=== PATIENT | female | born 1955 | race Caucasian/White ===

== ENCOUNTER 2022-11-25 08:56 | Outpatient (OUT) | payer MEDICARE, OTHER, SELFPAY ==
--- NOTE | 2022-11-25 09:30 | VEIN_ITS ---
Patient: ALBANIA CESAR Exam Date: 11/25/2022 : 1955 Gender:F Ordering : Non-Staff Physician Admission #: [id number] Family : Order #: [id number] CLICK HERE TO VIEW EXAM RADIOLOGY REPORT PROCEDURE: FACILITY EST COMPREHENSIVE VEIN CENTER - OFFICE VISIT INITIAL COMPARISON: None. PROGRESS NOTES: [age] year old female who presents with a 40 year history of leg pain, swelling, muscle cramping, edema, dilated veins. The patient's left leg symptoms are worse than the right. There has been a progression of symptoms over time. This increases with prolonged leg dependency. The patient describes an improvement with rest and elevation. The patient denies any signs and symptoms to suggest arterial ischemia. The patient describes a family history of varicose veins on maternal side. The patient has drinking and smoking history of occasional alcohol consumption and remote history of smoking. Patient has a past medical history significant for obesity, cellulitis and abscess, lymphedema bilateral legs. The patient denies a history of deep venous thrombus or pulmonary embolus. See separate history and physical for medication list. No prior treatment for varicose or spider veins. Prior treatment included use of compression stockings. After review of nurse notes, history and physical exam I discussed at length the pathophysiology of venous hypertension and possible treatments, therapies and strategies available. We discussed at length the importance of elevating the lower extremities above the level of the heart, increased physical activity and compression stocking use. Ultrasound venous reflux study performed today was discussed at length with the patient. The report demonstrates abnormally dilated and incompetent great saphenous and anterior accessory saphenous veins bilaterally. Dilated incompetent nailing machine feeder veins and numerous incompetent branch saphenous varicosities bilaterally. PHYSICAL EXAM: The right leg demonstrates multiple varicosities, a few spider veins, no ulceration, extreme edema, no skin discoloration. The left leg demonstrates multiple varicosities, a few spider veins, distal lower extremity ulceration, extreme edema, significant distal lower extremity skin discoloration. Both thighs, legs and feet were symmetrically warm to the touch. Good posterior tibial and dorsalis pedis pulses were present bilaterally. IMPRESSION: 1. Bilateral lower extremity venous insufficiency 2. Bilateral lower extremity varicose veins 3. Marked bilateral lower extremity subcutaneous edema 4. No flow significant arterial disease 5. CEAP: C5, EC, AP, DC PLAN: 1. Continued use of compression stockings 2. Elevated legs and increased physical activity symptomatic relief 3. Patient recently began working with lymphedema clinic. We will out time for some success with the lymphedema clinic to decreased size of legs and patient's extreme edema prior to attempting any vein procedures due to current limited visibility of the veins. 4. Endovenous laser ablation of bilateral great saphenous and anterior accessory saphenous veins. Endovenous laser ablation of distal left lower extremity nailing machine feeder vein(s). Microfoam chemical ablation of incompetent branch saphenous varicosities. Sclerotherapy. Nurse notes, history and physical were reviewed and confirmed, see attached forms. The nurse was present throughout the physical exam and consultation Dictated by: Ronald Millard M.D. on 11/25/2022 at 12:27 Approved by: Ronald Millard M.D. on 11/25/2022 at 12:39
--- NOTE | 2022-11-25 09:30 | VEIN_ITS ---
Patient: ALBANIA CESAR Exam Date: 11/25/2022 : 1955 Gender:F Ordering : Non-Staff Physician Admission #: [id number] Family : Order #: [id number] CLICK HERE TO VIEW EXAM RADIOLOGY REPORT PROCEDURE: VC EXT VENOUS REFLUX LINA LMTD COMPARISON: None. INDICATIONS: Pain due to varicose veins of bilateral legs I83.813 TECHNIQUE: Duplex imaging of the lower extremity to assess the deep and superficial venous system for the presence of deep or superficial venous incompetence and to document the location and severity of disease. The study includes evaluation of the great saphenous vein (GSV), anterior accessory saphenous vein (AASV) and small saphenous vein (SSV). Patient scanned in reverse Trendelenburg and standing. FINDINGS: RIGHT LOWER EXTREMITY: Saphenofemoral Junction Reflux: Yes 11.0mm 4.0 sec GSV: Diam (mm) Reflux/ Time (sec) Proximal Thigh 9.0 Yes 4.2 Mid Thigh 7.2 Yes 3.0 Distal Thigh 6.8 Yes 2.0 Prox Calf 3.2 Yes 1.2 Mid Calf 3.5 No Saphenopopliteal Junction Reflux: 2.7mm No SSV: Proximal Calf 1.8 Yes 1.1 Mid Calf N/A AASV: Proximal Thigh 6.2 Yes 4.2 Mid Thigh 8.3 Yes 2.9 Distal Thigh Thrombi: No acute or chronic thrombus visualized Compressibility: Normal Flow: Normal Preforator: Dist/med calf 3.4mm with 0s reflux. Difficult to visualize due to marked edema Tech Note: Incompetent SFJ, GSV, and AASV. Unable to follow SSV due to size and edema. Patent varicose vein prox/med calf 12.7mm with 2.0s reflux. Patent varicose vein prox/post calf 4.2mm with 0.9s reflux. Patent varicose vein dist/med thigh 10.2mm with 2.7s reflux. LEFT LOWER EXTREMITY: Saphenofemoral Junction Reflux: Yes 12.8 mm 3.8 sec GSV: Diam (mm) Reflux/Time (sec) Proximal Thigh 9.7 Yes 3.0 Mid Thigh 10.7 Yes 2.4 Distal Thigh 8.8 No Prox Calf 8.3 No Mid Calf 6.4 Yes 2.7 Saphenopopliteal Junction Relux: 4.4 mm No SSV: Proximal Calf N/A Mid Calf N/A AASV: Proximal Thigh 11.3 Yes 1.5 Mid Thigh 8.6 Yes 2.3 Distal Thigh Thrombi: No acute or chronic thrombus visualized Compressibility: Normal Flow: 1.8s reflux visualized at CFV Senior Finance Manager:Dist/med calf 6.2mm with 0.8s reflux. Dist/med calf 5.7mm with 1.4s reflux. Mid/med calf 6.7mm with 2.0s reflux. Tech Note: Incompetent SFJ, GSV, and AASV. Unable to follow SSV due to size and edema. Patent varicose vein prox/med calf 4.7mm with 2.4s reflux. Patent varicose vein medial knee 9.3mm with 1.9s reflux. Patent varicose vein mid/ant thigh 7.8mm with 1.6s reflux. CONCLUSION: 1. Limited examination due to patient body habitus and marked subcutaneous edema. 2. Abnormally dilated and incompetent great saphenous and anterior accessory saphenous veins bilaterally. 3. 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 Dictated by: Ronald Millard M.D. on 11/25/2022 at 10:29 Approved by: Ronald Millard M.D. on 11/25/2022 at 12:26
== END 2022-11-25 08:57 ==
DX: I89.0 Lymphedema, not elsewhere classified (principal); I83.893 Varicose veins of bilateral lower extremities with other complications; I83.813 Varicose veins of bilateral lower extremities with pain
CPT/HCPCS: 93970; G0463

== ENCOUNTER 2023-01-27 07:35 | Outpatient (OUT) | payer MEDICARE, OTHER, SELFPAY ==
--- NOTE | 2023-01-27 07:37 | VEIN_ITS ---
The [address] [address] Patient Name: ALBANIA CESAR MRN: [id number] date: 1955 Sex: F Assigned Patient Location: Current Patient Location: Accession/Order Number: [id number] Exam Date: 01/27/2023 07:37 Report Date: 01/27/2023 09:50 At the request of: JOYA CSHRADER Procedure: VC Endovenous Ablation 1VeinLT EXAMINATION: VC Endovenous Ablation 1VeinLT HISTORY: I83.813 Pain due to varicose veins of bilateral leg veins The risks and benefits of the procedure had been previously discussed, and were rediscussed at length. Informed written consent was obtained. Edison Martin RN, Aissatou Dawson RN, and Asha Carr RDMS, RVT assisted. Time out procedure was performed. The left lower extremity was prepared and draped in the usual sterile fashion to allow knee flexion in the sterile field. Duplex ultrasound probe was draped in a sterile cover, sterile transmission gel was used. Venous mapping was performed with the areas of dilation and large tributaries marked. The total length was 25 cm from the entry distal thigh to 3 cm below the Saphenofemoral junction. The diameter of the great saphenous vein ranged from 10.7 mm. A 30 gauge needle and 1% buffered lidocaine was used to anesthetize the entry site. A 4 mm incision was made with a scalpel and the saphenous vein was entered percutaneously under direct ultrasound guidance with a micropuncture set, a single stick was successful in gaining access. A micro-guide wire was inserted and the needle removed. A micro-set including a dilator was inserted over the microwire and the needle and dilator were removed. A guide wire was inserted through the micro-set and guided through the saphenous vein to the saphenofemoral junction. The dilator was removed and an introducer sheath was inserted over the wire until the end of the sheath entered the saphenofemoral junction. The dilator and wire were removed and the 600 micron fiber was introduced and placed and positioned so that it extended beyond the sheath and was 3 cm distal to the saphenofemoral or saphenopopliteal junction. Final position of the fiber was determined by ultrasound guidance and duplex imaging. Karinacent anesthetic was delivered by ultrasound guidance. 300 cc of fluid was delivered along the entire course of the saphenous vein. The solution consisted of 1000 cc of normal saline with 40 mL of 1% lidocaine and 20 mL of sodium bicarbonate. A final positioning check was made. The energy source was turned on by means of the foot pedal and the fiber and sheath were withdrawn. The total number of Joules delivered was 1089. The laser was active for 136 seconds under continuous pulse, average laser use of 8 J. Laser start time 8:46 AM, 01/27/2023. Laser stop time 8:49 AM, 01/27/2023. A duplex ultrasound revealed compressibility and flow at the saphenofemoral junction immediately after the procedure. Hemostasis at the access site was achieved. The skin incision of the saphenous vein was closed with a 4 x 4. A compression stocking was applied. Postop instructions were given. A follow up appointment was recommended and scheduled. The patient tolerated the procedure well. Electronically authenticated by: FAIZA DUNLAP Date: 01/27/2023 09:50
[2023-01-27] MEDS: 0.9 % SODIUM CHLORIDE 500 ML, LIDOCAINE HCL 20 ML, SODIUM BICARBONATE 10 MEQ INJ (08:29)
[2023-01-27] MEDS: LIDOCAINE HCL 10 ML, SODIUM BICARBONATE 1 MEQ INJ (08:30)
== END 2023-01-27 07:36 | disposition home or self-care (01) ==
LOC: VC 07:36
PROVIDERS: Visit Provider Radiology Diagnostic Radiology
DX: I83.813 Varicose veins of bilateral lower extremities with pain (principal)
CPT/HCPCS: 36478

== ENCOUNTER 2023-02-03 14:25 | Outpatient (OUT) | payer MEDICARE, OTHER, SELFPAY ==
--- NOTE | 2023-02-03 14:30 | VEIN_ITS ---
Patient: ALBANIA CESAR Exam Date: 02/03/2023 : 1955 Gender:F Ordering : DR JOYA SCHRADER M.D. Admission #: [id number] Family : Order #: [id number] CLICK HERE TO VIEW EXAM RADIOLOGY REPORT PROCEDURE: VC EXT VENOUS LT LIMITED COMPARISON: None. INDICATIONS: I80.02 Phlebitis of superficial veins of lt lower extremity TECHNIQUE: Lower extremity pierre scale and Duplex Doppler evaluation of the deep venous system from the inguinal ligament through the calf veins. FINDINGS: REGION: Left lower extremity. THROMBI: Negative for DVT. Heat induced thrombus visualized 4.3cm from the SFJ. The heat induced thrombus extends from groin to mid thigh. COMPRESSIBILITY: Non-compressible segments. FLOW: Areas of no flow. OTHER: CONCLUSION: 1. Successful post ablation occlusion of left great saphenous vein. Dictated by: Ronald Millard M.D. on 02/03/2023 at 15:07 Approved by: Ronald Millard M.D. on 02/03/2023 at 15:08
--- NOTE | 2023-02-03 14:30 | VEIN_ITS ---
Patient: ALBANIA CESAR Exam Date: 02/03/2023 : 1955 Gender:F Ordering : DR JOYA SCHRADER M.D. Admission #: [id number] Family : Order #: [id number] CLICK HERE TO VIEW EXAM RADIOLOGY REPORT PROCEDURE: FACILITY EST LMTD VEIN CENTER - OFFICE VISIT FOLLOW UP COMPARISON: None. PROGRESS NOTES: The patient reports improvement in leg symptoms. There has been interval reduction in varicosities. The patient has followed our recommendations to walk 20-30 minutes once or twice per day since the procedure. Physical exam demonstrates decrease in varicosities of the leg. Persistent superficial varicosities and leg wounds are identified along the lower legs bilaterally. Review of the ultrasound performed the same day demonstrates occlusive thrombus extending throughout the treated vein(s), see separate report, consistent with a successful ablation. No thrombus extending into or beyond the saphenofemoral junction. The patient expressed a desire to proceed with treatment of remaining dilated incompetent superficial veins. The patient was informed that treatment was a process and would require several procedures/sessions. VEIN/ Facility EST LMTD IMPRESSION: 1. Successful ablation of the left great saphenous vein(s). 2. Persistent incompetent superficial veins and large left lower extremity open wounds and bilateral leg symptoms. PLAN: Endovenous laser ablation of left anterior accessory saphenous vein. Nurse notes, history and physical were reviewed and confirmed, see attached forms. The nurse was present throughout the physical exam and consultation Dictated by: Ronald Millard M.D. on 02/03/2023 at 15:08 Approved by: Ronald Millard M.D. on 02/03/2023 at 15:09
== END 2023-02-03 14:26 | disposition home or self-care (01) ==
LOC: VC 14:25
PROVIDERS: PCP Radiology Diagnostic Radiology; Visit Provider Radiology Diagnostic Radiology
DX: I80.02 Phlebitis and thrombophlebitis of superficial vessels of left lower extremity (principal)
CPT/HCPCS: 93971; G0463

== ENCOUNTER 2023-02-24 09:49 | Outpatient (OUT) | payer MEDICARE, OTHER, SELFPAY ==
--- NOTE | 2023-02-24 09:50 | VEIN_ITS ---
The [address] [address] Patient Name: ALBANIA CESAR MRN: [id number] date: 1955 Sex: F Assigned Patient Location: Current Patient Location: Accession/Order Number: [id number] Exam Date: 02/24/2023 10:22 Report Date: 02/24/2023 11:45 At the request of: JOYA SCHRADER Procedure: VC Endovenous Ablation 1VeinLT EXAMINATION: VC Endovenous Ablation 1VeinLT HISTORY: I83.813 Painful varicose veins of bilat lower extremities The risks and benefits of the procedure had been previously discussed, and were rediscussed at length. Informed written consent was obtained. Aissatou Dawson RN and Asha Carr RDMS, RVT assisted. Time out procedure was performed. The left lower extremity was prepared and draped in the usual sterile fashion to allow knee flexion in the sterile field. Duplex ultrasound probe was draped in a sterile cover, sterile transmission gel was used. Venous mapping was performed with the areas of dilation and large tributaries marked. The total length was 10 cm from the entry upper thigh to 3 cm below the Saphenofemoral junction. The diameter of the left anterior accessory saphenous saphenous vein ranged from 9 mm. A 30 gauge needle and 1% buffered lidocaine was used to anesthetize the entry site. A 4 mm incision was made with a scalpel and the saphenous vein was entered percutaneously under direct ultrasound guidance with a micropuncture set, a single stick was successful in gaining access. A micro-guide wire was inserted and the needle removed. A micro-set including a dilator was inserted over the microwire and the needle and dilator were removed. A guide wire was inserted through the micro-set and guided through the saphenous vein to the saphenofemoral junction. The dilator was removed and an introducer sheath was inserted over the wire until the end of the sheath entered the saphenofemoral junction. The dilator and wire were removed and the 600 micron fiber was introduced and placed and positioned so that it extended beyond the sheath and was 3 cm distal to the saphenofemoral or saphenopopliteal junction. Final position of the fiber was determined by ultrasound guidance and duplex imaging. Tumescent anesthetic was delivered by ultrasound guidance. 75 cc of fluid was delivered along the entire course of the saphenous vein. The solution consisted of 1000 cc of normal saline with 40 mL of 1% lidocaine and 20 mL of sodium bicarbonate. A final positioning check was made. The energy source was turned on by means of the foot pedal and the fiber and sheath were withdrawn. The total number of Joules delivered was 499. The laser was active for 62 seconds under continuous pulse, average laser use of 8 J. Laser start time 10:47 AM, 02/24/2023. Laser stop time 10:48 AM, 02/24/2023. A duplex ultrasound revealed compressibility and flow at the saphenofemoral junction immediately after the procedure. Hemostasis at the access site was achieved. The skin incision of the saphenous vein was closed with a 4 x 4. A compression stocking was applied. Postop instructions were given. A follow up appointment was recommended and scheduled. The patient tolerated the procedure well. Electronically authenticated by: FAIZA DUNLAP Date: 02/24/2023 11:45
[2023-02-24] MEDS: 0.9 % SODIUM CHLORIDE 500 ML, LIDOCAINE HCL 20 ML, SODIUM BICARBONATE 10 MEQ INJ (10:36)
[2023-02-24] MEDS: LIDOCAINE HCL 10 ML, SODIUM BICARBONATE 1 MEQ INJ (10:36)
== END 2023-02-24 09:50 | disposition home or self-care (01) ==
LOC: VC 09:49
PROVIDERS: PCP Radiology Diagnostic Radiology; Visit Provider Radiology Diagnostic Radiology
DX: I83.813 Varicose veins of bilateral lower extremities with pain (principal)
CPT/HCPCS: 36478

== ENCOUNTER 2023-03-03 11:07 | Outpatient (OUT) | payer MEDICARE, OTHER, SELFPAY ==
--- NOTE | 2023-03-03 | VEIN_ITS ---
Patient: ALBANIA CESAR Exam Date: 03/03/2023 : 1955 Gender:F Ordering : DR MARINO SCHRADER M.D. Admission #: [id number] Family : Order #: [id number] CLICK HERE TO VIEW EXAM RADIOLOGY REPORT PROCEDURE: VC EXT VENOUS LT LIMITED COMPARISON: VC EXT VENOUS LT LIMITED, 02/03/2023. INDICATIONS: I80.02 Phlebitis of superficial veins of lt lower extremity TECHNIQUE: Lower extremity pierre scale and Duplex Doppler evaluation of the deep venous system from the inguinal ligament through the calf veins. FINDINGS: REGION: Left lower extremity. THROMBI: Negative for DVT. Heat induced thrombus visualized 2.5cm from the SFJ. The heat induced thrombus extends from groin to mid thigh. COMPRESSIBILITY: Non-compressible segments corresponding to thrombus. FLOW: Absent flow corresponding to thrombus CONCLUSION: Post ablation occlusion the left anterior accessory saphenous vein with heat induced thrombus 2.5 cm. from the saphenofemoral junction Dictated by: Marino Schrader MD on 03/03/2023 at 11:34 Approved by: Marino Schrader MD on 03/03/2023 at 11:38
--- NOTE | 2023-03-03 | VEIN_ITS ---
Patient: ALBANIA CESAR Exam Date: 03/03/2023 : 1955 Gender:F Ordering : DR MARINO SCHRADER M.D. Admission #: [id number] Family : Order #: [id number] CLICK HERE TO VIEW EXAM RADIOLOGY REPORT PROCEDURE: [facility] EST LMTD VEIN CENTER - OFFICE VISIT FOLLOW UP COMPARISON: [facility] EST TD, 02/03/2023. PROGRESS NOTES: The patient reports no significant pain following intravenous laser ablation of the left anterior accessory saphenous vein. The patient did wear her compression stockings. The patient has tried to walk , she has limited mobility due to obesity. Physical exam demonstrates extensive erythema warmth skin thickening and skin flaking below the knee on both legs. Extensive subcutaneous edema. Treated left great and anterior accessory saphenous veins cannot be palpated, likely related to the patient's obesity. No new active ulceration is in the region of treatment. Review of the ultrasound performed the same day demonstrates occlusive thrombus extending throughout the treated left anterior accessory saphenous vein with heat induced thrombus 2 mm from the saphenofemoral junction.. The patient expressed a desire to proceed with treatment of incompetent right great saphenous and anterior accessory saphenous veins with intravenous laser ablation. VEIN/[facility] EST LMTD IMPRESSION: 1. Successful ablation of the left anterior accessory saphenous vein 2. Persistent incompetent right great and anterior accessory saphenous veins. PLAN: Endovenous laser ablation right great saphenous vein Nurse notes, history and physical were reviewed and confirmed, see attached forms. The nurse was present throughout the physical exam and consultation Dictated by: Marino Schrader MD on 03/03/2023 at 11:43 Approved by: Marino Schrader MD on 03/03/2023 at 11:48
== END 2023-03-03 11:08 | disposition home or self-care (01) ==
LOC: VC 11:07
PROVIDERS: PCP Radiology Diagnostic Radiology; Visit Provider Radiology Diagnostic Radiology
DX: I80.02 Phlebitis and thrombophlebitis of superficial vessels of left lower extremity (principal)
CPT/HCPCS: 93971; G0463

== ENCOUNTER 2023-03-09 18:46 | Emergency (ER) | payer MEDICARE, OTHER, SELFPAY ==
[2023-03-09 18:54] VITALS: BP 149/91; PULSE 87; RESP 18; TEMP 36.8; O2SAT 98; BMI 53.9
--- NOTE | 2023-03-09 19:36 | XR_ITS ---
The [address] [address] Patient Name: ALBANIA CESAR MRN: [id number] date: 1955 Sex: F Assigned Patient Location: ER Current Patient Location: ER Accession/Order Number: [id number] Exam Date: 03/09/2023 20:30 Report Date: 03/09/2023 20:52 At the request of: AURELIO GARZA Procedure: XR foot RT min 3V EXAM: XR foot RT min 3V HISTORY: heel wound COMPARISON: None. TECHNIQUE: Review FINDINGS: IMPRESSION: Severe subcutaneous soft tissue edema of the dorsal aspect of the foot. This is superimposed on morbid obesity. No visualized fracture, dislocation, subluxation or osseous lesion. Joint spaces are unremarkable. Electronically authenticated by: JOYA KABA Date: 03/09/2023 20:52
--- NOTE | 2023-03-09 19:40 | ED_ITS ---
HPI - General Adult General Chief complaint: Skin/Abscess/Foreign Body Stated complaint: open wound on foot Time Seen by Provider: 03/09/23 19:29 Source: patient Mode of arrival: Wheelchair History of Present Illness HPI narrative: patient is a 67-year-old female who presents to the emergency department with family member for the evaluation of an open wound to the heel of the right foot which has been present since last week. Patient has a long-standing history of chronic cellulitis to her lower extremities as well as lymphedema. She was being seen by the currency exchange specialist at [facility]. She states that she will no longer go to this currency exchange specialist because she is not happy with her care. she states she has been taking care of her own wounds to the bilateral calves and lower legs. She is concerned only for the ulcerated area to the heel of the right foot as it is very painful to walk on. She has had no fevers or vomiting. She states that specialist have told her in the past that she should have her legs debris did, she is not willing to miss work to have this procedure done. Related Data Previous Rx's Medication Instructions Recorded cephalexin 500 mg capsule 500 mg PO Q8H 10 days #30 caps 03/09/23 ondansetron 4 mg disintegrating 4 mg PO Q6H PRN nausea and 03/09/23 tablet vomiting #12 tabs oxycodone-acetaminophen 5 mg-325 1 tab PO Q6H PRN pain #15 tabs 03/09/23 mg tablet (Percocet) sulfamethoxazole 800 1 tab PO BID 10 days #20 tabs 03/09/23 mg-trimethoprim 160 mg tablet (Bactrim DS) Allergies Allergy/AdvReac Type Severity Reaction Status Date / Time No Known Drug Allergies Allergy Verified 03/09/23 19:00 Review of Systems ROS Constitutional Denies: fever or chills Cardiovascular Denies: chest pain Respiratory Denies: shortness of breath or cough Gastrointestinal Denies: nausea or vomiting Musculoskeletal Denies: back pain or neck pain Integumentary/Breast Reports: skin pain, skin tenderness and skin swelling; Denies: rash Neurological Denies: headache Hematologic/Lymphatic Denies: easy bruising Allergic/Immunologic Denies: hives Exam Narrative Exam Narrative: Gen.: Awake, alert, in no distress Head: Normocephalic, atraumatic ENT: Moist mucous membranes Respiratory: No respiratory distress Extremities: Moves extremities equally, significant lymphedema noted to the bilateral lower extremities with erythematous seeping cellulitis of the legs and thickened skin. 1 cm open ulcerated area to the heel with no active drainage. Early ulcer/skin breakdown of the right 4th toe, plantar aspect. There is no deep ulcer or subcutaneous tissue exposure to this toe. Psych: Normal mood and affect Neuro: No focal neuro deficit Constitutional Vital Signs, click to edit/add: Last Vital Signs Temp 98.2 F 03/09/23 18:54 Pulse 87 03/09/23 18:54 Resp 18 03/09/23 18:54 BP 149/91 H 03/09/23 18:54 Pulse Ox 98 03/09/23 18:54 O2 Del Method Room Air 03/09/23 20:40 Course Vital Signs Vital signs: Vital Signs Temperature 98.2 F 03/09/23 18:54 Pulse Rate 87 03/09/23 18:54 Respiratory Rate 18 03/09/23 18:54 Blood Pressure 149/91 H 03/09/23 18:54 Pulse Oximetry 98 03/09/23 18:54 Oxygen Delivery Method Room Air 03/09/23 18:54 Temperature 98.2 F 03/09/23 18:54 Pulse Rate 87 03/09/23 18:54 Respiratory Rate 18 03/09/23 18:54 Blood Pressure 149/91 H 03/09/23 18:54 Pulse Oximetry 98 03/09/23 18:54 Oxygen Delivery Method Room Air 03/09/23 20:40 Medical Decision Making MDM Narrative Medical decision making narrative: x-rays of the right foot with no evidence of osteomyelitis or abscess. Lab studies with no evidence of sepsis. Patient was treated with IV Zosyn in the Emergency Room for antibiotic coverage. She had significant improvement with Dilaudid and Zofran. I discussed with the patient the likelihood of failure of outpatient therapy and suggested strongly that she be admitted to the hospital for IV antibiotics and wound care evaluation. She stated that she will not be admitted but is agreeable to outpatient follow-up with the wound care clinic and will take antibiotics. She was encouraged to elevate her legs, return to the Emergency Room if symptoms change or worsen. She is started on Bactrim, Keflex as well as pain medication and Zofran. Medical Records Medical records reviewed: Yes I reviewed the patient's medical records Lab Data Lab results reviewed: Yes I reviewed the patient's lab results Labs: Lab Results 03/09/23 Range/Units 20:05 WBC 10.2 (4.0-11.0) 10^3/uL RBC 4.87 (4.20-5.40) 10^6/uL Hgb 12.8 (12.0-16.0) g/dL Hct 41.9 (36.0-48.0) % MCV 86.0 (81.0-99.0) fL MCH 26.3 L (26.7-34.0) pg MCHC 30.5 (29.9-35.2) g/dL RDW 16.0 H (11.0-15.0) % Plt Count 357 (150-450) 10^3/uL MPV 9.6 (9.5-13.5) fL Neut % (Auto) 78.6 H (43.0-75.0) % Lymph % (Auto) 8.4 L (20.5-60.0) % [place] % (Auto) 8.4 (1.7-12.0) % Eos % (Auto) 3.5 (0.9-7.0) % Baso % (Auto) 0.6 (0.2-2.0) % Neut # (Auto) 8.0 H (1.4-6.5) 10^3/uL Lymph # (Auto) 0.9 L (1.2-3.8) 10^3/uL [place] # (Auto) 0.9 H (0.3-0.8) 10^3/uL Eos # (Auto) 0.4 (0.0-0.7) 10^3/uL Baso # (Auto) 0.1 (0.0-0.1) 10^3/uL Abs Immat Gran (auto) 0.05 H (0.00-0.03) 10^3/uL Imm/Tot Granulo (auto) 0.5 (0.0-0.5) % ESR 109 H (<=30) mm/hr Sodium 136 (136-145) mmol/L Potassium 4.5 (3.5-5.1) mmol/L Chloride 105 (98-107) mmol/L Carbon Dioxide 23.1 (21.0-32.0) mmol/L Anion Gap 12.4 BUN 38.0 H (7.0-18.0) mg/dL Creatinine 1.05 H (0.55-1.02) mg/dL Est GFR ( Amer) >60 (>=60) Est GFR (Non-Af Amer) 52 L (>=60) BUN/Creatinine Ratio 36.2 Glucose 100 (74-106) mg/dL Lactate 0.8 (0.4-2.0) mmol/L Calcium 9.6 (8.5-10.1) mg/dL Total Bilirubin 0.2 (0.2-1.0) mg/dL AST 48 H (15-37) U/L ALT 49 (14-59) U/L Alkaline Phosphatase 125 H (46-116) U/L C-Reactive Protein 5.4 H (<=1.0) mg/dL Total Protein 8.4 H (6.4-8.2) g/dL Albumin 3.3 L (3.4-5.0) g/dL Globulin 5.1 g/dL Albumin/Globulin Ratio 0.6 Discharge Plan Discharge Chief Complaint: Skin/Abscess/Foreign Body Clinical Impression: Open wound of right foot, Bilateral lower leg cellulitis Patient Disposition: Home, Self-Care Time of Disposition Decision: 21:14 Condition: Good Prescriptions / Home Meds: New sulfamethoxazole-trimethoprim [Bactrim DS] 800-160 mg tablet 1 tab PO BID 10 Days Qty: 20 0RF oxycodone-acetaminophen [Percocet] 5-325 mg tablet 1 tab PO Q6H PRN (Reason: pain) Qty: 15 0RF Rx Instructions: DX: L03.90 cephalexin 500 mg capsule 500 mg PO Q8H 10 Days Qty: 30 0RF ondansetron 4 mg tablet,disintegrating 4 mg PO Q6H PRN (Reason: nausea and vomiting) Qty: 12 0RF Instructions: Wound Infection (ED), Cellulitis (ED), Acute Wounds (ED) Additional Instructions: [facility] wound care: [phone] Stand Alone Forms: Portal Instructions Referrals: Marnio Aviles MD [Primary Care Provider] - 1 week Evaristo Izquierdo DPM [Physician] - 1 week Discharge Date/Time: 03/09/23 21:49
[2023-03-09] MEDS: ONDANSETRON PF 4 MG/2 ML VIAL IV (20:19)
[2023-03-09] MEDS: PIPERACILLIN SODIUM/TAZOBACTAM 4.5 GM in 0.9 % SODIUM CHLORIDE 50 ML IV (20:19)
[2023-03-09] MEDS: HYDROMORPHONE HCL 0.5 MG/0.5 ML SYRINGE 1 MG IV (20:19)
[2023-03-09 20:30] LABS: Basophils Absolute Auto 0.1 10^3/uL (0.0-0.1); Basophils Percent Auto 0.6 % (0.2-2.0); Eosinophils Absolute Auto 0.4 10^3/uL (0.0-0.7); Eosinophils Percent Auto 3.5 % (0.9-7.0); Hematocrit 41.9 % (36.0-48.0); Hemoglobin 12.8 g/dL (12.0-16.0); Immature Granulocytes Abs Auto 0.05 10^3/uL (0.00-0.03); Immature Granulocytes Pct Auto 0.5 % (0.0-0.5); Lymphocytes Absolute Auto 0.9 10^3/uL (1.2-3.8); Lymphocytes Percent Auto 8.4 % (20.5-60.0); Mean Corpuscular HGB Conc 30.5 g/dL (29.9-35.2); Mean Corpuscular Hemoglobin 26.3 pg (26.7-34.0); Mean Platelet Volume 9.6 fL (9.5-13.5); Monocytes Absolute Auto 0.9 10^3/uL (0.3-0.8); Monocytes Percent Auto 8.4 % (1.7-12.0); Neutrophils Percent Auto 78.6 % (43.0-75.0); Platelet Count 357 10^3/uL (150-450); Red Blood Count 4.87 10^6/uL (4.20-5.40); White Blood Count 10.2 10^3/uL (4.0-11.0)
[2023-03-09 20:42] LABS: Lactate/Lactic Acid 0.8 mmol/L (0.4-2.0)
[2023-03-09 20:44] LABS: Erythrocyte Sedimentation Rate 109 mm/hr (<=30)
[2023-03-09 20:51] LABS: Albumin Globulin Ratio 0.6; Albumin Level 3.3 g/dL (3.4-5.0); Alkaline Phosphatase 125 U/L (46-116); Anion Gap 12.4; Aspartate Amino Transferase 48 U/L (15-37); Bilirubin Total 0.2 mg/dL (0.2-1.0); C Reactive Protein 5.4 mg/dL (<=1.0); Calcium 9.6 mg/dL (8.5-10.1); Carbon Dioxide 23.1 mmol/L (21.0-32.0); Chloride 105 mmol/L (98-107); Estimated GFR (African America >60 (>=60); Estimated GFR (Non-African Ame 52 (>=60); Globulin 5.1 g/dL; Glucose 100 mg/dL (74-106); Potassium 4.5 mmol/L (3.5-5.1); Sodium 136 mmol/L (136-145); Total Protein 8.4 g/dL (6.4-8.2)
[2023-03-09 21:19] LABS: BUN Creatinine Ratio 36.2
[2023-03-09 21:20] LABS: Alanine Aminotransferase 49 U/L (14-59)
[2023-03-09] MEDS: OXYCODONE HCL/ACETAMINOPHEN 5MG/325MG 2 TAB PO (21:38)
--- NOTE | 2023-03-09 21:40 | PC.NURSE ---
patient came in for ulcer on right heel and discoloration to great, 2nd, 3rd toe on right foot bluish purple, cool to touch, cap refill <3, pulses present. patient was seeing wound care at [facility] but now refuses to go back because she states staff was rude and torturing her. does not want other wounds addressed, states she is switching wound care ffacilities and will discuss them with them. extreme swellling to bilateral calfs and feet. has known bilateral cellulitis to calfs. weeping.. does not want dressings taken off.
== END 2023-03-09 21:49 | disposition home or self-care (01) ==
PROVIDERS: Physician Assistant; Emergency Provider Internal Medicine; PCP Radiology Diagnostic Radiology
DX: L03.116 Cellulitis of left lower limb (principal); L03.115 Cellulitis of right lower limb; S91.301A Unspecified open wound, right foot, initial encounter
CPT/HCPCS: 36415; 73630; 80053; 83605; 85025; 85652; 86140; 87040; 96374; 96375; 99285; J1170

== ENCOUNTER 2023-03-17 13:32 | Outpatient (OUT) | payer MEDICARE, OTHER, SELFPAY ==
--- NOTE | 2023-03-17 13:33 | VEIN_ITS ---
[address] [address] Patient Name: ALBANIA CESAR MRN: [id number] date: 1955 Sex: F Assigned Patient Location: Current Patient Location: Accession/Order Number: [id number] Exam Date: 03/17/2023 13:35 Report Date: 03/17/2023 15:14 At the request of: JOYA SCHRADER Procedure: VC Endovenous Ablation 1VeinRT EXAMINATION: VC Endovenous Ablation 1VeinRT HISTORY: Pain due to varicose veins of bilateral legs I83.813 COMPARISON: No relevant comparison available. TECHNIQUE: The risks and benefits of the procedure had been previously discussed, and were rediscussed at length. Informed written consent was obtained. Aliza Carr and Edison Martin assisted. Time out procedure was performed. The right lower extremity was prepared and draped in the usual sterile fashion to allow knee flexion in the sterile field. Duplex ultrasound probe was draped in a sterile cover, sterile transmission gel was used. Venous mapping was performed with the areas of dilation and large tributaries marked. The total length was 30 cm from the entry mid to distal thigh to 3 cm below the saphenofemoral junction. The diameter of the greater saphenous vein ranged from 7-9 mm. A 30 gauge needle and 1% buffered lidocaine was used to anesthetize the entry site. A 4 mm incision was made with a scalpel and the saphenous vein was entered percutaneously under direct ultrasound guidance with a micropuncture set, a single stick was successful in gaining access. A micro-guide wire was inserted and the needle removed. A micro-set including a dilator was inserted over the microwire and the needle and dilator were removed. A 0.018 guide wire was inserted through the micro-set and threaded through the saphenous vein to the saphenofemoral junction. The dilator was removed and an introducer sheath was inserted over the wire until the end of the sheath entered the saphenofemoral junction. The dilator and wire were removed and the 600 micron fiber was introduced and placed and positioned so that it extended beyond the sheath and was 3 cm peripheral to the saphenofemoral femoral junction. Final position of the fiber was determined by ultrasound guidance and duplex imaging. Tumescent anesthetic was delivered by ultrasound guidance. 300 cc of fluid was delivered along the entire course of the saphenous vein. The solution consisted of 1000 cc of normal saline with 40 mL of 1% lidocaine and 20 mL of sodium bicarbonate. A final positioning check was made. The energy source was turned on by means of the foot pedal and the fiber and sheath were withdrawn. The total number of Joules delivered was 1555. The laser was active for 194 seconds under continuous pulse, average laser use of 8 J. Laser start time 14:24 03/17/2023 . Laser stop time 1426 03/17/2023 . A duplex ultrasound revealed compressibility and flow at the saphenofemoral junction immediately after the procedure. Hemostasis at the access site was achieved. The skin incision of the saphenous vein was closed with a 4 x 4. A compression stocking was applied. Postop instructions were given. A follow up appointment was recommended and scheduled. The patient tolerated the procedure well and was discharged in good condition . VEIN/VC Endovenous Ablation 1VeinRT IMPRESSION: Technically successful endovenous laser ablation right great saphenous vein Electronically authenticated by: JOYA SCHRADER Date: 03/17/2023 15:14
[2023-03-17] MEDS: LIDOCAINE HCL 1% 100 MG/10 ML MDV INJ (14:20)
[2023-03-17] MEDS: 0.9 % SODIUM CHLORIDE 500 ML, LIDOCAINE HCL 20 ML, SODIUM BICARBONATE 10 MEQ INJ (14:21)
== END 2023-03-17 13:33 | disposition home or self-care (01) ==
LOC: VC 13:32
PROVIDERS: PCP Radiology Diagnostic Radiology; Visit Provider Radiology Diagnostic Radiology
DX: I83.813 Varicose veins of bilateral lower extremities with pain (principal)
CPT/HCPCS: 36478

== ENCOUNTER 2023-03-24 11:22 | Outpatient (OUT) | payer MEDICARE, OTHER, SELFPAY ==
--- NOTE | 2023-03-24 11:24 | VEIN_ITS ---
Patient: ALBANIA CESAR Exam Date: 03/24/2023 : 1955 Gender:F Ordering : DR MARINO SCHRADER M.D. Admission #: [id number] Family : Order #: [id number] CLICK HERE TO VIEW EXAM RADIOLOGY REPORT PROCEDURE: FACILITY EST LMTD [facility]IN [facility] - OFFICE VISIT FOLLOW UP COMPARISON: FACILITY EST LMTD, 03/03/2023. FACILITY EST LMTD, 02/03/2023. PROGRESS NOTES: The patient reports no significant problems following intravenous laser ablation of the right great saphenous vein. The patient did not require oral analgesics. The patient is partially compliant with compression wraps. The patient is unable to walk due to her physical condition. Physical exam demonstrates no areas of erythema warmth or bruising. The right great saphenous vein cannot be palpated , possibly related to patient obesity. Extensive ulcers on both legs extending from the lower leg to the ankle, left greater than right remain unchanged from the prior exam Review of the ultrasound performed the same day demonstrates occlusive thrombus extending throughout the treated right great saphenous vein with heat induced thrombus 3.3 cm from the saphenofemoral junction. The patient expressed a desire to proceed with treatment of right anterior accessory saphenous vein and bilateral incompetent varicose veins. We will begin the treatment of her varicose veins before the anterior accessory saphenous vein secondary to her extensive wounds and associated pain. VEIN/ Facility EST LMTD IMPRESSION: 1. Successful ablation of the right great saphenous vein 2. Persistent bilateral incompetent varicose veins. PLAN: Micro foam chemical ablation left leg incompetent varicose veins Nurse notes, history and physical were reviewed and confirmed, see attached forms. The nurse was present throughout the physical exam and consultation Dictated by: Marino Schrader MD on 03/24/2023 at 12:03 Approved by: Marino Schrader MD on 03/24/2023 at 12:06
--- NOTE | 2023-03-24 11:25 | VEIN_ITS ---
Patient: ALBANIA CESAR Exam Date: 03/24/2023 : 1955 Gender:F Ordering : DR MARINO SCHRADER M.D. Admission #: [id number] Family : Order #: [id number] CLICK HERE TO VIEW EXAM RADIOLOGY REPORT PROCEDURE: VC EXT VENOUS RT LMTD COMPARISON: None. INDICATIONS: I80.01 Phlebitis of superficial veins of rt lower extremity TECHNIQUE: Lower extremity pierre scale and Duplex Doppler evaluation of the deep venous system from the inguinal ligament through the calf veins. FINDINGS: REGION: Right lower extremity. THROMBI: Negative for DVT. Heat induced thrombus visualized 3.3 cm from the SFJ. The heat induced thrombus extends from groin to distal thigh. COMPRESSIBILITY: Non-compressible segments corresponding to thrombus. FLOW: Absent flow corresponding to thrombus CONCLUSION: Post ablation occlusion of the right great saphenous vein with heat induced thrombus 3.3 cm from the saphenofemoral junction Dictated by: Marino Schrader MD on 03/24/2023 at 11:54 Approved by: Marino Schrader MD on 03/24/2023 at 11:55
== END 2023-03-24 11:23 | disposition home or self-care (01) ==
LOC: VC 11:22
PROVIDERS: PCP Radiology Diagnostic Radiology; Visit Provider Radiology Diagnostic Radiology
DX: I80.01 Phlebitis and thrombophlebitis of superficial vessels of right lower extremity (principal)
CPT/HCPCS: 93971; G0463

== ENCOUNTER 2023-03-31 10:27 | Outpatient (OUT) | payer MEDICARE, OTHER, SELFPAY ==
--- NOTE | 2023-03-31 10:29 | VEIN_ITS ---
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 Ultrasound-guided microfoam chemical ablation with Varithenaregistered 2. Intraoperative ultrasound guidance Physician: Ronald Millard M.D. Anesthesia: None Indications for Procedure: 67 year old female. Symptoms including extensive skin wounds, lower extremity edema, pain, dilated veins for many years despite conservative medical therapy including medical compression stockings, exercise and analgesics. Prior procedures include endovenous laser ablation. Multiple incompetent varicosities of the left leg. Duplex scan showed reflux and enlarged diameters up to 6 mm. The patient underwent informed consent including management options where the complications of infection, bleeding, pain, and skin injury were discussed. Particular attention was spent discussing thrombus extension and deep vein thrombosis as well as the possibility of pulmonary embolus and treatment with oral or injectable blood thinners. Procedure: The patient walked to the procedure room. All applicable staff donned appropriate apparel. A procedure timeout was performed to confirm correct patient, correct extremity, correct procedure, and correct room set-up including presence of all applicable supplies, devices, and drugs. A duplex ultrasound, performed by myself confirmed the location and incompetence of branch saphenous varicosities and their course was marked on the skin together with the dilated tributaries. The extent of treatment of the vein and the associated varicosities was determined through ultrasound mapping. The skin was prepped and then punctured with a butterfly needle and advanced under ultrasound guidance. The Varithenaregistered canister was activated and the canister was primed and purged as required in the instructions for use. Varithenaregistered was drawn into a sterile syringe. Varithenaregistered was slowly administered at 0.5-1.0 cc/second with close observation by ultrasound of its course in the vessels. Total volume utilized was: 15 mL (7 mL into a 4 mm varicosity of the distal medial lower leg; 8 mL into a 6 mm varicosity of the distal lateral lower leg). Following administration of Varithenaregistered the leg was elevated and the patient was asked to repeatedly dorsiflex the ankle to limit flow of Varithenaregistered into perforating veins. Once appropriate spasm had been confirmed in the treated veins, the vascular catheter was removed from the leg and light pressure was applied over the puncture site for hemostasis. The common femoral and deep superficial veins were then evaluated for flow and compressibility prior to dressing placement. The lower extremity was kept elevated at 45 degrees above the horizontal and cording material was applied over the saphenous segments and tributaries to allow for eccentric compression over the target vessels including the targeted saphenous vein(s). A multilayer dressing was applied consisting of foam pads, coban and thigh-high 20-30 mm Hg compression elastic support hose were placed on the patient. The leg was lowered only after compression had been applied and the patient was immediately ambulatory. The patient ambulated 10 minutes under supervision and was without apparent concerns at time of release. Post-care instructions include advising patient to keep post-treatment bandages in place and dry for 48 hours, avoid extended periods of inactivity, avoid heavy exercise for one week, wear compression stockings on the treated leg continuously for two weeks, to walk daily for 10 minutes over the next month. The patient was instructed to take an anti-inflammatory medicine as needed and to follow up for color duplex scan of the Saphenous veins, the treated branch saphenous varicosities, the adjacent deep veins, and additional treatment within 7 days. PERSONNEL: Edison Martin RN and Aissatou Dawson RN Electronically authenticated by: RONALD MILLARD Date: 03/31/2023 12:24
== END 2023-03-31 10:28 | disposition home or self-care (01) ==
LOC: VC 10:28
PROVIDERS: PCP Radiology Diagnostic Radiology; Visit Provider Radiology Diagnostic Radiology
DX: I83.813 Varicose veins of bilateral lower extremities with pain (principal)
CPT/HCPCS: 36466

== ENCOUNTER 2023-06-18 09:11 | Outpatient (OUT) | payer MEDICARE, OTHER, SELFPAY ==
--- NOTE | 2023-06-18 | XR_ITS ---
[address] [address] Patient Name: ALBANIA CESAR MRN: [id number] date: 1955 Sex: F Assigned Patient Location: Current Patient Location: Accession/Order Number: [id number] Exam Date: 06/18/2023 09:30 Report Date: 06/18/2023 10:00 At the request of: CHAGO GALVAN Procedure: XR tibia fibula LINA 2V EXAMINATION: XR foot LINA min 3V, XR tibia fibula LINA 2V HISTORY: BILAT FOOT WOUNDS COMPARISON: No relevant comparison available. FINDINGS: RIGHT FINDINGS: BONES: No acute fracture or dislocation of the lower leg or foot. Moderate degenerative enthesopathic spurring of the calcaneus. No focal lytic or sclerotic changes. SOFT TISSUES: Moderate diffuse soft tissue swelling OTHER: Negative. LEFT FINDINGS: BONES: No acute fracture or dislocation of the lower leg or foot. Moderate degenerative enthesopathic spurring of the calcaneus. No focal lytic or sclerotic changes. SOFT TISSUES: Moderate diffuse soft tissue swelling OTHER: Negative. XR/XR tibia fibula LINA 2V IMPRESSION: RIGHT CONCLUSION: No evidence of osteomyelitis LEFT CONCLUSION: No evidence of osteomyelitis Electronically authenticated by: JOYA SCHRADER Date: 06/18/2023 10:00
--- NOTE | 2023-06-18 | XR_ITS ---
[address] [address] Patient Name: ALBANIA CESAR MRN: [id number] date: 1955 Sex: F Assigned Patient Location: Current Patient Location: Accession/Order Number: [id number] Exam Date: 06/18/2023 09:30 Report Date: 06/18/2023 10:00 At the request of: CHAGO GALVAN Procedure: XR foot LINA min 3V EXAMINATION: XR foot LINA min 3V, XR tibia fibula LINA 2V HISTORY: BILAT FOOT WOUNDS COMPARISON: No relevant comparison available. FINDINGS: RIGHT FINDINGS: BONES: No acute fracture or dislocation of the lower leg or foot. Moderate degenerative enthesopathic spurring of the calcaneus. No focal lytic or sclerotic changes. SOFT TISSUES: Moderate diffuse soft tissue swelling OTHER: Negative. LEFT FINDINGS: BONES: No acute fracture or dislocation of the lower leg or foot. Moderate degenerative enthesopathic spurring of the calcaneus. No focal lytic or sclerotic changes. SOFT TISSUES: Moderate diffuse soft tissue swelling OTHER: Negative. XR/XR foot LINA min 3V IMPRESSION: RIGHT CONCLUSION: No evidence of osteomyelitis LEFT CONCLUSION: No evidence of osteomyelitis Electronically authenticated by: JOYA SCHRADER Date: 06/18/2023 10:00
--- OUTSIDE RECORDS SUMMARY | 2023-06-18 09:16 | XMS_ITS | CCD ---
Author Name Unknown Address [address] [place] [address] Organization [facility] Care Team Providers Care Vice Investigator Name Role Phone CARL TY Unavailable Unavailable PEPE FERMIN Unavailable Unavailab Shayla Bolanos Unavailable NO FAMILY, PHYSICIAN Primary Care Provider Unava ilable ANTHONY Theodore Emergency Provider ANTHONY Theodore Attending Provider BRITNEY Jimenez Attending Provider DO Reji Rangel Attending Provider [phone] DO Jhonatan Crowell Emergency Provider [phone] DO Jhonatan Crowell Attending Provider DO Jhonatan Crowell Attending Provider BRITNEY Leon Attending Provider DO Reji Rangel Attending Provider [phone] MD Laith Warner Emergency Provider DO Reji Rangel Attending Provider MD Laith Warner Attending Provider [phone] DO Chon Valdez Emergency Provider DO Abimbola Bran Primary Care Provider Abimbola Bran Unavailable Laith Carlson Unavailable NO FAMILY, PHYSICIAN Primary Care Provider Unava ilable DO Reji Rangel Attending Provider MD Laith Carlson Attending Provider [phone] MD Albino Saxena Attending Provider NO FAMILY, PHYSICIAN Primary Care Provider Unava ilable Bran, DO Abimbola A Primary Care Provider [phone] DO Jhonatan Crowell [facility] Emergency Provider MD Neeraj Farrell Admit Provider MD Neeraj Farrell Attending Provider Yina DO Abimbola A Primary Care Provider [phone] MD Laith Carlson Attending Provider MD Albino Saxena Attending Provider DO Jhonatan Crowell Emergency Provider [phone] [facility] Sarah E Emergency Provider MD Neeraj Farrell Admit Provider MD Selvin Bey Attending Provider [phone] MD Laith Carlson Other Provider Bran, Abimbola A Primary Care Unavailable Albino Saxena Attending Unavailable Albino Saxena Admitting Unavailable Bran, Abimbola A Primary Care Unavailable Laith Carlson Attending Unavailable Laith Carlson Admitting Unavailable NO FAMILY, PHYSICIAN Primary Care Unavailable Laith Warner Attending Unavailable Laith Warner Admitting Unavailable NO FAMILY, PHYSICIAN Primary Care Unavailable Jhonatan Crowell Attending Unavailable Riley Crowelled M Admitting Unavailable NO FAMILY, PHYSICIAN Primary Care Unavailable Reji Rangel Attending Unavailable Reji Rangel Admitting Unavailable Obermeyer Evelyn L Attending Unavailable KalebermeyEvelyn sommer L Admitting Unavailable NO FAMILY, PHYSICIAN Primary Care Unavailable Bran, Abimbola A Primary Care Unavailable Jhonatan Crowell M Attending Unavailable Riley Crowelled M Admitting Unavailable Bran, Abimbola A Primary Care Unavailable Chon Valdez Attending Unavailable Chon Valdez Admitting Unavailable NO FAMILY, PHYSICIAN Primary Care Unavailable Laith Warner Admitting Unavailable Laith Warner Attending Unavailable NO FAMILY, PHYSICIAN Primary Care Unavailable Jhonatan Crowell Admitting Unavailable Jhonatan Crowell M Attending Unavailable NO FAMILY, PHYSICIAN Primary Care Unavailable Gerald Theodore Attending Unavailable Gerald Theodore Admitting Unavailable Laith Carlson Unavailable Selvin Bey Attending Unavailable Neeraj Farrell Admitting Unavailable Abimbola Bran Primary Care Unavailable Abimbola Bran Primary Care Unavailable Chon Valdez Attending Unavailable Chon Valdez Admitting Unavailable NO FAMILY, PHYSICIAN Primary Care Unavailable Gerald Theodore Attending Unavailable Gerald Theodore Admitting Unavailable Medications Current Medications Medication Drug Class(es) Dates Sig (Normalized) Sig (Original) acetaminophen 325 mg oral tablet (3 sources) Start: 04-16-2023 take 2 tablets by mouth every eight hours Acetaminophen 325 MG 2 tablet as needed Orally every 8 hrs for 30 days [facility] [place], Active acetaminophen 325 mg / oxyCODONE hydrochloride 5 mg oral tablet (17 sources) Opioid Agonist Start: 03-24-2023 take 1 tablet by mouth every six hours Start: 01-21-2023 take 2 tablets by mo ut once daily Percocet 5-325 MG 2 tablets 1/2 hour before dressing changes to her legs Orally daily for 21 days Jan, Active Start: 01-07-2023 take 2 tablets by mo uth once daily Percocet 5-325 MG 2 tablets 1/2 hour before dressing changes to her legs Orally daily for 7 days Jan, Active Start: 10-12-2022 End: 12-14-2022 take 1 tablet by mouth every six hours Oxycodone-Acetaminophen (Percocet) 5-325 mg tablet Discontinued 1 TAB PO Q6H 10 October 12, 2022 December 14, 2022 12:18am bisacodyl 10 mg rectal suppository (1 source) Stimulant Laxative Start: 04-17-2023 Bisacodyl Active 10 MG VT Daily 0 April 17, 2023 12:00am brompheniramine maleate 0.4 mg/ml / dextromethorphan hydrobromide 2 mg/ml / pseudoephedrine hydrochloride 6 mg/ml oral solution (2 sources) alpha-Adrenergic Agonist, Uncompetitive S-ambxfj-H-aspartat e Receptor Antagonist, Sigma-1 Agonist Start: 06-06-2021 take 10 mL by mouth every six hours carvedilol 3.125 mg oral tablet (1 source) alpha-Adrenergic Alec, beta-Adrenergic Alec take 1 tablet by mouth every twelve hours Carvedilol 3.125 MG 1 tablet with food Orally Twice a day for 90 days Active celecoxib 100 mg oral capsule (2 sources) Nonsteroidal Anti-inflammatory Drug Start: 04-16-2023 take 1 capsule by mouth every twenty-four hours Celecoxib 100 MG 1 capsule with food Orally Once a day [facility] [place], Active Start: 04-16-2023 take 100 mg by mouth twice ebenezer ly Celecoxib Active 100 MG PO Twice daily 03 12April 16, 2023 12:00am cephalexin 500 mg oral capsule (1 source) Cephalosporin Antibacterial take 1 capsule by mouth every eight hours 0.4 ml enoxaparin sodium 100 mg/ml prefilled syringe (2 sources) Low Molecular Weight Heparin Start: 04-16-20 Enoxaparin Sodium 40 MG/0.4ML 0.3 mL Injection Once a day [facility] [place], Active ertapenem 1000 mg injection (2 sources) Penem Antibacterial Start: 04-16-20 take 1 g intravenously every twenty-four hours Ertapenem Active 1 GM IV Q24H April 16, 2023 12:00am Ertapenem Sodium 1 GM as directed Injection Active furosemide 40 mg oral tablet (1 source) Loop Diuretic take 1 tablet by mouth every twenty-four hours Furosemide 40 MG 1 tablet Orally Once a day for 90 days Active meloxicam 7.5 mg oral tablet (1 source) Nonsteroidal Anti-inflammatory Drug take 1 tablet by mouth every twelve hours Meloxicam 7.5 MG 1 tablet Orally twice a day for 90 days Active oxyCODONE hydrochloride 5 mg oral tablet (3 sources) Opioid Agonist Start: 06-09-19 take 1 tablet by mouth every four hours oxyCODONE HCl 5 MG 1 tablet as needed Orally every 4 hrs for 14 days [facility] [place], Active Start: 04-16-2023 take 1 tablet by estuardo th every four hours oxyCODONE HCl 5 MG 1 tablet as needed Orally every 4 hrs [facility] [place], Active Start: 04-16-2023 take 2.5 mg by mouth every four hours Oxycodone Active 2.5 MG PO Every 4 hours 03 12April 16, 2023 polyethylene glycol 3350 48456 mg powder for oral solution (1 source) Osmotic Laxative Start: 04-17-2023 Polyethylene Glycol 3350 (Healthylax) 17 gram Powder In Packet Active 17 GM PO Daily April 17, 2023 9:43am pregabalin 75 mg oral capsule (3 sources) Start: 06-09-2023 take 1 capsule by mouth every eight hours Pregabalin 75 MG 1 capsule Orally three times a day for 90 days [facility] [place] Jun, Active Start: 04-16-2023 take 1 capsule by mo ut every twelve hours Pregabalin 50 MG 1 capsule Orally Twice a day [facility] [place], Active Sennosides (Senokot) 8.6 mg tablet (1 source) Start: 04-17-2023 take 1 tablet by mouth twice daily Sennosides (Senokot) 8.6 mg tablet Active 8.6 MG PO Twice daily April 17, 2023 12:00am SMZ-TMP DS 800-160 MG (1 source) take 1 tablet by mouth twice daily Completed/Discontinued Medications Medication Drug Class(es) Dates Sig (Normalized) Sig (Original) acetaminophen 325 mg / HYDROcodone bitartrate 5 mg oral tablet (10 sources) Opioid Agonist Start: 12-13-2022 End: 04-07-2023 take 1 tablet by mouth every six hours Hydrocodone-Acetam inophen Discontinued 1 TAB PO Q6H 10 December 14, 2022 April 07, 2023 7:11am ciprofloxacin 500 mg oral tablet (18 sources) Quinolone Antimicrobial Start: 11-06-2022 End: 11-13-2022 take 1 tablet by mouth twice daily Ciprofloxacin Hcl (Cipro) 500 mg tablet Discontinued 500 MG PO Twice daily November 05, 2022 11:00pm November 13, 2022 1:26pm Start: 04-27-2018 End: 10-12-2022 Ciprofloxacin Hcl (Ciloxan) 0.3 % drops Discontinued 2 DROPS OPHTHALMIC Q2H 24 April 27, 2018 12:00am October 12, 2022 5:21pm 2 drops while awake every 2 hours days 1-2, then 2 drops while awake every 4 hours days 3-7 doxycycline hyclate 100 mg oral tablet (16 sources) Tetracycline-class Drug Start: 12-01-2022 End: 02-03-2023 take 100 mg by mouth twice daily Doxycycline Hyclate Discontinued 100 MG PO Twice daily November 30, 2022 11:00pm February 03, 2023 8:37am Start: 11-06-2022 End: 11-13-2022 take 100 mg by mouth twice daily Doxycycline Hyclate Discontinued 100 MG PO Twice daily 14 November 05, 2022 11:00pm November 13, 2022 1:26pm gabapentin 600 mg oral tablet (4 sources) Anti-epileptic Agent Start: 04-07-2023 End: 04-17-2023 take 600 mg by mouth three times daily Gabapentin Discontinued 600 MG PO Three times daily April 06, 2023 11:00pm April 17, 2023 11:29am Start: 02-24-2023 take 1 capsule by mo [facility] every eight hours Gabapentin 300 MG 1 capsule Orally TID for 30 days Feb, Active ibuprofen 800 mg oral tablet (9 sources) Nonsteroidal Anti-inflammatory Drug Start: 10-21-2022 End: 04-17-2023 take 800 mg by mouth three times daily Ibuprofen Discontinued 800 MG PO Three times daily October 20, 2022 11:00pm April 17, 2023 11:29am Start: 10-21-2022 Ibuprofen Acti ve 800 MG PO Daily at 0730, 1530, 2330 October 21, 2022 12:00am levoFLOXacin 750 mg oral tablet (11 sources) Quinolone Antimicrobial Start: 12-31-2022 End: 02-03-2023 Levofloxacin Discontinued MG TABLET December 30, 2022 11:00pm February 03, 2023 8:37am Start: 12-29-2022 take 1 tablet by estuardo every twenty-four hours levoFLOXacin 750 MG 1 tablet Orally Once a day for 21 days Dec, Active linezolid 600 mg oral tablet (11 sources) Oxazolidinone Antibacterial Start: 12-31-2022 End: 02-03-2023 Linezolid Discontinued MG TABLET December 30, 2022 11:00pm February 03, 2023 8:38am Start: 12-29-2022 take 1 tablet by estuardo th every twelve hours Linezolid 600 MG 1 tablet Orally every 12 hrs for 14 days Dec, Active Problems Active Problems Problem Classification Problem Date Documented Da te Episodic/Chronic Acute and unspecified renal failure (5 sources) Acute renal failure syndrome; Translations: [Acute kidney failure, unspecified] Onset: 03-2023 Episodic Chronic ulcer of skin (20 sources) Ulcer of lower extremity; Translations: [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] Onset: 3 10-21-2022 Chronic Congestive heart failure; nonhypertensive (5 sources) Congestive heart failure; Translations: [Heart failure, unspecified] Onset: 3 04-11-2023 Chronic Fluid and electrolyte disorders (12 sources) Hyponatremia; Translations: [Hypo-osmolality and hyponatremia] Onset: 3 04-10-2023 Episodic Immunizations and screening for infectious disease (2 sources) Contact with and (suspected) exposure to other viral communicable diseases; Translations: [Encounter for immunization] Onset: 1 Resolved: 1 Episodic Open wounds of head; neck; and trunk (14 sources) Wound pain ; Translations: [Wound pain] 10-21-2022 Episodic Other circulatory disease (9 sources) Elevated blood pressure; Translations: [Elevated blood-pressure reading, without diagnosis of hypertension] 10-21-2022 Episodic Other circulatory disease (5 sources) Elevated blood-pressure reading, without diagnosis of hypertension; Translations: [Elevated blood pressure reading without diagnosis of hypertension] 10-30-2022 Episodic Other connective tissue disease (3 sources) Pain in lower limb; Translations: [Pain in right leg] 04-07-2023 Episodic Other connective tissue disease (2 sources) Pain in right leg; Translations: [Pain in limb] Onset: 3 04-10-2023 Episodic Other connective tissue disease (1 source) Pain in left leg; Translations: [Pain in left leg] Onset: 3 Episodic Other diseases of veins and lymphatics (9 sources) Lymphedema; Translations: [Lymphedema, not elsewhere classified] 10-21-2022 Chronic Other diseases of veins and lymphatics (15 sources) Lymphedema, not elsewhere classified; Translations: [Other lymphedema] Onset: 3 10-30-2022 Chronic Other diseases of veins and lymphatics (1 source) Lymphedema of lower extremity; Translations: [Lymphedema, not elsewhere classified] Chronic Other diseases of veins and lymphatics (14 sources) Venous insufficiency (chronic) (peripheral); Translations: [Venous insufficiency (chronic) (peripheral)] Episodic Other injuries and conditions due to external causes (1 source) Local infection of wound; Translations: [Other injury of unspecified body region, initial encounter] 04-10-2023 Episodic Other injuries and conditions due to external causes (2 sources) Other injury of unspecified body region, initial encounter; Translations: [Posttraumatic wound infection not elsewhere classified] Onset: 3 04-17-2023 Episodic Other liver diseases (1 source) Elevated liver enzymes level; Translations: [Abnormal levels of other serum enzymes] 04-10-2023 Episodic Other liver diseases (2 sources) Abnormal levels of other serum enzymes; Translations: [Other nonspecific abnormal serum enzyme levels] Onset: 3 04-17-2023 Episodic Other lower respiratory disease (1 source) Hypoxia; Translations: [Hypoxemia] 04-11-2023 Episodic Other lower respiratory disease (2 sources) Hypoxemia; Translations: [Hypoxemia] Onset: 3 04-17-2023 Episodic Other nutritional; endocrine; and metabolic disorders (9 sources) Obesity; Translations: [Obesity, unspecified] 10-21-2022 Chronic Other nutritional; endocrine; and metabolic disorders (7 sources) Obesity, unspecified; Translations: [Obesity, unspecified] Onset: 3 10-30-2022 Chronic Other nutritional; endocrine; and metabolic disorders (1 source) Hypophosphatemia; Translations: [Other disorders of phosphorus metabolism] 04-15-2023 Chronic Other nutritional; endocrine; and metabolic disorders (2 sources) Other disorders of phosphorus metabolism; 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] Onset: 3 04-17-2023 Chronic Other screening for suspected conditions (not mental disorders or infectious disease) (2 sources) Encounter for other screening for malignant neoplasm of breast; Translations: [Liver function tests abnormal] Episodic Other skin disorders (8 sources) Hyperpigmentation of skin; Translations: [Disorder of pigmentation, unspecified] 11-06-2022 Episodic Other skin disorders (8 sources) Keratosis; Translations: [Epidermal thickening, unspecified] 11-06-2022 Episodic Other skin disorders (4 sources) Epidermal thickening, unspecified; Translations: [Keratoderma, acquired] 11-24-2022 Episodic Other skin disorders (4 sources) Disorder of pigmentation, unspecified; Translations: [Dyschromia, unspecified] 11-24-2022 Episodic Phlebitis; thrombophlebitis and thromboembolism (3 sources) Superficial vein thrombosis; Translations: [Acute embolism and thrombosis of other specified veins] Onset: 3 04-14-2023 Episodic Residual codes; unclassified (12 sources) Obstructive sleep apnea syndrome; Translations: [Obstructive sleep apnea (adult) (pediatric)] Chronic Residual codes; unclassified (2 sources) Obstructive sleep apnea (adult) (pediatric); Translations: [Obstructive sleep apnea (adult) (pediatric)] Onset: 3 Chronic Residual codes; unclassified (12 sources) Noncompliance with medication regimen; Translations: [Nonadherence to medical treatment] 11-24-2022 Episodic Respiratory failure; insufficiency; arrest (adult) (3 sources) Acute respiratory acidosis; Translations: [Acute respiratory failure with hypercapnia] Onset: 3 04-12-2023 Episodic Skin and subcutaneous tissue infections (20 sources) Cellulitis of lower limb; Translations: [Cellulitis of left lower limb] Onset: 3 10-12-2022 Episodic Unclassified (16 sources) Inflammatory disorder; Translations: [Inflammation] 10-21-2022 Unclassified (1 source) Acidosis, unspecified; Translations: [Acidosis, unspecified] Onset: 3 Unclassified (1 source) Pain in right lower leg; Translations: [Pain in right lower leg] Onset: 3 Unclassified (1 source) Non-pressure chronic ulcer of unspecified part of left lower leg with fat layer exposed; Translations: [Non-pressure chronic ulcer of unspecified part of left lower leg with fat layer exposed] Onset: 3 Unclassified (1 source) Non-pressure chronic ulcer of unspecified part of left lower leg limited to breakdown of skin; Translations: [Non-pressure chronic ulcer of unspecified part of left lower leg limited to breakdown of skin] Onset: 3 Unclassified (1 source) Non-pressure chronic ulcer of unspecified part of unspecified lower leg with other specified severity; Translations: [Non-pressure chronic ulcer of unspecified part of unspecified lower leg with other specified severity] Onset: 3 Unclassified (1 source) Cellulitis of left lower limb; Translations: [Cellulitis of left lower limb] Onset: 3 Unclassified (1 source) Local infection of the skin and subcutaneous tissue, unspecified; Translations: [Local infection of the skin and subcutaneous tissue, unspecified] Onset: 3 Urinary tract infections (3 sources) Urinary tract infectious disease; Translations: [Urinary tract infection, site not specified] 04-10-2023 Episodic Past or Other Problems Problem Classification Problem Date Documented Da te Episodic/Chronic Other connective tissue disease (1 source) Pain in right lower limb; Translations: [Pain in right leg] Onset: 12-31-2022 Episodic Other connective tissue disease (1 source) Pain in left lower limb; Translations: [Pain in left leg] Onset: 12-01-2022 Episodic Viral infection (1 source) COVID-19 Onset: 06-06-2021 Resolved: 06-06-2021 Results Test Name Value Interpretation Reference Range Facility Activated partial thrombopla stin time (aPTT) in platelet poor plasma by coagulation aOrdered By: Laith Carlson on 04-15-2023 aPTT Coag (PPP) [Time] 32.5 s 25.1-36.5 [facility] Comment on above: A hematocrit value g reater than 55% may lead to inaccurate results in coagulation testing. Patients having hematocrit values >55% require a special collection tube for coagulation studies. Please contact the laboratory at [phone] for redraw instructions. Alanine aminotransferase [En zymatic activity/volume] in Serum or PlasmaOrdered By: Selvin Bey on 04-15-2023 ALT [Catalytic activity/Vol] 118 U/L 7-52 [facility] Albumin [Mass/volume] in Ser um or Plasma by Bromocresol green (BCG) dye binding methoOrdered By: Selvin Bey on 04-15-2023 Albumin BCG dye [Mass/Vol] 3.3 g/dL 3.5-5.7 [facility] Alkaline phosphatase [Enzyma tic activity/volume] in Serum or PlasmaOrdered By: Selvin Bey on 04-15-2023 ALP [Catalytic activity/Vol] 77 U/L 34-104 [facility] Aspartate aminotransferase [ Enzymatic activity/volume] in Serum or PlasmaOrdered By: Selvin Bey on 04-15-2023 AST [Catalytic activity/Vol] 48 U/L 13-39 [facility] Bilirubin.direct [Mass/volum e] in Serum or PlasmaOrdered By: Selvin Bey on 04-15-2023 Bilirubin.direct [Mass/Vol] 0.10 mg/dL 0.03-0.18 [facility] Bilirubin.total [Mass/volume ] in Serum or PlasmaOrdered By: Selvin Bey on 04-15-2023 Bilirubin [Mass/Vol] 0.5 mg/dL 0.3-1.[address] [facility] C reactive protein [Mass/vol ume] in Serum or PlasmaOrdered By: Laith Carlson on 04-15-2023 CRP [Mass/Vol] 3.1 mg/dL 0.0-0.5 [facility] C-Reactive Proteinon 023 C-Reactive Protein 3.1 mg/dL High 0.0-0.5 [facility] Comment on above: Result Comment: PERF ORMED BY: [facility] [address] [place] [address] PATHOLOGIST MICROBIOLOGY QUALITY CONTROL TECHNICIAN IAN ACE M.D. Performed By: #### C UBLD, CMP, CBC #### [facility] [address] Globulin Calc (S) [Mass/Vol] Ordered By: Selvin Bey on 04-15-2023 Globulin (S) [Mass/Vol] 4.3 g/dL [facility] Hepatic Panelon 04-15-2023 Albumin [Mass/Vol] 3.3 g/dL Low 3.5-5.7 [facility] Comment on above: Performed By: #### C UBLD, CMP, CBC #### [facility] [address] Albumin/Globulin [Mass ratio] 0.8 {ratio} Normal [facility] Comment on above: Performed By: #### C UBLD, CMP, CBC #### [facility] [address] ALP [Catalytic activity/Vol] 77 U/L Normal 34-104 [facility] Comment on above: Performed By: #### C UBLD, CMP, CBC #### [facility] [address] ALT [Catalytic activity/Vol] 118 U/L High 7-52 [facility] Comment on above: Performed By: #### C UBLD, CMP, CBC #### [facility] [address] Aspartate Amino Transferase Normal 13-39 [facility] Comment on above: Result Comment: Spec imen hemolyzed, redraw requested Performed By: #### C UBLD, CMP, CBC #### [address] Bilirubin [Mass/Vol] 0.5 mg/dL Normal 0.3-1.[address] [facility] Comment on above: Performed By: #### C UBLD, CMP, CBC #### [address] Bilirubin,Direct Normal 0.03-0.18 [facility] Comment on above: Result Comment: Spec imen hemolyzed, redraw requested Performed By: #### C UBLD, CMP, CBC #### [address] Bilirubin,Indirect Not performed Normal [facility] Comment on above: Performed By: #### C UBLD, CMP, CBC #### [facility] [address] [place] [address] [place] Globulin (S) [Mass/Vol] 4.3 g/dL Normal [facility] Comment on above: Performed By: #### C UBLD, CMP, CBC #### [facility] [address] Protein [Mass/Vol] 7.6 g/dL Normal 6.4-8.9 [facility] Comment on above: Performed By: #### C UBLD, CMP, CBC #### [facility] [address] [place], [place] [id number] [place] INR in Platelet poor plasma by Coagulation assayOrdered By: Laith Carlson on 04-15-2023 INR Coag (PPP) [Relative time] 1.0 {INR} [facility] Comment on above: INR Therapeutic Rang e A) Pre- and Peroperative OAT started two weeks before surgery. NOT HIP SURGERY: 1.5 - 2.5 HIP SURGERY: 2 - 3B) Primary and secondary prevention of venous THROMBOSIS: 2 - 3C) Active venous thrombosis, pulmonary embolismand prevention of recurrent venous thrombosis: 2 - 3D) Prevention of arterial thromboembolismincluding patients with mechanical heart valves: 3 - 4.5 Partial Thromboplastin Timeo n 04-15-2023 aPTT Coag (Bld) [Time] 32.5 s Normal 25.1-36.5 [facility] Comment on above: Result Comment: A he matocrit value greater than 55% may lead to inaccurate results in coagulation testing. Patients having hematocrit values >55% require a special collection tube for coagulation studies. Please contact the laboratory at [phone] for redraw instructions. PERFORMED BY: [place] [address] PATHOLOGIST MICROBIOLOGY QUALITY CONTROL TECHNICIAN IAN ACE M.D. Performed By: #### C UBLD, CMP, CBC #### [facility] [address] [place] [id number] [place] Phosphate [Mass/volume] in S marivel or PlasmaOrdered By: Selvin Bey on 04-15-2023 Phosphate [Mass/Vol] 3.2 mg/dL 2.5-4.[address] [facility] Phosphoruson 04-15-2023 Phosphate [Mass/Vol] 3.2 mg/dL Normal 2.5-4.[address] [facility] Comment on above: Result Comment: PERF ORMED BY: [place] [address] PATHOLOGIST MICROBIOLOGY QUALITY CONTROL TECHNICIAN IAN ACE M.D. Performed By: #### C UBLD, CMP, CBC #### [facility] [address] [place] [id number] [place] Protein [Mass/volume] in Ser um or PlasmaOrdered By: Selvin Bey on 04-15-2023 Protein [Mass/Vol] 7.6 g/dL 6.4-8.9 [facility] Prothrombin Time INRon 04-15 INR Coag (PPP) [Relative time] 1.0 {INR} Normal [facility] Comment on above: Result Comment: INR Therapeutic Range A) Pre- and Peroperative OAT started two weeks before surgery. NOT HIP SURGERY: 1.5 - 2.5 HIP SURGERY: 2 - 3 B) Primary and secondary prevention of venous THROMBOSIS: 2 - 3 C) Active venous thrombosis, pulmonary embolism and prevention of recurrent venous thrombosis: 2 - 3 D) Prevention of arterial thromboembolism including patients with mechanical heart valves: 3 - 4.5 Performed By: #### C ALEXX RAND, CBC #### [place] [id number] [facility] PT Coag (PPP) [Time] 11.9 s Normal 9.0-12.[address] [facility] Comment on above: Result Comment: A he matocrit value greater than 55% may lead to inaccurate results in coagulation testing. Patients having hematocrit values >55% require a special collection tube for coagulation studies. Please contact the laboratory at [phone] for redraw instructions. Performed By: #### C ALEXX RAND, CBC #### [facility] [address] [place], [place] [id number] [facility] Prothrombin time (PT)Ordered By: Laith Carlson on 04-15-2023 PT Coag (PPP) [Time] 11.9 s 9.0-12.[address] [facility] Comment on above: A hematocrit value g reater than 55% may lead to inaccurate results in coagulation testing. Patients having hematocrit values >55% require a special collection tube for coagulation studies. Please contact the laboratory at [phone] for redraw instructions. Redraw Renaldo 04-15-2023 AST [Catalytic activity/Vol] 48 U/L High 13-39 [facility] Comment on above: Result Comment: PERF ORMED BY: [facility] [address] [place] [address] PATHOLOGIST MICROBIOLOGY QUALITY CONTROL TECHNICIAN IAN ACE M.D. Performed By: #### C UBLD, CMP, CBC #### [facility] [address] Redraw Bilirubin,Directon Redraw Bilirubin,Direct 0.10 mg/dL Normal 0.03-0.18 [facility] Comment on above: Performed By: #### R EDRAW AST, REDRAW DBIL #### [facility] [address] Serum or plasma albumin/glob ulin mass ratioOrdered By: Selvin Bey on 04-15-2023 Albumin/Globulin [Mass ratio] 0.8 {ratio} [facility] Serum or plasma non-glucuron idated bilirubin measurement (mass/volume)Ordered By: Selvin Bey on 04-15-2023 Bilirubin.indirect [Mass/Vol] TNP [facility] Comment on above: Test not performed US abdomen limitedon 023 US abdomen limited [facility] [place] [address] [place] [address] Ultrasound Report Signed Patient: [place] Cesar MR#: [id number] : 1955 Acct:[id number] Age/Sex: 67 / F ADM Date: 04/10/23 Loc: Room: [address] [place] [address] Type: ADM IN Attending Dr: Selvin Bey MD Ordering Provider: Selvin Bey MD Date of Service: 04/15/23 US/US abdomen limited: Elevated LFT Copies to: Selvin Bey MD LIMITED ABDOMINAL ULTRASOUND: CLINICAL HISTORY: Elevated liver functions and nausea COMPARISON: None The gallbladder is physiologically distended without shadowing calculi, wall thickening or pericholecystic fluid. No intra- or extrahepatic biliary dilatation is evident. The common duct measures 3 mm. The liver shows normal echotexture. There are left hepatic cysts measuring 18 x 17 x 12 mm and 14 x 11 x 12 mm. The pancreas shows no significant sonographic abnormality. There is appropriate hepatopetal flow within the main portal vein. Limited imaging of the right kidney shows no hydronephrosis or fluid within Byrnes's pouch. US/US abdomen limited IMPRESSION: NO GALLBLADDER PATHOLOGY. HEPATIC CYSTS. Impression dictated by: Padmini Bethea M.D.04/15/2023 10:01 AM Dictation Location: [place] [address] Tech: Elyse Hart Transcribed By: MARIA VICTORIA 04/15/23 1001 Dictated By: Padmini Bethea MD 04/15/23 0959 Signed By: 04/15/23 1001 Normal [facility] Anisocytosis LM Ql (Bld)Orde red By: Selvin Bey on 04-14-2023 Anisocytosis Ql (Bld) Slight [facility] Band form neutrophils/100 WB C Manual cnt (Bld)Ordered By: Selvin Bey on 04-14-2023 Band form neutrophils/100 WBC (Bld) 2 % 0-5 [facility] Basophils Auto (Bld) [#/Vol] Ordered By: Selvin Bey on 04-14-2023 Basophils (Bld) [#/Vol] N/A [facility] Basophils/100 WBC Auto (Bld) Ordered By: Selvin Bey on 04-14-2023 Basophils/100 WBC (Bld) N/A [facility] Basophils/100 WBC Manual cnt (Bld)Ordered By: Selvin Bey on 04-14-2023 Basophils/100 WBC (Bld) 1 % 0-2 [facility] Calcium [Mass/volume] in Ser um or PlasmaOrdered By: Selvin Bey on 04-14-2023 Calcium [Mass/Vol] 9.4 mg/dL 8.6-10.3 [facility] Carbon dioxide, total [Moles /volume] in Serum or PlasmaOrdered By: Selvin Bey on 04-14-2023 CO2 [Moles/Vol] 20.5 mmol/L 21.0-31.0 [facility] Chloride [Moles/volume] in S marivel or PlasmaOrdered By: Selvin Bey on 04-14-2023 Chloride [Moles/Vol] 102 mmol/L 98-[address] [facility] Comprehensive Metabolic Pane jeremy 04-14-2023 Albumin [Mass/Vol] 3.3 g/dL Low 3.5-5.7 [facility] Comment on above: Performed By: #### C UBLD, CMP, CBC #### [facility] [address] [place] [address] [place] Albumin/Globulin [Mass ratio] 0.8 {ratio} Normal [facility] Comment on above: Performed By: #### C UBLD, CMP, CBC #### [facility] [address] [place] [id number] [facility] ALP [Catalytic activity/Vol] 82 U/L Normal 34-104 [facility] Comment on above: Performed By: #### C UBLD, CMP, CBC #### [facility] [address] ALT [Catalytic activity/Vol] 150 U/L High 7-52 [facility] Comment on above: Performed By: #### C UBLD, CMP, CBC #### [facility] [address] Anion gap [Moles/Vol] 11.3 mmol/L Normal 6.0-15.0 [facility] Comment on above: Performed By: #### C UBLD, CMP, CBC #### [facility] [address] [place] [address] [place] AST [Catalytic activity/Vol] 79 U/L High 13-39 [facility] Comment on above: Performed By: #### C UBLD, CMP, CBC #### [facility] [address] [place] [id number] [place] Bilirubin [Mass/Vol] 0.4 mg/dL Normal 0.3-1.[address] [facility] Comment on above: Performed By: #### C UBLD, CMP, CBC #### [facility] [address] [place] [id number] [place] Calcium [Mass/Vol] 9.4 mg/dL Normal 8.6-10.3 [facility] Comment on above: Performed By: #### C UBLD, CMP, CBC #### [facility] [address] [place] [id number] [place] Chloride [Moles/Vol] 102 mmol/L Normal 98-[address] [facility] Comment on above: Performed By: #### C UBLD, CMP, CBC #### [facility] [address] CO2 [Moles/Vol] 20.5 mmol/L Low 21.0-31.0 [facility] Comment on above: Performed By: #### C UBLD, CMP, CBC #### [facility] [address] Creatinine [Mass/Vol] 0.86 mg/dL Normal 0.60-1.20 [facility] Comment on above: Performed By: #### C UBLD, CMP, CBC #### [facility] [address] [place] [address] [place] Creatinine Clr Calc Pharmacy 87.48 [facility] Comment on above: Performed By: #### C UBLD, CMP, CBC #### [address] GFR/1.73 sq M.predicted MDRD (S/P/Bld) [Vol rate/Area] mL/min/{1.73_m2} [facility] Comment on above: Performed By: #### C UBPREMA, CMP, CBC #### [address] Globulin (S) [Mass/Vol] 4.0 g/dL [facility] Comment on above: Performed By: #### C UBLD, CMP, CBC #### [address] Glucose [Mass/Vol] 108 mg/dL High 70-100 [facility] Comment on above: Result Comment: [facility] Glucose Reference Range is dependent on time and content of last meal. Glucose of more than 200 mg/dL in a nonstressed, ambulatory subject supports the diagnosis of Diabetes Mellitus. ADA recommended reference range Performed By: #### C UBLD, CMP, CBC #### [facility] [address] Potassium [Moles/Vol] 3.8 mmol/L Normal 3.5-5.1 [facility] Comment on above: Performed By: #### C UBLD, CMP, CBC #### [facility] [address] Protein [Mass/Vol] 7.3 g/dL Normal 6.4-8.9 [facility] Comment on above: Performed By: #### C UBLD, CMP, CBC #### [facility] [address] [place] [address] Sodium [Moles/Vol] 130 mmol/L Low 136-145 [facility] Comment on above: Performed By: #### C UBLD, CMP, CBC #### [facility] [address] [place] [address] Urea nitrogen [Mass/Vol] 37 mg/dL High 7-25 [facility] Comment on above: Performed By: #### C UBLD, CMP, CBC #### [address] Creatinine [Mass/volume] in Serum or PlasmaOrdered By: Selvin Bey on 04-14-2023 Creatinine [Mass/Vol] 0.86 mg/dL 0.60-1.20 [facility] Diff and CBCon 04-14-2023 Anisocytosis Ql (Bld) Slight Normal [facility] Comment on above: Performed By: #### C UBLD, CMP, CBC #### [facility] [address] [place] [address] [place] Band form neutrophils/100 WBC (Bld) 2 % Normal 0-5 [facility] Comment on above: Performed By: #### C UBLD, CMP, CBC #### [facility] [address] [place] [address] [place] Basophils/100 WBC (Bld) 1 % Normal 0-2 [facility] Comment on above: Performed By: #### C UBLD, CMP, CBC #### [facility] [address] [place] [address] [place] Eosinophils/100 WBC (Bld) 3 % Normal 1-3 [facility] Comment on above: Performed By: #### C UBLD, CMP, CBC #### [facility] [address] [place] [address] [place] Erythrocyte distribution width (RBC) [Ratio] 16.9 % High 11.9-15.3 [facility] Comment on above: Performed By: #### C UBLD, CMP, CBC #### [address] Giant Platelet Tally 2 /100{WBC} Normal [facility] Comment on above: Performed By: #### C UBLD, CMP, CBC #### [address] Hematocrit (Bld) [Volume fraction] 36.0 % Normal 34.0-46.4 [facility] Comment on above: Performed By: #### C UBLD, CMP, CBC #### [address] Hemoglobin (Bld) [Mass/Vol] 11.5 g/dL Low 11.8-15.4 [facility] Comment on above: Performed By: #### C UBLD, CMP, CBC #### [address] Lymphocytes/100 WBC (Bld) 13 % Low 18-42 [facility] Comment on above: Performed By: #### C UBLD, CMP, CBC #### [address] MCH (RBC) [Entitic mass] 26.0 pg Normal 24.7-34.3 [facility] Comment on above: Performed By: #### C UBLD, CMP, CBC #### [address] MCV (RBC) [Entitic vol] 81.0 fL Normal 80-100 [facility] Comment on above: Performed By: #### C UBLD, CMP, CBC #### [address] Mean Corpuscular HGB Conc 32.1 g/dL Normal 32.0-35.0 [facility] Comment on above: Performed By: #### C UBLD, CMP, CBC #### [place] [id number] [place] Metamyelocytes 3 % High 0-0 [facility] Comment on above: Performed By: #### C UBLD, CMP, CBC #### [place] [address] [place] Microcytosis Slight Normal [facility] Comment on above: Performed By: #### C UBLD, CMP, CBC #### [place] [address] [place] Monocytes/100 WBC (Bld) 8 % Normal 2-11 [facility] Comment on above: Performed By: #### C UBLD, CMP, CBC #### [address] Nucleated Red Blood Cell 2 /100{WBC} High 0-0 [facility] Comment on above: Performed By: #### C UBLD, CMP, CBC #### [address] Platelet Estimate Increased Normal Normal [facility] Comment on above: Performed By: #### C UBLD, CMP, CBC #### [address] Platelet mean volume (Bld) [Entitic vol] 7.0 fL Normal 6.3-10.7 [facility] Comment on above: Result Comment: PERF ORMED BY: [place] [address] PATHOLOGIST MICROBIOLOGY QUALITY CONTROL TECHNICIAN IAN ACE M.D. Performed By: #### C UBLD, CMP, CBC #### [place] [address] [place] Platelet Morphology Normal Normal Normal [facility] Comment on above: Result Comment: PERF ORMED BY: [place] [address] PATHOLOGIST MICROBIOLOGY QUALITY CONTROL TECHNICIAN IAN ACE M.D. Performed By: #### C UBLD, CMP, CBC #### [place] [address] [place] Platelets (Bld) [#/Vol] 457 10*3/uL High 150-450 [facility] Comment on above: Performed By: #### C UBLD, CMP, CBC #### [facility] [address] [place] [address] [place] Polychromasia Slight Normal [facility] Comment on above: Performed By: #### C UBLD, CMP, CBC #### [facility] [address] RBC (Bld) [#/Vol] 4.44 10*6/uL Normal 3.60-5.00 [facility] Comment on above: Performed By: #### C UBLD, CMP, CBC #### [facility] [address] Segmented neutrophils/100 WBC (Bld) 71 % High 50-70 [facility] Comment on above: Performed By: #### C UBLD, CMP, CBC #### [facility] [address] [place] [address] [place] WBC (Bld) [#/Vol] 6.5 10*3/uL Normal 3.8-11.6 [facility] Comment on above: Performed By: #### C UBLD, CMP, CBC #### [facility] [address] Eosinophils Auto (Bld) [#/Vo l]Ordered By: Selvin Bey on 04-14-2023 Eosinophils (Bld) [#/Vol] N/A [facility] Eosinophils/100 WBC Auto (Bl d)Ordered By: Selvin Bey on 04-14-2023 Eosinophils/100 WBC (Bld) N/A [facility] Eosinophils/100 WBC Manual c nt (Bld)Ordered By: Selvin Bey on 04-14-2023 Eosinophils/100 WBC (Bld) 3 % 1-3 [facility] Erythrocyte distribution wid th Auto (RBC) [Ratio]Ordered By: Selvin Bey on 04-14-2023 Erythrocyte distribution width (RBC) [Ratio] 16.9 % 11.9-15.3 [facility] Giant platelets/100 leukocyt es [Ratio] in Blood by Manual countOrdered By: Selvin Bey on 04-14-2023 Giant platelets/100 WBC Manual cnt (Bld) [Ratio] 2 /100{WBC} [facility] Glucose [Mass/volume] in Ser um or PlasmaOrdered By: Selvin Bey on 04-14-2023 Glucose [Mass/Vol] 108 mg/dL 70-100 [facility] Comment on above: ADA recommended refe rence rangeRandom Glucose Reference Range is dependent on time and content of last meal. Glucose of more than 200 mg/dL in a nonstressed, ambulatory subject supports the diagnosis of Diabetes Mellitus. Hematocrit Auto (Bld) [Volum e fraction]Ordered By: Selvin Bey on 04-14-2023 Hematocrit (Bld) [Volume fraction] 36.0 % 34.0-46.4 [facility] Hemoglobin [Mass/volume] in BloodOrdered By: Selvin Bey on 04-14-2023 Hemoglobin (Bld) [Mass/Vol] 11.5 g/dL 11.8-15.4 [facility] Hepatitis Acute Panelon 11-0 HBsAg Screen Negative Normal Negative [facility] Comment on above: Performed By: #### L ACTIC, CMP, CBC #### [facility] [address] [place] [address] Hepatitis A Antibody IgM Negative Normal Negative [facility] Comment on above: Performed By: #### L ACTIC, CMP, CBC #### [facility] [address] Hepatitis B Core Antibody IgM Negative Normal Negative [facility] Comment on above: Performed By: #### L ACTIC, CMP, CBC #### [facility] [address] Hepatitis C Virus Antibody Non-Reactive Normal Non Reactive [facility] Comment on above: Performed By: #### L ACTIC, CMP, CBC #### [facility] [address] [place] [address] Interpretation Hepatitis C Normal . [facility] Comment on above: Result Comment: Not infected with HCV unless early or acute infection is suspected (which may be delayed in an immunocompromised individual), or other evidence exists to indicate HCV infection. Performed at: CB - [facility] [address] [id number] Pizza Baker: Mohsen Mccarthy PhD, Phone: [phone] PERFORMED BY: [place] [address] PATHOLOGIST MICROBIOLOGY QUALITY CONTROL TECHNICIAN IAN ACE M.D. Performed By: #### L ACTIC, CMP, CBC #### [address] Hepatitis B virus surface Ag [Presence] in Serum or Plasma by ImmunoassayOrdered By: Selvin Bey on 04-14-2023 HBV surface Ag IA Ql Negative Negative [facility] Hepatitis C virus IgG Ab [Pr esence] in Serum or Plasma by ImmunoassayOrdered By: Selvin Bey on 04-14-2023 HCV IgG IA Ql Non-Reactive Non Reactive [facility] Hepatitis C virus RNA [Units /volume] (viral load) in Serum or Plasma by JUJU with probOrdered By: Selvin Bey on 04-14-2023 HCV RNA JUJU+probe Qn N/A [facility] Hepatitis C virus RNA [log u nits/volume] (viral load) in Serum or Plasma by JUJU withOrdered By: Selvin Bey on 04-14-2023 HCV RNA JUJU+probe [Log units/Vol] N/A [facility] Leukocytes [#/volume] correc julia for nucleated erythrocytes in Blood by Automated counOrdered By: Selvin Bey on 04-14-2023 WBC corrected for nucl RBC Auto (Bld) [#/Vol] 6.5 10*3/uL 3.8-11.6 [facility] Lymphocytes Auto (Bld) [#/Vo l]Ordered By: Selvin Bey on 04-14-2023 Lymphocytes (Bld) [#/Vol] N/A [facility] Lymphocytes/100 WBC Auto (Bl d)Ordered By: Selvin Bey on 04-14-2023 Lymphocytes/100 WBC (Bld) N/A [facility] Lymphocytes/100 WBC Manual c nt (Bld)Ordered By: Selvin Bey on 04-14-2023 Lymphocytes/100 WBC (Bld) 13 % 18-42 [facility] MCH Auto (RBC) [Entitic mass ]Ordered By: Selvin Bey on 04-14-2023 MCH (RBC) [Entitic mass] 26.0 pg 24.7-34.3 [facility] MCHC Auto (RBC) [Mass/Vol]Or dered By: Selvin Bey on 04-14-2023 MCHC (RBC) [Mass/Vol] 32.1 g/dL 32.0-35.0 [facility] MCV Auto (RBC) [Entitic vol] Ordered By: Selvin Bey on 04-14-2023 MCV (RBC) [Entitic vol] 81.0 fL 80-100 [facility] Magnesiumon 04-14-2023 Magnesium [Mass/Vol] 2.3 mg/dL Normal 1.9-2.[address] [facility] Comment on above: Result Comment: PERF ORMED BY: [place] [address] PATHOLOGIST MICROBIOLOGY QUALITY CONTROL TECHNICIAN IAN ACE M.D. Performed By: #### C UBLD, CMP, CBC #### [address] Magnesium [Mass/volume] in S marivel or PlasmaOrdered By: Selvin Bey on 04-14-2023 Magnesium [Mass/Vol] 2.3 mg/dL 1.9-2.[address] [facility] Metamyelocytes/100 WBC Manua l cnt (Bld)Ordered By: Selvin Bey on 04-14-2023 Metamyelocytes/100 WBC (Bld) 3 % 0-0 [facility] Microcytes LM Ql (Bld)Ordere d By: Selvin Bey on 04-14-2023 Microcytes Ql (Bld) Slight [facility] Monocytes Auto (Bld) [#/Vol] Ordered By: Selvin Bey on 04-14-2023 Monocytes (Bld) [#/Vol] N/A [facility] Monocytes/100 WBC Auto (Bld) Ordered By: Selvin Bey on 04-14-2023 Monocytes/100 WBC (Bld) N/A [facility] Monocytes/100 WBC Manual cnt (Bld)Ordered By: Selvin Bey on 04-14-2023 Monocytes/100 WBC (Bld) 8 % 2-11 [facility] Neutrophils Auto (Bld) [#/Vo l]Ordered By: Selvin Bey on 04-14-2023 Neutrophils (Bld) [#/Vol] N/A [facility] Neutrophils/100 WBC Auto (Bl d)Ordered By: Selvin Bey on 04-14-2023 Neutrophils/100 WBC (Bld) N/A [facility] No Panel InformationOrdered By: Selvin Lyels on 04-14-2023 Hepatitis A IgM Antibody Negative Negative [facility] Hepatitis B Core IgM Antibody Negative Negative [facility] Hepatitis C Interpretation See comment . [facility] Comment on above: Not infected with HC V unless early or acute infection issuspected (which may be delayed in an immunocompromisedindividual), or other evidence exists to indicate HCVinfection.Performed at: [email or web address] [address] Director: Mohsen Mccarthy PhD, Phone: [phone] Estimated GFR (CKD-EPI) > 60.0 mL/Min [facility] Creatinine Clearance (Chem 87.48 [facility] Nucleated RBC/100 WBC Manual cnt (Bld) [Ratio]Ordered By: Selvin Bey on 04-14-2023 Nucleated RBC/100 WBC (Bld) [Ratio] 2 /100{WBC} 0-0 [facility] Nucleated erythrocytes [Pres ence] in Blood by Automated countOrdered By: Selvin Bey on 04-14-2023 Nucleated RBC Auto Ql (Bld) N/A [facility] Phosphoruson 04-14-2023 Phosphate [Mass/Vol] 2.6 mg/dL Low 3.7-7.[address] [facility] Comment on above: Performed By: #### C UBLD, CMP, CBC #### [facility] [address] [place] [address] Platelet adequacy [Presence] in Blood by Light microscopyOrdered By: Selvin Bey on 04-14-2023 Platelets LM Ql (Bld) Increased Normal [facility] Platelet mean volume Auto (B ld) [Entitic vol]Ordered By: Selvin Bey on 04-14-2023 Platelet mean volume (Bld) [Entitic vol] 7.0 fL 6.3-10.7 [facility] Platelet morphology finding [Identifier] in BloodOrdered By: Selvin Bey on 04-14-2023 Platelet morphology finding Nom (Bld) Normal Normal [facility] Platelets Auto (Bld) [#/Vol] Ordered By: Selvin Bey on 04-14-2023 Platelets (Bld) [#/Vol] 457 10*3/uL 150-450 [facility] Polychromasia [Presence] in Blood by Light microscopyOrdered By: Selvin Bey on 04-14-2023 Polychromasia LM Ql (Bld) Slight [facility] Potassium [Moles/volume] in Serum or PlasmaOrdered By: Selvin Bey on 04-14-2023 Potassium [Moles/Vol] 3.8 mmol/L 3.5-5.1 [facility] RBC Auto (Bld) [#/Vol]Ordere d By: Selvin Bey on 04-14-2023 RBC (Bld) [#/Vol] 4.44 10*6/uL 3.60-5.00 [facility] RBC morphologyOrdered By: Ra taco Bey on 04-14-2023 RBC morphology finding Nom (Bld) N/A [facility] Segmented neutrophils/100 WB C Manual cnt (Bld)Ordered By: Selvin Bey on 04-14-2023 Segmented neutrophils/100 WBC (Bld) 71 % 50-70 [facility] Serum or plasma anion gap de terminationOrdered By: Selvin Bey on 04-14-2023 Anion gap [Moles/Vol] 11.3 mmol/L 6.0-15.0 [facility] Sodium [Moles/volume] in Ser um or PlasmaOrdered By: Selvin Bey on 04-14-2023 Sodium [Moles/Vol] 130 mmol/L 136-145 [facility] US venous duplex LE BIon US venous duplex LE BI [place] [address] Ultrasound Report Signed Patient: [place] Cesar MR#: [id number] : 1955 Acct:[id number] Age/Sex: 67 / F ADM Date: 04/10/23 Loc: Room: [address] [place] [address] Type: ADM IN Attending Dr: Selvin Bey MD Ordering Provider: Selvin Bey MD Date of Service: 04/13/23 US/US venous duplex LE BI: Edema. r/o dvt Copies to: Selvin Bey MD BILATERAL LOWER EXTREMITY VENOUS DUPLEX INDICATION: Painful swollen legs PROCEDURE: Color-flow duplex scanning is used to interrogate the deep venous system of the right and left lower extremities. The common femoral vein, femoral vein and popliteal vein show good compressibility with normal proximal and distal augmentation. The posterior tibial and peroneal veins are not well visualized. The right greater saphenous vein is incompressible and the technologist reports that there is been previous laser vein closure. The left greater saphenous vein is compressible. US/US venous duplex LE BI IMPRESSION: No evidence for deep vein thrombosis is seen in either lower extremity. The examination is incomplete at the calf vein level. The right greater saphenous vein is incompressible. The left greater saphenous vein is patent and does compress. Impression dictated by: Du Zaragoza M.D.04/14/2023 11:07 AM Dictation Location: [place] [address] Tech: Hermelinda Knox Transcribed By: MARIA VICTORIA 04/14/231106 Dictated By: Du Zaragoza MD 04/14/23 110 Signed By: 04/14/23 110 Normal [facility] Urea nitrogen [Mass/volume] in Serum or PlasmaOrdered By: Selvin Bey on 04-14-2023 Urea nitrogen [Mass/Vol] 37 mg/dL 7-25 [facility] Vancomycin,Troughon 04-14-20 Vancomycin,Trough 16.7 ug/mL Normal 10.0-20.0 [facility] Comment on above: Result Comment: Last dose: - PERFORMED BY: [facility] [address] [place] [address] PATHOLOGIST MICROBIOLOGY QUALITY CONTROL TECHNICIAN IAN ACE M.D. Performed By: #### C UBLD, CMP, CBC #### [facility] [address] [place] [address] [place] WBC Auto (Bld) [#/Vol]Ordere d By: Selvin Bey on 04-14-2023 WBC (Bld) [#/Vol] 6.5 10*3/uL 3.8-11.6 [facility] Basic Metabolic Panelon Anion gap [Moles/Vol] 11.7 mmol/L Normal 6.0-15.0 [facility] Comment on above: Performed By: #### L ACTIC, CMP, CBC #### [facility] [address] [place] [address] [place] Calcium [Mass/Vol] 8.9 mg/dL Normal 8.6-10.3 [facility] Comment on above: Performed By: #### L ACTIC, CMP, CBC #### [facility] [address] [place] [address] [place] Chloride [Moles/Vol] 100 mmol/L Normal 98-[address] [facility] Comment on above: Performed By: #### L ACTIC, CMP, CBC #### [facility] [address] [place] [address] [place] CO2 [Moles/Vol] 20.7 mmol/L Low 21.0-31.0 [facility] Comment on above: Performed By: #### L ACTIC, CMP, CBC #### [facility] [address] [place] [address] [place] Creatinine [Mass/Vol] 1.10 mg/dL Normal 0.60-1.20 [facility] Comment on above: Performed By: #### L ACTIC, CMP, CBC #### [facility] [address] [place] [address] [place] Creatinine Clr Calc Pharmacy 68.40 Normal [facility] Comment on above: Result Comment: PERF ORMED BY: [place] [address] PATHOLOGIST MICROBIOLOGY QUALITY CONTROL TECHNICIAN IAN ACE M.D. Performed By: #### L ALEXX ADLER, CBC #### [address] GFR/1.73 sq M.predicted MDRD (S/P/Bld) [Vol rate/Area] 55.418 mL/min/{1.73_m2} Normal [facility] Comment on above: Performed By: #### L ALEXX ADLER, CBC #### [address] Glucose [Mass/Vol] 132 mg/dL High 70-100 [facility] Comment on above: Result Comment: [facility] Glucose Reference Range is dependent on time and content of last meal. Glucose of more than 200 mg/dL in a nonstressed, ambulatory subject supports the diagnosis of Diabetes Mellitus. ADA recommended reference range Performed By: #### L ALEXX ADLER, CBC #### [address] Potassium [Moles/Vol] 3.4 mmol/L Low 3.5-5.1 [facility] Comment on above: Performed By: #### L ALEXX ADLER, CBC #### [address] Sodium [Moles/Vol] 129 mmol/L Low 136-145 [facility] Comment on above: Performed By: #### L ALEXX ADLER, CBC #### [address] Urea nitrogen [Mass/Vol] 42 mg/dL High 7-25 [facility] Comment on above: Performed By: #### L ALEXX ADLER, CBC #### [address] Ovalocyte detectionOrdered B y: Malorie Nathan on 04-13-2023 Ovalocytes LM Ql (Bld) Slight Fi [facility] Platelets Large [Presence] i n Blood by Light microscopyOrdered By: Malorie Nathan on 04-13-2023 Platelets Large LM Ql (Bld) Slight [facility] Poikilocytosis [Presence] in Blood by Light microscopyOrdered By: Malorie Nathan on 04-13-2023 Poikilocytosis LM Ql (Bld) Slight [facility] Scan and CBCon 04-13-2023 Anisocytosis Ql (Bld) Slight Normal [facility] Comment on above: Performed By: #### L ACTIC, CMP, CBC #### [facility] [address] [place] [address] [place] Basophils (Bld) [#/Vol] 0.1 10*3/uL Normal 0.0-0.2 [facility] Comment on above: Performed By: #### L ACTIC, CMP, CBC #### [facility] [address] [place] [address] [place] Basophils/100 WBC (Bld) 1.3 % Normal . [facility] Comment on above: Performed By: #### L ACTIC, CMP, CBC #### [facility] [address] [place] [address] [place] Eosinophils (Bld) [#/Vol] 0.2 10*3/uL Normal 0.0-0.45 [facility] Comment on above: Performed By: #### L ACTIC, CMP, CBC #### [facility] [address] [place] [id number] [place] Eosinophils/100 WBC (Bld) 3.0 % Normal . [facility] Comment on above: Performed By: #### L ACTIC, CMP, CBC #### [facility] [address] [place] [address] [place] Erythrocyte distribution width (RBC) [Ratio] 16.7 % High 11.9-15.3 [facility] Comment on above: Performed By: #### L ACTIC, CMP, CBC #### [facility] [address] Hematocrit (Bld) [Volume fraction] 33.0 % Low 34.0-46.4 [facility] Comment on above: Performed By: #### L ACTIC, CMP, CBC #### [address] Hemoglobin (Bld) [Mass/Vol] 10.7 g/dL Low 11.8-15.4 [facility] Comment on above: Performed By: #### L ACTIC, CMP, CBC #### [address] Large Platelets Slight Normal [facility] Comment on above: Result Comment: PERF ORMED BY: [place] [address] PATHOLOGIST MICROBIOLOGY QUALITY CONTROL TECHNICIAN IAN ACE M.D. Performed By: #### L ACTIC, CMP, CBC #### [address] Lymphocytes (Bld) [#/Vol] 0.8 10*3/uL Low 1.00-4.8 [facility] Comment on above: Performed By: #### L ACTIC, CMP, CBC #### [address] Lymphocytes/100 WBC (Bld) 10.6 % Normal . [facility] Comment on above: Performed By: #### L ACTIC, CMP, CBC #### [address] MCH (RBC) [Entitic mass] 26.0 pg Normal 24.7-34.3 [facility] Comment on above: Performed By: #### L ACTIC, CMP, CBC #### [address] MCV (RBC) [Entitic vol] 80.2 fL Normal 80-100 [facility] Comment on above: Performed By: #### L ACTIC, CMP, CBC #### [address] Mean Corpuscular HGB Conc 32.4 g/dL Normal 32.0-35.0 [facility] Comment on above: Performed By: #### L ACTIC, CMP, CBC #### [address] Microcytosis Slight Normal [facility] Comment on above: Performed By: #### L ACTIC, CMP, CBC #### [address] Monocytes (Bld) [#/Vol] 0.8 10*3/uL Normal 0.0-0.8 [facility] Comment on above: Performed By: #### L ACTIC, CMP, CBC #### [address] Monocytes/100 WBC (Bld) 11.9 % Normal . [facility] Comment on above: Performed By: #### L ACTIC, CMP, CBC #### [address] Neutrophils (Bld) [#/Vol] 5.2 10*3/uL Normal 1.8-7.7 [facility] Comment on above: Performed By: #### L ACTIC, CMP, CBC #### [address] Neutrophils/100 WBC (Bld) 73.2 % Normal . [facility] Comment on above: Performed By: #### L ACTIC, CMP, CBC #### [address] NRBC% 0.2 /100{WBC} Normal 0-0.5 [facility] Comment on above: Performed By: #### L ACTIC, CMP, CBC #### [address] Ovalocytes Slight Normal [facility] Comment on above: Performed By: #### L ACTIC, CMP, CBC #### [address] Platelet Estimate Normal Normal Normal [facility] Comment on above: Performed By: #### L ACTIC, CMP, CBC #### [address] Platelet mean volume (Bld) [Entitic vol] 6.9 fL Normal 6.3-10.7 [facility] Comment on above: Performed By: #### L ACTIC, CMP, CBC #### [facility] [address] [place] [address] [place] Platelets (Bld) [#/Vol] 390 10*3/uL Normal 150-450 [facility] Comment on above: Performed By: #### L ACTIC, CMP, CBC #### [facility] [address] Poikilocytosis Slight Normal [facility] Comment on above: Performed By: #### L ACTIC, CMP, CBC #### [facility] [address] Polychromasia Slight Normal [facility] Comment on above: Performed By: #### L ACTIC, CMP, CBC #### [address] RBC (Bld) [#/Vol] 4.11 10*6/uL Normal 3.60-5.00 [facility] Comment on above: Performed By: #### L ACTIC, CMP, CBC #### [address] WBC (Bld) [#/Vol] 7.1 10*3/uL Normal 3.8-11.6 [facility] Comment on above: Performed By: #### L ACTIC, CMP, CBC #### [address] Serum or plasma trough vanco mycin levelOrdered By: Neeraj Farrell on 04-13-2023 Vancomycin trough [Mass/Vol] 16.7 ug/mL 10.0-20.0 [facility] Comment on above: Last dose: - Vancomycin [Mass/volume] in Serum or Plasma --peakOrdered By: Neeraj Farrell on 04-13-2023 Vancomycin peak [Mass/Vol] 32.0 ug/mL 20.0-40.0 [facility] Comment on above: Last dose: - Vancomycin,Peakon 04-13-2023 Vancomycin,Peak 32.0 ug/mL Normal 20.0-40.0 [facility] Comment on above: Order Comment: Comme nt ?DRAW 1 HOUR AFTER INFUSION COMPLETES Date of last dose?: 20230412 Time of last dose?: 2329 Result Comment: Last dose: - PERFORMED BY: [place] [address] PATHOLOGIST MICROBIOLOGY QUALITY CONTROL TECHNICIAN IAN ACE M.D. Performed By: #### C UBLD, CMP, CBC #### [address] Basic Metabolic Panelon 11-0 -2022 Anion gap [Moles/Vol] 12.9 mmol/L Normal 6.0-15.0 [facility] Comment on above: Performed By: #### C UBLD, CMP, CBC #### [address] Calcium [Mass/Vol] 8.9 mg/dL Normal 8.6-10.3 [facility] Comment on above: Performed By: #### C UBLD, CMP, CBC #### [address] Chloride [Moles/Vol] 100 mmol/L Normal 98-[address] [facility] Comment on above: Performed By: #### C UBLD, CMP, CBC #### [address] CO2 [Moles/Vol] 19.0 mmol/L Low 21.0-31.0 [facility] Comment on above: Performed By: #### C UBLD, CMP, CBC #### [address] Creatinine [Mass/Vol] 1.13 mg/dL Normal 0.60-1.20 [facility] Comment on above: Performed By: #### C UBLD, CMP, CBC #### [address] Creatinine Clr Calc Pharmacy 65.44 Normal [facility] Comment on above: Result Comment: PERF ORMED BY: [place] [address] PATHOLOGIST MICROBIOLOGY QUALITY CONTROL TECHNICIAN IAN ACE M.D. Performed By: #### C UBLD, CMP, CBC #### [facility] [address] [place] [address] [place] GFR/1.73 sq M.predicted MDRD (S/P/Bld) [Vol rate/Area] 53.657 mL/min/{1.73_m2} Normal [facility] Comment on above: Performed By: #### C UBLD, CMP, CBC #### [facility] [address] Glucose [Mass/Vol] 119 mg/dL High 70-100 [facility] Comment on above: Result Comment: [facility] Glucose Reference Range is dependent on time and content of last meal. Glucose of more than 200 mg/dL in a nonstressed, ambulatory subject supports the diagnosis of Diabetes Mellitus. ADA recommended reference range Performed By: #### C UBLD, CMP, CBC #### [address] Potassium [Moles/Vol] 3.9 mmol/L Normal 3.5-5.1 [facility] Comment on above: Performed By: #### C UBLD, CMP, CBC #### [address] Sodium [Moles/Vol] 128 mmol/L Low 136-145 [facility] Comment on above: Performed By: #### C UBLD, CMP, CBC #### [place] [address] [place] Urea nitrogen [Mass/Vol] 43 mg/dL High 7-25 [facility] Comment on above: Performed By: #### C UBLD, CMP, CBC #### [address] Complete Blood Count Auto Di ffon 04-12-2023 Basophils (Bld) [#/Vol] 0.0 10*3/uL Normal 0.0-0.2 [facility] Comment on above: Result Comment: PERF ORMED BY: [place] [address] PATHOLOGIST MICROBIOLOGY QUALITY CONTROL TECHNICIAN IAN ACE M.D. Performed By: #### C UBLD, CMP, CBC #### [place] [address] [place] Basophils/100 WBC (Bld) 0.5 % Normal . [facility] Comment on above: Performed By: #### C UBLD, CMP, CBC #### [address] Eosinophils (Bld) [#/Vol] 0.1 10*3/uL Normal 0.0-0.45 [facility] Comment on above: Performed By: #### C UBLD, CMP, CBC #### [address] Eosinophils/100 WBC (Bld) 1.6 % Normal . [facility] Comment on above: Performed By: #### C UBLD, CMP, CBC #### [address] Erythrocyte distribution width (RBC) [Ratio] 16.9 % High 11.9-15.3 [facility] Comment on above: Performed By: #### C UBLD, CMP, CBC #### [address] Hematocrit (Bld) [Volume fraction] 31.7 % Low 34.0-46.4 [facility] Comment on above: Performed By: #### C UBLD, CMP, CBC #### [place] [address] [place] Hemoglobin (Bld) [Mass/Vol] 10.3 g/dL Low 11.8-15.4 [facility] Comment on above: Performed By: #### C UBLD, CMP, CBC #### [place] [address] [place] Lymphocytes (Bld) [#/Vol] 0.6 10*3/uL Low 1.00-4.8 [facility] Comment on above: Performed By: #### C UBLD, CMP, CBC #### [place] [address] [place] Lymphocytes/100 WBC (Bld) 8.2 % Normal . [facility] Comment on above: Performed By: #### C UBLD, CMP, CBC #### [address] MCH (RBC) [Entitic mass] 26.2 pg Normal 24.7-34.3 [facility] Comment on above: Performed By: #### C UBLD, CMP, CBC #### [address] MCV (RBC) [Entitic vol] 80.7 fL Normal 80-100 [facility] Comment on above: Performed By: #### C UBLD, CMP, CBC #### [address] Mean Corpuscular HGB Conc 32.5 g/dL Normal 32.0-35.0 [facility] Comment on above: Performed By: #### C UBLD, CMP, CBC #### [address] Monocytes (Bld) [#/Vol] 1.0 10*3/uL High 0.0-0.8 [facility] Comment on above: Performed By: #### C UBLD, CMP, CBC #### [address] Monocytes/100 WBC (Bld) 13.4 % Normal . [facility] Comment on above: Performed By: #### C UBLD, CMP, CBC #### [address] Neutrophils (Bld) [#/Vol] 5.6 10*3/uL Normal 1.8-7.7 [facility] Comment on above: Performed By: #### C UBLD, CMP, CBC #### [address] Neutrophils/100 WBC (Bld) 76.3 % Normal . [facility] Comment on above: Performed By: #### C UBLD, CMP, CBC #### [place] [id number] [place] NRBC% 0.3 /100{WBC} Normal 0-0.5 [facility] Comment on above: Performed By: #### C UBLD, CMP, CBC #### [address] Platelet mean volume (Bld) [Entitic vol] 7.2 fL Normal 6.3-10.7 [facility] Comment on above: Performed By: #### C UBLD, CMP, CBC #### [address] Platelets (Bld) [#/Vol] 363 10*3/uL Normal 150-450 [facility] Comment on above: Performed By: #### C UBLD, CMP, CBC #### [address] RBC (Bld) [#/Vol] 3.93 10*6/uL Normal 3.60-5.00 [facility] Comment on above: Performed By: #### C UBLD, CMP, CBC #### [address] WBC (Bld) [#/Vol] 7.3 10*3/uL Normal 3.8-11.6 [facility] Comment on above: Performed By: #### C UBLD, CMP, CBC #### [address] Arterial Blood Gason 023 ABG Base Excess -15.4 mmol/L Low -3.0-3.0 [facility] Comment on above: Performed By: #### C UBLD, CMP, CBC #### [address] ABG Frac Inspired O2 44 % Normal [facility] Comment on above: Performed By: #### C UBLD, CMP, CBC #### [address] ABG Liter Flow 6 Normal [facility] Comment on above: Performed By: #### C UBLD, CMP, CBC #### [facility] [address] ABG Oxygen Content 7.8 mmol/L Normal 6.6-9.7 [facility] Comment on above: Performed By: #### C UBLD, CMP, CBC #### [facility] [address] ABG Oxygen Saturation 97.6 % Normal 95.0-100.0 [facility] Comment on above: Performed By: #### C UBLD, CMP, CBC #### [facility] [address] ABG PCO2 52.5 mm[Hg] Off scale high 35.0-45.0 [facility] Comment on above: Performed By: #### C UBLD, CMP, CBC #### [facility] [address] ABG PH 7.07 Off scale low 7.35-7.45 [facility] Comment on above: Performed By: #### C UBLD, CMP, CBC #### [facility] [address] ABG PO2 105.6 mm[Hg] High 80.0-100.0 [facility] Comment on above: Performed By: #### C UBLD, CMP, CBC #### [facility] [address] [place] [address] [place] CO2 [Moles/Vol] 16.3 mmol/L Low 23.0-27.0 [facility] Comment on above: Performed By: #### C UBLD, CMP, CBC #### [facility] [address] [place] [address] [place] HCO3 (Bld) [Moles/Vol] 14.7 mmol/L Low 23.0-29.0 [facility] Comment on above: Performed By: #### C UBLD, CMP, CBC #### [facility] [address] [place] [address] [place] Respiratory Critical Normal [facility] Comment on above: Result Comment: Crit ical Value called on: 04/11/2023 at 08:56 PERFORMED BY: [place] [address] PATHOLOGIST MICROBIOLOGY QUALITY CONTROL TECHNICIAN IAN ACE M.D. Performed By: #### C UBLD, CMP, CBC #### [address] VBG Draw Site Right Radial Normal [facility] Comment on above: Performed By: #### C UBLD, CMP, CBC #### [address] B-Type Natriuretic Peptideon 04-11-2023 Natriuretic peptide B (Bld) [Mass/Vol] 181.0 pg/mL High 5-100 [facility] Comment on above: Result Comment: PERF ORMED BY: [place] [address] PATHOLOGIST MICROBIOLOGY QUALITY CONTROL TECHNICIAN IAN ACE M.D. Performed By: #### C UBLD, CMP, CBC #### [address] Bacterial blood cultureOrder ed By: Laith Monte on 04-11-2023 Bacteria identified Cx Nom (Bld) NO GROWTH 5 DAYS [facility] Blood Cultureon 04-11-2023 Bacteria identified Cx Nom (Bld) NO GROWTH 5 DAYS PERFORMED BY: [place] [address] PATHOLOGIST MICROBIOLOGY QUALITY CONTROL TECHNICIAN IAN ACE M.D. [facility] Comment on above: Performed By: #### C UBLD, CMP, CBC #### [address] Bacteria identified Cx Nom (Bld) NO GROWTH 5 DAYS PERFORMED BY: [place] [address] PATHOLOGIST MICROBIOLOGY QUALITY CONTROL TECHNICIAN IAN ACE M.D. [facility] Comment on above: Performed By: #### C UBLD, CMP, CBC #### [address] Complete Blood Count Auto Di ffon 04-11-2023 Basophils (Bld) [#/Vol] 0.1 10*3/uL Normal 0.0-0.2 [facility] Comment on above: Result Comment: PERF ORMED BY: [place] [address] PATHOLOGIST MICROBIOLOGY QUALITY CONTROL TECHNICIAN IAN ACE M.D. Performed By: #### C UBLD, CMP, CBC #### [address] Basophils/100 WBC (Bld) 0.6 % Normal . [facility] Comment on above: Performed By: #### C UBLD, CMP, CBC #### [address] Eosinophils (Bld) [#/Vol] 0.0 10*3/uL Normal 0.0-0.45 [facility] Comment on above: Performed By: #### C UBLD, CMP, CBC #### [address] Eosinophils/100 WBC (Bld) 0.1 % Normal . [facility] Comment on above: Performed By: #### C UBLD, CMP, CBC #### [address] Erythrocyte distribution width (RBC) [Ratio] 17.2 % High 11.9-15.3 [facility] Comment on above: Performed By: #### C UBLD, CMP, CBC #### [address] Hematocrit (Bld) [Volume fraction] 37.9 % Normal 34.0-46.4 [facility] Comment on above: Performed By: #### C UBLD, CMP, CBC #### [place] [address] [place] Hemoglobin (Bld) [Mass/Vol] 11.8 g/dL Normal 11.8-15.4 [facility] Comment on above: Performed By: #### C UBLD, CMP, CBC #### [place] [address] [place] Lymphocytes (Bld) [#/Vol] 0.3 10*3/uL Low 1.00-4.8 [facility] Comment on above: Performed By: #### C UBLD, CMP, CBC #### [address] Lymphocytes/100 WBC (Bld) 1.8 % Normal . [facility] Comment on above: Performed By: #### C UBLD, CMP, CBC #### [address] MCH (RBC) [Entitic mass] 25.9 pg Normal 24.7-34.3 [facility] Comment on above: Performed By: #### C UBLD, CMP, CBC #### [address] MCV (RBC) [Entitic vol] 82.9 fL Normal 80-100 [facility] Comment on above: Performed By: #### C UBLD, CMP, CBC #### [address] Mean Corpuscular HGB Conc 31.2 g/dL Low 32.0-35.0 [facility] Comment on above: Performed By: #### C UBLD, CMP, CBC #### [address] Monocytes (Bld) [#/Vol] 1.0 10*3/uL High 0.0-0.8 [facility] Comment on above: Performed By: #### C UBLD, CMP, CBC #### [place] [address] [place] Monocytes/100 WBC (Bld) 6.9 % Normal . [facility] Comment on above: Performed By: #### C UBLD, CMP, CBC #### [address] Neutrophils (Bld) [#/Vol] 13.7 10*3/uL High 1.8-7.7 [facility] Comment on above: Performed By: #### C UBLD, CMP, CBC #### [address] [place] [address] [place] Neutrophils/100 WBC (Bld) 90.6 % Normal . [facility] Comment on above: Performed By: #### C UBLD, CMP, CBC #### [facility] [address] NRBC% 0.2 /100{WBC} Normal 0-0.5 [facility] Comment on above: Performed By: #### C UBLD, CMP, CBC #### [facility] [address] Platelet mean volume (Bld) [Entitic vol] 6.9 fL Normal 6.3-10.7 [facility] Comment on above: Performed By: #### C UBLD, CMP, CBC #### [facility] [address] Platelets (Bld) [#/Vol] 443 10*3/uL Normal 150-450 [facility] Comment on above: Performed By: #### C UBLD, CMP, CBC #### [address] RBC (Bld) [#/Vol] 4.56 10*6/uL Normal 3.60-5.00 [facility] Comment on above: Performed By: #### C UBLD, CMP, CBC #### [address] WBC (Bld) [#/Vol] 15.1 10*3/uL High 3.8-11.6 [facility] Comment on above: Performed By: #### C UBLD, CMP, CBC #### [place] [address] [place] Basophils (Bld) [#/Vol] 0.0 10*3/uL Normal 0.0-0.2 [facility] Comment on above: Result Comment: PERF ORMED BY: [place] [address] PATHOLOGIST MICROBIOLOGY QUALITY CONTROL TECHNICIAN IAN ACE M.D. Performed By: #### C UBLD, CMP, CBC #### [place] [address] [place] Basophils/100 WBC (Bld) 0.2 % Normal . [facility] Comment on above: Performed By: #### C UBLD, CMP, CBC #### [address] Eosinophils (Bld) [#/Vol] 0.1 10*3/uL Normal 0.0-0.45 [facility] Comment on above: Performed By: #### C UBLD, CMP, CBC #### [address] Eosinophils/100 WBC (Bld) 0.7 % Normal . [facility] Comment on above: Performed By: #### C UBLD, CMP, CBC #### [address] Erythrocyte distribution width (RBC) [Ratio] 17.0 % High 11.9-15.3 [facility] Comment on above: Performed By: #### C UBLD, CMP, CBC #### [address] Hematocrit (Bld) [Volume fraction] 39.3 % Normal 34.0-46.4 [facility] Comment on above: Performed By: #### C UBLD, CMP, CBC #### [address] Hemoglobin (Bld) [Mass/Vol] 12.2 g/dL Normal 11.8-15.4 [facility] Comment on above: Performed By: #### C UBLD, CMP, CBC #### [place] [address] [place] Lymphocytes (Bld) [#/Vol] 1.0 10*3/uL Normal 1.00-4.8 [facility] Comment on above: Performed By: #### C UBLD, CMP, CBC #### [place] [address] [place] Lymphocytes/100 WBC (Bld) 6.0 % Normal . [facility] Comment on above: Performed By: #### C UBLD, CMP, CBC #### [facility] [address] MCH (RBC) [Entitic mass] 25.7 pg Normal 24.7-34.3 [facility] Comment on above: Performed By: #### C UBLD, CMP, CBC #### [facility] [address] MCV (RBC) [Entitic vol] 83.1 fL Normal 80-100 [facility] Comment on above: Performed By: #### C UBLD, CMP, CBC #### [address] Mean Corpuscular HGB Conc 30.9 g/dL Low 32.0-35.0 [facility] Comment on above: Performed By: #### C UBLD, CMP, CBC #### [address] Monocytes (Bld) [#/Vol] 1.4 10*3/uL High 0.0-0.8 [facility] Comment on above: Performed By: #### C UBLD, CMP, CBC #### [address] Monocytes/100 WBC (Bld) 7.8 % Normal . [facility] Comment on above: Performed By: #### C UBLD, CMP, CBC #### [address] Neutrophils (Bld) [#/Vol] 14.8 10*3/uL High 1.8-7.7 [facility] Comment on above: Performed By: #### C UBLD, CMP, CBC #### [address] Neutrophils/100 WBC (Bld) 85.3 % Normal . [facility] Comment on above: Performed By: #### C UBLD, CMP, CBC #### [address] NRBC% 0.1 /100{WBC} Normal 0-0.5 [facility] Comment on above: Performed By: #### C UBLD, CMP, CBC #### [facility] [address] Platelet mean volume (Bld) [Entitic vol] 7.2 fL Normal 6.3-10.7 [facility] Comment on above: Performed By: #### C UBLD, CMP, CBC #### [facility] [address] Platelets (Bld) [#/Vol] 488 10*3/uL High 150-450 [facility] Comment on above: Performed By: #### C UBLD, CMP, CBC #### [address] RBC (Bld) [#/Vol] 4.73 10*6/uL Normal 3.60-5.00 [facility] Comment on above: Performed By: #### C UBLD, CMP, CBC #### [address] WBC (Bld) [#/Vol] 17.4 10*3/uL High 3.8-11.6 [facility] Comment on above: Performed By: #### C UBLD, CMP, CBC #### [address] Comprehensive Metabolic Pane jeremy 04-11-2023 Albumin [Mass/Vol] 3.5 g/dL Normal 3.5-5.7 [facility] Comment on above: Performed By: #### C UBLD, CMP, CBC #### [address] Albumin/Globulin [Mass ratio] 0.9 {ratio} Normal [facility] Comment on above: Performed By: #### C UBLD, CMP, CBC #### [address] ALP [Catalytic activity/Vol] 96 U/L Normal 34-104 [facility] Comment on above: Performed By: #### C UBLD, CMP, CBC #### [address] [place] [address] [place] ALT [Catalytic activity/Vol] 117 U/L High 7-52 [facility] Comment on above: Performed By: #### C UBLD, CMP, CBC #### [facility] [address] Anion gap [Moles/Vol] 12.4 mmol/L Normal 6.0-15.0 [facility] Comment on above: Performed By: #### C UBLD, CMP, CBC #### [facility] [address] AST [Catalytic activity/Vol] 96 U/L High 13-39 [facility] Comment on above: Performed By: #### C UBLD, CMP, CBC #### [facility] [address] Bilirubin [Mass/Vol] 0.3 mg/dL Normal 0.3-1.[address] [facility] Comment on above: Performed By: #### C UBLD, CMP, CBC #### [facility] [address] Calcium [Mass/Vol] 9.6 mg/dL Normal 8.6-10.3 [facility] Comment on above: Performed By: #### C UBLD, CMP, CBC #### [facility] [address] Chloride [Moles/Vol] 102 mmol/L Normal 98-[address] [facility] Comment on above: Performed By: #### C UBLD, CMP, CBC #### [facility] [address] [place] [address] [place] CO2 [Moles/Vol] 16.8 mmol/L Low 21.0-31.0 [facility] Comment on above: Performed By: #### C UBLD, CMP, CBC #### [facility] [address] [place] [address] [place] Creatinine [Mass/Vol] 1.43 mg/dL High 0.60-1.20 [facility] Comment on above: Performed By: #### C UBLD, CMP, CBC #### [facility] [address] Creatinine Clr Calc Pharmacy 51.71 [facility] Comment on above: Result Comment: PERF ORMED BY: [place] [address] PATHOLOGIST MICROBIOLOGY QUALITY CONTROL TECHNICIAN IAN ACE M.D. Performed By: #### C UBLD, CMP, CBC #### [address] GFR/1.73 sq M.predicted MDRD (S/P/Bld) [Vol rate/Area] 40.450 mL/min/{1.73_m2} [facility] Comment on above: Performed By: #### C UBPREMA CMP, CBC #### [address] Globulin (S) [Mass/Vol] 3.8 g/dL [facility] Comment on above: Performed By: #### C UBLD, CMP, CBC #### [address] Glucose [Mass/Vol] 143 mg/dL High 70-100 [facility] Comment on above: Result Comment: [place] Glucose Reference Range is dependent on time and content of last meal. Glucose of more than 200 mg/dL in a nonstressed, ambulatory subject supports the diagnosis of Diabetes Mellitus. ADA recommended reference range Performed By: #### C UBLD, CMP, CBC #### [address] Potassium [Moles/Vol] 4.2 mmol/L Normal 3.5-5.1 [facility] Comment on above: Performed By: #### C UBLD, CMP, CBC #### [address] Protein [Mass/Vol] 7.3 g/dL Normal 6.4-8.9 [facility] Comment on above: Performed By: #### C UBLD, CMP, CBC #### [place] [address] [place] Sodium [Moles/Vol] 127 mmol/L Low 136-145 [facility] Comment on above: Performed By: #### C UBLD, CMP, CBC #### [facility] [address] Urea nitrogen [Mass/Vol] 47 mg/dL High 7-25 [facility] Comment on above: Performed By: #### C UBLD, CMP, CBC #### [facility] [address] Albumin [Mass/Vol] 3.6 g/dL Normal 3.5-5.7 [facility] Comment on above: Performed By: #### C UBLD, CMP, CBC #### [facility] [address] Albumin/Globulin [Mass ratio] 0.9 {ratio} Normal [facility] Comment on above: Performed By: #### C UBLD, CMP, CBC #### [facility] [address] ALP [Catalytic activity/Vol] 95 U/L Normal 34-104 [facility] Comment on above: Performed By: #### C UBLD, CMP, CBC #### [facility] [address] ALT [Catalytic activity/Vol] 108 U/L High 7-52 [facility] Comment on above: Performed By: #### C UBLD, CMP, CBC #### [facility] [address] Anion gap [Moles/Vol] 13.8 mmol/L Normal 6.0-15.0 [facility] Comment on above: Performed By: #### C UBLD, CMP, CBC #### [facility] [address] AST [Catalytic activity/Vol] 87 U/L High 13-39 [facility] Comment on above: Performed By: #### C UBLD, CMP, CBC #### [facility] [address] Bilirubin [Mass/Vol] 0.3 mg/dL Normal 0.3-1.[address] [facility] Comment on above: Performed By: #### C UBLD, CMP, CBC #### [address] Calcium [Mass/Vol] 9.5 mg/dL Normal 8.6-10.3 [facility] Comment on above: Performed By: #### C UBLD, CMP, CBC #### [facility] [address] Chloride [Moles/Vol] 102 mmol/L Normal 98-[address] [facility] Comment on above: Performed By: #### C UBLD, CMP, CBC #### [address] CO2 [Moles/Vol] 15.4 mmol/L Low 21.0-31.0 [facility] Comment on above: Performed By: #### C UBLD, CMP, CBC #### [address] Creatinine [Mass/Vol] 1.23 mg/dL High 0.60-1.20 [facility] Comment on above: Performed By: #### C UBLD, CMP, CBC #### [address] Creatinine Clr Calc Pharmacy 60.12 [facility] Comment on above: Result Comment: PERF ORMED BY: [place] [address] PATHOLOGIST MICROBIOLOGY QUALITY CONTROL TECHNICIAN IAN ACE M.D. Performed By: #### C UBLD, CMP, CBC #### [address] GFR/1.73 sq M.predicted MDRD (S/P/Bld) [Vol rate/Area] 48.466 mL/min/{1.73_m2} [facility] Comment on above: Performed By: #### C UBLD, CMP, CBC #### [address] Globulin (S) [Mass/Vol] 3.8 g/dL Normal [facility] Comment on above: Performed By: #### C UBLD, CMP, CBC #### [facility] [address] [place] [address] [place] Glucose [Mass/Vol] 143 mg/dL High 70-100 [facility] Comment on above: Result Comment: [place] Glucose Reference Range is dependent on time and content of last meal. Glucose of more than 200 mg/dL in a nonstressed, ambulatory subject supports the diagnosis of Diabetes Mellitus. ADA recommended reference range Performed By: #### C UBLD, CMP, CBC #### [facility] [address] Potassium [Moles/Vol] 4.2 mmol/L Normal 3.5-5.1 [facility] Comment on above: Performed By: #### C UBLD, CMP, CBC #### [facility] [address] [place] [address] [place] Protein [Mass/Vol] 7.4 g/dL Normal 6.4-8.9 [facility] Comment on above: Performed By: #### C UBLD, CMP, CBC #### [facility] [address] [place] [address] [place] Sodium [Moles/Vol] 127 mmol/L Low 136-145 [facility] Comment on above: Performed By: #### C UBLD, CMP, CBC #### [facility] [address] [place] [id number] [place] Urea nitrogen [Mass/Vol] 46 mg/dL High 7-25 [facility] Comment on above: Performed By: #### C UBLD, CMP, CBC #### [facility] [address] [place] [id number] [place] Creatine Kinaseon 04-11-2023 CK [Catalytic activity/Vol] 122 U/L Normal 30-223 [facility] Comment on above: Performed By: #### L ACTIC, CMP, CBC #### [facility] [address] [place] [id number] [place] Creatine kinase [Enzymatic a ctivity/volume] in Serum or PlasmaOrdered By: Laith Monte on 04-11-2023 CK [Catalytic activity/Vol] 122 U/L 30-223 [facility] ECG 12 lead ECGon 04-11-2023 ECG 12 lead ECG [facility] Main [address] [address] Electrocardiograph Report Signed Patient: [place] Cesar MR#: [id number] : 1955 Acct:[id number] Age/Sex: 67 / F ADM Date: 04/10/23 Loc: Room: [address] [place] [address] Type: ADM IN Attending Dr: Malorie Nathan MD Ordering Provider: Laith Monte DO Date of Service: 04/11/2309/28/848 ECG/ECG 12 lead ECG: met Copies to: Test Reason : Blood Pressure : / mmHG Vent. Rate : 089 BPM Atrial Rate : 089 BPM P-R Int : 144 ms QRS Dur : 086 ms QT Int : 370 ms P-R-T Axes : 071 061 076 degrees QTc Int : 450 ms Normal sinus rhythm Normal ECG No previous ECGs available Confirmed by LONNIE MORENO [facility], LUISA ([id number]) on 04/12/2023 9:24:12 AM Referred By: Electronically Signed By:LUISA HANKINS MD [facility] Transcribed By: MUS Signed By Luisa Hankins MD, [facility] 04/12/23 0924 [facility] Glucose Glucometer (BldC) [M ass/Vol]Ordered By: Malorie Nathan on 04-11-2023 Glucose [Mass/Vol] 149 mg/dL [facility] Comment on above: Random Glucose Refer ence Range is dependent on time and content of last meal. Glucose of more than 200 mg/dL in a nonstressed, ambulatory subject supports the diagnosis of Diabetes Mellitus. Glucose Poct Glucometerson 1 06-11-2022 Glucose [Mass/Vol] 149 mg/dL Normal [facility] Comment on above: Result Comment: [place] om Glucose Reference Range is dependent on time and content of last meal. Glucose of more than 200 mg/dL in a nonstressed, ambulatory subject supports the diagnosis of Diabetes Mellitus. PERFORMED BY: [place] [address] PATHOLOGIST MICROBIOLOGY QUALITY CONTROL TECHNICIAN IAN ACE M.D. Performed By: #### G LULS #### Point of Care testing , Laboratory - Chemistry and C hemistry - challengeOrdered By: Malorie Nathan on 04-11-2023 CO2 [Moles/Vol] 16.3 mmol/L 23.0-27.0 [facility] HCO3 (Bld) [Moles/Vol] 14.7 mmol/L 23.0-29.0 [facility] Lactate [Moles/volume] in Se rum or PlasmaOrdered By: Laith Monte on 04-11-2023 Lactate [Moles/Vol] 1.3 mmol/L 0.5-2.2 [facility] Lactic Acidon 04-11-2023 Lactate [Moles/Vol] 1.3 mmol/L Normal 0.5-2.2 [facility] Comment on above: Result Comment: PERF ORMED BY: [place] [address] PATHOLOGIST MICROBIOLOGY QUALITY CONTROL TECHNICIAN IAN ACE M.D. Performed By: #### C UBLD, CMP, CBC #### [address] Natriuretic peptide B [Mass/ Vol]Ordered By: Laith Monte on 04-11-2023 Natriuretic peptide B (Bld) [Mass/Vol] 181.0 pg/mL 5-100 [facility] No Panel InformationOrdered By: Malorie Nathan on 04-11-2023 Arterial Blood Base Excess -15.4 mmol/L -3.0-3.0 [facility] Arterial Blood Oxygen Content 7.8 mmol/L 6.6-9.7 [facility] Arterial Blood Oxygen Saturation 97.6 % 95.0-100.0 [facility] Arterial Blood Partial Pressure CO2 52.5 mm[Hg] 35.0-45.0 [facility] Arterial Blood Partial Pressure O2 105.6 mm[Hg] 80.0-100.0 [facility] Arterial Blood pH 7.07 7.35-7.45 [facility] Blood Gas Critical Value See comment [facility] Comment on above: Critical Value julio haynes on: 04/11/2023 at 08:56 Blood Gas Liter Flow 6 L/min [facility] Blood Gas Sample Site Right radial F [facility] FiO2 44 % [facility] Troponin I High Sensitivityo n 04-11-2023 Troponin I High Sensitivity 33.9 pg/mL High 0.0-15.0 [facility] Comment on above: Result Comment: PERF ORMED BY: [place] [address] PATHOLOGIST MICROBIOLOGY QUALITY CONTROL TECHNICIAN IAN ACE M.D. Performed By: #### L ACTIC, CMP, CBC #### [address] Troponin I.cardiac [Mass/vol ume] in Serum or Plasma by Detection limit <= 0.01 ng/Ordered By: Laith Monte on 04-11-2023 Troponin I.cardiac DL <= 0.01 ng/mL [Mass/Vol] 33.9 pg/mL 0.0-15.0 [facility] XR chest 1V portableon 04-11 XR chest 1V portable [facility] Main [place] [address] [place] [address] XRay Report Signed Patient: [place] Cesar MR#: [id number] : 1955 Acct:[id number] Age/Sex: 67 / F ADM Date: 04/10/23 Loc: Room: [address] [place] [address] Type: ADM IN Attending Dr: Malroie Nathan MD Copies to: DO Malorie Camacho MD Ordering Provider: Laith Monte DO Date of Service: 04/11/23 XR/XR chest 1V portable: lethargic XR chest 1V portable 04/11/2023 8:49 AM SIGNS AND SYMPTOMS: lethargic PROTOCOL: Frontal radiograph of the chest COMPARISON: 12/01/2016 FINDINGS: The trachea is midline. There is prominence of the douglas bilaterally which may be vascular in nature. There is cardiomegaly. Interstitial prominence is noted bilaterally. The bony thorax is intact. There is a dextro convex curvature of the thoracic spine. XR/XR chest 1V portable IMPRESSION: There is prominence of the douglas bilaterally which may be vascular in nature. Additional findings suggest congestive heart failure. Impression dictated by: Crispin Sullivan M.D.04/11/2023 9:10 AM Dictation Location: [place] [address] Transcribed By: MARIA VICTORIA 04/11/23909 Dictated By: Crispin Sullivan II, MD 04/11/23907 Signed By: 04/11/23909 Normal [facility] Alanine aminotransferase [En zymatic activity/volume] in Serum or PlasmaOrdered By: Sarah Davey on 04-10-2023 ALT [Catalytic activity/Vol] 91 U/L 7-52 [facility] Albumin [Mass/volume] in Ser um or Plasma by Bromocresol green (BCG) dye binding methoOrdered By: Sarah Davey on 04-10-2023 Albumin BCG dye [Mass/Vol] 3.7 g/dL 3.5-5.7 [facility] Alkaline phosphatase [Enzyma tic activity/volume] in Serum or PlasmaOrdered By: Sarah Davey on 04-10-2023 ALP [Catalytic activity/Vol] 92 U/L 34-104 [facility] Aspartate aminotransferase [ Enzymatic activity/volume] in Serum or PlasmaOrdered By: Sarah Davey on 04-10-2023 AST [Catalytic activity/Vol] 74 U/L 13-39 [facility] Automated erythrocytes count in urine sediment (number/area)Ordered By: Sarah Davey on 04-10-2023 RBC Auto (Urine sed) [#/Area] 1-2 [HPF] 0-4 [facility] Automated leukocytes count i n urine sediment (number/area)Ordered By: Sarah Davey on 04-10-2023 WBC Auto (Urine sed) [#/Area] 10-19 [HPF] 0-4 [facility] Basic Metabolic Panelon 11- Anion gap [Moles/Vol] 14.6 mmol/L Normal 6.0-15.0 [facility] Comment on above: Performed By: #### C UBLD, CMP, CBC #### [facility] [address] [place] [address] [place] Calcium [Mass/Vol] 9.5 mg/dL Normal 8.6-10.3 [facility] Comment on above: Performed By: #### C UBLD, CMP, CBC #### [facility] [address] [place] [address] [place] Chloride [Moles/Vol] 102 mmol/L Normal 98-[address] [facility] Comment on above: Performed By: #### C UBLD, CMP, CBC #### [facility] [address] CO2 [Moles/Vol] 14.3 mmol/L Low 21.0-31.0 [facility] Comment on above: Performed By: #### C UBLD, CMP, CBC #### [facility] [address] [place] [address] [place] Creatinine [Mass/Vol] 1.16 mg/dL Normal 0.60-1.20 [facility] Comment on above: Performed By: #### C UBLD, CMP, CBC #### [facility] [address] [place] [address] [place] Creatinine Clr Calc Pharmacy 63.71 [facility] Comment on above: Result Comment: PERF ORMED BY: [place] [address] PATHOLOGIST MICROBIOLOGY QUALITY CONTROL TECHNICIAN IAN ACE M.D. Performed By: #### C UBLD, CMP, CBC #### [facility] [address] [place] [address] [place] GFR/1.73 sq M.predicted MDRD (S/P/Bld) [Vol rate/Area] 51.997 mL/min/{1.73_m2} [facility] Comment on above: Performed By: #### C UBLD, CMP, CBC #### [facility] [address] [place] [address] [place] Glucose [Mass/Vol] 142 mg/dL High 70-100 [facility] Comment on above: Result Comment: [place] Glucose Reference Range is dependent on time and content of last meal. Glucose of more than 200 mg/dL in a nonstressed, ambulatory subject supports the diagnosis of Diabetes Mellitus. ADA recommended reference range Performed By: #### C UBLD, CMP, CBC #### [facility] [address] Potassium [Moles/Vol] 3.9 mmol/L Normal 3.5-5.1 [facility] Comment on above: Performed By: #### C UBLD, CMP, CBC #### [facility] [address] Sodium [Moles/Vol] 127 mmol/L Low 136-145 [facility] Comment on above: Performed By: #### C UBLD, CMP, CBC #### [facility] [address] [place] [address] [place] Urea nitrogen [Mass/Vol] 45 mg/dL High 7-25 [facility] Comment on above: Performed By: #### C UBLD, CMP, CBC #### [facility] [address] [place] [address] [place] Basophils Auto (Bld) [#/Vol] Ordered By: Sarah Davey on 04-10-2023 Basophils (Bld) [#/Vol] 0.1 10*3/uL 0.0-0.2 [facility] Basophils/100 WBC Auto (Bld) Ordered By: Sarah Schwarzimore on 04-10-2023 Basophils/100 WBC (Bld) 0.5 % . [facility] Bilirubin Test strip Ql (U)O rdered By: Sarah Davey on 04-10-2023 Bilirubin Ql (U) Negative Negative [facility] Bilirubin.total [Mass/volume ] in Serum or PlasmaOrdered By: Sarah Schwarzimmundo on 04-10-2023 Bilirubin [Mass/Vol] 0.4 mg/dL 0.3-1.[address] [facility] Blood Cultureon 04-10-2023 Bacteria identified Cx Nom (Bld) NO GROWTH 5 DAYS PERFORMED BY: [facility] [address] [place] [phone] PATHOLOGIST MICROBIOLOGY QUALITY CONTROL TECHNICIAN IAN ACE M.D. Normal [facility] Comment on above: Performed By: #### G LULS #### Point of Care testing , C reactive protein [Mass/vol ume] in Serum or PlasmaOrdered By: Sarah Davey on 04-10-2023 CRP [Mass/Vol] 16.1 mg/dL 0.0-0.5 [facility] C-Reactive Proteinon 023 C-Reactive Protein 16.1 mg/dL High 0.0-0.5 [facility] Comment on above: Result Comment: PERF ORMED BY: [facility] [address] [place] [address] PATHOLOGIST MICROBIOLOGY QUALITY CONTROL TECHNICIAN IAN ACE M.D. Performed By: #### G LULS #### Point of Care testing , Calcium [Mass/volume] in Ser um or PlasmaOrdered By: Sarah Bullimore on 04-10-2023 Calcium [Mass/Vol] 10.0 mg/dL 8.6-10.3 [facility] Carbon dioxide, total [Moles /volume] in Serum or PlasmaOrdered By: Sarah Schwarzimore on 04-10-2023 CO2 [Moles/Vol] 15.4 mmol/L 21.0-31.0 [facility] Chloride [Moles/volume] in S marivel or PlasmaOrdered By: Sarah Bullimore on 04-10-2023 Chloride [Moles/Vol] 102 mmol/L 98-[address] [facility] Color Auto (U)Ordered By: Tiffany Davey on 04-10-2023 Color (U) Yellow Yellow [facility] Complete Blood Count Auto Di ffon 04-10-2023 Basophils (Bld) [#/Vol] 0.1 10*3/uL Normal 0.0-0.2 [facility] Comment on above: Performed By: #### G LULS #### Point of Care testing , Basophils/100 WBC (Bld) 0.5 % Normal . [facility] Comment on above: Performed By: #### G LULS #### Point of Care testing , Eosinophils (Bld) [#/Vol] 0.1 10*3/uL Normal 0.0-0.45 [facility] Comment on above: Performed By: #### Jodi AHMADI #### Point of Care testing , Eosinophils/100 WBC (Bld) 1.0 % Normal . [facility] Comment on above: Performed By: #### Jodi AHMADI #### Point of Care testing , Erythrocyte distribution width (RBC) [Ratio] 16.8 % High 11.9-15.3 [facility] Comment on above: Performed By: #### Jodi AHMADI #### Point of Care testing , Hematocrit (Bld) [Volume fraction] 39.4 % Normal 34.0-46.4 [facility] Comment on above: Performed By: #### Jodi AHMADI #### Point of Care testing , Hemoglobin (Bld) [Mass/Vol] 12.7 g/dL Normal 11.8-15.4 [facility] Comment on above: Performed By: #### Jodi AHMADI #### Point of Care testing , Lymphocytes (Bld) [#/Vol] 0.4 10*3/uL Low 1.00-4.8 [facility] Comment on above: Performed By: #### Jodi AHMADI #### Point of Care testing , Lymphocytes/100 WBC (Bld) 3.2 % Normal . [facility] Comment on above: Performed By: #### Jodi AHMADI #### Point of Care testing , MCH (RBC) [Entitic mass] 26.3 pg Normal 24.7-34.3 [facility] Comment on above: Performed By: #### Jodi AHMADI #### Point of Care testing , MCV (RBC) [Entitic vol] 81.8 fL Normal 80-100 [facility] Comment on above: Performed By: #### Jodi AHMADI #### Point of Care testing , Mean Corpuscular HGB Conc 32.1 g/dL Normal 32.0-35.0 [facility] Comment on above: Performed By: #### Jodi AHMADI #### Point of Care testing , Monocytes (Bld) [#/Vol] 0.6 10*3/uL Normal 0.0-0.8 [facility] Comment on above: Performed By: #### Jodi AHMADI #### Point of Care testing , Monocytes/100 WBC (Bld) 17.56 % Normal 0.00-20.00 [facility] Comment on above: Performed By: #### Jodi CARDLS #### Point of Care testing , Monocytes/100 WBC (Bld) 5.0 % Normal . [facility] Comment on above: Performed By: #### Jodi CARDLS #### Point of Care testing , Neutrophils (Bld) [#/Vol] 11.7 10*3/uL High 1.8-7.7 [facility] Comment on above: Performed By: #### Jodi AHMADI #### Point of Care testing , Neutrophils/100 WBC (Bld) 90.3 % Normal . [facility] Comment on above: Performed By: #### Jodi AHMADI #### Point of Care testing , NRBC% 0.1 /100{WBC} Normal 0-0.5 [facility] Comment on above: Performed By: #### Jodi AHMADI #### Point of Care testing , Platelet mean volume (Bld) [Entitic vol] 7.5 fL Normal 6.3-10.7 [facility] Comment on above: Performed By: #### Jodi AHMADI #### Point of Care testing , Platelets (Bld) [#/Vol] 474 10*3/uL High 150-450 [facility] Comment on above: Performed By: #### Jodi AHMADI #### Point of Care testing , RBC (Bld) [#/Vol] 4.82 10*6/uL Normal 3.60-5.00 [facility] Comment on above: Performed By: #### Jodi CARDLS #### Point of Care testing , WBC (Bld) [#/Vol] 13.0 10*3/uL High 3.8-11.6 [facility] Comment on above: Performed By: #### Jodi AHMADI #### Point of Care testing , Comprehensive Metabolic Pane jeremy 04-10-2023 Albumin [Mass/Vol] 3.7 g/dL Normal 3.5-5.7 [facility] Comment on above: Performed By: #### Jodi AHMADI #### Point of Care testing , Albumin/Globulin [Mass ratio] 0.8 {ratio} Normal [facility] Comment on above: Performed By: #### G KYAWLS #### Point of Care testing , ALP [Catalytic activity/Vol] 92 U/L Normal 34-104 [facility] Comment on above: Performed By: #### G KYAWLS #### Point of Care testing , ALT [Catalytic activity/Vol] 91 U/L High 7-52 [facility] Comment on above: Performed By: #### Jodi AHMADI #### Point of Care testing , Anion gap [Moles/Vol] 15.3 mmol/L High 6.0-15.0 [facility] Comment on above: Performed By: #### Jodi AHMADI #### Point of Care testing , AST [Catalytic activity/Vol] 74 U/L High 13-39 [facility] Comment on above: Performed By: #### Jodi AHMADI #### Point of Care testing , Bilirubin [Mass/Vol] 0.4 mg/dL Normal 0.3-1.[address] [facility] Comment on above: Performed By: #### Jodi AHMADI #### Point of Care testing , Calcium [Mass/Vol] 10.0 mg/dL Normal 8.6-10.3 [facility] Comment on above: Performed By: #### Jodi AHMADI #### Point of Care testing , Chloride [Moles/Vol] 102 mmol/L Normal 98-[address] [facility] Comment on above: Performed By: #### Jodi AHMADI #### Point of Care testing , CO2 [Moles/Vol] 15.4 mmol/L Low 21.0-31.0 [facility] Comment on above: Performed By: #### Jodi AHMADI #### Point of Care testing , Creatinine [Mass/Vol] 1.21 mg/dL High 0.60-1.20 [facility] Comment on above: Performed By: #### G LULS #### Point of Care testing , Creatinine Clr Calc Pharmacy 60.88 [facility] Comment on above: Performed By: #### G LULS #### Point of Care testing , GFR/1.73 sq M.predicted MDRD (S/P/Bld) [Vol rate/Area] 49.429 mL/min/{1.73_m2} [facility] Comment on above: Performed By: #### G KYAWLS #### Point of Care testing , Globulin (S) [Mass/Vol] 4.5 g/dL [facility] Comment on above: Performed By: #### G KYAWLS #### Point of Care testing , Glucose [Mass/Vol] 109 mg/dL High 70-100 [facility] Comment on above: Result Comment: [facility] Glucose Reference Range is dependent on time and content of last meal. Glucose of more than 200 mg/dL in a nonstressed, ambulatory subject supports the diagnosis of Diabetes Mellitus. ADA recommended reference range Performed By: #### G LULS #### Point of Care testing , Potassium [Moles/Vol] 3.7 mmol/L Normal 3.5-5.1 [facility] Comment on above: Performed By: #### G KYAWLS #### Point of Care testing , Protein [Mass/Vol] 8.2 g/dL Normal 6.4-8.9 [facility] Comment on above: Performed By: #### G KYAWLS #### Point of Care testing , Sodium [Moles/Vol] 129 mmol/L Low 136-145 [facility] Comment on above: Performed By: #### G KYAWLS #### Point of Care testing , Urea nitrogen [Mass/Vol] 43 mg/dL High 7-25 [facility] Comment on above: Performed By: #### G LULS #### Point of Care testing , Creatinine [Mass/volume] in Serum or PlasmaOrdered By: Sarah Davey on 04-10-2023 Creatinine [Mass/Vol] 1.21 mg/dL 0.60-1.20 [facility] Creatinine [Mass/volume] in UrineOrdered By: Neeraj Farrell on 04-10-2023 Creatinine (U) [Mass/Vol] 131.0 mg/dL 11.0-20.0 [facility] Creatinine, Urine (Random)on 04-10-2023 Creatinine, Urine (Random) 131.0 mg/dL High 11.0-20.0 [facility] Comment on above: Result Comment: PERF ORMED BY: [place] [address] PATHOLOGIST MICROBIOLOGY QUALITY CONTROL TECHNICIAN IAN ACE M.D. Performed By: #### C UBLD, CMP, CBC #### [facility] [address] [place] [address] [place] Dipstick and Microscopicon 1 06-10-2022 Appearance (U) Clear Normal Clear [facility] Comment on above: Order Comment: Name Collection Type:: Clean-Voided Midstream Performed By: #### C UBLD, CMP, CBC #### [place] [address] [place] Bacteria,Urine None Seen Normal None Seen [facility] Comment on above: Order Comment: Name Collection Type:: Clean-Voided Midstream Performed By: #### C UBLD, CMP, CBC #### [place] [address] [place] Bilirubin,Urine Negative Normal Negative [facility] Comment on above: Order Comment: Name Collection Type:: Clean-Voided Midstream Performed By: #### C UBLD, CMP, CBC #### [facility] [address] [place] [address] [place] Color (U) Yellow Normal Yellow [facility] Comment on above: Order Comment: Name Collection Type:: Clean-Voided Midstream Performed By: #### C UBLD, CMP, CBC #### [facility] [address] [place] [address] [place] Glucose Ql (U) Normal Normal Normal [facility] Comment on above: Order Comment: Name Collection Type:: Clean-Voided Midstream Performed By: #### C UBLD, CMP, CBC #### [facility] [address] [place] [address] [place] Hyaline Casts,Urine 0-8 Normal 0-8 [facility] Comment on above: Order Comment: Name Collection Type:: Clean-Voided Midstream Performed By: #### C UBLD, CMP, CBC #### [facility] [address] [place] [address] Ketones Ql (U) Trace High Negative [facility] Comment on above: Order Comment: Name Collection Type:: Clean-Voided Midstream Performed By: #### C UBLD, CMP, CBC #### [address] Leukocyte esterase Test strip Ql (U) 1+ High Negative [facility] Comment on above: Order Comment: Name Collection Type:: Clean-Voided Midstream Performed By: #### C UBLD, CMP, CBC #### [address] Nitrite,Urine Negative Normal Negative [facility] Comment on above: Order Comment: Name Collection Type:: Clean-Voided Midstream Performed By: #### C UBLD, CMP, CBC #### [place] [address] [place] Occult Blood,Urine Negative Normal Negative [facility] Comment on above: Order Comment: Name Collection Type:: Clean-Voided Midstream Result Comment: PERF ORMED BY: [place] [address] PATHOLOGIST MICROBIOLOGY QUALITY CONTROL TECHNICIAN IAN ACE M.D. Performed By: #### C UBLD, CMP, CBC #### [place] [address] [place] pH (U) 6.0 [pH] Normal 5.0-9.0 [facility] Comment on above: Order Comment: Name Collection Type:: Clean-Voided Midstream Performed By: #### C UBLD, CMP, CBC #### [place] [address] [place] Protein (U) [Mass/Vol] 100 mg/dL High Negative [facility] Comment on above: Order Comment: Name Collection Type:: Clean-Voided Midstream Performed By: #### C UBLD, CMP, CBC #### [address] RBC,Urine 1-2 Normal 0-4 [facility] Comment on above: Order Comment: Name Collection Type:: Clean-Voided Midstream Performed By: #### C UBLD, CMP, CBC #### [address] Specificy [place],Urine 1.034 High 1.001-1.03 0 [facility] Comment on above: Order Comment: Name Collection Type:: Clean-Voided Midstream Performed By: #### C UBLD, CMP, CBC #### [address] Squamous Epithelial Cell,Urine 3-4 High 0-2 [facility] Comment on above: Order Comment: Name Collection Type:: Clean-Voided Midstream Performed By: #### C UBLD, CMP, CBC #### [address] Urobilinogen,Urine Normal Normal Normal [facility] Comment on above: Order Comment: Name Collection Type:: Clean-Voided Midstream Performed By: #### C UBLD, CMP, CBC #### [address] WBC,Urine 10-19 High 0-4 [facility] Comment on above: Order Comment: Name Collection Type:: Clean-Voided Midstream Performed By: #### C UBLD, CMP, CBC #### [address] Yeast,Urine None Seen Normal None Seen [facility] Comment on above: Order Comment: Name Collection Type:: Clean-Voided Midstream Result Comment: PERF ORMED BY: [place] [address] PATHOLOGIST MICROBIOLOGY QUALITY CONTROL TECHNICIAN IAN ACE M.D. Performed By: #### C UBLD, CMP, CBC #### [address] Eosinophils Auto (Bld) [#/Vo l]Ordered By: Sarah Hammerore on 04-10-2023 Eosinophils (Bld) [#/Vol] 0.1 10*3/uL 0.0-0.45 [facility] Eosinophils/100 WBC Auto (Bl d)Ordered By: Sarah Hammerore on 04-10-2023 Eosinophils/100 WBC (Bld) 1.0 % . [facility] Erythrocyte Sedimentation Ra emery 04-10-2023 ESR (Bld) [Velocity] mm/h High 0-[address] [facility] Comment on above: Result Comment: PERF ORMED BY: [facility] [address] [place] [address] PATHOLOGIST MICROBIOLOGY QUALITY CONTROL TECHNICIAN IAN ACE M.D. Performed By: #### G LULS #### Point of Care testing , Erythrocyte distribution wid th Auto (RBC) [Ratio]Ordered By: Sarah Davey on 04-10-2023 Erythrocyte distribution width (RBC) [Ratio] 16.8 % 11.9-15.3 [facility] Erythrocyte sedimentation ra te by Photometric methodOrdered By: Sarahros Davey on 04-10-2023 ESR Photometric method (Bld) [Velocity] > 130 mm/hr 0- [facility] Globulin Calc (S) [Mass/Vol] Ordered By: Sarah Davey on 04-10-2023 Globulin (S) [Mass/Vol] 4.5 g/dL [facility] Glucose [Mass/volume] in Ser um or PlasmaOrdered By: Sarah Davey on 04-10-2023 Glucose [Mass/Vol] 109 mg/dL 70-100 [facility] Comment on above: ADA recommended refe rence rangeRandom Glucose Reference Range is dependent on time and content of last meal. Glucose of more than 200 mg/dL in a nonstressed, ambulatory subject supports the diagnosis of Diabetes Mellitus. Hematocrit Auto (Bld) [Volum e fraction]Ordered By: Sarah Davey on 04-10-2023 Hematocrit (Bld) [Volume fraction] 39.4 % 34.0-46.4 [facility] Hemoglobin [Mass/volume] in BloodOrdered By: Sarah Davey on 04-10-2023 Hemoglobin (Bld) [Mass/Vol] 12.7 g/dL 11.8-15.4 [facility] Ketones Auto test strip (U) [Mass/Vol]Ordered By: Sarah Davey on 04-10-2023 Ketones (U) [Mass/Vol] Trace Negative [facility] - UrinalysisOrder ed By: Sarah Davey on 04-10-2023 Hyaline casts LM Ql (Urine sed) 0-8 [LPF] 0-8 [facility] Lactate [Moles/volume] in Se rum or PlasmaOrdered By: Sarah Davey on 04-10-2023 Lactate [Moles/Vol] 1.3 mmol/L Normal 0.5-2.2 [facility] Comment on above: Result Comment: PERF ORMED BY: [place] [address] PATHOLOGIST MICROBIOLOGY QUALITY CONTROL TECHNICIAN IAN ACE M.D. Performed By: #### C UBLD, CMP, CBC #### [address] Leukocytes [#/volume] correc julia for nucleated erythrocytes in Blood by Automated counOrdered By: Sarah Davey on 04-10-2023 WBC corrected for nucl RBC Auto (Bld) [#/Vol] 13.0 10*3/uL 3.8-11.6 [facility] Lymphocytes Auto (Bld) [#/Vo l]Ordered By: Sarah Davey on 04-10-2023 Lymphocytes (Bld) [#/Vol] 0.4 10*3/uL 1.00-4.8 [facility] Lymphocytes/100 WBC Auto (Bl d)Ordered By: Sarahros Davey on 04-10-2023 Lymphocytes/100 WBC (Bld) 3.2 % . [facility] MCH Auto (RBC) [Entitic mass ]Ordered By: Sarah Davey on 04-10-2023 MCH (RBC) [Entitic mass] 26.3 pg 24.7-34.3 [facility] MCHC Auto (RBC) [Mass/Vol]Or dered By: Sarah Schwarzimore on 04-10-2023 MCHC (RBC) [Mass/Vol] 32.1 g/dL 32.0-35.0 [facility] MCV Auto (RBC) [Entitic vol] Ordered By: Sarah Schwarzimore on 04-10-2023 MCV (RBC) [Entitic vol] 81.8 fL 80-100 [facility] Monocyte distribution width [Entitic volume] in Blood by AutomatedOrdered By: Sarah Schwarzimore on 04-10-2023 Monocyte distribution width Auto (Bld) [Entitic vol] 17.56 % 0.00-20.00 [facility] Monocytes Auto (Bld) [#/Vol] Ordered By: Sarah Schwarzimore on 04-10-2023 Monocytes (Bld) [#/Vol] 0.6 10*3/uL 0.0-0.8 [facility] Monocytes/100 WBC Auto (Bld) Ordered By: Sarah Davey on 04-10-2023 Monocytes/100 WBC (Bld) 5.0 % . [facility] Neutrophils Auto (Bld) [#/Vo l]Ordered By: Sarah Schwarzimore on 04-10-2023 Neutrophils (Bld) [#/Vol] 11.7 10*3/uL 1.8-7.7 [facility] Neutrophils/100 WBC Auto (Bl d)Ordered By: Sarah Davey on 04-10-2023 Neutrophils/100 WBC (Bld) 90.3 % . [facility] Nitrite Test strip Ql (U)Ord ered By: Sarah Davey on 04-10-2023 Nitrite Ql (U) Negative Negative [facility] No Panel InformationOrdered By: Sarah Davey on 04-10-2023 Estimated GFR (CKD-EPI) 49.429 mL/Min [facility] Creatinine Clearance (Chem 60.88 [facility] Nucleated erythrocytes [Pres ence] in Blood by Automated countOrdered By: Sarah Davey on 04-10-2023 Nucleated RBC Auto Ql (Bld) 0.1 /100{WBC} 0-0.5 [facility] Platelet mean volume Auto (B ld) [Entitic vol]Ordered By: Sarah Schwarzimore on 04-10-2023 Platelet mean volume (Bld) [Entitic vol] 7.5 fL 6.3-10.7 [facility] Platelets Auto (Bld) [#/Vol] Ordered By: Sarah Bullimore on 04-10-2023 Platelets (Bld) [#/Vol] 474 10*3/uL 150-450 [facility] Potassium [Moles/volume] in Serum or PlasmaOrdered By: Sarah Bullimore on 04-10-2023 Potassium [Moles/Vol] 3.7 mmol/L 3.5-5.1 [facility] Protein Auto test strip (U) [Mass/Vol]Ordered By: Sarah Bullimore on 04-10-2023 Protein (U) [Mass/Vol] 100 mg/dL Negative [facility] Protein [Mass/volume] in Ser um or PlasmaOrdered By: Sarah Bullimore on 04-10-2023 Protein [Mass/Vol] 8.2 g/dL 6.4-8.9 [facility] RBC Auto (Bld) [#/Vol]Ordere d By: Sarah Bullimore on 04-10-2023 RBC (Bld) [#/Vol] 4.82 10*6/uL 3.60-5.00 [facility] Serum or plasma albumin/glob ulin mass ratioOrdered By: Sarah Bullimore on 04-10-2023 Albumin/Globulin [Mass ratio] 0.8 {ratio} [facility] Serum or plasma anion gap de terminationOrdered By: Sarah Bullimore on 04-10-2023 Anion gap [Moles/Vol] 15.3 mmol/L 6.0-15.0 [facility] Sodium [Moles/volume] in Ser um or PlasmaOrdered By: Sarah Bullimore on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 ratio] 1.4 {ratio} Normal [facility] Comment on above: Performed By: #### L ACTIC, CMP, CBC #### [facility] [address] ALP [Catalytic activity/Vol] 81 U/L Normal 34-104 [facility] Comment on above: Performed By: #### L ACTIC, CMP, CBC #### [facility] [address] ALT [Catalytic activity/Vol] 21 U/L Normal 7-52 [facility] Comment on above: Performed By: #### L ACTIC, CMP, CBC #### [address] Anion gap [Moles/Vol] 12.1 mmol/L Normal 6.0-15.0 [facility] Comment on above: Performed By: #### L ACTIC, CMP, CBC #### [address] AST [Catalytic activity/Vol] 22 U/L Normal 13-39 [facility] Comment on above: Performed By: #### L ACTIC, CMP, CBC #### [facility] [address] [place] [address] [place] Bilirubin [Mass/Vol] 0.3 mg/dL Normal 0.3-1.[address] [facility] Comment on above: Performed By: #### L ACTIC, CMP, CBC #### [facility] [address] Calcium [Mass/Vol] 8.9 mg/dL Normal 8.6-10.3 [facility] Comment on above: Performed By: #### L ACTIC, CMP, CBC #### [facility] [address] [place] [address] [place] Chloride [Moles/Vol] 106 mmol/L Normal 98-[address] [facility] Comment on above: Performed By: #### L ACTIC, CMP, CBC #### [facility] [address] CO2 [Moles/Vol] 27.1 mmol/L Normal 21.0-31.0 [facility] Comment on above: Performed By: #### L ACTIC, CMP, CBC #### [facility] [address] Creatinine [Mass/Vol] 0.94 mg/dL Normal 0.60-1.20 [facility] Comment on above: Performed By: #### L ACTIC, CMP, CBC #### [address] Creatinine Clr Calc Pharmacy 86.28 [facility] Comment on above: Result Comment: PERF ORMED BY: [place] [address] PATHOLOGIST MICROBIOLOGY QUALITY CONTROL TECHNICIAN IAN ACE M.D. Performed By: #### L ACTIC, CMP, CBC #### [address] GFR/1.73 sq M.predicted MDRD (S/P/Bld) [Vol rate/Area] mL/min/{1.73_m2} [facility] Comment on above: Performed By: #### L ACTIC, CMP, CBC #### [facility] [address] [place] [address] Globulin (S) [Mass/Vol] 2.9 g/dL [facility] Comment on above: Performed By: #### L ACTIC, CMP, CBC #### [facility] [address] [place] [address] Glucose [Mass/Vol] 98 mg/dL Normal 70-100 [facility] Comment on above: Result Comment: [place] Glucose Reference Range is dependent on time and content of last meal. Glucose of more than 200 mg/dL in a nonstressed, ambulatory subject supports the diagnosis of Diabetes Mellitus. ADA recommended reference range Performed By: #### L ACTIC, CMP, CBC #### [facility] [address] Potassium [Moles/Vol] 4.2 mmol/L Normal 3.5-5.1 [facility] Comment on above: Performed By: #### L ACTIC, CMP, CBC #### [facility] [address] Protein [Mass/Vol] 6.9 g/dL Normal 6.4-8.9 [facility] Comment on above: Performed By: #### L ACTIC, CMP, CBC #### [address] Sodium [Moles/Vol] 141 mmol/L Normal 136-145 [facility] Comment on above: Performed By: #### L ACTIC, CMP, CBC #### [address] Urea nitrogen [Mass/Vol] 24 mg/dL Normal 7-25 [facility] Comment on above: Performed By: #### L ACTIC, CMP, CBC #### [address] Lactic Acidon 12-14-2022 Lactate [Moles/Vol] 0.9 mmol/L Normal 0.5-2.2 [facility] Comment on above: Result Comment: PERF ORMED BY: [place] [address] PATHOLOGIST MICROBIOLOGY QUALITY CONTROL TECHNICIAN IAN ACE M.D. Performed By: #### L ACTIC, CMP, CBC #### [address] Superficial Wound Cultureon 12-14-2022 Superficial Wound Culture Claudia haemulonii results called at 1420 on 12/18/22. ORGANISM: Pseudomonas aeruginosa (O:PSEAER) Carbapenemase [Type] in Isolate by Carba BUFFING WHEEL OPERATOR Organism negative for carbapenemase (CRE) Quantity of Growth Heavy Growth ORGANISM: Enterococcus faecalis (O:ENTFAC) Quantity of Growth Moderate Growth ORGANISM: Pseudomonas aeruginosa (O:PSEAER) Quantity of Growth Heavy Growth ORGANISM: Methicillin Resis Staph Aureus (O:MRSA) Quantity of Growth Light Growth ORGANISM: Claudia haemulonii (O:CANHAE) Quantity of Growth Moderate Growth Aerobic PASTORA Charge (NMIC56) SUSCEPTIBILITY ORGANISM: O:PSEAER ANTIBIOTIC INTERPRETATION PASTORA Amikacin S <16 Aztreonam IB <4 Cefepime S <2 Ceftazidime IB <1 Ceftazidime/Avibactam S <4 Ceftolozane/Tazobactam S <2 Ciprofloxacin S <0.25 Gentamicin S <2 Levofloxacin S <0.5 Meropenem I 4 Piperacillin/Tazobactam IB <8 Tobramycin S <2 Aerobic PASTORA Charge (PCMIC38) SUSCEPTIBILITY ORGANISM: O:ENTFAC ANTIBIOTIC INTERPRETATION PASTORA Ampicillin S <2 Daptomycin S <0.5 Linezolid S 2 Penicillin S 2 Vancomycin S 1 Aerobic PASTORA Charge (NMIC56) SUSCEPTIBILITY ORGANISM: O:PSEAER ANTIBIOTIC INTERPRETATION PASTORA Amikacin S <16 Aztreonam IB <4 Cefepime S <2 Ceftazidime IB <1 Ceftazidime/Avibactam S <4 Ceftolozane/Tazobactam S <2 Ciprofloxacin S <0.25 Gentamicin S <2 Levofloxacin S <0.5 Meropenem S <1 Piperacillin/Tazobactam IB <8 Tobramycin S <2 Aerobic PASTORA Charge (PCMIC38) SUSCEPTIBILITY ORGANISM: O:MRSA ANTIBIOTIC INTERPRETATION PASTORA Azithromycin I 4 Ceftaroline S <0.5 Ciprofloxacin R >2 Clindamycin S <0.25 Daptomycin S <0.5 Linezolid S 2 Oxacillin R >2 Penicillin R >2 Tetracycline S <4 Trimethoprim/Sulfamethoxa zole S <0.5 Vancomycin S 0.5 S = SUSCEPTIBLE I = INTERMEDIATE R = RESISTANT BLANK = DATA NOT AVAILABLE, OR DRUG NOT ADVISABLE OR TESTED R* = RESISTANCE DUE TO EXTENDED SPECTRUM BETA-LACTAMASES ESBL = EXTENDED SPECTRUM BETA-LACTAMASE TFG = THYMIDINE-DEPENDENT STRAIN RACHNA = BETA-LACTAMASE POSITIVE IB = INDUCIBLE BETA-LACTAMASE. APPEARS IN PLACE OF 'S' WITH SPECIES KNOWN TO POSSESS INDUCIBLE BETA-LACTAMASES. POTENTIALLY THEY MAY BECOME RESISTANT TO ALL B-LACTAM DRUGS. PERFORMED BY: [place] [address] PATHOLOGIST MICROBIOLOGY QUALITY CONTROL TECHNICIAN IAN ACE M.D. Normal [facility] Comment on above: Performed By: #### C UBLD, CMP, CBC #### [address] Alanine aminotransferase [En zymatic activity/volume] in Serum or PlasmaOrdered By: Chon Valdez on 12-13-2022 ALT [Catalytic activity/Vol] 21 U/L 7-52 [facility] Albumin [Mass/volume] in Ser um or Plasma by Bromocresol green (BCG) dye binding methoOrdered By: Chon Valdez on 12-13-2022 Albumin BCG dye [Mass/Vol] 4.0 g/dL 3.5-5.7 [facility] Alkaline phosphatase [Enzyma tic activity/volume] in Serum or PlasmaOrdered By: Chon Valdez on 12-13-2022 ALP [Catalytic activity/Vol] 81 U/L 34-104 [facility] Aspartate aminotransferase [ Enzymatic activity/volume] in Serum or PlasmaOrdered By: Chon Valdez on 12-13-2022 AST [Catalytic activity/Vol] 22 U/L 13-39 [facility] Bacteria identified Aer cx N om (Unsp spec)Ordered By: Chon Valdez on 12-13-2022 Superficial Wound Culture Pseudomonas aeruginosa [facility] Superficial Wound Culture Enterococcus faecalis [facility] Superficial Wound Culture Pseudomonas aeruginosa#2 [facility] Superficial Wound Culture Methicillin Resis Staph Aureus [facility] Superficial Wound Culture Claudia haemulonii [facility] Basophils Auto (Bld) [#/Vol] Ordered By: Chon Valdez on 12-13-2022 Basophils (Bld) [#/Vol] 0.1 10*3/uL 0.0-0.2 [facility] Basophils/100 WBC Auto (Bld) Ordered By: Chon Valdez on 12-13-2022 Basophils/100 WBC (Bld) 1.0 % . [facility] Bilirubin.total [Mass/volume ] in Serum or PlasmaOrdered By: Chon Valdez on 12-13-2022 Bilirubin [Mass/Vol] 0.3 mg/dL 0.3-1.[address] [facility] Calcium [Mass/volume] in Ser um or PlasmaOrdered By: Chon Valdez on 12-13-2022 Calcium [Mass/Vol] 8.9 mg/dL 8.6-10.3 [facility] Carbon dioxide, total [Moles /volume] in Serum or PlasmaOrdered By: Chon Valdez on 12-13-2022 CO2 [Moles/Vol] 27.1 mmol/L 21.0-31.0 [facility] Chloride [Moles/volume] in S marivel or PlasmaOrdered By: Chon Valdez on 12-13-2022 Chloride [Moles/Vol] 106 mmol/L 98-[address] [facility] Creatinine [Mass/volume] in Serum or PlasmaOrdered By: Chon Valdez on 12-13-2022 Creatinine [Mass/Vol] 0.94 mg/dL 0.60-1.20 [facility] Eosinophils Auto (Bld) [#/Vo l]Ordered By: Chon Valdez on 12-13-2022 Eosinophils (Bld) [#/Vol] 0.4 10*3/uL 0.0-0.45 [facility] Eosinophils/100 WBC Auto (Bl d)Ordered By: Chon Valdez on 12-13-2022 Eosinophils/100 WBC (Bld) 4.9 % . [facility] Erythrocyte distribution wid th Auto (RBC) [Ratio]Ordered By: Chon Valdez on 12-13-2022 Erythrocyte distribution width (RBC) [Ratio] 17.6 % 11.9-15.3 [facility] Globulin Calc (S) [Mass/Vol] Ordered By: Chon Valdez on 12-13-2022 Globulin (S) [Mass/Vol] 2.9 g/dL [facility] Glucose [Mass/volume] in Ser um or PlasmaOrdered By: Chon Valdez on 12-13-2022 Glucose [Mass/Vol] 98 mg/dL 70-100 [facility] Comment on above: ADA recommended refe rence rangeRandom Glucose Reference Range is dependent on time and content of last meal. Glucose of more than 200 mg/dL in a nonstressed, ambulatory subject supports the diagnosis of Diabetes Mellitus. Hematocrit Auto (Bld) [Volum e fraction]Ordered By: Chon Valdez on 12-13-2022 Hematocrit (Bld) [Volume fraction] 36.1 % 34.0-46.4 [facility] Hemoglobin [Mass/volume] in BloodOrdered By: Chon Valdez on 12-13-2022 Hemoglobin (Bld) [Mass/Vol] 11.6 g/dL 11.8-15.4 [facility] Lactate [Moles/volume] in Se rum or PlasmaOrdered By: Chon Valdez on 12-13-2022 Lactate [Moles/Vol] 0.9 mmol/L 0.5-2.2 [facility] Leukocytes [#/volume] correc julia for nucleated erythrocytes in Blood by Automated counOrdered By: Chon Valdez on 12-13-2022 WBC corrected for nucl RBC Auto (Bld) [#/Vol] 7.4 10*3/uL 3.8-11.6 [facility] Lymphocytes Auto (Bld) [#/Vo l]Ordered By: Chon Valdez on 12-13-2022 Lymphocytes (Bld) [#/Vol] 1.3 10*3/uL 1.00-4.8 [facility] Lymphocytes/100 WBC Auto (Bl d)Ordered By: Chon Valdez on 12-13-2022 Lymphocytes/100 WBC (Bld) 17.2 % . [facility] MCH Auto (RBC) [Entitic mass ]Ordered By: Chon Valdez on 12-13-2022 MCH (RBC) [Entitic mass] 25.9 pg 24.7-34.3 [facility] MCHC Auto (RBC) [Mass/Vol]Or dered By: Chon Valdez on 12-13-2022 MCHC (RBC) [Mass/Vol] 32.2 g/dL 32.0-35.0 [facility] MCV Auto (RBC) [Entitic vol] Ordered By: Chon Vadlez on 12-13-2022 MCV (RBC) [Entitic vol] 80.4 fL 80-100 [facility] Monocyte distribution width [Entitic volume] in Blood by AutomatedOrdered By: Chon Valdez on 12-13-2022 Monocyte distribution width Auto (Bld) [Entitic vol] 19.39 % 0.00-20.00 [facility] Monocytes Auto (Bld) [#/Vol] Ordered By: Chon Valdez on 12-13-2022 Monocytes (Bld) [#/Vol] 0.7 10*3/uL 0.0-0.8 [facility] Monocytes/100 WBC Auto (Bld) Ordered By: Chon Valdez on 12-13-2022 Monocytes/100 WBC (Bld) 9.1 % . [facility] Neutrophils Auto (Bld) [#/Vo l]Ordered By: Chon Valdez on 12-13-2022 Neutrophils (Bld) [#/Vol] 5.0 10*3/uL 1.8-7.7 [facility] Neutrophils/100 WBC Auto (Bl d)Ordered By: Chon Valdez on 12-13-2022 Neutrophils/100 WBC (Bld) 67.8 % . [facility] No Panel InformationOrdered By: Chon Valdez on 12-13-2022 Estimated GFR (CKD-EPI) > 60.0 mL/Min [facility] Creatinine Clearance (Chem 86.28 [facility] Nucleated erythrocytes [Pres ence] in Blood by Automated countOrdered By: Chon Valdez on 12-13-2022 Nucleated RBC Auto Ql (Bld) 0.1 /100{WBC} 0-0.5 [facility] Platelet mean volume Auto (B ld) [Entitic vol]Ordered By: Chon Valdez on 12-13-2022 Platelet mean volume (Bld) [Entitic vol] 8.0 fL 6.3-10.7 [facility] Platelets Auto (Bld) [#/Vol] Ordered By: Chon Valdez on 12-13-2022 Platelets (Bld) [#/Vol] 204 10*3/uL 150-450 [facility] Potassium [Moles/volume] in Serum or PlasmaOrdered By: Chon Valdez on 12-13-2022 Potassium [Moles/Vol] 4.2 mmol/L 3.5-5.1 [facility] Protein [Mass/volume] in Ser um or PlasmaOrdered By: Chon Valdez on 12-13-2022 Protein [Mass/Vol] 6.9 g/dL 6.4-8.9 [facility] RBC Auto (Bld) [#/Vol]Ordere d By: Chon Valdez on 12-13-2022 RBC (Bld) [#/Vol] 4.49 10*6/uL 3.60-5.00 [facility] Serum or plasma albumin/glob ulin mass ratioOrdered By: Chon Valdez on 12-13-2022 Albumin/Globulin [Mass ratio] 1.4 {ratio} [facility] Serum or plasma anion gap de terminationOrdered By: Chon Valdez on 12-13-2022 Anion gap [Moles/Vol] 12.1 mmol/L 6.0-15.0 [facility] Sodium [Moles/volume] in Ser um or PlasmaOrdered By: Chon Valdez on 12-13-2022 Sodium [Moles/Vol] 141 mmol/L 136-145 [facility] Urea nitrogen [Mass/volume] in Serum or PlasmaOrdered By: Chon Valdez on 12-13-2022 Urea nitrogen [Mass/Vol] 24 mg/dL 7-25 [facility] WBC Auto (Bld) [#/Vol]Ordere d By: Chon Valdez on 12-13-2022 WBC (Bld) [#/Vol] 7.4 10*3/uL 3.8-11.6 [facility] Alanine aminotransferase [En zymatic activity/volume] in Serum or PlasmaOrdered By: Laith Warner on 12-01-2022 ALT [Catalytic activity/Vol] 21 U/L 7-52 [facility] Albumin [Mass/volume] in Ser um or Plasma by Bromocresol green (BCG) dye binding methoOrdered By: Laith Warner on 12-01-2022 Albumin BCG dye [Mass/Vol] 4.2 g/dL 3.5-5.7 [facility] Alkaline phosphatase [Enzyma tic activity/volume] in Serum or PlasmaOrdered By: Laith Warner on 12-01-2022 ALP [Catalytic activity/Vol] 71 U/L 34-104 [facility] Aspartate aminotransferase [ Enzymatic activity/volume] in Serum or PlasmaOrdered By: Laith Warner on 12-01-2022 AST [Catalytic activity/Vol] 26 U/L 13-39 [facility] Bacterial blood cultureOrder ed By: Laith Warner on 12-01-2022 Bacteria identified Cx Nom (Bld) NO GROWTH 5 DAYS [facility] Basophils Auto (Bld) [#/Vol] Ordered By: Laith Warner on 12-01-2022 Basophils (Bld) [#/Vol] 0.0 10*3/uL 0.0-0.2 [facility] Basophils/100 WBC Auto (Bld) Ordered By: Laith Warner on 12-01-2022 Basophils/100 WBC (Bld) 0.6 % . [facility] Bilirubin.total [Mass/volume ] in Serum or PlasmaOrdered By: Laith Warner on 12-01-2022 Bilirubin [Mass/Vol] 0.3 mg/dL 0.3-1.[address] [facility] Blood Cultureon 12-01-2022 Bacteria identified Cx Nom (Bld) NO GROWTH 5 DAYS PERFORMED BY: [place] [address] PATHOLOGIST MICROBIOLOGY QUALITY CONTROL TECHNICIAN IAN ACE M.D. [facility] Comment on above: Performed By: #### L ACTIC, CMP, CBC #### [address] Bacteria identified Cx Nom (Bld) NO GROWTH 5 DAYS PERFORMED BY: [place] [address] PATHOLOGIST MICROBIOLOGY QUALITY CONTROL TECHNICIAN IAN ACE M.D. [facility] Comment on above: Performed By: #### L ACTIC, CMP, CBC #### [facility] [address] Calcium [Mass/volume] in Ser um or PlasmaOrdered By: Laith Warner on 12-01-2022 Calcium [Mass/Vol] 8.9 mg/dL 8.6-10.3 [facility] Carbon dioxide, total [Moles /volume] in Serum or PlasmaOrdered By: Laith Warner on 12-01-2022 CO2 [Moles/Vol] 24.3 mmol/L 21.0-31.0 [facility] Chloride [Moles/volume] in S marivel or PlasmaOrdered By: Laith Warner on 12-01-2022 Chloride [Moles/Vol] 109 mmol/L 98-[address] [facility] Complete Blood Count Auto Di ffon 12-01-2022 Basophils (Bld) [#/Vol] 0.0 10*3/uL Normal 0.0-0.2 [facility] Comment on above: Result Comment: PERF ORMED BY: [facility] [address] [place] [address] PATHOLOGIST MICROBIOLOGY QUALITY CONTROL TECHNICIAN IAN ACE M.D. Performed By: #### G LULS #### Point of Care testing , Basophils/100 WBC (Bld) 0.6 % Normal . [facility] Comment on above: Performed By: #### G LULS #### Point of Care testing , Eosinophils (Bld) [#/Vol] 0.4 10*3/uL Normal 0.0-0.45 [facility] Comment on above: Performed By: #### G LULS #### Point of Care testing , Eosinophils/100 WBC (Bld) 5.7 % Normal . [facility] Comment on above: Performed By: #### G LULS #### Point of Care testing , Erythrocyte distribution width (RBC) [Ratio] 17.4 % High 11.9-15.3 [facility] Comment on above: Performed By: #### G LULS #### Point of Care testing , Hematocrit (Bld) [Volume fraction] 35.5 % Normal 34.0-46.4 [facility] Comment on above: Performed By: #### G KYAWLS #### Point of Care testing , Hemoglobin (Bld) [Mass/Vol] 11.5 g/dL Low 11.8-15.4 [facility] Comment on above: Performed By: #### G KYAWLS #### Point of Care testing , Lymphocytes (Bld) [#/Vol] 0.8 10*3/uL Low 1.00-4.8 [facility] Comment on above: Performed By: #### G KYAWLS #### Point of Care testing , Lymphocytes/100 WBC (Bld) 11.6 % Normal . [facility] Comment on above: Performed By: #### Jodi CARDLS #### Point of Care testing , MCH (RBC) [Entitic mass] 26.0 pg Normal 24.7-34.3 [facility] Comment on above: Performed By: #### Jodi AHMADI #### Point of Care testing , MCV (RBC) [Entitic vol] 80.2 fL Normal 80-100 [facility] Comment on above: Performed By: #### Jodi CARDLS #### Point of Care testing , Mean Corpuscular HGB Conc 32.5 g/dL Normal 32.0-35.0 [facility] Comment on above: Performed By: #### G KYAWLS #### Point of Care testing , Monocytes (Bld) [#/Vol] 0.6 10*3/uL Normal 0.0-0.8 [facility] Comment on above: Performed By: #### Jodi AHMADI #### Point of Care testing , Monocytes/100 WBC (Bld) 17.78 % Normal 0.00-20.00 [facility] Comment on above: Performed By: #### Jodi AHMADI #### Point of Care testing , Monocytes/100 WBC (Bld) 8.3 % Normal . [facility] Comment on above: Performed By: #### G KYAWLS #### Point of Care testing , Neutrophils (Bld) [#/Vol] 5.1 10*3/uL Normal 1.8-7.7 [facility] Comment on above: Performed By: #### G DAIANA #### Point of Care testing , Neutrophils/100 WBC (Bld) 73.8 % Normal . [facility] Comment on above: Performed By: #### G KYAWLS #### Point of Care testing , NRBC% 0.1 /100{WBC} Normal 0-0.5 [facility] Comment on above: Performed By: #### G DAIANA #### Point of Care testing , Platelet mean volume (Bld) [Entitic vol] 7.8 fL Normal 6.3-10.7 [facility] Comment on above: Performed By: #### G DAIANA #### Point of Care testing , Platelets (Bld) [#/Vol] 228 10*3/uL Normal 150-450 [facility] Comment on above: Performed By: #### G DAIANA #### Point of Care testing , RBC (Bld) [#/Vol] 4.43 10*6/uL Normal 3.60-5.00 [facility] Comment on above: Performed By: #### G DAIANA #### Point of Care testing , WBC (Bld) [#/Vol] 7.0 10*3/uL Normal 3.8-11.6 [facility] Comment on above: Performed By: #### G DAIANA #### Point of Care testing , Comprehensive Metabolic Pane jeremy 12-01-2022 Albumin [Mass/Vol] 4.2 g/dL Normal 3.5-5.7 [facility] Comment on above: Performed By: #### L ACTIC, CMP, CBC #### [facility] [address] [place] [address] [place] Albumin/Globulin [Mass ratio] 1.6 {ratio} Normal [facility] Comment on above: Performed By: #### L ACTIC, CMP, CBC #### [facility] [address] [place] [id number] [place] ALP [Catalytic activity/Vol] 71 U/L Normal 34-104 [facility] Comment on above: Performed By: #### L ACTIC, CMP, CBC #### [facility] [address] [place] [id number] [place] ALT [Catalytic activity/Vol] 21 U/L Normal 7-52 [facility] Comment on above: Performed By: #### L ACTIC, CMP, CBC #### [facility] [address] [place] [id number] [facility] Anion gap [Moles/Vol] 11.3 mmol/L Normal 6.0-15.0 [facility] Comment on above: Performed By: #### L ACTIC, CMP, CBC #### [facility] [address] AST [Catalytic activity/Vol] 26 U/L Normal 13-39 [facility] Comment on above: Performed By: #### L ACTPERCY, CMP, CBC #### [facility] [address] Bilirubin [Mass/Vol] 0.3 mg/dL Normal 0.3-1.[address] [facility] Comment on above: Performed By: #### L ACTIC, CMP, CBC #### [facility] [address] Calcium [Mass/Vol] 8.9 mg/dL Normal 8.6-10.3 [facility] Comment on above: Performed By: #### L ACTPERCY, CMP, CBC #### [facility] [address] [place] [address] [place] Chloride [Moles/Vol] 109 mmol/L High 98-[address] [facility] Comment on above: Performed By: #### L ACTIC, CMP, CBC #### [facility] [address] [place] [id number] [place] CO2 [Moles/Vol] 24.3 mmol/L Normal 21.0-31.0 [facility] Comment on above: Performed By: #### L ACTIC, CMP, CBC #### [facility] [address] [place] [id number] [place] Creatinine [Mass/Vol] 0.84 mg/dL Normal 0.60-1.20 [facility] Comment on above: Performed By: #### L ACTIC, CMP, CBC #### [facility] [address] [place] [address] [place] Creatinine Clr Calc Pharmacy 95.60 [facility] Comment on above: Result Comment: PERF ORMED BY: [place] [address] PATHOLOGIST MICROBIOLOGY QUALITY CONTROL TECHNICIAN IAN ACE M.D. Performed By: #### L ACTIC CMP, CBC #### [place] [address] [place] GFR/1.73 sq M.predicted MDRD (S/P/Bld) [Vol rate/Area] mL/min/{1.73_m2} [facility] Comment on above: Performed By: #### L ACTPERCY CMP, CBC #### [address] Globulin (S) [Mass/Vol] 2.6 g/dL [facility] Comment on above: Performed By: #### L ACTPERCY CMP, CBC #### [address] Glucose [Mass/Vol] 89 mg/dL Normal 70-100 [facility] Comment on above: Result Comment: [facility] Glucose Reference Range is dependent on time and content of last meal. Glucose of more than 200 mg/dL in a nonstressed, ambulatory subject supports the diagnosis of Diabetes Mellitus. ADA recommended reference range Performed By: #### L ACTPERCY CMP, CBC #### [place] [address] [place] Potassium [Moles/Vol] 3.6 mmol/L Normal 3.5-5.1 [facility] Comment on above: Performed By: #### L ACTIC CMP, CBC #### [place] [address] [place] Protein [Mass/Vol] 6.8 g/dL Normal 6.4-8.9 [facility] Comment on above: Performed By: #### L ACTIC, CMP, CBC #### [place] [address] [place] Sodium [Moles/Vol] 141 mmol/L Normal 136-145 [facility] Comment on above: Performed By: #### L ACTIC, CMP, CBC #### [facility] [address] [place] [address] [place] Urea nitrogen [Mass/Vol] 24 mg/dL Normal 7-25 [facility] Comment on above: Performed By: #### L ACTIC, CMP, CBC #### [facility] [address] [place] [address] [place] Creatinine [Mass/volume] in Serum or PlasmaOrdered By: Laith Warner on 12-01-2022 Creatinine [Mass/Vol] 0.84 mg/dL 0.60-1.20 [facility] Eosinophils Auto (Bld) [#/Vo l]Ordered By: Laith Warner on 12-01-2022 Eosinophils (Bld) [#/Vol] 0.4 10*3/uL 0.0-0.45 [facility] Eosinophils/100 WBC Auto (Bl d)Ordered By: Laith Warner on 12-01-2022 Eosinophils/100 WBC (Bld) 5.7 % . [facility] Erythrocyte distribution wid th Auto (RBC) [Ratio]Ordered By: Laith Warner on 12-01-2022 Erythrocyte distribution width (RBC) [Ratio] 17.4 % 11.9-15.3 [facility] Globulin Calc (S) [Mass/Vol] Ordered By: Laith Warner on 12-01-2022 Globulin (S) [Mass/Vol] 2.6 g/dL [facility] Glucose [Mass/volume] in Ser um or PlasmaOrdered By: Laith Warner on 12-01-2022 Glucose [Mass/Vol] 89 mg/dL 70-100 [facility] Comment on above: ADA recommended refe rence rangeRandom Glucose Reference Range is dependent on time and content of last meal. Glucose of more than 200 mg/dL in a nonstressed, ambulatory subject supports the diagnosis of Diabetes Mellitus. Hematocrit Auto (Bld) [Volum e fraction]Ordered By: Laith Warner on 12-01-2022 Hematocrit (Bld) [Volume fraction] 35.5 % 34.0-46.4 [facility] Hemoglobin [Mass/volume] in BloodOrdered By: Laith Warner on 12-01-2022 Hemoglobin (Bld) [Mass/Vol] 11.5 g/dL 11.8-15.4 [facility] Lactate [Moles/volume] in Se rum or PlasmaOrdered By: Laith Warner on 12-01-2022 Lactate [Moles/Vol] 0.5 mmol/L 0.5-2.2 [facility] Lactic Acidon 12-01-2022 Lactate [Moles/Vol] 0.5 mmol/L Normal 0.5-2.2 [facility] Comment on above: Result Comment: PERF ORMED BY: [facility] [address] [place] [address] PATHOLOGIST MICROBIOLOGY QUALITY CONTROL TECHNICIAN IAN ACE M.D. Performed By: #### G LULS #### Point of Care testing , Leukocytes [#/volume] correc julia for nucleated erythrocytes in Blood by Automated counOrdered By: Laith Warner on 12-01-2022 WBC corrected for nucl RBC Auto (Bld) [#/Vol] 7.0 10*3/uL 3.8-11.6 [facility] Lymphocytes Auto (Bld) [#/Vo l]Ordered By: Laith Warner on 12-01-2022 Lymphocytes (Bld) [#/Vol] 0.8 10*3/uL 1.00-4.8 [facility] Lymphocytes/100 WBC Auto (Bl d)Ordered By: Laith Warner on 12-01-2022 Lymphocytes/100 WBC (Bld) 11.6 % . [facility] MCH Auto (RBC) [Entitic mass ]Ordered By: Laith Warner on 12-01-2022 MCH (RBC) [Entitic mass] 26.0 pg 24.7-34.3 [facility] MCHC Auto (RBC) [Mass/Vol]Or dered By: Liath Warner on 12-01-2022 MCHC (RBC) [Mass/Vol] 32.5 g/dL 32.0-35.0 [facility] MCV Auto (RBC) [Entitic vol] Ordered By: Laith Warner on 12-01-2022 MCV (RBC) [Entitic vol] 80.2 fL 80-100 [facility] Monocyte distribution width [Entitic volume] in Blood by AutomatedOrdered By: Laith Warner on 12-01-2022 Monocyte distribution width Auto (Bld) [Entitic vol] 17.78 % 0.00-20.00 [facility] Monocytes Auto (Bld) [#/Vol] Ordered By: Laith Warner on 12-01-2022 Monocytes (Bld) [#/Vol] 0.6 10*3/uL 0.0-0.8 [facility] Monocytes/100 WBC Auto (Bld) Ordered By: Laith Warner on 12-01-2022 Monocytes/100 WBC (Bld) 8.3 % . [facility] Neutrophils Auto (Bld) [#/Vo l]Ordered By: Laith Warner on 12-01-2022 Neutrophils (Bld) [#/Vol] 5.1 10*3/uL 1.8-7.7 [facility] Neutrophils/100 WBC Auto (Bl d)Ordered By: Laith Warner on 12-01-2022 Neutrophils/100 WBC (Bld) 73.8 % . [facility] No Panel InformationOrdered By: Laith Warner on 12-01-2022 Estimated GFR (CKD-EPI) > 60.0 mL/Min [facility] Creatinine Clearance (Chem 95.60 [facility] Nucleated erythrocytes [Pres ence] in Blood by Automated countOrdered By: Laith Warner on 12-01-2022 Nucleated RBC Auto Ql (Bld) 0.1 /100{WBC} 0-0.5 [facility] Platelet mean volume Auto (B ld) [Entitic vol]Ordered By: Laith Warner on 12-01-2022 Platelet mean volume (Bld) [Entitic vol] 7.8 fL 6.3-10.7 [facility] Platelets Auto (Bld) [#/Vol] Ordered By: Laith Warner on 12-01-2022 Platelets (Bld) [#/Vol] 228 10*3/uL 150-450 [facility] Potassium [Moles/volume] in Serum or PlasmaOrdered By: Laith Warner on 12-01-2022 Potassium [Moles/Vol] 3.6 mmol/L 3.5-5.1 [facility] Protein [Mass/volume] in Ser um or PlasmaOrdered By: Laith Warner on 12-01-2022 Protein [Mass/Vol] 6.8 g/dL 6.4-8.9 [facility] RBC Auto (Bld) [#/Vol]Ordere d By: Laith Warner on 12-01-2022 RBC (Bld) [#/Vol] 4.43 10*6/uL 3.60-5.00 [facility] Serum or plasma albumin/glob ulin mass ratioOrdered By: Laith Warner on 12-01-2022 Albumin/Globulin [Mass ratio] 1.6 {ratio} [facility] Serum or plasma anion gap de terminationOrdered By: Laith Warner on 12-01-2022 Anion gap [Moles/Vol] 11.3 mmol/L 6.0-15.0 [facility] Sodium [Moles/volume] in Ser um or PlasmaOrdered By: Laith Warner on 12-01-2022 Sodium [Moles/Vol] 141 mmol/L 136-145 [facility] Urea nitrogen [Mass/volume] in Serum or PlasmaOrdered By: Laith Warner on 12-01-2022 Urea nitrogen [Mass/Vol] 24 mg/dL 7-25 [facility] WBC Auto (Bld) [#/Vol]Ordere d By: Laith Warner on 12-01-2022 WBC (Bld) [#/Vol] 7.0 10*3/uL 3.8-11.6 [facility] Alanine aminotransferase [En zymatic activity/volume] in Serum or PlasmaOrdered By: Jhonatan Crowell on 11-05-2022 ALT [Catalytic activity/Vol] 20 U/L 7-52 [facility] Albumin [Mass/volume] in Ser um or Plasma by Bromocresol green (BCG) dye binding methoOrdered By: Jhonatan Crowell on 11-05-2022 Albumin BCG dye [Mass/Vol] 3.9 g/dL 3.5-5.7 [facility] Alkaline phosphatase [Enzyma tic activity/volume] in Serum or PlasmaOrdered By: Jhonatan Crowell on 11-05-2022 ALP [Catalytic activity/Vol] 77 U/L 34-104 [facility] Aspartate aminotransferase [ Enzymatic activity/volume] in Serum or PlasmaOrdered By: Jhonatan Crowell on 11-05-2022 AST [Catalytic activity/Vol] 22 U/L 13-39 [facility] Bacterial blood cultureOrder ed By: Jhonatan Crowell on 11-05-2022 Bacteria identified Cx Nom (Bld) NO GROWTH 5 DAYS [facility] Basophils Auto (Bld) [#/Vol] Ordered By: Jhonatan Crowell on 11-05-2022 Basophils (Bld) [#/Vol] 0.0 10*3/uL 0.0-0.2 [facility] Basophils/100 WBC Auto (Bld) Ordered By: Jhonatan Crowell on 11-05-2022 Basophils/100 WBC (Bld) 0.6 % . [facility] Bilirubin.total [Mass/volume ] in Serum or PlasmaOrdered By: Jhonatan Crowell on 11-05-2022 Bilirubin [Mass/Vol] 0.5 mg/dL 0.3-1.[address] [facility] Blood Cultureon 11-05-2022 Bacteria identified Cx Nom (Bld) NO GROWTH 5 DAYS PERFORMED BY: [place] [address] PATHOLOGIST MICROBIOLOGY QUALITY CONTROL TECHNICIAN IAN ACE M.D. [facility] Comment on above: Performed By: #### L ACTIC, CMP, CBC #### [facility] [address] [place] [address] Bacteria identified Cx Nom (Bld) NO GROWTH 5 DAYS PERFORMED BY: [place] [address] PATHOLOGIST MICROBIOLOGY QUALITY CONTROL TECHNICIAN IAN ACE M.D. [facility] Comment on above: Performed By: #### L ACTIC, CMP, CBC #### [facility] [address] [place] [address] [place] Calcium [Mass/volume] in Ser um or PlasmaOrdered By: Jhonatan Crowell on 11-05-2022 Calcium [Mass/Vol] 8.9 mg/dL 8.6-10.3 [facility] Carbon dioxide, total [Moles /volume] in Serum or PlasmaOrdered By: Jhonatan Crowell on 11-05-2022 CO2 [Moles/Vol] 28.5 mmol/L 21.0-31.0 [facility] Chloride [Moles/volume] in S marivel or PlasmaOrdered By: Jhonatan Crowell on 11-05-2022 Chloride [Moles/Vol] 106 mmol/L 98-[address] [facility] Complete Blood Count Auto Di ffon 11-05-2022 Basophils (Bld) [#/Vol] 0.0 10*3/uL Normal 0.0-0.2 [facility] Comment on above: Result Comment: PERF ORMED BY: [place] [address] PATHOLOGIST MICROBIOLOGY QUALITY CONTROL TECHNICIAN IAN ACE M.D. Performed By: #### L ACTIC, CMP, CBC #### [address] Basophils/100 WBC (Bld) 0.6 % Normal . [facility] Comment on above: Performed By: #### L ACTIC, CMP, CBC #### [facility] [address] [place] [address] Eosinophils (Bld) [#/Vol] 0.2 10*3/uL Normal 0.0-0.45 [facility] Comment on above: Performed By: #### L ACTIC, CMP, CBC #### [address] Eosinophils/100 WBC (Bld) 2.9 % Normal . [facility] Comment on above: Performed By: #### L ACTIC, CMP, CBC #### [address] Erythrocyte distribution width (RBC) [Ratio] 16.7 % High 11.9-15.3 [facility] Comment on above: Performed By: #### L ACTIC, CMP, CBC #### [facility] [address] [place] [address] Hematocrit (Bld) [Volume fraction] 37.5 % Normal 34.0-46.4 [facility] Comment on above: Performed By: #### L ACTIC, CMP, CBC #### [address] Hemoglobin (Bld) [Mass/Vol] 12.2 g/dL Normal 11.8-15.4 [facility] Comment on above: Performed By: #### L ACTIC, CMP, CBC #### [facility] [address] Lymphocytes (Bld) [#/Vol] 0.8 10*3/uL Low 1.00-4.8 [facility] Comment on above: Performed By: #### L ACTIC, CMP, CBC #### [address] Lymphocytes/100 WBC (Bld) 11.3 % Normal . [facility] Comment on above: Performed By: #### L ACTIC, CMP, CBC #### [address] MCH (RBC) [Entitic mass] 25.8 pg Normal 24.7-34.3 [facility] Comment on above: Performed By: #### L ACTIC, CMP, CBC #### [address] MCV (RBC) [Entitic vol] 79.3 fL Low 80-100 [facility] Comment on above: Performed By: #### L ACTIC, CMP, CBC #### [address] Mean Corpuscular HGB Conc 32.5 g/dL Normal 32.0-35.0 [facility] Comment on above: Performed By: #### L ACTIC, CMP, CBC #### [place] [address] [place] Monocytes (Bld) [#/Vol] 0.5 10*3/uL Normal 0.0-0.8 [facility] Comment on above: Performed By: #### L ACTIC, CMP, CBC #### [place] [address] [place] Monocytes/100 WBC (Bld) 16.42 % Normal 0.00-20.00 [facility] Comment on above: Performed By: #### L ACTIC, CMP, CBC #### [facility] [address] [place] [address] [place] Monocytes/100 WBC (Bld) 7.1 % Normal . [facility] Comment on above: Performed By: #### L ACTIC, CMP, CBC #### [facility] [address] [place] [address] [place] Neutrophils (Bld) [#/Vol] 5.4 10*3/uL Normal 1.8-7.7 [facility] Comment on above: Performed By: #### L ACTIC, CMP, CBC #### [facility] [address] [place] [address] [place] Neutrophils/100 WBC (Bld) 78.1 % Normal . [facility] Comment on above: Performed By: #### L ACTIC, CMP, CBC #### [facility] [address] [place] [address] [place] NRBC% 0.1 /100{WBC} Normal 0-0.5 [facility] Comment on above: Performed By: #### L ACTIC, CMP, CBC #### [facility] [address] [place] [address] [place] Platelet mean volume (Bld) [Entitic vol] 8.1 fL Normal 6.3-10.7 [facility] Comment on above: Performed By: #### L ACTIC, CMP, CBC #### [facility] [address] [place] [id number] [place] Platelets (Bld) [#/Vol] 233 10*3/uL Normal 150-450 [facility] Comment on above: Performed By: #### L ACTIC, CMP, CBC #### [facility] [address] [place] [address] [place] RBC (Bld) [#/Vol] 4.73 10*6/uL Normal 3.60-5.00 [facility] Comment on above: Performed By: #### L ACTIC, CMP, CBC #### [facility] [address] [place] [address] [place] WBC (Bld) [#/Vol] 6.9 10*3/uL Normal 3.8-11.6 [facility] Comment on above: Performed By: #### L ACTPERCY CMP, CBC #### [facility] [address] [place] [address] Comprehensive Metabolic Pane jeremy 11-05-2022 Albumin [Mass/Vol] 3.9 g/dL Normal 3.5-5.7 [facility] Comment on above: Performed By: #### L ACTIC CMP, CBC #### [address] Albumin/Globulin [Mass ratio] 1.3 {ratio} Normal [facility] Comment on above: Performed By: #### L ACTPERCY CMP, CBC #### [address] ALP [Catalytic activity/Vol] 77 U/L Normal 34-104 [facility] Comment on above: Performed By: #### L ACTPERCY CMP, CBC #### [address] ALT [Catalytic activity/Vol] 20 U/L Normal 7-52 [facility] Comment on above: Performed By: #### L ACTPERCY CMP, CBC #### [address] Anion gap [Moles/Vol] 10.6 mmol/L Normal 6.0-15.0 [facility] Comment on above: Performed By: #### L ACTPERCY, CMP, CBC #### [address] AST [Catalytic activity/Vol] 22 U/L Normal 13-39 [facility] Comment on above: Performed By: #### L ACTPERCY CMP, CBC #### [address] Bilirubin [Mass/Vol] 0.5 mg/dL Normal 0.3-1.[address] [facility] Comment on above: Performed By: #### L ACTIC, CMP, CBC #### [place] [address] [place] Calcium [Mass/Vol] 8.9 mg/dL Normal 8.6-10.3 [facility] Comment on above: Performed By: #### L ACTIC CMP, CBC #### [address] Chloride [Moles/Vol] 106 mmol/L Normal 98-[address] [facility] Comment on above: Performed By: #### L ACTIC, CMP, CBC #### [address] CO2 [Moles/Vol] 28.5 mmol/L Normal 21.0-31.0 [facility] Comment on above: Performed By: #### L ACTPERCY CMP, CBC #### [address] Creatinine [Mass/Vol] 0.71 mg/dL Normal 0.60-1.20 [facility] Comment on above: Performed By: #### L ACTPERCY CMP, CBC #### [address] Creatinine Clr Calc Pharmacy 100.16 [facility] Comment on above: Result Comment: PERF ORMED BY: [place] [address] PATHOLOGIST MICROBIOLOGY QUALITY CONTROL TECHNICIAN IAN ACE M.D. Performed By: #### L ACTPERCY CMP, CBC #### [address] GFR/1.73 sq M.predicted MDRD (S/P/Bld) [Vol rate/Area] mL/min/{1.73_m2} [facility] Comment on above: Performed By: #### L ACTIC, CMP, CBC #### [address] Globulin (S) [Mass/Vol] 3.0 g/dL [facility] Comment on above: Performed By: #### L ACTIC, CMP, CBC #### [address] Glucose [Mass/Vol] 92 mg/dL Normal 70-100 [facility] Comment on above: Result Comment: [place] Glucose Reference Range is dependent on time and content of last meal. Glucose of more than 200 mg/dL in a nonstressed, ambulatory subject supports the diagnosis of Diabetes Mellitus. ADA recommended reference range Performed By: #### L ACTIC, CMP, CBC #### [facility] [address] Potassium [Moles/Vol] 4.1 mmol/L Normal 3.5-5.1 [facility] Comment on above: Performed By: #### L ACTIC, CMP, CBC #### [facility] [address] Protein [Mass/Vol] 6.9 g/dL Normal 6.4-8.9 [facility] Comment on above: Performed By: #### L ACTIC, CMP, CBC #### [facility] [address] [place] [address] [place] Sodium [Moles/Vol] 141 mmol/L Normal 136-145 [facility] Comment on above: Performed By: #### L ACTIC, CMP, CBC #### [facility] [address] [place] [address] [place] Urea nitrogen [Mass/Vol] 18 mg/dL Normal 7-25 [facility] Comment on above: Performed By: #### L ACTIC, CMP, CBC #### [facility] [address] [place] [address] [place] Creatinine [Mass/volume] in Serum or PlasmaOrdered By: Jhonatan Crowell on 11-05-2022 Creatinine [Mass/Vol] 0.71 mg/dL 0.60-1.20 [facility] Eosinophils Auto (Bld) [#/Vo l]Ordered By: Jhonatan Crowell on 11-05-2022 Eosinophils (Bld) [#/Vol] 0.2 10*3/uL 0.0-0.45 [facility] Eosinophils/100 WBC Auto (Bl d)Ordered By: Jhonatan Crowell on 11-05-2022 Eosinophils/100 WBC (Bld) 2.9 % . [facility] Erythrocyte distribution wid th Auto (RBC) [Ratio]Ordered By: Jhonatan Crowell on 11-05-2022 Erythrocyte distribution width (RBC) [Ratio] 16.7 % 11.9-15.3 [facility] Globulin Calc (S) [Mass/Vol] Ordered By: Jhonatan Crowell on 11-05-2022 Globulin (S) [Mass/Vol] 3.0 g/dL [facility] Glucose [Mass/volume] in Ser um or PlasmaOrdered By: Jhonatan Crowell on 11-05-2022 Glucose [Mass/Vol] 92 mg/dL 70-100 [facility] Comment on above: ADA recommended refe rence rangeRandom Glucose Reference Range is dependent on time and content of last meal. Glucose of more than 200 mg/dL in a nonstressed, ambulatory subject supports the diagnosis of Diabetes Mellitus. Hematocrit Auto (Bld) [Volum e fraction]Ordered By: Jhonatan Crowell on 11-05-2022 Hematocrit (Bld) [Volume fraction] 37.5 % 34.0-46.4 [facility] Hemoglobin [Mass/volume] in BloodOrdered By: Jhonatan Crowell on 11-05-2022 Hemoglobin (Bld) [Mass/Vol] 12.2 g/dL 11.8-15.4 [facility] Leukocytes [#/volume] correc julia for nucleated erythrocytes in Blood by Automated counOrdered By: Jhonatan Crowell on 11-05-2022 WBC corrected for nucl RBC Auto (Bld) [#/Vol] 6.9 10*3/uL 3.8-11.6 [facility] Lymphocytes Auto (Bld) [#/Vo l]Ordered By: Jhonatan Crowell on 11-05-2022 Lymphocytes (Bld) [#/Vol] 0.8 10*3/uL 1.00-4.8 [facility] Lymphocytes/100 WBC Auto (Bl d)Ordered By: Jhonatan Crowell on 11-05-2022 Lymphocytes/100 WBC (Bld) 11.3 % . [facility] MCH Auto (RBC) [Entitic mass ]Ordered By: Jhonatan Crowell on 11-05-2022 MCH (RBC) [Entitic mass] 25.8 pg 24.7-34.3 [facility] MCHC Auto (RBC) [Mass/Vol]Or dered By: Jhonatan Crowell on 11-05-2022 MCHC (RBC) [Mass/Vol] 32.5 g/dL 32.0-35.0 [facility] MCV Auto (RBC) [Entitic vol] Ordered By: Jhonatan rCowell on 11-05-2022 MCV (RBC) [Entitic vol] 79.3 fL 80-100 [facility] Monocyte distribution width [Entitic volume] in Blood by AutomatedOrdered By: Jhonatan Crowell on 11-05-2022 Monocyte distribution width Auto (Bld) [Entitic vol] 16.42 % 0.00-20.00 [facility] Monocytes Auto (Bld) [#/Vol] Ordered By: Jhonatan Crowell on 11-05-2022 Monocytes (Bld) [#/Vol] 0.5 10*3/uL 0.0-0.8 [facility] Monocytes/100 WBC Auto (Bld) Ordered By: Jhonatan Crowell on 11-05-2022 Monocytes/100 WBC (Bld) 7.1 % . [facility] Neutrophils Auto (Bld) [#/Vo l]Ordered By: Jhonatan Crowell on 11-05-2022 Neutrophils (Bld) [#/Vol] 5.4 10*3/uL 1.8-7.7 [facility] Neutrophils/100 WBC Auto (Bl d)Ordered By: Jhonatan Crowell on 11-05-2022 Neutrophils/100 WBC (Bld) 78.1 % . [facility] No Panel InformationOrdered By: Jhonatan Crowell on 11-05-2022 Estimated GFR (CKD-EPI) > 60.0 mL/Min [facility] Creatinine Clearance (Chem 100.16 [facility] Nucleated erythrocytes [Pres ence] in Blood by Automated countOrdered By: Jhonatan Crowell on 11-05-2022 Nucleated RBC Auto Ql (Bld) 0.1 /100{WBC} 0-0.5 [facility] Platelet mean volume Auto (B ld) [Entitic vol]Ordered By: Jhonatan Crowell on 11-05-2022 Platelet mean volume (Bld) [Entitic vol] 8.1 fL 6.3-10.7 [facility] Platelets Auto (Bld) [#/Vol] Ordered By: Jhonatan Crowell on 11-05-2022 Platelets (Bld) [#/Vol] 233 10*3/uL 150-450 [facility] Potassium [Moles/volume] in Serum or PlasmaOrdered By: Jhonatan Crowell on 11-05-2022 Potassium [Moles/Vol] 4.1 mmol/L 3.5-5.1 [facility] Protein [Mass/volume] in Ser um or PlasmaOrdered By: Jhonatan Crowell on 11-05-2022 Protein [Mass/Vol] 6.9 g/dL 6.4-8.9 [facility] RBC Auto (Bld) [#/Vol]Ordere d By: Jhonatan Crowell on 11-05-2022 RBC (Bld) [#/Vol] 4.73 10*6/uL 3.60-5.00 [facility] Serum or plasma albumin/glob ulin mass ratioOrdered By: Jhonatan Crowell on 11-05-2022 Albumin/Globulin [Mass ratio] 1.3 {ratio} [facility] Serum or plasma anion gap de terminationOrdered By: Jhonatan Crowell on 11-05-2022 Anion gap [Moles/Vol] 10.6 mmol/L 6.0-15.0 [facility] Sodium [Moles/volume] in Ser um or PlasmaOrdered By: Jhonatan Crowell on 11-05-2022 Sodium [Moles/Vol] 141 mmol/L 136-145 [facility] Urea nitrogen [Mass/volume] in Serum or PlasmaOrdered By: Jhonatan Crowell on 11-05-2022 Urea nitrogen [Mass/Vol] 18 mg/dL 7-25 [facility] WBC Auto (Bld) [#/Vol]Ordere d By: Jhonatan Crowell on 11-05-2022 WBC (Bld) [#/Vol] 6.9 10*3/uL 3.8-11.6 [facility] XR tibia fibula LT 2V*on XR tibia fibula LT 2V* [place] [address] XRay Report Signed Patient: [place]ia Cesar MR#: [id number] : 1955 Acct:[id number] Age/Sex: 66 / F ADM Date: 11/05/22 Loc: ER Room: Type: PRE ER Attending Dr: Copies to: Jhonatan Crowell DO Ordering Provider: Jhonatan Crowell DO Date of Service: 11/05/22 XR/XR tibia fibula LT 2V*: Skin/Abscess/Foreign Body LEFT TIBIA AND FIBULA - 2 views CLINICAL HISTORY: Right lower extremity cellulitis with erythema and swelling. COMPARISON: None AP and lateral views of the left tibia and fibula were obtained. There is no evidence of fracture, dislocation or bony destruction. There is generalized prominence of the soft tissues, in part related to large body habitus. There is also diffuse subcutaneous edema. XR/XR tibia fibula LT 2V* IMPRESSION: NO ACUTE BONY FINDINGS. Impression dictated by: Padmini Bethea M.D.11/05/2022 12:27 PM Dictation Location: [place] [address] Transcribed By: [facility] 11/05/22 1227 Dictated By: Padmini Bethea MD 11/05/22 1225 Signed By: 11/05/22 1227 Normal [facility] Alanine aminotransferase [En zymatic activity/volume] in Serum or PlasmaOrdered By: Gerald Theodore on 10-12-2022 ALT [Catalytic activity/Vol] 20 U/L 7-52 [facility] Albumin [Mass/volume] in Ser um or Plasma by Bromocresol green (BCG) dye binding methoOrdered By: Gerald Theodore on 10-12-2022 Albumin BCG dye [Mass/Vol] 3.5 g/dL 3.5-5.7 [facility] Alkaline phosphatase [Enzyma tic activity/volume] in Serum or PlasmaOrdered By: Gerald Theodore on 10-12-2022 ALP [Catalytic activity/Vol] 67 U/L 34-104 [facility] Aspartate aminotransferase [ Enzymatic activity/volume] in Serum or PlasmaOrdered By: Gerald Theodore on 05-07-2023 AST [Catalytic activity/Vol] 23 U/L 13-39 [facility] Bacterial blood cultureOrder ed By: Gerald Theodore on 10-12-2022 Bacteria identified Cx Nom (Bld) NO GROWTH 5 DAYS [facility] Basophils Auto (Bld) [#/Vol] Ordered By: Gerald Theodore on 10-12-2022 Basophils (Bld) [#/Vol] 0.0 10*3/uL 0.0-0.2 [facility] Basophils/100 WBC Auto (Bld) Ordered By: Gerald Theodore on 10-12-2022 Basophils/100 WBC (Bld) 0.5 % . [facility] Bilirubin.total [Mass/volume ] in Serum or PlasmaOrdered By: Gerald Theodore on 10-12-2022 Bilirubin [Mass/Vol] 0.4 mg/dL 0.3-1.[address] [facility] Blood Cultureon 10-12-2022 Bacteria identified Cx Nom (Bld) NO GROWTH 5 DAYS PERFORMED BY: [address] [place] [address] PATHOLOGIST MICROBIOLOGY QUALITY CONTROL TECHNICIAN IAN ACE M.D. [facility] Comment on above: Performed By: #### C UBLD, CMP, CBC #### [facility] [address] [place] [address] [place] C reactive protein [Mass/vol ume] in Serum or PlasmaOrdered By: Gerald Theodore on 10-12-2022 CRP [Mass/Vol] 1.7 mg/dL 0.0-0.5 [facility] C-Reactive Proteinon 023 C-Reactive Protein 1.7 mg/dL High 0.0-0.5 [facility] Comment on above: Result Comment: PERF ORMED BY: [facility] [address] [facility] [place] [address] PATHOLOGIST MICROBIOLOGY QUALITY CONTROL TECHNICIAN IAN ACE M.D. Performed By: #### C UBLD, CMP, CBC #### [facility] [address] [place] [address] [place] Calcium [Mass/volume] in Ser um or PlasmaOrdered By: Gerald Theodore on 10-12-2022 Calcium [Mass/Vol] 8.4 mg/dL 8.6-10.3 [facility] Carbon dioxide, total [Moles /volume] in Serum or PlasmaOrdered By: Gerald Theodore on 10-12-2022 CO2 [Moles/Vol] 28.5 mmol/L 21.0-31.0 [facility] Chloride [Moles/volume] in S marivel or PlasmaOrdered By: Gerald Theodore on 10-12-2022 Chloride [Moles/Vol] 105 mmol/L 98-[address] [facility] Complete Blood Count Auto Di ffon 10-12-2022 Basophils (Bld) [#/Vol] 0.0 10*3/uL Normal 0.0-0.2 [facility] Comment on above: Performed By: #### C UBLD, CMP, CBC #### [facility] [address] Basophils/100 WBC (Bld) 0.5 % Normal . [facility] Comment on above: Performed By: #### C UBLD, CMP, CBC #### [facility] [address] Eosinophils (Bld) [#/Vol] 0.2 10*3/uL Normal 0.0-0.45 [facility] Comment on above: Performed By: #### C UBLD, CMP, CBC #### [facility] [address] Eosinophils/100 WBC (Bld) 1.8 % Normal . [facility] Comment on above: Performed By: #### C UBLD, CMP, CBC #### [facility] [address] Erythrocyte distribution width (RBC) [Ratio] 16.3 % High 11.9-15.3 [facility] Comment on above: Performed By: #### C UBLD, CMP, CBC #### [facility] [address] Hematocrit (Bld) [Volume fraction] 35.2 % Normal 34.0-46.4 [facility] Comment on above: Performed By: #### C UBLD, CMP, CBC #### [facility] [address] Hemoglobin (Bld) [Mass/Vol] 11.2 g/dL Low 11.8-15.4 [facility] Comment on above: Performed By: #### C UBLD, CMP, CBC #### [address] Lymphocytes (Bld) [#/Vol] 0.8 10*3/uL Low 1.00-4.8 [facility] Comment on above: Performed By: #### C UBLD, CMP, CBC #### [address] Lymphocytes/100 WBC (Bld) 9.6 % Normal . [facility] Comment on above: Performed By: #### C UBLD, CMP, CBC #### [address] MCH (RBC) [Entitic mass] 25.5 pg Normal 24.7-34.3 [facility] Comment on above: Performed By: #### C UBLD, CMP, CBC #### [address] MCV (RBC) [Entitic vol] 80.1 fL Normal 80-100 [facility] Comment on above: Performed By: #### C UBLD, CMP, CBC #### [address] Mean Corpuscular HGB Conc 31.8 g/dL Low 32.0-35.0 [facility] Comment on above: Performed By: #### C UBLD, CMP, CBC #### [place] [address] [place] Monocytes (Bld) [#/Vol] 0.7 10*3/uL Normal 0.0-0.8 [facility] Comment on above: Performed By: #### C UBLD, CMP, CBC #### [place] [address] [place] Monocytes/100 WBC (Bld) 14.89 % Normal 0.00-20.00 [facility] Comment on above: Performed By: #### C UBLD, CMP, CBC #### [facility] [address] [place] [address] [place] Monocytes/100 WBC (Bld) 7.9 % Normal . [facility] Comment on above: Performed By: #### C UBLD, CMP, CBC #### [facility] [address] Neutrophils (Bld) [#/Vol] 6.9 10*3/uL Normal 1.8-7.7 [facility] Comment on above: Performed By: #### C UBLD, CMP, CBC #### [facility] [address] Neutrophils/100 WBC (Bld) 80.2 % Normal . [facility] Comment on above: Performed By: #### C UBLD, CMP, CBC #### [facility] [address] NRBC% 0.1 /100{WBC} Normal 0-0.5 [facility] Comment on above: Performed By: #### C UBLD, CMP, CBC #### [facility] [address] [place] [address] [place] Platelet mean volume (Bld) [Entitic vol] 7.6 fL Normal 6.3-10.7 [facility] Comment on above: Performed By: #### C UBLD, CMP, CBC #### [facility] [address] [place] [address] [place] Platelets (Bld) [#/Vol] 215 10*3/uL Normal 150-450 [facility] Comment on above: Performed By: #### C UBLD, CMP, CBC #### [facility] [address] [place] [address] [place] RBC (Bld) [#/Vol] 4.39 10*6/uL Normal 3.60-5.00 [facility] Comment on above: Performed By: #### C UBLD, CMP, CBC #### [facility] [address] [place] [address] [place] WBC (Bld) [#/Vol] 8.6 10*3/uL Normal 3.8-11.6 [facility] Comment on above: Performed By: #### C UBLD, CMP, CBC #### [facility] [address] Comprehensive Metabolic Pane jeremy 10-12-2022 Albumin [Mass/Vol] 3.5 g/dL Normal 3.5-5.7 [facility] Comment on above: Performed By: #### C UBLD, CMP, CBC #### [address] Albumin/Globulin [Mass ratio] 1.4 {ratio} Normal [facility] Comment on above: Performed By: #### C UBLD, CMP, CBC #### [address] ALP [Catalytic activity/Vol] 67 U/L Normal 34-104 [facility] Comment on above: Performed By: #### C UBLD, CMP, CBC #### [address] ALT [Catalytic activity/Vol] 20 U/L Normal 7-52 [facility] Comment on above: Performed By: #### C UBLD, CMP, CBC #### [address] Anion gap [Moles/Vol] 11.1 mmol/L Normal 6.0-15.0 [facility] Comment on above: Performed By: #### C UBLD, CMP, CBC #### [address] AST [Catalytic activity/Vol] 23 U/L Normal 13-39 [facility] Comment on above: Performed By: #### C UBLD, CMP, CBC #### [address] Bilirubin [Mass/Vol] 0.4 mg/dL Normal 0.3-1.[address] [facility] Comment on above: Performed By: #### C UBLD, CMP, CBC #### [address] [address] [place] Calcium [Mass/Vol] 8.4 mg/dL Low 8.6-10.3 [facility] Comment on above: Performed By: #### C ALEXX RAND, CBC #### [facility] [address] Chloride [Moles/Vol] 105 mmol/L Normal 98-[address] [facility] Comment on above: Performed By: #### C ALEXX RAND, CBC #### [facility] [address] CO2 [Moles/Vol] 28.5 mmol/L Normal 21.0-31.0 [facility] Comment on above: Performed By: #### C ALEXX RAND, CBC #### [facility] [address] Creatinine [Mass/Vol] 0.69 mg/dL Normal 0.60-1.20 [facility] Comment on above: Performed By: #### C ALEXX RAND, CBC #### [facility] [address] [place] [address] [place] Creatinine Clr Calc Pharmacy 101.06 [facility] Comment on above: Performed By: #### C ALEXX RAND, CBC #### [facility] [address] [place] [address] [place] GFR/1.73 sq M.predicted MDRD (S/P/Bld) [Vol rate/Area] mL/min/{1.73_m2} [facility] Comment on above: Performed By: #### C UBPREMA CMP, CBC #### [facility] [address] [place] [address] [place] Globulin (S) [Mass/Vol] 2.5 g/dL [facility] Comment on above: Performed By: #### C ALEXX RAND, CBC #### [facility] [address] [place] [address] [place] Glucose [Mass/Vol] 92 mg/dL Normal 70-100 [facility] Comment on above: Result Comment: [facility] Glucose Reference Range is dependent on time and content of last meal. Glucose of more than 200 mg/dL in a nonstressed, ambulatory subject supports the diagnosis of Diabetes Mellitus. ADA recommended reference range Performed By: #### C UBLD, CMP, CBC #### [facility] [address] Potassium [Moles/Vol] 3.6 mmol/L Normal 3.5-5.1 [facility] Comment on above: Performed By: #### C UBLD, CMP, CBC #### [facility] [address] Protein [Mass/Vol] 6.0 g/dL Low 6.4-8.9 [facility] Comment on above: Performed By: #### C UBLD, CMP, CBC #### [facility] [address] Sodium [Moles/Vol] 141 mmol/L Normal 136-145 [facility] Comment on above: Performed By: #### C UBLD, CMP, CBC #### [facility] [address] Urea nitrogen [Mass/Vol] 20 mg/dL Normal 7-25 [facility] Comment on above: Performed By: #### C UBLD, CMP, CBC #### [facility] [address] Creatinine [Mass/volume] in Serum or PlasmaOrdered By: Gerald Theodore on 10-12-2022 Creatinine [Mass/Vol] 0.69 mg/dL 0.60-1.20 [facility] Eosinophils Auto (Bld) [#/Vo l]Ordered By: Gerald Theodore on 10-12-2022 Eosinophils (Bld) [#/Vol] 0.2 10*3/uL 0.0-0.45 [facility] Eosinophils/100 WBC Auto (Bl d)Ordered By: Gerald Theodore on 10-12-2022 Eosinophils/100 WBC (Bld) 1.8 % . [facility] Erythrocyte Sedimentation Ra emery 10-12-2022 ESR (Bld) [Velocity] 25 mm/h Normal 0-[address] [facility] Comment on above: Result Comment: PERF ORMED BY: [facility] [address] [place] [address] PATHOLOGIST MICROBIOLOGY QUALITY CONTROL TECHNICIAN IAN ACE M.D. Performed By: #### C UBLD, CMP, CBC #### [address] Erythrocyte distribution wid th Auto (RBC) [Ratio]Ordered By: Gerald Theodore on 10-12-2022 Erythrocyte distribution width (RBC) [Ratio] 16.3 % 11.9-15.3 [facility] Erythrocyte sedimentation ra te by Photometric methodOrdered By: Gerald Theodore on 10-12-2022 ESR Photometric method (Bld) [Velocity] 25 mm/hr 0-29 [facility] Globulin Calc (S) [Mass/Vol] Ordered By: Gerald Theodore on 10-12-2022 Globulin (S) [Mass/Vol] 2.5 g/dL [facility] Glucose [Mass/volume] in Ser um or PlasmaOrdered By: Gerald Theodore on 10-12-2022 Glucose [Mass/Vol] 92 mg/dL 70-100 [facility] Comment on above: ADA recommended refe rence rangeRandom Glucose Reference Range is dependent on time and content of last meal. Glucose of more than 200 mg/dL in a nonstressed, ambulatory subject supports the diagnosis of Diabetes Mellitus. Hematocrit Auto (Bld) [Volum e fraction]Ordered By: Gerald Theodore on 10-12-2022 Hematocrit (Bld) [Volume fraction] 35.2 % 34.0-46.4 [facility] Hemoglobin [Mass/volume] in BloodOrdered By: Gerald Theodore on 10-12-2022 Hemoglobin (Bld) [Mass/Vol] 11.2 g/dL 11.8-15.4 [facility] Lactate [Moles/volume] in Se rum or PlasmaOrdered By: Gerald Theodore on 10-12-2022 Lactate [Moles/Vol] 0.6 mmol/L 0.5-2.2 [facility] Lactic Acidon 10-12-2022 Lactate [Moles/Vol] 0.6 mmol/L Normal 0.5-2.2 [facility] Comment on above: Result Comment: PERF ORMED BY: [facility] [address] [place] [address] PATHOLOGIST MICROBIOLOGY QUALITY CONTROL TECHNICIAN IAN ACE M.D. Performed By: #### C UBLD, CMP, CBC #### [facility] [address] Leukocytes [#/volume] correc julia for nucleated erythrocytes in Blood by Automated counOrdered By: Gerald Theodore on 10-12-2022 WBC corrected for nucl RBC Auto (Bld) [#/Vol] 8.6 10*3/uL 3.8-11.6 [facility] Lymphocytes Auto (Bld) [#/Vo l]Ordered By: Gerald Theodore on 10-12-2022 Lymphocytes (Bld) [#/Vol] 0.8 10*3/uL 1.00-4.8 [facility] Lymphocytes/100 WBC Auto (Bl d)Ordered By: Gerald Theodore on 10-12-2022 Lymphocytes/100 WBC (Bld) 9.6 % . [facility] MCH Auto (RBC) [Entitic mass ]Ordered By: Gerald Theodore on 10-12-2022 MCH (RBC) [Entitic mass] 25.5 pg 24.7-34.3 [facility] MCHC Auto (RBC) [Mass/Vol]Or dered By: Gerald Theodore on 10-12-2022 MCHC (RBC) [Mass/Vol] 31.8 g/dL 32.0-35.0 [facility] MCV Auto (RBC) [Entitic vol] Ordered By: Gerald Theodore on 10-12-2022 MCV (RBC) [Entitic vol] 80.1 fL 80-100 [facility] Monocyte distribution width [Entitic volume] in Blood by AutomatedOrdered By: Gerald Theodore on 10-12-2022 Monocyte distribution width Auto (Bld) [Entitic vol] 14.89 % 0.00-20.00 [facility] Monocytes Auto (Bld) [#/Vol] Ordered By: Gerald Theodore on 10-12-2022 Monocytes (Bld) [#/Vol] 0.7 10*3/uL 0.0-0.8 [facility] Monocytes/100 WBC Auto (Bld) Ordered By: Gerald Theodore on 10-12-2022 Monocytes/100 WBC (Bld) 7.9 % . [facility] Neutrophils Auto (Bld) [#/Vo l]Ordered By: Gerald Theodore on 10-12-2022 Neutrophils (Bld) [#/Vol] 6.9 10*3/uL 1.8-7.7 [facility] Neutrophils/100 WBC Auto (Bl d)Ordered By: Gerald Theodore on 10-12-2022 Neutrophils/100 WBC (Bld) 80.2 % . [facility] No Panel InformationOrdered By: Gerald Theodore on 10-12-2022 Estimated GFR (CKD-EPI) > 60.0 mL/Min [facility] Creatinine Clearance (Chem 101.06 [facility] Nucleated erythrocytes [Pres ence] in Blood by Automated countOrdered By: Gerald Theodore on 10-12-2022 Nucleated RBC Auto Ql (Bld) 0.1 /100{WBC} 0-0.5 [facility] Platelet mean volume Auto (B ld) [Entitic vol]Ordered By: Gerald Theodore on 10-12-2022 Platelet mean volume (Bld) [Entitic vol] 7.6 fL 6.3-10.7 [facility] Platelets Auto (Bld) [#/Vol] Ordered By: Gerald Theodore on 10-12-2022 Platelets (Bld) [#/Vol] 215 10*3/uL 150-450 [facility] Potassium [Moles/volume] in Serum or PlasmaOrdered By: Gerald Theodore on 10-12-2022 Potassium [Moles/Vol] 3.6 mmol/L 3.5-5.1 [facility] Protein [Mass/volume] in Ser um or PlasmaOrdered By: Gerald Theodore on 10-12-2022 Protein [Mass/Vol] 6.0 g/dL 6.4-8.9 [facility] RBC Auto (Bld) [#/Vol]Ordere d By: Gerald Theodore on 10-12-2022 RBC (Bld) [#/Vol] 4.39 10*6/uL 3.60-5.00 [facility] Serum or plasma albumin/glob ulin mass ratioOrdered By: Gerald Theodore on 10-12-2022 Albumin/Globulin [Mass ratio] 1.4 {ratio} [facility] Serum or plasma anion gap de terminationOrdered By: Gerald Theodore on 10-12-2022 Anion gap [Moles/Vol] 11.1 mmol/L 6.0-15.0 [facility] Sodium [Moles/volume] in Ser um or PlasmaOrdered By: Gerald Theodore on 10-12-2022 Sodium [Moles/Vol] 141 mmol/L 136-145 [facility] Urea nitrogen [Mass/volume] in Serum or PlasmaOrdered By: Gerald Theodore on 10-12-2022 Urea nitrogen [Mass/Vol] 20 mg/dL 7-25 [facility] WBC Auto (Bld) [#/Vol]Ordere d By: Gerald Theodore on 10-12-2022 WBC (Bld) [#/Vol] 8.6 10*3/uL 3.8-11.6 [facility] COVID Quick Testingon 2020 Result Positive [employer] Other Quick Fluon 06-06-2021 FLUAV Ab CF (S) [Titer] Negative [employer] Other FLUBV Ab CF (S) [Titer] Negative [employer] Other CNOVon 01-26-2017 CNOV Office Visit (CARDFT) ELIZABETH CESAR ([id number]) 1955 [facility] Time Provider Department01/26/17 10:30 AM CARL TY During your visit today, we recorded the following information about you: Pulse Respiration Blood pressure Weight 71/minute 18/minute 162/82 145.2 kg Height 1.613 Rajesh Ty MD 01/26/2017 10:54 AM [facility]Rob[facility] and [facility] Department of Cardiovascular MedicineOUTPATIENT VISIT DATEAugust 2016OUTPATIENT VISIT TYPENEW CONSULTATIONPRIMARY CARE PHYSICIAN:Pepe Fermin, [address] [address]X[place]ok: [phone]: [phone] COMPLAINT:Palpitations and shortness of breathHISTORY OF PRESENT ILLNESS:[place] Cesar is a 61 year old female who presents today to [facility] care.History includes morbid obesity, lymphedema, remote tobacco, obstructive sleepapnea on CPAP. For the past approximately 2 years, the patient palpitationsassociated with shortness of breath. She does not believe she hasn't increasein frequency of symptoms. She does note that symptoms occur randomly, both atrest and with exertion but mostly with exertion. There is no irregularity toher heart beat, but the heartbeats do feel more intense to her during theseepisodes. 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 She drinks up to 7 cupsof large coffees per day but has reduced that to 3 cups daily over the past 2weeks. She denies other stimulant sources including energy drinks, herbalsupplements, and weight loss drugs. She does not drink soda on a regularbasis. 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 She recently had anunremarkable Holter and stress test.Denies chest pain, orthopnea, cough, edema , PND, lightheadedness or syncope.No past medical history on file.No past surgical history on file.Social HistorySubstance Use Topics- Smoking status: Former Smoker Packs/day: 2.00 Years: 30.00 Types: Cigarettes Quit date: 01/26/2006- Smokeless tobacco: Not on file- Alcohol use Yes Comment: OccasionalFAMILY HISTORY Aneurysm Mother Comment: Thracic Hypertension Mother Thyroid Mother Kidney Disease Father Diabetes Father Stroke Father Heart Brother Comment: Heart Disease Stroke Brother Hypertension BrotherALLERGIES:ALLERGIE SNo Known AllergiesMEDICATIONS:No prescriptions on file.REVIEW OF SYSTEMS:GENERAL: Negative for: Fever. + Fatigue.CARDIAC: See HPI above.HEENT: Negative for: Ringing in Ears, nosebleeds, bleeding gums. AdequatedentitionNECK: Negative for: Pain, stiffnessRESPIRATORY: Negative for: Blood in sputum, wheezing.GASTROINTESTINAL : Negative for: Trouble swallowing, blood in stoolMUSCULOSKELETAL: Negative for: Joint stiffness and painNEUROLOGIC: Negative for: Numbness, tremorsPSYCHIATRIC: Negative for: Anxiety, depressionSKIN: Negative for: Rashes, itchingHEMATOLOGICAL/LYMP HATIC: Negative for: Easy bruising, easy bleeding, painfullymph nodesI personally interviewed, confirmed and edited the above information ifobtained by others.PHYSICAL EXAMINATION:BP 162/82 Pulse 71 Resp 18 Ht 161.3 cm (5' 3.5ANDquot;) Wt (!) 145.2 kg(320 lb) SpO2 100% BMI 55.8 kg/j7Qtfygzv: Well appearing, in no acute distress. Morbid obesityNeuro: Oriented to person, place and time, alert, cooperative.Eyes: Extra ocular movements intact, pupils react to lightNeck: No jugular venous distention, no palpable thyromegaly.Heart: Regular rhythm, S1, S2 normal, no S3, no S4. No murmur.Lungs: Clear to auscultation bilaterally. Good respiratory effort.Abdomen: Soft, nontender, bowel sounds normal, no palpable hepatosplenomegalySkin: No clubbing, no cyanosis.Extremities: Normal pulses in distal lower extremities. Bilateral lowerextremity lymphedemaCARDIOVASCULAR MEDICINE TESTING:Echocardiogram: NoneHolter 12/29/16 unremarkableLexi scan 12/15/16 normalI have personally reviewed the above Cardiovascular Medicine Testing.IMPRESSION/PLAN:Rose Mary Cesar is a 61 year old female with history of morbid obesity,lymphedema, remote tobacco, obstructive sleep apnea on CPAP here to establishcardiovascular carePalpitations: She has significant caffeine intake which she only has recentlyreduced. I have asked her to further reduce her coffee intake to no more thanone 8 ounce cup of regular coffee per day with no other sources of caffeine. Ihave reinforced the low-sodium and low-fat diet. Her palpitations areassociated with shortness of breath and I would not be surprised if she hadsome degree of pulmonary hypertension given her obesity and obstructive sleepapnea. I will have her complete an echocardiogram. I requested that she makea concerted effort to lose significant weight.Obesity: Body mass index is 55.8 kg/(m2). Morbid. I have extensivelycounseled regarding weight loss including low fat, low sodium diet, increasingomega 3 rich fish intake with reduction in red meat intake with portion controlincluding multiple small meals over the course of the day instead of a fewheavy meals, less post dinner snacking, reduction in fried and fast food, andincrease in high fiber foods including fruit and vegetables.Disposition: Follow up in clinic in 2 months. Pending studies: Echocardiogram,weight loss, caffeine reductionA copy of this note will be provided to the requesting physician by way ofshared medical record and/or fax to requesting physicianCONTACT INFORMATION:Thank you for allowing us to assist in the care your patient. As always pleasedo not hesitate to contact us with further questions or concerns.Carl Ty M.D.Marcus DickinsonDepartment of Cardiovascular MedicineCincinnati Children'S Hospital [facility] Centerrt and [facility] Institute[address], [place] [address]Fxmxzl: [phone] Referring Provider: PEPE FERMIN [[id number]]Allergies As of Date: 01/26/2017(No Known Allergies)Date Reviewed: 01/26/2017Reviewed by: Mario Rodriguez (Rn) JOSH Awad - Fully AssessedReason for Visit: Shortness of Breath [227]Primary Visit Diagnosis:Essential hypertension [I10] Other Visit Diagnoses:Obesity, Class III, BMI 40-49.9 (morbid obesity) (HCC) [E66.01] Tobacco abuse [Z72.0] CHUCKIE (obstructive sleep apnea) [G47.33]Order(s):ECHO [604086] Order #: [id number]: 1 FUTUREProblem List As Of Date 01/26/2017 Noted Resolved Obesity, Class III, BMI >= 40 (morbid obesity) *INVALID FOR*Disposition: Return in about 2 months (around 03/28/2017).Follow-up and Disposition History RecordedEncounter Number: [id number] Status:Closed by CARL TY MD on 01/26/17 Normal [facility] PROGRESSon 01-23-2017 PROGRESS HNO ID: [id number] thor: Carl TySer: (none)Author Type: PhysicianType: Progress NotesFiled: 01/26/2017 10:54 AMNote Text:[facility] Department of Cardiovascular MedicineOUTPATIENT VISIT DATEAugust 2016OUTPATIENT VISIT TYPENEW CONSULTATIONPRNOVANT HEALTH FORSYTH MEDICAL CENTERRY CARE PHYSICIAN:Pepe Fermin, [id number] [facility] [address]SAFIRSTHE[facility] [address]Ibhtb: [phone]: [phone] COMPLAINT:Palpitations and shortness of breathHISTORY OF PRESENT ILLNESS:[place]bania Cesar is a 61 year old female who presents today to [facility]. History includes morbid obesity, lymphedema, remote tobacco,obstructive sleep apnea on CPAP. For the past approximately 2 years, thepatient palpitations associated with shortness of breath. She does notbelieve she hasn't increase in frequency of symptoms. She does note thatsymptoms occur randomly, both at rest and with exertion but mostly withexertion. There is no irregularity to her heart beat, but the heartbeatsdo feel more intense to her during these episodes. They're associatedwith shortness of breath she notes yesterday that her restaurant cookbroke his pelvis and she tried to lift and carry him and becamesignificantly short of breath during that time. She drinks up to 7 cupsof large coffees per day but has reduced that to 3 cups daily over thepast 2 weeks. She denies other stimulant sources including energy drinks,herbal supplements, and weight loss drugs. She does not drink soda on aregular basis. 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.She recently had an unremarkable Holter and stress test.Denies chest pain, orthopnea, cough, edema , PND, lightheadedness orsyncope.No past medical history on file.No past surgical history on file.Social HistorySubstance Use Topics- Smoking status: Former Smoker Packs/day: 2.00 Years: 30.00 Types: Cigarettes Quit date: 01/26/2006- Smokeless tobacco: Not on file- Alcohol use Yes Comment: OccasionalFAMILY HISTORY Aneurysm Mother Comment: Thracic Hypertension Mother Thyroid Mother Kidney Disease Father Diabetes Father Stroke Father Heart Brother Comment: Heart Disease Stroke Brother Hypertension BrotherALLERGIES:ALLERGIE SNo Known AllergiesMEDICATIONS:No prescriptions on file.REVIEW OF SYSTEMS:GENERAL: Negative for: Fever. + Fatigue.CARDIAC: See HPI above.HEENT: Negative for: Ringing in Ears, nosebleeds, bleeding gums. AdequatedentitionNECK: Negative for: Pain, stiffnessRESPIRATORY: Negative for: Blood in sputum, wheezing.GASTROINTESTINAL : Negative for: Trouble swallowing, blood in stoolMUSCULOSKELETAL: Negative for: Joint stiffness and painNEUROLOGIC: Negative for: Numbness, tremorsPSYCHIATRIC: Negative for: Anxiety, depressionSKIN: Negative for: Rashes, itchingHEMATOLOGICAL/LYMP HATIC: Negative for: Easy bruising, easy bleeding,painful lymph nodesI personally interviewed, confirmed and edited the above information ifobtained by others.PHYSICAL EXAMINATION:BP 162/82 Pulse 71 Resp 18 Ht 161.3 cm (5' 3.5 ) Wt (!) 145.2 kg(320 lb) SpO2 100% BMI 55.8 kg/n8Dbbrvlj: Well appearing, in no acute distress. Morbid obesityNeuro: Oriented to person, place and time, alert, cooperative.Eyes: Extra ocular movements intact, pupils react to lightNeck: No jugular venous distention, no palpable thyromegaly.Heart: Regular rhythm, S1, S2 normal, no S3, no S4. No murmur.Lungs: Clear to auscultation bilaterally. Good respiratory effort.Abdomen: Soft, nontender, bowel sounds normal, no palpablehepatosplenomegal ySkin: No clubbing, no cyanosis.Extremities: Normal pulses in distal lower extremities. Bilateral lowerextremity lymphedemaCARDIOVASCULAR MEDICINE TESTING:Echocardiogram: NoneHolter 12/29/16 unremarkableLexi scan 12/15/16 normalI have personally reviewed the above Cardiovascular Medicine Testing.IMPRESSION/PLAN:Rose Mary Cesar is a 61 year old female with history of morbid obesity,lymphedema, remote tobacco, obstructive sleep apnea on CPAP here toestablish cardiovascular carePalpitations: She has significant caffeine intake which she only hasrecently reduced. I have asked her to further reduce her coffee intake meño more than one 8 ounce cup of regular coffee per day with no othersources of caffeine. I have reinforced the low-sodium and low-fat diet.Her palpitations are associated with shortness of breath and I would notbe surprised if she had some degree of pulmonary hypertension given herobesity and obstructive sleep apnea. I will have her complete anechocardiogram. I requested that she make a concerted effort to losesignificant weight.Obesity: Body mass index is 55.8 kg/(m2). Morbid. I have extensivelycounseled regarding weight loss including low fat, low sodium diet,increasing omega 3 rich fish intake with reduction in red meat intake withportion control including multiple small meals over the course of the dayinstead of a few heavy meals, less post dinner snacking, reduction infried and fast food, and increase in high fiber foods including fruit andvegetables.Disposition : Follow up in clinic in 2 months. Pending studies:Echocardiogram, weight loss, caffeine reductionA copy of this note will be provided to the requesting physician by way ofshared medical record and/or fax to requesting physicianCONTACT INFORMATION:Thank you for allowing us to assist in the care your patient. As alwaysplease do not hesitate to contact us with further questions or concerns.Carl Ty M.D.[facility] MedicineC[facility] Centerrt and Vascular InstituteApril Ville [id number] Brent Servin.[place], [place] [address]Zbtddd: [phone] Normal [facility] Vital Signs Date Time Vital Sign Value Performing Clinician Facility 06-09-2023 14:00-0500 Body height 160.02 cm Abimbola Bran Other [facility] Other 06-09-2023 14:00-0500 Body mass index (BMI) [Ratio] 56.27 kg/m2 Abimbola Bran Other [facility] Other 06-09-2023 14:00-0500 Body temperature 98.6 [degF] Abimbola Bran Other [facility] Other 06-09-2023 14:00-0500 Body weight 144.11 kg Abimbola Bran Other [facility] Other 06-09-2023 14:00-0500 Diastolic blood pressure 72 mm[Hg] Abimbola Bran Other [facility] Other 06-09-2023 14:00-0500 SaO2% (BldA) [Mass fraction] 98 % Abimbola Bran Other [facility] Other 06-09-2023 14:00-0500 Systolic blood pressure 112 mm[Hg] Abimbola Bran Other [facility] Other 04-17-2023 12:27-0500 Body temperature 97.4 [degF] DO Abimbola Bran Work Phone: [facility] 04-17-2023 12:27-0500 Diastolic blood pressure 85 mm[Hg] DO Abimbola Bran Work Phone: [facility] 04-17-2023 12:27-0500 Heart rate 77 /min DO Abimbola Bran Work Phone: [facility] 04-17-2023 12:27-0500 Respiratory rate 18 /min DO Abimbola Bran Work Phone: [facility] 04-17-2023 12:27-0500 SaO2% (BldA) [Mass fraction] 98 % DO Abimbola Bran Work Phone: [facility] 04-17-2023 12:27-0500 Systolic blood pressure 131 mm[Hg] DO Abimbola Yina Work Phone: [facility] 04-17-2023 06:00-0500 Body weight 134 kg DO Abimbola Yina Work Phone: [facility] 04-16-2023 23:45-0500 Inhaled oxygen concentration 30 % DO Abimbola Yina Work Phone: [facility] 04-13-2023 15:46-0500 Body height 161.29 cm DO Abimbola Yina Work Phone: [facility] 04-10-2023 14:48-0400 Body temperature 97.5 [degF] DO Abimbola Yina Work Phone: [facility] 04-10-2023 14:48-0400 Diastolic blood pressure 85 mm[Hg] DO Abimbola Yina Work Phone: [facility] 04-10-2023 14:48-0400 Heart rate 86 /min DO Abimbola Yina Work Phone: [facility] 04-10-2023 14:48-0400 Respiratory rate 18 /min DO Abimbola Yina Work Phone: [facility] 04-10-2023 14:48-0400 SaO2% (BldA) [Mass fraction] 98 % DO Abimbola Yina Work Phone: [facility] 04-10-2023 14:48-0400 Systolic blood pressure 136 mm[Hg] DO Abimbola Yina Work Phone: [facility] 04-10-2023 10:11-0400 Body height 161.29 cm DO Abimbola Yina Work Phone: [facility] 04-10-2023 10:11-0400 Body weight 132.2 kg DO Abimbola Yina Work Phone: [facility] 04-07-2023 08:11-0400 Body temperature 97.1 [degF] DO Abimbola Yina Work Phone: [facility] 04-07-2023 08:11-0400 Diastolic blood pressure 95 mm[Hg] DO Abimbola Yina Work Phone: [facility] 04-07-2023 08:11-0400 Heart rate 86 /min DO Abimbola Yina Work Phone: [facility] 04-07-2023 08:11-0400 Respiratory rate 18 /min DO Abimbola Yina Work Phone: [facility] 04-07-2023 08:11-0400 SaO2% (BldA) [Mass fraction] 99 % DO Abimbola Yina Work Phone: [facility] 04-07-2023 08:11-0400 Systolic blood pressure 183 mm[Hg] DO Abimbola Yina Work Phone: [facility] 04-07-2023 08:08-0400 Body height 160.02 cm DO Abimbola Yina Work Phone: [facility] 04-07-2023 08:08-0400 Body weight 135.62 kg DO Abimbola Yina Work Phone: [facility] 02-24-2023 08:00-0400 Body height 160.02 cm Abimbola Bran Other [facility] Other 02-24-2023 08:00-0400 Body mass index (BMI) [Ratio] 54.02 kg/m2 Abimbolamirta Bran Other [employer] Other 02-24-2023 08:00-0400 Body weight 138.35 kg Abimbola Bran Other [facility] Other 02-24-2023 08:00-0400 Diastolic blood pressure 82 mm[Hg] Abimbola Bran Other [facility] Other 02-24-2023 08:00-0400 Respiratory rate 18 /min Abimbola Bran Other [facility] Other 02-24-2023 08:00-0400 SaO2% (BldA) [Mass fraction] 97 % Abimbolaconnor Bran Other [employer] Other 02-24-2023 08:00-0400 Systolic blood pressure 122 mm[Hg] Abimbola Bran Other [employer] Other 02-03-2023 10:36-0400 Body height 160.02 cm PHYSICIAN NO [facility] 02-03-2023 10:36-0400 Body mass index (BMI) [Ratio] 59.3 kg/m2 PHYSICIAN NO [facility] 02-03-2023 10:36-0400 Body weight 151.95 kg PHYSICIAN NO [facility] 02-03-2023 09:30-0400 Body temperature 97.3 [degF] PHYSICIAN NO [facility] 02-03-2023 09:30-0400 Diastolic blood pressure 79 mm[Hg] PHYSICIAN NO [facility] 02-03-2023 09:30-0400 Heart rate 76 /min PHYSICIAN NO [facility] 02-03-2023 09:30-0400 Respiratory rate 20 /min PHYSICIAN NO [facility] 02-03-2023 09:30-0400 Systolic blood pressure 175 mm[Hg] PHYSICIAN NO [facility] 01-19-2023 08:30-0400 Body height 160.02 cm Abimbola Bran Other [facility] Other 01-19-2023 08:30-0400 Body mass index (BMI) [Ratio] 59.42 kg/m2 Abimbola Bran Other [facility] Other 01-19-2023 08:30-0400 Body temperature 98.3 [degF] Abimbola Bran Other [facility] Other 01-19-2023 08:30-0400 Body weight 152.18 kg Abimbolaconnor Bran Other [facility] Other 01-19-2023 08:30-0400 Diastolic blood pressure 76 mm[Hg] Abimbolaconnor Bran Other [facility] Other 01-19-2023 08:30-0400 Respiratory rate 18 /min Abimbolaconnor Bran Other [facility] Other 01-19-2023 08:30-0400 SaO2% (BldA) [Mass fraction] 97 % Abimbolaconnor Bran Other [facility] Other 01-19-2023 08:30-0400 Systolic blood pressure 120 mm[Hg] Abimbola Bran Other [facility] Other 12-31-2022 15:03-0400 Diastolic blood pressure 76 mm[Hg] PHYSICIAN NO [facility] 12-31-2022 15:03-0400 Heart rate 86 /min PHYSICIAN NO [facility] 12-31-2022 15:03-0400 Respiratory rate 20 /min PHYSICIAN NO [facility] 12-31-2022 15:03-0400 SaO2% (BldA) [Mass fraction] 96 % PHYSICIAN NO [facility] 12-31-2022 15:03-0400 Systolic blood pressure 166 mm[Hg] PHYSICIAN NO [facility] 12-31-2022 11:29-0400 Body height 160.02 cm PHYSICIAN NO [facility] 12-31-2022 11:29-0400 Body temperature 97.4 [degF] PHYSICIAN NO [facility] 12-31-2022 11:29-0400 Body weight 145.14 kg PHYSICIAN NO [facility] 12-29-2022 13:45-0400 Body height 160.02 cm Laith Carlson Other [facility] Other 12-29-2022 13:45-0400 Body mass index (BMI) [Ratio] 56.68 kg/m2 Laith Carlson Other [facility] Other 12-29-2022 13:45-0400 Body temperature 98.4 [degF] Laith Carlson Other [facility] Other 12-29-2022 13:45-0400 Body weight 145.15 kg Laith Carlson Other [facility] Other 12-29-2022 13:45-0400 Diastolic blood pressure 78 mm[Hg] Laith Carlson Other [facility] Other 12-29-2022 13:45-0400 Systolic blood pressure 153 mm[Hg] Laith Carlson Other [employer] Other 12-14-2022 01:34-0400 Diastolic blood pressure 80 mm[Hg] PHYSICIAN NO [facility] 12-14-2022 01:34-0400 Heart rate 75 /min PHYSICIAN NO [facility] 12-14-2022 01:34-0400 Respiratory rate 18 /min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 antipyretic. Advised patient that health dept. will be in contact as results are reported to them. Advised patient that treatment of COVID is with viral supportive care. Bromfed as directed. Avoid additional OTC cough/cold medications while using Bromfedas it contains decongestant, antitussive, and antihistamine. Tylenol/Motrin as needed for body aches/fever. Increase fluids and rest. Encouraged use of cool mist humidifier. Follow-up with PCP to advise of positive result and further management. Immediate eval for SOB, difficulty, chest pain, fevers that do not break with antipyretic or any other concerning symptoms as reviewed on patient education handout. Patient verbalizes understanding and is agreeable to treatment plan. Patient left in stable condition May, Other Additional time spent conducting pre-visit phone call, screening for symptoms, instructions on social distancing, application and removal of PPE, and cleaning of examination room, equipment and supplies was preformed. Patient education given for testing methodology and results. Patient care instructions given in writting by [facility] Care At Home document [facility] [employer] Other evalupxast noteNo assessment information available [facility] Work Phone: evaluoiaev note* Diagnosis Onset Date Resolution Status Elevated blood pressure reading acute Inflammation chronic Leg ulcer, left chronic Lymphedema chronic Obese chronic Wound pain chronic [facility] Work Phone: evaluation note* Diagnosis Onset Date Resolution Status Elevated blood pressure reading acute Hyperkeratosis chronic Hyperpigmentation chronic Inflammation chronic Leg ulcer, left chronic Lymphedema chronic Nonadherence to medical treatment chronic Obese chronic Wound pain chronic [facility] Work Phone: evaluation noteNo InformationNortLehigh [facility] [address] [employer] Other [employer] note* Diagnosis Onset Date Resolution Status Elevated blood pressure reading acute Hyperkeratosis chronic Hyperpigmentation chronic Inflammation chronic Leg ulcer, left chronic Lymphedema chronic Nonadherence to medical treatment chronic Obese chronic Wound pain chronic Cellulitis of left leg acute Ulcer of right leg acute Leg ulcer, left chronic Lymphedema chronic [facility] Work Phone: evaluation note* Diagnosis Onset Date Resolution Status Cellulitis of left leg acute Ulcer of right leg acute Leg ulcer, left chronic Lymphedema chronic [facility] Work Phone: evaluqezgv note* Diagnosis Onset Date Resolution Status Cellulitis of left leg acute Ulcer of right leg acute Leg ulcer, left chronic Lymphedema chronic ALFREDO (acute kidney injury) ac nisqually Bilateral leg pain acute Bilateral lower leg cellulitis acute Cellulitis acute Hyponatremia acute Metabolic acidosis acute Ulcer of left lower leg acut e Ulcer of right leg acute UTI (urinary tract infection) acute Inflammation chronic Lymphedema chronic [facility] Work Phone: Evaluation note* Diagnosis Onset Date Resolution Status Cellulitis of left leg acute Ulcer of right leg acute Leg ulcer, left chronic Lymphedema chronic Acute respiratory acidosis a cute ALFREDO (acute kidney injury) ac nisqually Bilateral lower leg cellulitis acute Cellulitis acute CHF (congestive heart failure) acute Elevated liver enzymes acute Hypokalemia acute Hyponatremia acute Hypophosphatemia acute Hypoxia acute Infected wound acute Metabolic acidosis acute Superficial vein thrombosis acute Ulcer of left lower leg acut e Ulcer of right leg acute Inflammation chronic Lymphedema chronic Obese chronic [facility] [email or web address] Work Phone: History general Narrative - Reported* Type Description Date Medical History CHUCKIE Medical History varicose veins Surgical History No know Surgical history Hospitalization History elevated BS, cellulitis [employer] Other Hisdvtc general Narrative - Reported* Type Description Date Medical History CHUCKIE Medical History varicose veins Medical History cellulitis Medical History lymphedema Surgical History No know Surgical history Hospitalization History elevated BS, cellulitis [employer] Other Hiscqrr general Narrative - Reported* Type Description Date Medical History CHUCKIE Medical History varicose veins Medical History cellulitis Medical History lymphedema Surgical History No Surgical history information Hospitalization History see above Hospitalization History BLE--cellulitis, lymphed ace [facility] Other Hospital Discharge instructions Additional Instructions Have IV antibiotics twice daily at an infusion center for 1 week.[facility] [email or web address] Work Phone: Hospital Discharge instructions Additional Instructions If your symptoms return/worsen or you develop any further concerns or symptoms please see your doctor or return to the emergency department immediately. It is imperative that you follow-up with wound care for continued care of your lower extremity chronic wound. He was follow-up with your primary care provider as well for further care. Continue the antibiotics you are currently on as directed.[facility] [email or web address] Work Phone: Hospital Discharge instructions Additional Instructions Follow-up with your primary care doctor Return to ED if develop worsening symptoms or concernsH[facility]ing [facility] [email or web address] Work Phone: Summary Purpose Family History Relationship Condition Age at Onset Recorded Date/T shira father Heart disease Unknown Hypertension Unknown Diabetes mellitus Unknown Not Specified Hypertension Unknown Advance Directives Advance Directive Response Recorded Date/ Time Advance Directives No May 6:34pm Advance Directive Response Recorded Date/ Time Advance Directives No May 5:34pm Chief Complaint and Reason for Visit Chief Complaint left leg pain Chief Complaint left leg pain Left Leg Cellulitis Open Wound bilateral lymphedema lt leg redness Cellulitis Reason for Visit Elevated blood press ure reading Inflammation Leg ulcer, left Lymphedema Obese Wound pain Chief Complaint left leg pain Left Leg Cellulitis lt leg redness Cellulitis Open Wound bilateral lymphedema L leg swelling, redness, hx cellulitis Reason for Visit Elevated blood press ure reading Hyperkeratosis Hyperpigmentation Inflammation Leg ulcer, left Lymphedema Nonadherence to medical treatment Obese Wound pain Chief Complaint left leg pain Left Leg Cellulitis lt leg redness Cellulitis Open Wound L leg swelling, redness, hx cellulitis bilateral lymphedema cellulitis left lower extremity L Leg Swelling/Redness Dx Cellulitis Reason for Visit Elevated blood press ure reading Hyperkeratosis Hyperpigmentation Inflammation Leg ulcer, left Lymphedema Nonadherence to medical treatment Obese Wound pain Chief Complaint Open Wound L leg swelling, redness, hx cellulitis cellulitis left lower extremity L Leg Swelling/Redness Dx Cellulitis bilateral lymphedema leg wounds BLE WOUNDS Infusion/Dr Blank/ sugical consult Reason for Visit Elevated blood press ure reading Hyperkeratosis Hyperpigmentation Inflammation Leg ulcer, left Lymphedema Nonadherence to medical treatment Obese Wound pain Cellulitis of left leg Ulcer of right leg Leg ulcer, left Lymphedema Chief Complaint cellulitis left lowe r extremity L Leg Swelling/Redness Dx Cellulitis bilateral lymphedema leg wounds BLE WOUNDS Open Wound Reason for Visit Cellulitis of left l eg Ulcer of right leg Leg ulcer, left Lymphedema Chief Complaint BLE WOUNDS Open Wound bi leg pain Reason for Visit Cellulitis of left l eg Ulcer of right leg Leg ulcer, left Lymphedema Chief Complaint BLE WOUNDS Open Wound bi leg pain bilateral leg pain Reason for Visit Cellulitis of left l eg Ulcer of right leg Leg ulcer, left Lymphedema ALFREDO (acute kidney injury) Bilateral leg pain Bilateral lower leg cellulitis Cellulitis Hyponatremia Metabolic acidosis Ulcer of left lower leg Ulcer of right leg UTI (urinary tract infection) Inflammation Lymphedema Chief Complaint BLE WOUNDS Open Wound bi leg pain bilateral leg pain Reason for Visit Cellulitis of left l eg Ulcer of right leg Leg ulcer, left Lymphedema Acute respiratory acidosis ALFREDO (acute kidney injury) Bilateral lower leg cellulitis Cellulitis CHF (congestive heart failure) Elevated liver enzymes Hypokalemia Hyponatremia Hypophosphatemia Hypoxia Infected wound Metabolic acidosis Superficial vein thrombosis Ulcer of left lower leg Ulcer of right leg Inflammation Lymphedema Obese Additional Source Comments INFORMATION SOURCE (unrecogn ized section and content) DATE CREATED AUTHOR 12/02/2017 [facility] DATE CREATED AUTHOR AUTHOR'S APURVA ATION 04/18/2023 [facility] REASON FOR VISIT (unrecogniz ed section and content) #12 JACKSON MALIBU, LOSS OF TAS TE, CONGESTION, FEVER, COUGHFR-ERNo InformationREFILLNo InformationEST PCPNo Informationchancre sore apptDISCUSS [id number] up from rehab needs to go over meds Care Teams (unrecognized sec tion and content) Team Status: Active Member Role Status Dianna Bran , DO Primary Care Provider Active Team Status: Inactive Member Role Status Dates Reji Rangel , Attending Provider Active PHYSICIAN NO FAMILY Primary Care Provider Active Team Status: Inactive Member Role Status Dates PHYSICIAN NO FAMILY Primary Care Provider Active Beth Jimenez APRN Active Evelyn Leon APRN Attending Provider Active Team Status: Inactive Member Role Status Dates PHYSICIAN NO FAMILY Primary Care Provider Active Laith Warner MD Emergency Provider Active Team Status: Inactive Member Role Status Dianna Bran DO Primary Care Provider Active Laith Carlson MD Attending Provider Active Team Status: Inactive Member Role Status Dianna Bran DO Primary Care Provider Active Chon Valdez , DO Emergency Provider Active Team Status: Inactive Member Role Status Dates PHYSICIAN NO FAMILY Primary Care Provider Active Laith Warner MD Attending Provider Active Team Status: Inactive Member Role Status Dianna Valdez , DO Emergency Provider Active Abimbola Bran , DO Primary Care Provider Active Team Status: Active Member Role Status Dianna Bran , DO Primary Care Provider Active Albino Saxena MD Attending Provider Active Team Status: Active Member Role Status Dianna Rangel , Attending Provider Active PHYSICIAN NO FAMILY Primary Care Provider Active Team Status: Inactive Member Role Status Dates PHYSICIAN NO FAMILY Primary Care Provider Active Gerald Theodore PA-C Emergency Provider Active Team Status: Active Member Role Status Dates PHYSICIAN NO FAMILY Primary Care Provider Active Beth Jimenez APRN Active Evelyn Leon APRN Attending Provider Active Team Status: Inactive Member Role Status Dates PHYSICIAN NO FAMILY Primary Care Provider Active Jhonatan Crowell , DO Emergency Provider Active Team Status: Inactive Member Role Status Dates PHYSICIAN NO FAMILY Primary Care Provider Active Jhonatan Crowell , DO Attending Provider Active Team Status: Inactive Member Role Status Dates PHYSICIAN NO FAMILY Primary Care Provider Active Gerald Theodore PA-C Attending Provider Active Team Status: Active Member Role Status Dates PHYSICIAN NO FAMILY Primary Care Provider Active Team Status: Active Member Role Status Dates PHYSICIAN NO FAMILY Primary Care Provider Active Beth Jimenez APRN Attending Provider Active Team Status: Active Member Role Status Dates PHYSICIAN NO FAMILY Primary Care Provider Active Jhonatan Crowell , DO Attending Provider Active Team Status: Active Member Role Status Dates PHYSICIAN NO FAMILY Primary Care Provider Active Gerald Theodore PA-C Attending Provider Active Team Status: Inactive Member Role Status Dates Abimbola Bran , DO Primary Care Provider Active Albino Saxena MD Attending Provider Active Team Status: Inactive Member Role Status Dates Jhonatan Crowell , DO Emergency Provider Active Abimbola Bran , DO Primary Care Provider Active Team Status: Active Member Role Status Dates Abimbola Bran , DO Primary Care Provider Active Sarah Davey [facility] Emergency Provider Active Neeraj Farrell MD Admit Provider, Attending Provider Active Team Status: Inactive Member Role Status Dates Abimbola Bran , DO Primary Care Provider Active Sarah Davey [facility]- Emergency Provider Active Neeraj Farrell MD Admit Provider Active Selvin Bey MD Attending Provider Active Laith Carlson MD Other Provider Active Goals (unrecognized section and content) Goals may be documented in a n alternate section FOR RECORDS PERTAINING TO PATIENTS WHO ARE OR HAVE BEEN ENROLLED IN A CHEMICAL DEPENDENCY/SUBSTANCEABUSE PROGRAM, SOME INFORMATION MAY BE OMITTED. This clinical summary was aggregated from multiple sources. Caution should be exercised in using it in the provision of clinical care. This summary normalizes information from multiple sources, and as a consequence, information in this document may materially change the coding, format and clinical context of patient data. In addition, data may be omitted in some cases. CLINICAL DECISIONS SHOULD BE BASED ON THE PRIMARY CLINICAL RECORDS. [employer] [facility]. provides no warranty or guarantee of the accuracy or completeness of information in this document.
== END 2023-06-18 09:12 | disposition home or self-care (01) ==
LOC: WC 09:11
PROVIDERS: PCP Radiology Diagnostic Radiology; Visit Provider Physician Assistant
DX: R60.9 Edema, unspecified (principal); L97.418 Non-pressure chronic ulcer of right heel and midfoot with other specified severity; L99 Other disorders of skin and subcutaneous tissue in diseases classified elsewhere
CPT/HCPCS: 73590; 73630; G0463

== ENCOUNTER 2023-06-24 09:20 | Outpatient (RCR) | payer MEDICARE, OTHER, SELFPAY | END 2023-08-01 15:20 | disposition home or self-care (01) | LOC: OT 09:20 | PROVIDERS: PCP Radiology Diagnostic Radiology; Visit Provider Physician Assistant | DX: I89.0 Lymphedema, not elsewhere classified (principal); L97.929 Non-pressure chronic ulcer of unspecified part of left lower leg with unspecified severity; L97.919 Non-pressure chronic ulcer of unspecified part of right lower leg with unspecified severity | CPT/HCPCS: 97140; 97167; 97535 ==

== ENCOUNTER 2023-07-14 14:02 | Outpatient (OUT) | payer MEDICARE, OTHER, SELFPAY | END 2023-07-14 14:03 | disposition home or self-care (01) | LOC: WC 14:03 | PROVIDERS: PCP Radiology Diagnostic Radiology; Visit Provider Podiatrist Foot & Ankle Surgery | DX: L97.418 Non-pressure chronic ulcer of right heel and midfoot with other specified severity (principal); L99 Other disorders of skin and subcutaneous tissue in diseases classified elsewhere | CPT/HCPCS: G0463 ==

== ENCOUNTER 2023-08-03 23:50 | Inpatient (IN) | payer MEDICARE, OTHER, SELFPAY ==
[2023-08-03 23:52] VITALS: BP 123/77; PULSE 114; RESP 22; TEMP 37.2; O2SAT 97; BMI 49.9
[2023-08-03 23:57] VITALS: BP 123/70
[2023-08-04] VITALS (43 sets, daily range): BP systolic 102–137; BP diastolic 65–84; PULSE 79–117; RESP 12–35; TEMP 36.9–38.5; O2SAT 85–97; BMI 51.7
--- NOTE | 2023-08-04 | ECG_ITS ---
[facility] Test Date: 2023-08-04 Pat Name: ALBANIA CESAR Department: Room: - Gender: Female [employer]: : [id number] Requested By: Order Number: [id number] Reading MD: TREVIN ADAMSON Measurements Intervals [place] Rate: 109 P: 52 RI: 162 QRS: 71 QRSD: 86 T: 51 QT: 328 QTc: 392 Interpretive Statements 1120 Sinus tachycardia 6220 Possible left atrial enlargement 9140 abnormal rhythm ECG No previous ECG available for comparison Electronically Signed On 08-04-2023 6:46:59 EST by TREVIN ADAMSON
--- OUTSIDE RECORDS SUMMARY | 2023-08-04 00:07 | XMS_ITS | CCD ---
Author Name Unknown Address [address] [place] [address] Organization [facility] Care Team Providers Care Adjuster Arbitrator Name Role Phone CARL TY Unavailable Unavailable PEPE FERMIN Unavailable Unavailab Shayla Bolanos Unavailable NO FAMILY, PHYSICIAN Primary Care Provider Unava ilable ANTHONY Theodore Emergency Provider [phone] ANTHONY Theodore Attending Provider [phone] BRITNEY Jimenez Attending Provider [phone] DO Reji Rangel Attending Provider DO Jhonatan Crowell Emergency Provider DO Jhonatan Crowell Attending Provider DO Jhonatan Crowell Attending Provider BRITNEY Leon Attending Provider DO Reji Rangel Attending Provider MD Laith Warner Emergency Provider DO Reji Rangel Attending Provider MD Laith Warner Attending Provider DO Chon Valdez Emergency Provider DO Abimbola Bran Primary Care Provider Abimbola Bran Unavailable Laith Carlson Unavailable NO FAMILY, PHYSICIAN Primary Care Provider Unava ilable DO Reji Rangel Attending Provider [phone] MD Laith Carlson Attending Provider MD Albino Saxena Attending Provider [phone] NO FAMILY, PHYSICIAN Primary Care Provider Unava ilable Bran, DO Abimbola A Primary Care Provider DO Jhonatan Crowell [facility] Emergency Provider MD Neeraj Farrell Admit Provider MD Neeraj Farrell Attending Provider Yina DO Abimbola A Primary Care Provider MD Laith Carlson Attending Provider [phone] MD Albino Saxena Attending Provider DO Jhonatan Crowell [facility] Emergency Provider [phone] MD Neeraj Farrell Admit Provider MD Selvin Bey Attending Provider MD Laith Carlson Other Provider Bran, Abimbola A Primary Care Unavailable Albino Saxena Attending Unavailable Albino Saxena Admitting Unavailable Laith Carlson Admitting Unavailable Bran, Abimbola A Primary Care Unavailable Laith Cralson Attending Unavailable Laith Warner Attending Unavailable Laith Warner Admitting Unavailable NO FAMILY, PHYSICIAN Primary Care Unavailable NO FAMILY, PHYSICIAN Primary Care Unavailable Jhonatan Crowell Attending Unavailable Jhonatan Crowell M Admitting Unavailable NO FAMILY, PHYSICIAN Primary Care Unavailable Reji Rangel Attending Unavailable Reji Rangel Admitting Unavailable ObarieleyEvelyn sommer Attending Unavailable Evelyn Leon L Admitting Unavailable NO FAMILY, PHYSICIAN Primary Care Unavailable Jhonatan Crowell Attending Unavailable Jhonatan Crowell M Admitting Unavailable Bran, Abimbola A Primary Care Unavailable Bran, Abimbola A Primary Care Unavailable Chon Valdez Attending Unavailable Chon Valdez Admitting Unavailable Laith Warner Attending Unavailable Laith Warner Admitting Unavailable NO FAMILY, PHYSICIAN Primary Care Unavailable NO FAMILY, PHYSICIAN Primary Care Unavailable Jhonatan Crowell Attending Unavailable Jhonatan Crowell Admitting Unavailable Gerald Theodore Attending Unavailable Gerald Theodore Admitting Unavailable NO FAMILY, PHYSICIAN Primary Care Unavailable Laith Carlson Unavailable Selvin Bey Attending Unavailable Neeraj Farrell Admitting Unavailable Abimbola Bran Primary Care Unavailable Abimbola Bran Primary Care Unavailable Chon Valdez Attending Unavailable Chon Valdez Admitting Unavailable Gerald Theodore Attending Unavailable Gerald Theodore Admitting Unavailable NO FAMILY, PHYSICIAN Primary Care Unavailable Medications Current Medications Medication Drug Class(es) Dates Sig (Normalized) Sig (Original) acetaminophen 325 mg oral tablet (6 sources) Start: 04-16-2023 take 2 tablets by mouth every eight hours Acetaminophen 325 MG 2 tablet as needed Orally every 8 hrs for 30 days [facility] Apr, Active acetaminophen 325 mg / oxyCODONE [...] Laxative Start: 04-17-2023 Bisacodyl Active 10 MG ME Daily 0 April 17, 2023 12:00am brompheniramine maleate 0.4 mg/ml / dextromethorphan hydrobromide 2 mg/ml / pseudoephedrine hydrochloride 6 mg/ml oral solution (2 sources) alpha-Adrenergic Agonist, Uncompetitive M-[id number] e Receptor Antagonist, Sigma-1 Agonist Start: 06-06-2021 take 10 mL by mouth every six hours carvedilol 3.125 mg oral tablet (4 sources) alpha-Adrenergic Alec, beta-Adrenergic Alec take 1 tablet by mouth every twelve hours Carvedilol 3.125 MG 1 tablet with food Orally Twice a day for 90 days Active celecoxib 100 mg oral capsule (2 sources) Nonsteroidal Anti-inflammatory Drug Start: 04-16-2023 take 1 capsule by mouth every twenty-four hours Celecoxib 100 MG 1 capsule with food Orally Once a day [facility] Apr, Active Start: 04-16-2023 take 100 mg by mouth twice ebenezer ly Celecoxib Active 100 MG PO Twice daily 10 April 16, 2023 12:00am cephalexin 500 mg oral capsule (1 source) Cephalosporin Antibacterial take 1 capsule by mouth every eight hours 0.4 ml enoxaparin sodium 100 mg/ml prefilled syringe (2 sources) Low Molecular Weight Heparin Start: 04-16-20 Enoxaparin Sodium 40 MG/0.4ML 0.3 mL Injection Once a day [facility] Apr, Active ertapenem 1000 mg injection (2 sources) Penem Antibacterial Start: 04-16-20 take 1 g intravenously every twenty-four hours Ertapenem Active 1 GM IV Q24H April 16, 2023 12:00am Ertapenem Sodium 1 GM as directed Injection Active furosemide 40 mg oral tablet (4 sources) Loop Diuretic take 1 tablet by mouth every twenty-four hours Furosemide 40 MG 1 tablet Orally Once a day for 90 days Active meloxicam 7.5 mg oral tablet (4 sources) Nonsteroidal Anti-inflammatory Drug take 1 tablet by mouth every twelve hours Meloxicam 7.5 MG 1 tablet Orally twice a day for 90 days Active oxyCODONE hydrochloride 5 mg oral tablet (6 sources) Opioid Agonist Start: 07-07-19 take 1 tablet by mouth every eight hours oxyCODONE HCl 5 MG 1 tablet as needed Orally every 8 hours for 14 days Jun, Active Start: 06-09-2023 take 1 tablet by estuardo th every four hours oxyCODONE HCl 5 MG 1 tablet as needed Orally every 4 hrs for 14 days [facility] Jun, Active Start: 04-16-2023 take 1 tablet by estuardo th every four hours oxyCODONE HCl 5 MG 1 tablet as needed Orally every 4 hrs [facility] Apr, Active Start: 04-16-2023 take 2.5 mg by mouth every four hours Oxycodone Active 2.5 MG PO Every 4 hours 10 5 April 16, 2023 polyethylene glycol 3350 89159 mg powder for oral solution (1 source) Osmotic Laxative Start: 04-17-2023 Polyethylene Glycol 3350 (Healthylax) 17 gram Powder In Packet Active 17 GM PO Daily April 17, 2023 9:43am pregabalin 75 mg oral capsule (6 sources) Start: 06-09-2023 take 1 capsule by mouth every eight hours Pregabalin 75 MG 1 capsule Orally three times a day for 90 days [facility] Jun, Active Start: 04-16-2023 take 1 capsule by mo ut every twelve hours Pregabalin 50 MG 1 capsule Orally Twice a day [facility] Apr, Active Sennosides (Senokot) 8.6 mg tablet [...] inophen Discontinued 1 TAB PO Q6H 10 3 December 14, 2022 April 07, 2023 7:11am [...] Hyclate Discontinued 100 MG PO Twice daily 28 14 November 30, 2022 11:00pm February 03, 2023 8:37am Start: 11-06-2022 End: 11-13-2022 take 100 mg by mouth twice daily Doxycycline Hyclate Discontinued 100 MG PO Twice daily 14 7 November 05, 2022 11:00pm November 13, 2022 1:26pm gabapentin 600 mg oral tablet (4 sources) Anti-epileptic Agent Start: 04-07-2023 End: 04-17-2023 take 600 mg by mouth three times daily Gabapentin Discontinued 600 MG PO Three times daily April 06, 2023 11:00pm April 17, 2023 11:29am Start: 02-24-2023 take 1 capsule by mo [facility] every eight hours Gabapentin 300 MG 1 [...] Active Problems Problem Classification Problem Date Documented Date Episodic/Chronic Chronic ulcer of skin (20 sources) Ulcer of lower extremity; Translations: [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] Onset: 3 10-21-2022 Chronic Congestive heart failure; nonhypertensive (8 sources) Congestive heart failure; Translations: [Heart failure, unspecified] Onset: 3 04-11-2023 Chronic Immunizations and screening for infectious disease (2 [...] [Pain in right leg] 04-07-2023 Episodic Other diseases of veins and lymphatics (9 sources) Lymphedema; Translations: [Lymphedema, not elsewhere classified] 10-21-2022 Chronic Other diseases of veins and lymphatics (15 sources) Lymphedema, not elsewhere classified; Translations: [Other lymphedema] Onset: 3 10-30-2022 Chronic Other diseases of veins and lymphatics (4 sources) Lymphedema of lower extremity; Translations: [Lymphedema, not elsewhere classified] Chronic Other diseases of veins and lymphatics (17 sources) Venous insufficiency (chronic) (peripheral); Translations: [Venous insufficiency (chronic) (peripheral)] Episodic Other injuries and conditions due to external causes (1 source) Local infection of wound; Translations: [Other injury of unspecified body region, initial encounter] 04-10-2023 Episodic Other liver diseases (1 source) Elevated liver enzymes level; Translations: [Abnormal levels of other serum enzymes] 04-10-2023 Episodic Other lower respiratory disease (1 source) Hypoxia; Translations: [Hypoxemia] 04-11-2023 Episodic Other nutritional; endocrine; and metabolic disorders [...] pigmentation, unspecified; Translations: [Dyschromia, unspecified] 11-24-2022 Episodic Residual codes; unclassified (18 sources) Obstructive sleep apnea syndrome; Translations: [Obstructive sleep apnea (adult) (pediatric)] Chronic Residual codes; unclassified (2 sources) Obstructive sleep apnea (adult) (pediatric); Translations: [Obstructive sleep apnea (adult) (pediatric)] Onset: 3 Chronic Residual codes; unclassified (12 sources) Noncompliance with medication regimen; Translations: [Nonadherence to medical treatment] 11-24-2022 Episodic Unclassified (16 sources) Inflammatory disorder; Translations: [...] syndrome; Translations: [Acute kidney failure, unspecified] Onset: 04-10-2023 04-10-2023 Episodic Fluid and electrolyte disorders (12 sources) Hyponatremia; Translations: [Hypo-osmolality and hyponatremia] Onset: 04-10-2023 04-10-2023 Episodic Other connective tissue disease (2 sources) Pain in right leg; Translations: [Pain in limb] Onset: 04-10-2023 04-10-2023 Episodic Other connective tissue disease (1 source) Pain in left leg; Translations: [Pain in left leg] Onset: 04-10-2023 Episodic Other connective tissue disease (1 source) Pain in right lower limb; Translations: [Pain in right leg] Onset: 12-31-2022 Episodic Other connective tissue disease (1 source) Pain in left lower limb; Translations: [Pain in left leg] Onset: 12-01-2022 Episodic Other injuries and conditions due to external causes (2 sources) Other injury of unspecified body region, initial encounter; Translations: [Posttraumatic wound infection not elsewhere classified] Onset: 04-10-2023 04-17-2023 Episodic Other liver diseases (2 sources) Abnormal levels of other serum enzymes; Translations: [Other nonspecific abnormal serum enzyme levels] Onset: 04-10-2023 04-17-2023 Episodic Other lower respiratory disease (2 sources) Hypoxemia; Translations: [Hypoxemia] Onset: 04-10-2023 04-17-2023 Episodic Phlebitis; thrombophlebitis and thromboembolism (3 sources) Superficial vein thrombosis; Translations: [Acute embolism and thrombosis of other specified veins] Onset: 04-10-2023 04-14-2023 Episodic Respiratory failure; insufficiency; arrest (adult) (3 sources) Acute respiratory acidosis; Translations: [Acute respiratory failure with hypercapnia] Onset: 04-10-2023 04-12-2023 Episodic Skin and subcutaneous tissue infections (20 sources) Cellulitis of lower limb; Translations: [Cellulitis of left lower limb] Onset: 04-10-2023 10-12-2022 Episodic Viral infection (1 source) COVID-19 Onset: 06-06-2021 Resolved: 06-06-2021 Results Test Name Value Interpretation Reference Range Facility Activated partial thrombopla stin time (aPTT) in platelet poor plasma by coagulation aOrdered By: Laith Carlson on 04-15-2023 aPTT Coag (PPP) [Time] 32.5 s 25.1-36.5 [facility] Comment on above: A hematocrit value g reater than 55% may lead to inaccurate results in coagulation testing. Patients having hematocrit values >55% require a special collection tube for coagulation studies. Please contact the laboratory at [phone] for redraw instructions. Alanine aminotransferase [En zymatic activity/volume] in Serum or PlasmaOrdered By: Selvin Bey on 04-15-2023 ALT [Catalytic activity/Vol] 118 U/L 7-52 [facility] Albumin [Mass/volume] in Ser um or Plasma by Bromocresol green (BCG) dye binding methoOrdered By: Selvin Bey on 04-15-2023 Albumin BCG dye [Mass/Vol] 3.3 g/dL 3.5-5.7 [facility] Alkaline phosphatase [Enzyma tic activity/volume] in Serum or PlasmaOrdered By: Selvin Bey on 04-15-2023 ALP [Catalytic activity/Vol] 77 U/L 34-104 [facility] Aspartate aminotransferase [ Enzymatic activity/volume] in Serum or PlasmaOrdered By: Selvin Bey on 04-15-2023 AST [Catalytic activity/Vol] 48 U/L 13-39 [facility] Bilirubin.direct [Mass/volum e] in Serum or PlasmaOrdered By: Selvin Bey on 04-15-2023 Bilirubin.direct [Mass/Vol] 0.10 mg/dL 0.03-0.18 [facility] Bilirubin.total [Mass/volume ] in Serum or PlasmaOrdered By: Selvin Bey on 04-15-2023 Bilirubin [Mass/Vol] 0.5 mg/dL 0.3-1.0 [facility] C reactive protein [Mass/vol ume] in Serum or PlasmaOrdered By: Laith Carlson on 04-15-2023 CRP [Mass/Vol] 3.1 mg/dL 0.0-0.5 [facility] C-Reactive Proteinon 023 C-Reactive Protein 3.1 mg/dL High 0.0-0.5 [facility] Comment on above: Result Comment: PERF ORMED BY: [place] [address] PATHOLOGIST ARRESTING GEAR OPERATOR IAN ACE M.D. Performed By: #### C UBLD, CMP, CBC #### [facility] [address] [place] [address] Globulin Calc (S) [Mass/Vol] Ordered By: Selvin Bey on 04-15-2023 Globulin (S) [Mass/Vol] 4.3 g/dL [facility] Hepatic Panelon 04-15-2023 Albumin [Mass/Vol] 3.3 g/dL Low 3.5-5.7 [facility] Comment on above: Performed By: #### C UBLD, CMP, CBC #### [facility] [address] Albumin/Globulin [Mass ratio] 0.8 {ratio} Normal [facility] Comment on above: Performed By: #### C UBLD, CMP, CBC #### [address] ALP [Catalytic activity/Vol] 77 U/L Normal 34-104 [facility] Comment on above: Performed By: #### C UBLD, CMP, CBC #### [address] ALT [Catalytic activity/Vol] 118 U/L High 7-52 [facility] Comment on above: Performed By: #### C UBLD, CMP, CBC #### [address] Aspartate Amino Transferase Normal 13-39 [facility] Comment on above: Result Comment: Spec imen hemolyzed, redraw requested Performed By: #### C UBLD, CMP, CBC #### [address] Bilirubin [Mass/Vol] 0.5 mg/dL Normal 0.3-1.0 [facility] Comment on above: Performed By: #### C UBLD, CMP, CBC #### [address] Bilirubin,Direct Normal 0.03-0.18 [facility] Comment on above: Result Comment: Spec imen hemolyzed, redraw requested Performed By: #### C UBLD, CMP, CBC #### [address] Bilirubin,Indirect Not performed Normal [facility] Comment on above: Performed By: #### C UBLD, CMP, CBC #### [address] Globulin (S) [Mass/Vol] 4.3 g/dL Normal [facility] Comment on above: Performed By: #### C UBLD, CMP, CBC #### [address] Protein [Mass/Vol] 7.6 g/dL Normal 6.4-8.9 [facility] Comment on above: Performed By: #### C UBPREMA, CMP, CBC #### [facility] [address] [place] [id number] [facility] INR in Platelet poor plasma by Coagulation assayOrdered By: Laith Carlson on 04-15-2023 INR Coag (PPP) [Relative time] 1.0 {INR} [facility] Comment on above: INR Therapeutic Rang [...] Coag (Bld) [Time] 32.5 s Normal 25.1-36.5 [facility] Comment on above: Result Comment: A he matocrit value greater than 55% may lead to inaccurate results in coagulation testing. Patients having hematocrit values >55% require a special collection tube for coagulation studies. Please contact the laboratory at [phone] for redraw instructions. PERFORMED BY: [place] [address] PATHOLOGIST ARRESTING GEAR OPERATOR IAN ACE M.D. Performed By: #### C GIORGI, ALEXX, CBC #### [facility] [address] [place] [address] [facility] Phosphate [Mass/volume] in S marivel or PlasmaOrdered By: Selvin Bey on 04-15-2023 Phosphate [Mass/Vol] 3.2 mg/dL 2.5-4.5 [facility] Phosphoruson 04-15-2023 Phosphate [Mass/Vol] 3.2 mg/dL Normal 2.5-4.5 [facility] Comment on above: Result Comment: PERF ORMED BY: [place] [address] PATHOLOGIST ARRESTING GEAR OPERATOR IAN ACE M.D. Performed By: #### C UBLD, CMP, CBC #### [facility] [address] [place] [address] [facility] Protein [Mass/volume] in Ser um or PlasmaOrdered By: Selvin Bey on 04-15-2023 Protein [Mass/Vol] 7.6 g/dL 6.4-8.9 [facility] Prothrombin Time INRon 04-15 INR Coag (PPP) [Relative time] 1.0 {INR} Normal [facility] Comment on above: Result Comment: INR [...] 3 - 4.5 Performed By: #### C UBLD, CMP, CBC #### [facility] [address] [place] [id number] [facility] PT Coag (PPP) [Time] 11.9 s Normal 9.0-12.9 [facility] Comment on above: Result Comment: A he matocrit value greater than 55% may lead to inaccurate results in coagulation testing. Patients having hematocrit values >55% require a special collection tube for coagulation studies. Please contact the laboratory at [phone] for redraw instructions. Performed By: #### C UBLD, CMP, CBC #### [facility] [address] [place] [address] [facility] Prothrombin time (PT)Ordered By: Laith Carlson on 04-15-2023 PT Coag (PPP) [Time] 11.9 s 9.0-12.9 [facility] Comment on above: A hematocrit value g reater than 55% may lead to inaccurate results in coagulation testing. Patients having hematocrit values >55% require a special collection tube for coagulation studies. Please contact the laboratory at [phone] for redraw instructions. Redraw Renaldo 04-15-2023 AST [Catalytic activity/Vol] 48 U/L High 13-39 [facility] Comment on above: Result Comment: PERF ORMED BY: [place] [address] PATHOLOGIST ARRESTING GEAR OPERATOR IAN ACE M.D. Performed By: #### C UBLD, CMP, CBC #### [facility] [address] [place] [address] Redraw Bilirubin,Directon Redraw Bilirubin,Direct 0.10 mg/dL Normal 0.03-0.18 [facility] Comment on above: Performed By: #### R EDRAW AST, REDRAW DBIL #### [facility] [address] [place] [address] Serum or plasma albumin/glob ulin mass ratioOrdered By: Selvin Bey on 04-15-2023 Albumin/Globulin [Mass ratio] 0.8 {ratio} [facility] Serum or plasma non-glucuron idated bilirubin measurement (mass/volume)Ordered By: Selvin Bey on 04-15-2023 Bilirubin.indirect [Mass/Vol] TNP [facility] Comment on above: Test not performed US abdomen limitedon 023 US abdomen limited [facility] Main [place] [address] [place] [address] Ultrasound Report Signed Patient: [place]ia Cesar MR#: [id number] : 1955 Acct:[id number] Age/Sex: 67 / F ADM Date: 04/10/23 Loc: Room: [address] [place] [address] Type: ADM IN Attending Dr: Selvin Bey [...] Padmini Bethea M.D.04/15/2023 10:01 AM Dictation Location: [place] [address] Tech: Elyse Hart Transcribed By: MARIA VICTORIA 04/15/23 1001 Dictated By: Padmini Bethea MD 04/15/23 0959 Signed By: 04/15/23 1001 Normal [facility] Anisocytosis LM Ql (Bld)Orde red By: Selvin Bey on 04-14-2023 Anisocytosis Ql (Bld) Slight [facility] Band form neutrophils/100 WB C Manual cnt (Bld)Ordered By: Selvin Bey on 04-14-2023 Band form neutrophils/100 WBC (Bld) 2 % 0-5 [facility] Basophils Auto (Bld) [#/Vol] Ordered By: Selvin Bey on 04-14-2023 Basophils (Bld) [#/Vol] N/A [facility] Basophils/100 WBC Auto (Bld) Ordered By: Selvin Bey on 04-14-2023 Basophils/100 WBC (Bld) N/A [facility] Basophils/100 WBC Manual cnt (Bld)Ordered By: Selvin Bey on 04-14-2023 Basophils/100 WBC (Bld) 1 % 0-2 [facility] Calcium [Mass/volume] in Ser um or PlasmaOrdered By: Selvin Bey on 04-14-2023 Calcium [Mass/Vol] 9.4 mg/dL 8.6-10.3 [facility] Carbon dioxide, total [Moles /volume] in Serum or PlasmaOrdered By: Selvin Bey on 04-14-2023 CO2 [Moles/Vol] 20.5 mmol/L 21.0-31.0 [facility] Chloride [Moles/volume] in S marivel or PlasmaOrdered By: Selvin Bey on 04-14-2023 Chloride [Moles/Vol] 102 mmol/L 98-107 [facility] Comprehensive Metabolic Pane jeremy 04-14-2023 Albumin [Mass/Vol] 3.3 g/dL Low 3.5-5.7 [facility] Comment on above: Performed By: #### C UBLD, CMP, CBC #### [facility] [address] Albumin/Globulin [Mass ratio] 0.8 {ratio} Normal [facility] Comment on above: Performed By: #### C UBLD, CMP, CBC #### [facility] [address] ALP [Catalytic activity/Vol] 82 U/L Normal 34-104 [facility] Comment on above: Performed By: #### C UBLD, CMP, CBC #### [facility] [address] ALT [Catalytic activity/Vol] 150 U/L High 7-52 [facility] Comment on above: Performed By: #### C UBLD, CMP, CBC #### [facility] [address] [place] [address] [place] Anion gap [Moles/Vol] 11.3 mmol/L Normal 6.0-15.0 [facility] Comment on above: Performed By: #### C UBLD, CMP, CBC #### [facility] [address] [place] [address] [place] AST [Catalytic activity/Vol] 79 U/L High 13-39 [facility] Comment on above: Performed By: #### C UBLD, CMP, CBC #### [facility] [address] [place] [address] [place] Bilirubin [Mass/Vol] 0.4 mg/dL Normal 0.3-1.0 [facility] Comment on above: Performed By: #### C UBLD, CMP, CBC #### [facility] [address] [place] [address] [place] Calcium [Mass/Vol] 9.4 mg/dL Normal 8.6-10.3 [facility] Comment on above: Performed By: #### C UBLD, CMP, CBC #### [facility] [address] Chloride [Moles/Vol] 102 mmol/L Normal 98-107 [facility] Comment on above: Performed By: #### C ALEXX RAND, CBC #### [facility] [address] CO2 [Moles/Vol] 20.5 mmol/L Low 21.0-31.0 [facility] Comment on above: Performed By: #### C UBPREMA CMP, CBC #### [facility] [address] Creatinine [Mass/Vol] 0.86 mg/dL Normal 0.60-1.20 [facility] Comment on above: Performed By: #### C ALEXX RAND, CBC #### [facility] [address] [place] [address] [place] Creatinine Clr Calc Pharmacy 87.48 [facility] Comment on above: Performed By: #### C ALEXX RAND, CBC #### [place] [address] [place] GFR/1.73 sq M.predicted MDRD (S/P/Bld) [Vol rate/Area] mL/min/{1.73_m2} [facility] Comment on above: Performed By: #### C ALEXX RAND, CBC #### [address] Globulin (S) [Mass/Vol] 4.0 g/dL [facility] Comment on above: Performed By: #### C UBPREMA CMP, CBC #### [address] Glucose [Mass/Vol] 108 mg/dL High 70-100 [facility] Comment on above: Result Comment: [place] Glucose Reference Range is dependent on time and content of last meal. Glucose of more than 200 mg/dL in a nonstressed, ambulatory subject supports the diagnosis of Diabetes Mellitus. ADA recommended reference range Performed By: #### C UBLD, CMP, CBC #### [place] [address] [place] Potassium [Moles/Vol] 3.8 mmol/L Normal 3.5-5.1 [facility] Comment on above: Performed By: #### C UBLD, CMP, CBC #### [facility] [address] Protein [Mass/Vol] 7.3 g/dL Normal 6.4-8.9 [facility] Comment on above: Performed By: #### C UBLD, CMP, CBC #### [address] Sodium [Moles/Vol] 130 mmol/L Low 136-145 [facility] Comment on above: Performed By: #### C UBLD, CMP, CBC #### [address] Urea nitrogen [Mass/Vol] 37 mg/dL High 7-25 [facility] Comment on above: Performed By: #### C UBLD, CMP, CBC #### [address] Creatinine [Mass/volume] in Serum or PlasmaOrdered By: Selvin Bey on 04-14-2023 Creatinine [Mass/Vol] 0.86 mg/dL 0.60-1.20 [facility] Diff and CBCon 04-14-2023 Anisocytosis Ql (Bld) Slight Normal [facility] Comment on above: Performed By: #### C UBLD, CMP, CBC #### [facility] [address] [place] [address] [place] Band form neutrophils/100 WBC (Bld) 2 % Normal 0-5 [facility] Comment on above: Performed By: #### C UBLD, CMP, CBC #### [facility] [address] [place] [address] [place] Basophils/100 WBC (Bld) 1 % Normal 0-2 [facility] Comment on above: Performed By: #### C UBLD, CMP, CBC #### [place] [address] [place] Eosinophils/100 WBC (Bld) 3 % Normal 1-3 [facility] Comment on above: Performed By: #### C UBLD, CMP, CBC #### [facility] [address] Erythrocyte distribution width (RBC) [Ratio] 16.9 % High 11.9-15.3 [facility] Comment on above: Performed By: #### C UBLD, CMP, CBC #### [address] Giant Platelet Tally 2 /100{WBC} Normal [facility] Comment on above: Performed By: #### C UBLD, CMP, CBC #### [address] Hematocrit (Bld) [Volume fraction] 36.0 % Normal 34.0-46.4 [facility] Comment on above: Performed By: #### C UBLD, CMP, CBC #### [address] Hemoglobin (Bld) [Mass/Vol] 11.5 g/dL Low 11.8-15.4 [facility] Comment on above: Performed By: #### C UBLD, CMP, CBC #### [address] Lymphocytes/100 WBC (Bld) 13 % Low 18-42 [facility] Comment on above: Performed By: #### C UBLD, CMP, CBC #### [address] MCH (RBC) [Entitic mass] 26.0 pg Normal 24.7-34.3 [facility] Comment on above: Performed By: #### C UBLD, CMP, CBC #### [address] MCV (RBC) [Entitic vol] 81.0 fL Normal 80-100 [facility] Comment on above: Performed By: #### C UBLD, CMP, CBC #### [address] Mean Corpuscular HGB Conc 32.1 g/dL Normal 32.0-35.0 [facility] Comment on above: Performed By: #### C UBLD, CMP, CBC #### [facility] [address] [place] [address] [place] Metamyelocytes 3 % High 0-0 [facility] Comment on above: Performed By: #### C UBLD, CMP, CBC #### [facility] [address] [place] [address] [place] Microcytosis Slight Normal [facility] Comment on above: Performed By: #### C UBLD, CMP, CBC #### [place] [address] [place] Monocytes/100 WBC (Bld) 8 % Normal 2-11 [facility] Comment on above: Performed By: #### C UBLD, CMP, CBC #### [address] Nucleated Red Blood Cell 2 /100{WBC} High 0-0 [facility] Comment on above: Performed By: #### C UBLD, CMP, CBC #### [place] [address] [place] Platelet Estimate Increased Normal Normal [facility] Comment on above: Performed By: #### C UBLD, CMP, CBC #### [place] [address] [place] Platelet mean volume (Bld) [Entitic vol] 7.0 fL Normal 6.3-10.7 [facility] Comment on above: Result Comment: PERF ORMED BY: [place] [address] PATHOLOGIST ARRESTING GEAR OPERATOR IAN ACE M.D. Performed By: #### C UBLD, CMP, CBC #### [facility] [address] [place] [address] [place] Platelet Morphology Normal Normal Normal [facility] Comment on above: Result Comment: PERF ORMED BY: [place] [address] PATHOLOGIST ARRESTING GEAR OPERATOR IAN ACE M.D. Performed By: #### C UBLD, CMP, CBC #### [facility] [address] [place] [address] [place] Platelets (Bld) [#/Vol] 457 10*3/uL High 150-450 [facility] Comment on above: Performed By: #### C UBLD, CMP, CBC #### [facility] [address] Polychromasia Slight Normal [facility] Comment on above: Performed By: #### C UBLD, CMP, CBC #### [facility] [address] RBC (Bld) [#/Vol] 4.44 10*6/uL Normal 3.60-5.00 [facility] Comment on above: Performed By: #### C UBLD, CMP, CBC #### [facility] [address] Segmented neutrophils/100 WBC (Bld) 71 % High 50-70 [facility] Comment on above: Performed By: #### C UBLD, CMP, CBC #### [facility] [address] [place] [address] [place] WBC (Bld) [#/Vol] 6.5 10*3/uL Normal 3.8-11.6 [facility] Comment on above: Performed By: #### C UBLD, CMP, CBC #### [address] Eosinophils Auto (Bld) [#/Vo l]Ordered By: Selvin Bey on 04-14-2023 Eosinophils (Bld) [#/Vol] N/A [facility] Eosinophils/100 WBC Auto (Bl d)Ordered By: Selvin Bey on 04-14-2023 Eosinophils/100 WBC (Bld) N/A [facility] Eosinophils/100 WBC Manual c nt (Bld)Ordered By: Selvin Bey on 04-14-2023 Eosinophils/100 WBC (Bld) 3 % 1-3 [facility] Erythrocyte distribution wid th Auto (RBC) [Ratio]Ordered By: Selvin Bey on 04-14-2023 Erythrocyte distribution width (RBC) [Ratio] 16.9 % 11.9-15.3 [facility] Giant platelets/100 leukocyt es [Ratio] in Blood by Manual countOrdered By: Selvin Bey on 04-14-2023 Giant platelets/100 WBC Manual cnt (Bld) [Ratio] 2 /100{WBC} [facility] Glucose [Mass/volume] in Ser um or PlasmaOrdered By: Selvin Bey on 04-14-2023 Glucose [Mass/Vol] 108 mg/dL 70-100 [facility] Comment on above: ADA recommended refe rence rangeRandom Glucose Reference Range is dependent on time and content of last meal. Glucose of more than 200 mg/dL in a nonstressed, ambulatory subject supports the diagnosis of Diabetes Mellitus. Hematocrit Auto (Bld) [Volum e fraction]Ordered By: Selvin Bey on 04-14-2023 Hematocrit (Bld) [Volume fraction] 36.0 % 34.0-46.4 [facility] Hemoglobin [Mass/volume] in BloodOrdered By: Selvin Bey on 04-14-2023 Hemoglobin (Bld) [Mass/Vol] 11.5 g/dL 11.8-15.4 [facility] Hepatitis Acute Panelon 110 HBsAg Screen Negative Normal Negative [facility] Comment on above: Performed By: #### L ACTIC, CMP, CBC #### [facility] [address] [place] [address] Hepatitis A Antibody IgM Negative Normal Negative [facility] Comment on above: Performed By: #### L ACTIC, CMP, CBC #### [facility] [address] [place] [address] Hepatitis B Core Antibody IgM Negative Normal Negative [facility] Comment on above: Performed By: #### L ACTIC, CMP, CBC #### [facility] [address] [place] [address] Hepatitis C Virus Antibody Non-Reactive Normal Non Reactive [facility] Comment on above: Performed By: #### L ACTIC, CMP, CBC #### [facility] [address] [place] [address] Interpretation Hepatitis C Normal . [facility] Comment on above: Result Comment: Not infected with HCV unless early or acute infection is suspected (which may be delayed in an immunocompromised individual), or other evidence exists to indicate HCV infection. Performed at: - [facility] [id number] Head Cook: Mohsen Mccarthy PhD, Phone: [phone] PERFORMED BY: [place] [address] PATHOLOGIST ARRESTING GEAR OPERATOR IAN ACE M.D. Performed By: #### L ACTIC, CMP, CBC #### [address] Hepatitis B virus surface Ag [Presence] in Serum or Plasma by ImmunoassayOrdered By: Selvin Bey on 04-14-2023 HBV surface Ag IA Ql Negative Negative [facility] Hepatitis C virus IgG Ab [Pr esence] in Serum or Plasma by ImmunoassayOrdered By: Selvin Bey on 04-14-2023 HCV IgG IA Ql Non-Reactive Non Reactive [facility] Hepatitis C virus RNA [Units /volume] (viral load) in Serum or Plasma by JUJU with probOrdered By: Selvin Bey on 04-14-2023 HCV RNA JUJU+probe Qn N/A [facility] Hepatitis C virus RNA [log u nits/volume] (viral load) in Serum or Plasma by JUJU withOrdered By: Selvin Bey on 04-14-2023 HCV RNA JUJU+probe [Log units/Vol] N/A [facility] Leukocytes [#/volume] correc julia for nucleated erythrocytes in Blood by Automated counOrdered By: Selvin Bey on 04-14-2023 WBC corrected for nucl RBC Auto (Bld) [#/Vol] 6.5 10*3/uL 3.8-11.6 [facility] Lymphocytes Auto (Bld) [#/Vo l]Ordered By: Selvin Bey on 04-14-2023 Lymphocytes (Bld) [#/Vol] N/A [facility] Lymphocytes/100 WBC Auto (Bl d)Ordered By: Selvin Bey on 04-14-2023 Lymphocytes/100 WBC (Bld) N/A [facility] Lymphocytes/100 WBC Manual c nt (Bld)Ordered By: Selvin Bey on 04-14-2023 Lymphocytes/100 WBC (Bld) 13 % 18-42 [facility] MCH Auto (RBC) [Entitic mass ]Ordered By: Selvin Bey on 04-14-2023 MCH (RBC) [Entitic mass] 26.0 pg 24.7-34.3 [facility] MCHC Auto (RBC) [Mass/Vol]Or dered By: Selvin Bey on 04-14-2023 MCHC (RBC) [Mass/Vol] 32.1 g/dL 32.0-35.0 [facility] MCV Auto (RBC) [Entitic vol] Ordered By: Selvin Bey on 04-14-2023 MCV (RBC) [Entitic vol] 81.0 fL 80-100 [facility] Magnesiumon 04-14-2023 Magnesium [Mass/Vol] 2.3 mg/dL Normal 1.9-2.7 [facility] Comment on above: Result Comment: PERF ORMED BY: [place] [address] PATHOLOGIST ARRESTING GEAR OPERATOR IAN ACE M.D. Performed By: #### C UBLD, CMP, CBC #### [address] Magnesium [Mass/volume] in S marivel or PlasmaOrdered By: Selvin Bey on 04-14-2023 Magnesium [Mass/Vol] 2.3 mg/dL 1.9-2.7 [facility] Metamyelocytes/100 WBC Manua l cnt (Bld)Ordered By: Selvin Bey on 04-14-2023 Metamyelocytes/100 WBC (Bld) 3 % 0-0 [facility] Microcytes LM Ql (Bld)Ordere d By: Selvin Bey on 04-14-2023 Microcytes Ql (Bld) Slight [facility] Monocytes Auto (Bld) [#/Vol] Ordered By: Selvin Bey on 04-14-2023 Monocytes (Bld) [#/Vol] N/A [facility] Monocytes/100 WBC Auto (Bld) Ordered By: Selvin Bey on 04-14-2023 Monocytes/100 WBC (Bld) N/A [facility] Monocytes/100 WBC Manual cnt (Bld)Ordered By: Selvin Bey on 04-14-2023 Monocytes/100 WBC (Bld) 8 % 2-11 [facility] Neutrophils Auto (Bld) [#/Vo l]Ordered By: Selvin Bey on 04-14-2023 Neutrophils (Bld) [#/Vol] N/A [facility] Neutrophils/100 WBC Auto (Bl d)Ordered By: Selvin Bey on 04-14-2023 Neutrophils/100 WBC (Bld) N/A [facility] No Panel InformationOrdered By: Selvin Bey on 04-14-2023 Hepatitis A IgM Antibody Negative Negative [facility] Hepatitis B Core IgM Antibody Negative Negative [facility] Hepatitis C Interpretation See comment . [facility] Comment on above: Not infected with HC V unless early or acute infection issuspected (which may be delayed in an immunocompromisedindividual), or other evidence exists to indicate HCVinfection.Performed at: [facility] [place] [id number] Director: Mohsen Mccarthy PhD, Phone: [phone] Estimated GFR (CKD-EPI) > 60.0 mL/Min [facility] Creatinine Clearance (Chem 87.48 [facility] Nucleated RBC/100 WBC Manual cnt (Bld) [Ratio]Ordered By: Selvin Bey on 04-14-2023 Nucleated RBC/100 WBC (Bld) [Ratio] 2 /100{WBC} 0-0 [facility] Nucleated erythrocytes [Pres ence] in Blood by Automated countOrdered By: Selvin Bey on 04-14-2023 Nucleated RBC Auto Ql (Bld) N/A [facility] Phosphoruson 04-14-2023 Phosphate [Mass/Vol] 2.6 mg/dL Low 3.7-7.2 [facility] Comment on above: Performed By: #### C UBLD, CMP, CBC #### [facility] [address] [place], [place] [id number] [facility] Platelet adequacy [Presence] in Blood by Light microscopyOrdered By: Selvin Bey on 04-14-2023 Platelets LM Ql (Bld) Increased Normal [facility] Platelet mean volume Auto (B ld) [Entitic vol]Ordered By: Selvin Bey on 04-14-2023 Platelet mean volume (Bld) [Entitic vol] 7.0 fL 6.3-10.7 [facility] Platelet morphology finding [Identifier] in BloodOrdered By: Selvin Bey on 04-14-2023 Platelet morphology finding Nom (Bld) Normal Normal [facility] Platelets Auto (Bld) [#/Vol] Ordered By: Selvin Bey on 04-14-2023 Platelets (Bld) [#/Vol] 457 10*3/uL 150-450 [facility] Polychromasia [Presence] in Blood by Light microscopyOrdered By: Selvin Bey on 04-14-2023 Polychromasia LM Ql (Bld) Slight [facility] Potassium [Moles/volume] in Serum or PlasmaOrdered By: Selvin Bey on 04-14-2023 Potassium [Moles/Vol] 3.8 mmol/L 3.5-5.1 [facility] RBC Auto (Bld) [#/Vol]Ordere d By: Selvin Bey on 04-14-2023 RBC (Bld) [#/Vol] 4.44 10*6/uL 3.60-5.00 [facility] RBC morphologyOrdered By: Ra taco Bey on 04-14-2023 RBC morphology finding Nom (Bld) N/A [facility] Segmented neutrophils/100 WB C Manual cnt (Bld)Ordered By: Selvin Bey on 04-14-2023 Segmented neutrophils/100 WBC (Bld) 71 % 50-70 [facility] Serum or plasma anion gap de terminationOrdered By: Selvin Bey on 04-14-2023 Anion gap [Moles/Vol] 11.3 mmol/L 6.0-15.0 [facility] Sodium [Moles/volume] in Ser um or PlasmaOrdered By: Selvin Bey on 04-14-2023 Sodium [Moles/Vol] 130 mmol/L 136-145 [facility] US venous duplex LE BIon US venous duplex LE BI [facility] [place] [address] [place] [address] Ultrasound Report Signed Patient: [place] Cesar MR#: [id number] : 1955 Acct:[id number] Age/Sex: 67 / F ADM Date: 04/10/23 Loc: Room: [address] [place] [address] Type: ADM IN Attending Dr: Selvin Bey [...] Du Zaragoza M.D.04/14/2023 11:07 AM Dictation Location: [place] [address] Tech: Hermelinda Knox Transcribed By: MARIA VICTORIA 04/14/23 110 Dictated By: Du Zaragoza MD 04/14/23 1106 Signed By: 04/14/23 110 Normal [facility] Urea nitrogen [Mass/volume] in Serum or PlasmaOrdered By: Selvin Bey on 04-14-2023 Urea nitrogen [Mass/Vol] 37 mg/dL 7-25 [facility] Vancomycin,Troughon 04-14-20 23 Vancomycin,Trough 16.7 ug/mL Normal 10.0-20.0 [facility] Comment on above: Result Comment: Last dose: - PERFORMED BY: [place] [address] PATHOLOGIST ARRESTING GEAR OPERATOR IAN ACE M.D. Performed By: #### C UBLD, CMP, CBC #### [facility] [address] [place] [address] [place] WBC Auto (Bld) [#/Vol]Ordere d By: Selvin Bey on 04-14-2023 WBC (Bld) [#/Vol] 6.5 10*3/uL 3.8-11.6 [facility] Basic Metabolic Panelon Anion gap [Moles/Vol] 11.7 mmol/L Normal 6.0-15.0 [facility] Comment on above: Performed By: #### L ACTIC, CMP, CBC #### [facility] [address] [place] [address] [place] Calcium [Mass/Vol] 8.9 mg/dL Normal 8.6-10.3 [facility] Comment on above: Performed By: #### L ACTIC, CMP, CBC #### [facility] [address] [place] [address] [place] Chloride [Moles/Vol] 100 mmol/L Normal 98-107 [facility] Comment on above: Performed By: #### L ACTIC, CMP, CBC #### [facility] [address] [place] [address] [place] CO2 [Moles/Vol] 20.7 mmol/L Low 21.0-31.0 [facility] Comment on above: Performed By: #### L ACTIC, CMP, CBC #### [facility] [address] [place] [address] [place] Creatinine [Mass/Vol] 1.10 mg/dL Normal 0.60-1.20 [facility] Comment on above: Performed By: #### L ACTIC, CMP, CBC #### [facility] [address] [place] [address] [place] Creatinine Clr Calc Pharmacy 68.40 [facility] Comment on above: Result Comment: PERF ORMED BY: [place] [address] PATHOLOGIST ARRESTING GEAR OPERATOR IAN ACE M.D. Performed By: #### L ACTIC, CMP, CBC #### [place] [address] [place] GFR/1.73 sq M.predicted MDRD (S/P/Bld) [Vol rate/Area] 55.418 mL/min/{1.73_m2} [facility] Comment on above: Performed By: #### L ACTIC, CMP, CBC #### [address] Glucose [Mass/Vol] 132 mg/dL High 70-100 [facility] Comment on above: Result Comment: [place] Glucose Reference Range is dependent on time and content of last meal. Glucose of more than 200 mg/dL in a nonstressed, ambulatory subject supports the diagnosis of Diabetes Mellitus. ADA recommended reference range Performed By: #### L ACTIC, CMP, CBC #### [address] Potassium [Moles/Vol] 3.4 mmol/L Low 3.5-5.1 [facility] Comment on above: Performed By: #### L ACTIC, CMP, CBC #### [place] [address] [place] Sodium [Moles/Vol] 129 mmol/L Low 136-145 [facility] Comment on above: Performed By: #### L ACTIC, CMP, CBC #### [address] Urea nitrogen [Mass/Vol] 42 mg/dL High 7-25 [facility] Comment on above: Performed By: #### L ACTIC, CMP, CBC #### [address] Ovalocyte detectionOrdered B y: Malorie Nathan on 04-13-2023 Ovalocytes LM Ql (Bld) Slight [facility] Platelets Large [Presence] i n Blood by Light microscopyOrdered By: Malorie Nathan on 04-13-2023 Platelets Large LM Ql (Bld) Slight [facility] Poikilocytosis [Presence] in Blood by Light microscopyOrdered By: Malorie Nathan on 04-13-2023 Poikilocytosis LM Ql (Bld) Slight [facility] Scan and CBCon 04-13-2023 Anisocytosis Ql (Bld) Slight Normal [facility] Comment on above: Performed By: #### L ACTIC, CMP, CBC #### [facility] [address] [place] [address] [place] Basophils (Bld) [#/Vol] 0.1 10*3/uL Normal 0.0-0.2 [facility] Comment on above: Performed By: #### L ACTIC, CMP, CBC #### [address] Basophils/100 WBC (Bld) 1.3 % Normal . [facility] Comment on above: Performed By: #### L ACTIC, CMP, CBC #### [facility] [address] [place] [address] [place] Eosinophils (Bld) [#/Vol] 0.2 10*3/uL Normal 0.0-0.45 [facility] Comment on above: Performed By: #### L ACTIC, CMP, CBC #### [place] [address] [place] Eosinophils/100 WBC (Bld) 3.0 % Normal . [facility] Comment on above: Performed By: #### L ACTIC, CMP, CBC #### [facility] [address] [place] [address] [place] Erythrocyte distribution width (RBC) [Ratio] 16.7 % High 11.9-15.3 [facility] Comment on above: Performed By: #### L ACTIC, CMP, CBC #### [facility] [address] [place] [address] [place] Hematocrit (Bld) [Volume fraction] 33.0 % Low 34.0-46.4 [facility] Comment on above: Performed By: #### L ACTIC, CMP, CBC #### [address] Hemoglobin (Bld) [Mass/Vol] 10.7 g/dL Low 11.8-15.4 [facility] Comment on above: Performed By: #### L ACTIC, CMP, CBC #### [address] Large Platelets Slight Normal [facility] Comment on above: Result Comment: PERF ORMED BY: [place] [address] PATHOLOGIST ARRESTING GEAR OPERATOR IAN ACE M.D. Performed By: #### L ACTIC, CMP, CBC #### [address] Lymphocytes (Bld) [#/Vol] 0.8 10*3/uL Low 1.00-4.8 [facility] Comment on above: Performed By: #### L ACTIC, CMP, CBC #### [address] Lymphocytes/100 WBC (Bld) 10.6 % Normal . [facility] Comment on above: Performed By: #### L ACTIC, CMP, CBC #### [address] MCH (RBC) [Entitic mass] 26.0 pg Normal 24.7-34.3 [facility] Comment on above: Performed By: #### L ACTIC, CMP, CBC #### [address] MCV (RBC) [Entitic vol] 80.2 fL Normal 80-100 [facility] Comment on above: Performed By: #### L ACTIC, CMP, CBC #### [address] Mean Corpuscular HGB Conc 32.4 g/dL Normal 32.0-35.0 [facility] Comment on above: Performed By: #### L ACTIC, CMP, CBC #### [place] [address] [place] Microcytosis Slight Normal [facility] Comment on above: Performed By: #### L ACTIC, CMP, CBC #### [facility] [address] Monocytes (Bld) [#/Vol] 0.8 10*3/uL Normal 0.0-0.8 [facility] Comment on above: Performed By: #### L ACTIC, CMP, CBC #### [address] Monocytes/100 WBC (Bld) 11.9 % Normal . [facility] Comment on above: Performed By: #### L ACTIC, CMP, CBC #### [address] Neutrophils (Bld) [#/Vol] 5.2 10*3/uL Normal 1.8-7.7 [facility] Comment on above: Performed By: #### L ACTIC, CMP, CBC #### [address] Neutrophils/100 WBC (Bld) 73.2 % Normal . [facility] Comment on above: Performed By: #### L ACTIC, CMP, CBC #### [place] [address] [place] NRBC% 0.2 /100{WBC} Normal 0-0.5 [facility] Comment on above: Performed By: #### L ACTIC, CMP, CBC #### [place] [address] [place] Ovalocytes Slight Normal [facility] Comment on above: Performed By: #### L ACTIC, CMP, CBC #### [address] Platelet Estimate Normal Normal Normal [facility] Comment on above: Performed By: #### L ACTIC, CMP, CBC #### [address] [place] [address] [place] Platelet mean volume (Bld) [Entitic vol] 6.9 fL Normal 6.3-10.7 [facility] Comment on above: Performed By: #### L ACTIC, CMP, CBC #### [address] Platelets (Bld) [#/Vol] 390 10*3/uL Normal 150-450 [facility] Comment on above: Performed By: #### L ACTIC, CMP, CBC #### [address] Poikilocytosis Slight Normal [facility] Comment on above: Performed By: #### L ACTIC, CMP, CBC #### [address] Polychromasia Slight Normal [facility] Comment on above: Performed By: #### L ACTIC, CMP, CBC #### [address] RBC (Bld) [#/Vol] 4.11 10*6/uL Normal 3.60-5.00 [facility] Comment on above: Performed By: #### L ACTIC, CMP, CBC #### [address] WBC (Bld) [#/Vol] 7.1 10*3/uL Normal 3.8-11.6 [facility] Comment on above: Performed By: #### L ACTIC, CMP, CBC #### [address] Serum or plasma trough vanco mycin levelOrdered By: Neeraj Farrell on 04-13-2023 Vancomycin trough [Mass/Vol] 16.7 ug/mL 10.0-20.0 [facility] Comment on above: Last dose: - Vancomycin [Mass/volume] in Serum or Plasma --peakOrdered By: Neeraj Farrell on 04-13-2023 Vancomycin peak [Mass/Vol] 32.0 ug/mL 20.0-40.0 [facility] Comment on above: Last dose: - Vancomycin,Peakon 04-13-2023 Vancomycin,Peak 32.0 ug/mL Normal 20.0-40.0 [facility] Comment on above: Order Comment: Comme nt ?DRAW 1 HOUR AFTER INFUSION COMPLETES Date of last dose?: 20230412 Time of last dose?: 2329 Result Comment: Last dose: - PERFORMED BY: [place] [address] PATHOLOGIST ARRESTING GEAR OPERATOR IAN ACE M.D. Performed By: #### C UBLD, CMP, CBC #### [facility] [address] Basic Metabolic Panelon 11 Anion gap [Moles/Vol] 12.9 mmol/L Normal 6.0-15.0 [facility] Comment on above: Performed By: #### C UBLD, CMP, CBC #### [facility] [address] Calcium [Mass/Vol] 8.9 mg/dL Normal 8.6-10.3 [facility] Comment on above: Performed By: #### C UBLD, CMP, CBC #### [facility] [address] [place] [address] [place] Chloride [Moles/Vol] 100 mmol/L Normal 98-107 [facility] Comment on above: Performed By: #### C UBLD, CMP, CBC #### [facility] [address] CO2 [Moles/Vol] 19.0 mmol/L Low 21.0-31.0 [facility] Comment on above: Performed By: #### C UBLD, CMP, CBC #### [facility] [address] [place] [address] [place] Creatinine [Mass/Vol] 1.13 mg/dL Normal 0.60-1.20 [facility] Comment on above: Performed By: #### C UBLD, CMP, CBC #### [facility] [address] [place] [address] [place] Creatinine Clr Calc Pharmacy 65.44 Normal [facility] Comment on above: Result Comment: PERF ORMED BY: [place] [address] PATHOLOGIST ARRESTING GEAR OPERATOR IAN ACE M.D. Performed By: #### C UBLD, CMP, CBC #### [place] [address] [place] GFR/1.73 sq M.predicted MDRD (S/P/Bld) [Vol rate/Area] 53.657 mL/min/{1.73_m2} [facility] Comment on above: Performed By: #### C UBLD, CMP, CBC #### [address] Glucose [Mass/Vol] 119 mg/dL High 70-100 [facility] Comment on above: Result Comment: [place] Glucose Reference Range is dependent on time and content of last meal. Glucose of more than 200 mg/dL in a nonstressed, ambulatory subject supports the diagnosis of Diabetes Mellitus. ADA recommended reference range Performed By: #### C UBLD, CMP, CBC #### [address] Potassium [Moles/Vol] 3.9 mmol/L Normal 3.5-5.1 [facility] Comment on above: Performed By: #### C UBLD, CMP, CBC #### [place] [address] [place] Sodium [Moles/Vol] 128 mmol/L Low 136-145 [facility] Comment on above: Performed By: #### C UBLD, CMP, CBC #### [facility] [address] [place] [address] [place] Urea nitrogen [Mass/Vol] 43 mg/dL High 7-25 [facility] Comment on above: Performed By: #### C UBLD, CMP, CBC #### [address] Complete Blood Count Auto Di ffon 04-12-2023 Basophils (Bld) [#/Vol] 0.0 10*3/uL Normal 0.0-0.2 [facility] Comment on above: Result Comment: PERF ORMED BY: [place] [address] PATHOLOGIST ARRESTING GEAR OPERATOR IAN ACE M.D. Performed By: #### C UBLD, CMP, CBC #### [address] Basophils/100 WBC (Bld) 0.5 % Normal . [facility] Comment on above: Performed By: #### C UBLD, CMP, CBC #### [address] Eosinophils (Bld) [#/Vol] 0.1 10*3/uL Normal 0.0-0.45 [facility] Comment on above: Performed By: #### C UBLD, CMP, CBC #### [address] Eosinophils/100 WBC (Bld) 1.6 % Normal . [facility] Comment on above: Performed By: #### C UBLD, CMP, CBC #### [address] Erythrocyte distribution width (RBC) [Ratio] 16.9 % High 11.9-15.3 [facility] Comment on above: Performed By: #### C UBLD, CMP, CBC #### [address] Hematocrit (Bld) [Volume fraction] 31.7 % Low 34.0-46.4 [facility] Comment on above: Performed By: #### C UBLD, CMP, CBC #### [place] [address] [place] Hemoglobin (Bld) [Mass/Vol] 10.3 g/dL Low 11.8-15.4 [facility] Comment on above: Performed By: #### C UBLD, CMP, CBC #### [address] Lymphocytes (Bld) [#/Vol] 0.6 10*3/uL Low 1.00-4.8 [facility] Comment on above: Performed By: #### C UBLD, CMP, CBC #### [facility] [address] Lymphocytes/100 WBC (Bld) 8.2 % Normal . [facility] Comment on above: Performed By: #### C UBLD, CMP, CBC #### [facility] [address] MCH (RBC) [Entitic mass] 26.2 pg Normal 24.7-34.3 [facility] Comment on above: Performed By: #### C UBLD, CMP, CBC #### [address] MCV (RBC) [Entitic vol] 80.7 fL Normal 80-100 [facility] Comment on above: Performed By: #### C UBLD, CMP, CBC #### [address] Mean Corpuscular HGB Conc 32.5 g/dL Normal 32.0-35.0 [facility] Comment on above: Performed By: #### C UBLD, CMP, CBC #### [place] [address] [place] Monocytes (Bld) [#/Vol] 1.0 10*3/uL High 0.0-0.8 [facility] Comment on above: Performed By: #### C UBLD, CMP, CBC #### [place] [address] [place] Monocytes/100 WBC (Bld) 13.4 % Normal . [facility] Comment on above: Performed By: #### C UBLD, CMP, CBC #### [place] [address] [place] Neutrophils (Bld) [#/Vol] 5.6 10*3/uL Normal 1.8-7.7 [facility] Comment on above: Performed By: #### C UBLD, CMP, CBC #### [address] Neutrophils/100 WBC (Bld) 76.3 % Normal . [facility] Comment on above: Performed By: #### C UBLD, CMP, CBC #### [address] NRBC% 0.3 /100{WBC} Normal 0-0.5 [facility] Comment on above: Performed By: #### C UBLD, CMP, CBC #### [address] Platelet mean volume (Bld) [Entitic vol] 7.2 fL Normal 6.3-10.7 [facility] Comment on above: Performed By: #### C UBLD, CMP, CBC #### [address] Platelets (Bld) [#/Vol] 363 10*3/uL Normal 150-450 [facility] Comment on above: Performed By: #### C UBLD, CMP, CBC #### [address] RBC (Bld) [#/Vol] 3.93 10*6/uL Normal 3.60-5.00 [facility] Comment on above: Performed By: #### C UBLD, CMP, CBC #### [address] WBC (Bld) [#/Vol] 7.3 10*3/uL Normal 3.8-11.6 [facility] Comment on above: Performed By: #### C UBLD, CMP, CBC #### [address] Arterial Blood Gason 023 ABG Base Excess -15.4 mmol/L Low -3.0-3.0 [facility] Comment on above: Performed By: #### C UBLD, CMP, CBC #### [address] ABG Frac Inspired O2 44 % Normal [facility] Comment on above: Performed By: #### C UBLD, CMP, CBC #### [address] [place] [address] [place] ABG Liter Flow 6 Normal [facility] Comment on above: Performed By: #### C UBLD, CMP, CBC #### [address] ABG Oxygen Content 7.8 mmol/L Normal 6.6-9.7 [facility] Comment on above: Performed By: #### C UBLD, CMP, CBC #### [address] ABG Oxygen Saturation 97.6 % Normal 95.0-100.0 [facility] Comment on above: Performed By: #### C UBLD, CMP, CBC #### [address] ABG PCO2 52.5 mm[Hg] Off scale high 35.0-45.0 [facility] Comment on above: Performed By: #### C UBLD, CMP, CBC #### [address] ABG PH 7.07 Off scale low 7.35-7.45 [facility] Comment on above: Performed By: #### C UBLD, CMP, CBC #### [address] ABG PO2 105.6 mm[Hg] High 80.0-100.0 [facility] Comment on above: Performed By: #### C UBLD, CMP, CBC #### [address] CO2 [Moles/Vol] 16.3 mmol/L Low 23.0-27.0 [facility] Comment on above: Performed By: #### C UBLD, CMP, CBC #### [address] HCO3 (Bld) [Moles/Vol] 14.7 mmol/L Low 23.0-29.0 [facility] Comment on above: Performed By: #### C UBLD, CMP, CBC #### [address] Respiratory Critical Normal [facility] Comment on above: Result Comment: Crit ical Value called on: 04/11/2023 at 08:56 PERFORMED BY: [place] [address] PATHOLOGIST ARRESTING GEAR OPERATOR IAN ACE M.D. Performed By: #### C UBLD, CMP, CBC #### [facility] [address] [place] [address] VBG Draw Site Right Radial Normal [facility] Comment on above: Performed By: #### C UBLD, CMP, CBC #### [address] B-Type Natriuretic Peptideon 04-11-2023 Natriuretic peptide B (Bld) [Mass/Vol] 181.0 pg/mL High 5-100 [facility] Comment on above: Result Comment: PERF ORMED BY: [place] [address] PATHOLOGIST ARRESTING GEAR OPERATOR IAN ACE M.D. Performed By: #### C UBLD, CMP, CBC #### [address] Bacterial blood cultureOrder ed By: Laith Monte on 04-11-2023 Bacteria identified Cx Nom (Bld) NO GROWTH 5 DAYS [facility] Blood Cultureon 04-11-2023 Bacteria identified Cx Nom (Bld) NO GROWTH 5 DAYS PERFORMED BY: [place] [address] PATHOLOGIST ARRESTING GEAR OPERATOR IAN ACE M.D. [facility] Comment on above: Performed By: #### C UBLD, CMP, CBC #### [facility] [address] [place] [address] Bacteria identified Cx Nom (Bld) NO GROWTH 5 DAYS PERFORMED BY: [place] [address] PATHOLOGIST ARRESTING GEAR OPERATOR IAN ACE M.D. [facility] Comment on above: Performed By: #### C UBLD, CMP, CBC #### [address] Complete Blood Count Auto Di ffon 04-11-2023 Basophils (Bld) [#/Vol] 0.1 10*3/uL Normal 0.0-0.2 [facility] Comment on above: Result Comment: PERF ORMED BY: [place] [address] PATHOLOGIST ARRESTING GEAR OPERATOR IAN ACE M.D. Performed By: #### C UBLD, CMP, CBC #### [address] Basophils/100 WBC (Bld) 0.6 % Normal . [facility] Comment on above: Performed By: #### C UBLD, CMP, CBC #### [address] Eosinophils (Bld) [#/Vol] 0.0 10*3/uL Normal 0.0-0.45 [facility] Comment on above: Performed By: #### C UBLD, CMP, CBC #### [address] Eosinophils/100 WBC (Bld) 0.1 % Normal . [facility] Comment on above: Performed By: #### C UBLD, CMP, CBC #### [address] Erythrocyte distribution width (RBC) [Ratio] 17.2 % High 11.9-15.3 [facility] Comment on above: Performed By: #### C UBLD, CMP, CBC #### [address] Hematocrit (Bld) [Volume fraction] 37.9 % Normal 34.0-46.4 [facility] Comment on above: Performed By: #### C UBLD, CMP, CBC #### [address] Hemoglobin (Bld) [Mass/Vol] 11.8 g/dL Normal 11.8-15.4 [facility] Comment on above: Performed By: #### C UBLD, CMP, CBC #### [facility] [address] Lymphocytes (Bld) [#/Vol] 0.3 10*3/uL Low 1.00-4.8 [facility] Comment on above: Performed By: #### C UBLD, CMP, CBC #### [address] Lymphocytes/100 WBC (Bld) 1.8 % Normal . [facility] Comment on above: Performed By: #### C UBLD, CMP, CBC #### [address] MCH (RBC) [Entitic mass] 25.9 pg Normal 24.7-34.3 [facility] Comment on above: Performed By: #### C UBLD, CMP, CBC #### [address] MCV (RBC) [Entitic vol] 82.9 fL Normal 80-100 [facility] Comment on above: Performed By: #### C UBLD, CMP, CBC #### [address] Mean Corpuscular HGB Conc 31.2 g/dL Low 32.0-35.0 [facility] Comment on above: Performed By: #### C UBLD, CMP, CBC #### [address] Monocytes (Bld) [#/Vol] 1.0 10*3/uL High 0.0-0.8 [facility] Comment on above: Performed By: #### C UBLD, CMP, CBC #### [place] [address] [place] Monocytes/100 WBC (Bld) 6.9 % Normal . [facility] Comment on above: Performed By: #### C UBLD, CMP, CBC #### [address] Neutrophils (Bld) [#/Vol] 13.7 10*3/uL High 1.8-7.7 [facility] Comment on above: Performed By: #### C UBLD, CMP, CBC #### [address] Neutrophils/100 WBC (Bld) 90.6 % Normal . [facility] Comment on above: Performed By: #### C UBLD, CMP, CBC #### [address] NRBC% 0.2 /100{WBC} Normal 0-0.5 [facility] Comment on above: Performed By: #### C UBLD, CMP, CBC #### [address] Platelet mean volume (Bld) [Entitic vol] 6.9 fL Normal 6.3-10.7 [facility] Comment on above: Performed By: #### C UBLD, CMP, CBC #### [address] Platelets (Bld) [#/Vol] 443 10*3/uL Normal 150-450 [facility] Comment on above: Performed By: #### C UBLD, CMP, CBC #### [address] RBC (Bld) [#/Vol] 4.56 10*6/uL Normal 3.60-5.00 [facility] Comment on above: Performed By: #### C UBLD, CMP, CBC #### [address] WBC (Bld) [#/Vol] 15.1 10*3/uL High 3.8-11.6 [facility] Comment on above: Performed By: #### C UBLD, CMP, CBC #### [address] Basophils (Bld) [#/Vol] 0.0 10*3/uL Normal 0.0-0.2 [facility] Comment on above: Result Comment: PERF ORMED BY: [place] [address] PATHOLOGIST ARRESTING GEAR OPERATOR IAN ACE M.D. Performed By: #### C UBLD, CMP, CBC #### [address] Basophils/100 WBC (Bld) 0.2 % Normal . [facility] Comment on above: Performed By: #### C UBLD, CMP, CBC #### [address] Eosinophils (Bld) [#/Vol] 0.1 10*3/uL Normal 0.0-0.45 [facility] Comment on above: Performed By: #### C UBLD, CMP, CBC #### [address] Eosinophils/100 WBC (Bld) 0.7 % Normal . [facility] Comment on above: Performed By: #### C UBLD, CMP, CBC #### [address] Erythrocyte distribution width (RBC) [Ratio] 17.0 % High 11.9-15.3 [facility] Comment on above: Performed By: #### C UBLD, CMP, CBC #### [address] Hematocrit (Bld) [Volume fraction] 39.3 % Normal 34.0-46.4 [facility] Comment on above: Performed By: #### C UBLD, CMP, CBC #### [address] Hemoglobin (Bld) [Mass/Vol] 12.2 g/dL Normal 11.8-15.4 [facility] Comment on above: Performed By: #### C UBLD, CMP, CBC #### [address] Lymphocytes (Bld) [#/Vol] 1.0 10*3/uL Normal 1.00-4.8 [facility] Comment on above: Performed By: #### C UBLD, CMP, CBC #### [facility] [address] Lymphocytes/100 WBC (Bld) 6.0 % Normal . [facility] Comment on above: Performed By: #### C UBLD, CMP, CBC #### [facility] [address] MCH (RBC) [Entitic mass] 25.7 pg Normal 24.7-34.3 [facility] Comment on above: Performed By: #### C UBLD, CMP, CBC #### [address] MCV (RBC) [Entitic vol] 83.1 fL Normal 80-100 [facility] Comment on above: Performed By: #### C UBLD, CMP, CBC #### [address] Mean Corpuscular HGB Conc 30.9 g/dL Low 32.0-35.0 [facility] Comment on above: Performed By: #### C UBLD, CMP, CBC #### [address] Monocytes (Bld) [#/Vol] 1.4 10*3/uL High 0.0-0.8 [facility] Comment on above: Performed By: #### C UBLD, CMP, CBC #### [address] Monocytes/100 WBC (Bld) 7.8 % Normal . [facility] Comment on above: Performed By: #### C UBLD, CMP, CBC #### [place] [address] [place] Neutrophils (Bld) [#/Vol] 14.8 10*3/uL High 1.8-7.7 [facility] Comment on above: Performed By: #### C UBLD, CMP, CBC #### [address] Neutrophils/100 WBC (Bld) 85.3 % Normal . [facility] Comment on above: Performed By: #### C UBLD, CMP, CBC #### [address] NRBC% 0.1 /100{WBC} Normal 0-0.5 [facility] Comment on above: Performed By: #### C UBLD, CMP, CBC #### [address] Platelet mean volume (Bld) [Entitic vol] 7.2 fL Normal 6.3-10.7 [facility] Comment on above: Performed By: #### C UBLD, CMP, CBC #### [address] Platelets (Bld) [#/Vol] 488 10*3/uL High 150-450 [facility] Comment on above: Performed By: #### C UBLD, CMP, CBC #### [address] RBC (Bld) [#/Vol] 4.73 10*6/uL Normal 3.60-5.00 [facility] Comment on above: Performed By: #### C UBLD, CMP, CBC #### [address] WBC (Bld) [#/Vol] 17.4 10*3/uL High 3.8-11.6 [facility] Comment on above: Performed By: #### C UBLD, CMP, CBC #### [address] Comprehensive Metabolic Pane jeremy 04-11-2023 Albumin [Mass/Vol] 3.5 g/dL Normal 3.5-5.7 [facility] Comment on above: Performed By: #### C UBLD, CMP, CBC #### [address] Albumin/Globulin [Mass ratio] 0.9 {ratio} Normal [facility] Comment on above: Performed By: #### C UBLD, CMP, CBC #### [address] ALP [Catalytic activity/Vol] 96 U/L Normal 34-104 [facility] Comment on above: Performed By: #### C UBLD, CMP, CBC #### [facility] [address] ALT [Catalytic activity/Vol] 117 U/L High 7-52 [facility] Comment on above: Performed By: #### C UBLD, CMP, CBC #### [facility] [address] Anion gap [Moles/Vol] 12.4 mmol/L Normal 6.0-15.0 [facility] Comment on above: Performed By: #### C UBLD, CMP, CBC #### [facility] [address] AST [Catalytic activity/Vol] 96 U/L High 13-39 [facility] Comment on above: Performed By: #### C UBLD, CMP, CBC #### [address] Bilirubin [Mass/Vol] 0.3 mg/dL Normal 0.3-1.0 [facility] Comment on above: Performed By: #### C UBLD, CMP, CBC #### [address] Calcium [Mass/Vol] 9.6 mg/dL Normal 8.6-10.3 [facility] Comment on above: Performed By: #### C UBLD, CMP, CBC #### [address] Chloride [Moles/Vol] 102 mmol/L Normal 98-107 [facility] Comment on above: Performed By: #### C UBLD, CMP, CBC #### [facility] [address] [place] [address] CO2 [Moles/Vol] 16.8 mmol/L Low 21.0-31.0 [facility] Comment on above: Performed By: #### C UBLD, CMP, CBC #### [facility] [address] [place] [address] [place] Creatinine [Mass/Vol] 1.43 mg/dL High 0.60-1.20 [facility] Comment on above: Performed By: #### C UBLD, CMP, CBC #### [facility] [address] Creatinine Clr Calc Pharmacy 51.71 Normal [facility] Comment on above: Result Comment: PERF ORMED BY: [place] [address] PATHOLOGIST ARRESTING GEAR OPERATOR IAN ACE M.D. Performed By: #### C UBLD, CMP, CBC #### [facility] [address] GFR/1.73 sq M.predicted MDRD (S/P/Bld) [Vol rate/Area] 40.450 mL/min/{1.73_m2} [facility] Comment on above: Performed By: #### C UBLD, CMP, CBC #### [facility] [address] Globulin (S) [Mass/Vol] 3.8 g/dL Normal [facility] Comment on above: Performed By: #### C UBLD, CMP, CBC #### [address] Glucose [Mass/Vol] 143 mg/dL High 70-100 [facility] Comment on above: Result Comment: [place] Glucose Reference Range is dependent on time and content of last meal. Glucose of more than 200 mg/dL in a nonstressed, ambulatory subject supports the diagnosis of Diabetes Mellitus. ADA recommended reference range Performed By: #### C UBLD, CMP, CBC #### [facility] [address] Potassium [Moles/Vol] 4.2 mmol/L Normal 3.5-5.1 [facility] Comment on above: Performed By: #### C UBLD, CMP, CBC #### [facility] [address] Protein [Mass/Vol] 7.3 g/dL Normal 6.4-8.9 [facility] Comment on above: Performed By: #### C UBLD, CMP, CBC #### [facility] [address] [place] [address] [place] Sodium [Moles/Vol] 127 mmol/L Low 136-145 [facility] Comment on above: Performed By: #### C UBLD, CMP, CBC #### [facility] [address] Urea nitrogen [Mass/Vol] 47 mg/dL High 7-25 [facility] Comment on above: Performed By: #### C UBLD, CMP, CBC #### [facility] [address] Albumin [Mass/Vol] 3.6 g/dL Normal 3.5-5.7 [facility] Comment on above: Performed By: #### C UBLD, CMP, CBC #### [facility] [address] Albumin/Globulin [Mass ratio] 0.9 {ratio} Normal [facility] Comment on above: Performed By: #### C UBLD, CMP, CBC #### [facility] [address] ALP [Catalytic activity/Vol] 95 U/L Normal 34-104 [facility] Comment on above: Performed By: #### C UBLD, CMP, CBC #### [facility] [address] [place] [id number] [place] ALT [Catalytic activity/Vol] 108 U/L High 7-52 [facility] Comment on above: Performed By: #### C UBLD, CMP, CBC #### [facility] [address] [place] [id number] [place] Anion gap [Moles/Vol] 13.8 mmol/L Normal 6.0-15.0 [facility] Comment on above: Performed By: #### C UBLD, CMP, CBC #### [facility] [address] [place] [id number] [facility] AST [Catalytic activity/Vol] 87 U/L High 13-39 [facility] Comment on above: Performed By: #### C UBLD, CMP, CBC #### [facility] [address] Bilirubin [Mass/Vol] 0.3 mg/dL Normal 0.3-1.0 [facility] Comment on above: Performed By: #### C UBLD, CMP, CBC #### [facility] [address] Calcium [Mass/Vol] 9.5 mg/dL Normal 8.6-10.3 [facility] Comment on above: Performed By: #### C UBLD, CMP, CBC #### [facility] [address] Chloride [Moles/Vol] 102 mmol/L Normal 98-107 [facility] Comment on above: Performed By: #### C UBLD, CMP, CBC #### [facility] [address] CO2 [Moles/Vol] 15.4 mmol/L Low 21.0-31.0 [facility] Comment on above: Performed By: #### C UBLD, CMP, CBC #### [facility] [address] [place] [address] [place] Creatinine [Mass/Vol] 1.23 mg/dL High 0.60-1.20 [facility] Comment on above: Performed By: #### C UBLD, CMP, CBC #### [facility] [address] [place] [address] [place] Creatinine Clr Calc Pharmacy 60.12 [facility] Comment on above: Result Comment: PERF ORMED BY: [place] [address] PATHOLOGIST ARRESTING GEAR OPERATOR IAN ACE M.D. Performed By: #### C UBLD, CMP, CBC #### [place] [address] [place] GFR/1.73 sq M.predicted MDRD (S/P/Bld) [Vol rate/Area] 48.466 mL/min/{1.73_m2} [facility] Comment on above: Performed By: #### C UBLD, CMP, CBC #### [facility] [address] Globulin (S) [Mass/Vol] 3.8 g/dL Normal [facility] Comment on above: Performed By: #### C UBPREMA, CMP, CBC #### [facility] [address] Glucose [Mass/Vol] 143 mg/dL High 70-100 [facility] Comment on above: Result Comment: [place] Glucose Reference Range is dependent on time and content of last meal. Glucose of more than 200 mg/dL in a nonstressed, ambulatory subject supports the diagnosis of Diabetes Mellitus. ADA recommended reference range Performed By: #### C GIORGI CMP, CBC #### [address] Potassium [Moles/Vol] 4.2 mmol/L Normal 3.5-5.1 [facility] Comment on above: Performed By: #### C UBPREMA CMP, CBC #### [facility] [address] Protein [Mass/Vol] 7.4 g/dL Normal 6.4-8.9 [facility] Comment on above: Performed By: #### C UBPREMA CMP, CBC #### [place] [address] [place] Sodium [Moles/Vol] 127 mmol/L Low 136-145 [facility] Comment on above: Performed By: #### C UBPREMA CMP, CBC #### [facility] [address] [place] [address] [place] Urea nitrogen [Mass/Vol] 46 mg/dL High 7-25 [facility] Comment on above: Performed By: #### C UBPREMA, CMP, CBC #### [place] [address] [place] Creatine Kinaseon 04-11-2023 CK [Catalytic activity/Vol] 122 U/L Normal 30-223 [facility] Comment on above: Performed By: #### L ACTIC CMP, CBC #### [facility] [address] [place] [id number] [facility] Creatine kinase [Enzymatic a ctivity/volume] in Serum or PlasmaOrdered By: Laith Monte on 04-11-2023 CK [Catalytic activity/Vol] 122 U/L 30-223 [facility] ECG 12 lead ECGon 04-11-2023 ECG 12 lead ECG [facility] [address] [place] [address] [place] [address] Electrocardiograph Report Signed Patient: [place] Cesar MR#: [id number] : 1955 Acct:[id number] Age/Sex: 67 / F ADM Date: 04/10/23 Loc: Room: [address] [place] [address] Type: ADM IN Attending Dr: Malorie Nathan [...] previous ECGs available Confirmed by [facility]ON[facility]ORENO [id number] on 04/12/2023 9:24:12 AM Referred By: Electronically Signed By:LUISA HANKINS MD [facility] Transcribed By: MUS Signed By Luisa Hankins MD, [facility] 04/12/23 09 [facility] Glucose Glucometer (BldC) [M ass/Vol]Ordered By: Malorie Nathan on 04-11-2023 Glucose [Mass/Vol] 149 mg/dL [facility] Comment on above: [place] Glucose Refer ence Range is dependent on time and content of last meal. Glucose of more than 200 mg/dL in a nonstressed, ambulatory subject supports the diagnosis of Diabetes Mellitus. Glucose Poct Glucometerson 1 06-11-2022 Glucose [Mass/Vol] 149 mg/dL [facility] Comment on above: Result Comment: [place] Glucose Reference Range is dependent on time and content of last meal. Glucose of more than 200 mg/dL in a nonstressed, ambulatory subject supports the diagnosis of Diabetes Mellitus. PERFORMED BY: [place] [address] PATHOLOGIST ARRESTING GEAR OPERATOR IAN CAE M.D. Performed By: #### G LULS #### Point of Care testing , Laboratory - Chemistry and C hemistry - challengeOrdered By: Malorie Nathan on 04-11-2023 CO2 [Moles/Vol] 16.3 mmol/L 23.0-27.0 [facility] HCO3 (Bld) [Moles/Vol] 14.7 mmol/L 23.0-29.0 [facility] Lactate [Moles/volume] in Se rum or PlasmaOrdered By: Laith Monte on 04-11-2023 Lactate [Moles/Vol] 1.3 mmol/L 0.5-2.2 [facility] [facility] Lactic Acidon 04-11-2023 Lactate [Moles/Vol] 1.3 mmol/L Normal 0.5-2.2 [facility] Comment on above: Result Comment: PERF ORMED BY: [place] [address] PATHOLOGIST ARRESTING GEAR OPERATOR IAN ACE M.D. Performed By: #### C UBLD, CMP, CBC #### [facility] [address] [place] [address] Natriuretic peptide B [Mass/ Vol]Ordered By: Laith Monte on 04-11-2023 Natriuretic peptide B (Bld) [Mass/Vol] 181.0 pg/mL 5-100 [facility] No Panel InformationOrdered By: Malorie Nathan on 04-11-2023 Arterial Blood Base Excess -15.4 mmol/L -3.0-3.0 [facility] Arterial Blood Oxygen Content 7.8 mmol/L 6.6-9.7 [facility] Arterial Blood Oxygen Saturation 97.6 % 95.0-100.0 [facility] Arterial Blood Partial Pressure CO2 52.5 mm[Hg] 35.0-45.0 [facility] Arterial Blood Partial Pressure O2 105.6 mm[Hg] 80.0-100.0 [facility] Arterial Blood pH 7.07 7.35-7.45 [facility] Blood Gas Critical Value See comment [facility] Comment on above: Critical Value kim d on: 04/11/2023 at 08:56 Blood Gas Liter Flow 6 L/min [facility] Blood Gas Sample Site Right radial F [facility] FiO2 44 % [facility] Troponin I High Sensitivityo n 04-11-2023 Troponin I High Sensitivity 33.9 pg/mL High 0.0-15.0 [facility] Comment on above: Result Comment: PERF ORMED BY: [place] [address] PATHOLOGIST ARRESTING GEAR OPERATOR IAN ACE M.D. Performed By: #### L ACTIC, CMP, CBC #### [address] Troponin I.cardiac [Mass/vol ume] in Serum or Plasma by Detection limit <= 0.01 ng/Ordered By: Laith Monte on 04-11-2023 Troponin I.cardiac DL <= 0.01 ng/mL [Mass/Vol] 33.9 pg/mL 0.0-15.0 [facility] XR chest 1V portableon 04-11 XR chest 1V portable [facility] Main [place] [address] [place] [address] XRay Report Signed Patient: [place] Cesar MR#: [id number] : 1955 Acct:[id number] Age/Sex: 67 / F ADM Date: 04/10/23 Loc: Room: [address] [place] [address] Type: ADM IN Attending Dr: Malorie Nathan MD Copies to: DO Malorie Camacho [...] Crispin Sullivan M.D.04/11/2023 9:10 AM Dictation Location: [place] [address] Transcribed By: MARIA VICTORIA 04/11/23909 Dictated By: Crispin Sullivan II, MD 04/11/23907 Signed By: 04/11/23909 Normal [facility] Alanine aminotransferase [En zymatic activity/volume] in Serum or PlasmaOrdered By: Sarah Davey on 04-10-2023 ALT [Catalytic activity/Vol] 91 U/L 7-52 [facility] Albumin [Mass/volume] in Ser um or Plasma by Bromocresol green (BCG) dye binding methoOrdered By: Sarah Davey on 04-10-2023 Albumin BCG dye [Mass/Vol] 3.7 g/dL 3.5-5.7 [facility] Alkaline phosphatase [Enzyma tic activity/volume] in Serum or PlasmaOrdered By: Sarah Davey on 04-10-2023 ALP [Catalytic activity/Vol] 92 U/L 34-104 [facility] Aspartate aminotransferase [ Enzymatic activity/volume] in Serum or PlasmaOrdered By: Sarah Davey on 04-10-2023 AST [Catalytic activity/Vol] 74 U/L 13-39 [facility] Automated erythrocytes count in urine sediment (number/area)Ordered By: Sarah Davey on 04-10-2023 RBC Auto (Urine sed) [#/Area] 1-2 [HPF] 0-4 [facility] Automated leukocytes count i n urine sediment (number/area)Ordered By: Sarah Davey on 04-10-2023 WBC Auto (Urine sed) [#/Area] 10-19 [HPF] 0-4 [facility] Basic Metabolic Panelon 11-0 Anion gap [Moles/Vol] 14.6 mmol/L Normal 6.0-15.0 [facility] Comment on above: Performed By: #### C UBLD, CMP, CBC #### [facility] [address] Calcium [Mass/Vol] 9.5 mg/dL Normal 8.6-10.3 [facility] Comment on above: Performed By: #### C UBLD, CMP, CBC #### [facility] [address] Chloride [Moles/Vol] 102 mmol/L Normal 98-107 [facility] Comment on above: Performed By: #### C UBLD, CMP, CBC #### [facility] [address] CO2 [Moles/Vol] 14.3 mmol/L Low 21.0-31.0 [facility] Comment on above: Performed By: #### C UBLD, CMP, CBC #### [facility] [address] [place] [address] [place] Creatinine [Mass/Vol] 1.16 mg/dL Normal 0.60-1.20 [facility] Comment on above: Performed By: #### C UBLD, CMP, CBC #### [facility] [address] [place] [address] [place] Creatinine Clr Calc Pharmacy 63.71 [facility] Comment on above: Result Comment: PERF ORMED BY: [place] [address] PATHOLOGIST ARRESTING GEAR OPERATOR IAN ACE M.D. Performed By: #### C UBLD, CMP, CBC #### [place] [address] [place] GFR/1.73 sq M.predicted MDRD (S/P/Bld) [Vol rate/Area] 51.997 mL/min/{1.73_m2} [facility] Comment on above: Performed By: #### C UBLD, CMP, CBC #### [facility] [address] Glucose [Mass/Vol] 142 mg/dL High 70-100 [facility] Comment on above: Result Comment: [facility] Glucose Reference Range is dependent on time and content of last meal. Glucose of more than 200 mg/dL in a nonstressed, ambulatory subject supports the diagnosis of Diabetes Mellitus. ADA recommended reference range Performed By: #### C UBLD, CMP, CBC #### [facility] [address] Potassium [Moles/Vol] 3.9 mmol/L Normal 3.5-5.1 [facility] Comment on above: Performed By: #### C UBLD, CMP, CBC #### [facility] [address] Sodium [Moles/Vol] 127 mmol/L Low 136-145 [facility] Comment on above: Performed By: #### C UBLD, CMP, CBC #### [facility] [address] Urea nitrogen [Mass/Vol] 45 mg/dL High 7-25 [facility] Comment on above: Performed By: #### C UBLD, CMP, CBC #### [facility] [address] Basophils Auto (Bld) [#/Vol] Ordered By: Sarah Davey on 04-10-2023 Basophils (Bld) [#/Vol] 0.1 10*3/uL 0.0-0.2 [facility] Basophils/100 WBC Auto (Bld) Ordered By: Sarah Schwarzimmundo on 04-10-2023 Basophils/100 WBC (Bld) 0.5 % . [facility] Bilirubin Test strip Ql (U)O rdered By: Sarah Davey on 04-10-2023 Bilirubin Ql (U) Negative Negative [facility] Bilirubin.total [Mass/volume ] in Serum or PlasmaOrdered By: Sarah Davey on 04-10-2023 Bilirubin [Mass/Vol] 0.4 mg/dL 0.3-1.0 [facility] Blood Cultureon 04-10-2023 Bacteria identified Cx Nom (Bld) NO GROWTH 5 DAYS PERFORMED BY: [address] [place] [address] PATHOLOGIST ARRESTING GEAR OPERATOR IAN ACE M.D. Normal [facility] Comment on above: Performed By: #### G LULS #### Point of Care testing , C reactive protein [Mass/vol ume] in Serum or PlasmaOrdered By: Sarah Davey on 04-10-2023 CRP [Mass/Vol] 16.1 mg/dL 0.0-0.5 [facility] C-Reactive Proteinon 023 C-Reactive Protein 16.1 mg/dL High 0.0-0.5 [facility] Comment on above: Result Comment: PERF ORMED BY: [address] [place] [address] PATHOLOGIST ARRESTING GEAR OPERATOR IAN ACE M.D. Performed By: #### G LULS #### Point of Care testing , Calcium [Mass/volume] in Ser um or PlasmaOrdered By: Sarah Bullimore on 04-10-2023 Calcium [Mass/Vol] 10.0 mg/dL 8.6-10.3 [facility] Carbon dioxide, total [Moles /volume] in Serum or PlasmaOrdered By: Sarah Bullimore on 04-10-2023 CO2 [Moles/Vol] 15.4 mmol/L 21.0-31.0 [facility] Chloride [Moles/volume] in S marivel or PlasmaOrdered By: Sarah Bullimore on 04-10-2023 Chloride [Moles/Vol] 102 mmol/L 98-107 [facility] Color Auto (U)Ordered By: Tiffany Davey on 04-10-2023 Color (U) Yellow Yellow [facility] Complete Blood Count Auto Di ffon 04-10-2023 Basophils (Bld) [#/Vol] 0.1 10*3/uL Normal 0.0-0.2 [facility] Comment on above: Performed By: #### G LULS #### Point of Care testing , Basophils/100 WBC (Bld) 0.5 % Normal . [facility] Comment on above: Performed By: #### G KYAWLS #### Point of Care testing , Eosinophils (Bld) [#/Vol] 0.1 10*3/uL Normal 0.0-0.45 [facility] Comment on above: Performed By: #### G DAIANA #### Point of Care testing , Eosinophils/100 WBC (Bld) 1.0 % Normal . [facility] Comment on above: Performed By: #### G DAIANA #### Point of Care testing , Erythrocyte distribution width (RBC) [Ratio] 16.8 % High 11.9-15.3 [facility] Comment on above: Performed By: #### G DAIANA #### Point of Care testing , Hematocrit (Bld) [Volume fraction] 39.4 % Normal 34.0-46.4 [facility] Comment on above: Performed By: #### G KYAWLS #### Point of Care testing , Hemoglobin (Bld) [Mass/Vol] 12.7 g/dL Normal 11.8-15.4 [facility] Comment on above: Performed By: #### G DAIANA #### Point of Care testing , Lymphocytes (Bld) [#/Vol] 0.4 10*3/uL Low 1.00-4.8 [facility] Comment on above: Performed By: #### G DAIANA #### Point of Care testing , Lymphocytes/100 WBC (Bld) 3.2 % Normal . [facility] Comment on above: Performed By: #### G DAIANA #### Point of Care testing , MCH (RBC) [Entitic mass] 26.3 pg Normal 24.7-34.3 [facility] Comment on above: Performed By: #### G KYAWLS #### Point of Care testing , MCV (RBC) [Entitic vol] 81.8 fL Normal 80-100 [facility] Comment on above: Performed By: #### G DAIANA #### Point of Care testing , Mean Corpuscular HGB Conc 32.1 g/dL Normal 32.0-35.0 [facility] Comment on above: Performed By: #### G DAIANA #### Point of Care testing , Monocytes (Bld) [#/Vol] 0.6 10*3/uL Normal 0.0-0.8 [facility] Comment on above: Performed By: #### Jodi AHMADI #### Point of Care testing , Monocytes/100 WBC (Bld) 17.56 % Normal 0.00-20.00 [facility] Comment on above: Performed By: #### Jodi AHMADI #### Point of Care testing , Monocytes/100 WBC (Bld) 5.0 % Normal . [facility] Comment on above: Performed By: #### Jodi AHMADI #### Point of Care testing , Neutrophils (Bld) [#/Vol] 11.7 10*3/uL High 1.8-7.7 [facility] Comment on above: Performed By: #### Jodi AHMADI #### Point of Care testing , Neutrophils/100 WBC (Bld) 90.3 % Normal . [facility] Comment on above: Performed By: #### Jodi AHMADI #### Point of Care testing , NRBC% 0.1 /100{WBC} Normal 0-0.5 [facility] Comment on above: Performed By: #### Jodi AHMADI #### Point of Care testing , Platelet mean volume (Bld) [Entitic vol] 7.5 fL Normal 6.3-10.7 [facility] Comment on above: Performed By: #### Jodi AHMADI #### Point of Care testing , Platelets (Bld) [#/Vol] 474 10*3/uL High 150-450 [facility] Comment on above: Performed By: #### Jodi AHMADI #### Point of Care testing , RBC (Bld) [#/Vol] 4.82 10*6/uL Normal 3.60-5.00 [facility] Comment on above: Performed By: #### Jodi AHMADI #### Point of Care testing , WBC (Bld) [#/Vol] 13.0 10*3/uL High 3.8-11.6 [facility] Comment on above: Performed By: #### G DAIANA #### Point of Care testing , Comprehensive Metabolic Pane jeremy 04-10-2023 Albumin [Mass/Vol] 3.7 g/dL Normal 3.5-5.7 [facility] Comment on above: Performed By: #### G KYAWLS #### Point of Care testing , Albumin/Globulin [Mass ratio] 0.8 {ratio} Normal [facility] Comment on above: Performed By: #### G KYAWLS #### Point of Care testing , ALP [Catalytic activity/Vol] 92 U/L Normal 34-104 [facility] Comment on above: Performed By: #### Jodi AHMADI #### Point of Care testing , ALT [Catalytic activity/Vol] 91 U/L High 7-52 [facility] Comment on above: Performed By: #### Jodi AHMADI #### Point of Care testing , Anion gap [Moles/Vol] 15.3 mmol/L High 6.0-15.0 [facility] Comment on above: Performed By: #### Jodi AHMADI #### Point of Care testing , AST [Catalytic activity/Vol] 74 U/L High 13-39 [facility] Comment on above: Performed By: #### Jodi AHMADI #### Point of Care testing , Bilirubin [Mass/Vol] 0.4 mg/dL Normal 0.3-1.0 [facility] Comment on above: Performed By: #### Jodi AHMADI #### Point of Care testing , Calcium [Mass/Vol] 10.0 mg/dL Normal 8.6-10.3 [facility] Comment on above: Performed By: #### Jodi AHMADI #### Point of Care testing , Chloride [Moles/Vol] 102 mmol/L Normal 98-107 [facility] Comment on above: Performed By: #### G DAIANA #### Point of Care testing , CO2 [Moles/Vol] 15.4 mmol/L Low 21.0-31.0 [facility] Comment on above: Performed By: #### Jodi AHMADI #### Point of Care testing , Creatinine [Mass/Vol] 1.21 mg/dL High 0.60-1.20 [facility] Comment on above: Performed By: #### G KYAWLS #### Point of Care testing , Creatinine Clr Calc Pharmacy 60.88 [facility] Comment on above: Performed By: #### G KYAWLS #### Point of Care testing , GFR/1.73 sq M.predicted MDRD (S/P/Bld) [Vol rate/Area] 49.429 mL/min/{1.73_m2} [facility] Comment on above: Performed By: #### G KYAWLS #### Point of Care testing , Globulin (S) [Mass/Vol] 4.5 g/dL [facility] Comment on above: Performed By: #### G KYAWLS #### Point of Care testing , Glucose [Mass/Vol] 109 mg/dL High 70-100 [facility] Comment on above: Result Comment: [facility] Glucose Reference Range is dependent on time and content of last meal. Glucose of more than 200 mg/dL in a nonstressed, ambulatory subject supports the diagnosis of Diabetes Mellitus. ADA recommended reference range Performed By: #### G KYAWLS #### Point of Care testing , Potassium [Moles/Vol] 3.7 mmol/L Normal 3.5-5.1 [facility] Comment on above: Performed By: #### G KYAWLS #### Point of Care testing , Protein [Mass/Vol] 8.2 g/dL Normal 6.4-8.9 [facility] Comment on above: Performed By: #### G KYAWLS #### Point of Care testing , Sodium [Moles/Vol] 129 mmol/L Low 136-145 [facility] Comment on above: Performed By: #### G KYAWLS #### Point of Care testing , Urea nitrogen [Mass/Vol] 43 mg/dL High 7-25 [facility] Comment on above: Performed By: #### G KYAWLS #### Point of Care testing , Creatinine [Mass/volume] in Serum or PlasmaOrdered By: Sarah Davey on 04-10-2023 Creatinine [Mass/Vol] 1.21 mg/dL 0.60-1.20 [facility] Creatinine [Mass/volume] in UrineOrdered By: Neeraj Farrell on 04-10-2023 Creatinine (U) [Mass/Vol] 131.0 mg/dL 11.0-20.0 [facility] Creatinine, Urine (Random)on 04-10-2023 Creatinine, Urine (Random) 131.0 mg/dL High 11.0-20.0 [facility] Comment on above: Result Comment: PERF ORMED BY: [place] [address] PATHOLOGIST ARRESTING GEAR OPERATOR IAN ACE M.D. Performed By: #### C UBLD, CMP, CBC #### [facility] [address] [place] [address] [place] Dipstick and Microscopicon 1 06-10-2022 Appearance (U) Clear Normal Clear [facility] Comment on above: Order Comment: Name Collection Type:: Clean-Voided Midstream Performed By: #### C UBLD, CMP, CBC #### [facility] [address] [place] [address] [place] Bacteria,Urine None Seen Normal None Seen [facility] Comment on above: Order Comment: Name Collection Type:: Clean-Voided Midstream Performed By: #### C UBLD, CMP, CBC #### [facility] [address] [place] [address] [place] Bilirubin,Urine Negative Normal Negative [facility] Comment on above: Order Comment: Name Collection Type:: Clean-Voided Midstream Performed By: #### C UBLD, CMP, CBC #### [facility] [address] [place] [id number] [place] Color (U) Yellow Normal Yellow [facility] Comment on above: Order Comment: Name Collection Type:: Clean-Voided Midstream Performed By: #### C UBLD, CMP, CBC #### [facility] [address] [place] [id number] [place] Glucose Ql (U) Normal Normal Normal [facility] Comment on above: Order Comment: Name Collection Type:: Clean-Voided Midstream Performed By: #### C UBLD, CMP, CBC #### [address] Hyaline Casts,Urine 0-8 Normal 0-8 [facility] Comment on above: Order Comment: Name Collection Type:: Clean-Voided Midstream Performed By: #### C UBLD, CMP, CBC #### [address] Ketones Ql (U) Trace High Negative [facility] Comment on above: Order Comment: Name Collection Type:: Clean-Voided Midstream Performed By: #### C UBLD, CMP, CBC #### [address] Leukocyte esterase Test strip Ql (U) 1+ High Negative [facility] Comment on above: Order Comment: Name Collection Type:: Clean-Voided Midstream Performed By: #### C UBLD, CMP, CBC #### [address] Nitrite,Urine Negative Normal Negative [facility] Comment on above: Order Comment: Name Collection Type:: Clean-Voided Midstream Performed By: #### C UBLD, CMP, CBC #### [address] Occult Blood,Urine Negative Normal Negative [facility] Comment on above: Order Comment: Name Collection Type:: Clean-Voided Midstream Result Comment: PERF ORMED BY: [place] [address] PATHOLOGIST ARRESTING GEAR OPERATOR IAN ACE M.D. Performed By: #### C UBLD, CMP, CBC #### [address] pH (U) 6.0 [pH] Normal 5.0-9.0 [facility] Comment on above: Order Comment: Name Collection Type:: Clean-Voided Midstream Performed By: #### C UBLD, CMP, CBC #### [address] Protein (U) [Mass/Vol] 100 mg/dL High Negative [facility] Comment on above: Order Comment: Name Collection Type:: Clean-Voided Midstream Performed By: #### C UBLD, CMP, CBC #### [address] RBC,Urine 1-2 Normal 0-4 [facility] Comment on above: Order Comment: Name Collection Type:: Clean-Voided Midstream Performed By: #### C UBLD, CMP, CBC #### [address] Specificy [place],Urine 1.034 High 1.001-1.03 0 [facility] Comment on above: Order Comment: Name Collection Type:: Clean-Voided Midstream Performed By: #### C UBLD, CMP, CBC #### [address] Squamous Epithelial Cell,Urine 3-4 High 0-2 [facility] Comment on above: Order Comment: Name Collection Type:: Clean-Voided Midstream Performed By: #### C UBLD, CMP, CBC #### [address] Urobilinogen,Urine Normal Normal Normal [facility] Comment on above: Order Comment: Name Collection Type:: Clean-Voided Midstream Performed By: #### C UBLD, CMP, CBC #### [facility] [address] [place] [address] [place] WBC,Urine 10-19 High 0-4 [facility] Comment on above: Order Comment: Name Collection Type:: Clean-Voided Midstream Performed By: #### C UBLD, CMP, CBC #### [facility] [address] [place] [address] Yeast,Urine None Seen Normal None Seen [facility] Comment on above: Order Comment: Name Collection Type:: Clean-Voided Midstream Result Comment: PERF ORMED BY: [place] [address] PATHOLOGIST ARRESTING GEAR OPERATOR IAN ACE M.D. Performed By: #### C UBLD, CMP, CBC #### [facility] [address] [place] [address] [place] Eosinophils Auto (Bld) [#/Vo l]Ordered By: Sarah Schwarzimore on 04-10-2023 Eosinophils (Bld) [#/Vol] 0.1 10*3/uL 0.0-0.45 [facility] Eosinophils/100 WBC Auto (Bl d)Ordered By: Sarah Bullimore on 04-10-2023 Eosinophils/100 WBC (Bld) 1.0 % . [facility] Erythrocyte Sedimentation Ra emery 04-10-2023 ESR (Bld) [Velocity] mm/h High 0-29 [facility] Comment on above: Result Comment: PERF ORMED BY: [facility] [address] [place] [address] PATHOLOGIST ARRESTING GEAR OPERATOR IAN ACE M.D. Performed By: #### G DAIANA #### Point of Care testing , Erythrocyte distribution wid th Auto (RBC) [Ratio]Ordered By: Sarah Schwarzimmundo on 04-10-2023 Erythrocyte distribution width (RBC) [Ratio] 16.8 % 11.9-15.3 [facility] Erythrocyte sedimentation ra te by Photometric methodOrdered By: Sarah Schwarzimore on 04-10-2023 ESR Photometric method (Bld) [Velocity] > 130 mm/hr 0-29 [facility] Globulin Calc (S) [Mass/Vol] Ordered By: Sarah Schwarzimore on 04-10-2023 Globulin (S) [Mass/Vol] 4.5 g/dL [facility] Glucose [Mass/volume] in Ser um or PlasmaOrdered By: Sarah Hammerore on 04-10-2023 Glucose [Mass/Vol] 109 mg/dL 70-100 [facility] Comment on above: ADA recommended refe rence rangeRandom Glucose Reference Range is dependent on time and content of last meal. Glucose of more than 200 mg/dL in a nonstressed, ambulatory subject supports the diagnosis of Diabetes Mellitus. Hematocrit Auto (Bld) [Volum e fraction]Ordered By: Sarah Schwarzimore on 04-10-2023 Hematocrit (Bld) [Volume fraction] 39.4 % 34.0-46.4 [facility] Hemoglobin [Mass/volume] in BloodOrdered By: Sarah Davey on 04-10-2023 Hemoglobin (Bld) [Mass/Vol] 12.7 g/dL 11.8-15.4 [facility] Ketones Auto test strip (U) [Mass/Vol]Ordered By: Sarah Davey on 04-10-2023 Ketones (U) [Mass/Vol] Trace Negative [facility] - UrinalysisOrder ed By: Sarahros Davey on 04-10-2023 Hyaline casts LM Ql (Urine sed) 0-8 [LPF] 0-8 [facility] Lactate [Moles/volume] in Se rum or PlasmaOrdered By: Sarahros Davey on 04-10-2023 Lactate [Moles/Vol] 1.3 mmol/L Normal 0.5-2.2 [facility] Comment on above: Result Comment: PERF ORMED BY: [place] [address] PATHOLOGIST ARRESTING GEAR OPERATOR IAN ACE M.D. Performed By: #### C UBLD, CMP, CBC #### [address] Leukocytes [#/volume] correc julia for nucleated erythrocytes in Blood by Automated counOrdered By: Sarahros Davey on 04-10-2023 WBC corrected for nucl RBC Auto (Bld) [#/Vol] 13.0 10*3/uL 3.8-11.6 [facility] Lymphocytes Auto (Bld) [#/Vo l]Ordered By: Sarahros Davey on 04-10-2023 Lymphocytes (Bld) [#/Vol] 0.4 10*3/uL 1.00-4.8 [facility] Lymphocytes/100 WBC Auto (Bl d)Ordered By: Sarahros Davey on 04-10-2023 Lymphocytes/100 WBC (Bld) 3.2 % . [facility] MCH Auto (RBC) [Entitic mass ]Ordered By: Sarah Davey on 04-10-2023 MCH (RBC) [Entitic mass] 26.3 pg 24.7-34.3 [facility] MCHC Auto (RBC) [Mass/Vol]Or dered By: Sarah Schwarzimore on 04-10-2023 MCHC (RBC) [Mass/Vol] 32.1 g/dL 32.0-35.0 [facility] MCV Auto (RBC) [Entitic vol] Ordered By: Sarah Schwarzimore on 04-10-2023 MCV (RBC) [Entitic vol] 81.8 fL 80-100 [facility] Monocyte distribution width [Entitic volume] in Blood by AutomatedOrdered By: Sarah Davey on 04-10-2023 Monocyte distribution width Auto (Bld) [Entitic vol] 17.56 % 0.00-20.00 [facility] Monocytes Auto (Bld) [#/Vol] Ordered By: Sarah Davey on 04-10-2023 Monocytes (Bld) [#/Vol] 0.6 10*3/uL 0.0-0.8 [facility] Monocytes/100 WBC Auto (Bld) Ordered By: Sarah Schwarzimore on 04-10-2023 Monocytes/100 WBC (Bld) 5.0 % . [facility] Neutrophils Auto (Bld) [#/Vo l]Ordered By: Sarahros Hammerore on 04-10-2023 Neutrophils (Bld) [#/Vol] 11.7 10*3/uL 1.8-7.7 [facility] Neutrophils/100 WBC Auto (Bl d)Ordered By: Sarah Davey on 04-10-2023 Neutrophils/100 WBC (Bld) 90.3 % . [facility] Nitrite Test strip Ql (U)Ord ered By: Sarah Davey on 04-10-2023 Nitrite Ql (U) Negative Negative [facility] No Panel InformationOrdered By: Sarah Davey on 04-10-2023 Estimated GFR (CKD-EPI) 49.429 mL/Min [facility] Creatinine Clearance (Chem 60.88 [facility] Nucleated erythrocytes [Pres ence] in Blood by Automated countOrdered By: Sarah Davey on 04-10-2023 Nucleated RBC Auto Ql (Bld) 0.1 /100{WBC} 0-0.5 [facility] Platelet mean volume Auto (B ld) [Entitic vol]Ordered By: Sarah Bullimore on 04-10-2023 Platelet mean volume (Bld) [Entitic vol] 7.5 fL 6.3-10.7 [facility] Platelets Auto (Bld) [#/Vol] Ordered By: Sarah Bullimore on 04-10-2023 Platelets (Bld) [#/Vol] 474 10*3/uL 150-450 [facility] Potassium [Moles/volume] in Serum or PlasmaOrdered By: Sarah Bullimore on 04-10-2023 Potassium [Moles/Vol] 3.7 mmol/L 3.5-5.1 [facility] Protein Auto test strip (U) [Mass/Vol]Ordered By: Sarah Bullimore on 04-10-2023 Protein (U) [Mass/Vol] 100 mg/dL Negative Fi [facility] Protein [Mass/volume] in Ser um or PlasmaOrdered By: Sarah Bullimore on 04-10-2023 Protein [Mass/Vol] 8.2 g/dL 6.4-8.9 [facility] RBC Auto (Bld) [#/Vol]Ordere d By: Sarah Bullimore on 04-10-2023 RBC (Bld) [#/Vol] 4.82 10*6/uL 3.60-5.00 [facility] Serum or plasma albumin/glob ulin mass ratioOrdered By: Sarah Bullimore on 04-10-2023 Albumin/Globulin [Mass ratio] 0.8 {ratio} [facility] Serum or plasma anion gap de terminationOrdered By: Sarah Bullimore on 04-10-2023 Anion gap [Moles/Vol] 15.3 mmol/L 6.0-15.0 [facility] Sodium [Moles/volume] in Ser um or PlasmaOrdered By: Sarah Bullimore on 04-10-2023 Sodium [Moles/Vol] 129 mmol/L 136-145 [facility] Sodium [Moles/volume] in Uri neOrdered By: Neeraj Farrell on 04-10-2023 Sodium (U) [Moles/Vol] mmol/L [facility] Comment on above: No reference range e stablished Sodium, Urineon 04-10-2023 Sodium, Urine < 10.0 Normal [facility] Comment on above: Result Comment: No r eference range established Performed By: #### C UBLD, CMP, CBC #### [facility] [address] Specific gravity Auto test s trip (U) [Rel density]Ordered By: Sarah Davey on 04-10-2023 Specific gravity (U) [Rel density] 1.034 1.001-1.03 0 [facility] Squamous epithelial cells de tection in urine sediment by light microscopyOrdered By: Sarah Davey on 04-10-2023 Epithelial cells.squamous LM Ql (Urine sed) 3-4 [HPF] 0-2 [facility] Superficial Wound Cultureon 04-10-2023 Superficial Wound Culture ORGANISM: Klebsiella oxytoca (O:KLEOXY) Quantity of Growth Moderate Growth ORGANISM: Providencia rettgeri (O:PRORET) Quantity of Growth Moderate Growth ORGANISM: Gram Negative Bacilli (O:GNB) Comments . Quantity of Growth Heavy Growth Send Test to Ref. Lab Sent to [facility] for ID/PASTORA ORGANISM: Morganella morganii (O:MORMOR) Carbapenemase [Type] in Isolate by Carba SETTER HELPER Organism negative for carbapenemase (CRE) Quantity of [...] = Intermediate; R = Resistant Performed at: [address] [id number] Head Cook: Mohsen Mccarthy PhD, Phone: [phone] Aerobic PASTORA Charge (NMIC56) SUSCEPTIBILITY ORGANISM: O:KLEOXY [...] RESISTANT TO ALL B-LACTAM DRUGS. PERFORMED BY: [place] [address] PATHOLOGIST ARRESTING GEAR OPERATOR IAN ACE M.D. [facility] Comment on above: Performed By: #### C USUP #### [address] Superficial Wound Culture ORGANISM: Serratia marcescens (O:SERMAR) Quantity of Growth Heavy Growth ORGANISM: Gram Negative Bacilli (O:GNB) Comments . Quantity of Growth Heavy Growth Send Test to Ref. Lab Sent to [facility] for ID/PASTORA Organism #2 identified by [facility] as Nonlactose fermenting gram negative matt. Antibiotic Amikacin S Aztreonam R Cefepime R Cefotaxime R Ceftazidime R Ceftriaxone R Ciprofloxacin R Gentamicin S Imipenem R Levofloxacin S Meropenem S Piperacillin/Tazobactam R Tetracycline S Ticarcillin/Clavulanate S Tobramycin S Trimethoprim/Sulfa S S = Susceptible; I = Intermediate; R = Resistant Performed at: [address] [id number] Head Cook: Mohsen Mccarthy PhD, Phone: [phone] Aerobic PASTORA Charge (NMIC56) SUSCEPTIBILITY ORGANISM: O:SERMAR [...] RESISTANT TO ALL B-LACTAM DRUGS. PERFORMED BY: [place] [address] PATHOLOGIST ARRESTING GEAR OPERATOR IAN ACE M.D. [facility] Comment on above: Performed By: #### C UBLD, CMP, CBC #### [facility] [address] Urea nitrogen [Mass/volume] in Serum or PlasmaOrdered By: Sarah Davey on 04-10-2023 Urea nitrogen [Mass/Vol] 43 mg/dL 12-30 [facility] Urine Cultureon 04-10-2023 Bacteria identified Cx Nom (U) >100,000 colonies/ml mixed bacterial skin contaminants 2 Days PERFORMED BY: [place] [address] PATHOLOGIST ARRESTING GEAR OPERATOR IAN ACE M.D. [facility] Comment on above: Performed By: #### C UBLD, CMP, CBC #### [facility] [address] Urine bacteria detection by automated methodOrdered By: Sarah Davey on 04-10-2023 Bacteria Auto Ql (U) None seen None Seen [facility] Urine clarity by refractomet ry automatedOrdered By: Sarah Davey on 04-10-2023 Clarity Refractometry automated (U) Clear Clear [facility] Urine culture routineOrdered By: Sarah Davey on 04-10-2023 Bacteria identified Cx Nom (U) 2 Days [facility] Urine glucose measurement by automated test strip (mass/volume)Ordered By: Sarah Davey on 04-10-2023 Glucose Auto test strip (U) [Mass/Vol] Normal mg/dL Normal [facility] Urine hemoglobin detection b y automated test stripOrdered By: Sarah Davey on 04-10-2023 Hemoglobin Auto test strip Ql (U) Negative Negative [facility] Urine leukocyte esterase det ection by automated test stripOrdered By: Sarah Davey on 04-10-2023 Leukocyte esterase Auto test strip Ql (U) 1+ Negative [facility] Urobilinogen Auto test strip (U) [Mass/Vol]Ordered By: Sarah Davey on 04-10-2023 Urobilinogen (U) [Mass/Vol] Normal mg/dL Normal [facility] WBC Auto (Bld) [#/Vol]Ordere d By: Sarah Davey on 04-10-2023 WBC (Bld) [#/Vol] 13.0 10*3/uL 3.8-11.6 [facility] Yeast detection in urine sed iment by light microscopyOrdered By: Sarah Davey on 04-10-2023 Yeast LM Ql (Urine sed) None seen [HPF] None Seen [facility] pH Auto test strip (U)Ordere d By: Sarah Davey on 04-10-2023 pH (U) 6.0 [pH] 5.0-9.0 [facility] XR tibia/fibula BIon 10-31-2 023 XR tibia/fibula BI [facility] Main [place] [id number] XRay Report Signed Patient: [place] Cesar MR#: [id number] : 1955 Acct:[id number] Age/Sex: 67 / F ADM Date: 04/07/23 Loc: ER Room: Type: [facility] ER Attending Dr: Copies to: Jhonatan Crowell [...] Johnson Jr., D.O.04/07/2023 9:00 AM Dictation Location: [place] [address] Transcribed By: [facility] 04/07/23899 Dictated By: Andrew Johnson Jr, DO 04/07/23 0859 Signed By: 04/07/23 09 Normal [facility] Alanine aminotransferase [En zymatic activity/volume] in Serum or PlasmaOrdered By: Chon Valdez on 12-31-2022 ALT [Catalytic activity/Vol] 29 U/L 7-52 [facility] Albumin [Mass/volume] in Ser um or Plasma by Bromocresol green (BCG) dye binding methoOrdered By: Chon Valdez on 12-31-2022 Albumin BCG dye [Mass/Vol] 3.7 g/dL 3.5-5.7 [facility] Alkaline phosphatase [Enzyma tic activity/volume] in Serum or PlasmaOrdered By: Chon Valdez on 12-31-2022 ALP [Catalytic activity/Vol] 97 U/L 34-104 [facility] Aspartate aminotransferase [ Enzymatic activity/volume] in Serum or PlasmaOrdered By: Chon Valdez on 12-31-2022 AST [Catalytic activity/Vol] 34 U/L 13-39 [facility] Basophils Auto (Bld) [#/Vol] Ordered By: Chon Valdez on 12-31-2022 Basophils (Bld) [#/Vol] 0.0 10*3/uL 0.0-0.2 [facility] Basophils/100 WBC Auto (Bld) Ordered By: Chon Valdez on 12-31-2022 Basophils/100 WBC (Bld) 0.4 % . [facility] Bilirubin.total [Mass/volume ] in Serum or PlasmaOrdered By: Chon Valdez on 12-31-2022 Bilirubin [Mass/Vol] 0.3 mg/dL 0.3-1.0 [facility] Calcium [Mass/volume] in Ser um or PlasmaOrdered By: Chon Valdez on 12-31-2022 Calcium [Mass/Vol] 9.0 mg/dL 8.6-10.3 [facility] Carbon dioxide, total [Moles /volume] in Serum or PlasmaOrdered By: Chon Valdez on 12-31-2022 CO2 [Moles/Vol] 24.9 mmol/L 21.0-31.0 [facility] Chloride [Moles/volume] in S marivel or PlasmaOrdered By: Chon Valdez on 12-31-2022 Chloride [Moles/Vol] 106 mmol/L 98-107 [facility] Complete Blood Count Auto Di ffon 12-31-2022 Basophils (Bld) [#/Vol] 0.0 10*3/uL Normal 0.0-0.2 [facility] Comment on above: Result Comment: PERF ORMED BY: [facility] [address] [place] [address] PATHOLOGIST ARRESTING GEAR OPERATOR IAN ACE M.D. Performed By: #### G LULS #### Point of Care testing , Basophils/100 WBC (Bld) 0.4 % Normal . [facility] Comment on above: Performed By: #### G LULS #### Point of Care testing , Eosinophils (Bld) [#/Vol] 0.3 10*3/uL Normal 0.0-0.45 [facility] Comment on above: Performed By: #### G KYAWLS #### Point of Care testing , Eosinophils/100 WBC (Bld) 3.9 % Normal . [facility] Comment on above: Performed By: #### G KYAWLS #### Point of Care testing , Erythrocyte distribution width (RBC) [Ratio] 17.3 % High 11.9-15.3 [facility] Comment on above: Performed By: #### G KYAWLS #### Point of Care testing , Hematocrit (Bld) [Volume fraction] 35.9 % Normal 34.0-46.4 [facility] Comment on above: Performed By: #### G KYAWLS #### Point of Care testing , Hemoglobin (Bld) [Mass/Vol] 11.6 g/dL Low 11.8-15.4 [facility] Comment on above: Performed By: #### G KYAWLS #### Point of Care testing , Lymphocytes (Bld) [#/Vol] 0.8 10*3/uL Low 1.00-4.8 [facility] Comment on above: Performed By: #### G KYAWLS #### Point of Care testing , Lymphocytes/100 WBC (Bld) 9.3 % Normal . [facility] Comment on above: Performed By: #### G KYAWLS #### Point of Care testing , MCH (RBC) [Entitic mass] 26.1 pg Normal 24.7-34.3 [facility] Comment on above: Performed By: #### G KYAWLS #### Point of Care testing , MCV (RBC) [Entitic vol] 80.5 fL Normal 80-100 [facility] Comment on above: Performed By: #### G KYAWLS #### Point of Care testing , Mean Corpuscular HGB Conc 32.5 g/dL Normal 32.0-35.0 [facility] Comment on above: Performed By: #### G KYAWLS #### Point of Care testing , Monocytes (Bld) [#/Vol] 0.9 10*3/uL High 0.0-0.8 [facility] Comment on above: Performed By: #### G DAIANA #### Point of Care testing , Monocytes/100 WBC (Bld) 19.53 % Normal 0.00-20.00 [facility] Comment on above: Performed By: #### Jodi AHMADI #### Point of Care testing , Monocytes/100 WBC (Bld) 11.2 % Normal . [facility] Comment on above: Performed By: #### Jodi AHMADI #### Point of Care testing , Neutrophils (Bld) [#/Vol] 6.1 10*3/uL Normal 1.8-7.7 [facility] Comment on above: Performed By: #### G DAIANA #### Point of Care testing , Neutrophils/100 WBC (Bld) 75.2 % Normal . [facility] Comment on above: Performed By: #### G DAIANA #### Point of Care testing , NRBC% 0.1 /100{WBC} Normal 0-0.5 [facility] Comment on above: Performed By: #### Jodi AHMADI #### Point of Care testing , Platelet mean volume (Bld) [Entitic vol] 7.9 fL Normal 6.3-10.7 [facility] Comment on above: Performed By: #### Jodi AHMADI #### Point of Care testing , Platelets (Bld) [#/Vol] 258 10*3/uL Normal 150-450 [facility] Comment on above: Performed By: #### Jodi AHMADI #### Point of Care testing , RBC (Bld) [#/Vol] 4.46 10*6/uL Normal 3.60-5.00 [facility] Comment on above: Performed By: #### Jodi AHMADI #### Point of Care testing , WBC (Bld) [#/Vol] 8.2 10*3/uL Normal 3.8-11.6 [facility] Comment on above: Performed By: #### Jodi AHMADI #### Point of Care testing , Comprehensive Metabolic Pane jeremy 12-31-2022 Albumin [Mass/Vol] 3.7 g/dL Normal 3.5-5.7 [facility] Comment on above: Performed By: #### G DAIANA #### Point of Care testing , Albumin/Globulin [Mass ratio] 1.3 {ratio} [facility] Comment on above: Performed By: #### G DAIANA #### Point of Care testing , ALP [Catalytic activity/Vol] 97 U/L Normal 34-104 [facility] Comment on above: Performed By: #### Jodi AHMADI #### Point of Care testing , ALT [Catalytic activity/Vol] 29 U/L Normal 7-52 [facility] Comment on above: Performed By: #### Jodi AHMADI #### Point of Care testing , Anion gap [Moles/Vol] 11.3 mmol/L Normal 6.0-15.0 [facility] Comment on above: Performed By: #### Jodi AHMADI #### Point of Care testing , AST [Catalytic activity/Vol] 34 U/L Normal 13-39 [facility] Comment on above: Performed By: #### Jodi AHMADI #### Point of Care testing , Bilirubin [Mass/Vol] 0.3 mg/dL Normal 0.3-1.0 [facility] Comment on above: Performed By: #### Jodi AHMADI #### Point of Care testing , Calcium [Mass/Vol] 9.0 mg/dL Normal 8.6-10.3 [facility] Comment on above: Performed By: #### Jodi AHMADI #### Point of Care testing , Chloride [Moles/Vol] 106 mmol/L Normal 98-107 [facility] Comment on above: Performed By: #### Jodi AHMADI #### Point of Care testing , CO2 [Moles/Vol] 24.9 mmol/L Normal 21.0-31.0 [facility] Comment on above: Performed By: #### Jodi AHMADI #### Point of Care testing , Creatinine [Mass/Vol] 0.75 mg/dL Normal 0.60-1.20 [facility] Comment on above: Performed By: #### G DAIANA #### Point of Care testing , Creatinine Clr Calc Pharmacy 97.74 [facility] Comment on above: Result Comment: PERF ORMED BY: [facility] [place] [address] PATHOLOGIST ARRESTING GEAR OPERATOR IAN ACE M.D. Performed By: #### G KYAWLS #### Point of Care testing , GFR/1.73 sq M.predicted MDRD (S/P/Bld) [Vol rate/Area] mL/min/{1.73_m2} [facility] Comment on above: Performed By: #### G LULS #### Point of Care testing , Globulin (S) [Mass/Vol] 2.9 g/dL Normal [facility] Comment on above: Performed By: #### G LULS #### Point of Care testing , Glucose [Mass/Vol] 108 mg/dL High 70-100 [facility] Comment on above: Result Comment: [facility] Glucose Reference Range is dependent on time and content of last meal. Glucose of more than 200 mg/dL in a nonstressed, ambulatory subject supports the diagnosis of Diabetes Mellitus. ADA recommended reference range Performed By: #### G LULS #### Point of Care testing , Potassium [Moles/Vol] 4.2 mmol/L Normal 3.5-5.1 [facility] Comment on above: Performed By: #### G LULS #### Point of Care testing , Protein [Mass/Vol] 6.6 g/dL Normal 6.4-8.9 [facility] Comment on above: Performed By: #### G LULS #### Point of Care testing , Sodium [Moles/Vol] 138 mmol/L Normal 136-145 [facility] Comment on above: Performed By: #### G LULS #### Point of Care testing , Urea nitrogen [Mass/Vol] 36 mg/dL High 7-25 [facility] Comment on above: Performed By: #### G LULS #### Point of Care testing , Creatinine [Mass/volume] in Serum or PlasmaOrdered By: Chon Valdez on 12-31-2022 Creatinine [Mass/Vol] 0.75 mg/dL 0.60-1.20 [facility] Eosinophils Auto (Bld) [#/Vo l]Ordered By: Chon Valdez on 12-31-2022 Eosinophils (Bld) [#/Vol] 0.3 10*3/uL 0.0-0.45 [facility] Eosinophils/100 WBC Auto (Bl d)Ordered By: Chon Valdez on 12-31-2022 Eosinophils/100 WBC (Bld) 3.9 % . [facility] Erythrocyte distribution wid th Auto (RBC) [Ratio]Ordered By: Chon Valdez on 12-31-2022 Erythrocyte distribution width (RBC) [Ratio] 17.3 % 11.9-15.3 [facility] Globulin Calc (S) [Mass/Vol] Ordered By: Chon Valdez on 12-31-2022 Globulin (S) [Mass/Vol] 2.9 g/dL [facility] Glucose [Mass/volume] in Ser um or PlasmaOrdered By: Chon Valdez on 12-31-2022 Glucose [Mass/Vol] 108 mg/dL 70-100 [facility] Comment on above: ADA recommended refe rence rangeRandom Glucose Reference Range is dependent on time and content of last meal. Glucose of more than 200 mg/dL in a nonstressed, ambulatory subject supports the diagnosis of Diabetes Mellitus. Hematocrit Auto (Bld) [Volum e fraction]Ordered By: Chon Valdez on 12-31-2022 Hematocrit (Bld) [Volume fraction] 35.9 % 34.0-46.4 [facility] Hemoglobin [Mass/volume] in BloodOrdered By: Chon Valdez on 12-31-2022 Hemoglobin (Bld) [Mass/Vol] 11.6 g/dL 11.8-15.4 [facility] Leukocytes [#/volume] correc julia for nucleated erythrocytes in Blood by Automated counOrdered By: Chon Valdez on 12-31-2022 WBC corrected for nucl RBC Auto (Bld) [#/Vol] 8.2 10*3/uL 3.8-11.6 [facility] Lymphocytes Auto (Bld) [#/Vo l]Ordered By: Chon Valdez on 12-31-2022 Lymphocytes (Bld) [#/Vol] 0.8 10*3/uL 1.00-4.8 [facility] Lymphocytes/100 WBC Auto (Bl d)Ordered By: Chon Valdez on 12-31-2022 Lymphocytes/100 WBC (Bld) 9.3 % . [facility] MCH Auto (RBC) [Entitic mass ]Ordered By: Chon Valdez on 12-31-2022 MCH (RBC) [Entitic mass] 26.1 pg 24.7-34.3 [facility] MCHC Auto (RBC) [Mass/Vol]Or dered By: Chon Valdez on 12-31-2022 MCHC (RBC) [Mass/Vol] 32.5 g/dL 32.0-35.0 [facility] MCV Auto (RBC) [Entitic vol] Ordered By: Chon Valdez on 12-31-2022 MCV (RBC) [Entitic vol] 80.5 fL 80-100 [facility] Monocyte distribution width [Entitic volume] in Blood by AutomatedOrdered By: Chon Valdez on 12-31-2022 Monocyte distribution width Auto (Bld) [Entitic vol] 19.53 % 0.00-20.00 [facility] Monocytes Auto (Bld) [#/Vol] Ordered By: Chon Valdez on 12-31-2022 Monocytes (Bld) [#/Vol] 0.9 10*3/uL 0.0-0.8 [facility] Monocytes/100 WBC Auto (Bld) Ordered By: Chon Valdez on 12-31-2022 Monocytes/100 WBC (Bld) 11.2 % . [facility] Neutrophils Auto (Bld) [#/Vo l]Ordered By: Chon Valdez on 12-31-2022 Neutrophils (Bld) [#/Vol] 6.1 10*3/uL 1.8-7.7 [facility] Neutrophils/100 WBC Auto (Bl d)Ordered By: Chon Valdez on 12-31-2022 Neutrophils/100 WBC (Bld) 75.2 % . [facility] No Panel InformationOrdered By: Chon Valdez on 12-31-2022 Estimated GFR (CKD-EPI) > 60.0 mL/Min [facility] Creatinine Clearance (Chem 97.74 [facility] Nucleated erythrocytes [Pres ence] in Blood by Automated countOrdered By: Chon Valdez on 12-31-2022 Nucleated RBC Auto Ql (Bld) 0.1 /100{WBC} 0-0.5 [facility] Platelet mean volume Auto (B ld) [Entitic vol]Ordered By: Chon Valdez on 12-31-2022 Platelet mean volume (Bld) [Entitic vol] 7.9 fL 6.3-10.7 [facility] Platelets Auto (Bld) [#/Vol] Ordered By: Chon Valdez on 12-31-2022 Platelets (Bld) [#/Vol] 258 10*3/uL 150-450 [facility] Potassium [Moles/volume] in Serum or PlasmaOrdered By: Chon Valdez on 12-31-2022 Potassium [Moles/Vol] 4.2 mmol/L 3.5-5.1 [facility] Protein [Mass/volume] in Ser um or PlasmaOrdered By: Chon Valdez on 12-31-2022 Protein [Mass/Vol] 6.6 g/dL 6.4-8.9 [facility] RBC Auto (Bld) [#/Vol]Ordere d By: Chon Valdez on 12-31-2022 RBC (Bld) [#/Vol] 4.46 10*6/uL 3.60-5.00 [facility] Serum or plasma albumin/glob ulin mass ratioOrdered By: Chon Valdez on 12-31-2022 Albumin/Globulin [Mass ratio] 1.3 {ratio} [facility] Serum or plasma anion gap de terminationOrdered By: Chon Valdez on 12-31-2022 Anion gap [Moles/Vol] 11.3 mmol/L 6.0-15.0 [facility] Sodium [Moles/volume] in Ser um or PlasmaOrdered By: Chon Valdez on 12-31-2022 Sodium [Moles/Vol] 138 mmol/L 136-145 [facility] Urea nitrogen [Mass/volume] in Serum or PlasmaOrdered By: Chon Valdez on 12-31-2022 Urea nitrogen [Mass/Vol] 36 mg/dL 7-25 [facility] WBC Auto (Bld) [#/Vol]Ordere d By: Chon Valdez on 12-31-2022 WBC (Bld) [#/Vol] 8.2 10*3/uL 3.8-11.6 [facility] Complete Blood Count Auto Di ffon 12-14-2022 Basophils (Bld) [#/Vol] 0.1 10*3/uL Normal 0.0-0.2 [facility] Comment on above: Result Comment: PERF ORMED BY: [place] [address] PATHOLOGIST ARRESTING GEAR OPERATOR IAN ACE M.D. Performed By: #### L ACTIC, CMP, CBC #### [facility] [address] Basophils/100 WBC (Bld) 1.0 % Normal . [facility] Comment on above: Performed By: #### L ACTIC, CMP, CBC #### [facility] [address] [place] [address] [place] Eosinophils (Bld) [#/Vol] 0.4 10*3/uL Normal 0.0-0.45 [facility] Comment on above: Performed By: #### L ACTIC, CMP, CBC #### [facility] [address] [place] [address] [place] Eosinophils/100 WBC (Bld) 4.9 % Normal . [facility] Comment on above: Performed By: #### L ACTIC, CMP, CBC #### [facility] [address] [place] [address] [place] Erythrocyte distribution width (RBC) [Ratio] 17.6 % High 11.9-15.3 [facility] Comment on above: Performed By: #### L ACTIC, CMP, CBC #### [facility] [address] [place] [address] [place] Hematocrit (Bld) [Volume fraction] 36.1 % Normal 34.0-46.4 [facility] Comment on above: Performed By: #### L ACTIC, CMP, CBC #### [facility] [address] [place] [address] [place] Hemoglobin (Bld) [Mass/Vol] 11.6 g/dL Low 11.8-15.4 [facility] Comment on above: Performed By: #### L ACTIC, CMP, CBC #### [facility] [address] [place] [address] Lymphocytes (Bld) [#/Vol] 1.3 10*3/uL Normal 1.00-4.8 [facility] Comment on above: Performed By: #### L ACTIC, CMP, CBC #### [address] Lymphocytes/100 WBC (Bld) 17.2 % Normal . [facility] Comment on above: Performed By: #### L ACTIC, CMP, CBC #### [address] MCH (RBC) [Entitic mass] 25.9 pg Normal 24.7-34.3 [facility] Comment on above: Performed By: #### L ACTIC, CMP, CBC #### [address] MCV (RBC) [Entitic vol] 80.4 fL Normal 80-100 [facility] Comment on above: Performed By: #### L ACTIC, CMP, CBC #### [address] Mean Corpuscular HGB Conc 32.2 g/dL Normal 32.0-35.0 [facility] Comment on above: Performed By: #### L ACTIC, CMP, CBC #### [facility] [address] [place] [address] Monocytes (Bld) [#/Vol] 0.7 10*3/uL Normal 0.0-0.8 [facility] Comment on above: Performed By: #### L ACTIC, CMP, CBC #### [address] Monocytes/100 WBC (Bld) 19.39 % Normal 0.00-20.00 [facility] Comment on above: Performed By: #### L ACTIC, CMP, CBC #### [address] Monocytes/100 WBC (Bld) 9.1 % Normal . [facility] Comment on above: Performed By: #### L ACTIC, CMP, CBC #### [address] Neutrophils (Bld) [#/Vol] 5.0 10*3/uL Normal 1.8-7.7 [facility] Comment on above: Performed By: #### L ACTIC, CMP, CBC #### [address] Neutrophils/100 WBC (Bld) 67.8 % Normal . [facility] Comment on above: Performed By: #### L ACTIC, CMP, CBC #### [address] NRBC% 0.1 /100{WBC} Normal 0-0.5 [facility] Comment on above: Performed By: #### L ACTIC, CMP, CBC #### [address] Platelet mean volume (Bld) [Entitic vol] 8.0 fL Normal 6.3-10.7 [facility] Comment on above: Performed By: #### L ACTIC, CMP, CBC #### [address] Platelets (Bld) [#/Vol] 204 10*3/uL Normal 150-450 [facility] Comment on above: Performed By: #### L ACTIC, CMP, CBC #### [address] RBC (Bld) [#/Vol] 4.49 10*6/uL Normal 3.60-5.00 [facility] Comment on above: Performed By: #### L ACTIC, CMP, CBC #### [address] WBC (Bld) [#/Vol] 7.4 10*3/uL Normal 3.8-11.6 [facility] Comment on above: Performed By: #### L ACTIC, CMP, CBC #### [facility] [address] Comprehensive Metabolic Pane jeremy 12-14-2022 Albumin [Mass/Vol] 4.0 g/dL Normal 3.5-5.7 [facility] Comment on above: Performed By: #### L ACTIC, CMP, CBC #### [facility] [facility] [address] Albumin/Globulin [Mass ratio] 1.4 {ratio} Normal [facility] Comment on above: Performed By: #### L ACTIC, CMP, CBC #### [facility] [address] ALP [Catalytic activity/Vol] 81 U/L Normal 34-104 [facility] Comment on above: Performed By: #### L ACTIC, CMP, CBC #### [facility] [address] ALT [Catalytic activity/Vol] 21 U/L Normal 7-52 [facility] Comment on above: Performed By: #### L ACTIC, CMP, CBC #### [facility] [address] Anion gap [Moles/Vol] 12.1 mmol/L Normal 6.0-15.0 [facility] Comment on above: Performed By: #### L ACTIC, CMP, CBC #### [facility] [address] AST [Catalytic activity/Vol] 22 U/L Normal 13-39 [facility] Comment on above: Performed By: #### L ACTIC, CMP, CBC #### [facility] [address] [place] [id number] [place] Bilirubin [Mass/Vol] 0.3 mg/dL Normal 0.3-1.0 [facility] Comment on above: Performed By: #### L ACTIC, CMP, CBC #### [facility] [address] [place] [id number] [facility] Calcium [Mass/Vol] 8.9 mg/dL Normal 8.6-10.3 [facility] Comment on above: Performed By: #### L ACTIC, CMP, CBC #### [facility] [address] [place] [address] [place] Chloride [Moles/Vol] 106 mmol/L Normal 98-107 [facility] Comment on above: Performed By: #### L ACTIC, CMP, CBC #### [facility] [address] CO2 [Moles/Vol] 27.1 mmol/L Normal 21.0-31.0 [facility] Comment on above: Performed By: #### L ACTIC, CMP, CBC #### [facility] [address] Creatinine [Mass/Vol] 0.94 mg/dL Normal 0.60-1.20 [facility] Comment on above: Performed By: #### L ACTIC, CMP, CBC #### [facility] [address] [place] [address] [place] Creatinine Clr Calc Pharmacy 86.28 [facility] Comment on above: Result Comment: PERF ORMED BY: [place] [address] PATHOLOGIST ARRESTING GEAR OPERATOR IAN ACE M.D. Performed By: #### L ACTPERCY, CMP, CBC #### [facility] [address] [place] [address] [place] GFR/1.73 sq M.predicted MDRD (S/P/Bld) [Vol rate/Area] mL/min/{1.73_m2} [facility] Comment on above: Performed By: #### L ACTIC, CMP, CBC #### [facility] [address] [place] [address] [place] Globulin (S) [Mass/Vol] 2.9 g/dL [facility] Comment on above: Performed By: #### L ACTIC, CMP, CBC #### [facility] [address] [place] [address] [place] Glucose [Mass/Vol] 98 mg/dL Normal 70-100 [facility] Comment on above: Result Comment: [facility] Glucose Reference Range is dependent on time and content of last meal. Glucose of more than 200 mg/dL in a nonstressed, ambulatory subject supports the diagnosis of Diabetes Mellitus. ADA recommended reference range Performed By: #### L ALEXX ADLER, CBC #### [address] Potassium [Moles/Vol] 4.2 mmol/L Normal 3.5-5.1 [facility] Comment on above: Performed By: #### L ALEXX ADLER, CBC #### [address] Protein [Mass/Vol] 6.9 g/dL Normal 6.4-8.9 [facility] Comment on above: Performed By: #### L ALEXX ADLER, CBC #### [address] Sodium [Moles/Vol] 141 mmol/L Normal 136-145 [facility] Comment on above: Performed By: #### L ALEXX ADLER, CBC #### [address] Urea nitrogen [Mass/Vol] 24 mg/dL Normal 7-25 [facility] Comment on above: Performed By: #### L ALEXX ADLER, CBC #### [address] Lactic Acidon 12-14-2022 Lactate [Moles/Vol] 0.9 mmol/L Normal 0.5-2.2 [facility] Comment on above: Result Comment: PERF ORMED BY: [place] [address] PATHOLOGIST ARRESTING GEAR OPERATOR IAN ACE M.D. Performed By: #### L ALEXX ADLER, CBC #### [address] Superficial Wound Cultureon 12-14-2022 Superficial Wound Culture Claudia haemulonii results called at 1420 on 12/18/22. 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 PERFORMED BY: [place] [address] PATHOLOGIST ARRESTING GEAR OPERATOR IAN ACE M.D. Normal [facility] Comment on above: Performed By: #### C UBLD, CMP, CBC #### [address] Alanine aminotransferase [En zymatic activity/volume] in Serum or PlasmaOrdered By: Chon Valdez on 12-13-2022 ALT [Catalytic activity/Vol] 21 U/L 7-52 [facility] Albumin [Mass/volume] in Ser um or Plasma by Bromocresol green (BCG) dye binding methoOrdered By: Chon Valdez on 12-13-2022 Albumin BCG dye [Mass/Vol] 4.0 g/dL 3.5-5.7 [facility] Alkaline phosphatase [Enzyma tic activity/volume] in Serum or PlasmaOrdered By: Chon Valdez on 12-13-2022 ALP [Catalytic activity/Vol] 81 U/L 34-104 [facility] Aspartate aminotransferase [ Enzymatic activity/volume] in Serum or PlasmaOrdered By: Chon Valdez on 12-13-2022 AST [Catalytic activity/Vol] 22 U/L 13-39 [facility] Bacteria identified Aer cx N om (Unsp spec)Ordered By: Chon Valdez on 12-13-2022 Superficial Wound Culture Pseudomonas aeruginosa [facility] Superficial Wound Culture Enterococcus faecalis [facility] Superficial Wound Culture Pseudomonas aeruginosa#2 [facility] Superficial Wound Culture Methicillin Resis Staph Aureus [facility] Superficial Wound Culture Claudia haemulonii [facility] Basophils Auto (Bld) [#/Vol] Ordered By: Chon Valdez on 12-13-2022 Basophils (Bld) [#/Vol] 0.1 10*3/uL 0.0-0.2 [facility] Basophils/100 WBC Auto (Bld) Ordered By: Chon Valdez on 12-13-2022 Basophils/100 WBC (Bld) 1.0 % . [facility] Bilirubin.total [Mass/volume ] in Serum or PlasmaOrdered By: Chon Valdez on 12-13-2022 Bilirubin [Mass/Vol] 0.3 mg/dL 0.3-1.0 [facility] Calcium [Mass/volume] in Ser um or PlasmaOrdered By: Chon Valdez on 12-13-2022 Calcium [Mass/Vol] 8.9 mg/dL 8.6-10.3 [facility] Carbon dioxide, total [Moles /volume] in Serum or PlasmaOrdered By: Chon Valdez on 12-13-2022 CO2 [Moles/Vol] 27.1 mmol/L 21.0-31.0 [facility] Chloride [Moles/volume] in S marivel or PlasmaOrdered By: Chon Valdez on 12-13-2022 Chloride [Moles/Vol] 106 mmol/L 98-107 [facility] Creatinine [Mass/volume] in Serum or PlasmaOrdered By: Chon Valdez on 12-13-2022 Creatinine [Mass/Vol] 0.94 mg/dL 0.60-1.20 [facility] Eosinophils Auto (Bld) [#/Vo l]Ordered By: Chon Valdez on 12-13-2022 Eosinophils (Bld) [#/Vol] 0.4 10*3/uL 0.0-0.45 [facility] Eosinophils/100 WBC Auto (Bl d)Ordered By: Chon Valdez on 12-13-2022 Eosinophils/100 WBC (Bld) 4.9 % . [facility] Erythrocyte distribution wid th Auto (RBC) [Ratio]Ordered By: Chon Valdez on 12-13-2022 Erythrocyte distribution width (RBC) [Ratio] 17.6 % 11.9-15.3 [facility] Globulin Calc (S) [Mass/Vol] Ordered By: Chon Valdez on 12-13-2022 Globulin (S) [Mass/Vol] 2.9 g/dL [facility] Glucose [Mass/volume] in Ser um or PlasmaOrdered By: Chon Valdez on 12-13-2022 Glucose [Mass/Vol] 98 mg/dL 70-100 [facility] Comment on above: ADA recommended refe rence rangeRandom Glucose Reference Range is dependent on time and content of last meal. Glucose of more than 200 mg/dL in a nonstressed, ambulatory subject supports the diagnosis of Diabetes Mellitus. Hematocrit Auto (Bld) [Volum e fraction]Ordered By: Cohn Valdez on 12-13-2022 Hematocrit (Bld) [Volume fraction] 36.1 % 34.0-46.4 [facility] Hemoglobin [Mass/volume] in BloodOrdered By: Chon Valdez on 12-13-2022 Hemoglobin (Bld) [Mass/Vol] 11.6 g/dL 11.8-15.4 [facility] Lactate [Moles/volume] in Se rum or PlasmaOrdered By: Chon Valdez on 12-13-2022 Lactate [Moles/Vol] 0.9 mmol/L 0.5-2.2 [facility] Leukocytes [#/volume] correc julia for nucleated erythrocytes in Blood by Automated counOrdered By: Chon Valdez on 12-13-2022 WBC corrected for nucl RBC Auto (Bld) [#/Vol] 7.4 10*3/uL 3.8-11.6 [facility] Lymphocytes Auto (Bld) [#/Vo l]Ordered By: Chon Valdez on 12-13-2022 Lymphocytes (Bld) [#/Vol] 1.3 10*3/uL 1.00-4.8 [facility] Lymphocytes/100 WBC Auto (Bl d)Ordered By: Chon Valdez on 12-13-2022 Lymphocytes/100 WBC (Bld) 17.2 % . [facility] MCH Auto (RBC) [Entitic mass ]Ordered By: Chon Valdez on 12-13-2022 MCH (RBC) [Entitic mass] 25.9 pg 24.7-34.3 [facility] MCHC Auto (RBC) [Mass/Vol]Or dered By: Chon Valdez on 12-13-2022 MCHC (RBC) [Mass/Vol] 32.2 g/dL 32.0-35.0 [facility] MCV Auto (RBC) [Entitic vol] Ordered By: Chon Valdez on 12-13-2022 MCV (RBC) [Entitic vol] 80.4 fL 80-100 [facility] Monocyte distribution width [Entitic volume] in Blood by AutomatedOrdered By: Chon Vladez on 12-13-2022 Monocyte distribution width Auto (Bld) [Entitic vol] 19.39 % 0.00-20.00 [facility] Monocytes Auto (Bld) [#/Vol] Ordered By: Chon Valdez on 12-13-2022 Monocytes (Bld) [#/Vol] 0.7 10*3/uL 0.0-0.8 [facility] Monocytes/100 WBC Auto (Bld) Ordered By: Chon Valdez on 12-13-2022 Monocytes/100 WBC (Bld) 9.1 % . [facility] Neutrophils Auto (Bld) [#/Vo l]Ordered By: Chon Valdez on 12-13-2022 Neutrophils (Bld) [#/Vol] 5.0 10*3/uL 1.8-7.7 [facility] Neutrophils/100 WBC Auto (Bl d)Ordered By: Chon Valdez on 12-13-2022 Neutrophils/100 WBC (Bld) 67.8 % . [facility] No Panel InformationOrdered By: Chon Valdez on 12-13-2022 Estimated GFR (CKD-EPI) > 60.0 mL/Min [facility] Creatinine Clearance (Chem 86.28 [facility] Nucleated erythrocytes [Pres ence] in Blood by Automated countOrdered By: Chon Valdez on 12-13-2022 Nucleated RBC Auto Ql (Bld) 0.1 /100{WBC} 0-0.5 [facility] Platelet mean volume Auto (B ld) [Entitic vol]Ordered By: Chon Valdez on 12-13-2022 Platelet mean volume (Bld) [Entitic vol] 8.0 fL 6.3-10.7 [facility] Platelets Auto (Bld) [#/Vol] Ordered By: Chon Valdez on 12-13-2022 Platelets (Bld) [#/Vol] 204 10*3/uL 150-450 [facility] Potassium [Moles/volume] in Serum or PlasmaOrdered By: Chon Valdez on 12-13-2022 Potassium [Moles/Vol] 4.2 mmol/L 3.5-5.1 [facility] Protein [Mass/volume] in Ser um or PlasmaOrdered By: Chon Valdez on 12-13-2022 Protein [Mass/Vol] 6.9 g/dL 6.4-8.9 [facility] RBC Auto (Bld) [#/Vol]Ordere d By: Chon Valdez on 12-13-2022 RBC (Bld) [#/Vol] 4.49 10*6/uL 3.60-5.00 [facility] Serum or plasma albumin/glob ulin mass ratioOrdered By: Chon Valdez on 12-13-2022 Albumin/Globulin [Mass ratio] 1.4 {ratio} [facility] Serum or plasma anion gap de terminationOrdered By: Chon Valdez on 12-13-2022 Anion gap [Moles/Vol] 12.1 mmol/L 6.0-15.0 [facility] Sodium [Moles/volume] in Ser um or PlasmaOrdered By: Chon Valdez on 12-13-2022 Sodium [Moles/Vol] 141 mmol/L 136-145 [facility] Urea nitrogen [Mass/volume] in Serum or PlasmaOrdered By: Chon Valdez on 12-13-2022 Urea nitrogen [Mass/Vol] 24 mg/dL 7-25 [facility] WBC Auto (Bld) [#/Vol]Ordere d By: Chon Valdez on 12-13-2022 WBC (Bld) [#/Vol] 7.4 10*3/uL 3.8-11.6 [facility] Alanine aminotransferase [En zymatic activity/volume] in Serum or PlasmaOrdered By: Laith Warner on 12-01-2022 ALT [Catalytic activity/Vol] 21 U/L 7-52 [facility] Albumin [Mass/volume] in Ser um or Plasma by Bromocresol green (BCG) dye binding methoOrdered By: Laith Warner on 12-01-2022 Albumin BCG dye [Mass/Vol] 4.2 g/dL 3.5-5.7 [facility] Alkaline phosphatase [Enzyma tic activity/volume] in Serum or PlasmaOrdered By: Laith Warner on 12-01-2022 ALP [Catalytic activity/Vol] 71 U/L 34-104 [facility] Aspartate aminotransferase [ Enzymatic activity/volume] in Serum or PlasmaOrdered By: Laith Warner on 12-01-2022 AST [Catalytic activity/Vol] 26 U/L 13-39 [facility] Bacterial blood cultureOrder ed By: Laith Warner on 12-01-2022 Bacteria identified Cx Nom (Bld) NO GROWTH 5 DAYS [facility] Basophils Auto (Bld) [#/Vol] Ordered By: Laith Warner on 12-01-2022 Basophils (Bld) [#/Vol] 0.0 10*3/uL 0.0-0.2 [facility] Basophils/100 WBC Auto (Bld) Ordered By: Laith Warner on 12-01-2022 Basophils/100 WBC (Bld) 0.6 % . [facility] Bilirubin.total [Mass/volume ] in Serum or PlasmaOrdered By: Laith Warner on 12-01-2022 Bilirubin [Mass/Vol] 0.3 mg/dL 0.3-1.0 [facility] Blood Cultureon 12-01-2022 Bacteria identified Cx Nom (Bld) NO GROWTH 5 DAYS PERFORMED BY: [place] [address] PATHOLOGIST ARRESTING GEAR OPERATOR IAN ACE M.D. Normal [facility] Comment on above: Performed By: #### L ACTIC, CMP, CBC #### [address] Bacteria identified Cx Nom (Bld) NO GROWTH 5 DAYS PERFORMED BY: [address] [place] [address] PATHOLOGIST ARRESTING GEAR OPERATOR IAN ACE M.D. Normal [facility] Comment on above: Performed By: #### L ACTIC, CMP, CBC #### [facility] [address] [place] [address] [facility] Calcium [Mass/volume] in Ser um or PlasmaOrdered By: Laith Warner on 12-01-2022 Calcium [Mass/Vol] 8.9 mg/dL 8.6-10.3 [facility] Carbon dioxide, total [Moles /volume] in Serum or PlasmaOrdered By: Laith Warner on 12-01-2022 CO2 [Moles/Vol] 24.3 mmol/L 21.0-31.0 [facility] Chloride [Moles/volume] in S marivel or PlasmaOrdered By: Laith Warner on 12-01-2022 Chloride [Moles/Vol] 109 mmol/L 98-107 [facility] Complete Blood Count Auto Di ffon 12-01-2022 Basophils (Bld) [#/Vol] 0.0 10*3/uL Normal 0.0-0.2 [facility] Comment on above: Result Comment: PERF ORMED BY: [facility] [address] [place] [id number] PATHOLOGIST ARRESTING GEAR OPERATOR IAN ACE M.D. Performed By: #### G LULS #### Point of Care testing , Basophils/100 WBC (Bld) 0.6 % Normal . [facility] Comment on above: Performed By: #### G LULS #### Point of Care testing , Eosinophils (Bld) [#/Vol] 0.4 10*3/uL Normal 0.0-0.45 [facility] Comment on above: Performed By: #### G LULS #### Point of Care testing , Eosinophils/100 WBC (Bld) 5.7 % Normal . [facility] Comment on above: Performed By: #### G LULS #### Point of Care testing , Erythrocyte distribution width (RBC) [Ratio] 17.4 % High 11.9-15.3 [facility] Comment on above: Performed By: #### G DAIANA #### Point of Care testing , Hematocrit (Bld) [Volume fraction] 35.5 % Normal 34.0-46.4 [facility] Comment on above: Performed By: #### G KYAWLS #### Point of Care testing , Hemoglobin (Bld) [Mass/Vol] 11.5 g/dL Low 11.8-15.4 [facility] Comment on above: Performed By: #### Jodi AHMADI #### Point of Care testing , Lymphocytes (Bld) [#/Vol] 0.8 10*3/uL Low 1.00-4.8 [facility] Comment on above: Performed By: #### Joid CARDLS #### Point of Care testing , Lymphocytes/100 WBC (Bld) 11.6 % Normal . [facility] Comment on above: Performed By: #### Jodi CADRLS #### Point of Care testing , MCH (RBC) [Entitic mass] 26.0 pg Normal 24.7-34.3 [facility] Comment on above: Performed By: #### Jodi AHMADI #### Point of Care testing , MCV (RBC) [Entitic vol] 80.2 fL Normal 80-100 [facility] Comment on above: Performed By: #### Jodi AHMADI #### Point of Care testing , Mean Corpuscular HGB Conc 32.5 g/dL Normal 32.0-35.0 [facility] Comment on above: Performed By: #### Jodi AHMADI #### Point of Care testing , Monocytes (Bld) [#/Vol] 0.6 10*3/uL Normal 0.0-0.8 [facility] Comment on above: Performed By: #### Jodi AHMADI #### Point of Care testing , Monocytes/100 WBC (Bld) 17.78 % Normal 0.00-20.00 [facility] Comment on above: Performed By: #### Jodi AHMADI #### Point of Care testing , Monocytes/100 WBC (Bld) 8.3 % Normal . [facility] Comment on above: Performed By: #### Jodi AHMADI #### Point of Care testing , Neutrophils (Bld) [#/Vol] 5.1 10*3/uL Normal 1.8-7.7 [facility] Comment on above: Performed By: #### Jodi AHMADI #### Point of Care testing , Neutrophils/100 WBC (Bld) 73.8 % Normal . [facility] Comment on above: Performed By: #### Jodi AHMADI #### Point of Care testing , NRBC% 0.1 /100{WBC} Normal 0-0.5 [facility] Comment on above: Performed By: #### Jodi AHMADI #### Point of Care testing , Platelet mean volume (Bld) [Entitic vol] 7.8 fL Normal 6.3-10.7 [facility] Comment on above: Performed By: #### Jodi AHMADI #### Point of Care testing , Platelets (Bld) [#/Vol] 228 10*3/uL Normal 150-450 [facility] Comment on above: Performed By: #### Jodi AHMADI #### Point of Care testing , RBC (Bld) [#/Vol] 4.43 10*6/uL Normal 3.60-5.00 [facility] Comment on above: Performed By: #### Jodi AHMADI #### Point of Care testing , WBC (Bld) [#/Vol] 7.0 10*3/uL Normal 3.8-11.6 [facility] Comment on above: Performed By: #### Jodi CARDLS #### Point of Care testing , Comprehensive Metabolic Pane jeremy 12-01-2022 Albumin [Mass/Vol] 4.2 g/dL Normal 3.5-5.7 [facility] Comment on above: Performed By: #### L ACTIC, CMP, CBC #### [facility] [address] [place] [address] [place] Albumin/Globulin [Mass ratio] 1.6 {ratio} Normal [facility] Comment on above: Performed By: #### L ACTIC, CMP, CBC #### [facility] [address] [place] [address] [place] ALP [Catalytic activity/Vol] 71 U/L Normal 34-104 [facility] Comment on above: Performed By: #### L ACTIC, CMP, CBC #### [facility] [address] ALT [Catalytic activity/Vol] 21 U/L Normal 7-52 [facility] Comment on above: Performed By: #### L ACTIC, CMP, CBC #### [facility] [address] Anion gap [Moles/Vol] 11.3 mmol/L Normal 6.0-15.0 [facility] Comment on above: Performed By: #### L ACTIC, CMP, CBC #### [facility] [address] AST [Catalytic activity/Vol] 26 U/L Normal 13-39 [facility] Comment on above: Performed By: #### L ACTIC, CMP, CBC #### [facility] [address] Bilirubin [Mass/Vol] 0.3 mg/dL Normal 0.3-1.0 [facility] Comment on above: Performed By: #### L ACTIC, CMP, CBC #### [facility] [address] Calcium [Mass/Vol] 8.9 mg/dL Normal 8.6-10.3 [facility] Comment on above: Performed By: #### L ACTIC, CMP, CBC #### [facility] [address] [place] [address] [place] Chloride [Moles/Vol] 109 mmol/L High 98-107 [facility] Comment on above: Performed By: #### L ACTIC, CMP, CBC #### [facility] [address] [place] [id number] [place] CO2 [Moles/Vol] 24.3 mmol/L Normal 21.0-31.0 [facility] Comment on above: Performed By: #### L ACTIC, CMP, CBC #### [facility] [address] [place] [address] [place] Creatinine [Mass/Vol] 0.84 mg/dL Normal 0.60-1.20 [facility] Comment on above: Performed By: #### L ACTPERCY CMP, CBC #### [facility] [address] Creatinine Clr Calc Pharmacy 95.60 [facility] Comment on above: Result Comment: PERF ORMED BY: [place] [address] PATHOLOGIST ARRESTING GEAR OPERATOR IAN ACE M.D. Performed By: #### L ACTIC, CMP, CBC #### [facility] [address] GFR/1.73 sq M.predicted MDRD (S/P/Bld) [Vol rate/Area] mL/min/{1.73_m2} [facility] Comment on above: Performed By: #### L ACTPERCY CMP, CBC #### [address] Globulin (S) [Mass/Vol] 2.6 g/dL [facility] Comment on above: Performed By: #### L ACTPERCY CMP, CBC #### [address] Glucose [Mass/Vol] 89 mg/dL Normal 70-100 [facility] Comment on above: Result Comment: [place] Glucose Reference Range is dependent on time and content of last meal. Glucose of more than 200 mg/dL in a nonstressed, ambulatory subject supports the diagnosis of Diabetes Mellitus. ADA recommended reference range Performed By: #### L ACTIC, CMP, CBC #### [facility] [address] Potassium [Moles/Vol] 3.6 mmol/L Normal 3.5-5.1 [facility] Comment on above: Performed By: #### L ACTIC, CMP, CBC #### [facility] [address] Protein [Mass/Vol] 6.8 g/dL Normal 6.4-8.9 [facility] Comment on above: Performed By: #### L ACTIC, CMP, CBC #### [facility] [address] [place] [address] [place] Sodium [Moles/Vol] 141 mmol/L Normal 136-145 [facility] Comment on above: Performed By: #### L ACTIC, CMP, CBC #### [facility] [address] [place] [address] [place] Urea nitrogen [Mass/Vol] 24 mg/dL Normal 7-25 [facility] Comment on above: Performed By: #### L ACTIC, CMP, CBC #### [facility] [address] [place] [id number] [place] Creatinine [Mass/volume] in Serum or PlasmaOrdered By: Laith Warner on 12-01-2022 Creatinine [Mass/Vol] 0.84 mg/dL 0.60-1.20 [facility] Eosinophils Auto (Bld) [#/Vo l]Ordered By: Laith Warner on 12-01-2022 Eosinophils (Bld) [#/Vol] 0.4 10*3/uL 0.0-0.45 [facility] Eosinophils/100 WBC Auto (Bl d)Ordered By: Laith Warner on 12-01-2022 Eosinophils/100 WBC (Bld) 5.7 % . [facility] Erythrocyte distribution wid th Auto (RBC) [Ratio]Ordered By: Laith Warner on 12-01-2022 Erythrocyte distribution width (RBC) [Ratio] 17.4 % 11.9-15.3 [facility] Globulin Calc (S) [Mass/Vol] Ordered By: Laith Warner on 12-01-2022 Globulin (S) [Mass/Vol] 2.6 g/dL [facility] Glucose [Mass/volume] in Ser um or PlasmaOrdered By: Laith Warner on 12-01-2022 Glucose [Mass/Vol] 89 mg/dL 70-100 [facility] Comment on above: ADA recommended refe rence rangeRandom Glucose Reference Range is dependent on time and content of last meal. Glucose of more than 200 mg/dL in a nonstressed, ambulatory subject supports the diagnosis of Diabetes Mellitus. Hematocrit Auto (Bld) [Volum e fraction]Ordered By: Laith Warner on 12-01-2022 Hematocrit (Bld) [Volume fraction] 35.5 % 34.0-46.4 [facility] Hemoglobin [Mass/volume] in BloodOrdered By: Laith Warner on 12-01-2022 Hemoglobin (Bld) [Mass/Vol] 11.5 g/dL 11.8-15.4 [facility] Lactate [Moles/volume] in Se rum or PlasmaOrdered By: Laith Warner on 12-01-2022 Lactate [Moles/Vol] 0.5 mmol/L 0.5-2.2 [facility] Lactic Acidon 12-01-2022 Lactate [Moles/Vol] 0.5 mmol/L Normal 0.5-2.2 [facility] Comment on above: Result Comment: PERF ORMED BY: [facility] [address] [place] [address] PATHOLOGIST ARRESTING GEAR OPERATOR IAN ACE M.D. Performed By: #### G LULS #### Point of Care testing , Leukocytes [#/volume] correc julia for nucleated erythrocytes in Blood by Automated counOrdered By: Laith Warner on 12-01-2022 WBC corrected for nucl RBC Auto (Bld) [#/Vol] 7.0 10*3/uL 3.8-11.6 [facility] Lymphocytes Auto (Bld) [#/Vo l]Ordered By: Laith Warner on 12-01-2022 Lymphocytes (Bld) [#/Vol] 0.8 10*3/uL 1.00-4.8 [facility] Lymphocytes/100 WBC Auto (Bl d)Ordered By: Laith Warner on 12-01-2022 Lymphocytes/100 WBC (Bld) 11.6 % . [facility] MCH Auto (RBC) [Entitic mass ]Ordered By: Laith Warner on 12-01-2022 MCH (RBC) [Entitic mass] 26.0 pg 24.7-34.3 [facility] MCHC Auto (RBC) [Mass/Vol]Or dered By: Laith Warner on 12-01-2022 MCHC (RBC) [Mass/Vol] 32.5 g/dL 32.0-35.0 [facility] MCV Auto (RBC) [Entitic vol] Ordered By: Laith Warner on 12-01-2022 MCV (RBC) [Entitic vol] 80.2 fL 80-100 [facility] Monocyte distribution width [Entitic volume] in Blood by AutomatedOrdered By: Laith Warner on 12-01-2022 Monocyte distribution width Auto (Bld) [Entitic vol] 17.78 % 0.00-20.00 [facility] Monocytes Auto (Bld) [#/Vol] Ordered By: Laith Warner on 12-01-2022 Monocytes (Bld) [#/Vol] 0.6 10*3/uL 0.0-0.8 [facility] Monocytes/100 WBC Auto (Bld) Ordered By: Laith Warner on 12-01-2022 Monocytes/100 WBC (Bld) 8.3 % . [facility] Neutrophils Auto (Bld) [#/Vo l]Ordered By: Laith Warner on 12-01-2022 Neutrophils (Bld) [#/Vol] 5.1 10*3/uL 1.8-7.7 [facility] Neutrophils/100 WBC Auto (Bl d)Ordered By: Laith Warner on 12-01-2022 Neutrophils/100 WBC (Bld) 73.8 % . [facility] No Panel InformationOrdered By: Laith Warner on 12-01-2022 Estimated GFR (CKD-EPI) > 60.0 mL/Min [facility] Creatinine Clearance (Chem 95.60 [facility] Nucleated erythrocytes [Pres ence] in Blood by Automated countOrdered By: Laith Warner on 12-01-2022 Nucleated RBC Auto Ql (Bld) 0.1 /100{WBC} 0-0.5 [facility] Platelet mean volume Auto (B ld) [Entitic vol]Ordered By: Laith Warner on 12-01-2022 Platelet mean volume (Bld) [Entitic vol] 7.8 fL 6.3-10.7 [facility] Platelets Auto (Bld) [#/Vol] Ordered By: Laith Warner on 12-01-2022 Platelets (Bld) [#/Vol] 228 10*3/uL 150-450 [facility] Potassium [Moles/volume] in Serum or PlasmaOrdered By: Laith Warner on 12-01-2022 Potassium [Moles/Vol] 3.6 mmol/L 3.5-5.1 [facility] Protein [Mass/volume] in Ser um or PlasmaOrdered By: Laith Warner on 12-01-2022 Protein [Mass/Vol] 6.8 g/dL 6.4-8.9 [facility] RBC Auto (Bld) [#/Vol]Ordere d By: Laith Warner on 12-01-2022 RBC (Bld) [#/Vol] 4.43 10*6/uL 3.60-5.00 [facility] Serum or plasma albumin/glob ulin mass ratioOrdered By: Laith Warner on 12-01-2022 Albumin/Globulin [Mass ratio] 1.6 {ratio} [facility] Serum or plasma anion gap de terminationOrdered By: Laith Warner on 12-01-2022 Anion gap [Moles/Vol] 11.3 mmol/L 6.0-15.0 [facility] Sodium [Moles/volume] in Ser um or PlasmaOrdered By: Laith Warner on 12-01-2022 Sodium [Moles/Vol] 141 mmol/L 136-145 [facility] Urea nitrogen [Mass/volume] in Serum or PlasmaOrdered By: Laith Warner on 12-01-2022 Urea nitrogen [Mass/Vol] 24 mg/dL 12-30 [facility] WBC Auto (Bld) [#/Vol]Ordere d By: Laith Warner on 12-01-2022 WBC (Bld) [#/Vol] 7.0 10*3/uL 3.8-11.6 [facility] Alanine aminotransferase [En zymatic activity/volume] in Serum or PlasmaOrdered By: Jhonatan Crowell on 11-05-2022 ALT [Catalytic activity/Vol] 20 U/L [facility] Albumin [Mass/volume] in Ser um or Plasma by Bromocresol green (BCG) dye binding methoOrdered By: Jhonatan Crowell on 11-05-2022 Albumin BCG dye [Mass/Vol] 3.9 g/dL 3.5-5.7 [facility] Alkaline phosphatase [Enzyma tic activity/volume] in Serum or PlasmaOrdered By: Jhonatan Crowell on 11-05-2022 ALP [Catalytic activity/Vol] 77 U/L 34-104 [facility] Aspartate aminotransferase [ Enzymatic activity/volume] in Serum or PlasmaOrdered By: Jhonatan Crowell on 11-05-2022 AST [Catalytic activity/Vol] 22 U/L 13-39 [facility] Bacterial blood cultureOrder ed By: Jhonatan Crowell on 11-05-2022 Bacteria identified Cx Nom (Bld) NO GROWTH 5 DAYS [facility] Basophils Auto (Bld) [#/Vol] Ordered By: Jhonatan Crowell on 11-05-2022 Basophils (Bld) [#/Vol] 0.0 10*3/uL 0.0-0.2 [facility] Basophils/100 WBC Auto (Bld) Ordered By: Jhonatan Crowell on 11-05-2022 Basophils/100 WBC (Bld) 0.6 % . [facility] Bilirubin.total [Mass/volume ] in Serum or PlasmaOrdered By: Jhonatan Crowell on 11-05-2022 Bilirubin [Mass/Vol] 0.5 mg/dL 0.3-1.0 [facility] Blood Cultureon 11-05-2022 Bacteria identified Cx Nom (Bld) NO GROWTH 5 DAYS PERFORMED BY: [place] [address] PATHOLOGIST ARRESTING GEAR OPERATOR IAN ACE M.D. [facility] Comment on above: Performed By: #### L ACTIC, CMP, CBC #### [facility] [address] [place] [id number] [place] Bacteria identified Cx Nom (Bld) NO GROWTH 5 DAYS PERFORMED BY: [place] [address] PATHOLOGIST ARRESTING GEAR OPERATOR IAN ACE M.D. [facility] Comment on above: Performed By: #### L ACTIC, CMP, CBC #### [facility] [address] [place], [place] [id number] [place] Calcium [Mass/volume] in Ser um or PlasmaOrdered By: Jhonatan Crowell on 11-05-2022 Calcium [Mass/Vol] 8.9 mg/dL 8.6-10.3 [facility] Carbon dioxide, total [Moles /volume] in Serum or PlasmaOrdered By: Jhonatan Crowell on 11-05-2022 CO2 [Moles/Vol] 28.5 mmol/L 21.0-31.0 [facility] Chloride [Moles/volume] in S marivel or PlasmaOrdered By: Jhonatan Crowell on 11-05-2022 Chloride [Moles/Vol] 106 mmol/L 98-107 [facility] Complete Blood Count Auto Di ffon 11-05-2022 Basophils (Bld) [#/Vol] 0.0 10*3/uL Normal 0.0-0.2 [facility] Comment on above: Result Comment: PERF ORMED BY: [place] [address] PATHOLOGIST ARRESTING GEAR OPERATOR IAN ACE M.D. Performed By: #### L ACTIC, CMP, CBC #### [facility] [address] [place] [address] Basophils/100 WBC (Bld) 0.6 % Normal . [facility] Comment on above: Performed By: #### L ACTIC, CMP, CBC #### [facility] [address] Eosinophils (Bld) [#/Vol] 0.2 10*3/uL Normal 0.0-0.45 [facility] Comment on above: Performed By: #### L ACTIC, CMP, CBC #### [facility] [address] [place] [address] [place] Eosinophils/100 WBC (Bld) 2.9 % Normal . [facility] Comment on above: Performed By: #### L ACTIC, CMP, CBC #### [facility] [address] [place] [address] Erythrocyte distribution width (RBC) [Ratio] 16.7 % High 11.9-15.3 [facility] Comment on above: Performed By: #### L ACTIC, CMP, CBC #### [facility] [address] [place] [address] Hematocrit (Bld) [Volume fraction] 37.5 % Normal 34.0-46.4 [facility] Comment on above: Performed By: #### L ACTIC, CMP, CBC #### [address] Hemoglobin (Bld) [Mass/Vol] 12.2 g/dL Normal 11.8-15.4 [facility] Comment on above: Performed By: #### L ACTIC, CMP, CBC #### [address] Lymphocytes (Bld) [#/Vol] 0.8 10*3/uL Low 1.00-4.8 [facility] Comment on above: Performed By: #### L ACTIC, CMP, CBC #### [address] Lymphocytes/100 WBC (Bld) 11.3 % Normal . [facility] Comment on above: Performed By: #### L ACTIC, CMP, CBC #### [address] MCH (RBC) [Entitic mass] 25.8 pg Normal 24.7-34.3 [facility] Comment on above: Performed By: #### L ACTIC, CMP, CBC #### [address] MCV (RBC) [Entitic vol] 79.3 fL Low 80-100 [facility] Comment on above: Performed By: #### L ACTIC, CMP, CBC #### [address] Mean Corpuscular HGB Conc 32.5 g/dL Normal 32.0-35.0 [facility] Comment on above: Performed By: #### L ACTIC, CMP, CBC #### [address] Monocytes (Bld) [#/Vol] 0.5 10*3/uL Normal 0.0-0.8 [facility] Comment on above: Performed By: #### L ACTIC, CMP, CBC #### [address] [place] [address] [place] Monocytes/100 WBC (Bld) 16.42 % Normal 0.00-20.00 [facility] Comment on above: Performed By: #### L ACTIC, CMP, CBC #### [facility] [address] [place] [address] [place] Monocytes/100 WBC (Bld) 7.1 % Normal . [facility] Comment on above: Performed By: #### L ACTIC, CMP, CBC #### [facility] [address] [place] [address] [place] Neutrophils (Bld) [#/Vol] 5.4 10*3/uL Normal 1.8-7.7 [facility] Comment on above: Performed By: #### L ACTIC, CMP, CBC #### [facility] [address] [place] [address] [place] Neutrophils/100 WBC (Bld) 78.1 % Normal . [facility] Comment on above: Performed By: #### L ACTIC, CMP, CBC #### [place] [address] [place] NRBC% 0.1 /100{WBC} Normal 0-0.5 [facility] Comment on above: Performed By: #### L ACTIC, CMP, CBC #### [facility] [address] [place] [address] [place] Platelet mean volume (Bld) [Entitic vol] 8.1 fL Normal 6.3-10.7 [facility] Comment on above: Performed By: #### L ACTIC, CMP, CBC #### [facility] [address] [place] [address] [place] Platelets (Bld) [#/Vol] 233 10*3/uL Normal 150-450 [facility] Comment on above: Performed By: #### L ACTIC, CMP, CBC #### [place] [address] [place] RBC (Bld) [#/Vol] 4.73 10*6/uL Normal 3.60-5.00 [facility] Comment on above: Performed By: #### L ACTIC, CMP, CBC #### [address] WBC (Bld) [#/Vol] 6.9 10*3/uL Normal 3.8-11.6 [facility] Comment on above: Performed By: #### L ACTIC, CMP, CBC #### [address] Comprehensive Metabolic Pane jeremy 11-05-2022 Albumin [Mass/Vol] 3.9 g/dL Normal 3.5-5.7 [facility] Comment on above: Performed By: #### L ACTIC, CMP, CBC #### [address] Albumin/Globulin [Mass ratio] 1.3 {ratio} Normal [facility] Comment on above: Performed By: #### L ACTIC, CMP, CBC #### [address] ALP [Catalytic activity/Vol] 77 U/L Normal 34-104 [facility] Comment on above: Performed By: #### L ACTIC, CMP, CBC #### [address] ALT [Catalytic activity/Vol] 20 U/L Normal 7-52 [facility] Comment on above: Performed By: #### L ACTIC, CMP, CBC #### [address] Anion gap [Moles/Vol] 10.6 mmol/L Normal 6.0-15.0 [facility] Comment on above: Performed By: #### L ACTIC, CMP, CBC #### [address] AST [Catalytic activity/Vol] 22 U/L Normal 13-39 [facility] Comment on above: Performed By: #### L ACTIC, CMP, CBC #### [address] Bilirubin [Mass/Vol] 0.5 mg/dL Normal 0.3-1.0 [facility] Comment on above: Performed By: #### L ACTIC, CMP, CBC #### [facility] [address] Calcium [Mass/Vol] 8.9 mg/dL Normal 8.6-10.3 [facility] Comment on above: Performed By: #### L ACTIC, CMP, CBC #### [facility] [address] [place] [address] [place] Chloride [Moles/Vol] 106 mmol/L Normal 98-107 [facility] Comment on above: Performed By: #### L ACTIC, CMP, CBC #### [facility] [address] CO2 [Moles/Vol] 28.5 mmol/L Normal 21.0-31.0 [facility] Comment on above: Performed By: #### L ACTIC, CMP, CBC #### [facility] [address] Creatinine [Mass/Vol] 0.71 mg/dL Normal 0.60-1.20 [facility] Comment on above: Performed By: #### L ACTIC, CMP, CBC #### [facility] [address] [place] [address] [place] Creatinine Clr Calc Pharmacy 100.16 [facility] Comment on above: Result Comment: PERF ORMED BY: [place] [address] PATHOLOGIST ARRESTING GEAR OPERATOR IAN ACE M.D. Performed By: #### L ACTIC, CMP, CBC #### [facility] [address] [place] [address] [place] GFR/1.73 sq M.predicted MDRD (S/P/Bld) [Vol rate/Area] mL/min/{1.73_m2} [facility] Comment on above: Performed By: #### L ACTIC, CMP, CBC #### [facility] [address] Globulin (S) [Mass/Vol] 3.0 g/dL [facility] Comment on above: Performed By: #### L ACTPERCY CMP, CBC #### [facility] [address] [place] [address] [place] Glucose [Mass/Vol] 92 mg/dL Normal 70-100 [facility] Comment on above: Result Comment: [place] Glucose Reference Range is dependent on time and content of last meal. Glucose of more than 200 mg/dL in a nonstressed, ambulatory subject supports the diagnosis of Diabetes Mellitus. ADA recommended reference range Performed By: #### L ALEXX ADLER, CBC #### [facility] [address] Potassium [Moles/Vol] 4.1 mmol/L Normal 3.5-5.1 [facility] Comment on above: Performed By: #### L ALEXX ADLER, CBC #### [facility] [address] Protein [Mass/Vol] 6.9 g/dL Normal 6.4-8.9 [facility] Comment on above: Performed By: #### L VITOR CMP, CBC #### [facility] [address] [place] [address] [place] Sodium [Moles/Vol] 141 mmol/L Normal 136-145 [facility] Comment on above: Performed By: #### L ALEXX ADLER, CBC #### [facility] [address] [place] [id number] [place] Urea nitrogen [Mass/Vol] 18 mg/dL Normal 7-25 [facility] Comment on above: Performed By: #### L ALEXX ADLER, CBC #### [facility] [address] [place] [address] [place] Creatinine [Mass/volume] in Serum or PlasmaOrdered By: Jhonatan Crowell on 11-05-2022 Creatinine [Mass/Vol] 0.71 mg/dL 0.60-1.20 [facility] Eosinophils Auto (Bld) [#/Vo l]Ordered By: Jhonatan Crowell on 11-05-2022 Eosinophils (Bld) [#/Vol] 0.2 10*3/uL 0.0-0.45 [facility] Eosinophils/100 WBC Auto (Bl d)Ordered By: Jhonatan Crowell on 11-05-2022 Eosinophils/100 WBC (Bld) 2.9 % . [facility] Erythrocyte distribution wid th Auto (RBC) [Ratio]Ordered By: Jhonatan Crowell on 11-05-2022 Erythrocyte distribution width (RBC) [Ratio] 16.7 % 11.9-15.3 [facility] Globulin Calc (S) [Mass/Vol] Ordered By: Jhonatan Crowell on 11-05-2022 Globulin (S) [Mass/Vol] 3.0 g/dL [facility] Glucose [Mass/volume] in Ser um or PlasmaOrdered By: Jhonatan Crowell on 11-05-2022 Glucose [Mass/Vol] 92 mg/dL 70-100 [facility] Comment on above: ADA recommended refe rence rangeRandom Glucose Reference Range is dependent on time and content of last meal. Glucose of more than 200 mg/dL in a nonstressed, ambulatory subject supports the diagnosis of Diabetes Mellitus. Hematocrit Auto (Bld) [Volum e fraction]Ordered By: Jhonatan Crowell on 11-05-2022 Hematocrit (Bld) [Volume fraction] 37.5 % 34.0-46.4 [facility] Hemoglobin [Mass/volume] in BloodOrdered By: Jhonatan Crowell on 11-05-2022 Hemoglobin (Bld) [Mass/Vol] 12.2 g/dL 11.8-15.4 [facility] Leukocytes [#/volume] correc julia for nucleated erythrocytes in Blood by Automated counOrdered By: Jhonatan Crowell on 11-05-2022 WBC corrected for nucl RBC Auto (Bld) [#/Vol] 6.9 10*3/uL 3.8-11.6 [facility] Lymphocytes Auto (Bld) [#/Vo l]Ordered By: Jhonatan Crowell on 11-05-2022 Lymphocytes (Bld) [#/Vol] 0.8 10*3/uL 1.00-4.8 [facility] Lymphocytes/100 WBC Auto (Bl d)Ordered By: Jhonatan Crowell on 11-05-2022 Lymphocytes/100 WBC (Bld) 11.3 % . [facility] MCH Auto (RBC) [Entitic mass ]Ordered By: Jhonatan Crowell on 11-05-2022 MCH (RBC) [Entitic mass] 25.8 pg 24.7-34.3 [facility] MCHC Auto (RBC) [Mass/Vol]Or dered By: Jhonatan Crowell on 11-05-2022 MCHC (RBC) [Mass/Vol] 32.5 g/dL 32.0-35.0 [facility] MCV Auto (RBC) [Entitic vol] Ordered By: Jhonatan Crowell on 11-05-2022 MCV (RBC) [Entitic vol] 79.3 fL 80-100 [facility] Monocyte distribution width [Entitic volume] in Blood by AutomatedOrdered By: Jhonatan Crowell on 11-05-2022 Monocyte distribution width Auto (Bld) [Entitic vol] 16.42 % 0.00-20.00 [facility] Monocytes Auto (Bld) [#/Vol] Ordered By: Jhonatan Crowell on 11-05-2022 Monocytes (Bld) [#/Vol] 0.5 10*3/uL 0.0-0.8 [facility] Monocytes/100 WBC Auto (Bld) Ordered By: Jhonatan Crowell on 11-05-2022 Monocytes/100 WBC (Bld) 7.1 % . [facility] Neutrophils Auto (Bld) [#/Vo l]Ordered By: Jhonatan Crowell on 11-05-2022 Neutrophils (Bld) [#/Vol] 5.4 10*3/uL 1.8-7.7 [facility] Neutrophils/100 WBC Auto (Bl d)Ordered By: Jhonatan Crowell on 11-05-2022 Neutrophils/100 WBC (Bld) 78.1 % . [facility] No Panel InformationOrdered By: Jhonatan Crowell on 11-05-2022 Estimated GFR (CKD-EPI) > 60.0 mL/Min [facility] Creatinine Clearance (Chem 100.16 [facility] Nucleated erythrocytes [Pres ence] in Blood by Automated countOrdered By: Jhonatan Crowell on 11-05-2022 Nucleated RBC Auto Ql (Bld) 0.1 /100{WBC} 0-0.5 [facility] Platelet mean volume Auto (B ld) [Entitic vol]Ordered By: Jhonatan Crowell on 11-05-2022 Platelet mean volume (Bld) [Entitic vol] 8.1 fL 6.3-10.7 [facility] Platelets Auto (Bld) [#/Vol] Ordered By: Jhonatan Crowell on 11-05-2022 Platelets (Bld) [#/Vol] 233 10*3/uL 150-450 [facility] Potassium [Moles/volume] in Serum or PlasmaOrdered By: Jhonatan Crowell on 11-05-2022 Potassium [Moles/Vol] 4.1 mmol/L 3.5-5.1 [facility] Protein [Mass/volume] in Ser um or PlasmaOrdered By: Jhonatan Crowell on 11-05-2022 Protein [Mass/Vol] 6.9 g/dL 6.4-8.9 [facility] RBC Auto (Bld) [#/Vol]Ordere d By: Jhonatan Crowell on 11-05-2022 RBC (Bld) [#/Vol] 4.73 10*6/uL 3.60-5.00 [facility] Serum or plasma albumin/glob ulin mass ratioOrdered By: Jhonatan Crowell on 11-05-2022 Albumin/Globulin [Mass ratio] 1.3 {ratio} [facility] Serum or plasma anion gap de terminationOrdered By: Jhonatan Crowell on 11-05-2022 Anion gap [Moles/Vol] 10.6 mmol/L 6.0-15.0 [facility] Sodium [Moles/volume] in Ser um or PlasmaOrdered By: Jhonatan Crowell on 11-05-2022 Sodium [Moles/Vol] 141 mmol/L 136-145 [facility] Urea nitrogen [Mass/volume] in Serum or PlasmaOrdered By: Jhonatan Crowell on 11-05-2022 Urea nitrogen [Mass/Vol] 18 mg/dL 7-25 [facility] WBC Auto (Bld) [#/Vol]Ordere d By: Jhonatan Crowell on 11-05-2022 WBC (Bld) [#/Vol] 6.9 10*3/uL 3.8-11.6 [facility] XR tibia fibula LT 2V*on XR tibia fibula LT 2V* [facility] [place] [address] XRay Report Signed Patient: [place]ia Cesar MR#: [id number] : 1955 Acct:[id number] Age/Sex: 66 / F ADM Date: 11/05/22 [...] Padmini Bethea M.D.11/05/2022 12:27 PM Dictation Location: [place] [address] Transcribed By: [facility] 11/05/22 1227 Dictated By: Padmini Bethea MD 11/05/22 1225 Signed By: 11/05/22 1227 Normal [facility] Alanine aminotransferase [En zymatic activity/volume] in Serum or PlasmaOrdered By: Gerald Theodore on 10-12-2022 ALT [Catalytic activity/Vol] 20 U/L 7-52 [facility] Albumin [Mass/volume] in Ser um or Plasma by Bromocresol green (BCG) dye binding methoOrdered By: Gerald Theodore on 10-12-2022 Albumin BCG dye [Mass/Vol] 3.5 g/dL 3.5-5.7 [facility] Alkaline phosphatase [Enzyma tic activity/volume] in Serum or PlasmaOrdered By: Gerald Theodore on 10-12-2022 ALP [Catalytic activity/Vol] 67 U/L 34-104 [facility] Aspartate aminotransferase [ Enzymatic activity/volume] in Serum or PlasmaOrdered By: Gerald Theodore on 10-12-2022 AST [Catalytic activity/Vol] 23 U/L 13-39 [facility] Bacterial blood cultureOrder ed By: Gerald Theodore on 10-12-2022 Bacteria identified Cx Nom (Bld) NO GROWTH 5 DAYS [facility] Basophils Auto (Bld) [#/Vol] Ordered By: Gerald Theodore on 10-12-2022 Basophils (Bld) [#/Vol] 0.0 10*3/uL 0.0-0.2 [facility] Basophils/100 WBC Auto (Bld) Ordered By: Gerald Theodore on 10-12-2022 Basophils/100 WBC (Bld) 0.5 % . [facility] Bilirubin.total [Mass/volume ] in Serum or PlasmaOrdered By: Gerald Theodore on 10-12-2022 Bilirubin [Mass/Vol] 0.4 mg/dL 0.3-1.0 [facility] Blood Cultureon 10-12-2022 Bacteria identified Cx Nom (Bld) NO GROWTH 5 DAYS PERFORMED BY: [place] [address] PATHOLOGIST ARRESTING GEAR OPERATOR IAN ACE M.D. [facility] Comment on above: Performed By: #### C UBLD, CMP, CBC #### [facility] [address] [place] [id number] [facility] C reactive protein [Mass/vol ume] in Serum or PlasmaOrdered By: Gerald Theodore on 10-12-2022 CRP [Mass/Vol] 1.7 mg/dL 0.0-0.5 [facility] C-Reactive Proteinon 023 C-Reactive Protein 1.7 mg/dL High 0.0-0.5 [facility] Comment on above: Result Comment: PERF ORMED BY: [place] [address] PATHOLOGIST ARRESTING GEAR OPERATOR IAN ACE M.D. Performed By: #### C UBLD, CMP, CBC #### [address] Calcium [Mass/volume] in Ser um or PlasmaOrdered By: Gerald Theodore on 10-12-2022 Calcium [Mass/Vol] 8.4 mg/dL 8.6-10.3 [facility] Carbon dioxide, total [Moles /volume] in Serum or PlasmaOrdered By: Gerald Theodore on 10-12-2022 CO2 [Moles/Vol] 28.5 mmol/L 21.0-31.0 [facility] Chloride [Moles/volume] in S marivel or PlasmaOrdered By: Gerald Theodore on 10-12-2022 Chloride [Moles/Vol] 105 mmol/L 98-107 [facility] Complete Blood Count Auto Di ffon 10-12-2022 Basophils (Bld) [#/Vol] 0.0 10*3/uL Normal 0.0-0.2 [facility] Comment on above: Performed By: #### C UBLD, CMP, CBC #### [address] Basophils/100 WBC (Bld) 0.5 % Normal . [facility] Comment on above: Performed By: #### C UBLD, CMP, CBC #### [place] [address] [place] Eosinophils (Bld) [#/Vol] 0.2 10*3/uL Normal 0.0-0.45 [facility] Comment on above: Performed By: #### C UBLD, CMP, CBC #### [place] [address] [place] Eosinophils/100 WBC (Bld) 1.8 % Normal . [facility] Comment on above: Performed By: #### C UBLD, CMP, CBC #### [address] Erythrocyte distribution width (RBC) [Ratio] 16.3 % High 11.9-15.3 [facility] Comment on above: Performed By: #### C UBLD, CMP, CBC #### [address] Hematocrit (Bld) [Volume fraction] 35.2 % Normal 34.0-46.4 [facility] Comment on above: Performed By: #### C UBLD, CMP, CBC #### [address] Hemoglobin (Bld) [Mass/Vol] 11.2 g/dL Low 11.8-15.4 [facility] Comment on above: Performed By: #### C UBLD, CMP, CBC #### [address] Lymphocytes (Bld) [#/Vol] 0.8 10*3/uL Low 1.00-4.8 [facility] Comment on above: Performed By: #### C UBPREMA, CMP, CBC #### [address] Lymphocytes/100 WBC (Bld) 9.6 % Normal . [facility] Comment on above: Performed By: #### C UBLD, CMP, CBC #### [address] MCH (RBC) [Entitic mass] 25.5 pg Normal 24.7-34.3 [facility] Comment on above: Performed By: #### C UBPREMA, CMP, CBC #### [address] MCV (RBC) [Entitic vol] 80.1 fL Normal 80-100 [facility] Comment on above: Performed By: #### C UBLD, CMP, CBC #### [address] Mean Corpuscular HGB Conc 31.8 g/dL Low 32.0-35.0 [facility] Comment on above: Performed By: #### C UBLD, CMP, CBC #### [address] Monocytes (Bld) [#/Vol] 0.7 10*3/uL Normal 0.0-0.8 [facility] Comment on above: Performed By: #### C UBLD, CMP, CBC #### [facility] [address] [place] [address] [place] Monocytes/100 WBC (Bld) 14.89 % Normal 0.00-20.00 [facility] Comment on above: Performed By: #### C UBLD, CMP, CBC #### [facility] [address] [place] [address] [place] Monocytes/100 WBC (Bld) 7.9 % Normal . [facility] Comment on above: Performed By: #### C UBLD, CMP, CBC #### [facility] [address] [place] [address] [place] Neutrophils (Bld) [#/Vol] 6.9 10*3/uL Normal 1.8-7.7 [facility] Comment on above: Performed By: #### C UBLD, CMP, CBC #### [facility] [address] [place] [address] [place] Neutrophils/100 WBC (Bld) 80.2 % Normal . [facility] Comment on above: Performed By: #### C UBLD, CMP, CBC #### [facility] [address] [place] [address] [place] NRBC% 0.1 /100{WBC} Normal 0-0.5 [facility] Comment on above: Performed By: #### C UBLD, CMP, CBC #### [facility] [address] [place] [address] [place] Platelet mean volume (Bld) [Entitic vol] 7.6 fL Normal 6.3-10.7 [facility] Comment on above: Performed By: #### C UBLD, CMP, CBC #### [facility] [address] [place] [address] [place] Platelets (Bld) [#/Vol] 215 10*3/uL Normal 150-450 [facility] Comment on above: Performed By: #### C UBLD, CMP, CBC #### [facility] [address] [place] [address] [place] RBC (Bld) [#/Vol] 4.39 10*6/uL Normal 3.60-5.00 [facility] Comment on above: Performed By: #### C UBLD, CMP, CBC #### [address] WBC (Bld) [#/Vol] 8.6 10*3/uL Normal 3.8-11.6 [facility] Comment on above: Performed By: #### C UBLD, CMP, CBC #### [address] Comprehensive Metabolic Pane jeremy 10-12-2022 Albumin [Mass/Vol] 3.5 g/dL Normal 3.5-5.7 [facility] Comment on above: Performed By: #### C UBLD, CMP, CBC #### [address] Albumin/Globulin [Mass ratio] 1.4 {ratio} Normal [facility] Comment on above: Performed By: #### C UBLD, CMP, CBC #### [address] ALP [Catalytic activity/Vol] 67 U/L Normal 34-104 [facility] Comment on above: Performed By: #### C UBLD, CMP, CBC #### [address] ALT [Catalytic activity/Vol] 20 U/L Normal 7-52 [facility] Comment on above: Performed By: #### C UBLD, CMP, CBC #### [address] Anion gap [Moles/Vol] 11.1 mmol/L Normal 6.0-15.0 [facility] Comment on above: Performed By: #### C UBLD, CMP, CBC #### [address] AST [Catalytic activity/Vol] 23 U/L Normal 13-39 [facility] Comment on above: Performed By: #### C UBLD, CMP, CBC #### [address] Bilirubin [Mass/Vol] 0.4 mg/dL Normal 0.3-1.0 [facility] Comment on above: Performed By: #### C UBLD, CMP, CBC #### [facility] [address] Calcium [Mass/Vol] 8.4 mg/dL Low 8.6-10.3 [facility] Comment on above: Performed By: #### C UBLD, CMP, CBC #### [facility] [address] Chloride [Moles/Vol] 105 mmol/L Normal 98-107 [facility] Comment on above: Performed By: #### C UBLD, CMP, CBC #### [facility] [address] CO2 [Moles/Vol] 28.5 mmol/L Normal 21.0-31.0 [facility] Comment on above: Performed By: #### C UBLD, CMP, CBC #### [facility] [address] Creatinine [Mass/Vol] 0.69 mg/dL Normal 0.60-1.20 [facility] Comment on above: Performed By: #### C UBLD, CMP, CBC #### [facility] [address] Creatinine Clr Calc Pharmacy 101.06 [facility] Comment on above: Performed By: #### C UBLD, CMP, CBC #### [facility] [address] [place] [address] [place] GFR/1.73 sq M.predicted MDRD (S/P/Bld) [Vol rate/Area] mL/min/{1.73_m2} [facility] Comment on above: Performed By: #### C UBLD, CMP, CBC #### [facility] [address] Globulin (S) [Mass/Vol] 2.5 g/dL [facility] Comment on above: Performed By: #### C UBLD, CMP, CBC #### [facility] [address] [place] [address] [place] Glucose [Mass/Vol] 92 mg/dL Normal 70-100 [facility] Comment on above: Result Comment: [facility] Glucose Reference Range is dependent on time and content of last meal. Glucose of more than 200 mg/dL in a nonstressed, ambulatory subject supports the diagnosis of Diabetes Mellitus. ADA recommended reference range Performed By: #### C UBLD, CMP, CBC #### [facility] [address] Potassium [Moles/Vol] 3.6 mmol/L Normal 3.5-5.1 [facility] Comment on above: Performed By: #### C UBLD, CMP, CBC #### [facility] [address] Protein [Mass/Vol] 6.0 g/dL Low 6.4-8.9 [facility] Comment on above: Performed By: #### C UBLD, CMP, CBC #### [facility] [address] [place] [address] [place] Sodium [Moles/Vol] 141 mmol/L Normal 136-145 [facility] Comment on above: Performed By: #### C UBLD, CMP, CBC #### [facility] [address] Urea nitrogen [Mass/Vol] 20 mg/dL Normal 7-25 [facility] Comment on above: Performed By: #### C UBLD, CMP, CBC #### [facility] [address] Creatinine [Mass/volume] in Serum or PlasmaOrdered By: Gerald Theodore on 10-12-2022 Creatinine [Mass/Vol] 0.69 mg/dL 0.60-1.20 [facility] Eosinophils Auto (Bld) [#/Vo l]Ordered By: Gerald Theodore on 10-12-2022 Eosinophils (Bld) [#/Vol] 0.2 10*3/uL 0.0-0.45 [facility] Eosinophils/100 WBC Auto (Bl d)Ordered By: Gerald Theodore on 10-12-2022 Eosinophils/100 WBC (Bld) 1.8 % . [facility] Erythrocyte Sedimentation Ra emrey 10-12-2022 ESR (Bld) [Velocity] 25 mm/h Normal 0-29 [facility] Comment on above: Result Comment: PERF ORMED BY: [facility] [address] [place] [address] PATHOLOGIST ARRESTING GEAR OPERATOR IAN ACE M.D. Performed By: #### C UBLD, CMP, CBC #### [facility] [address] Erythrocyte distribution wid th Auto (RBC) [Ratio]Ordered By: Gerald Theodore on 10-12-2022 Erythrocyte distribution width (RBC) [Ratio] 16.3 % 11.9-15.3 [facility] Erythrocyte sedimentation ra te by Photometric methodOrdered By: Gerald Theodore on 10-12-2022 ESR Photometric method (Bld) [Velocity] 25 mm/hr 0-29 [facility] Globulin Calc (S) [Mass/Vol] Ordered By: Gerald Theodore on 10-12-2022 Globulin (S) [Mass/Vol] 2.5 g/dL [facility] Glucose [Mass/volume] in Ser um or PlasmaOrdered By: Gerald Theodore on 10-12-2022 Glucose [Mass/Vol] 92 mg/dL 70-100 [facility] Comment on above: ADA recommended refe rence rangeRandom Glucose Reference Range is dependent on time and content of last meal. Glucose of more than 200 mg/dL in a nonstressed, ambulatory subject supports the diagnosis of Diabetes Mellitus. Hematocrit Auto (Bld) [Volum e fraction]Ordered By: Gerald Theodore on 10-12-2022 Hematocrit (Bld) [Volume fraction] 35.2 % 34.0-46.4 [facility] Hemoglobin [Mass/volume] in BloodOrdered By: Gerald Theodore 10-12-2022 Hemoglobin (Bld) [Mass/Vol] 11.2 g/dL 11.8-15.4 [facility] Lactate [Moles/volume] in Se rum or PlasmaOrdered By: Gerald Theodore on 10-12-2022 Lactate [Moles/Vol] 0.6 mmol/L 0.5-2.2 [facility] Lactic Acidon 10-12-2022 Lactate [Moles/Vol] 0.6 mmol/L Normal 0.5-2.2 [facility] Comment on above: Result Comment: PERF ORMED BY: [place] [address] PATHOLOGIST ARRESTING GEAR OPERATOR IAN ACE M.D. Performed By: #### C UBLD, CMP, CBC #### [facility] [address] Leukocytes [#/volume] correc julia for nucleated erythrocytes in Blood by Automated counOrdered By: Gerald Theodore on 10-12-2022 WBC corrected for nucl RBC Auto (Bld) [#/Vol] 8.6 10*3/uL 3.8-11.6 [facility] Lymphocytes Auto (Bld) [#/Vo l]Ordered By: Gerald Theodore on 10-12-2022 Lymphocytes (Bld) [#/Vol] 0.8 10*3/uL 1.00-4.8 [facility] Lymphocytes/100 WBC Auto (Bl d)Ordered By: Gerald Theodore on 10-12-2022 Lymphocytes/100 WBC (Bld) 9.6 % . [facility] MCH Auto (RBC) [Entitic mass ]Ordered By: Gerald Theodore on 10-12-2022 MCH (RBC) [Entitic mass] 25.5 pg 24.7-34.3 [facility] MCHC Auto (RBC) [Mass/Vol]Or dered By: Gerald Theodore on 10-12-2022 MCHC (RBC) [Mass/Vol] 31.8 g/dL 32.0-35.0 [facility] MCV Auto (RBC) [Entitic vol] Ordered By: Gerald Theodore on 10-12-2022 MCV (RBC) [Entitic vol] 80.1 fL 80-100 [facility] Monocyte distribution width [Entitic volume] in Blood by AutomatedOrdered By: Gerald Theodore on 10-12-2022 Monocyte distribution width Auto (Bld) [Entitic vol] 14.89 % 0.00-20.00 [facility] Monocytes Auto (Bld) [#/Vol] Ordered By: Gerald Theodore on 10-12-2022 Monocytes (Bld) [#/Vol] 0.7 10*3/uL 0.0-0.8 [facility] Monocytes/100 WBC Auto (Bld) Ordered By: Gerald Theodore on 10-12-2022 Monocytes/100 WBC (Bld) 7.9 % . [facility] Neutrophils Auto (Bld) [#/Vo l]Ordered By: Gerald Theodore on 10-12-2022 Neutrophils (Bld) [#/Vol] 6.9 10*3/uL 1.8-7.7 [facility] Neutrophils/100 WBC Auto (Bl d)Ordered By: Gerald Theodore on 10-12-2022 Neutrophils/100 WBC (Bld) 80.2 % . [facility] No Panel InformationOrdered By: Gerald Theodore on 10-12-2022 Estimated GFR (CKD-EPI) > 60.0 mL/Min [facility] Creatinine Clearance (Chem 101.06 [facility] Nucleated erythrocytes [Pres ence] in Blood by Automated countOrdered By: Gerald Theodore on 10-12-2022 Nucleated RBC Auto Ql (Bld) 0.1 /100{WBC} 0-0.5 [facility] Platelet mean volume Auto (B ld) [Entitic vol]Ordered By: Gerald Theodore on 10-12-2022 Platelet mean volume (Bld) [Entitic vol] 7.6 fL 6.3-10.7 [facility] Platelets Auto (Bld) [#/Vol] Ordered By: Gerald Theodore on 10-12-2022 Platelets (Bld) [#/Vol] 215 10*3/uL 150-450 [facility] Potassium [Moles/volume] in Serum or PlasmaOrdered By: Gerald Theodore on 10-12-2022 Potassium [Moles/Vol] 3.6 mmol/L 3.5-5.1 [facility] Protein [Mass/volume] in Ser um or PlasmaOrdered By: Gerald Theodore on 10-12-2022 Protein [Mass/Vol] 6.0 g/dL 6.4-8.9 [facility] RBC Auto (Bld) [#/Vol]Ordere d By: Gerald Theodore on 10-12-2022 RBC (Bld) [#/Vol] 4.39 10*6/uL 3.60-5.00 [facility] Serum or plasma albumin/glob ulin mass ratioOrdered By: Gerald Theodore on 10-12-2022 Albumin/Globulin [Mass ratio] 1.4 {ratio} [facility] Serum or plasma anion gap de terminationOrdered By: Gerald Theodore on 10-12-2022 Anion gap [Moles/Vol] 11.1 mmol/L 6.0-15.0 [facility] Sodium [Moles/volume] in Ser um or PlasmaOrdered By: Gerald Theodore on 10-12-2022 Sodium [Moles/Vol] 141 mmol/L 136-145 [facility] Urea nitrogen [Mass/volume] in Serum or PlasmaOrdered By: Gerald Theodore on 10-12-2022 Urea nitrogen [Mass/Vol] 20 mg/dL 7-25 [facility] WBC Auto (Bld) [#/Vol]Ordere d By: Gerald Theodore on 10-12-2022 WBC (Bld) [#/Vol] 8.6 10*3/uL 3.8-11.6 [facility] COVID Quick Testingon 2020 Result Positive [facility] Other Quick Fluon 06-06-2021 FLUAV Ab CF (S) [Titer] Negative Recurve [facility] [employer] Other FLUBV Ab CF (S) [Titer] Negative Recurve [facility] [employer] Other CNOVon 01-26-2017 CNOV Office Visit (CARDFT) ELIZABETH CESAR ([id number]) 1955 [facility] Time Provider Department01/26/17 10:30 AM CARL TY During your visit today, we recorded the following information about you: Pulse Respiration Blood pressure Weight 71/minute 18/minute 162/82 145.2 kg Height 1.613 Rajesh Ty MD 01/26/2017 10:54 AM [facility] InstituteBaldwin and Yesy Dickinson Department of Cardiovascular MedicineOUTPATIENT VISIT DATEAugus2016OUTPATIENT VISIT TYPENEW CONSULTATIONPRFORMERLY [facility] PHYSICIAN:Pepe Fermin, [address] [place] [address] [address]Qkvbu: [phone]: [phone] COMPLAINT:Palpitations and shortness of breathHISTORY OF PRESENT ILLNESS:[place]ia Cesar is a 61 year old female who presents today to [facility].History includes morbid obesity, lymphedema, remote tobacco, [...] shortness of breath she notes yesterday thather cook vegetable broke his pelvis and she tried to [...] 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 Morbid [...] or concerns.Carl Ty M.D.Marcus DickinsonDepartment of Cardiovascular MedicineSamaritan North Health Centerrt and Vascular Institute[address] [address]Vlyfic: [phone] Referring Provider: PEPE FERMIN [[id number]]Allergies As of Date: 01/26/2017(No Known Allergies)Date Reviewed: 01/26/2017Reviewed by: Mario Rodriguez (Eric) REIC Awad - Fully AssessedReason for Visit: Shortness of Breath [227]Primary Visit Diagnosis:Essential hypertension [I10] Other Visit Diagnoses:Obesity, Class III, BMI 40-49.9 (morbid obesity) (HCC) [E66.01] Tobacco abuse [Z72.0] CHUCKIE (obstructive sleep apnea) [G47.33]Order(s):ECHO [040872] Order #: [id number]: 1 FUTUREProblem List As Of Date 01/26/2017 Noted Resolved Obesity, Class III, BMI >= 40 (morbid obesity) *INVALID FOR*Disposition: Return in about 2 months (around 03/28/2017).Follow-up and Disposition History RecordedEncounter Number: [id number] Status:Closed by CARL TY MD on 01/26/17 Normal [facility] PROGRESSon 01-23-2017 PROGRESS HNO ID: [id number] thor: Carl TySer: (none)Author Type: PhysicianType: Progress NotesFiled: 01/26/2017 10:54 AMNote Text:Heart and Vascular InstituteBaldwin and Yesy Dickinson Department of Cardiovascular MedicineOUTPATIENT VISIT DATEAut 2016OUTPATIENT VISIT TYPENEW CONSULTATIONPRFORMERLY [facility] PHYSICIAN:Pepe Fermin, CH[address] [facility] [address] [address]Dgeto: [phone]: [phone] COMPLAINT:Palpitations and shortness of breathHISTORY OF PRESENT ILLNESS:Albania Cesar is a 61 year old female who presents today to [facility]. 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 Morbid [...] or concerns.Carl Ty M.D.Marcus DickinsonDepartment of Cardiovascular MedicineHeart and Vascular InstituteMary Ville [address] [address], [place] [address]Borpxs: [phone] Normal [facility] Vital Signs Date Time Vital Sign Value Performing Clinician Facility 06-09-2023 14:00-0500 Body height 160.02 cm Abimbola Bran Other [facility] Other 06-09-2023 14:00-0500 Body mass index (BMI) [Ratio] 56.27 kg/m2 [facility]imb[facility] Other [facility] Other 06-09-2023 14:00-0500 Body temperature 98.6 [degF] Abimbola Bran Other [facility] Other 06-09-2023 14:00-0500 Body weight 144.11 kg Abimbola Bran Other [facility] Other 06-09-2023 14:00-0500 Diastolic blood pressure 72 mm[Hg] Abimbola Bran Other [facility] Other 06-09-2023 14:00-0500 SaO2% (BldA) [Mass fraction] 98 % [facility]imb[facility] Bran Other [facility] Other 06-09-2023 14:00-0500 Systolic blood pressure 112 mm[Hg] Abimbola Bran Other [facility] Other 04-17-2023 12:27-0500 Body temperature 97.4 [degF] DO Abimbola Bran Work Phone: [facility] 04-17-2023 12:27-0500 Diastolic blood pressure 85 mm[Hg] DO Abimbola Bran Work Phone: [facility] 04-17-2023 12:27-0500 Heart rate 77 /min DO Abimbola Bran Work Phone: [facility] 04-17-2023 12:27-0500 Respiratory rate 18 /min DO Abimbola Bran Work Phone: [facility] 04-17-2023 12:27-0500 SaO2% (BldA) [Mass fraction] 98 % DO Abimbola Bran Work Phone: [facility] 04-17-2023 12:27-0500 Systolic blood pressure 131 mm[Hg] DO Abimbola Bran Work Phone: [facility] 04-17-2023 06:00-0500 Body weight 134 kg DO Abimbola Bran Work Phone: [facility] 04-16-2023 23:45-0500 Inhaled oxygen concentration 30 % DO Abimbola Bran Work Phone: [facility] 04-13-2023 15:46-0500 Body height 161.29 cm DO Abimbola Bran Work Phone: [facility] 04-10-2023 14:48-0400 Body temperature 97.5 [degF] DO Abimbola Bran Work Phone: [facility] 04-10-2023 14:48-0400 Diastolic blood pressure 85 mm[Hg] DO Abimbola Bran Work Phone: [facility] 04-10-2023 14:48-0400 Heart rate 86 /min DO Abimbola Bran Work Phone: [facility] 04-10-2023 14:48-0400 Respiratory rate 18 /min DO Abimbola Bran Work Phone: [facility] 04-10-2023 14:48-0400 SaO2% (BldA) [Mass fraction] 98 % DO Abimbola Bran Work Phone: [facility] 04-10-2023 14:48-0400 Systolic blood pressure 136 mm[Hg] DO Abimbola Bran Work Phone: [facility] 04-10-2023 10:11-0400 Body height 161.29 cm DO Abimbola Bran Work Phone: [facility] 04-10-2023 10:11-0400 Body weight 132.2 kg DO Abimbola Bran Work Phone: [facility] 04-07-2023 08:11-0400 Body temperature 97.1 [degF] DO Abimbola Bran Work Phone: [facility] 04-07-2023 08:11-0400 Diastolic blood pressure 95 mm[Hg] DO Abimbola Bran Work Phone: [facility] 04-07-2023 08:11-0400 Heart rate 86 /min DO Abimbola Bran Work Phone: [facility] 04-07-2023 08:11-0400 Respiratory rate 18 /min DO Abimbola Bran Work Phone: [facility] 04-07-2023 08:11-0400 SaO2% (BldA) [Mass fraction] 99 % DO Abimbola Yina Work Phone: [facility] 04-07-2023 08:11-0400 Systolic blood pressure 183 mm[Hg] DO Abimbola Bran Work Phone: [facility] 04-07-2023 08:08-0400 Body height 160.02 cm DO Abimbola Bran Work Phone: [facility] 04-07-2023 08:08-0400 Body weight 135.62 kg DO Abimbola Bran Work Phone: [facility] 02-24-2023 08:00-0400 Body height 160.02 cm Abimbola Bran Other [facility] Other 02-24-2023 08:00-0400 Body mass index (BMI) [Ratio] 54.02 kg/m2 Abimbola Bran Other [facility] Other 02-24-2023 08:00-0400 Body weight 138.35 kg Abimbola Bran Other [facility] Other 02-24-2023 08:00-0400 Diastolic blood pressure 82 mm[Hg] Abimbola Bran Other [facility] Other 02-24-2023 08:00-0400 Respiratory rate 18 /min Abimbola Bran Other [facility] Other 02-24-2023 08:00-0400 SaO2% (BldA) [Mass fraction] 97 % Abimbola Bran Other [facility] Other 02-24-2023 08:00-0400 Systolic blood pressure 122 mm[Hg] Abimbola Bran Other [facility] Other 02-03-2023 10:36-0400 Body height 160.02 cm PHYSICIAN NO [facility] 02-03-2023 10:36-0400 Body mass index (BMI) [Ratio] 59.3 kg/m2 PHYSICIAN NO [facility] 02-03-2023 10:36-0400 Body weight 151.95 kg PHYSICIAN NO [facility] 02-03-2023 09:30-0400 Body temperature 97.3 [degF] PHYSICIAN NO [facility] 02-03-2023 09:30-0400 Diastolic blood pressure 79 mm[Hg] PHYSICIAN NO [facility] 02-03-2023 09:30-0400 Heart rate 76 /min PHYSICIAN NO [facility] 02-03-2023 09:30-0400 Respiratory rate 20 /min PHYSICIAN NO [facility] 02-03-2023 09:30-0400 Systolic blood pressure 175 mm[Hg] PHYSICIAN NO [facility] 01-19-2023 08:30-0400 Body height 160.02 cm Abimbola Bran Other [facility] Other 01-19-2023 08:30-0400 Body mass index (BMI) [Ratio] 59.42 kg/m2 Abimbola Bran Other [facility] Other 01-19-2023 08:30-0400 Body temperature 98.3 [degF] Abimbolaconnor Bran Other [facility] Other 01-19-2023 08:30-0400 Body weight 152.18 kg Abimbolaconnor Bran Other [facility] Other 01-19-2023 08:30-0400 Diastolic blood pressure 76 mm[Hg] Abimbola Bran Other [facility] Other 01-19-2023 08:30-0400 Respiratory rate 18 /min Abimbolaconnor Bran Other [facility] Other 01-19-2023 08:30-0400 SaO2% (BldA) [Mass fraction] 97 % Abimbola Bran Other [facility] Other 01-19-2023 08:30-0400 Systolic blood pressure 120 mm[Hg] Abimbola Bran Other [facility] Other 12-31-2022 15:03-0400 Diastolic blood pressure 76 mm[Hg] PHYSICIAN NO [facility] 12-31-2022 15:03-0400 Heart rate 86 /min PHYSICIAN NO [facility] 12-31-2022 15:03-0400 Respiratory rate 20 /min PHYSICIAN NO [facility] 12-31-2022 15:03-0400 SaO2% (BldA) [Mass fraction] 96 % PHYSICIAN NO [facility] 12-31-2022 15:03-0400 Systolic blood pressure 166 mm[Hg] PHYSICIAN NO [facility] 12-31-2022 11:29-0400 Body height 160.02 cm PHYSICIAN NO [facility] 12-31-2022 11:29-0400 Body temperature 97.4 [degF] PHYSICIAN NO [facility] 12-31-2022 11:29-0400 Body weight 145.14 kg PHYSICIAN NO [facility] 12-29-2022 13:45-0400 Body height 160.02 cm Laith Cralson Other [facility] Other 12-29-2022 13:45-0400 Body mass index (BMI) [Ratio] 56.68 kg/m2 Laith Carlson Other [facility] Other 12-29-2022 13:45-0400 Body temperature 98.4 [degF] Laith Carlson Other [facility] Other 12-29-2022 13:45-0400 Body weight 145.15 kg Laith Carlson Other [facility] Other 12-29-2022 13:45-0400 Diastolic blood pressure 78 mm[Hg] Laith Carlson Other [facility] Other 12-29-2022 13:45-0400 Systolic blood pressure 153 mm[Hg] Laith Carlson Other [facility] Other 12-14-2022 01:34-0400 Diastolic blood pressure 80 mm[Hg] PHYSICIAN NO [facility] 12-14-2022 01:34-0400 Heart rate 75 /min PHYSICIAN NO [facility] 12-14-2022 01:34-0400 Respiratory rate 18 /min PHYSICIAN NO [facility] 12-14-2022 01:34-0400 SaO2% (BldA) [Mass fraction] 98 % PHYSICIAN NO [facility] 12-14-2022 01:34-0400 Systolic blood pressure 165 mm[Hg] PHYSICIAN NO [facility] 12-13-2022 23:53-0400 Body temperature 97.7 [degF] PHYSICIAN NO [facility] 12-13-2022 21:24-0400 Body height 160.02 cm PHYSICIAN NO [facility] 12-13-2022 21:24-0400 Body weight 153.5 kg PHYSICIAN NO [facility] 12-08-2022 08:18-0400 Diastolic blood pressure 53 mm[Hg] PHYSICIAN NO [facility] 12-08-2022 08:18-0400 Heart rate 56 /min PHYSICIAN NO [facility] 12-08-2022 08:18-0400 Systolic blood pressure 101 mm[Hg] PHYSICIAN NO [facility] 12-05-2022 08:22-0400 Body temperature 97.7 [degF] PHYSICIAN NO [facility] 12-02-2022 09:00-0400 Respiratory rate 18 /min PHYSICIAN NO [facility] 12-02-2022 09:00-0400 SaO2% (BldA) [Mass fraction] 96 % PHYSICIAN NO [facility] 12-01-2022 20:48-0400 Diastolic blood pressure 66 mm[Hg] PHYSICIAN NO [facility] 12-01-2022 20:48-0400 Heart rate 72 /min PHYSICIAN NO [facility] 12-01-2022 20:48-0400 Respiratory rate 21 /min PHYSICIAN NO [facility] 12-01-2022 20:48-0400 SaO2% (BldA) [Mass fraction] 97 % PHYSICIAN NO [facility] 12-01-2022 20:48-0400 Systolic blood pressure 137 mm[Hg] PHYSICIAN NO [facility] 12-01-2022 18:20-0400 Body height 160.02 cm PHYSICIAN NO [facility] 12-01-2022 18:20-0400 Body temperature 98.1 [degF] PHYSICIAN NO [facility] 12-01-2022 18:20-0400 Body weight 151.2 kg PHYSICIAN NO [facility] 11-24-2022 08:43-0400 Body height 160.02 cm PHYSICIAN NO [facility] 11-24-2022 08:43-0400 Body mass index (BMI) [Ratio] 58.4 kg/m2 PHYSICIAN NO [facility] 11-24-2022 08:43-0400 Body weight 149.68 kg PHYSICIAN NO [facility] 11-24-2022 08:27-0400 Body temperature 98.1 [degF] PHYSICIAN NO [facility] 11-24-2022 08:27-0400 Diastolic blood pressure 97 mm[Hg] PHYSICIAN NO [facility] 11-24-2022 08:27-0400 Heart rate 78 /min PHYSICIAN NO [facility] 11-24-2022 08:27-0400 Respiratory rate 24 /min PHYS[facility]IAN NO [facility] [facility] 11-24-2022 08:27-0400 Systolic blood pressure 159 mm[Hg] PHYSICIAN NO [facility] 11-06-2022 10:30-0400 Body temperature 97.5 [degF] PHYSICIAN NO [facility] 11-06-2022 10:30-0400 Diastolic blood pressure 80 mm[Hg] PHYSICIAN NO [facility] 11-06-2022 10:30-0400 Heart rate 71 /min PHYSICIAN NO [facility] 11-06-2022 10:30-0400 Systolic blood pressure 146 mm[Hg] PHYSICIAN NO [facility] 11-05-2022 14:05-0400 Diastolic blood pressure 82 mm[Hg] PHYSICIAN NO [facility] 11-05-2022 14:05-0400 Heart rate 90 /min PHYSICIAN NO [facility] 11-05-2022 14:05-0400 Respiratory rate 18 /min PHYSICIAN NO [facility] 11-05-2022 14:05-0400 SaO2% (BldA) [Mass fraction] 92 % PHYSICIAN NO [facility] 11-05-2022 14:05-0400 Systolic blood pressure 180 mm[Hg] PHYSICIAN NO [facility] 11-05-2022 11:46-0400 Body height 161.29 cm PHYSICIAN NO [facility] 11-05-2022 11:46-0400 Body temperature 98 [degF] PHYSICIAN NO [facility] 11-05-2022 11:46-0400 Body weight 147.65 kg PHYSICIAN NO [facility] 10-30-2022 15:13-0400 Body temperature 98.6 [degF] PHYSICIAN NO [facility] 10-30-2022 15:13-0400 Diastolic blood pressure 95 mm[Hg] PHYSICIAN NO [facility] 10-30-2022 15:13-0400 Heart rate 86 /min PHYSICIAN NO [facility] 10-30-2022 15:13-0400 Respiratory rate 20 /min PHYSICIAN NO [facility] 10-30-2022 15:13-0400 Systolic blood pressure 186 mm[Hg] PHYSICIAN NO [facility] 10-21-2022 11:17-0400 Body height 160.02 cm PHYSICIAN NO [facility] 10-21-2022 11:17-0400 Body mass index (BMI) [Ratio] 58.4 kg/m2 PHYSICIAN NO [facility] 10-21-2022 11:17-0400 Body weight 149.68 kg PHYSICIAN NO [facility] 10-17-2022 20:25-0400 Body temperature 97.9 [degF] PHYSICIAN NO [facility] 10-17-2022 20:25-0400 Diastolic blood pressure 91 mm[Hg] PHYSICIAN NO [facility] 10-17-2022 20:25-0400 Heart rate 70 /min PHYSICIAN NO [facility] 10-17-2022 20:25-0400 Respiratory rate 17 /min PHYSICIAN NO [facility] 10-17-2022 20:25-0400 SaO2% (BldA) [Mass fraction] 95 % PHYSICIAN NO [facility] 10-17-2022 20:25-0400 Systolic blood pressure 165 mm[Hg] PHYSICIAN NO [facility] 10-12-2022 19:31-0400 Diastolic blood pressure 78 mm[Hg] PHYSICIAN NO [facility] 10-12-2022 19:31-0400 Heart rate 80 /min PHYSICIAN NO [facility] 10-12-2022 19:31-0400 Respiratory rate 18 /min PHYSICIAN NO [facility] 10-12-2022 19:31-0400 SaO2% (BldA) [Mass fraction] 98 % PHYSICIAN NO [facility] 10-12-2022 19:31-0400 Systolic blood pressure 138 mm[Hg] PHYSICIAN NO [facility] 10-12-2022 17:48-0400 Body height 160.02 cm PHYSICIAN NO [facility] 10-12-2022 17:48-0400 Body temperature 98.7 [degF] PHYSICIAN NO [facility] 10-12-2022 17:48-0400 Body weight 149.68 kg PHYSICIAN NO [facility] 06-06-2021 18:30-0500 Body height 160.02 cm Shayla Ginty Other [facility] Other 06-06-2021 18:30-0500 Body mass index (BMI) [Ratio] 51.37 kg/m2 Shayla Ginty Other [facility] Other 06-06-2021 18:30-0500 Body temperature 97.2 [degF] Shayla Ginty Other [facility] Other 06-06-2021 18:30-0500 Body weight 131.54 kg Shayla Ginty Other [facility] Other 06-06-2021 18:30-0500 Respiratory rate 18 /min Shayla Ginty Other [facility] Other 06-06-2021 18:30-0500 SaO2% (BldA) [Mass fraction] 93 % Shayla Ginty Other [facility] Other Encounters Encounter Date Encounter Type Care Provider Facility Start: 07-07-2023 End: 07-07-2023 ambulatory Abimbola Bran Other [facility] Other Start: 07-07-2023 Telephone encounter Abimbola PAND[facility] Start: 06-15-2023 End: 06-15-2023 ambulatory Abimbolamichael Bran Other [facility] Other Start: 06-15-2023 Telephone encounter Abimbola PAND[facility] Start: 06-09-2023 End: 06-09-2023 ambulatory Abimbolamichael Bran Other [facility] Other Start: 06-09-2023 Office outpatient visit 25 minutes Abimbolaconnor Bran [facility] Start: 06-09-2023 Telephone encounter Abimbola Bran [facility] Start: 04-20-2023 End: 04-20-2023 ambulatory Abimbola Bran Other [facility] Other Start: 04-20-2023 Telephone encounter Abimbola Bran [facility] Start: 04-10-2023 End: 04-17-2023 Evaluation and management of inpatient Laith Robyn Facility:[facility] Start: 04-10-2023 End: 04-17-2023 Evaluation and management of inpatient DO Abimbola Bran Work Phone: [facility] [place] [facility] Work Phone: Start: 04-07-2023 End: 04-07-2023 Emergency department patient visit Jhonatan Crowell Facility:[facility] Start: 04-07-2023 End: 04-07-2023 Emergency department patient visit DO Abimbola Bran Work Phone: [facility] Work Phone: Start: 02-24-2023 End: 02-24-2023 ambulatory Abimbola Bran Other [facility] Other Start: 02-24-2023 Office outpatient visit 15 minutes Abimbola Bran [facility] Start: 02-03-2023 End: 02-03-2023 ambulatory Abimbola Bran Facility:[facility] Start: 02-03-2023 End: 02-03-2023 ambulatory PHYSICIAN NO [facility] Work Phone: Start: 02-03-2023 End: 02-03-2023 Discharged Recurring PHYSICIAN NO [facility] [place] Work Phone: Start: 02-03-2023 Registered Recurring PHYSICIAN NO [facility] Work Phone: Start: 02-02-2023 End: 02-03-2023 ambulatory Laith Carlson Facility:[facility] Start: 02-02-2023 End: 02-02-2023 ambulatory PHYSICIAN NO [facility] Work Phone: Start: 02-02-2023 End: 02-02-2023 Discharged Recurring PHYSICIAN NO [facility]-Infusion Therapy - O/P Work Phone: Start: 01-27-2023 End: 01-27-2023 ambulatory Abimbola Bran Other [facility] Other Start: 01-27-2023 Telephone encounter Abimbola Bran [facility] Start: 01-20-2023 End: 01-20-2023 ambulatory Laith Carlson Other [facility] Other Start: 01-20-2023 Telephone encounter Laith Carlson [facility] Start: 01-19-2023 End: 01-19-2023 ambulatory Abimbola Bran Other [facility] Other Start: 01-19-2023 Office outpatient ne w 45 minutes Abimbola PANDYA [facility] Start: 01-06-2023 End: 01-06-2023 ambulatory Laith Carlson Other [facility] Other Start: 01-06-2023 Telephone encounter Laith Carlson [facility] Start: 12-31-2022 End: 12-31-2022 ambulatory Abimbola Bran Other [facility] Other Start: 12-31-2022 Telephone encounter Abimbola Bran [facility] Start: 12-31-2022 End: 12-31-2022 Emergency department patient visit Abimbola Michael Yina Facility:[facility] Start: 12-31-2022 End: 12-31-2022 Emergency department patient visit PHYSICIAN NO [facility]-Emergency [facility] Work Phone: Start: 12-29-2022 End: 12-29-2022 ambulatory Laith Carlson Other [facility] Other Start: 12-29-2022 Office outpatient ne w 45 minutes Laith PANDYA [facility] Start: 12-19-2022 End: 12-19-2022 ambulatory PHYSICIAN NO FAMILY Facility:[facility] Start: 12-19-2022 End: 12-19-2022 Discharged Recurring PHYSICIAN NO [facility]-Dietary [facility] [address] Start: 12-15-2022 End: 12-15-2022 ambulatory Abimbola Bran Other [facility] Other Start: 12-15-2022 Telephone encounter Abimbola Bran [facility] Start: 12-13-2022 End: 12-14-2022 Emergency department patient visit Abimbola Michael Yina Facility:[facility] Start: 12-13-2022 End: 12-14-2022 Emergency department patient visit PHYSICIAN NO [facility]Emergency Room Work Phone: Start: 12-08-2022 End: 12-09-2022 ambulatory Laith Warner Facility:[facility] Start: 12-08-2022 End: 12-08-2022 Discharged Recurring PHYSICIAN NO [facility]-Infusion Therapy - O/P Work Phone: Start: 12-05-2022 Registered Recurring PHYSICIAN NO [facility]Dietary Super[facility] [address] Start: 12-01-2022 End: 12-01-2022 Emergency department patient visit Laith Warner Facility:[facility] Start: 12-01-2022 End: 12-01-2022 Emergency department patient visit PHYSICIAN NO [facility]Emergency [facility] Work Phone: Start: 11-28-2022 Registered Recurring PHYSICIAN NO [facility] [address] Start: 11-24-2022 End: 11-24-2022 ambulatory Evelyn Leon Facility:[facility] Start: 11-24-2022 End: 11-24-2022 Discharged Recurring PHYSICIAN NO [facility] Work Phone: Start: 11-24-2022 Registered Recurring PHYSICIAN NO [facility] Work Phone: Start: 11-07-2022 End: 11-07-2022 ambulatory PHYSICIAN NO FAMILY Facility:[facility] Start: 11-07-2022 End: 11-07-2022 Discharged Recurring PHYSICIAN NO [facility]Infusion [facility] - O/P Work Phone: Start: 11-07-2022 Registered Recurring PHYSICIAN NO [facility]Infusion Therapy - O/P Work Phone: Start: 11-05-2022 Registered Recurring PHYSICIAN NO [facility]Infusion Therapy - O/P Work Phone: Start: 11-05-2022 End: 11-05-2022 Emergency department patient visit PHYSICIAN NO FAMILY Facility:[facility] Start: 11-05-2022 End: 11-05-2022 Emergency department patient visit PHYSICIAN NO [facility]Emergency [facility] Work Phone: Start: 11-05-2022 Registered Recurring PHYSICIAN NO JONATHAN [facility]-Dietary Super[facility] [address] Start: 10-30-2022 Registered Recurring PHYSICIAN NO [facility] Work Phone: Start: 10-17-2022 End: 10-17-2022 ambulatory Gerald Theodore Facility:[facility] Start: 10-17-2022 End: 10-17-2022 ambulatory PHYSICIAN NO [facility] Work Phone: Start: 10-17-2022 End: 10-17-2022 Discharged Recurring PHYSICIAN NO [facility]Infusion Therapy - O/P Work Phone: Start: 10-17-2022 Registered Recurring PHYSICIAN NO [facility]Infusion Therapy - O/P Work Phone: Start: 10-12-2022 End: 10-12-2022 Emergency department patient visit Gerald Theodore Facility:[facility] Start: 10-12-2022 End: 10-12-2022 Emergency department patient visit PHYSICIAN NO [facility]Emer[facility] Work Phone: Start: 06-06-2021 End: 06-06-2021 ambulatory Shayla Motta Other [facility] Other Start: 06-06-2021 Office outpatient visit 15 minutes Shayla Motta [facility] [place] Start: 01-26-2017 End: 02-03-2017 Ambulatory CARL [facility] Procedures Date Procedure Procedure Detail Performing Clinician Start: 04-15-2023 Insertion of periphe rally inserted central catheter DO Abimbola Bran Work Phone: Start: 04-15-2023 Ultrasonography of abdomen DO Abimbola Bran Work Phone: Start: 04-13-2023 Duplex scan of lower limb veins DO Abimbola Bran Work Phone: Start: 04-11-2023 Blood culture for ba cteria, including anaerobic screen DO Abimbola Uniplaces Work Phone: Start: 04-11-2023 Plain chest X-ray DO Gl oria Bran Work Phone: Start: 04-10-2023 Urine culture DO Abimbola Uniplaces Work Phone: Start: 04-07-2023 Plain X-ray of bilat eral tibia and bilateral fibula DO Abimbola Uniplaces Work Phone: Start: 12-13-2022 Aerobic microbial culture PHYSICIAN NO FAMILY Start: 12-01-2022 Blood culture for ba cteria, including anaerobic screen PHYSICIAN NO FAMILY Start: 11-05-2022 Blood culture for ba cteria, including anaerobic screen PHYSICIAN NO FAMILY Start: 11-05-2022 Plain X-ray of left tibia and left fibula PHYSICIAN NO FAMILY Start: 10-12-2022 Blood culture for ba cteria, including anaerobic screen PHYSICIAN NO FAMILY Plan of Treatment Date Care Activity Detail Author Start: 04-16-2023 [facility] Start: 04-15-2023 Insertion of peripherally inserted central catheter [facility] Start: 04-13-2023 Referral to infectio us diseases physician [facility] Start: 04-10-2023 Hospital admission [facility] Start: 04-10-2023 [facility] Start: 04-10-2023 Aerobic microbial culture Superficial Wound Culture [facility] Start: 04-10-2023 Bacteria identified in Blood by Culture [facility] Start: 04-10-2023 Bacteria identified in Urine by Culture [facility] Start: 12-13-2022 Superficial Wound Culture Superficial Wound Culture [facility] Start: 12-01-2022 Bacteria identified in Blood by Culture [facility] Start: 11-05-2022 Bacteria identified in Blood by Culture [facility] Start: 10-12-2022 Bacteria identified in Blood by Culture [facility] Bacteria identified in Unspecified specimen by Aerobe culture [facility] Blood chemistry [facility] Patient Education [facility] Work Phone: Patient referral [facility] Work Phone: Immunizations Immunization Date Immunization Notes Care Provider Jonathan rowland 01-19-2023 Prevnar 20 Abimbola Bran Other [facility] Other NEGATED: Highlighted row has not occurred!01-19-2023 influenza, seasonal, injectable Patient Objection Abimbola Bran Other [facility] Other Payers Date Payer Category Payer Unknown [id number] 2023 Unknown [id number] 2022 Unknown [id number] 2022 Medicare [id number] 2022 Self-pay [id number] 2022 Unknown [id number] 2015 Unknown Brenda BC/BS BRIANNA [id number] 2 [id number] Unknown [id number] Unknown [id number] Unknown [id number] .. [id number] Unknown [id number] 2.16.8 40.1.129829.3.579.2.531 Unknown [id number] 2.16.8 40.1.638268.3.579.2.531 Unknown [id number] 2.16.8 40.1.071899.3.579.2.531 Unknown [id number] 2.16.8 40.1.002775.3.579.2.531 Unknown [id number] 2.16.8 40.1.602315.3.579.2.531 Unknown [id number] 2.16.8 40.1.291040.3.579.2.531 Unknown [id number] 2.16.8 40.1.141870.3.579.2.531 Unknown [id number] 2.16.8 40.1.618607.3.579.2.531 Unknown [id number] 2.16.8 40.1.092041.3.579.2.531 Unknown [id number] 2.16.8 40.1.315410.3.579.2.531 Unknown [id number] 2.16.8 40.1.497566.3.579.2.531 Unknown [id number] 2.16.8 40.1.467867.3.579.2.531 Unknown [id number] 2.16.8 40.1.150510.3.579.2.531 Unknown [id number] 2.16.8 40.1.336765.3.579.2.531 Social History Date Type Detail Facility Sex Assigned At [facility] [employer] Other Start: 10-12-2022 End: 04-07-2023 Tobacco smoking status SDIS Never smoked tobacco (finding) [facility] Start: 1955 Sex Assigned At Female F [facility] Start: 11-05-2022 End: 04-13-2023 Tobacco smoking status NHIS Ex-smoker (finding) [facility] Goals Date Patient Goal Desired Activity /State Functional Status Date Assessment Result Facility 04-17-2023 Functional status Patient at [facility] Work Phone: 04-10-2023 Functional status Patient at [facility] Work Phone: Mental Status Date Assessment Result Facility 04-17-2023 Cognitive function Cognitive Sta tus Patient at Baseline [facility] Work Phone: 04-10-2023 Cognitive function Cognitive Sta tus Patient at Baseline [facility] Work Phone: Clinical Notes 06-06-2021 to 07-07-2023 Note Date & Type Note Facility 07-07-2023 Evaluation note Encounter Date Diagnosis Assessment Notes Jun, 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 Has significant pain with dressing changes, can [...] of furosemide, would greatly benefit form SCDs. Recurve [facility] [employer] Other 11-10-2023 Progress note Author Selvin Bey [facility] April 17, 2023 9:42am Note Date/Time April 17, 2023 9:42am [facility] [address] [place] [address] Hospitalist Progress Note Signed Patient: Albania Cesar MR#: [id number] : 1955 Acct:[id number] Age/Sex: 67 / F Adm Date: 3 Loc: Room: 6L9365-6 Type: ADM IN Attending Dr: Selvin Bey [...] mg 04/16/23 20:26 Bisacodyl 10 Mg Supp.Rect ME 04/15/24 20:25 DAILY PRN Constipation Celecoxib 100 [...] Plan is to [facility] patient to the [facility] for wound care and intravenous antibiotic for [...] PRN, oxycodone 5 mg Q6H PRN, Tylenol [id number]. -Continue Celebrex 100 mg twice daily. Patient [...] consider gastric bypass Patient is moving to [facility] on discharge. IV antibiotics continued to maximize benefit of going to this facility. PICC line ordered and antibiotics switched to ertapenem. Documented By: Selvin Bey MD 04/17/23939 Signed By: <Electronically signed by Selvin Bey MD> 04/17/23941 [facility] Work Phone: 1(470) 779-336911-09-2023 Discharge summary Author Selvin Bey [facility] April 16, 2023 12:03pm Note Date/Time April 16, 2023 1 1:58am [facility] [address] [place] [address] Discharge Summary Signed Patient: Albania Cesar MR#: [id number] : 1955 Acct:[id number] Age/Sex: 67 / F Adm Date: 3 Loc: Room: [address] [place] [address]: Selvin Bey MD Copies to: DO Selvin Monteiro MD~ Providers Date of Discharge: 04/16/23 Discharging [...] and treatment. Patient is also following at [place] regarding lymphedema and appears to be getting [...] hospital stay. Patient will be going to [place] long-term facility on discharge. PICC line placed and antibiotic [...] ask her primary care doctor to obtain [facility] record entirely to address abnormalities seen on [...] HCV RNA (PCR) IU/mL N/A, HCVRNA PCR hat copyist log10 N/A, Hepatitis C Interp Exam Physical [...] TID PRN (Reason: Pain) Other Ambulatory Orders: GRAB DRIVER polysom procedure (Routine) Timeframe: [id number] Location: Determined by Patient Ordered By: Selvin Bey Follow Up: [facility] Central Scheduling [Outside] (Centralized scheduling will contact you to arrange an outpatient sleep study once insurance approves. Please call the office if you have any questions. ) Laith Carlson MD [Active Staff] - Abimbola Bran DO [Primary Care Provider] - (Please call to arrange a follow-up appointment once discharged from SNF. ) Documented By: Selvin Bey MD 04/16/23 0808 Signed By: <Electronically signed by Selvin Bey MD> 04/16/23 1203 [facility] Work Phone: 1(126) 522-771111-09-2023 Progress note Author Laith Carlson [facility] April 16, 2023 9:18am Note Date/Time April 16, 2023 9 :15am [facility] [address] [place] [address] Infect. Disease Progress Note Signed Patient: Albania Cesar MR#: [id number] : 1955 Acct:[id number] Age/Sex: 67 / F Adm Date: 3 Loc: Room: [address] [place] [address] Type: ADM IN Attending Dr: Selvin Bey [...] 325 Mg Tablet) 650 mg PO Q8H [facility] Stop: 04/10/24 10:14 Last Admin: 04/16/23 03:21 Dose: 650 mg Celecoxib (Celecoxib 100 Mg Capsule) 100 mg PO BID [facility] Stop: 04/13/24 20:59 Last Admin: 04/16/23 08:04 Dose: 100 mg Enoxaparin Sodium (Enoxaparin 40 Mg/0.4 Ml Syringe) 40 mg SUBCUT Q12HR.10A.10P [facility] Stop: 04/12/24 21:59 Last Admin: 04/15/23 10:23 Dose: 40 mg Hydromorphone HCl (Hydromorphone 1 Mg/Ml Syringe) 0.5 mg IV-PUSH DAILY PRN PRN Reason: Wound dressing Last Admin: 04/15/23 11:38 Dose: 0.5 mg Ertapenem (Invanz) 1 gm in 100 mls @ 200 mls/hr IV Q24H [facility] Last Infusion: 04/15/23 10:53 Dose: Infused Ondansetron [...] 40 Mg Tablet.Dr) 40 mg PO DAILY [facility] Stop: 04/10/24 10:29 Last Admin: 04/16/23 08:04 Dose: 40 mg Potassium Phos/Sodium Phos (Sodium, Potassium Phosphates 1 Each Powd.Pack) 1 each PO TID.PC.HS [facility] Stop: 04/13/24 13:09 Last Admin: 04/16/23 08:04 Dose: 1 each Pregabalin (Pregabalin 50 Mg Capsule) 50 mg PO BID [facility] Stop: 10/12/23 12:14 Last Admin: 04/16/23 08:04 [...] She is post to go to the [place] today. Planning 2 to 3 weeks of [place] ertapenem. Aggressive wound care to be continued. Documented By: Laith Carlson MD 04/16/23912 Signed By: <Electronically signed by MD Laith Carlson> 04/16/23917 [facility] Work Phone: 1(212) 927-379811-08-2023 Progress note Author Selvin Bey [facility] April 15, 2023 12:09pm Note Date/Time April 15, 2023 1 2:09pm [facility] [address] [place] [address] Hospitalist Progress Note Signed Patient: Albania Cesar MR#: [id number] : 1955 Acct:[id number] Age/Sex: 67 / F Adm Date: 3 Loc: Room: [address] [place] [address] Type: ADM IN Attending Dr: Selvin Bey MD Copies to: ~ Date of Service: 04/15/2023 Subjective Subjective Narrative: Ms. Cesar is sitting in her chair when I enter the room. She says she is feeling better today. She is still experiencing pain in her lower extremities bilaterally. She says the Dilaudid has helped with pain. She tells me she is going to [place] long-term facility on discharge. She is rating her [...] The patient will be going to a long-term facility to facilitate identified infusion and wound [...] PRN, oxycodone 5 mg Q6H PRN, Tylenol [id number]. -Continue Celebrex 100 mg twice daily. Patient [...] consider gastric bypass Patient is moving to [facility] on discharge. IV antibiotics continued to maximize benefit of going to this facility. PICC line ordered and antibiotics switched to ertapenem. Documented By: Selvin Bey MD 04/15/23 1005 Signed By: <Electronically signed by Selvin Bey MD> 04/15/23 1209 [facility] Work Phone: 1(655) 341-650711-08-2023 Hospital Discharge instructions Additional Instructions SNF to [...] 90% -Care to be managed by SNF providers.[facility] Work Phone: 1(445) 657-735211-08-2023 Progress note Author Laith Carlson [facility] April 15, 2023 9:25am Note Date/Time April 15, 2023 9 :16am [facility] [address] [place] [address] Infect. Disease Progress Note Signed Patient: Albania Cesar MR#: [id number] : 1955 Acct:[id number] Age/Sex: 67 / F Adm Date: 3 Loc: 4P Room: 1V4590-7 Type: ADM IN Attending Dr: Selvin Bey [...] 325 Mg Tablet) 650 mg PO Q8H [facility] Stop: 04/10/24 10:14 Last Admin: 04/15/23 03:39 Dose: 650 mg Celecoxib (Celecoxib 100 Mg Capsule) 100 mg PO BID [facility] Stop: 04/13/24 20:59 Last Admin: 04/15/23 08:24 Dose: 100 mg Enoxaparin Sodium (Enoxaparin 40 Mg/0.4 Ml Syringe) 40 mg SUBCUT Q12HR.10A.10P [facility] Stop: 04/12/24 21:59 Last Admin: 04/14/23 21:19 Dose: 40 mg Hydromorphone HCl (Hydromorphone 1 Mg/Ml Syringe) 0.5 mg IV-PUSH DAILY PRN PRN Reason: Wound dressing Last Admin: 04/14/23 09:24 Dose: 0.5 mg Cefepime HCl (Maxipime) 2 gm in 50 mls @ 100 mls/hr IV Q12H [facility] Last Admin: 04/15/23 05:19 Dose: 100 mls/hr [...] 40 Mg Tablet.Dr) 40 mg PO DAILY [facility] Stop: 04/10/24 10:29 Last Admin: 04/15/23 08:24 Dose: 40 mg Potassium Phos/Sodium Phos (Sodium, Potassium Phosphates 1 Each Powd.Pack) 1 each PO TID.PC.HS [facility] Stop: 04/13/24 13:09 Last Admin: 04/15/23 08:24 [...] patient tells me she is going to [place] for ongoing long-term facility care which is a significant improvement [...] <Electronically signed by MD Laith Carlson> 04/15/23924 [facility] Work Phone: 1([phone]) 988-293611-07-2023 Progress note Author Selvin Bey [facility] April 14, 2023 1:12pm Note Date/Time April 14, 2023 1 :13pm [facility] [address] [place] [address] Hospitalist Progress Note Signed Patient: Albania Cesar MR#: [id number] : 1955 Acct:[id number] Age/Sex: 67 / F Adm Date: 3 Loc: Room: [address] [place] [address] Type: ADM IN Attending Dr: Selvin Bey [...] as needed oxycodone 5 mg Q6H, Tylenol [id number]. -Added Celebrex 100 twice daily. Hypokalemia, hypophosphatemia [...] <Electronically signed by Selvin Bey MD> 04/14/23 [facility] Work Phone: [phone] 136-741411-07-2023 Progress note Author Laith Carlson [facility] April 14, 2023 9:31am Note Date/Time April 14, 2023 9 :31am [facility] [address] [place] [address] Infect. Disease Progress Note Signed Patient: Albania Cesar MR#: [id number] : 1955 Acct:[id number] Age/Sex: 67 / F Adm Date: 3 Loc: 4 Room: 0X4593-5 Type: ADM IN Attending Dr: Selvin Bey [...] 325 Mg Tablet) 650 mg PO Q8H [facility] Stop: 04/10/24 10:14 Last Admin: 04/14/23 03:21 Dose: 650 mg Enoxaparin Sodium (Enoxaparin 40 Mg/0.4 Ml Syringe) 40 mg SUBCUT Q12HR.10A.10P [facility] Stop: 04/12/24 21:59 Last Admin: 04/14/23 00:07 Dose: 40 mg Hydromorphone HCl (Hydromorphone 1 Mg/Ml Syringe) 0.5 mg IV-PUSH DAILY PRN PRN Reason: Wound dressing Last Admin: 04/14/23 09:24 Dose: 0.5 mg Cefepime HCl (Maxipime) 2 gm in 50 mls @ 100 mls/hr IV Q12H [facility] Last Admin: 04/14/23 05:18 Dose: 100 mls/hr Vancomycin HCl 1.5 gm/ (Dextrose) 530 mls @ 353.333 mls/hr IV Q24H [facility] Stop: 04/14/24 00:59 Ondansetron HCl (Ondansetron Odt 4 Mg Tab.Rapdis) 4 mg PO Q4HR PRN PRN Reason: Nausea And Vomiting Stop: 04/12/24 21:45 Last Admin: 04/13/23 22:09 Dose: 4 mg Oxycodone HCl (Oxycodone Ir 5 Mg Tablet) 5 mg PO Q6HR PRN PRN Reason: Moderate Pain Last Admin: 04/14/23 03:21 Dose: 5 mg Pantoprazole Sodium (Pantoprazole 40 Mg Tablet.Dr) 40 mg PO DAILY [facility] Stop: 04/10/24 10:29 Last Admin: 04/14/23 08:13 [...] very difficult. Documented By: Laith Carlson MD 04/14/23923 Signed By: <Electronically signed by MD Laith Carlson> 04/14/2331 [facility] Work Phone: 1([phone]) 114-396011-06-2023 Consult note Author Laith Carlson [facility] April 13, 2023 1:05pm Note Date/Time April 13, 2023 1 :05pm [facility] [address] [place] [address] Infect. Disease Consult Note Signed Patient: Albania Cesar MR#: [id number] : 1955 Acct:[id number] Age/Sex: 67 / F Adm Date: 3 Loc: Room: [address] [place] [address] Type: ADM IN Attending Dr: Selvin Bey [...] initially for. She also did follow-up with [place] [facility] and had 2-3 veins ligated/removed. [...] negative unless noted below or in HPI PENDING SALE TO [facility] Medical History (Updated 04/12/23 @ 09:39 by [...] Q8H [facility] Stop: 04/10/24 10:14 Last Admin: 04/13/23 10:07 Dose: 650 mg Diclofenac Sodium (Diclofenac Sodium 25 Mg Tablet.) 50 mg PO BID.WITH.MEALS [facility] Stop: 04/13/23 17:01 Last Admin: 04/13/23 08:12 Dose: 50 mg Enoxaparin Sodium (Enoxaparin 40 Mg/0.4 Ml Syringe) 40 mg SUBCUT Q12HR.10A.10P [facility] Stop: 04/12/24 21:59 Hydromorphone HCl (Hydromorphone 1 Mg/Ml Syringe) 0.5 mg IV-PUSH DAILY PRN PRN Reason: Wound dressing Last Admin: 04/13/23 09:23 Dose: 0.5 mg Vancomycin HCl 1.75 gm/ (Dextrose) 500 mls @ 285.714 mls/hr IV Q24H [facility] Stop: 04/09/24 23:29 Last Infusion: 04/13/23 02:22 Dose: Infused Cefepime HCl (Maxipime) 2 gm in 50 mls @ 100 mls/hr IV Q12H [facility] Last Admin: 04/13/23 05:31 Dose: 100 mls/hr Oxycodone HCl (Oxycodone Ir 5 Mg Tablet) 5 mg PO Q6HR PRN PRN Reason: Moderate Pain Last Admin: 04/13/23 12:00 Dose: 5 mg Pantoprazole Sodium (Pantoprazole 40 Mg Tablet.Dr) 40 mg PO DAILY [facility] Stop: 04/10/24 10:29 Last Admin: 04/13/23 09:18 Dose: 40 mg Sodium Chloride (Sodium Chloride 0.9 % 10 Ml Syringe) 0 ml IV-PUSH PRN PRN PRN Reason: Flush Stop: 04/09/24 10:12 Last Admin: 04/13/23 09:23 Dose: 10 ml Vancomycin HCl (Vancomycin - Pharmacy Dosing 1 Each Miscell) 1 each IV PRN PRN; Protocol PRN Reason: BRIANNA.Pharmacy Consult Exam Physical Exam Vital Signs: Vital [...] / 100 @ 100 mls/hr IV Q12H [facility] Rx#: [id number] Vancomycin 1.75 gm In Dextrose 500 / 500 5 % in Water 500 ml @ 285.714 mls/hr IV Q24H [facility] Rx#:[id number] Oral 300 / 800 250 / 250 [...] follow-up with the vein specialist down in [place] who what sounds to be did some [...] <Electronically signed by MD Laith Carlson> 04/13/23 6868 [facility] Work Phone: 1([phone]) 731-236811-06-2023 Progress note Author Selvin Bey [facility] April 13, 2023 12:36pm Note Date/Time April 13, 2023 1 2:36pm [facility] [address] [place] [address] Hospitalist Progress Note Signed Patient: Albania Cesar MR#: [id number] : 1955 Acct:[id number] Age/Sex: 67 / F Adm Date: 3 Loc: Room: [id number] Type: ADM IN Attending Dr: Selvin Bey [...] oxycodone 5 mg Q6H, Tylenol and Voltaren [id number]. ALFREDO-improving -BUN elevated to 43, Cr 1.21 [...] discharge Documented By: Selvin Bey MD 04/13/23 9623 Signed By: <Electronically signed by Selvin Bey MD> 04/13/23 1236 [facility] Work Phone: 1([phone]) 454-543211-05-2023 Consult note Author Mario Mayorga [facility] April 12, 2023 1:22pm Note Date/Time April 12, 2023 9 :40am [facility] [address] [place] [address] Pulmonology Consult Note Signed Patient: Albania Cesar MR#: [id number] : 1955 Acct:[id number] Age/Sex: 67 / F Adm Date: 3 Loc: Room: [address] [place] [address] Type: ADM IN Attending Dr: Malorie Nathan MD Copies to: MD Abimbola Fernandez DO Safwan Khader, MD~ HPI Date/Time of Consultation: Date of [...] and had been treated with autotitratingCPAP of [id number]. Review of Systems Review of Systems Unobtainable due to mental status PENDING SALE TO [facility] Medical History (Updated 04/12/23 @ 09:39 by [...] support. Documented By: Mario Mayorga MD 3 [id number] Signed By: <Electronically signed by MD Mario Mayorga> 04/12/23 1580 [facility] Work Phone: 1(707) 368-620111-05-2023 Progress note Author Malorie Nathan [facility] April 12, 2023 1:05pm Note Date/Time April 12, 2023 1 :05pm [facility] [address] [place] [address] Hospitalist Progress Note Signed Patient: Albania Cesar MR#: [id number] : 1955 Acct:[id number] Age/Sex: 67 / F Adm Date: 3 Loc: Room: [address] [place] [address] Type: ADM IN Attending Dr: Malorie Nathan [...] 10:30 04/12/23 09:46 Diclofenac Sodium 25 Mg Tablet. PO 04/13/23 [...] 04/11/23 10:30 04/12/23 09:47 Pantoprazole 40 Mg Tablet. PO 04/10/24 10:29 20 mg DAILY [facility] [...] mg every 6 hours, Tylenol and Voltaren [id number] ALFREDO Kidney function improved, continue to monitor [...] <Electronically signed by Malorie Nathan MD> 04/12/23 1305 [facility] Work Phone: 1(439) 589-320211-04-2023 Progress note Author Malorie Nathan [facility] April 11, 2023 12:16pm Note Date/Time April 11, 2023 1 2:16pm [facility] [address] [place] [address] Hospitalist Progress Note Signed Patient: Albania Cesar MR#: [id number] : 1955 Acct:[id number] Age/Sex: 67 / F Adm Date: 3 Loc: Room: [address] [place] [address] Type: ADM IN Attending Dr: Malorie Nathan [...] 6 hours as needed, Tylenol and Voltaren eagzxj-ral-uzeej ALFREDO -BUN elevated to 43, Cr 1.21 [...] <Electronically signed by Malorie Nathan MD> 04/11/[address] [place] [address] Ctr Work Phone: 1([phone]) 630-240611-04-2023 Progress note Author Laith Monte [facility] April 11, 2023 8:54am Note Date/Time April 11, 2023 8 :55am [facility] [address] [place] [address] Event Note Signed Patient: Albania Cesar MR#: [id number] : 1955 Acct:[id number] Age/Sex: 67 / F Adm Date: 3 Loc: Room: [address] [place] [address] Type: ADM IN Attending Dr: Malorie Nathan [...] signed by Laith Monte DO> 04/11/23 0854 [facility] Work Phone: 1([phone]) 902-323811-03-2023 History and physical note Author Neeraj Farrell [facility] April 10, 2023 4:36pm Note Date/Time April 10, 2023 4 :36pm [facility] [address] [place] [address] Hospitalist H&P Signed Patient: Albania Cesar MR#: [id number] : 1955 Acct:[id number] Age/Sex: 67 / F Adm Date: 3 Loc: Room: [address] [place] [address] Type: ADM IN Attending Dr: Neeraj Farrell [...] and treatment. Patient is also following at [place] regarding lymphedema and appears to be getting [...] constipation, diarrhea : Denies dysuria, hematuria, polyuria. PENDING SALE TO [facility] Medical History (Updated 04/10/23 @ 16:34 by [...] % (Auto) 3.2 % (.) 04/10/23 10:20 Hanson % (Auto) 5.0 % (.) 04/10/23 10:20 Eos % (Auto) 1.0 % (.) 04/10/23 10:20 Baso % (Auto) 0.5 % (.) 04/10/23 10:20 Nucleat RBC Rel Count 0.1 /100 WBC (0-0.5) 04/10/23 10:20 Neut # (Auto) 11.7 x10E3/uL (1.8-7.7) H 04/10/23 10:20 Lymph # (Auto) 0.4 x10E3/uL (1.00-4.8) L 04/10/23 10:20 Hanson # (Auto) 0.6 x10E3/uL (0.0-0.8) 04/10/23 10:20 [...] pH 6.0 (5.0-9.0) 04/10/23 10:28 Ur Specific Buchanan 1.034 (1.001-1.030) H 04/10/23 10:28 Urine Protein [...] control. Will discontinue and adjust home medications. ALFREDO -BUN elevated to 43, creatinine 1.21 on [...] <Electronically signed by Neeraj Farrell MD> 04/10/23 1632 [facility] Work Phone: [phone]) 407-144009-19-2023 Evaluation note* Encounter Date Diagnosis Assessment Notes Treatment Notes Treatment Clinical Notes Feb, Venous insufficiency (chronic) (peripheral) (ICD-10 - I87.2) Feb, 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 (ICD-10 - L97.929) She has stopped going to both infusion center for wound care and Dr. Carlson. [...] Consider returning to ID or lymphedema clinic [facility] [employer] Other 08-29-2023 Progress note Author Albino Saxena [facility] February 03, 2023 10:36am Note Date/Time February 03, 2023 10 :36am [facility] [address] [place] [address] Wound Center Provider Note Signed Patient: Albania Cesar MR#: [id number] : 1955 Acct:[id number] Age/Sex: 67 / F Copies to: MD Marino Gillis MD Gloria A Johns, DO~ HPI Date of Visit Date of Visit: [...] Intensity: 0 Wound/Ulcer History Mode of Arrival/ Development Technical Lead: Personal vehicle Assistive Device Used Today: Cane [...] Skin/Breast: Reports wounds Neurologic Neurologic: Denies syncope PENDING SALE TO [facility] Medical History (Updated 02/03/23 @ 10:32 by [...] Left Lower Leg: Bed Appearance: Beefy Red, [place] and Yellow Percent of Wound Bed Granulated/Red: 50 Percent of Devitalized: 50 Length (cm): 23.0 Width (cm): 55.0 Depth (cm): 0.1 CM Sq: 1265.000 Surrounding Tissue Appearance: Bright Red, Macerated and Edematous Surrounding Tissue Temp: Warm Drainage Amount: Copious Drainage Description: Serous and Yellow Drainage Odor: No Odor Right Lower Medial Leg: Bed Appearance: Beefy Red, [place] and Yellow Percent of Wound Bed Granulated/Red: 50 Percent of Devitalized: 50 Length (cm): 13.5 Width (cm): 1.0 Depth (cm): 0.1 CM Sq: 13.500 Surrounding Tissue Appearance: [place], Macerated and Edematous Surrounding Tissue Temp: Warm Drainage Amount: Moderate Drainage Description: Serosanguineous Drainage Odor: No Odor Right Lower Lateral Leg: Bed Appearance: [place] and Yellow Percent of Wound Bed Granulated/Red: [...] signed by MD Albino Saxena> 02/03/23 1036 [facility] Work Phone: 1([phone]) 153-390408-15-2023 Evaluation note* Encounter Date Diagnosis Assessment Notes Treatment Notes Treatment Clinical Notes Jan, Venous insufficiency (chronic) (peripheral) (ICD-10 - I87.2) [facility] Other 08-14-2023 Evaluation note* Encounter Date Diagnosis Assessment Notes Treatment Notes Treatment Clinical Notes Jan, Venous insufficiency (chronic) (peripheral) (ICD-10 - I87.2) Followed by vascular surgery, scheduled for procedure upcoming. We will f/u with [facility] to help get her SCDs that she was fitted for as this likely would help control swelling. Jan, Breast cancer screening (ICD-10 - Z12.39) Jan, CHUCKIE (obstructive sleep apnea) (ICD-10 - G47.33) Rx written for new mask and supplies. Jan, Need for pneumococca l 20-valent conjugate vaccination (ICD-10 - Z23) [facility] Other 08-01-2023 Evaluation note* Encounter Date Diagnosis Assessment Notes Treatment Notes Treatment Clinical Notes Jan, Venous insufficiency (chronic) (peripheral) (ICD-10 - I87.2) [facility] Other 07-24-2023 Evaluation note* Encounter Date Diagnosis [...] leg with unspecified severity (ICD-10 - L97.929) [facility] Other 12-30-2021 Evaluation note* Encounter Date Diagnosis [...] care instructions given in writting by [facility] Care At Home document [employer] Other Evaluation noteNo assessment information available [facility] Work Phone: Evaluation note* Diagnosis Onset Date Resolution Status Elevated blood pressure reading acute Inflammation chronic Leg ulcer, left chronic Lymphedema chronic Obese chronic Wound pain chronic [facility] Work Phone: Evaluation note* Diagnosis Onset Date Resolution Status Elevated blood pressure reading acute Hyperkeratosis chronic Hyperpigmentation chronic Inflammation chronic Leg ulcer, left chronic Lymphedema chronic Nonadherence to medical treatment chronic Obese chronic Wound pain chronic [facility] Work Phone: Evaluation noteNo InformationNortMain [facility] [employer] Other Evaluation note* Diagnosis Onset Date Resolution Status Elevated blood pressure reading acute Hyperkeratosis chronic Hyperpigmentation chronic Inflammation chronic Leg ulcer, left chronic Lymphedema chronic Nonadherence to medical treatment chronic Obese chronic Wound pain chronic Cellulitis of left leg acute Ulcer of right leg acute Leg ulcer, left chronic Lymphedema chronic [facility] Work Phone: Evaluation note* Diagnosis Onset Date Resolution Status Cellulitis of left leg acute Ulcer of right leg acute Leg ulcer, left chronic Lymphedema chronic [facility] Work Phone: Evaluation note* Diagnosis Onset Date Resolution Status Cellulitis of left leg acute Ulcer of right leg acute Leg ulcer, left chronic Lymphedema chronic ALFREDO (acute kidney injury) ac ruth Bilateral leg pain acute Bilateral lower leg cellulitis acute Cellulitis acute Hyponatremia acute Metabolic acidosis acute Ulcer of left lower leg acut e Ulcer of right leg acute UTI (urinary tract infection) acute Inflammation chronic Lymphedema chronic [facility] Work Phone: Evaluation note* Diagnosis Onset Date Resolution Status Cellulitis of left leg acute Ulcer of right leg acute Leg ulcer, left chronic Lymphedema chronic Acute respiratory acidosis a cute ALFREDO (acute kidney injury) ac ruth Bilateral lower leg cellulitis acute Cellulitis acute CHF (congestive heart failure) acute Elevated liver enzymes acute Hypokalemia acute Hyponatremia acute Hypophosphatemia acute Hypoxia acute Infected wound acute Metabolic acidosis acute Superficial vein thrombosis acute Ulcer of left lower leg acut e Ulcer of right leg acute Inflammation chronic Lymphedema chronic Obese chronic [facility] Work Phone: Hisowph general Narrative - Reported* Type Description Date Medical History CHUCKIE Medical History varicose veins Surgical History No know Surgical history Hospitalization History elevated BS, cellulitis [facility] [employer] [facility] Other Hislxdn general Narrative - Reported* Type Description Date Medical History CHUCKIE Medical History varicose veins Medical History cellulitis Medical History lymphedema Surgical History No know Surgical history Hospitalization History elevated BS, cellulitis [facility] [employer] Other Hiswjta general Narrative - Reported* Type Description Date Medical History CHUCKIE Medical History varicose veins Medical History cellulitis Medical History lymphedema Surgical History No Surgical history information Hospitalization History see above Hospitalization History BLE--cellulitis, lymphed ace [facility] Other Hospital Discharge instructions Additional Instructions Have IV antibiotics twice daily at an infusion center for 1 week.[facility] Work Phone: Hospital Discharge instructions Additional Instructions [...] the antibiotics you are currently on as directed.[facility] Work Phone: Hospital Discharge instructions Additional Instructions Follow-up with your primary care doctor Return to ED if develop worsening symptoms [facility] Work Phone: Summary Purpose Family History No Family History Records Found Relationship Condition Age at Onset Recorded Date/T shira father Heart disease Unknown Hypertension Unknown Diabetes mellitus Unknown Not Specified Hypertension Unknown Advance Directives No Advanced Directives Records Found Advance Directive Response Recorded Date/ Time Advance [...] section and content) DATE CREATED AUTHOR 12/02/2017 [facility] DATE CREATED AUTHOR AUTHOR'S ORGANIZ ATION 07/15/2023 [facility] REASON FOR VISIT (unrecogniz ed section and content) #12 JACKSON MALIBU, LOSS OF TAS TE, CONGESTION, FEVER, COUGHFR-ERNo InformationREFILLNo InformationEST PCPNo Informationchancre sore apptDISCUSS [id number] up from rehab needs to go over medsSCD measurementsABD scriptmed refill Care Teams (unrecognized sec tion and content) Team Status: Active Member Role Status Dates Abimbola Bran DO Primary Care Provider Active Team Status: Inactive Member Role Status Dates Reji Rangel DO Attending Provider Active PHYSICIAN NO FAMILY Primary Care Provider Active Team Status: Inactive Member Role Status Dates PHYSICIAN NO FAMILY Primary Care Provider Active Beth Jimenez , [employer] Active Evelyn Manuelermeyer , [employer] Attending Provider Active Team Status: Inactive Member Role Status Dates PHYSICIAN NO FAMILY Primary Care Provider Active Laith Warner MD Emergency Provider Active Team Status: Inactive Member Role Status Dates Abimbola Bran , DO Primary Care Provider Active Laith Carlson MD Attending Provider Active Team Status: Inactive Member Role Status Abimbola Bran , DO Primary Care Provider Active Chon Valdez , DO Emergency Provider Active Team Status: Inactive Member Role Status Dates PHYSICIAN NO FAMILY Primary Care Provider Active Laith Warner MD Attending Provider Active Team Status: Inactive Member Role Status Chon Valdez , DO Emergency Provider Active Abimbola Bran , DO Primary Care Provider Active Team Status: Active Member Role Status Abimbola Bran , DO Primary Care Provider Active Albino Saxena MD Attending Provider Active Team Status: Active Member Role Status Reji Rangel , Attending Provider Active PHYSICIAN NO FAMILY Primary Care Provider Active Team Status: Inactive Member Role Status PHYSICIAN NO FAMILY Primary Care Provider Active Gerald Theodore PA-C Emergency Provider Active Team Status: Active Member Role Status PHYSICIAN NO FAMILY Primary Care Provider Active Beth Jimenez , [employer] Active Evelyn Rosaer , [employer] Attending Provider Active Team Status: Inactive Member Role Status PHYSICIAN NO FAMILY Primary Care Provider Active Jhonatan Crowell DO Emergency Provider Active Team Status: Inactive Member Role Status PHYSICIAN NO FAMILY Primary Care Provider Active Jhonatan Crowell DO Attending Provider Active Team Status: Inactive Member Role Status PHYSICIAN NO FAMILY Primary Care Provider Active Gerald Theodore PA-C Attending Provider Active Team Status: Active Member Role Status PHYSICIAN NO FAMILY Primary Care Provider Active Team Status: Active Member Role Status PHYSICIAN NO FAMILY Primary Care Provider Active Beth Jimenez , [employer] Attending Provider Active Team Status: Active Member Role Status PHYSICIAN NO FAMILY Primary Care Provider Active Jhonatan Crowell DO Attending Provider Active Team Status: Active Member Role Status Dates PHYSICIAN NO FAMILY Primary Care Provider Active Gerald Theodore PA-C Attending Provider Active Team Status: Inactive Member Role Status Abimbola Bran , DO Primary Care Provider Active Albino Saxena MD Attending Provider Active Team Status: Inactive Member Role Status Dates Jhonatan Crowell , DO Emergency Provider Active Abimbola Bran , DO Primary Care Provider Active Team Status: Active Member Role Status Dates Abimbola A Bran , DO Primary Care Provider Active Sarah Davey , [facility] Emergency Provider Active Neeraj Farrell MD Admit Provider, Attending Provider Active Team Status: Inactive Member Role Status Dates Abimbola Bran , DO Primary Care Provider Active Sarah Davey , [facility] Emergency Provider Active Neeraj Farrell MD Admit [...] BE BASED ON THE PRIMARY CLINICAL RECORDS. [employer] provides no warranty or guarantee of the accuracy or completeness of information in this document.
--- NOTE | 2023-08-04 00:18 | XR_ITS ---
The [address] [address] Patient Name: ALBANIA CESAR MRN: [id number] date: 1955 Sex: F Assigned Patient Location: ER Current Patient Location: ER Accession/Order Number: [id number] Exam Date: 08/04/2023 00:30 Report Date: 08/04/2023 00:51 At the request of: EUGENE MARKER Procedure: XR chest 1V XR chest 1V 08/03/2023 11:30 PM ENSEMBLE MEMBER: History: AMS . Altered mental status. Comparison: None. Technique: 1 view chest Findings: The cardiomediastinal silhouette is normal. The lungs are clear without infiltrate, effusion, or pneumothorax. The bones are intact. XR/XR chest 1V Impression: No acute cardiopulmonary process. Electronically authenticated by: PEPE FUCHS Date: 08/04/2023 00:51
--- NOTE | 2023-08-04 00:18 | ED.GENADUL1 ---
HPI - General Adult General Chief complaint: Altered Mental Status Stated complaint: altered mental status Time Seen by Provider: 08/04/23 00:13 Source: patient and EMR Mode of arrival: ambulance Limitations: physical limitation History of Present Illness HPI narrative: This 67-year-old female was brought to the emergency department from home for evaluation of altered mental status. According to the patient's family they felt that she was confused and EMS was called. Amaya was concerned that she may have a urinary tract infection because her urine was foul-smelling. She was not noted to have a fever. Upon EMS arrival the patient was very agitated and refused to get into the squad. She wanted to come to the hospital by private vehicle but ultimately she was brought emergency department by EMS. The patient complains of severe pain in her right lower leg. She has marked lymphedema of both legs that she states she has had for years. She has excoriated areas on her legs that are weeping and draining with foul-smelling drainage. Her left lower extremity is red and swollen up past her knee into the medial thigh area. Her right lower extremity is swollen in the area from the knee to the foot. She states that her legs have been swollen like this for years. She denies any chest pain or shortness of breath. Related Data Home Medications Medication Instructions Recorded Confirmed carvedilol 3.125 mg tablet 3.125 mg PO Q12H 08/03/23 08/04/23 furosemide 40 mg tablet 40 mg PO DAILY 08/03/23 08/04/23 meloxicam 7.5 mg tablet 7.5 mg PO BID 08/03/23 08/04/23 pregabalin 75 mg capsule 75 mg PO TID 08/03/23 08/04/23 Allergies Allergy/AdvReac Type Severity Reaction Status Date / Time No Known Drug Allergies Allergy Verified 08/03/23 23:52 Review of Systems ROS Status of ROS 10 or more systems reviewed and unremarkable except as noted in history and below Exam Narrative Exam Narrative: Nurses note and vital signs reviewed and patient is not hypoxic.She is tachycardic upon arrival with a pulse of 112. Oral temp is 101.3 General: Alert but at times slow to respond morbidly obese female, no respiratory distress, she is able to pull herself to a sitting position on the bed Skin: Bilateral lower extremities are red, swollen, excoriated with foul-smelling drainage. The right lower extremity is red, edematous with chronic hypertrophic skin changes and excoriated erythematous and draining foul-smelling discharge from the knee to the foot and the left lower extremity is also markedly swollen, excoriated from the foot to the medial thigh. Head: Normocephalic, atraumatic Eye: Normal conjunctiva, no drainage, EOMI. PERRL Ears, Nose, Mouth, and Throat: oral mucosa is moist. Nares patent. Cardiovascular: Regular Rate and Rhythm S1 S2, pulses are brisk and equal bilaterally Respiratory: Patient is in no distress, no accessory muscle use, lungs are clear to auscultation, no wheezing, rales or rhonchi Back: non-tender, no CVA tenderness bilaterally to percussion. GI: Normal bowel sounds, no tenderness to palpation, no masses appreciated. No rebound, guarding, or rigidity noted. Musculoskeletal: Bilateral lower extremities are red, swollen, excoriated with foul-smelling drainage. The right lower extremity is red, edematous with chronic hypertrophic skin changes and excoriated erythematous and draining foul-smelling discharge from the knee to the foot and the left lower extremity is also markedly swollen, excoriated from the foot to the medial thigh. I was unable to palpate pulses in either foot but the feet are warm to the touch and sensate Neurological: A&O to person, place- knows she is in a hospital- but uncertain which one, uncertain of date Psychiatric: Cooperative Constitutional Vital Signs, click to edit/add: Last Vital Signs Temp 101.3 F H 08/04/23 01:38 Pulse 100 H 08/04/23 03:10 Resp 27 H 08/04/23 03:10 BP 127/77 08/04/23 03:08 Pulse Ox 93 L 08/04/23 03:10 O2 Del Method Room Air 08/03/23 23:52 Course Vital Signs Vital signs: Vital Signs Temperature 98.9 F 08/03/23 23:52 Pulse Rate 114 H 08/03/23 23:52 Respiratory Rate 22 08/03/23 23:52 Blood Pressure 123/77 08/03/23 23:52 Pulse Oximetry 97 08/03/23 23:52 Oxygen Delivery Method Room Air 08/03/23 23:52 Temperature 101.3 F H 08/04/23 01:38 Pulse Rate 100 H 08/04/23 03:10 Respiratory Rate 27 H 08/04/23 03:10 Blood Pressure 127/77 08/04/23 03:08 Pulse Oximetry 93 L 08/04/23 03:10 Oxygen Delivery Method Room Air 08/03/23 23:52 Medical Decision Making MDM Narrative Medical decision making narrative: This 67-year-old female with a history of chronic lymphedema of both lower extremities as well as morbid obesity is brought to the emergency department by EMS from home. She lives with her brother. Her sister came to the emergency department with her and provided recent history. The patient was supposed to go to the lymphedema clinic earlier this week but was not feeling well and did not go. Since that time she has been sleeping a lot and complaining of leg pain. She has excoriated legs with skin breakdown and cellulitic areas on the bottoms of her feet, medial and lateral aspects of her legs with redness and swelling from the left foot to the mid left thigh and from the right knee to the right foot. The family was concerned because they stated that she was confused and they're concerned that she had a urinary tract infection. EMS was called and the patient refused to be transported emergency department by EMS. The patient's sister states that EMS grabbed her by the legs and caused her a lot of pain. Upon arrival the patient was awake and alert. She is oriented to person place but unaware of which hospital she was in. She did not know the date. She was otherwise oriented. She was able to provide me with recent history and chronic history of her lower extremity lymphedema. Septic protocol was ordered. 2 sets of blood cultures are pending. She has an elevated white count at 22. Lactic acid was elevated at 2.2. Procalcitonin was elevated. She is not diabetic. Her sugar was 150. Troponin is negative. EKG was a sinus tachycardia at 109. Cultures of her blood and legs were ordered. Lactic acid was repeated after IV fluids and is now 1.5. IV Zosyn and IV vancomycin was administered for the cellulitis pending culture and sensitivity. A straight catheter urine was negative for infection. X-ray of the chest was negative for pneumonia. She was medicated with Percocet for her pain with minimal relief and was then given 4 mg of morphine with minimal relief and ultimately 1 mg of his was given to her with better control of her pain. The case was discussed with the hospitalist and she is accepted for admission. Medical Records Medical records narrative: The [address] [address] XRay Report Signed Patient: ALBANIA CESAR MR#: [id number] : 1955 Acct:[id number] Age/Sex: 67 / F ADM Date: 08/03/23 Loc: ER Attending Dr: Ordering Physician: Elyse Garza Date of Service: 08/04/23 Procedure(s): XR chest 1V Accession Number(s): [id number] cc: Elyse Garza; Marino Aviles M.D.~ The [address] [address] Patient Name: ALBANIA CESAR MRN: [id number] date: 1955 Sex: F Assigned Patient Location: ER Current Patient Location: ER Accession/Order Number: [id number] Exam Date: 08/04/2023 00:30 Report Date: 08/04/2023 00:51 At the request of: ELYSEVALENTE GARZA Procedure: XR chest 1V XR chest 1V 08/03/2023 11:30 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 Altered mental status. Comparison: None. Technique: 1 view chest Findings: The cardiomediastinal silhouette is normal. The lungs are clear without infiltrate, effusion, or pneumothorax. The bones are intact. XR/XR chest 1V Impression: No acute cardiopulmonary process. Electronically authenticated by: PEPE FUCHS Date: 08/04/2023 00:51 Lab Data Labs: Lab Results 08/04/23 08/04/23 08/04/23 Range/Units 00:00 00:09 02:11 WBC 22.0 H (4.0-11.0) 10^3/uL RBC 4.53 (4.20-5.40) 10^6/uL Hgb 10.9 L (12.0-16.0) g/dL Hct 36.2 (36.0-48.0) % MCV 79.9 L (81.0-99.0) fL MCH 24.1 L (26.7-34.0) pg MCHC 30.1 (29.9-35.2) g/dL RDW 16.2 H (11.0-15.0) % Plt Count 328 (150-450) 10^3/uL MPV 10.0 (9.5-13.5) fL Seg Neuts % (Manual) 93.0 Lymphocytes % (Manual) 4.0 L (20.5-60.0) % Monocytes % (Manual) 3.0 (1.7-12.0) % Eosinophils % (Manual) 0.0 L (0.9-7.0) % Basophils % (Manual) 0.0 L (0.2-2.0) % Neutrophils # (Manual) 20.46 H (1.4-6.5) 10^3/uL Lymphocytes # (Manual) 0.88 L (1.20-3.80) 10^3/uL Monocytes # (Manual) 0.66 (0.30-0.80) 10^3/uL Eosinophils # (Manual) 0.00 (0.00-0.70) 10^3/uL Basophils # (Manual) 0.00 (0.00-0.10) 10^3/uL WBC Morphology Comment PT 11.7 H (9.0-11.6) sec INR 1.11 Sodium 134 L (136-145) mmol/L Potassium 4.0 (3.5-5.1) mmol/L Chloride 96 L (98-107) mmol/L Carbon Dioxide 25.4 (21.0-32.0) mmol/L Anion Gap 16.6 BUN 21.0 H (7.0-18.0) mg/dL Creatinine 1.21 H (0.55-1.02) mg/dL Est GFR ( Amer) 54 L (>=60) Est GFR (Non-Af Amer) 45 L (>=60) BUN/Creatinine Ratio 17.4 Glucose 150 H (74-106) mg/dL Lactate 2.2 H* (0.4-2.0) mmol/L Calcium 9.1 (8.5-10.1) mg/dL Phosphorus 2.9 (2.6-4.7) mg/dL Total Bilirubin 1.0 (0.2-1.0) mg/dL AST 49 H (15-37) U/L ALT 37 (14-59) U/L Alkaline Phosphatase 125 H (46-116) U/L Troponin I High Sens 18.2 (4.0-51.3) pg/mL Total Protein 8.0 (6.4-8.2) g/dL Albumin 2.4 L (3.4-5.0) g/dL Globulin 5.6 g/dL Albumin/Globulin Ratio 0.4 Procalcitonin 2.22 H (0.00-0.50) ng/mL Urine Color Dk. yellow (YELLOW) Urine Clarity Clear (CLEAR) Urine pH 6.0 (5.0-9.0) Ur Specific [place] >=1.030 A (1.005-1.025) Urine Protein >=300 A (NEG/TRACE) mg/dL Urine Glucose (UA) Negative (NEGATIVE) mg/dL Urine Ketones Negative (NEGATIVE) mg/dL Urine Occult Blood Large A (NEGATIVE) Urine Nitrite Negative (NEGATIVE) Urine Bilirubin Small A (NEGATIVE) Urine Urobilinogen 1.0 (0.2-1.0) EU/dL Ur Leukocyte Esterase Negative (NEGATIVE) Urine RBC 5-10 A (0-2) #/HPF Urine WBC 0-2 A (NONE SEEN) #/HPF Ur Squamous Epith Cells Rare (NONE/RARE) #/LPF Urine Crystals None seen (None Seen) #/HPF Urine Bacteria Trace A (NONE SEEN) #/HPF Urine Casts None seen (NONE SEEN) #/LPF Urine Mucus Trace A (NONE SEEN) Ur Culture Indicated? Already ordered Adenovirus (PCR) Not detected (NOT DETECTE) C. pneumoniae DNA (PCR) Not detected (NOT DETECTE) Coronavirus Type OC43 Not detected (NOT DETECTE) Coronavirus Type HKU1 Not detected (NOT DETECTE) Coronavirus Type 229E Not detected (NOT DETECTE) Coronavirus Type NL63 Not detected (NOT DETECTE) Human Metapneumovir PCR Not detected (NOT DETECTE) M. pneumoniae (PCR) Not detected (NOT DETECTE) Parainfluenza PCR Not detected (NOT DETECTE) Parainfluenza 2 (PCR) Not detected (NOT DETECTE) Parainfluenza 3 (PCR) Not detected (NOT DETECTE) Parainfluenza 4 (PCR) Not detected (NOT DETECTE) RSV (RT-PCR) Not detected (NOT DETECTE) Entero/Rhino (PCR) Not detected (NOT DETECTE) SARS-CoV-2 (PCR) Not detected (NOT DETECTE) Bordetella pertussis (PCR) Not detected (NOT DETECTE) B parapertussis DNA PCR Not detected (NOT DETECTE) Influenza Type A (PCR) Not detected (NOT DETECTE) Influenza Type B (PCR) Not detected (NOT DETECTE) 08/04/23 Range/Units 02:57 WBC (4.0-11.0) 10^3/uL RBC (4.20-5.40) 10^6/uL Hgb (12.0-16.0) g/dL Hct (36.0-48.0) % MCV (81.0-99.0) fL MCH (26.7-34.0) pg MCHC (29.9-35.2) g/dL RDW (11.0-15.0) % Plt Count (150-450) 10^3/uL MPV (9.5-13.5) fL Seg Neuts % (Manual) Lymphocytes % (Manual) (20.5-60.0) % Monocytes % (Manual) (1.7-12.0) % Eosinophils % (Manual) (0.9-7.0) % Basophils % (Manual) (0.2-2.0) % Neutrophils # (Manual) (1.4-6.5) 10^3/uL Lymphocytes # (Manual) (1.20-3.80) 10^3/uL Monocytes # (Manual) (0.30-0.80) 10^3/uL Eosinophils # (Manual) (0.00-0.70) 10^3/uL Basophils # (Manual) (0.00-0.10) 10^3/uL WBC Morphology Comment PT (9.0-11.6) sec INR Sodium (136-145) mmol/L Potassium (3.5-5.1) mmol/L Chloride (98-107) mmol/L Carbon Dioxide (21.0-32.0) mmol/L Anion Gap BUN (7.0-18.0) mg/dL Creatinine (0.55-1.02) mg/dL Est GFR ( Amer) (>=60) Est GFR (Non-Af Amer) (>=60) BUN/Creatinine Ratio Glucose (74-106) mg/dL Lactate 1.5 (0.4-2.0) mmol/L Calcium (8.5-10.1) mg/dL Phosphorus (2.6-4.7) mg/dL Total Bilirubin (0.2-1.0) mg/dL AST (15-37) U/L ALT (14-59) U/L Alkaline Phosphatase (46-116) U/L Troponin I High Sens (4.0-51.3) pg/mL Total Protein (6.4-8.2) g/dL Albumin (3.4-5.0) g/dL Globulin g/dL Albumin/Globulin Ratio Procalcitonin (0.00-0.50) ng/mL Urine Color (YELLOW) Urine Clarity (CLEAR) Urine pH (5.0-9.0) Ur Specific [place] (1.005-1.025) Urine Protein (NEG/TRACE) mg/dL Urine Glucose (UA) (NEGATIVE) mg/dL Urine Ketones (NEGATIVE) mg/dL Urine Occult Blood (NEGATIVE) Urine Nitrite (NEGATIVE) Urine Bilirubin (NEGATIVE) Urine Urobilinogen (0.2-1.0) EU/dL Ur Leukocyte Esterase (NEGATIVE) Urine RBC (0-2) #/HPF Urine WBC (NONE SEEN) #/HPF Ur Squamous Epith Cells (NONE/RARE) #/LPF Urine Crystals (None Seen) #/HPF Urine Bacteria (NONE SEEN) #/HPF Urine Casts (NONE SEEN) #/LPF Urine Mucus (NONE SEEN) Ur Culture Indicated? Adenovirus (PCR) (NOT DETECTE) C. pneumoniae DNA (PCR) (NOT DETECTE) Coronavirus Type OC43 (NOT DETECTE) Coronavirus Type HKU1 (NOT DETECTE) Coronavirus Type 229E (NOT DETECTE) Coronavirus Type NL63 (NOT DETECTE) Human Metapneumovir PCR (NOT DETECTE) M. pneumoniae (PCR) (NOT DETECTE) Parainfluenza PCR (NOT DETECTE) Parainfluenza 2 (PCR) (NOT DETECTE) Parainfluenza 3 (PCR) (NOT DETECTE) Parainfluenza 4 (PCR) (NOT DETECTE) RSV (RT-PCR) (NOT DETECTE) Entero/Rhino (PCR) (NOT DETECTE) SARS-CoV-2 (PCR) (NOT DETECTE) Bordetella pertussis (PCR) (NOT DETECTE) B parapertussis DNA PCR (NOT DETECTE) Influenza Type A (PCR) (NOT DETECTE) Influenza Type B (PCR) (NOT DETECTE) ECG Data Attestation: I personally reviewed and interpreted this ECG as follows: (Sinus tachycardia 109 beats for minute, normal axis, interpretation limited by patient movement, no acute ST segment elevation or T-wave inversion) Critical Care Time Critical Care Time Critical Care Time: Yes Total Critical Care Time: 40 Attestation: . Discharge Plan Discharge Chief Complaint: Altered Mental Status Clinical Impression: Bilateral lower leg cellulitis, Sepsis Patient Disposition: Admitted As Inpatient Time of Disposition Decision: 04:29 Condition: Fair Prescriptions / Home Meds: No Action furosemide 40 mg tablet 40 mg PO DAILY carvedilol 3.125 mg tablet 3.125 mg PO Q12H meloxicam 7.5 mg tablet 7.5 mg PO BID pregabalin 75 mg capsule 75 mg PO TID Referrals: aMrino Aviles MD [Primary Care Provider] - 1 week
[2023-08-04 00:30] LABS: Hematocrit 36.2 % (36.0-48.0); Hemoglobin 10.9 g/dL (12.0-16.0); Mean Corpuscular HGB Conc 30.1 g/dL (29.9-35.2); Mean Corpuscular Hemoglobin 24.1 pg (26.7-34.0); Mean Corpuscular Volume 79.9 fL (81.0-99.0); Platelet Count 328 10^3/uL (150-450); Red Blood Count 4.53 10^6/uL (4.20-5.40); Red Cell Distribution Width 16.2 % (11.0-15.0)
[2023-08-04 00:31] LABS: Bilirubin Urine SMALL (NEGATIVE); Blood Urine LARGE (NEGATIVE); Clarity Urine CLEAR (CLEAR); Color Urine DK. YELLOW (YELLOW); Glucose Urine UA NEGATIVE (NEGATIVE); Ketones Urine NEGATIVE (NEGATIVE); Leukocyte Esterase Urine NEGATIVE (NEGATIVE); Nitrite Urine NEGATIVE (NEGATIVE); Protein Urine >=300 mg/dL (NEG/TRACE); Specific Gravity Urine >=1.030 (1.005-1.025)
[2023-08-04 00:32] LABS: Urine Microscopic Indicated YES
[2023-08-04 00:43] LABS: INR 1.11; Prothrombin Time 11.7 sec (9.0-11.6)
[2023-08-04] MEDS: OXYCODONE HCL/ACETAMINOPHEN 5MG/325MG 1 TAB PO ×4 (00:49→23:26)
[2023-08-04] MEDS: PIPERACILLIN SODIUM/TAZOBACTAM 3.375 GM in 0.9 % SODIUM CHLORIDE 50 ML IV ×3 (00:49→17:34)
[2023-08-04 00:50] LABS: Alanine Aminotransferase 37 U/L (14-59); Albumin Globulin Ratio 0.4; Albumin Level 2.4 g/dL (3.4-5.0); Alkaline Phosphatase 125 U/L (46-116); Anion Gap 16.6; Aspartate Amino Transferase 49 U/L (15-37); BUN Creatinine Ratio 17.4; Calcium 9.1 mg/dL (8.5-10.1); Carbon Dioxide 25.4 mmol/L (21.0-32.0); Chloride 96 mmol/L (98-107); Estimated GFR (African America 54 (>=60); Estimated GFR (Non-African Ame 45 (>=60); Globulin 5.6 g/dL; Glucose 150 mg/dL (74-106); Phosphorus 2.9 mg/dL (2.6-4.7); Sodium 134 mmol/L (136-145); Troponin I High Sensitivity 18.2 pg/mL (4.0-51.3)
[2023-08-04 00:52] LABS: Lactate/Lactic Acid 2.2 mmol/L (0.4-2.0)
[2023-08-04] MEDS: 0.9 % SODIUM CHLORIDE 1,000 ML 1000 ML IV (01:09)
[2023-08-04] MEDS: VANCOMYCIN HCL 1,000 MG in 0.9 % SODIUM CHLORIDE 250 ML 250 MG IV (01:24)
[2023-08-04 01:29] LABS: Lymphocytes Absolute Manual 0.88 10^3/uL (1.20-3.80); Monocytes Absolute Manual 0.66 10^3/uL (0.30-0.80); Segmented Neut Absolute Manual 20.46 10^3/uL (1.4-6.5)
[2023-08-04] MEDS: MORPHINE SULFATE 4 MG/ML VIAL IV (01:36)
[2023-08-04 01:38] LABS: PROCALCITONIN 2.22 ng/mL (0.00-0.50)
[2023-08-04 01:42] LABS: Bacteria Urine TRACE #/HPF (NONE SEEN); Cast Seen? NONE SEEN #/LPF (NONE SEEN); Crystals Seen? None Seen #/HPF (None Seen); Mucus Urine TRACE (NONE SEEN); Squamous Epithelial Cell Urine RARE #/LPF (NONE/RARE); Urine Culture Indicated ALREADY ORDERED; WBC Urine 0-2 #/HPF (NONE SEEN)
[2023-08-04 02:16] LABS: Adenovirus NOT DETECTED (NOT DETECTE); Bordetella parapertussis NOT DETECTED (NOT DETECTE); Coronavirus 229E NOT DETECTED (NOT DETECTE); Coronavirus HKU1 NOT DETECTED (NOT DETECTE); Coronavirus NL63 NOT DETECTED (NOT DETECTE); Coronavirus OC43 NOT DETECTED (NOT DETECTE); Human Metapneumovirus NOT DETECTED (NOT DETECTE); Human Rhinovirus/Enterovirus NOT DETECTED (NOT DETECTE); Influenza A NOT DETECTED (NOT DETECTE); Influenza B NOT DETECTED (NOT DETECTE); Mycoplasma pneumoniae NOT DETECTED (NOT DETECTE); Parainfluenza Virus 1 NOT DETECTED (NOT DETECTE); Parainfluenza Virus 2 NOT DETECTED (NOT DETECTE); Parainfluenza Virus 3 NOT DETECTED (NOT DETECTE); Parainfluenza Virus 4 NOT DETECTED (NOT DETECTE); Respiratory Syncytial Virus NOT DETECTED (NOT DETECTE); SARS-CoV-2 NOT DETECTED (NOT DETECTE)
[2023-08-04] MEDS: HYDROMORPHONE HCL 1 MG/ML CARTRIDGE IV (03:02)
[2023-08-04] MEDS: ACETAMINOPHEN 325 MG TABLET PO (03:02)
[2023-08-04 03:20] LABS: Lactate/Lactic Acid 1.5 mmol/L (0.4-2.0)
--- OUTSIDE RECORDS SUMMARY | 2023-08-04 04:49 | XMS_ITS | CCD ---
Author Name Unknown Address [address] [place] [address] Organization [facility] Care Team Providers Care Money Order Clerk Name Role Phone CARL TY Unavailable Unavailable PEPE FERMIN Unavailable Unavailab Shayla Bolanos Unavailable NO FAMILY, PHYSICIAN Primary Care Provider Unava ilable ANTHONY Theodore Emergency Provider ANTHONY Theodore Attending Provider [phone] BRITNEY Jimenez Attending Provider DO Reji Rangel Attending Provider DO Jhonatan Crowell Emergency Provider [phone] DO Jhonatan Crowell Attending Provider DO Jhonatan Crowell Attending Provider BRITNEY Leon Attending Provider DO Reji Rangel Attending Provider MD Laith Warner Emergency Provider [phone] DO Reji Rangel Attending Provider MD Laith Warner Attending Provider DO Chon Valdez Emergency Provider DO Abimbola Bran Primary Care Provider Abimbola Bran Unavailable Laith Carlson Unavailable NO FAMILY, PHYSICIAN Primary Care Provider Unava ilable DO Reji Rangel Attending Provider MD Laith Carlson Attending Provider [phone] MD Albino Saxena Attending Provider NO FAMILY, PHYSICIAN Primary Care Provider Unava ilable Bran, DO Abimbola A Primary Care Provider DO Jhonatan Crowell [facility] E Emergency Provider MD Neeraj Farrell Admit Provider MD Neeraj Farrell Attending Provider Yina DO Abimbola A Primary Care Provider MD Laith Carlson Attending Provider MD Albino Saxena Attending Provider DO Jhonatan Crowell Emergency Provider [phone] [facility] Sarah E Emergency Provider MD Neeraj Farrell Admit Provider MD Selvin Bey Attending Provider [phone] MD Laith Carlson Other Provider Bran, Abimbola A Primary Care Unavailable Albino Saxena Attending Unavailable Albino Saxena Admitting Unavailable Laith Carlson Admitting Unavailable Bran, Abimbola A Primary Care Unavailable Laith Carlson Attending Unavailable Laith Warner Attending Unavailable Laith Warner Admitting Unavailable NO FAMILY, PHYSICIAN Primary Care Unavailable NO FAMILY, PHYSICIAN Primary Care Unavailable Jhonatan Crowell Attending Unavailable Jhonatan Crowell M Admitting Unavailable NO FAMILY, PHYSICIAN Primary Care Unavailable Reji Rangel Attending Unavailable Reji Rangel Admitting Unavailable ObarieleyEvelyn sommer Attending Unavailable Evelyn Leon L Admitting Unavailable NO FAMILY, PHYSICIAN Primary Care Unavailable Jhnoatan Crowell Attending Unavailable Jhonatan Crowell M Admitting [...] Orally every 8 hrs for 30 days [facility] Apr, Active acetaminophen 325 mg / oxyCODONE [...] Laxative Start: 04-17-2023 Bisacodyl Active 10 MG NM Daily 0 April 17, 2023 12:00am brompheniramine maleate 0.4 mg/ml / dextromethorphan hydrobromide 2 mg/ml / pseudoephedrine hydrochloride 6 mg/ml oral solution (2 sources) alpha-Adrenergic Agonist, Uncompetitive F-rzwaoh-S-aspartat e Receptor Antagonist, Sigma-1 Agonist Start: 06-06-2021 [...] capsule with food Orally Once a day [facility] Apr, Active Start: 04-16-2023 take 100 mg [...] MG/0.4ML 0.3 mL Injection Once a day [facility] Apr, Active ertapenem 1000 mg injection (2 [...] Orally every 4 hrs for 14 days [facility] Jun, Active Start: 04-16-2023 take 1 tablet by estuardo th every four hours oxyCODONE HCl 5 MG 1 tablet as needed Orally every 4 hrs [facility] Apr, Active Start: 04-16-2023 take 2.5 mg by mouth every four hours Oxycodone Active 2.5 MG PO Every 4 hours 10 5 April 16, 2023 polyethylene glycol 3350 59025 mg powder for oral solution (1 source) Osmotic Laxative Start: 04-17-2023 Polyethylene Glycol 3350 (Healthylax) 17 gram Powder In Packet Active 17 GM PO Daily April 17, 2023 9:43am pregabalin 75 mg oral capsule (6 sources) Start: 06-09-2023 take 1 capsule by mouth every eight hours Pregabalin 75 MG 1 capsule Orally three times a day for 90 days [facility] Jun, Active Start: 04-16-2023 take 1 capsule by mo ut every twelve hours Pregabalin 50 MG 1 capsule Orally Twice a day [facility] Apr, Active Sennosides (Senokot) 8.6 mg tablet [...] Start: 02-24-2023 take 1 capsule by mo [facility] every eight hours Gabapentin 300 MG 1 [...] aPTT Coag (PPP) [Time] 32.5 s 25.1-36.5 [facility] Comment on above: A hematocrit value g reater than 55% may lead to inaccurate results in coagulation testing. Patients having hematocrit values >55% require a special collection tube for coagulation studies. Please contact the laboratory at [phone] for redraw instructions. Alanine aminotransferase [En zymatic activity/volume] in Serum or PlasmaOrdered By: Selvin Bey on 04-15-2023 ALT [Catalytic activity/Vol] 118 U/L 7-52 [facility] Albumin [Mass/volume] in Ser um or Plasma by Bromocresol green (BCG) dye binding methoOrdered By: Selvin Bey on 04-15-2023 Albumin BCG dye [Mass/Vol] 3.3 g/dL 3.5-5.7 [facility] Alkaline phosphatase [Enzyma tic activity/volume] in Serum or PlasmaOrdered By: Selvin Bey on 04-15-2023 ALP [Catalytic activity/Vol] 77 U/L 34-104 [facility] Aspartate aminotransferase [ Enzymatic activity/volume] in Serum or PlasmaOrdered By: Selvin Bey on 04-15-2023 AST [Catalytic activity/Vol] 48 U/L 13-39 [facility] Bilirubin.direct [Mass/volum e] in Serum or PlasmaOrdered By: Selvin Bey on 04-15-2023 Bilirubin.direct [Mass/Vol] 0.10 mg/dL 0.03-0.18 [facility] Bilirubin.total [Mass/volume ] in Serum or PlasmaOrdered By: Selvin Bey on 04-15-2023 Bilirubin [Mass/Vol] 0.5 mg/dL 0.3-1.0 [facility] C reactive protein [Mass/vol ume] in Serum or PlasmaOrdered By: Laith Carlson on 04-15-2023 CRP [Mass/Vol] 3.1 mg/dL 0.0-0.5 [facility] C-Reactive Proteinon 023 C-Reactive Protein 3.1 mg/dL High 0.0-0.5 [facility] Comment on above: Result Comment: PERF ORMED BY: [place] [address] PATHOLOGIST FARMWORKER FRUIT IAN ACE M.D. Performed By: #### C UBLD, CMP, CBC #### [facility] [address] [place] [address] Globulin Calc (S) [Mass/Vol] Ordered By: Selvin Bey on 04-15-2023 Globulin (S) [Mass/Vol] 4.3 g/dL [facility] Hepatic Panelon 04-15-2023 Albumin [Mass/Vol] 3.3 g/dL Low 3.5-5.7 [facility] Comment on above: Performed By: #### C UBLD, CMP, CBC #### [facility] [address] Albumin/Globulin [Mass ratio] 0.8 {ratio} Normal [facility] Comment on above: Performed By: #### C UBLD, CMP, CBC #### [address] ALP [Catalytic activity/Vol] 77 U/L Normal 34-104 [facility] Comment on above: Performed By: #### C UBLD, CMP, CBC #### [address] ALT [Catalytic activity/Vol] 118 U/L High 7-52 [facility] Comment on above: Performed By: #### C UBLD, CMP, CBC #### [address] Aspartate Amino Transferase Normal 13-39 [facility] Comment on above: Result Comment: Spec imen hemolyzed, redraw requested Performed By: #### C UBLD, CMP, CBC #### [address] Bilirubin [Mass/Vol] 0.5 mg/dL Normal 0.3-1.0 [facility] Comment on above: Performed By: #### C UBLD, CMP, CBC #### [address] Bilirubin,Direct Normal 0.03-0.18 [facility] Comment on above: Result Comment: Spec imen hemolyzed, redraw requested Performed By: #### C UBLD, CMP, CBC #### [address] Bilirubin,Indirect Not performed Normal [facility] Comment on above: Performed By: #### C UBLD, CMP, CBC #### [address] Globulin (S) [Mass/Vol] 4.3 g/dL Normal [facility] Comment on above: Performed By: #### C UBLD, CMP, CBC #### [address] Protein [Mass/Vol] 7.6 g/dL Normal 6.4-8.9 [facility] Comment on above: Performed By: #### C UBPREMA, CMP, CBC #### [facility] [address] [place] [id number] [facility] INR in Platelet poor plasma by Coagulation assayOrdered By: Laith Carlson on 04-15-2023 INR Coag (PPP) [Relative time] 1.0 {INR} [facility] Comment on above: INR Therapeutic Rang e [...] Coag (Bld) [Time] 32.5 s Normal 25.1-36.5 [facility] Comment on above: Result Comment: A he matocrit value greater than 55% may lead to inaccurate results in coagulation testing. Patients having hematocrit values >55% require a special collection tube for coagulation studies. Please contact the laboratory at [phone] for redraw instructions. PERFORMED BY: [place] [address] PATHOLOGIST FARMWORKER [employer] IAN ACE M.D. Performed By: #### C GIORGI, ALEXX, CBC #### [facility] [address] [place] [address] [facility] Phosphate [Mass/volume] in S marivel or PlasmaOrdered By: Selvin Bey on 04-15-2023 Phosphate [Mass/Vol] 3.2 mg/dL 2.5-4.5 [facility] Phosphoruson 04-15-2023 Phosphate [Mass/Vol] 3.2 mg/dL Normal 2.5-4.5 [facility] Comment on above: Result Comment: PERF ORMED BY: [place] [address] PATHOLOGIST FARMWORKER [employer] IAN ACE M.D. Performed By: #### C UBLD, CMP, CBC #### [facility] [address] [place] [address] [facility] Protein [Mass/volume] in Ser um or PlasmaOrdered By: Selvin Bey on 04-15-2023 Protein [Mass/Vol] 7.6 g/dL 6.4-8.9 [facility] Prothrombin Time INRon 04-15 INR Coag (PPP) [Relative time] 1.0 {INR} Normal [facility] Comment on above: Result Comment: INR Therapeutic [...] By: #### C UBLD, CMP, CBC #### [facility] [address] [place] [id number] [facility] PT Coag (PPP) [Time] 11.9 s Normal 9.0-12.9 [facility] Comment on above: Result Comment: A he matocrit value greater than 55% may lead to inaccurate results in coagulation testing. Patients having hematocrit values >55% require a special collection tube for coagulation studies. Please contact the laboratory at [phone] for redraw instructions. Performed By: #### C UBLD, CMP, CBC #### [facility] [address] [place] [address] [facility] Prothrombin time (PT)Ordered By: Laith Carlson on 04-15-2023 PT Coag (PPP) [Time] 11.9 s 9.0-12.9 [facility] Comment on above: A hematocrit value g reater than 55% may lead to inaccurate results in coagulation testing. Patients having hematocrit values >55% require a special collection tube for coagulation studies. Please contact the laboratory at [phone] for redraw instructions. Redraw Renaldo 04-15-2023 AST [Catalytic activity/Vol] 48 U/L High 13-39 [facility] Comment on above: Result Comment: PERF ORMED BY: [place] [address] PATHOLOGIST FARMWORKER FR[employer] IAN ACE M.D. Performed By: #### C UBLD, CMP, CBC #### [facility] [address] [place] [address] Redraw Bilirubin,Directon Redraw Bilirubin,Direct 0.10 mg/dL Normal 0.03-0.18 [facility] Comment on above: Performed By: #### R EDRAW AST, REDRAW DBIL #### [facility] [address] [place] [address] Serum or plasma albumin/glob ulin mass ratioOrdered By: Selvin Bey on 04-15-2023 Albumin/Globulin [Mass ratio] 0.8 {ratio} [facility] Serum or plasma non-glucuron idated bilirubin measurement (mass/volume)Ordered By: Selvin Bey on 04-15-2023 Bilirubin.indirect [Mass/Vol] TNP [facility] Comment on above: Test not performed US abdomen limitedon 023 US abdomen limited [place] [facility] [place] [address] [place] [address] Ultrasound Report Signed Patient: [place] Cesar MR#: [id number] : 1955 Acct:[id number] Age/Sex: 67 / F ADM Date: 04/10/23 Loc: Room: [address] [place] [address] Type: ADM IN Attending Dr: Selvin Bey MD Ordering Provider: Selvin Bye MD Date of Service: 04/15/23 US/US abdomen [...] Padmini Bethea M.D.04/15/2023 10:01 AM Dictation Location: [place] [address] Tech: Elyse Hart Transcribed By: MARIA VICTORIA 04/15/23 1001 Dictated By: Padmini Bethea MD 04/15/23 0959 Signed By: 04/15/23 1001 Normal [facility] Anisocytosis LM Ql (Bld)Orde red By: Selvin Bey on 04-14-2023 Anisocytosis Ql (Bld) Slight [facility] Band form neutrophils/100 WB C Manual cnt (Bld)Ordered By: Selvin Bey on 04-14-2023 Band form neutrophils/100 WBC (Bld) 2 % 0-5 [facility] Basophils Auto (Bld) [#/Vol] Ordered By: Selvin Bey on 04-14-2023 Basophils (Bld) [#/Vol] N/A [facility] Basophils/100 WBC Auto (Bld) Ordered By: Selvin Bey on 04-14-2023 Basophils/100 WBC (Bld) N/A [facility] Basophils/100 WBC Manual cnt (Bld)Ordered By: Selvin Bey on 04-14-2023 Basophils/100 WBC (Bld) 1 % 0-2 [facility] Calcium [Mass/volume] in Ser um or PlasmaOrdered By: Selvin Bey on 04-14-2023 Calcium [Mass/Vol] 9.4 mg/dL 8.6-10.3 [facility] Carbon dioxide, total [Moles /volume] in Serum or PlasmaOrdered By: Selvin Bey on 04-14-2023 CO2 [Moles/Vol] 20.5 mmol/L 21.0-31.0 [facility] Chloride [Moles/volume] in S marivel or PlasmaOrdered By: Selvin Bey on 04-14-2023 Chloride [Moles/Vol] 102 mmol/L 98-107 [facility] Comprehensive Metabolic Pane jeremy 04-14-2023 Albumin [Mass/Vol] 3.3 g/dL Low 3.5-5.7 [facility] Comment on above: Performed By: #### C UBLD, CMP, CBC #### [facility] [address] Albumin/Globulin [Mass ratio] 0.8 {ratio} Normal [facility] Comment on above: Performed By: #### C UBLD, CMP, CBC #### [facility] [address] ALP [Catalytic activity/Vol] 82 U/L Normal 34-104 [facility] Comment on above: Performed By: #### C UBLD, CMP, CBC #### [facility] [address] ALT [Catalytic activity/Vol] 150 U/L High 7-52 [facility] Comment on above: Performed By: #### C UBLD, CMP, CBC #### [facility] [address] [place] [address] [place] Anion gap [Moles/Vol] 11.3 mmol/L Normal 6.0-15.0 [facility] Comment on above: Performed By: #### C UBLD, CMP, CBC #### [facility] [address] [place] [address] [place] AST [Catalytic activity/Vol] 79 U/L High 13-39 [facility] Comment on above: Performed By: #### C UBLD, CMP, CBC #### [facility] [address] [place] [address] [place] Bilirubin [Mass/Vol] 0.4 mg/dL Normal 0.3-1.0 [facility] Comment on above: Performed By: #### C UBLD, CMP, CBC #### [facility] [address] [place] [address] [place] Calcium [Mass/Vol] 9.4 mg/dL Normal 8.6-10.3 [facility] Comment on above: Performed By: #### C UBLD, CMP, CBC #### [facility] [address] Chloride [Moles/Vol] 102 mmol/L Normal 98-107 [facility] Comment on above: Performed By: #### C ALEXX RAND, CBC #### [facility] [address] CO2 [Moles/Vol] 20.5 mmol/L Low 21.0-31.0 [facility] Comment on above: Performed By: #### C UBPREMA CMP, CBC #### [facility] [address] Creatinine [Mass/Vol] 0.86 mg/dL Normal 0.60-1.20 [facility] Comment on above: Performed By: #### C ALEXX RAND, CBC #### [facility] [address] [place] [address] [place] Creatinine Clr Calc Pharmacy 87.48 [facility] Comment on above: Performed By: #### C ALEXX RAND, CBC #### [place] [address] [place] GFR/1.73 sq M.predicted MDRD (S/P/Bld) [Vol rate/Area] mL/min/{1.73_m2} [facility] Comment on above: Performed By: #### C ALEXX RAND, CBC #### [address] Globulin (S) [Mass/Vol] 4.0 g/dL [facility] Comment on above: Performed By: #### C UBPREMA CMP, CBC #### [address] Glucose [Mass/Vol] 108 mg/dL High 70-100 [facility] Comment on above: Result Comment: [place] Glucose Reference Range is dependent on time and content of last meal. Glucose of more than 200 mg/dL in a nonstressed, ambulatory subject supports the diagnosis of Diabetes Mellitus. ADA recommended reference range Performed By: #### C UBLD, CMP, CBC #### [place] [address] [place] Potassium [Moles/Vol] 3.8 mmol/L Normal 3.5-5.1 [facility] Comment on above: Performed By: #### C UBLD, CMP, CBC #### [facility] [address] Protein [Mass/Vol] 7.3 g/dL Normal 6.4-8.9 [facility] Comment on above: Performed By: #### C UBLD, CMP, CBC #### [address] Sodium [Moles/Vol] 130 mmol/L Low 136-145 [facility] Comment on above: Performed By: #### C UBLD, CMP, CBC #### [address] Urea nitrogen [Mass/Vol] 37 mg/dL High 7-25 [facility] Comment on above: Performed By: #### C UBLD, CMP, CBC #### [address] Creatinine [Mass/volume] in Serum or PlasmaOrdered By: Selvin Bey on 04-14-2023 Creatinine [Mass/Vol] 0.86 mg/dL 0.60-1.20 [facility] Diff and CBCon 04-14-2023 Anisocytosis Ql (Bld) Slight Normal [facility] Comment on above: Performed By: #### C UBLD, CMP, CBC #### [facility] [address] [place] [address] [place] Band form neutrophils/100 WBC (Bld) 2 % Normal 0-5 [facility] Comment on above: Performed By: #### C UBLD, CMP, CBC #### [facility] [address] [place] [address] [place] Basophils/100 WBC (Bld) 1 % Normal 0-2 [facility] Comment on above: Performed By: #### C UBLD, CMP, CBC #### [place] [address] [place] Eosinophils/100 WBC (Bld) 3 % Normal 1-3 [facility] Comment on above: Performed By: #### C UBLD, CMP, CBC #### [facility] [address] Erythrocyte distribution width (RBC) [Ratio] 16.9 % High 11.9-15.3 [facility] Comment on above: Performed By: #### C UBLD, CMP, CBC #### [address] Giant Platelet Tally 2 /100{WBC} Normal [facility] Comment on above: Performed By: #### C UBLD, CMP, CBC #### [address] Hematocrit (Bld) [Volume fraction] 36.0 % Normal 34.0-46.4 [facility] Comment on above: Performed By: #### C UBLD, CMP, CBC #### [address] Hemoglobin (Bld) [Mass/Vol] 11.5 g/dL Low 11.8-15.4 [facility] Comment on above: Performed By: #### C UBLD, CMP, CBC #### [address] Lymphocytes/100 WBC (Bld) 13 % Low 18-42 [facility] Comment on above: Performed By: #### C UBLD, CMP, CBC #### [address] MCH (RBC) [Entitic mass] 26.0 pg Normal 24.7-34.3 [facility] Comment on above: Performed By: #### C UBLD, CMP, CBC #### [address] MCV (RBC) [Entitic vol] 81.0 fL Normal 80-100 [facility] Comment on above: Performed By: #### C UBLD, CMP, CBC #### [address] Mean Corpuscular HGB Conc 32.1 g/dL Normal 32.0-35.0 [facility] Comment on above: Performed By: #### C UBLD, CMP, CBC #### [facility] [address] [place] [address] [place] Metamyelocytes 3 % High 0-0 [facility] Comment on above: Performed By: #### C UBLD, CMP, CBC #### [facility] [address] [place] [address] [place] Microcytosis Slight Normal [facility] Comment on above: Performed By: #### C UBLD, CMP, CBC #### [place] [address] [place] Monocytes/100 WBC (Bld) 8 % Normal 2-11 [facility] Comment on above: Performed By: #### C UBLD, CMP, CBC #### [address] Nucleated Red Blood Cell 2 /100{WBC} High 0-0 [facility] Comment on above: Performed By: #### C UBLD, CMP, CBC #### [place] [address] [place] Platelet Estimate Increased Normal Normal [facility] Comment on above: Performed By: #### C UBLD, CMP, CBC #### [place] [address] [place] Platelet mean volume (Bld) [Entitic vol] 7.0 fL Normal 6.3-10.7 [facility] Comment on above: Result Comment: PERF ORMED BY: [place] [address] PATHOLOGIST FARMWORKER FR[employer] IAN ACE M.D. Performed By: #### C UBLD, CMP, CBC #### [facility] [address] [place] [address] [place] Platelet Morphology Normal Normal Normal [facility] Comment on above: Result Comment: PERF ORMED BY: [place] [address] PATHOLOGIST FARMWORK[employer] IAN ACE M.D. Performed By: #### C UBLD, CMP, CBC #### [facility] [address] [place] [address] [place] Platelets (Bld) [#/Vol] 457 10*3/uL High 150-450 [facility] Comment on above: Performed By: #### C UBLD, CMP, CBC #### [facility] [address] Polychromasia Slight Normal [facility] Comment on above: Performed By: #### C UBLD, CMP, CBC #### [facility] [address] RBC (Bld) [#/Vol] 4.44 10*6/uL Normal 3.60-5.00 [facility] Comment on above: Performed By: #### C UBLD, CMP, CBC #### [facility] [address] Segmented neutrophils/100 WBC (Bld) 71 % High 50-70 [facility] Comment on above: Performed By: #### C UBLD, CMP, CBC #### [facility] [address] [place] [address] [place] WBC (Bld) [#/Vol] 6.5 10*3/uL Normal 3.8-11.6 [facility] Comment on above: Performed By: #### C UBLD, CMP, CBC #### [address] Eosinophils Auto (Bld) [#/Vo l]Ordered By: Selvin Bey on 04-14-2023 Eosinophils (Bld) [#/Vol] N/A [facility] Eosinophils/100 WBC Auto (Bl d)Ordered By: Selvin Bey on 04-14-2023 Eosinophils/100 WBC (Bld) N/A [facility] Eosinophils/100 WBC Manual c nt (Bld)Ordered By: Selvin Bey on 04-14-2023 Eosinophils/100 WBC (Bld) 3 % 1-3 [facility] Erythrocyte distribution wid th Auto (RBC) [Ratio]Ordered By: Selvin Bey on 04-14-2023 Erythrocyte distribution width (RBC) [Ratio] 16.9 % 11.9-15.3 [facility] Giant platelets/100 leukocyt es [Ratio] in Blood by Manual countOrdered By: Selvin Bey on 04-14-2023 Giant platelets/100 WBC Manual cnt (Bld) [Ratio] 2 /100{WBC} [facility] Glucose [Mass/volume] in Ser um or PlasmaOrdered By: Selvin Bey on 04-14-2023 Glucose [Mass/Vol] 108 mg/dL 70-100 [facility] Comment on above: ADA recommended refe rence rangeRandom Glucose Reference Range is dependent on time and content of last meal. Glucose of more than 200 mg/dL in a nonstressed, ambulatory subject supports the diagnosis of Diabetes Mellitus. Hematocrit Auto (Bld) [Volum e fraction]Ordered By: Selvin Bey on 04-14-2023 Hematocrit (Bld) [Volume fraction] 36.0 % 34.0-46.4 [facility] Hemoglobin [Mass/volume] in BloodOrdered By: Selvin Bey on 04-14-2023 Hemoglobin (Bld) [Mass/Vol] 11.5 g/dL 11.8-15.4 [facility] Hepatitis Acute Panelon 110 HBsAg Screen Negative Normal Negative [facility] Comment on above: Performed By: #### L ACTIC, CMP, CBC #### [facility] [address] [place] [address] Hepatitis A Antibody IgM Negative Normal Negative [facility] Comment on above: Performed By: #### L ACTIC, CMP, CBC #### [facility] [address] [place] [address] Hepatitis B Core Antibody IgM Negative Normal Negative [facility] Comment on above: Performed By: #### L ACTIC, CMP, CBC #### [facility] [address] [place] [address] Hepatitis C Virus Antibody Non-Reactive Normal Non Reactive [facility] Comment on above: Performed By: #### L ACTIC, CMP, CBC #### [facility] [address] [place] [address] Interpretation Hepatitis C Normal . [facility] Comment on above: Result Comment: Not infected with HCV unless early or acute infection is suspected (which may be delayed in an immunocompromised individual), or other evidence exists to indicate HCV infection. Performed at: - [facility] [id number] Global Regulatory Affairs Manager: Mohsen Mccarthy PhD, Phone: [phone] PERFORMED BY: [place] [address] PATHOLOGIST [employer] ACE M.D. Performed By: #### L ACTIC, CMP, CBC #### [address] Hepatitis B virus surface Ag [Presence] in Serum or Plasma by ImmunoassayOrdered By: Selvin Bey on 04-14-2023 HBV surface Ag IA Ql Negative Negative [facility] Hepatitis C virus IgG Ab [Pr esence] in Serum or Plasma by ImmunoassayOrdered By: Selvin Bey on 04-14-2023 HCV IgG IA Ql Non-Reactive Non Reactive [facility] Hepatitis C virus RNA [Units /volume] (viral load) in Serum or Plasma by JUJU with probOrdered By: Selvin Bey on 04-14-2023 HCV RNA JUJU+probe Qn N/A [facility] Hepatitis C virus RNA [log u nits/volume] (viral load) in Serum or Plasma by JUJU withOrdered By: Selvin Bey on 04-14-2023 HCV RNA JUJU+probe [Log units/Vol] N/A [facility] Leukocytes [#/volume] correc julia for nucleated erythrocytes in Blood by Automated counOrdered By: Selvin Bey on 04-14-2023 WBC corrected for nucl RBC Auto (Bld) [#/Vol] 6.5 10*3/uL 3.8-11.6 [facility] Lymphocytes Auto (Bld) [#/Vo l]Ordered By: Selvin Bey on 04-14-2023 Lymphocytes (Bld) [#/Vol] N/A [facility] Lymphocytes/100 WBC Auto (Bl d)Ordered By: Selvin Bey on 04-14-2023 Lymphocytes/100 WBC (Bld) N/A [facility] Lymphocytes/100 WBC Manual c nt (Bld)Ordered By: Selvin Bey on 04-14-2023 Lymphocytes/100 WBC (Bld) 13 % 18-42 [facility] MCH Auto (RBC) [Entitic mass ]Ordered By: Selvin Bey on 04-14-2023 MCH (RBC) [Entitic mass] 26.0 pg 24.7-34.3 [facility] MCHC Auto (RBC) [Mass/Vol]Or dered By: Selvin Bey on 04-14-2023 MCHC (RBC) [Mass/Vol] 32.1 g/dL 32.0-35.0 [facility] MCV Auto (RBC) [Entitic vol] Ordered By: Selvin Bey on 04-14-2023 MCV (RBC) [Entitic vol] 81.0 fL 80-100 [facility] Magnesiumon 04-14-2023 Magnesium [Mass/Vol] 2.3 mg/dL Normal 1.9-2.7 [facility] Comment on above: Result Comment: PERF ORMED BY: [place] [address] PATHOLOGIST [employer] ACE M.D. Performed By: #### C UBLD, CMP, CBC #### [address] Magnesium [Mass/volume] in S marivel or PlasmaOrdered By: Selvin Bey on 04-14-2023 Magnesium [Mass/Vol] 2.3 mg/dL 1.9-2.7 [facility] Metamyelocytes/100 WBC Manua l cnt (Bld)Ordered By: Selvin Bey on 04-14-2023 Metamyelocytes/100 WBC (Bld) 3 % 0-0 [facility] Microcytes LM Ql (Bld)Ordere d By: Selvin Bey on 04-14-2023 Microcytes Ql (Bld) Slight [facility] Monocytes Auto (Bld) [#/Vol] Ordered By: Selvin Bey on 04-14-2023 Monocytes (Bld) [#/Vol] N/A [facility] Monocytes/100 WBC Auto (Bld) Ordered By: Selvin Bey on 04-14-2023 Monocytes/100 WBC (Bld) N/A [facility] Monocytes/100 WBC Manual cnt (Bld)Ordered By: Selvin Bey on 04-14-2023 Monocytes/100 WBC (Bld) 8 % 2-11 [facility] Neutrophils Auto (Bld) [#/Vo l]Ordered By: Selvin Bey on 04-14-2023 Neutrophils (Bld) [#/Vol] N/A [facility] Neutrophils/100 WBC Auto (Bl d)Ordered By: Selvin Bey on 04-14-2023 Neutrophils/100 WBC (Bld) N/A [facility] No Panel InformationOrdered By: Selvin Bey on 04-14-2023 Hepatitis A IgM Antibody Negative Negative [facility] Hepatitis B Core IgM Antibody Negative Negative [facility] Hepatitis C Interpretation See comment . [facility] Comment on above: Not infected with HC V unless early or acute infection issuspected (which may be delayed in an immunocompromisedindividual), or other evidence exists to indicate HCVinfection.Performed at: [email or web address] [place] [id number] Director: Mohsen Mccarthy PhD, Phone: [phone] Estimated GFR (CKD-EPI) > 60.0 mL/Min [facility] Creatinine Clearance (Chem 87.48 [facility] Nucleated RBC/100 WBC Manual cnt (Bld) [Ratio]Ordered By: Selvin Bey on 04-14-2023 Nucleated RBC/100 WBC (Bld) [Ratio] 2 /100{WBC} 0-0 [facility] Nucleated erythrocytes [Pres ence] in Blood by Automated countOrdered By: Selvin Bey on 04-14-2023 Nucleated RBC Auto Ql (Bld) N/A [facility] Phosphoruson 04-14-2023 Phosphate [Mass/Vol] 2.6 mg/dL Low 3.7-7.2 [facility] Comment on above: Performed By: #### C UBLD, CMP, CBC #### [facility] [address] [place], [place] [id number] [facility] Platelet adequacy [Presence] in Blood by Light microscopyOrdered By: Selvin Bey on 04-14-2023 Platelets LM Ql (Bld) Increased Normal [facility] Platelet mean volume Auto (B ld) [Entitic vol]Ordered By: Selvin Bey on 04-14-2023 Platelet mean volume (Bld) [Entitic vol] 7.0 fL 6.3-10.7 [facility] Platelet morphology finding [Identifier] in BloodOrdered By: Selvin Bey on 04-14-2023 Platelet morphology finding Nom (Bld) Normal Normal [facility] Platelets Auto (Bld) [#/Vol] Ordered By: Selvin Bey on 04-14-2023 Platelets (Bld) [#/Vol] 457 10*3/uL 150-450 [facility] Polychromasia [Presence] in Blood by Light microscopyOrdered By: Selvin Bey on 04-14-2023 Polychromasia LM Ql (Bld) Slight [facility] Potassium [Moles/volume] in Serum or PlasmaOrdered By: Selvin Bey on 04-14-2023 Potassium [Moles/Vol] 3.8 mmol/L 3.5-5.1 [facility] RBC Auto (Bld) [#/Vol]Ordere d By: Selvin Bey on 04-14-2023 RBC (Bld) [#/Vol] 4.44 10*6/uL 3.60-5.00 [facility] RBC morphologyOrdered By: Ra taco Bey on 04-14-2023 RBC morphology finding Nom (Bld) N/A [facility] Segmented neutrophils/100 WB C Manual cnt (Bld)Ordered By: Selvin Bey on 04-14-2023 Segmented neutrophils/100 WBC (Bld) 71 % 50-70 [facility] Serum or plasma anion gap de terminationOrdered By: Selvin Bey on 04-14-2023 Anion gap [Moles/Vol] 11.3 mmol/L 6.0-15.0 [facility] Sodium [Moles/volume] in Ser um or PlasmaOrdered By: Selvin Bey on 04-14-2023 Sodium [Moles/Vol] 130 mmol/L 136-145 [facility] US venous duplex LE BIon US venous duplex LE BI [facility] [place] [address] [place] [address] Ultrasound Report Signed Patient: [place] Cesar MR#: [id number] : 1955 Acct:[id number] Age/Sex: 67 / F ADM Date: 04/10/23 Loc: Room: [address] [place] [address] Type: ADM IN Attending Dr: Selvin Bey [...] Du Zaragoza M.D.04/14/2023 11:07 AM Dictation Location: [place] [address] Tech: Hermelinda Knox Transcribed By: MARIA VICTORIA 04/14/23 110 Dictated By: Du Zaragoza MD 04/14/23 1106 Signed By: 04/14/23 110 Normal [facility] Urea nitrogen [Mass/volume] in Serum or PlasmaOrdered By: Selvin Bey on 04-14-2023 Urea nitrogen [Mass/Vol] 37 mg/dL 7-25 [facility] Vancomycin,Troughon 04-14-20 23 Vancomycin,Trough 16.7 ug/mL Normal 10.0-20.[address] [facility] Comment on above: Result Comment: Last dose: - PERFORMED BY: [place] [address] PATHOLOGIST [employer] ACE M.D. Performed By: #### C UBLD, CMP, CBC #### [facility] [address] [place] [address] [place] WBC Auto (Bld) [#/Vol]Ordere d By: Selvin Bey on 04-14-2023 WBC (Bld) [#/Vol] 6.5 10*3/uL 3.8-11.6 [facility] Basic Metabolic Panelon Anion gap [Moles/Vol] 11.7 mmol/L Normal 6.0-15.0 [facility] Comment on above: Performed By: #### L ACTIC, CMP, CBC #### [facility] [address] [place] [address] [place] Calcium [Mass/Vol] 8.9 mg/dL Normal 8.6-10.3 [facility] Comment on above: Performed By: #### L ACTIC, CMP, CBC #### [facility] [address] [place] [address] [place] Chloride [Moles/Vol] 100 mmol/L Normal 98-107 [facility] Comment on above: Performed By: #### L ACTIC, CMP, CBC #### [facility] [address] [place] [address] [place] CO2 [Moles/Vol] 20.7 mmol/L Low 21.0-31.0 [facility] Comment on above: Performed By: #### L ACTIC, CMP, CBC #### [facility] [address] [place] [address] [place] Creatinine [Mass/Vol] 1.10 mg/dL Normal 0.60-1.20 [facility] Comment on above: Performed By: #### L ACTIC, CMP, CBC #### [facility] [address] [place] [address] [place] Creatinine Clr Calc Pharmacy 68.40 [facility] Comment on above: Result Comment: PERF ORMED BY: [place] [address] PATHOLOGIST F[employer] ACE M.D. Performed By: #### L ACTIC, CMP, CBC #### [place] [address] [place] GFR/1.73 sq M.predicted MDRD (S/P/Bld) [Vol rate/Area] 55.418 mL/min/{1.73_m2} [facility] Comment on above: Performed By: #### L ACTIC, CMP, CBC #### [address] Glucose [Mass/Vol] 132 mg/dL High 70-100 [facility] Comment on above: Result Comment: [place] Glucose Reference Range is dependent on time and content of last meal. Glucose of more than 200 mg/dL in a nonstressed, ambulatory subject supports the diagnosis of Diabetes Mellitus. ADA recommended reference range Performed By: #### L ACTIC, CMP, CBC #### [address] Potassium [Moles/Vol] 3.4 mmol/L Low 3.5-5.1 [facility] Comment on above: Performed By: #### L ACTIC, CMP, CBC #### [place] [address] [place] Sodium [Moles/Vol] 129 mmol/L Low 136-145 [facility] Comment on above: Performed By: #### L ACTIC, CMP, CBC #### [address] Urea nitrogen [Mass/Vol] 42 mg/dL High 7-25 [facility] Comment on above: Performed By: #### L ACTIC, CMP, CBC #### [address] Ovalocyte detectionOrdered B y: Malorie Nathan on 04-13-2023 Ovalocytes LM Ql (Bld) Slight [facility] Platelets Large [Presence] i n Blood by Light microscopyOrdered By: Malorie Nathan on 04-13-2023 Platelets Large LM Ql (Bld) Slight [facility] Poikilocytosis [Presence] in Blood by Light microscopyOrdered By: Malorie Nathan on 04-13-2023 Poikilocytosis LM Ql (Bld) Slight [facility] Scan and CBCon 04-13-2023 Anisocytosis Ql (Bld) Slight Normal [facility] Comment on above: Performed By: #### L ACTIC, CMP, CBC #### [facility] [address] [place] [address] [place] Basophils (Bld) [#/Vol] 0.1 10*3/uL Normal 0.0-0.2 [facility] Comment on above: Performed By: #### L ACTIC, CMP, CBC #### [address] Basophils/100 WBC (Bld) 1.3 % Normal . [facility] Comment on above: Performed By: #### L ACTIC, CMP, CBC #### [facility] [address] [place] [address] [place] Eosinophils (Bld) [#/Vol] 0.2 10*3/uL Normal 0.0-0.45 [facility] Comment on above: Performed By: #### L ACTIC, CMP, CBC #### [place] [address] [place] Eosinophils/100 WBC (Bld) 3.0 % Normal . [facility] Comment on above: Performed By: #### L ACTIC, CMP, CBC #### [facility] [address] [place] [address] [place] Erythrocyte distribution width (RBC) [Ratio] 16.7 % High 11.9-15.3 [facility] Comment on above: Performed By: #### L ACTIC, CMP, CBC #### [facility] [address] [place] [address] [place] Hematocrit (Bld) [Volume fraction] 33.0 % Low 34.0-46.4 [facility] Comment on above: Performed By: #### L ACTIC, CMP, CBC #### [address] Hemoglobin (Bld) [Mass/Vol] 10.7 g/dL Low 11.8-15.4 [facility] Comment on above: Performed By: #### L ACTIC, CMP, CBC #### [address] Large Platelets Slight Normal [facility] Comment on above: Result Comment: PERF ORMED BY: [place] [address] PATHOLOGIST [employer] ACE M.D. Performed By: #### L ACTIC, CMP, CBC #### [address] Lymphocytes (Bld) [#/Vol] 0.8 10*3/uL Low 1.00-4.8 [facility] Comment on above: Performed By: #### L ACTIC, CMP, CBC #### [address] Lymphocytes/100 WBC (Bld) 10.6 % Normal . [facility] Comment on above: Performed By: #### L ACTIC, CMP, CBC #### [address] MCH (RBC) [Entitic mass] 26.0 pg Normal 24.7-34.3 [facility] Comment on above: Performed By: #### L ACTIC, CMP, CBC #### [address] MCV (RBC) [Entitic vol] 80.2 fL Normal 80-100 [facility] Comment on above: Performed By: #### L ACTIC, CMP, CBC #### [address] Mean Corpuscular HGB Conc 32.4 g/dL Normal 32.0-35.0 [facility] Comment on above: Performed By: #### L ACTIC, CMP, CBC #### [place] [address] [place] Microcytosis Slight Normal [facility] Comment on above: Performed By: #### L ACTIC, CMP, CBC #### [facility] [address] Monocytes (Bld) [#/Vol] 0.8 10*3/uL Normal 0.0-0.8 [facility] Comment on above: Performed By: #### L ACTIC, CMP, CBC #### [address] Monocytes/100 WBC (Bld) 11.9 % Normal . [facility] Comment on above: Performed By: #### L ACTIC, CMP, CBC #### [address] Neutrophils (Bld) [#/Vol] 5.2 10*3/uL Normal 1.8-7.7 [facility] Comment on above: Performed By: #### L ACTIC, CMP, CBC #### [address] Neutrophils/100 WBC (Bld) 73.2 % Normal . [facility] Comment on above: Performed By: #### L ACTIC, CMP, CBC #### [place] [address] [place] NRBC% 0.2 /100{WBC} Normal 0-0.5 [facility] Comment on above: Performed By: #### L ACTIC, CMP, CBC #### [place] [address] [place] Ovalocytes Slight Normal [facility] Comment on above: Performed By: #### L ACTIC, CMP, CBC #### [address] Platelet Estimate Normal Normal Normal [facility] Comment on above: Performed By: #### L ACTIC, CMP, CBC #### [address] [place] [address] [place] Platelet mean volume (Bld) [Entitic vol] 6.9 fL Normal 6.3-10.7 [facility] Comment on above: Performed By: #### L ACTIC, CMP, CBC #### [address] Platelets (Bld) [#/Vol] 390 10*3/uL Normal 150-450 [facility] Comment on above: Performed By: #### L ACTIC, CMP, CBC #### [address] Poikilocytosis Slight Normal [facility] Comment on above: Performed By: #### L ACTIC, CMP, CBC #### [address] Polychromasia Slight Normal [facility] Comment on above: Performed By: #### L ACTIC, CMP, CBC #### [address] RBC (Bld) [#/Vol] 4.11 10*6/uL Normal 3.60-5.00 [facility] Comment on above: Performed By: #### L ACTIC, CMP, CBC #### [address] WBC (Bld) [#/Vol] 7.1 10*3/uL Normal 3.8-11.6 [facility] Comment on above: Performed By: #### L ACTIC, CMP, CBC #### [address] Serum or plasma trough vanco mycin levelOrdered By: Neeraj Farrell on 04-13-2023 Vancomycin trough [Mass/Vol] 16.7 ug/mL 10.0-20.0 [facility] Comment on above: Last dose: - Vancomycin [Mass/volume] in Serum or Plasma --peakOrdered By: Neeraj Farrell on 04-13-2023 Vancomycin peak [Mass/Vol] 32.0 ug/mL 20.0-40.0 [facility] Comment on above: Last dose: - Vancomycin,Peakon 04-13-2023 Vancomycin,Peak 32.0 ug/mL Normal 20.0-40.0 [facility] Comment on above: Order Comment: Comme nt ?DRAW 1 HOUR AFTER INFUSION COMPLETES Date of last dose?: 20230412 Time of last dose?: 2329 Result Comment: Last dose: - PERFORMED BY: [place] [address] PATHOLOGIST [employer] ACE M.D. Performed By: #### C UBLD, CMP, CBC #### [facility] [address] Basic Metabolic Panelon 11 Anion gap [Moles/Vol] 12.9 mmol/L Normal 6.0-15.0 [facility] Comment on above: Performed By: #### C UBLD, CMP, CBC #### [facility] [address] Calcium [Mass/Vol] 8.9 mg/dL Normal 8.6-10.3 [facility] Comment on above: Performed By: #### C UBLD, CMP, CBC #### [facility] [address] [place] [address] [place] Chloride [Moles/Vol] 100 mmol/L Normal 98-107 [facility] Comment on above: Performed By: #### C UBLD, CMP, CBC #### [facility] [address] CO2 [Moles/Vol] 19.0 mmol/L Low 21.0-31.0 [facility] Comment on above: Performed By: #### C UBLD, CMP, CBC #### [facility] [address] [place] [address] [place] Creatinine [Mass/Vol] 1.13 mg/dL Normal 0.60-1.20 [facility] Comment on above: Performed By: #### C UBLD, CMP, CBC #### [facility] [address] [place] [address] [place] Creatinine Clr Calc Pharmacy 65.44 Normal [facility] Comment on above: Result Comment: PERF ORMED BY: [place] [address] PATHOLOGIST [employer] ACE M.D. Performed By: #### C UBLD, CMP, CBC #### [place] [address] [place] GFR/1.73 sq M.predicted MDRD (S/P/Bld) [Vol rate/Area] 53.657 mL/min/{1.73_m2} [facility] Comment on above: Performed By: #### C UBLD, CMP, CBC #### [address] Glucose [Mass/Vol] 119 mg/dL High 70-100 [facility] Comment on above: Result Comment: [place] Glucose Reference Range is dependent on time and content of last meal. Glucose of more than 200 mg/dL in a nonstressed, ambulatory subject supports the diagnosis of Diabetes Mellitus. ADA recommended reference range Performed By: #### C UBLD, CMP, CBC #### [address] Potassium [Moles/Vol] 3.9 mmol/L Normal 3.5-5.1 [facility] Comment on above: Performed By: #### C UBLD, CMP, CBC #### [place] [address] [place] Sodium [Moles/Vol] 128 mmol/L Low 136-145 [facility] Comment on above: Performed By: #### C UBLD, CMP, CBC #### [facility] [address] [place] [address] [place] Urea nitrogen [Mass/Vol] 43 mg/dL High 7-25 [facility] Comment on above: Performed By: #### C UBLD, CMP, CBC #### [address] Complete Blood Count Auto Di ffon 04-12-2023 Basophils (Bld) [#/Vol] 0.0 10*3/uL Normal 0.0-0.2 [facility] Comment on above: Result Comment: PERF ORMED BY: [place] [address] PATHOLOGIST [employer] ACE M.D. Performed By: #### C UBLD, CMP, CBC #### [address] Basophils/100 WBC (Bld) 0.5 % Normal . [facility] Comment on above: Performed By: #### C UBLD, CMP, CBC #### [address] Eosinophils (Bld) [#/Vol] 0.1 10*3/uL Normal 0.0-0.45 [facility] Comment on above: Performed By: #### C UBLD, CMP, CBC #### [address] Eosinophils/100 WBC (Bld) 1.6 % Normal . [facility] Comment on above: Performed By: #### C UBLD, CMP, CBC #### [address] Erythrocyte distribution width (RBC) [Ratio] 16.9 % High 11.9-15.3 [facility] Comment on above: Performed By: #### C UBLD, CMP, CBC #### [address] Hematocrit (Bld) [Volume fraction] 31.7 % Low 34.0-46.4 [facility] Comment on above: Performed By: #### C UBLD, CMP, CBC #### [place] [address] [place] Hemoglobin (Bld) [Mass/Vol] 10.3 g/dL Low 11.8-15.4 [facility] Comment on above: Performed By: #### C UBLD, CMP, CBC #### [address] Lymphocytes (Bld) [#/Vol] 0.6 10*3/uL Low 1.00-4.8 [facility] Comment on above: Performed By: #### C UBLD, CMP, CBC #### [facility] [address] Lymphocytes/100 WBC (Bld) 8.2 % Normal . [facility] Comment on above: Performed By: #### C UBLD, CMP, CBC #### [facility] [address] MCH (RBC) [Entitic mass] 26.2 pg Normal 24.7-34.3 [facility] Comment on above: Performed By: #### C UBLD, CMP, CBC #### [address] MCV (RBC) [Entitic vol] 80.7 fL Normal 80-100 [facility] Comment on above: Performed By: #### C UBLD, CMP, CBC #### [address] Mean Corpuscular HGB Conc 32.5 g/dL Normal 32.0-35.0 [facility] Comment on above: Performed By: #### C UBLD, CMP, CBC #### [place] [address] [place] Monocytes (Bld) [#/Vol] 1.0 10*3/uL High 0.0-0.8 [facility] Comment on above: Performed By: #### C UBLD, CMP, CBC #### [place] [address] [place] Monocytes/100 WBC (Bld) 13.4 % Normal . [facility] Comment on above: Performed By: #### C UBLD, CMP, CBC #### [place] [address] [place] Neutrophils (Bld) [#/Vol] 5.6 10*3/uL Normal 1.8-7.7 [facility] Comment on above: Performed By: #### C UBLD, CMP, CBC #### [address] Neutrophils/100 WBC (Bld) 76.3 % Normal . [facility] Comment on above: Performed By: #### C UBLD, CMP, CBC #### [address] NRBC% 0.3 /100{WBC} Normal 0-0.5 [facility] Comment on above: Performed By: #### C UBLD, CMP, CBC #### [address] Platelet mean volume (Bld) [Entitic vol] 7.2 fL Normal 6.3-10.7 [facility] Comment on above: Performed By: #### C UBLD, CMP, CBC #### [address] Platelets (Bld) [#/Vol] 363 10*3/uL Normal 150-450 [facility] Comment on above: Performed By: #### C UBLD, CMP, CBC #### [address] RBC (Bld) [#/Vol] 3.93 10*6/uL Normal 3.60-5.00 [facility] Comment on above: Performed By: #### C UBLD, CMP, CBC #### [address] WBC (Bld) [#/Vol] 7.3 10*3/uL Normal 3.8-11.6 [facility] Comment on above: Performed By: #### C UBLD, CMP, CBC #### [address] Arterial Blood Gason 023 ABG Base Excess -15.4 mmol/L Low -3.0-3.[address] [facility] Comment on above: Performed By: #### C UBLD, CMP, CBC #### [address] ABG Frac Inspired O2 44 % Normal [facility] Comment on above: Performed By: #### C UBLD, CMP, CBC #### [address] [place] [address] [place] ABG Liter Flow 6 Normal [facility] Comment on above: Performed By: #### C UBLD, CMP, CBC #### [address] ABG Oxygen Content 7.8 mmol/L Normal 6.6-9.7 [facility] Comment on above: Performed By: #### C UBLD, CMP, CBC #### [address] ABG Oxygen Saturation 97.6 % Normal 95.0-100.0 [facility] Comment on above: Performed By: #### C UBLD, CMP, CBC #### [address] ABG PCO2 52.5 mm[Hg] Off scale high 35.0-45.0 [facility] Comment on above: Performed By: #### C UBLD, CMP, CBC #### [address] ABG PH 7.07 Off scale low 7.35-7.45 [facility] Comment on above: Performed By: #### C UBLD, CMP, CBC #### [address] ABG PO2 105.6 mm[Hg] High 80.0-100.0 [facility] Comment on above: Performed By: #### C UBLD, CMP, CBC #### [address] CO2 [Moles/Vol] 16.3 mmol/L Low 23.0-27.0 [facility] Comment on above: Performed By: #### C UBLD, CMP, CBC #### [address] HCO3 (Bld) [Moles/Vol] 14.7 mmol/L Low 23.0-29.0 [facility] Comment on above: Performed By: #### C UBLD, CMP, CBC #### [address] Respiratory Critical Normal [facility] Comment on above: Result Comment: Crit ical Value called on: 04/11/2023 at 08:56 PERFORMED BY: [place] [address] PATHOLOGIST [employer]WORK[employer] IAN ACE M.D. Performed By: #### C UBLD, CMP, CBC #### [facility] [address] [place] [address] VBG Draw Site Right Radial Normal [facility] Comment on above: Performed By: #### C UBLD, CMP, CBC #### [address] B-Type Natriuretic Peptideon 04-11-2023 Natriuretic peptide B (Bld) [Mass/Vol] 181.0 pg/mL High 5-100 [facility] Comment on above: Result Comment: PERF ORMED BY: [place] [address] PATHOLOGIST [employer] ACE M.D. Performed By: #### C UBLD, CMP, CBC #### [address] Bacterial blood cultureOrder ed By: Laith Monte on 04-11-2023 Bacteria identified Cx Nom (Bld) NO GROWTH 5 DAYS [facility] Blood Cultureon 04-11-2023 Bacteria identified Cx Nom (Bld) NO GROWTH 5 DAYS PERFORMED BY: [place] [address] PATHOLOGIST [employer]AN ACE M.D. [facility] Comment on above: Performed By: #### C UBLD, CMP, CBC #### [facility] [address] [place] [address] Bacteria identified Cx Nom (Bld) NO GROWTH 5 DAYS PERFORMED BY: [place] [address] PATHOLOGIST [employer]ARM[employer]ER [employer]AN ACE M.D. [facility] Comment on above: Performed By: #### C UBLD, CMP, CBC #### [address] Complete Blood Count Auto Di ffon 04-11-2023 Basophils (Bld) [#/Vol] 0.1 10*3/uL Normal 0.0-0.2 [facility] Comment on above: Result Comment: PERF ORMED BY: [place] [address] PATHOLOGIST [employer] ACE M.D. Performed By: #### C UBLD, CMP, CBC #### [address] Basophils/100 WBC (Bld) 0.6 % Normal . [facility] Comment on above: Performed By: #### C UBLD, CMP, CBC #### [address] Eosinophils (Bld) [#/Vol] 0.0 10*3/uL Normal 0.0-0.45 [facility] Comment on above: Performed By: #### C UBLD, CMP, CBC #### [address] Eosinophils/100 WBC (Bld) 0.1 % Normal . [facility] Comment on above: Performed By: #### C UBLD, CMP, CBC #### [address] Erythrocyte distribution width (RBC) [Ratio] 17.2 % High 11.9-15.3 [facility] Comment on above: Performed By: #### C UBLD, CMP, CBC #### [address] Hematocrit (Bld) [Volume fraction] 37.9 % Normal 34.0-46.4 [facility] Comment on above: Performed By: #### C UBLD, CMP, CBC #### [address] Hemoglobin (Bld) [Mass/Vol] 11.8 g/dL Normal 11.8-15.4 [facility] Comment on above: Performed By: #### C UBLD, CMP, CBC #### [facility] [address] Lymphocytes (Bld) [#/Vol] 0.3 10*3/uL Low 1.00-4.8 [facility] Comment on above: Performed By: #### C UBLD, CMP, CBC #### [address] Lymphocytes/100 WBC (Bld) 1.8 % Normal . [facility] Comment on above: Performed By: #### C UBLD, CMP, CBC #### [address] MCH (RBC) [Entitic mass] 25.9 pg Normal 24.7-34.3 [facility] Comment on above: Performed By: #### C UBLD, CMP, CBC #### [address] MCV (RBC) [Entitic vol] 82.9 fL Normal 80-100 [facility] Comment on above: Performed By: #### C UBLD, CMP, CBC #### [address] Mean Corpuscular HGB Conc 31.2 g/dL Low 32.0-35.0 [facility] Comment on above: Performed By: #### C UBLD, CMP, CBC #### [address] Monocytes (Bld) [#/Vol] 1.0 10*3/uL High 0.0-0.8 [facility] Comment on above: Performed By: #### C UBLD, CMP, CBC #### [place] [address] [place] Monocytes/100 WBC (Bld) 6.9 % Normal . [facility] Comment on above: Performed By: #### C UBLD, CMP, CBC #### [address] Neutrophils (Bld) [#/Vol] 13.7 10*3/uL High 1.8-7.7 [facility] Comment on above: Performed By: #### C UBLD, CMP, CBC #### [address] Neutrophils/100 WBC (Bld) 90.6 % Normal . [facility] Comment on above: Performed By: #### C UBLD, CMP, CBC #### [address] NRBC% 0.2 /100{WBC} Normal 0-0.5 [facility] Comment on above: Performed By: #### C UBLD, CMP, CBC #### [address] Platelet mean volume (Bld) [Entitic vol] 6.9 fL Normal 6.3-10.7 [facility] Comment on above: Performed By: #### C UBLD, CMP, CBC #### [address] Platelets (Bld) [#/Vol] 443 10*3/uL Normal 150-450 [facility] Comment on above: Performed By: #### C UBLD, CMP, CBC #### [address] RBC (Bld) [#/Vol] 4.56 10*6/uL Normal 3.60-5.00 [facility] Comment on above: Performed By: #### C UBLD, CMP, CBC #### [address] WBC (Bld) [#/Vol] 15.1 10*3/uL High 3.8-11.6 [facility] Comment on above: Performed By: #### C UBLD, CMP, CBC #### [address] Basophils (Bld) [#/Vol] 0.0 10*3/uL Normal 0.0-0.2 [facility] Comment on above: Result Comment: PERF ORMED BY: [place] [address] PATHOLOGIST F[employer]WORKER [employer]AN ACE M.D. Performed By: #### C UBLD, CMP, CBC #### [address] Basophils/100 WBC (Bld) 0.2 % Normal . [facility] Comment on above: Performed By: #### C UBLD, CMP, CBC #### [address] Eosinophils (Bld) [#/Vol] 0.1 10*3/uL Normal 0.0-0.45 [facility] Comment on above: Performed By: #### C UBLD, CMP, CBC #### [address] Eosinophils/100 WBC (Bld) 0.7 % Normal . [facility] Comment on above: Performed By: #### C UBLD, CMP, CBC #### [address] Erythrocyte distribution width (RBC) [Ratio] 17.0 % High 11.9-15.3 [facility] Comment on above: Performed By: #### C UBLD, CMP, CBC #### [address] Hematocrit (Bld) [Volume fraction] 39.3 % Normal 34.0-46.4 [facility] Comment on above: Performed By: #### C UBLD, CMP, CBC #### [address] Hemoglobin (Bld) [Mass/Vol] 12.2 g/dL Normal 11.8-15.4 [facility] Comment on above: Performed By: #### C UBLD, CMP, CBC #### [address] Lymphocytes (Bld) [#/Vol] 1.0 10*3/uL Normal 1.00-4.8 [facility] Comment on above: Performed By: #### C UBLD, CMP, CBC #### [facility] [address] Lymphocytes/100 WBC (Bld) 6.0 % Normal . [facility] Comment on above: Performed By: #### C UBLD, CMP, CBC #### [facility] [address] MCH (RBC) [Entitic mass] 25.7 pg Normal 24.7-34.3 [facility] Comment on above: Performed By: #### C UBLD, CMP, CBC #### [address] MCV (RBC) [Entitic vol] 83.1 fL Normal 80-100 [facility] Comment on above: Performed By: #### C UBLD, CMP, CBC #### [address] Mean Corpuscular HGB Conc 30.9 g/dL Low 32.0-35.0 [facility] Comment on above: Performed By: #### C UBLD, CMP, CBC #### [address] Monocytes (Bld) [#/Vol] 1.4 10*3/uL High 0.0-0.8 [facility] Comment on above: Performed By: #### C UBLD, CMP, CBC #### [address] Monocytes/100 WBC (Bld) 7.8 % Normal . [facility] Comment on above: Performed By: #### C UBLD, CMP, CBC #### [place] [address] [place] Neutrophils (Bld) [#/Vol] 14.8 10*3/uL High 1.8-7.7 [facility] Comment on above: Performed By: #### C UBLD, CMP, CBC #### [address] Neutrophils/100 WBC (Bld) 85.3 % Normal . [facility] Comment on above: Performed By: #### C UBLD, CMP, CBC #### [address] NRBC% 0.1 /100{WBC} Normal 0-0.5 [facility] Comment on above: Performed By: #### C UBLD, CMP, CBC #### [address] Platelet mean volume (Bld) [Entitic vol] 7.2 fL Normal 6.3-10.7 [facility] Comment on above: Performed By: #### C UBLD, CMP, CBC #### [address] Platelets (Bld) [#/Vol] 488 10*3/uL High 150-450 [facility] Comment on above: Performed By: #### C UBLD, CMP, CBC #### [address] RBC (Bld) [#/Vol] 4.73 10*6/uL Normal 3.60-5.00 [facility] Comment on above: Performed By: #### C UBLD, CMP, CBC #### [address] WBC (Bld) [#/Vol] 17.4 10*3/uL High 3.8-11.6 [facility] Comment on above: Performed By: #### C UBLD, CMP, CBC #### [address] Comprehensive Metabolic Pane jeremy 04-11-2023 Albumin [Mass/Vol] 3.5 g/dL Normal 3.5-5.7 [facility] Comment on above: Performed By: #### C UBLD, CMP, CBC #### [address] Albumin/Globulin [Mass ratio] 0.9 {ratio} Normal [facility] Comment on above: Performed By: #### C UBLD, CMP, CBC #### [address] ALP [Catalytic activity/Vol] 96 U/L Normal 34-104 [facility] Comment on above: Performed By: #### C UBLD, CMP, CBC #### [facility] [address] ALT [Catalytic activity/Vol] 117 U/L High 7-52 [facility] Comment on above: Performed By: #### C UBLD, CMP, CBC #### [facility] [address] Anion gap [Moles/Vol] 12.4 mmol/L Normal 6.0-15.0 [facility] Comment on above: Performed By: #### C UBLD, CMP, CBC #### [facility] [address] AST [Catalytic activity/Vol] 96 U/L High 13-39 [facility] Comment on above: Performed By: #### C UBLD, CMP, CBC #### [address] Bilirubin [Mass/Vol] 0.3 mg/dL Normal 0.3-1.0 [facility] Comment on above: Performed By: #### C UBLD, CMP, CBC #### [address] Calcium [Mass/Vol] 9.6 mg/dL Normal 8.6-10.3 [facility] Comment on above: Performed By: #### C UBLD, CMP, CBC #### [address] Chloride [Moles/Vol] 102 mmol/L Normal 98-107 [facility] Comment on above: Performed By: #### C UBLD, CMP, CBC #### [facility] [address] [place] [address] CO2 [Moles/Vol] 16.8 mmol/L Low 21.0-31.0 [facility] Comment on above: Performed By: #### C UBLD, CMP, CBC #### [facility] [address] [place] [address] [place] Creatinine [Mass/Vol] 1.43 mg/dL High 0.60-1.20 [facility] Comment on above: Performed By: #### C UBLD, CMP, CBC #### [facility] [address] Creatinine Clr Calc Pharmacy 51.71 Normal [facility] Comment on above: Result Comment: PERF ORMED BY: [place] [address] PATHOLOGIST [employer]AN ACE M.D. Performed By: #### C UBLD, CMP, CBC #### [facility] [address] GFR/1.73 sq M.predicted MDRD (S/P/Bld) [Vol rate/Area] 40.450 mL/min/{1.73_m2} [facility] Comment on above: Performed By: #### C UBLD, CMP, CBC #### [facility] [address] Globulin (S) [Mass/Vol] 3.8 g/dL Normal [facility] Comment on above: Performed By: #### C UBLD, CMP, CBC #### [address] Glucose [Mass/Vol] 143 mg/dL High 70-100 [facility] Comment on above: Result Comment: [place] Glucose Reference Range is dependent on time and content of last meal. Glucose of more than 200 mg/dL in a nonstressed, ambulatory subject supports the diagnosis of Diabetes Mellitus. ADA recommended reference range Performed By: #### C UBLD, CMP, CBC #### [facility] [address] Potassium [Moles/Vol] 4.2 mmol/L Normal 3.5-5.1 [facility] Comment on above: Performed By: #### C UBLD, CMP, CBC #### [facility] [address] Protein [Mass/Vol] 7.3 g/dL Normal 6.4-8.9 [facility] Comment on above: Performed By: #### C UBLD, CMP, CBC #### [facility] [address] [place] [address] [place] Sodium [Moles/Vol] 127 mmol/L Low 136-145 [facility] Comment on above: Performed By: #### C UBLD, CMP, CBC #### [facility] [address] Urea nitrogen [Mass/Vol] 47 mg/dL High 7-25 [facility] Comment on above: Performed By: #### C UBLD, CMP, CBC #### [facility] [address] Albumin [Mass/Vol] 3.6 g/dL Normal 3.5-5.7 [facility] Comment on above: Performed By: #### C UBLD, CMP, CBC #### [facility] [address] Albumin/Globulin [Mass ratio] 0.9 {ratio} Normal [facility] Comment on above: Performed By: #### C UBLD, CMP, CBC #### [facility] [address] ALP [Catalytic activity/Vol] 95 U/L Normal 34-104 [facility] Comment on above: Performed By: #### C UBLD, CMP, CBC #### [facility] [address] [place] [id number] [place] ALT [Catalytic activity/Vol] 108 U/L High 7-52 [facility] Comment on above: Performed By: #### C UBLD, CMP, CBC #### [facility] [address] [place] [id number] [place] Anion gap [Moles/Vol] 13.8 mmol/L Normal 6.0-15.0 [facility] Comment on above: Performed By: #### C UBLD, CMP, CBC #### [facility] [address] [place] [id number] [facility] AST [Catalytic activity/Vol] 87 U/L High 13-39 [facility] Comment on above: Performed By: #### C UBLD, CMP, CBC #### [facility] [address] Bilirubin [Mass/Vol] 0.3 mg/dL Normal 0.3-1.0 [facility] Comment on above: Performed By: #### C UBLD, CMP, CBC #### [facility] [address] Calcium [Mass/Vol] 9.5 mg/dL Normal 8.6-10.3 [facility] Comment on above: Performed By: #### C UBLD, CMP, CBC #### [facility] [address] Chloride [Moles/Vol] 102 mmol/L Normal 98-107 [facility] Comment on above: Performed By: #### C UBLD, CMP, CBC #### [facility] [address] CO2 [Moles/Vol] 15.4 mmol/L Low 21.0-31.0 [facility] Comment on above: Performed By: #### C UBLD, CMP, CBC #### [facility] [address] [place] [address] [place] Creatinine [Mass/Vol] 1.23 mg/dL High 0.60-1.20 [facility] Comment on above: Performed By: #### C UBLD, CMP, CBC #### [facility] [address] [place] [address] [place] Creatinine Clr Calc Pharmacy 60.12 [facility] Comment on above: Result Comment: PERF ORMED BY: [place] [address] PATHOLOGIST [employer] ACE M.D. Performed By: #### C UBLD, CMP, CBC #### [place] [address] [place] GFR/1.73 sq M.predicted MDRD (S/P/Bld) [Vol rate/Area] 48.466 mL/min/{1.73_m2} [facility] Comment on above: Performed By: #### C UBLD, CMP, CBC #### [facility] [address] Globulin (S) [Mass/Vol] 3.8 g/dL Normal [facility] Comment on above: Performed By: #### C UBPREMA, CMP, CBC #### [facility] [address] Glucose [Mass/Vol] 143 mg/dL High 70-100 [facility] Comment on above: Result Comment: [place] Glucose Reference Range is dependent on time and content of last meal. Glucose of more than 200 mg/dL in a nonstressed, ambulatory subject supports the diagnosis of Diabetes Mellitus. ADA recommended reference range Performed By: #### C GIORGI CMP, CBC #### [address] Potassium [Moles/Vol] 4.2 mmol/L Normal 3.5-5.1 [facility] Comment on above: Performed By: #### C UBPREMA CMP, CBC #### [facility] [address] Protein [Mass/Vol] 7.4 g/dL Normal 6.4-8.9 [facility] Comment on above: Performed By: #### C UBPREMA CMP, CBC #### [place] [address] [place] Sodium [Moles/Vol] 127 mmol/L Low 136-145 [facility] Comment on above: Performed By: #### C UBPREMA CMP, CBC #### [facility] [address] [place] [address] [place] Urea nitrogen [Mass/Vol] 46 mg/dL High 7-25 [facility] Comment on above: Performed By: #### C UBPREMA, CMP, CBC #### [place] [address] [place] Creatine Kinaseon 04-11-2023 CK [Catalytic activity/Vol] 122 U/L Normal 30-223 [facility] Comment on above: Performed By: #### L ACTIC CMP, CBC #### [facility] [address] [place] [id number] [facility] Creatine kinase [Enzymatic a ctivity/volume] in Serum or PlasmaOrdered By: Laith Monte on 04-11-2023 CK [Catalytic activity/Vol] 122 U/L 30-223 [facility] ECG 12 lead ECGon 04-11-2023 ECG 12 lead ECG [facility] [address] [place] [address] Electrocardiograph Report Signed Patient: [place] Cesar MR#: [id number] : 1955 Acct:[id number] Age/Sex: 67 / F ADM Date: 04/10/23 Loc: Room: [address] [place] [address] Type: ADM IN Attending Dr: Malorie Nathan [...] previous ECGs available Confirmed by [facility]ONNIE MORENO [id number] on 04/12/2023 9:24:12 AM Referred By: Electronically Signed By:LUISA HANKINS MD [facility] Transcribed By: MUS Signed By Luisa Hankins MD, [facility] 04/12/23 09 [facility] Glucose Glucometer (BldC) [M ass/Vol]Ordered By: Malorie Nathan on 04-11-2023 Glucose [Mass/Vol] 149 mg/dL [facility] Comment on above: Random Glucose Refer ence Range is dependent on time and content of last meal. Glucose of more than 200 mg/dL in a nonstressed, ambulatory subject supports the diagnosis of Diabetes Mellitus. Glucose Poct Glucometerson 1 06-11-2022 Glucose [Mass/Vol] 149 mg/dL [facility] Comment on above: Result Comment: [place] Glucose Reference Range is dependent on time and content of last meal. Glucose of more than 200 mg/dL in a nonstressed, ambulatory subject supports the diagnosis of Diabetes Mellitus. PERFORMED BY: [place] [address] PATHOLOGIST [employer] ACE M.D. Performed By: #### G LULS #### Point of Care testing , Laboratory - Chemistry and C hemistry - challengeOrdered By: Malorie Nathan on 04-11-2023 CO2 [Moles/Vol] 16.3 mmol/L 23.0-27.0 [facility] HCO3 (Bld) [Moles/Vol] 14.7 mmol/L 23.0-29.0 [facility] Lactate [Moles/volume] in Se rum or PlasmaOrdered By: Laith Monte on 04-11-2023 Lactate [Moles/Vol] 1.3 mmol/L 0.5-2.2 [facility] Lactic Acidon 04-11-2023 Lactate [Moles/Vol] 1.3 mmol/L Normal 0.5-2.2 [facility] Comment on above: Result Comment: PERF ORMED BY: [place] [address] PATHOLOGIST [employer] ACE M.D. Performed By: #### C UBLD, CMP, CBC #### [facility] [address] [place] [address] Natriuretic peptide B [Mass/ Vol]Ordered By: Laith Monte on 04-11-2023 Natriuretic peptide B (Bld) [Mass/Vol] 181.0 pg/mL 5-100 [facility] No Panel InformationOrdered By: Malorie Nathan on 04-11-2023 Arterial Blood Base Excess -15.4 mmol/L -3.0-3.0 [facility] Arterial Blood Oxygen Content 7.8 mmol/L 6.6-9.7 [facility] Arterial Blood Oxygen Saturation 97.6 % 95.0-100.0 [facility] Arterial Blood Partial Pressure CO2 52.5 mm[Hg] 35.0-45.0 [facility] Arterial Blood Partial Pressure O2 105.6 mm[Hg] 80.0-100.0 [facility] Arterial Blood pH 7.07 7.35-7.[address] [facility] Blood Gas Critical Value See comment [facility] Comment on above: Critical Value kim d on: 04/11/2023 at 08:56 Blood Gas Liter Flow 6 L/min [facility] Blood Gas Sample Site Right radial F [facility] FiO2 44 % [facility] Troponin I High Sensitivityo n 04-11-2023 Troponin I High Sensitivity 33.9 pg/mL High 0.0-15.0 [facility] Comment on above: Result Comment: PERF ORMED BY: [place] [address] PATHOLOGIST [employer] ACE M.D. Performed By: #### L ACTIC, CMP, CBC #### [address] Troponin I.cardiac [Mass/vol ume] in Serum or Plasma by Detection limit <= 0.01 ng/Ordered By: Laith Monte on 04-11-2023 Troponin I.cardiac DL <= 0.01 ng/mL [Mass/Vol] 33.9 pg/mL 0.0-15.0 [facility] XR chest 1V portableon 04-11 XR chest 1V portable [facility] [address] [place] [address] XRay Report Signed Patient: [place] Cesar MR#: [id number] : 1955 Acct:[id number] Age/Sex: 67 / F ADM Date: 04/10/23 Loc: Room: [address] [place] [address] Type: ADM IN Attending Dr: Malorie Nathan [...] Crispin Sullivan M.D.04/11/2023 9:10 AM Dictation Location: [place] [address] Transcribed By: MARIA VICTORIA 04/11/23909 Dictated By: Crispin Sullivan II, MD 04/11/23907 Signed By: 04/11/23909 Normal [facility] Alanine aminotransferase [En zymatic activity/volume] in Serum or PlasmaOrdered By: Sarah Davey on 04-10-2023 ALT [Catalytic activity/Vol] 91 U/L 7-52 [facility] Albumin [Mass/volume] in Ser um or Plasma by Bromocresol green (BCG) dye binding methoOrdered By: Sarah Davey on 04-10-2023 Albumin BCG dye [Mass/Vol] 3.7 g/dL 3.5-5.7 [facility] Alkaline phosphatase [Enzyma tic activity/volume] in Serum or PlasmaOrdered By: Sarah Davey on 04-10-2023 ALP [Catalytic activity/Vol] 92 U/L 34-104 [facility] Aspartate aminotransferase [ Enzymatic activity/volume] in Serum or PlasmaOrdered By: Sarah Davey on 04-10-2023 AST [Catalytic activity/Vol] 74 U/L 13-39 [facility] Automated erythrocytes count in urine sediment (number/area)Ordered By: Sarah Davey on 04-10-2023 RBC Auto (Urine sed) [#/Area] 1-2 [HPF] 0-4 [facility] Automated leukocytes count i n urine sediment (number/area)Ordered By: Sarah Davey on 04-10-2023 WBC Auto (Urine sed) [#/Area] 10-19 [HPF] 0-4 [facility] Basic Metabolic Panelon 11-0 Anion gap [Moles/Vol] 14.6 mmol/L Normal 6.0-15.0 [facility] Comment on above: Performed By: #### C UBLD, CMP, CBC #### [facility] [address] Calcium [Mass/Vol] 9.5 mg/dL Normal 8.6-10.3 [facility] Comment on above: Performed By: #### C UBLD, CMP, CBC #### [facility] [address] Chloride [Moles/Vol] 102 mmol/L Normal 98-107 [facility] Comment on above: Performed By: #### C UBLD, CMP, CBC #### [facility] [address] CO2 [Moles/Vol] 14.3 mmol/L Low 21.0-31.0 [facility] Comment on above: Performed By: #### C UBLD, CMP, CBC #### [facility] [address] [place] [address] [place] Creatinine [Mass/Vol] 1.16 mg/dL Normal 0.60-1.20 [facility] Comment on above: Performed By: #### C UBLD, CMP, CBC #### [facility] [address] [place] [address] [place] Creatinine Clr [facility] 63[facility]71 [facility] [facility] Comment on above: Result Comment: PERF ORMED BY: [place] [address] PATHOLOGIST FARMWORKER FRUIT IAN ACE M.D. Performed By: #### C UBLD, CMP, CBC #### [place] [address] [place] GFR/1.73 sq M.predicted MDRD (S/P/Bld) [Vol rate/Area] 51.997 mL/min/{1.73_m2} [facility] Comment on above: Performed By: #### C UBLD, CMP, CBC #### [facility] [address] Glucose [Mass/Vol] 142 mg/dL High 70-100 [facility] Comment on above: Result Comment: [facility] Glucose Reference Range is dependent on time and content of last meal. Glucose of more than 200 mg/dL in a nonstressed, ambulatory subject supports the diagnosis of Diabetes Mellitus. ADA recommended reference range Performed By: #### C UBLD, CMP, CBC #### [facility] [address] Potassium [Moles/Vol] 3.9 mmol/L Normal 3.5-5.1 [facility] Comment on above: Performed By: #### C UBLD, CMP, CBC #### [facility] [address] Sodium [Moles/Vol] 127 mmol/L Low 136-145 [facility] Comment on above: Performed By: #### C UBLD, CMP, CBC #### [facility] [address] Urea nitrogen [Mass/Vol] 45 mg/dL High 7-25 [facility] Comment on above: Performed By: #### C UBLD, CMP, CBC #### [facility] [address] Basophils Auto (Bld) [#/Vol] Ordered By: Sarah Davey on 04-10-2023 Basophils (Bld) [#/Vol] 0.1 10*3/uL 0.0-0.2 [facility] Basophils/100 WBC Auto (Bld) Ordered By: Sarah Schwarzimmundo on 04-10-2023 Basophils/100 WBC (Bld) 0.5 % . [facility] Bilirubin Test strip Ql (U)O rdered By: Sarah Davey on 04-10-2023 Bilirubin Ql (U) Negative Negative [facility] Bilirubin.total [Mass/volume ] in Serum or PlasmaOrdered By: Sarah Davey on 04-10-2023 Bilirubin [Mass/Vol] 0.4 mg/dL 0.3-1.0 [facility] Blood Cultureon 04-10-2023 Bacteria identified Cx Nom (Bld) NO GROWTH 5 DAYS PERFORMED BY: [address] [place] [address] PATHOLOGIST FARMWORKER FR[employer]AN ACE M.D. Normal [facility] Comment on above: Performed By: #### G LULS #### Point of Care testing , C reactive protein [Mass/vol ume] in Serum or PlasmaOrdered By: Sarah Davey on 04-10-2023 CRP [Mass/Vol] 16.1 mg/dL 0.0-0.5 [facility] C-Reactive Proteinon 023 C-Reactive Protein 16.1 mg/dL High 0.0-0.5 [facility] Comment on above: Result Comment: PERF ORMED BY: [address] [place] [address] PATHOLOGIST FARMWORKER [employer]AN ACE M.D. Performed By: #### G LULS #### Point of Care testing , Calcium [Mass/volume] in Ser um or PlasmaOrdered By: Sarah Bullimore on 04-10-2023 Calcium [Mass/Vol] 10.0 mg/dL 8.6-10.3 [facility] Carbon dioxide, total [Moles /volume] in Serum or PlasmaOrdered By: Sarah Bullimore on 04-10-2023 CO2 [Moles/Vol] 15.4 mmol/L 21.0-31.0 [facility] Chloride [Moles/volume] in S marivel or PlasmaOrdered By: Sarah Bullimore on 04-10-2023 Chloride [Moles/Vol] 102 mmol/L 98-107 [facility] Color Auto (U)Ordered By: Tiffany Davey on 04-10-2023 Color (U) Yellow Yellow [facility] Complete Blood Count Auto Di ffon 04-10-2023 Basophils (Bld) [#/Vol] 0.1 10*3/uL Normal 0.0-0.2 [facility] Comment on above: Performed By: #### G LULS #### Point of Care testing , Basophils/100 WBC (Bld) 0.5 % Normal . [facility] Comment on above: Performed By: #### G KYAWLS #### Point of Care testing , Eosinophils (Bld) [#/Vol] 0.1 10*3/uL Normal 0.0-0.45 [facility] Comment on above: Performed By: #### G DAIANA #### Point of Care testing , Eosinophils/100 WBC (Bld) 1.0 % Normal . [facility] Comment on above: Performed By: #### G DAIANA #### Point of Care testing , Erythrocyte distribution width (RBC) [Ratio] 16.8 % High 11.9-15.3 [facility] Comment on above: Performed By: #### G DAIANA #### Point of Care testing , Hematocrit (Bld) [Volume fraction] 39.4 % Normal 34.0-46.4 [facility] Comment on above: Performed By: #### G KYAWLS #### Point of Care testing , Hemoglobin (Bld) [Mass/Vol] 12.7 g/dL Normal 11.8-15.4 [facility] Comment on above: Performed By: #### G DAIANA #### Point of Care testing , Lymphocytes (Bld) [#/Vol] 0.4 10*3/uL Low 1.00-4.8 [facility] Comment on above: Performed By: #### G DAIANA #### Point of Care testing , Lymphocytes/100 WBC (Bld) 3.2 % Normal . [facility] Comment on above: Performed By: #### G DAIANA #### Point of Care testing , MCH (RBC) [Entitic mass] 26.3 pg Normal 24.7-34.3 [facility] Comment on above: Performed By: #### G KYAWLS #### Point of Care testing , MCV (RBC) [Entitic vol] 81.8 fL Normal 80-100 [facility] Comment on above: Performed By: #### G DAIANA #### Point of Care testing , Mean Corpuscular HGB Conc 32.1 g/dL Normal 32.0-35.0 [facility] Comment on above: Performed By: #### G DAIANA #### Point of Care testing , Monocytes (Bld) [#/Vol] 0.6 10*3/uL Normal 0.0-0.8 [facility] Comment on above: Performed By: #### Jodi AHMADI #### Point of Care testing , Monocytes/100 WBC (Bld) 17.56 % Normal 0.00-20.00 [facility] Comment on above: Performed By: #### Jodi AHMADI #### Point of Care testing , Monocytes/100 WBC (Bld) 5.0 % Normal . [facility] Comment on above: Performed By: #### Jodi AHMADI #### Point of Care testing , Neutrophils (Bld) [#/Vol] 11.7 10*3/uL High 1.8-7.7 [facility] Comment on above: Performed By: #### Jodi AHMADI #### Point of Care testing , Neutrophils/100 WBC (Bld) 90.3 % Normal . [facility] Comment on above: Performed By: #### Jodi AHMADI #### Point of Care testing , NRBC% 0.1 /100{WBC} Normal 0-0.5 [facility] Comment on above: Performed By: #### Jodi AHMADI #### Point of Care testing , Platelet mean volume (Bld) [Entitic vol] 7.5 fL Normal 6.3-10.7 [facility] Comment on above: Performed By: #### Jodi AHMADI #### Point of Care testing , Platelets (Bld) [#/Vol] 474 10*3/uL High 150-450 [facility] Comment on above: Performed By: #### Jodi AHMADI #### Point of Care testing , RBC (Bld) [#/Vol] 4.82 10*6/uL Normal 3.60-5.00 [facility] Comment on above: Performed By: #### Jodi AHMADI #### Point of Care testing , WBC (Bld) [#/Vol] 13.0 10*3/uL High 3.8-11.6 [facility] Comment on above: Performed By: #### G DAIANA #### Point of Care testing , Comprehensive Metabolic Pane jeremy 04-10-2023 Albumin [Mass/Vol] 3.7 g/dL Normal 3.5-5.7 [facility] Comment on above: Performed By: #### G KYAWLS #### Point of Care testing , Albumin/Globulin [Mass ratio] 0.8 {ratio} Normal [facility] Comment on above: Performed By: #### G KYAWLS #### Point of Care testing , ALP [Catalytic activity/Vol] 92 U/L Normal 34-104 [facility] Comment on above: Performed By: #### Jodi AHMADI #### Point of Care testing , ALT [Catalytic activity/Vol] 91 U/L High 7-52 [facility] Comment on above: Performed By: #### Jodi AHMADI #### Point of Care testing , Anion gap [Moles/Vol] 15.3 mmol/L High 6.0-15.0 [facility] Comment on above: Performed By: #### Jodi AHMADI #### Point of Care testing , AST [Catalytic activity/Vol] 74 U/L High 13-39 [facility] Comment on above: Performed By: #### Jodi AHMADI #### Point of Care testing , Bilirubin [Mass/Vol] 0.4 mg/dL Normal 0.3-1.0 [facility] Comment on above: Performed By: #### Jodi AHMADI #### Point of Care testing , Calcium [Mass/Vol] 10.0 mg/dL Normal 8.6-10.3 [facility] Comment on above: Performed By: #### Jodi AHMADI #### Point of Care testing , Chloride [Moles/Vol] 102 mmol/L Normal 98-107 [facility] Comment on above: Performed By: #### G DAIANA #### Point of Care testing , CO2 [Moles/Vol] 15.4 mmol/L Low 21.0-31.0 [facility] Comment on above: Performed By: #### Jodi AHMADI #### Point of Care testing , Creatinine [Mass/Vol] 1.21 mg/dL High 0.60-1.20 [facility] Comment on above: Performed By: #### G KYAWLS #### Point of Care testing , Creatinine Clr Calc Pharmacy 60.88 [facility] Comment on above: Performed By: #### G KYAWLS #### Point of Care testing , GFR/1.73 sq M.predicted MDRD (S/P/Bld) [Vol rate/Area] 49.429 mL/min/{1.73_m2} [facility] Comment on above: Performed By: #### G KYAWLS #### Point of Care testing , Globulin (S) [Mass/Vol] 4.5 g/dL [facility] Comment on above: Performed By: #### G KYAWLS #### Point of Care testing , Glucose [Mass/Vol] 109 mg/dL High 70-100 [facility] Comment on above: Result Comment: [facility] Glucose Reference Range is dependent on time and content of last meal. Glucose of more than 200 mg/dL in a nonstressed, ambulatory subject supports the diagnosis of Diabetes Mellitus. ADA recommended reference range Performed By: #### G KYAWLS #### Point of Care testing , Potassium [Moles/Vol] 3.7 mmol/L Normal 3.5-5.1 [facility] Comment on above: Performed By: #### G KYAWLS #### Point of Care testing , Protein [Mass/Vol] 8.2 g/dL Normal 6.4-8.9 [facility] Comment on above: Performed By: #### G KYAWLS #### Point of Care testing , Sodium [Moles/Vol] 129 mmol/L Low 136-145 [facility] Comment on above: Performed By: #### G KYAWLS #### Point of Care testing , Urea nitrogen [Mass/Vol] 43 mg/dL High 7-25 [facility] Comment on above: Performed By: #### G KYAWLS #### Point of Care testing , Creatinine [Mass/volume] in Serum or PlasmaOrdered By: Sarah Davey on 04-10-2023 Creatinine [Mass/Vol] 1.21 mg/dL 0.60-1.20 [facility] Creatinine [Mass/volume] in UrineOrdered By: Neeraj Farrell on 04-10-2023 Creatinine (U) [Mass/Vol] 131.0 mg/dL 11.0-20.0 [facility] Creatinine, Urine (Random)on 04-10-2023 Creatinine, Urine (Random) 131.0 mg/dL High 11.0-20.0 [facility] Comment on above: Result Comment: PERF ORMED BY: [place] [address] PATHOLOGIST FARMWORKER [employer]AN ACE M.D. Performed By: #### C UBLD, CMP, CBC #### [facility] [address] [place] [address] [place] Dipstick and Microscopicon 1 06-10-2022 Appearance (U) Clear Normal Clear [facility] Comment on above: Order Comment: Name Collection Type:: Clean-Voided Midstream Performed By: #### C UBLD, CMP, CBC #### [facility] [address] [place] [address] [place] Bacteria,Urine None Seen Normal None Seen [facility] Comment on above: Order Comment: Name Collection Type:: Clean-Voided Midstream Performed By: #### C UBLD, CMP, CBC #### [facility] [address] [place] [address] [place] Bilirubin,Urine Negative Normal Negative [facility] Comment on above: Order Comment: Name Collection Type:: Clean-Voided Midstream Performed By: #### C UBLD, CMP, CBC #### [facility] [address] [place] [id number] [place] Color (U) Yellow Normal Yellow [facility] Comment on above: Order Comment: Name Collection Type:: Clean-Voided Midstream Performed By: #### C UBLD, CMP, CBC #### [facility] [address] [place] [id number] [place] Glucose Ql (U) Normal Normal Normal [facility] Comment on above: Order Comment: Name Collection Type:: Clean-Voided Midstream Performed By: #### C UBLD, CMP, CBC #### [address] Hyaline Casts,Urine 0-8 Normal 0-8 [facility] Comment on above: Order Comment: Name Collection Type:: Clean-Voided Midstream Performed By: #### C UBLD, CMP, CBC #### [address] Ketones Ql (U) Trace High Negative [facility] Comment on above: Order Comment: Name Collection Type:: Clean-Voided Midstream Performed By: #### C UBLD, CMP, CBC #### [address] Leukocyte esterase Test strip Ql (U) 1+ High Negative [facility] Comment on above: Order Comment: Name Collection Type:: Clean-Voided Midstream Performed By: #### C UBLD, CMP, CBC #### [address] Nitrite,Urine Negative Normal Negative [facility] Comment on above: Order Comment: Name Collection Type:: Clean-Voided Midstream Performed By: #### C UBLD, CMP, CBC #### [address] Occult Blood,Urine Negative Normal Negative [facility] Comment on above: Order Comment: Name Collection Type:: Clean-Voided Midstream Result Comment: PERF ORMED BY: [place] [address] PATHOLOGIST FARMWORKER FR[employer] IAN ACE M.D. Performed By: #### C UBLD, CMP, CBC #### [address] pH (U) 6.0 [pH] Normal 5.0-9.0 [facility] Comment on above: Order Comment: Name Collection Type:: Clean-Voided Midstream Performed By: #### C UBLD, CMP, CBC #### [address] Protein (U) [Mass/Vol] 100 mg/dL High Negative [facility] Comment on above: Order Comment: Name Collection Type:: Clean-Voided Midstream Performed By: #### C UBLD, CMP, CBC #### [address] RBC,Urine 1-2 Normal 0-4 [facility] Comment on above: Order Comment: Name Collection Type:: Clean-Voided Midstream Performed By: #### C UBLD, CMP, CBC #### [address] Specificy [place],Urine 1.034 High 1.001-1.03 0 [facility] Comment on above: Order Comment: Name Collection Type:: Clean-Voided Midstream Performed By: #### C UBLD, CMP, CBC #### [address] Squamous Epithelial Cell,Urine 3-4 High 0-2 [facility] Comment on above: Order Comment: Name Collection Type:: Clean-Voided Midstream Performed By: #### C UBLD, CMP, CBC #### [address] Urobilinogen,Urine Normal Normal Normal [facility] Comment on above: Order Comment: Name Collection Type:: Clean-Voided Midstream Performed By: #### C UBLD, CMP, CBC #### [facility] [address] [place] [address] [place] WBC,Urine 10-19 High 0-4 [facility] Comment on above: Order Comment: Name Collection Type:: Clean-Voided Midstream Performed By: #### C UBLD, CMP, CBC #### [facility] [address] [place] [address] Yeast,Urine None Seen Normal None Seen [facility] Comment on above: Order Comment: Name Collection Type:: Clean-Voided Midstream Result Comment: PERF ORMED BY: [place] [address] PATHOLOGIST FARMWORKER [employer]AN ACE M.D. Performed By: #### C UBLD, CMP, CBC #### [facility] [address] [place] [address] [place] Eosinophils Auto (Bld) [#/Vo l]Ordered By: Sarah Schwarzimore on 04-10-2023 Eosinophils (Bld) [#/Vol] 0.1 10*3/uL 0.0-0.45 [facility] Eosinophils/100 WBC Auto (Bl d)Ordered By: Sarah Bullimore on 04-10-2023 Eosinophils/100 WBC (Bld) 1.0 % . [facility] Erythrocyte Sedimentation Ra emery 04-10-2023 ESR (Bld) [Velocity] mm/h High 0-29 [facility] Comment on above: Result Comment: PERF ORMED BY: [facility] [address] [place] [address] PATHOLOGIST FARMWORKER [employer]AN ACE M.D. Performed By: #### G DAIANA #### Point of Care testing , Erythrocyte distribution wid th Auto (RBC) [Ratio]Ordered By: Sarah Schwarzimmundo on 04-10-2023 Erythrocyte distribution width (RBC) [Ratio] 16.8 % 11.9-15.3 [facility] Erythrocyte sedimentation ra te by Photometric methodOrdered By: Sarah Schwarzimore on 04-10-2023 ESR Photometric method (Bld) [Velocity] > 130 mm/hr 0-29 [facility] Globulin Calc (S) [Mass/Vol] Ordered By: Sarah Schwarzimore on 04-10-2023 Globulin (S) [Mass/Vol] 4.5 g/dL [facility] Glucose [Mass/volume] in Ser um or PlasmaOrdered By: Sarah Hammerore on 04-10-2023 Glucose [Mass/Vol] 109 mg/dL 70-100 [facility] Comment on above: ADA recommended refe rence rangeRandom Glucose Reference Range is dependent on time and content of last meal. Glucose of more than 200 mg/dL in a nonstressed, ambulatory subject supports the diagnosis of Diabetes Mellitus. Hematocrit Auto (Bld) [Volum e fraction]Ordered By: Sarah Schwarzimore on 04-10-2023 Hematocrit (Bld) [Volume fraction] 39.4 % 34.0-46.4 [facility] Hemoglobin [Mass/volume] in BloodOrdered By: Sarah Davey on 04-10-2023 Hemoglobin (Bld) [Mass/Vol] 12.7 g/dL 11.8-15.4 [facility] Ketones Auto test strip (U) [Mass/Vol]Ordered By: Sarah Davey on 04-10-2023 Ketones (U) [Mass/Vol] Trace Negative [facility] - UrinalysisOrder ed By: Sarahros Davey on 04-10-2023 Hyaline casts LM Ql (Urine sed) 0-8 [LPF] 0-8 [facility] Lactate [Moles/volume] in Se rum or PlasmaOrdered By: Sarahros Davey on 04-10-2023 Lactate [Moles/Vol] 1.3 mmol/L Normal 0.5-2.2 [facility] Comment on above: Result Comment: PERF ORMED BY: [place] [address] PATHOLOGIST FARMWORKER [employer]AN ACE M.D. Performed By: #### C UBLD, CMP, CBC #### [address] Leukocytes [#/volume] correc julia for nucleated erythrocytes in Blood by Automated counOrdered By: Sarahros Davey on 04-10-2023 WBC corrected for nucl RBC Auto (Bld) [#/Vol] 13.0 10*3/uL 3.8-11.6 [facility] Lymphocytes Auto (Bld) [#/Vo l]Ordered By: Sarahros Davey on 04-10-2023 Lymphocytes (Bld) [#/Vol] 0.4 10*3/uL 1.00-4.8 [facility] Lymphocytes/100 WBC Auto (Bl d)Ordered By: Sarahros Davey on 04-10-2023 Lymphocytes/100 WBC (Bld) 3.2 % . [facility] MCH Auto (RBC) [Entitic mass ]Ordered By: Sarah Davey on 04-10-2023 MCH (RBC) [Entitic mass] 26.3 pg 24.7-34.3 [facility] MCHC Auto (RBC) [Mass/Vol]Or dered By: Sarah Schwarzimore on 04-10-2023 MCHC (RBC) [Mass/Vol] 32.1 g/dL 32.0-35.0 [facility] MCV Auto (RBC) [Entitic vol] Ordered By: Sarah Schwarzimore on 04-10-2023 MCV (RBC) [Entitic vol] 81.8 fL 80-100 [facility] Monocyte distribution width [Entitic volume] in Blood by AutomatedOrdered By: Sarah Davey on 04-10-2023 Monocyte distribution width Auto (Bld) [Entitic vol] 17.56 % 0.00-20.00 [facility] Monocytes Auto (Bld) [#/Vol] Ordered By: Sarah Davey on 04-10-2023 Monocytes (Bld) [#/Vol] 0.6 10*3/uL 0.0-0.8 [facility] Monocytes/100 WBC Auto (Bld) Ordered By: Sarah Schwarzimore on 04-10-2023 Monocytes/100 WBC (Bld) 5.0 % . [facility] Neutrophils Auto (Bld) [#/Vo l]Ordered By: Sarahros Hammerore on 04-10-2023 Neutrophils (Bld) [#/Vol] 11.7 10*3/uL 1.8-7.7 [facility] Neutrophils/100 WBC Auto (Bl d)Ordered By: Sarah Davey on 04-10-2023 Neutrophils/100 WBC (Bld) 90.3 % . [facility] Nitrite Test strip Ql (U)Ord ered By: Sarah Davey on 04-10-2023 Nitrite Ql (U) Negative Negative [facility] No Panel InformationOrdered By: Sarah Davey on 04-10-2023 Estimated GFR (CKD-EPI) 49.429 mL/Min [facility] Creatinine Clearance (Chem 60.88 [facility] Nucleated erythrocytes [Pres ence] in Blood by Automated countOrdered By: Sarah Davey on 04-10-2023 Nucleated RBC Auto Ql (Bld) 0.1 /100{WBC} 0-0.5 [facility] Platelet mean volume Auto (B ld) [Entitic vol]Ordered By: Sarah Bullimore on 04-10-2023 Platelet mean volume (Bld) [Entitic vol] 7.5 fL 6.3-10.7 [facility] Platelets Auto (Bld) [#/Vol] Ordered By: Sarah Bullimore on 04-10-2023 Platelets (Bld) [#/Vol] 474 10*3/uL 150-450 [facility] Potassium [Moles/volume] in Serum or PlasmaOrdered By: Sarah Bullimore on 04-10-2023 Potassium [Moles/Vol] 3.7 mmol/L 3.5-5.1 [facility] Protein Auto test strip (U) [Mass/Vol]Ordered By: Sarah Bullimore on 04-10-2023 Protein (U) [Mass/Vol] 100 mg/dL Negative [facility] Protein [Mass/volume] in Ser um or PlasmaOrdered By: Sarah Bullimore on 04-10-2023 Protein [Mass/Vol] 8.2 g/dL 6.4-8.9 [facility] RBC Auto (Bld) [#/Vol]Ordere d By: Sarah Bullimore on 04-10-2023 RBC (Bld) [#/Vol] 4.82 10*6/uL 3.60-5.00 [facility] Serum or plasma albumin/glob ulin mass ratioOrdered By: Sarah Bullimore on 04-10-2023 Albumin/Globulin [Mass ratio] 0.8 {ratio} [facility] Serum or plasma anion gap de terminationOrdered By: Sarah Bullimore on 04-10-2023 Anion gap [Moles/Vol] 15.3 mmol/L 6.0-15.0 [facility] Sodium [Moles/volume] in Ser um or PlasmaOrdered By: Sarah Bullimore on 04-10-2023 Sodium [Moles/Vol] 129 mmol/L 136-145 [facility] Sodium [Moles/volume] in Uri neOrdered By: Neeraj Farrell on 04-10-2023 Sodium (U) [Moles/Vol] mmol/L [facility] Comment on above: No reference range e stablished Sodium, Urineon 04-10-2023 Sodium, Urine < 10.0 Normal [facility] Comment on above: Result Comment: No r eference range established Performed By: #### C UBLD, CMP, CBC #### [facility] [address] Specific gravity Auto test s trip (U) [Rel density]Ordered By: Sarah Davey on 04-10-2023 Specific gravity (U) [Rel density] 1.034 1.001-1.03 0 [facility] Squamous epithelial cells de tection in urine sediment by light microscopyOrdered By: Sarah Davey on 04-10-2023 Epithelial cells.squamous LM Ql (Urine sed) 3-4 [HPF] 0-2 [facility] Superficial Wound Cultureon 04-10-2023 Superficial Wound Culture ORGANISM: Klebsiella oxytoca (O:KLEOXY) Quantity of Growth Moderate Growth ORGANISM: Providencia rettgeri (O:PRORET) Quantity of Growth Moderate Growth ORGANISM: Gram Negative Bacilli (O:GNB) Comments . Quantity of Growth Heavy Growth Send Test to Ref. Lab Sent to [facility] for ID/PASTORA ORGANISM: Morganella morganii (O:MORMOR) Carbapenemase [Type] in Isolate by Carba TOBACCO PRIMER MACHINE OPERATOR Organism negative for carbapenemase (CRE) Quantity [...] = Intermediate; R = Resistant Performed at: [address] [id number] Global Regulatory Affairs Manager: Mohsen Mccarthy PhD, Phone: [phone] Aerobic PASTORA Charge (NMIC56) SUSCEPTIBILITY ORGANISM: O:KLEOXY [...] RESISTANT TO ALL B-LACTAM DRUGS. PERFORMED BY: [place] [address] PATHOLOGIST FARMWORKER FRUIT IAN ACE M.D. [facility] Comment on above: Performed By: #### C USUP #### [address] Superficial Wound Culture ORGANISM: Serratia marcescens [...] = Intermediate; R = Resistant Performed at: [address] [id number] Global Regulatory Affairs Manager: Mohsen Mccarthy PhD, Phone: [phone] Aerobic PASTORA Charge ([id number]) SUSCEPTIBILITY ORGANISM: O:SERMAR [...] RESISTANT TO ALL B-LACTAM DRUGS. PERFORMED BY: [place] [address] PATHOLOGIST FARMWORKER [employer]AN ACE M.D. [facility] Comment on above: Performed By: #### C UBLD, CMP, CBC #### [facility] [address] Urea nitrogen [Mass/volume] in Serum or PlasmaOrdered By: Sarah Davey on 04-10-2023 Urea nitrogen [Mass/Vol] 43 mg/dL 12-30 [facility] Urine Cultureon 04-10-2023 Bacteria identified Cx Nom (U) >100,000 colonies/ml mixed bacterial skin contaminants 2 Days PERFORMED BY: [place] [address] PATHOLOGIST [employer] ACE M.D. [facility] Comment on above: Performed By: #### C UBLD, CMP, CBC #### [facility] [address] Urine bacteria detection by automated methodOrdered By: Sarah Davey on 04-10-2023 Bacteria Auto Ql (U) None seen None Seen [facility] Urine clarity by refractomet ry automatedOrdered By: Sarah Davey on 04-10-2023 Clarity Refractometry automated (U) Clear Clear [facility] Urine culture routineOrdered By: Sarah Davey on 04-10-2023 Bacteria identified Cx Nom (U) 2 Days [facility] Urine glucose measurement by automated test strip (mass/volume)Ordered By: Sarah Davey on 04-10-2023 Glucose Auto test strip (U) [Mass/Vol] Normal mg/dL Normal [facility] Urine hemoglobin detection b y automated test stripOrdered By: Sarah Davey on 04-10-2023 Hemoglobin Auto test strip Ql (U) Negative Negative [facility] Urine leukocyte esterase det ection by automated test stripOrdered By: Sarah Davey on 04-10-2023 Leukocyte esterase Auto test strip Ql (U) 1+ Negative [facility] Urobilinogen Auto test strip (U) [Mass/Vol]Ordered By: Sarah Davey on 04-10-2023 Urobilinogen (U) [Mass/Vol] Normal mg/dL Normal [facility] WBC Auto (Bld) [#/Vol]Ordere d By: Sarah Davey on 04-10-2023 WBC (Bld) [#/Vol] 13.0 10*3/uL 3.8-11.6 [facility] Yeast detection in urine sed iment by light microscopyOrdered By: Sarah Davey on 04-10-2023 Yeast LM Ql (Urine sed) None seen [HPF] None Seen [facility] pH Auto test strip (U)Ordere d By: Sarah Davey on 04-10-2023 pH (U) 6.0 [pH] 5.0-9.0 [facility] XR tibia/fibula BIon 10-31-2 023 XR tibia/fibula BI [place] [address] [place] [id number] XRay Report Signed Patient: [place] Cesar MR#: [id number] : [id number] Acct:[id number] Age/Sex: 67 / F ADM Date: 04/07/23 Loc: ER Room: Type: [facility] ER Attending Dr: Copies to: Jhonatan Crowell [...] Johnson Jr., D.O.04/07/2023 9:00 AM Dictation Location: [place] [address] Transcribed By: [facility] 04/07/23899 Dictated By: Andrew Johnson Jr, DO 04/07/23 0859 Signed By: 04/07/23 09 Normal [facility] Alanine aminotransferase [En zymatic activity/volume] in Serum or PlasmaOrdered By: Chon Valdez on 12-31-2022 ALT [Catalytic activity/Vol] 29 U/L 7-52 [facility] Albumin [Mass/volume] in Ser um or Plasma by Bromocresol green (BCG) dye binding methoOrdered By: Chon Valdez on 12-31-2022 Albumin BCG dye [Mass/Vol] 3.7 g/dL 3.5-5.7 [facility] Alkaline phosphatase [Enzyma tic activity/volume] in Serum or PlasmaOrdered By: Chon Valdez on 12-31-2022 ALP [Catalytic activity/Vol] 97 U/L 34-104 [facility] Aspartate aminotransferase [ Enzymatic activity/volume] in Serum or PlasmaOrdered By: Chon Valdez on 12-31-2022 AST [Catalytic activity/Vol] 34 U/L 13-39 [facility] Basophils Auto (Bld) [#/Vol] Ordered By: Chon Valdez on 12-31-2022 Basophils (Bld) [#/Vol] 0.0 10*3/uL 0.0-0.2 [facility] Basophils/100 WBC Auto (Bld) Ordered By: Chon Valdez on 12-31-2022 Basophils/100 WBC (Bld) 0.4 % . [facility] Bilirubin.total [Mass/volume ] in Serum or PlasmaOrdered By: Chon Valdez on 12-31-2022 Bilirubin [Mass/Vol] 0.3 mg/dL 0.3-1.0 [facility] Calcium [Mass/volume] in Ser um or PlasmaOrdered By: Chon Valdez on 12-31-2022 Calcium [Mass/Vol] 9.0 mg/dL 8.6-10.3 [facility] Carbon dioxide, total [Moles /volume] in Serum or PlasmaOrdered By: Chon Valdez on 12-31-2022 CO2 [Moles/Vol] 24.9 mmol/L 21.0-31.0 [facility] Chloride [Moles/volume] in S marivel or PlasmaOrdered By: Chon Valdez on 12-31-2022 Chloride [Moles/Vol] 106 mmol/L 98-107 [facility] Complete Blood Count Auto Di ffon 12-31-2022 Basophils (Bld) [#/Vol] 0.0 10*3/uL Normal 0.0-0.2 [facility] Comment on above: Result Comment: PERF ORMED BY: [facility] [address] [place] [address] PATHOLOGIST [employer] ACE M.D. Performed By: #### G LULS #### Point of Care testing , Basophils/100 WBC (Bld) 0.4 % Normal . [facility] Comment on above: Performed By: #### G LULS #### Point of Care testing , Eosinophils (Bld) [#/Vol] 0.3 10*3/uL Normal 0.0-0.45 [facility] Comment on above: Performed By: #### G KYAWLS #### Point of Care testing , Eosinophils/100 WBC (Bld) 3.9 % Normal . [facility] Comment on above: Performed By: #### G KYAWLS #### Point of Care testing , Erythrocyte distribution width (RBC) [Ratio] 17.3 % High 11.9-15.3 [facility] Comment on above: Performed By: #### G KYAWLS #### Point of Care testing , Hematocrit (Bld) [Volume fraction] 35.9 % Normal 34.0-46.4 [facility] Comment on above: Performed By: #### G KYAWLS #### Point of Care testing , Hemoglobin (Bld) [Mass/Vol] 11.6 g/dL Low 11.8-15.4 [facility] Comment on above: Performed By: #### G KYAWLS #### Point of Care testing , Lymphocytes (Bld) [#/Vol] 0.8 10*3/uL Low 1.00-4.8 [facility] Comment on above: Performed By: #### G KYAWLS #### Point of Care testing , Lymphocytes/100 WBC (Bld) 9.3 % Normal . [facility] Comment on above: Performed By: #### G KYAWLS #### Point of Care testing , MCH (RBC) [Entitic mass] 26.1 pg Normal 24.7-34.3 [facility] Comment on above: Performed By: #### G KYAWLS #### Point of Care testing , MCV (RBC) [Entitic vol] 80.5 fL Normal 80-100 [facility] Comment on above: Performed By: #### G KYAWLS #### Point of Care testing , Mean Corpuscular HGB Conc 32.5 g/dL Normal 32.0-35.0 [facility] Comment on above: Performed By: #### G KYAWLS #### Point of Care testing , Monocytes (Bld) [#/Vol] 0.9 10*3/uL High 0.0-0.8 [facility] Comment on above: Performed By: #### G DAIANA #### Point of Care testing , Monocytes/100 WBC (Bld) 19.53 % Normal 0.00-20.00 [facility] Comment on above: Performed By: #### Jodi AHMADI #### Point of Care testing , Monocytes/100 WBC (Bld) 11.2 % Normal . [facility] Comment on above: Performed By: #### Jodi AHMADI #### Point of Care testing , Neutrophils (Bld) [#/Vol] 6.1 10*3/uL Normal 1.8-7.7 [facility] Comment on above: Performed By: #### G DAIANA #### Point of Care testing , Neutrophils/100 WBC (Bld) 75.2 % Normal . [facility] Comment on above: Performed By: #### G DAIANA #### Point of Care testing , NRBC% 0.1 /100{WBC} Normal 0-0.5 [facility] Comment on above: Performed By: #### Jodi AHMADI #### Point of Care testing , Platelet mean volume (Bld) [Entitic vol] 7.9 fL Normal 6.3-10.7 [facility] Comment on above: Performed By: #### Jodi AHMADI #### Point of Care testing , Platelets (Bld) [#/Vol] 258 10*3/uL Normal 150-450 [facility] Comment on above: Performed By: #### Jodi AHMADI #### Point of Care testing , RBC (Bld) [#/Vol] 4.46 10*6/uL Normal 3.60-5.00 [facility] Comment on above: Performed By: #### Jodi AHMADI #### Point of Care testing , WBC (Bld) [#/Vol] 8.2 10*3/uL Normal 3.8-11.6 [facility] Comment on above: Performed By: #### Jodi AHMADI #### Point of Care testing , Comprehensive Metabolic Pane jeremy 12-31-2022 Albumin [Mass/Vol] 3.7 g/dL Normal 3.5-5.7 [facility] Comment on above: Performed By: #### G DAIANA #### Point of Care testing , Albumin/Globulin [Mass ratio] 1.3 {ratio} [facility] Comment on above: Performed By: #### G DAIANA #### Point of Care testing , ALP [Catalytic activity/Vol] 97 U/L Normal 34-104 [facility] Comment on above: Performed By: #### Jodi AHMADI #### Point of Care testing , ALT [Catalytic activity/Vol] 29 U/L Normal 7-52 [facility] Comment on above: Performed By: #### Jodi AHMADI #### Point of Care testing , Anion gap [Moles/Vol] 11.3 mmol/L Normal 6.0-15.0 [facility] Comment on above: Performed By: #### Jodi AHMADI #### Point of Care testing , AST [Catalytic activity/Vol] 34 U/L Normal 13-39 [facility] Comment on above: Performed By: #### Jodi AHMADI #### Point of Care testing , Bilirubin [Mass/Vol] 0.3 mg/dL Normal 0.3-1.0 [facility] Comment on above: Performed By: #### Jodi AHMADI #### Point of Care testing , Calcium [Mass/Vol] 9.0 mg/dL Normal 8.6-10.3 [facility] Comment on above: Performed By: #### Jodi AHMADI #### Point of Care testing , Chloride [Moles/Vol] 106 mmol/L Normal 98-107 [facility] Comment on above: Performed By: #### Jodi AHMADI #### Point of Care testing , CO2 [Moles/Vol] 24.9 mmol/L Normal 21.0-31.0 [facility] Comment on above: Performed By: #### Jodi AHMADI #### Point of Care testing , Creatinine [Mass/Vol] 0.75 mg/dL Normal 0.60-1.20 [facility] Comment on above: Performed By: #### G DAIANA #### Point of Care testing , Creatinine Clr Calc Pharmacy 97.74 [facility] Comment on above: Result Comment: PERF ORMED BY: [facility] [place] [address] PATHOLOGIST [employer] ACE M.D. Performed By: #### G KYAWLS #### Point of Care testing , GFR/1.73 sq M.predicted MDRD (S/P/Bld) [Vol rate/Area] mL/min/{1.73_m2} [facility] Comment on above: Performed By: #### G LULS #### Point of Care testing , Globulin (S) [Mass/Vol] 2.9 g/dL Normal [facility] Comment on above: Performed By: #### G LULS #### Point of Care testing , Glucose [Mass/Vol] 108 mg/dL High 70-100 [facility] Comment on above: Result Comment: [facility] Glucose Reference Range is dependent on time and content of last meal. Glucose of more than 200 mg/dL in a nonstressed, ambulatory subject supports the diagnosis of Diabetes Mellitus. ADA recommended reference range Performed By: #### G LULS #### Point of Care testing , Potassium [Moles/Vol] 4.2 mmol/L Normal 3.5-5.1 [facility] Comment on above: Performed By: #### G LULS #### Point of Care testing , Protein [Mass/Vol] 6.6 g/dL Normal 6.4-8.9 [facility] Comment on above: Performed By: #### G LULS #### Point of Care testing , Sodium [Moles/Vol] 138 mmol/L Normal 136-145 [facility] Comment on above: Performed By: #### G LULS #### Point of Care testing , Urea nitrogen [Mass/Vol] 36 mg/dL High 7-25 [facility] Comment on above: Performed By: #### G LULS #### Point of Care testing , Creatinine [Mass/volume] in Serum or PlasmaOrdered By: Chon Valdez on 12-31-2022 Creatinine [Mass/Vol] 0.75 mg/dL 0.60-1.20 [facility] Eosinophils Auto (Bld) [#/Vo l]Ordered By: Chon Valdez on 12-31-2022 Eosinophils (Bld) [#/Vol] 0.3 10*3/uL 0.0-0.45 [facility] Eosinophils/100 WBC Auto (Bl d)Ordered By: Chon Valdez on 12-31-2022 Eosinophils/100 WBC (Bld) 3.9 % . [facility] Erythrocyte distribution wid th Auto (RBC) [Ratio]Ordered By: Chon Valdez on 12-31-2022 Erythrocyte distribution width (RBC) [Ratio] 17.3 % 11.9-15.3 [facility] Globulin Calc (S) [Mass/Vol] Ordered By: Chon Valdez on 12-31-2022 Globulin (S) [Mass/Vol] 2.9 g/dL [facility] Glucose [Mass/volume] in Ser um or PlasmaOrdered By: Chon Valdez on 12-31-2022 Glucose [Mass/Vol] 108 mg/dL 70-100 [facility] Comment on above: ADA recommended refe rence rangeRandom Glucose Reference Range is dependent on time and content of last meal. Glucose of more than 200 mg/dL in a nonstressed, ambulatory subject supports the diagnosis of Diabetes Mellitus. Hematocrit Auto (Bld) [Volum e fraction]Ordered By: Chon Valdez on 12-31-2022 Hematocrit (Bld) [Volume fraction] 35.9 % 34.0-46.4 [facility] Hemoglobin [Mass/volume] in BloodOrdered By: Chon Valdez on 12-31-2022 Hemoglobin (Bld) [Mass/Vol] 11.6 g/dL 11.8-15.4 [facility] Leukocytes [#/volume] correc julia for nucleated erythrocytes in Blood by Automated counOrdered By: Chon Valdez on 12-31-2022 WBC corrected for nucl RBC Auto (Bld) [#/Vol] 8.2 10*3/uL 3.8-11.6 [facility] Lymphocytes Auto (Bld) [#/Vo l]Ordered By: Chon Valdez on 12-31-2022 Lymphocytes (Bld) [#/Vol] 0.8 10*3/uL 1.00-4.8 [facility] Lymphocytes/100 WBC Auto (Bl d)Ordered By: Chon Valdez on 12-31-2022 Lymphocytes/100 WBC (Bld) 9.3 % . [facility] MCH Auto (RBC) [Entitic mass ]Ordered By: Chon Valdez on 12-31-2022 MCH (RBC) [Entitic mass] 26.1 pg 24.7-34.3 [facility] MCHC Auto (RBC) [Mass/Vol]Or dered By: Chon Valdez on 12-31-2022 MCHC (RBC) [Mass/Vol] 32.5 g/dL 32.0-35.0 [facility] MCV Auto (RBC) [Entitic vol] Ordered By: Chon Valdez on 12-31-2022 MCV (RBC) [Entitic vol] 80.5 fL 80-100 [facility] Monocyte distribution width [Entitic volume] in Blood by AutomatedOrdered By: Chon Valdez on 12-31-2022 Monocyte distribution width Auto (Bld) [Entitic vol] 19.53 % 0.00-20.00 [facility] Monocytes Auto (Bld) [#/Vol] Ordered By: Chon Valdez on 12-31-2022 Monocytes (Bld) [#/Vol] 0.9 10*3/uL 0.0-0.8 [facility] Monocytes/100 WBC Auto (Bld) Ordered By: Chon Valdez on 12-31-2022 Monocytes/100 WBC (Bld) 11.2 % . [facility] Neutrophils Auto (Bld) [#/Vo l]Ordered By: Chon Valdez on 12-31-2022 Neutrophils (Bld) [#/Vol] 6.1 10*3/uL 1.8-7.7 [facility] Neutrophils/100 WBC Auto (Bl d)Ordered By: Chon Valdez on 12-31-2022 Neutrophils/100 WBC (Bld) 75.2 % . [facility] No Panel InformationOrdered By: Chon Valdez on 12-31-2022 Estimated GFR (CKD-EPI) > 60.0 mL/Min [facility] Pharmacy Creatinine Clearance (Chem 97.74 [facility] Nucleated erythrocytes [Pres ence] in Blood by Automated countOrdered By: Chon Valdez on 12-31-2022 Nucleated RBC Auto Ql (Bld) 0.1 /100{WBC} 0-0.5 [facility] Platelet mean volume Auto (B ld) [Entitic vol]Ordered By: Chon Valdez on 12-31-2022 Platelet mean volume (Bld) [Entitic vol] 7.9 fL 6.3-10.7 [facility] Platelets Auto (Bld) [#/Vol] Ordered By: Chon Valdez on 12-31-2022 Platelets (Bld) [#/Vol] 258 10*3/uL 150-450 [facility] Potassium [Moles/volume] in Serum or PlasmaOrdered By: Chon Valdez on 12-31-2022 Potassium [Moles/Vol] 4.2 mmol/L 3.5-5.1 [facility] Protein [Mass/volume] in Ser um or PlasmaOrdered By: Chon Valdez on 12-31-2022 Protein [Mass/Vol] 6.6 g/dL 6.4-8.9 [facility] RBC Auto (Bld) [#/Vol]Ordere d By: Chon Valdez on 12-31-2022 RBC (Bld) [#/Vol] 4.46 10*6/uL 3.60-5.00 [facility] Serum or plasma albumin/glob ulin mass ratioOrdered By: Chon Valdez on 12-31-2022 Albumin/Globulin [Mass ratio] 1.3 {ratio} [facility] Serum or plasma anion gap de terminationOrdered By: Chon Valdez on 12-31-2022 Anion gap [Moles/Vol] 11.3 mmol/L 6.0-15.0 [facility] Sodium [Moles/volume] in Ser um or PlasmaOrdered By: Chon Valdez on 12-31-2022 Sodium [Moles/Vol] 138 mmol/L 136-145 [facility] Urea nitrogen [Mass/volume] in Serum or PlasmaOrdered By: Chon Valdez on 12-31-2022 Urea nitrogen [Mass/Vol] 36 mg/dL 7-25 [facility] WBC Auto (Bld) [#/Vol]Ordere d By: Chon Valdez on 12-31-2022 WBC (Bld) [#/Vol] 8.2 10*3/uL 3.8-11.6 [facility] Complete Blood Count Auto Di ffon 12-14-2022 Basophils (Bld) [#/Vol] 0.1 10*3/uL Normal 0.0-0.2 [facility] Comment on above: Result Comment: PERF ORMED BY: [place] [address] PATHOLOGIST [employer] ACE M.D. Performed By: #### L ACTIC, CMP, CBC #### [facility] [address] Basophils/100 WBC (Bld) 1.0 % Normal . [facility] Comment on above: Performed By: #### L ACTIC, CMP, CBC #### [facility] [address] [place] [address] [place] Eosinophils (Bld) [#/Vol] 0.4 10*3/uL Normal 0.0-0.45 [facility] Comment on above: Performed By: #### L ACTIC, CMP, CBC #### [facility] [address] [place] [address] [place] Eosinophils/100 WBC (Bld) 4.9 % Normal . [facility] Comment on above: Performed By: #### L ACTIC, CMP, CBC #### [facility] [address] [place] [address] [place] Erythrocyte distribution width (RBC) [Ratio] 17.6 % High 11.9-15.3 [facility] Comment on above: Performed By: #### L ACTIC, CMP, CBC #### [facility] [address] [place] [address] [place] Hematocrit (Bld) [Volume fraction] 36.1 % Normal 34.0-46.4 [facility] Comment on above: Performed By: #### L ACTIC, CMP, CBC #### [facility] [address] [place] [address] [place] Hemoglobin (Bld) [Mass/Vol] 11.6 g/dL Low 11.8-15.4 [facility] Comment on above: Performed By: #### L ACTIC, CMP, CBC #### [facility] [address] [place] [address] Lymphocytes (Bld) [#/Vol] 1.3 10*3/uL Normal 1.00-4.8 [facility] Comment on above: Performed By: #### L ACTIC, CMP, CBC #### [address] Lymphocytes/100 WBC (Bld) 17.2 % Normal . [facility] Comment on above: Performed By: #### L ACTIC, CMP, CBC #### [address] MCH (RBC) [Entitic mass] 25.9 pg Normal 24.7-34.3 [facility] Comment on above: Performed By: #### L ACTIC, CMP, CBC #### [address] MCV (RBC) [Entitic vol] 80.4 fL Normal 80-100 [facility] Comment on above: Performed By: #### L ACTIC, CMP, CBC #### [address] Mean Corpuscular HGB Conc 32.2 g/dL Normal 32.0-35.0 [facility] Comment on above: Performed By: #### L ACTIC, CMP, CBC #### [facility] [address] [place] [address] Monocytes (Bld) [#/Vol] 0.7 10*3/uL Normal 0.0-0.8 [facility] Comment on above: Performed By: #### L ACTIC, CMP, CBC #### [address] Monocytes/100 WBC (Bld) 19.39 % Normal 0.00-20.00 [facility] Comment on above: Performed By: #### L ACTIC, CMP, CBC #### [address] Monocytes/100 WBC (Bld) 9.1 % Normal . [facility] Comment on above: Performed By: #### L ACTIC, CMP, CBC #### [address] Neutrophils (Bld) [#/Vol] 5.0 10*3/uL Normal 1.8-7.7 [facility] Comment on above: Performed By: #### L ACTIC, CMP, CBC #### [address] Neutrophils/100 WBC (Bld) 67.8 % Normal . [facility] Comment on above: Performed By: #### L ACTIC, CMP, CBC #### [address] NRBC% 0.1 /100{WBC} Normal 0-0.5 [facility] Comment on above: Performed By: #### L ACTIC, CMP, CBC #### [address] Platelet mean volume (Bld) [Entitic vol] 8.0 fL Normal 6.3-10.7 [facility] Comment on above: Performed By: #### L ACTIC, CMP, CBC #### [address] Platelets (Bld) [#/Vol] 204 10*3/uL Normal 150-450 [facility] Comment on above: Performed By: #### L ACTIC, CMP, CBC #### [address] RBC (Bld) [#/Vol] 4.49 10*6/uL Normal 3.60-5.00 [facility] Comment on above: Performed By: #### L ACTIC, CMP, CBC #### [address] WBC (Bld) [#/Vol] 7.4 10*3/uL Normal 3.8-11.6 [facility] Comment on above: Performed By: #### L ACTIC, CMP, CBC #### [facility] [address] Comprehensive Metabolic Pane jeremy 12-14-2022 Albumin [Mass/Vol] 4.0 g/dL Normal 3.5-5.7 [facility] Comment on above: Performed By: #### L ACTIC, CMP, CBC #### [facility] [address] Albumin/Globulin [Mass ratio] 1.4 {ratio} Normal [facility] Comment on above: Performed By: #### L ACTIC, CMP, CBC #### [facility] [address] ALP [Catalytic activity/Vol] 81 U/L Normal 34-104 [facility] Comment on above: Performed By: #### L ACTIC, CMP, CBC #### [facility] [address] ALT [Catalytic activity/Vol] 21 U/L Normal 7-52 [facility] Comment on above: Performed By: #### L ACTIC, CMP, CBC #### [facility] [address] Anion gap [Moles/Vol] 12.1 mmol/L Normal 6.0-15.0 [facility] Comment on above: Performed By: #### L ACTIC, CMP, CBC #### [facility] [address] AST [Catalytic activity/Vol] 22 U/L Normal 13-39 [facility] Comment on above: Performed By: #### L ACTIC, CMP, CBC #### [facility] [address] [place] [id number] [place] Bilirubin [Mass/Vol] 0.3 mg/dL Normal 0.3-1.0 [facility] Comment on above: Performed By: #### L ACTIC, CMP, CBC #### [facility] [address] [place] [id number] [facility] Calcium [Mass/Vol] 8.9 mg/dL Normal 8.6-10.3 [facility] Comment on above: Performed By: #### L ACTIC, CMP, CBC #### [facility] [address] [place] [address] [place] Chloride [Moles/Vol] 106 mmol/L Normal 98-107 [facility] Comment on above: Performed By: #### L ACTIC, CMP, CBC #### [facility] [address] CO2 [Moles/Vol] 27.1 mmol/L Normal 21.0-31.0 [facility] Comment on above: Performed By: #### L ACTIC, CMP, CBC #### [facility] [address] Creatinine [Mass/Vol] 0.94 mg/dL Normal 0.60-1.20 [facility] Comment on above: Performed By: #### L ACTIC, CMP, CBC #### [facility] [address] [place] [address] [place] Creatinine Clr Calc Pharmacy 86.28 [facility] Comment on above: Result Comment: PERF ORMED BY: [place] [address] PATHOLOGIST [employer] ACE M.D. Performed By: #### L ACTPERCY, CMP, CBC #### [facility] [address] [place] [address] [place] GFR/1.73 sq M.predicted MDRD (S/P/Bld) [Vol rate/Area] mL/min/{1.73_m2} [facility] Comment on above: Performed By: #### L ACTIC, CMP, CBC #### [facility] [address] [place] [address] [place] Globulin (S) [Mass/Vol] 2.9 g/dL [facility] Comment on above: Performed By: #### L ACTIC, CMP, CBC #### [facility] [address] [place] [address] [place] Glucose [Mass/Vol] 98 mg/dL Normal 70-100 [facility] Comment on above: Result Comment: [facility] Glucose Reference Range is dependent on time and content of last meal. Glucose of more than 200 mg/dL in a nonstressed, ambulatory subject supports the diagnosis of Diabetes Mellitus. ADA recommended reference range Performed By: #### L ALEXX ADLER, CBC #### [address] Potassium [Moles/Vol] 4.2 mmol/L Normal 3.5-5.1 [facility] Comment on above: Performed By: #### L ALEXX ADLER, CBC #### [address] Protein [Mass/Vol] 6.9 g/dL Normal 6.4-8.9 [facility] Comment on above: Performed By: #### L ALEXX ADLER, CBC #### [address] Sodium [Moles/Vol] 141 mmol/L Normal 136-145 [facility] Comment on above: Performed By: #### L ALEXX ADLER, CBC #### [address] Urea nitrogen [Mass/Vol] 24 mg/dL Normal 7-25 [facility] Comment on above: Performed By: #### L ALEXX ADLER, CBC #### [address] Lactic Acidon 12-14-2022 Lactate [Moles/Vol] 0.9 mmol/L Normal 0.5-2.2 [facility] Comment on above: Result Comment: PERF ORMED BY: [place] [address] PATHOLOGIST [employer]ARMWORK[employer]AN ACE M.D. Performed By: #### L ALEXX ADLER, CBC #### [address] Superficial Wound Cultureon 12-14-2022 Superficial Wound Culture Claudia haemulonii results called at 1420 on 12/18/22. ORGANISM: Pseudomonas aeruginosa (O:PSEAER) Carbapenemase [Type] in Isolate by Carba [employer] PRIMER MACHINE OPERATOR Organism negative for carbapenemase (CRE) Quantity [...] RESISTANT TO ALL B-LACTAM DRUGS. PERFORMED BY: [place] [address] PATHOLOGIST [employer]ARMWORKER [employer]AN ACE M.D. Normal [facility] Comment on above: Performed By: #### C UBLD, CMP, CBC #### [address] Alanine aminotransferase [En zymatic activity/volume] in Serum or PlasmaOrdered By: Chon Valdez on 12-13-2022 ALT [Catalytic activity/Vol] 21 U/L 7-52 [facility] Albumin [Mass/volume] in Ser um or Plasma by Bromocresol green (BCG) dye binding methoOrdered By: Chon Valdez on 12-13-2022 Albumin BCG dye [Mass/Vol] 4.0 g/dL 3.5-5.7 [facility] Alkaline phosphatase [Enzyma tic activity/volume] in Serum or PlasmaOrdered By: Chon Valdez on 12-13-2022 ALP [Catalytic activity/Vol] 81 U/L 34-104 [facility] Aspartate aminotransferase [ Enzymatic activity/volume] in Serum or PlasmaOrdered By: Chon Valdez on 12-13-2022 AST [Catalytic activity/Vol] 22 U/L 13-39 [facility] Bacteria identified Aer cx N om (Unsp spec)Ordered By: Chon Valdez on 12-13-2022 Superficial Wound Culture Pseudomonas aeruginosa [facility] Superficial Wound Culture Enterococcus faecalis [facility] Superficial Wound Culture [facility] Super[facility] W[facility] Culture Methicillin Resis Staph Aureus [facility] Superficial Wound Culture Claudia haemulonii [facility] Basophils Auto (Bld) [#/Vol] Ordered By: Chon Valdez on 12-13-2022 Basophils (Bld) [#/Vol] 0.1 10*3/uL 0.0-0.2 [facility] Basophils/100 WBC Auto (Bld) Ordered By: Chon Valdez on 12-13-2022 Basophils/100 WBC (Bld) 1.0 % . [facility] Bilirubin.total [Mass/volume ] in Serum or PlasmaOrdered By: Chon Valdez on 12-13-2022 Bilirubin [Mass/Vol] 0.3 mg/dL 0.3-1.0 [facility] Calcium [Mass/volume] in Ser um or PlasmaOrdered By: Chon Valdez on 12-13-2022 Calcium [Mass/Vol] 8.9 mg/dL 8.6-10.3 [facility] Carbon dioxide, total [Moles /volume] in Serum or PlasmaOrdered By: Chon Valdez on 12-13-2022 CO2 [Moles/Vol] 27.1 mmol/L 21.0-31.0 [facility] Chloride [Moles/volume] in S marivel or PlasmaOrdered By: Chon Valdez on 12-13-2022 Chloride [Moles/Vol] 106 mmol/L 98-107 [facility] Creatinine [Mass/volume] in Serum or PlasmaOrdered By: Chon Valdez on 12-13-2022 Creatinine [Mass/Vol] 0.94 mg/dL 0.60-1.20 [facility] Eosinophils Auto (Bld) [#/Vo l]Ordered By: Chon Valdez on 12-13-2022 Eosinophils (Bld) [#/Vol] 0.4 10*3/uL 0.0-0.45 [facility] Eosinophils/100 WBC Auto (Bl d)Ordered By: Chon Valdez on 12-13-2022 Eosinophils/100 WBC (Bld) 4.9 % . [facility] Erythrocyte distribution wid th Auto (RBC) [Ratio]Ordered By: Chon Valdez on 12-13-2022 Erythrocyte distribution width (RBC) [Ratio] 17.6 % 11.9-15.3 [facility] Globulin Calc (S) [Mass/Vol] Ordered By: Chon Valdez on 12-13-2022 Globulin (S) [Mass/Vol] 2.9 g/dL [facility] Glucose [Mass/volume] in Ser um or PlasmaOrdered By: Chon Valdez on 12-13-2022 Glucose [Mass/Vol] 98 mg/dL 70-100 [facility] Comment on above: ADA recommended refe rence rangeRandom Glucose Reference Range is dependent on time and content of last meal. Glucose of more than 200 mg/dL in a nonstressed, ambulatory subject supports the diagnosis of Diabetes Mellitus. Hematocrit Auto (Bld) [Volum e fraction]Ordered By: Chon Valdez on 12-13-2022 Hematocrit (Bld) [Volume fraction] 36.1 % 34.0-46.4 [facility] Hemoglobin [Mass/volume] in BloodOrdered By: Chon Valdez on 12-13-2022 Hemoglobin (Bld) [Mass/Vol] 11.6 g/dL 11.8-15.4 [facility] Lactate [Moles/volume] in Se rum or PlasmaOrdered By: Chon Valdez on 12-13-2022 Lactate [Moles/Vol] 0.9 mmol/L 0.5-2.2 [facility] Leukocytes [#/volume] correc julia for nucleated erythrocytes in Blood by Automated counOrdered By: Chon Valdez on 12-13-2022 WBC corrected for nucl RBC Auto (Bld) [#/Vol] 7.4 10*3/uL 3.8-11.6 [facility] Lymphocytes Auto (Bld) [#/Vo l]Ordered By: Chon Valdez on 12-13-2022 Lymphocytes (Bld) [#/Vol] 1.3 10*3/uL 1.00-4.8 [facility] Lymphocytes/100 WBC Auto (Bl d)Ordered By: Chon Valdez on 12-13-2022 Lymphocytes/100 WBC (Bld) 17.2 % . [facility] MCH Auto (RBC) [Entitic mass ]Ordered By: Chon Valdez on 12-13-2022 MCH (RBC) [Entitic mass] 25.9 pg 24.7-34.3 [facility] MCHC Auto (RBC) [Mass/Vol]Or dered By: Chon Valdez on 12-13-2022 MCHC (RBC) [Mass/Vol] 32.2 g/dL 32.0-35.0 [facility] MCV Auto (RBC) [Entitic vol] Ordered By: Chon Valdez on 12-13-2022 MCV (RBC) [Entitic vol] 80.4 fL 80-100 [facility] Monocyte distribution width [Entitic volume] in Blood by AutomatedOrdered By: Chon Valdez on 12-13-2022 Monocyte distribution width Auto (Bld) [Entitic vol] 19.39 % 0.00-20.00 [facility] Monocytes Auto (Bld) [#/Vol] Ordered By: Chon Valdez on 12-13-2022 Monocytes (Bld) [#/Vol] 0.7 10*3/uL 0.0-0.8 [facility] Monocytes/100 WBC Auto (Bld) Ordered By: Chon Valdez on 12-13-2022 Monocytes/100 WBC (Bld) 9.1 % . [facility] Neutrophils Auto (Bld) [#/Vo l]Ordered By: Chon Valdez on 12-13-2022 Neutrophils (Bld) [#/Vol] 5.0 10*3/uL 1.8-7.7 [facility] Neutrophils/100 WBC Auto (Bl d)Ordered By: Chon Valdez on 12-13-2022 Neutrophils/100 WBC (Bld) 67.8 % . [facility] No Panel InformationOrdered By: Chon Valdez on 12-13-2022 Estimated GFR (CKD-EPI) > 60.0 mL/Min [facility] Creatinine Clearance (Chem 86.28 [facility] Nucleated erythrocytes [Pres ence] in Blood by Automated countOrdered By: Chon Valdez on 12-13-2022 Nucleated RBC Auto Ql (Bld) 0.1 /100{WBC} 0-0.5 [facility] Platelet mean volume Auto (B ld) [Entitic vol]Ordered By: Chon Valdez on 12-13-2022 Platelet mean volume (Bld) [Entitic vol] 8.0 fL 6.3-10.7 [facility] Platelets Auto (Bld) [#/Vol] Ordered By: Chon Valdez on 12-13-2022 Platelets (Bld) [#/Vol] 204 10*3/uL 150-450 [facility] Potassium [Moles/volume] in Serum or PlasmaOrdered By: Chon Valdez on 12-13-2022 Potassium [Moles/Vol] 4.2 mmol/L 3.5-5.1 [facility] Protein [Mass/volume] in Ser um or PlasmaOrdered By: Chon Valdez on 12-13-2022 Protein [Mass/Vol] 6.9 g/dL 6.4-8.9 [facility] RBC Auto (Bld) [#/Vol]Ordere d By: Chon Valdez on 12-13-2022 RBC (Bld) [#/Vol] 4.49 10*6/uL 3.60-5.00 [facility] Serum or plasma albumin/glob ulin mass ratioOrdered By: Chon Valdez on 12-13-2022 Albumin/Globulin [Mass ratio] 1.4 {ratio} [facility] Serum or plasma anion gap de terminationOrdered By: Chon Valdez on 12-13-2022 Anion gap [Moles/Vol] 12.1 mmol/L 6.0-15.0 [facility] Sodium [Moles/volume] in Ser um or PlasmaOrdered By: Chon Valdez on 12-13-2022 Sodium [Moles/Vol] 141 mmol/L 136-145 [facility] Urea nitrogen [Mass/volume] in Serum or PlasmaOrdered By: Chon Valdez on 12-13-2022 Urea nitrogen [Mass/Vol] 24 mg/dL 7-25 [facility] WBC Auto (Bld) [#/Vol]Ordere d By: Chon Valdez on 12-13-2022 WBC (Bld) [#/Vol] 7.4 10*3/uL 3.8-11.6 [facility] Alanine aminotransferase [En zymatic activity/volume] in Serum or PlasmaOrdered By: Laith Warner on 12-01-2022 ALT [Catalytic activity/Vol] 21 U/L 7-52 [facility] Albumin [Mass/volume] in Ser um or Plasma by Bromocresol green (BCG) dye binding methoOrdered By: Laith Warner on 12-01-2022 Albumin BCG dye [Mass/Vol] 4.2 g/dL 3.5-5.7 [facility] Alkaline phosphatase [Enzyma tic activity/volume] in Serum or PlasmaOrdered By: Laith Warner on 12-01-2022 ALP [Catalytic activity/Vol] 71 U/L 34-104 [facility] Aspartate aminotransferase [ Enzymatic activity/volume] in Serum or PlasmaOrdered By: Laith Warner on 12-01-2022 AST [Catalytic activity/Vol] 26 U/L 13-39 [facility] Bacterial blood cultureOrder ed By: Laith Warner on 12-01-2022 Bacteria identified Cx Nom (Bld) NO GROWTH 5 DAYS [facility] Basophils Auto (Bld) [#/Vol] Ordered By: Laith Warner on 12-01-2022 Basophils (Bld) [#/Vol] 0.0 10*3/uL 0.0-0.2 [facility] Basophils/100 WBC Auto (Bld) Ordered By: Laith Warner on 12-01-2022 Basophils/100 WBC (Bld) 0.6 % . [facility] Bilirubin.total [Mass/volume ] in Serum or PlasmaOrdered By: Laith Warner on 12-01-2022 Bilirubin [Mass/Vol] 0.3 mg/dL 0.3-1.0 [facility] Blood Cultureon 12-01-2022 Bacteria identified Cx Nom (Bld) NO GROWTH 5 DAYS PERFORMED BY: [place] [address] PATHOLOGIST [employer] ACE M.D. Normal [facility] Comment on above: Performed By: #### L ACTIC, CMP, CBC #### [address] Bacteria identified Cx Nom (Bld) NO GROWTH 5 DAYS PERFORMED BY: [address] [place] [address] PATHOLOGIST [employer] ACE M.D. Normal [facility] Comment on above: Performed By: #### L ACTIC, CMP, CBC #### [facility] [address] [place] [address] [facility] Calcium [Mass/volume] in Ser um or PlasmaOrdered By: Laith Warner on 12-01-2022 Calcium [Mass/Vol] 8.9 mg/dL 8.6-10.3 [facility] Carbon dioxide, total [Moles /volume] in Serum or PlasmaOrdered By: Laith Warner on 12-01-2022 CO2 [Moles/Vol] 24.3 mmol/L 21.0-31.0 [facility] Chloride [Moles/volume] in S marivel or PlasmaOrdered By: Laith Warner on 12-01-2022 Chloride [Moles/Vol] 109 mmol/L 98-107 [facility] Complete Blood Count Auto Di ffon 12-01-2022 Basophils (Bld) [#/Vol] 0.0 10*3/uL Normal 0.0-0.2 [facility] Comment on above: Result Comment: PERF ORMED BY: [facility] [address] [place] [id number] PATHOLOGIST [employer] ACE M.D. Performed By: #### G LULS #### Point of Care testing , Basophils/100 WBC (Bld) 0.6 % Normal . [facility] Comment on above: Performed By: #### G LULS #### Point of Care testing , Eosinophils (Bld) [#/Vol] 0.4 10*3/uL Normal 0.0-0.45 [facility] Comment on above: Performed By: #### G LULS #### Point of Care testing , Eosinophils/100 WBC (Bld) 5.7 % Normal . [facility] Comment on above: Performed By: #### G LULS #### Point of Care testing , Erythrocyte distribution width (RBC) [Ratio] 17.4 % High 11.9-15.3 [facility] Comment on above: Performed By: #### G DAIANA #### Point of Care testing , Hematocrit (Bld) [Volume fraction] 35.5 % Normal 34.0-46.4 [facility] Comment on above: Performed By: #### G KYAWLS #### Point of Care testing , Hemoglobin (Bld) [Mass/Vol] 11.5 g/dL Low 11.8-15.4 [facility] Comment on above: Performed By: #### Jodi AHMADI #### Point of Care testing , Lymphocytes (Bld) [#/Vol] 0.8 10*3/uL Low 1.00-4.8 [facility] Comment on above: Performed By: #### Jodi CARDLS #### Point of Care testing , Lymphocytes/100 WBC (Bld) 11.6 % Normal . [facility] Comment on above: Performed By: #### Jodi CARDLS #### Point of Care testing , MCH (RBC) [Entitic mass] 26.0 pg Normal 24.7-34.3 [facility] Comment on above: Performed By: #### Jodi AHMADI #### Point of Care testing , MCV (RBC) [Entitic vol] 80.2 fL Normal 80-100 [facility] Comment on above: Performed By: #### Jodi AHMADI #### Point of Care testing , Mean Corpuscular HGB Conc 32.5 g/dL Normal 32.0-35.0 [facility] Comment on above: Performed By: #### Jodi AHMADI #### Point of Care testing , Monocytes (Bld) [#/Vol] 0.6 10*3/uL Normal 0.0-0.8 [facility] Comment on above: Performed By: #### Jodi AHMADI #### Point of Care testing , Monocytes/100 WBC (Bld) 17.78 % Normal 0.00-20.00 [facility] Comment on above: Performed By: #### Jodi AHMADI #### Point of Care testing , Monocytes/100 WBC (Bld) 8.3 % Normal . [facility] Comment on above: Performed By: #### Jodi AHMADI #### Point of Care testing , Neutrophils (Bld) [#/Vol] 5.1 10*3/uL Normal 1.8-7.7 [facility] Comment on above: Performed By: #### Jodi AHMADI #### Point of Care testing , Neutrophils/100 WBC (Bld) 73.8 % Normal . [facility] Comment on above: Performed By: #### Jodi AHMADI #### Point of Care testing , NRBC% 0.1 /100{WBC} Normal 0-0.5 [facility] Comment on above: Performed By: #### Jodi AHMADI #### Point of Care testing , Platelet mean volume (Bld) [Entitic vol] 7.8 fL Normal 6.3-10.7 [facility] Comment on above: Performed By: #### Jodi AHMADI #### Point of Care testing , Platelets (Bld) [#/Vol] 228 10*3/uL Normal 150-450 [facility] Comment on above: Performed By: #### Jodi AHMADI #### Point of Care testing , RBC (Bld) [#/Vol] 4.43 10*6/uL Normal 3.60-5.00 [facility] Comment on above: Performed By: #### Jodi AHMADI #### Point of Care testing , WBC (Bld) [#/Vol] 7.0 10*3/uL Normal 3.8-11.6 [facility] Comment on above: Performed By: #### Jodi CARDLS #### Point of Care testing , Comprehensive Metabolic Pane jeremy 12-01-2022 Albumin [Mass/Vol] 4.2 g/dL Normal 3.5-5.7 [facility] Comment on above: Performed By: #### L ACTIC, CMP, CBC #### [facility] [address] [place] [address] [place] Albumin/Globulin [Mass ratio] 1.6 {ratio} Normal [facility] Comment on above: Performed By: #### L ACTIC, CMP, CBC #### [facility] [address] [place] [address] [place] ALP [Catalytic activity/Vol] 71 U/L Normal 34-104 [facility] Comment on above: Performed By: #### L ACTIC, CMP, CBC #### [facility] [address] ALT [Catalytic activity/Vol] 21 U/L Normal 7-52 [facility] Comment on above: Performed By: #### L ACTIC, CMP, CBC #### [facility] [address] Anion gap [Moles/Vol] 11.3 mmol/L Normal 6.0-15.0 [facility] Comment on above: Performed By: #### L ACTIC, CMP, CBC #### [facility] [address] AST [Catalytic activity/Vol] 26 U/L Normal 13-39 [facility] Comment on above: Performed By: #### L ACTIC, CMP, CBC #### [facility] [address] Bilirubin [Mass/Vol] 0.3 mg/dL Normal 0.3-1.0 [facility] Comment on above: Performed By: #### L ACTIC, CMP, CBC #### [facility] [address] Calcium [Mass/Vol] 8.9 mg/dL Normal 8.6-10.3 [facility] Comment on above: Performed By: #### L ACTIC, CMP, CBC #### [facility] [address] [place] [address] [place] Chloride [Moles/Vol] 109 mmol/L High 98-107 [facility] Comment on above: Performed By: #### L ACTIC, CMP, CBC #### [facility] [address] [place] [id number] [place] CO2 [Moles/Vol] 24.3 mmol/L Normal 21.0-31.0 [facility] Comment on above: Performed By: #### L ACTIC, CMP, CBC #### [facility] [address] [place] [address] [place] Creatinine [Mass/Vol] 0.84 mg/dL Normal 0.60-1.20 [facility] Comment on above: Performed By: #### L ACTPERCY CMP, CBC #### [facility] [address] Creatinine Clr Calc Pharmacy 95.60 [facility] Comment on above: Result Comment: PERF ORMED BY: [place] [address] PATHOLOGIST [employer] ACE M.D. Performed By: #### L ACTIC, CMP, CBC #### [facility] [address] GFR/1.73 sq M.predicted MDRD (S/P/Bld) [Vol rate/Area] mL/min/{1.73_m2} [facility] Comment on above: Performed By: #### L ACTPERCY CMP, CBC #### [address] Globulin (S) [Mass/Vol] 2.6 g/dL [facility] Comment on above: Performed By: #### L ACTPERCY CMP, CBC #### [address] Glucose [Mass/Vol] 89 mg/dL Normal 70-100 [facility] Comment on above: Result Comment: [place] Glucose Reference Range is dependent on time and content of last meal. Glucose of more than 200 mg/dL in a nonstressed, ambulatory subject supports the diagnosis of Diabetes Mellitus. ADA recommended reference range Performed By: #### L ACTIC, CMP, CBC #### [facility] [address] Potassium [Moles/Vol] 3.6 mmol/L Normal 3.5-5.1 [facility] Comment on above: Performed By: #### L ACTIC, CMP, CBC #### [facility] [address] Protein [Mass/Vol] 6.8 g/dL Normal 6.4-8.9 [facility] Comment on above: Performed By: #### L ACTIC, CMP, CBC #### [facility] [address] [place] [address] [place] Sodium [Moles/Vol] 141 mmol/L Normal 136-145 [facility] Comment on above: Performed By: #### L ACTIC, CMP, CBC #### [facility] [address] [place] [address] [place] Urea nitrogen [Mass/Vol] 24 mg/dL Normal 7-25 [facility] Comment on above: Performed By: #### L ACTIC, CMP, CBC #### [facility] [address] [place] [id number] [place] Creatinine [Mass/volume] in Serum or PlasmaOrdered By: Laith Warner on 12-01-2022 Creatinine [Mass/Vol] 0.84 mg/dL 0.60-1.20 [facility] Eosinophils Auto (Bld) [#/Vo l]Ordered By: Laith Warner on 12-01-2022 Eosinophils (Bld) [#/Vol] 0.4 10*3/uL 0.0-0.45 [facility] Eosinophils/100 WBC Auto (Bl d)Ordered By: Laith Warner on 12-01-2022 Eosinophils/100 WBC (Bld) 5.7 % . [facility] Erythrocyte distribution wid th Auto (RBC) [Ratio]Ordered By: Laith Warner on 12-01-2022 Erythrocyte distribution width (RBC) [Ratio] 17.4 % 11.9-15.3 [facility] Globulin Calc (S) [Mass/Vol] Ordered By: Laith Warner on 12-01-2022 Globulin (S) [Mass/Vol] 2.6 g/dL [facility] Glucose [Mass/volume] in Ser um or PlasmaOrdered By: Laith Warner on 12-01-2022 Glucose [Mass/Vol] 89 mg/dL 70-100 [facility] Comment on above: ADA recommended refe rence rangeRandom Glucose Reference Range is dependent on time and content of last meal. Glucose of more than 200 mg/dL in a nonstressed, ambulatory subject supports the diagnosis of Diabetes Mellitus. Hematocrit Auto (Bld) [Volum e fraction]Ordered By: Laith Warner on 12-01-2022 Hematocrit (Bld) [Volume fraction] 35.5 % 34.0-46.4 [facility] Hemoglobin [Mass/volume] in BloodOrdered By: Laith Warner on 12-01-2022 Hemoglobin (Bld) [Mass/Vol] 11.5 g/dL 11.8-15.4 [facility] Lactate [Moles/volume] in Se rum or PlasmaOrdered By: Laith Warner on 12-01-2022 Lactate [Moles/Vol] 0.5 mmol/L 0.5-2.2 [facility] Lactic Acidon 12-01-2022 Lactate [Moles/Vol] 0.5 mmol/L Normal 0.5-2.2 [facility] Comment on above: Result Comment: PERF ORMED BY: [facility] [address] [place] [address] PATHOLOGIST [employer] ACE M.D. Performed By: #### G LULS #### Point of Care testing , Leukocytes [#/volume] correc julia for nucleated erythrocytes in Blood by Automated counOrdered By: Laith Warner on 12-01-2022 WBC corrected for nucl RBC Auto (Bld) [#/Vol] 7.0 10*3/uL 3.8-11.6 [facility] Lymphocytes Auto (Bld) [#/Vo l]Ordered By: Laith Warner on 12-01-2022 Lymphocytes (Bld) [#/Vol] 0.8 10*3/uL 1.00-4.8 [facility] Lymphocytes/100 WBC Auto (Bl d)Ordered By: Laith Warner on 12-01-2022 Lymphocytes/100 WBC (Bld) 11.6 % . [facility] MCH Auto (RBC) [Entitic mass ]Ordered By: Laith Warner on 12-01-2022 MCH (RBC) [Entitic mass] 26.0 pg 24.7-34.3 [facility] MCHC Auto (RBC) [Mass/Vol]Or dered By: Laith Warner on 12-01-2022 MCHC (RBC) [Mass/Vol] 32.5 g/dL 32.0-35.0 [facility] MCV Auto (RBC) [Entitic vol] Ordered By: Laith Warner on 12-01-2022 MCV (RBC) [Entitic vol] 80.2 fL 80-100 [facility] Monocyte distribution width [Entitic volume] in Blood by AutomatedOrdered By: Laith Warner on 12-01-2022 Monocyte distribution width Auto (Bld) [Entitic vol] 17.78 % 0.00-20.00 [facility] Monocytes Auto (Bld) [#/Vol] Ordered By: Laith Warner on 12-01-2022 Monocytes (Bld) [#/Vol] 0.6 10*3/uL 0.0-0.8 [facility] Monocytes/100 WBC Auto (Bld) Ordered By: Laith Warner on 12-01-2022 Monocytes/100 WBC (Bld) 8.3 % . [facility] Neutrophils Auto (Bld) [#/Vo l]Ordered By: Laith Warner on 12-01-2022 Neutrophils (Bld) [#/Vol] 5.1 10*3/uL 1.8-7.7 [facility] Neutrophils/100 WBC Auto (Bl d)Ordered By: Laith Warner on 12-01-2022 Neutrophils/100 WBC (Bld) 73.8 % . [facility] No Panel InformationOrdered By: Laith Warner on 12-01-2022 Estimated GFR (CKD-EPI) > 60.0 mL/Min [facility] Creatinine Clearance (Chem 95.60 [facility] Nucleated erythrocytes [Pres ence] in Blood by Automated countOrdered By: Laith Warner on 12-01-2022 Nucleated RBC Auto Ql (Bld) 0.1 /100{WBC} 0-0.5 [facility] Platelet mean volume Auto (B ld) [Entitic vol]Ordered By: Laith Warner on 12-01-2022 Platelet mean volume (Bld) [Entitic vol] 7.8 fL 6.3-10.7 [facility] Platelets Auto (Bld) [#/Vol] Ordered By: Laith Warner on 12-01-2022 Platelets (Bld) [#/Vol] 228 10*3/uL 150-450 [facility] Potassium [Moles/volume] in Serum or PlasmaOrdered By: Laith Warner on 12-01-2022 Potassium [Moles/Vol] 3.6 mmol/L 3.5-5.1 [facility] Protein [Mass/volume] in Ser um or PlasmaOrdered By: Laith Warner on 12-01-2022 Protein [Mass/Vol] 6.8 g/dL 6.4-8.9 [facility] RBC Auto (Bld) [#/Vol]Ordere d By: Laith Warner on 12-01-2022 RBC (Bld) [#/Vol] 4.43 10*6/uL 3.60-5.00 [facility] Serum or plasma albumin/glob ulin mass ratioOrdered By: Laith Warner on 12-01-2022 Albumin/Globulin [Mass ratio] 1.6 {ratio} [facility] Serum or plasma anion gap de terminationOrdered By: Laith Warner on 12-01-2022 Anion gap [Moles/Vol] 11.3 mmol/L 6.0-15.0 [facility] Sodium [Moles/volume] in Ser um or PlasmaOrdered By: Laith Warner on 12-01-2022 Sodium [Moles/Vol] 141 mmol/L 136-145 [facility] Urea nitrogen [Mass/volume] in Serum or PlasmaOrdered By: Laith Warner on 12-01-2022 Urea nitrogen [Mass/Vol] 24 mg/dL 12-30 [facility] WBC Auto (Bld) [#/Vol]Ordere d By: Laith Warner on 12-01-2022 WBC (Bld) [#/Vol] 7.0 10*3/uL 3.8-11.6 [facility] Alanine aminotransferase [En zymatic activity/volume] in Serum or PlasmaOrdered By: Jhonatan Crowell on 11-05-2022 ALT [Catalytic activity/Vol] 20 U/L [facility] Albumin [Mass/volume] in Ser um or Plasma by Bromocresol green (BCG) dye binding methoOrdered By: Jhonatan Crowell on 11-05-2022 Albumin BCG dye [Mass/Vol] 3.9 g/dL 3.5-5.7 [facility] Alkaline phosphatase [Enzyma tic activity/volume] in Serum or PlasmaOrdered By: Jhonatan Crowell on 11-05-2022 ALP [Catalytic activity/Vol] 77 U/L 34-104 [facility] Aspartate aminotransferase [ Enzymatic activity/volume] in Serum or PlasmaOrdered By: Jhonatan Crowell on 11-05-2022 AST [Catalytic activity/Vol] 22 U/L 13-39 [facility] Bacterial blood cultureOrder ed By: Jhonatan Crowell on 11-05-2022 Bacteria identified Cx Nom (Bld) NO GROWTH 5 DAYS [facility] Basophils Auto (Bld) [#/Vol] Ordered By: Jhonatan Crowell on 11-05-2022 Basophils (Bld) [#/Vol] 0.0 10*3/uL 0.0-0.2 [facility] Basophils/100 WBC Auto (Bld) Ordered By: Jhonatan Crowell on 11-05-2022 Basophils/100 WBC (Bld) 0.6 % . [facility] Bilirubin.total [Mass/volume ] in Serum or PlasmaOrdered By: Jhonatan Crowell on 11-05-2022 Bilirubin [Mass/Vol] 0.5 mg/dL 0.3-1.0 [facility] Blood Cultureon 11-05-2022 Bacteria identified Cx Nom (Bld) NO GROWTH 5 DAYS PERFORMED BY: [place] [address] PATHOLOGIST [employer] ACE M.D. [facility] Comment on above: Performed By: #### L ACTIC, CMP, CBC #### [facility] [address] [place] [address] [place] Bacteria identified Cx Nom (Bld) NO GROWTH 5 DAYS PERFORMED BY: [place] [address] PATHOLOGIST [employer] ACE M.D. [facility] Comment on above: Performed By: #### L ACTIC, CMP, CBC #### [facility] [address] [place], [place] [id number] [place] Calcium [Mass/volume] in Ser um or PlasmaOrdered By: Jhonatan Crowell on 11-05-2022 Calcium [Mass/Vol] 8.9 mg/dL 8.6-10.3 [facility] Carbon dioxide, total [Moles /volume] in Serum or PlasmaOrdered By: Jhonatan Crowell on 11-05-2022 CO2 [Moles/Vol] 28.5 mmol/L 21.0-31.0 [facility] Chloride [Moles/volume] in S marivel or PlasmaOrdered By: Jhonatan Crowell on 11-05-2022 Chloride [Moles/Vol] 106 mmol/L 98-107 [facility] Complete Blood Count Auto Di ffon 11-05-2022 Basophils (Bld) [#/Vol] 0.0 10*3/uL Normal 0.0-0.2 [facility] Comment on above: Result Comment: PERF ORMED BY: [place] [address] PATHOLOGIST [employer] ACE M.D. Performed By: #### L ACTIC, CMP, CBC #### [facility] [address] [place] [address] Basophils/100 WBC (Bld) 0.6 % Normal . [facility] Comment on above: Performed By: #### L ACTIC, CMP, CBC #### [facility] [address] Eosinophils (Bld) [#/Vol] 0.2 10*3/uL Normal 0.0-0.45 [facility] Comment on above: Performed By: #### L ACTIC, CMP, CBC #### [facility] [address] [place] [address] [place] Eosinophils/100 WBC (Bld) 2.9 % Normal . [facility] Comment on above: Performed By: #### L ACTIC, CMP, CBC #### [facility] [address] [place] [address] Erythrocyte distribution width (RBC) [Ratio] 16.7 % High 11.9-15.3 [facility] Comment on above: Performed By: #### L ACTIC, CMP, CBC #### [facility] [address] [place] [address] Hematocrit (Bld) [Volume fraction] 37.5 % Normal 34.0-46.4 [facility] Comment on above: Performed By: #### L ACTIC, CMP, CBC #### [address] Hemoglobin (Bld) [Mass/Vol] 12.2 g/dL Normal 11.8-15.4 [facility] Comment on above: Performed By: #### L ACTIC, CMP, CBC #### [address] Lymphocytes (Bld) [#/Vol] 0.8 10*3/uL Low 1.00-4.8 [facility] Comment on above: Performed By: #### L ACTIC, CMP, CBC #### [address] Lymphocytes/100 WBC (Bld) 11.3 % Normal . [facility] Comment on above: Performed By: #### L ACTIC, CMP, CBC #### [address] MCH (RBC) [Entitic mass] 25.8 pg Normal 24.7-34.3 [facility] Comment on above: Performed By: #### L ACTIC, CMP, CBC #### [address] MCV (RBC) [Entitic vol] 79.3 fL Low 80-100 [facility] Comment on above: Performed By: #### L ACTIC, CMP, CBC #### [address] Mean Corpuscular HGB Conc 32.5 g/dL Normal 32.0-35.0 [facility] Comment on above: Performed By: #### L ACTIC, CMP, CBC #### [address] Monocytes (Bld) [#/Vol] 0.5 10*3/uL Normal 0.0-0.8 [facility] Comment on above: Performed By: #### L ACTIC, CMP, CBC #### [address] [place] [address] [place] Monocytes/100 WBC (Bld) 16.42 % Normal 0.00-20.00 [facility] Comment on above: Performed By: #### L ACTIC, CMP, CBC #### [facility] [address] [place] [address] [place] Monocytes/100 WBC (Bld) 7.1 % Normal . [facility] Comment on above: Performed By: #### L ACTIC, CMP, CBC #### [facility] [address] [place] [address] [place] Neutrophils (Bld) [#/Vol] 5.4 10*3/uL Normal 1.8-7.7 [facility] Comment on above: Performed By: #### L ACTIC, CMP, CBC #### [facility] [address] [place] [address] [place] Neutrophils/100 WBC (Bld) 78.1 % Normal . [facility] Comment on above: Performed By: #### L ACTIC, CMP, CBC #### [place] [address] [place] NRBC% 0.1 /100{WBC} Normal 0-0.5 [facility] Comment on above: Performed By: #### L ACTIC, CMP, CBC #### [facility] [address] [place] [address] [place] Platelet mean volume (Bld) [Entitic vol] 8.1 fL Normal 6.3-10.7 [facility] Comment on above: Performed By: #### L ACTIC, CMP, CBC #### [facility] [address] [place] [address] [place] Platelets (Bld) [#/Vol] 233 10*3/uL Normal 150-450 [facility] Comment on above: Performed By: #### L ACTIC, CMP, CBC #### [place] [address] [place] RBC (Bld) [#/Vol] 4.73 10*6/uL Normal 3.60-5.00 [facility] Comment on above: Performed By: #### L ACTIC, CMP, CBC #### [address] WBC (Bld) [#/Vol] 6.9 10*3/uL Normal 3.8-11.6 [facility] Comment on above: Performed By: #### L ACTIC, CMP, CBC #### [address] Comprehensive Metabolic Pane jeremy 11-05-2022 Albumin [Mass/Vol] 3.9 g/dL Normal 3.5-5.7 [facility] Comment on above: Performed By: #### L ACTIC, CMP, CBC #### [address] Albumin/Globulin [Mass ratio] 1.3 {ratio} Normal [facility] Comment on above: Performed By: #### L ACTIC, CMP, CBC #### [address] ALP [Catalytic activity/Vol] 77 U/L Normal 34-104 [facility] Comment on above: Performed By: #### L ACTIC, CMP, CBC #### [address] ALT [Catalytic activity/Vol] 20 U/L Normal 7-52 [facility] Comment on above: Performed By: #### L ACTIC, CMP, CBC #### [address] Anion gap [Moles/Vol] 10.6 mmol/L Normal 6.0-15.0 [facility] Comment on above: Performed By: #### L ACTIC, CMP, CBC #### [address] AST [Catalytic activity/Vol] 22 U/L Normal 13-39 [facility] Comment on above: Performed By: #### L ACTIC, CMP, CBC #### [address] Bilirubin [Mass/Vol] 0.5 mg/dL Normal 0.3-1.0 [facility] Comment on above: Performed By: #### L ACTIC, CMP, CBC #### [facility] [address] Calcium [Mass/Vol] 8.9 mg/dL Normal 8.6-10.3 [facility] Comment on above: Performed By: #### L ACTIC, CMP, CBC #### [facility] [address] [place] [address] [place] Chloride [Moles/Vol] 106 mmol/L Normal 98-107 [facility] Comment on above: Performed By: #### L ACTIC, CMP, CBC #### [facility] [address] CO2 [Moles/Vol] 28.5 mmol/L Normal 21.0-31.0 [facility] Comment on above: Performed By: #### L ACTIC, CMP, CBC #### [facility] [address] Creatinine [Mass/Vol] 0.71 mg/dL Normal 0.60-1.20 [facility] Comment on above: Performed By: #### L ACTIC, CMP, CBC #### [facility] [address] [place] [address] [place] Creatinine Clr Calc Pharmacy 100.16 [facility] Comment on above: Result Comment: PERF ORMED BY: [place] [address] PATHOLOGIST [employer] ACE M.D. Performed By: #### L ACTIC, CMP, CBC #### [facility] [address] [place] [address] [place] GFR/1.73 sq M.predicted MDRD (S/P/Bld) [Vol rate/Area] mL/min/{1.73_m2} [facility] Comment on above: Performed By: #### L ACTIC, CMP, CBC #### [facility] [address] Globulin (S) [Mass/Vol] 3.0 g/dL [facility] Comment on above: Performed By: #### L ACTPERCY CMP, CBC #### [facility] [address] [place] [address] [place] Glucose [Mass/Vol] 92 mg/dL Normal 70-100 [facility] Comment on above: Result Comment: [place] Glucose Reference Range is dependent on time and content of last meal. Glucose of more than 200 mg/dL in a nonstressed, ambulatory subject supports the diagnosis of Diabetes Mellitus. ADA recommended reference range Performed By: #### L ALEXX ADLER, CBC #### [facility] [address] Potassium [Moles/Vol] 4.1 mmol/L Normal 3.5-5.1 [facility] Comment on above: Performed By: #### L ALEXX ADLER, CBC #### [facility] [address] Protein [Mass/Vol] 6.9 g/dL Normal 6.4-8.9 [facility] Comment on above: Performed By: #### L VITOR CMP, CBC #### [facility] [address] [place] [address] [place] Sodium [Moles/Vol] 141 mmol/L Normal 136-145 [facility] Comment on above: Performed By: #### L ALEXX ADLER, CBC #### [facility] [address] [place] [id number] [place] Urea nitrogen [Mass/Vol] 18 mg/dL Normal 7-25 [facility] Comment on above: Performed By: #### L ALEXX ADLER, CBC #### [facility] [address] [place] [address] [place] Creatinine [Mass/volume] in Serum or PlasmaOrdered By: Jhonatan Crowell on 11-05-2022 Creatinine [Mass/Vol] 0.71 mg/dL 0.60-1.20 [facility] Eosinophils Auto (Bld) [#/Vo l]Ordered By: Jhonatan Crowell on 11-05-2022 Eosinophils (Bld) [#/Vol] 0.2 10*3/uL 0.0-0.45 [facility] Eosinophils/100 WBC Auto (Bl d)Ordered By: Jhonatan Crowell on 11-05-2022 Eosinophils/100 WBC (Bld) 2.9 % . [facility] Erythrocyte distribution wid th Auto (RBC) [Ratio]Ordered By: Jhonatan Crowell on 11-05-2022 Erythrocyte distribution width (RBC) [Ratio] 16.7 % 11.9-15.3 [facility] Globulin Calc (S) [Mass/Vol] Ordered By: Jhonatan Crowell on 11-05-2022 Globulin (S) [Mass/Vol] 3.0 g/dL [facility] Glucose [Mass/volume] in Ser um or PlasmaOrdered By: Jhonatan Crowell on 11-05-2022 Glucose [Mass/Vol] 92 mg/dL 70-100 [facility] Comment on above: ADA recommended refe rence rangeRandom Glucose Reference Range is dependent on time and content of last meal. Glucose of more than 200 mg/dL in a nonstressed, ambulatory subject supports the diagnosis of Diabetes Mellitus. Hematocrit Auto (Bld) [Volum e fraction]Ordered By: Jhonatan Crowell on 11-05-2022 Hematocrit (Bld) [Volume fraction] 37.5 % 34.0-46.4 [facility] Hemoglobin [Mass/volume] in BloodOrdered By: Jhonatan Crowell on 11-05-2022 Hemoglobin (Bld) [Mass/Vol] 12.2 g/dL 11.8-15.4 [facility] Leukocytes [#/volume] correc julia for nucleated erythrocytes in Blood by Automated counOrdered By: Jhonatan Crowell on 11-05-2022 WBC corrected for nucl RBC Auto (Bld) [#/Vol] 6.9 10*3/uL 3.8-11.6 [facility] Lymphocytes Auto (Bld) [#/Vo l]Ordered By: Jhonatan Crowell on 11-05-2022 Lymphocytes (Bld) [#/Vol] 0.8 10*3/uL 1.00-4.8 [facility] Lymphocytes/100 WBC Auto (Bl d)Ordered By: Jhonatan Crowell on 11-05-2022 Lymphocytes/100 WBC (Bld) 11.3 % . [facility] MCH Auto (RBC) [Entitic mass ]Ordered By: Jhonatan Crowell on 11-05-2022 MCH (RBC) [Entitic mass] 25.8 pg 24.7-34.3 [facility] MCHC Auto (RBC) [Mass/Vol]Or dered By: Jhonatan Crowell on 11-05-2022 MCHC (RBC) [Mass/Vol] 32.5 g/dL 32.0-35.0 [facility] MCV Auto (RBC) [Entitic vol] Ordered By: Jhonatan Crowell on 11-05-2022 MCV (RBC) [Entitic vol] 79.3 fL 80-100 [facility] Monocyte distribution width [Entitic volume] in Blood by AutomatedOrdered By: Jhonatan Crowell on 11-05-2022 Monocyte distribution width Auto (Bld) [Entitic vol] 16.42 % 0.00-20.00 [facility] Monocytes Auto (Bld) [#/Vol] Ordered By: Jhonatan Crowell on 11-05-2022 Monocytes (Bld) [#/Vol] 0.5 10*3/uL 0.0-0.8 [facility] Monocytes/100 WBC Auto (Bld) Ordered By: Jhonatan Crowell on 11-05-2022 Monocytes/100 WBC (Bld) 7.1 % . [facility] Neutrophils Auto (Bld) [#/Vo l]Ordered By: Jhonatan Crowell on 11-05-2022 Neutrophils (Bld) [#/Vol] 5.4 10*3/uL 1.8-7.7 [facility] Neutrophils/100 WBC Auto (Bl d)Ordered By: Jhonatan Crowell on 11-05-2022 Neutrophils/100 WBC (Bld) 78.1 % . [facility] No Panel InformationOrdered By: Jhonatan Crowell on 11-05-2022 Estimated GFR (CKD-EPI) > 60.0 mL/Min [facility] Pharmacy Creatinine Clearance (Chem 100.16 [facility] Nucleated erythrocytes [Pres ence] in Blood by Automated countOrdered By: Jhonatan Crowell on 11-05-2022 Nucleated RBC Auto Ql (Bld) 0.1 /100{WBC} 0-0.5 [facility] Platelet mean volume Auto (B ld) [Entitic vol]Ordered By: Jhonatan Crowell on 11-05-2022 Platelet mean volume (Bld) [Entitic vol] 8.1 fL 6.3-10.7 [facility] Platelets Auto (Bld) [#/Vol] Ordered By: Jhonatan Crowell on 11-05-2022 Platelets (Bld) [#/Vol] 233 10*3/uL 150-450 [facility] Potassium [Moles/volume] in Serum or PlasmaOrdered By: Jhonatan Crowell on 11-05-2022 Potassium [Moles/Vol] 4.1 mmol/L 3.5-5.1 [facility] Protein [Mass/volume] in Ser um or PlasmaOrdered By: Jhonatan Crowell on 11-05-2022 Protein [Mass/Vol] 6.9 g/dL 6.4-8.9 [facility] RBC Auto (Bld) [#/Vol]Ordere d By: Jhonatan Crowell on 11-05-2022 RBC (Bld) [#/Vol] 4.73 10*6/uL 3.60-5.00 [facility] Serum or plasma albumin/glob ulin mass ratioOrdered By: Jhonatan Crowell on 11-05-2022 Albumin/Globulin [Mass ratio] 1.3 {ratio} [facility] Serum or plasma anion gap de terminationOrdered By: Jhonatan Crowell on 11-05-2022 Anion gap [Moles/Vol] 10.6 mmol/L 6.0-15.0 [facility] Sodium [Moles/volume] in Ser um or PlasmaOrdered By: Jhonatan Crowell on 11-05-2022 Sodium [Moles/Vol] 141 mmol/L 136-145 [facility] Urea nitrogen [Mass/volume] in Serum or PlasmaOrdered By: Jhonatan Crowell on 11-05-2022 Urea nitrogen [Mass/Vol] 18 mg/dL 7-25 [facility] WBC Auto (Bld) [#/Vol]Ordere d By: Jhonatan Crowell on 11-05-2022 WBC (Bld) [#/Vol] 6.9 10*3/uL 3.8-11.6 [facility] XR tibia fibula LT 2V*on XR tibia fibula LT 2V* [facility] [place] [place] [address] XRay Report Signed Patient: [place] Cesar MR#: [id number] : 1955 Acct:[id number] Age/Sex: 66 / F ADM Date: 11/05/22 [...] Padmini Bethea M.D.11/05/2022 12:27 PM Dictation Location: [place] [address] Transcribed By: [facility] 11/05/22 1227 Dictated By: Padmini Bethea MD 11/05/22 1225 Signed By: 11/05/22 1227 Normal [facility] Alanine aminotransferase [En zymatic activity/volume] in Serum or PlasmaOrdered By: Gerald Theodore on 10-12-2022 ALT [Catalytic activity/Vol] 20 U/L 7-52 [facility] Albumin [Mass/volume] in Ser um or Plasma by Bromocresol green (BCG) dye binding methoOrdered By: Gerald Theodore on 10-12-2022 Albumin BCG dye [Mass/Vol] 3.5 g/dL 3.5-5.7 [facility] Alkaline phosphatase [Enzyma tic activity/volume] in Serum or PlasmaOrdered By: Gerald Theodore on 10-12-2022 ALP [Catalytic activity/Vol] 67 U/L 34-104 [facility] Aspartate aminotransferase [ Enzymatic activity/volume] in Serum or PlasmaOrdered By: Gerald Theodore on 10-12-2022 AST [Catalytic activity/Vol] 23 U/L 13-39 [facility] Bacterial blood cultureOrder ed By: Gerald Theodore on 10-12-2022 Bacteria identified Cx Nom (Bld) NO GROWTH 5 DAYS [facility] Basophils Auto (Bld) [#/Vol] Ordered By: Gerald Theodore on 10-12-2022 Basophils (Bld) [#/Vol] 0.0 10*3/uL 0.0-0.2 [facility] Basophils/100 WBC Auto (Bld) Ordered By: Gerald Theodore on 10-12-2022 Basophils/100 WBC (Bld) 0.5 % . [facility] Bilirubin.total [Mass/volume ] in Serum or PlasmaOrdered By: Gerald Theodore on 10-12-2022 Bilirubin [Mass/Vol] 0.4 mg/dL 0.3-1.0 [facility] Blood Cultureon 10-12-2022 Bacteria identified Cx Nom (Bld) NO GROWTH 5 DAYS PERFORMED BY: [place] [address] PATHOLOGIST [employer] ACE M.D. [facility] Comment on above: Performed By: #### C UBLD, CMP, CBC #### [facility] [address] [place] [id number] [facility] C reactive protein [Mass/vol ume] in Serum or PlasmaOrdered By: Gerald Theodore on 10-12-2022 CRP [Mass/Vol] 1.7 mg/dL 0.0-0.5 [facility] C-Reactive Proteinon 023 C-Reactive Protein 1.7 mg/dL High 0.0-0.5 [facility] Comment on above: Result Comment: PERF ORMED BY: [place] [address] PATHOLOGIST [employer] ACE M.D. Performed By: #### C UBLD, CMP, CBC #### [address] Calcium [Mass/volume] in Ser um or PlasmaOrdered By: Gerald Theodore on 10-12-2022 Calcium [Mass/Vol] 8.4 mg/dL 8.6-10.3 [facility] Carbon dioxide, total [Moles /volume] in Serum or PlasmaOrdered By: Gerald Theodore on 10-12-2022 CO2 [Moles/Vol] 28.5 mmol/L 21.0-31.0 [facility] Chloride [Moles/volume] in S marivel or PlasmaOrdered By: Gerald Theodore on 10-12-2022 Chloride [Moles/Vol] 105 mmol/L 98-107 [facility] Complete Blood Count Auto Di ffon 10-12-2022 Basophils (Bld) [#/Vol] 0.0 10*3/uL Normal 0.0-0.2 [facility] Comment on above: Performed By: #### C UBLD, CMP, CBC #### [address] Basophils/100 WBC (Bld) 0.5 % Normal . [facility] Comment on above: Performed By: #### C UBLD, CMP, CBC #### [place] [address] [place] Eosinophils (Bld) [#/Vol] 0.2 10*3/uL Normal 0.0-0.45 [facility] Comment on above: Performed By: #### C UBLD, CMP, CBC #### [place] [address] [place] Eosinophils/100 WBC (Bld) 1.8 % Normal . [facility] Comment on above: Performed By: #### C UBLD, CMP, CBC #### [address] Erythrocyte distribution width (RBC) [Ratio] 16.3 % High 11.9-15.3 [facility] Comment on above: Performed By: #### C UBLD, CMP, CBC #### [address] Hematocrit (Bld) [Volume fraction] 35.2 % Normal 34.0-46.4 [facility] Comment on above: Performed By: #### C UBLD, CMP, CBC #### [address] Hemoglobin (Bld) [Mass/Vol] 11.2 g/dL Low 11.8-15.4 [facility] Comment on above: Performed By: #### C UBLD, CMP, CBC #### [address] Lymphocytes (Bld) [#/Vol] 0.8 10*3/uL Low 1.00-4.8 [facility] Comment on above: Performed By: #### C UBPREMA, CMP, CBC #### [address] Lymphocytes/100 WBC (Bld) 9.6 % Normal . [facility] Comment on above: Performed By: #### C UBLD, CMP, CBC #### [address] MCH (RBC) [Entitic mass] 25.5 pg Normal 24.7-34.3 [facility] Comment on above: Performed By: #### C UBPREMA, CMP, CBC #### [address] MCV (RBC) [Entitic vol] 80.1 fL Normal 80-100 [facility] Comment on above: Performed By: #### C UBLD, CMP, CBC #### [address] Mean Corpuscular HGB Conc 31.8 g/dL Low 32.0-35.0 [facility] Comment on above: Performed By: #### C UBLD, CMP, CBC #### [address] Monocytes (Bld) [#/Vol] 0.7 10*3/uL Normal 0.0-0.8 [facility] Comment on above: Performed By: #### C UBLD, CMP, CBC #### [facility] [address] [place] [address] [place] Monocytes/100 WBC (Bld) 14.89 % Normal 0.00-20.00 [facility] Comment on above: Performed By: #### C UBLD, CMP, CBC #### [facility] [address] [place] [address] [place] Monocytes/100 WBC (Bld) 7.9 % Normal . [facility] Comment on above: Performed By: #### C UBLD, CMP, CBC #### [facility] [address] [place] [address] [place] Neutrophils (Bld) [#/Vol] 6.9 10*3/uL Normal 1.8-7.7 [facility] Comment on above: Performed By: #### C UBLD, CMP, CBC #### [facility] [address] [place] [address] [place] Neutrophils/100 WBC (Bld) 80.2 % Normal . [facility] Comment on above: Performed By: #### C UBLD, CMP, CBC #### [facility] [address] [place] [address] [place] NRBC% 0.1 /100{WBC} Normal 0-0.5 [facility] Comment on above: Performed By: #### C UBLD, CMP, CBC #### [facility] [address] [place] [address] [place] Platelet mean volume (Bld) [Entitic vol] 7.6 fL Normal 6.3-10.7 [facility] Comment on above: Performed By: #### C UBLD, CMP, CBC #### [facility] [address] [place] [address] [place] Platelets (Bld) [#/Vol] 215 10*3/uL Normal 150-450 [facility] Comment on above: Performed By: #### C UBLD, CMP, CBC #### [facility] [address] [place] [address] [place] RBC (Bld) [#/Vol] 4.39 10*6/uL Normal 3.60-5.00 [facility] Comment on above: Performed By: #### C UBLD, CMP, CBC #### [address] WBC (Bld) [#/Vol] 8.6 10*3/uL Normal 3.8-11.6 [facility] Comment on above: Performed By: #### C UBLD, CMP, CBC #### [address] Comprehensive Metabolic Pane jeremy 10-12-2022 Albumin [Mass/Vol] 3.5 g/dL Normal 3.5-5.7 [facility] Comment on above: Performed By: #### C UBLD, CMP, CBC #### [address] Albumin/Globulin [Mass ratio] 1.4 {ratio} Normal [facility] Comment on above: Performed By: #### C UBLD, CMP, CBC #### [address] ALP [Catalytic activity/Vol] 67 U/L Normal 34-104 [facility] Comment on above: Performed By: #### C UBLD, CMP, CBC #### [address] ALT [Catalytic activity/Vol] 20 U/L Normal 7-52 [facility] Comment on above: Performed By: #### C UBLD, CMP, CBC #### [address] Anion gap [Moles/Vol] 11.1 mmol/L Normal 6.0-15.0 [facility] Comment on above: Performed By: #### C UBLD, CMP, CBC #### [address] AST [Catalytic activity/Vol] 23 U/L Normal 13-39 [facility] Comment on above: Performed By: #### C UBLD, CMP, CBC #### [address] Bilirubin [Mass/Vol] 0.4 mg/dL Normal 0.3-1.0 [facility] Comment on above: Performed By: #### C UBLD, CMP, CBC #### [facility] [address] Calcium [Mass/Vol] 8.4 mg/dL Low 8.6-10.3 [facility] Comment on above: Performed By: #### C UBLD, CMP, CBC #### [facility] [address] Chloride [Moles/Vol] 105 mmol/L Normal 98-107 [facility] Comment on above: Performed By: #### C UBLD, CMP, CBC #### [facility] [address] CO2 [Moles/Vol] 28.5 mmol/L Normal 21.0-31.0 [facility] Comment on above: Performed By: #### C UBLD, CMP, CBC #### [facility] [address] Creatinine [Mass/Vol] 0.69 mg/dL Normal 0.60-1.20 [facility] Comment on above: Performed By: #### C UBLD, CMP, CBC #### [facility] [address] Creatinine Clr Calc Pharmacy 101.06 [facility] Comment on above: Performed By: #### C UBLD, CMP, CBC #### [facility] [address] [place] [address] [place] GFR/1.73 sq M.predicted MDRD (S/P/Bld) [Vol rate/Area] mL/min/{1.73_m2} [facility] Comment on above: Performed By: #### C UBLD, CMP, CBC #### [facility] [address] Globulin (S) [Mass/Vol] 2.5 g/dL [facility] Comment on above: Performed By: #### C UBLD, CMP, CBC #### [facility] [address] [place] [address] [place] Glucose [Mass/Vol] 92 mg/dL Normal 70-100 [facility] Comment on above: Result Comment: [facility] Glucose Reference Range is dependent on time and content of last meal. Glucose of more than 200 mg/dL in a nonstressed, ambulatory subject supports the diagnosis of Diabetes Mellitus. ADA recommended reference range Performed By: #### C UBLD, CMP, CBC #### [facility] [address] Potassium [Moles/Vol] 3.6 mmol/L Normal 3.5-5.1 [facility] Comment on above: Performed By: #### C UBLD, CMP, CBC #### [facility] [address] Protein [Mass/Vol] 6.0 g/dL Low 6.4-8.9 [facility] Comment on above: Performed By: #### C UBLD, CMP, CBC #### [facility] [address] [place] [address] [place] Sodium [Moles/Vol] 141 mmol/L Normal 136-145 [facility] Comment on above: Performed By: #### C UBLD, CMP, CBC #### [facility] [address] Urea nitrogen [Mass/Vol] 20 mg/dL Normal 7-25 [facility] Comment on above: Performed By: #### C UBLD, CMP, CBC #### [facility] [address] Creatinine [Mass/volume] in Serum or PlasmaOrdered By: Gerald Theodore on 10-12-2022 Creatinine [Mass/Vol] 0.69 mg/dL 0.60-1.20 [facility] Eosinophils Auto (Bld) [#/Vo l]Ordered By: Gerald Theodore on 10-12-2022 Eosinophils (Bld) [#/Vol] 0.2 10*3/uL 0.0-0.45 [facility] Eosinophils/100 WBC Auto (Bl d)Ordered By: Gerald Theodore on 10-12-2022 Eosinophils/100 WBC (Bld) 1.8 % . [facility] Erythrocyte Sedimentation Ra emery 10-12-2022 ESR (Bld) [Velocity] 25 mm/h Normal 0-29 [facility] Comment on above: Result Comment: PERF ORMED BY: [facility] [address] [place] [address] PATHOLOGIST FARMWORKER FRUIT IAN ACE M.D. Performed By: #### C UBLD, CMP, CBC #### [facility] [address] Erythrocyte distribution wid th Auto (RBC) [Ratio]Ordered By: Gerald Theodore on 10-12-2022 Erythrocyte distribution width (RBC) [Ratio] 16.3 % 11.9-15.3 [facility] Erythrocyte sedimentation ra te by Photometric methodOrdered By: Gerald Theodore on 10-12-2022 ESR Photometric method (Bld) [Velocity] 25 mm/hr 0-29 [facility] Globulin Calc (S) [Mass/Vol] Ordered By: Gerald Theodore on 10-12-2022 Globulin (S) [Mass/Vol] 2.5 g/dL [facility] Glucose [Mass/volume] in Ser um or PlasmaOrdered By: Gerald Theodore on 10-12-2022 Glucose [Mass/Vol] 92 mg/dL 70-100 [facility] Comment on above: ADA recommended refe rence rangeRandom Glucose Reference Range is dependent on time and content of last meal. Glucose of more than 200 mg/dL in a nonstressed, ambulatory subject supports the diagnosis of Diabetes Mellitus. Hematocrit Auto (Bld) [Volum e fraction]Ordered By: Gerald Theodore on 10-12-2022 Hematocrit (Bld) [Volume fraction] 35.2 % 34.0-46.4 [facility] Hemoglobin [Mass/volume] in BloodOrdered By: Gerald Theodore 10-12-2022 Hemoglobin (Bld) [Mass/Vol] 11.2 g/dL 11.8-15.4 [facility] Lactate [Moles/volume] in Se rum or PlasmaOrdered By: Gerald Theodore on 10-12-2022 Lactate [Moles/Vol] 0.6 mmol/L 0.5-2.2 [facility] Lactic Acidon 10-12-2022 Lactate [Moles/Vol] 0.6 mmol/L Normal 0.5-2.2 [facility] Comment on above: Result Comment: PERF ORMED BY: [place] [address] PATHOLOGIST FARMWORKER FRUIT IAN ACE M.D. Performed By: #### C UBLD, CMP, CBC #### [facility] [address] Leukocytes [#/volume] correc julia for nucleated erythrocytes in Blood by Automated counOrdered By: Gerald Theodore on 10-12-2022 WBC corrected for nucl RBC Auto (Bld) [#/Vol] 8.6 10*3/uL 3.8-11.6 [facility] Lymphocytes Auto (Bld) [#/Vo l]Ordered By: Gerald Theodore on 10-12-2022 Lymphocytes (Bld) [#/Vol] 0.8 10*3/uL 1.00-4.8 [facility] Lymphocytes/100 WBC Auto (Bl d)Ordered By: Gerald Theodore on 10-12-2022 Lymphocytes/100 WBC (Bld) 9.6 % . [facility] MCH Auto (RBC) [Entitic mass ]Ordered By: Gerald Theodore on 10-12-2022 MCH (RBC) [Entitic mass] 25.5 pg 24.7-34.3 [facility] MCHC Auto (RBC) [Mass/Vol]Or dered By: Gerald Theodore on 10-12-2022 MCHC (RBC) [Mass/Vol] 31.8 g/dL 32.0-35.0 [facility] MCV Auto (RBC) [Entitic vol] Ordered By: Gerald Theodore on 10-12-2022 MCV (RBC) [Entitic vol] 80.1 fL 80-100 [facility] Monocyte distribution width [Entitic volume] in Blood by AutomatedOrdered By: Gerald Theodore on 10-12-2022 Monocyte distribution width Auto (Bld) [Entitic vol] 14.89 % 0.00-20.00 [facility] Monocytes Auto (Bld) [#/Vol] Ordered By: Gerald Theodore on 10-12-2022 Monocytes (Bld) [#/Vol] 0.7 10*3/uL 0.0-0.8 [facility] Monocytes/100 WBC Auto (Bld) Ordered By: Gerald Theodore on 10-12-2022 Monocytes/100 WBC (Bld) 7.9 % . [facility] Neutrophils Auto (Bld) [#/Vo l]Ordered By: Gerald Theodore on 10-12-2022 Neutrophils (Bld) [#/Vol] 6.9 10*3/uL 1.8-7.7 [facility] Neutrophils/100 WBC Auto (Bl d)Ordered By: Gerald Theodore on 10-12-2022 Neutrophils/100 WBC (Bld) 80.2 % . [facility] No Panel InformationOrdered By: Gerald Theodore on 10-12-2022 Estimated GFR (CKD-EPI) > 60.0 mL/Min [facility] Pharmacy Creatinine Clearance (Chem 101.06 [facility] Nucleated erythrocytes [Pres ence] in Blood by Automated countOrdered By: Gerald Theodore on 10-12-2022 Nucleated RBC Auto Ql (Bld) 0.1 /100{WBC} 0-0.5 [facility] Platelet mean volume Auto (B ld) [Entitic vol]Ordered By: Gerald Theodore on 10-12-2022 Platelet mean volume (Bld) [Entitic vol] 7.6 fL 6.3-10.7 [facility] Platelets Auto (Bld) [#/Vol] Ordered By: Gerald Theodore on 10-12-2022 Platelets (Bld) [#/Vol] 215 10*3/uL 150-450 [facility] Potassium [Moles/volume] in Serum or PlasmaOrdered By: Gerald Theodore on 10-12-2022 Potassium [Moles/Vol] 3.6 mmol/L 3.5-5.1 [facility] Protein [Mass/volume] in Ser um or PlasmaOrdered By: Gerald Theodore on 10-12-2022 Protein [Mass/Vol] 6.0 g/dL 6.4-8.9 [facility] RBC Auto (Bld) [#/Vol]Ordere d By: Gerald Theodore on 10-12-2022 RBC (Bld) [#/Vol] 4.39 10*6/uL 3.60-5.00 [facility] Serum or plasma albumin/glob ulin mass ratioOrdered By: Gerald Theodore on 10-12-2022 Albumin/Globulin [Mass ratio] 1.4 {ratio} [facility] Serum or plasma anion gap de terminationOrdered By: Gerald Theodore on 10-12-2022 Anion gap [Moles/Vol] 11.1 mmol/L 6.0-15.0 [facility] Sodium [Moles/volume] in Ser um or PlasmaOrdered By: Gerald Theodore on 10-12-2022 Sodium [Moles/Vol] 141 mmol/L 136-145 [facility] Urea nitrogen [Mass/volume] in Serum or PlasmaOrdered By: Gerald Theodore on 10-12-2022 Urea nitrogen [Mass/Vol] 20 mg/dL 7-25 [facility] WBC Auto (Bld) [#/Vol]Ordere d By: Gerald Theodore on 10-12-2022 WBC (Bld) [#/Vol] 8.6 10*3/uL 3.8-11.6 [facility] COVID Quick Testingon 2020 Result Positive [employer] Other Quick Fluon 06-06-2021 FLUAV Ab CF (S) [Titer] Negative [facility] [employer] Other FLUBV Ab CF (S) [Titer] Negative [facility] [employer] Other CNOVon 01-26-2017 CNOV Office Visit (CARDFT) ELIZABETH CESAR ([id number]) 1955 [facility] Time Provider Department01/26/17 10:30 AM CARL TY During your visit today, we recorded the following information about you: Pulse Respiration Blood pressure Weight 71/minute 18/minute 162/82 145.2 kg Height 1.613 Rajesh Ty MD 01/26/2017 10:54 AM [facility] Institute[facility]cf[facility] and Yesy Dickinson Department of Cardiovascular MedicineOUTPATIENT VISIT DATEAugus2016OUTPATIENT VISIT TYPENEW CONSULTATIONPRHAYWOOD REG[facility] MEDICAL CENTERRY CARE PHYSICIAN:Pepe Fermin, [id number] [place] [address] [address]Bgzue: [phone]: [phone] COMPLAINT:Palpitations and shortness of breathHISTORY OF PRESENT ILLNESS:[place] Cesar is a 61 year old female who [facility].History includes morbid obesity, lymphedema, remote [...] shortness of breath she notes yesterday 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 Morbid [...] or concerns.Carl Ty M.D.Marcus DickinsonDepartment of Cardiovascular MedicineSelect Medical Specialty Hospital - Cincinnati Northrt and Vascular Institute[address] [address]Wjmors: [phone] Referring Provider: PEPE FERMIN [[id number]]Allergies As of Date: 01/26/2017(No Known Allergies)Date Reviewed: 01/26/2017Reviewed by: Mario Rodriguez (Eric) ERIC Awad - Fully AssessedReason for Visit: Shortness of Breath [227]Primary Visit Diagnosis:Essential hypertension [I10] Other Visit Diagnoses:Obesity, Class III, BMI 40-49.9 (morbid obesity) (HCC) [E66.01] Tobacco abuse [Z72.0] CHUCKIE (obstructive sleep apnea) [G47.33]Order(s):ECHO [837147] Order #: [id number]: 1 FUTUREProblem List As Of Date 01/26/2017 Noted Resolved Obesity, Class III, BMI >= 40 (morbid obesity) *INVALID FOR*Disposition: Return in about 2 months (around 03/28/2017).Follow-up and Disposition History RecordedEncounter Number: [id number] Status:Closed by CARL TY MD on 01/26/17 Normal [facility] PROGRESSon 01-23-2017 PROGRESS HNO ID: [id number] thor: Carl TySer: (none)Author Type: PhysicianType: Progress NotesFiled: 01/26/2017 10:54 AMNote Text:Heart and Vascular InstituteMcfarland and Yesy Dickinson Department of Cardiovascular MedicineOUTPATIENT VISIT DATEAut 2016OUTPATIENT VISIT TYPENEW CONSULTATIONPRHAYWOOD REGIONAL MEDICAL CENTERRY CARE PHYSICIAN:Pepe Fermin, [place] [facility] [address] [address]Sjbyo: [phone]: [phone] COMPLAINT:Palpitations and shortness of breathHISTORY OF PRESENT ILLNESS:[place]bania Cesar is a 61 year old female who presents today to [facility]. 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 Morbid [...] M.D.Marcus DickinsonDepartment of Cardiovascular MedicineHeart and Vascular InstituteBailey Ville [address] [address], [place] [address]Atmaba: [phone] Normal [facility] Vital Signs Date Time Vital Sign Value Performing Clinician Facility 06-09-2023 14:00-0500 Body height 160.02 cm Abimbola Bran Other [facility] Other 06-09-2023 14:00-0500 Body mass index (BMI) [Ratio] 56.27 kg/m2 Abimbola Bran Other [facility] Other 06-09-2023 14:00-0500 Body temperature 98.6 [degF] Abimbola Bran Other [facility] Other 06-09-2023 14:00-0500 Body weight 144.11 kg Abimbola Bran Other [facility] Other 06-09-2023 14:00-0500 Diastolic blood pressure 72 mm[Hg] Abimbola Bran Other [facility] Other 06-09-2023 14:00-0500 SaO2% (BldA) [Mass fraction] 98 % [facility]imbola Bran Other [facility] Other 06-09-2023 14:00-0500 Systolic blood pressure 112 mm[Hg] Abimbola Bran Other [facility] Other 04-17-2023 12:27-0500 Body temperature 97.4 [degF] DO Abimbola Bran Work Phone: [facility] 04-17-2023 12:27-0500 Diastolic blood pressure 85 mm[Hg] DO Abimbola Bran Work Phone: [facility] 04-17-2023 12:27-0500 Heart rate 77 /min DO Abimbola Bran Work Phone: [facility] 04-17-2023 12:27-0500 Respiratory rate 18 /min DO Abimbola Bran Work Phone: [facility] 04-17-2023 12:27-0500 SaO2% (BldA) [Mass fraction] 98 % DO Abimbola Bran Work Phone: [facility] 04-17-2023 12:27-0500 Systolic blood pressure 131 mm[Hg] DO Abimbola Bran Work Phone: [facility] 04-17-2023 06:00-0500 Body weight 134 kg DO Abimbola Bran Work Phone: [facility] 04-16-2023 23:45-0500 Inhaled oxygen concentration 30 % DO Abimbola Bran Work Phone: [facility] 04-13-2023 15:46-0500 Body height 161.29 cm DO Abimbola Bran Work Phone: [facility] 04-10-2023 14:48-0400 Body temperature 97.5 [degF] DO Abimbola Bran Work Phone: [facility] 04-10-2023 14:48-0400 Diastolic blood pressure 85 mm[Hg] DO Abimbola Bran Work Phone: [facility] 04-10-2023 14:48-0400 Heart rate 86 /min DO Abimbola Bran Work Phone: [facility] 04-10-2023 14:48-0400 Respiratory rate 18 /min DO Abimbola Bran Work Phone: [facility] 04-10-2023 14:48-0400 SaO2% (BldA) [Mass fraction] 98 % DO Abimbola Bran Work Phone: [facility] 04-10-2023 14:48-0400 Systolic blood pressure 136 mm[Hg] DO Abimbola Bran Work Phone: [facility] 04-10-2023 10:11-0400 Body height 161.29 cm DO Abimbola Bran Work Phone: [facility] 04-10-2023 10:11-0400 Body weight 132.2 kg DO Abimbola Bran Work Phone: [facility] 04-07-2023 08:11-0400 Body temperature 97.1 [degF] DO Abimbola Bran Work Phone: [facility] 04-07-2023 08:11-0400 Diastolic blood pressure 95 mm[Hg] DO Abimbola Bran Work Phone: [facility] 04-07-2023 08:11-0400 Heart rate 86 /min DO Abimbola Bran Work Phone: [facility] 04-07-2023 08:11-0400 Respiratory rate 18 /min DO Abimbola Bran Work Phone: [facility] 04-07-2023 08:11-0400 SaO2% (BldA) [Mass fraction] 99 % DO Abimbola Yina Work Phone: [facility] 04-07-2023 08:11-0400 Systolic blood pressure 183 mm[Hg] DO Abimbola Bran Work Phone: [facility] 04-07-2023 08:08-0400 Body height 160.02 cm DO Abimbola Bran Work Phone: [facility] 04-07-2023 08:08-0400 Body weight 135.62 kg DO Abimbola Bran Work Phone: [facility] 02-24-2023 08:00-0400 Body height 160.02 cm Abimbola Bran Other [facility] Other 02-24-2023 08:00-0400 Body mass index (BMI) [Ratio] 54.02 kg/m2 Abimbola Bran Other [facility] Other 02-24-2023 08:00-0400 Body weight 138.35 kg Abimbola Bran Other [facility] Other 02-24-2023 08:00-0400 Diastolic blood pressure 82 mm[Hg] Abimbola Bran Other [facility] Other 02-24-2023 08:00-0400 Respiratory rate 18 /min Abimbola Bran Other [facility] Other 02-24-2023 08:00-0400 SaO2% (BldA) [Mass fraction] 97 % Abimbola Bran Other [facility] Other 02-24-2023 08:00-0400 Systolic blood pressure 122 mm[Hg] Abimbola Bran Other [facility] Other 02-03-2023 10:36-0400 Body height 160.02 cm PHYSICIAN NO [facility] 02-03-2023 10:36-0400 Body mass index (BMI) [Ratio] 59.3 kg/m2 PHYSICIAN NO [facility] 02-03-2023 10:36-0400 Body weight 151.95 kg PHYSICIAN [facility] 02-03-2023 09:30-0400 Body temperature 97.3 [degF] PHYSICIAN [facility] 02-03-2023 09:30-0400 Diastolic blood pressure 79 mm[Hg] PHYSICIAN [facility] 02-03-2023 09:30-0400 Heart rate 76 /min PHYSICIAN NO [facility] 02-03-2023 09:30-0400 Respiratory rate 20 /min PHYSICIAN [facility] 02-03-2023 09:30-0400 Systolic blood pressure 175 mm[Hg] PHYSICIAN NO [facility] 01-19-2023 08:30-0400 Body height 160.02 cm Abimbola Bran Other [facility] Other 01-19-2023 08:30-0400 Body mass index (BMI) [Ratio] 59.42 kg/m2 Abimbola Bran Other [facility] Other 01-19-2023 08:30-0400 Body temperature 98.3 [degF] Abimbolaconnor Bran Other [facility] Other 01-19-2023 08:30-0400 Body weight 152.18 kg Abimbolaconnor Bran Other [facility] Other 01-19-2023 08:30-0400 Diastolic blood pressure 76 mm[Hg] Abimbola Bran Other [facility] Other 01-19-2023 08:30-0400 Respiratory rate 18 /min Abimbolaconnor Bran Other [facility] Other 01-19-2023 08:30-0400 SaO2% (BldA) [Mass fraction] 97 % Abimbola Bran Other [facility] Other 01-19-2023 08:30-0400 Systolic blood pressure 120 mm[Hg] Abimbola Bran Other [facility] Other 12-31-2022 15:03-0400 Diastolic blood pressure 76 mm[Hg] PHYSICIAN NO [facility] 12-31-2022 15:03-0400 Heart rate 86 /min PHYSICIAN [facility] 12-31-2022 15:03-0400 Respiratory rate 20 /min PHYSICIAN [facility] 12-31-2022 15:03-0400 SaO2% (BldA) [Mass fraction] 96 % PHYSICIAN NO [facility] 12-31-2022 15:03-0400 Systolic blood pressure 166 mm[Hg] PHYSICIAN [facility] 12-31-2022 11:29-0400 Body height 160.02 cm PHYSICIAN [facility] 12-31-2022 11:29-0400 Body temperature 97.4 [degF] PHYSICIAN [facility] 12-31-2022 11:29-0400 Body weight 145.14 kg PHYSICIAN [facility] 12-29-2022 13:45-0400 Body height 160.02 cm Laith Carlson Other [facility] Other 12-29-2022 13:45-0400 Body mass index (BMI) [Ratio] 56.68 kg/m2 Laith Carlson Other [facility] Other 12-29-2022 13:45-0400 Body temperature 98.4 [degF] Laith Carlson Other [facility] Other 12-29-2022 13:45-0400 Body weight 145.15 kg Laith Carlson Other [facility] Other 12-29-2022 13:45-0400 Diastolic blood pressure 78 mm[Hg] Laith Carlson Other [facility] Other 12-29-2022 13:45-0400 Systolic blood pressure 153 mm[Hg] Laith Carlson Other [facility] Other 12-14-2022 01:34-0400 Diastolic blood pressure 80 mm[Hg] PHYSICIAN NO [facility] 12-14-2022 01:34-0400 Heart rate 75 /min PHYSICIAN NO [facility] 12-14-2022 01:34-0400 Respiratory rate 18 /min PHYSICIAN [facility] 12-14-2022 01:34-0400 SaO2% (BldA) [Mass fraction] 98 % PHYSICIAN [facility] 12-14-2022 01:34-0400 Systolic blood pressure 165 mm[Hg] PHYSICIAN [facility] 12-13-2022 23:53-0400 Body temperature 97.7 [degF] PHYSICIAN [facility] 12-13-2022 21:24-0400 Body height 160.02 cm PHYSICIAN [facility] 12-13-2022 21:24-0400 Body weight 153.5 kg PHYSICIAN [facility] 12-08-2022 08:18-0400 Diastolic blood pressure 53 mm[Hg] PHYSICIAN [facility] 12-08-2022 08:18-0400 Heart rate 56 /min PHYSICIAN [facility] 12-08-2022 08:18-0400 Systolic blood pressure 101 mm[Hg] PHYSICIAN [facility] 12-05-2022 08:22-0400 Body temperature 97.7 [degF] PHYSICIAN [facility] 12-02-2022 09:00-0400 Respiratory rate 18 /min PHYSICIAN [facility] 12-02-2022 09:00-0400 SaO2% (BldA) [Mass fraction] 96 % PHYSICIAN [facility] 12-01-2022 20:48-0400 Diastolic blood pressure 66 mm[Hg] PHYSICIAN [facility] 12-01-2022 20:48-0400 Heart rate 72 /min PHYSICIAN [facility] 12-01-2022 20:48-0400 Respiratory rate 21 /min PHYSICIAN [facility] 12-01-2022 20:48-0400 SaO2% (BldA) [Mass fraction] 97 % PHYSICIAN [facility] 12-01-2022 20:48-0400 Systolic blood pressure 137 mm[Hg] PHYSICIAN [facility] 12-01-2022 18:20-0400 Body height 160.02 cm PHYSICIAN [facility] 12-01-2022 18:20-0400 Body temperature 98.1 [degF] PHYSICIAN [facility] 12-01-2022 18:20-0400 Body weight 151.2 kg PHYSICIAN [facility] 11-24-2022 08:43-0400 Body height 160.02 cm PHYSICIAN [facility] 11-24-2022 08:43-0400 Body mass index (BMI) [Ratio] 58.4 kg/m2 PHYSICIAN [facility] 11-24-2022 08:43-0400 Body weight 149.68 kg PHYSICIAN [facility] 11-24-2022 08:27-0400 Body temperature 98.1 [degF] PHYSICIAN [facility] 11-24-2022 08:27-0400 Diastolic blood pressure 97 mm[Hg] PHYSICIAN [facility] 11-24-2022 08:27-0400 Heart rate 78 /min PHYSICIAN [facility] 11-24-2022 08:27-0400 Respiratory rate 24 /min PHYSICIAN [facility] 11-24-2022 08:27-0400 Systolic blood pressure 159 mm[Hg] PHYSICIAN [facility] 11-06-2022 10:30-0400 Body temperature 97.5 [degF] PHYSICIAN [facility] 11-06-2022 10:30-0400 Diastolic blood pressure 80 mm[Hg] PHYSICIAN NO [facility] 11-06-2022 10:30-0400 Heart rate 71 /min PHYSICIAN NO [facility] 11-06-2022 10:30-0400 Systolic blood pressure 146 mm[Hg] PHYSICIAN NO [facility] 11-05-2022 14:05-0400 Diastolic blood pressure 82 mm[Hg] PHYSICIAN NO [facility] 11-05-2022 14:05-0400 Heart rate 90 /min PHYSICIAN NO [facility] 11-05-2022 14:05-0400 Respiratory rate 18 /min PHYSICIAN NO [facility] 11-05-2022 14:05-0400 SaO2% (BldA) [Mass fraction] 92 % PHYSICIAN NO [facility] 11-05-2022 14:05-0400 Systolic blood pressure 180 mm[Hg] PHYSICIAN NO [facility] 11-05-2022 11:46-0400 Body height 161.29 cm PHYSICIAN NO [facility] 11-05-2022 11:46-0400 Body temperature 98 [degF] PHYSICIAN NO [facility] 11-05-2022 11:46-0400 Body weight 147.65 kg PHYSICIAN NO [facility] 10-30-2022 15:13-0400 Body temperature 98.6 [degF] PHYSICIAN NO [facility] 10-30-2022 15:13-0400 Diastolic blood pressure 95 mm[Hg] PHYSICIAN NO [facility] 10-30-2022 15:13-0400 Heart rate 86 /min PHYSICIAN NO [facility] 10-30-2022 15:13-0400 Respiratory rate 20 /min PHYSICIAN NO [facility] 10-30-2022 15:13-0400 Systolic blood pressure 186 mm[Hg] PHYSICIAN NO [facility] 10-21-2022 11:17-0400 Body height 160.02 cm PHYSICIAN NO [facility] 10-21-2022 11:17-0400 Body mass index (BMI) [Ratio] 58.4 kg/m2 PHYSICIAN NO [facility] 10-21-2022 11:17-0400 Body weight 149.68 kg PHYSICIAN NO [facility] 10-17-2022 20:25-0400 Body temperature 97.9 [degF] PHYSICIAN NO [facility] 10-17-2022 20:25-0400 Diastolic blood pressure 91 mm[Hg] PHYSICIAN NO [facility] 10-17-2022 20:25-0400 Heart rate 70 /min PHYSICIAN NO [facility] 10-17-2022 20:25-0400 Respiratory rate 17 /min PHYSICIAN NO [facility] 10-17-2022 20:25-0400 SaO2% (BldA) [Mass fraction] 95 % PHYSICIAN NO [facility] 10-17-2022 20:25-0400 Systolic blood pressure 165 mm[Hg] PHYSICIAN NO [facility] 10-12-2022 19:31-0400 Diastolic blood pressure 78 mm[Hg] PHYSICIAN NO [facility] 10-12-2022 19:31-0400 Heart rate 80 /min PHYSICIAN NO [facility] 10-12-2022 19:31-0400 Respiratory rate 18 /min PHYSICIAN NO [facility] 10-12-2022 19:31-0400 SaO2% (BldA) [Mass fraction] 98 % PHYSICIAN NO [facility] 10-12-2022 19:31-0400 Systolic blood pressure 138 mm[Hg] PHYSICIAN NO [facility] 10-12-2022 17:48-0400 Body height 160.02 cm PHYSICIAN NO [facility] 10-12-2022 17:48-0400 Body temperature 98.7 [degF] PHYSICIAN NO [facility] 10-12-2022 17:48-0400 Body weight 149.68 kg PHYSICIAN NO [facility] 06-06-2021 18:30-0500 Body height 160.02 cm Shayla Ginty Other [facility] Other 06-06-2021 18:30-0500 Body mass index (BMI) [Ratio] 51.37 kg/m2 Shayla Ginty Other [facility] Other 06-06-2021 18:30-0500 Body temperature 97.2 [degF] Shayla Ginty Other [facility] Other 06-06-2021 18:30-0500 Body weight 131.54 kg Shayla Ginty Other [facility] Other 06-06-2021 18:30-0500 Respiratory rate 18 /min Shayla Ginty Other [facility] Other 06-06-2021 18:30-0500 SaO2% (BldA) [Mass fraction] 93 % Shayla Ginty Other [facility] Other Encounters Encounter Date Encounter Type Care Provider Facility Start: 07-07-2023 End: 07-07-2023 ambulatory Abimbola Bran Other [facility] Other Start: 07-07-2023 Telephone encounter Abimbola [facility] Start: 06-15-2023 End: 06-15-2023 ambulatory Abimbolamichael Bran Other [facility] Other Start: 06-15-2023 Telephone encounter Abimbola PAND[facility] Start: 06-09-2023 End: 06-09-2023 ambulatory Abimbolamichael Bran Other [facility] Other Start: 06-09-2023 Office outpatient visit 25 minutes Abimbolaconnor Bran [facility] [place] Start: 06-09-2023 Telephone encounter Abimbola Bran [facility] [place] Start: 04-20-2023 End: 04-20-2023 ambulatory Abimbola Bran Other [facility] Other Start: 04-20-2023 Telephone encounter Abimbola Bran [facility] Start: 04-10-2023 End: 04-17-2023 Evaluation and management of inpatient Laith Robyn Facility:[facility] Start: 04-10-2023 End: 04-17-2023 Evaluation and management of inpatient DO Abimbola Bran Work Phone: [facility] [place] [facility] Work Phone: Start: 04-07-2023 End: 04-07-2023 Emergency department patient visit Jhonatan Crowell Facility:[facility] Start: 04-07-2023 End: 04-07-2023 Emergency department patient visit DO Abimbola Bran Work Phone: [facility]-Emergency Room Work Phone: Start: 02-24-2023 End: 02-24-2023 ambulatory Abimbola Bran Other [facility] Other Start: 02-24-2023 Office outpatient visit 15 minutes Abimbola Bran [facility] [place] Start: 02-03-2023 End: 02-03-2023 ambulatory Abimbola Bran Facility:[facility] Start: 02-03-2023 End: 02-03-2023 ambulatory PHYSICIAN NO [facility] Work Phone: Start: 02-03-2023 End: 02-03-2023 Discharged Recurring PHYSICIAN NO [facility] [place] Work Phone: Start: 02-03-2023 Registered Recurring PHYSICIAN NO [facility] [place] Work Phone: Start: 02-02-2023 End: 02-03-2023 ambulatory Laith Carlson Facility:[facility] Start: 02-02-2023 End: 02-02-2023 ambulatory PHYSICIAN NO [facility] Work Phone: Start: 02-02-2023 End: 02-02-2023 Discharged Recurring PHYSICIAN NO [facility]-Infusion Therapy - O/P Work Phone: Start: 01-27-2023 End: 01-27-2023 ambulatory Abimbola Bran Other [facility] Other Start: 01-27-2023 Telephone encounter Abimbola Bran [facility] [place] Start: 01-20-2023 End: 01-20-2023 ambulatory Laith Carlson Other [facility] Other Start: 01-20-2023 Telephone encounter Laith Carlson [facility] Start: 01-19-2023 End: 01-19-2023 ambulatory Abimbola Bran Other [facility] Other Start: 01-19-2023 Office outpatient ne w 45 minutes Abimbola PANDYA [facility] Start: 01-06-2023 End: 01-06-2023 ambulatory Laith Carlson Other [facility] Other Start: 01-06-2023 Telephone encounter Laith Carlson [facility] Start: 12-31-2022 End: 12-31-2022 ambulatory Abimbola Bran Other [facility] Other Start: 12-31-2022 Telephone encounter Abimbola Bran [facility] [place] Start: 12-31-2022 End: 12-31-2022 Emergency department patient visit Abimbola Michael Yina Facility:[facility] Start: 12-31-2022 End: 12-31-2022 Emergency department patient visit PHYSICIAN NO [facility]-Emergency Room Work Phone: Start: 12-29-2022 End: 12-29-2022 ambulatory Laith Carlson Other [facility] Other Start: 12-29-2022 Office outpatient ne w 45 minutes Laith PANDYA Infectious Disease Start: 12-19-2022 End: 12-19-2022 ambulatory PHYSICIAN NO FAMILY Facility:[facility] Start: 12-19-2022 End: 12-19-2022 Discharged Recurring PHYSICIAN NO [facility] Start: 12-15-2022 End: 12-15-2022 ambulatory Abimbola Bran Other [facility] Other Start: 12-15-2022 Telephone encounter Abimbola Bran [facility] [place] Start: 12-13-2022 End: 12-14-2022 Emergency department patient visit Abimbola Michael Yina Facility:[facility] Start: 12-13-2022 End: 12-14-2022 Emergency department patient visit PHYSICIAN NO [facility]-Emergency Room Work Phone: Start: 12-08-2022 End: 12-09-2022 ambulatory Laith Warner Facility:[facility] Start: 12-08-2022 End: 12-08-2022 Discharged Recurring PHYSICIAN NO [facility]-Infusion Therapy - O/P Work Phone: Start: 12-05-2022 Registered Recurring PHYSICIAN NO [facility] [address] Start: 12-01-2022 End: 12-01-2022 Emergency department patient visit Laith Warner Facility:[facility] Start: 12-01-2022 End: 12-01-2022 Emergency department patient visit PHYSICIAN NO [facility]-Emergency Room Work Phone: Start: 11-28-2022 Registered Recurring PHYSICIAN NO [facility] Start: 11-24-2022 End: 11-24-2022 ambulatory Evelyn Leon Facility:[facility] Start: 11-24-2022 End: 11-24-2022 Discharged Recurring PHYSICIAN NO [facility] [place] Work Phone: Start: 11-24-2022 Registered Recurring PHYSICIAN NO [facility] [place] Work Phone: Start: 11-07-2022 End: 11-07-2022 ambulatory PHYSICIAN NO FAMILY Facility:[facility] Start: 11-07-2022 End: 11-07-2022 Discharged Recurring PHYSICIAN NO [facility]-Infusion Therapy - O/P Work Phone: Start: 11-07-2022 Registered Recurring PHYSICIAN NO [facility]-Infusion Therapy - O/P Work Phone: Start: 11-05-2022 Registered Recurring PHYSICIAN NO [facility]-Infusion Therapy - O/P Work Phone: Start: 11-05-2022 End: 11-05-2022 Emergency department patient visit PHYSICIAN NO FAMILY Facility:[facility] Start: 11-05-2022 End: 11-05-2022 Emergency department patient visit PHYSICIAN NO [facility]-Emergency Room Work Phone: Start: 11-05-2022 Registered Recurring PHYSICIAN NO JONATHAN [facility] [address] Start: 10-30-2022 Registered Recurring PHYSICIAN NO [facility] [place] Work Phone: Start: 10-17-2022 End: 10-17-2022 ambulatory Gerald Theodore Facility:[facility] Start: 10-17-2022 End: 10-17-2022 ambulatory PHYSICIAN NO [facility] Work Phone: Start: 10-17-2022 End: 10-17-2022 Discharged Recurring PHYSICIAN NO [facility]-Infusion Therapy - O/P Work Phone: Start: 10-17-2022 Registered Recurring PHYSICIAN NO [facility]-Infusion Therapy - O/P Work Phone: Start: 10-12-2022 End: 10-12-2022 Emergency department patient visit Gerald Theodore Facility:[facility] Start: 10-12-2022 End: 10-12-2022 Emergency department patient visit PHYSICIAN NO [facility]-Emergency Room Work Phone: Start: 06-06-2021 End: 06-06-2021 ambulatory Shayla Motta Other [facility] Other Start: 06-06-2021 Office outpatient visit 15 minutes Shayla Motta [facility] [place] Start: 01-26-2017 End: 02-03-2017 Ambulatory CAR[facility] Procedures Date Procedure Procedure Detail Performing Clinician Start: 04-15-2023 Insertion of periphe rally inserted central catheter DO Abimbola Bran Work Phone: Start: 04-15-2023 Ultrasonography of abdomen DO Abimbola Bran Work Phone: Start: 04-13-2023 Duplex scan of lower limb veins DO Abimbola Bran Work Phone: Start: 04-11-2023 Blood culture for ba cteria, including anaerobic screen DO Abimbola [employer] Work Phone: Start: 04-11-2023 Plain chest X-ray DO Gl oria Bran Work Phone: Start: 04-10-2023 Urine culture DO Abimbola [employer] Work Phone: Start: 04-07-2023 Plain X-ray of bilat eral tibia and bilateral fibula DO Abimbola [employer] Work Phone: Start: 12-13-2022 Aerobic microbial culture [...] Date Care Activity Detail Author Start: 04-16-2023 [facility] Start: 04-15-2023 Insertion of peripherally inserted central catheter [facility] Start: 04-13-2023 Referral to infectio us diseases physician [facility] Start: 04-10-2023 Hospital admission [facility] Start: 04-10-2023 [facility] Start: 04-10-2023 Aerobic microbial culture Superficial Wound Culture [facility] Start: 04-10-2023 Bacteria identified in Blood by Culture [facility] Start: 04-10-2023 Bacteria identified in Urine by Culture [facility] Start: 12-13-2022 Superficial Wound Culture Superficial Wound Culture [facility] Start: 12-01-2022 Bacteria identified in Blood by Culture [facility] Start: 11-05-2022 Bacteria identified in Blood by Culture [facility] Start: 10-12-2022 Bacteria identified in Blood by Culture [facility] Bacteria identified in Unspecified specimen by Aerobe culture [facility] Blood chemistry [facility] Patient Education [facility] Work Phone: Patient referral [facility] Work Phone: Immunizations Immunization Date Immunization Notes Care Provider Jonathan rowland 01-19-2023 Prevnar 20 Abimbola Bran Other [employer] Other NEGATED: Highlighted row has not occurred!01-19-2023 influenza, seasonal, injectable Patient Objection Abimbola Bran Other [employer] Other Payers Date Payer Category Payer Unknown [id number] 2023 Unknown [id number] 2022 Unknown [id number] 2022 Medicare [id number] 2022 Self-pay [id number] 2022 Unknown [id number] 2015 Unknown Brenda BC/BS BRIANNA [id number] 2 [id number] Unknown [id number] Unknown [id number] Unknown [id number] .. [id number] Unknown [id number] 2.16.8 [id number] Unknown [id number] 2.16.8 40.1.904264.3.579.2.531 Unknown [id number] 2.16.8 40.1.410515.3.579.2.531 Unknown [id number] 2.16.8 40.1.637142.3.579.2.531 Unknown [id number] 2.16.8 40.1.990305.3.579.2.531 Unknown [id number] 2.16.8 40.1.292039.3.579.2.531 Unknown [id number] 2.16.8 40.1.409160.3.579.2.531 Unknown [id number] 2.16.8 40.1.467010.3.579.2.531 Unknown [id number] 2.16.8 40.1.074622.3.579.2.531 Unknown [id number] 2.16.8 40.1.236776.3.579.2.531 Unknown [id number] 2.16.8 40.1.979218.3.579.2.531 Unknown [id number] 2.16.8 40.1.549995.3.579.2.531 Unknown [id number] 2.16.8 40.1.881691.3.579.2.531 Unknown [id number] 2.16.8 40.1.949324.3.579.2.531 Social History Date Type Detail Facility Sex Assigned At [facility] [employer] Other Start: 10-12-2022 End: 04-07-2023 Tobacco smoking status OKIS Never smoked tobacco (finding) [facility] Start: 1955 Sex Assigned At Female F [facility] Start: 11-05-2022 End: 04-13-2023 Tobacco smoking status NHIS Ex-smoker (finding) [facility] Goals Date Patient Goal Desired Activity /State Functional Status Date Assessment Result Facility 04-17-2023 Functional status Patient at Baseline [facility] Work Phone: 04-10-2023 Functional status Patient at Baseline [facility] Work Phone: Mental Status Date Assessment Result Facility 04-17-2023 Cognitive function Cognitive Sta tus Patient at Baseline [facility] Work Phone: 04-10-2023 Cognitive function Cognitive Sta tus Patient at Baseline [facility] Work Phone: Clinical Notes 06-06-2021 to 07-07-2023 Note Date & Type Note Facility 07-07-2023 Evaluation note Encounter Date Diagnosis Assessment Notes Jun, 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 Has significant pain with dressing changes, can [...] of furosemide, would greatly benefit form SCDs. [facility] [employer] Other 11-10-2023 Progress note Author Selvin Bey [facility] April 17, 2023 9:42am Note Date/Time April 17, 2023 9:42am [facility] [address] [place] [address] Hospitalist Progress Note Signed Patient: Albania Cesar MR#: [id number] : 1955 Acct:[id number] Age/Sex: 67 / F Adm Date: 3 Loc: Room: 1E0830-6 Type: ADM IN Attending Dr: Selvin Bey [...] mg 04/16/23 20:26 Bisacodyl 10 Mg Supp.Rect NM 04/15/24 20:25 DAILY PRN Constipation Celecoxib 100 [...] Plan is to discharge patient to the senior living for wound care and intravenous antibiotic for [...] PRN, oxycodone 5 mg Q6H PRN, Tylenol [id number]-zws-necyr. -Continue Celebrex 100 mg twice daily. Patient [...] bypass Patient is moving to [facility] on discharge. IV antibiotics continued to maximize benefit of going to this facility. PICC line ordered and antibiotics switched to ertapenem. Documented By: Selvin Bey MD 04/17/23939 Signed By: <Electronically signed by Selvin Bey MD> 04/17/23941 [facility] Work Phone: 1(512) 611-681311-09-2023 Discharge summary Author Selvin Bey [facility] April 16, 2023 12:03pm Note Date/Time April 16, 2023 1 1:58am [facility] [address] [place] [address] Discharge Summary Signed Patient: Albania Cesar MR#: [id number] : 1955 Acct:[id number] Age/Sex: 67 / F Adm Date: 3 Loc: Room: [address] [place] [address]: Selvin Bey MD Copies to: [...] and treatment. Patient is also following at [place] regarding lymphedema and appears to be getting [...] hospital stay. Patient will be going to [place] usp facility on discharge. PICC line placed and [...] ask her primary care doctor to obtain [facility] record entirely to address abnormalities seen [...] HCV RNA (PCR) IU/mL N/A, HCVRNA PCR copy preparer log10 N/A, Hepatitis C Interp Exam Physical [...] function. Discharge Plan Discharge Plan Patient Disposition: Longterm Facility Activity: No Activity Restriction Diet: Regular [...] TID PRN (Reason: Pain) Other Ambulatory Orders: IMMUNOCHEMIST polysom procedure (Routine) Timeframe: [id number] Location: Determined by Patient Ordered By: Selvin Bey Follow Up: [facility] Central Scheduling [Outside] (Centralized scheduling will [...] signed by Selvin Bey MD> 04/16/23 1203 [facility] Work Phone: 1(357) 928-608011-09-2023 Progress note Author Laith Carlson [facility] April 16, 2023 9:18am Note Date/Time April 16, 2023 9 :15am [facility] [address] [place] [address] Infect. Disease Progress Note Signed Patient: Albania Cesar MR#: [id number] : 1955 Acct:[id number] Age/Sex: 67 / F Adm Date: 3 Loc: Room: [address] [place] [address] Type: ADM IN Attending Dr: Selvin Bey [...] 325 Mg Tablet) 650 mg PO Q8H [facility] Stop: 04/10/24 10:14 Last Admin: 04/16/23 03:21 Dose: 650 mg Celecoxib (Celecoxib 100 Mg Capsule) 100 mg PO BID [facility] Stop: 04/13/24 20:59 Last Admin: 04/16/23 08:04 Dose: 100 mg Enoxaparin Sodium (Enoxaparin 40 Mg/0.4 Ml Syringe) 40 mg SUBCUT Q12HR.10A.10P [facility] Stop: 04/12/24 21:59 Last Admin: 04/15/23 10:23 Dose: 40 mg Hydromorphone HCl (Hydromorphone 1 Mg/Ml Syringe) 0.5 mg IV-PUSH DAILY PRN PRN Reason: Wound dressing Last Admin: 04/15/23 11:38 Dose: 0.5 mg Ertapenem (Invanz) 1 gm in 100 mls @ 200 mls/hr IV Q24H [facility] Last Infusion: 04/15/23 10:53 Dose: Infused Ondansetron [...] 40 Mg Tablet.Dr) 40 mg PO DAILY [facility] Stop: 04/10/24 10:29 Last Admin: 04/16/23 08:04 Dose: 40 mg Potassium Phos/Sodium Phos (Sodium, Potassium Phosphates 1 Each Powd.Pack) 1 each PO TID.PC.HS [facility] Stop: 04/13/24 13:09 Last Admin: 04/16/23 08:04 Dose: 1 each Pregabalin (Pregabalin 50 Mg Capsule) 50 mg PO BID [facility] Stop: 10/12/23 12:14 Last Admin: 04/16/23 08:04 [...] She is post to go to the [place] today. Planning 2 to 3 weeks of [place] ertapenem. Aggressive wound care to be continued. Documented By: Laith Carlson MD 04/16/23912 Signed By: <Electronically signed by MD Laith Carlson> 04/16/23917 [facility] Work Phone: 1(958) 552-141111-08-2023 Progress note Author Selvin Bey [facility] April 15, 2023 12:09pm Note Date/Time April 15, 2023 1 2:09pm [facility] [address] [place] [address] Hospitalist Progress Note Signed Patient: Albania Cesar MR#: [id number] : 1955 Acct:[id number] Age/Sex: 67 / F Adm Date: 3 Loc: Room: [address] [place] [address] Type: ADM IN Attending Dr: Selvin Bey MD Copies to: ~ Date of Service: 04/15/2023 Subjective Subjective Narrative: Ms. Cesar is sitting in her chair when I enter the room. She says she is feeling better today. She is still experiencing pain in her lower extremities bilaterally. She says the Dilaudid has helped with pain. She tells me she is going to [place] usp facility on discharge. She is rating her [...] The patient will be going to a usp facility to facilitate identified infusion and wound [...] PRN, oxycodone 5 mg Q6H PRN, Tylenol drqpen-yrc-iauti. -Continue Celebrex 100 mg twice daily. Patient [...] bypass Patient is moving to [facility] on discharge. IV antibiotics continued to maximize benefit of going to this facility. PICC line ordered and antibiotics switched to ertapenem. Documented By: Selvin Bey MD 04/15/23 1005 Signed By: <Electronically signed by Selvin Bey MD> 04/15/23 1209 [facility] Work Phone: 1(830) 716-160211-08-2023 Hospital Discharge instructions Additional Instructions SNF to [...] 90% -Care to be managed by SNF providers.[facility] Work Phone: 1(194) 602-327911-08-2023 Progress note Author Laith Carlson [facility] April 15, 2023 9:25am Note Date/Time April 15, 2023 9 :16am [facility] [address] [place] [address] Infect. Disease Progress Note Signed Patient: Albania Cesar MR#: [id number] : 1955 Acct:[id number] Age/Sex: 67 / F Adm Date: 3 Loc: 4P Room: 1Y1108-4 Type: ADM IN Attending Dr: Selvin Bey [...] 325 Mg Tablet) 650 mg PO Q8H [facility] Stop: 04/10/24 10:14 Last Admin: 04/15/23 03:39 Dose: 650 mg Celecoxib (Celecoxib 100 Mg Capsule) 100 mg PO BID [facility] Stop: 04/13/24 20:59 Last Admin: 04/15/23 08:24 Dose: 100 mg Enoxaparin Sodium (Enoxaparin 40 Mg/0.4 Ml Syringe) 40 mg SUBCUT Q12HR.10A.10P [facility] Stop: 04/12/24 21:59 Last Admin: 04/14/23 21:19 Dose: 40 mg Hydromorphone HCl (Hydromorphone 1 Mg/Ml Syringe) 0.5 mg IV-PUSH DAILY PRN PRN Reason: Wound dressing Last Admin: 04/14/23 09:24 Dose: 0.5 mg Cefepime HCl (Maxipime) 2 gm in 50 mls @ 100 mls/hr IV Q12H [facility] Last Admin: 04/15/23 05:19 Dose: 100 mls/hr [...] 40 Mg Tablet.Dr) 40 mg PO DAILY [facility] Stop: 04/10/24 10:29 Last Admin: 04/15/23 08:24 Dose: 40 mg Potassium Phos/Sodium Phos (Sodium, Potassium Phosphates 1 Each Powd.Pack) 1 each PO TID.PC.HS [facility] Stop: 04/13/24 13:09 Last Admin: 04/15/23 08:24 [...] patient tells me she is going to [place] for ongoing usp facility care which is a significant improvement [...] <Electronically signed by MD Laith Carlson> 04/15/23924 [facility] Work Phone: 1(565) [phone] Progress note Author Selvin Bey [facility] April 14, 2023 1:12pm Note Date/Time April 14, 2023 1 :13pm [facility] [address] [place] [address] Hospitalist Progress Note Signed Patient: Albania Cesar MR#: [id number] : 1955 Acct:[id number] Age/Sex: 67 / F Adm Date: 3 Loc: Room: [address] [place] [address] Type: ADM IN Attending Dr: Selvin Bey [...] as needed oxycodone 5 mg Q6H, Tylenol ueewia-dia-zhrut. -Added Celebrex 100 twice daily. Hypokalemia, hypophosphatemia [...] <Electronically signed by Selvin Bey MD> 04/14/23 [facility] Work Phone: 1(390) 219-114111-07-2023 Progress note Author Laith Carlson [facility] April 14, 2023 9:31am Note Date/Time April 14, 2023 9 :31am [facility] [address] [place] [address] Infect. Disease Progress Note Signed Patient: Albania Cesar MR#: [id number] : 1955 Acct:[id number] Age/Sex: 67 / F Adm Date: 3 Loc: 4 Room: 0Y2176-7 Type: ADM IN Attending Dr: Selvin Bey [...] 325 Mg Tablet) 650 mg PO Q8H [facility] Stop: 04/10/24 10:14 Last Admin: 04/14/23 03:21 Dose: 650 mg Enoxaparin Sodium (Enoxaparin 40 Mg/0.4 Ml Syringe) 40 mg SUBCUT Q12HR.10A.10P [facility] Stop: 04/12/24 21:59 Last Admin: 04/14/23 00:07 Dose: 40 mg Hydromorphone HCl (Hydromorphone 1 Mg/Ml Syringe) 0.5 mg IV-PUSH DAILY PRN PRN Reason: Wound dressing Last Admin: 04/14/23 09:24 Dose: 0.5 mg Cefepime HCl (Maxipime) 2 gm in 50 mls @ 100 mls/hr IV Q12H [facility] Last Admin: 04/14/23 05:18 Dose: 100 mls/hr Vancomycin HCl 1.5 gm/ (Dextrose) 530 mls @ 353.333 mls/hr IV Q24H [facility] Stop: 04/14/24 00:59 Ondansetron HCl (Ondansetron Odt 4 Mg Tab.Rapdis) 4 mg PO Q4HR PRN PRN Reason: Nausea And Vomiting Stop: 04/12/24 21:45 Last Admin: 04/13/23 22:09 Dose: 4 mg Oxycodone HCl (Oxycodone Ir 5 Mg Tablet) 5 mg PO Q6HR PRN PRN Reason: Moderate Pain Last Admin: 04/14/23 03:21 Dose: 5 mg Pantoprazole Sodium (Pantoprazole 40 Mg Tablet.Dr) 40 mg PO DAILY [facility] Stop: 04/10/24 10:29 Last Admin: 04/14/23 08:13 [...] <Electronically signed by MD Laith Carlson> 04/14/2331 [facility] Work Phone: 1(573) 906-754111-06-2023 Consult note Author Laith Carlson [facility] April 13, 2023 1:05pm Note Date/Time April 13, 2023 1 :05pm [facility] [address] [place] [address] Infect. Disease Consult Note Signed Patient: Albania Cesar MR#: [id number] : 1955 Acct:[id number] Age/Sex: 67 / F Adm Date: 3 Loc: Room: [address] [place] [address] Type: ADM IN Attending Dr: Selvin Bey [...] initially for. She also did follow-up with [place] [facility] and had 2-3 veins ligated/removed. [...] negative unless noted below or in HPI [facility] Medical History (Updated 04/12/23 @ 09:39 by [...] 50 mls @ 100 mls/hr IV Q12H [facility] Last Admin: 04/13/23 05:31 Dose: 100 mls/hr [...] / 100 @ 100 mls/hr IV Q12H [facility] Rx#: [id number] Vancomycin 1.75 gm In Dextrose 500 / 500 5 % in Water 500 ml @ 285.714 mls/hr IV Q24H [facility] Rx#:[id number] Oral 300 / 800 250 / 250 [...] follow-up with the vein specialist down in [place] who what sounds to be did some [...] <Electronically signed by MD Laith Carlson> 04/13/23 5266 [facility] Work Phone: 1(229) 166-427211-06-2023 Progress note Author Selvin Bey [facility] April 13, 2023 12:36pm Note Date/Time April 13, 2023 1 2:36pm [facility] [address] [place] [address] Hospitalist Progress Note Signed Patient: Albania Cesar MR#: [id number] : 1955 Acct:[id number] Age/Sex: 67 / F Adm Date: 3 Loc: Room: [id number] Type: ADM IN Attending Dr: Selvin Bey [...] oxycodone 5 mg Q6H, Tylenol and Voltaren kkydnd-qvn-eqlbc. ALFREDO-improving -BUN elevated to 43, Cr 1.21 [...] discharge Documented By: Selvin Bey MD 04/13/23 5833 Signed By: <Electronically signed by Selvin Bey MD> 04/13/23 1236 [facility] Work Phone: 1(696) 886-388811-05-2023 Consult note Author Mario Mayorga [facility] April 12, 2023 1:22pm Note Date/Time April 12, 2023 9 :40am [facility] [address] [place] [address] Pulmonology Consult Note Signed Patient: Albania Cesar MR#: [id number] : 1955 Acct:[id number] Age/Sex: 67 / F Adm Date: 3 Loc: Room: [address] [place] [address] Type: ADM IN Attending Dr: Malorie Nathan [...] and had been treated with autotitratingCPAP of [id number]. Review of Systems Review of Systems Unobtainable due to mental status [facility] Medical History (Updated 04/12/23 @ 09:39 by [...] support. Documented By: Mario Mayorga MD 3 [id number] Signed By: <Electronically signed by MD Mario Mayorga> 04/12/23 7253 [facility] Work Phone: 1(371) 604-740911-05-2023 Progress note Author Malorie Nathan [facility] April 12, 2023 1:05pm Note Date/Time April 12, 2023 1 :05pm [facility] [address] [place] [address] Hospitalist Progress Note Signed Patient: Albania Cesar MR#: [id number] : 1955 Acct:[id number] Age/Sex: 67 / F Adm Date: 3 Loc: Room: [address] [place] [address] Type: ADM IN Attending Dr: Malorie Nathan [...] mg every 6 hours, Tylenol and Voltaren qtzutc-vxp-rgpes ALFREDO Kidney function improved, continue to monitor [...] signed by Malorie Nathan MD> 04/12/23 1305 [facility] Work Phone: 1(656) 383-318211-04-2023 Progress note Author Malorie Nathan [facility] April 11, 2023 12:16pm Note Date/Time April 11, 2023 1 2:16pm [facility] [address] [place] [address] Hospitalist Progress Note Signed Patient: Albania Cesar MR#: [id number] : 1955 Acct:[id number] Age/Sex: 67 / F Adm Date: 3 Loc: Room: [address] [place] [address] Type: ADM IN Attending Dr: Malorie Nathan [...] 6 hours as needed, Tylenol and Voltaren pxnvdy-sht-nvotn ALFREDO -BUN elevated to 43, Cr 1.21 [...] <Electronically signed by Malorie Nathan MD> 04/11/[address] [place] [address] Ctr Work Phone: 1(693) 376-716111-04-2023 Progress note Author Laith Monte [facility] April 11, 2023 8:54am Note Date/Time April 11, 2023 8 :55am [facility] [address] [place] [address] Event Note Signed Patient: Albania Cesar MR#: [id number] : 1955 Acct:[id number] Age/Sex: 67 / F Adm Date: 3 Loc: Room: [address] [place] [address] Type: ADM IN Attending Dr: Malorie Nathan [...] signed by Laith Monte DO> 04/11/23 0854 [facility] Work Phone: 1([phone]) 491-907611-03-2023 History and physical note Author Neeraj Farrell [facility] April 10, 2023 4:36pm Note Date/Time April 10, 2023 4 :36pm [facility] [address] [place] [address] Hospitalist H&P Signed Patient: Albania Cesar MR#: [id number] : 1955 Acct:[id number] Age/Sex: 67 / F Adm Date: 3 Loc: Room: [address] [place] [address] Type: ADM IN Attending Dr: Neeraj Farrell [...] and treatment. Patient is also following at [place] regarding lymphedema and appears to be getting [...] constipation, diarrhea : Denies dysuria, hematuria, polyuria. [facility] Medical History (Updated 04/10/23 @ 16:34 by [...] % (Auto) 3.2 % (.) 04/10/23 10:20 Mesa % (Auto) 5.0 % (.) 04/10/23 10:20 Eos % (Auto) 1.0 % (.) 04/10/23 10:20 Baso % (Auto) 0.5 % (.) 04/10/23 10:20 Nucleat RBC Rel Count 0.1 /100 WBC (0-0.5) 04/10/23 10:20 Neut # (Auto) 11.7 x10E3/uL (1.8-7.7) H 04/10/23 10:20 Lymph # (Auto) 0.4 x10E3/uL (1.00-4.8) L 04/10/23 10:20 Mesa # (Auto) 0.6 x10E3/uL (0.0-0.8) 04/10/23 10:20 [...] pH 6.0 (5.0-9.0) 04/10/23 10:28 Ur Specific Fleming 1.034 (1.001-1.030) H 04/10/23 10:28 Urine Protein [...] <Electronically signed by Neeraj Farrell MD> 04/10/23 1638 [facility] Work Phone: 1(405) 327-401409-19-2023 Evaluation note* Encounter Date Diagnosis Assessment Notes [...] Consider returning to ID or lymphedema clinic [facility] [email or web address] Other 08-29-2023 Progress note Author Albino Saxena [facility] February 03, 2023 10:36am Note Date/Time February 03, 2023 10 :36am [facility] [address] [place] [address] Wound Center Provider Note Signed Patient: Albania Cesar MR#: [id number] : 1955 Acct:[id number] Age/Sex: 67 / F Copies to: MD [...] Intensity: 0 Wound/Ulcer History Mode of Arrival/ Pantograph Watcher: Personal vehicle Assistive Device Used Today: Cane [...] Skin/Breast: Reports wounds Neurologic Neurologic: Denies syncope [facility] Medical History (Updated 02/03/23 @ 10:32 by Albino Saxean MD) Cellulitis Leg ulcer, left Lymphedema Obese [...] Left Lower Leg: Bed Appearance: Beefy Red, [place] and Yellow Percent of Wound Bed Granulated/Red: 50 Percent of Devitalized: 50 Length (cm): 23.0 Width (cm): 55.0 Depth (cm): 0.1 CM Sq: 1265.000 Surrounding Tissue Appearance: Bright Red, Macerated and Edematous Surrounding Tissue Temp: Warm Drainage Amount: Copious Drainage Description: Serous and Yellow Drainage Odor: No Odor Right Lower Medial Leg: Bed Appearance: Beefy Red, [place] and Yellow Percent of Wound Bed Granulated/Red: 50 Percent of Devitalized: 50 Length (cm): 13.5 Width (cm): 1.0 Depth (cm): 0.1 CM Sq: 13.500 Surrounding Tissue Appearance: [place], Macerated and Edematous Surrounding Tissue Temp: Warm Drainage Amount: Moderate Drainage Description: Serosanguineous Drainage Odor: No Odor Right Lower Lateral Leg: Bed Appearance: [place] and Yellow Percent of Wound Bed Granulated/Red: [...] signed by MD Albino Saxena> 02/03/23 1036 [facility] Work Phone: 1(120) 287-843908-15-2023 Evaluation note* Encounter Date Diagnosis Assessment Notes Treatment Notes Treatment Clinical Notes Jan, Venous insufficiency (chronic) (peripheral) (ICD-10 - I87.2) [employer] Other 08-14-2023 Evaluation note* Encounter Date Diagnosis Assessment Notes Treatment Notes Treatment Clinical Notes Jan, Venous insufficiency (chronic) (peripheral) (ICD-10 - I87.2) Followed by vascular surgery, scheduled for procedure upcoming. We will f/u with [facility] to help get her SCDs that she was fitted for as this likely would help control swelling. Jan, Breast cancer screening (ICD-10 - Z12.39) Jan, CHUCKIE (obstructive sleep apnea) (ICD-10 - G47.33) Rx written for new mask and supplies. Jan, Need for pneumococca l 20-valent conjugate vaccination (ICD-10 - Z23) [facility] Other 08-01-2023 Evaluation note* Encounter Date Diagnosis Assessment Notes Treatment Notes Treatment Clinical Notes Jan, Venous insufficiency (chronic) (peripheral) (ICD-10 - I87.2) [facility] Other 07-24-2023 Evaluation note* Encounter Date Diagnosis [...] leg with unspecified severity (ICD-10 - L97.929) [facility] Other 12-30-2021 Evaluation note* Encounter Date Diagnosis [...] Patient care instructions given in writting by [facility] Care At Home document [employer] Other Evaluation noteNo assessment information available [facility] Work Phone: Evaluation note* Diagnosis Onset Date Resolution Status Elevated blood pressure reading acute Inflammation chronic Leg ulcer, left chronic Lymphedema chronic Obese chronic Wound pain chronic [facility] Work Phone: Evaluation note* Diagnosis Onset Date Resolution Status Elevated blood pressure reading acute Hyperkeratosis chronic Hyperpigmentation chronic Inflammation chronic Leg ulcer, left chronic Lymphedema chronic Nonadherence to medical treatment chronic Obese chronic Wound pain chronic [facility] Work Phone: Evaluation noteNo Information[facility]Ge[facility] [employer] Other Evaluation note* Diagnosis Onset Date Resolution Status Elevated blood pressure reading acute Hyperkeratosis chronic Hyperpigmentation chronic Inflammation chronic Leg ulcer, left chronic Lymphedema chronic Nonadherence to medical treatment chronic Obese chronic Wound pain chronic Cellulitis of left leg acute Ulcer of right leg acute Leg ulcer, left chronic Lymphedema chronic [facility] Work Phone: Evaluation note* Diagnosis Onset Date Resolution Status Cellulitis of left leg acute Ulcer of right leg acute Leg ulcer, left chronic Lymphedema chronic [facility] Work Phone: Evaluation note* Diagnosis Onset [...] tract infection) acute Inflammation chronic Lymphedema chronic [facility] Work Phone: Evaluation note* Diagnosis [...] acute Inflammation chronic Lymphedema chronic Obese chronic [facility] Work Phone: [employer] [facility] Narrative - Reported* Type Description Date Medical History CHUCKIE Medical History varicose veins Surgical History No know Surgical history Hospitalization History elevated BS, cellulitis [place] [email or web address] Other [facility] [facility] Narrative - Reported* Type Description Date Medical History CHUCKIE Medical History varicose veins Medical History cellulitis Medical History lymphedema Surgical History No know Surgical history Hospitalization History elevated BS, cellulitis [facility] [employer] Other [employer] [facility] Narrative - Reported* Type Description Date Medical History CHUCKIE Medical History varicose veins Medical History cellulitis Medical History lymphedema Surgical History No Surgical history information Hospitalization History see above Hospitalization History BLE--cellulitis, lymphed ace [facility] Other Hospital Discharge instructions Additional Instructions Have IV antibiotics twice daily at an infusion center for 1 week.[facility] Work Phone: Hospital Discharge instructions Additional [...] the antibiotics you are currently on as directed.[facility] Work Phone: Hospital Discharge instructions Additional Instructions Follow-up with your primary care doctor [facility] ED if develop worsening [facility] Work Phone: Summary Purpose Family History [...] section and content) DATE CREATED AUTHOR 12/02/2017 [facility] DATE CREATED AUTHOR AUTHOR'S ORGANIZ ATION 07/15/2023 [facility] REASON FOR VISIT (unrecogniz ed section and content) #12 JACKSON MALIBU, LOSS OF TAS TE, CONGESTION, FEVER, COUGHFR-ERNo InformationREFILLNo InformationEST PCPNo Informationchancre sore apptDISCUSS [id number] up from rehab needs to go over [...] Primary Care Provider Active Beth Jimenez , MANAGER MSW Active Evelyn Manuelermeyer , MANAGER MSW Attending Provider Active Team Status: Inactive Member [...] Primary Care Provider Active Beth Jimenez , MANAGER MSW Active Evelyn Rosaer , MANAGER MSW Attending Provider Active Team Status: Inactive Member [...] Primary Care Provider Active Beth Jimenez , MANAGER MSW Attending Provider Active Team Status: Active Member [...] Primary Care Provider Active Sarah Davey , [facility] Emergency Provider Active Neeraj Farrell MD Admit Provider, Attending Provider Active Team Status: Inactive Member Role Status Dates Abimbola Bran , DO Primary Care Provider Active Sarah Davey , [facility] Emergency Provider Active Neeraj Farrell MD Admit [...] BE BASED ON THE PRIMARY CLINICAL RECORDS. [employer] provides no warranty or guarantee of the accuracy or completeness of information in this document.
--- NOTE | 2023-08-04 05:23 | PC.NURSE ---
Patient presented with bilateral edema in both legs, left leg is worse. Redness noted up the Left thigh and area marked for observation. Foul drainage and weeping bilaterally. Under patients abdomen washed and dried as it was noted to have a foul odor and was damp. Pictures obtain of bilateral legs.
[2023-08-04 05:29] LABS: Basophils Percent Auto 0.2 % (0.2-2.0); Eosinophils Absolute Auto 0.1 10^3/uL (0.0-0.7); Eosinophils Percent Auto 0.7 % (0.9-7.0); Hematocrit 34.9 % (36.0-48.0); Immature Granulocytes Abs Auto 0.29 10^3/uL (0.00-0.03); Immature Granulocytes Pct Auto 1.5 % (0.0-0.5); Lymphocytes Absolute Auto 0.7 10^3/uL (1.2-3.8); Lymphocytes Percent Auto 3.3 % (20.5-60.0); Mean Corpuscular HGB Conc 28.7 g/dL (29.9-35.2); Mean Corpuscular Volume 83.9 fL (81.0-99.0); Mean Platelet Volume 9.8 fL (9.5-13.5); Monocytes Absolute Auto 0.9 10^3/uL (0.3-0.8); Monocytes Percent Auto 4.5 % (1.7-12.0); Neutrophils Absolute Auto 17.9 10^3/uL (1.4-6.5); Neutrophils Percent Auto 89.8 % (43.0-75.0); Platelet Count 248 10^3/uL (150-450); Red Blood Count 4.16 10^6/uL (4.20-5.40); Red Cell Distribution Width 16.4 % (11.0-15.0); White Blood Count 19.9 10^3/uL (4.0-11.0)
[2023-08-04] MEDS: MORPHINE SULFATE 2 MG/ML SYRINGE IV (05:44)
[2023-08-04] MEDS: 0.9 % SODIUM CHLORIDE 1,000 ML 100 ML IV ×3 (05:47→23:26)
[2023-08-04] MEDS: PREGABALIN 75 MG CAPSULE PO ×2 (05:48→21:33)
[2023-08-04 05:55] LABS: Alanine Aminotransferase 32 U/L (14-59); Albumin Globulin Ratio 0.4; Alkaline Phosphatase 111 U/L (46-116); Anion Gap 15.6; Aspartate Amino Transferase 50 U/L (15-37); BUN Creatinine Ratio 19.4; Bilirubin Total 0.8 mg/dL (0.2-1.0); Calcium 8.9 mg/dL (8.5-10.1); Carbon Dioxide 21.5 mmol/L (21.0-32.0); Chloride 99 mmol/L (98-107); Estimated GFR (African America >60 (>=60); Estimated GFR (Non-African Ame 51 (>=60); Glucose 133 mg/dL (74-106); Potassium 4.1 mmol/L (3.5-5.1); Sodium 132 mmol/L (136-145)
[2023-08-04] MEDS: ENOXAPARIN SODIUM 40 MG/0.4 ML SYRINGE SUBQ (06:13)
[2023-08-04] MEDS: FUROSEMIDE 40 MG TABLET PO (08:17)
[2023-08-04] MEDS: MELOXICAM 7.5 MG TABLET PO ×2 (08:17→21:33)
--- NOTE | 2023-08-04 08:28 | PC.NURSE ---
Bilateral extremeties are swollen with open weeping areas on the legs. Left leg has an open area that wraps around the back of the calf. Uneven edges, skin is sloughy around the the wound. Wound area is reddened, with yellow drainage. Patent states she has been being treated at the lymphedema clinic for both legs and wound.
[2023-08-04] MEDS: LINEZOLID IN DEXTROSE 5% 600 MG/300 ML PIGGYBACK 300 MG IV ×2 (09:09→21:33)
--- NOTE | 2023-08-04 10:34 | W.PM.WC ---
Wound Consult Note Assessment and Plan (1) Bilateral lower leg cellulitis: Plan Consult: BLE lymphedema/ulcerations/cellulitis Patient known to wound care center for history of BLE ulcerations. She has been referred to lymphedema therapy, however she has missed her appointments this week due to not feeling well. Assessment timed with pain medication today due to pain to legs with dressing changes. (She has also be referred to [facility] pain management, unsure if she has had an appointment there yet or not) She has redness to both legs, RIGHT with redness just to her knee, LEFT with redness and swelling up to her groin. She does have visible pustules to LEFT anterior thigh that were left intact. Open, excoriated skin to LEFT inner thigh skin fold. Although the patient does have increased redness to BLE, there is visible improvement in drainage amount/odor and size of ulcerations to BLE. Patient agrees with this assessment. She has open ulcerations to RIGHT anterior/lateral lower leg, and open ulcerations to LEFT LE from lateral to medial posteriorly. Intact skin is very dry and flaky. Difficult to measure wounds while patient in bed and dozing on and off. Difficult to hold legs and measure. However, on visual assessment, they appear to be improving, with new epithelial tissue noted. RIGHT heel with dried skin noted. Recommendations: Adaptic and ABD pads to any open ulcerations to BLE. Secure with kerlix/tape. Wrap with TETRA MARTIN bandage. Elevate as tolerated. Change daily and as needed. Triad as needed to periwounds to prevent drainage from irritated healed skin to legs daily. Nystop powder to excoriated skin in skin folds up to twice daily. Use pillowcase or soft cloth to keep skin . Change as needed. Please call [phone] for any questions or concerns. Dino Amin, ASHLEYN, RN, CWON
--- NOTE | 2023-08-04 11:31 | CM.NOTE ---
Rounds made with Dr. Larson, pt difficult to arouse. Pt was just medicated prior to wound drsg change. Pt does wear home BIPAP and voices her sister could bring her BIPAP from home. No discharge today.
--- NOTE | 2023-08-04 12:15 | SWNOTE1 ---
SW went in to speak with pt in regards to dc planning. Case management went in with SW. Pt was able to open her eyes when SW said her name, but fell right back to sleep. Doctor was close by and the nurse, doctor ordering ABG's.
[2023-08-04 12:52] LABS: ABG PCO2 42.2 mmHg (35.0-45.0); Base Excess ABG 0 mmol/L (-2.0-2.0); HCO3 ABG 25.1 mmol/L (22.0-26.0); PO2 ABG 90.9 mmHg (80.0-100.0); pH ABG 7.383 (7.350-7.450)
[2023-08-04 12:53] LABS: Allen Test POS (POSITIVE); Liters per Minute 1; O2 Mode NASAL CANNULA; Puncture Site R RADIAL
--- NOTE | 2023-08-04 14:00 | P.HP_ITS ---
<Statement entered by Beth Larson, - 08/04/23 15:03> This documentation has been reviewed and approved. I have also seen and evaluated patient. Was more somnolent this morning. ABG's ok. Wears BiPap at home, order placed for her to wear while sleeping here at the hospital. History of sleep apnea. H&P: HPI History of Present Illness Chief complaint: altered mental status Narrative: 08/04/23 1016 This is a 67-year-old female patient with a past medical history as outlined below including CHUCKIE on CPAP, hypertension, chronic pain, and chronic lymphedema; who was brought to the ED via EMS late last night due to altered mental status and family's concern for a UTI. The patient apparently follows with the lymphedema clinic but did not go to her appointment this week as she was not feeling well. Family notes that she has been sleeping a lot and complaining of left lower extremity pain, and that her urine was strong-smelling. Workup in the ED revealed fever (101.3), leukocytosis (22,000 with left shift), tachycardia (114), tachypnea (22), lactic acidosis (2.2), and elevated procalcitonin (2.22). Urinalysis was negative for infection but proteinuria was noted. Chest x-ray and EKG were unremarkable. A respiratory panel was negative. Physical exam of the patient's lower extremities revealed extensive cellulitis primarily of the left lower extremity, on chronic lymphedema with open weeping wounds. Wound and blood cultures were obtained in the ED and she was admitted to the hospitalist service as an inpatient for sepsis, cellulitis, and acute metabolic encephalopathy. At the time of my exam the patient is very somnolent and difficult to arouse. She does arouse to voice but quickly falls back to sleep mid-sentence. She became mildly hypoxic early this morning during sleep and O2 was applied w/ adequate O2 sat response. She does not have her home CPAP available at this time, but will ask family to bring it in. After persistent efforts, the patient was able to wake up and give some history of her current illness. She is oriented x 3 when she wakes up. She confirms longstanding lymphedema, but cannot clearly delineate when her increased pain and redness of the left lower extremity began - she just notes that her left leg pain has become severe. Profound somnolence could be 2/2 to hypoxia (CHUCKIE), vs Hypercarbia (OHS/CHUCKIE), vs narcotic side effect (recent narcotic pain medical instructor). We will monitor closely and consider ABGs, BiPAP, Narcan, or other interventions as indicated. ADDENDUM 1230: Nursing noted minimal urine output since admission. Pt denies need to void. Bladder scan revealed >600ml volume. Barrera catheter ordered for acute urinary retention. Review of Systems ROS Status of ROS 10 or more systems reviewed and unremark able except as noted in history and below [facility] Medical History (Updated 08/04/23 @ 14:59 by Kristy Harper NP) Morbid obesity ?E66.01 - Morbid (severe) obesity due to excess calories (ICD-10) CHF (congestive heart failure) ?I50.9 - Heart failure, unspecified (ICD-10) HTN (hypertension) ?I10 - Essential (primary) hypertension (ICD-10) Chronic skin ulcer of lower leg ?L97.909 - Non-pressure chronic ulcer of unspecified part of unspecified lower leg with unspecified severity (ICD-10) Lymphedema ?I89.0 - Lymphedema, not elsewhere classified (ICD-10) Sleep apnea ?G47.30 - Sleep apnea, unspecified (ICD-10) Family History (Updated 08/04/23 @ 05:27 by Va Portillo RN) Father Family history of myocardial infarction Social History (Updated 08/04/23 @ 05:29 by Va Portillo RN) Within the past year, how often did you have a drink containing alcohol: never Score interpretation: A score less than 3 is consistent with normal alcohol consumption. Smoking status: Never smoker Non-prescribed substance use: denies use Highest level of school completed/degree received: high school graduate Are you now , , , , never or living with a partner: Meds Home Medications and Allergies Home Medications Medication Instructions Recorded Confirmed Type carvedilol 3.125 mg tablet 3.125 mg PO Q12H 08/03/23 08/04/23 History furosemide 40 mg tablet 40 mg PO DAILY 08/03/23 08/04/23 History meloxicam 7.5 mg tablet 7.5 mg PO BID 08/03/23 08/04/23 History pregabalin 75 mg capsule 75 mg PO TID 08/03/23 08/04/23 History oxycodone 5 mg tablet 5 mg PO Q8H PRN pain (scale score 08/04/23 08/04/23 History 7-10) Allergies Allergy/AdvReac Type Severity Reaction Status Date / Time No Known Drug Allergies Allergy Verified 08/03/23 23:52 Exam Constitutional Vital Signs, click to edit/add: Last Vital Signs Temp 99.1 F 08/04/23 04:59 Pulse 91 H 08/04/23 13:51 Resp 22 08/04/23 04:59 BP 129/68 08/04/23 04:59 Pulse Ox 94 L 08/04/23 10:38 O2 Del Method Nasal Cannula 08/04/23 10:38 O2 Flow Rate 1 08/04/23 10:38 Common normals: no apparent distress, oriented x3 and well nourished General appearance: cooperative HENMT Common normals: normocephalic, head/scalp atraumatic, hearing grossly normal bilaterally, external nose normal and moist oral mucous membranes Eye Common normals: PERRL, EOMs intact bilaterally, conjunctivae normal and no scleral icterus Alignment: alignment normal Eyelid: eyelids normal Chest Common normals: inspection of chest normal Chest: symmetrical chest wall rise Respiratory Common normals: normal respiratory effort, no retractions, no use of accessory muscles and clear to auscultation bilaterally Cardio Common normals: no JVD, regular rate, regular rhythm, S1 normal heart sound, S2 normal heart sound, no gallops, no clicks, no murmurs, no rub and peripheral pulses 2+ throughout GI Common normals: Normal to inspection, nondistended, normoactive bowel sounds present, soft to palpation, non-tender, no hepatosplenomegaly, no masses and no bruits Bladder/kidney exam: bladder normal to palpation Back & Pelvis Common normals: thoracic and lumbar spine normal to inspection Extremity Common normals: normal capillary refill General: normal exam except as noted; no clubbing and no cyanosis Right lower extremity: lower leg (Chronic lymphedema. Erythema, calor knee down.) Left lower extremity: upper leg (Chronic lymphedema. Erythema, calor, tenderness midthigh down) Neuro Arjun Coma Scale: document GCS findings Arjun coma scale eye opening: To sound Arjun coma scale verbal response: Confused Naselle coma scale motor response: Obey commands Naselle coma scale total score: 13 Common normals: CN's II-XII intact bilaterally, moves all extremities, no focal motor deficits and no sensory deficits noted Sensorium/orientation: somnolent (arouses to voice, but quickly falls back to sleep) Speech: speech normal Psych Common normals: affect normal and activity/motor behavior normal Attention/concentration: attention grossly impaired Memory/cognition: memory grossly intact Insight: limited Judgement: fair Results Labs Labs: Short CBC 08/04/23 08/04/23 Range/Units 00:00 05:20 WBC 22.0 H 19.9 H (4.0-11.0) 10^3/uL Hgb 10.9 L 10.0 L (12.0-16.0) g/dL Hct 36.2 34.9 L (36.0-48.0) % Plt Count 328 248 (150-450) 10^3/uL BMP 08/04/23 08/04/23 00:00 05:20 Sodium 134 L 132 L Potassium 4.0 4.1 Chloride 96 L 99 Carbon Dioxide 25.4 21.5 BUN 21.0 H 21.0 H Creatinine 1.21 H 1.08 H Glucose 150 H 133 H Calcium 9.1 8.9 Liver Function 08/04/23 08/04/23 Range/Units 00:00 05:20 Total Bilirubin 1.0 0.8 (0.2-1.0) mg/dL AST 49 H 50 H (15-37) U/L ALT 37 32 (14-59) U/L Alkaline Phosphatase 125 H 111 (46-116) U/L Albumin 2.4 L 2.0 L (3.4-5.0) g/dL Urine 08/04/23 Range/Units 00:09 Urine Color Dk. yellow (YELLOW) Urine Clarity Clear (CLEAR) Urine pH 6.0 (5.0-9.0) Ur Specific [place] >=1.030 A (1.005-1.025) Urine Protein >=300 A (NEG/TRACE) mg/dL Urine Glucose (UA) Negative (NEGATIVE) mg/dL ABG ABG results: 08/04/23 12:45 ABG pH 7.383 ABG pCO2 42.2 ABG pO2 90.9 ABG HCO3 25.1 ABG O2 Saturation 98.0 ABG Base Excess 0 Pulse Oximetry Attestation: I have reviewed the pertinent pulse oximetry results. ECG Attestation: ?I have reviewed the pertinent ECG results. Interpretation: Sinus tachycardia Possible left atrial enlargement Abnormal rhythm ECG No previous ECG available for comparison Imaging Chest x-ray: Attestation: I have reviewed the pertinent imaging results. Radiologist's impression: Impression: No acute cardiopulmonary process. Assessment and Plan Assessment and Plan (1) Sepsis: Assessment and Plan: ACUTE * Adm inpatient * AEB on admission: * SEP1 Criteria: Temp 101.3, HR 114, RR 22, WBC 22,000, Lactic acid 2.2, Source - BLE Cellulitis * SEP3 Criteria: qSOFA score of 2 (GCS 13, RR 22), SOFA Score of 3 (PF ratio 304, GCS 13, Cr 1.21), Source - BLE Cellulitis * Procalcitonin 2.22 * Lactic acidosis 2.2, down to 1.5 after IVF boluses * No evidence of peripheral mottling/Adequate peripheral perfusion. * ABX as below * Wound culture pending * Blood cultures x 2 pending * 2 Liter IVF boluses given in ED * NS IVF at 100/hr for now - monitor BP closely * Hold home Lasix for now * Daily CBC, CMP, PCT (2) Bilateral lower leg cellulitis: Assessment and Plan: ACUTE * IVPB Zosyn and Vanco initiated in the ED * Continue Zosyn * Switch Vanco to Zyvox d/t large body habitus and difficulty attaining adequate blood levels d/t lipid solubility * Nursing to josette margins of erythema. Greater than 50% of LLE extremity involvement * See sepsis (3) Acute metabolic encephalopathy: Assessment and Plan: ACUTE * Likely multifactorial: Sepsis, hypoxia/CHUCKIE, Possible hypercarbia (suspect OHS), vs toxic encephalopathy from opiate pain medication * Obtain ABG * Have home CPAP/BiPAP brought from home or substitute hospital model while sleeping * Consider Narcan pending clinical course, but pt has not been overmedicated since admission. Monitor * See sepsis above (4) Acute retention of urine: Assessment and Plan: ACUTE * Pt unable to void, greater than 600 ml in bladder * Barrera catheter ordered * Consider void trial in 24-48 hrs * Consider Urology consult pending clinical course (5) Sleep apnea: Assessment and Plan: CHRONIC * Home CPAP/BiPAP or hospital substitution (6) Chronic skin ulcer of lower leg: Assessment and Plan: CHRONIC * Follows with wound clinic * C/S wound clinic nurse for wound care recommendations - we appreciate Dino's recommendations * Wound cultures pending (7) HTN (hypertension): Assessment and Plan: CHRONIC * Continue home Coreg for now * Low threshold to hold in setting of sepsis and risk for hypotension (8) CHF (congestive heart failure): Assessment and Plan: CHRONIC * Hold home lasix for now d/t sepsis/concurrent IVF administration * Resume when clinically indicated * Daily weights, strict I&O * Consider 2D Echo pending clinical course - we do not suspect CHF exacerbation at this time Urinary Catheter Management Urinary Catheter Management Urethral: Cath placed during this visit: yes Urethral indwelling: Yes Reason for continuing: acute urinary retention Insertion date: 08/04/23 Insertion time: 12:30
[2023-08-04 14:06] LABS: A. calcoaceticus-baumannii Cpx NOT DETECTED (NOT DETECTE); Bacteroides fragilis NOT DETECTED (NOT DETECTE); Candida albicans NOT DETECTED (NOT DETECTE); Candida auris NOT DETECTED (NOT DETECTE); Candida glabrata NOT DETECTED (NOT DETECTE); Candida krusei NOT DETECTED (NOT DETECTE); Candida parapsilosis NOT DETECTED (NOT DETECTE); Candida tropicalis NOT DETECTED (NOT DETECTE); Cryptococcus neoformans/gattii NOT DETECTED (NOT DETECTE); Enterobacter cloacae complex NOT DETECTED (NOT DETECTE); Enterobacterales NOT DETECTED (NOT DETECTE); Enterococcus faecalis NOT DETECTED (NOT DETECTE); Enterococcus faecium NOT DETECTED (NOT DETECTE); Haemophilus influenzae NOT DETECTED (NOT DETECTE); Klebsiella aerogenes NOT DETECTED (NOT DETECTE); Klebsiella pneumoniae group NOT DETECTED (NOT DETECTE); Listeria monocytogenes NOT DETECTED (NOT DETECTE); Neisseria meningitidis NOT DETECTED (NOT DETECTE); Proteus spp. NOT DETECTED (NOT DETECTE); Pseudomonas aeruginosa NOT DETECTED (NOT DETECTE); Salmonella spp. NOT DETECTED (NOT DETECTE); Serratia marcescens NOT DETECTED (NOT DETECTE); Staphylococcus epidermidis NOT DETECTED (NOT DETECTE); Staphylococcus lugdunensis NOT DETECTED (NOT DETECTE); Staphylococcus spp. NOT DETECTED (NOT DETECTE); Stenotrophomonas maltophilia NOT DETECTED (NOT DETECTE); Streptococcus agalactiae NOT DETECTED (NOT DETECTE); Streptococcus pneumoniae NOT DETECTED (NOT DETECTE)
[2023-08-04 15:20] LABS: Source BLOOD
[2023-08-04 15:22] LABS: Streptococcus spp. DETECTED (NOT DETECTE)
[2023-08-04 15:23] LABS: Streptococcus pyogenes DETECTED (NOT DETECTE)
--- NOTE | 2023-08-04 16:08 | CM.NOTE ---
Important Message From Medicare discussed with pt, pt verbalizes understanding and signs paper. Original given to pt and copy placed in pt's chart.
[2023-08-04] MEDS: CARVEDILOL 3.125 MG TABLET PO (21:33)
[2023-08-04] MEDS: NYSTATIN 15 GM POWDER 1 APPLIC TOPICAL (21:34)
[2023-08-05] VITALS (23 sets, daily range): BP systolic 103–132; BP diastolic 64–94; PULSE 71–85; RESP 12–20; TEMP 36.4–37.3; O2SAT 90–93; BMI 52.0
[2023-08-05] MEDS: PIPERACILLIN SODIUM/TAZOBACTAM 3.375 GM in 0.9 % SODIUM CHLORIDE 50 ML IV ×3 (01:45→17:02)
[2023-08-05] MEDS: PREGABALIN 75 MG CAPSULE PO ×3 (05:37→21:12)
[2023-08-05 05:42] LABS: Basophils Percent Auto 0.2 % (0.2-2.0); Eosinophils Absolute Auto 0.2 10^3/uL (0.0-0.7); Eosinophils Percent Auto 1.7 % (0.9-7.0); Hematocrit 30.7 % (36.0-48.0); Hemoglobin 8.8 g/dL (12.0-16.0); Immature Granulocytes Abs Auto 0.14 10^3/uL (0.00-0.03); Lymphocytes Absolute Auto 0.9 10^3/uL (1.2-3.8); Lymphocytes Percent Auto 6.7 % (20.5-60.0); Mean Corpuscular HGB Conc 28.7 g/dL (29.9-35.2); Mean Corpuscular Hemoglobin 23.5 pg (26.7-34.0); Mean Corpuscular Volume 82.1 fL (81.0-99.0); Mean Platelet Volume 10.6 fL (9.5-13.5); Monocytes Absolute Auto 0.9 10^3/uL (0.3-0.8); Monocytes Percent Auto 6.3 % (1.7-12.0); Neutrophils Absolute Auto 11.8 10^3/uL (1.4-6.5); Neutrophils Percent Auto 84.1 % (43.0-75.0); Platelet Count 246 10^3/uL (150-450); Red Blood Count 3.74 10^6/uL (4.20-5.40); Red Cell Distribution Width 16.4 % (11.0-15.0)
[2023-08-05 06:06] LABS: Alanine Aminotransferase 35 U/L (14-59); Albumin Globulin Ratio 0.4; Albumin Level 1.8 g/dL (3.4-5.0); Alkaline Phosphatase 120 U/L (46-116); Anion Gap 14.5; Aspartate Amino Transferase 45 U/L (15-37); BUN Creatinine Ratio 20.2; Bilirubin Total 0.4 mg/dL (0.2-1.0); Calcium 8.7 mg/dL (8.5-10.1); Carbon Dioxide 26.5 mmol/L (21.0-32.0); Chloride 98 mmol/L (98-107); Estimated GFR (African America 55 (>=60); Estimated GFR (Non-African Ame 45 (>=60); Globulin 4.9 g/dL; Glucose 110 mg/dL (74-106); Sodium 135 mmol/L (136-145); Total Protein 6.7 g/dL (6.4-8.2)
[2023-08-05 06:18] LABS: PROCALCITONIN 2.36 ng/mL (0.00-0.50)
[2023-08-05] MEDS: MELOXICAM 7.5 MG TABLET PO ×2 (08:42→21:12)
[2023-08-05] MEDS: CARVEDILOL 3.125 MG TABLET PO ×2 (08:42→21:12)
[2023-08-05] MEDS: OXYCODONE HCL/ACETAMINOPHEN 5MG/325MG 1 TAB PO ×3 (08:43→21:12)
[2023-08-05] MEDS: ENOXAPARIN SODIUM 40 MG/0.4 ML SYRINGE SUBQ (08:44)
[2023-08-05] MEDS: LINEZOLID IN DEXTROSE 5% 600 MG/300 ML PIGGYBACK 300 MG IV (08:44)
[2023-08-05] MEDS: 0.9 % SODIUM CHLORIDE 1,000 ML 100 ML IV (08:45)
--- NOTE | 2023-08-05 08:55 | CA_ITS ---
Patient Name: ALBANIA CESAR MR#: [id number] : 1955 Exam Date: 08/05/2023 Ordering Doctor: Beth Larson . ECHOCARDIOGRAM REPORT PROCEDURE: CA ECHO DOPPLER COMPLETE INDICATIONS: bacteremia, edema, sleep apnea, h/o congestive heart failure, hypertension COMPARISON: None. DESCRIPTION: COMPLETE ECHOCARDIOGRAM Real-time transthoracic echocardiography with 2D, M-mode, spectral and color flow Doppler performed. QUALITY: Technical quality was good. 64 , 311#, BSA 2.36 m2 LEFT VENTRICLE: Normal chamber size. Normal left ventricular wall thickness. LV EF: Global left ventricular systolic function is low normal limits; visually estimated ejection fraction is 50 to 55%. Abnormal septal motion; this may be related to underlying bundle branch block. DIASTOLIC: Diastolic function is indeterminate. ATRIAL SEPTUM: Inadequately seen. LEFT ATRIUM: Mild dilatation. RIGHT ATRIUM: Normal chamber size. RIGHT VENTRICLE: Normal chamber size. Normal right ventricular systolic function. TRICUSPID VALVE: Normal mobility and thickness .Mild regurgitation. Doppler studies reveal severely (>60) elevated right sided pressures. RVSP 68 mmHg MITRAL VALVE: Normal mobility and thickness. No evidence of mitral valve stenosis. Mild mitral annular calcification. Trivial mitral regurgitation. AORTIC VALVE: Normal trileaflet appearance. No visible sclerosis. Normal leaflet mobility. No evidence of aortic valve stenosis. No aortic regurgitation. AORTIC ROOT: Normal diameter and appearance. PULMONIC VALVE: Normal thickness and mobility. No stenosis. No regurgitation. PERICARDIUM: No evidence of pericardial effusion. IVC: IVC is dilated (2.9 cm) with no collapse. CONCLUSION: 1. Global left ventricular systolic function is low normal limits; visually estimated ejection fraction is 50 to 55% 2. Normal right ventricular size and systolic function 3. The left atrium is mildly dilated 4. Diastolic function is indeterminate 5. Mild tricuspid regurgitation 6. Severely elevated right ventricular systolic pressure; RVSP 68 mmHg Adult Echocardiography Procedure Report Left Ventricle LVEDD (3.7 - 5.6 cm): 5.03 cm LVESD (2.2 - 4.0 cm): 3.88 cm LVIVS thickness (0.6 - 1.2 cm): 0.87 cm LVPW thickness (0.5 - 1.0 cm): 1.00 cm e': 0.11 m/s E - e': 7.91 LVOT Max Gradient: 8.80 mm[Hg] LVOT Area (cm2): 1.48 m/s Peak Velocity (LVOT): 1.48 m/s Mean Velocity (LVOT): 0.93 m/s LVOT Diameter 2.05 cm Left Atrium LA Volume Index (2D A2C): 36.82 ml/m2 Left Atrium Systolic Dimension: 3.29 cm Mitral Valve MV E to A Ratio: 0.76 Mitral Valve A-Wave Peak Velocity: 1.17 m/s Mitral Valve E-Wave Peak Velocity: 0.89 m/s Right Ventricle Aorta AO Root Diam: 3.38 cm Ascending Ao Diam: 3.19 cm Aortic Valve AoV Area (Peak Radames): 2.86 cm2, 2.86 cm2 AoV Area (VTI): 2.79 cm2, 2.79 cm2 Peak Velocity(Antegrade Flow): 1.72 m/s Peak Gradient(Antegrade Flow): 11.79 mm[Hg] Mean Velocity(Antegrade Flow): 1.25 m/s Mean Gradient(Antegrade Flow): 7.06 mm[Hg] Velocity Time Integral: 34.55 cm Tricuspid Valve Peak Velocity (Regurgitant Flow): 2.98 m/s, 3.47 m/s Pulmonic Valve Peak Velocity: 1.12 m/s Peak Gradient: 4.27 mm[Hg], 5.86 mm[Hg] Right Atrium Right Atrium Systolic Pressure: 41.56 ml, 41.56 ml Dictated by: Jose Doyle M.D. on 08/05/2023 at 15:24 Approved by: Jose Doyle M.D. on 08/05/2023 at 15:34
--- NOTE | 2023-08-05 09:15 | SWNOTE1 ---
Case management spoke with pt yesterday and she had refused home health. SW to check back with pt. Pt's sister is also bringing in pt's home bipap as she had voiced to case management it is broke and she will not do another sleep study to get a new one.
--- NOTE | 2023-08-05 09:17 | SWNOTE1 ---
Correction to previous note, she has been using her old bipap machine, but mask does not fit well.
--- NOTE | 2023-08-05 10:20 | SWNOTE1 ---
SW stopped back in to speak with pt. Pt is much more alert and oriented at this time and voiced she does not remember much about yesterday. SW asked pt if she would be open to home health coming in. She stated she goes to the lymphedema clinic and she is not able to do outpt and in home therapy. SW asked if she was doing outpt threapy as well? She voiced she is. She is going to continue to do outpt therapy so she can go to lymphedema clinic as well. KIERAN also asked her about her bipap at home. She stated it is not broken, just needs new tubing and mask. She stated she is not able to do another sleep study due to what they put on her legs? She thinks the [employer] company is [employer]. SW to call and check about tubing and mask.
--- NOTE | 2023-08-05 10:38 | SWNOTE1 ---
SW called [employer] and pt does not get Bipap machine from them.
[2023-08-05] MEDS: MORPHINE SULFATE 2 MG/ML SYRINGE IV (10:47)
--- NOTE | 2023-08-05 11:41 | PC.NURSE ---
Old dressing removed bilaterally on lower extremities. New adaptic placed on open areas. ABD covered adaptic. Kerlix applied then alex wraps applied bilaterally on lower extremities.
--- NOTE | 2023-08-05 12:52 | CM.NOTE ---
Rounds made with Dr. Larson. No plan for discharge today.
--- NOTE | 2023-08-05 14:45 | P.PN_ITS ---
<Statement entered by Beth Larson DO - 08/06/23 15:05> This documentation has been reviewed and approved. I agree with the above assessment and plan. Progress Note: Subjective Subjective Interval history: 08/05/23 1020 The patient is resting in bed watching television at the time of my exam. Her bilateral lower extremity dressings were removed for complete visualization of her wounds and cellulitis. The patient experienced significant pain especially to the left lower extremity when dressings were removed. Ulcerations to the bilateral posterior calf surface appear purulent and infected. Her cellulitis is improving with less pronounced erythema and calor. Cellulitic changes remain to more than 50% of the left lower extremity, significantly reduced in the right lower extremity. She is much more awake today after using the hospital BiPAP with sleep overnight. Due to her severe pain we will increase her pain medications again today and monitor her closely for oversedation. She continues to require medically necessary inpatient care. Disposition: Discharge likely in 48 to 72 hours Exam Constitutional Vital Signs, click to edit/add: Last Vital Signs Temp 99.1 F 08/05/23 11:49 Pulse 74 08/05/23 13:56 Resp 20 08/05/23 11:49 BP 103/64 08/05/23 11:49 Pulse Ox 93 L 08/05/23 11:49 O2 Del Method Room Air 08/05/23 11:49 O2 Flow Rate 1 08/04/23 14:07 FiO2 21 08/05/23 04:00 Common normals: no apparent distress, oriented x3 and alert General appearance: cooperative Orientation/consciousness: Yes awake HENRI Common normals: normocephalic, head/scalp atraumatic and hearing grossly normal bilaterally Eye Common normals: PERRL, EOMs intact bilaterally, conjunctivae normal and no scleral icterus General eye: normal appearance of both eyes Conjunctiva: conjunctiva(e) normal Pupil: PERRL Lymph Lymphatic: lymphedema (BLE) Chest Common normals: inspection of chest normal Chest: symmetrical chest wall rise Respiratory Common normals: normal respiratory effort, no use of accessory muscles and clear to auscultation bilaterally Effort & inspection: able to speak in complete sentences Auscultation: diminished lung sounds (BLL) Cardio Common normals: regular rate, regular rhythm, S1 normal heart sound, S2 normal heart sound, no murmurs and peripheral pulses 2+ throughout GI Common normals: Normal to inspection, nondistended, normoactive bowel sounds present, soft to palpation, non-tender and no hepatosplenomegaly Bladder/kidney exam: bladder normal to palpation Extremity Common normals: normal to inspection and no calf tenderness Right lower extremity: lower leg (lower leg (Chronic lymphedema. Erythema, calor knee down.)) Left lower extremity: upper leg (upper leg (Chronic lymphedema. Erythema, calor, tenderness midthigh down)) and lower leg Other: Chronic ulcerations to BLE calves w/ purulent drainage noted, large serous drainage noted overall Neuro Common normals: oriented x3, CN's II-XII intact bilaterally, moves all extremities, no focal motor deficits and no sensory deficits noted Sensorium/orientation: awake and alert Psych Common normals: mental status grossly normal Progress Note: Objective Labs Labs: Short CBC 08/05/23 Range/Units 04:17 WBC 14.0 H (4.0-11.0) 10^3/uL Hgb 8.8 L (12.0-16.0) g/dL Hct 30.7 L (36.0-48.0) % Plt Count 246 (150-450) 10^3/uL BMP 08/05/23 04:17 Sodium 135 L Potassium 4.0 Chloride 98 Carbon Dioxide 26.5 BUN 24.0 H Creatinine 1.19 H Glucose 110 H Calcium 8.7 Liver Function 08/05/23 Range/Units 04:17 Total Bilirubin 0.4 (0.2-1.0) mg/dL AST 45 H (15-37) U/L ALT 35 (14-59) U/L Alkaline Phosphatase 120 H (46-116) U/L Albumin 1.8 L (3.4-5.0) g/dL Progress Note: A&P Assessment and Plan (1) Sepsis: Assessment and Plan: ACUTE * Improving * ABX as below * Wound culture pending * Blood cultures x 2 pos for S Pyogenes - see bacteremia * NS IVF at reduced rate of 75/hr * continue to hold home Lasix for now * Daily CBC, CMP, PCT * AEB on admission: * SEP1 Criteria: Temp 101.3, HR 114, RR 22, WBC 22,000, Lactic acid 2.2, Source - BLE Cellulitis * SEP3 Criteria: qSOFA score of 2 (GCS 13, RR 22), SOFA Score of 3 (PF ratio 304, GCS 13, Cr 1.21), Source - BLE Cellulitis * Procalcitonin 2.22 * Lactic acidosis 2.2, down to 1.5 after IVF boluses * No evidence of peripheral mottling/Adequate peripheral perfusion. (2) Bacteremia due to Gram-positive bacteria: Assessment and Plan: ACUTE * BC x 2 pos for S Pyogenes, I&D pending * Continue IVPB Zyvox and Zosyn * Consider monotherapy w/ Zyvox pending wound culture results * Repeat Blood cultures x 2 now to confirm resolution of bacteremia * 2D Echo today to assess for valvular vegetations (3) Bilateral lower leg cellulitis: Assessment and Plan: ACUTE * Surrounding chronic, infected ulcerations * Continue IVPB Zosyn and Zyvox * wound cultures pending * Nursing to monitor margins of erythema. Greater than 50% of LLE extremity involvement * See sepsis (4) Acute metabolic encephalopathy: Assessment and Plan: ACUTE * Resolving * Likely multifactorial: Sepsis, hypoxia/CHUCKIE, Possible hypercarbia (suspect OHS), vs toxic encephalopathy from opiate pain medication * ABG - unremarkable * Narcotic oversedation/toxic encephalopathy no longer clinically suspected * Sepsis improving * Continue hospital BiPAP while sleeping * See sepsis above (5) Acute retention of urine: Assessment and Plan: ACUTE * Maintain Barrera catheter for now * Consider void trial in AM * Consider Urology consult pending clinical course (6) Sleep apnea: Assessment and Plan: CHRONIC * Home CPAP/BiPAP or hospital substitution (7) Chronic skin ulcer of lower leg: Assessment and Plan: CHRONIC * Follows with wound clinic * C/S wound clinic nurse for wound care recommendations - we appreciate their recommendations * Wound cultures pending (8) HTN (hypertension): Assessment and Plan: CHRONIC * Continue home Coreg for now * Low threshold to hold in setting of sepsis and risk for hypotension (9) CHF (congestive heart failure): Assessment and Plan: CHRONIC * Continue to hold home lasix for now d/t sepsis/concurrent IVF administration * Resume when clinically indicated * Daily weights, strict I&O * Consider 2D Echo pending clinical course - we do not suspect CHF exacerbation at this time Urinary Catheter Management Urinary Catheter Management Urethral: Cath placed during this visit: yes Urethral indwelling: Yes Reason for continuing: acute urinary retention Insertion date: 08/04/23 Insertion time: 12:30
[2023-08-05] MEDS: 0.9 % SODIUM CHLORIDE 1,000 ML 75 ML IV (17:04)
--- NOTE | 2023-08-05 17:27 | DIETREC ---
Recommendation to physician for 30 mL PRO-stat BID and 1 pkt Jim BID.
[2023-08-05] MEDS: LINEZOLID IN DEXTROSE 5% 600 MG/300 ML PIGGYBACK 150 MG IV (21:11)
--- NOTE | 2023-08-05 23:48 | RESP.RT ---
Pt placed on our BIPAP for the night 19/12 Fi02 21%. Pt has a Home Bipap/Cpap at home but did not bring unit here.
[2023-08-06] VITALS (18 sets, daily range): BP systolic 110–168; BP diastolic 64–81; PULSE 67–93; RESP 12–20; TEMP 36.1–37; O2SAT 87–96
[2023-08-06] MEDS: PIPERACILLIN SODIUM/TAZOBACTAM 3.375 GM in 0.9 % SODIUM CHLORIDE 50 ML IV (03:11)
[2023-08-06] MEDS: PREGABALIN 75 MG CAPSULE PO ×3 (05:05→21:23)
[2023-08-06 05:19] LABS: Basophils Percent Auto 0.4 % (0.2-2.0); Eosinophils Absolute Auto 0.5 10^3/uL (0.0-0.7); Eosinophils Percent Auto 4.1 % (0.9-7.0); Hematocrit 30.6 % (36.0-48.0); Hemoglobin 8.6 g/dL (12.0-16.0); Immature Granulocytes Abs Auto 0.05 10^3/uL (0.00-0.03); Immature Granulocytes Pct Auto 0.4 % (0.0-0.5); Lymphocytes Absolute Auto 0.9 10^3/uL (1.2-3.8); Lymphocytes Percent Auto 8.3 % (20.5-60.0); Mean Corpuscular HGB Conc 28.1 g/dL (29.9-35.2); Mean Corpuscular Hemoglobin 23.8 pg (26.7-34.0); Mean Corpuscular Volume 84.8 fL (81.0-99.0); Mean Platelet Volume 10.3 fL (9.5-13.5); Monocytes Absolute Auto 0.9 10^3/uL (0.3-0.8); Monocytes Percent Auto 8.2 % (1.7-12.0); Neutrophils Absolute Auto 8.9 10^3/uL (1.4-6.5); Neutrophils Percent Auto 78.6 % (43.0-75.0); Platelet Count 229 10^3/uL (150-450); Red Blood Count 3.61 10^6/uL (4.20-5.40); Red Cell Distribution Width 16.7 % (11.0-15.0); White Blood Count 11.3 10^3/uL (4.0-11.0)
[2023-08-06 06:03] LABS: Alanine Aminotransferase 98 U/L (14-59); Albumin Globulin Ratio 0.3; Albumin Level 1.6 g/dL (3.4-5.0); Alkaline Phosphatase 196 U/L (46-116); Anion Gap 14.9; Aspartate Amino Transferase 128 U/L (15-37); BUN Creatinine Ratio 23.8; Bilirubin Total 0.4 mg/dL (0.2-1.0); Calcium 8.4 mg/dL (8.5-10.1); Carbon Dioxide 21.3 mmol/L (21.0-32.0); Chloride 100 mmol/L (98-107); Estimated GFR (African America >60 (>=60); Estimated GFR (Non-African Ame 55 (>=60); Globulin 5.2 g/dL; Glucose 119 mg/dL (74-106); Potassium 4.2 mmol/L (3.5-5.1); Sodium 132 mmol/L (136-145); Total Protein 6.8 g/dL (6.4-8.2)
[2023-08-06 06:07] LABS: PROCALCITONIN 1.07 ng/mL (0.00-0.50)
[2023-08-06] MEDS: 0.9 % SODIUM CHLORIDE 1,000 ML 75 ML IV ×2 (06:47→20:02)
--- NOTE | 2023-08-06 09:05 | US_ITS ---
The [address] [address] Patient Name: ALBANIA CESAR MRN: [id number] date: 1955 Sex: F Assigned Patient Location: MS Current Patient Location: MS Accession/Order Number: [id number] Exam Date: 08/06/2023 10:48 Report Date: 08/06/2023 11:29 At the request of: EVAN TIRADO Procedure: US right upper quadrant EXAM: US right upper quadrant HISTORY: elevated LFT's, RUQ COMPARISON: None. TECHNIQUE: Grayscale, color and Doppler FINDINGS: The liver is normal in contour and echotexture measuring 21.7 cm in length, prominent in size. Multiple areas of anechoic echogenicity the largest in the right lobe measuring 1.2 cm, simple cysts are favored. Hepatopedal flow in the main portal vein. The gallbladder is normal in size. The wall measures 3 mm, upper limits of normal. No cholelithiasis or pericholecystic fluid. Negative sonographic Yoo sign. The common bile duct measures 1.1 mm normal The pancreas is normal in appearance. The pancreatic tail was not visualized due to bowel gas The right kidney is normal measuring 9.9 x 6.2 x 4.7 cm. No hydronephrosis US/US right upper quadrant IMPRESSION: No acute abnormality Electronically authenticated by: JOYA SCHRADER Date: 08/06/2023 11:29
[2023-08-06] MEDS: MELOXICAM 7.5 MG TABLET PO ×2 (09:39→21:24)
[2023-08-06] MEDS: OXYCODONE HCL/ACETAMINOPHEN 5MG/325MG 1 TAB PO ×2 (09:39→21:23)
[2023-08-06] MEDS: CARVEDILOL 3.125 MG TABLET PO ×2 (09:39→21:23)
[2023-08-06] MEDS: ENOXAPARIN SODIUM 40 MG/0.4 ML SYRINGE SUBQ (09:41)
[2023-08-06] MEDS: JUVEN PACKET 1 PACKET PO ×2 (09:41→21:24)
[2023-08-06] MEDS: PROSTAT 15 GM PROTEIN/100 CAL 30 ML LIQUID PACKET PO ×2 (09:42→21:24)
[2023-08-06] MEDS: LINEZOLID IN DEXTROSE 5% 600 MG/300 ML PIGGYBACK 300 MG IV (09:42)
[2023-08-06 09:59] LABS: INR 0.97; Partial Thromboplastin Time 32.2 sec (22.3-36.2); Prothrombin Time 10.3 sec (9.0-11.6)
--- NOTE | 2023-08-06 10:27 | P.PN_ITS ---
<Statement entered by Beth Larson, DO - 08/06/23 15:04> This documentation has been reviewed and approved. I have also seen and evaluated patient today. She did experience a fall today, I heard the thud outside her room. She fell onto her bottom in the bathroom. she did not hit her head, no LOC. Patient denies pain in back or bottom. She reports she is ok. It took 3 of us to pick her up from the floor and get her safely in bed. I have reviewed note and agree with current assessments and plan of care. Progress Note: Subjective Subjective Interval history: 08/06/23 0855 The patient is resting in bed sleeping with BiPAP in place. She awakens easily to voice and answers questions appropriately. Her LLE cellulitis is markedly improved today. Her BLE dressings are D&I and improved lymphedema is noted. She is requesting to have the Constantino catheter removed and wants to get up to the bathroom and ambulate w/ PT. AM labs reveal improving leukocytosis and PCT, but abrupt elevation of liver enzymes. Transaminitis is likely d/t Zosyn SE, but we will order a liver US to definitively r/o other etiologies. Invanz has been substituted for Zosyn for broad gram neg coverage. Her wound cultures are growing proteus mirabilis, serratia marcescens, and strep pyogenes. Her blood is still only positive for s pyogenes. Exam Constitutional Vital Signs, click to edit/add: Last Vital Signs Temp 98.5 F 08/06/23 08:36 Pulse 93 H 08/06/23 09:59 Resp 20 08/06/23 08:36 BP 125/75 08/06/23 08:36 Pulse Ox 92 L 08/06/23 08:36 O2 Del Method Room Air 08/06/23 08:36 O2 Flow Rate 1 08/04/23 14:07 FiO2 21 08/06/23 04:12 Common normals: no apparent distress, oriented x3 and alert General appearance: cooperative Orientation/consciousness: Yes awake HENVT Common normals: normocephalic, head/scalp atraumatic and hearing grossly normal bilaterally Eye Common normals: PERRL, EOMs intact bilaterally, conjunctivae normal and no scleral icterus General eye: normal appearance of both eyes Conjunctiva: conjunctiva(e) normal Pupil: PERRL Lymph Lymphatic: lymphedema (BLE, improving) Chest Common normals: inspection of chest normal Chest: symmetrical chest wall rise Respiratory Common normals: normal respiratory effort, no use of accessory muscles and clear to auscultation bilaterally Effort & inspection: able to speak in complete sentences Auscultation: diminished lung sounds (BLL) Cardio Common normals: regular rate, regular rhythm, S1 normal heart sound, S2 normal heart sound, no murmurs and peripheral pulses 2+ throughout GI Common normals: Normal to inspection, nondistended, normoactive bowel sounds present, soft to palpation, non-tender and no hepatosplenomegaly Bladder/kidney exam: bladder normal to palpation Extremity Common normals: normal to inspection and no calf tenderness Right lower extremity: lower leg (Chronic lymphedema. Improving erythema, calor from knee down.) Left lower extremity: upper leg (Chronic lymphedema. Significantly improved erythema, calor midthigh down) and lower leg Other: BLE dressings D&I Neuro Common normals: oriented x3, CN's II-XII intact bilaterally, moves all extremities, no focal motor deficits and no sensory deficits noted Sensorium/orientation: awake and alert Psych Common normals: mental status grossly normal Progress Note: Objective Labs Labs: Short CBC 08/06/23 Range/Units 04:45 WBC 11.3 H (4.0-11.0) 10^3/uL Hgb 8.6 L (12.0-16.0) g/dL Hct 30.6 L (36.0-48.0) % Plt Count 229 (150-450) 10^3/uL BMP 08/06/23 04:45 Sodium 132 L Potassium 4.2 Chloride 100 Carbon Dioxide 21.3 BUN 24.0 H Creatinine 1.01 Glucose 119 H Calcium 8.4 L Liver Function 08/06/23 Range/Units 04:45 Total Bilirubin 0.4 (0.2-1.0) mg/dL AST 128 H (15-37) U/L ALT 98 H (14-59) U/L Alkaline Phosphatase 196 H (46-116) U/L Albumin 1.6 L (3.4-5.0) g/dL Progress Note: A&P Assessment and Plan (1) Sepsis: Assessment and Plan: ACUTE * Resolving * WBC 11.3, down from 22 on admission * PCT 1.07, down from 2.22 on admission * BP stable * Acute encephalopathy resolved * ABX as below * Wound culture pos for s pyogenes, proteus mirabilis, serratia marcescens - see cellulitis * Blood cultures x 2 pos for S Pyogenes - see bacteremia * Continue NS IVF at 75/hr * continue to hold home Lasix for now. Resume when clinically indicated * Daily CBC, CMP, PCT * AEB on admission: * SEP1 Criteria: Temp 101.3, HR 114, RR 22, WBC 22,000, Lactic acid 2.2, Source - BLE Cellulitis * SEP3 Criteria: qSOFA score of 2 (GCS 13, RR 22), SOFA Score of 3 (PF ratio 304, GCS 13, Cr 1.21), Source - BLE Cellulitis * Procalcitonin 2.22 * Lactic acidosis 2.2, down to 1.5 after IVF boluses * No evidence of peripheral mottling/Adequate peripheral perfusion. (2) Bacteremia due to Gram-positive bacteria: Assessment and Plan: ACUTE * BC x 2 pos for S Pyogenes - sensitive to Zyvox * Continue IVPB Zyvox * Repeat Blood cultures x 2 on 08/05/23, negative to date * 2D Echo 08/05/23 - no noted valvular vegetations (3) Transaminitis: Assessment and Plan: ACUTE * Abrupt liver enzymes elevation overnight * Suspect 2/2 Zosyn SE * d/c Zosyn, start Invanz daily for broad gram neg coverage * Abd US today to assess for other possible etiologies of transaminitis * Recheck coags today * CMP daily (4) Bilateral lower leg cellulitis: Assessment and Plan: ACUTE * Surrounding chronic, infected ulcerations * Wound culture growing s pyogenes, proteus mirabilis, serratia marcescens * Gram neg sensitive to Zosyn and Invanz * Gram pos sensitive to Zyvox * IVPB Invanz and Zyvox * Continue daily wound care per wound nurse recommendations * Erythema significantly improved today * See sepsis (5) Acute metabolic encephalopathy: Assessment and Plan: ACUTE * Resolved (6) Acute retention of urine: Assessment and Plan: ACUTE * D/C constantino for urine void trial * Pt requesting to be up to the bathroom (7) Sleep apnea: Assessment and Plan: CHRONIC * Home CPAP/BiPAP or hospital substitution (8) Chronic skin ulcer of lower leg: Assessment and Plan: CHRONIC * Follows with wound clinic * C/S wound clinic nurse for wound care recommendations - we appreciate their recommendations * Wound culture growing s pyogenes, proteus mirabilis, serratia marcescens * Gram neg sensitive to Zosyn and Invanz * Gram pos sensitive to Zyvox * IVPB Invanz and Zyvox (9) HTN (hypertension): Assessment and Plan: CHRONIC * Continue home Coreg * BP remains stable despite sepsis (10) CHF (congestive heart failure): Assessment and Plan: CHRONIC * Continue to hold home lasix for now d/t sepsis/concurrent IVF administration * Resume when clinically indicated, possibly in AM * Daily weights, strict I&O * Weight remains stable at baseline * 2D Echo obtained 08/05/23 d/t bacteremia * Preserved LVEF 50-55%, Indeterminate diastolic function, severely elevated RV systolic pressure * We do not suspect CHF exacerbation at this time (11) Protein-calorie malnutrition, severe: Assessment and Plan: CHRONIC * Teller Supervisor assessment 08/05/23 - meets severe protein malnutrition criteria * Jim BID initiated Urinary Catheter Management Urinary Catheter Management Urethral: Cath placed during this visit: yes, but has since been removed by the nurse Urethral indwelling: Yes Insertion date: 08/04/23 Insertion time: 12:30 Removal date: 08/06/23 Removal time: 10:12
--- NOTE | 2023-08-06 10:27 | PM.PN ---
Progress Note: Subjective Subjective Interval history: 08/06/23 0855 The patient is resting in bed sleeping with BiPAP in place. She awakens easily to voice and answers questions appropriately. Her LLE cellulitis is markedly improved today. Her BLE dressings are D&I and improved lymphedema is noted. She is requesting to have the Constantino catheter removed and wants to get up to the bathroom and ambulate w/ PT. AM labs reveal improving leukocytosis and PCT, but abrupt elevation of liver enzymes. Transaminitis is likely d/t Zosyn SE, but we will order a liver US to definitively r/o other etiologies. Invanz has been substituted for Zosyn for broad gram neg coverage. Her wound cultures are growing proteus mirabilis, serratia marcescens, and strep pyogenes. Her blood is still only positive for s pyogenes. Exam Constitutional Vital Signs, click to edit/add: Last Vital Signs Temp 98.5 F 08/06/23 08:36 Pulse 93 H 08/06/23 09:59 Resp 20 08/06/23 08:36 BP 125/75 08/06/23 08:36 Pulse Ox 92 L 08/06/23 08:36 O2 Del Method Room Air 08/06/23 08:36 O2 Flow Rate 1 08/04/23 14:07 FiO2 21 08/06/23 04:12 Common normals: no apparent distress, oriented x3 and alert General appearance: cooperative Orientation/consciousness: Yes awake HENOK Common normals: normocephalic, head/scalp atraumatic and hearing grossly normal bilaterally Eye Common normals: PERRL, EOMs intact bilaterally, conjunctivae normal and no scleral icterus General eye: normal appearance of both eyes Conjunctiva: conjunctiva(e) normal Pupil: PERRL Lymph Lymphatic: lymphedema (BLE, improving) Chest Common normals: inspection of chest normal Chest: symmetrical chest wall rise Respiratory Common normals: normal respiratory effort, no use of accessory muscles and clear to auscultation bilaterally Effort & inspection: able to speak in complete sentences Auscultation: diminished lung sounds (BLL) Cardio Common normals: regular rate, regular rhythm, S1 normal heart sound, S2 normal heart sound, no murmurs and peripheral pulses 2+ throughout GI Common normals: Normal to inspection, nondistended, normoactive bowel sounds present, soft to palpation, non-tender and no hepatosplenomegaly Bladder/kidney exam: bladder normal to palpation Extremity Common normals: normal to inspection and no calf tenderness Right lower extremity: lower leg (Chronic lymphedema. Improving erythema, calor from knee down.) Left lower extremity: upper leg (Chronic lymphedema. Significantly improved erythema, calor midthigh down) and lower leg Other: BLE dressings D&I Neuro Common normals: oriented x3, CN's II-XII intact bilaterally, moves all extremities, no focal motor deficits and no sensory deficits noted Sensorium/orientation: awake and alert Psych Common normals: mental status grossly normal Progress Note: Objective Labs Labs: Short CBC 08/06/23 Range/Units 04:45 WBC 11.3 H (4.0-11.0) 10^3/uL Hgb 8.6 L (12.0-16.0) g/dL Hct 30.6 L (36.0-48.0) % Plt Count 229 (150-450) 10^3/uL BMP 08/06/23 04:45 Sodium 132 L Potassium 4.2 Chloride 100 Carbon Dioxide 21.3 BUN 24.0 H Creatinine 1.01 Glucose 119 H Calcium 8.4 L Liver Function 08/06/23 Range/Units 04:45 Total Bilirubin 0.4 (0.2-1.0) mg/dL AST 128 H (15-37) U/L ALT 98 H (14-59) U/L Alkaline Phosphatase 196 H (46-116) U/L Albumin 1.6 L (3.4-5.0) g/dL Progress Note: A&P Assessment and Plan (1) Sepsis: Assessment and Plan: ACUTE Resolving WBC 11.3, down from 22 on admission PCT 1.07, down from 2.22 on admission BP stable Acute encephalopathy resolved ABX as below Wound culture pos for s pyogenes, proteus mirabilis, serratia marcescens - see cellulitis Blood cultures x 2 pos for S Pyogenes - see bacteremia Continue NS IVF at 75/hr continue to hold home Lasix for now. Resume when clinically indicated Daily CBC, CMP, PCT AEB on admission: SEP1 Criteria: Temp 101.3, HR 114, RR 22, WBC 22,000, Lactic acid 2.2, Source - BLE Cellulitis SEP3 Criteria: qSOFA score of 2 (GCS 13, RR 22), SOFA Score of 3 (PF ratio 304, GCS 13, Cr 1.21), Source - BLE Cellulitis Procalcitonin 2.22 Lactic acidosis 2.2, down to 1.5 after IVF boluses No evidence of peripheral mottling/Adequate peripheral perfusion. (2) Bacteremia due to Gram-positive bacteria: Assessment and Plan: ACUTE BC x 2 pos for S Pyogenes - sensitive to Zyvox Continue IVPB Zyvox Repeat Blood cultures x 2 on 08/05/23, negative to date 2D Echo 08/05/23 - no noted valvular vegetations (3) Transaminitis: Assessment and Plan: ACUTE Abrupt liver enzymes elevation overnight Suspect 07/10 Zosyn SE d/c Zosyn, start Invanz daily for broad gram neg coverage Abd US today to assess for other possible etiologies of transaminitis Recheck coags today CMP daily (4) Bilateral lower leg cellulitis: Assessment and Plan: ACUTE Surrounding chronic, infected ulcerations Wound culture growing s pyogenes, proteus mirabilis, serratia marcescens Gram neg sensitive to Zosyn and Invanz Gram pos sensitive to Zyvox IVPB Invanz and Zyvox Continue daily wound care per wound nurse recommendations Erythema significantly improved today See sepsis (5) Acute metabolic encephalopathy: Assessment and Plan: ACUTE Resolved (6) Acute retention of urine: Assessment and Plan: ACUTE D/C constantino for urine void trial Pt requesting to be up to the bathroom (7) Sleep apnea: Assessment and Plan: CHRONIC Home CPAP/BiPAP or hospital substitution (8) Chronic skin ulcer of lower leg: Assessment and Plan: CHRONIC Follows with wound clinic C/S wound clinic nurse for wound care recommendations - we appreciate their recommendations Wound culture growing s pyogenes, proteus mirabilis, serratia marcescens Gram neg sensitive to Zosyn and Invanz Gram pos sensitive to Zyvox IVPB Invanz and Zyvox (9) HTN (hypertension): Assessment and Plan: CHRONIC Continue home Coreg BP remains stable despite sepsis (10) CHF (congestive heart failure): Assessment and Plan: CHRONIC Continue to hold home lasix for now d/t sepsis/concurrent IVF administration Resume when clinically indicated, possibly in AM Daily weights, strict I&O Weight remains stable at baseline 2D Echo obtained 08/05/23 d/t bacteremia Preserved LVEF 50-55%, Indeterminate diastolic function, severely elevated RV systolic pressure We do not suspect CHF exacerbation at this time (11) Protein-calorie malnutrition, severe: Assessment and Plan: CHRONIC General Dentist/Owner assessment 08/05/23 - meets severe protein malnutrition criteria Jim BID initiated Urinary Catheter Management Urinary Catheter Management Urethral: Cath placed during this visit: yes, but has since been removed by the nurse Urethral indwelling: Yes Insertion date: 08/04/23 Insertion time: 12:30 Removal date: 08/06/23 Removal time: 10:12
--- NOTE | 2023-08-06 11:48 | CM.NOTE ---
Rounds made with Dr. Larson, no discharge to home today.
[2023-08-06] MEDS: ERTAPENEM SODIUM 1 GM in 0.9 % SODIUM CHLORIDE 50 ML IV (11:52)
[2023-08-06] MEDS: HYDROMORPHONE HCL 0.5 MG/0.5 ML SYRINGE IV ×2 (13:27→22:31)
--- NOTE | 2023-08-06 14:28 | SWNOTE1 ---
Addendum entered by Mireille Vick 08/07/23 08:13: Correction on note, her last usage of the cpap was 09/27/2022 Original Note: Correction from yesterday, pt's tubing and mask in her new machine need to be fixed. KIERAN spoke with pt again. SW let her know [facility] does not have her as a patient. SW let her know the only other company in [place] is [place], used to be [employer], .She voiced this is where she got it from. KIERAN called [employer] and they did give her a cpap in 2014, she has not received supplies since 2021. Her last usage of this cpap was 09/28/23. KIERAN asked if someone was able to look at this machine and assist pt, she stated not while she is inpatient at hospital, but once she is discharged she can make an apt. Pt's sister is looking for her bipap to bring it in.
[2023-08-06] MEDS: LINEZOLID IN DEXTROSE 5% 600 MG/300 ML PIGGYBACK 150 MG IV (21:23)
--- NOTE | 2023-08-06 23:50 | PC.NURSE ---
left inner open area measures 5X6 cm. then there is an open area that goes from back of left ankle all the way around to front of leg
--- NOTE | 2023-08-06 23:56 | RESP.RT ---
placed pt on bipap for the night 21/01 Fi02 28%
[2023-08-07] VITALS (11 sets, daily range): BP systolic 124–158; BP diastolic 56–90; PULSE 70–83; RESP 12–22; TEMP 36.4–36.8; O2SAT 84–96
[2023-08-07 05:01] LABS: Basophils Absolute Auto 0.1 10^3/uL (0.0-0.1); Basophils Percent Auto 0.4 % (0.2-2.0); Eosinophils Absolute Auto 0.3 10^3/uL (0.0-0.7); Eosinophils Percent Auto 2.9 % (0.9-7.0); Hematocrit 30.4 % (36.0-48.0); Hemoglobin 8.7 g/dL (12.0-16.0); Immature Granulocytes Abs Auto 0.18 10^3/uL (0.00-0.03); Immature Granulocytes Pct Auto 1.6 % (0.0-0.5); Lymphocytes Percent Auto 8.9 % (20.5-60.0); Mean Corpuscular HGB Conc 28.6 g/dL (29.9-35.2); Mean Corpuscular Hemoglobin 23.8 pg (26.7-34.0); Mean Corpuscular Volume 83.1 fL (81.0-99.0); Mean Platelet Volume 10.2 fL (9.5-13.5); Monocytes Absolute Auto 0.9 10^3/uL (0.3-0.8); Monocytes Percent Auto 7.7 % (1.7-12.0); Neutrophils Absolute Auto 8.9 10^3/uL (1.4-6.5); Neutrophils Percent Auto 78.5 % (43.0-75.0); Platelet Count 271 10^3/uL (150-450); Red Blood Count 3.66 10^6/uL (4.20-5.40); Red Cell Distribution Width 16.8 % (11.0-15.0); White Blood Count 11.3 10^3/uL (4.0-11.0)
[2023-08-07 05:28] LABS: Alanine Aminotransferase 139 U/L (14-59); Albumin Globulin Ratio 0.3; Albumin Level 1.7 g/dL (3.4-5.0); Alkaline Phosphatase 285 U/L (46-116); Anion Gap 11.2; Aspartate Amino Transferase 145 U/L (15-37); BUN Creatinine Ratio 26.5; Bilirubin Total 0.3 mg/dL (0.2-1.0); Calcium 8.6 mg/dL (8.5-10.1); Chloride 104 mmol/L (98-107); Estimated GFR (African America >60 (>=60); Estimated GFR (Non-African Ame 54 (>=60); Glucose 133 mg/dL (74-106); Potassium 4.2 mmol/L (3.5-5.1); Sodium 137 mmol/L (136-145); Total Protein 6.7 g/dL (6.4-8.2)
[2023-08-07 05:29] LABS: PROCALCITONIN 0.59 ng/mL (0.00-0.50)
--- NOTE | 2023-08-07 08:01 | CM.NOTE ---
2nd Notice of Important Message From Medicare discussed with pt, pt verbalizes understanding and denies any questions or concerns.
--- NOTE | 2023-08-07 08:10 | CM.NOTE ---
Discussed with CHENTE Wagner discharge planning for pt. CHENTE Wagner would like pt to have HH services with BID drsg changes for wounds. CHENTE Wagner will discuss with pt on rounds. Pt at this time was requesting to just f/u with lymphedema clinic and not use HH services. HH services would be more beneficial to pt at this time for BID drsg changes. SW or Case Management will f/u for discharge planning.
[2023-08-07] MEDS: PROSTAT 15 GM PROTEIN/100 CAL 30 ML LIQUID PACKET PO ×2 (08:37→21:17)
[2023-08-07] MEDS: OXYCODONE HCL/ACETAMINOPHEN 5MG/325MG 1 TAB PO ×2 (08:37→17:12)
[2023-08-07] MEDS: JUVEN PACKET 1 PACKET PO ×2 (08:37→21:17)
[2023-08-07] MEDS: ENOXAPARIN SODIUM 40 MG/0.4 ML SYRINGE SUBQ (08:38)
[2023-08-07] MEDS: CARVEDILOL 3.125 MG TABLET PO ×2 (08:38→21:17)
[2023-08-07] MEDS: LINEZOLID IN DEXTROSE 5% 600 MG/300 ML PIGGYBACK 300 MG IV ×2 (08:38→21:18)
[2023-08-07] MEDS: MELOXICAM 7.5 MG TABLET PO ×2 (08:38→21:17)
[2023-08-07] MEDS: 0.9 % SODIUM CHLORIDE 1,000 ML 75 ML IV (08:50)
--- NOTE | 2023-08-07 08:50 | CM.NOTE ---
Talked with pt in depth regarding discharge planning and her thoughts regarding senior living facility vs HH services at discharge. Pt becomes very tearful regarding HH services, pt states My brother is a hoarder and I'm afraid they would contact Adult Protective Services. Reinforced to pt that Adult Protective services does not try to take their home, they offer services to help. Talked with pt regarding her needs at discharge, and making the best decision for her regarding her health and care. Pt at this time would rather go to a skilled inpt facility at discharge, pt choice would be the [facility]. SW will send pt's information to [place].
--- NOTE | 2023-08-07 09:05 | SWNOTE1 ---
SW spoke to case management and she had conversation with pt and she now wants to go to rehab, the [facility]. KIERAN sent face sheet, ED note, physician notes, wound care notes, nursing notes, PT/OT, labs, vitals, and med list to [facility].
[2023-08-07] MEDS: ERTAPENEM SODIUM 1 GM in 0.9 % SODIUM CHLORIDE 50 ML IV (09:46)
--- NOTE | 2023-08-07 10:07 | XR_ITS ---
The [address] [address] Patient Name: ALBANIA CESAR MRN: [id number] date: 1955 Sex: F Assigned Patient Location: MS Current Patient Location: Accession/Order Number: [id number] Exam Date: 08/07/2023 10:15 Report Date: 08/07/2023 10:42 At the request of: JIMMY GARSIA Procedure: XR chest 1V EXAMINATION: XR chest 1V, 08/07/2023 10:15 AM EST HISTORY: SOB, cough COMPARISON: 08/04/2023 TECHNIQUE: AP portable view of the chest performed. FINDINGS: Medical devices: None. Cardiomediastinal silhouette is unchanged. Mild bilateral basilar predominant pulmonary opacities, atelectasis or infiltrate. No large pleural effusion, or pneumothorax. XR/XR chest 1V IMPRESSION: 1. Mild bilateral basilar predominant pulmonary opacities, atelectasis or infiltrate. Electronically authenticated by: JULIEN BOO Date: 08/07/2023 10:42
[2023-08-07 10:19] LABS: Adenovirus NOT DETECTED (NOT DETECTE); Bordetella parapertussis NOT DETECTED (NOT DETECTE); Coronavirus 229E NOT DETECTED (NOT DETECTE); Coronavirus HKU1 NOT DETECTED (NOT DETECTE); Coronavirus NL63 NOT DETECTED (NOT DETECTE); Coronavirus OC43 NOT DETECTED (NOT DETECTE); Human Metapneumovirus NOT DETECTED (NOT DETECTE); Human Rhinovirus/Enterovirus NOT DETECTED (NOT DETECTE); Influenza A NOT DETECTED (NOT DETECTE); Influenza B NOT DETECTED (NOT DETECTE); Mycoplasma pneumoniae NOT DETECTED (NOT DETECTE); Parainfluenza Virus 1 NOT DETECTED (NOT DETECTE); Parainfluenza Virus 2 NOT DETECTED (NOT DETECTE); Parainfluenza Virus 3 NOT DETECTED (NOT DETECTE); Parainfluenza Virus 4 NOT DETECTED (NOT DETECTE); Respiratory Syncytial Virus NOT DETECTED (NOT DETECTE); SARS-CoV-2 NOT DETECTED (NOT DETECTE)
--- NOTE | 2023-08-07 10:45 | CM.NOTE ---
Rounds made with Dr. Larson, will discuss discharge plan with CHENTE Wagner. Pt plan is now to discharge to skilled facility for wound care and PT.
[2023-08-07] MEDS: GUAIFENESIN 600 MG TAB.ER.12H PO ×2 (11:43→21:17)
[2023-08-07] MEDS: AMMONIUM LACTATE 226 GM BOTTLE 1 APPLIC TOPICAL ×2 (11:43→21:18)
--- NOTE | 2023-08-07 11:45 | PT.DAILY ---
Physical Therapy Daily Note PT Daily Note/Assess Start: 08/07/23 11:40 Freq: Status: Active Protocol: Document 08/07/23 11:41 RADHA (Rec: 08/07/23 11:45 [email or web address] [id number]) Physical Therapy Daily Note/Assessment Time In/Time Out Time In 11:25 Time Out 11:35 Pain In Pain N/A Pain Out Pain N/A Subjective Subjective Pt sitting in BS chair upon arrival. This is second attempt to see pt - refused earlier but agreeable now. Therapeutic Activity Time Therapeutic Activity Minutes (minutes) 10 Therapeutic Activity Units 1 Therapeutic Activity Treatment Chair Transfer Ability Standby Assistance Therapeutic Activity Comments Pt needs assistance donning gripper socks. Sit>stand to RW SBA. pt amb 80' with RW SBA with assistance for IV pole - 1x standing rest break and to tie gown. Pt goes up/down 4 steps with bilat UE support with step to pattern to ascend and alternating step pattern to descend. Pt amb 80' back to room with RW, SBA with IV pole. Returned to BS chair. needs assistance to get pillows under legs, legs are elevated, call light in reach and needs met. Total Physical Therapy Time Total Therapy Minutes 10 Total Physical Therapy Units 1 Summary Daily Note Summary Improved gait endurance. Good tolerance with stair training - safe with bilat UE support needed.
--- NOTE | 2023-08-07 12:19 | CM.NOTE ---
Spoke with [facility] Qui[facility]ones regarding pt's CPAP and need for mask and tubing. Pt will be discharge from here to in skilled and is in need of supplies. Pt not medically able to get sleep study at this time but will require supplies to use CPAP machine at [facility]. Ruth requesting script for supplies and this will be out of pocket expense for patient. Discussed with pt cost of mask 185.00 and tubing- 57.00, pt in agreement to pay for supplies and sister will pick them up. Faxed [facility] order for CPAP supplies and they will contact pt's sister when ready for chart picker.
--- NOTE | 2023-08-07 13:36 | P.PN_ITS ---
<Statement entered by Beth Larson, DO - 08/07/23 17:15> This documentation has been reviewed and approved.I have also seen and evaluated patient and agree with assessments and plan of care. Progress Note: Subjective Subjective Interval history: 08/07/23 0955 The patient is sitting up in a bedside chair. She reports feeling that her legs are improving, but c/o increased cough and difficulty keeping her O2 up overnight. We will obtain a repeat CXR today and will resume her home lasix as well. We will also order OPEP and Guaifenesin for sputum mobilization. PRN duonebs have also been ordered. We altered her dressing changes to BID yesterday and the pt reports that her legs feel better with more frequent changes d/t the large volume of weeping her LEs produce. Her liver enzymes continued to climb today despite discontinuation of Zosyn yesterday. A RUQ US was unremarkable. We continue to suspect Zosyn as the etiology of her transaminitis and will continue to monitor her labs. Her wound cultures are now growing proteus mirabilis, serratia marcescens, MRSA, enterococcus faecalis, and strep pyogenes. Her blood is still only positive for s pyogenes. All pathogens are covered by the pt's current ABX regimen with IVPB Invanz and Zyvox Exam Constitutional Vital Signs, click to edit/add: Last Vital Signs Temp 97.5 F L 08/07/23 12:15 Pulse 83 08/07/23 12:15 Resp 22 08/07/23 12:15 BP 145/75 H 08/07/23 12:15 Pulse Ox 88 L 08/07/23 12:15 O2 Del Method Room Air 08/07/23 12:15 O2 Flow Rate 2 08/06/23 23:47 FiO2 28 08/07/23 04:27 Common normals: no apparent distress, oriented x3 and alert Orientation/consciousness: Yes awake [facility] Common normals: normocephalic, head/scalp atraumatic and hearing grossly normal bilaterally Eye Common normals: PERRL, EOMs intact bilaterally, conjunctivae normal and no scleral icterus General eye: normal appearance of both eyes Neck & C-Spine Common normals: no JVD Lymph Lymphatic: lymphedema (BLE, improving) Chest Common normals: inspection of chest normal Chest: symmetrical chest wall rise Respiratory Common normals: normal respiratory effort, no retractions and no use of accessory muscles Auscultation: wheezes (Faint, scattered EE) and other (Loose, non-productive cou gh) Cardio Common normals: no JVD, regular rate, regular rhythm, S1 normal heart sound, S2 normal heart sound, no gallops, no murmurs and peripheral pulses 2+ throughout GI Common normals: Normal to inspection, nondistended, normoactive bowel sounds present, soft to palpation, non-tender, no hepatosplenomegaly and no masses Bladder/kidney exam: bladder normal to palpation Back & Pelvis Common normals: thoracic and lumbar spine normal to inspection Extremity Common normals: normal to inspection, normal capillary refill and no calf tenderness General: normal exam except as noted; no clubbing and no cyanosis Right lower extremity: lower leg (Chronic lymphedema. Resolving erythema, calor from knee down.) Left lower extremity: upper leg (Chronic lymphedema. Resolving erythema, calor midthigh to ankle) Other: BLE dressings D&I to chronic ulcerations Neuro Common normals: CN's II-XII intact bilaterally, moves all extremities, no focal motor deficits and no sensory deficits noted Psych Common normals: mental status grossly normal Progress Note: Objective Labs Labs: Short CBC 08/07/23 Range/Units 04:23 WBC 11.3 H (4.0-11.0) 10^3/uL Hgb 8.7 L (12.0-16.0) g/dL Hct 30.4 L (36.0-48.0) % Plt Count 271 (150-450) 10^3/uL BMP 08/07/23 04:23 Sodium 137 Potassium 4.2 Chloride 104 Carbon Dioxide 26.0 BUN 27.0 H Creatinine 1.02 Glucose 133 H Calcium 8.6 Liver Function 08/07/23 Range/Units 04:23 Total Bilirubin 0.3 (0.2-1.0) mg/dL AST 145 H (15-37) U/L ALT 139 H (14-59) U/L Alkaline Phosphatase 285 H (46-116) U/L Albumin 1.7 L (3.4-5.0) g/dL Imaging US - abdomen: Attestation: I have reviewed the pertinent imaging results. Radiologist's impression: IMPRESSION: No acute abnormality Progress Note: A&P Assessment and Plan (1) Sepsis: Assessment and Plan: ACUTE * Resolving * WBC 11.3, down from 22 on admission * PCT 0.59, down from 2.22 on admission * BP stable * Acute encephalopathy resolved * ABX as below * Wound culture pos for s pyogenes, proteus mirabilis, serratia marcescens, MRSA, e faecalis - see cellulitis * Blood cultures x 2 pos for S Pyogenes - see bacteremia * Saline lock IVF * Daily CBC, CMP, PCT * AEB on admission: * SEP1 Criteria: Temp 101.3, HR 114, RR 22, WBC 22,000, Lactic acid 2.2, Source - BLE Cellulitis * SEP3 Criteria: qSOFA score of 2 (GCS 13, RR 22), SOFA Score of 3 (PF ratio 304, GCS 13, Cr 1.21), Source - BLE Cellulitis * Procalcitonin 2.22 * Lactic acidosis 2.2, down to 1.5 after IVF boluses * No evidence of peripheral mottling/Adequate peripheral perfusion. (2) Bacteremia due to Gram-positive bacteria: Assessment and Plan: ACUTE * BC x 2 pos for S Pyogenes - sensitive to Zyvox * Continue IVPB Zyvox * Repeat Blood cultures x 2 on 08/05/23, negative to date * 2D Echo 08/05/23 - no noted valvular vegetations * Likely able to discharge on PO Levaquin and Zyvox (3) Transaminitis: Assessment and Plan: ACUTE * Continued liver enzymes elevation overnight again * Suspect 2/ Zosyn SE * Zosyn d/c'd, continue Invanz daily for broad gram neg coverage * Abd US 08/06/23 - unremarkable * Repeat Coags unremarkable * Hepatitis panel today * CMP daily (4) Bilateral lower leg cellulitis: Assessment and Plan: ACUTE * Surrounding chronic, infected ulcerations * Wound culture growing s pyogenes, proteus mirabilis, serratia marcescens * Gram neg sensitive to Zosyn and Invanz * Gram pos sensitive to Zyvox * IVPB Invanz and Zyvox * Continue daily wound care per wound nurse recommendations * Erythema significantly improved today * See sepsis (5) Cough: Assessment and Plan: ACUTE * Mild, intermittent hypoxia that resolves w/ deep inspiration * Saline lock IVF * Resume home furosemide - no significant clinical concern for decompensation, but possible * Repeat CXR now * All bacterial pneumonias should be covered by current ABX regimen * OPEP/Guaifenesin for sputum mobilization * Continue BiPAP at all times w/ sleep (6) Acute metabolic encephalopathy: Assessment and Plan: ACUTE * Resolved (7) Acute retention of urine: Assessment and Plan: ACUTE * Resolved (8) Sleep apnea: Assessment and Plan: CHRONIC * Home CPAP/BiPAP or hospital substitution (9) Chronic skin ulcer of lower leg: Assessment and Plan: CHRONIC * Follows with wound clinic * C/S wound clinic nurse for wound care recommendations - we appreciate her recommendations * Dressing change frequency increased to BID and PRN d/t large volume weeping of wounds * Wound culture growing s pyogenes, proteus mirabilis, serratia marcescens, MRSA, enterococcus faecalis * Gram neg sensitive to Zosyn and Invanz * Gram pos sensitive to Zyvox * Continue IVPB Invanz and Zyvox (10) HTN (hypertension): Assessment and Plan: CHRONIC * Continue home Coreg * BP remains stable despite sepsis (11) CHF (congestive heart failure): Assessment and Plan: CHRONIC * Resume home lasix today * IVF saline locked * Daily weights, strict I&O * Weight has remained stable despite large volume IVF administration * 2D Echo obtained 08/05/23 d/t bacteremia * Preserved LVEF 50-55%, Indeterminate diastolic function, severely elevated RV systolic pressure * We do not suspect CHF exacerbation at this time (12) Protein-calorie malnutrition, severe: Assessment and Plan: CHRONIC * Chief Deputy Sheriff assessment 08/05/23 - meets severe protein malnutrition criteria * Jim BID initiated Urinary Catheter Management Urinary Catheter Management Urethral: Cath placed during this visit: yes, but has since been removed by the nurse Urethral indwelling: Yes Insertion date: 08/04/23 Insertion time: 12:30 Removal date: 08/06/23 Removal time: 10:12
--- NOTE | 2023-08-07 13:36 | PM.PN ---
Progress Note: Subjective Subjective Interval history: 08/07/23 0959 The patient is sitting up in a bedside chair. She reports feeling that her legs are improving, but c/o increased cough and difficulty keeping her O2 up overnight. We will obtain a repeat CXR today and will resume her home lasix as well. We will also order OPEP and Guaifenesin for sputum mobilization. PRN duonebs have also been ordered. We altered her dressing changes to BID yesterday and the pt reports that her legs feel better with more frequent changes d/t the large volume of weeping her LEs produce. Her liver enzymes continued to climb today despite discontinuation of Zosyn yesterday. A RUQ US was unremarkable. We continue to suspect Zosyn as the etiology of her transaminitis and will continue to monitor her labs. Her wound cultures are now growing proteus mirabilis, serratia marcescens, MRSA, enterococcus faecalis, and strep pyogenes. Her blood is still only positive for s pyogenes. All pathogens are covered by the pt's current ABX regimen with IVPB Invanz and Zyvox Exam Constitutional Vital Signs, click to edit/add: Last Vital Signs Temp 97.5 F L 08/07/23 12:15 Pulse 83 08/07/23 12:15 Resp 22 08/07/23 12:15 BP 145/75 H 08/07/23 12:15 Pulse Ox 88 L 08/07/23 12:15 O2 Del Method Room Air 08/07/23 12:15 O2 Flow Rate 2 08/06/23 23:47 FiO2 28 08/07/23 04:27 Common normals: no apparent distress, oriented x3 and alert Orientation/consciousness: Yes awake [facility] Common normals: normocephalic, head/scalp atraumatic and hearing grossly normal bilaterally Eye Common normals: PERRL, EOMs intact bilaterally, conjunctivae normal and no scleral icterus General eye: normal appearance of both eyes Neck & C-Spine Common normals: no JVD Lymph Lymphatic: lymphedema (BLE, improving) Chest Common normals: inspection of chest normal Chest: symmetrical chest wall rise Respiratory Common normals: normal respiratory effort, no retractions and no use of accessory muscles Auscultation: wheezes (Faint, scattered EE) and other (Loose, non-productive cough) Cardio Common normals: no JVD, regular rate, regular rhythm, S1 normal heart sound, S2 normal heart sound, no gallops, no murmurs and peripheral pulses 2+ throughout GI Common normals: Normal to inspection, nondistended, normoactive bowel sounds present, soft to palpation, non-tender, no hepatosplenomegaly and no masses Bladder/kidney exam: bladder normal to palpation Back & Pelvis Common normals: thoracic and lumbar spine normal to inspection Extremity Common normals: normal to inspection, normal capillary refill and no calf tenderness General: normal exam except as noted; no clubbing and no cyanosis Right lower extremity: lower leg (Chronic lymphedema. Resolving erythema, calor from knee down.) Left lower extremity: upper leg (Chronic lymphedema. Resolving erythema, calor midthigh to ankle) Other: BLE dressings D&I to chronic ulcerations Neuro Common normals: CN's II-XII intact bilaterally, moves all extremities, no focal motor deficits and no sensory deficits noted Psych Common normals: mental status grossly normal Progress Note: Objective Labs Labs: Short CBC 08/07/23 Range/Units 04:23 WBC 11.3 H (4.0-11.0) 10^3/uL Hgb 8.7 L (12.0-16.0) g/dL Hct 30.4 L (36.0-48.0) % Plt Count 271 (150-450) 10^3/uL BMP 08/07/23 04:23 Sodium 137 Potassium 4.2 Chloride 104 Carbon Dioxide 26.0 BUN 27.0 H Creatinine 1.02 Glucose 133 H Calcium 8.6 Liver Function 08/07/23 Range/Units 04:23 Total Bilirubin 0.3 (0.2-1.0) mg/dL AST 145 H (15-37) U/L ALT 139 H (14-59) U/L Alkaline Phosphatase 285 H (46-116) U/L Albumin 1.7 L (3.4-5.0) g/dL Imaging US - abdomen: Attestation: I have reviewed the pertinent imaging results. Radiologist's impression: IMPRESSION: No acute abnormality Progress Note: A&P Assessment and Plan (1) Sepsis: Assessment and Plan: ACUTE Resolving WBC 11.3, down from 22 on admission PCT 0.59, down from 2.22 on admission BP stable Acute encephalopathy resolved ABX as below Wound culture pos for s pyogenes, proteus mirabilis, serratia marcescens, MRSA, e faecalis - see cellulitis Blood cultures x 2 pos for S Pyogenes - see bacteremia Saline lock IVF Daily CBC, CMP, PCT AEB on admission: SEP1 Criteria: Temp 101.3, HR 114, RR 22, WBC 22,000, Lactic acid 2.2, Source - BLE Cellulitis SEP3 Criteria: qSOFA score of 2 (GCS 13, RR 22), SOFA Score of 3 (PF ratio 304, GCS 13, Cr 1.21), Source - BLE Cellulitis Procalcitonin 2.22 Lactic acidosis 2.2, down to 1.5 after IVF boluses No evidence of peripheral mottling/Adequate peripheral perfusion. (2) Bacteremia due to Gram-positive bacteria: Assessment and Plan: ACUTE BC x 2 pos for S Pyogenes - sensitive to Zyvox Continue IVPB Zyvox Repeat Blood cultures x 2 on 08/05/23, negative to date 2D Echo 08/05/23 - no noted valvular vegetations Likely able to discharge on PO Levaquin and Zyvox (3) Transaminitis: Assessment and Plan: ACUTE Continued liver enzymes elevation overnight again Suspect 2/ Zosyn SE Zosyn d/c'd, continue Invanz daily for broad gram neg coverage Abd US 08/06/23 - unremarkable Repeat Coags unremarkable Hepatitis panel today CMP daily (4) Bilateral lower leg cellulitis: Assessment and Plan: ACUTE Surrounding chronic, infected ulcerations Wound culture growing s pyogenes, proteus mirabilis, serratia marcescens Gram neg sensitive to Zosyn and Invanz Gram pos sensitive to Zyvox IVPB Invanz and Zyvox Continue daily wound care per wound nurse recommendations Erythema significantly improved today See sepsis (5) Cough: Assessment and Plan: ACUTE Mild, intermittent hypoxia that resolves w/ deep inspiration Saline lock IVF Resume home furosemide - no significant clinical concern for decompensation, but possible Repeat CXR now All bacterial pneumonias should be covered by current ABX regimen OPEP/Guaifenesin for sputum mobilization Continue BiPAP at all times w/ sleep (6) Acute metabolic encephalopathy: Assessment and Plan: ACUTE Resolved (7) Acute retention of urine: Assessment and Plan: ACUTE Resolved (8) Sleep apnea: Assessment and Plan: CHRONIC Home CPAP/BiPAP or hospital substitution (9) Chronic skin ulcer of lower leg: Assessment and Plan: CHRONIC Follows with wound clinic C/S wound clinic nurse for wound care recommendations - we appreciate her recommendations Dressing change frequency increased to BID and PRN d/t large volume weeping of wounds Wound culture growing s pyogenes, proteus mirabilis, serratia marcescens, MRSA, enterococcus faecalis Gram neg sensitive to Zosyn and Invanz Gram pos sensitive to Zyvox Continue IVPB Invanz and Zyvox (10) HTN (hypertension): Assessment and Plan: CHRONIC Continue home Coreg BP remains stable despite sepsis (11) CHF (congestive heart failure): Assessment and Plan: CHRONIC Resume home lasix today IVF saline locked Daily weights, strict I&O Weight has remained stable despite large volume IVF administration 2D Echo obtained 08/05/23 d/t bacteremia Preserved LVEF 50-55%, Indeterminate diastolic function, severely elevated RV systolic pressure We do not suspect CHF exacerbation at this time (12) Protein-calorie malnutrition, severe: Assessment and Plan: CHRONIC Conduit Helper assessment 08/05/23 - meets severe protein malnutrition criteria Jim BID initiated Urinary Catheter Management Urinary Catheter Management Urethral: Cath placed during this visit: yes, but has since been removed by the nurse Urethral indwelling: Yes Insertion date: 08/04/23 Insertion time: 12:30 Removal date: 08/06/23 Removal time: 10:12
[2023-08-07] MEDS: PREGABALIN 75 MG CAPSULE PO ×2 (13:38→21:17)
[2023-08-07] MEDS: HYDROMORPHONE HCL 0.5 MG/0.5 ML SYRINGE IV ×2 (13:38→23:25)
--- NOTE | 2023-08-07 14:11 | SWNOTE1 ---
KIERAN called [facility] and spoke with Mariola. She does think they can take her but waiting to hear back from clinical.
[2023-08-07] MEDS: FUROSEMIDE 40 MG TABLET PO (15:34)
--- NOTE | 2023-08-07 15:46 | SWNOTE1 ---
SW spoke to [facility] and they are able to accept pt at discharge. SW sent wound care assessment, culture results, and progress note from today to [facility]. SW completed HENS. KIERAN took packet to med/surge floor for nursing.
--- NOTE | 2023-08-07 16:22 | CM.NOTE ---
Talked with pt, sister was going to [employer] CPAP supplies at this time.
[2023-08-08] VITALS (11 sets, daily range): BP systolic 107–168; BP diastolic 65–86; PULSE 70–85; RESP 12–20; TEMP 36.3–37.1; O2SAT 89–100
[2023-08-08 05:05] LABS: Basophils Absolute Auto 0.1 10^3/uL (0.0-0.1); Basophils Percent Auto 0.7 % (0.2-2.0); Eosinophils Absolute Auto 0.4 10^3/uL (0.0-0.7); Eosinophils Percent Auto 4.3 % (0.9-7.0); Hematocrit 29.3 % (36.0-48.0); Hemoglobin 8.3 g/dL (12.0-16.0); Immature Granulocytes Abs Auto 0.25 10^3/uL (0.00-0.03); Immature Granulocytes Pct Auto 2.5 % (0.0-0.5); Lymphocytes Absolute Auto 1.1 10^3/uL (1.2-3.8); Lymphocytes Percent Auto 11.1 % (20.5-60.0); Mean Corpuscular HGB Conc 28.3 g/dL (29.9-35.2); Mean Corpuscular Hemoglobin 23.6 pg (26.7-34.0); Mean Corpuscular Volume 83.5 fL (81.0-99.0); Mean Platelet Volume 10.8 fL (9.5-13.5); Monocytes Absolute Auto 0.9 10^3/uL (0.3-0.8); Monocytes Percent Auto 9.1 % (1.7-12.0); Neutrophils Absolute Auto 7.2 10^3/uL (1.4-6.5); Neutrophils Percent Auto 72.3 % (43.0-75.0); Platelet Count 286 10^3/uL (150-450); Red Blood Count 3.51 10^6/uL (4.20-5.40); Red Cell Distribution Width 17.2 % (11.0-15.0)
[2023-08-08 05:54] LABS: Alanine Aminotransferase 169 U/L (14-59); Albumin Globulin Ratio 0.3; Albumin Level 1.7 g/dL (3.4-5.0); Alkaline Phosphatase 312 U/L (46-116); Anion Gap 11.9; Aspartate Amino Transferase 152 U/L (15-37); BUN Creatinine Ratio 28.4; Bilirubin Total 0.3 mg/dL (0.2-1.0); Calcium 8.8 mg/dL (8.5-10.1); Carbon Dioxide 26.5 mmol/L (21.0-32.0); Chloride 104 mmol/L (98-107); Estimated GFR (African America >60 (>=60); Estimated GFR (Non-African Ame 54 (>=60); Globulin 5.2 g/dL; Glucose 116 mg/dL (74-106); Potassium 4.4 mmol/L (3.5-5.1); Sodium 138 mmol/L (136-145); Total Protein 6.9 g/dL (6.4-8.2)
[2023-08-08 06:54] LABS: PROCALCITONIN 0.39 ng/mL (0.00-0.50)
[2023-08-08 07:09] LABS: HBsAg Screen Negative (Negative); HCV Ab Non Reactive (Non Reactive); Hep A Ab, IgM Negative (Negative); Hep B Core Ab, IgM Negative (Negative)
[2023-08-08] MEDS: JUVEN PACKET 1 PACKET PO ×2 (09:16→20:04)
[2023-08-08] MEDS: ENOXAPARIN SODIUM 40 MG/0.4 ML SYRINGE SUBQ (09:16)
[2023-08-08] MEDS: FUROSEMIDE 40 MG TABLET PO (09:16)
[2023-08-08] MEDS: OXYCODONE HCL/ACETAMINOPHEN 5MG/325MG 1 TAB PO ×2 (09:16→15:18)
[2023-08-08] MEDS: PROSTAT 15 GM PROTEIN/100 CAL 30 ML LIQUID PACKET PO ×2 (09:16→20:04)
[2023-08-08] MEDS: CARVEDILOL 6.25 MG TABLET PO ×2 (09:17→20:04)
[2023-08-08] MEDS: LINEZOLID IN DEXTROSE 5% 600 MG/300 ML PIGGYBACK 300 MG IV ×2 (09:17→20:08)
[2023-08-08] MEDS: AMMONIUM LACTATE 226 GM BOTTLE 1 APPLIC TOPICAL ×2 (09:17→20:07)
[2023-08-08] MEDS: GUAIFENESIN 600 MG TAB.ER.12H PO ×2 (09:17→20:04)
[2023-08-08] MEDS: NYSTATIN 15 GM POWDER 1 APPLIC TOPICAL ×2 (09:17→20:07)
[2023-08-08] MEDS: MELOXICAM 7.5 MG TABLET PO ×2 (09:55→20:04)
--- NOTE | 2023-08-08 09:58 | P.PN_ITS ---
Progress Note: Subjective Subjective Interval history: Patient without complaints except pain. Medications are helping with that. Exam Constitutional Vital Signs, click to edit/add: Last Vital Signs Temp 98.8 F 08/08/23 04:30 Pulse 71 08/08/23 04:30 Resp 20 08/08/23 04:30 BP 144/75 H 08/08/23 04:30 Pulse Ox 95 08/08/23 05:20 O2 Del Method BIPAP 08/08/23 04:30 O2 Flow Rate 2 08/07/23 16:35 FiO2 28 08/08/23 05:20 HENMT Common normals: normocephalic Respiratory Common normals: normal respiratory effort Cardio Common normals: regular rate and regular rhythm Extremity Common normals: abnormal to inspection (See note from wound) Progress Note: Objective Labs Labs: Short CBC 08/08/23 Range/Units 04:13 WBC 10.0 (4.0-11.0) 10^3/uL Hgb 8.3 L (12.0-16.0) g/dL Hct 29.3 L (36.0-48.0) % Plt Count 286 (150-450) 10^3/uL BMP 08/08/23 04:13 Sodium 138 Potassium 4.4 Chloride 104 Carbon Dioxide 26.5 BUN 29.0 H Creatinine 1.02 Glucose 116 H Calcium 8.8 Liver Function 08/08/23 Range/Units 04:13 Total Bilirubin 0.3 (0.2-1.0) mg/dL AST 152 H (15-37) U/L ALT 169 H (14-59) U/L Alkaline Phosphatase 312 H (46-116) U/L Albumin 1.7 L (3.4-5.0) g/dL Progress Note: A&P Assessment and Plan (1) Sepsis: Assessment and Plan: Oral improving his white blood cell count down to normal, continue with current antibiotics, based on sensitivities most infections on the wound would be covered (2) Bacteremia due to Gram-positive bacteria: Assessment and Plan: ACUTE * BC x 2 pos for S Pyogenes - sensitive to Zyvox * Continue IVPB Zyvox * Continue with current regimen antibiotics (3) Transaminitis: Assessment and Plan: ACUTE * Check on serum ammonia and PT PTT, ultrasound normal (4) Bilateral lower leg cellulitis: Assessment and Plan: ACUTE * Multiple organisms growing, although this would be surface cultures, continue with current antibiotics (5) Cough: Assessment and Plan: ACUTE * Patient states cough is stable (6) Acute metabolic encephalopathy: Assessment and Plan: ACUTE * Resolved (7) Acute retention of urine: Assessment and Plan: ACUTE * Resolved (8) Sleep apnea: Assessment and Plan: CHRONIC * Home CPAP/BiPAP or hospital substitution (9) Chronic skin ulcer of lower leg: Assessment and Plan: CHRONIC * See wound consultation notes, continue with current antibiotics (10) HTN (hypertension): Assessment and Plan: Blood pressure elevated today, adjust medications (11) CHF (congestive heart failure): Assessment and Plan: CHRONIC * Resume home lasix today * IVF saline locked * Daily weights, strict I&O * Weight has remained stable despite large volume IVF administration * 2D Echo obtained 08/05/23 d/t bacteremia * Preserved LVEF 50-55%, Indeterminate diastolic function, severely elevated RV systolic pressure * We do not suspect CHF exacerbation at this time (12) Protein-calorie malnutrition, severe: Assessment and Plan: CHRONIC * Director [employer] Bever[employer] assessment 08/05/23 - meets severe protein malnutrition criteria * Jim BID initiated , add Ensure Plan Added diagnosis from above Possible acute blood loss anemia, hemoglobin down 4 g from baseline. Check occult blood Urinary Catheter Management Urinary Catheter Management Urethral: Cath placed during this visit: yes, but has since been removed by the nurse Urethral indwelling: Yes Insertion date: 08/04/23 Insertion time: 12:30 Removal date: 08/06/23 Removal time: 10:12
--- NOTE | 2023-08-08 10:11 | PT.DAILY ---
Physical Therapy Daily Note PT Daily Note/Assess Start: 08/07/23 11:40 Freq: Status: Active Protocol: Document 08/08/23 09:47 [id number] (Rec: 08/08/23 09:56 [id number]) Physical Therapy Daily Note/Assessment Time In/Time Out Time In 09:10 Time Out 09:34 Pain In Pain Level 5 Pain Out Pain Level 8 Subjective Subjective Pt received in bed with CPAP in place. Patient agreeable to work with PT and removes CPAP . Patient requests pain meds and to use bathroom. Nursing notified of patients request for pain meds. Therapeutic Activity Time Therapeutic Activity Minutes (minutes) 24 Therapeutic Activity Units 2 Therapeutic Activity Treatment Bed Mobility Ability Contact Guard Assist Chair Transfer Ability Contact Guard Assist Therapeutic Activity Comments Patient able to slowly move LINA LE and semi-roll to R side using hand rail for assist. Patient able to transfer sit to stand to RW with CGA +1. Patient ambulated ~30 ft. to bathroom, able to I transfer stand to sit with use of R hand rail to commode. Commode to RW transfer CGA +1. Patient stands at RW while MAX A +1 for shyla cleaning. Patient ambulated ~30 feet to BS chair and request to not elevate LINA LE secondary to pain. Patient able to sit ~2- 3 minute and request to return to bed secondary to LINA LE pain. Transfer chair to RW to bed CGA +1. Patient able to transfer sit to supine CGA +1 with use of rail at [facility]. Call craft placed within reach. Total Physical Therapy Time Total Therapy Minutes 24 Total Physical Therapy Units 2 Summary Daily Note Summary Patient verbalizes significant LINA LE pain this date but willing to participate with PT . Does demonstrate decreased ambulation distance secondary to verbalized LINA LE pain. WBOS when ambulating secondary to girth of LINA LE. Unable to tolerate sitting in chair. Patient declined therapeutic exercises this date. Patient would benefit from stay at [facility] at [place].
[2023-08-08] MEDS: ERTAPENEM SODIUM 1 GM in 0.9 % SODIUM CHLORIDE 50 ML IV (11:56)
[2023-08-08] MEDS: HYDROMORPHONE HCL 0.5 MG/0.5 ML SYRINGE IV (12:05)
[2023-08-08] MEDS: PREGABALIN 75 MG CAPSULE PO ×2 (15:18→21:35)
[2023-08-08] MEDS: ENSURE HP 237 ML LIQUID PO ×2 (15:18→20:04)
[2023-08-08] MEDS: OXYCODONE HCL 5 MG TABLET PO (20:04)
[2023-08-08] MEDS: HYDROMORPHONE HCL 1 MG/ML CARTRIDGE IV (21:17)
[2023-08-09] VITALS (7 sets, daily range): BP systolic 130–146; BP diastolic 70–90; PULSE 66–74; RESP 12–18; TEMP 35.6–36.6; O2SAT 94–100
[2023-08-09] MEDS: PREGABALIN 75 MG CAPSULE PO ×2 (05:00→14:31)
[2023-08-09 05:43] LABS: Basophils Absolute Auto 0.1 10^3/uL (0.0-0.1); Basophils Percent Auto 0.7 % (0.2-2.0); Eosinophils Absolute Auto 0.4 10^3/uL (0.0-0.7); Eosinophils Percent Auto 4.5 % (0.9-7.0); Hematocrit 29.4 % (36.0-48.0); Hemoglobin 8.3 g/dL (12.0-16.0); Immature Granulocytes Pct Auto 4.9 % (0.0-0.5); Lymphocytes Absolute Auto 1.1 10^3/uL (1.2-3.8); Lymphocytes Percent Auto 13.3 % (20.5-60.0); Mean Corpuscular HGB Conc 28.2 g/dL (29.9-35.2); Mean Corpuscular Hemoglobin 23.5 pg (26.7-34.0); Mean Corpuscular Volume 83.3 fL (81.0-99.0); Mean Platelet Volume 10.5 fL (9.5-13.5); Monocytes Absolute Auto 0.8 10^3/uL (0.3-0.8); Monocytes Percent Auto 9.8 % (1.7-12.0); Neutrophils Absolute Auto 5.5 10^3/uL (1.4-6.5); Neutrophils Percent Auto 66.8 % (43.0-75.0); Platelet Count 314 10^3/uL (150-450); Red Blood Count 3.53 10^6/uL (4.20-5.40); Red Cell Distribution Width 17.3 % (11.0-15.0); White Blood Count 8.2 10^3/uL (4.0-11.0)
[2023-08-09 05:52] LABS: INR 0.97; Partial Thromboplastin Time 31.9 sec (22.3-36.2); Prothrombin Time 10.3 sec (9.0-11.6)
[2023-08-09 05:59] LABS: Ammonia 41 umol/L (11-32)
[2023-08-09 06:16] LABS: Alanine Aminotransferase 140 U/L (14-59); Albumin Globulin Ratio 0.3; Albumin Level 1.6 g/dL (3.4-5.0); Alkaline Phosphatase 281 U/L (46-116); Anion Gap 12.1; Aspartate Amino Transferase 97 U/L (15-37); BUN Creatinine Ratio 32.3; Bilirubin Total 0.2 mg/dL (0.2-1.0); Calcium 8.6 mg/dL (8.5-10.1); Carbon Dioxide 25.1 mmol/L (21.0-32.0); Chloride 105 mmol/L (98-107); Estimated GFR (African America >60 (>=60); Estimated GFR (Non-African Ame >60 (>=60); Globulin 5.2 g/dL; Glucose 114 mg/dL (74-106); Potassium 4.2 mmol/L (3.5-5.1); Sodium 138 mmol/L (136-145); Total Protein 6.8 g/dL (6.4-8.2)
[2023-08-09] MEDS: LINEZOLID IN DEXTROSE 5% 600 MG/300 ML PIGGYBACK 300 MG IV (10:29)
[2023-08-09] MEDS: ENSURE HP 237 ML LIQUID PO (10:30)
[2023-08-09] MEDS: PROSTAT 15 GM PROTEIN/100 CAL 30 ML LIQUID PACKET PO (10:30)
[2023-08-09] MEDS: MELOXICAM 7.5 MG TABLET PO (10:30)
[2023-08-09] MEDS: CARVEDILOL 6.25 MG TABLET PO (10:30)
[2023-08-09] MEDS: GUAIFENESIN 600 MG TAB.ER.12H PO (10:30)
[2023-08-09] MEDS: FUROSEMIDE 40 MG TABLET PO (10:30)
[2023-08-09] MEDS: ENOXAPARIN SODIUM 40 MG/0.4 ML SYRINGE SUBQ (10:30)
[2023-08-09] MEDS: OXYCODONE HCL 5 MG TABLET PO ×2 (10:30→14:31)
[2023-08-09] MEDS: LACTULOSE 10 GM/15 ML (237ML) SOLUTION 30 GM PO (10:31)
[2023-08-09] MEDS: NYSTATIN 15 GM POWDER 1 APPLIC TOPICAL (10:31)
[2023-08-09] MEDS: JUVEN PACKET 1 PACKET PO (10:31)
[2023-08-09] MEDS: AMMONIUM LACTATE 226 GM BOTTLE 1 APPLIC TOPICAL (10:32)
--- NOTE | 2023-08-09 10:52 | P.DS_ITS ---
DS: Providers Provider Date of admission: 08/04/23 04:45 Primary care physician: Marino Aviles MD Consults: 08/04/23 03:13 Consult to Darkroom Worker Routine Has provider been notified: No Reason for consult:: Home Health 08/04/23 08:26 Consult to Wound Care Routine Consulting Provider: Dino Amin Reason for consultation: BLE lymphedema w/ open wounds/cellulitis Has provider been notified: No 08/05/23 07:39 Consult to Dietitian Routine Reason For Exam: Suspect protein surinder malnutrition Reason for consultation: Suspect protein surinder malnutrition Has provider been notified: No 08/06/23 08:58 Occupational Therapy Eval and Treat Routine Reason for consultation: weakness Has provider been notified: No Physical Therapy Eval and Treat Routine Reason for consultation: weakness Has provider been notified: No DS: Diagnosis Discharge Diagnosis (1) Sepsis: (2) Bacteremia due to Gram-positive bacteria: (3) Transaminitis: (4) Bilateral lower leg cellulitis: (5) Cough: (6) Acute metabolic encephalopathy: (7) Acute retention of urine: (8) Sleep apnea: (9) Chronic skin ulcer of lower leg: (10) HTN (hypertension): (11) CHF (congestive heart failure): (12) Protein-calorie malnutrition, severe: DS: Summary Hospital Course Hospital Course: Patient was seen and evaluated in the emergency room with altered mental status. Found to have sepsis. Blood culture returned positive for staph. She was treated with IV antibiotics. Her other issue is pain control. We had to bump up her oxycodone to every 4 hours.. Her leukocytosis on admission has resolved, her hepatitis is improving, her hemoglobin is low but stable, at this point she does need to continue with antibiotics. She has multiple organisms growing from her wound culture, the combination of linezolid and levofloxacin should cover all of them. She can continue to see wound. She needs to continue her lymphedema treatments. She does respond well to her sleep apnea mask. Medications see list. Follow-up with PCP at discharge. Time Spent with Patient Time attestation: Total time spent providing and/or coordinating discharge services: Exam Constitutional Vital Signs, click to edit/add: Last Vital Signs Temp 96.0 F L 08/09/23 10:29 Pulse 66 08/09/23 10:29 Resp 18 08/09/23 10:29 BP 139/80 08/09/23 10:29 Pulse Ox 96 08/09/23 10:29 O2 Del Method Room Air 08/09/23 10:29 O2 Flow Rate 2 08/09/23 00:00 FiO2 28 08/09/23 05:02 [facility] Common normals: normocephalic Respiratory Common normals: normal respiratory effort Cardio Common normals: regular rate and regular rhythm Extremity Common normals: abnormal to inspection (See note from wound) DS: Data Data Completed and Pending Labs on day of discharge: Labs from last 24 hours 08/09/23 04:41 WBC 8.2 RBC 3.53 L Hgb 8.3 L Hct 29.4 L MCV 83.3 MCH 23.5 L MCHC 28.2 L RDW 17.3 H Plt Count 314 MPV 10.5 Neut % (Auto) 66.8 Lymph % (Auto) 13.3 L [place] % (Auto) 9.8 Eos % (Auto) 4.5 Baso % (Auto) 0.7 Neut # (Auto) 5.5 Lymph # (Auto) 1.1 L [place] # (Auto) 0.8 Eos # (Auto) 0.4 Baso # (Auto) 0.1 Abs Immat Gran (auto) 0.40 H Imm/Tot Granulo (auto) 4.9 H PT 10.3 INR 0.97 APTT 31.9 Sodium 138 Potassium 4.2 Chloride 105 Carbon Dioxide 25.1 Anion Gap 12.1 BUN 30.0 H Creatinine 0.93 Est GFR ( Amer) >60 Est GFR (Non-Af Amer) >60 BUN/Creatinine Ratio 32.3 Glucose 114 H Calcium 8.6 Total Bilirubin 0.2 AST 97 H ALT 140 H Alkaline Phosphatase 281 H Ammonia 41 H* Total Protein 6.8 Albumin 1.6 L Globulin 5.2 Albumin/Globulin Ratio 0.3 Preliminary micro results at discharge 08/05/23 15:31 - Preliminary Blood NO GROWTH AT 36-48 HOURS. FINAL TO FOLLOW. 08/05/23 15:25 Blood Culture Result 1 - Preliminary Blood NO GROWTH AT 36-48 HOURS. FINAL TO FOLLOW. Discharge Plan Discharge Disposition: Xfer SNF Condition: Fair Discharge Medications: New carvedilol 6.25 mg Tablet 6.25 mg PO Q12H Qty: 60 11RF nystatin [Nystop] 100,000 unit/gram Powder 1 applic topical BID Qty: 60 11RF oxycodone 5 mg Tablet 5 mg PO Q4H PRN (Reason: Pain) Qty: 180 0RF Ensure Active Protein-Muscle Liquid 1 ea PO BID Qty: 5688 11RF Pro-Stat Sugar Free 15 gram- 100 kcal/30 mL Liquid In Packet 1 ea PO BID Qty: 2880 11RF Jim (with collagen) 7-7-1.5 gram Powder In Packet 1 packet PO BID Qty: 60 11RF linezolid 600 mg Tablet 600 mg PO Q12H Qty: 30 0RF levofloxacin 750 mg Tablet 750 mg PO QD Qty: 14 0RF Continued furosemide 40 mg tablet 40 mg PO DAILY meloxicam 7.5 mg tablet 7.5 mg PO BID pregabalin 75 mg capsule 75 mg PO TID Discontinued carvedilol 3.125 mg tablet 3.125 mg PO Q12H oxycodone 5 mg tablet 5 mg PO Q8H PRN (Reason: pain (scale score 7-10)) Patient Comments: UNTIL 08-12-23 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 Forms: Portal Instructions
--- NOTE | 2023-08-09 11:16 | RESP.RT ---
Pt requested RT to check and adjust pressures on home cpap/bipap machine. RT informed pt that those pressures need to be changed by the DME and that there would have to be an order for them to change the pressures.
[2023-08-09] MEDS: HYDROMORPHONE HCL 1 MG/ML CARTRIDGE IV (12:10)
[2023-08-09] MEDS: ERTAPENEM SODIUM 1 GM in 0.9 % SODIUM CHLORIDE 50 ML IV (12:11)
[2023-08-09] MEDS: LEVOFLOXACIN 750 MG TABLET PO (14:31)
== END 2023-08-09 15:56 | DRG 871 ==
LOC: ER 08-04 04:29 → MS 08-04 04:45
PROVIDERS: Family Medicine; Nurse Practitioner; Nurse Practitioner Acute Care; Admitting Provider Family Medicine; Emergency Provider Emergency Medicine; PCP Radiology Diagnostic Radiology; Visit Provider Family Medicine
DX: A40.0 Sepsis due to streptococcus, group A (principal); E43 Unspecified severe protein-calorie malnutrition; G93.41 Metabolic encephalopathy; L03.116 Cellulitis of left lower limb; L03.115 Cellulitis of right lower limb; Z68.43 Body mass index [BMI] 50.0-59.9, adult; L97.319 Non-pressure chronic ulcer of right ankle with unspecified severity; L97.829 Non-pressure chronic ulcer of other part of left lower leg with unspecified severity; B95.62 Methicillin resistant Staphylococcus aureus infection as the cause of diseases classified elsewhere; R05.9 Cough, unspecified; B96.89 Other specified bacterial agents as the cause of diseases classified elsewhere; B95.0 Streptococcus, group A, as the cause of diseases classified elsewhere; B96.4 Proteus (mirabilis) (morganii) as the cause of diseases classified elsewhere; R09.02 Hypoxemia; G47.33 Obstructive sleep apnea (adult) (pediatric); I11.0 Hypertensive heart disease with heart failure; I50.9 Heart failure, unspecified; R74.01 Elevation of levels of liver transaminase levels; E66.01 Morbid (severe) obesity due to excess calories; I89.0 Lymphedema, not elsewhere classified; Z79.1 Long term (current) use of non-steroidal anti-inflammatories (NSAID); R33.9 Retention of urine, unspecified; Z82.49 Family history of ischemic heart disease and other diseases of the circulatory system; Z79.899 Other long term (current) drug therapy
CPT/HCPCS: 0202U; 36415; 36600; 51702; 71045; 76705; 80053; 80074; 81001; 82140; 82805; 83605; 84100; 84145; 84484; 85007; 85025; 85027; 85610; 85730; 87040; 87070; 87086; 87150; 87186; 93005; 93306; 94660; 94667; 94668; 94761; 96365; 96366; 96367; 96368; 96372; 96375; 96376; 97110; 97163; 97165; 97530; 99285; G0328; J1170; J1335; J2020; J3370

== ENCOUNTER 2023-08-24 14:04 | Outpatient (OUT) | payer MEDICARE, OTHER, SELFPAY | END 2023-08-24 14:05 | disposition home or self-care (01) | LOC: WC 14:04 | PROVIDERS: PCP Radiology Diagnostic Radiology; Visit Provider Physician Assistant | DX: L97.418 Non-pressure chronic ulcer of right heel and midfoot with other specified severity (principal); L99 Other disorders of skin and subcutaneous tissue in diseases classified elsewhere | CPT/HCPCS: G0463 ==

== ENCOUNTER 2023-09-08 15:43 | Outpatient (OUT) | payer MEDICARE, OTHER, SELFPAY | END 2023-09-08 15:44 | disposition home or self-care (01) | LOC: WC 15:43 | PROVIDERS: PCP Radiology Diagnostic Radiology; Visit Provider Podiatrist Foot & Ankle Surgery | DX: I82.813 Embolism and thrombosis of superficial veins of lower extremities, bilateral (principal); L99 Other disorders of skin and subcutaneous tissue in diseases classified elsewhere; I87.2 Venous insufficiency (chronic) (peripheral); I89.0 Lymphedema, not elsewhere classified; R60.9 Edema, unspecified | CPT/HCPCS: G0463 ==

== ENCOUNTER 2023-10-05 16:26 | Outpatient (OUT) | payer MEDICARE, OTHER, SELFPAY | END 2023-10-05 16:27 | disposition home or self-care (01) | LOC: WC 16:26 | PROVIDERS: PCP Radiology Diagnostic Radiology; Visit Provider Physician Assistant | DX: R60.9 Edema, unspecified (principal); L99 Other disorders of skin and subcutaneous tissue in diseases classified elsewhere | CPT/HCPCS: G0463 ==

== ENCOUNTER 2023-10-12 14:46 | Outpatient (OUT) | payer MEDICARE, OTHER, SELFPAY | END 2023-10-12 14:47 | disposition home or self-care (01) | LOC: WC 14:47 | PROVIDERS: PCP Radiology Diagnostic Radiology; Visit Provider Physician Assistant | DX: I73.89 Other specified peripheral vascular diseases (principal); L84 Corns and callosities; L99 Other disorders of skin and subcutaneous tissue in diseases classified elsewhere | CPT/HCPCS: G0463 ==

== ENCOUNTER 2023-10-15 16:05 | Outpatient (OUT) | payer MEDICARE, OTHER, SELFPAY ==
--- OUTSIDE RECORDS SUMMARY | 2023-10-15 16:25 | XMS_ITS | CCD ---
Author Organization [facility] Care Team Providers Care Regasification Plant Operator Name Role Phone CARL TY Unavailable Unavailable AILEEN PEPE DRUMMOND Unavailable Unavailab leonard AllenShayla garcia Unavailable NO FAMILY, PHYSICIAN Primary Care Provider Unava ilable ANTHONY Theodore Emergency Provider [phone] ANTHONY Theodore Attending Provider BRITNEY Jimenez Attending Provider DO Reji Rangel Attending Provider DO Jhonatan Crowell Emergency Provider [phone] DO Jhonatan Crowell Attending Provider DO Jhonatan Crowell Attending Provider [phone] BRITNEY Leon Attending Provider DO Reji Rangel Attending Provider MD Laith Warner Emergency Provider DO Reji Rangel Attending Provider [phone] MD Laith Warner Attending Provider [phone] DO Chon Valdez Emergency Provider DO Abimbola Bran A Primary Care Provider Abimbola Bran Unavailable Liath Carlson Unavailable NO FAMILY, PHYSICIAN Primary Care Provider Unava ilable DO Reji Rangel Attending Provider MD Laith Carlson Attending Provider MD Albino Saxena Attending Provider NO FAMILY, PHYSICIAN Primary Care Provider Unava ilable Yina DO Abimbola A Primary Care Provider Mervat Jhonatan Efrain Emergency Provider JaquelinFormerly [facility] Sarah E Emergency Provider MD Neeraj Farrell Admit Provider MD Neeraj Farrell Attending Provider DO Yina Abimbola A Primary Care Provider [phone] MD Laith Carlson Attending Provider MD Albino Saxena Attending Provider Mervat DO Jhonatan Zuniga Emergency Provider [phone] E Emergency Provider [phone] MD Neeraj Farrell Admit Provider MD Selvin Bey Attending Provider MD Laith Carlson Other Provider Bran, Abimbola A Primary Care Unavailable Albino Saxena Attending Unavailable Albino Saxena Admitting Unavailable Laith Carlson Admitting Unavailable Bran, Abimbola A Primary Care Unavailable Laith Carlson Attending Unavailable Laith Warner Attending Unavailable Laith Warner Admitting Unavailable NO FAMILY, PHYSICIAN Primary Care Unavailable NO FAMILY, PHYSICIAN Primary Care Unavailable MervatRileyed M Attending Unavailable Mervat, Jhonatan M Admitting Unavailable NO FAMILY, PHYSICIAN Primary Care Unavailable Reji Rangel Attending Unavailable Reji Rangel Admitting Unavailable ObarieleyEvelyn sommer Attending Unavailable Evelyn Leon Admitting Unavailable NO FAMILY, PHYSICIAN Primary Care Unavailable Mervat, Jhonatan M Attending Unavailable Mervat, Jhonatan M Admitting Unavailable Bran, Abimbola A Primary Care Unavailable Bran, Abimbola A Primary Care Unavailable Chon Valdez Attending Unavailable Chon Valdez Admitting Unavailable Laith Warner Attending Unavailable Laith Warner Admitting Unavailable NO FAMILY, PHYSICIAN Primary Care Unavailable NO FAMILY, PHYSICIAN Primary Care Unavailable Mervat, Jhonatan M Attending Unavailable Mervat, Jhonatan M Admitting Unavailable Gerald Theodore Attending Unavailable Gerald Theodore Admitting Unavailable NO FAMILY, PHYSICIAN Primary Care Unavailable Laith Carlson Consulting Unavailable Selvin Bey Attending Unavailable Neeraj Farrell [...] Orally every 8 hrs for 30 days [facility] [place], Active acetaminophen 325 mg / oxyCODONE hydrochloride 5 mg oral tablet (17 sources) Opioid Agonist Start: 03-24-2023 take 1 tablet by mouth every six hours Start: 01-21-2023 take 2 tablets by mo ut once daily Percocet 5-325 MG 2 tablets 1/2 hour before dressing changes to her legs Orally daily for 21 days Jan, Active Start: 01-07-2023 take 2 tablets by mo ut once [...] Laxative Start: 04-17-2023 Bisacodyl Active 10 MG MT Daily 0 April 17, 2023 12:00am brompheniramine maleate 0.4 mg/ml / dextromethorphan hydrobromide 2 mg/ml / pseudoephedrine hydrochloride 6 mg/ml oral solution (2 sources) alpha-Adrenergic Agonist, Uncompetitive I-mnymcs-G-aspartat e Receptor Antagonist, Sigma-1 Agonist Start: 06-06-2021 [...] capsule with food Orally Once a day [facility] [place], Active Start: 04-16-2023 take 100 mg [...] MG/0.4ML 0.3 mL Injection Once a day [facility] Apr, Active ertapenem 1000 mg injection (2 [...] Orally every 4 hrs for 14 days [facility] Jun, Active Start: 04-16-2023 take 1 tablet by estuardo th every four hours oxyCODONE HCl 5 MG 1 tablet as needed Orally every 4 hrs [facility] Apr, Active Start: 04-16-2023 take 2.5 mg by mouth every four hours Oxycodone Active 2.5 MG PO Every 4 hours 03 12April 16, 2023 polyethylene glycol 3350 82781 mg powder for oral solution (1 source) Osmotic Laxative Start: 04-17-2023 Polyethylene Glycol 3350 (Healthylax) 17 gram Powder In Packet Active 17 GM PO Daily April 17, 2023 9:43am pregabalin 75 mg oral capsule (6 sources) Start: 06-09-2023 take 1 capsule by mouth every eight hours Pregabalin 75 MG 1 capsule Orally three times a day for 90 days [facility] Jun, Active Start: 04-16-2023 take 1 capsule by mo [facility] every twelve hours Pregabalin 50 MG 1 capsule Orally Twice a day [facility] Apr, Active Sennosides (Senokot) 8.6 mg tablet [...] Discontinued 100 MG PO Twice daily 28 November 30, 2022 11:00pm February 03, 2023 [...] Start: 02-24-2023 take 1 capsule by mo [facility] every eight hours Gabapentin 300 MG [...] 12-29-2022 take 1 tablet by estuardo every twelve hours Linezolid 600 MG 1 [...] coagulation studies. Please contact the laboratory at [phone] for redraw instructions. Alanine aminotransferase [En zymatic activity/volume] in Serum or PlasmaOrdered By: Selvin Bey on 04-15-2023 ALT [Catalytic activity/Vol] 118 U/L 7-52 [facility] Albumin [Mass/volume] in Ser um or Plasma by Bromocresol green (BCG) dye binding methoOrdered By: Selvin Bey on 04-15-2023 Albumin BCG dye [Mass/Vol] 3.3 g/dL 3.5-5.7 [facility] Alkaline phosphatase [Enzyma tic activity/volume] in Serum or PlasmaOrdered By: Selvin Bey on 04-15-2023 ALP [Catalytic activity/Vol] 77 U/L 34-104 [facility] Aspartate aminotransferase [ Enzymatic activity/volume] in Serum or PlasmaOrdered By: Selvin Bey on 04-15-2023 AST [Catalytic activity/Vol] 48 U/L 13-39 [facility] Bilirubin.direct [Mass/volum e] in Serum or PlasmaOrdered By: Selvin Bey on 04-15-2023 Bilirubin.direct [Mass/Vol] 0.10 mg/dL 0.03-0.18 [facility] Bilirubin.total [Mass/volume ] in Serum or PlasmaOrdered By: Selvin Bey on 04-15-2023 Bilirubin [Mass/Vol] 0.5 mg/dL 0.3-1.0 [facility] C reactive protein [Mass/vol ume] in Serum or PlasmaOrdered By: Laith Carlson on 04-15-2023 CRP [Mass/Vol] 3.1 mg/dL 0.0-0.5 [facility] C-Reactive Proteinon 023 C-Reactive Protein 3.1 mg/dL High 0.0-0.[address] [facility] Comment on above: Result Comment: PERF ORMED BY: [place] [address] PATHOLOGIST DELICATE FABR[employer] PRESSER IAN ACE M.D. Performed By: #### C UBLD, CMP, CBC #### [facility] [address] [place] [address] [place] Globulin Calc (S) [Mass/Vol] Ordered By: Selvin Bey on 04-15-2023 Globulin (S) [Mass/Vol] 4.3 g/dL [facility] Hepatic Panelon 04-15-2023 Albumin [Mass/Vol] 3.3 g/dL Low 3.5-5.[address] [facility] Comment on above: Performed By: #### C UBLD, CMP, CBC #### [facility] [address] [place] [address] [place] Albumin/Globulin [Mass ratio] 0.8 {ratio} Normal [facility] Comment on above: Performed By: #### C UBLD, CMP, CBC #### [facility] [address] ALP [Catalytic activity/Vol] 77 U/L Normal 34-104 [facility] Comment on above: Performed By: #### C UBLD, CMP, CBC #### [facility] [address] [place] [id number] [facility] ALT [Catalytic activity/Vol] 118 U/L High 7-52 [facility] Comment on above: Performed By: #### C UBLD, CMP, CBC #### [facility] [address] Aspartate Amino Transferase Normal 13-39 [facility] Comment on above: Result Comment: Spec imen hemolyzed, redraw requested Performed By: #### C UBLD, CMP, CBC #### [facility] [address] Bilirubin [Mass/Vol] 0.5 mg/dL Normal 0.3-1.0 [facility] Comment on above: Performed By: #### C UBLD, CMP, CBC #### [facility] [address] [place] [address] [place] Bilirubin,Direct Normal 0.03-0.18 [facility] Comment on above: Result Comment: Spec imen hemolyzed, redraw requested Performed By: #### C UBLD, CMP, CBC #### [facility] [address] [place] [address] [place] Bilirubin,Indirect Not performed Normal [facility] Comment on above: Performed By: #### C UBLD, CMP, CBC #### [facility] [address] [place] [address] [place] Globulin (S) [Mass/Vol] 4.3 g/dL Normal [facility] Comment on above: Performed By: #### C UBLD, CMP, CBC #### [facility] [address] [place] [address] [place] Protein [Mass/Vol] 7.6 g/dL Normal 6.4-8.[address] [facility] Comment on above: Performed By: #### C UBLD, CMP, CBC #### [facility] [address] [place] [address] [place] INR in Platelet poor plasma by Coagulation assayOrdered By: Laith Carlson on 04-15-2023 INR Coag (PPP) [Relative time] 1.0 {INR} [facility] Comment on above: INR Therapeutic Rang [...] coagulation studies. Please contact the laboratory at [phone] for redraw instructions. PERFORMED BY: [place] [address] PATHOLOGIST DELIC[employer] PRESSER IAN ACE M.D. Performed By: #### C ALEXX RAND, CBC #### [facility] [address] [place] [address] [place] Phosphate [Mass/volume] in S marivel or PlasmaOrdered By: Selvin Bey on 04-15-2023 Phosphate [Mass/Vol] 3.2 mg/dL 2.5-4.5 [facility] Phosphoruson 04-15-2023 Phosphate [Mass/Vol] 3.2 mg/dL Normal 2.5-4.5 [facility] Comment on above: Result Comment: PERF ORMED BY: [place] [address] PATHOLOGIST DELIC[employer] PRESSER IAN ACE M.D. Performed By: #### C UBPREMA, CMP, CBC #### [facility] [address] [place] [address] [place] Protein [Mass/volume] in Ser um or PlasmaOrdered By: Selvin Bey on 04-15-2023 Protein [Mass/Vol] 7.6 g/dL 6.4-8.[address] [facility] Prothrombin Time INRon 04-15 INR Coag (PPP) [Relative time] 1.0 {INR} Normal [facility] Comment on above: Result Comment: INR [...] By: #### C UBLD, CMP, CBC #### [facility] [address] [place] [address] [facility] PT Coag (PPP) [Time] 11.9 s Normal 9.0-12.9 [facility] Comment on above: Result Comment: A he matocrit value greater than 55% may lead to inaccurate results in coagulation testing. Patients having hematocrit values >55% require a special collection tube for coagulation studies. Please contact the laboratory at [phone] for redraw instructions. Performed By: #### C UBLD, CMP, CBC #### [facility] [address] [place] [address] [facility] Prothrombin time (PT)Ordered By: Laith Carlson on 04-15-2023 PT Coag (PPP) [Time] 11.9 s 9.0-12.9 [facility] Comment on above: A hematocrit value g reater than 55% may lead to inaccurate results in coagulation testing. Patients having hematocrit values >55% require a special collection tube for coagulation studies. Please contact the laboratory at [phone] for redraw instructions. Redraw Renaldo 04-15-2023 AST [Catalytic activity/Vol] 48 U/L High 13-39 [facility] Comment on above: Result Comment: PERF ORMED BY: [facility] [address] [place] [address] PATHOLOGIST DELICATE [employer] PRESSER IAN ACE M.D. Performed By: #### C UBLD, CMP, CBC #### [facility] [address] Redraw Bilirubin,Directon Redraw Bilirubin,Direct 0.10 mg/dL Normal 0.03-0.18 [facility] Comment on above: Performed By: #### R EDRAW AST, REDRAW DBIL #### [facility] [address] [place] [address] Serum or plasma albumin/glob ulin mass ratioOrdered By: Selvin Bey on 04-15-2023 Albumin/Globulin [Mass ratio] 0.8 {ratio} [facility] Serum or plasma non-glucuron idated bilirubin measurement (mass/volume)Ordered By: Selvin Bey on 04-15-2023 Bilirubin.indirect [Mass/Vol] TNP [facility] Comment on above: Test not performed US abdomen limitedon 023 US abdomen limited [facility] [address] [place] [address] [place] [address] Ultrasound Report Signed Patient: [place] Cesar MR#: [id number] : 1955 Acct:[id number] Age/Sex: 67 / F ADM Date: 04/10/23 Loc: Room: [address] [place] [address] Type: ADM IN Attending Dr: Selvin Bey [...] Padmini Bethea M.D.04/15/2023 10:01 AM Dictation Location: [place] [address] Tech: Elyse Hart Transcribed By: MARIA VICTORIA 04/15/23 1001 Dictated By: Padmini Bethea MD 04/15/23 0959 Signed By: 04/15/23 1001 Normal [facility] Anisocytosis LM Ql (Bld)Orde red By: Selvin Bey on 04-14-2023 Anisocytosis Ql (Bld) Slight [facility] Band form neutrophils/100 WB C Manual cnt (Bld)Ordered By: Selvin Bey on 04-14-2023 Band form neutrophils/100 WBC (Bld) 2 % 0-5 [facility] Basophils Auto (Bld) [#/Vol] Ordered By: Selvin Bey on 04-14-2023 Basophils (Bld) [#/Vol] N/A [facility] Basophils/100 WBC Auto (Bld) Ordered By: Selvin Bey on 04-14-2023 Basophils/100 WBC (Bld) N/A [facility] Basophils/100 WBC Manual cnt (Bld)Ordered By: Selvin Bey on 04-14-2023 Basophils/100 WBC (Bld) 1 % 0-2 [facility] Calcium [Mass/volume] in Ser um or PlasmaOrdered By: Selvin Bey on 04-14-2023 Calcium [Mass/Vol] 9.4 mg/dL 8.6-10.[address] [facility] Carbon dioxide, total [Moles /volume] in Serum or PlasmaOrdered By: Selvin Bey on 04-14-2023 CO2 [Moles/Vol] 20.5 mmol/L 21.0-31.0 [facility] Chloride [Moles/volume] in S marivel or PlasmaOrdered By: Selvin Bey on 04-14-2023 Chloride [Moles/Vol] 102 mmol/L 98-107 [facility] Comprehensive Metabolic Pane jeremy 04-14-2023 Albumin [Mass/Vol] 3.3 g/dL Low 3.5-5.[address] [facility] Comment on above: Performed By: #### C UBLD, CMP, CBC #### [facility] [address] Albumin/Globulin [Mass ratio] 0.8 {ratio} Normal [facility] Comment on above: Performed By: #### C UBLD, CMP, CBC #### [facility] [address] ALP [Catalytic activity/Vol] 82 U/L Normal 34-104 [facility] Comment on above: Performed By: #### C UBLD, CMP, CBC #### [facility] [address] ALT [Catalytic activity/Vol] 150 U/L High 7-52 [facility] Comment on above: Performed By: #### C UBLD, CMP, CBC #### [facility] [address] Anion gap [Moles/Vol] 11.3 mmol/L Normal 6.0-15.0 [facility] Comment on above: Performed By: #### C UBLD, CMP, CBC #### [facility] [address] AST [Catalytic activity/Vol] 79 U/L High 13-39 [facility] Comment on above: Performed By: #### C UBLD, CMP, CBC #### [facility] [address] [place] [address] [place] Bilirubin [Mass/Vol] 0.4 mg/dL Normal 0.3-1.0 [facility] Comment on above: Performed By: #### C UBLD, CMP, CBC #### [facility] [address] [place] [address] [place] Calcium [Mass/Vol] 9.4 mg/dL Normal 8.6-10.[address] [facility] Comment on above: Performed By: #### C UBLD, CMP, CBC #### [facility] [address] [place] [address] [place] Chloride [Moles/Vol] 102 mmol/L Normal 98-107 [facility] Comment on above: Performed By: #### C UBLD, CMP, CBC #### [facility] [address] CO2 [Moles/Vol] 20.5 mmol/L Low 21.0-31.0 [facility] Comment on above: Performed By: #### C UBLD, CMP, CBC #### [facility] [address] Creatinine [Mass/Vol] 0.86 mg/dL Normal 0.60-1.20 [facility] Comment on above: Performed By: #### C UBLD, CMP, CBC #### [address] Creatinine Clr Calc Pharmacy 87.48 [facility] Comment on above: Performed By: #### C UBLD, CMP, CBC #### [address] GFR/1.73 sq M.predicted MDRD (S/P/Bld) [Vol rate/Area] mL/min/{1.73_m2} [facility] Comment on above: Performed By: #### C UBPREMA, CMP, CBC #### [address] Globulin (S) [Mass/Vol] 4.0 g/dL [facility] Comment on above: Performed By: #### C UBLD, CMP, CBC #### [address] Glucose [Mass/Vol] 108 mg/dL High 70-[address] [facility] Comment on above: Result Comment: [place] Glucose Reference Range is dependent on time and content of last meal. Glucose of more than 200 mg/dL in a nonstressed, ambulatory subject supports the diagnosis of Diabetes Mellitus. ADA recommended reference range Performed By: #### C UBLD, CMP, CBC #### [address] Potassium [Moles/Vol] 3.8 mmol/L Normal 3.5-5.1 [facility] Comment on above: Performed By: #### C UBLD, CMP, CBC #### [facility] [address] [place] [address] [place] Protein [Mass/Vol] 7.3 g/dL Normal 6.4-8.[address] [facility] Comment on above: Performed By: #### C UBLD, CMP, CBC #### [facility] [address] [place] [address] [place] Sodium [Moles/Vol] 130 mmol/L Low 136-[address] [facility] Comment on above: Performed By: #### C UBLD, CMP, CBC #### [facility] [address] [place] [address] [place] Urea nitrogen [Mass/Vol] 37 mg/dL High 7-25 [facility] Comment on above: Performed By: #### C UBLD, CMP, CBC #### [facility] [address] [place] [address] [place] Creatinine [Mass/volume] in Serum or PlasmaOrdered By: Selvin Bey on 04-14-2023 Creatinine [Mass/Vol] 0.86 mg/dL 0.60-1.20 [facility] Diff and CBCon 04-14-2023 Anisocytosis Ql (Bld) Slight Normal [facility] Comment on above: Performed By: #### C UBLD, CMP, CBC #### [facility] [address] [place] [address] [place] Band form neutrophils/100 WBC (Bld) 2 % Normal 0-5 [facility] Comment on above: Performed By: #### C UBLD, CMP, CBC #### [facility] [address] [place] [id number] [place] Basophils/100 WBC (Bld) 1 % Normal 0-2 [facility] Comment on above: Performed By: #### C UBLD, CMP, CBC #### [facility] [address] [place] [address] [place] Eosinophils/100 WBC (Bld) 3 % Normal 1-3 [facility] Comment on above: Performed By: #### C UBLD, CMP, CBC #### [facility] [address] Erythrocyte distribution width (RBC) [Ratio] 16.9 % High 11.9-15.3 [facility] Comment on above: Performed By: #### C UBLD, CMP, CBC #### [facility] [address] Giant Platelet Tally 2 /100{WBC} Normal [facility] Comment on above: Performed By: #### C UBLD, CMP, CBC #### [facility] [address] Hematocrit (Bld) [Volume fraction] 36.0 % Normal 34.0-46.4 [facility] Comment on above: Performed By: #### C UBLD, CMP, CBC #### [address] Hemoglobin (Bld) [Mass/Vol] 11.5 g/dL Low 11.8-15.4 [facility] Comment on above: Performed By: #### C UBLD, CMP, CBC #### [address] Lymphocytes/100 WBC (Bld) 13 % Low 18-42 [facility] Comment on above: Performed By: #### C UBLD, CMP, CBC #### [address] MCH (RBC) [Entitic mass] 26.0 pg Normal 24.7-34.3 [facility] Comment on above: Performed By: #### C UBLD, CMP, CBC #### [address] MCV (RBC) [Entitic vol] 81.0 fL Normal 80-100 [facility] Comment on above: Performed By: #### C UBLD, CMP, CBC #### [address] Mean Corpuscular HGB Conc 32.1 g/dL Normal 32.0-35.0 [facility] Comment on above: Performed By: #### C UBLD, CMP, CBC #### [place] [address] [place] Metamyelocytes 3 % High 0-0 [facility] Comment on above: Performed By: #### C UBLD, CMP, CBC #### [address] Microcytosis Slight Normal [facility] Comment on above: Performed By: #### C UBLD, CMP, CBC #### [address] Monocytes/100 WBC (Bld) 8 % Normal 2-11 [facility] Comment on above: Performed By: #### C UBLD, CMP, CBC #### [address] Nucleated Red Blood Cell 2 /100{WBC} High 0-0 [facility] Comment on above: Performed By: #### C UBLD, CMP, CBC #### [address] Platelet Estimate Increased Normal Normal [facility] Comment on above: Performed By: #### C UBLD, CMP, CBC #### [address] Platelet mean volume (Bld) [Entitic vol] 7.0 fL Normal 6.3-10.7 [facility] Comment on above: Result Comment: PERF ORMED BY: [place] [address] PATHOLOGIST DELIC[employer] PRESSER IAN ACE M.D. Performed By: #### C UBLD, CMP, CBC #### [address] Platelet Morphology Normal Normal Normal [facility] Comment on above: Result Comment: PERF ORMED BY: [place] [address] PATHOLOGIST DELIC[employer] PRESSER IAN ACE M.D. Performed By: #### C UBLD, CMP, CBC #### [place] [address] [place] Platelets (Bld) [#/Vol] 457 10*3/uL High 150-450 [facility] Comment on above: Performed By: #### C UBLD, CMP, CBC #### [facility] [address] Polychromasia Slight Normal [facility] Comment on above: Performed By: #### C UBLD, CMP, CBC #### [facility] [address] RBC (Bld) [#/Vol] 4.44 10*6/uL Normal 3.60-5.00 [facility] Comment on above: Performed By: #### C UBLD, CMP, CBC #### [facility] [address] Segmented neutrophils/100 WBC (Bld) 71 % High 50-70 [facility] Comment on above: Performed By: #### C UBLD, CMP, CBC #### [facility] [address] WBC (Bld) [#/Vol] 6.5 10*3/uL Normal 3.8-11.[address] [facility] Comment on above: Performed By: #### C UBLD, CMP, CBC #### [address] Eosinophils Auto (Bld) [#/Vo l]Ordered By: Selvin Bey on 04-14-2023 Eosinophils (Bld) [#/Vol] N/A [facility] Eosinophils/100 WBC Auto (Bl d)Ordered By: Selvin Bey on 04-14-2023 Eosinophils/100 WBC (Bld) N/A [facility] Eosinophils/100 WBC Manual c nt (Bld)Ordered By: Selvin Bey on 04-14-2023 Eosinophils/100 WBC (Bld) 3 % 1-3 [facility] Erythrocyte distribution wid th Auto (RBC) [Ratio]Ordered By: Selvin Bey on 04-14-2023 Erythrocyte distribution width (RBC) [Ratio] 16.9 % 11.9-15.3 [facility] Giant platelets/100 leukocyt es [Ratio] in Blood by Manual countOrdered By: Selvin Bey on 04-14-2023 Giant platelets/100 WBC Manual cnt (Bld) [Ratio] 2 /100{WBC} [facility] Glucose [Mass/volume] in Ser um or PlasmaOrdered By: Selvin Bey on 04-14-2023 Glucose [Mass/Vol] 108 mg/dL 70-[address] [facility] Comment on above: ADA recommended refe rence rangeRandom Glucose Reference Range is dependent on time and content of last meal. Glucose of more than 200 mg/dL in a nonstressed, ambulatory subject supports the diagnosis of Diabetes Mellitus. Hematocrit Auto (Bld) [Volum e fraction]Ordered By: Selvin Bey on 04-14-2023 Hematocrit (Bld) [Volume fraction] 36.0 % 34.0-46.4 [facility] Hemoglobin [Mass/volume] in BloodOrdered By: Selvin Bey on 04-14-2023 Hemoglobin (Bld) [Mass/Vol] 11.5 g/dL 11.8-15.4 [facility] Hepatitis Acute Panelon 11-0 HBsAg Screen Negative Normal Negative [facility] Comment on above: Performed By: #### L ACTIC, CMP, CBC #### [facility] [address] [place] [address] Hepatitis A Antibody IgM Negative Normal Negative [facility] Comment on above: Performed By: #### L ACTIC, CMP, CBC #### [facility] [address] [place] [address] Hepatitis B Core Antibody IgM Negative Normal Negative [facility] Comment on above: Performed By: #### L ACTIC, CMP, CBC #### [facility] [address] [place] [address] Hepatitis C Virus Antibody Non-Reactive Normal Non Reactive [facility] Comment on above: Performed By: #### L ACTIC, CMP, CBC #### [facility] [address] [place] [address] Interpretation Hepatitis C Normal . [facility] Comment on above: Result Comment: Not infected with HCV unless early or acute infection is suspected (which may be delayed in an immunocompromised individual), or other evidence exists to indicate HCV infection. Performed at: - [facility] [address], [place], [place] [id number] Poultry Killer: Mohsen Mccarthy PhD, Phone: [phone] PERFORMED BY: [place] [address] PATHOLOGIST DELIC[employer] PRESSER IAN ACE M.D. Performed By: #### L ACTIC, CMP, CBC #### [address] Hepatitis B virus surface Ag [Presence] in Serum or Plasma by ImmunoassayOrdered By: Selvin Bey on 04-14-2023 HBV surface Ag IA Ql Negative Negative [facility] Hepatitis C virus IgG Ab [Pr esence] in Serum or Plasma by ImmunoassayOrdered By: Selvin Bye on 04-14-2023 HCV IgG IA Ql Non-Reactive Non Reactive [facility] Hepatitis C virus RNA [Units /volume] (viral load) in Serum or Plasma by JUJU with probOrdered By: Selvin Bey on 04-14-2023 HCV RNA JUJU+probe Qn N/A [facility] Hepatitis C virus RNA [log u nits/volume] (viral load) in Serum or Plasma by JUJU withOrdered By: Selvin Bey on 04-14-2023 HCV RNA JUJU+probe [Log units/Vol] N/A [facility] Leukocytes [#/volume] correc julia for nucleated erythrocytes in Blood by Automated counOrdered By: Selvin Bey on 04-14-2023 WBC corrected for nucl RBC Auto (Bld) [#/Vol] 6.5 10*3/uL 3.8-11.6 [facility] Lymphocytes Auto (Bld) [#/Vo l]Ordered By: Selvin Bey on 04-14-2023 Lymphocytes (Bld) [#/Vol] N/A [facility] Lymphocytes/100 WBC Auto (Bl d)Ordered By: Selvin Bey on 04-14-2023 Lymphocytes/100 WBC (Bld) N/A [facility] Lymphocytes/100 WBC Manual c nt (Bld)Ordered By: Selvin Bey on 04-14-2023 Lymphocytes/100 WBC (Bld) 13 % 18-42 [facility] MCH Auto (RBC) [Entitic mass ]Ordered By: Selvin Bey on 04-14-2023 MCH (RBC) [Entitic mass] 26.0 pg 24.7-34.3 [facility] MCHC Auto (RBC) [Mass/Vol]Or dered By: Selvin Bey on 04-14-2023 MCHC (RBC) [Mass/Vol] 32.1 g/dL 32.0-35.0 [facility] MCV Auto (RBC) [Entitic vol] Ordered By: Selvin Bey on 04-14-2023 MCV (RBC) [Entitic vol] 81.0 fL 80-100 [facility] Magnesiumon 04-14-2023 Magnesium [Mass/Vol] 2.3 mg/dL Normal 1.9-2.7 [facility] Comment on above: Result Comment: PERF ORMED BY: [place] [address] PATHOLOGIST [employer] PRESSER IAN ACE M.D. Performed By: #### C UBLD, CMP, CBC #### [address] Magnesium [Mass/volume] in S marivel or PlasmaOrdered By: Selvin Bey on 04-14-2023 Magnesium [Mass/Vol] 2.3 mg/dL 1.9-2.7 [facility] Metamyelocytes/100 WBC Manua l cnt (Bld)Ordered By: Selvin Bey on 04-14-2023 Metamyelocytes/100 WBC (Bld) 3 % 0-0 [facility] Microcytes LM Ql (Bld)Ordere d By: Selvin Bey on 04-14-2023 Microcytes Ql (Bld) Slight [facility] Monocytes Auto (Bld) [#/Vol] Ordered By: Selvin Bey on 04-14-2023 Monocytes (Bld) [#/Vol] N/A [facility] Monocytes/100 WBC Auto (Bld) Ordered By: Selvin Bey on 04-14-2023 Monocytes/100 WBC (Bld) N/A [facility] Monocytes/100 WBC Manual cnt (Bld)Ordered By: Selvin Bey on 04-14-2023 Monocytes/100 WBC (Bld) 8 % 2-11 [facility] Neutrophils Auto (Bld) [#/Vo l]Ordered By: Selvin Bey on 04-14-2023 Neutrophils (Bld) [#/Vol] N/A [facility] Neutrophils/100 WBC Auto (Bl d)Ordered By: Selvin Bey on 04-14-2023 Neutrophils/100 WBC (Bld) N/A [facility] No Panel InformationOrdered By: Selvin Bey on 04-14-2023 Hepatitis A IgM Antibody Negative Negative [facility] Hepatitis B Core IgM Antibody Negative Negative [facility] Hepatitis C Interpretation See comment . [facility] Comment on above: Not infected with HC V unless early or acute infection issuspected (which may be delayed in an immunocompromisedindividual), or other evidence exists to indicate HCVinfection.Performed at: [facility] [place] [id number] Director: Mohsen Mccarthy PhD, Phone: [phone] Estimated GFR (CKD-EPI) > 60.0 mL/Min [facility] Creatinine Clearance (Chem 87.48 [facility] Nucleated RBC/100 WBC Manual cnt (Bld) [Ratio]Ordered By: Selvin Bey on 04-14-2023 Nucleated RBC/100 WBC (Bld) [Ratio] 2 /100{WBC} 0-0 [facility] Nucleated erythrocytes [Pres ence] in Blood by Automated countOrdered By: Selvin Bey on 04-14-2023 Nucleated RBC Auto Ql (Bld) N/A [facility] Phosphoruson 04-14-2023 Phosphate [Mass/Vol] 2.6 mg/dL Low 3.7-7.2 [facility] Comment on above: Performed By: #### C UBLD, CMP, CBC #### [facility] [address] Platelet adequacy [Presence] in Blood by Light microscopyOrdered By: Selvin Bey on 04-14-2023 Platelets LM Ql (Bld) Increased Normal [facility] Platelet mean volume Auto (B ld) [Entitic vol]Ordered By: Selvin Bey on 04-14-2023 Platelet mean volume (Bld) [Entitic vol] 7.0 fL 6.3-10.7 [facility] Platelet morphology finding [Identifier] in BloodOrdered By: Selvin Bey on 04-14-2023 Platelet morphology finding Nom (Bld) Normal Normal [facility] Platelets Auto (Bld) [#/Vol] Ordered By: Selvin Bey on 04-14-2023 Platelets (Bld) [#/Vol] 457 10*3/uL 150-450 [facility] Polychromasia [Presence] in Blood by Light microscopyOrdered By: Selvin Bye on 04-14-2023 Polychromasia LM Ql (Bld) Slight [facility] Potassium [Moles/volume] in Serum or PlasmaOrdered By: Selvin Bey on 04-14-2023 Potassium [Moles/Vol] 3.8 mmol/L 3.5-5.1 [facility] RBC Auto (Bld) [#/Vol]Ordere d By: Selvin Bey on 04-14-2023 RBC (Bld) [#/Vol] 4.44 10*6/uL 3.60-5.00 [facility] RBC morphologyOrdered By: Ra taco Bey on 04-14-2023 RBC morphology finding Nom (Bld) N/A [facility] Segmented neutrophils/100 WB C Manual cnt (Bld)Ordered By: Selvin Bey on 04-14-2023 Segmented neutrophils/100 WBC (Bld) 71 % 50-70 [facility] Serum or plasma anion gap de terminationOrdered By: Selvin Bey on 04-14-2023 Anion gap [Moles/Vol] 11.3 mmol/L 6.0-15.0 [facility] Sodium [Moles/volume] in Ser um or PlasmaOrdered By: Selvin Bey on 04-14-2023 Sodium [Moles/Vol] 130 mmol/L 136-[address] [facility] US venous duplex LE BIon US venous duplex LE BI [facility] [address] [place] [address] [place] [address] Ultrasound Report Signed Patient: [place] Cesar MR#: [id number] : 1955 Acct:[id number] Age/Sex: 67 / F ADM Date: 04/10/23 Loc: Room: [address] [place] [address] Type: ADM IN Attending Dr: Selvin Bey [...] Du Zaragoza M.D.04/14/2023 11:07 AM Dictation Location: [id number] Tech: Hermelinda Knox Transcribed By: MARIA VICTORIA 04/14/231106 Dictated By: Du Zaragoza MD 04/14/231105 Signed By: 04/14/231106 Normal [facility] Urea nitrogen [Mass/volume] in Serum or PlasmaOrdered By: Selvin Bey on 04-14-2023 Urea nitrogen [Mass/Vol] 37 mg/dL 7-25 [facility] Vancomycin,Troughon 04-14-20 Vancomycin,Trough 16.7 ug/mL Normal 10.0-20.0 [facility] Comment on above: Result Comment: Last dose: - PERFORMED BY: [place] [address] PATHOLOGIST DEL[employer] PRESSER IAN ACE M.D. Performed By: #### C UBLD, CMP, CBC #### [facility] [address] [place] [address] WBC Auto (Bld) [#/Vol]Ordere d By: Selvin Bye on 04-14-2023 WBC (Bld) [#/Vol] 6.5 10*3/uL 3.8-11.[address] [facility] Basic Metabolic Panelon Anion gap [Moles/Vol] 11.7 mmol/L Normal 6.0-15.0 [facility] Comment on above: Performed By: #### L ACTIC, CMP, CBC #### [address] Calcium [Mass/Vol] 8.9 mg/dL Normal 8.6-10.[address] [facility] Comment on above: Performed By: #### L ACTIC, CMP, CBC #### [facility] [address] [place] [address] [place] Chloride [Moles/Vol] 100 mmol/L Normal 98-107 [facility] Comment on above: Performed By: #### L ACTIC, CMP, CBC #### [facility] [address] [place] [address] CO2 [Moles/Vol] 20.7 mmol/L Low 21.0-31.0 [facility] Comment on above: Performed By: #### L ACTIC, CMP, CBC #### [facility] [address] [place] [address] [place] Creatinine [Mass/Vol] 1.10 mg/dL Normal 0.60-1.20 [facility] Comment on above: Performed By: #### L ACTIC, CMP, CBC #### [facility] [address] [place] [address] [place] Creatinine Clr Calc Pharmacy 68.40 Normal [facility] Comment on above: Result Comment: PERF ORMED BY: [place] [address] PATHOLOGIST DEL[employer] PRESSER IAN ACE M.D. Performed By: #### L ACTIC, CMP, CBC #### [facility] [address] [place] [address] [place] GFR/1.73 sq M.predicted MDRD (S/P/Bld) [Vol rate/Area] 55.418 mL/min/{1.73_m2} [facility] Comment on above: Performed By: #### L ACTIC, CMP, CBC #### [facility] [address] Glucose [Mass/Vol] 132 mg/dL High 70-[address] [facility] Comment on above: Result Comment: [facility] Glucose Reference Range is dependent on time and content of last meal. Glucose of more than 200 mg/dL in a nonstressed, ambulatory subject supports the diagnosis of Diabetes Mellitus. ADA recommended reference range Performed By: #### L ACTIC, CMP, CBC #### [facility] [address] [place] [address] [place] Potassium [Moles/Vol] 3.4 mmol/L Low 3.5-5.1 [facility] Comment on above: Performed By: #### L ACTPERCY, CMP, CBC #### [facility] [address] [place] [address] [place] Sodium [Moles/Vol] 129 mmol/L Low 136-[address] [facility] Comment on above: Performed By: #### L ACTIC, CMP, CBC #### [facility] [address] [place] [address] [place] Urea nitrogen [Mass/Vol] 42 mg/dL High 7-25 [facility] Comment on above: Performed By: #### L ACTIC, CMP, CBC #### [facility] [address] Ovalocyte detectionOrdered B y: Malorie Nathan on 04-13-2023 Ovalocytes LM Ql (Bld) Slight [facility] Platelets Large [Presence] i n Blood by Light microscopyOrdered By: Malorie Nathan on 04-13-2023 Platelets Large LM Ql (Bld) Slight [facility] Poikilocytosis [Presence] in Blood by Light microscopyOrdered By: Malorie Nathan on 04-13-2023 Poikilocytosis LM Ql (Bld) Slight [facility] Scan and CBCon 04-13-2023 Anisocytosis Ql (Bld) Slight Normal [facility] Comment on above: Performed By: #### L ACTIC, CMP, CBC #### [facility] [address] [place] [address] [place] Basophils (Bld) [#/Vol] 0.1 10*3/uL Normal 0.0-0.2 [facility] Comment on above: Performed By: #### L ACTIC, CMP, CBC #### [facility] [address] [place] [address] [place] Basophils/100 WBC (Bld) 1.3 % Normal . [facility] Comment on above: Performed By: #### L ACTIC, CMP, CBC #### [facility] [address] [place] [address] [place] Eosinophils (Bld) [#/Vol] 0.2 10*3/uL Normal 0.0-0.45 [facility] Comment on above: Performed By: #### L ACTIC, CMP, CBC #### [facility] [address] [place] [id number] [place] Eosinophils/100 WBC (Bld) 3.0 % Normal . [facility] Comment on above: Performed By: #### L ACTIC, CMP, CBC #### [facility] [address] [place] [address] [place] Erythrocyte distribution width (RBC) [Ratio] 16.7 % High 11.9-15.3 [facility] Comment on above: Performed By: #### L ACTIC, CMP, CBC #### [facility] [address] [place] [id number] [place] Hematocrit (Bld) [Volume fraction] 33.0 % Low 34.0-46.4 [facility] Comment on above: Performed By: #### L ACTIC, CMP, CBC #### [address] Hemoglobin (Bld) [Mass/Vol] 10.7 g/dL Low 11.8-15.4 [facility] Comment on above: Performed By: #### L ACTIC, CMP, CBC #### [address] Large Platelets Slight Normal [facility] Comment on above: Result Comment: PERF ORMED BY: [place] [address] PATHOLOGIST DEL[employer] PRESSER IAN ACE M.D. Performed By: #### L ACTIC, CMP, CBC #### [address] Lymphocytes (Bld) [#/Vol] 0.8 10*3/uL Low 1.00-4.8 [facility] Comment on above: Performed By: #### L ACTIC, CMP, CBC #### [address] Lymphocytes/100 WBC (Bld) 10.6 % Normal . [facility] Comment on above: Performed By: #### L ACTIC, CMP, CBC #### [address] MCH (RBC) [Entitic mass] 26.0 pg Normal 24.7-34.3 [facility] Comment on above: Performed By: #### L ACTIC, CMP, CBC #### [address] MCV (RBC) [Entitic vol] 80.2 fL Normal 80-100 [facility] Comment on above: Performed By: #### L ACTIC, CMP, CBC #### [address] Mean Corpuscular HGB Conc 32.4 g/dL Normal 32.0-35.0 [facility] Comment on above: Performed By: #### L ACTIC, CMP, CBC #### [facility] [address] Microcytosis Slight Normal [facility] Comment on above: Performed By: #### L ACTIC, CMP, CBC #### [facility] [address] Monocytes (Bld) [#/Vol] 0.8 10*3/uL Normal 0.0-0.8 [facility] Comment on above: Performed By: #### L ACTIC, CMP, CBC #### [facility] [address] Monocytes/100 WBC (Bld) 11.9 % Normal . [facility] Comment on above: Performed By: #### L ACTIC, CMP, CBC #### [address] Neutrophils (Bld) [#/Vol] 5.2 10*3/uL Normal 1.8-7.7 [facility] Comment on above: Performed By: #### L ACTIC, CMP, CBC #### [address] Neutrophils/100 WBC (Bld) 73.2 % Normal . [facility] Comment on above: Performed By: #### L ACTIC, CMP, CBC #### [address] NRBC% 0.2 /100{WBC} Normal 0-0.5 [facility] Comment on above: Performed By: #### L ACTIC, CMP, CBC #### [place] [address] [place] Ovalocytes Slight Normal [facility] Comment on above: Performed By: #### L ACTIC, CMP, CBC #### [address] Platelet Estimate Normal Normal Normal [facility] Comment on above: Performed By: #### L ACTIC, CMP, CBC #### [address] Platelet mean volume (Bld) [Entitic vol] 6.9 fL Normal 6.3-10.7 [facility] Comment on above: Performed By: #### L ACTIC, CMP, CBC #### [facility] [address] Platelets (Bld) [#/Vol] 390 10*3/uL Normal 150-450 [facility] Comment on above: Performed By: #### L ACTIC, CMP, CBC #### [facility] [address] Poikilocytosis Slight Normal [facility] Comment on above: Performed By: #### L ACTIC, CMP, CBC #### [address] Polychromasia Slight Normal [facility] Comment on above: Performed By: #### L ACTIC, CMP, CBC #### [address] RBC (Bld) [#/Vol] 4.11 10*6/uL Normal 3.60-5.00 [facility] Comment on above: Performed By: #### L ACTIC, CMP, CBC #### [address] WBC (Bld) [#/Vol] 7.1 10*3/uL Normal 3.8-11.[address] [facility] Comment on above: Performed By: #### L ACTIC, CMP, CBC #### [address] Serum or plasma trough vanco mycin levelOrdered By: Neeraj Farrell on 04-13-2023 Vancomycin trough [Mass/Vol] 16.7 ug/mL 10.0-20.0 [facility] Comment on above: Last dose: - Vancomycin [Mass/volume] in Serum or Plasma --peakOrdered By: Neeraj Farrell on 04-13-2023 Vancomycin peak [Mass/Vol] 32.0 ug/mL 20.0-40.0 [facility] Comment on above: Last dose: - Vancomycin,Peakon 04-13-2023 Vancomycin,Peak 32.0 ug/mL Normal 20.0-40.0 [facility] Comment on above: Order Comment: Comme nt ?DRAW 1 HOUR AFTER INFUSION COMPLETES Date of last dose?: 20230412 Time of last dose?: 2329 Result Comment: Last dose: - PERFORMED BY: [place] [address] PATHOLOGIST DEL[employer] PRESSER IAN ACE M.D. Performed By: #### C UBLD, CMP, CBC #### [facility] [address] Basic Metabolic Panelon 11-0 Anion gap [Moles/Vol] 12.9 mmol/L Normal 6.0-15.0 [facility] Comment on above: Performed By: #### C UBLD, CMP, CBC #### [facility] [address] Calcium [Mass/Vol] 8.9 mg/dL Normal 8.6-10.[address] [facility] Comment on above: Performed By: #### C UBLD, CMP, CBC #### [facility] [address] [place] [address] [place] Chloride [Moles/Vol] 100 mmol/L Normal 98-107 [facility] Comment on above: Performed By: #### C UBLD, CMP, CBC #### [facility] [address] CO2 [Moles/Vol] 19.0 mmol/L Low 21.0-31.0 [facility] Comment on above: Performed By: #### C UBLD, CMP, CBC #### [facility] [address] [place] [address] [place] Creatinine [Mass/Vol] 1.13 mg/dL Normal 0.60-1.20 [facility] Comment on above: Performed By: #### C UBLD, CMP, CBC #### [facility] [address] [place] [address] [place] Creatinine Clr Calc Pharmacy 65.44 Normal [facility] Comment on above: Result Comment: PERF ORMED BY: [facility] [address] [place] [address] PATHOLOGIST DELIC[employer] PRESSER IAN ACE M.D. Performed By: #### C ALEXX RAND, CBC #### [facility] [address] GFR/1.73 sq M.predicted MDRD (S/P/Bld) [Vol rate/Area] 53.657 mL/min/{1.73_m2} Normal [facility] Comment on above: Performed By: #### C GIORGI CMP, CBC #### [address] Glucose [Mass/Vol] 119 mg/dL High 70-[address] [facility] Comment on above: Result Comment: [facility] Glucose Reference Range is dependent on time and content of last meal. Glucose of more than 200 mg/dL in a nonstressed, ambulatory subject supports the diagnosis of Diabetes Mellitus. ADA recommended reference range Performed By: #### C ALEXX RAND, CBC #### [address] Potassium [Moles/Vol] 3.9 mmol/L Normal 3.5-5.1 [facility] Comment on above: Performed By: #### C ALEXX RAND, CBC #### [address] Sodium [Moles/Vol] 128 mmol/L Low 136-[address] [facility] Comment on above: Performed By: #### C GIORGI CMP, CBC #### [address] Urea nitrogen [Mass/Vol] 43 mg/dL High 7-25 [facility] Comment on above: Performed By: #### C ALEXX RAND, CBC #### [address] Complete Blood Count Auto Di ffon 04-12-2023 Basophils (Bld) [#/Vol] 0.0 10*3/uL Normal 0.0-0.2 [facility] Comment on above: Result Comment: PERF ORMED BY: [place] [address] PATHOLOGIST DEL[employer] PRESSER IAN ACE M.D. Performed By: #### C UBLD, CMP, CBC #### [address] Basophils/100 WBC (Bld) 0.5 % Normal . [facility] Comment on above: Performed By: #### C UBLD, CMP, CBC #### [address] Eosinophils (Bld) [#/Vol] 0.1 10*3/uL Normal 0.0-0.45 [facility] Comment on above: Performed By: #### C UBLD, CMP, CBC #### [address] Eosinophils/100 WBC (Bld) 1.6 % Normal . [facility] Comment on above: Performed By: #### C UBLD, CMP, CBC #### [address] Erythrocyte distribution width (RBC) [Ratio] 16.9 % High 11.9-15.3 [facility] Comment on above: Performed By: #### C UBLD, CMP, CBC #### [address] Hematocrit (Bld) [Volume fraction] 31.7 % Low 34.0-46.4 [facility] Comment on above: Performed By: #### C UBLD, CMP, CBC #### [address] Hemoglobin (Bld) [Mass/Vol] 10.3 g/dL Low 11.8-15.4 [facility] Comment on above: Performed By: #### C UBLD, CMP, CBC #### [address] Lymphocytes (Bld) [#/Vol] 0.6 10*3/uL Low 1.00-4.8 [facility] Comment on above: Performed By: #### C UBLD, CMP, CBC #### [facility] [address] Lymphocytes/100 WBC (Bld) 8.2 % Normal . [facility] Comment on above: Performed By: #### C UBLD, CMP, CBC #### [facility] [address] MCH (RBC) [Entitic mass] 26.2 pg Normal 24.7-34.3 [facility] Comment on above: Performed By: #### C UBLD, CMP, CBC #### [facility] [address] MCV (RBC) [Entitic vol] 80.7 fL Normal 80-100 [facility] Comment on above: Performed By: #### C UBLD, CMP, CBC #### [address] Mean Corpuscular HGB Conc 32.5 g/dL Normal 32.0-35.0 [facility] Comment on above: Performed By: #### C UBLD, CMP, CBC #### [address] Monocytes (Bld) [#/Vol] 1.0 10*3/uL High 0.0-0.8 [facility] Comment on above: Performed By: #### C UBLD, CMP, CBC #### [address] Monocytes/100 WBC (Bld) 13.4 % Normal . [facility] Comment on above: Performed By: #### C UBLD, CMP, CBC #### [place] [address] [place] Neutrophils (Bld) [#/Vol] 5.6 10*3/uL Normal 1.8-7.7 [facility] Comment on above: Performed By: #### C UBLD, CMP, CBC #### [address] Neutrophils/100 WBC (Bld) 76.3 % Normal . [facility] Comment on above: Performed By: #### C UBLD, CMP, CBC #### [address] NRBC% 0.3 /100{WBC} Normal 0-0.5 [facility] Comment on above: Performed By: #### C UBLD, CMP, CBC #### [address] Platelet mean volume (Bld) [Entitic vol] 7.2 fL Normal 6.3-10.7 [facility] Comment on above: Performed By: #### C UBLD, CMP, CBC #### [address] Platelets (Bld) [#/Vol] 363 10*3/uL Normal 150-450 [facility] Comment on above: Performed By: #### C UBLD, CMP, CBC #### [address] RBC (Bld) [#/Vol] 3.93 10*6/uL Normal 3.60-5.00 [facility] Comment on above: Performed By: #### C UBLD, CMP, CBC #### [address] WBC (Bld) [#/Vol] 7.3 10*3/uL Normal 3.8-11.[address] [facility] Comment on above: Performed By: #### C UBLD, CMP, CBC #### [address] Arterial Blood Gason 023 ABG Base Excess -15.4 mmol/L Low -3.0-3.0 [facility] Comment on above: Performed By: #### C UBLD, CMP, CBC #### [address] ABG Frac Inspired O2 44 % Normal [facility] Comment on above: Performed By: #### C UBLD, CMP, CBC #### [address] ABG Liter Flow 6 Normal [facility] Comment on above: Performed By: #### C UBLD, CMP, CBC #### [facility] [address] ABG Oxygen Content 7.8 mmol/L Normal 6.6-9.[address] [facility] Comment on above: Performed By: #### C UBLD, CMP, CBC #### [facility] [address] ABG Oxygen Saturation 97.6 % Normal 95.0-100.0 [facility] Comment on above: Performed By: #### C UBLD, CMP, CBC #### [facility] [address] ABG PCO2 52.5 mm[Hg] Off scale high 35.0-45.0 [facility] Comment on above: Performed By: #### C UBLD, CMP, CBC #### [facility] [address] ABG PH 7.07 Off scale low 7.35-7.45 [facility] Comment on above: Performed By: #### C UBLD, CMP, CBC #### [facility] [address] ABG PO2 105.6 mm[Hg] High 80.0-100.0 [facility] Comment on above: Performed By: #### C UBLD, CMP, CBC #### [facility] [address] [place] [address] [place] CO2 [Moles/Vol] 16.3 mmol/L Low 23.0-27.0 [facility] Comment on above: Performed By: #### C UBLD, CMP, CBC #### [facility] [address] [place] [address] [place] HCO3 (Bld) [Moles/Vol] 14.7 mmol/L Low 23.0-29.0 [facility] Comment on above: Performed By: #### C UBLD, CMP, CBC #### [facility] [address] Respiratory Critical Normal [facility] Comment on above: Result Comment: Crit ical Value called on: 04/11/2023 at 08:56 PERFORMED BY: [place] [address] PATHOLOGIST [employer] PRESSER IAN ACE M.D. Performed By: #### C UBLD, CMP, CBC #### [facility] [address] [place] [address] VBG Draw Site Right Radial Normal [facility] Comment on above: Performed By: #### C UBLD, CMP, CBC #### [facility] [address] [place] [address] B-Type Natriuretic Peptideon 04-11-2023 Natriuretic peptide B (Bld) [Mass/Vol] 181.0 pg/mL High 5-100 [facility] Comment on above: Result Comment: PERF ORMED BY: [place] [address] PATHOLOGIST [employer] PR[employer]ER IAN ACE M.D. Performed By: #### C UBLD, CMP, CBC #### [facility] [address] [place] [address] Bacterial blood cultureOrder ed By: Laith Monte on 04-11-2023 Bacteria identified Cx Nom (Bld) NO GROWTH 5 DAYS [facility] Blood Cultureon 04-11-2023 Bacteria identified Cx Nom (Bld) NO GROWTH 5 DAYS PERFORMED BY: [place] [address] PATHOLOGIST [employer] PRESSER IAN ACE M.D. [facility] Comment on above: Performed By: #### C UBLD, CMP, CBC #### [facility] [address] [place], [place] [id number] [facility] Bacteria identified Cx Nom (Bld) NO GROWTH 5 DAYS PERFORMED BY: [place] [address] PATHOLOGIST DELIC[employer] PRESSER IAN ACE M.D. [facility] Comment on above: Performed By: #### C UBLD, CMP, CBC #### [facility] [address] [place] [address] Complete Blood Count Auto Di ffon 04-11-2023 Basophils (Bld) [#/Vol] 0.1 10*3/uL Normal 0.0-0.2 [facility] Comment on above: Result Comment: PERF ORMED BY: [place] [address] PATHOLOGIST [employer] PR[employer]ER IAN ACE M.D. Performed By: #### C UBLD, CMP, CBC #### [address] Basophils/100 WBC (Bld) 0.6 % Normal . [facility] Comment on above: Performed By: #### C UBLD, CMP, CBC #### [address] Eosinophils (Bld) [#/Vol] 0.0 10*3/uL Normal 0.0-0.45 [facility] Comment on above: Performed By: #### C UBLD, CMP, CBC #### [address] Eosinophils/100 WBC (Bld) 0.1 % Normal . [facility] Comment on above: Performed By: #### C UBLD, CMP, CBC #### [address] Erythrocyte distribution width (RBC) [Ratio] 17.2 % High 11.9-15.3 [facility] Comment on above: Performed By: #### C UBLD, CMP, CBC #### [address] Hematocrit (Bld) [Volume fraction] 37.9 % Normal 34.0-46.4 [facility] Comment on above: Performed By: #### C UBLD, CMP, CBC #### [address] Hemoglobin (Bld) [Mass/Vol] 11.8 g/dL Normal 11.8-15.4 [facility] Comment on above: Performed By: #### C UBLD, CMP, CBC #### [address] [place] [address] [place] Lymphocytes (Bld) [#/Vol] 0.3 10*3/uL Low 1.00-4.8 [facility] Comment on above: Performed By: #### C UBLD, CMP, CBC #### [address] Lymphocytes/100 WBC (Bld) 1.8 % Normal . [facility] Comment on above: Performed By: #### C UBLD, CMP, CBC #### [address] MCH (RBC) [Entitic mass] 25.9 pg Normal 24.7-34.3 [facility] Comment on above: Performed By: #### C UBLD, CMP, CBC #### [address] MCV (RBC) [Entitic vol] 82.9 fL Normal 80-100 [facility] Comment on above: Performed By: #### C UBLD, CMP, CBC #### [address] Mean Corpuscular HGB Conc 31.2 g/dL Low 32.0-35.0 [facility] Comment on above: Performed By: #### C UBLD, CMP, CBC #### [address] Monocytes (Bld) [#/Vol] 1.0 10*3/uL High 0.0-0.8 [facility] Comment on above: Performed By: #### C UBLD, CMP, CBC #### [place] [address] [place] Monocytes/100 WBC (Bld) 6.9 % Normal . [facility] Comment on above: Performed By: #### C UBLD, CMP, CBC #### [address] Neutrophils (Bld) [#/Vol] 13.7 10*3/uL High 1.8-7.7 [facility] Comment on above: Performed By: #### C UBLD, CMP, CBC #### [address] Neutrophils/100 WBC (Bld) 90.6 % Normal . [facility] Comment on above: Performed By: #### C UBLD, CMP, CBC #### [facility] [address] NRBC% 0.2 /100{WBC} Normal 0-0.5 [facility] Comment on above: Performed By: #### C UBLD, CMP, CBC #### [address] Platelet mean volume (Bld) [Entitic vol] 6.9 fL Normal 6.3-10.7 [facility] Comment on above: Performed By: #### C UBLD, CMP, CBC #### [address] Platelets (Bld) [#/Vol] 443 10*3/uL Normal 150-450 [facility] Comment on above: Performed By: #### C UBLD, CMP, CBC #### [place] [address] [place] RBC (Bld) [#/Vol] 4.56 10*6/uL Normal 3.60-5.00 [facility] Comment on above: Performed By: #### C UBLD, CMP, CBC #### [place] [address] [place] WBC (Bld) [#/Vol] 15.1 10*3/uL High 3.8-11.6 [facility] Comment on above: Performed By: #### C UBLD, CMP, CBC #### [place] [address] [place] Basophils (Bld) [#/Vol] 0.0 10*3/uL Normal 0.0-0.2 [facility] Comment on above: Result Comment: PERF ORMED BY: [place] [address] PATHOLOGIST [employer] PR[employer]ER IAN ACE M.D. Performed By: #### C UBLD, CMP, CBC #### [place] [address] [place] Basophils/100 WBC (Bld) 0.2 % Normal . [facility] Comment on above: Performed By: #### C UBLD, CMP, CBC #### [place] [address] [place] Eosinophils (Bld) [#/Vol] 0.1 10*3/uL Normal 0.0-0.45 [facility] Comment on above: Performed By: #### C UBLD, CMP, CBC #### [address] Eosinophils/100 WBC (Bld) 0.7 % Normal . [facility] Comment on above: Performed By: #### C UBLD, CMP, CBC #### [address] Erythrocyte distribution width (RBC) [Ratio] 17.0 % High 11.9-15.3 [facility] Comment on above: Performed By: #### C UBLD, CMP, CBC #### [address] Hematocrit (Bld) [Volume fraction] 39.3 % Normal 34.0-46.4 [facility] Comment on above: Performed By: #### C UBLD, CMP, CBC #### [place] [address] [place] Hemoglobin (Bld) [Mass/Vol] 12.2 g/dL Normal 11.8-15.4 [facility] Comment on above: Performed By: #### C UBLD, CMP, CBC #### [place] [address] [place] Lymphocytes (Bld) [#/Vol] 1.0 10*3/uL Normal 1.00-4.8 [facility] Comment on above: Performed By: #### C UBLD, CMP, CBC #### [place] [address] [place] Lymphocytes/100 WBC (Bld) 6.0 % Normal . [facility] Comment on above: Performed By: #### C UBLD, CMP, CBC #### [address] MCH (RBC) [Entitic mass] 25.7 pg Normal 24.7-34.3 [facility] Comment on above: Performed By: #### C UBLD, CMP, CBC #### [address] MCV (RBC) [Entitic vol] 83.1 fL Normal 80-100 [facility] Comment on above: Performed By: #### C UBLD, CMP, CBC #### [address] Mean Corpuscular HGB Conc 30.9 g/dL Low 32.0-35.0 [facility] Comment on above: Performed By: #### C UBLD, CMP, CBC #### [address] Monocytes (Bld) [#/Vol] 1.4 10*3/uL High 0.0-0.8 [facility] Comment on above: Performed By: #### C UBLD, CMP, CBC #### [address] Monocytes/100 WBC (Bld) 7.8 % Normal . [facility] Comment on above: Performed By: #### C UBLD, CMP, CBC #### [address] Neutrophils (Bld) [#/Vol] 14.8 10*3/uL High 1.8-7.7 [facility] Comment on above: Performed By: #### C UBLD, CMP, CBC #### [address] Neutrophils/100 WBC (Bld) 85.3 % Normal . [facility] Comment on above: Performed By: #### C UBLD, CMP, CBC #### [address] NRBC% 0.1 /100{WBC} Normal 0-0.5 [facility] Comment on above: Performed By: #### C UBLD, CMP, CBC #### [address] Platelet mean volume (Bld) [Entitic vol] 7.2 fL Normal 6.3-10.7 [facility] Comment on above: Performed By: #### C UBLD, CMP, CBC #### [address] Platelets (Bld) [#/Vol] 488 10*3/uL High 150-450 [facility] Comment on above: Performed By: #### C UBLD, CMP, CBC #### [address] RBC (Bld) [#/Vol] 4.73 10*6/uL Normal 3.60-5.00 [facility] Comment on above: Performed By: #### C UBLD, CMP, CBC #### [address] WBC (Bld) [#/Vol] 17.4 10*3/uL High 3.8-11.6 [facility] Comment on above: Performed By: #### C UBLD, CMP, CBC #### [address] Comprehensive Metabolic Pane jeremy 04-11-2023 Albumin [Mass/Vol] 3.5 g/dL Normal 3.5-5.[address] [facility] Comment on above: Performed By: #### C UBLD, CMP, CBC #### [address] Albumin/Globulin [Mass ratio] 0.9 {ratio} Normal [facility] Comment on above: Performed By: #### C UBLD, CMP, CBC #### [address] ALP [Catalytic activity/Vol] 96 U/L Normal 34-104 [facility] Comment on above: Performed By: #### C UBLD, CMP, CBC #### [facility] [address] [place] [id number] [place] ALT [Catalytic activity/Vol] 117 U/L High 7-52 [facility] Comment on above: Performed By: #### C UBLD, CMP, CBC #### [facility] [address] [place] [id number] [facility] Anion gap [Moles/Vol] 12.4 mmol/L Normal 6.0-15.0 [facility] Comment on above: Performed By: #### C UBLD, CMP, CBC #### [facility] [address] AST [Catalytic activity/Vol] 96 U/L High 13-39 [facility] Comment on above: Performed By: #### C UBLD, CMP, CBC #### [facility] [address] Bilirubin [Mass/Vol] 0.3 mg/dL Normal 0.3-1.0 [facility] Comment on above: Performed By: #### C UBLD, CMP, CBC #### [facility] [address] [place] [address] [place] Calcium [Mass/Vol] 9.6 mg/dL Normal 8.6-10.[address] [facility] Comment on above: Performed By: #### C UBLD, CMP, CBC #### [facility] [address] [place] [id number] [place] Chloride [Moles/Vol] 102 mmol/L Normal 98-107 [facility] Comment on above: Performed By: #### C UBLD, CMP, CBC #### [facility] [address] [place] [id number] [place] CO2 [Moles/Vol] 16.8 mmol/L Low 21.0-31.0 [facility] Comment on above: Performed By: #### C UBLD, CMP, CBC #### [facility] [address] [place] [id number] [place] Creatinine [Mass/Vol] 1.43 mg/dL High 0.60-1.20 [facility] Comment on above: Performed By: #### C UBLD, CMP, CBC #### [facility] [address] [place] [address] [place] Creatinine Clr Calc Pharmacy 51.71 [facility] Comment on above: Result Comment: PERF ORMED BY: [place] [address] PATHOLOGIST DEL[employer] PRESSER IAN ACE M.D. Performed By: #### C UBLD, CMP, CBC #### [facility] [address] [place] [address] [place] GFR/1.73 sq M.predicted MDRD (S/P/Bld) [Vol rate/Area] 40.450 mL/min/{1.73_m2} [facility] Comment on above: Performed By: #### C UBLD, CMP, CBC #### [place] [address] [place] Globulin (S) [Mass/Vol] 3.8 g/dL [facility] Comment on above: Performed By: #### C UBLD, CMP, CBC #### [address] Glucose [Mass/Vol] 143 mg/dL High 70-[address] [facility] Comment on above: Result Comment: [place] Glucose Reference Range is dependent on time and content of last meal. Glucose of more than 200 mg/dL in a nonstressed, ambulatory subject supports the diagnosis of Diabetes Mellitus. ADA recommended reference range Performed By: #### C UBLD, CMP, CBC #### [address] Potassium [Moles/Vol] 4.2 mmol/L Normal 3.5-5.1 [facility] Comment on above: Performed By: #### C UBLD, CMP, CBC #### [facility] [address] Protein [Mass/Vol] 7.3 g/dL Normal 6.4-8.[address] [facility] Comment on above: Performed By: #### C UBLD, CMP, CBC #### [facility] [address] Sodium [Moles/Vol] 127 mmol/L Low 136-[address] [facility] Comment on above: Performed By: #### C UBLD, CMP, CBC #### [facility] [address] Urea nitrogen [Mass/Vol] 47 mg/dL High 7-25 [facility] Comment on above: Performed By: #### C UBLD, CMP, CBC #### [facility] [address] Albumin [Mass/Vol] 3.6 g/dL Normal 3.5-5.[address] [facility] Comment on above: Performed By: #### C UBLD, CMP, CBC #### [facility] [address] Albumin/Globulin [Mass ratio] 0.9 {ratio} Normal [facility] Comment on above: Performed By: #### C UBLD, CMP, CBC #### [address] ALP [Catalytic activity/Vol] 95 U/L Normal 34-104 [facility] Comment on above: Performed By: #### C UBLD, CMP, CBC #### [address] ALT [Catalytic activity/Vol] 108 U/L High 7-52 [facility] Comment on above: Performed By: #### C UBLD, CMP, CBC #### [facility] [address] Anion gap [Moles/Vol] 13.8 mmol/L Normal 6.0-15.0 [facility] Comment on above: Performed By: #### C UBLD, CMP, CBC #### [facility] [address] AST [Catalytic activity/Vol] 87 U/L High 13-39 [facility] Comment on above: Performed By: #### C UBLD, CMP, CBC #### [facility] [address] Bilirubin [Mass/Vol] 0.3 mg/dL Normal 0.3-1.0 [facility] Comment on above: Performed By: #### C UBLD, CMP, CBC #### [address] Calcium [Mass/Vol] 9.5 mg/dL Normal 8.6-10.[address] [facility] Comment on above: Performed By: #### C UBLD, CMP, CBC #### [facility] [address] Chloride [Moles/Vol] 102 mmol/L Normal 98-107 [facility] Comment on above: Performed By: #### C UBLD, CMP, CBC #### [address] CO2 [Moles/Vol] 15.4 mmol/L Low 21.0-31.0 [facility] Comment on above: Performed By: #### C UBLD, CMP, CBC #### [address] Creatinine [Mass/Vol] 1.23 mg/dL High 0.60-1.20 [facility] Comment on above: Performed By: #### C UBLD, CMP, CBC #### [address] Creatinine Clr Calc Pharmacy 60.12 [facility] Comment on above: Result Comment: PERF ORMED BY: [place] [address] PATHOLOGIST [employer] PRESSER IAN ACE M.D. Performed By: #### C UBLD, CMP, CBC #### [place] [address] [place] GFR/1.73 sq M.predicted MDRD (S/P/Bld) [Vol rate/Area] 48.466 mL/min/{1.73_m2} Normal [facility] Comment on above: Performed By: #### C UBLD, CMP, CBC #### [address] [address] [place] Globulin (S) [Mass/Vol] 3.8 g/dL Normal [facility] Comment on above: Performed By: #### C UBLD, CMP, CBC #### [address] Glucose [Mass/Vol] 143 mg/dL High 70-[address] [facility] Comment on above: Result Comment: [facility] Glucose Reference Range is dependent on time and content of last meal. Glucose of more than 200 mg/dL in a nonstressed, ambulatory subject supports the diagnosis of Diabetes Mellitus. ADA recommended reference range Performed By: #### C UBLD, CMP, CBC #### [address] Potassium [Moles/Vol] 4.2 mmol/L Normal 3.5-5.1 [facility] Comment on above: Performed By: #### C UBLD, CMP, CBC #### [address] Protein [Mass/Vol] 7.4 g/dL Normal 6.4-8.[address] [facility] Comment on above: Performed By: #### C UBLD, CMP, CBC #### [address] Sodium [Moles/Vol] 127 mmol/L Low 136-[address] [facility] Comment on above: Performed By: #### C UBLD, CMP, CBC #### [address] Urea nitrogen [Mass/Vol] 46 mg/dL High 7-25 [facility] Comment on above: Performed By: #### C UBLD, CMP, CBC #### [place] [address] [place] Creatine Kinaseon 04-11-2023 CK [Catalytic activity/Vol] 122 U/L Normal 30-223 [facility] Comment on above: Performed By: #### L ACTIC, CMP, CBC #### [place] [address] [place] Creatine kinase [Enzymatic a ctivity/volume] in Serum or PlasmaOrdered By: Laith Monte on 04-11-2023 CK [Catalytic activity/Vol] 122 U/L 30-223 [facility] ECG 12 lead ECGon 04-11-2023 ECG 12 lead ECG [facility] [place] [address] [place], [place] [id number] Electrocardiograph Report Signed Patient: [place] Cesar MR#: [id number] : 1955 Acct:[id number] Age/Sex: 67 / F ADM Date: 04/10/23 Loc: Room: [address] [place] [address] Type: ADM IN Attending Dr: Malorie Nathan [...] previous ECGs available Confirmed by LONNIE MORENO [id number] on 04/12/2023 9:24:12 AM Referred By: Electronically Signed By:LUISA HANKINS MD [facility] Transcribed By: MUS Signed By Luisa Hankins MD, [facility] 04/12/23 0924 [facility] Glucose Glucometer (BldC) [M ass/Vol]Ordered By: Malorie Nathan on 04-11-2023 Glucose [Mass/Vol] 149 mg/dL [facility] Comment on above: Random Glucose Refer ence Range is dependent on time and content of last meal. Glucose of more than 200 mg/dL in a nonstressed, ambulatory subject supports the diagnosis of Diabetes Mellitus. Glucose Poct Glucometerson 1 06-11-2022 Glucose [Mass/Vol] 149 mg/dL [facility] Comment on above: Result Comment: [place] Glucose Reference Range is dependent on time and content of last meal. Glucose of more than 200 mg/dL in a nonstressed, ambulatory subject supports the diagnosis of Diabetes Mellitus. PERFORMED BY: [place] [address] PATHOLOGIST DEL[employer] PR[employer]ER IAN ACE M.D. Performed By: #### G LULS #### Point of Care testing , Laboratory - Chemistry and C hemistry - challengeOrdered By: Malorie Nathan on 04-11-2023 CO2 [Moles/Vol] 16.3 mmol/L 23.0-27.0 [facility] HCO3 (Bld) [Moles/Vol] 14.7 mmol/L 23.0-29.0 [facility] Lactate [Moles/volume] in Se rum or PlasmaOrdered By: Laith Monte on 04-11-2023 Lactate [Moles/Vol] 1.3 mmol/L 0.5-2.2 [facility] Lactic Acidon 04-11-2023 Lactate [Moles/Vol] 1.3 mmol/L Normal 0.5-2.2 [facility] Comment on above: Result Comment: PERF ORMED BY: [place] [address] PATHOLOGIST DEL[employer] PRESSER IAN ACE M.D. Performed By: #### C UBLD, CMP, CBC #### [address] Natriuretic peptide B [Mass/ Vol]Ordered By: Laith Monte on 04-11-2023 Natriuretic peptide B (Bld) [Mass/Vol] 181.0 pg/mL 5-100 [facility] No Panel InformationOrdered By: Malorie Nathan on 04-11-2023 Arterial Blood Base Excess -15.4 mmol/L -3.0-3.0 [facility] Arterial Blood Oxygen Content 7.8 mmol/L 6.6-9.7 [facility] Arterial Blood Oxygen Saturation 97.6 % 95.0-100.0 [facility] Arterial Blood Partial Pressure CO2 52.5 mm[Hg] 35.0-45.0 [facility] Arterial Blood Partial Pressure O2 105.6 mm[Hg] 80.0-100.0 [facility] Arterial Blood pH 7.07 7.35-7.45 [facility] Blood Gas Critical Value See comment [facility] Comment on above: Critical Value julio haynes on: 04/11/2023 at 08:56 Blood Gas Liter Flow 6 L/min [facility] Blood Gas Sample Site Right radial F [facility] FiO2 44 % [facility] Troponin I High Sensitivityo n 04-11-2023 Troponin I High Sensitivity 33.9 pg/mL High 0.0-15.0 [facility] Comment on above: Result Comment: PERF ORMED BY: [place] [address] PATHOLOGIST [employer] PRESSER IAN ACE M.D. Performed By: #### L ACTIC, CMP, CBC #### [address] Troponin I.cardiac [Mass/vol ume] in Serum or Plasma by Detection limit <= 0.01 ng/Ordered By: Laith Monte on 04-11-2023 Troponin I.cardiac DL <= 0.01 ng/mL [Mass/Vol] 33.9 pg/mL 0.0-15.0 [facility] XR chest 1V portableon 04-11 XR chest 1V portable [facility] [place] [address] [place] [address] XRay Report Signed Patient: [place] Cesar MR#: [id number] : 1955 Acct:[id number] Age/Sex: 67 / F ADM Date: 04/10/23 Loc: Room: [address] [place] [address] Type: ADM IN Attending Dr: Malorie Nathan [...] Crispin Sullivan M.D.04/11/2023 9:10 AM Dictation Location: [place] [address] Transcribed By: [facility] 04/11/23909 Dictated By: Crispin Sullivan II, MD 04/11/23907 Signed By: 04/11/23909 Normal [facility] Alanine aminotransferase [En zymatic activity/volume] in Serum or PlasmaOrdered By: Sarah Davey on 04-10-2023 ALT [Catalytic activity/Vol] 91 U/L 7-52 [facility] Albumin [Mass/volume] in Ser um or Plasma by Bromocresol green (BCG) dye binding methoOrdered By: Sarah Davey on 04-10-2023 Albumin BCG dye [Mass/Vol] 3.7 g/dL 3.5-5.7 [facility] Alkaline phosphatase [Enzyma tic activity/volume] in Serum or PlasmaOrdered By: Sarah Davey on 04-10-2023 ALP [Catalytic activity/Vol] 92 U/L 34-104 [facility] Aspartate aminotransferase [ Enzymatic activity/volume] in Serum or PlasmaOrdered By: Sarah Davey on 04-10-2023 AST [Catalytic activity/Vol] 74 U/L 13-39 [facility] Automated erythrocytes count in urine sediment (number/area)Ordered By: Sarah Davey on 04-10-2023 RBC Auto (Urine sed) [#/Area] 1-2 [HPF] 0-4 [facility] Automated leukocytes count i n urine sediment (number/area)Ordered By: Sarah Davey on 04-10-2023 WBC Auto (Urine sed) [#/Area] 10-19 [HPF] 0-4 [facility] Basic Metabolic Panelon Anion gap [Moles/Vol] 14.6 mmol/L Normal 6.0-15.0 [facility] Comment on above: Performed By: #### C UBPREMA CMP, CBC #### [address] Calcium [Mass/Vol] 9.5 mg/dL Normal 8.6-10.[address] [facility] Comment on above: Performed By: #### C UBLD, CMP, CBC #### [address] Chloride [Moles/Vol] 102 mmol/L Normal 98-107 [facility] Comment on above: Performed By: #### C UBLD CMP, CBC #### [address] CO2 [Moles/Vol] 14.3 mmol/L Low 21.0-31.0 [facility] Comment on above: Performed By: #### C UBPREMA, CMP, CBC #### [address] Creatinine [Mass/Vol] 1.16 mg/dL Normal 0.60-1.20 [facility] Comment on above: Performed By: #### C UBPREMA CMP, CBC #### [address] Creatinine Clr Calc Pharmacy 63.71 [facility] Comment on above: Result Comment: PERF ORMED BY: [place] [address] PATHOLOGIST [employer] PRESSER IAN ACE M.D. Performed By: #### C UBLD, CMP, CBC #### [place] [address] [place] GFR/1.73 sq M.predicted MDRD (S/P/Bld) [Vol rate/Area] 51.997 mL/min/{1.73_m2} [facility] Comment on above: Performed By: #### C UBLD, CMP, CBC #### [place] [address] [place] Glucose [Mass/Vol] 142 mg/dL High 70-[address] [facility] Comment on above: Result Comment: [facility] Glucose Reference Range is dependent on time and content of last meal. Glucose of more than 200 mg/dL in a nonstressed, ambulatory subject supports the diagnosis of Diabetes Mellitus. ADA recommended reference range Performed By: #### C UBLD, CMP, CBC #### [facility] [address] Potassium [Moles/Vol] 3.9 mmol/L Normal 3.5-5.1 [facility] Comment on above: Performed By: #### C UBLD, CMP, CBC #### [facility] [address] Sodium [Moles/Vol] 127 mmol/L Low 136-[address] [facility] Comment on above: Performed By: #### C UBLD, CMP, CBC #### [facility] [address] Urea nitrogen [Mass/Vol] 45 mg/dL High 7-25 [facility] Comment on above: Performed By: #### C UBLD, CMP, CBC #### [facility] [address] Basophils Auto (Bld) [#/Vol] Ordered By: Sarah Davey on 04-10-2023 Basophils (Bld) [#/Vol] 0.1 10*3/uL 0.0-0.2 [facility] Basophils/100 WBC Auto (Bld) Ordered By: Sarah Davey on 04-10-2023 Basophils/100 WBC (Bld) 0.5 % . [facility] Bilirubin Test strip Ql (U)O rdered By: Sarah Davey on 04-10-2023 Bilirubin Ql (U) Negative Negative [facility] Bilirubin.total [Mass/volume ] in Serum or PlasmaOrdered By: Sarah Davey on 04-10-2023 Bilirubin [Mass/Vol] 0.4 mg/dL 0.3-1.0 [facility] Blood Cultureon 04-10-2023 Bacteria identified Cx Nom (Bld) NO GROWTH 5 DAYS PERFORMED BY: [facility] [address] [place] [address] PATHOLOGIST [employer] PRESSER IAN ACE M.D. Normal [facility] Comment on above: Performed By: #### G LULS #### Point of Care testing , C reactive protein [Mass/vol ume] in Serum or PlasmaOrdered By: Sarah Bullimore on 04-10-2023 CRP [Mass/Vol] 16.1 mg/dL 0.0-0.5 [facility] C-Reactive Proteinon 023 C-Reactive Protein 16.1 mg/dL High 0.0-0.[address] [facility] Comment on above: Result Comment: PERF ORMED BY: [facility] [address] [place] [address] PATHOLOGIST [employer] PRESSER IAN ACE M.D. Performed By: #### G LULS #### Point of Care testing , Calcium [Mass/volume] in Ser um or PlasmaOrdered By: Sarah Bullimore on 04-10-2023 Calcium [Mass/Vol] 10.0 mg/dL 8.6-10.[address] [facility] Carbon dioxide, total [Moles /volume] in Serum or PlasmaOrdered By: Sarah Bullimore on 04-10-2023 CO2 [Moles/Vol] 15.4 mmol/L 21.0-31.0 [facility] Chloride [Moles/volume] in S marivel or PlasmaOrdered By: Sarah Bullimore on 04-10-2023 Chloride [Moles/Vol] 102 mmol/L 98-107 [facility] Color Auto (U)Ordered By: Tiffany Schwarzimore on 04-10-2023 Color (U) Yellow Yellow [facility] Complete Blood Count Auto Di ffon 04-10-2023 Basophils (Bld) [#/Vol] 0.1 10*3/uL Normal 0.0-0.2 [facility] Comment on above: Performed By: #### G LULS #### Point of Care testing , Basophils/100 WBC (Bld) 0.5 % Normal . [facility] Comment on above: Performed By: #### G KYAWLS #### Point of Care testing , Eosinophils (Bld) [#/Vol] 0.1 10*3/uL Normal 0.0-0.45 [facility] Comment on above: Performed By: #### G KYAWLS #### Point of Care testing , Eosinophils/100 WBC (Bld) 1.0 % Normal . [facility] Comment on above: Performed By: #### G KYAWLS #### Point of Care testing , Erythrocyte distribution width (RBC) [Ratio] 16.8 % High 11.9-15.3 [facility] Comment on above: Performed By: #### G KYAWLS #### Point of Care testing , Hematocrit (Bld) [Volume fraction] 39.4 % Normal 34.0-46.4 [facility] Comment on above: Performed By: #### G KYAWLS #### Point of Care testing , Hemoglobin (Bld) [Mass/Vol] 12.7 g/dL Normal 11.8-15.4 [facility] Comment on above: Performed By: #### G DAIANA #### Point of Care testing , Lymphocytes (Bld) [#/Vol] 0.4 10*3/uL Low 1.00-4.8 [facility] Comment on above: Performed By: #### G KYAWLS #### Point of Care testing , Lymphocytes/100 WBC (Bld) 3.2 % Normal . [facility] Comment on above: Performed By: #### G KYAWLS #### Point of Care testing , MCH (RBC) [Entitic mass] 26.3 pg Normal 24.7-34.3 [facility] Comment on above: Performed By: #### G DAIANA #### Point of Care testing , MCV (RBC) [Entitic vol] 81.8 fL Normal 80-100 [facility] Comment on above: Performed By: #### G KYAWLS #### Point of Care testing , Mean Corpuscular HGB Conc 32.1 g/dL Normal 32.0-35.0 [facility] Comment on above: Performed By: #### Jodi AHMADI #### Point of Care testing , Monocytes (Bld) [#/Vol] 0.6 10*3/uL Normal 0.0-0.8 [facility] Comment on above: Performed By: #### Jodi AHMADI #### Point of Care testing , Monocytes/100 WBC (Bld) 17.56 % Normal 0.00-20.00 [facility] Comment on above: Performed By: #### Jodi AHMADI #### Point of Care testing , Monocytes/100 WBC (Bld) 5.0 % Normal . [facility] Comment on above: Performed By: #### Jodi AHMADI #### Point of Care testing , Neutrophils (Bld) [#/Vol] 11.7 10*3/uL High 1.8-7.7 [facility] Comment on above: Performed By: #### Jodi AHMADI #### Point of Care testing , Neutrophils/100 WBC (Bld) 90.3 % Normal . [facility] Comment on above: Performed By: #### Jodi AHMADI #### Point of Care testing , NRBC% 0.1 /100{WBC} Normal 0-0.5 [facility] Comment on above: Performed By: ###Brandyn AHMADI #### Point of Care testing , Platelet mean volume (Bld) [Entitic vol] 7.5 fL Normal 6.3-10.7 [facility] Comment on above: Performed By: #### Jodi AHMADI #### Point of Care testing , Platelets (Bld) [#/Vol] 474 10*3/uL High 150-450 [facility] Comment on above: Performed By: #### Jodi AHMADI #### Point of Care testing , RBC (Bld) [#/Vol] 4.82 10*6/uL Normal 3.60-5.00 [facility] Comment on above: Performed By: #### Jodi AHMADI #### Point of Care testing , WBC (Bld) [#/Vol] 13.0 10*3/uL High 3.8-11.6 [facility] Comment on above: Performed By: #### Jodi AHMADI #### Point of Care testing , Comprehensive Metabolic Pane jeremy 04-10-2023 Albumin [Mass/Vol] 3.7 g/dL Normal 3.5-5.[address] [facility] Comment on above: Performed By: #### Jodi AHMADI #### Point of Care testing , Albumin/Globulin [Mass ratio] 0.8 {ratio} Normal [facility] Comment on above: Performed By: #### Jodi AHMADI #### Point of Care testing , ALP [Catalytic activity/Vol] 92 U/L Normal 34-104 [facility] Comment on above: Performed By: #### Jodi AHMADI #### Point of Care testing , ALT [Catalytic activity/Vol] 91 U/L High 7-52 [facility] Comment on above: Performed By: #### Jodi AHMADI #### Point of Care testing , Anion gap [Moles/Vol] 15.3 mmol/L High 6.0-15.0 [facility] Comment on above: Performed By: #### Jodi AHMADI #### Point of Care testing , AST [Catalytic activity/Vol] 74 U/L High 13-39 [facility] Comment on above: Performed By: #### Jodi AHMADI #### Point of Care testing , Bilirubin [Mass/Vol] 0.4 mg/dL Normal 0.3-1.0 [facility] Comment on above: Performed By: #### Jodi AHMADI #### Point of Care testing , Calcium [Mass/Vol] 10.0 mg/dL Normal 8.6-10.[address] [facility] Comment on above: Performed By: #### Jodi AHMADI #### Point of Care testing , Chloride [Moles/Vol] 102 mmol/L Normal 98-107 [facility] Comment on above: Performed By: #### Jodi AHMADI #### Point of Care testing , CO2 [Moles/Vol] 15.4 mmol/L Low 21.0-31.0 [facility] Comment on above: Performed By: #### Jodi AHMADI #### Point of Care testing , Creatinine [Mass/Vol] 1.21 mg/dL High 0.60-1.20 [facility] Comment on above: Performed By: #### G KYAWLS #### Point of Care testing , Creatinine Clr Calc Pharmacy 60.88 [facility] Comment on above: Performed By: #### G KYAWLS #### Point of Care testing , GFR/1.73 sq M.predicted MDRD (S/P/Bld) [Vol rate/Area] 49.429 mL/min/{1.73_m2} [facility] Comment on above: Performed By: #### G LULS #### Point of Care testing , Globulin (S) [Mass/Vol] 4.5 g/dL [facility] Comment on above: Performed By: #### G KYAWLS #### Point of Care testing , Glucose [Mass/Vol] 109 mg/dL High 70-[address] [facility] Comment on above: Result Comment: [facility] Glucose Reference Range is dependent on time and content of last meal. Glucose of more than 200 mg/dL in a nonstressed, ambulatory subject supports the diagnosis of Diabetes Mellitus. ADA recommended reference range Performed By: #### G KYAWLS #### Point of Care testing , Potassium [Moles/Vol] 3.7 mmol/L Normal 3.5-5.1 [facility] Comment on above: Performed By: #### G LULS #### Point of Care testing , Protein [Mass/Vol] 8.2 g/dL Normal 6.4-8.[address] [facility] Comment on above: Performed By: #### G KYAWLS #### Point of Care testing , Sodium [Moles/Vol] 129 mmol/L Low 136-[address] [facility] Comment on above: Performed By: #### G KYWALS #### Point of Care testing , Urea nitrogen [Mass/Vol] 43 mg/dL High 7-25 [facility] Comment on above: Performed By: #### G LULS #### Point of Care testing , Creatinine [Mass/volume] in Serum or PlasmaOrdered By: Sarah Davey on 04-10-2023 Creatinine [Mass/Vol] 1.21 mg/dL 0.60-1.20 [facility] Creatinine [Mass/volume] in UrineOrdered By: Neeraj Farrell on 04-10-2023 Creatinine (U) [Mass/Vol] 131.0 mg/dL 11.0-20.0 [facility] Creatinine, Urine (Random)on 04-10-2023 Creatinine, Urine (Random) 131.0 mg/dL High 11.0-20.0 [facility] Comment on above: Result Comment: PERF ORMED BY: [place] [address] PATHOLOGIST [employer] PRESSER IAN ACE M.D. Performed By: #### C UBLD, CMP, CBC #### [facility] [address] [place] [address] [place] Dipstick and Microscopicon 1 06-10-2022 Appearance (U) Clear Normal Clear [facility] Comment on above: Order Comment: Name Collection Type:: Clean-Voided Midstream Performed By: #### C UBLD, CMP, CBC #### [facility] [address] [place] [address] [place] Bacteria,Urine None Seen Normal None Seen [facility] Comment on above: Order Comment: Name Collection Type:: Clean-Voided Midstream Performed By: #### C UBLD, CMP, CBC #### [facility] [address] [place] [address] [place] Bilirubin,Urine Negative Normal Negative [facility] Comment on above: Order Comment: Name Collection Type:: Clean-Voided Midstream Performed By: #### C UBLD, CMP, CBC #### [facility] [address] [place] [address] [place] Color (U) Yellow Normal Yellow [facility] Comment on above: Order Comment: Name Collection Type:: Clean-Voided Midstream Performed By: #### C UBLD, CMP, CBC #### [facility] [address] [place] [address] [place] Glucose Ql (U) Normal Normal Normal [facility] Comment on above: Order Comment: Name Collection Type:: Clean-Voided Midstream Performed By: #### C UBLD, CMP, CBC #### [facility] [address] [place] [address] [place] Hyaline Casts,Urine 0-8 Normal 0-8 [facility] Comment on above: Order Comment: Name Collection Type:: Clean-Voided Midstream Performed By: #### C UBLD, CMP, CBC #### [facility] [address] Ketones Ql (U) Trace High Negative [facility] Comment on above: Order Comment: Name Collection Type:: Clean-Voided Midstream Performed By: #### C UBLD, CMP, CBC #### [address] Leukocyte esterase Test strip Ql (U) 1+ High Negative [facility] Comment on above: Order Comment: Name Collection Type:: Clean-Voided Midstream Performed By: #### C UBLD, CMP, CBC #### [address] Nitrite,Urine Negative Normal Negative [facility] Comment on above: Order Comment: Name Collection Type:: Clean-Voided Midstream Performed By: #### C UBLD, CMP, CBC #### [place] [address] [place] Occult Blood,Urine Negative Normal Negative [facility] Comment on above: Order Comment: Name Collection Type:: Clean-Voided Midstream Result Comment: PERF ORMED BY: [place] [address] PATHOLOGIST [employer] PRESSER IAN ACE M.D. Performed By: #### C UBLD, CMP, CBC #### [place] [address] [place] pH (U) 6.0 [pH] Normal 5.0-9.0 [facility] Comment on above: Order Comment: Name Collection Type:: Clean-Voided Midstream Performed By: #### C UBLD, CMP, CBC #### [place] [address] [place] Protein (U) [Mass/Vol] 100 mg/dL High Negative [facility] Comment on above: Order Comment: Name Collection Type:: Clean-Voided Midstream Performed By: #### C UBLD, CMP, CBC #### [facility] [address] [place] [address] RBC,Urine 1-2 Normal 0-4 [facility] Comment on above: Order Comment: Name Collection Type:: Clean-Voided Midstream Performed By: #### C UBLD, CMP, CBC #### [facility] [address] [place] [address] Specificy [place],Urine 1.034 High 1.001-1.03 0 [facility] Comment on above: Order Comment: Name Collection Type:: Clean-Voided Midstream Performed By: #### C UBLD, CMP, CBC #### [address] Squamous Epithelial Cell,Urine 3-4 High 0-2 [facility] Comment on above: Order Comment: Name Collection Type:: Clean-Voided Midstream Performed By: #### C UBLD, CMP, CBC #### [address] Urobilinogen,Urine Normal Normal Normal [facility] Comment on above: Order Comment: Name Collection Type:: Clean-Voided Midstream Performed By: #### C UBLD, CMP, CBC #### [address] WBC,Urine 10-19 High 0-4 [facility] Comment on above: Order Comment: Name Collection Type:: Clean-Voided Midstream Performed By: #### C UBLD, CMP, CBC #### [address] Yeast,Urine None Seen Normal None Seen [facility] Comment on above: Order Comment: Name Collection Type:: Clean-Voided Midstream Result Comment: PERF ORMED BY: [place] [address] PATHOLOGIST [employer] PRESSER IAN ACE M.D. Performed By: #### C UBLD, CMP, CBC #### [address] [place] [address] [place] Eosinophils Auto (Bld) [#/Vo l]Ordered By: Sarah Hammerore on 04-10-2023 Eosinophils (Bld) [#/Vol] 0.1 10*3/uL 0.0-0.45 [facility] Eosinophils/100 WBC Auto (Bl d)Ordered By: Sarah Schwarzimore on 04-10-2023 Eosinophils/100 WBC (Bld) 1.0 % . [facility] Erythrocyte Sedimentation Ra emery 04-10-2023 ESR (Bld) [Velocity] mm/h High 0-29 [facility] Comment on above: Result Comment: PERF ORMED BY: [facility] [address] [place] [address] PATHOLOGIST [employer] PRESSER IAN ACE M.D. Performed By: #### G LUROCIO #### Point of Care testing , Erythrocyte distribution wid th Auto (RBC) [Ratio]Ordered By: Sarah Davey on 04-10-2023 Erythrocyte distribution width (RBC) [Ratio] 16.8 % 11.9-15.3 [facility] Erythrocyte sedimentation ra te by Photometric methodOrdered By: Sarahros Davey on 04-10-2023 ESR Photometric method (Bld) [Velocity] > 130 mm/hr 0- [facility] Globulin Calc (S) [Mass/Vol] Ordered By: Sarahros Davey on 04-10-2023 Globulin (S) [Mass/Vol] 4.5 g/dL [facility] Glucose [Mass/volume] in Ser um or PlasmaOrdered By: Sarah Hammerore on 04-10-2023 Glucose [Mass/Vol] 109 mg/dL 70-[address] [facility] Comment on above: ADA recommended refe rence rangeRandom Glucose Reference Range is dependent on time and content of last meal. Glucose of more than 200 mg/dL in a nonstressed, ambulatory subject supports the diagnosis of Diabetes Mellitus. Hematocrit Auto (Bld) [Volum e fraction]Ordered By: Sarah Davey on 04-10-2023 Hematocrit (Bld) [Volume fraction] 39.4 % 34.0-46.4 [facility] Hemoglobin [Mass/volume] in BloodOrdered By: Sarahros Davey on 04-10-2023 Hemoglobin (Bld) [Mass/Vol] 12.7 g/dL 11.8-15.4 [facility] Ketones Auto test strip (U) [Mass/Vol]Ordered By: Sarahros Davey on 04-10-2023 Ketones (U) [Mass/Vol] Trace Negative [facility] Laboratory - UrinalysisOrder ed By: Sarah Davey on 04-10-2023 Hyaline casts LM Ql (Urine sed) 0-8 [LPF] 0-8 [facility] Lactate [Moles/volume] in Se rum or PlasmaOrdered By: Sarahros Schwarzmundo on 04-10-2023 Lactate [Moles/Vol] 1.3 mmol/L Normal 0.5-2.2 [facility] Comment on above: Result Comment: PERF ORMED BY: [place] [address] PATHOLOGIST [employer] PRESSER IAN ACE M.D. Performed By: #### C UBLD, CMP, CBC #### [address] Leukocytes [#/volume] correc julia for nucleated erythrocytes in Blood by Automated counOrdered By: Sarahros Davey on 04-10-2023 WBC corrected for nucl RBC Auto (Bld) [#/Vol] 13.0 10*3/uL 3.8-11.6 [facility] Lymphocytes Auto (Bld) [#/Vo l]Ordered By: Sarahros Schwarzmundo on 04-10-2023 Lymphocytes (Bld) [#/Vol] 0.4 10*3/uL 1.00-4.8 [facility] Lymphocytes/100 WBC Auto (Bl d)Ordered By: [facility] on 04-10-2023 Lymphocytes/100 WBC (Bld) 3.2 % . [facility] MCH Auto (RBC) [Entitic mass ]Ordered By: Sarahros Davey on 04-10-2023 MCH (RBC) [Entitic mass] 26.3 pg 24.7-34.3 [facility] MCHC Auto (RBC) [Mass/Vol]Or dered By: Sarah Bullimore on 04-10-2023 MCHC (RBC) [Mass/Vol] 32.1 g/dL 32.0-35.0 [facility] MCV Auto (RBC) [Entitic vol] Ordered By: Sarah Schwarzimore on 04-10-2023 MCV (RBC) [Entitic vol] 81.8 fL 80-100 [facility] Monocyte distribution width [Entitic volume] in Blood by AutomatedOrdered By: Sarah Schwarzimore on 04-10-2023 Monocyte distribution width Auto (Bld) [Entitic vol] 17.56 % 0.00-20.00 [facility] Monocytes Auto (Bld) [#/Vol] Ordered By: Sarah Bullimore on 04-10-2023 Monocytes (Bld) [#/Vol] 0.6 10*3/uL 0.0-0.8 [facility] Monocytes/100 WBC Auto (Bld) Ordered By: Sarah Schwarzimore on 04-10-2023 Monocytes/100 WBC (Bld) 5.0 % . [facility] Neutrophils Auto (Bld) [#/Vo l]Ordered By: Sarah Schwarzimore on 04-10-2023 Neutrophils (Bld) [#/Vol] 11.7 10*3/uL 1.8-7.7 [facility] Neutrophils/100 WBC Auto (Bl d)Ordered By: Sarah Schwarzimore on 04-10-2023 Neutrophils/100 WBC (Bld) 90.3 % . [facility] Nitrite Test strip Ql (U)Ord ered By: Sarah Schwarzimmundo on 04-10-2023 Nitrite Ql (U) Negative Negative [facility] No Panel InformationOrdered By: Sarah Davey on 04-10-2023 Estimated GFR (CKD-EPI) 49.429 mL/Min [facility] Creatinine Clearance (Chem 60.88 [facility] Nucleated erythrocytes [Pres ence] in Blood by Automated countOrdered By: Sarah Schwarzimore on 04-10-2023 Nucleated RBC Auto Ql (Bld) 0.1 /100{WBC} 0-0.5 [facility] Platelet mean volume Auto (B ld) [Entitic vol]Ordered By: Sarah Bullimore on 04-10-2023 Platelet mean volume (Bld) [Entitic vol] 7.5 fL 6.3-10.7 [facility] Platelets Auto (Bld) [#/Vol] Ordered By: Sarah Bullimore on 04-10-2023 Platelets (Bld) [#/Vol] 474 10*3/uL 150-450 [facility] Potassium [Moles/volume] in Serum or PlasmaOrdered By: Sarah Bullimore on 04-10-2023 Potassium [Moles/Vol] 3.7 mmol/L 3.5-5.1 [facility] Protein Auto test strip (U) [Mass/Vol]Ordered By: Sarah Bullimore on 04-10-2023 Protein (U) [Mass/Vol] 100 mg/dL Negative [facility] Protein [Mass/volume] in Ser um or PlasmaOrdered By: Sarah Bullimore on 04-10-2023 Protein [Mass/Vol] 8.2 g/dL 6.4-8.[address] [facility] RBC Auto (Bld) [#/Vol]Ordere d By: Sarah Bullimore on 04-10-2023 RBC (Bld) [#/Vol] 4.82 10*6/uL 3.60-5.00 [facility] Serum or plasma albumin/glob ulin mass ratioOrdered By: Sarah Bullimore on 04-10-2023 Albumin/Globulin [Mass ratio] 0.8 {ratio} [facility] Serum or plasma anion gap de terminationOrdered By: Sarah Bullimore on 04-10-2023 Anion gap [Moles/Vol] 15.3 mmol/L 6.0-15.0 [facility] Sodium [Moles/volume] in Ser um or PlasmaOrdered By: Sarah Bullimore on 04-10-2023 Sodium [Moles/Vol] 129 mmol/L 136-[address] [facility] Sodium [Moles/volume] in Uri neOrdered By: Neeraj Farrell on 04-10-2023 Sodium (U) [Moles/Vol] mmol/L [facility] Comment on above: No reference range e stablished Sodium, Urineon 04-10-2023 Sodium, Urine < 10.0 Normal [facility] Comment on above: Result Comment: No r eference range established Performed By: #### C UBLD, CMP, CBC #### [facility] [address] Specific gravity Auto test s trip (U) [Rel density]Ordered By: Sarah Davey on 04-10-2023 Specific gravity (U) [Rel density] 1.034 1.001-1.03 0 [facility] Squamous epithelial cells de tection in urine sediment by light microscopyOrdered By: Sarah Davey on 04-10-2023 Epithelial cells.squamous LM Ql (Urine sed) 3-4 [HPF] 0-2 [facility] Superficial Wound Cultureon 04-10-2023 Superficial Wound Culture ORGANISM: Klebsiella oxytoca (O:KLEOXY) Quantity of Growth Moderate Growth ORGANISM: Providencia rettgeri (O:PRORET) Quantity of Growth Moderate Growth ORGANISM: Gram Negative Bacilli (O:GNB) Comments . Quantity of Growth Heavy Growth Send Test to Ref. Lab Sent to [facility] for ID/PASTORA ORGANISM: Morganella morganii (O:MORMOR) Carbapenemase [Type] in Isolate by [employer] PRECISION LENS TECHNICIAN Organism negative for carbapenemase (CRE) Quantity of [...] = Intermediate; R = Resistant Performed at: [address] [id number] Poultry Killer: Mohsen Mccarthy PhD, Phone: [phone] Aerobic PASTORA Charge (NMIC56) SUSCEPTIBILITY ORGANISM: O:KLEOXY [...] RESISTANT TO ALL B-LACTAM DRUGS. PERFORMED BY: [facility] [address] [place] [address] PATHOLOGIST DELICATE FABRICS PRESSER IAN ACE M.D. [facility] Comment on above: Performed By: #### C USUP #### [facility] [address] Superficial Wound Culture ORGANISM: Serratia marcescens (O:SERMAR) Quantity of Growth Heavy Growth ORGANISM: Gram Negative Bacilli (O:GNB) Comments . Quantity of Growth Heavy Growth Send Test to Ref. Lab Sent to [facility] for ID/PASTORA Organism #2 identified by [facility] as Nonlactose fermenting gram negative matt. Antibiotic Amikacin S Aztreonam R Cefepime R Cefotaxime R Ceftazidime R Ceftriaxone R Ciprofloxacin R Gentamicin S Imipenem R Levofloxacin S Meropenem S Piperacillin/Tazobactam R Tetracycline S Ticarcillin/Clavulanate S Tobramycin S Trimethoprim/Sulfa S S = Susceptible; I = Intermediate; R = Resistant Performed at: [facility] [address] [place] [id number] Poultry Killer: Mohsen Mccarthy PhD, Phone: [phone] Aerobic PASTORA Charge (NMIC56) SUSCEPTIBILITY ORGANISM: O:SERMAR [...] RESISTANT TO ALL B-LACTAM DRUGS. PERFORMED BY: [place] [address] PATHOLOGIST DELICATE FABRICS PRESSER IAN ACE M.D. [facility] Comment on above: Performed By: #### C ALEXX RAND, CBC #### [facility] [address] [place] [address] Urea nitrogen [Mass/volume] in Serum or PlasmaOrdered By: Sarah Davey on 04-10-2023 Urea nitrogen [Mass/Vol] 43 mg/dL 7 [facility] Urine Cultureon 04-10-2023 Bacteria identified Cx Nom (U) >100,000 colonies/ml mixed bacterial skin contaminants 2 Days PERFORMED BY: [place] [address] PATHOLOGIST DELICATE FABRICS PRESSER IAN ACE M.D. [facility] Comment on above: Performed By: #### C GIORGI, ALEXX, CBC #### [facility] [address] [place] [id number] [facility] Urine bacteria detection by automated methodOrdered By: Sarah Davey on 04-10-2023 Bacteria Auto Ql (U) None seen None Seen [facility] Urine clarity by refractomet ry automatedOrdered By: Sarah Davey on 04-10-2023 Clarity Refractometry automated (U) Clear Clear [facility] Urine culture routineOrdered By: Sarah Davey on 04-10-2023 Bacteria identified Cx Nom (U) 2 Days [facility] Urine glucose measurement by automated test strip (mass/volume)Ordered By: Sarah Davey on 04-10-2023 Glucose Auto test strip (U) [Mass/Vol] Normal mg/dL Normal [facility] Urine hemoglobin detection b y automated test stripOrdered By: Sarah Davey on 04-10-2023 Hemoglobin Auto test strip Ql (U) Negative Negative [facility] Urine leukocyte esterase det ection by automated test stripOrdered By: Sarah Davey on 04-10-2023 Leukocyte esterase Auto test strip Ql (U) 1+ Negative [facility] Urobilinogen Auto test strip (U) [Mass/Vol]Ordered By: Sarah Davey on 04-10-2023 Urobilinogen (U) [Mass/Vol] Normal mg/dL Normal [facility] WBC Auto (Bld) [#/Vol]Ordere d By: Sarah Davey on 04-10-2023 WBC (Bld) [#/Vol] 13.0 10*3/uL 3.8-11.6 [facility] Yeast detection in urine sed iment by light microscopyOrdered By: Sarah Davey on 04-10-2023 Yeast LM Ql (Urine sed) None seen [HPF] None Seen [facility] pH Auto test strip (U)Ordere d By: Sarah Davey on 04-10-2023 pH (U) 6.0 [pH] 5.0-9.0 [facility] XR tibia/fibula BIon -31-2 023 XR tibia/fibula BI [facility] [address] [place] [address] XRay Report Signed Patient: [place]ia Cesar MR#: [id number] : 1955 Acct:[id number] Age/Sex: 67 / F ADM Date: 04/07/23 Loc: ER Room: Type: [facility] ER Attending Dr: Copies to: Jhonatan Crowell [...] Johnson Jr., D.O.04/07/2023 9:00 AM Dictation Location: [place] [address] Transcribed By: [facility] 04/07/23899 Dictated By: Andrew Johnson Jr, DO 04/07/2359 Signed By: 04/07/23899 Normal [facility] Alanine aminotransferase [En zymatic activity/volume] in Serum or PlasmaOrdered By: Chon Valdez on 12-31-2022 ALT [Catalytic activity/Vol] 29 U/L 7-52 [facility] Albumin [Mass/volume] in Ser um or Plasma by Bromocresol green (BCG) dye binding methoOrdered By: Chon Valdez on 12-31-2022 Albumin BCG dye [Mass/Vol] 3.7 g/dL 3.5-5.7 [facility] Alkaline phosphatase [Enzyma tic activity/volume] in Serum or PlasmaOrdered By: Chon Valdez on 12-31-2022 ALP [Catalytic activity/Vol] 97 U/L 34-104 [facility] Aspartate aminotransferase [ Enzymatic activity/volume] in Serum or PlasmaOrdered By: Chon Valdez on 12-31-2022 AST [Catalytic activity/Vol] 34 U/L 13-39 [facility] Basophils Auto (Bld) [#/Vol] Ordered By: Chon Valdez on 12-31-2022 Basophils (Bld) [#/Vol] 0.0 10*3/uL 0.0-0.2 [facility] Basophils/100 WBC Auto (Bld) Ordered By: Chon Valdez on 12-31-2022 Basophils/100 WBC (Bld) 0.4 % . [facility] Bilirubin.total [Mass/volume ] in Serum or PlasmaOrdered By: Chon Valdez on 12-31-2022 Bilirubin [Mass/Vol] 0.3 mg/dL 0.3-1.0 [facility] Calcium [Mass/volume] in Ser um or PlasmaOrdered By: Chon Valdez on 12-31-2022 Calcium [Mass/Vol] 9.0 mg/dL 8.6-10.[address] [facility] Carbon dioxide, total [Moles /volume] in Serum or PlasmaOrdered By: Chon Valdez on 12-31-2022 CO2 [Moles/Vol] 24.9 mmol/L 21.0-31.0 [facility] Chloride [Moles/volume] in S marivel or PlasmaOrdered By: Chon Valdez on 12-31-2022 Chloride [Moles/Vol] 106 mmol/L 98-107 [facility] Complete Blood Count Auto Di ffon 12-31-2022 Basophils (Bld) [#/Vol] 0.0 10*3/uL Normal 0.0-0.2 [facility] Comment on above: Result Comment: PERF ORMED BY: [facility] [address] [place] [address] PATHOLOGIST DELICATE FABRICS PRESSER IAN ACE M.D. Performed By: #### G LULS #### Point of Care testing , Basophils/100 WBC (Bld) 0.4 % Normal . [facility] Comment on above: Performed By: #### G LULS #### Point of Care testing , Eosinophils (Bld) [#/Vol] 0.3 10*3/uL Normal 0.0-0.45 [facility] Comment on above: Performed By: #### G LULS #### Point of Care testing , Eosinophils/100 WBC (Bld) 3.9 % Normal . [facility] Comment on above: Performed By: #### Jodi AHMADI #### Point of Care testing , Erythrocyte distribution width (RBC) [Ratio] 17.3 % High 11.9-15.3 [facility] Comment on above: Performed By: #### Jodi AHMADI #### Point of Care testing , Hematocrit (Bld) [Volume fraction] 35.9 % Normal 34.0-46.4 [facility] Comment on above: Performed By: #### Jodi AHMADI #### Point of Care testing , Hemoglobin (Bld) [Mass/Vol] 11.6 g/dL Low 11.8-15.4 [facility] Comment on above: Performed By: #### Jodi AHMADI #### Point of Care testing , Lymphocytes (Bld) [#/Vol] 0.8 10*3/uL Low 1.00-4.8 [facility] Comment on above: Performed By: #### Jodi CARDLS #### Point of Care testing , Lymphocytes/100 WBC (Bld) 9.3 % Normal . [facility] Comment on above: Performed By: #### Jodi AHMADI #### Point of Care testing , MCH (RBC) [Entitic mass] 26.1 pg Normal 24.7-34.3 [facility] Comment on above: Performed By: #### Jodi AHMADI #### Point of Care testing , MCV (RBC) [Entitic vol] 80.5 fL Normal 80-100 [facility] Comment on above: Performed By: #### Jodi AHMADI #### Point of Care testing , Mean Corpuscular HGB Conc 32.5 g/dL Normal 32.0-35.0 [facility] Comment on above: Performed By: #### Jodi CARDLS #### Point of Care testing , Monocytes (Bld) [#/Vol] 0.9 10*3/uL High 0.0-0.8 [facility] Comment on above: Performed By: #### Jodi AHMADI #### Point of Care testing , Monocytes/100 WBC (Bld) 19.53 % Normal 0.00-20.00 [facility] Comment on above: Performed By: #### G KYAWLS #### Point of Care testing , Monocytes/100 WBC (Bld) 11.2 % Normal . [facility] Comment on above: Performed By: #### G KYAWLS #### Point of Care testing , Neutrophils (Bld) [#/Vol] 6.1 10*3/uL Normal 1.8-7.7 [facility] Comment on above: Performed By: #### G KYAWLS #### Point of Care testing , Neutrophils/100 WBC (Bld) 75.2 % Normal . [facility] Comment on above: Performed By: #### G KYAWLS #### Point of Care testing , NRBC% 0.1 /100{WBC} Normal 0-0.5 [facility] Comment on above: Performed By: #### G KYAWLS #### Point of Care testing , Platelet mean volume (Bld) [Entitic vol] 7.9 fL Normal 6.3-10.7 [facility] Comment on above: Performed By: #### G KYAWLS #### Point of Care testing , Platelets (Bld) [#/Vol] 258 10*3/uL Normal 150-450 [facility] Comment on above: Performed By: #### G KYAWLS #### Point of Care testing , RBC (Bld) [#/Vol] 4.46 10*6/uL Normal 3.60-5.00 [facility] Comment on above: Performed By: #### G KYAWLS #### Point of Care testing , WBC (Bld) [#/Vol] 8.2 10*3/uL Normal 3.8-11.[address] [facility] Comment on above: Performed By: #### G KYAWLS #### Point of Care testing , Comprehensive Metabolic Pane jeremy 12-31-2022 Albumin [Mass/Vol] 3.7 g/dL Normal 3.5-5.[address] [facility] Comment on above: Performed By: #### G KYAWLS #### Point of Care testing , Albumin/Globulin [Mass ratio] 1.3 {ratio} Normal [facility] Comment on above: Performed By: #### G DAIANA #### Point of Care testing , ALP [Catalytic activity/Vol] 97 U/L Normal 34-104 [facility] Comment on above: Performed By: #### G KYAWLS #### Point of Care testing , ALT [Catalytic activity/Vol] 29 U/L Normal 7-52 [facility] Comment on above: Performed By: #### G KYAWLS #### Point of Care testing , Anion gap [Moles/Vol] 11.3 mmol/L Normal 6.0-15.0 [facility] Comment on above: Performed By: #### G KYAWLS #### Point of Care testing , AST [Catalytic activity/Vol] 34 U/L Normal 13-39 [facility] Comment on above: Performed By: #### G KYAWLS #### Point of Care testing , Bilirubin [Mass/Vol] 0.3 mg/dL Normal 0.3-1.0 [facility] Comment on above: Performed By: #### G DAIANA #### Point of Care testing , Calcium [Mass/Vol] 9.0 mg/dL Normal 8.6-10.[address] [facility] Comment on above: Performed By: #### G KYAWLS #### Point of Care testing , Chloride [Moles/Vol] 106 mmol/L Normal 98-107 [facility] Comment on above: Performed By: #### G KYAWLS #### Point of Care testing , CO2 [Moles/Vol] 24.9 mmol/L Normal 21.0-31.0 [facility] Comment on above: Performed By: #### G KYAWLS #### Point of Care testing , Creatinine [Mass/Vol] 0.75 mg/dL Normal 0.60-1.20 [facility] Comment on above: Performed By: #### G KYAWLS #### Point of Care testing , Creatinine Clr Calc Pharmacy 97.74 Normal [facility] Comment on above: Result Comment: PERF ORMED BY: [facility] [address] [place] [address] PATHOLOGIST DELICATE FABRICS PRESSER IAN ACE M.D. Performed By: #### G LULS #### Point of Care testing , GFR/1.73 sq M.predicted MDRD (S/P/Bld) [Vol rate/Area] mL/min/{1.73_m2} [facility] Comment on above: Performed By: #### G LULS #### Point of Care testing , Globulin (S) [Mass/Vol] 2.9 g/dL [facility] Comment on above: Performed By: #### G LULS #### Point of Care testing , Glucose [Mass/Vol] 108 mg/dL High 70-[address] [facility] Comment on above: Result Comment: [facility] Glucose Reference Range is dependent on time and content of last meal. Glucose of more than 200 mg/dL in a nonstressed, ambulatory subject supports the diagnosis of Diabetes Mellitus. ADA recommended reference range Performed By: #### G LULS #### Point of Care testing , Potassium [Moles/Vol] 4.2 mmol/L Normal 3.5-5.1 [facility] Comment on above: Performed By: #### G LULS #### Point of Care testing , Protein [Mass/Vol] 6.6 g/dL Normal 6.4-8.[address] [facility] Comment on above: Performed By: #### G LULS #### Point of Care testing , Sodium [Moles/Vol] 138 mmol/L Normal 136-[address] [facility] Comment on above: Performed By: #### G LULS #### Point of Care testing , Urea nitrogen [Mass/Vol] 36 mg/dL High 7-25 [facility] Comment on above: Performed By: #### G LULS #### Point of Care testing , Creatinine [Mass/volume] in Serum or PlasmaOrdered By: Chon Valdez on 12-31-2022 Creatinine [Mass/Vol] 0.75 mg/dL 0.60-1.20 [facility] Eosinophils Auto (Bld) [#/Vo l]Ordered By: Chon Valdez on 12-31-2022 Eosinophils (Bld) [#/Vol] 0.3 10*3/uL 0.0-0.45 [facility] Eosinophils/100 WBC Auto (Bl d)Ordered By: Chon Valdez on 12-31-2022 Eosinophils/100 WBC (Bld) 3.9 % . [facility] Erythrocyte distribution wid th Auto (RBC) [Ratio]Ordered By: Chon Valdez on 12-31-2022 Erythrocyte distribution width (RBC) [Ratio] 17.3 % 11.9-15.3 [facility] Globulin Calc (S) [Mass/Vol] Ordered By: Chon Valdez on 12-31-2022 Globulin (S) [Mass/Vol] 2.9 g/dL [facility] Glucose [Mass/volume] in Ser um or PlasmaOrdered By: Chon Valdez on 12-31-2022 Glucose [Mass/Vol] 108 mg/dL 70-[address] [facility] Comment on above: ADA recommended refe rence rangeRandom Glucose Reference Range is dependent on time and content of last meal. Glucose of more than 200 mg/dL in a nonstressed, ambulatory subject supports the diagnosis of Diabetes Mellitus. Hematocrit Auto (Bld) [Volum e fraction]Ordered By: Chon Valdez on 12-31-2022 Hematocrit (Bld) [Volume fraction] 35.9 % 34.0-46.4 [facility] Hemoglobin [Mass/volume] in BloodOrdered By: Chon Valdez on 12-31-2022 Hemoglobin (Bld) [Mass/Vol] 11.6 g/dL 11.8-15.4 [facility] Leukocytes [#/volume] correc julia for nucleated erythrocytes in Blood by Automated counOrdered By: Chon Valdez on 12-31-2022 WBC corrected for nucl RBC Auto (Bld) [#/Vol] 8.2 10*3/uL 3.8-11.6 [facility] Lymphocytes Auto (Bld) [#/Vo l]Ordered By: Chon Valdez on 12-31-2022 Lymphocytes (Bld) [#/Vol] 0.8 10*3/uL 1.00-4.8 [facility] Lymphocytes/100 WBC Auto (Bl d)Ordered By: Chon Valdez on 12-31-2022 Lymphocytes/100 WBC (Bld) 9.3 % . [facility] MCH Auto (RBC) [Entitic mass ]Ordered By: Chon Valdez on 12-31-2022 MCH (RBC) [Entitic mass] 26.1 pg 24.7-34.3 [facility] MCHC Auto (RBC) [Mass/Vol]Or dered By: Chon Valdez on 12-31-2022 MCHC (RBC) [Mass/Vol] 32.5 g/dL 32.0-35.0 [facility] MCV Auto (RBC) [Entitic vol] Ordered By: Chon Valdez on 12-31-2022 MCV (RBC) [Entitic vol] 80.5 fL 80-100 [facility] Monocyte distribution width [Entitic volume] in Blood by AutomatedOrdered By: Chon Valdez on 12-31-2022 Monocyte distribution width Auto (Bld) [Entitic vol] 19.53 % 0.00-20.00 [facility] Monocytes Auto (Bld) [#/Vol] Ordered By: Chon Valdez on 12-31-2022 Monocytes (Bld) [#/Vol] 0.9 10*3/uL 0.0-0.8 [facility] Monocytes/100 WBC Auto (Bld) Ordered By: Chon Valdez on 12-31-2022 Monocytes/100 WBC (Bld) 11.2 % . [facility] Neutrophils Auto (Bld) [#/Vo l]Ordered By: Chon Valdez on 12-31-2022 Neutrophils (Bld) [#/Vol] 6.1 10*3/uL 1.8-7.7 [facility] Neutrophils/100 WBC Auto (Bl d)Ordered By: Chon Valdez on 12-31-2022 Neutrophils/100 WBC (Bld) 75.2 % . [facility] No Panel InformationOrdered By: Chon Valdez on 12-31-2022 Estimated GFR (CKD-EPI) > 60.0 mL/Min [facility] Creatinine Clearance (Chem 97.74 [facility] Nucleated erythrocytes [Pres ence] in Blood by Automated countOrdered By: Chon Valdez on 12-31-2022 Nucleated RBC Auto Ql (Bld) 0.1 /100{WBC} 0-0.5 [facility] Platelet mean volume Auto (B ld) [Entitic vol]Ordered By: Chon Valdez on 12-31-2022 Platelet mean volume (Bld) [Entitic vol] 7.9 fL 6.3-10.7 [facility] Platelets Auto (Bld) [#/Vol] Ordered By: Chon Valdez on 12-31-2022 Platelets (Bld) [#/Vol] 258 10*3/uL 150-450 [facility] Potassium [Moles/volume] in Serum or PlasmaOrdered By: Chon Valdez on 12-31-2022 Potassium [Moles/Vol] 4.2 mmol/L 3.5-5.1 [facility] Protein [Mass/volume] in Ser um or PlasmaOrdered By: Chon Valdez on 12-31-2022 Protein [Mass/Vol] 6.6 g/dL 6.4-8.[address] [facility] RBC Auto (Bld) [#/Vol]Ordere d By: Chon Valdez on 12-31-2022 RBC (Bld) [#/Vol] 4.46 10*6/uL 3.60-5.00 [facility] Serum or plasma albumin/glob ulin mass ratioOrdered By: Chon Valdez on 12-31-2022 Albumin/Globulin [Mass ratio] 1.3 {ratio} [facility] Serum or plasma anion gap de terminationOrdered By: Chon Valdez on 12-31-2022 Anion gap [Moles/Vol] 11.3 mmol/L 6.0-15.0 [facility] Sodium [Moles/volume] in Ser um or PlasmaOrdered By: Chon Valdez on 12-31-2022 Sodium [Moles/Vol] 138 mmol/L 136-[address] [facility] Urea nitrogen [Mass/volume] in Serum or PlasmaOrdered By: Chon Valdez on 12-31-2022 Urea nitrogen [Mass/Vol] 36 mg/dL 7-25 [facility] WBC Auto (Bld) [#/Vol]Ordere d By: Chon Valdez on 12-31-2022 WBC (Bld) [#/Vol] 8.2 10*3/uL 3.8-11.[address] [facility] Complete Blood Count Auto Di ffon 12-14-2022 Basophils (Bld) [#/Vol] 0.1 10*3/uL Normal 0.0-0.2 [facility] Comment on above: Result Comment: PERF ORMED BY: [place] [address] PATHOLOGIST DELICATE F[employer] PRESSER IAN ACE M.D. Performed By: #### L ACTIC, CMP, CBC #### [facility] [address] [place] [address] [place] Basophils/100 WBC (Bld) 1.0 % Normal . [facility] Comment on above: Performed By: #### L ACTIC, CMP, CBC #### [facility] [address] [place] [address] [place] Eosinophils (Bld) [#/Vol] 0.4 10*3/uL Normal 0.0-0.45 [facility] Comment on above: Performed By: #### L ACTIC, CMP, CBC #### [place] [address] [place] Eosinophils/100 WBC (Bld) 4.9 % Normal . [facility] Comment on above: Performed By: #### L ACTIC, CMP, CBC #### [facility] [address] [place] [address] [place] Erythrocyte distribution width (RBC) [Ratio] 17.6 % High 11.9-15.3 [facility] Comment on above: Performed By: #### L ACTIC, CMP, CBC #### [facility] [address] [place] [address] [place] Hematocrit (Bld) [Volume fraction] 36.1 % Normal 34.0-46.4 [facility] Comment on above: Performed By: #### L ACTIC, CMP, CBC #### [facility] [address] [place] [address] [place] Hemoglobin (Bld) [Mass/Vol] 11.6 g/dL Low 11.8-15.4 [facility] Comment on above: Performed By: #### L ACTIC, CMP, CBC #### [facility] [address] [place] [address] [place] Lymphocytes (Bld) [#/Vol] 1.3 10*3/uL Normal 1.00-4.8 [facility] Comment on above: Performed By: #### L ACTIC, CMP, CBC #### [address] Lymphocytes/100 WBC (Bld) 17.2 % Normal . [facility] Comment on above: Performed By: #### L ACTIC, CMP, CBC #### [address] MCH (RBC) [Entitic mass] 25.9 pg Normal 24.7-34.3 [facility] Comment on above: Performed By: #### L ACTIC, CMP, CBC #### [address] MCV (RBC) [Entitic vol] 80.4 fL Normal 80-100 [facility] Comment on above: Performed By: #### L ACTIC, CMP, CBC #### [address] Mean Corpuscular HGB Conc 32.2 g/dL Normal 32.0-35.0 [facility] Comment on above: Performed By: #### L ACTIC, CMP, CBC #### [place] [address] [place] Monocytes (Bld) [#/Vol] 0.7 10*3/uL Normal 0.0-0.8 [facility] Comment on above: Performed By: #### L ACTIC, CMP, CBC #### [place] [address] [place] Monocytes/100 WBC (Bld) 19.39 % Normal 0.00-20.00 [facility] Comment on above: Performed By: #### L ACTIC, CMP, CBC #### [place] [address] [place] Monocytes/100 WBC (Bld) 9.1 % Normal . [facility] Comment on above: Performed By: #### L ACTIC, CMP, CBC #### [facility] [address] Neutrophils (Bld) [#/Vol] 5.0 10*3/uL Normal 1.8-7.7 [facility] Comment on above: Performed By: #### L ACTIC, CMP, CBC #### [facility] [address] Neutrophils/100 WBC (Bld) 67.8 % Normal . [facility] Comment on above: Performed By: #### L ACTIC, CMP, CBC #### [address] NRBC% 0.1 /100{WBC} Normal 0-0.5 [facility] Comment on above: Performed By: #### L ACTIC, CMP, CBC #### [address] Platelet mean volume (Bld) [Entitic vol] 8.0 fL Normal 6.3-10.7 [facility] Comment on above: Performed By: #### L ACTIC, CMP, CBC #### [address] Platelets (Bld) [#/Vol] 204 10*3/uL Normal 150-450 [facility] Comment on above: Performed By: #### L ACTIC, CMP, CBC #### [address] RBC (Bld) [#/Vol] 4.49 10*6/uL Normal 3.60-5.00 [facility] Comment on above: Performed By: #### L ACTIC, CMP, CBC #### [place] [address] [place] WBC (Bld) [#/Vol] 7.4 10*3/uL Normal 3.8-11.[address] [facility] Comment on above: Performed By: #### L ACTIC, CMP, CBC #### [address] Comprehensive Metabolic Pane jeremy 12-14-2022 Albumin [Mass/Vol] 4.0 g/dL Normal 3.5-5.[address] [facility] Comment on above: Performed By: #### L ACTPERCY CMP, CBC #### [facility] [address] Albumin/Globulin [Mass ratio] 1.4 {ratio} Normal [facility] Comment on above: Performed By: #### L ACTIC, CMP, CBC #### [facility] [address] ALP [Catalytic activity/Vol] 81 U/L Normal 34-104 [facility] Comment on above: Performed By: #### L ACTPERCY CMP, CBC #### [facility] [address] ALT [Catalytic activity/Vol] 21 U/L Normal 7-52 [facility] Comment on above: Performed By: #### L ACTPERCY, CMP, CBC #### [facility] [address] Anion gap [Moles/Vol] 12.1 mmol/L Normal 6.0-15.0 [facility] Comment on above: Performed By: #### L ACTPERCY, CMP, CBC #### [facility] [address] AST [Catalytic activity/Vol] 22 U/L Normal 13-39 [facility] Comment on above: Performed By: #### L ACTIC, CMP, CBC #### [facility] [address] [place] [address] [place] Bilirubin [Mass/Vol] 0.3 mg/dL Normal 0.3-1.0 [facility] Comment on above: Performed By: #### L ACTIC, CMP, CBC #### [facility] [address] Calcium [Mass/Vol] 8.9 mg/dL Normal 8.6-10.[address] [facility] Comment on above: Performed By: #### L ACTIC, CMP, CBC #### [facility] [address] Chloride [Moles/Vol] 106 mmol/L Normal 98-107 [facility] Comment on above: Performed By: #### L ALEXX ADLER, CBC #### [address] CO2 [Moles/Vol] 27.1 mmol/L Normal 21.0-31.0 [facility] Comment on above: Performed By: #### L ALEXX ADLER, CBC #### [address] Creatinine [Mass/Vol] 0.94 mg/dL Normal 0.60-1.20 [facility] Comment on above: Performed By: #### L ALEXX ADLER, CBC #### [address] Creatinine Clr Calc Pharmacy 86.28 [facility] Comment on above: Result Comment: PERF ORMED BY: [place] [address] PATHOLOGIST DELIC[employer] PRESSER IAN ACE M.D. Performed By: #### L ALEXX ADLRE, CBC #### [address] GFR/1.73 sq M.predicted MDRD (S/P/Bld) [Vol rate/Area] mL/min/{1.73_m2} [facility] Comment on above: Performed By: #### L ALEXX ADLER, CBC #### [address] Globulin (S) [Mass/Vol] 2.9 g/dL [facility] Comment on above: Performed By: #### L ALEXX ADLER, CBC #### [address] Glucose [Mass/Vol] 98 mg/dL Normal 70-[address] [facility] Comment on above: Result Comment: [facility] Glucose Reference Range is dependent on time and content of last meal. Glucose of more than 200 mg/dL in a nonstressed, ambulatory subject supports the diagnosis of Diabetes Mellitus. ADA recommended reference range Performed By: #### L ACTIC, CMP, CBC #### [facility] [address] Potassium [Moles/Vol] 4.2 mmol/L Normal 3.5-5.1 [facility] Comment on above: Performed By: #### L ACTIC, CMP, CBC #### [facility] [address] Protein [Mass/Vol] 6.9 g/dL Normal 6.4-8.[address] [facility] Comment on above: Performed By: #### L ACTIC, CMP, CBC #### [address] Sodium [Moles/Vol] 141 mmol/L Normal 136-[address] [facility] Comment on above: Performed By: #### L ACTIC, CMP, CBC #### [address] Urea nitrogen [Mass/Vol] 24 mg/dL Normal 7-25 [facility] Comment on above: Performed By: #### L ACTIC, CMP, CBC #### [address] Lactic Acidon 12-14-2022 Lactate [Moles/Vol] 0.9 mmol/L Normal 0.5-2.2 [facility] Comment on above: Result Comment: PERF ORMED BY: [place] [address] PATHOLOGIST DELIC[employer] PRESSER IAN ACE M.D. Performed By: #### L ACTIC, CMP, CBC #### [address] Superficial Wound Cultureon 12-14-2022 Superficial Wound Culture Claudia haemulonii results called at 1420 on 12/18/22. ORGANISM: Pseudomonas aeruginosa (O:PSEAER) Carbapenemase [Type] in Isolate by [employer] PRECISION LENS TECHNICIAN Organism negative for carbapenemase (CRE) Quantity of [...] RESISTANT TO ALL B-LACTAM DRUGS. PERFORMED BY: [place] [address] PATHOLOGIST DELICATE [employer] PRESSER IAN ACE M.D. [facility] Comment on above: Performed By: #### C UBLD, CMP, CBC #### [facility] [address] [place] [address] Alanine aminotransferase [En zymatic activity/volume] in Serum or PlasmaOrdered By: Chon Valdez on 12-13-2022 ALT [Catalytic activity/Vol] 21 U/L 7-52 [facility] Albumin [Mass/volume] in Ser um or Plasma by Bromocresol green (BCG) dye binding methoOrdered By: Chon Valdez on 12-13-2022 Albumin BCG dye [Mass/Vol] 4.0 g/dL 3.5-5.7 [facility] Alkaline phosphatase [Enzyma tic activity/volume] in Serum or PlasmaOrdered By: Chon Valdez on 12-13-2022 ALP [Catalytic activity/Vol] 81 U/L 34-104 [facility] Aspartate aminotransferase [ Enzymatic activity/volume] in Serum or PlasmaOrdered By: Chon Valdez on 12-13-2022 AST [Catalytic activity/Vol] 22 U/L 13-39 [facility] Bacteria identified Aer cx N om (Unsp spec)Ordered By: Chon Valdez on 12-13-2022 Superficial Wound Culture Pseudomonas aeruginosa [facility] Superficial Wound Culture Enterococcus faecalis [facility] Superficial Wound Culture Pseudomonas aeruginosa#2 [facility] Superficial Wound Culture Methicillin Resis Staph Aureus [facility] Superficial Wound Culture Claudia haemulonii [facility] Basophils Auto (Bld) [#/Vol] Ordered By: Chon Valdez on 12-13-2022 Basophils (Bld) [#/Vol] 0.1 10*3/uL 0.0-0.2 [facility] Basophils/100 WBC Auto (Bld) Ordered By: Chon Valdez on 12-13-2022 Basophils/100 WBC (Bld) 1.0 % . [facility] Bilirubin.total [Mass/volume ] in Serum or PlasmaOrdered By: Chon Valdez on 12-13-2022 Bilirubin [Mass/Vol] 0.3 mg/dL 0.3-1.0 [facility] Calcium [Mass/volume] in Ser um or PlasmaOrdered By: Chon Valdez on 12-13-2022 Calcium [Mass/Vol] 8.9 mg/dL 8.6-10.[address] [facility] Carbon dioxide, total [Moles /volume] in Serum or PlasmaOrdered By: Chon Valdez on 12-13-2022 CO2 [Moles/Vol] 27.1 mmol/L 21.0-31.0 [facility] Chloride [Moles/volume] in S marivel or PlasmaOrdered By: Chon Valdez on 12-13-2022 Chloride [Moles/Vol] 106 mmol/L 98-107 [facility] Creatinine [Mass/volume] in Serum or PlasmaOrdered By: Chon Valdez on 12-13-2022 Creatinine [Mass/Vol] 0.94 mg/dL 0.60-1.20 [facility] Eosinophils Auto (Bld) [#/Vo l]Ordered By: Chon Valdez on 12-13-2022 Eosinophils (Bld) [#/Vol] 0.4 10*3/uL 0.0-0.45 [facility] Eosinophils/100 WBC Auto (Bl d)Ordered By: Chon Valdez on 12-13-2022 Eosinophils/100 WBC (Bld) 4.9 % . [facility] Erythrocyte distribution wid th Auto (RBC) [Ratio]Ordered By: Chon Valdez on 12-13-2022 Erythrocyte distribution width (RBC) [Ratio] 17.6 % 11.9-15.3 [facility] Globulin Calc (S) [Mass/Vol] Ordered By: Chon Valdez on 12-13-2022 Globulin (S) [Mass/Vol] 2.9 g/dL [facility] Glucose [Mass/volume] in Ser um or PlasmaOrdered By: Chon Valdez on 12-13-2022 Glucose [Mass/Vol] 98 mg/dL 70-[address] [facility] Comment on above: ADA recommended refe rence rangeRandom Glucose Reference Range is dependent on time and content of last meal. Glucose of more than 200 mg/dL in a nonstressed, ambulatory subject supports the diagnosis of Diabetes Mellitus. Hematocrit Auto (Bld) [Volum e fraction]Ordered By: Chon Valdez on 12-13-2022 Hematocrit (Bld) [Volume fraction] 36.1 % 34.0-46.4 [facility] Hemoglobin [Mass/volume] in BloodOrdered By: Chon Valdez on 12-13-2022 Hemoglobin (Bld) [Mass/Vol] 11.6 g/dL 11.8-15.4 [facility] Lactate [Moles/volume] in Se rum or PlasmaOrdered By: Chon Valdez on 12-13-2022 Lactate [Moles/Vol] 0.9 mmol/L 0.5-2.2 [facility] Leukocytes [#/volume] correc julia for nucleated erythrocytes in Blood by Automated counOrdered By: Chon Valdez on 12-13-2022 WBC corrected for nucl RBC Auto (Bld) [#/Vol] 7.4 10*3/uL 3.8-11.6 [facility] Lymphocytes Auto (Bld) [#/Vo l]Ordered By: Chon Valdez on 12-13-2022 Lymphocytes (Bld) [#/Vol] 1.3 10*3/uL 1.00-4.8 [facility] Lymphocytes/100 WBC Auto (Bl d)Ordered By: Chon Valdez on 12-13-2022 Lymphocytes/100 WBC (Bld) 17.2 % . [facility] MCH Auto (RBC) [Entitic mass ]Ordered By: Chon Valdez on 12-13-2022 MCH (RBC) [Entitic mass] 25.9 pg 24.7-34.3 [facility] MCHC Auto (RBC) [Mass/Vol]Or dered By: Chon Valdez on 12-13-2022 MCHC (RBC) [Mass/Vol] 32.2 g/dL 32.0-35.0 [facility] MCV Auto (RBC) [Entitic vol] Ordered By: Chon Valdez on 12-13-2022 MCV (RBC) [Entitic vol] 80.4 fL 80-100 [facility] Monocyte distribution width [Entitic volume] in Blood by AutomatedOrdered By: Chon Valdez on 12-13-2022 Monocyte distribution width Auto (Bld) [Entitic vol] 19.39 % 0.00-20.00 [facility] Monocytes Auto (Bld) [#/Vol] Ordered By: Chon Valdez on 12-13-2022 Monocytes (Bld) [#/Vol] 0.7 10*3/uL 0.0-0.8 [facility] Monocytes/100 WBC Auto (Bld) Ordered By: Chon Valdez on 12-13-2022 Monocytes/100 WBC (Bld) 9.1 % . [facility] Neutrophils Auto (Bld) [#/Vo l]Ordered By: Chon Valdez on 12-13-2022 Neutrophils (Bld) [#/Vol] 5.0 10*3/uL 1.8-7.7 [facility] Neutrophils/100 WBC Auto (Bl d)Ordered By: hCon Valdez on 12-13-2022 Neutrophils/100 WBC (Bld) 67.8 % . [facility] No Panel InformationOrdered By: Chon Valdez on 12-13-2022 Estimated GFR (CKD-EPI) > 60.0 mL/Min [facility] Pharm[facility] Creatinine Clearance (Chem 86.28 [facility] Nucleated erythrocytes [Pres ence] in Blood by Automated countOrdered By: Chon Valdez on 12-13-2022 Nucleated RBC Auto Ql (Bld) 0.1 /100{WBC} 0-0.5 [facility] Platelet mean volume Auto (B ld) [Entitic vol]Ordered By: Chon Valdez on 12-13-2022 Platelet mean volume (Bld) [Entitic vol] 8.0 fL 6.3-10.7 [facility] Platelets Auto (Bld) [#/Vol] Ordered By: Chon Valdez on 12-13-2022 Platelets (Bld) [#/Vol] 204 10*3/uL 150-450 [facility] Potassium [Moles/volume] in Serum or PlasmaOrdered By: Chon Valdez on 12-13-2022 Potassium [Moles/Vol] 4.2 mmol/L 3.5-5.1 [facility] Protein [Mass/volume] in Ser um or PlasmaOrdered By: Chon Valdez on 12-13-2022 Protein [Mass/Vol] 6.9 g/dL 6.4-8.[address] [facility] RBC Auto (Bld) [#/Vol]Ordere d By: Chon Valdez on 12-13-2022 RBC (Bld) [#/Vol] 4.49 10*6/uL 3.60-5.00 [facility] Serum or plasma albumin/glob ulin mass ratioOrdered By: Chon Valdez on 12-13-2022 Albumin/Globulin [Mass ratio] 1.4 {ratio} [facility] Serum or plasma anion gap de terminationOrdered By: Chon Valdez on 12-13-2022 Anion gap [Moles/Vol] 12.1 mmol/L 6.0-15.0 [facility] Sodium [Moles/volume] in Ser um or PlasmaOrdered By: Chon Valdez on 12-13-2022 Sodium [Moles/Vol] 141 mmol/L 136-[address] [facility] Urea nitrogen [Mass/volume] in Serum or PlasmaOrdered By: Chon Valdez on 12-13-2022 Urea nitrogen [Mass/Vol] 24 mg/dL 7-25 [facility] WBC Auto (Bld) [#/Vol]Ordere d By: Chon Valdez on 12-13-2022 WBC (Bld) [#/Vol] 7.4 10*3/uL 3.8-11.[address] [facility] Alanine aminotransferase [En zymatic activity/volume] in Serum or PlasmaOrdered By: Laith Warner on 12-01-2022 ALT [Catalytic activity/Vol] 21 U/L 7-52 [facility] Albumin [Mass/volume] in Ser um or Plasma by Bromocresol green (BCG) dye binding methoOrdered By: Laith Warner on 12-01-2022 Albumin BCG dye [Mass/Vol] 4.2 g/dL 3.5-5.7 [facility] Alkaline phosphatase [Enzyma tic activity/volume] in Serum or PlasmaOrdered By: Laith Warner on 12-01-2022 ALP [Catalytic activity/Vol] 71 U/L 34-104 [facility] Aspartate aminotransferase [ Enzymatic activity/volume] in Serum or PlasmaOrdered By: Laith Warner on 12-01-2022 AST [Catalytic activity/Vol] 26 U/L 13-39 [facility] Bacterial blood cultureOrder ed By: Laith Warner on 12-01-2022 Bacteria identified Cx Nom (Bld) NO GROWTH 5 DAYS [facility] Basophils Auto (Bld) [#/Vol] Ordered By: Laith Warner on 12-01-2022 Basophils (Bld) [#/Vol] 0.0 10*3/uL 0.0-0.2 [facility] Basophils/100 WBC Auto (Bld) Ordered By: Laith Warner on 12-01-2022 Basophils/100 WBC (Bld) 0.6 % . [facility] Bilirubin.total [Mass/volume ] in Serum or PlasmaOrdered By: Laith Warner on 12-01-2022 Bilirubin [Mass/Vol] 0.3 mg/dL 0.3-1.0 [facility] Blood Cultureon 12-01-2022 Bacteria identified Cx Nom (Bld) NO GROWTH 5 DAYS PERFORMED BY: [place] [address] PATHOLOGIST DELIC[employer] PRESSER IAN ACE M.D. [facility] Comment on above: Performed By: #### L ACTIC, CMP, CBC #### [address] Bacteria identified Cx Nom (Bld) NO GROWTH 5 DAYS PERFORMED BY: [place] [address] PATHOLOGIST DELIC[employer] PRESSER IAN ACE M.D. Normal [facility] Comment on above: Performed By: #### L ACTIC, CMP, CBC #### [facility] [address] Calcium [Mass/volume] in Ser um or PlasmaOrdered By: Laith Warner on 12-01-2022 Calcium [Mass/Vol] 8.9 mg/dL 8.6-10.[address] [facility] Carbon dioxide, total [Moles /volume] in Serum or PlasmaOrdered By: Laith Warner on 12-01-2022 CO2 [Moles/Vol] 24.3 mmol/L 21.0-31.0 [facility] Chloride [Moles/volume] in S marivel or PlasmaOrdered By: Laith Warner on 12-01-2022 Chloride [Moles/Vol] 109 mmol/L 98-107 [facility] Complete Blood Count Auto Di ffon 12-01-2022 Basophils (Bld) [#/Vol] 0.0 10*3/uL Normal 0.0-0.2 [facility] Comment on above: Result Comment: PERF ORMED BY: [facility] [address] [place] [address] PATHOLOGIST DELIC[employer] PRESSER IAN ACE M.D. Performed By: #### G LULS #### Point of Care testing , Basophils/100 WBC (Bld) 0.6 % Normal . [facility] Comment on above: Performed By: #### G LULS #### Point of Care testing , Eosinophils (Bld) [#/Vol] 0.4 10*3/uL Normal 0.0-0.45 [facility] Comment on above: Performed By: #### G LULS #### Point of Care testing , Eosinophils/100 WBC (Bld) 5.7 % Normal . [facility] Comment on above: Performed By: #### G LULS #### Point of Care testing , Erythrocyte distribution width (RBC) [Ratio] 17.4 % High 11.9-15.3 [facility] Comment on above: Performed By: #### G LULS #### Point of Care testing , Hematocrit (Bld) [Volume fraction] 35.5 % Normal 34.0-46.4 [facility] Comment on above: Performed By: #### G KYAWLS #### Point of Care testing , Hemoglobin (Bld) [Mass/Vol] 11.5 g/dL Low 11.8-15.4 [facility] Comment on above: Performed By: #### G KYAWLS #### Point of Care testing , Lymphocytes (Bld) [#/Vol] 0.8 10*3/uL Low 1.00-4.8 [facility] Comment on above: Performed By: #### G KYAWLS #### Point of Care testing , Lymphocytes/100 WBC (Bld) 11.6 % Normal . [facility] Comment on above: Performed By: #### G KYAWLS #### Point of Care testing , MCH (RBC) [Entitic mass] 26.0 pg Normal 24.7-34.3 [facility] Comment on above: Performed By: #### Jodi CARDLS #### Point of Care testing , MCV (RBC) [Entitic vol] 80.2 fL Normal 80-100 [facility] Comment on above: Performed By: #### Jodi AHMADI #### Point of Care testing , Mean Corpuscular HGB Conc 32.5 g/dL Normal 32.0-35.0 [facility] Comment on above: Performed By: #### G KYAWLS #### Point of Care testing , Monocytes (Bld) [#/Vol] 0.6 10*3/uL Normal 0.0-0.8 [facility] Comment on above: Performed By: #### G KYAWLS #### Point of Care testing , Monocytes/100 WBC (Bld) 17.78 % Normal 0.00-20.00 [facility] Comment on above: Performed By: #### G KYAWLS #### Point of Care testing , Monocytes/100 WBC (Bld) 8.3 % Normal . [facility] Comment on above: Performed By: #### G KYAWLS #### Point of Care testing , Neutrophils (Bld) [#/Vol] 5.1 10*3/uL Normal 1.8-7.7 [facility] Comment on above: Performed By: #### G DAIANA #### Point of Care testing , Neutrophils/100 WBC (Bld) 73.8 % Normal . [facility] Comment on above: Performed By: #### G DAIANA #### Point of Care testing , NRBC% 0.1 /100{WBC} Normal 0-0.5 [facility] Comment on above: Performed By: #### G KYAWLS #### Point of Care testing , Platelet mean volume (Bld) [Entitic vol] 7.8 fL Normal 6.3-10.7 [facility] Comment on above: Performed By: #### G DAIANA #### Point of Care testing , Platelets (Bld) [#/Vol] 228 10*3/uL Normal 150-450 [facility] Comment on above: Performed By: #### G DAIANA #### Point of Care testing , RBC (Bld) [#/Vol] 4.43 10*6/uL Normal 3.60-5.00 [facility] Comment on above: Performed By: #### G DAIANA #### Point of Care testing , WBC (Bld) [#/Vol] 7.0 10*3/uL Normal 3.8-11.[address] [facility] Comment on above: Performed By: #### G DAIANA #### Point of Care testing , Comprehensive Metabolic Pane jeremy 12-01-2022 Albumin [Mass/Vol] 4.2 g/dL Normal 3.5-5.[address] [facility] Comment on above: Performed By: #### L ACTIC, CMP, CBC #### [facility] [address] [place] [address] [place] Albumin/Globulin [Mass ratio] 1.6 {ratio} Normal [facility] Comment on above: Performed By: #### L ACTIC, CMP, CBC #### [facility] [address] [place] [address] [place] ALP [Catalytic activity/Vol] 71 U/L Normal 34-104 [facility] Comment on above: Performed By: #### L ACTIC, CMP, CBC #### [facility] [address] [place] [address] [place] ALT [Catalytic activity/Vol] 21 U/L Normal 7-52 [facility] Comment on above: Performed By: #### L ACTIC, CMP, CBC #### [facility] [address] [place] [address] [place] Anion gap [Moles/Vol] 11.3 mmol/L Normal 6.0-15.0 [facility] Comment on above: Performed By: #### L ACTIC, CMP, CBC #### [facility] [address] [place] [id number] [place] AST [Catalytic activity/Vol] 26 U/L Normal 13-39 [facility] Comment on above: Performed By: #### L ACTIC, CMP, CBC #### [facility] [address] [place] [id number] [facility] Bilirubin [Mass/Vol] 0.3 mg/dL Normal 0.3-1.0 [facility] Comment on above: Performed By: #### L ACTIC, CMP, CBC #### [facility] [address] [place] [id number] [place] Calcium [Mass/Vol] 8.9 mg/dL Normal 8.6-10.[address] [facility] Comment on above: Performed By: #### L ACTIC, CMP, CBC #### [facility] [address] [place] [id number] [place] Chloride [Moles/Vol] 109 mmol/L High 98-107 [facility] Comment on above: Performed By: #### L ACTIC, CMP, CBC #### [facility] [address] [place] [id number] [place] CO2 [Moles/Vol] 24.3 mmol/L Normal 21.0-31.0 [facility] Comment on above: Performed By: #### L ACTIC, CMP, CBC #### [facility] [address] [place] [id number] [place] Creatinine [Mass/Vol] 0.84 mg/dL Normal 0.60-1.20 [facility] Comment on above: Performed By: #### L ACTIC, CMP, CBC #### [facility] [address] [place] [address] [place] Creatinine Clr Calc Pharmacy 95.60 [facility] Comment on above: Result Comment: PERF ORMED BY: [facility] [address] [place] [address] PATHOLOGIST [employer] PRESSER IAN ACE M.D. Performed By: #### L ACTIC, CMP, CBC #### [facility] [address] [place] [address] [place] GFR/1.73 sq M.predicted MDRD (S/P/Bld) [Vol rate/Area] mL/min/{1.73_m2} [facility] Comment on above: Performed By: #### L ACTIC, CMP, CBC #### [address] Globulin (S) [Mass/Vol] 2.6 g/dL [facility] Comment on above: Performed By: #### L ACTIC, CMP, CBC #### [address] Glucose [Mass/Vol] 89 mg/dL Normal 70-[address] [facility] Comment on above: Result Comment: [place] Glucose Reference Range is dependent on time and content of last meal. Glucose of more than 200 mg/dL in a nonstressed, ambulatory subject supports the diagnosis of Diabetes Mellitus. ADA recommended reference range Performed By: #### L ACTIC, CMP, CBC #### [facility] [address] Potassium [Moles/Vol] 3.6 mmol/L Normal 3.5-5.1 [facility] Comment on above: Performed By: #### L ACTIC, CMP, CBC #### [facility] [address] Protein [Mass/Vol] 6.8 g/dL Normal 6.4-8.[address] [facility] Comment on above: Performed By: #### L ACTIC, CMP, CBC #### [facility] [address] Sodium [Moles/Vol] 141 mmol/L Normal 136-[address] [facility] Comment on above: Performed By: #### L ACTPERCY, CMP, CBC #### [facility] [address] Urea nitrogen [Mass/Vol] 24 mg/dL Normal 7-25 [facility] Comment on above: Performed By: #### L ACTPERCY, CMP, CBC #### [facility] [address] Creatinine [Mass/volume] in Serum or PlasmaOrdered By: Laith Warner on 12-01-2022 Creatinine [Mass/Vol] 0.84 mg/dL 0.60-1.20 [facility] Eosinophils Auto (Bld) [#/Vo l]Ordered By: Laith Warner on 12-01-2022 Eosinophils (Bld) [#/Vol] 0.4 10*3/uL 0.0-0.45 [facility] Eosinophils/100 WBC Auto (Bl d)Ordered By: Laith Warner on 12-01-2022 Eosinophils/100 WBC (Bld) 5.7 % . [facility] Erythrocyte distribution wid th Auto (RBC) [Ratio]Ordered By: Laith Warner on 12-01-2022 Erythrocyte distribution width (RBC) [Ratio] 17.4 % 11.9-15.3 [facility] Globulin Calc (S) [Mass/Vol] Ordered By: Laith Warner on 12-01-2022 Globulin (S) [Mass/Vol] 2.6 g/dL [facility] Glucose [Mass/volume] in Ser um or PlasmaOrdered By: Laith Warner on 12-01-2022 Glucose [Mass/Vol] 89 mg/dL 70-[address] [facility] Comment on above: ADA recommended refe rence rangeRandom Glucose Reference Range is dependent on time and content of last meal. Glucose of more than 200 mg/dL in a nonstressed, ambulatory subject supports the diagnosis of Diabetes Mellitus. Hematocrit Auto (Bld) [Volum e fraction]Ordered By: Laith Warner on 12-01-2022 Hematocrit (Bld) [Volume fraction] 35.5 % 34.0-46.4 [facility] Hemoglobin [Mass/volume] in BloodOrdered By: Laith Warner on 12-01-2022 Hemoglobin (Bld) [Mass/Vol] 11.5 g/dL 11.8-15.4 [facility] Lactate [Moles/volume] in Se rum or PlasmaOrdered By: Laith Warner on 12-01-2022 Lactate [Moles/Vol] 0.5 mmol/L 0.5-2.2 [facility] Lactic Acidon 12-01-2022 Lactate [Moles/Vol] 0.5 mmol/L Normal 0.5-2.2 [facility] Comment on above: Result Comment: PERF ORMED BY: [facility] [address] [place] [address] PATHOLOGIST DEL[employer] PRESSER IAN ACE M.D. Performed By: #### G LULS #### Point of Care testing , Leukocytes [#/volume] correc julia for nucleated erythrocytes in Blood by Automated counOrdered By: Laith Warner on 12-01-2022 WBC corrected for nucl RBC Auto (Bld) [#/Vol] 7.0 10*3/uL 3.8-11.6 [facility] Lymphocytes Auto (Bld) [#/Vo l]Ordered By: Laith Warner on 12-01-2022 Lymphocytes (Bld) [#/Vol] 0.8 10*3/uL 1.00-4.8 [facility] Lymphocytes/100 WBC Auto (Bl d)Ordered By: Laith Warner on 12-01-2022 Lymphocytes/100 WBC (Bld) 11.6 % . [facility] MCH Auto (RBC) [Entitic mass ]Ordered By: Laith Warner on 12-01-2022 MCH (RBC) [Entitic mass] 26.0 pg 24.7-34.3 [facility] MCHC Auto (RBC) [Mass/Vol]Or dered By: Laith Warner on 12-01-2022 MCHC (RBC) [Mass/Vol] 32.5 g/dL 32.0-35.0 [facility] MCV Auto (RBC) [Entitic vol] Ordered By: Laith Warner on 12-01-2022 MCV (RBC) [Entitic vol] 80.2 fL 80-100 [facility] Monocyte distribution width [Entitic volume] in Blood by AutomatedOrdered By: Laith Warner on 12-01-2022 Monocyte distribution width Auto (Bld) [Entitic vol] 17.78 % 0.00-20.00 [facility] Monocytes Auto (Bld) [#/Vol] Ordered By: Laith Warner on 12-01-2022 Monocytes (Bld) [#/Vol] 0.6 10*3/uL 0.0-0.8 [facility] Monocytes/100 WBC Auto (Bld) Ordered By: Laith Warner on 12-01-2022 Monocytes/100 WBC (Bld) 8.3 % . [facility] Neutrophils Auto (Bld) [#/Vo l]Ordered By: Laith Warner on 12-01-2022 Neutrophils (Bld) [#/Vol] 5.1 10*3/uL 1.8-7.7 [facility] Neutrophils/100 WBC Auto (Bl d)Ordered By: Laith Warner on 12-01-2022 Neutrophils/100 WBC (Bld) 73.8 % . [facility] No Panel InformationOrdered By: Laith Warner on 12-01-2022 Estimated GFR (CKD-EPI) > 60.0 mL/Min [facility] Creatinine Clearance (Chem 95.60 [facility] Nucleated erythrocytes [Pres ence] in Blood by Automated countOrdered By: Laith Warner on 12-01-2022 Nucleated RBC Auto Ql (Bld) 0.1 /100{WBC} 0-0.5 [facility] Platelet mean volume Auto (B ld) [Entitic vol]Ordered By: Laith Warner on 12-01-2022 Platelet mean volume (Bld) [Entitic vol] 7.8 fL 6.3-10.7 [facility] Platelets Auto (Bld) [#/Vol] Ordered By: Laith Warner on 12-01-2022 Platelets (Bld) [#/Vol] 228 10*3/uL 150-450 [facility] Potassium [Moles/volume] in Serum or PlasmaOrdered By: Laith Warner on 12-01-2022 Potassium [Moles/Vol] 3.6 mmol/L 3.5-5.1 [facility] Protein [Mass/volume] in Ser um or PlasmaOrdered By: Laith Warner on 12-01-2022 Protein [Mass/Vol] 6.8 g/dL 6.4-8.[address] [facility] RBC Auto (Bld) [#/Vol]Ordere d By: Laith Warner on 12-01-2022 RBC (Bld) [#/Vol] 4.43 10*6/uL 3.60-5.00 [facility] Serum or plasma albumin/glob ulin mass ratioOrdered By: Laith Warner on 12-01-2022 Albumin/Globulin [Mass ratio] 1.6 {ratio} [facility] Serum or plasma anion gap de terminationOrdered By: Laith Warner on 12-01-2022 Anion gap [Moles/Vol] 11.3 mmol/L 6.0-15.0 [facility] Sodium [Moles/volume] in Ser um or PlasmaOrdered By: Laith Warner on 12-01-2022 Sodium [Moles/Vol] 141 mmol/L 136-[address] [facility] Urea nitrogen [Mass/volume] in Serum or PlasmaOrdered By: Laith Warner on 12-01-2022 Urea nitrogen [Mass/Vol] 24 mg/dL 7-25 [facility] WBC Auto (Bld) [#/Vol]Ordere d By: Laith Warner on 12-01-2022 WBC (Bld) [#/Vol] 7.0 10*3/uL 3.8-11.[address] [facility] Alanine aminotransferase [En zymatic activity/volume] in Serum or PlasmaOrdered By: Jhonatan Crowell on 11-05-2022 ALT [Catalytic activity/Vol] 20 U/L 7-52 [facility] Albumin [Mass/volume] in Ser um or Plasma by Bromocresol green (BCG) dye binding methoOrdered By: Jhonatan Crowell on 11-05-2022 Albumin BCG dye [Mass/Vol] 3.9 g/dL 3.5-5.7 [facility] Alkaline phosphatase [Enzyma tic activity/volume] in Serum or PlasmaOrdered By: Jhonatan Crowell on 11-05-2022 ALP [Catalytic activity/Vol] 77 U/L 34-104 [facility] Aspartate aminotransferase [ Enzymatic activity/volume] in Serum or PlasmaOrdered By: Jhonatan Crowell on 11-05-2022 AST [Catalytic activity/Vol] 22 U/L 13-39 [facility] Bacterial blood cultureOrder ed By: Jhonatan Crowell on 11-05-2022 Bacteria identified Cx Nom (Bld) NO GROWTH 5 DAYS [facility] Basophils Auto (Bld) [#/Vol] Ordered By: Jhonatan Crowell on 11-05-2022 Basophils (Bld) [#/Vol] 0.0 10*3/uL 0.0-0.2 [facility] Basophils/100 WBC Auto (Bld) Ordered By: Jhonatan Crowell on 11-05-2022 Basophils/100 WBC (Bld) 0.6 % . [facility] Bilirubin.total [Mass/volume ] in Serum or PlasmaOrdered By: Jhonatan Crowell on 11-05-2022 Bilirubin [Mass/Vol] 0.5 mg/dL 0.3-1.0 [facility] Blood Cultureon 11-05-2022 Bacteria identified Cx Nom (Bld) NO GROWTH 5 DAYS PERFORMED BY: [place] [address] PATHOLOGIST [employer] IAN ACE M.D. [facility] Comment on above: Performed By: #### L ACTIC, CMP, CBC #### [facility] [address] [place] [address] Bacteria identified Cx Nom (Bld) NO GROWTH 5 DAYS PERFORMED BY: [place] [address] PATHOLOGIST [employer] IAN ACE M.D. [facility] Comment on above: Performed By: #### L ACTIC, CMP, CBC #### [facility] [address] [place] [address] [place] Calcium [Mass/volume] in Ser um or PlasmaOrdered By: Jhonatan Crowell on 11-05-2022 Calcium [Mass/Vol] 8.9 mg/dL 8.6-10.[address] [facility] Carbon dioxide, total [Moles /volume] in Serum or PlasmaOrdered By: Jhonatan Crowell on 11-05-2022 CO2 [Moles/Vol] 28.5 mmol/L 21.0-31.0 [facility] Chloride [Moles/volume] in S marivel or PlasmaOrdered By: Jhonatan Crowell on 11-05-2022 Chloride [Moles/Vol] 106 mmol/L 98-107 [facility] Complete Blood Count Auto Di ffon 11-05-2022 Basophils (Bld) [#/Vol] 0.0 10*3/uL Normal 0.0-0.2 [facility] Comment on above: Result Comment: PERF ORMED BY: [place] [address] PATHOLOGIST [employer] IAN ACE M.D. Performed By: #### L ACTIC, CMP, CBC #### [address] Basophils/100 WBC (Bld) 0.6 % Normal . [facility] Comment on above: Performed By: #### L ACTIC, CMP, CBC #### [facility] [address] [place] [address] Eosinophils (Bld) [#/Vol] 0.2 10*3/uL Normal 0.0-0.45 [facility] Comment on above: Performed By: #### L ACTIC, CMP, CBC #### [place] [address] [place] Eosinophils/100 WBC (Bld) 2.9 % Normal . [facility] Comment on above: Performed By: #### L ACTIC, CMP, CBC #### [facility] [address] [place] [address] Erythrocyte distribution width (RBC) [Ratio] 16.7 % High 11.9-15.3 [facility] Comment on above: Performed By: #### L ACTIC, CMP, CBC #### [facility] [address] [place] [address] Hematocrit (Bld) [Volume fraction] 37.5 % Normal 34.0-46.4 [facility] Comment on above: Performed By: #### L ACTIC, CMP, CBC #### [facility] [address] Hemoglobin (Bld) [Mass/Vol] 12.2 g/dL Normal 11.8-15.4 [facility] Comment on above: Performed By: #### L ACTIC, CMP, CBC #### [facility] [address] Lymphocytes (Bld) [#/Vol] 0.8 10*3/uL Low 1.00-4.8 [facility] Comment on above: Performed By: #### L ACTIC, CMP, CBC #### [facility] [address] Lymphocytes/100 WBC (Bld) 11.3 % Normal . [facility] Comment on above: Performed By: #### L ACTIC, CMP, CBC #### [address] MCH (RBC) [Entitic mass] 25.8 pg Normal 24.7-34.3 [facility] Comment on above: Performed By: #### L ACTIC, CMP, CBC #### [address] MCV (RBC) [Entitic vol] 79.3 fL Low 80-100 [facility] Comment on above: Performed By: #### L ACTIC, CMP, CBC #### [address] Mean Corpuscular HGB Conc 32.5 g/dL Normal 32.0-35.0 [facility] Comment on above: Performed By: #### L ACTIC, CMP, CBC #### [facility] [address] [place] [address] [place] Monocytes (Bld) [#/Vol] 0.5 10*3/uL Normal 0.0-0.8 [facility] Comment on above: Performed By: #### L ACTIC, CMP, CBC #### [facility] [address] [place] [address] [place] Monocytes/100 WBC (Bld) 16.42 % Normal 0.00-20.00 [facility] Comment on above: Performed By: #### L ACTIC, CMP, CBC #### [facility] [address] [place] [address] [place] Monocytes/100 WBC (Bld) 7.1 % Normal . [facility] Comment on above: Performed By: #### L ACTIC, CMP, CBC #### [facility] [address] Neutrophils (Bld) [#/Vol] 5.4 10*3/uL Normal 1.8-7.7 [facility] Comment on above: Performed By: #### L ACTIC, CMP, CBC #### [facility] [address] Neutrophils/100 WBC (Bld) 78.1 % Normal . [facility] Comment on above: Performed By: #### L ACTIC, CMP, CBC #### [address] NRBC% 0.1 /100{WBC} Normal 0-0.5 [facility] Comment on above: Performed By: #### L ACTIC, CMP, CBC #### [address] Platelet mean volume (Bld) [Entitic vol] 8.1 fL Normal 6.3-10.7 [facility] Comment on above: Performed By: #### L ACTIC, CMP, CBC #### [facility] [address] [place] [address] [place] Platelets (Bld) [#/Vol] 233 10*3/uL Normal 150-450 [facility] Comment on above: Performed By: #### L ACTIC, CMP, CBC #### [facility] [address] [place] [address] [place] RBC (Bld) [#/Vol] 4.73 10*6/uL Normal 3.60-5.00 [facility] Comment on above: Performed By: #### L ACTIC, CMP, CBC #### [place] [address] [place] WBC (Bld) [#/Vol] 6.9 10*3/uL Normal 3.8-11.[address] [facility] Comment on above: Performed By: #### L ACTPERCY CMP, CBC #### [facility] [address] [place] [address] Comprehensive Metabolic Pane jeremy 11-05-2022 Albumin [Mass/Vol] 3.9 g/dL Normal 3.5-5.[address] [facility] Comment on above: Performed By: #### L ACTPERCY CMP, CBC #### [address] Albumin/Globulin [Mass ratio] 1.3 {ratio} Normal [facility] Comment on above: Performed By: #### L ACTPERCY CMP, CBC #### [address] ALP [Catalytic activity/Vol] 77 U/L Normal 34-104 [facility] Comment on above: Performed By: #### L ACTPERCY CMP, CBC #### [address] ALT [Catalytic activity/Vol] 20 U/L Normal 7-52 [facility] Comment on above: Performed By: #### L ACTPERCY CMP, CBC #### [address] Anion gap [Moles/Vol] 10.6 mmol/L Normal 6.0-15.0 [facility] Comment on above: Performed By: #### L ACTPERCY CMP, CBC #### [facility] [address] [place] [address] AST [Catalytic activity/Vol] 22 U/L Normal 13-39 [facility] Comment on above: Performed By: #### L ACTPERCY CMP, CBC #### [facility] [address] [place] [address] Bilirubin [Mass/Vol] 0.5 mg/dL Normal 0.3-1.0 [facility] Comment on above: Performed By: #### L ACTPERCY CMP, CBC #### [facility] [address] Calcium [Mass/Vol] 8.9 mg/dL Normal 8.6-10.[address] [facility] Comment on above: Performed By: #### L ACTIC, CMP, CBC #### [facility] [address] Chloride [Moles/Vol] 106 mmol/L Normal 98-107 [facility] Comment on above: Performed By: #### L ACTIC, CMP, CBC #### [facility] [address] CO2 [Moles/Vol] 28.5 mmol/L Normal 21.0-31.0 [facility] Comment on above: Performed By: #### L ACTIC, CMP, CBC #### [address] Creatinine [Mass/Vol] 0.71 mg/dL Normal 0.60-1.20 [facility] Comment on above: Performed By: #### L ACTIC, CMP, CBC #### [facility] [address] Creatinine Clr Calc Pharmacy 100.16 [facility] Comment on above: Result Comment: PERF ORMED BY: [place] [address] PATHOLOGIST [employer] IAN ACE M.D. Performed By: #### L ACTIC, CMP, CBC #### [address] GFR/1.73 sq M.predicted MDRD (S/P/Bld) [Vol rate/Area] mL/min/{1.73_m2} [facility] Comment on above: Performed By: #### L ACTIC, CMP, CBC #### [facility] [address] Globulin (S) [Mass/Vol] 3.0 g/dL [facility] Comment on above: Performed By: #### L ACTIC, CMP, CBC #### [address] Glucose [Mass/Vol] 92 mg/dL Normal 70-[address] [facility] Comment on above: Result Comment: [place] Glucose Reference Range is dependent on time and content of last meal. Glucose of more than 200 mg/dL in a nonstressed, ambulatory subject supports the diagnosis of Diabetes Mellitus. ADA recommended reference range Performed By: #### L ACTIC, CMP, CBC #### [facility] [address] [place] [address] Potassium [Moles/Vol] 4.1 mmol/L Normal 3.5-5.1 [facility] Comment on above: Performed By: #### L ACTIC CMP, CBC #### [address] Protein [Mass/Vol] 6.9 g/dL Normal 6.4-8.[address] [facility] Comment on above: Performed By: #### L ACTIC CMP, CBC #### [address] Sodium [Moles/Vol] 141 mmol/L Normal 136-[address] [facility] Comment on above: Performed By: #### L ACTIC CMP, CBC #### [address] Urea nitrogen [Mass/Vol] 18 mg/dL Normal 7-25 [facility] Comment on above: Performed By: #### L ACTIC, CMP, CBC #### [facility] [address] [place] [address] [place] Creatinine [Mass/volume] in Serum or PlasmaOrdered By: Jhonatan Crowell on 11-05-2022 Creatinine [Mass/Vol] 0.71 mg/dL 0.60-1.20 [facility] Eosinophils Auto (Bld) [#/Vo l]Ordered By: Jhonatan Crowell on 11-05-2022 Eosinophils (Bld) [#/Vol] 0.2 10*3/uL 0.0-0.45 [facility] Eosinophils/100 WBC Auto (Bl d)Ordered By: Jhonatan Crowell on 11-05-2022 Eosinophils/100 WBC (Bld) 2.9 % . [facility] Erythrocyte distribution wid th Auto (RBC) [Ratio]Ordered By: Jhonatan Crowell on 11-05-2022 Erythrocyte distribution width (RBC) [Ratio] 16.7 % 11.9-15.3 [facility] Globulin Calc (S) [Mass/Vol] Ordered By: Jhonatan Crowell on 11-05-2022 Globulin (S) [Mass/Vol] 3.0 g/dL [facility] Glucose [Mass/volume] in Ser um or PlasmaOrdered By: Jhonatan Crowell on 11-05-2022 Glucose [Mass/Vol] 92 mg/dL 70-[address] [facility] Comment on above: ADA recommended refe rence rangeRandom Glucose Reference Range is dependent on time and content of last meal. Glucose of more than 200 mg/dL in a nonstressed, ambulatory subject supports the diagnosis of Diabetes Mellitus. Hematocrit Auto (Bld) [Volum e fraction]Ordered By: Jhonatan Crowell on 11-05-2022 Hematocrit (Bld) [Volume fraction] 37.5 % 34.0-46.4 [facility] Hemoglobin [Mass/volume] in BloodOrdered By: Jhonatan Crowell on 11-05-2022 Hemoglobin (Bld) [Mass/Vol] 12.2 g/dL 11.8-15.4 [facility] Leukocytes [#/volume] correc julia for nucleated erythrocytes in Blood by Automated counOrdered By: Jhonatan Crowell on 11-05-2022 WBC corrected for nucl RBC Auto (Bld) [#/Vol] 6.9 10*3/uL 3.8-11.6 [facility] Lymphocytes Auto (Bld) [#/Vo l]Ordered By: Jhonatan Crowell on 11-05-2022 Lymphocytes (Bld) [#/Vol] 0.8 10*3/uL 1.00-4.8 [facility] Lymphocytes/100 WBC Auto (Bl d)Ordered By: Jhonatan Crowell on 11-05-2022 Lymphocytes/100 WBC (Bld) 11.3 % . [facility] MCH Auto (RBC) [Entitic mass ]Ordered By: Jhonatan Crowell on 11-05-2022 MCH (RBC) [Entitic mass] 25.8 pg 24.7-34.3 [facility] MCHC Auto (RBC) [Mass/Vol]Or dered By: Jhonatan Crowell on 11-05-2022 MCHC (RBC) [Mass/Vol] 32.5 g/dL 32.0-35.0 [facility] MCV Auto (RBC) [Entitic vol] Ordered By: Jhonatan Crowell on 11-05-2022 MCV (RBC) [Entitic vol] 79.3 fL 80-100 [facility] Monocyte distribution width [Entitic volume] in Blood by AutomatedOrdered By: Jhonatan Crowell on 11-05-2022 Monocyte distribution width Auto (Bld) [Entitic vol] 16.42 % 0.00-20.00 [facility] Monocytes Auto (Bld) [#/Vol] Ordered By: Jhonatan Crowell on 11-05-2022 Monocytes (Bld) [#/Vol] 0.5 10*3/uL 0.0-0.8 [facility] Monocytes/100 WBC Auto (Bld) Ordered By: Jhonatan Crowell on 11-05-2022 Monocytes/100 WBC (Bld) 7.1 % . [facility] Neutrophils Auto (Bld) [#/Vo l]Ordered By: Jhonatan Crowell on 11-05-2022 Neutrophils (Bld) [#/Vol] 5.4 10*3/uL 1.8-7.7 [facility] Neutrophils/100 WBC Auto (Bl d)Ordered By: Jhonatan Crowell on 11-05-2022 Neutrophils/100 WBC (Bld) 78.1 % . [facility] No Panel InformationOrdered By: Jhonatan Crowell on 11-05-2022 Estimated GFR (CKD-EPI) > 60.0 mL/Min [facility] Creatinine Clearance (Chem 100.16 [facility] Nucleated erythrocytes [Pres ence] in Blood by Automated countOrdered By: Jhonatan Crowell on 11-05-2022 Nucleated RBC Auto Ql (Bld) 0.1 /100{WBC} 0-0.5 [facility] Platelet mean volume Auto (B ld) [Entitic vol]Ordered By: Jhonatan Crowell on 11-05-2022 Platelet mean volume (Bld) [Entitic vol] 8.1 fL 6.3-10.7 [facility] Platelets Auto (Bld) [#/Vol] Ordered By: Jhonatan Crowell on 11-05-2022 Platelets (Bld) [#/Vol] 233 10*3/uL 150-450 [facility] Potassium [Moles/volume] in Serum or PlasmaOrdered By: Jhonatan Crowell on 11-05-2022 Potassium [Moles/Vol] 4.1 mmol/L 3.5-5.1 [facility] Protein [Mass/volume] in Ser um or PlasmaOrdered By: Jhonatan Crowell on 11-05-2022 Protein [Mass/Vol] 6.9 g/dL 6.4-8.[address] [facility] RBC Auto (Bld) [#/Vol]Ordere d By: Jhonatan Crowell on 11-05-2022 RBC (Bld) [#/Vol] 4.73 10*6/uL 3.60-5.00 [facility] Serum or plasma albumin/glob ulin mass ratioOrdered By: Jhonatan Crowell on 11-05-2022 Albumin/Globulin [Mass ratio] 1.3 {ratio} [facility] Serum or plasma anion gap de terminationOrdered By: Jhonatan Crowell on 11-05-2022 Anion gap [Moles/Vol] 10.6 mmol/L 6.0-15.0 [facility] Sodium [Moles/volume] in Ser um or PlasmaOrdered By: Jhonatan Crowell on 11-05-2022 Sodium [Moles/Vol] 141 mmol/L 136-[address] [facility] Urea nitrogen [Mass/volume] in Serum or PlasmaOrdered By: Jhonatan Crowell on 11-05-2022 Urea nitrogen [Mass/Vol] 18 mg/dL 7-25 [facility] WBC Auto (Bld) [#/Vol]Ordere d By: Jhonatan Crowell on 11-05-2022 WBC (Bld) [#/Vol] 6.9 10*3/uL 3.8-11.[address] [facility] XR tibia fibula LT 2V*on XR tibia fibula LT 2V* [facility] [place] [address] XRay Report Signed Patient: [place] Cesar MR#: [id number] : 1955 Acct:[id number] Age/Sex: 66 / F ADM Date: 11/05/22 [...] Padmini Bethea M.D.11/05/2022 12:27 PM Dictation Location: [place] [address] Transcribed By: [facility] 11/05/22 1227 Dictated By: Padmini Bethea MD 11/05/22 1225 Signed By: 11/05/22 1227 Normal [facility] Alanine aminotransferase [En zymatic activity/volume] in Serum or PlasmaOrdered By: Gerald Theodore on 10-12-2022 ALT [Catalytic activity/Vol] 20 U/L 7-52 [facility] Albumin [Mass/volume] in Ser um or Plasma by Bromocresol green (BCG) dye binding methoOrdered By: Gerald Theodore on 10-12-2022 Albumin BCG dye [Mass/Vol] 3.5 g/dL 3.5-5.7 [facility] Alkaline phosphatase [Enzyma tic activity/volume] in Serum or PlasmaOrdered By: Gerald Theodore on 10-12-2022 ALP [Catalytic activity/Vol] 67 U/L 34-104 [facility] Aspartate aminotransferase [ Enzymatic activity/volume] in Serum or PlasmaOrdered By: Gerald Theodore on 10-12-2022 AST [Catalytic activity/Vol] 23 U/L 13-39 [facility] Bacterial blood cultureOrder ed By: Gerald Theodore on 10-12-2022 Bacteria identified Cx Nom (Bld) NO GROWTH 5 DAYS [facility] Basophils Auto (Bld) [#/Vol] Ordered By: Gerald Theodore on 10-12-2022 Basophils (Bld) [#/Vol] 0.0 10*3/uL 0.0-0.2 [facility] Basophils/100 WBC Auto (Bld) Ordered By: Gerald Theodore on 10-12-2022 Basophils/100 WBC (Bld) 0.5 % . [facility] Bilirubin.total [Mass/volume ] in Serum or PlasmaOrdered By: Gerald Theodore on 10-12-2022 Bilirubin [Mass/Vol] 0.4 mg/dL 0.3-1.0 [facility] Blood Cultureon 10-12-2022 Bacteria identified Cx Nom (Bld) NO GROWTH 5 DAYS PERFORMED BY: [place] [address] PATHOLOGIST [employer]ER IAN ACE M.D. [facility] Comment on above: Performed By: #### C UBLD, CMP, CBC #### [facility] [address] [place] [address] [place] C reactive protein [Mass/vol ume] in Serum or PlasmaOrdered By: Gerald Theodore on 10-12-2022 CRP [Mass/Vol] 1.7 mg/dL 0.0-0.5 [facility] C-Reactive Proteinon 023 C-Reactive Protein 1.7 mg/dL High 0.0-0.[address] [facility] Comment on above: Result Comment: PERF ORMED BY: [place] [address] PATHOLOGIST [employer] IAN ACE M.D. Performed By: #### C UBLD, CMP, CBC #### [facility] [address] [place], [place] [id number] [place] Calcium [Mass/volume] in Ser um or PlasmaOrdered By: Gerald Theodore on 10-12-2022 Calcium [Mass/Vol] 8.4 mg/dL 8.6-10.[address] [facility] Carbon dioxide, total [Moles /volume] in Serum or PlasmaOrdered By: Gerald Theodore on 10-12-2022 CO2 [Moles/Vol] 28.5 mmol/L 21.0-31.0 [facility] Chloride [Moles/volume] in S marivel or PlasmaOrdered By: Gerald Theodore on 10-12-2022 Chloride [Moles/Vol] 105 mmol/L 98-107 [facility] Complete Blood Count Auto Di ffon 10-12-2022 Basophils (Bld) [#/Vol] 0.0 10*3/uL Normal 0.0-0.2 [facility] Comment on above: Performed By: #### C UBLD, CMP, CBC #### [facility] [address] [place] [address] [place] Basophils/100 WBC (Bld) 0.5 % Normal . [facility] Comment on above: Performed By: #### C UBLD, CMP, CBC #### [facility] [address] [place] [address] [place] Eosinophils (Bld) [#/Vol] 0.2 10*3/uL Normal 0.0-0.45 [facility] Comment on above: Performed By: #### C UBLD, CMP, CBC #### [facility] [address] [place] [address] [place] Eosinophils/100 WBC (Bld) 1.8 % Normal . [facility] Comment on above: Performed By: #### C UBLD, CMP, CBC #### [facility] [address] [place] [address] [place] Erythrocyte distribution width (RBC) [Ratio] 16.3 % High 11.9-15.3 [facility] Comment on above: Performed By: #### C UBLD, CMP, CBC #### [facility] [address] [place] [address] [place] Hematocrit (Bld) [Volume fraction] 35.2 % Normal 34.0-46.4 [facility] Comment on above: Performed By: #### C UBLD, CMP, CBC #### [facility] [address] Hemoglobin (Bld) [Mass/Vol] 11.2 g/dL Low 11.8-15.4 [facility] Comment on above: Performed By: #### C UBLD, CMP, CBC #### [address] Lymphocytes (Bld) [#/Vol] 0.8 10*3/uL Low 1.00-4.8 [facility] Comment on above: Performed By: #### C UBLD, CMP, CBC #### [address] Lymphocytes/100 WBC (Bld) 9.6 % Normal . [facility] Comment on above: Performed By: #### C UBLD, CMP, CBC #### [address] MCH (RBC) [Entitic mass] 25.5 pg Normal 24.7-34.3 [facility] Comment on above: Performed By: #### C UBLD, CMP, CBC #### [address] MCV (RBC) [Entitic vol] 80.1 fL Normal 80-100 [facility] Comment on above: Performed By: #### C UBLD, CMP, CBC #### [address] Mean Corpuscular HGB Conc 31.8 g/dL Low 32.0-35.0 [facility] Comment on above: Performed By: #### C UBLD, CMP, CBC #### [address] Monocytes (Bld) [#/Vol] 0.7 10*3/uL Normal 0.0-0.8 [facility] Comment on above: Performed By: #### C UBLD, CMP, CBC #### [place] [address] [place] Monocytes/100 WBC (Bld) 14.89 % Normal 0.00-20.00 [facility] Comment on above: Performed By: #### C UBLD, CMP, CBC #### [address] Monocytes/100 WBC (Bld) 7.9 % Normal . [facility] Comment on above: Performed By: #### C UBLD, CMP, CBC #### [address] Neutrophils (Bld) [#/Vol] 6.9 10*3/uL Normal 1.8-7.7 [facility] Comment on above: Performed By: #### C UBLD, CMP, CBC #### [address] Neutrophils/100 WBC (Bld) 80.2 % Normal . [facility] Comment on above: Performed By: #### C UBLD, CMP, CBC #### [address] NRBC% 0.1 /100{WBC} Normal 0-0.5 [facility] Comment on above: Performed By: #### C UBLD, CMP, CBC #### [address] Platelet mean volume (Bld) [Entitic vol] 7.6 fL Normal 6.3-10.7 [facility] Comment on above: Performed By: #### C UBLD, CMP, CBC #### [address] Platelets (Bld) [#/Vol] 215 10*3/uL Normal 150-450 [facility] Comment on above: Performed By: #### C UBLD, CMP, CBC #### [address] RBC (Bld) [#/Vol] 4.39 10*6/uL Normal 3.60-5.00 [facility] Comment on above: Performed By: #### C UBLD, CMP, CBC #### [place] [address] WBC (Bld) [#/Vol] 8.6 10*3/uL Normal 3.8-11.[address] [facility] Comment on above: Performed By: #### C UBLD, CMP, CBC #### [address] Comprehensive Metabolic Pane jeremy 10-12-2022 Albumin [Mass/Vol] 3.5 g/dL Normal 3.5-5.[address] [facility] Comment on above: Performed By: #### C UBLD, CMP, CBC #### [address] Albumin/Globulin [Mass ratio] 1.4 {ratio} Normal [facility] Comment on above: Performed By: #### C UBLD, CMP, CBC #### [address] ALP [Catalytic activity/Vol] 67 U/L Normal 34-104 [facility] Comment on above: Performed By: #### C UBLD, CMP, CBC #### [address] ALT [Catalytic activity/Vol] 20 U/L Normal 7-52 [facility] Comment on above: Performed By: #### C UBLD, CMP, CBC #### [address] Anion gap [Moles/Vol] 11.1 mmol/L Normal 6.0-15.0 [facility] Comment on above: Performed By: #### C UBLD, CMP, CBC #### [address] AST [Catalytic activity/Vol] 23 U/L Normal 13-39 [facility] Comment on above: Performed By: #### C UBLD, CMP, CBC #### [address] Bilirubin [Mass/Vol] 0.4 mg/dL Normal 0.3-1.0 [facility] Comment on above: Performed By: #### C UBLD, CMP, CBC #### [facility] [address] [place] [address] [place] Calcium [Mass/Vol] 8.4 mg/dL Low 8.6-10.[address] [facility] Comment on above: Performed By: #### C UBLD, CMP, CBC #### [facility] [address] [place] [address] [place] Chloride [Moles/Vol] 105 mmol/L Normal 98-107 [facility] Comment on above: Performed By: #### C UBLD, CMP, CBC #### [facility] [address] CO2 [Moles/Vol] 28.5 mmol/L Normal 21.0-31.0 [facility] Comment on above: Performed By: #### C UBLD, CMP, CBC #### [facility] [address] [place] [address] [place] Creatinine [Mass/Vol] 0.69 mg/dL Normal 0.60-1.20 [facility] Comment on above: Performed By: #### C UBLD, CMP, CBC #### [facility] [address] [place] [address] [place] Creatinine Clr Calc Pharmacy 101.06 [facility] Comment on above: Performed By: #### C UBLD, CMP, CBC #### [facility] [address] [place] [address] [place] GFR/1.73 sq M.predicted MDRD (S/P/Bld) [Vol rate/Area] mL/min/{1.73_m2} [facility] Comment on above: Performed By: #### C UBLD, CMP, CBC #### [facility] [address] [place] [address] [place] Globulin (S) [Mass/Vol] 2.5 g/dL [facility] Comment on above: Performed By: #### C UBLD, CMP, CBC #### [facility] [address] [place] [id number] [place] Glucose [Mass/Vol] 92 mg/dL Normal 70-100 [facility] Comment on above: Result Comment: Marely murillo Glucose Reference Range is dependent on time and content of last meal. Glucose of more than 200 mg/dL in a nonstressed, ambulatory subject supports the diagnosis of Diabetes Mellitus. ADA recommended reference range Performed By: #### C UBLD, CMP, CBC #### [facility] [address] Potassium [Moles/Vol] 3.6 mmol/L Normal 3.5-5.1 [facility] Comment on above: Performed By: #### C UBLD, CMP, CBC #### [facility] [address] Protein [Mass/Vol] 6.0 g/dL Low 6.4-8.[address] [facility] Comment on above: Performed By: #### C UBLD, CMP, CBC #### [facility] [address] Sodium [Moles/Vol] 141 mmol/L Normal 136-[address] [facility] Comment on above: Performed By: #### C UBLD, CMP, CBC #### [facility] [address] [place] [address] [place] Urea nitrogen [Mass/Vol] 20 mg/dL Normal 7-25 [facility] Comment on above: Performed By: #### C UBLD, CMP, CBC #### [facility] [address] [place] [address] [place] Creatinine [Mass/volume] in Serum or PlasmaOrdered By: Gerald Theodore on 10-12-2022 Creatinine [Mass/Vol] 0.69 mg/dL 0.60-1.20 [facility] Eosinophils Auto (Bld) [#/Vo l]Ordered By: Gerald Theodore on 10-12-2022 Eosinophils (Bld) [#/Vol] 0.2 10*3/uL 0.0-0.45 [facility] Eosinophils/100 WBC Auto (Bl d)Ordered By: Gerald Theodore on 10-12-2022 Eosinophils/100 WBC (Bld) 1.8 % . [facility] Erythrocyte Sedimentation Ra emery 10-12-2022 ESR (Bld) [Velocity] 25 mm/h Normal 0-29 [facility] Comment on above: Result Comment: PERF ORMED BY: [facility] [address] [place] [address] PATHOLOGIST DELICATE [employer] PRESSER IAN ACE M.D. Performed By: #### C UBLD, CMP, CBC #### [facility] [address] Erythrocyte distribution wid th Auto (RBC) [Ratio]Ordered By: Gerald Theodore on 10-12-2022 Erythrocyte distribution width (RBC) [Ratio] 16.3 % 11.9-15.3 [facility] Erythrocyte sedimentation ra te by Photometric methodOrdered By: Gerald Theodore on 10-12-2022 ESR Photometric method (Bld) [Velocity] 25 mm/hr 0-29 [facility] Globulin Calc (S) [Mass/Vol] Ordered By: Gerald Theodore on 10-12-2022 Globulin (S) [Mass/Vol] 2.5 g/dL [facility] Glucose [Mass/volume] in Ser um or PlasmaOrdered By: Gerald Theodore on 10-12-2022 Glucose [Mass/Vol] 92 mg/dL 70-[address] [facility] Comment on above: ADA recommended refe rence rangeRandom Glucose Reference Range is dependent on time and content of last meal. Glucose of more than 200 mg/dL in a nonstressed, ambulatory subject supports the diagnosis of Diabetes Mellitus. Hematocrit Auto (Bld) [Volum e fraction]Ordered By: Gerald Theodore on 10-12-2022 Hematocrit (Bld) [Volume fraction] 35.2 % 34.0-46.4 [facility] Hemoglobin [Mass/volume] in BloodOrdered By: Gerald Theodore on 10-12-2022 Hemoglobin (Bld) [Mass/Vol] 11.2 g/dL 11.8-15.4 [facility] Lactate [Moles/volume] in Se rum or PlasmaOrdered By: Gerald Theodore on 10-12-2022 Lactate [Moles/Vol] 0.6 mmol/L 0.5-2.2 [facility] Lactic Acidon 10-12-2022 Lactate [Moles/Vol] 0.6 mmol/L Normal 0.5-2.2 [facility] Comment on above: Result Comment: PERF ORMED BY: [facility] [address] [place] [address] PATHOLOGIST DEL[employer] PRESSER IAN ACE M.D. Performed By: #### C UBLD, CMP, CBC #### [facility] [address] Leukocytes [#/volume] correc julia for nucleated erythrocytes in Blood by Automated counOrdered By: Gerald Theodore on 10-12-2022 WBC corrected for nucl RBC Auto (Bld) [#/Vol] 8.6 10*3/uL 3.8-11.6 [facility] Lymphocytes Auto (Bld) [#/Vo l]Ordered By: Gerald Theodore on 10-12-2022 Lymphocytes (Bld) [#/Vol] 0.8 10*3/uL 1.00-4.8 [facility] Lymphocytes/100 WBC Auto (Bl d)Ordered By: Gerald Theodore on 10-12-2022 Lymphocytes/100 WBC (Bld) 9.6 % . [facility] MCH Auto (RBC) [Entitic mass ]Ordered By: Gerald Theodore on 10-12-2022 MCH (RBC) [Entitic mass] 25.5 pg 24.7-34.3 [facility] MCHC Auto (RBC) [Mass/Vol]Or dered By: Gerald Theodore on 10-12-2022 MCHC (RBC) [Mass/Vol] 31.8 g/dL 32.0-35.0 [facility] MCV Auto (RBC) [Entitic vol] Ordered By: Gerald Theodore on 10-12-2022 MCV (RBC) [Entitic vol] 80.1 fL 80-100 [facility] Monocyte distribution width [Entitic volume] in Blood by AutomatedOrdered By: Gerald Theodore on 10-12-2022 Monocyte distribution width Auto (Bld) [Entitic vol] 14.89 % 0.00-20.00 [facility] Monocytes Auto (Bld) [#/Vol] Ordered By: Gerald Theodore on 10-12-2022 Monocytes (Bld) [#/Vol] 0.7 10*3/uL 0.0-0.8 [facility] Monocytes/100 WBC Auto (Bld) Ordered By: Gerald Theodore on 10-12-2022 Monocytes/100 WBC (Bld) 7.9 % . [facility] Neutrophils Auto (Bld) [#/Vo l]Ordered By: Gerald Theodore on 10-12-2022 Neutrophils (Bld) [#/Vol] 6.9 10*3/uL 1.8-7.7 [facility] Neutrophils/100 WBC Auto (Bl d)Ordered By: Gerald Theodore on 10-12-2022 Neutrophils/100 WBC (Bld) 80.2 % . [facility] No Panel InformationOrdered By: Gerald Theodore on 10-12-2022 Estimated GFR (CKD-EPI) > 60.0 mL/Min [facility] Creatinine Clearance (Chem 101.06 [facility] Nucleated erythrocytes [Pres ence] in Blood by Automated countOrdered By: Gerald Theodore on 10-12-2022 Nucleated RBC Auto Ql (Bld) 0.1 /100{WBC} 0-0.5 [facility] Platelet mean volume Auto (B ld) [Entitic vol]Ordered By: Gerald Theodore on 10-12-2022 Platelet mean volume (Bld) [Entitic vol] 7.6 fL 6.3-10.7 [facility] Platelets Auto (Bld) [#/Vol] Ordered By: Gerald Theodore on 10-12-2022 Platelets (Bld) [#/Vol] 215 10*3/uL 150-450 [facility] Potassium [Moles/volume] in Serum or PlasmaOrdered By: Gerald Theodore on 10-12-2022 Potassium [Moles/Vol] 3.6 mmol/L 3.5-5.1 [facility] Protein [Mass/volume] in Ser um or PlasmaOrdered By: Gerald Theodore on 10-12-2022 Protein [Mass/Vol] 6.0 g/dL 6.4-8.[address] [facility] RBC Auto (Bld) [#/Vol]Ordere d By: Gerald Theodore on 10-12-2022 RBC (Bld) [#/Vol] 4.39 10*6/uL 3.60-5.00 [facility] Serum or plasma albumin/glob ulin mass ratioOrdered By: Gerald Theodore on 10-12-2022 Albumin/Globulin [Mass ratio] 1.4 {ratio} [facility] Serum or plasma anion gap de terminationOrdered By: Gerald Theodore on 10-12-2022 Anion gap [Moles/Vol] 11.1 mmol/L 6.0-15.0 [facility] Sodium [Moles/volume] in Ser um or PlasmaOrdered By: Gerald Theodore on 10-12-2022 Sodium [Moles/Vol] 141 mmol/L 136-[address] [facility] Urea nitrogen [Mass/volume] in Serum or PlasmaOrdered By: Gerald Theodore on 10-12-2022 Urea nitrogen [Mass/Vol] 20 mg/dL 7-25 [facility] WBC Auto (Bld) [#/Vol]Ordere d By: Gerald Theodore on 10-12-2022 WBC (Bld) [#/Vol] 8.6 10*3/uL 3.8-11.[address] [facility] COVID Quick Testingon 2020 Result Positive [employer] Other Quick Fluon 06-06-2021 FLUAV Ab CF (S) [Titer] Negative [employer] Other FLUBV Ab CF (S) [Titer] Negative [employer] Other CNOVon 01-26-2017 CNOV Office Visit (VICTOR HUGO) ELIZABETH CESAR ([id number]) 1955 FDate Time Provider Department01/26/17 10:30 AM CARL TY During your visit today, we recorded the following information about you: Pulse Respiration Blood pressure Weight 71/minute 18/minute 162/82 145.2 kg Height 1.613 Rajesh Ty MD 01/26/2017 10:54 AM [facility] Department of Cardiovascular MedicineOUTPATIENT VISIT DATEAugus2016OUTPATIENT VISIT TYPENEW CONSULTATIONPRCANNON MEMORIAL [facility]OSPITALRY CARE PHYSICIAN:Pepe Fermin, [id number] [place] [address] [address]Vykgz: [phone]: [phone] COMPLAINT:Palpitations and shortness of breathHISTORY OF PRESENT ILLNESS:[place]ia Cesar is a 61 year old female who presents today to count includes the [facility] care.History includes morbid obesity, lymphedema, remote [...] of breath 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 Morbid [...] with further questions or concerns.Carl Ty M.D.Marc[facility] Adamespartment of Cardiovascular MedicineMemorial Health System [facility] Hospitalrt and Vascular InstituteLori V[place] [address] [facility].[place], [place] [address]: [phone] Referring Provider: PEPE FERMIN [[id number]]Allergies As of Date: 01/26/2017(No Known Allergies)Date Reviewed: 01/26/2017Reviewed by: Mario Rodriguez (Rn) JOSH Awad - Fully AssessedReason for Visit: Shortness of Breath [227]Primary Visit Diagnosis:Essential hypertension [I10] Other Visit Diagnoses:Obesity, Class III, BMI 40-49.9 (morbid obesity) (HCC) [E66.01] Tobacco abuse [Z72.0] CHUCKIE (obstructive sleep apnea) [G47.33]Order(s):ECHO [213176] Order #: [id number]: 1 FUTUREProblem List As Of Date 01/26/2017 Noted Resolved Obesity, Class III, BMI >= 40 (morbid obesity) *INVALID FOR*Disposition: Return in about 2 months (around 03/28/2017).Follow-up and Disposition History RecordedEncounter Number: [id number] Status:Closed by CARL TY MD on 01/26/17 Normal [facility] PROGRESSon 01-23-2017 PROGRESS HNO ID: [id number] thor: Carl Art: (none)Author Type: PhysicianType: Progress NotesFiled: 01/26/2017 10:54 AMNote Text:Heart and Vascular InstituteRobalbuquerque ind[facility] Department of Cardiovascular MedicineOUTPATIENT VISIT DATEAugust 2016OUTPATIENT VISIT TYPENEW CONSULTATIONPRIMARY CARE PHYSICIAN:Pepe Fermin, [id number] [facility] [address] [address]Nouyz: [phone]: [phone] COMPLAINT:Palpitations and shortness of breathHISTORY OF PRESENT ILLNESS:Albania Cesar is a 61 year old female who presents today to [facility]. 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 Morbid [...] or concerns.Carl Ty M.D.[facility] of Cardiovascular MedicineHeart and Vascular InstituteLori V[place] [address].[place], [place] [address]Vxacft: [phone] Normal [facility] Vital Signs Date Time Vital Sign Value Performing Clinician Facility 06-09-2023 14:00-0500 Body height 160.02 cm Abimbola Bran Other [employer] Other 06-09-2023 14:00-0500 Body mass index (BMI) [Ratio] 56.27 kg/m2 Abimbola Yina Other [employer] Other 06-09-2023 14:00-0500 Body temperature 98.6 [degF] Abimbola Bran Other [employer] Other 06-09-2023 14:00-0500 Body weight 144.11 kg Abimbola Bran Other [employer] Other 06-09-2023 14:00-0500 Diastolic blood pressure 72 mm[Hg] Abimbola Bran Other [employer] Other 06-09-2023 14:00-0500 SaO2% (BldA) [Mass fraction] 98 % Abimbola Bran Other [employer] Other 06-09-2023 14:00-0500 Systolic blood pressure 112 mm[Hg] Abimbola Bran Other [employer] Other 04-17-2023 12:27-0500 Body temperature 97.4 [degF] DO Abimbola Bran Work Phone: [facility] 04-17-2023 12:27-0500 Diastolic blood pressure 85 mm[Hg] DO Abimbola Bran Work Phone: [facility] 04-17-2023 12:27-0500 Heart rate 77 /min DO Abimbola Bran Work Phone: [facility] 04-17-2023 12:27-0500 Respiratory rate 18 /min DO Abimbola Bran Work Phone: [facility] 04-17-2023 12:27-0500 SaO2% (BldA) [Mass fraction] 98 % DO Abimbola Bran Work Phone: [facility] 04-17-2023 12:27-0500 Systolic blood pressure 131 mm[Hg] DO Abimbola Bran Work Phone: [facility] 04-17-2023 06:00-0500 Body weight 134 kg DO Abimbola Bran Work Phone: [facility] 04-16-2023 23:45-0500 Inhaled oxygen concentration 30 % DO Abimbola Bran Work Phone: [facility] 04-13-2023 15:46-0500 Body height 161.29 cm DO Abimbola Bran Work Phone: [facility] 04-10-2023 14:48-0400 Body temperature 97.5 [degF] DO Abimbola Bran Work Phone: [facility] 04-10-2023 14:48-0400 Diastolic blood pressure 85 mm[Hg] DO Abimbola Bran Work Phone: [facility] 04-10-2023 14:48-0400 Heart rate 86 /min DO Abimbola Bran Work Phone: [facility] 04-10-2023 14:48-0400 Respiratory rate 18 /min DO Abimbola Bran Work Phone: [facility] 04-10-2023 14:48-0400 SaO2% (BldA) [Mass fraction] 98 % DO Abimbola Bran Work Phone: [facility] 04-10-2023 14:48-0400 Systolic blood pressure 136 mm[Hg] DO Abimbola Bran Work Phone: [facility] 04-10-2023 10:11-0400 Body height 161.29 cm DO Abimbola Bran Work Phone: [facility] 04-10-2023 10:11-0400 Body weight 132.2 kg DO Abimbola Bran Work Phone: [facility] 04-07-2023 08:11-0400 Body temperature 97.1 [degF] DO Abimbola Bran Work Phone: [facility] 04-07-2023 08:11-0400 Diastolic blood pressure 95 mm[Hg] DO Abimbola Bran Work Phone: [facility] 04-07-2023 08:11-0400 Heart rate 86 /min DO Abimbola Bran Work Phone: [facility] 04-07-2023 08:11-0400 Respiratory rate 18 /min DO Abimbola Bran Work Phone: [facility] 04-07-2023 08:11-0400 SaO2% (BldA) [Mass fraction] 99 % DO Abimbola Yina Work Phone: [facility] 04-07-2023 08:11-0400 Systolic blood pressure 183 mm[Hg] DO Abimbola Yina Work Phone: [facility] 04-07-2023 08:08-0400 Body height 160.02 cm DO Abimbola Yina Work Phone: [facility] 04-07-2023 08:08-0400 Body weight 135.62 kg DO Abimbola Yina Work Phone: [facility] 02-24-2023 08:00-0400 Body height 160.02 cm Abimbola Bran Other [employer] Other 02-24-2023 08:00-0400 Body mass index (BMI) [Ratio] 54.02 kg/m2 Abimbolamirta Bran Other [employer] Other 02-24-2023 08:00-0400 Body weight 138.35 kg Abimbola Bran Other [employer] Other 02-24-2023 08:00-0400 Diastolic blood pressure 82 mm[Hg] Abimbola Bran Other [employer] Other 02-24-2023 08:00-0400 Respiratory rate 18 /min Abimbola Bran Other [employer] Other 02-24-2023 08:00-0400 SaO2% (BldA) [Mass fraction] 97 % Abimbola Bran Other [employer] Other 02-24-2023 08:00-0400 Systolic blood pressure 122 mm[Hg] Abimbola Bran Other [employer] Other 02-03-2023 10:36-0400 Body height 160.02 cm PHYSICIAN NO [facility] 02-03-2023 10:36-0400 Body mass index (BMI) [Ratio] 59.3 kg/m2 PHYSICIAN NO [facility] 02-03-2023 10:36-0400 Body weight 151.95 kg PHYSICIAN NO [facility] 02-03-2023 09:30-0400 Body temperature 97.3 [degF] PHYSICIAN NO [facility] 02-03-2023 09:30-0400 Diastolic blood pressure 79 mm[Hg] PHYSICIAN NO [facility] 02-03-2023 09:30-0400 Heart rate 76 /min PHYSICIAN NO [facility] 02-03-2023 09:30-0400 Respiratory rate 20 /min PHYSICIAN NO [facility] 02-03-2023 09:30-0400 Systolic blood pressure 175 mm[Hg] PHYSICIAN NO [facility] 01-19-2023 08:30-0400 Body height 160.02 cm Abimbola Bran Other [employer] Other 01-19-2023 08:30-0400 Body mass index (BMI) [Ratio] 59.42 kg/m2 Abimbola Bran Other [employer] Other 01-19-2023 08:30-0400 Body temperature 98.3 [degF] Abimbola Bran Other [employer] Other 01-19-2023 08:30-0400 Body weight 152.18 kg Abimbolaconnor Bran Other [employer] Other 01-19-2023 08:30-0400 Diastolic blood pressure 76 mm[Hg] Abimbolaconnor Bran Other [employer] Other 01-19-2023 08:30-0400 Respiratory rate 18 /min Abimbolaconnor Bran Other [employer] Other 01-19-2023 08:30-0400 SaO2% (BldA) [Mass fraction] 97 % Abimbolaconnor Bran Other [employer] Other 01-19-2023 08:30-0400 Systolic blood pressure 120 mm[Hg] Abimbola Bran Other [employer] Other 12-31-2022 15:03-0400 Diastolic blood pressure 76 mm[Hg] PHYSICIAN NO [facility] 12-31-2022 15:03-0400 Heart rate 86 /min PHYSICIAN NO [facility] 12-31-2022 15:03-0400 Respiratory rate 20 /min PHYSICIAN NO [facility] 12-31-2022 15:03-0400 SaO2% (BldA) [Mass fraction] 96 % PHYSICIAN NO [facility] 12-31-2022 15:03-0400 Systolic blood pressure 166 mm[Hg] PHYSICIAN NO [facility] 12-31-2022 11:29-0400 Body height 160.02 cm PHYSICIAN NO [facility] 12-31-2022 11:29-0400 Body temperature 97.4 [degF] PHYSICIAN NO [facility] 12-31-2022 11:29-0400 Body weight 145.14 kg PHYSICIAN NO [facility] 12-29-2022 13:45-0400 Body height 160.02 cm Laith Carlson Other [employer] Other 12-29-2022 13:45-0400 Body mass index (BMI) [Ratio] 56.68 kg/m2 Laith Carlson Other [employer] Other 12-29-2022 13:45-0400 Body temperature 98.4 [degF] Laith Carlson Other [employer] Other 12-29-2022 13:45-0400 Body weight 145.15 kg Laith Carlson Other [employer] Other 12-29-2022 13:45-0400 Diastolic blood pressure 78 mm[Hg] Laith Carlson Other [employer] Other 12-29-2022 13:45-0400 Systolic blood pressure 153 mm[Hg] Laith Carlson Other [employer] Other 12-14-2022 01:34-0400 Diastolic blood pressure 80 mm[Hg] PHYSICIAN NO [facility] 12-14-2022 01:34-0400 Heart rate 75 /min PHYSICIAN NO [facility] 12-14-2022 01:34-0400 Respiratory rate 18 /min PHYSICIAN NO [facility] 12-14-2022 01:34-0400 SaO2% (BldA) [Mass fraction] 98 % PHYSICIAN NO [facility] 12-14-2022 01:34-0400 Systolic blood pressure 165 mm[Hg] PHYSICIAN NO [facility] 12-13-2022 23:53-0400 Body temperature 97.7 [degF] PHYSICIAN NO [facility] 12-13-2022 21:24-0400 Body height 160.02 cm PHYSICIAN NO [facility] 12-13-2022 21:24-0400 Body weight 153.5 kg PHYSICIAN NO [facility] 12-08-2022 08:18-0400 Diastolic blood pressure 53 mm[Hg] PHYSICIAN NO [facility] 12-08-2022 08:18-0400 Heart rate 56 /min PHYSICIAN NO [facility] 12-08-2022 08:18-0400 Systolic blood pressure 101 mm[Hg] PHYSICIAN NO [facility] 12-05-2022 08:22-0400 Body temperature 97.7 [degF] PHYSICIAN NO [facility] 12-02-2022 09:00-0400 Respiratory rate 18 /min PHYSICIAN NO [facility] 12-02-2022 09:00-0400 SaO2% (BldA) [Mass fraction] 96 % PHYSICIAN NO [facility] 12-01-2022 20:48-0400 Diastolic blood pressure 66 mm[Hg] PHYSICIAN NO [facility] 12-01-2022 20:48-0400 Heart rate 72 /min PHYSICIAN NO [facility] 12-01-2022 20:48-0400 Respiratory rate 21 /min PHYSICIAN NO [facility] 12-01-2022 20:48-0400 SaO2% (BldA) [Mass fraction] 97 % PHYSICIAN NO [facility] 12-01-2022 20:48-0400 Systolic blood pressure 137 mm[Hg] PHYSICIAN NO [facility] 12-01-2022 18:20-0400 Body height 160.02 cm PHYSICIAN NO [facility] 12-01-2022 18:20-0400 Body temperature 98.1 [degF] PHYSICIAN NO [facility] 12-01-2022 18:20-0400 Body weight 151.2 kg PHYSICIAN NO [facility] 11-24-2022 08:43-0400 Body height 160.02 cm PHYSICIAN NO [facility] 11-24-2022 08:43-0400 Body mass index (BMI) [Ratio] 58.4 kg/m2 PHYSICIAN NO [facility] 11-24-2022 08:43-0400 Body weight 149.68 kg PHYSICIAN NO [facility] 11-24-2022 08:27-0400 Body temperature 98.1 [degF] PHYSICIAN NO [facility] 11-24-2022 08:27-0400 Diastolic blood pressure 97 mm[Hg] PHYSICIAN NO [facility] 11-24-2022 08:27-0400 Heart rate 78 /min PHYSICIAN NO [facility] 11-24-2022 08:27-0400 Respiratory rate 24 /min PHYSICIAN NO [facility] 11-24-2022 08:27-0400 Systolic blood pressure 159 mm[Hg] PHYSICIAN NO [facility] 11-06-2022 10:30-0400 Body temperature 97.5 [degF] PHYSICIAN NO [facility] 11-06-2022 10:30-0400 Diastolic blood pressure 80 mm[Hg] PHYSICIAN NO [facility] 11-06-2022 10:30-0400 Heart rate 71 /min PHYSICIAN NO [facility] 11-06-2022 10:30-0400 Systolic blood pressure 146 mm[Hg] PHYSICIAN NO [facility] 11-05-2022 14:05-0400 Diastolic blood pressure 82 mm[Hg] PHYSICIAN NO [facility] 11-05-2022 14:05-0400 Heart rate 90 /min PHYSICIAN NO [facility] 11-05-2022 14:05-0400 Respiratory rate 18 /min PHYSICIAN NO [facility] 11-05-2022 14:05-0400 SaO2% (BldA) [Mass fraction] 92 % PHYSICIAN NO [facility] 11-05-2022 14:05-0400 Systolic blood pressure 180 mm[Hg] PHYSICIAN NO [facility] 11-05-2022 11:46-0400 Body height 161.29 cm PHYSICIAN NO [facility] 11-05-2022 11:46-0400 Body temperature 98 [degF] PHYSICIAN NO [facility] 11-05-2022 11:46-0400 Body weight 147.65 kg PHYSICIAN NO [facility] 10-30-2022 15:13-0400 Body temperature 98.6 [degF] PHYSICIAN NO [facility] 10-30-2022 15:13-0400 Diastolic blood pressure 95 mm[Hg] PHYSICIAN NO [facility] 10-30-2022 15:13-0400 Heart rate 86 /min PHYSICIAN NO [facility] 10-30-2022 15:13-0400 Respiratory rate 20 /min PHYSICIAN NO [facility] 10-30-2022 15:13-0400 Systolic blood pressure 186 mm[Hg] PHYSICIAN NO [facility] 10-21-2022 11:17-0400 Body height 160.02 cm PHYSICIAN NO [facility] 10-21-2022 11:17-0400 Body mass index (BMI) [Ratio] 58.4 kg/m2 PHYSICIAN NO [facility] 10-21-2022 11:17-0400 Body weight 149.68 kg PHYSICIAN NO [facility] 10-17-2022 20:25-0400 Body temperature 97.9 [degF] PHYSICIAN NO [facility] 10-17-2022 20:25-0400 Diastolic blood pressure 91 mm[Hg] PHYSICIAN NO [facility] 10-17-2022 20:25-0400 Heart rate 70 /min PHYSICIAN NO [facility] 10-17-2022 20:25-0400 Respiratory rate 17 /min PHYSICIAN NO [facility] 10-17-2022 20:25-0400 SaO2% (BldA) [Mass fraction] 95 % PHYSICIAN NO [facility] 10-17-2022 20:25-0400 Systolic blood pressure 165 mm[Hg] PHYSICIAN NO [facility] 10-12-2022 19:31-0400 Diastolic blood pressure 78 mm[Hg] PHYSICIAN NO [facility] 10-12-2022 19:31-0400 Heart rate 80 /min PHYSICIAN NO [facility] 10-12-2022 19:31-0400 Respiratory rate 18 /min PHYSICIAN NO [facility] 10-12-2022 19:31-0400 SaO2% (BldA) [Mass fraction] 98 % PHYSICIAN NO [facility] 10-12-2022 19:31-0400 Systolic blood pressure 138 mm[Hg] PHYSICIAN NO [facility] 10-12-2022 17:48-0400 Body height 160.02 cm PHYSICIAN NO [facility] 10-12-2022 17:48-0400 Body temperature 98.7 [degF] PHYSICIAN NO [facility] 10-12-2022 17:48-0400 Body weight 149.68 kg PHYSICIAN NO [facility] 06-06-2021 18:30-0500 Body height 160.02 cm Shayla Ginty Other [email or web address] Other 06-06-2021 18:30-0500 Body mass index (BMI) [Ratio] 51.37 kg/m2 Shayla Ginty Other [employer] Other 06-06-2021 18:30-0500 Body temperature 97.2 [degF] Shayla Ginty Other [employer] Other 06-06-2021 18:30-0500 Body weight 131.54 kg Shayla Ginty Other [employer] Other 06-06-2021 18:30-0500 Respiratory rate 18 /min Shayla Ginty Other [employer] Other 06-06-2021 18:30-0500 SaO2% (BldA) [Mass fraction] 93 % Shayla Ginty Other [employer] Other Encounters Encounter Date Encounter Type Care Provider Facility Start: 07-07-2023 End: 07-07-2023 ambulatory Abimbolamirta Bran Other [email or web address] Other Start: 07-07-2023 Telephone encounter Abimbola Bran [facility] Start: 06-15-2023 End: 06-15-2023 ambulatory Abimbolamirta Bran Other [email or web address] Other Start: 06-15-2023 Telephone encounter Abimbola Bran [facility] Start: 06-09-2023 End: 06-09-2023 ambulatory Abimbolamirta Bran Other [email or web address] Other Start: 06-09-2023 Office outpatient visit 25 minutes Abimbolaconnor Bran [facility] [place] Start: 06-09-2023 Telephone encounter Abimbola Bran [facility] Start: 04-20-2023 End: 04-20-2023 ambulatory Abimbola Bran Other [email or web address] Other Start: 04-20-2023 Telephone encounter Abimbola Bran [facility] Start: 04-10-2023 End: 04-17-2023 Evaluation and management of inpatient Laith Robyn Facility:[facility] Start: 04-10-2023 End: 04-17-2023 Evaluation and management of inpatient DO Abimbola Bran Work Phone: [facility] [place] [facility] Work Phone: Start: 04-07-2023 End: 04-07-2023 Emergency department patient visit Jhonatan Crowell Facility:[facility] Start: 04-07-2023 End: 04-07-2023 Emergency department patient visit DO Abimbola Bran Work Phone: [facility]-Emergency Room Work Phone: Start: 02-24-2023 End: 02-24-2023 ambulatory Abimbolamirta Bran Other [email or web address] Other Start: 02-24-2023 Office outpatient visit 15 minutes Abimbola Bran [facility] [place] [facility] Start: 02-03-2023 End: 02-03-2023 ambulatory Abimbola Bran Facility:[facility] Start: 02-03-2023 End: 02-03-[address] [facility] Work Phone: Start: 02-03-2023 End: 02-03-2023 Discharged Recurring PHYSICIAN NO [facility] [place] Work Phone: Start: 02-03-2023 Registered Recurring PHYSICIAN NO [facility] [place] Work Phone: Start: 02-02-2023 End: 02-03-2023 ambulatory Laith Carlson Facility:[facility] Start: 02-02-2023 End: 02-02-[address] [facility] Work Phone: Start: 02-02-2023 End: 02-02-2023 Discharged Recurring PHYSICIAN NO [facility]-Infusion Therapy - O/P Work Phone: Start: 01-27-2023 End: 01-27-2023 ambulatory Abimbola Bran Other [email or web address] Other Start: 01-27-2023 Telephone encounter Abimbola Bran [facility] [place] Start: 01-20-2023 End: 01-20-2023 ambulatory Laith Carlson Other [email or web address] Other Start: 01-20-2023 Telephone encounter Laith Carlson [facility] Start: 01-19-2023 End: 01-19-2023 ambulatory Abimbola Bran Other [email or web address] Other Start: 01-19-2023 Office outpatient ne w 45 minutes Abimbola Bran [facility] [place] [facility] Start: 01-06-2023 End: 01-06-2023 ambulatory Laith Carlson Other [email or web address] Other Start: 01-06-2023 Telephone encounter Laith Carlson [facility] Start: 12-31-2022 End: 12-31-2022 ambulatory Abimbola Bran Other [email or web address] Other Start: 12-31-2022 Telephone encounter Abimbola Bran [facility] [place] [facility] Start: 12-31-2022 End: 12-31-2022 Emergency department patient visit Abimbola Bran Facility:[facility] Start: 12-31-2022 End: 12-31-2022 Emergency department patient visit PHYSICIAN NO [facility]Emergency Room Work Phone: Start: 12-29-2022 End: 12-29-2022 ambulatory Laith Carlson Other [email or web address] Other Start: 12-29-2022 Office outpatient ne w 45 minutes Laith PANDYA Infectious Disease Start: 12-19-2022 End: 12-19-2022 ambulatory PHYSICIAN NO FAMILY Facility:[facility] Start: 12-19-2022 End: 12-19-2022 Discharged Recurring PHYSICIAN NO FAMILY [facility]-Lunchroom [address] Start: 12-15-2022 End: 12-15-2022 ambulatory Abimbola Bran Other [email or web address] Other Start: 12-15-2022 Telephone encounter Abimbola Bran [facility] [place] [facility] Start: 12-13-2022 End: 12-14-2022 Emergency department patient visit Abimbola Bran Facility:[facility] Start: 12-13-2022 End: 12-14-2022 Emergency department patient visit PHYSICIAN NO FAMILY [facility]-Emergency Room Work Phone: Start: 12-08-2022 End: 12-09-2022 ambulatory Laith Warner Facility:[facility] Start: 12-08-2022 End: 12-08-2022 Discharged Recurring PHYSICIAN NO [facility]-Infusion Therapy - O/P Work Phone: Start: 12-05-2022 Registered Recurring PHYSICIAN NO [facility]-Lunch[facility] [address] Start: 12-01-2022 End: 12-01-2022 Emergency department patient visit Laith Warner Facility:[facility] Start: 12-01-2022 End: 12-01-2022 Emergency department patient visit PHYSICIAN NO [facility]Emergency [facility] Work Phone: Start: 11-28-2022 Registered Recurring PHYSICIAN NO [facility]-Lunchroom [address] Start: 11-24-2022 End: 11-24-2022 ambulatory Evelyn Leon Facility:[facility] Start: 11-24-2022 End: 11-24-2022 Discharged Recurring PHYSICIAN NO [facility] [place] Work Phone: Start: 11-24-2022 Registered Recurring PHYSICIAN NO [facility] [place] Work Phone: Start: 11-07-2022 End: 11-07-2022 ambulatory PHYSICIAN NO FAMILY Facility:[facility] Start: 11-07-2022 End: 11-07-2022 Discharged Recurring PHYSICIAN NO [facility]-Infusion Therapy - O/P Work Phone: Start: 11-07-2022 Registered Recurring PHYSICIAN NO [facility]-Infusion Therapy - O/P Work Phone: Start: 11-05-2022 Registered Recurring PHYSICIAN NO [facility]-Infusion Therapy - O/P Work Phone: Start: 11-05-2022 End: 11-05-2022 Emergency department patient visit PHYSICIAN NO FAMILY Facility:[facility] Start: 11-05-2022 End: 11-05-2022 Emergency department patient visit PHYSICIAN NO [facility]-Emergency Room Work Phone: Start: 11-05-2022 Registered Recurring PHYSICIAN NO JONATHAN [facility]-Lunchroom [address] Start: 10-30-2022 Registered Recurring PHYSICIAN NO [facility] [place] Work Phone: Start: 10-17-2022 End: 10-17-2022 ambulatory Gerald Kothari Theodore Facility:[facility] Start: 10-17-2022 End: 10-17-[address] [facility] Work Phone: Start: 10-17-2022 End: 10-17-2022 Discharged Recurring PHYSICIAN NO [facility]-Infusion Therapy - O/P Work Phone: Start: 10-17-2022 Registered Recurring PHYSICIAN NO [facility]-Infusion Therapy - O/P Work Phone: Start: 10-12-2022 End: 10-12-2022 Emergency department patient visit Gerald Theodore Facility:[facility] Start: 10-12-2022 End: 10-12-2022 Emergency department patient visit PHYSICIAN NO [facility]-Emergency Room Work Phone: Start: 06-06-2021 End: 06-06-2021 ambulatory Shayla Motta Other [email or web address] Other Start: 06-06-2021 Office outpatient visit 15 minutes Shayla Motta [facility] [place] Start: 01-26-2017 End: 02-03-2017 [facility] Procedures Date Procedure Procedure Detail Performing Clinician Start: 04-15-2023 Insertion of periphe rally inserted central catheter DO Abimbolamirta Bran Work Phone: Start: 04-15-2023 Ultrasonography of abdomen DO Abimbola Bran Work Phone: Start: 04-13-2023 Duplex scan of lower limb veins DO Abimbola wedgies Phone: Start: 04-11-2023 Blood culture for ba cteria, including anaerobic screen DO Abimbola Bran Work Phone: Start: 04-11-2023 Plain chest X-ray DO Gl oria Bran Work Phone: Start: 04-10-2023 Urine culture DO Abimbola Bran Work Phone: Start: 04-07-2023 Plain X-ray of bilat eral tibia and bilateral fibula DO Abimbola Bran Work Phone: Start: 12-13-2022 Aerobic microbial culture [...] Date Care Activity Detail Author Start: 04-16-2023 [facility] Start: 04-15-2023 Insertion of peripherally inserted central catheter [facility] Start: 04-13-2023 Referral to infectio us diseases physician [facility] Start: 04-10-2023 Hospital admission [facility] Start: 04-10-2023 [facility] Start: 04-10-2023 Aerobic microbial culture Superficial Wound Culture [facility] Start: 04-10-2023 Bacteria identified in Blood by Culture [facility] Start: 04-10-2023 Bacteria identified in Urine by Culture [facility] Start: 12-13-2022 Superficial Wound Culture Superficial Wound Culture [facility] Start: 12-01-2022 Bacteria identified in Blood by Culture [facility] Start: 11-05-2022 Bacteria identified in Blood by Culture [facility] Start: 10-12-2022 Bacteria identified in Blood by Culture [facility] Bacteria identified in Unspecified specimen by Aerobe culture [facility] Blood chemistry [facility] Work Phone: Patient referral [facility] Work Phone: Immunizations Immunization Date Immunization Notes Care Provider Fa janett 01-19-2023 Prevnar 20 Abimbola Bran Other [employer] Other NEGATED: Highlighted row has not occurred!01-19-2023 influenza, seasonal, injectable Patient Objection Abimbola Bran Other [employer] Other Payers Date Payer Category Payer Unknown [id number] 2023 Unknown [id number] 2..[id number] 2022 Unknown [id number] 2022 Medicare [id number] 2022 Self-pay [id number] 2022 Unknown [id number] 2015 Unknown Brenda BC/BS BRIANNA [id number] 2 [id number] Unknown [id number] Unknown [id number] Unknown [id number] 2.. [id number] Unknown [id number] 2.16.8 40.1.344929.3.579.2.531 Unknown [id number] 2.16.8 40.1.356019.3.579.2.531 Unknown [id number] 2.16.8 40.1.933092.3.579.2.531 Unknown [id number] 2.16.8 40.1.923676.3.579.2.531 Unknown [id number] 2.16.8 40.1.281235.3.579.2.531 Unknown [id number] 2.16.8 40.1.888574.3.579.2.531 Unknown [id number] 2.16.8 40.1.833200.3.579.2.531 Unknown [id number] 2.16.8 40.1.219478.3.579.2.531 Unknown [id number] 2.16.8 40.1.984216.3.579.2.531 Unknown [id number] 2.16.8 40.1.718070.3.579.2.531 Unknown [id number] 2.16.8 40.1.102393.3.579.2.531 Unknown [id number] 2.16.8 40.1.145598.3.579.2.531 Unknown [id number] 2.16.8 40.1.039578.3.579.2.531 Unknown [id number] 2.16.8 40.1.729767.3.579.2.531 Social History Date Type Detail Facility Sex Assigned At [employer] Other Start: 10-12-2022 End: 04-07-2023 Tobacco smoking status ARIS Never smoked tobacco (finding) [facility] Start: 1955 Sex Assigned At Female F [facility] Start: 11-05-2022 End: 04-13-2023 Tobacco smoking status ARIS Ex-smoker (finding) [facility] Goals Date Patient Goal Desired Activity /State Functional Status Date Assessment Result Facility 04-17-2023 Functional status Patient at Baseline [facility] Work Phone: 04-10-2023 Functional status Patient at Baseline [facility] Work Phone: Mental Status Date Assessment Result Facility 04-17-2023 Cognitive function Cognitive Sta tus Patient at Baseline [facility] Work Phone: 04-10-2023 Cognitive function Cognitive Sta tus Patient at Baseline [facility] Work Phone: Clinical Notes 06-06-2021 to 07-07-2023 Note Date & Type Note Facility 07-07-2023 Evaluation note Encounter Date Diagnosis Assessment Notes Jun, 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 Has significant pain with dressing changes, can [...] of furosemide, would greatly benefit form SCDs. [employer] Other 11-10-2023 Progress note Author Selvin Bey [facility] April 17, 2023 9:42am Note Date/Time April 17, 2023 9:42am [facility] [address] [place] [address] Hospitalist Progress Note Signed Patient: [place] Cesar MR#: [id number] : 1955 Acct:[id number] Age/Sex: 67 / F Adm Date: 3 Loc: Room: [address] [place] [address] Type: ADM IN Attending Dr: Selvin Bey [...] mg 04/16/23 20:26 Bisacodyl 10 Mg Supp.Rect MT 04/15/24 20:25 DAILY PRN Constipation Celecoxib 100 [...] Plan is to discharge patient to the shelter for wound care and intravenous antibiotic for [...] PRN, oxycodone 5 mg Q6H PRN, Tylenol [id number]. -Continue Celebrex 100 mg twice daily. Patient [...] consider gastric bypass Patient is moving to [facility] on discharge. IV antibiotics continued to maximize benefit of going to this facility. PICC line ordered and antibiotics switched to ertapenem. Documented By: Selvin Bey MD 04/17/23939 Signed By: <Electronically signed by Selvin Bey MD> 04/17/2342 [facility] Work Phone: 1(589) 256-666411-09-2023 Discharge summary Author Selvin Bey [facility] April 16, 2023 12:03pm Note Date/Time April 16, 2023 1 1:58am [facility] [address] [place] [address] Discharge Summary Signed Patient: Albania Cesar MR#: [id number] : 1955 Acct:[id number] Age/Sex: 67 / F Adm Date: 3 Loc: Room: [address] [place] [address]: Selvin Bey MD Copies to: [...] and treatment. Patient is also following at [place] regarding lymphedema and appears to be getting [...] hospital stay. Patient will be going to [place] intermediate facility on discharge. PICC line placed and [...] ask her primary care doctor to obtain [facility] record entirely to address abnormalities [...] HCV RNA (PCR) IU/mL N/A, HCVRNA PCR telescope repairer log10 N/A, Hepatitis C Interp Exam Physical [...] function. Discharge Plan Discharge Plan Patient Disposition: Senior Care Facility Activity: No Activity Restriction Diet: Regular [...] TID PRN (Reason: Pain) Other Ambulatory Orders: L TACKER polysom procedure (Routine) Timeframe: [id number] Location: Determined by Patient Ordered By: Selvin Bey Follow Up: [facility] Central Scheduling [Outside] (Centralized scheduling will contact you to arrange an outpatient sleep study once insurance approves. Please call the office if you have any questions. ) Laith Carlson MD [Active Staff] - Abimbola Bran DO [Primary Care Provider] - (Please call to arrange a follow-up appointment once discharged from SNF. ) Documented By: Selvin Bey MD 04/16/23807 Signed By: <Electronically signed by Selvin Bey MD> 04/16/23 1203 [facility] Work Phone: 1(800) 590-471711-09-2023 Progress note Author Laith Carlson [facility] April 16, 2023 9:18am Note Date/Time April 16, 2023 9 :15am [facility] [address] [place] [address] Infect. Disease Progress Note Signed Patient: Albania Cesar MR#: [id number] : 1955 Acct:[id number] Age/Sex: 67 / F Adm Date: 3 Loc: 4 Room: [address] [place] [address] Type: ADM IN Attending Dr: Selvin Bey [...] 325 Mg Tablet) 650 mg PO Q8H [facility] Stop: 04/10/24 10:14 Last Admin: 04/16/23 03:21 Dose: 650 mg Celecoxib (Celecoxib 100 Mg Capsule) 100 mg PO BID [facility] Stop: 04/13/24 20:59 Last Admin: 04/16/23 08:04 Dose: 100 mg Enoxaparin Sodium (Enoxaparin 40 Mg/0.4 Ml Syringe) 40 mg SUBCUT Q12HR.10A.10P [facility] Stop: 04/12/24 21:59 Last Admin: 04/15/23 10:23 Dose: 40 mg Hydromorphone HCl (Hydromorphone 1 Mg/Ml Syringe) 0.5 mg IV-PUSH DAILY PRN PRN Reason: Wound dressing Last Admin: 04/15/23 11:38 Dose: 0.5 mg Ertapenem (Invanz) 1 gm in 100 mls @ 200 mls/hr IV Q24H [facility] Last Infusion: 04/15/23 10:53 Dose: Infused Ondansetron [...] 40 Mg Tablet.Dr) 40 mg PO DAILY [facility] Stop: 04/10/24 10:29 Last Admin: 04/16/23 08:04 Dose: 40 mg Potassium Phos/Sodium Phos (Sodium, Potassium Phosphates 1 Each Powd.Pack) 1 each PO TID.PC.HS [facility] Stop: 04/13/24 13:09 Last Admin: 04/16/23 08:04 Dose: 1 each Pregabalin (Pregabalin 50 Mg Capsule) 50 mg PO BID [facility] Stop: 10/12/23 12:14 Last Admin: 04/16/23 08:04 [...] She is post to go to [facility] today. Planning 2 to 3 weeks of [place] ertapenem. Aggressive wound care to be continued. Documented By: Laith Carlson MD 04/16/23912 Signed By: <Electronically signed by MD Laith Carlson> 04/16/23917 [facility] Work Phone: 1(525) 565-369811-08-2023 Progress note Author Selvin Bey [facility] April 15, 2023 12:09pm Note Date/Time April 15, 2023 1 2:09pm [facility] [address] [place] [address] Hospitalist Progress Note Signed Patient: Albania Cesar MR#: [id number] : 1955 Acct:[id number] Age/Sex: 67 / F Adm Date: 3 Loc: 4 Room: [address] [place] [address] Type: ADM IN Attending Dr: Selvin Bey MD Copies to: ~ Date of Service: 04/15/2023 Subjective Subjective Narrative: Ms. Cesar is sitting in her chair when I enter the room. She says she is feeling better today. She is still experiencing pain in her lower extremities bilaterally. She says the Dilaudid has helped with pain. She tells me she is going [facility]. She is rating her [...] The patient will be going to a intermediate facility to facilitate identified infusion and wound [...] PRN, oxycodone 5 mg Q6H PRN, Tylenol [id number]-jmt-vhufe. -Continue Celebrex 100 mg twice daily. Patient [...] consider gastric bypass [facility]. IV antibiotics continued to maximize benefit of going to this facility. PICC line ordered and antibiotics switched to ertapenem. Documented By: Selvin Bey MD 04/15/23 1005 Signed By: <Electronically signed by Selvin Bey MD> 04/15/23 1209 [facility] Work Phone: 1(391) 365-771311-08-2023 Hospital Discharge instructions Additional Instructions SNF to [...] 90% -Care to be managed by SNF providers.[facility] Work Phone: [phone]) 432-284611-08-2023 Progress note Author Laith Carlson [facility] April 15, 2023 9:25am Note Date/Time April 15, 2023 9 :16am [facility] [address] [place] [address] Infect. Disease Progress Note Signed Patient: Albania Cesar MR#: [id number] : 1955 Acct:[id number] Age/Sex: 67 / F Adm Date: 3 Loc: 4P Room: [address] [place] [address] Type: ADM IN Attending Dr: Selvin Bey [...] 325 Mg Tablet) 650 mg PO Q8H [facility] Stop: 04/10/24 10:14 Last Admin: 04/15/23 03:39 Dose: 650 mg Celecoxib (Celecoxib 100 Mg Capsule) 100 mg PO BID [facility] Stop: 04/13/24 20:59 Last Admin: 04/15/23 08:24 Dose: 100 mg Enoxaparin Sodium (Enoxaparin 40 Mg/0.4 Ml Syringe) 40 mg SUBCUT Q12HR.10A.10P [facility] Stop: 04/12/24 21:59 Last Admin: 04/14/23 21:19 Dose: 40 mg Hydromorphone HCl (Hydromorphone 1 Mg/Ml Syringe) 0.5 mg IV-PUSH DAILY PRN PRN Reason: Wound dressing Last Admin: 04/14/23 09:24 Dose: 0.5 mg Cefepime HCl (Maxipime) 2 gm in 50 mls @ 100 mls/hr IV Q12H [facility] Last Admin: 04/15/23 05:19 Dose: 100 mls/hr [...] 40 Mg Tablet.Dr) 40 mg PO DAILY [facility] Stop: 04/10/24 10:29 Last Admin: 04/15/23 08:24 Dose: 40 mg Potassium Phos/Sodium Phos (Sodium, Potassium Phosphates 1 Each Powd.Pack) 1 each PO TID.PC.HS [facility] Stop: 04/13/24 13:09 Last Admin: 04/15/23 08:24 [...] patient tells me she is going [facility] ongoing intermediate facility care which is a significant improvement [...] <Electronically signed by MD Laith Carlson> 04/15/23924 [facility] Work Phone: 1(986) 422-597111-07-2023 Progress note Author Selvin Bey [facility] April 14, 2023 1:12pm Note Date/Time April 14, 2023 1 :13pm [facility] [address] [place] [address] Hospitalist Progress Note Signed Patient: Albania Cesar MR#: [id number] : 1955 Acct:[id number] Age/Sex: 67 / F Adm Date: 3 Loc: 4P Room: [address] [place] [address] Type: ADM IN Attending Dr: Selvin Bey [...] as needed oxycodone 5 mg Q6H, Tylenol blhneh-ojm-fkkon. -Added Celebrex 100 twice daily. Hypokalemia, hypophosphatemia [...] on discharge Documented By: Selvin Bey MD 04/14/2341 Signed By: <Electronically signed by Selvin Bey MD> 04/14/23 1312 [facility] Work Phone: 1(320) 817-787411-07-2023 Progress note Author Laith Carlson [facility] April 14, 2023 9:31am Note Date/Time April 14, 2023 9 :31am [facility] [address] [place] [address] Infect. Disease Progress Note Signed Patient: Albania Cesar MR#: [id number] : 1955 Acct:[id number] Age/Sex: 67 / F Adm Date: 3 Loc: Room: [address] [place] [address] Type: ADM IN Attending Dr: Selvin Bey [...] Tablet) 650 mg PO Q8H [facility] Stop: 11/03/24 10:14 Last Admin: 04/14/23 03:21 Dose: 650 mg Enoxaparin Sodium (Enoxaparin 40 Mg/0.4 Ml Syringe) 40 mg SUBCUT Q12HR.10A.10P [facility] Stop: 04/12/24 21:59 Last Admin: 04/14/23 00:07 Dose: 40 mg Hydromorphone HCl (Hydromorphone 1 Mg/Ml Syringe) 0.5 mg IV-PUSH DAILY PRN PRN Reason: Wound dressing Last Admin: 04/14/23 09:24 Dose: 0.5 mg Cefepime HCl (Maxipime) 2 gm in 50 mls @ 100 mls/hr IV Q12H [facility] Last Admin: 04/14/23 05:18 Dose: 100 mls/hr Vancomycin HCl 1.5 gm/ (Dextrose) 530 mls @ 353.333 mls/hr IV Q24H [facility] Stop: 04/14/24 00:59 Ondansetron HCl (Ondansetron Odt 4 Mg Tab.Rapdis) 4 mg PO Q4HR PRN PRN Reason: Nausea And Vomiting Stop: 04/12/24 21:45 Last Admin: 04/13/23 22:09 Dose: 4 mg Oxycodone HCl (Oxycodone Ir 5 Mg Tablet) 5 mg PO Q6HR PRN PRN Reason: Moderate Pain Last Admin: 04/14/23 03:21 Dose: 5 mg Pantoprazole Sodium (Pantoprazole 40 Mg Tablet.Dr) 40 mg PO DAILY [facility] Stop: 04/10/24 10:29 Last Admin: 04/14/23 08:13 [...] <Electronically signed by MD Laith Carlson> 04/14/2331 [facility] Work Phone: 1([phone]) 806-741911-06-2023 Consult note Author Laith Carlson [facility] April 13, 2023 1:05pm Note Date/Time April 13, 2023 1 :05pm [facility] [address] [place] [address] Infect. Disease Consult Note Signed Patient: Albania Cesar MR#: [id number] : 1955 Acct:[id number] Age/Sex: 67 / F Adm Date: 3 Loc: Room: [address] [place] [address] Type: ADM IN Attending Dr: Selvin Bey MD Copies to: DO Laith Monteiro MD Rafik Massouh, MD~ HPI Data of Consult Consult date: 04/13/23 Requesting Physician: Selvin eBy MD Primary Care Provider: Abimbola Bran DO [...] initially for. She also did follow-up with [facility] and had 2-3 veins ligated/removed. [...] negative unless noted below or in HPI [facility] Medical History (Updated 04/12/23 @ 09:39 by [...] 50 mls @ 100 mls/hr IV Q12H [facility] Last Admin: 04/13/23 05:31 Dose: 100 mls/hr [...] @ 100 mls/hr IV Q12H [facility] Rx#: [id number] Vancomycin 1.75 gm In Dextrose 500 / 500 5 % in Water 500 ml @ 285.714 mls/hr IV Q24H [facility] Rx#:[id number] Oral 300 / 800 250 / 250 [...] follow-up with the vein specialist down in [place] who what sounds to be did some [...] <Electronically signed by MD Laith Carlson> 04/13/23 1305 [facility] Work Phone: [phone] Progress note Author Selvin Bey [facility] April 13, 2023 12:36pm Note Date/Time April 13, 2023 1 2:36pm [facility] [address] [place] [address] Hospitalist Progress Note Signed Patient: Albania Cesar MR#: [id number] : 1955 Acct:[id number] Age/Sex: 67 / F Adm Date: 3 Loc: Room: [address] [place] [address] Type: ADM IN Attending Dr: Selvin Bey [...] Tablet PO 04/10/24 10:14 Not Given Q8H [facility] Diclofenac Sodium 50 mg 04/11/23 10:30 04/13/23 08:12 Diclofenac Sodium 25 Mg Tablet.Dr PO 04/13/23 17:01 50 mg BID.WITH.MEALS [facility] Administration Heparin Sodium (Porcine) 5,000 unit 04/10/23 [...] oxycodone 5 mg Q6H, Tylenol and Voltaren lrcxri-vhz-yyhfp. ALFREDO-improving -BUN elevated to 43, Cr 1.21 [...] discharge Documented By: Selvin Bey MD 04/13/23 5019 Signed By: <Electronically signed by Selvin Bey MD> 04/13/23 1236 [facility] Work Phone: [phone]) 859-441211-05-2023 Consult note Author Mario Mayorga [facility] April 12, 2023 1:22pm Note Date/Time April 12, 2023 9 :40am [facility] [address] [place] [address] Pulmonology Consult Note Signed Patient: Albania Cesar MR#: [id number] : 1955 Acct:[id number] Age/Sex: 67 / F Adm Date: 3 Loc: 4C Room: 6X6443-8 Type: ADM IN Attending Dr: Malorie Nathan [...] care medicine management. Patient was admitted through the on April 10 with chronic lymphedema who [...] and had been treated with autotitratingCPAP of [id number]. Review of Systems Review of Systems Unobtainable due to mental status [facility] Medical History (Updated 04/12/23 @ 09:39 by [...] support. Documented By: Mario Mayorga MD 3 0846 Signed By: <Electronically signed by MD Mario Mayorga> 04/12/23 8458 [facility] Work Phone: 1([phone]) 248-812911-05-2023 Progress note Author Malorie Nathan [facility] April 12, 2023 1:05pm Note Date/Time April 12, 2023 1 :05pm [facility] [address] [place] [address] Hospitalist Progress Note Signed Patient: Albania Cesar MR#: [id number] : 1955 Acct:[id number] Age/Sex: 67 / F Adm Date: 3 Loc: Room: [address] [place] [address] Type: ADM IN Attending Dr: Malorie Nathan [...] mg every 6 hours, Tylenol and Voltaren ekcqgl-dlo-zkzud ALFREDO Kidney function improved, continue to monitor [...] <Electronically signed by Malorie Nathan MD> 04/12/23 0294 [facility] Work Phone: [phone]) 326-654211-04-2023 Progress note Author Malorie Nathan [facility] April 11, 2023 12:16pm Note Date/Time April 11, 2023 1 2:16pm [facility] [address] [place] [address] Hospitalist Progress Note Signed Patient: Albania Cesar MR#: [id number] : 1955 Acct:[id number] Age/Sex: 67 / F Adm Date: 3 Loc: Room: [address] [place] [address] Type: ADM IN Attending Dr: Malorie Nathan [...] 6 hours as needed, Tylenol and Voltaren uzmwbv-sbq-wnhha ALFREDO -BUN elevated to 43, Cr 1.21 [...] <Electronically signed by Malorie Nathan MD> 04/11/23 [facility] Work Phone: 1(449) 998-132711-04-2023 Progress note Author Laith Monte [facility] April 11, 2023 8:54am Note Date/Time April 11, 2023 8 :55am [facility] [address] [place] [address] Event Note Signed Patient: Albanai Cesar MR#: [id number] : 1955 Acct:[id number] Age/Sex: 67 / F Adm Date: 3 Loc: Room: [address] [place] [address] Type: ADM IN Attending Dr: Malorie Nathan [...] signed by Laith Monte DO> 04/11/23 0854 [facility] Work Phone: 1(370) 992-699111-03-2023 History and physical note Author Neeraj Farrell [facility] April 10, 2023 4:36pm Note Date/Time April 10, 2023 4 :36pm [facility] [address] [place] [address] Hospitalist H&P Signed Patient: Albania Cesar MR#: [id number] : 1955 Acct:[id number] Age/Sex: 67 / F Adm Date: 3 Loc: Room: [address] [place] [address] Type: ADM IN Attending Dr: Neeraj Farrell [...] and treatment. Patient is also following at [place] regarding lymphedema and appears to be getting [...] constipation, diarrhea : Denies dysuria, hematuria, polyuria. [facility] Medical History (Updated 04/10/23 @ 16:34 by [...] % (Auto) 3.2 % (.) 04/10/23 10:20 [place] % (Auto) 5.0 % (.) 04/10/23 10:20 Eos % (Auto) 1.0 % (.) 04/10/23 10:20 Baso % (Auto) 0.5 % (.) 04/10/23 10:20 Nucleat RBC Rel Count 0.1 /100 WBC (0-0.5) 04/10/23 10:20 Neut # (Auto) 11.7 x10E3/uL (1.8-7.7) H 04/10/23 10:20 Lymph # (Auto) 0.4 x10E3/uL (1.00-4.8) L 04/10/23 10:20 [place] # (Auto) 0.6 x10E3/uL (0.0-0.8) 04/10/23 10:20 [...] pH 6.0 (5.0-9.0) 04/10/23 10:28 Ur Specific [place] 1.034 (1.001-1.030) H 04/10/23 10:28 Urine Protein [...] <Electronically signed by Neeraj Farrell MD> 04/10/23 1631 [facility] Work Phone: 1([phone]) 809-797909-19-2023 Evaluation note* Encounter Date Diagnosis Assessment Notes [...] Consider returning to ID or lymphedema clinic [place] [employer] Other 08-29-2023 Progress note Author Albino Saxena [facility] February 03, 2023 10:36am Note Date/Time February 03, 2023 10 :36am [facility] [address] [place] [address] Wound Center Provider Note Signed Patient: Albania Cesar MR#: [id number] : 1955 Acct:[id number] Age/Sex: 67 / F Copies to: MD [...] Intensity: 0 Wound/Ulcer History Mode of Arrival/ Hematology Technologist: Personal vehicle Assistive Device Used Today: Cane [...] Skin/Breast: Reports wounds Neurologic Neurologic: Denies syncope [facility] Medical History (Updated 02/03/23 @ 10:32 by [...] Left Lower Leg: Bed Appearance: Beefy Red, [place] and Yellow Percent of Wound Bed Granulated/Red: 50 Percent of Devitalized: 50 Length (cm): 23.0 Width (cm): 55.0 Depth (cm): 0.1 CM Sq: 1265.000 Surrounding Tissue Appearance: Bright Red, Macerated and Edematous Surrounding Tissue Temp: Warm Drainage Amount: Copious Drainage Description: Serous and Yellow Drainage Odor: No Odor Right Lower Medial Leg: Bed Appearance: Beefy Red, [place] and Yellow Percent of Wound Bed Granulated/Red: 50 Percent of Devitalized: 50 Length (cm): 13.5 Width (cm): 1.0 Depth (cm): 0.1 CM Sq: 13.500 Surrounding Tissue Appearance: [place], Macerated and Edematous Surrounding Tissue Temp: Warm Drainage Amount: Moderate Drainage Description: Serosanguineous Drainage Odor: No Odor Right Lower Lateral Leg: Bed Appearance: [place] and Yellow Percent of Wound Bed Granulated/Red: [...] signed by MD Albino Saxena> 02/03/23 1036 [facility] Work Phone: 1(176) 321-149608-15-2023 Evaluation note* Encounter Date Diagnosis Assessment Notes Treatment Notes Treatment Clinical Notes Jan, Venous insufficiency (chronic) (peripheral) (ICD-10 - I87.2) [employer] Other 08-14-2023 Evaluation note* Encounter Date Diagnosis Assessment Notes Treatment Notes Treatment Clinical Notes Jan, Venous insufficiency (chronic) (peripheral) (ICD-10 - I87.2) Followed by vascular surgery, scheduled for procedure upcoming. We will f/u with [employer] to help get her SCDs that she was fitted for as this likely would help control swelling. Jan, Breast cancer screening (ICD-10 - Z12.39) Jan, CHUCKIE (obstructive sleep apnea) (ICD-10 - G47.33) Rx written for new mask and supplies. Jan, Need for pneumococca l 20-valent conjugate vaccination (ICD-10 - Z23) [employer] Other 08-01-2023 Evaluation note* Encounter Date Diagnosis Assessment Notes Treatment Notes Treatment Clinical Notes Jan, Venous insufficiency (chronic) (peripheral) (ICD-10 - I87.2) [employer] Other 07-24-2023 Evaluation note* Encounter Date Diagnosis [...] leg with unspecified severity (ICD-10 - L97.929) [employer] Other 12-30-2021 Evaluation note* Encounter Date Diagnosis [...] Patient care instructions given in writting by [facility] document [email or web address] Other Evaluation noteNo assessment information available [facility] Work Phone: Evaluation note* Diagnosis Onset Date Resolution Status Elevated blood pressure reading acute Inflammation chronic Leg ulcer, left chronic Lymphedema chronic Obese chronic Wound pain chronic [facility] Work Phone: Evaluation note* Diagnosis Onset Date Resolution Status Elevated blood pressure reading acute Hyperkeratosis chronic Hyperpigmentation chronic Inflammation chronic Leg ulcer, left chronic Lymphedema chronic Nonadherence to medical treatment chronic Obese chronic Wound pain chronic [facility] Work Phone: Evaluation noteNo InformationNortMage[facility] [employer] Other Evaluation note* Diagnosis Onset Date Resolution Status Elevated blood pressure reading acute Hyperkeratosis chronic Hyperpigmentation chronic Inflammation chronic Leg ulcer, left chronic Lymphedema chronic Nonadherence to medical treatment chronic Obese chronic Wound pain chronic Cellulitis of left leg acute Ulcer of right leg acute Leg ulcer, left chronic Lymphedema chronic [facility] Work Phone: Evaluation note* Diagnosis Onset Date Resolution Status Cellulitis of left leg acute Ulcer of right leg acute Leg ulcer, left chronic Lymphedema chronic [facility] Work Phone: Evaluation note* Diagnosis Onset Date Resolution Status Cellulitis of left leg acute Ulcer of right leg acute Leg ulcer, left chronic Lymphedema chronic ALFREDO (acute kidney injury) ac unga Bilateral leg pain acute Bilateral lower leg cellulitis acute Cellulitis acute Hyponatremia acute Metabolic acidosis acute Ulcer of left lower leg acut e Ulcer of right leg acute UTI (urinary tract infection) acute Inflammation chronic Lymphedema chronic [facility] Work Phone: Evaluation note* Diagnosis Onset Date Resolution Status Cellulitis of left leg acute Ulcer of right leg acute Leg ulcer, left chronic Lymphedema chronic Acute respiratory acidosis a cute ALFREDO (acute kidney injury) ac unga Bilateral lower leg cellulitis acute Cellulitis acute CHF (congestive heart failure) acute Elevated liver enzymes acute Hypokalemia acute Hyponatremia acute Hypophosphatemia acute Hypoxia acute Infected wound acute Metabolic acidosis acute Superficial vein thrombosis acute Ulcer of left lower leg acut e Ulcer of right leg acute Inflammation chronic Lymphedema chronic Obese chronic [facility] Work Phone: [employer] general Narrative - Reported* Type Description Date Medical History CHUCKIE Medical History varicose veins Surgical History No know Surgical history Hospitalization History elevated BS, cellulitis [email or web address] Other [employer] general Narrative - Reported* Type Description Date Medical History CHUCKIE Medical History varicose veins Medical History cellulitis Medical History lymphedema Surgical History No know Surgical history Hospitalization History elevated BS, cellulitis [employer] Other [facility] general Narrative - Reported* Type Description Date Medical History CHUCKIE Medical History varicose veins Medical History cellulitis Medical History lymphedema Surgical History No Surgical history information Hospitalization History see above Hospitalization History BLE--cellulitis, lymphed ace [employer] Other Hospital Discharge instructions Additional Instructions Have IV antibiotics twice daily at an infusion center for 1 week.[facility] Work Phone: Hospital Discharge instructions Additional [...] the antibiotics you are currently on as directed.[facility] Work Phone: Hospital Discharge instructions Additional Instructions Follow-up with your primary care doctor Return to ED if develop worsening symptoms [facility] Work Phone: Summary Purpose Family History [...] bilateral lymphedema leg wounds BLE WOUNDS Infusion/Dr Carlson/ sugical consult Reason for Visit Elevated blood [...] section and content) DATE CREATED AUTHOR 12/02/2017 [facility] DATE CREATED AUTHOR AUTHOR'S ORGANIZ ATION 07/15/2023 [facility] REASON FOR VISIT (unrecogniz ed section and content) #12 JACKSON MALIBU, LOSS OF TAS TE, CONGESTION, FEVER, COUGHFR-ERNo InformationREFILLNo InformationEST PCPNo Informationchancre sore apptDISCUSS [id number] up from rehab needs to go over [...] Team Status: Inactive Member Role Status Dates Chon Valdez , DO Emergency Provider Active [...] Primary Care Provider Active Jhonatan Crowell , Emergency Provider Active Team Status: Inactive Member [...] Primary Care Provider Active Sarah Davey , CARAMEL CANDY MAKER- Emergency Provider Active Neeraj Farrell MD Admit Provider, Attending Provider Active Team Status: Inactive Member Role Status Dates Abimbola Bran , Primary Care Provider Active CLAUS Martin- Emergency Provider Active Neeraj Farrell MD Admit [...] BE BASED ON THE PRIMARY CLINICAL RECORDS. [employer] [facility]. provides no warranty or guarantee of the accuracy or completeness of information in this document.
== END 2023-10-15 16:06 | disposition home or self-care (01) ==
LOC: WC 16:06
PROVIDERS: PCP Radiology Diagnostic Radiology; Visit Provider Physician Assistant
DX: L84 Corns and callosities (principal); L99 Other disorders of skin and subcutaneous tissue in diseases classified elsewhere; I73.89 Other specified peripheral vascular diseases
CPT/HCPCS: G0463

== ENCOUNTER 2023-10-19 14:32 | Outpatient (OUT) | payer MEDICARE, OTHER, SELFPAY | END 2023-10-19 14:33 | disposition home or self-care (01) | LOC: WC 14:32 | PROVIDERS: PCP Radiology Diagnostic Radiology; Visit Provider Physician Assistant | DX: I87.313 Chronic venous hypertension (idiopathic) with ulcer of bilateral lower extremity (principal); L97.822 Non-pressure chronic ulcer of other part of left lower leg with fat layer exposed; L97.812 Non-pressure chronic ulcer of other part of right lower leg with fat layer exposed | CPT/HCPCS: G0463 ==

== ENCOUNTER 2023-10-22 13:47 | Outpatient (OUT) | payer MEDICARE, OTHER, SELFPAY | END 2023-10-22 13:48 | disposition home or self-care (01) | LOC: WC 13:47 | PROVIDERS: PCP Radiology Diagnostic Radiology; Visit Provider Physician Assistant | DX: R60.9 Edema, unspecified (principal); I87.313 Chronic venous hypertension (idiopathic) with ulcer of bilateral lower extremity; L97.822 Non-pressure chronic ulcer of other part of left lower leg with fat layer exposed; L97.812 Non-pressure chronic ulcer of other part of right lower leg with fat layer exposed | CPT/HCPCS: G0463 ==

== ENCOUNTER 2023-10-26 11:51 | Outpatient (OUT) | payer MEDICARE, OTHER, SELFPAY | END 2023-10-26 11:52 | disposition home or self-care (01) | LOC: WC 11:51 | PROVIDERS: PCP Radiology Diagnostic Radiology; Visit Provider Physician Assistant | DX: I87.313 Chronic venous hypertension (idiopathic) with ulcer of bilateral lower extremity (principal); L97.822 Non-pressure chronic ulcer of other part of left lower leg with fat layer exposed; L97.812 Non-pressure chronic ulcer of other part of right lower leg with fat layer exposed | CPT/HCPCS: G0463 ==

== ENCOUNTER 2023-10-29 15:54 | Outpatient (OUT) | payer MEDICARE, OTHER, SELFPAY | END 2023-10-29 15:55 | disposition home or self-care (01) | LOC: WC 15:54 | PROVIDERS: PCP Radiology Diagnostic Radiology; Visit Provider Physician Assistant | DX: I87.312 Chronic venous hypertension (idiopathic) with ulcer of left lower extremity (principal); L97.822 Non-pressure chronic ulcer of other part of left lower leg with fat layer exposed; I87.311 Chronic venous hypertension (idiopathic) with ulcer of right lower extremity; L97.812 Non-pressure chronic ulcer of other part of right lower leg with fat layer exposed | CPT/HCPCS: G0463 ==

== ENCOUNTER 2023-11-03 09:00 | Outpatient (OUT) | payer MEDICARE, OTHER, SELFPAY ==
--- OUTSIDE RECORDS SUMMARY | 2023-11-04 08:59 | XMS_ITS | CCD ---
Author Organization [facility] Care Team Providers Care Psychologist Military Personnel Name Role Phone CARL TY Unavailable Unavailable AILEEN PEPE ANDREW Unavailable Unavailab leonard Motta Shayla Unavailable NO FAMILY, PHYSICIAN Primary Care Provider Unava ilable ANTHONY Theodore Emergency Provider [phone] ANTHONY Theodore Attending Provider BRITNEY Jimenez Attending Provider [phone] DO Reji Rangel Attending Provider DO Jhonatan Crowell Emergency Provider [phone] DO Jhonatan Crowell Attending Provider [phone] DO Jhonatan Crowell Attending Provider BRITNEY Leon Attending Provider DO Reji Rangel Attending Provider MD Laith Warner Emergency Provider [phone] DO Reji Rangel Attending Provider MD Laith Warner Attending Provider [phone] DO Chon Valdez Emergency Provider DO Abimbola Bran Primary Care Provider Abimbola Bran Unavailable Laith Carlson Unavailable NO FAMILY, PHYSICIAN Primary Care Provider Unava ilable DO Reji Rangel Attending Provider MD Laith Carlson Attending Provider [phone] MD Albino Saxena Attending Provider [phone] NO FAMILY, PHYSICIAN Primary Care Provider Unava ilable Yina DO Abimbola A Primary Care Provider DO Riley Crowelled Efrain Emergency Provider [facility] Sarah E Emergency Provider MD Neeraj Farrell Admit Provider MD Neeraj Farrell Attending Provider Yina DO Abimbola A Primary Care Provider [phone] MD Laith Carlson Attending Provider MD Albino Saxena Attending Provider Mervat DO Jhonatan Zuniga Emergency Provider [phone] [facility] MD Neeraj Farrell Admit [...] Primary Care Unavailable Jhonatan Crowell Attending Unavailable Mervat Jhonatan M Admitting Unavailable NO FAMILY, PHYSICIAN Primary Care Unavailable Reji Rangel Attending Unavailable Reji Rangel Admitting Unavailable ObarieleyEvelyn sommer Attending Unavailable Evelyn Leon Admitting Unavailable NO FAMILY, PHYSICIAN Primary Care Unavailable Riley Crowelled M Attending Unavailable Mervat, Jhonatan M Admitting Unavailable Bran, Abimbola A Primary Care Unavailable Bran, Abimbola A Primary Care Unavailable Chon Valdez Attending Unavailable Chon Valdez Admitting Unavailable Laith Warner Attending Unavailable Laith Warner Admitting Unavailable NO FAMILY, PHYSICIAN Primary Care Unavailable NO FAMILY, PHYSICIAN Primary Care Unavailable Jhonatan Crowell M Attending Unavailable Jhonatan Crowell M Admitting Unavailable Gerald Theodore Attending Unavailable [...] Orally every 8 hrs for 30 days [facility] Apr, Active acetaminophen 325 mg / oxyCODONE [...] Laxative Start: 04-17-2023 Bisacodyl Active 10 MG [place] Daily 0 April 17, 2023 12:00am brompheniramine maleate 0.4 mg/ml / dextromethorphan hydrobromide 2 mg/ml / pseudoephedrine hydrochloride 6 mg/ml oral solution (2 sources) alpha-Adrenergic Agonist, Uncompetitive A-zcumsl-E-aspartat e Receptor Antagonist, Sigma-1 Agonist Start: 06-06-2021 [...] capsule with food Orally Once a day [facility] Apr, Active Start: 04-16-2023 take 100 mg [...] MG/0.4ML 0.3 mL Injection Once a day [facility] Apr, Active ertapenem 1000 mg injection (2 [...] Orally every 4 hrs for 14 days [facility] Jun, Active Start: 04-16-2023 take 1 tablet by estuardo th every four hours oxyCODONE HCl 5 MG 1 tablet as needed Orally every 4 hrs [facility] Apr, Active Start: 04-16-2023 take 2.5 mg by mouth every four hours Oxycodone Active 2.5 MG PO Every 4 hours 03 12April 16, 2023 polyethylene glycol 3350 63594 mg powder for oral solution (1 source) Osmotic Laxative Start: 04-17-2023 Polyethylene Glycol 3350 (Healthylax) 17 gram Powder In Packet Active 17 GM PO Daily April 17, 2023 9:43am pregabalin 75 mg oral capsule (6 sources) Start: 06-09-2023 take 1 capsule by mouth every eight hours Pregabalin 75 MG 1 capsule Orally three times a day for 90 days [facility] Jun, Active Start: 04-16-2023 take 1 capsule by mo ut every twelve hours Pregabalin 50 MG 1 capsule Orally Twice a day [facility] Apr, Active Sennosides (Senokot) 8.6 mg tablet [...] Start: 02-24-2023 take 1 capsule by mo [facility] every eight hours Gabapentin 300 MG [...] aPTT Coag (PPP) [Time] 32.5 s 25.1-36.5 [facility] Comment on above: A hematocrit value g reater than 55% may lead to inaccurate results in coagulation testing. Patients having hematocrit values >55% require a special collection tube for coagulation studies. Please contact the laboratory at [phone] for redraw instructions. Alanine aminotransferase [En zymatic activity/volume] in Serum or PlasmaOrdered By: Selvin Bey on 04-15-2023 ALT [Catalytic activity/Vol] 118 U/L 7-52 [facility] Albumin [Mass/volume] in Ser um or Plasma by Bromocresol green (BCG) dye binding methoOrdered By: Selvin Bey on 04-15-2023 Albumin BCG dye [Mass/Vol] 3.3 g/dL 3.5-5.7 [facility] Alkaline phosphatase [Enzyma tic activity/volume] in Serum or PlasmaOrdered By: Selvin Bey on 04-15-2023 ALP [Catalytic activity/Vol] 77 U/L 34-104 [facility] Aspartate aminotransferase [ Enzymatic activity/volume] in Serum or PlasmaOrdered By: Selvin Bey on 04-15-2023 AST [Catalytic activity/Vol] 48 U/L 13-39 [facility] Bilirubin.direct [Mass/volum e] in Serum or PlasmaOrdered By: Selvin Bey on 04-15-2023 Bilirubin.direct [Mass/Vol] 0.10 mg/dL 0.03-0.18 [facility] Bilirubin.total [Mass/volume ] in Serum or PlasmaOrdered By: Selvin Bey on 04-15-2023 Bilirubin [Mass/Vol] 0.5 mg/dL 0.3-1.0 [facility] C reactive protein [Mass/vol ume] in Serum or PlasmaOrdered By: Laith Carlson on 04-15-2023 CRP [Mass/Vol] 3.1 mg/dL 0.0-0.5 [facility] C-Reactive Proteinon 023 C-Reactive Protein 3.1 mg/dL High 0.0-0.5 [facility] Comment on above: Result Comment: PERF ORMED BY: [place] [address] PATHOLOGIST MELTER SUPERVISOR ELECTRIC ARC FURNACE IAN ACE M.D. Performed By: #### C UBLD, CMP, CBC #### [facility] [address] [place] [address] Globulin Calc (S) [Mass/Vol] Ordered By: Selvin Bey on 04-15-2023 Globulin (S) [Mass/Vol] 4.3 g/dL [facility] Hepatic Panelon 04-15-2023 Albumin [Mass/Vol] 3.3 g/dL Low 3.5-5.7 [facility] Comment on above: Performed By: #### C UBLD, CMP, CBC #### [facility] [address] Albumin/Globulin [Mass ratio] 0.8 {ratio} Normal [facility] Comment on above: Performed By: #### C UBLD, CMP, CBC #### [facility] [address] ALP [Catalytic activity/Vol] 77 U/L Normal 34-104 [facility] Comment on above: Performed By: #### C UBLD, CMP, CBC #### [facility] [address] [place] [id number] [facility] ALT [Catalytic activity/Vol] 118 U/L High 7-52 [facility] Comment on above: Performed By: #### C UBLD, CMP, CBC #### [facility] [address] Aspartate Amino Transferase Normal 13-39 [facility] Comment on above: Result Comment: Spec imen hemolyzed, redraw requested Performed By: #### C UBLD, CMP, CBC #### [facility] [address] Bilirubin [Mass/Vol] 0.5 mg/dL Normal 0.3-1.0 [facility] Comment on above: Performed By: #### C UBLD, CMP, CBC #### [facility] [address] [place] [address] [place] Bilirubin,Direct Normal 0.03-0.18 [facility] Comment on above: Result Comment: Spec imen hemolyzed, redraw requested Performed By: #### C UBLD, CMP, CBC #### [facility] [address] [place] [address] [place] Bilirubin,Indirect Not performed Normal [facility] Comment on above: Performed By: #### C UBLD, CMP, CBC #### [facility] [address] [place] [address] [place] Globulin (S) [Mass/Vol] 4.3 g/dL Normal [facility] Comment on above: Performed By: #### C UBLD, CMP, CBC #### [facility] [address] Protein [Mass/Vol] 7.6 g/dL Normal 6.4-8.9 [facility] Comment on above: Performed By: #### C ALEXX RAND, CBC #### [facility] [address] [place] [id number] [place] INR in Platelet poor plasma by Coagulation assayOrdered By: Laith Carlson on 04-15-2023 INR Coag (PPP) [Relative time] 1.0 {INR} [facility] Comment on above: INR Therapeutic Rang [...] Coag (Bld) [Time] 32.5 s Normal 25.1-36.5 [facility] Comment on above: Result Comment: A he matocrit value greater than 55% may lead to inaccurate results in coagulation testing. Patients having hematocrit values >55% require a special collection tube for coagulation studies. Please contact the laboratory at [phone] for redraw instructions. PERFORMED BY: [place] [address] PATHOLOGIST MELTER SUPERVISOR ELECT[employer] FURNACE IAN ACE M.D. Performed By: #### C ALEXX RAND, CBC #### [facility] [address] [place] [address] [place] Phosphate [Mass/volume] in S mairvel or PlasmaOrdered By: Selvin Bey on 04-15-2023 Phosphate [Mass/Vol] 3.2 mg/dL 2.5-4.5 [facility] Phosphoruson 04-15-2023 Phosphate [Mass/Vol] 3.2 mg/dL Normal 2.5-4.5 [facility] Comment on above: Result Comment: PERF ORMED BY: [place] [address] PATHOLOGIST MELTER SUPERVISOR [employer] FURNACE IAN ACE M.D. Performed By: #### C UBPREMA, CMP, CBC #### [facility] [address] [place] [address] [facility] Protein [Mass/volume] in Ser um or PlasmaOrdered By: Selvin Bey on 04-15-2023 Protein [Mass/Vol] 7.6 g/dL 6.4-8.9 [facility] Prothrombin Time INRon 04-15 INR Coag (PPP) [Relative time] 1.0 {INR} Normal [facility] Comment on above: Result Comment: INR [...] By: #### C UBLD, CMP, CBC #### [facility] [address] [place] [id number] [facility] PT Coag (PPP) [Time] 11.9 s Normal 9.0-12.9 [facility] Comment on above: Result Comment: A he matocrit value greater than 55% may lead to inaccurate results in coagulation testing. Patients having hematocrit values >55% require a special collection tube for coagulation studies. Please contact the laboratory at [phone] for redraw instructions. Performed By: #### C UBLD, CMP, CBC #### [facility] [address] [place] [address] [place] Prothrombin time (PT)Ordered By: Laith Carlson on 04-15-2023 PT Coag (PPP) [Time] 11.9 s 9.0-12.9 [facility] Comment on above: A hematocrit value g reater than 55% may lead to inaccurate results in coagulation testing. Patients having hematocrit values >55% require a special collection tube for coagulation studies. Please contact the laboratory at [phone] for redraw instructions. Redraw Renaldo 04-15-2023 AST [Catalytic activity/Vol] 48 U/L High 13-39 [facility] Comment on above: Result Comment: PERF ORMED BY: [address] [address] PATHOLOGIST MELTER SUPERVISOR [employer] FURNACE IAN ACE M.D. Performed By: #### C UBLD, CMP, CBC #### [facility] [address] Redraw Bilirubin,Directon Redraw Bilirubin,Direct 0.10 mg/dL Normal 0.03-0.18 [facility] Comment on above: Performed By: #### R EDRAW AST, REDRAW DBIL #### [facility] [address] [place] [address] Serum or plasma albumin/glob ulin mass ratioOrdered By: Selvin Bey on 04-15-2023 Albumin/Globulin [Mass ratio] 0.8 {ratio} [facility] Serum or plasma non-glucuron idated bilirubin measurement (mass/volume)Ordered By: Selvin Bey on 04-15-2023 Bilirubin.indirect [Mass/Vol] TNP [facility] Comment on above: Test not performed US abdomen limitedon 023 US abdomen limited [facility] [place] [address] [place] [address] Ultrasound Report Signed Patient: [place] Cesar MR#: [id number] : 1955 Acct:[id number] Age/Sex: 67 / F ADM Date: 04/10/23 Loc: Room: [address] [place] [address] Type: ADM IN Attending Dr: Selvin Bey [...] Padmini Bethea M.D.04/15/2023 10:01 AM Dictation Location: [place] [address] Tech: Elyse Hart Transcribed By: MARIA VICTORIA 04/15/23 1001 Dictated By: Padmini Bethea MD 04/15/23 0959 Signed By: 04/15/[address] [facility] Anisocytosis LM Ql (Bld)Orde red By: Selvin Bey on 04-14-2023 Anisocytosis Ql (Bld) Slight Fir [facility] Band form neutrophils/100 WB C Manual cnt (Bld)Ordered By: Selvin Bey on 04-14-2023 Band form neutrophils/100 WBC (Bld) 2 % 0-5 [facility] Basophils Auto (Bld) [#/Vol] Ordered By: Selvin Bey on 04-14-2023 Basophils (Bld) [#/Vol] N/A [facility] Basophils/100 WBC Auto (Bld) Ordered By: Selvin Bey on 04-14-2023 Basophils/100 WBC (Bld) N/A [facility] Basophils/100 WBC Manual cnt (Bld)Ordered By: Selvin Bey on 04-14-2023 Basophils/100 WBC (Bld) 1 % 0-2 [facility] Calcium [Mass/volume] in Ser um or PlasmaOrdered By: Selvin Bey on 04-14-2023 Calcium [Mass/Vol] 9.4 mg/dL 8.6-10.3 [facility] Carbon dioxide, total [Moles /volume] in Serum or PlasmaOrdered By: Selvin Bey on 04-14-2023 CO2 [Moles/Vol] 20.5 mmol/L 21.0-31.0 [facility] Chloride [Moles/volume] in S marivel or PlasmaOrdered By: Selvin Bey on 04-14-2023 Chloride [Moles/Vol] 102 mmol/L 98-107 [facility] Comprehensive Metabolic Pane jeremy 04-14-2023 Albumin [Mass/Vol] 3.3 g/dL Low 3.5-5.7 [facility] Comment on above: Performed By: #### C UBLD, CMP, CBC #### [facility] [address] Albumin/Globulin [Mass ratio] 0.8 {ratio} Normal [facility] Comment on above: Performed By: #### C UBLD, CMP, CBC #### [facility] [address] ALP [Catalytic activity/Vol] 82 U/L Normal 34-104 [facility] Comment on above: Performed By: #### C UBLD, CMP, CBC #### [facility] [address] ALT [Catalytic activity/Vol] 150 U/L High 7-52 [facility] Comment on above: Performed By: #### C UBLD, CMP, CBC #### [address] Anion gap [Moles/Vol] 11.3 mmol/L Normal 6.0-15.0 [facility] Comment on above: Performed By: #### C UBLD, CMP, CBC #### [address] AST [Catalytic activity/Vol] 79 U/L High 13-39 [facility] Comment on above: Performed By: #### C UBLD, CMP, CBC #### [facility] [address] Bilirubin [Mass/Vol] 0.4 mg/dL Normal 0.3-1.0 [facility] Comment on above: Performed By: #### C UBLD, CMP, CBC #### [facility] [address] [place] [address] Calcium [Mass/Vol] 9.4 mg/dL Normal 8.6-10.3 [facility] Comment on above: Performed By: #### C UBLD, CMP, CBC #### [facility] [address] [place] [address] [place] Chloride [Moles/Vol] 102 mmol/L Normal 98-107 [facility] Comment on above: Performed By: #### C ALEXX RAND, CBC #### [facility] [address] CO2 [Moles/Vol] 20.5 mmol/L Low 21.0-31.0 [facility] Comment on above: Performed By: #### C UBPREMA CMP, CBC #### [address] Creatinine [Mass/Vol] 0.86 mg/dL Normal 0.60-1.20 [facility] Comment on above: Performed By: #### C ALEXX RAND, CBC #### [address] Creatinine Clr Calc Pharmacy 87.[address] [facility] Comment on above: Performed By: #### C ALEXX RAND, CBC #### [address] GFR/1.73 sq M.predicted MDRD (S/P/Bld) [Vol rate/Area] mL/min/{1.73_m2} [facility] Comment on above: Performed By: #### C ALEXX RAND, CBC #### [address] Globulin (S) [Mass/Vol] 4.0 g/dL [facility] Comment on above: Performed By: #### C UBALEXX LLOYD, CBC #### [address] Glucose [Mass/Vol] 108 mg/dL High 70-100 [facility] Comment on above: Result Comment: [place] Glucose Reference Range is dependent on time and content of last meal. Glucose of more than 200 mg/dL in a nonstressed, ambulatory subject supports the diagnosis of Diabetes Mellitus. ADA recommended reference range Performed By: #### C UBLD CMP, CBC #### [address] Potassium [Moles/Vol] 3.8 mmol/L Normal 3.5-5.1 [facility] Comment on above: Performed By: #### C UBLD, CMP, CBC #### [facility] [address] Protein [Mass/Vol] 7.3 g/dL Normal 6.4-8.9 [facility] Comment on above: Performed By: #### C UBLD, CMP, CBC #### [facility] [address] [place] [address] [place] Sodium [Moles/Vol] 130 mmol/L Low 136-145 [facility] Comment on above: Performed By: #### C UBLD, CMP, CBC #### [facility] [address] Urea nitrogen [Mass/Vol] 37 mg/dL High 7-25 [facility] Comment on above: Performed By: #### C UBLD, CMP, CBC #### [facility] [address] [place] [address] [place] Creatinine [Mass/volume] in Serum or PlasmaOrdered By: Selvin Bey on 04-14-2023 Creatinine [Mass/Vol] 0.86 mg/dL 0.60-1.20 [facility] Diff and CBCon 04-14-2023 Anisocytosis Ql (Bld) Slight Normal [facility] Comment on above: Performed By: #### C UBLD, CMP, CBC #### [facility] [address] [place] [address] [place] Band form neutrophils/100 WBC (Bld) 2 % Normal 0-5 [facility] Comment on above: Performed By: #### C UBLD, CMP, CBC #### [facility] [address] [place], [place] [id number] [place] Basophils/100 WBC (Bld) 1 % Normal 0-2 [facility] Comment on above: Performed By: #### C UBLD, CMP, CBC #### [facility] [address] [place] [address] [place] Eosinophils/100 WBC (Bld) 3 % Normal 1-3 [facility] Comment on above: Performed By: #### C UBLD, CMP, CBC #### [facility] [address] Erythrocyte distribution width (RBC) [Ratio] 16.9 % High 11.9-15.3 [facility] Comment on above: Performed By: #### C UBLD, CMP, CBC #### [facility] [address] Giant Platelet Tally 2 /100{WBC} Normal Fir [facility] Comment on above: Performed By: #### C UBLD, CMP, CBC #### [address] Hematocrit (Bld) [Volume fraction] 36.0 % Normal 34.0-46.4 [facility] Comment on above: Performed By: #### C UBLD, CMP, CBC #### [address] Hemoglobin (Bld) [Mass/Vol] 11.5 g/dL Low 11.8-15.4 [facility] Comment on above: Performed By: #### C UBLD, CMP, CBC #### [address] Lymphocytes/100 WBC (Bld) 13 % Low 18-42 [facility] Comment on above: Performed By: #### C UBLD, CMP, CBC #### [address] MCH (RBC) [Entitic mass] 26.0 pg Normal 24.7-34.3 [facility] Comment on above: Performed By: #### C UBLD, CMP, CBC #### [address] MCV (RBC) [Entitic vol] 81.0 fL Normal 80-100 [facility] Comment on above: Performed By: #### C UBLD, CMP, CBC #### [address] Mean Corpuscular HGB Conc 32.1 g/dL Normal 32.0-35.0 [facility] Comment on above: Performed By: #### C UBLD, CMP, CBC #### [place] [address] [place] Metamyelocytes 3 % High 0-0 [facility] Comment on above: Performed By: #### C UBLD, CMP, CBC #### [place] [address] [place] Microcytosis Slight Normal [facility] Comment on above: Performed By: #### C UBLD, CMP, CBC #### [place] [address] [place] Monocytes/100 WBC (Bld) 8 % Normal 2-11 [facility] Comment on above: Performed By: #### C UBLD, CMP, CBC #### [address] Nucleated Red Blood Cell 2 /100{WBC} High 0-0 [facility] Comment on above: Performed By: #### C UBLD, CMP, CBC #### [address] Platelet Estimate Increased Normal Normal [facility] Comment on above: Performed By: #### C UBLD, CMP, CBC #### [place] [address] [place] Platelet mean volume (Bld) [Entitic vol] 7.0 fL Normal 6.3-10.7 [facility] Comment on above: Result Comment: PERF ORMED BY: [place] [address] PATHOLOGIST MELTER SUPERVISOR E[employer] FURNACE IAN ACE M.D. Performed By: #### C UBLD, CMP, CBC #### [address] Platelet Morphology Normal Normal Normal [facility] Comment on above: Result Comment: PERF ORMED BY: [place] [address] PATHOLOGIST MELTER SUPERVISOR [employer] FURNACE IAN ACE M.D. Performed By: #### C UBLD, CMP, CBC #### [place] [id number] [place] Platelets (Bld) [#/Vol] 457 10*3/uL High 150-450 [facility] Comment on above: Performed By: #### C UBLD, CMP, CBC #### [address] Polychromasia Slight Normal [facility] Comment on above: Performed By: #### C UBLD, CMP, CBC #### [facility] [address] [place] [address] RBC (Bld) [#/Vol] 4.44 10*6/uL Normal 3.60-5.00 [facility] Comment on above: Performed By: #### C UBLD, CMP, CBC #### [address] Segmented neutrophils/100 WBC (Bld) 71 % High 50-70 [facility] Comment on above: Performed By: #### C UBLD, CMP, CBC #### [address] WBC (Bld) [#/Vol] 6.5 10*3/uL Normal 3.8-11.6 [facility] Comment on above: Performed By: #### C UBLD, CMP, CBC #### [address] Eosinophils Auto (Bld) [#/Vo l]Ordered By: Selvin Bey on 04-14-2023 Eosinophils (Bld) [#/Vol] N/A [facility] Eosinophils/100 WBC Auto (Bl d)Ordered By: Selvin Bey on 04-14-2023 Eosinophils/100 WBC (Bld) N/A [facility] Eosinophils/100 WBC Manual c nt (Bld)Ordered By: Selvin Bey on 04-14-2023 Eosinophils/100 WBC (Bld) 3 % 1-3 [facility] Erythrocyte distribution wid th Auto (RBC) [Ratio]Ordered By: Selvin Bey on 04-14-2023 Erythrocyte distribution width (RBC) [Ratio] 16.9 % 11.9-15.3 [facility] Giant platelets/100 leukocyt es [Ratio] in Blood by Manual countOrdered By: Selvin Bey on 04-14-2023 Giant platelets/100 WBC Manual cnt (Bld) [Ratio] 2 /100{WBC} [facility] Glucose [Mass/volume] in Ser um or PlasmaOrdered By: Selvin Bey on 04-14-2023 Glucose [Mass/Vol] 108 mg/dL 70-100 [facility] Comment on above: ADA recommended refe rence rangeRandom Glucose Reference Range is dependent on time and content of last meal. Glucose of more than 200 mg/dL in a nonstressed, ambulatory subject supports the diagnosis of Diabetes Mellitus. Hematocrit Auto (Bld) [Volum e fraction]Ordered By: Selvin Bey on 04-14-2023 Hematocrit (Bld) [Volume fraction] 36.0 % 34.0-46.4 [facility] Hemoglobin [Mass/volume] in BloodOrdered By: Selvin Bey on 04-14-2023 Hemoglobin (Bld) [Mass/Vol] 11.5 g/dL 11.8-15.4 [facility] Hepatitis Acute Panelon 11-0 HBsAg Screen Negative Normal Negative [facility] Comment on above: Performed By: #### L ACTIC, CMP, CBC #### [facility] [address] [place] [address] Hepatitis A Antibody IgM Negative Normal Negative [facility] Comment on above: Performed By: #### L ACTIC, CMP, CBC #### [facility] [address] [place] [address] Hepatitis B Core Antibody IgM Negative Normal Negative [facility] Comment on above: Performed By: #### L ACTIC, CMP, CBC #### [facility] [address] [place] [address] Hepatitis C Virus Antibody Non-Reactive Normal Non Reactive [facility] Comment on above: Performed By: #### L ACTIC, CMP, CBC #### [facility] [address] [place] [address] Interpretation Hepatitis C Normal . [facility] Comment on above: Result Comment: Not infected with HCV unless early or acute infection is suspected (which may be delayed in an immunocompromised individual), or other evidence exists to indicate HCV infection. Performed at: - [facility] [id number] [employer] Specialist: Mohsen Mccarthy PhD, Phone: [phone] PERFORMED BY: [place] [address] PATHOLOGIST MELTER SUPERVISOR [employer] FURNACE IAN ACE M.D. Performed By: #### L ACTIC, CMP, CBC #### [address] Hepatitis B virus surface Ag [Presence] in Serum or Plasma by ImmunoassayOrdered By: Selvin Bey on 04-14-2023 HBV surface Ag IA Ql Negative Negative [facility] Hepatitis C virus IgG Ab [Pr esence] in Serum or Plasma by ImmunoassayOrdered By: Selvin Bey on 04-14-2023 HCV IgG IA Ql Non-Reactive Non Reactive [facility] Hepatitis C virus RNA [Units /volume] (viral load) in Serum or Plasma by JUJU with probOrdered By: Selvin Bey on 04-14-2023 HCV RNA JUJU+probe Qn N/A [facility] Hepatitis C virus RNA [log u nits/volume] (viral load) in Serum or Plasma by JUJU withOrdered By: Selvin Bey on 04-14-2023 HCV RNA JUJU+probe [Log units/Vol] N/A [facility] Leukocytes [#/volume] correc julia for nucleated erythrocytes in Blood by Automated counOrdered By: Selvin Bey on 04-14-2023 WBC corrected for nucl RBC Auto (Bld) [#/Vol] 6.5 10*3/uL 3.8-11.6 [facility] Lymphocytes Auto (Bld) [#/Vo l]Ordered By: Selvin Bey on 04-14-2023 Lymphocytes (Bld) [#/Vol] N/A [facility] Lymphocytes/100 WBC Auto (Bl d)Ordered By: Selvin Bey on 04-14-2023 Lymphocytes/100 WBC (Bld) N/A [facility] Lymphocytes/100 WBC Manual c nt (Bld)Ordered By: Selvin Bey on 04-14-2023 Lymphocytes/100 WBC (Bld) 13 % 18-42 [facility] MCH Auto (RBC) [Entitic mass ]Ordered By: Selvin Bey on 04-14-2023 MCH (RBC) [Entitic mass] 26.0 pg 24.7-34.3 [facility] MCHC Auto (RBC) [Mass/Vol]Or dered By: Selvin Bey on 04-14-2023 MCHC (RBC) [Mass/Vol] 32.1 g/dL 32.0-35.0 [facility] MCV Auto (RBC) [Entitic vol] Ordered By: Selvin Bey on 04-14-2023 MCV (RBC) [Entitic vol] 81.0 fL 80-100 [facility] Magnesiumon 04-14-2023 Magnesium [Mass/Vol] 2.3 mg/dL Normal 1.9-2.7 [facility] Comment on above: Result Comment: PERF ORMED BY: [place] [address] PATHOLOGIST MELTER SUPERVISOR [employer] FURNACE IAN ACE M.D. Performed By: #### C UBLD, CMP, CBC #### [address] Magnesium [Mass/volume] in S marivel or PlasmaOrdered By: Selvin Bey on 04-14-2023 Magnesium [Mass/Vol] 2.3 mg/dL 1.9-2.7 [facility] Metamyelocytes/100 WBC Manua l cnt (Bld)Ordered By: Selvin Bey on 04-14-2023 Metamyelocytes/100 WBC (Bld) 3 % 0-0 [facility] Microcytes LM Ql (Bld)Ordere d By: Selvin Bey on 04-14-2023 Microcytes Ql (Bld) Slight [facility] Monocytes Auto (Bld) [#/Vol] Ordered By: Selvin Bey on 04-14-2023 Monocytes (Bld) [#/Vol] N/A [facility] Monocytes/100 WBC Auto (Bld) Ordered By: Selvin Bey on 04-14-2023 Monocytes/100 WBC (Bld) N/A [facility] Monocytes/100 WBC Manual cnt (Bld)Ordered By: Selvin Bey on 04-14-2023 Monocytes/100 WBC (Bld) 8 % 2- [facility] Neutrophils Auto (Bld) [#/Vo l]Ordered By: Selvin Bey on 04-14-2023 Neutrophils (Bld) [#/Vol] N/A [facility] Neutrophils/100 WBC Auto (Bl d)Ordered By: Selvin Bey on 04-14-2023 Neutrophils/100 WBC (Bld) N/A [facility] No Panel InformationOrdered By: Selvin Bey on 04-14-2023 Hepatitis A IgM Antibody Negative Negative [facility] Hepatitis B Core IgM Antibody Negative Negative [facility] Hepatitis C Interpretation See comment . [facility] Comment on above: Not infected with HC V unless early or acute infection issuspected (which may be delayed in an immunocompromisedindividual), or other evidence exists to indicate HCVinfection.Performed at: [facility] [address] Director: Mohsen Mccarthy PhD, Phone: [phone] Estimated GFR (CKD-EPI) > 60.0 mL/Min [facility] Creatinine Clearance (Chem 87.48 [facility] Nucleated RBC/100 WBC Manual cnt (Bld) [Ratio]Ordered By: Selvin Bey on 04-14-2023 Nucleated RBC/100 WBC (Bld) [Ratio] 2 /100{WBC} 0-0 [facility] Nucleated erythrocytes [Pres ence] in Blood by Automated countOrdered By: Selvin Bey on 04-14-2023 Nucleated RBC Auto Ql (Bld) N/A [facility] Phosphoruson 04-14-2023 Phosphate [Mass/Vol] 2.6 mg/dL Low 3.7-7.2 [facility] Comment on above: Performed By: #### C UBLD, CMP, CBC #### [facility] [address] [place] [address] Platelet adequacy [Presence] in Blood by Light microscopyOrdered By: Selvin Bey on 04-14-2023 Platelets LM Ql (Bld) Increased Normal [facility] Platelet mean volume Auto (B ld) [Entitic vol]Ordered By: Selvin Bey on 04-14-2023 Platelet mean volume (Bld) [Entitic vol] 7.0 fL 6.3-10.7 [facility] Platelet morphology finding [Identifier] in BloodOrdered By: Selvin Bey on 04-14-2023 Platelet morphology finding Nom (Bld) Normal Normal [facility] Platelets Auto (Bld) [#/Vol] Ordered By: Selvin Bey on 04-14-2023 Platelets (Bld) [#/Vol] 457 10*3/uL 150-450 [facility] Polychromasia [Presence] in Blood by Light microscopyOrdered By: Selvin Bey on 04-14-2023 Polychromasia LM Ql (Bld) Slight [facility] Potassium [Moles/volume] in Serum or PlasmaOrdered By: Selvin Bey on 04-14-2023 Potassium [Moles/Vol] 3.8 mmol/L 3.5-5.1 [facility] RBC Auto (Bld) [#/Vol]Ordere d By: Selvin Bey on 04-14-2023 RBC (Bld) [#/Vol] 4.44 10*6/uL 3.60-5.00 [facility] RBC morphologyOrdered By: Ra taco Bey on 04-14-2023 RBC morphology finding Nom (Bld) N/A [facility] Segmented neutrophils/100 WB C Manual cnt (Bld)Ordered By: Selvin Bey on 04-14-2023 Segmented neutrophils/100 WBC (Bld) 71 % 50-70 [facility] Serum or plasma anion gap de terminationOrdered By: Selvin Bey on 04-14-2023 Anion gap [Moles/Vol] 11.3 mmol/L 6.0-15.0 [facility] Sodium [Moles/volume] in Ser um or PlasmaOrdered By: Selvin Bey on 04-14-2023 Sodium [Moles/Vol] 130 mmol/L 136-145 [facility] US venous duplex LE BIon US venous duplex LE BI [facility] [place] [address] Ultrasound Report Signed Patient: [place] Cesar MR#: [id number] : 1955 Acct:[id number] Age/Sex: 67 / F ADM Date: 04/10/23 Loc: Room: [address] [place] [address] Type: ADM IN Attending Dr: Selvin Bey [...] Du Zaragoza M.D.04/14/2023 11:07 AM Dictation Location: [place] [address] Tech: Hermelinda Knox Transcribed By: MARIA VICTORIA 04/14/23 110 Dictated By: Du Zaragoza MD 04/14/23 1106 Signed By: 04/14/[address] [facility] Urea nitrogen [Mass/volume] in Serum or PlasmaOrdered By: Selvin Bey on 04-14-2023 Urea nitrogen [Mass/Vol] 37 mg/dL 7 [facility] Vancomycin,Troughon 11-07-20 23 Vancomycin,Trough 16.7 ug/mL Normal 10.0-20.0 [facility] Comment on above: Result Comment: Last dose: - PERFORMED BY: [place] [address] PATHOLOGIST MELTER SUPERVISOR [employer] FURNACE IAN ACE M.D. Performed By: #### C UBLD, CMP, CBC #### [address] WBC Auto (Bld) [#/Vol]Ordere d By: Selvin Bey on 04-14-2023 WBC (Bld) [#/Vol] 6.5 10*3/uL 3.8-11.6 [facility] Basic Metabolic Panelon Anion gap [Moles/Vol] 11.7 mmol/L Normal 6.0-15.0 [facility] Comment on above: Performed By: #### L ACTIC, CMP, CBC #### [address] Calcium [Mass/Vol] 8.9 mg/dL Normal 8.6-10.3 [facility] Comment on above: Performed By: #### L ACTIC, CMP, CBC #### [address] Chloride [Moles/Vol] 100 mmol/L Normal 98-107 [facility] Comment on above: Performed By: #### L ACTIC, CMP, CBC #### [facility] [address] [place] [address] CO2 [Moles/Vol] 20.7 mmol/L Low 21.0-31.0 [facility] Comment on above: Performed By: #### L ACTIC, CMP, CBC #### [facility] [address] [place] [address] Creatinine [Mass/Vol] 1.10 mg/dL Normal 0.60-1.20 [facility] Comment on above: Performed By: #### L ACTIC, CMP, CBC #### [place] [address] [place] Creatinine Clr Calc Pharmacy 68.[address] [facility] Comment on above: Result Comment: PERF ORMED BY: [place] [address] PATHOLOGIST MELTER SUPERVISOR [employer] FURNACE IAN ACE M.D. Performed By: #### L ACTPERCY CMP, CBC #### [facility] [address] [place] [address] [place] GFR/1.73 sq M.predicted MDRD (S/P/Bld) [Vol rate/Area] 55.418 mL/min/{1.73_m2} [facility] Comment on above: Performed By: #### L ACTALEXX GREER, CBC #### [address] Glucose [Mass/Vol] 132 mg/dL High 70-100 [facility] Comment on above: Result Comment: [place] Glucose Reference Range is dependent on time and content of last meal. Glucose of more than 200 mg/dL in a nonstressed, ambulatory subject supports the diagnosis of Diabetes Mellitus. ADA recommended reference range Performed By: #### L ACTPERCY CMP, CBC #### [address] Potassium [Moles/Vol] 3.4 mmol/L Low 3.5-5.1 [facility] Comment on above: Performed By: #### L VITOR CMP, CBC #### [facility] [address] [place] [address] [place] Sodium [Moles/Vol] 129 mmol/L Low 136-145 [facility] Comment on above: Performed By: #### L ACTPERCY CMP, CBC #### [facility] [address] [place] [address] [place] Urea nitrogen [Mass/Vol] 42 mg/dL High 7-25 [facility] Comment on above: Performed By: #### L ACTPERCY CMP, CBC #### [facility] [address] [place] [address] Ovalocyte detectionOrdered B y: Malorie Nathan on 04-13-2023 Ovalocytes LM Ql (Bld) Slight [facility] Platelets Large [Presence] i n Blood by Light microscopyOrdered By: Malorie Nathan on 04-13-2023 Platelets Large LM Ql (Bld) Slight [facility] Poikilocytosis [Presence] in Blood by Light microscopyOrdered By: Malorie Nathan on 04-13-2023 Poikilocytosis LM Ql (Bld) Slight [facility] Scan and CBCon 04-13-2023 Anisocytosis Ql (Bld) Slight Normal [facility] Comment on above: Performed By: #### L ACTIC, CMP, CBC #### [facility] [address] [place] [address] [place] Basophils (Bld) [#/Vol] 0.1 10*3/uL Normal 0.0-0.2 [facility] Comment on above: Performed By: #### L ACTIC, CMP, CBC #### [facility] [address] [place] [address] [place] Basophils/100 WBC (Bld) 1.3 % Normal . [facility] Comment on above: Performed By: #### L ACTIC, CMP, CBC #### [facility] [address] [place] [address] [place] Eosinophils (Bld) [#/Vol] 0.2 10*3/uL Normal 0.0-0.45 [facility] Comment on above: Performed By: #### L ACTIC, CMP, CBC #### [facility] [address] [place] [address] [place] Eosinophils/100 WBC (Bld) 3.0 % Normal . [facility] Comment on above: Performed By: #### L ACTIC, CMP, CBC #### [facility] [address] [place] [address] [place] Erythrocyte distribution width (RBC) [Ratio] 16.7 % High 11.9-15.3 [facility] Comment on above: Performed By: #### L ACTIC, CMP, CBC #### [facility] [address] [place] [address] [place] Hematocrit (Bld) [Volume fraction] 33.0 % Low 34.0-46.4 [facility] Comment on above: Performed By: #### L ACTIC, CMP, CBC #### [address] Hemoglobin (Bld) [Mass/Vol] 10.7 g/dL Low 11.8-15.4 [facility] Comment on above: Performed By: #### L ACTIC, CMP, CBC #### [address] Large Platelets Slight Normal [facility] Comment on above: Result Comment: PERF ORMED BY: [place] [address] PATHOLOGIST MELTER SUPERVISOR [employer] FURNACE IAN ACE M.D. Performed By: #### L ACTIC, CMP, CBC #### [address] Lymphocytes (Bld) [#/Vol] 0.8 10*3/uL Low 1.00-4.8 [facility] Comment on above: Performed By: #### L ACTIC, CMP, CBC #### [address] Lymphocytes/100 WBC (Bld) 10.6 % Normal . [facility] Comment on above: Performed By: #### L ACTIC, CMP, CBC #### [address] MCH (RBC) [Entitic mass] 26.0 pg Normal 24.7-34.3 [facility] Comment on above: Performed By: #### L ACTIC, CMP, CBC #### [address] MCV (RBC) [Entitic vol] 80.2 fL Normal 80-100 [facility] Comment on above: Performed By: #### L ACTIC, CMP, CBC #### [address] Mean Corpuscular HGB Conc 32.4 g/dL Normal 32.0-35.0 [facility] Comment on above: Performed By: #### L ACTIC, CMP, CBC #### [facility] [address] Microcytosis Slight Normal [facility] Comment on above: Performed By: #### L ACTIC, CMP, CBC #### [facility] [address] Monocytes (Bld) [#/Vol] 0.8 10*3/uL Normal 0.0-0.8 [facility] Comment on above: Performed By: #### L ACTIC, CMP, CBC #### [facility] [address] Monocytes/100 WBC (Bld) 11.9 % Normal . [facility] Comment on above: Performed By: #### L ACTIC, CMP, CBC #### [address] Neutrophils (Bld) [#/Vol] 5.2 10*3/uL Normal 1.8-7.7 [facility] Comment on above: Performed By: #### L ACTIC, CMP, CBC #### [address] Neutrophils/100 WBC (Bld) 73.2 % Normal . [facility] Comment on above: Performed By: #### L ACTIC, CMP, CBC #### [address] NRBC% 0.2 /100{WBC} Normal 0-0.5 [facility] Comment on above: Performed By: #### L ACTIC, CMP, CBC #### [place] [address] [place] Ovalocytes Slight Normal [facility] Comment on above: Performed By: #### L ACTIC, CMP, CBC #### [address] Platelet Estimate Normal Normal Normal [facility] Comment on above: Performed By: #### L ACTIC, CMP, CBC #### [facility] [address] [place] [address] [place] Platelet mean volume (Bld) [Entitic vol] 6.9 fL Normal 6.3-10.7 [facility] Comment on above: Performed By: #### L ACTIC, CMP, CBC #### [address] Platelets (Bld) [#/Vol] 390 10*3/uL Normal 150-450 [facility] Comment on above: Performed By: #### L ACTIC, CMP, CBC #### [address] Poikilocytosis Slight Normal [facility] Comment on above: Performed By: #### L ACTIC, CMP, CBC #### [address] Polychromasia Slight Normal [facility] Comment on above: Performed By: #### L ACTIC, CMP, CBC #### [address] RBC (Bld) [#/Vol] 4.11 10*6/uL Normal 3.60-5.00 [facility] Comment on above: Performed By: #### L ACTIC, CMP, CBC #### [address] WBC (Bld) [#/Vol] 7.1 10*3/uL Normal 3.8-11.6 [facility] Comment on above: Performed By: #### L ACTIC, CMP, CBC #### [address] Serum or plasma trough vanco mycin levelOrdered By: Neeraj Farrell on 04-13-2023 Vancomycin trough [Mass/Vol] 16.7 ug/mL 10.0-20.0 [facility] Comment on above: Last dose: - Vancomycin [Mass/volume] in Serum or Plasma --peakOrdered By: Neeraj Farrell on 04-13-2023 Vancomycin peak [Mass/Vol] 32.0 ug/mL 20.0-40.0 [facility] Comment on above: Last dose: - Vancomycin,Peakon 04-13-2023 Vancomycin,Peak 32.0 ug/mL Normal 20.0-40.0 [facility] Comment on above: Order Comment: Comme nt ?DRAW 1 HOUR AFTER INFUSION COMPLETES Date of last dose?: 20230412 Time of last dose?: 2329 Result Comment: Last dose: - PERFORMED BY: [place] [address] PATHOLOGIST MELTER SUPERVISOR [employer] FURNACE IAN ACE M.D. Performed By: #### C UBLD, CMP, CBC #### [facility] [address] Basic Metabolic Panelon 11-0 Anion gap [Moles/Vol] 12.9 mmol/L Normal 6.0-15.0 [facility] Comment on above: Performed By: #### C UBLD, CMP, CBC #### [facility] [address] Calcium [Mass/Vol] 8.9 mg/dL Normal 8.6-10.3 [facility] Comment on above: Performed By: #### C UBLD, CMP, CBC #### [facility] [address] [place] [address] [place] Chloride [Moles/Vol] 100 mmol/L Normal 98-107 [facility] Comment on above: Performed By: #### C UBLD, CMP, CBC #### [facility] [address] CO2 [Moles/Vol] 19.0 mmol/L Low 21.0-31.0 [facility] Comment on above: Performed By: #### C UBLD, CMP, CBC #### [facility] [address] [place] [address] [place] Creatinine [Mass/Vol] 1.13 mg/dL Normal 0.60-1.20 [facility] Comment on above: Performed By: #### C UBLD, CMP, CBC #### [facility] [address] [place] [address] [place] Creatinine Clr Calc Pharmacy 65.[address] [facility] Comment on above: Result Comment: PERF ORMED BY: [place] [address] PATHOLOGIST MELTER SUPERVISOR [employer] FURNACE IAN ACE M.D. Performed By: #### C ALEXX RAND, CBC #### [address] GFR/1.73 sq M.predicted MDRD (S/P/Bld) [Vol rate/Area] 53.657 mL/min/{1.73_m2} Normal [facility] Comment on above: Performed By: #### C ALEXX RAND, CBC #### [address] Glucose [Mass/Vol] 119 mg/dL High 70-100 [facility] Comment on above: Result Comment: [place] Glucose Reference Range is dependent on time and content of last meal. Glucose of more than 200 mg/dL in a nonstressed, ambulatory subject supports the diagnosis of Diabetes Mellitus. ADA recommended reference range Performed By: #### C ALEXX RAND, CBC #### [address] Potassium [Moles/Vol] 3.9 mmol/L Normal 3.5-5.1 [facility] Comment on above: Performed By: #### C ALEXX RAND, CBC #### [address] Sodium [Moles/Vol] 128 mmol/L Low 136-145 [facility] Comment on above: Performed By: #### C ALEXX RAND, CBC #### [address] Urea nitrogen [Mass/Vol] 43 mg/dL High 7-25 [facility] Comment on above: Performed By: #### C ALEXX RAND, CBC #### [address] Complete Blood Count Auto Di ffon 04-12-2023 Basophils (Bld) [#/Vol] 0.0 10*3/uL Normal 0.0-0.2 [facility] Comment on above: Result Comment: PERF ORMED BY: [place] [address] PATHOLOGIST MELTER SUPERVISOR [employer] FURNACE IAN ACE M.D. Performed By: #### C UBLD, CMP, CBC #### [address] Basophils/100 WBC (Bld) 0.5 % Normal . [facility] Comment on above: Performed By: #### C UBLD, CMP, CBC #### [address] Eosinophils (Bld) [#/Vol] 0.1 10*3/uL Normal 0.0-0.45 [facility] Comment on above: Performed By: #### C UBLD, CMP, CBC #### [address] Eosinophils/100 WBC (Bld) 1.6 % Normal . [facility] Comment on above: Performed By: #### C UBLD, CMP, CBC #### [address] Erythrocyte distribution width (RBC) [Ratio] 16.9 % High 11.9-15.3 [facility] Comment on above: Performed By: #### C UBLD, CMP, CBC #### [address] Hematocrit (Bld) [Volume fraction] 31.7 % Low 34.0-46.4 [facility] Comment on above: Performed By: #### C UBLD, CMP, CBC #### [address] Hemoglobin (Bld) [Mass/Vol] 10.3 g/dL Low 11.8-15.4 [facility] Comment on above: Performed By: #### C UBLD, CMP, CBC #### [address] Lymphocytes (Bld) [#/Vol] 0.6 10*3/uL Low 1.00-4.8 [facility] Comment on above: Performed By: #### C UBLD, CMP, CBC #### [address] Lymphocytes/100 WBC (Bld) 8.2 % Normal . [facility] Comment on above: Performed By: #### C UBLD, CMP, CBC #### [facility] [address] MCH (RBC) [Entitic mass] 26.2 pg Normal 24.7-34.3 [facility] Comment on above: Performed By: #### C UBLD, CMP, CBC #### [address] MCV (RBC) [Entitic vol] 80.7 fL Normal 80-100 [facility] Comment on above: Performed By: #### C UBLD, CMP, CBC #### [address] Mean Corpuscular HGB Conc 32.5 g/dL Normal 32.0-35.0 [facility] Comment on above: Performed By: #### C UBLD, CMP, CBC #### [place] [address] [place] Monocytes (Bld) [#/Vol] 1.0 10*3/uL High 0.0-0.8 [facility] Comment on above: Performed By: #### C UBLD, CMP, CBC #### [place] [address] [place] Monocytes/100 WBC (Bld) 13.4 % Normal . [facility] Comment on above: Performed By: #### C UBLD, CMP, CBC #### [place] [address] [place] Neutrophils (Bld) [#/Vol] 5.6 10*3/uL Normal 1.8-7.7 [facility] Comment on above: Performed By: #### C UBLD, CMP, CBC #### [address] Neutrophils/100 WBC (Bld) 76.3 % Normal . [facility] Comment on above: Performed By: #### C UBLD, CMP, CBC #### [address] NRBC% 0.3 /100{WBC} Normal 0-0.5 [facility] Comment on above: Performed By: #### C UBLD, CMP, CBC #### [address] Platelet mean volume (Bld) [Entitic vol] 7.2 fL Normal 6.3-10.7 [facility] Comment on above: Performed By: #### C UBLD, CMP, CBC #### [address] Platelets (Bld) [#/Vol] 363 10*3/uL Normal 150-450 [facility] Comment on above: Performed By: #### C UBLD, CMP, CBC #### [address] RBC (Bld) [#/Vol] 3.93 10*6/uL Normal 3.60-5.00 [facility] Comment on above: Performed By: #### C UBLD, CMP, CBC #### [address] WBC (Bld) [#/Vol] 7.3 10*3/uL Normal 3.8-11.6 [facility] Comment on above: Performed By: #### C UBLD, CMP, CBC #### [address] Arterial Blood Gason 023 ABG Base Excess -15.4 mmol/L Low -3.0-3.0 [facility] Comment on above: Performed By: #### C UBLD, CMP, CBC #### [address] ABG Frac Inspired O2 44 % Normal [facility] Comment on above: Performed By: #### C UBLD, CMP, CBC #### [address] ABG Liter Flow [address] [facility] Comment on above: Performed By: #### C UBLD, CMP, CBC #### [facility] [address] ABG Oxygen Content 7.8 mmol/L Normal 6.6-9.7 [facility] Comment on above: Performed By: #### C UBLD, CMP, CBC #### [facility] [address] ABG Oxygen Saturation 97.6 % Normal 95.0-100.0 [facility] Comment on above: Performed By: #### C UBLD, CMP, CBC #### [facility] [address] ABG PCO2 52.5 mm[Hg] Off scale high 35.0-45.0 [facility] Comment on above: Performed By: #### C UBLD, CMP, CBC #### [facility] [address] ABG PH 7.07 Off scale low 7.35-7.45 [facility] Comment on above: Performed By: #### C UBLD, CMP, CBC #### [address] ABG PO2 105.6 mm[Hg] High 80.0-100.0 [facility] Comment on above: Performed By: #### C UBLD, CMP, CBC #### [facility] [address] [place] [address] [place] CO2 [Moles/Vol] 16.3 mmol/L Low 23.0-27.0 [facility] Comment on above: Performed By: #### C UBLD, CMP, CBC #### [facility] [address] [place] [address] [place] HCO3 (Bld) [Moles/Vol] 14.7 mmol/L Low 23.0-29.0 [facility] Comment on above: Performed By: #### C UBLD, CMP, CBC #### [facility] [address] Respiratory Critical Normal [facility] Comment on above: Result Comment: Crit ical Value called on: 04/11/2023 at 08:56 PERFORMED BY: [place] [address] PATHOLOGIST MELTER SUPERVISOR [employer] FURNACE IAN ACE M.D. Performed By: #### C UBLD, CMP, CBC #### [facility] [address] VBG Draw Site Right Radial Normal [facility] Comment on above: Performed By: #### C UBLD, CMP, CBC #### [facility] [address] [place] [address] B-Type Natriuretic Peptideon 04-11-2023 Natriuretic peptide B (Bld) [Mass/Vol] 181.0 pg/mL High 5-100 [facility] Comment on above: Result Comment: PERF ORMED BY: [place] [address] PATHOLOGIST MELTER SUPERVISOR [employer] FURNACE IAN ACE M.D. Performed By: #### C UBLD, CMP, CBC #### [facility] [address] [place], [place] [address] Bacterial blood cultureOrder ed By: Laith Monte on 04-11-2023 Bacteria identified Cx Nom (Bld) NO GROWTH [address] [facility] Blood Cultureon 04-11-2023 Bacteria identified Cx Nom (Bld) NO GROWTH 5 DAYS PERFORMED BY: [place] [address] PATHOLOGIST MELTER SUPERVIS[employer] FURNACE IAN ACE M.D. [facility] Comment on above: Performed By: #### C UBLD, CMP, CBC #### [facility] [address] [place] [address] Bacteria identified Cx Nom (Bld) NO GROWTH 5 DAYS PERFORMED BY: [place] [address] PATHOLOGIST MELTER SUPERVIS[employer] FURNACE IAN ACE M.D. [facility] Comment on above: Performed By: #### C UBLD, CMP, CBC #### [place] [address] Complete Blood Count Auto Di ffon 04-11-2023 Basophils (Bld) [#/Vol] 0.1 10*3/uL Normal 0.0-0.2 [facility] Comment on above: Result Comment: PERF ORMED BY: [place] [address] PATHOLOGIST MELTER SUPERVIS[employer] FURNACE IAN ACE M.D. Performed By: #### C UBLD, CMP, CBC #### [address] Basophils/100 WBC (Bld) 0.6 % Normal . [facility] Comment on above: Performed By: #### C UBLD, CMP, CBC #### [address] Eosinophils (Bld) [#/Vol] 0.0 10*3/uL Normal 0.0-0.45 [facility] Comment on above: Performed By: #### C UBLD, CMP, CBC #### [address] Eosinophils/100 WBC (Bld) 0.1 % Normal . [facility] Comment on above: Performed By: #### C UBLD, CMP, CBC #### [address] Erythrocyte distribution width (RBC) [Ratio] 17.2 % High 11.9-15.3 [facility] Comment on above: Performed By: #### C UBLD, CMP, CBC #### [place] [address] [place] Hematocrit (Bld) [Volume fraction] 37.9 % Normal 34.0-46.4 [facility] Comment on above: Performed By: #### C UBLD, CMP, CBC #### [address] Hemoglobin (Bld) [Mass/Vol] 11.8 g/dL Normal 11.8-15.4 [facility] Comment on above: Performed By: #### C UBLD, CMP, CBC #### [facility] [address] Lymphocytes (Bld) [#/Vol] 0.3 10*3/uL Low 1.00-4.8 [facility] Comment on above: Performed By: #### C UBLD, CMP, CBC #### [address] Lymphocytes/100 WBC (Bld) 1.8 % Normal . [facility] Comment on above: Performed By: #### C UBLD, CMP, CBC #### [address] MCH (RBC) [Entitic mass] 25.9 pg Normal 24.7-34.3 [facility] Comment on above: Performed By: #### C UBLD, CMP, CBC #### [address] MCV (RBC) [Entitic vol] 82.9 fL Normal 80-100 [facility] Comment on above: Performed By: #### C UBLD, CMP, CBC #### [address] Mean Corpuscular HGB Conc 31.2 g/dL Low 32.0-35.0 [facility] Comment on above: Performed By: #### C UBLD, CMP, CBC #### [address] Monocytes (Bld) [#/Vol] 1.0 10*3/uL High 0.0-0.8 [facility] Comment on above: Performed By: #### C UBLD, CMP, CBC #### [place] [address] [place] Monocytes/100 WBC (Bld) 6.9 % Normal . [facility] Comment on above: Performed By: #### C UBLD, CMP, CBC #### [place] [address] [place] Neutrophils (Bld) [#/Vol] 13.7 10*3/uL High 1.8-7.7 [facility] Comment on above: Performed By: #### C UBLD, CMP, CBC #### [address] Neutrophils/100 WBC (Bld) 90.6 % Normal . [facility] Comment on above: Performed By: #### C UBLD, CMP, CBC #### [address] NRBC% 0.2 /100{WBC} Normal 0-0.5 [facility] Comment on above: Performed By: #### C UBLD, CMP, CBC #### [address] Platelet mean volume (Bld) [Entitic vol] 6.9 fL Normal 6.3-10.7 [facility] Comment on above: Performed By: #### C UBLD, CMP, CBC #### [address] Platelets (Bld) [#/Vol] 443 10*3/uL Normal 150-450 [facility] Comment on above: Performed By: #### C UBLD, CMP, CBC #### [address] RBC (Bld) [#/Vol] 4.56 10*6/uL Normal 3.60-5.00 [facility] Comment on above: Performed By: #### C UBLD, CMP, CBC #### [place] [address] [place] WBC (Bld) [#/Vol] 15.1 10*3/uL High 3.8-11.6 [facility] Comment on above: Performed By: #### C UBLD, CMP, CBC #### [address] Basophils (Bld) [#/Vol] 0.0 10*3/uL Normal 0.0-0.2 [facility] Comment on above: Result Comment: PERF ORMED BY: [place] [address] PATHOLOGIST MELTER SUPERVIS[employer] FURNACE IAN ACE M.D. Performed By: #### C UBLD, CMP, CBC #### [address] Basophils/100 WBC (Bld) 0.2 % Normal . [facility] Comment on above: Performed By: #### C UBLD, CMP, CBC #### [address] Eosinophils (Bld) [#/Vol] 0.1 10*3/uL Normal 0.0-0.45 [facility] Comment on above: Performed By: #### C UBLD, CMP, CBC #### [address] Eosinophils/100 WBC (Bld) 0.7 % Normal . [facility] Comment on above: Performed By: #### C UBLD, CMP, CBC #### [address] Erythrocyte distribution width (RBC) [Ratio] 17.0 % High 11.9-15.3 [facility] Comment on above: Performed By: #### C UBLD, CMP, CBC #### [address] Hematocrit (Bld) [Volume fraction] 39.3 % Normal 34.0-46.4 [facility] Comment on above: Performed By: #### C UBLD, CMP, CBC #### [address] Hemoglobin (Bld) [Mass/Vol] 12.2 g/dL Normal 11.8-15.4 [facility] Comment on above: Performed By: #### C UBLD, CMP, CBC #### [address] Lymphocytes (Bld) [#/Vol] 1.0 10*3/uL Normal 1.00-4.8 [facility] Comment on above: Performed By: #### C UBLD, CMP, CBC #### [place] [address] [place] Lymphocytes/100 WBC (Bld) 6.0 % Normal . [facility] Comment on above: Performed By: #### C UBLD, CMP, CBC #### [address] MCH (RBC) [Entitic mass] 25.7 pg Normal 24.7-34.3 [facility] Comment on above: Performed By: #### C UBLD, CMP, CBC #### [address] MCV (RBC) [Entitic vol] 83.1 fL Normal 80-100 [facility] Comment on above: Performed By: #### C UBLD, CMP, CBC #### [address] Mean Corpuscular HGB Conc 30.9 g/dL Low 32.0-35.0 [facility] Comment on above: Performed By: #### C UBLD, CMP, CBC #### [address] Monocytes (Bld) [#/Vol] 1.4 10*3/uL High 0.0-0.8 [facility] Comment on above: Performed By: #### C UBLD, CMP, CBC #### [address] Monocytes/100 WBC (Bld) 7.8 % Normal . [facility] Comment on above: Performed By: #### C UBLD, CMP, CBC #### [address] Neutrophils (Bld) [#/Vol] 14.8 10*3/uL High 1.8-7.7 [facility] Comment on above: Performed By: #### C UBLD, CMP, CBC #### [address] Neutrophils/100 WBC (Bld) 85.3 % Normal . [facility] Comment on above: Performed By: #### C UBLD, CMP, CBC #### [address] [place] [address] [place] NRBC% 0.1 /100{WBC} Normal 0-0.5 [facility] Comment on above: Performed By: #### C UBLD, CMP, CBC #### [address] Platelet mean volume (Bld) [Entitic vol] 7.2 fL Normal 6.3-10.7 [facility] Comment on above: Performed By: #### C UBLD, CMP, CBC #### [address] Platelets (Bld) [#/Vol] 488 10*3/uL High 150-450 [facility] Comment on above: Performed By: #### C UBLD, CMP, CBC #### [address] RBC (Bld) [#/Vol] 4.73 10*6/uL Normal 3.60-5.00 [facility] Comment on above: Performed By: #### C UBLD, CMP, CBC #### [address] WBC (Bld) [#/Vol] 17.4 10*3/uL High 3.8-11.6 [facility] Comment on above: Performed By: #### C UBLD, CMP, CBC #### [address] Comprehensive Metabolic Pane jeremy 04-11-2023 Albumin [Mass/Vol] 3.5 g/dL Normal 3.5-5.7 [facility] Comment on above: Performed By: #### C UBLD, CMP, CBC #### [address] Albumin/Globulin [Mass ratio] 0.9 {ratio} Normal [facility] Comment on above: Performed By: #### C UBLD, CMP, CBC #### [address] ALP [Catalytic activity/Vol] 96 U/L Normal 34-104 [facility] Comment on above: Performed By: #### C UBLD, CMP, CBC #### [facility] [address] [place] [address] [place] ALT [Catalytic activity/Vol] 117 U/L High 7-52 [facility] Comment on above: Performed By: #### C UBLD, CMP, CBC #### [facility] [address] Anion gap [Moles/Vol] 12.4 mmol/L Normal 6.0-15.0 [facility] Comment on above: Performed By: #### C UBLD, CMP, CBC #### [facility] [address] AST [Catalytic activity/Vol] 96 U/L High 13-39 [facility] Comment on above: Performed By: #### C UBLD, CMP, CBC #### [facility] [address] Bilirubin [Mass/Vol] 0.3 mg/dL Normal 0.3-1.0 [facility] Comment on above: Performed By: #### C UBLD, CMP, CBC #### [facility] [address] Calcium [Mass/Vol] 9.6 mg/dL Normal 8.6-10.3 [facility] Comment on above: Performed By: #### C UBLD, CMP, CBC #### [facility] [address] [place] [address] [place] Chloride [Moles/Vol] 102 mmol/L Normal 98-107 [facility] Comment on above: Performed By: #### C UBLD, CMP, CBC #### [facility] [address] [place] [address] [place] CO2 [Moles/Vol] 16.8 mmol/L Low 21.0-31.0 [facility] Comment on above: Performed By: #### C UBLD, CMP, CBC #### [facility] [address] [place] [address] [place] Creatinine [Mass/Vol] 1.43 mg/dL High 0.60-1.20 [facility] Comment on above: Performed By: #### C UBLD, CMP, CBC #### [facility] [address] Creatinine Clr Calc Pharmacy 51.[address] [facility] Comment on above: Result Comment: PERF ORMED BY: [place] [address] PATHOLOGIST MELTER SUPERVIS[employer] FURNACE IAN ACE M.D. Performed By: #### C UBLD, CMP, CBC #### [facility] [address] [place] [address] [place] GFR/1.73 sq M.predicted MDRD (S/P/Bld) [Vol rate/Area] 40.450 mL/min/{1.73_m2} [facility] Comment on above: Performed By: #### C UBLD, CMP, CBC #### [facility] [address] Globulin (S) [Mass/Vol] 3.8 g/dL [facility] Comment on above: Performed By: #### C UBLD, CMP, CBC #### [address] Glucose [Mass/Vol] 143 mg/dL High 70-100 [facility] Comment on above: Result Comment: [place] Glucose Reference Range is dependent on time and content of last meal. Glucose of more than 200 mg/dL in a nonstressed, ambulatory subject supports the diagnosis of Diabetes Mellitus. ADA recommended reference range Performed By: #### C UBLD, CMP, CBC #### [address] Potassium [Moles/Vol] 4.2 mmol/L Normal 3.5-5.1 [facility] Comment on above: Performed By: #### C UBLD, CMP, CBC #### [facility] [address] Protein [Mass/Vol] 7.3 g/dL Normal 6.4-8.9 [facility] Comment on above: Performed By: #### C UBLD, CMP, CBC #### [facility] [address] Sodium [Moles/Vol] 127 mmol/L Low 136-145 [facility] Comment on above: Performed By: #### C UBLD, CMP, CBC #### [facility] [address] Urea nitrogen [Mass/Vol] 47 mg/dL High 7-25 [facility] Comment on above: Performed By: #### C UBLD, CMP, CBC #### [facility] [address] Albumin [Mass/Vol] 3.6 g/dL Normal 3.5-5.7 [facility] Comment on above: Performed By: #### C UBLD, CMP, CBC #### [address] Albumin/Globulin [Mass ratio] 0.9 {ratio} Normal [facility] Comment on above: Performed By: #### C UBLD, CMP, CBC #### [address] ALP [Catalytic activity/Vol] 95 U/L Normal 34-104 [facility] Comment on above: Performed By: #### C UBLD, CMP, CBC #### [address] ALT [Catalytic activity/Vol] 108 U/L High 7-52 [facility] Comment on above: Performed By: #### C UBLD, CMP, CBC #### [facility] [address] Anion gap [Moles/Vol] 13.8 mmol/L Normal 6.0-15.0 [facility] Comment on above: Performed By: #### C UBLD, CMP, CBC #### [facility] [address] AST [Catalytic activity/Vol] 87 U/L High 13-39 [facility] Comment on above: Performed By: #### C UBLD, CMP, CBC #### [facility] [address] Bilirubin [Mass/Vol] 0.3 mg/dL Normal 0.3-1.0 [facility] Comment on above: Performed By: #### C UBLD, CMP, CBC #### [facility] [address] Calcium [Mass/Vol] 9.5 mg/dL Normal 8.6-10.3 [facility] Comment on above: Performed By: #### C UBLD, CMP, CBC #### [facility] [address] Chloride [Moles/Vol] 102 mmol/L Normal 98-107 [facility] Comment on above: Performed By: #### C UBLD, CMP, CBC #### [address] CO2 [Moles/Vol] 15.4 mmol/L Low 21.0-31.0 [facility] Comment on above: Performed By: #### C UBLD, CMP, CBC #### [address] Creatinine [Mass/Vol] 1.23 mg/dL High 0.60-1.20 [facility] Comment on above: Performed By: #### C UBLD, CMP, CBC #### [place] [address] [place] Creatinine Clr Calc Pharmacy 60.[address] [facility] Comment on above: Result Comment: PERF ORMED BY: [place] [address] PATHOLOGIST MELTER SUPERVIS[employer] FURNACE IAN ACE M.D. Performed By: #### C UBLD, CMP, CBC #### [place] [address] [place] GFR/1.73 sq M.predicted MDRD (S/P/Bld) [Vol rate/Area] 48.466 mL/min/{1.73_m2} [facility] Comment on above: Performed By: #### C UBLD, CMP, CBC #### [address] [place] [address] [place] Globulin (S) [Mass/Vol] 3.8 g/dL Normal [facility] Comment on above: Performed By: #### C UBPREMA CMP, CBC #### [facility] [address] Glucose [Mass/Vol] 143 mg/dL High 70-100 [facility] Comment on above: Result Comment: [place] Glucose Reference Range is dependent on time and content of last meal. Glucose of more than 200 mg/dL in a nonstressed, ambulatory subject supports the diagnosis of Diabetes Mellitus. ADA recommended reference range Performed By: #### C UBPREMA CMP, CBC #### [address] Potassium [Moles/Vol] 4.2 mmol/L Normal 3.5-5.1 [facility] Comment on above: Performed By: #### C UBPREMA CMP, CBC #### [address] Protein [Mass/Vol] 7.4 g/dL Normal 6.4-8.9 [facility] Comment on above: Performed By: #### C UBPREMA CMP, CBC #### [address] Sodium [Moles/Vol] 127 mmol/L Low 136-145 [facility] Comment on above: Performed By: #### C UBLD, CMP, CBC #### [address] Urea nitrogen [Mass/Vol] 46 mg/dL High 7-25 [facility] Comment on above: Performed By: #### C UBPREMA, CMP, CBC #### [address] Creatine Kinaseon 04-11-2023 CK [Catalytic activity/Vol] 122 U/L Normal 30-223 [facility] Comment on above: Performed By: #### L ACTIC, CMP, CBC #### [place] [address] [place] Creatine kinase [Enzymatic a ctivity/volume] in Serum or PlasmaOrdered By: Laith Monte on 04-11-2023 CK [Catalytic activity/Vol] 122 U/L 30-223 [facility] ECG 12 lead ECGon 04-11-2023 ECG 12 lead ECG [facility] Main [address] [address] Electrocardiograph Report Signed Patient: [place] Cesar MR#: [id number] : 1955 Acct:[id number] Age/Sex: 67 / F ADM Date: 04/10/23 Loc: Room: [address] [place] [address] Type: ADM IN Attending Dr: Malorie Nathan [...] previous ECGs available Confirmed by LONNIE MORENO [id number] on 04/12/2023 9:24:12 AM Referred By: Electronically Signed By:LUISA HANKINS MD [facility] Transcribed By: MUS Signed By Luisa Hankins MD, [facility] 04/12/[address] [facility] Glucose Glucometer (BldC) [M ass/Vol]Ordered By: Malorie Nathan on 04-11-2023 Glucose [Mass/Vol] 149 mg/dL [facility] Comment on above: Random Glucose Refer ence Range is dependent on time and content of last meal. Glucose of more than 200 mg/dL in a nonstressed, ambulatory subject supports the diagnosis of Diabetes Mellitus. Glucose Poct Glucometerson 1 06-11-2022 Glucose [Mass/Vol] 149 mg/dL [facility] Comment on above: Result Comment: [place] Glucose Reference Range is dependent on time and content of last meal. Glucose of more than 200 mg/dL in a nonstressed, ambulatory subject supports the diagnosis of Diabetes Mellitus. PERFORMED BY: [place] [address] PATHOLOGIST MELTER SUPERVIS[employer]URNACE IAN ACE M.D. Performed By: #### G LULS #### Point of Care testing , Laboratory - Chemistry and C hemistry - challengeOrdered By: Malorie Nathan on 04-11-2023 CO2 [Moles/Vol] 16.3 mmol/L 23.0-27.0 [facility] HCO3 (Bld) [Moles/Vol] 14.7 mmol/L 23.0-29.0 [facility] Lactate [Moles/volume] in Se rum or PlasmaOrdered By: Laith Monte on 04-11-2023 Lactate [Moles/Vol] 1.3 mmol/L 0.5-2.2 [facility] Lactic Acidon 04-11-2023 Lactate [Moles/Vol] 1.3 mmol/L Normal 0.5-2.2 [facility] Comment on above: Result Comment: PERF ORMED BY: [place] [address] PATHOLOGIST MELTER SUPERVIS[employer] FURNACE IAN ACE M.D. Performed By: #### C UBLD, CMP, CBC #### [address] Natriuretic peptide B [Mass/ Vol]Ordered By: Laith Monte on 04-11-2023 Natriuretic peptide B (Bld) [Mass/Vol] 181.0 pg/mL 5-100 [facility] No Panel InformationOrdered By: Malorie Nathan on 04-11-2023 Arterial Blood Base Excess -15.4 mmol/L -3.0-3.0 [facility] Arterial Blood Oxygen Content 7.8 mmol/L 6.6-9.7 [facility] Arterial Blood Oxygen Saturation 97.6 % 95.0-100.0 [facility] Arterial Blood Partial Pressure CO2 52.5 mm[Hg] 35.0-45.0 [facility] Arterial Blood Partial Pressure O2 105.6 mm[Hg] 80.0-100.0 [facility] Arterial Blood pH 7.07 7.35-7.45 [facility] Blood Gas Critical Value See comment [facility] Comment on above: Critical Value julio haynes on: 04/11/2023 at 08:56 Blood Gas Liter Flow 6 L/min [facility] Blood Gas Sample Site Right radial F [facility] FiO2 44 % [facility] Troponin I High Sensitivityo n 04-11-2023 Troponin I High Sensitivity 33.9 pg/mL High 0.0-15.0 [facility] Comment on above: Result Comment: PERF ORMED BY: [place] [address] PATHOLOGIST MELTER SUPERVIS[employer] FURNACE IAN ACE M.D. Performed By: #### L ACTIC, CMP, CBC #### [address] Troponin I.cardiac [Mass/vol ume] in Serum or Plasma by Detection limit <= 0.01 ng/Ordered By: Laith Monte on 04-11-2023 Troponin I.cardiac DL <= 0.01 ng/mL [Mass/Vol] 33.9 pg/mL 0.0-15.0 [facility] XR chest 1V portableon 04-11 XR chest 1V portable [facility] Main [place] [address] [place] [address] XRay Report Signed Patient: [place] Cesar MR#: [id number] : 1955 Acct:[id number] Age/Sex: 67 / F ADM Date: 04/10/23 Loc: Room: [address] [place] [address] Type: ADM IN Attending Dr: Malorie Nathan [...] Crispin Sullivan M.D.04/11/2023 9:10 AM Dictation Location: [place] [address] Transcribed By: MARIA VICTORIA 04/11/23909 Dictated By: Crispin Sullivan II, MD 04/11/23907 Signed By: 04/11/[address] [facility] Alanine aminotransferase [En zymatic activity/volume] in Serum or PlasmaOrdered By: Sarah Davey on 04-10-2023 ALT [Catalytic activity/Vol] 91 U/L 7-52 [facility] Albumin [Mass/volume] in Ser um or Plasma by Bromocresol green (BCG) dye binding methoOrdered By: Sarah Davey on 04-10-2023 Albumin BCG dye [Mass/Vol] 3.7 g/dL 3.5-5.7 [facility] Alkaline phosphatase [Enzyma tic activity/volume] in Serum or PlasmaOrdered By: Sarah Davey on 04-10-2023 ALP [Catalytic activity/Vol] 92 U/L 34-104 [facility] Aspartate aminotransferase [ Enzymatic activity/volume] in Serum or PlasmaOrdered By: Sarah Davey on 04-10-2023 AST [Catalytic activity/Vol] 74 U/L 13-39 [facility] Automated erythrocytes count in urine sediment (number/area)Ordered By: Sarah Davey on 04-10-2023 RBC Auto (Urine sed) [#/Area] 1-2 [HPF] 0-4 [facility] Automated leukocytes count i n urine sediment (number/area)Ordered By: Sarah Davey on 04-10-2023 WBC Auto (Urine sed) [#/Area] 10-19 [HPF] 0-4 [facility] Basic Metabolic Panelon 11 Anion gap [Moles/Vol] 14.6 mmol/L Normal 6.0-15.0 [facility] Comment on above: Performed By: #### C UBLD, CMP, CBC #### [facility] [address] Calcium [Mass/Vol] 9.5 mg/dL Normal 8.6-10.3 [facility] Comment on above: Performed By: #### C UBLD, CMP, CBC #### [facility] [address] Chloride [Moles/Vol] 102 mmol/L Normal 98-107 [facility] Comment on above: Performed By: #### C UBLD, CMP, CBC #### [address] CO2 [Moles/Vol] 14.3 mmol/L Low 21.0-31.0 [facility] Comment on above: Performed By: #### C UBLD, CMP, CBC #### [address] Creatinine [Mass/Vol] 1.16 mg/dL Normal 0.60-1.20 [facility] Comment on above: Performed By: #### C UBPREMA, CMP, CBC #### [address] Creatinine Clr Calc Pharmacy 63.[address] [facility] Comment on above: Result Comment: PERF ORMED BY: [place] [address] PATHOLOGIST MELTER SUPERVIS[employer]URNACE IAN ACE M.D. Performed By: #### C UBLD, CMP, CBC #### [place] [address] [place] GFR/1.73 sq M.predicted MDRD (S/P/Bld) [Vol rate/Area] 51.997 mL/min/{1.73_m2} [facility] Comment on above: Performed By: #### C UBLD, CMP, CBC #### [address] [address] [place] Glucose [Mass/Vol] 142 mg/dL High 70-100 [facility] Comment on above: Result Comment: [place] Glucose Reference Range is dependent on time and content of last meal. Glucose of more than 200 mg/dL in a nonstressed, ambulatory subject supports the diagnosis of Diabetes Mellitus. ADA recommended reference range Performed By: #### C UBLD, CMP, CBC #### [facility] [address] Potassium [Moles/Vol] 3.9 mmol/L Normal 3.5-5.1 [facility] Comment on above: Performed By: #### C UBLD, CMP, CBC #### [facility] [address] Sodium [Moles/Vol] 127 mmol/L Low 136-145 [facility] Comment on above: Performed By: #### C UBLD, CMP, CBC #### [facility] [address] Urea nitrogen [Mass/Vol] 45 mg/dL High 7-25 [facility] Comment on above: Performed By: #### C UBLD, CMP, CBC #### [facility] [address] [place] [address] [place] Basophils Auto (Bld) [#/Vol] Ordered By: Sarah Schwarzimore on 04-10-2023 Basophils (Bld) [#/Vol] 0.1 10*3/uL 0.0-0.2 [facility] Basophils/100 WBC Auto (Bld) Ordered By: Sarah Bullimore on 04-10-2023 Basophils/100 WBC (Bld) 0.5 % . [facility] Bilirubin Test strip Ql (U)O rdered By: Sarah Davey on 04-10-2023 Bilirubin Ql (U) Negative Negative [facility] Bilirubin.total [Mass/volume ] in Serum or PlasmaOrdered By: Sarah Schwarzimmundo on 04-10-2023 Bilirubin [Mass/Vol] 0.4 mg/dL 0.3-1.0 [facility] Blood Cultureon 11-03-2023 Bacteria identified Cx Nom (Bld) NO GROWTH 5 DAYS PERFORMED BY: [facility] [address] [place] [address] PATHOLOGIST MELTER SUPER[employer] FURNACE IAN ACE M.D. Normal [facility] Comment on above: Performed By: #### G LULS #### Point of Care testing , C reactive protein [Mass/vol ume] in Serum or PlasmaOrdered By: Sarah Schwarzimore on 04-10-2023 CRP [Mass/Vol] 16.1 mg/dL 0.0-0.5 [facility] C-Reactive Proteinon 023 C-Reactive Protein 16.1 mg/dL High 0.0-0.5 [facility] Comment on above: Result Comment: PERF ORMED BY: [address] [place] [address] PATHOLOGIST MELTER SUPER[employer] FURNACE IAN ACE M.D. Performed By: #### G LULS #### Point of Care testing , Calcium [Mass/volume] in Ser um or PlasmaOrdered By: Sarah [place]imore on 04-10-2023 Calcium [Mass/Vol] 10.0 mg/dL 8.6-10.3 [facility] Carbon dioxide, total [Moles /volume] in Serum or PlasmaOrdered By: Sarah Bullimore on 04-10-2023 CO2 [Moles/Vol] 15.4 mmol/L 21.0-31.0 [facility] Chloride [Moles/volume] in S marivel or PlasmaOrdered By: Sarah Bullimore on 04-10-2023 Chloride [Moles/Vol] 102 mmol/L 98-107 [facility] Color Auto (U)Ordered By: Tiffany Schwarzimore on 04-10-2023 Color (U) Yellow Yellow [facility] Complete Blood Count Auto Di ffon 04-10-2023 Basophils (Bld) [#/Vol] 0.1 10*3/uL Normal 0.0-0.2 [facility] Comment on above: Performed By: #### G LULS #### Point of Care testing , Basophils/100 WBC (Bld) 0.5 % Normal . [facility] Comment on above: Performed By: #### G KYAWLS #### Point of Care testing , Eosinophils (Bld) [#/Vol] 0.1 10*3/uL Normal 0.0-0.45 [facility] Comment on above: Performed By: #### G KYAWLS #### Point of Care testing , Eosinophils/100 WBC (Bld) 1.0 % Normal . [facility] Comment on above: Performed By: #### G KYAWLS #### Point of Care testing , Erythrocyte distribution width (RBC) [Ratio] 16.8 % High 11.9-15.3 [facility] Comment on above: Performed By: #### G DAIANA #### Point of Care testing , Hematocrit (Bld) [Volume fraction] 39.4 % Normal 34.0-46.4 [facility] Comment on above: Performed By: #### G DAIANA #### Point of Care testing , Hemoglobin (Bld) [Mass/Vol] 12.7 g/dL Normal 11.8-15.4 [facility] Comment on above: Performed By: #### G DAIANA #### Point of Care testing , Lymphocytes (Bld) [#/Vol] 0.4 10*3/uL Low 1.00-4.8 [facility] Comment on above: Performed By: #### G KYAWLS #### Point of Care testing , Lymphocytes/100 WBC (Bld) 3.2 % Normal . [facility] Comment on above: Performed By: #### G DAIANA #### Point of Care testing , MCH (RBC) [Entitic mass] 26.3 pg Normal 24.7-34.3 [facility] Comment on above: Performed By: #### G DAIANA #### Point of Care testing , MCV (RBC) [Entitic vol] 81.8 fL Normal 80-100 [facility] Comment on above: Performed By: #### G DAIANA #### Point of Care testing , Mean Corpuscular HGB Conc 32.1 g/dL Normal 32.0-35.0 [facility] Comment on above: Performed By: #### G DAIANA #### Point of Care testing , Monocytes (Bld) [#/Vol] 0.6 10*3/uL Normal 0.0-0.8 [facility] Comment on above: Performed By: #### G KYAWLS #### Point of Care testing , Monocytes/100 WBC (Bld) 17.56 % Normal 0.00-20.00 [facility] Comment on above: Performed By: #### Jodi CARDLS #### Point of Care testing , Monocytes/100 WBC (Bld) 5.0 % Normal . [facility] Comment on above: Performed By: #### G DAIANA #### Point of Care testing , Neutrophils (Bld) [#/Vol] 11.7 10*3/uL High 1.8-7.7 [facility] Comment on above: Performed By: #### Jodi AHMADI #### Point of Care testing , Neutrophils/100 WBC (Bld) 90.3 % Normal . [facility] Comment on above: Performed By: #### Jodi AHMADI #### Point of Care testing , NRBC% 0.1 /100{WBC} Normal 0-0.5 [facility] Comment on above: Performed By: #### Jodi AHMADI #### Point of Care testing , Platelet mean volume (Bld) [Entitic vol] 7.5 fL Normal 6.3-10.7 [facility] Comment on above: Performed By: #### Jodi AHMADI #### Point of Care testing , Platelets (Bld) [#/Vol] 474 10*3/uL High 150-450 [facility] Comment on above: Performed By: #### Jodi AHMADI #### Point of Care testing , RBC (Bld) [#/Vol] 4.82 10*6/uL Normal 3.60-5.00 [facility] Comment on above: Performed By: #### Jodi AHMADI #### Point of Care testing , WBC (Bld) [#/Vol] 13.0 10*3/uL High 3.8-11.6 [facility] Comment on above: Performed By: #### Jodi AHMADI #### Point of Care testing , Comprehensive Metabolic Pane jeremy 04-10-2023 Albumin [Mass/Vol] 3.7 g/dL Normal 3.5-5.7 [facility] Comment on above: Performed By: #### Jodi AHMADI #### Point of Care testing , Albumin/Globulin [Mass ratio] 0.8 {ratio} Normal [facility] Comment on above: Performed By: #### Jodi AHMADI #### Point of Care testing , ALP [Catalytic activity/Vol] 92 U/L Normal 34-104 [facility] Comment on above: Performed By: #### Jodi AHMADI #### Point of Care testing , ALT [Catalytic activity/Vol] 91 U/L High 7-52 [facility] Comment on above: Performed By: #### Jodi AHMADI #### Point of Care testing , Anion gap [Moles/Vol] 15.3 mmol/L High 6.0-15.0 [facility] Comment on above: Performed By: #### Jodi AHMADI #### Point of Care testing , AST [Catalytic activity/Vol] 74 U/L High 13-39 [facility] Comment on above: Performed By: #### Jodi AHMADI #### Point of Care testing , Bilirubin [Mass/Vol] 0.4 mg/dL Normal 0.3-1.0 [facility] Comment on above: Performed By: #### Jodi AHMADI #### Point of Care testing , Calcium [Mass/Vol] 10.0 mg/dL Normal 8.6-10.3 [facility] Comment on above: Performed By: #### Jodi AHMADI #### Point of Care testing , Chloride [Moles/Vol] 102 mmol/L Normal 98-107 [facility] Comment on above: Performed By: #### Jodi AHMADI #### Point of Care testing , CO2 [Moles/Vol] 15.4 mmol/L Low 21.0-31.0 [facility] Comment on above: Performed By: #### Jodi AHMADI #### Point of Care testing , Creatinine [Mass/Vol] 1.21 mg/dL High 0.60-1.20 [facility] Comment on above: Performed By: #### G KYAWLS #### Point of Care testing , Creatinine Clr Calc Pharmacy 60.[address] [facility] Comment on above: Performed By: #### G LULS #### Point of Care testing , GFR/1.73 sq M.predicted MDRD (S/P/Bld) [Vol rate/Area] 49.429 mL/min/{1.73_m2} [facility] Comment on above: Performed By: #### G KYAWLS #### Point of Care testing , Globulin (S) [Mass/Vol] 4.5 g/dL [facility] Comment on above: Performed By: #### G KYAWLS #### Point of Care testing , Glucose [Mass/Vol] 109 mg/dL High 70-100 [facility] Comment on above: Result Comment: [facility] Glucose Reference Range is dependent on time and content of last meal. Glucose of more than 200 mg/dL in a nonstressed, ambulatory subject supports the diagnosis of Diabetes Mellitus. ADA recommended reference range Performed By: #### G LULS #### Point of Care testing , Potassium [Moles/Vol] 3.7 mmol/L Normal 3.5-5.1 [facility] Comment on above: Performed By: #### G KYAWLS #### Point of Care testing , Protein [Mass/Vol] 8.2 g/dL Normal 6.4-8.9 [facility] Comment on above: Performed By: #### G KYAWLS #### Point of Care testing , Sodium [Moles/Vol] 129 mmol/L Low 136-145 [facility] Comment on above: Performed By: #### G KYAWLS #### Point of Care testing , Urea nitrogen [Mass/Vol] 43 mg/dL High 7-25 [facility] Comment on above: Performed By: #### G LULS #### Point of Care testing , Creatinine [Mass/volume] in Serum or PlasmaOrdered By: Sarah Davey on 04-10-2023 Creatinine [Mass/Vol] 1.21 mg/dL 0.60-1.20 [facility] Creatinine [Mass/volume] in UrineOrdered By: Neeraj Farrell on 04-10-2023 Creatinine (U) [Mass/Vol] 131.0 mg/dL 11.0-20.0 [facility] Creatinine, Urine (Random)on 04-10-2023 Creatinine, Urine (Random) 131.0 mg/dL High 11.0-20.0 [facility] Comment on above: Result Comment: PERF ORMED BY: [place] [address] PATHOLOGIST MELTER [employer]PER[employer] FURNACE IAN ACE M.D. Performed By: #### C UBLD, CMP, CBC #### [facility] [address] [place] [address] [place] Dipstick and Microscopicon 1 06-10-2022 Appearance (U) Clear Normal Clear [facility] Comment on above: Order Comment: Name Collection Type:: Clean-Voided Midstream Performed By: #### C UBLD, CMP, CBC #### [facility] [address] [place] [address] [place] Bacteria,Urine None Seen Normal None Seen [facility] Comment on above: Order Comment: Name Collection Type:: Clean-Voided Midstream Performed By: #### C UBLD, CMP, CBC #### [facility] [address] [place] [address] [place] Bilirubin,Urine Negative Normal Negative [facility] Comment on above: Order Comment: Name Collection Type:: Clean-Voided Midstream Performed By: #### C UBLD, CMP, CBC #### [facility] [address] [place] [address] [place] Color (U) Yellow Normal Yellow [facility] Comment on above: Order Comment: Name Collection Type:: Clean-Voided Midstream Performed By: #### C UBLD, CMP, CBC #### [facility] [address] [place] [address] [place] Glucose Ql (U) Normal Normal Normal [facility] Comment on above: Order Comment: Name Collection Type:: Clean-Voided Midstream Performed By: #### C UBLD, CMP, CBC #### [address] Hyaline Casts,Urine 0-8 Normal 0-8 [facility] Comment on above: Order Comment: Name Collection Type:: Clean-Voided Midstream Performed By: #### C UBLD, CMP, CBC #### [address] Ketones Ql (U) Trace High Negative [facility] Comment on above: Order Comment: Name Collection Type:: Clean-Voided Midstream Performed By: #### C UBLD, CMP, CBC #### [address] Leukocyte esterase Test strip Ql (U) 1+ High Negative [facility] Comment on above: Order Comment: Name Collection Type:: Clean-Voided Midstream Performed By: #### C UBLD, CMP, CBC #### [address] Nitrite,Urine Negative Normal Negative [facility] Comment on above: Order Comment: Name Collection Type:: Clean-Voided Midstream Performed By: #### C UBLD, CMP, CBC #### [address] Occult Blood,Urine Negative Normal Negative [facility] Comment on above: Order Comment: Name Collection Type:: Clean-Voided Midstream Result Comment: PERF ORMED BY: [place] [address] PATHOLOGIST MELTER SUPER[employer] IAN ACE M.D. Performed By: #### C UBLD, CMP, CBC #### [place] [address] [place] pH (U) 6.0 [pH] Normal 5.0-9.0 [facility] Comment on above: Order Comment: Name Collection Type:: Clean-Voided Midstream Performed By: #### C UBLD, CMP, CBC #### [place] [address] [place] Protein (U) [Mass/Vol] 100 mg/dL High Negative [facility] Comment on above: Order Comment: Name Collection Type:: Clean-Voided Midstream Performed By: #### C UBLD, CMP, CBC #### [facility] [address] [place] [address] RBC,Urine 1-2 Normal 0-4 [facility] Comment on above: Order Comment: Name Collection Type:: Clean-Voided Midstream Performed By: #### C UBLD, CMP, CBC #### [facility] [address] [place] [address] Specificy Sabinal,Urine 1.034 High 1.001-1.[address] [facility] Comment on above: Order Comment: Name Collection Type:: Clean-Voided Midstream Performed By: #### C UBLD, CMP, CBC #### [address] Squamous Epithelial Cell,Urine 3-4 High 0-2 [facility] Comment on above: Order Comment: Name Collection Type:: Clean-Voided Midstream Performed By: #### C UBLD, CMP, CBC #### [facility] [address] [place] [address] Urobilinogen,Urine Normal Normal Normal [facility] Comment on above: Order Comment: Name Collection Type:: Clean-Voided Midstream Performed By: #### C UBLD, CMP, CBC #### [facility] [address] [place] [address] WBC,Urine 10-19 High 0-4 [facility] Comment on above: Order Comment: Name Collection Type:: Clean-Voided Midstream Performed By: #### C UBLD, CMP, CBC #### [facility] [address] [place] [address] Yeast,Urine None Seen Normal None Seen [facility] Comment on above: Order Comment: Name Collection Type:: Clean-Voided Midstream Result Comment: PERF ORMED BY: [place] [address] PATHOLOGIST MELTER SUPERVIS[employer] IAN ACE M.D. Performed By: #### C UBLD, CMP, CBC #### [facility] [address] [place] [id number] [place] Eosinophils Auto (Bld) [#/Vo l]Ordered By: Sarah Davey on 04-10-2023 Eosinophils (Bld) [#/Vol] 0.1 10*3/uL 0.0-0.45 [facility] Eosinophils/100 WBC Auto (Bl d)Ordered By: Sarah Davey on 04-10-2023 Eosinophils/100 WBC (Bld) 1.0 % . [facility] Erythrocyte Sedimentation Ra emery 04-10-2023 ESR (Bld) [Velocity] mm/h High 0-29 [facility] Comment on above: Result Comment: PERF ORMED BY: [facility] [address] [place] [address] PATHOLOGIST MELTER SUPER[employer] IAN ACE M.D. Performed By: #### G LULS #### Point of Care testing , Erythrocyte distribution wid th Auto (RBC) [Ratio]Ordered By: Sarah Davey on 04-10-2023 Erythrocyte distribution width (RBC) [Ratio] 16.8 % 11.9-15.3 [facility] Erythrocyte sedimentation ra te by Photometric methodOrdered By: Sarahros Davey on 04-10-2023 ESR Photometric method (Bld) [Velocity] > 130 mm/hr 0-29 [facility] Globulin Calc (S) [Mass/Vol] Ordered By: Sarahros Davey on 04-10-2023 Globulin (S) [Mass/Vol] 4.5 g/dL [facility] Glucose [Mass/volume] in Ser um or PlasmaOrdered By: Sarah Davey on 04-10-2023 Glucose [Mass/Vol] 109 mg/dL 70-100 [facility] Comment on above: ADA recommended refe rence rangeRandom Glucose Reference Range is dependent on time and content of last meal. Glucose of more than 200 mg/dL in a nonstressed, ambulatory subject supports the diagnosis of Diabetes Mellitus. Hematocrit Auto (Bld) [Volum e fraction]Ordered By: Sarah Davey on 04-10-2023 Hematocrit (Bld) [Volume fraction] 39.4 % 34.0-46.4 [facility] Hemoglobin [Mass/volume] in BloodOrdered By: Sarahros Davey on 04-10-2023 Hemoglobin (Bld) [Mass/Vol] 12.7 g/dL 11.8-15.4 [facility] Ketones Auto test strip (U) [Mass/Vol]Ordered By: Sarahros Davey on 04-10-2023 Ketones (U) [Mass/Vol] Trace Negative [facility] Laboratory - UrinalysisOrder ed By: Sarahros Davey on 04-10-2023 Hyaline casts LM Ql (Urine sed) 0-8 [LPF] 0-8 [facility] Lactate [Moles/volume] in Se rum or PlasmaOrdered By: Sarah [facility] on 04-10-2023 Lactate [Moles/Vol] 1.3 mmol/L Normal 0.5-2.2 [facility] Comment on above: Result Comment: PERF ORMED BY: [place] [address] PATHOLOGIST MELTER SUPER[employer] IAN ACE M.D. Performed By: #### C UBLD, CMP, CBC #### [address] Leukocytes [#/volume] correc julia for nucleated erythrocytes in Blood by Automated counOrdered By: [facility] Chongmundo on 04-10-2023 WBC corrected for nucl RBC Auto (Bld) [#/Vol] 13.0 10*3/uL 3.8-11.6 [facility] Lymphocytes Auto (Bld) [#/Vo l]Ordered By: [facility] on 04-10-2023 Lymphocytes (Bld) [#/Vol] 0.4 10*3/uL 1.00-4.8 [facility] Lymphocytes/100 WBC Auto (Bl d)Ordered By: [facility] on 04-10-2023 Lymphocytes/100 WBC (Bld) 3.2 % . [facility] MCH Auto (RBC) [Entitic mass ]Ordered By: Sarahros [facility] on 04-10-2023 MCH (RBC) [Entitic mass] 26.3 pg 24.7-34.3 [facility] MCHC Auto (RBC) [Mass/Vol]Or dered By: Sarah Schwarzimore on 04-10-2023 MCHC (RBC) [Mass/Vol] 32.1 g/dL 32.0-35.0 [facility] MCV Auto (RBC) [Entitic vol] Ordered By: Sarah Schwarzimore on 04-10-2023 MCV (RBC) [Entitic vol] 81.8 fL 80-100 [facility] Monocyte distribution width [Entitic volume] in Blood by AutomatedOrdered By: Sarah Schwarzimore on 04-10-2023 Monocyte distribution width Auto (Bld) [Entitic vol] 17.56 % 0.00-20.00 [facility] Monocytes Auto (Bld) [#/Vol] Ordered By: Sarahros Schwarzimore on 04-10-2023 Monocytes (Bld) [#/Vol] 0.6 10*3/uL 0.0-0.8 [facility] Monocytes/100 WBC Auto (Bld) Ordered By: Sarah Schwarzimore on 04-10-2023 Monocytes/100 WBC (Bld) 5.0 % . [facility] Neutrophils Auto (Bld) [#/Vo l]Ordered By: Sarahros Schwarzimore on 04-10-2023 Neutrophils (Bld) [#/Vol] 11.7 10*3/uL 1.8-7.7 [facility] Neutrophils/100 WBC Auto (Bl d)Ordered By: Sarah Schwarzimore on 04-10-2023 Neutrophils/100 WBC (Bld) 90.3 % . [facility] Nitrite Test strip Ql (U)Ord ered By: Sarah Davey on 04-10-2023 Nitrite Ql (U) Negative Negative [facility] No Panel InformationOrdered By: Sarah Davey on 04-10-2023 Estimated GFR (CKD-EPI) 49.429 mL/Min [facility] Creatinine Clearance (Chem 60.88 [facility] Nucleated erythrocytes [Pres ence] in Blood by Automated countOrdered By: Sarah Davey on 04-10-2023 Nucleated RBC Auto Ql (Bld) 0.1 /100{WBC} 0-0.5 [facility] Platelet mean volume Auto (B ld) [Entitic vol]Ordered By: Sarah Bullimore on 04-10-2023 Platelet mean volume (Bld) [Entitic vol] 7.5 fL 6.3-10.7 [facility] Platelets Auto (Bld) [#/Vol] Ordered By: Sarah Bullimore on 04-10-2023 Platelets (Bld) [#/Vol] 474 10*3/uL 150-450 [facility] Potassium [Moles/volume] in Serum or PlasmaOrdered By: Sarah Bullimore on 04-10-2023 Potassium [Moles/Vol] 3.7 mmol/L 3.5-5.1 [facility] Protein Auto test strip (U) [Mass/Vol]Ordered By: Sarah Bullimore on 04-10-2023 Protein (U) [Mass/Vol] 100 mg/dL Negative Fi [facility] Protein [Mass/volume] in Ser um or PlasmaOrdered By: Sarah Bullimore on 04-10-2023 Protein [Mass/Vol] 8.2 g/dL 6.4-8.9 [facility] RBC Auto (Bld) [#/Vol]Ordere d By: Sarah Bullimore on 04-10-2023 RBC (Bld) [#/Vol] 4.82 10*6/uL 3.60-5.00 [facility] Serum or plasma albumin/glob ulin mass ratioOrdered By: Sarah Bullimore on 04-10-2023 Albumin/Globulin [Mass ratio] 0.8 {ratio} [facility] Serum or plasma anion gap de terminationOrdered By: Sarah Bullimore on 04-10-2023 Anion gap [Moles/Vol] 15.3 mmol/L 6.0-15.0 [facility] Sodium [Moles/volume] in Ser um or PlasmaOrdered By: Sarah Bullimore on 04-10-2023 Sodium [Moles/Vol] 129 mmol/L 136-145 [facility] Sodium [Moles/volume] in Uri neOrdered By: Neeraj Farrell on 04-10-2023 Sodium (U) [Moles/Vol] mmol/L Fi [facility] Comment on above: No reference range e stablished Sodium, Urineon 04-10-2023 Sodium, Urine < 10.[address] [facility] Comment on above: Result Comment: No r eference range established Performed By: #### C UBLD, CMP, CBC #### [facility] [address] Specific gravity Auto test s trip (U) [Rel density]Ordered By: Sarah Davey on 04-10-2023 Specific gravity (U) [Rel density] 1.034 1.001-1.[address] [facility] Squamous epithelial cells de tection in urine sediment by light microscopyOrdered By: Sarah Davey on 04-10-2023 Epithelial cells.squamous LM Ql (Urine sed) 3-4 [HPF] 0-2 [facility] Superficial Wound Cultureon 04-10-2023 Superficial Wound Culture ORGANISM: Klebsiella oxytoca (O:KLEOXY) Quantity of Growth Moderate Growth ORGANISM: Providencia rettgeri (O:PRORET) Quantity of Growth Moderate Growth ORGANISM: Gram Negative Bacilli (O:GNB) Comments . Quantity of Growth Heavy Growth Send Test to Ref. Lab Sent to [facility] for ID/PASTORA ORGANISM: Morganella morganii (O:MORMOR) Carbapenemase [Type] in Isolate by [employer] INTER[employer] Organism negative for carbapenemase (CRE) Quantity of [...] = Intermediate; R = Resistant Performed at: [address] [id number] Juvenile Justice Specialist: Mohsen Mccarthy PhD, Phone: [phone] Aerobic PASTORA Charge (NMIC56) SUSCEPTIBILITY ORGANISM: O:KLEOXY [...] RESISTANT TO ALL B-LACTAM DRUGS. PERFORMED BY: [place] [address] PATHOLOGIST MELTER SUPERVISOR [employer] FURNACE IAN ACE M.D. [facility] Comment on above: Performed By: #### C USUP #### [address] Superficial Wound Culture ORGANISM: Serratia marcescens [...] = Intermediate; R = Resistant Performed at: [address] [id number] Juvenile Justice Specialist: Mohsen Mccarthy PhD, Phone: [phone] Aerobic PASTORA Charge (NMIC56) SUSCEPTIBILITY ORGANISM: O:SERMAR [...] RESISTANT TO ALL B-LACTAM DRUGS. PERFORMED BY: [place] [address] PATHOLOGIST MELTER SUPERVISOR [employer] FURNACE IAN ACE M.D. [facility] Comment on above: Performed By: #### C GIORGI, ALEXX, CBC #### [facility] [address] [place] [address] Urea nitrogen [Mass/volume] in Serum or PlasmaOrdered By: Sarah Davey on 04-10-2023 Urea nitrogen [Mass/Vol] 43 mg/dL 12-30 [facility] Urine Cultureon 04-10-2023 Bacteria identified Cx Nom (U) >100,000 colonies/ml mixed bacterial skin contaminants 2 Days PERFORMED BY: [place] [address] PATHOLOGIST MELTER SUPERVIS[employer] FURNACE IAN ACE M.D. [facility] Comment on above: Performed By: #### C UBPREMA, CMP, CBC #### [facility] [address] [place] [address] [facility] Urine bacteria detection by automated methodOrdered By: Sarah Davey on 04-10-2023 Bacteria Auto Ql (U) None seen None Seen [facility] Urine clarity by refractomet ry automatedOrdered By: Sarah Davey on 04-10-2023 Clarity Refractometry automated (U) Clear Clear [facility] Urine culture routineOrdered By: Sarah Davey on 04-10-2023 Bacteria identified Cx Nom (U) [address] [facility] Urine glucose measurement by automated test strip (mass/volume)Ordered By: Sarah Davey on 04-10-2023 Glucose Auto test strip (U) [Mass/Vol] Normal mg/dL Normal [facility] Urine hemoglobin detection b y automated test stripOrdered By: Sarah Davey on 04-10-2023 Hemoglobin Auto test strip Ql (U) Negative Negative [facility] Urine leukocyte esterase det ection by automated test stripOrdered By: Sarah Davey on 04-10-2023 Leukocyte esterase Auto test strip Ql (U) 1+ Negative [facility] Urobilinogen Auto test strip (U) [Mass/Vol]Ordered By: Sarah Davey on 04-10-2023 Urobilinogen (U) [Mass/Vol] Normal mg/dL Normal [facility] WBC Auto (Bld) [#/Vol]Ordere d By: Sarah Davey on 04-10-2023 WBC (Bld) [#/Vol] 13.0 10*3/uL 3.8-11.6 [facility] Yeast detection in urine sed iment by light microscopyOrdered By: Sarah Davey on 04-10-2023 Yeast LM Ql (Urine sed) None seen [HPF] None Seen [facility] pH Auto test strip (U)Ordere d By: Sarah Davey on 04-10-2023 pH (U) 6.0 [pH] 5.0-9.0 [facility] XR tibia/fibula BIon 10-31-2 023 XR tibia/fibula BI [facility] [address] [place] [address] [place] [address] XRay Report Signed Patient: [place] Cesar MR#: [id number] : 1955 Acct:[id number] Age/Sex: 67 / F ADM Date: 04/07/23 Loc: ER Room: Type: [facility] ER Attending Dr: Copies to: Jhonatan [...] NOTED. Impression dictated by: Andrew Johnson Jr., D.OJohnnie04/07/2023 9:00 AM Dictation Location: [place] [address] Transcribed By: [facility] 04/07/23 09 Dictated By: Andrew Johnson Jr, DO 04/07/23 0859 Signed By: 04/07/[address] [facility] Alanine aminotransferase [En zymatic activity/volume] in Serum or PlasmaOrdered By: Chon Valdez on 12-31-2022 ALT [Catalytic activity/Vol] 29 U/L 7-52 [facility] Albumin [Mass/volume] in Ser um or Plasma by Bromocresol green (BCG) dye binding methoOrdered By: Chon Valdez on 12-31-2022 Albumin BCG dye [Mass/Vol] 3.7 g/dL 3.5-5.7 [facility] Alkaline phosphatase [Enzyma tic activity/volume] in Serum or PlasmaOrdered By: Chon Valdez on 12-31-2022 ALP [Catalytic activity/Vol] 97 U/L 34-104 [facility] Aspartate aminotransferase [ Enzymatic activity/volume] in Serum or PlasmaOrdered By: Chon Valdez on 12-31-2022 AST [Catalytic activity/Vol] 34 U/L 13-39 [facility] Basophils Auto (Bld) [#/Vol] Ordered By: Chon Valdez on 12-31-2022 Basophils (Bld) [#/Vol] 0.0 10*3/uL 0.0-0.2 [facility] [facility]100 WBC Auto (Bld) Ordered By: Chon Valdez on 12-31-2022 Basophils/100 WBC (Bld) 0.4 % . [facility] Bilirubin.total [Mass/volume ] in Serum or PlasmaOrdered By: Chon Valdez on 12-31-2022 Bilirubin [Mass/Vol] 0.3 mg/dL 0.3-1.0 [facility] Calcium [Mass/volume] in Ser um or PlasmaOrdered By: Chon Valdez on 12-31-2022 Calcium [Mass/Vol] 9.0 mg/dL 8.6-10.3 [facility] Carbon dioxide, total [Moles /volume] in Serum or PlasmaOrdered By: Chon Valdez on 12-31-2022 CO2 [Moles/Vol] 24.9 mmol/L 21.0-31.0 [facility] Chloride [Moles/volume] in S marivel or PlasmaOrdered By: Chon Valdez on 12-31-2022 Chloride [Moles/Vol] 106 mmol/L 98-107 [facility] Complete Blood Count Auto Di ffon 12-31-2022 Basophils (Bld) [#/Vol] 0.0 10*3/uL Normal 0.0-0.2 [facility] Comment on above: Result Comment: PERF ORMED BY: [facility] [address] [place] [address] PATHOLOGIST [employer]ELTER [employer]PER[employer] FURNACE IAN ACE M.D. Performed By: #### G LULS #### Point of Care testing , Basophils/100 WBC (Bld) 0.4 % Normal . [facility] Comment on above: Performed By: #### G LULS #### Point of Care testing , Eosinophils (Bld) [#/Vol] 0.3 10*3/uL Normal 0.0-0.45 [facility] Comment on above: Performed By: #### G LULS #### Point of Care testing , Eosinophils/100 WBC (Bld) 3.9 % Normal . [facility] Comment on above: Performed By: #### Jodi CARDLS #### Point of Care testing , Erythrocyte distribution width (RBC) [Ratio] 17.3 % High 11.9-15.3 [facility] Comment on above: Performed By: #### Jodi CARDLS #### Point of Care testing , Hematocrit (Bld) [Volume fraction] 35.9 % Normal 34.0-46.4 [facility] Comment on above: Performed By: #### Jodi CARDLS #### Point of Care testing , Hemoglobin (Bld) [Mass/Vol] 11.6 g/dL Low 11.8-15.4 [facility] Comment on above: Performed By: #### Jodi AHMADI #### Point of Care testing , Lymphocytes (Bld) [#/Vol] 0.8 10*3/uL Low 1.00-4.8 [facility] Comment on above: Performed By: #### Jodi CARDLS #### Point of Care testing , Lymphocytes/100 WBC (Bld) 9.3 % Normal . [facility] Comment on above: Performed By: #### Jodi AHMADI #### Point of Care testing , MCH (RBC) [Entitic mass] 26.1 pg Normal 24.7-34.3 [facility] Comment on above: Performed By: #### Jodi AHMADI #### Point of Care testing , MCV (RBC) [Entitic vol] 80.5 fL Normal 80-100 [facility] Comment on above: Performed By: #### Jodi AHMADI #### Point of Care testing , Mean Corpuscular HGB Conc 32.5 g/dL Normal 32.0-35.0 [facility] Comment on above: Performed By: #### Jodi CARDLS #### Point of Care testing , Monocytes (Bld) [#/Vol] 0.9 10*3/uL High 0.0-0.8 [facility] Comment on above: Performed By: #### Jodi AHMADI #### Point of Care testing , Monocytes/100 WBC (Bld) 19.53 % Normal 0.00-20.00 [facility] Comment on above: Performed By: #### Jodi AHMADI #### Point of Care testing , Monocytes/100 WBC (Bld) 11.2 % Normal . [facility] Comment on above: Performed By: #### Jodi AHMADI #### Point of Care testing , Neutrophils (Bld) [#/Vol] 6.1 10*3/uL Normal 1.8-7.7 [facility] Comment on above: Performed By: #### Jodi AHMADI #### Point of Care testing , Neutrophils/100 WBC (Bld) 75.2 % Normal . [facility] Comment on above: Performed By: #### Jodi AHMADI #### Point of Care testing , NRBC% 0.1 /100{WBC} Normal 0-0.5 [facility] Comment on above: Performed By: #### Jodi AHMADI #### Point of Care testing , Platelet mean volume (Bld) [Entitic vol] 7.9 fL Normal 6.3-10.7 [facility] Comment on above: Performed By: #### Jodi AHMADI #### Point of Care testing , Platelets (Bld) [#/Vol] 258 10*3/uL Normal 150-450 [facility] Comment on above: Performed By: #### Jodi AHMADI #### Point of Care testing , RBC (Bld) [#/Vol] 4.46 10*6/uL Normal 3.60-5.00 [facility] Comment on above: Performed By: #### Jodi CARDLS #### Point of Care testing , WBC (Bld) [#/Vol] 8.2 10*3/uL Normal 3.8-11.6 [facility] Comment on above: Performed By: #### Jodi AHMADI #### Point of Care testing , Comprehensive Metabolic Pane jeremy 12-31-2022 Albumin [Mass/Vol] 3.7 g/dL Normal 3.5-5.7 [facility] Comment on above: Performed By: #### Jodi AHMADI #### Point of Care testing , Albumin/Globulin [Mass ratio] 1.3 {ratio} Normal [facility] Comment on above: Performed By: #### G DAIANA #### Point of Care testing , ALP [Catalytic activity/Vol] 97 U/L Normal 34-104 [facility] Comment on above: Performed By: #### G DAIANA #### Point of Care testing , ALT [Catalytic activity/Vol] 29 U/L Normal 7-52 [facility] Comment on above: Performed By: #### G KYAWLS #### Point of Care testing , Anion gap [Moles/Vol] 11.3 mmol/L Normal 6.0-15.0 [facility] Comment on above: Performed By: #### G DAIANA #### Point of Care testing , AST [Catalytic activity/Vol] 34 U/L Normal 13-39 [facility] Comment on above: Performed By: #### G DAIANA #### Point of Care testing , Bilirubin [Mass/Vol] 0.3 mg/dL Normal 0.3-1.0 [facility] Comment on above: Performed By: #### G DAIANA #### Point of Care testing , Calcium [Mass/Vol] 9.0 mg/dL Normal 8.6-10.3 [facility] Comment on above: Performed By: #### G DAIANA #### Point of Care testing , Chloride [Moles/Vol] 106 mmol/L Normal 98-107 [facility] Comment on above: Performed By: #### G DAIANA #### Point of Care testing , CO2 [Moles/Vol] 24.9 mmol/L Normal 21.0-31.0 [facility] Comment on above: Performed By: #### G DAIANA #### Point of Care testing , Creatinine [Mass/Vol] 0.75 mg/dL Normal 0.60-1.20 [facility] Comment on above: Performed By: #### G DAIANA #### Point of Care testing , Creatinine Clr Calc Pharmacy 97.[address] [facility] Comment on above: Result Comment: PERF ORMED BY: [facility] [address] [place] [address] PATHOLOGIST MELTER SUPER[employer] FURNACE IAN ACE M.D. Performed By: #### G LULS #### Point of Care testing , GFR/1.73 sq M.predicted MDRD (S/P/Bld) [Vol rate/Area] mL/min/{1.73_m2} [facility] Comment on above: Performed By: #### G LULS #### Point of Care testing , Globulin (S) [Mass/Vol] 2.9 g/dL [facility] Comment on above: Performed By: #### G LULS #### Point of Care testing , Glucose [Mass/Vol] 108 mg/dL High 70-100 [facility] Comment on above: Result Comment: [place] Glucose Reference Range is dependent on time and content of last meal. Glucose of more than 200 mg/dL in a nonstressed, ambulatory subject supports the diagnosis of Diabetes Mellitus. ADA recommended reference range Performed By: #### G LULS #### Point of Care testing , Potassium [Moles/Vol] 4.2 mmol/L Normal 3.5-5.1 [facility] Comment on above: Performed By: #### G LULS #### Point of Care testing , Protein [Mass/Vol] 6.6 g/dL Normal 6.4-8.9 [facility] Comment on above: Performed By: #### G LULS #### Point of Care testing , Sodium [Moles/Vol] 138 mmol/L Normal 136-145 [facility] Comment on above: Performed By: #### G LULS #### Point of Care testing , Urea nitrogen [Mass/Vol] 36 mg/dL High 7-25 [facility] Comment on above: Performed By: #### G LULS #### Point of Care testing , Creatinine [Mass/volume] in Serum or PlasmaOrdered By: Chon Valdez on 12-31-2022 Creatinine [Mass/Vol] 0.75 mg/dL 0.60-1.20 [facility] Eosinophils Auto (Bld) [#/Vo l]Ordered By: Chon Valdez on 12-31-2022 Eosinophils (Bld) [#/Vol] 0.3 10*3/uL 0.0-0.45 [facility] Eosinophils/100 WBC Auto (Bl d)Ordered By: Chon Valdez on 12-31-2022 Eosinophils/100 WBC (Bld) 3.9 % . [facility] Erythrocyte distribution wid th Auto (RBC) [Ratio]Ordered By: Chon Valdez on 12-31-2022 Erythrocyte distribution width (RBC) [Ratio] 17.3 % 11.9-15.3 [facility] Globulin Calc (S) [Mass/Vol] Ordered By: Chon Valdez on 12-31-2022 Globulin (S) [Mass/Vol] 2.9 g/dL [facility] Glucose [Mass/volume] in Ser um or PlasmaOrdered By: Chon Valdez on 12-31-2022 Glucose [Mass/Vol] 108 mg/dL 70-100 [facility] Comment on above: ADA recommended refe rence rangeRandom Glucose Reference Range is dependent on time and content of last meal. Glucose of more than 200 mg/dL in a nonstressed, ambulatory subject supports the diagnosis of Diabetes Mellitus. Hematocrit Auto (Bld) [Volum e fraction]Ordered By: Chon Valdez on 12-31-2022 Hematocrit (Bld) [Volume fraction] 35.9 % 34.0-46.4 [facility] Hemoglobin [Mass/volume] in BloodOrdered By: Chon Valdez on 12-31-2022 Hemoglobin (Bld) [Mass/Vol] 11.6 g/dL 11.8-15.4 [facility] Leukocytes [#/volume] correc julia for nucleated erythrocytes in Blood by Automated counOrdered By: Chon Valdez on 12-31-2022 WBC corrected for nucl RBC Auto (Bld) [#/Vol] 8.2 10*3/uL 3.8-11.6 [facility] Lymphocytes Auto (Bld) [#/Vo l]Ordered By: Chon Valdez on 12-31-2022 Lymphocytes (Bld) [#/Vol] 0.8 10*3/uL 1.00-4.8 [facility] Lymphocytes/100 WBC Auto (Bl d)Ordered By: Chon Valdez on 12-31-2022 Lymphocytes/100 WBC (Bld) 9.3 % . [facility] MCH Auto (RBC) [Entitic mass ]Ordered By: Chon Valdez on 12-31-2022 MCH (RBC) [Entitic mass] 26.1 pg 24.7-34.3 [facility] MCHC Auto (RBC) [Mass/Vol]Or dered By: Chon Valdez on 12-31-2022 MCHC (RBC) [Mass/Vol] 32.5 g/dL 32.0-35.0 [facility] MCV Auto (RBC) [Entitic vol] Ordered By: Chon Valdez on 12-31-2022 MCV (RBC) [Entitic vol] 80.5 fL 80-100 [facility] Monocyte distribution width [Entitic volume] in Blood by AutomatedOrdered By: Chon Valdez on 12-31-2022 Monocyte distribution width Auto (Bld) [Entitic vol] 19.53 % 0.00-20.00 [facility] Monocytes Auto (Bld) [#/Vol] Ordered By: Chon Valdez on 12-31-2022 Monocytes (Bld) [#/Vol] 0.9 10*3/uL 0.0-0.8 [facility] Monocytes/100 WBC Auto (Bld) Ordered By: Chon Valdez on 12-31-2022 Monocytes/100 WBC (Bld) 11.2 % . [facility] Neutrophils Auto (Bld) [#/Vo l]Ordered By: Chon Valdez on 12-31-2022 Neutrophils (Bld) [#/Vol] 6.1 10*3/uL 1.8-7.7 [facility] Neutrophils/100 WBC Auto (Bl d)Ordered By: Chon Valdez on 12-31-2022 Neutrophils/100 WBC (Bld) 75.2 % . [facility] No Panel InformationOrdered By: Chon Valdez on 12-31-2022 Estimated GFR (CKD-EPI) > 60.0 mL/Min [facility] Creatinine Clearance (Chem 97.74 [facility] Nucleated erythrocytes [Pres ence] in Blood by Automated countOrdered By: Chon Valdez on 12-31-2022 Nucleated RBC Auto Ql (Bld) 0.1 /100{WBC} 0-0.5 [facility] Platelet mean volume Auto (B ld) [Entitic vol]Ordered By: Chon Valdez on 12-31-2022 Platelet mean volume (Bld) [Entitic vol] 7.9 fL 6.3-10.7 [facility] Platelets Auto (Bld) [#/Vol] Ordered By: Chon Valdez on 12-31-2022 Platelets (Bld) [#/Vol] 258 10*3/uL 150-450 [facility] Potassium [Moles/volume] in Serum or PlasmaOrdered By: Chon Valdez on 12-31-2022 Potassium [Moles/Vol] 4.2 mmol/L 3.5-5.1 [facility] Protein [Mass/volume] in Ser um or PlasmaOrdered By: Chon Valdez on 12-31-2022 Protein [Mass/Vol] 6.6 g/dL 6.4-8.9 [facility] RBC Auto (Bld) [#/Vol]Ordere d By: Chon Valdez on 12-31-2022 RBC (Bld) [#/Vol] 4.46 10*6/uL 3.60-5.00 [facility] Serum or plasma albumin/glob ulin mass ratioOrdered By: Chon Valdez on 12-31-2022 Albumin/Globulin [Mass ratio] 1.3 {ratio} [facility] Serum or plasma anion gap de terminationOrdered By: Chon Valdez on 12-31-2022 Anion gap [Moles/Vol] 11.3 mmol/L 6.0-15.0 [facility] Sodium [Moles/volume] in Ser um or PlasmaOrdered By: Chon Valdez on 12-31-2022 Sodium [Moles/Vol] 138 mmol/L 136-145 [facility] Urea nitrogen [Mass/volume] in Serum or PlasmaOrdered By: Chon Valdez on 12-31-2022 Urea nitrogen [Mass/Vol] 36 mg/dL 7-25 [facility] WBC Auto (Bld) [#/Vol]Ordere d By: Chon Valdez on 12-31-2022 WBC (Bld) [#/Vol] 8.2 10*3/uL 3.8-11.6 [facility] Complete Blood Count Auto Di ffon 12-14-2022 Basophils (Bld) [#/Vol] 0.1 10*3/uL Normal 0.0-0.2 [facility] Comment on above: Result Comment: PERF ORMED BY: [place] [address] PATHOLOGIST MELTER SUPERVIS[employer]URNACE IAN ACE M.D. Performed By: #### L ACTIC, CMP, CBC #### [facility] [address] Basophils/100 WBC (Bld) 1.0 % Normal . [facility] Comment on above: Performed By: #### L ACTIC, CMP, CBC #### [facility] [address] [place] [address] [place] Eosinophils (Bld) [#/Vol] 0.4 10*3/uL Normal 0.0-0.45 [facility] Comment on above: Performed By: #### L ACTIC, CMP, CBC #### [address] Eosinophils/100 WBC (Bld) 4.9 % Normal . [facility] Comment on above: Performed By: #### L ACTIC, CMP, CBC #### [facility] [address] [place] [address] Erythrocyte distribution width (RBC) [Ratio] 17.6 % High 11.9-15.3 [facility] Comment on above: Performed By: #### L ACTIC, CMP, CBC #### [facility] [address] [place] [address] [place] Hematocrit (Bld) [Volume fraction] 36.1 % Normal 34.0-46.4 [facility] Comment on above: Performed By: #### L ACTIC, CMP, CBC #### [facility] [address] [place] [address] [place] Hemoglobin (Bld) [Mass/Vol] 11.6 g/dL Low 11.8-15.4 [facility] Comment on above: Performed By: #### L ACTIC, CMP, CBC #### [facility] [address] Lymphocytes (Bld) [#/Vol] 1.3 10*3/uL Normal 1.00-4.8 [facility] Comment on above: Performed By: #### L ACTIC, CMP, CBC #### [facility] [address] Lymphocytes/100 WBC (Bld) 17.2 % Normal . [facility] Comment on above: Performed By: #### L ACTIC, CMP, CBC #### [address] MCH (RBC) [Entitic mass] 25.9 pg Normal 24.7-34.3 [facility] Comment on above: Performed By: #### L ACTIC, CMP, CBC #### [address] MCV (RBC) [Entitic vol] 80.4 fL Normal 80-100 [facility] Comment on above: Performed By: #### L ACTIC, CMP, CBC #### [address] Mean Corpuscular HGB Conc 32.2 g/dL Normal 32.0-35.0 [facility] Comment on above: Performed By: #### L ACTIC, CMP, CBC #### [place] [address] [place] Monocytes (Bld) [#/Vol] 0.7 10*3/uL Normal 0.0-0.8 [facility] Comment on above: Performed By: #### L ACTIC, CMP, CBC #### [place] [address] [place] Monocytes/100 WBC (Bld) 19.39 % Normal 0.00-20.00 [facility] Comment on above: Performed By: #### L ACTIC, CMP, CBC #### [place] [address] [place] Monocytes/100 WBC (Bld) 9.1 % Normal . [facility] Comment on above: Performed By: #### L ACTIC, CMP, CBC #### [facility] [address] Neutrophils (Bld) [#/Vol] 5.0 10*3/uL Normal 1.8-7.7 [facility] Comment on above: Performed By: #### L ACTIC, CMP, CBC #### [facility] [address] Neutrophils/100 WBC (Bld) 67.8 % Normal . [facility] Comment on above: Performed By: #### L ACTIC, CMP, CBC #### [facility] [address] NRBC% 0.1 /100{WBC} Normal 0-0.5 [facility] Comment on above: Performed By: #### L ACTIC, CMP, CBC #### [address] Platelet mean volume (Bld) [Entitic vol] 8.0 fL Normal 6.3-10.7 [facility] Comment on above: Performed By: #### L ACTIC, CMP, CBC #### [place] [address] [place] Platelets (Bld) [#/Vol] 204 10*3/uL Normal 150-450 [facility] Comment on above: Performed By: #### L ACTIC, CMP, CBC #### [facility] [address] [place] [address] [place] RBC (Bld) [#/Vol] 4.49 10*6/uL Normal 3.60-5.00 [facility] Comment on above: Performed By: #### L ACTIC, CMP, CBC #### [place] [address] [place] WBC (Bld) [#/Vol] 7.4 10*3/uL Normal 3.8-11.6 [facility] Comment on above: Performed By: #### L ACTIC, CMP, CBC #### [address] [address] [place] Comprehensive Metabolic Pane jeremy 12-14-2022 Albumin [Mass/Vol] 4.0 g/dL Normal 3.5-5.7 [facility] Comment on above: Performed By: #### L ACTPERCY CMP, CBC #### [facility] [address] Albumin/Globulin [Mass ratio] 1.4 {ratio} Normal [facility] Comment on above: Performed By: #### L ACTPERCY CMP, CBC #### [facility] [address] ALP [Catalytic activity/Vol] 81 U/L Normal 34-104 [facility] Comment on above: Performed By: #### L ACTPERCY CMP, CBC #### [facility] [address] ALT [Catalytic activity/Vol] 21 U/L Normal 7-52 [facility] Comment on above: Performed By: #### L ACTPERCY CMP, CBC #### [facility] [address] Anion gap [Moles/Vol] 12.1 mmol/L Normal 6.0-15.0 [facility] Comment on above: Performed By: #### L ACTPERCY CMP, CBC #### [facility] [address] AST [Catalytic activity/Vol] 22 U/L Normal 13-39 [facility] Comment on above: Performed By: #### L ACTPERCY CMP, CBC #### [facility] [address] [place] [address] [place] Bilirubin [Mass/Vol] 0.3 mg/dL Normal 0.3-1.0 [facility] Comment on above: Performed By: #### L ACTPERCY CMP, CBC #### [facility] [address] [place] [id number] [facility] Calcium [Mass/Vol] 8.9 mg/dL Normal 8.6-10.3 [facility] Comment on above: Performed By: #### L ACTPERCY CMP, CBC #### [facility] [address] [place] [address] [place] Chloride [Moles/Vol] 106 mmol/L Normal 98-107 [facility] Comment on above: Performed By: #### L ALEXX ADLER, CBC #### [facility] [address] CO2 [Moles/Vol] 27.1 mmol/L Normal 21.0-31.0 [facility] Comment on above: Performed By: #### L ALEXX ADLER, CBC #### [facility] [address] Creatinine [Mass/Vol] 0.94 mg/dL Normal 0.60-1.20 [facility] Comment on above: Performed By: #### L ALEXX ADLER, CBC #### [address] Creatinine Clr Calc Pharmacy 86.[address] [facility] Comment on above: Result Comment: PERF ORMED BY: [place] [address] PATHOLOGIST MELTER SUPERVIS[employer] FURNACE IAN ACE M.D. Performed By: #### L ALEXX ADLER, CBC #### [address] GFR/1.73 sq M.predicted MDRD (S/P/Bld) [Vol rate/Area] mL/min/{1.73_m2} [facility] Comment on above: Performed By: #### L ALEXX ADLER, CBC #### [facility] [address] [place] [address] [place] Globulin (S) [Mass/Vol] 2.9 g/dL [facility] Comment on above: Performed By: #### L ALEXX ADLER, CBC #### [address] Glucose [Mass/Vol] 98 mg/dL Normal 70-100 [facility] Comment on above: Result Comment: [facility] Glucose Reference Range is dependent on time and content of last meal. Glucose of more than 200 mg/dL in a nonstressed, ambulatory subject supports the diagnosis of Diabetes Mellitus. ADA recommended reference range Performed By: #### L ACTIC CMP, CBC #### [facility] [address] [place] [address] Potassium [Moles/Vol] 4.2 mmol/L Normal 3.5-5.1 [facility] Comment on above: Performed By: #### L ACTIC CMP, CBC #### [address] Protein [Mass/Vol] 6.9 g/dL Normal 6.4-8.9 [facility] Comment on above: Performed By: #### L ACTPERCY CMP, CBC #### [address] Sodium [Moles/Vol] 141 mmol/L Normal 136-145 [facility] Comment on above: Performed By: #### L ACTPERCY CMP, CBC #### [address] Urea nitrogen [Mass/Vol] 24 mg/dL Normal 7-25 [facility] Comment on above: Performed By: #### L ACTPERCY CMP, CBC #### [address] Lactic Acidon 12-14-2022 Lactate [Moles/Vol] 0.9 mmol/L Normal 0.5-2.2 [facility] Comment on above: Result Comment: PERF ORMED BY: [place] [address] PATHOLOGIST MELTER SUPERVIS[employer] FURNACE IAN ACE M.D. Performed By: #### L ACTIC, CMP, CBC #### [address] Superficial Wound Cultureon 12-14-2022 Superficial Wound Culture Claudia haemulonii results called at 1420 on 12/18/22. ORGANISM: Pseudomonas aeruginosa (O:PSEAER) Carbapenemase [Type] in Isolate by [employer] Organism negative for carbapenemase (CRE) Quantity of [...] RESISTANT TO ALL B-LACTAM DRUGS. PERFORMED BY: [address] [place] [address] PATHOLOGIST MELTER SUPERVISOR [employer] FURNACE IAN ACE M.D. [facility] Comment on above: Performed By: #### C UBLD, CMP, CBC #### [address] Alanine aminotransferase [En zymatic activity/volume] in Serum or PlasmaOrdered By: Chon Valdez on 12-13-2022 ALT [Catalytic activity/Vol] 21 U/L 7-52 [facility] Albumin [Mass/volume] in Ser um or Plasma by Bromocresol green (BCG) dye binding methoOrdered By: Chon Valdez on 12-13-2022 Albumin BCG dye [Mass/Vol] 4.0 g/dL 3.5-5.7 [facility] Alkaline phosphatase [Enzyma tic activity/volume] in Serum or PlasmaOrdered By: Chon Valdez on 12-13-2022 ALP [Catalytic activity/Vol] 81 U/L 34-104 [facility] Aspartate aminotransferase [ Enzymatic activity/volume] in Serum or PlasmaOrdered By: Chon Valdez on 12-13-2022 AST [Catalytic activity/Vol] 22 U/L 13-39 [facility] Bacteria identified Aer cx N om (Unsp spec)Ordered By: Chon Valdez on 12-13-2022 Superficial Wound Culture Pseudomonas aeruginosa [facility] Superficial Wound Culture Enterococcus faecalis [facility] Superficial Wound Culture [facility] Superficial Wound Culture Methicillin Resis Staph Aureus [facility] Superficial Wound Culture Claudia haemulonii [facility] Basophils Auto (Bld) [#/Vol] Ordered By: Chon Valdez on 12-13-2022 Basophils (Bld) [#/Vol] 0.1 10*3/uL 0.0-0.2 [facility] Basophils/100 WBC Auto (Bld) Ordered By: Chon Valdez on 12-13-2022 Basophils/100 WBC (Bld) 1.0 % . [facility] Bilirubin.total [Mass/volume ] in Serum or PlasmaOrdered By: Chon Valdez on 12-13-2022 Bilirubin [Mass/Vol] 0.3 mg/dL 0.3-1.0 [facility] Calcium [Mass/volume] in Ser um or PlasmaOrdered By: Chon Valdez on 12-13-2022 Calcium [Mass/Vol] 8.9 mg/dL 8.6-10.3 [facility] Carbon dioxide, total [Moles /volume] in Serum or PlasmaOrdered By: Chon Valdez on 12-13-2022 CO2 [Moles/Vol] 27.1 mmol/L 21.0-31.0 [facility] Chloride [Moles/volume] in S amrivel or PlasmaOrdered By: Chon Valdez on 12-13-2022 Chloride [Moles/Vol] 106 mmol/L 98-107 [facility] Creatinine [Mass/volume] in Serum or PlasmaOrdered By: Chon Valdez on 12-13-2022 Creatinine [Mass/Vol] 0.94 mg/dL 0.60-1.20 [facility] Eosinophils Auto (Bld) [#/Vo l]Ordered By: Chon Valdez on 12-13-2022 Eosinophils (Bld) [#/Vol] 0.4 10*3/uL 0.0-0.45 [facility] Eosinophils/100 WBC Auto (Bl d)Ordered By: Chon Valdez on 12-13-2022 Eosinophils/100 WBC (Bld) 4.9 % . [facility] Erythrocyte distribution wid th Auto (RBC) [Ratio]Ordered By: Chon Valdez on 12-13-2022 Erythrocyte distribution width (RBC) [Ratio] 17.6 % 11.9-15.3 [facility] Globulin Calc (S) [Mass/Vol] Ordered By: Chon Valdez on 12-13-2022 Globulin (S) [Mass/Vol] 2.9 g/dL [facility] Glucose [Mass/volume] in Ser um or PlasmaOrdered By: Chon Valdez on 12-13-2022 Glucose [Mass/Vol] 98 mg/dL 70-100 [facility] Comment on above: ADA recommended refe rence rangeRandom Glucose Reference Range is dependent on time and content of last meal. Glucose of more than 200 mg/dL in a nonstressed, ambulatory subject supports the diagnosis of Diabetes Mellitus. Hematocrit Auto (Bld) [Volum e fraction]Ordered By: Chon Valdez on 12-13-2022 Hematocrit (Bld) [Volume fraction] 36.1 % 34.0-46.4 [facility] Hemoglobin [Mass/volume] in BloodOrdered By: Chon Valdez on 12-13-2022 Hemoglobin (Bld) [Mass/Vol] 11.6 g/dL 11.8-15.4 [facility] Lactate [Moles/volume] in Se rum or PlasmaOrdered By: Chon Valdez on 12-13-2022 Lactate [Moles/Vol] 0.9 mmol/L 0.5-2.2 [facility] Leukocytes [#/volume] correc julia for nucleated erythrocytes in Blood by Automated counOrdered By: Chon Valdez on 12-13-2022 WBC corrected for nucl RBC Auto (Bld) [#/Vol] 7.4 10*3/uL 3.8-11.6 [facility] Lymphocytes Auto (Bld) [#/Vo l]Ordered By: Chon Valdez on 12-13-2022 Lymphocytes (Bld) [#/Vol] 1.3 10*3/uL 1.00-4.8 [facility] Lymphocytes/100 WBC Auto (Bl d)Ordered By: Chon Valdez on 12-13-2022 Lymphocytes/100 WBC (Bld) 17.2 % . [facility] MCH Auto (RBC) [Entitic mass ]Ordered By: Chon Valdez on 12-13-2022 MCH (RBC) [Entitic mass] 25.9 pg 24.7-34.3 [facility] MCHC Auto (RBC) [Mass/Vol]Or dered By: Chon Valdez on 12-13-2022 MCHC (RBC) [Mass/Vol] 32.2 g/dL 32.0-35.0 [facility] MCV Auto (RBC) [Entitic vol] Ordered By: Chon Valdez on 12-13-2022 MCV (RBC) [Entitic vol] 80.4 fL 80-100 [facility] Monocyte distribution width [Entitic volume] in Blood by AutomatedOrdered By: Chon Valdez on 12-13-2022 Monocyte distribution width Auto (Bld) [Entitic vol] 19.39 % 0.00-20.00 [facility] Monocytes Auto (Bld) [#/Vol] Ordered By: Chon Valdez on 12-13-2022 Monocytes (Bld) [#/Vol] 0.7 10*3/uL 0.0-0.8 [facility] Monocytes/100 WBC Auto (Bld) Ordered By: Chon Valdez on 12-13-2022 Monocytes/100 WBC (Bld) 9.1 % . [facility] Neutrophils Auto (Bld) [#/Vo l]Ordered By: Chon Valdez on 12-13-2022 Neutrophils (Bld) [#/Vol] 5.0 10*3/uL 1.8-7.7 [facility] Neutrophils/100 WBC Auto (Bl d)Ordered By: Chon Valdez on 12-13-2022 Neutrophils/100 WBC (Bld) 67.8 % . [facility] No Panel InformationOrdered By: Chon Valdez on 12-13-2022 Estimated GFR (CKD-EPI) > 60.0 mL/Min [facility] Creatinine Clearance (Chem 86.28 [facility] Nucleated erythrocytes [Pres ence] in Blood by Automated countOrdered By: Chon Valdez on 12-13-2022 Nucleated RBC Auto Ql (Bld) 0.1 /100{WBC} 0-0.5 [facility] Platelet mean volume Auto (B ld) [Entitic vol]Ordered By: Chon Valdez on 12-13-2022 Platelet mean volume (Bld) [Entitic vol] 8.0 fL 6.3-10.7 [facility] Platelets Auto (Bld) [#/Vol] Ordered By: Chon Valdez on 12-13-2022 Platelets (Bld) [#/Vol] 204 10*3/uL 150-450 [facility] Potassium [Moles/volume] in Serum or PlasmaOrdered By: Chon Valdez on 12-13-2022 Potassium [Moles/Vol] 4.2 mmol/L 3.5-5.1 [facility] Protein [Mass/volume] in Ser um or PlasmaOrdered By: Chon Valdez on 12-13-2022 Protein [Mass/Vol] 6.9 g/dL 6.4-8.9 [facility] RBC Auto (Bld) [#/Vol]Ordere d By: Chon Valdez on 12-13-2022 RBC (Bld) [#/Vol] 4.49 10*6/uL 3.60-5.00 [facility] Serum or plasma albumin/glob ulin mass ratioOrdered By: Chon Valdez on 12-13-2022 Albumin/Globulin [Mass ratio] 1.4 {ratio} [facility] Serum or plasma anion gap de terminationOrdered By: Chon Valdez on 12-13-2022 Anion gap [Moles/Vol] 12.1 mmol/L 6.0-15.0 [facility] Sodium [Moles/volume] in Ser um or PlasmaOrdered By: Chon Valdez on 12-13-2022 Sodium [Moles/Vol] 141 mmol/L 136-145 [facility] Urea nitrogen [Mass/volume] in Serum or PlasmaOrdered By: Chon Valdez on 12-13-2022 Urea nitrogen [Mass/Vol] 24 mg/dL 7-25 [facility] WBC Auto (Bld) [#/Vol]Ordere d By: Chon Valdez on 12-13-2022 WBC (Bld) [#/Vol] 7.4 10*3/uL 3.8-11.6 [facility] Alanine aminotransferase [En zymatic activity/volume] in Serum or PlasmaOrdered By: Laith Warner on 12-01-2022 ALT [Catalytic activity/Vol] 21 U/L 7-52 [facility] Albumin [Mass/volume] in Ser um or Plasma by Bromocresol green (BCG) dye binding methoOrdered By: Laith Warner on 12-01-2022 Albumin BCG dye [Mass/Vol] 4.2 g/dL 3.5-5.7 [facility] Alkaline phosphatase [Enzyma tic activity/volume] in Serum or PlasmaOrdered By: Laith Warner on 12-01-2022 ALP [Catalytic activity/Vol] 71 U/L 34-104 [facility] Aspartate aminotransferase [ Enzymatic activity/volume] in Serum or PlasmaOrdered By: Laith Warner on 12-01-2022 AST [Catalytic activity/Vol] 26 U/L 13-39 [facility] Bacterial blood cultureOrder ed By: Laith Warner on 12-01-2022 Bacteria identified Cx Nom (Bld) NO GROWTH [address] [facility] Basophils Auto (Bld) [#/Vol] Ordered By: Laith Warner on 12-01-2022 Basophils (Bld) [#/Vol] 0.0 10*3/uL 0.0-0.2 [facility] Basophils/100 WBC Auto (Bld) Ordered By: Laith Warner on 12-01-2022 Basophils/100 WBC (Bld) 0.6 % . [facility] Bilirubin.total [Mass/volume ] in Serum or PlasmaOrdered By: Laith Warner on 12-01-2022 Bilirubin [Mass/Vol] 0.3 mg/dL 0.3-1.0 [facility] Blood Cultureon 12-01-2022 Bacteria identified Cx Nom (Bld) NO GROWTH 5 DAYS PERFORMED BY: [place] [address] PATHOLOGIST [employer]UR[employer] IAN ACE M.D. Normal [facility] Comment on above: Performed By: #### L ACTIC, CMP, CBC #### [address] Bacteria identified Cx Nom (Bld) NO GROWTH 5 DAYS PERFORMED BY: [place] [address] PATHOLOGIST [employer]TER [employer] IAN ACE M.D. Normal [facility] Comment on above: Performed By: #### L ACTIC, CMP, CBC #### [facility] [address] [place] [address] [facility] Calcium [Mass/volume] in Ser um or PlasmaOrdered By: Laith Warner on 12-01-2022 Calcium [Mass/Vol] 8.9 mg/dL 8.6-10.3 [facility] Carbon dioxide, total [Moles /volume] in Serum or PlasmaOrdered By: Laith Warner on 12-01-2022 CO2 [Moles/Vol] 24.3 mmol/L 21.0-31.0 [facility] Chloride [Moles/volume] in S marivel or PlasmaOrdered By: Laith Warner on 12-01-2022 Chloride [Moles/Vol] 109 mmol/L 98-107 [facility] Complete Blood Count Auto Di ffon 12-01-2022 Basophils (Bld) [#/Vol] 0.0 10*3/uL Normal 0.0-0.2 [facility] Comment on above: Result Comment: PERF ORMED BY: [facility] [address] [place] [id number] PATHOLOGIST [employer]ELTER [employer]AN ACE M.D. Performed By: #### G LULS #### Point of Care testing , Basophils/100 WBC (Bld) 0.6 % Normal . [facility] Comment on above: Performed By: #### G LULS #### Point of Care testing , Eosinophils (Bld) [#/Vol] 0.4 10*3/uL Normal 0.0-0.45 [facility] Comment on above: Performed By: #### G LULS #### Point of Care testing , Eosinophils/100 WBC (Bld) 5.7 % Normal . [facility] Comment on above: Performed By: #### G LULS #### Point of Care testing , Erythrocyte distribution width (RBC) [Ratio] 17.4 % High 11.9-15.3 [facility] Comment on above: Performed By: #### G LULS #### Point of Care testing , Hematocrit (Bld) [Volume fraction] 35.5 % Normal 34.0-46.4 [facility] Comment on above: Performed By: #### Jodi AHMADI #### Point of Care testing , Hemoglobin (Bld) [Mass/Vol] 11.5 g/dL Low 11.8-15.4 [facility] Comment on above: Performed By: #### G KYAWLS #### Point of Care testing , Lymphocytes (Bld) [#/Vol] 0.8 10*3/uL Low 1.00-4.8 [facility] Comment on above: Performed By: #### G KYAWLS #### Point of Care testing , Lymphocytes/100 WBC (Bld) 11.6 % Normal . [facility] Comment on above: Performed By: #### G KYAWLS #### Point of Care testing , MCH (RBC) [Entitic mass] 26.0 pg Normal 24.7-34.3 [facility] Comment on above: Performed By: #### Jodi CARDLS #### Point of Care testing , MCV (RBC) [Entitic vol] 80.2 fL Normal 80-100 [facility] Comment on above: Performed By: #### Jodi AHMADI #### Point of Care testing , Mean Corpuscular HGB Conc 32.5 g/dL Normal 32.0-35.0 [facility] Comment on above: Performed By: #### G KYAWLS #### Point of Care testing , Monocytes (Bld) [#/Vol] 0.6 10*3/uL Normal 0.0-0.8 [facility] Comment on above: Performed By: #### G DAIANA #### Point of Care testing , Monocytes/100 WBC (Bld) 17.78 % Normal 0.00-20.00 [facility] Comment on above: Performed By: #### Jodi CARDLS #### Point of Care testing , Monocytes/100 WBC (Bld) 8.3 % Normal . [facility] Comment on above: Performed By: #### Jodi CARDLS #### Point of Care testing , Neutrophils (Bld) [#/Vol] 5.1 10*3/uL Normal 1.8-7.7 [facility] Comment on above: Performed By: #### G DAIANA #### Point of Care testing , Neutrophils/100 WBC (Bld) 73.8 % Normal . [facility] Comment on above: Performed By: #### G DAIANA #### Point of Care testing , NRBC% 0.1 /100{WBC} Normal 0-0.5 [facility] Comment on above: Performed By: #### G DAIANA #### Point of Care testing , Platelet mean volume (Bld) [Entitic vol] 7.8 fL Normal 6.3-10.7 [facility] Comment on above: Performed By: #### G DAIANA #### Point of Care testing , Platelets (Bld) [#/Vol] 228 10*3/uL Normal 150-450 [facility] Comment on above: Performed By: #### Jodi AHMADI #### Point of Care testing , RBC (Bld) [#/Vol] 4.43 10*6/uL Normal 3.60-5.00 [facility] Comment on above: Performed By: #### Jodi AHMADI #### Point of Care testing , WBC (Bld) [#/Vol] 7.0 10*3/uL Normal 3.8-11.6 [facility] Comment on above: Performed By: #### Jodi AHMADI #### Point of Care testing , Comprehensive Metabolic Pane jeremy 12-01-2022 Albumin [Mass/Vol] 4.2 g/dL Normal 3.5-5.7 [facility] Comment on above: Performed By: #### L ACTIC, CMP, CBC #### [facility] [address] [place] [address] [place] Albumin/Globulin [Mass ratio] 1.6 {ratio} Normal [facility] Comment on above: Performed By: #### L ACTIC, CMP, CBC #### [facility] [address] [place] [address] [place] ALP [Catalytic activity/Vol] 71 U/L Normal 34-104 [facility] Comment on above: Performed By: #### L ACTIC, CMP, CBC #### [facility] [address] [place] [id number] [place] ALT [Catalytic activity/Vol] 21 U/L Normal 7-52 [facility] Comment on above: Performed By: #### L ACTIC, CMP, CBC #### [facility] [address] [place] [id number] [place] Anion gap [Moles/Vol] 11.3 mmol/L Normal 6.0-15.0 [facility] Comment on above: Performed By: #### L ACTIC, CMP, CBC #### [facility] [address] AST [Catalytic activity/Vol] 26 U/L Normal 13-39 [facility] Comment on above: Performed By: #### L ACTIC, CMP, CBC #### [facility] [address] Bilirubin [Mass/Vol] 0.3 mg/dL Normal 0.3-1.0 [facility] Comment on above: Performed By: #### L ACTIC, CMP, CBC #### [facility] [address] [place] [address] [place] Calcium [Mass/Vol] 8.9 mg/dL Normal 8.6-10.3 [facility] Comment on above: Performed By: #### L ACTIC, CMP, CBC #### [facility] [address] [place] [id number] [place] Chloride [Moles/Vol] 109 mmol/L High 98-107 [facility] Comment on above: Performed By: #### L ACTIC, CMP, CBC #### [facility] [address] [place] [id number] [place] CO2 [Moles/Vol] 24.3 mmol/L Normal 21.0-31.0 [facility] Comment on above: Performed By: #### L ACTIC, CMP, CBC #### [facility] [address] [place] [id number] [place] Creatinine [Mass/Vol] 0.84 mg/dL Normal 0.60-1.20 [facility] Comment on above: Performed By: #### L ACTIC, CMP, CBC #### [facility] [address] [place] [address] [place] Creatinine Clr Calc Pharmacy 95.[address] [facility] Comment on above: Result Comment: PERF ORMED BY: [place] [address] PATHOLOGIST [employer]AN ACE M.D. Performed By: #### L ACTIC, CMP, CBC #### [facility] [address] [place] [address] [place] GFR/1.73 sq M.predicted MDRD (S/P/Bld) [Vol rate/Area] mL/min/{1.73_m2} [facility] Comment on above: Performed By: #### L ACTIC, CMP, CBC #### [facility] [address] [place] [address] [place] Globulin (S) [Mass/Vol] 2.6 g/dL Normal [facility] Comment on above: Performed By: #### L ACTIC, CMP, CBC #### [address] Glucose [Mass/Vol] 89 mg/dL Normal 70-100 [facility] Comment on above: Result Comment: [place] Glucose Reference Range is dependent on time and content of last meal. Glucose of more than 200 mg/dL in a nonstressed, ambulatory subject supports the diagnosis of Diabetes Mellitus. ADA recommended reference range Performed By: #### L ACTIC, CMP, CBC #### [facility] [address] [place] [address] [place] Potassium [Moles/Vol] 3.6 mmol/L Normal 3.5-5.1 [facility] Comment on above: Performed By: #### L ACTIC, CMP, CBC #### [facility] [address] Protein [Mass/Vol] 6.8 g/dL Normal 6.4-8.9 [facility] Comment on above: Performed By: #### L ACTIC, CMP, CBC #### [facility] [address] [place] [address] [place] Sodium [Moles/Vol] 141 mmol/L Normal 136-145 [facility] Comment on above: Performed By: #### L ACTPERCY, CMP, CBC #### [facility] [address] [place] [address] [place] Urea nitrogen [Mass/Vol] 24 mg/dL Normal 7-25 [facility] Comment on above: Performed By: #### L ACTIC, CMP, CBC #### [facility] [address] [place] [address] [place] Creatinine [Mass/volume] in Serum or PlasmaOrdered By: Laith Warner on 12-01-2022 Creatinine [Mass/Vol] 0.84 mg/dL 0.60-1.20 [facility] Eosinophils Auto (Bld) [#/Vo l]Ordered By: Laith Warner on 12-01-2022 Eosinophils (Bld) [#/Vol] 0.4 10*3/uL 0.0-0.45 [facility] Eosinophils/100 WBC Auto (Bl d)Ordered By: Laith Warner on 12-01-2022 Eosinophils/100 WBC (Bld) 5.7 % . [facility] Erythrocyte distribution wid th Auto (RBC) [Ratio]Ordered By: Laith Warner on 12-01-2022 Erythrocyte distribution width (RBC) [Ratio] 17.4 % 11.9-15.3 [facility] Globulin Calc (S) [Mass/Vol] Ordered By: Laith Warner on 12-01-2022 Globulin (S) [Mass/Vol] 2.6 g/dL [facility] Glucose [Mass/volume] in Ser um or PlasmaOrdered By: Laith Warner on 12-01-2022 Glucose [Mass/Vol] 89 mg/dL 70-100 [facility] Comment on above: ADA recommended refe rence rangeRandom Glucose Reference Range is dependent on time and content of last meal. Glucose of more than 200 mg/dL in a nonstressed, ambulatory subject supports the diagnosis of Diabetes Mellitus. Hematocrit Auto (Bld) [Volum e fraction]Ordered By: Laith Warner on 12-01-2022 Hematocrit (Bld) [Volume fraction] 35.5 % 34.0-46.4 [facility] Hemoglobin [Mass/volume] in BloodOrdered By: Laith Warner on 12-01-2022 Hemoglobin (Bld) [Mass/Vol] 11.5 g/dL 11.8-15.4 [facility] Lactate [Moles/volume] in Se rum or PlasmaOrdered By: Laith Warner on 12-01-2022 Lactate [Moles/Vol] 0.5 mmol/L 0.5-2.2 [facility] Lactic Acidon 12-01-2022 Lactate [Moles/Vol] 0.5 mmol/L Normal 0.5-2.2 [facility] Comment on above: Result Comment: PERF ORMED BY: [facility] [address] [place] [place] [address] PATHOLOGIST [employer]ELTER [employer]AN ACE M.D. Performed By: #### G LULS #### Point of Care testing , Leukocytes [#/volume] correc julia for nucleated erythrocytes in Blood by Automated counOrdered By: Laith Warner on 12-01-2022 WBC corrected for nucl RBC Auto (Bld) [#/Vol] 7.0 10*3/uL 3.8-11.6 [facility] Lymphocytes Auto (Bld) [#/Vo l]Ordered By: Laith Warner on 12-01-2022 Lymphocytes (Bld) [#/Vol] 0.8 10*3/uL 1.00-4.8 [facility] Lymphocytes/100 WBC Auto (Bl d)Ordered By: Laith Warner on 12-01-2022 Lymphocytes/100 WBC (Bld) 11.6 % . [facility] MCH Auto (RBC) [Entitic mass ]Ordered By: Laith Warner on 12-01-2022 MCH (RBC) [Entitic mass] 26.0 pg 24.7-34.3 [facility] MCHC Auto (RBC) [Mass/Vol]Or dered By: Laith Warner on 12-01-2022 MCHC (RBC) [Mass/Vol] 32.5 g/dL 32.0-35.0 [facility] MCV Auto (RBC) [Entitic vol] Ordered By: Laith Warner on 12-01-2022 MCV (RBC) [Entitic vol] 80.2 fL 80-100 [facility] Monocyte distribution width [Entitic volume] in Blood by AutomatedOrdered By: Laith Warner on 12-01-2022 Monocyte distribution width Auto (Bld) [Entitic vol] 17.78 % 0.00-20.00 [facility] Monocytes Auto (Bld) [#/Vol] Ordered By: Laith Warner on 12-01-2022 Monocytes (Bld) [#/Vol] 0.6 10*3/uL 0.0-0.8 [facility] Monocytes/100 WBC Auto (Bld) Ordered By: Laith Warner on 12-01-2022 Monocytes/100 WBC (Bld) 8.3 % . [facility] Neutrophils Auto (Bld) [#/Vo l]Ordered By: Laith Warner on 12-01-2022 Neutrophils (Bld) [#/Vol] 5.1 10*3/uL 1.8-7.7 [facility] Neutrophils/100 WBC Auto (Bl d)Ordered By: Laith Warner on 12-01-2022 Neutrophils/100 WBC (Bld) 73.8 % . [facility] No Panel InformationOrdered By: Laith Warner on 12-01-2022 Estimated GFR (CKD-EPI) > 60.0 mL/Min [facility] Creatinine Clearance (Chem 95.60 [facility] Nucleated erythrocytes [Pres ence] in Blood by Automated countOrdered By: Laith Warner on 12-01-2022 Nucleated RBC Auto Ql (Bld) 0.1 /100{WBC} 0-0.5 [facility] Platelet mean volume Auto (B ld) [Entitic vol]Ordered By: Laith Warner on 12-01-2022 Platelet mean volume (Bld) [Entitic vol] 7.8 fL 6.3-10.7 [facility] Platelets Auto (Bld) [#/Vol] Ordered By: Laith Warner on 12-01-2022 Platelets (Bld) [#/Vol] 228 10*3/uL 150-450 [facility] Potassium [Moles/volume] in Serum or PlasmaOrdered By: Laith Warner on 12-01-2022 Potassium [Moles/Vol] 3.6 mmol/L 3.5-5.1 [facility] Protein [Mass/volume] in Ser um or PlasmaOrdered By: Laith Warner on 12-01-2022 Protein [Mass/Vol] 6.8 g/dL 6.4-8.9 [facility] RBC Auto (Bld) [#/Vol]Ordere d By: Laith Warner on 12-01-2022 RBC (Bld) [#/Vol] 4.43 10*6/uL 3.60-5.00 [facility] Serum or plasma albumin/glob ulin mass ratioOrdered By: Laith Warner on 12-01-2022 Albumin/Globulin [Mass ratio] 1.6 {ratio} [facility] Serum or plasma anion gap de terminationOrdered By: Laith Warner on 12-01-2022 Anion gap [Moles/Vol] 11.3 mmol/L 6.0-15.0 [facility] Sodium [Moles/volume] in Ser um or PlasmaOrdered By: Laith Warner on 12-01-2022 Sodium [Moles/Vol] 141 mmol/L 136-145 [facility] Urea nitrogen [Mass/volume] in Serum or PlasmaOrdered By: Laith Warner on 12-01-2022 Urea nitrogen [Mass/Vol] 24 mg/dL 7-25 [facility] WBC Auto (Bld) [#/Vol]Ordere d By: Laith Warner on 12-01-2022 WBC (Bld) [#/Vol] 7.0 10*3/uL 3.8-11.6 [facility] Alanine aminotransferase [En zymatic activity/volume] in Serum or PlasmaOrdered By: Jhonatan Crowell on 11-05-2022 ALT [Catalytic activity/Vol] 20 U/L 7-52 [facility] Albumin [Mass/volume] in Ser um or Plasma by Bromocresol green (BCG) dye binding methoOrdered By: Jhonatan Crowell on 11-05-2022 Albumin BCG dye [Mass/Vol] 3.9 g/dL 3.5-5.7 [facility] Alkaline phosphatase [Enzyma tic activity/volume] in Serum or PlasmaOrdered By: Jhonatan Crowell on 11-05-2022 ALP [Catalytic activity/Vol] 77 U/L 34-104 [facility] Aspartate aminotransferase [ Enzymatic activity/volume] in Serum or PlasmaOrdered By: Jhonatan Crowell on 11-05-2022 AST [Catalytic activity/Vol] 22 U/L 13-39 [facility] Bacterial blood cultureOrder ed By: Jhonatan Crowell on 11-05-2022 Bacteria identified Cx Nom (Bld) NO GROWTH [address] [facility] Basophils Auto (Bld) [#/Vol] Ordered By: Jhonatan Crowell on 11-05-2022 Basophils (Bld) [#/Vol] 0.0 10*3/uL 0.0-0.2 [facility] Basophils/100 WBC Auto (Bld) Ordered By: Jhonatan Crowell on 11-05-2022 Basophils/100 WBC (Bld) 0.6 % . [facility] Bilirubin.total [Mass/volume ] in Serum or PlasmaOrdered By: Jhonatan Crowell on 11-05-2022 Bilirubin [Mass/Vol] 0.5 mg/dL 0.3-1.0 [facility] Blood Cultureon 11-05-2022 Bacteria identified Cx Nom (Bld) NO GROWTH 5 DAYS PERFORMED BY: [place] [address] PATHOLOGIST [employer]TER [employer] IAN ACE M.D. [facility] Comment on above: Performed By: #### L ACTIC, CMP, CBC #### [facility] [address] [place] [address] Bacteria identified Cx Nom (Bld) NO GROWTH 5 DAYS PERFORMED BY: [place] [address] PATHOLOGIST MELTER SUPER[employer] IAN ACE M.D. [facility] Comment on above: Performed By: #### L ACTIC, CMP, CBC #### [facility] [address] [place] [address] [place] Calcium [Mass/volume] in Ser um or PlasmaOrdered By: Jhonatan Crowell on 11-05-2022 Calcium [Mass/Vol] 8.9 mg/dL 8.6-10.3 [facility] Carbon dioxide, total [Moles /volume] in Serum or PlasmaOrdered By: Jhonatan Crowell on 11-05-2022 CO2 [Moles/Vol] 28.5 mmol/L 21.0-31.0 [facility] Chloride [Moles/volume] in S marivel or PlasmaOrdered By: Jhonatan Crowell on 11-05-2022 Chloride [Moles/Vol] 106 mmol/L 98-107 [facility] Complete Blood Count Auto Di ffon 11-05-2022 Basophils (Bld) [#/Vol] 0.0 10*3/uL Normal 0.0-0.2 [facility] Comment on above: Result Comment: PERF ORMED BY: [place] [address] PATHOLOGIST [employer]ELTER SU[employer]AN ACE M.D. Performed By: #### L ACTIC, CMP, CBC #### [facility] [address] [place] [address] Basophils/100 WBC (Bld) 0.6 % Normal . [facility] Comment on above: Performed By: #### L ACTIC, CMP, CBC #### [facility] [address] [place] [address] [place] Eosinophils (Bld) [#/Vol] 0.2 10*3/uL Normal 0.0-0.45 [facility] Comment on above: Performed By: #### L ACTIC, CMP, CBC #### [address] Eosinophils/100 WBC (Bld) 2.9 % Normal . [facility] Comment on above: Performed By: #### L ACTIC, CMP, CBC #### [facility] [address] [place] [address] Erythrocyte distribution width (RBC) [Ratio] 16.7 % High 11.9-15.3 [facility] Comment on above: Performed By: #### L ACTIC, CMP, CBC #### [facility] [address] [place] [address] Hematocrit (Bld) [Volume fraction] 37.5 % Normal 34.0-46.4 [facility] Comment on above: Performed By: #### L ACTIC, CMP, CBC #### [facility] [address] Hemoglobin (Bld) [Mass/Vol] 12.2 g/dL Normal 11.8-15.4 [facility] Comment on above: Performed By: #### L ACTIC, CMP, CBC #### [address] Lymphocytes (Bld) [#/Vol] 0.8 10*3/uL Low 1.00-4.8 [facility] Comment on above: Performed By: #### L ACTIC, CMP, CBC #### [address] Lymphocytes/100 WBC (Bld) 11.3 % Normal . [facility] Comment on above: Performed By: #### L ACTIC, CMP, CBC #### [address] MCH (RBC) [Entitic mass] 25.8 pg Normal 24.7-34.3 [facility] Comment on above: Performed By: #### L ACTIC, CMP, CBC #### [address] MCV (RBC) [Entitic vol] 79.3 fL Low 80-100 [facility] Comment on above: Performed By: #### L ACTIC, CMP, CBC #### [address] Mean Corpuscular HGB Conc 32.5 g/dL Normal 32.0-35.0 [facility] Comment on above: Performed By: #### L ACTIC, CMP, CBC #### [place] [address] [place] Monocytes (Bld) [#/Vol] 0.5 10*3/uL Normal 0.0-0.8 [facility] Comment on above: Performed By: #### L ACTIC, CMP, CBC #### [place] [address] [place] Monocytes/100 WBC (Bld) 16.42 % Normal 0.00-20.00 [facility] Comment on above: Performed By: #### L ACTIC, CMP, CBC #### [address] Monocytes/100 WBC (Bld) 7.1 % Normal . [facility] Comment on above: Performed By: #### L ACTIC, CMP, CBC #### [address] Neutrophils (Bld) [#/Vol] 5.4 10*3/uL Normal 1.8-7.7 [facility] Comment on above: Performed By: #### L ACTIC, CMP, CBC #### [address] Neutrophils/100 WBC (Bld) 78.1 % Normal . [facility] Comment on above: Performed By: #### L ACTIC, CMP, CBC #### [address] NRBC% 0.1 /100{WBC} Normal 0-0.5 [facility] Comment on above: Performed By: #### L ACTIC, CMP, CBC #### [address] Platelet mean volume (Bld) [Entitic vol] 8.1 fL Normal 6.3-10.7 [facility] Comment on above: Performed By: #### L ACTIC, CMP, CBC #### [address] Platelets (Bld) [#/Vol] 233 10*3/uL Normal 150-450 [facility] Comment on above: Performed By: #### L ACTIC, CMP, CBC #### [place] [address] [place] RBC (Bld) [#/Vol] 4.73 10*6/uL Normal 3.60-5.00 [facility] Comment on above: Performed By: #### L ACTIC, CMP, CBC #### [address] [place] [address] [place] WBC (Bld) [#/Vol] 6.9 10*3/uL Normal 3.8-11.6 [facility] Comment on above: Performed By: #### L ACTIC, CMP, CBC #### [address] Comprehensive Metabolic Pane jeremy 11-05-2022 Albumin [Mass/Vol] 3.9 g/dL Normal 3.5-5.7 [facility] Comment on above: Performed By: #### L ACTIC, CMP, CBC #### [address] Albumin/Globulin [Mass ratio] 1.3 {ratio} Normal [facility] Comment on above: Performed By: #### L ACTIC, CMP, CBC #### [address] ALP [Catalytic activity/Vol] 77 U/L Normal 34-104 [facility] Comment on above: Performed By: #### L ACTIC, CMP, CBC #### [address] ALT [Catalytic activity/Vol] 20 U/L Normal 7-52 [facility] Comment on above: Performed By: #### L ACTIC, CMP, CBC #### [address] Anion gap [Moles/Vol] 10.6 mmol/L Normal 6.0-15.0 [facility] Comment on above: Performed By: #### L ACTIC, CMP, CBC #### [address] AST [Catalytic activity/Vol] 22 U/L Normal 13-39 [facility] Comment on above: Performed By: #### L ACTIC, CMP, CBC #### [address] Bilirubin [Mass/Vol] 0.5 mg/dL Normal 0.3-1.0 [facility] Comment on above: Performed By: #### L ACTIC, CMP, CBC #### [facility] [address] Calcium [Mass/Vol] 8.9 mg/dL Normal 8.6-10.3 [facility] Comment on above: Performed By: #### L ACTIC, CMP, CBC #### [facility] [address] Chloride [Moles/Vol] 106 mmol/L Normal 98-107 [facility] Comment on above: Performed By: #### L ACTIC, CMP, CBC #### [facility] [address] CO2 [Moles/Vol] 28.5 mmol/L Normal 21.0-31.0 [facility] Comment on above: Performed By: #### L ACTIC, CMP, CBC #### [facility] [address] Creatinine [Mass/Vol] 0.71 mg/dL Normal 0.60-1.20 [facility] Comment on above: Performed By: #### L ACTIC, CMP, CBC #### [facility] [address] [place] [address] [place] Creatinine Clr Calc Pharmacy 100.[address] [facility] Comment on above: Result Comment: PERF ORMED BY: [place] [address] PATHOLOGIST MELTER SUPER[employer] FURNACE IAN ACE M.D. Performed By: #### L ACTIC, CMP, CBC #### [facility] [address] GFR/1.73 sq M.predicted MDRD (S/P/Bld) [Vol rate/Area] mL/min/{1.73_m2} [facility] Comment on above: Performed By: #### L ACTIC, CMP, CBC #### [facility] [address] Globulin (S) [Mass/Vol] 3.0 g/dL [facility] Comment on above: Performed By: #### L ACTIC, CMP, CBC #### [facility] [address] Glucose [Mass/Vol] 92 mg/dL Normal 70-100 [facility] Comment on above: Result Comment: [facility] Glucose Reference Range is dependent on time and content of last meal. Glucose of more than 200 mg/dL in a nonstressed, ambulatory subject supports the diagnosis of Diabetes Mellitus. ADA recommended reference range Performed By: #### L ACTIC CMP, CBC #### [facility] [address] Potassium [Moles/Vol] 4.1 mmol/L Normal 3.5-5.1 [facility] Comment on above: Performed By: #### L VITOR CMP, CBC #### [address] Protein [Mass/Vol] 6.9 g/dL Normal 6.4-8.9 [facility] Comment on above: Performed By: #### L ACTPERCY CMP, CBC #### [address] Sodium [Moles/Vol] 141 mmol/L Normal 136-145 [facility] Comment on above: Performed By: #### L VITOR CMP, CBC #### [place] [address] [place] Urea nitrogen [Mass/Vol] 18 mg/dL Normal 7-25 [facility] Comment on above: Performed By: #### L ACTPERCY CMP, CBC #### [facility] [address] [place] [address] Creatinine [Mass/volume] in Serum or PlasmaOrdered By: Jhonatan Crowell on 11-05-2022 Creatinine [Mass/Vol] 0.71 mg/dL 0.60-1.20 [facility] Eosinophils Auto (Bld) [#/Vo l]Ordered By: Jhonatan Crowell on 11-05-2022 Eosinophils (Bld) [#/Vol] 0.2 10*3/uL 0.0-0.45 [facility] Eosinophils/100 WBC Auto (Bl d)Ordered By: Jhonatan Crowell on 11-05-2022 Eosinophils/100 WBC (Bld) 2.9 % . [facility] Erythrocyte distribution wid th Auto (RBC) [Ratio]Ordered By: Jhonatan Crowell on 11-05-2022 Erythrocyte distribution width (RBC) [Ratio] 16.7 % 11.9-15.3 [facility] Globulin Calc (S) [Mass/Vol] Ordered By: Jhonatan Crowell on 11-05-2022 Globulin (S) [Mass/Vol] 3.0 g/dL [facility] Glucose [Mass/volume] in Ser um or PlasmaOrdered By: Jhonatan Crowell on 11-05-2022 Glucose [Mass/Vol] 92 mg/dL 70-100 [facility] Comment on above: ADA recommended refe rence rangeRandom Glucose Reference Range is dependent on time and content of last meal. Glucose of more than 200 mg/dL in a nonstressed, ambulatory subject supports the diagnosis of Diabetes Mellitus. Hematocrit Auto (Bld) [Volum e fraction]Ordered By: Jhonatan Crowell on 11-05-2022 Hematocrit (Bld) [Volume fraction] 37.5 % 34.0-46.4 [facility] Hemoglobin [Mass/volume] in BloodOrdered By: Jhonatan Crowell on 11-05-2022 Hemoglobin (Bld) [Mass/Vol] 12.2 g/dL 11.8-15.4 [facility] Leukocytes [#/volume] correc julia for nucleated erythrocytes in Blood by Automated counOrdered By: Jhonatan Crowell on 11-05-2022 WBC corrected for nucl RBC Auto (Bld) [#/Vol] 6.9 10*3/uL 3.8-11.6 [facility] Lymphocytes Auto (Bld) [#/Vo l]Ordered By: Jhonatan Crowell on 11-05-2022 Lymphocytes (Bld) [#/Vol] 0.8 10*3/uL 1.00-4.8 [facility] Lymphocytes/100 WBC Auto (Bl d)Ordered By: Jhonatan Crowell on 11-05-2022 Lymphocytes/100 WBC (Bld) 11.3 % . [facility] MCH Auto (RBC) [Entitic mass ]Ordered By: Jhonatan Crowell on 11-05-2022 MCH (RBC) [Entitic mass] 25.8 pg 24.7-34.3 [facility] MCHC Auto (RBC) [Mass/Vol]Or dered By: Jhonatan Crowell on 11-05-2022 MCHC (RBC) [Mass/Vol] 32.5 g/dL 32.0-35.0 [facility] MCV Auto (RBC) [Entitic vol] Ordered By: Jhonatan Crowell on 11-05-2022 MCV (RBC) [Entitic vol] 79.3 fL 80-100 [facility] Monocyte distribution width [Entitic volume] in Blood by AutomatedOrdered By: Jhonatan Crowell on 11-05-2022 Monocyte distribution width Auto (Bld) [Entitic vol] 16.42 % 0.00-20.00 [facility] Monocytes Auto (Bld) [#/Vol] Ordered By: Jhonatan Crowell on 11-05-2022 Monocytes (Bld) [#/Vol] 0.5 10*3/uL 0.0-0.8 [facility] Monocytes/100 WBC Auto (Bld) Ordered By: Jhonatan Crowell on 11-05-2022 Monocytes/100 WBC (Bld) 7.1 % . [facility] Neutrophils Auto (Bld) [#/Vo l]Ordered By: Jhonatan Crowell on 11-05-2022 Neutrophils (Bld) [#/Vol] 5.4 10*3/uL 1.8-7.7 [facility] Neutrophils/100 WBC Auto (Bl d)Ordered By: Jhonatan Crowell on 11-05-2022 Neutrophils/100 WBC (Bld) 78.1 % . [facility] No Panel InformationOrdered By: Jhonatan Crowell on 11-05-2022 Estimated GFR (CKD-EPI) > 60.0 mL/Min [facility] Creatinine Clearance (Chem 100.16 [facility] Nucleated erythrocytes [Pres ence] in Blood by Automated countOrdered By: Jhonatan Crowell on 11-05-2022 Nucleated RBC Auto Ql (Bld) 0.1 /100{WBC} 0-0.5 [facility] Platelet mean volume Auto (B ld) [Entitic vol]Ordered By: Jhonatan Crowell on 11-05-2022 Platelet mean volume (Bld) [Entitic vol] 8.1 fL 6.3-10.7 [facility] Platelets Auto (Bld) [#/Vol] Ordered By: Jhonatan Crowell on 11-05-2022 Platelets (Bld) [#/Vol] 233 10*3/uL 150-450 [facility] Potassium [Moles/volume] in Serum or PlasmaOrdered By: Jhonatan Crowell on 11-05-2022 Potassium [Moles/Vol] 4.1 mmol/L 3.5-5.1 [facility] Protein [Mass/volume] in Ser um or PlasmaOrdered By: Jhonatan Crowell on 11-05-2022 Protein [Mass/Vol] 6.9 g/dL 6.4-8.9 [facility] RBC Auto (Bld) [#/Vol]Ordere d By: Jhonatan Crowell on 11-05-2022 RBC (Bld) [#/Vol] 4.73 10*6/uL 3.60-5.00 [facility] Serum or plasma albumin/glob ulin mass ratioOrdered By: Jhonatan Crowell on 11-05-2022 Albumin/Globulin [Mass ratio] 1.3 {ratio} [facility] Serum or plasma anion gap de terminationOrdered By: Jhonatan Crowell on 11-05-2022 Anion gap [Moles/Vol] 10.6 mmol/L 6.0-15.0 [facility] Sodium [Moles/volume] in Ser um or PlasmaOrdered By: Jhonatan Crowell on 11-05-2022 Sodium [Moles/Vol] 141 mmol/L 136-145 [facility] Urea nitrogen [Mass/volume] in Serum or PlasmaOrdered By: Jhonatan Crowell on 11-05-2022 Urea nitrogen [Mass/Vol] 18 mg/dL 7-25 [facility] WBC Auto (Bld) [#/Vol]Ordere d By: Jhonatan Crowell on 11-05-2022 WBC (Bld) [#/Vol] 6.9 10*3/uL 3.8-11.6 [facility] XR tibia fibula LT 2V*on XR tibia fibula LT 2V* [facility] [place] [address] [place] [address] XRay Report Signed Patient: [place] Cesar MR#: [id number] : 1955 Acct:[id number] Age/Sex: 66 / F ADM Date: 11/05/22 [...] Padmini Bethea M.D.11/05/2022 12:27 PM Dictation Location: [place] [address] Transcribed By: MARIA VICTORIA 11/05/22 1227 Dictated By: Padmini Bethea MD 11/05/22 1225 Signed By: 11/05/[address] [facility] Alanine aminotransferase [En zymatic activity/volume] in Serum or PlasmaOrdered By: Gerald Theodore on 10-12-2022 ALT [Catalytic activity/Vol] 20 U/L 7-52 [facility] Albumin [Mass/volume] in Ser um or Plasma by Bromocresol green (BCG) dye binding methoOrdered By: Gerald Theodore on 10-12-2022 Albumin BCG dye [Mass/Vol] 3.5 g/dL 3.5-5.7 [facility] Alkaline phosphatase [Enzyma tic activity/volume] in Serum or PlasmaOrdered By: Gerald Theodore on 10-12-2022 ALP [Catalytic activity/Vol] 67 U/L 34-104 [facility] Aspartate aminotransferase [ Enzymatic activity/volume] in Serum or PlasmaOrdered By: Gerald Theodore on 10-12-2022 AST [Catalytic activity/Vol] 23 U/L 13-39 [facility] Bacterial blood cultureOrder ed By: Gerald Theodore on 10-12-2022 Bacteria identified Cx Nom (Bld) NO GROWTH [address] [facility] Basophils Auto (Bld) [#/Vol] Ordered By: Gerald Theodore on 10-12-2022 Basophils (Bld) [#/Vol] 0.0 10*3/uL 0.0-0.2 [facility] Basophils/100 WBC Auto (Bld) Ordered By: Gerald Theodore on 10-12-2022 Basophils/100 WBC (Bld) 0.5 % . [facility] Bilirubin.total [Mass/volume ] in Serum or PlasmaOrdered By: Gerald Theodore on 10-12-2022 Bilirubin [Mass/Vol] 0.4 mg/dL 0.3-1.0 [facility] Blood Cultureon 10-12-2022 Bacteria identified Cx Nom (Bld) NO GROWTH 5 DAYS PERFORMED BY: [place] [address] PATHOLOGIST [employer]ELTER SUPER[employer]URNACE IAN ACE M.D. [facility] Comment on above: Performed By: #### C UBLD, CMP, CBC #### [facility] [address] [place] [id number] [place] C reactive protein [Mass/vol ume] in Serum or PlasmaOrdered By: Gerald Theodore on 10-12-2022 CRP [Mass/Vol] 1.7 mg/dL 0.0-0.5 [facility] C-Reactive Proteinon 023 C-Reactive Protein 1.7 mg/dL High 0.0-0.5 [facility] Comment on above: Result Comment: PERF ORMED BY: [place] [address] PATHOLOGIST MELTER SUPER[employer]URNACE IAN ACE M.D. Performed By: #### C UBLD, CMP, CBC #### [facility] [address] [place], [place] [id number] [place] Calcium [Mass/volume] in Ser um or PlasmaOrdered By: Gerald Theodore on 10-12-2022 Calcium [Mass/Vol] 8.4 mg/dL 8.6-10.3 [facility] Carbon dioxide, total [Moles /volume] in Serum or PlasmaOrdered By: Gerald Theodore on 10-12-2022 CO2 [Moles/Vol] 28.5 mmol/L 21.0-31.0 [facility] Chloride [Moles/volume] in S marivel or PlasmaOrdered By: Gerald Theodore on 10-12-2022 Chloride [Moles/Vol] 105 mmol/L 98-107 [facility] Complete Blood Count Auto Di ffon 10-12-2022 Basophils (Bld) [#/Vol] 0.0 10*3/uL Normal 0.0-0.2 [facility] Comment on above: Performed By: #### C UBLD, CMP, CBC #### [facility] [address] [place] [address] [place] Basophils/100 WBC (Bld) 0.5 % Normal . [facility] Comment on above: Performed By: #### C UBLD, CMP, CBC #### [facility] [address] [place] [address] [place] Eosinophils (Bld) [#/Vol] 0.2 10*3/uL Normal 0.0-0.45 [facility] Comment on above: Performed By: #### C UBLD, CMP, CBC #### [facility] [address] [place] [address] [place] Eosinophils/100 WBC (Bld) 1.8 % Normal . [facility] Comment on above: Performed By: #### C UBLD, CMP, CBC #### [facility] [address] [place] [address] [place] Erythrocyte distribution width (RBC) [Ratio] 16.3 % High 11.9-15.3 [facility] Comment on above: Performed By: #### C UBLD, CMP, CBC #### [facility] [address] [place] [address] [place] Hematocrit (Bld) [Volume fraction] 35.2 % Normal 34.0-46.4 [facility] Comment on above: Performed By: #### C UBLD, CMP, CBC #### [address] Hemoglobin (Bld) [Mass/Vol] 11.2 g/dL Low 11.8-15.4 [facility] Comment on above: Performed By: #### C UBLD, CMP, CBC #### [address] Lymphocytes (Bld) [#/Vol] 0.8 10*3/uL Low 1.00-4.8 [facility] Comment on above: Performed By: #### C UBLD, CMP, CBC #### [address] Lymphocytes/100 WBC (Bld) 9.6 % Normal . [facility] Comment on above: Performed By: #### C UBLD, CMP, CBC #### [address] MCH (RBC) [Entitic mass] 25.5 pg Normal 24.7-34.3 [facility] Comment on above: Performed By: #### C UBLD, CMP, CBC #### [address] MCV (RBC) [Entitic vol] 80.1 fL Normal 80-100 [facility] Comment on above: Performed By: #### C UBLD, CMP, CBC #### [address] Mean Corpuscular HGB Conc 31.8 g/dL Low 32.0-35.0 [facility] Comment on above: Performed By: #### C UBLD, CMP, CBC #### [address] Monocytes (Bld) [#/Vol] 0.7 10*3/uL Normal 0.0-0.8 [facility] Comment on above: Performed By: #### C UBLD, CMP, CBC #### [place] [address] [place] Monocytes/100 WBC (Bld) 14.89 % Normal 0.00-20.00 [facility] Comment on above: Performed By: #### C UBLD, CMP, CBC #### [address] Monocytes/100 WBC (Bld) 7.9 % Normal . [facility] Comment on above: Performed By: #### C UBLD, CMP, CBC #### [address] Neutrophils (Bld) [#/Vol] 6.9 10*3/uL Normal 1.8-7.7 [facility] Comment on above: Performed By: #### C UBLD, CMP, CBC #### [address] Neutrophils/100 WBC (Bld) 80.2 % Normal . [facility] Comment on above: Performed By: #### C UBLD, CMP, CBC #### [address] NRBC% 0.1 /100{WBC} Normal 0-0.5 [facility] Comment on above: Performed By: #### C UBLD, CMP, CBC #### [address] Platelet mean volume (Bld) [Entitic vol] 7.6 fL Normal 6.3-10.7 [facility] Comment on above: Performed By: #### C UBLD, CMP, CBC #### [address] Platelets (Bld) [#/Vol] 215 10*3/uL Normal 150-450 [facility] Comment on above: Performed By: #### C UBLD, CMP, CBC #### [address] RBC (Bld) [#/Vol] 4.39 10*6/uL Normal 3.60-5.00 [facility] Comment on above: Performed By: #### C UBLD, CMP, CBC #### [facility] [address] WBC (Bld) [#/Vol] 8.6 10*3/uL Normal 3.8-11.6 [facility] Comment on above: Performed By: #### C UBLD, CMP, CBC #### [address] Comprehensive Metabolic Pane jeremy 10-12-2022 Albumin [Mass/Vol] 3.5 g/dL Normal 3.5-5.7 [facility] Comment on above: Performed By: #### C UBLD, CMP, CBC #### [address] Albumin/Globulin [Mass ratio] 1.4 {ratio} Normal [facility] Comment on above: Performed By: #### C UBLD, CMP, CBC #### [address] ALP [Catalytic activity/Vol] 67 U/L Normal 34-104 [facility] Comment on above: Performed By: #### C UBLD, CMP, CBC #### [address] ALT [Catalytic activity/Vol] 20 U/L Normal 7-52 [facility] Comment on above: Performed By: #### C UBLD, CMP, CBC #### [address] Anion gap [Moles/Vol] 11.1 mmol/L Normal 6.0-15.0 [facility] Comment on above: Performed By: #### C UBLD, CMP, CBC #### [address] AST [Catalytic activity/Vol] 23 U/L Normal 13-39 [facility] Comment on above: Performed By: #### C UBLD, CMP, CBC #### [address] Bilirubin [Mass/Vol] 0.4 mg/dL Normal 0.3-1.0 [facility] Comment on above: Performed By: #### C UBLD, CMP, CBC #### [facility] [address] [place] [address] [place] Calcium [Mass/Vol] 8.4 mg/dL Low 8.6-10.3 [facility] Comment on above: Performed By: #### C UBLD, CMP, CBC #### [facility] [address] [place] [address] [place] Chloride [Moles/Vol] 105 mmol/L Normal 98-107 [facility] Comment on above: Performed By: #### C UBLD, CMP, CBC #### [facility] [address] CO2 [Moles/Vol] 28.5 mmol/L Normal 21.0-31.0 [facility] Comment on above: Performed By: #### C UBLD, CMP, CBC #### [facility] [address] [place] [address] [place] Creatinine [Mass/Vol] 0.69 mg/dL Normal 0.60-1.20 [facility] Comment on above: Performed By: #### C UBLD, CMP, CBC #### [facility] [address] [place] [address] [place] Creatinine Clr Calc Pharmacy 101.[address] [facility] Comment on above: Performed By: #### C UBLD, CMP, CBC #### [facility] [address] [place] [address] [place] GFR/1.73 sq M.predicted MDRD (S/P/Bld) [Vol rate/Area] mL/min/{1.73_m2} [facility] Comment on above: Performed By: #### C UBLD, CMP, CBC #### [facility] [address] [place] [address] [place] Globulin (S) [Mass/Vol] 2.5 g/dL [facility] Comment on above: Performed By: #### C UBLD, CMP, CBC #### [facility] [address] [place] [address] [place] Glucose [Mass/Vol] 92 mg/dL Normal 70-100 [facility] Comment on above: Result Comment: [place] Glucose Reference Range is dependent on time and content of last meal. Glucose of more than 200 mg/dL in a nonstressed, ambulatory subject supports the diagnosis of Diabetes Mellitus. ADA recommended reference range Performed By: #### C UBLD, CMP, CBC #### [facility] [address] Potassium [Moles/Vol] 3.6 mmol/L Normal 3.5-5.1 [facility] Comment on above: Performed By: #### C UBLD, CMP, CBC #### [facility] [address] Protein [Mass/Vol] 6.0 g/dL Low 6.4-8.9 [facility] Comment on above: Performed By: #### C UBLD, CMP, CBC #### [facility] [address] [place] [address] [place] Sodium [Moles/Vol] 141 mmol/L Normal 136-145 [facility] Comment on above: Performed By: #### C UBLD, CMP, CBC #### [facility] [address] [place] [address] [place] Urea nitrogen [Mass/Vol] 20 mg/dL Normal 7-25 [facility] Comment on above: Performed By: #### C UBLD, CMP, CBC #### [facility] [address] [place] [address] [place] Creatinine [Mass/volume] in Serum or PlasmaOrdered By: Gerald Theodore on 10-12-2022 Creatinine [Mass/Vol] 0.69 mg/dL 0.60-1.20 [facility] Eosinophils Auto (Bld) [#/Vo l]Ordered By: Gerald Theodore on 10-12-2022 Eosinophils (Bld) [#/Vol] 0.2 10*3/uL 0.0-0.45 [facility] Eosinophils/100 WBC Auto (Bl d)Ordered By: Gerald Theodore on 10-12-2022 Eosinophils/100 WBC (Bld) 1.8 % . [facility] Erythrocyte Sedimentation Ra emery 10-12-2022 ESR (Bld) [Velocity] 25 mm/h Normal 0-29 [facility] Comment on above: Result Comment: PERF ORMED BY: [facility] [address] [place] [address] PATHOLOGIST MELTER SUPER[employer]URNACE IAN ACE M.D. Performed By: #### C UBLD, CMP, CBC #### [facility] [address] Erythrocyte distribution wid th Auto (RBC) [Ratio]Ordered By: Gerald Theodore on 10-12-2022 Erythrocyte distribution width (RBC) [Ratio] 16.3 % 11.9-15.3 [facility] Erythrocyte sedimentation ra te by Photometric methodOrdered By: Gerald Theodore on 10-12-2022 ESR Photometric method (Bld) [Velocity] 25 mm/hr 0-29 [facility] Globulin Calc (S) [Mass/Vol] Ordered By: Gerald Theodore on 10-12-2022 Globulin (S) [Mass/Vol] 2.5 g/dL [facility] Glucose [Mass/volume] in Ser um or PlasmaOrdered By: Gerald Theodore on 10-12-2022 Glucose [Mass/Vol] 92 mg/dL 70-100 [facility] Comment on above: ADA recommended refe rence rangeRandom Glucose Reference Range is dependent on time and content of last meal. Glucose of more than 200 mg/dL in a nonstressed, ambulatory subject supports the diagnosis of Diabetes Mellitus. Hematocrit Auto (Bld) [Volum e fraction]Ordered By: Gerald Theodore on 10-12-2022 Hematocrit (Bld) [Volume fraction] 35.2 % 34.0-46.4 [facility] Hemoglobin [Mass/volume] in BloodOrdered By: Gerald Theodore on 10-12-2022 Hemoglobin (Bld) [Mass/Vol] 11.2 g/dL 11.8-15.4 [facility] Lactate [Moles/volume] in Se rum or PlasmaOrdered By: Gerald Theodore on 10-12-2022 Lactate [Moles/Vol] 0.6 mmol/L 0.5-2.2 [facility] Lactic Acidon 10-12-2022 Lactate [Moles/Vol] 0.6 mmol/L Normal 0.5-2.2 [facility] Comment on above: Result Comment: PERF ORMED BY: [facility] [address] [place] [address] PATHOLOGIST MELTER SUPER[employer] FURNACE IAN ACE M.D. Performed By: #### C UBLD, CMP, CBC #### [facility] [address] Leukocytes [#/volume] correc julia for nucleated erythrocytes in Blood by Automated counOrdered By: Gerald Theodore on 10-12-2022 WBC corrected for nucl RBC Auto (Bld) [#/Vol] 8.6 10*3/uL 3.8-11.6 [facility] Lymphocytes Auto (Bld) [#/Vo l]Ordered By: Gerald Theodore on 10-12-2022 Lymphocytes (Bld) [#/Vol] 0.8 10*3/uL 1.00-4.8 [facility] Lymphocytes/100 WBC Auto (Bl d)Ordered By: Gerald Theodore on 10-12-2022 Lymphocytes/100 WBC (Bld) 9.6 % . [facility] MCH Auto (RBC) [Entitic mass ]Ordered By: Gerald Theodore on 10-12-2022 MCH (RBC) [Entitic mass] 25.5 pg 24.7-34.3 [facility] MCHC Auto (RBC) [Mass/Vol]Or dered By: Gerald Theodore on 10-12-2022 MCHC (RBC) [Mass/Vol] 31.8 g/dL 32.0-35.0 [facility] MCV Auto (RBC) [Entitic vol] Ordered By: Gerald Theodore on 10-12-2022 MCV (RBC) [Entitic vol] 80.1 fL 80-100 [facility] Monocyte distribution width [Entitic volume] in Blood by AutomatedOrdered By: Gerald Theodore on 10-12-2022 Monocyte distribution width Auto (Bld) [Entitic vol] 14.89 % 0.00-20.00 [facility] Monocytes Auto (Bld) [#/Vol] Ordered By: Gerald Theodore on 10-12-2022 Monocytes (Bld) [#/Vol] 0.7 10*3/uL 0.0-0.8 [facility] Monocytes/100 WBC Auto (Bld) Ordered By: Gerald Theodore on 10-12-2022 Monocytes/100 WBC (Bld) 7.9 % . [facility] Neutrophils Auto (Bld) [#/Vo l]Ordered By: Gerald Theodore on 10-12-2022 Neutrophils (Bld) [#/Vol] 6.9 10*3/uL 1.8-7.7 [facility] Neutrophils/100 WBC Auto (Bl d)Ordered By: Gerald Theodore on 10-12-2022 Neutrophils/100 WBC (Bld) 80.2 % . [facility] No Panel InformationOrdered By: Gerald Theodore on 10-12-2022 Estimated GFR (CKD-EPI) > 60.0 mL/Min [facility] Creatinine Clearance (Chem 101.06 [facility] Nucleated erythrocytes [Pres ence] in Blood by Automated countOrdered By: Gerald Theodore on 10-12-2022 Nucleated RBC Auto Ql (Bld) 0.1 /100{WBC} 0-0.5 [facility] Platelet mean volume Auto (B ld) [Entitic vol]Ordered By: Gerald Theodore on 10-12-2022 Platelet mean volume (Bld) [Entitic vol] 7.6 fL 6.3-10.7 [facility] Platelets Auto (Bld) [#/Vol] Ordered By: Gerald Theodore on 10-12-2022 Platelets (Bld) [#/Vol] 215 10*3/uL 150-450 [facility] Potassium [Moles/volume] in Serum or PlasmaOrdered By: Gerald Theodore on 10-12-2022 Potassium [Moles/Vol] 3.6 mmol/L 3.5-5.1 [facility] Protein [Mass/volume] in Ser um or PlasmaOrdered By: Gerald Theodore on 10-12-2022 Protein [Mass/Vol] 6.0 g/dL 6.4-8.9 [facility] RBC Auto (Bld) [#/Vol]Ordere d By: eGrald Theodore on 10-12-2022 RBC (Bld) [#/Vol] 4.39 10*6/uL 3.60-5.00 [facility] Serum or plasma albumin/glob ulin mass ratioOrdered By: Gerald Theodore on 10-12-2022 Albumin/Globulin [Mass ratio] 1.4 {ratio} [facility] Serum or plasma anion gap de terminationOrdered By: Gerald Theodore on 10-12-2022 Anion gap [Moles/Vol] 11.1 mmol/L 6.0-15.0 [facility] Sodium [Moles/volume] in Ser um or PlasmaOrdered By: Gerald Theodore on 10-12-2022 Sodium [Moles/Vol] 141 mmol/L 136-145 [facility] Urea nitrogen [Mass/volume] in Serum or PlasmaOrdered By: Gerald Theodore on 10-12-2022 Urea nitrogen [Mass/Vol] 20 mg/dL 7-25 [facility] WBC Auto (Bld) [#/Vol]Ordere d By: Gerald Theodore on 10-12-2022 WBC (Bld) [#/Vol] 8.6 10*3/uL 3.8-11.6 [facility] COVID Quick Testingon 2020 Result Positive [facility] [employer] Other Quick Fluon 06-06-2021 FLUAV Ab CF (S) [Titer] Negative [employer] [facility] [employer] Other FLUBV Ab CF (S) [Titer] Negative [facility] [employer] Other CNOVon 01-26-2017 CNOV Office Visit (CARDFT) ELIZABETH CESAR ([id number]) 1955 FDate Time Provider Department01/26/17 10:30 AM CARL TY During your visit today, we recorded the following information about you: Pulse Respiration Blood pressure Weight 71/minute 18/minute 162/82 145.2 kg Height 1.613 Rajesh Ty MD 01/26/2017 10:54 AM Critical access hospital and [facility] Department of Cardiovascular MedicineOUTPATIENT VISIT DATEAugus2016OUTPATIENT VISIT TYPENEW CONSULTATIONPRAMERICAN HEALTHCARE SYSTEMSRY CARE PHYSICIAN:Pepe Fermin, [address] [place] [address] [address]Azgek: [phone]: [phone] COMPLAINT:Palpitations and shortness of breathHISTORY OF PRESENT ILLNESS:[place] Cesar is a 61 year old female [facility]History includes morbid obesity, lymphedema, remote [...] of breath 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 Morbid [...] or concerns.Carl Ty M.D.Marcus DickinsonDepartment of Cardiovascular MedicineKeenan Private Hospitalrt and Vascular InstituteElizabeth Ville [address] [facility].[place], [place] [address]Eerqpa: [phone] Referring Provider: PEPE FERMIN [[id number]]Allergies As of Date: 01/26/2017(No Known Allergies)Date Reviewed: 01/26/2017Reviewed by: Mario Rodriguez (Eric) ERIC Awad - Fully AssessedReason for Visit: Shortness of Breath [227]Primary Visit Diagnosis:Essential hypertension [I10] Other Visit Diagnoses:Obesity, Class III, BMI 40-49.9 (morbid obesity) (HCC) [E66.01] Tobacco abuse [Z72.0] CHUCKIE (obstructive sleep apnea) [G47.33]Order(s):ECHO [324132] Order #: [id number]: 1 FUTUREProblem List As Of Date 01/26/2017 Noted Resolved Obesity, Class III, BMI >= 40 (morbid obesity) *INVALID FOR*Disposition: Return in about 2 months (around 03/28/2017).Follow-up and Disposition History RecordedEncounter Number: [id number] Status:Closed by CARL TY MD on 01/26/17 Normal [facility] PROGRESSon 01-23-2017 PROGRESS HNO ID: [id number] thor: Carl Art: (none)Author Type: PhysicianType: Progress NotesFiled: 01/26/2017 10:54 AMNote Text:Heart and Vascular InstituteRoblincoln county medical center and [facility] Department of Cardiovascular MedicineOUTPATIENT VISIT DATEAugus2016OUTPATIENT VISIT TYPENEW CONSULTATIONPRIMARY CARE PHYSICIAN:Pepe Fermin, [id number] [facility] [address] [address]Xlgmx: [phone]: [phone] COMPLAINT:Palpitations and shortness of breathHISTORY OF PRESENT ILLNESS:[place] Cesar is a 61 year old [facility] 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 Morbid [...] or concerns.Carl Ty M.D.Marcus Mims of Cardiovascular MedicineKeenan Private Hospitalrt and Vascular InstituteElizabeth Ville [address], [place] [address]Aizkdf: [phone] Normal [facility] Vital Signs Date Time Vital Sign Value Performing Clinician Facility 06-09-2023 14:00-0500 Body height 160.02 cm Abimbola Bran Other [facility] Other 06-09-2023 14:00-0500 Body mass index (BMI) [Ratio] 56.27 kg/m2 Abimbola Bran Other [facility] Other 06-09-2023 14:00-0500 Body temperature 98.6 [degF] Abimbola Bran Other [facility] Other 06-09-2023 14:00-0500 Body weight 144.11 kg Abimbola Bran Other [facility] Other 06-09-2023 14:00-0500 Diastolic blood pressure 72 mm[Hg] Abimbola Bran Other [facility] Other 06-09-2023 14:00-0500 SaO2% (BldA) [Mass fraction] 98 % Abimbola Bran Other [facility] Other 06-09-2023 14:00-0500 Systolic blood pressure 112 mm[Hg] Abimbola Bran Other [facility] Other 04-17-2023 12:27-0500 Body temperature 97.4 [degF] DO Abimbola Bran Work Phone: [facility] 04-17-2023 12:27-0500 Diastolic blood pressure 85 mm[Hg] DO Abimbola Bran Work Phone: [facility] 04-17-2023 12:27-0500 Heart rate 77 /min DO Abimbola Bran Work Phone: [facility] 04-17-2023 12:27-0500 Respiratory rate 18 /min DO Abimbola Bran Work Phone: [facility] 04-17-2023 12:27-0500 SaO2% (BldA) [Mass fraction] 98 % DO Abimbola Yina Work Phone: [facility] 04-17-2023 12:27-0500 Systolic blood pressure 131 mm[Hg] DO Abimbola Bran Work Phone: [facility] 04-17-2023 06:00-0500 Body weight 134 kg DO Abimbola Bran Work Phone: [facility] 04-16-2023 23:45-0500 Inhaled oxygen concentration 30 % DO Abimbola Yina Work Phone: [facility] 04-13-2023 15:46-0500 Body height 161.29 cm DO Abimbola Bran Work Phone: [facility] 04-10-2023 14:48-0400 Body temperature 97.5 [degF] DO Abimbola Yina Work Phone: [facility] 04-10-2023 14:48-0400 Diastolic blood pressure 85 mm[Hg] DO Abimbola Yina Work Phone: [facility] 04-10-2023 14:48-0400 Heart rate 86 /min DO Abimbola Yina Work Phone: [facility] 04-10-2023 14:48-0400 Respiratory rate 18 /min DO Abimbola Yina Work Phone: [facility] 04-10-2023 14:48-0400 SaO2% (BldA) [Mass fraction] 98 % DO Abimbola Bran Work Phone: [facility] 04-10-2023 14:48-0400 Systolic blood pressure 136 mm[Hg] DO Abimbola Bran Work Phone: [facility] 04-10-2023 10:11-0400 Body height 161.29 cm DO Abimbola Bran Work Phone: [facility] 04-10-2023 10:11-0400 Body weight 132.2 kg DO Abimbola Bran Work Phone: [facility] 04-07-2023 08:11-0400 Body temperature 97.1 [degF] DO Abimbola Bran Work Phone: [facility] 04-07-2023 08:11-0400 Diastolic blood pressure 95 mm[Hg] DO Abimbola Bran Work Phone: [facility] 04-07-2023 08:11-0400 Heart rate 86 /min DO Abimbola Bran Work Phone: [facility] 04-07-2023 08:11-0400 Respiratory rate 18 /min DO Abimbola Bran Work Phone: [facility] 04-07-2023 08:11-0400 SaO2% (BldA) [Mass fraction] 99 % DO Abimbola Bran Work Phone: [facility] 04-07-2023 08:11-0400 Systolic blood pressure 183 mm[Hg] DO Abimbola Bran Work Phone: [facility] 04-07-2023 08:08-0400 Body height 160.02 cm DO Abimbola Bran Work Phone: [facility] 04-07-2023 08:08-0400 Body weight 135.62 kg DO Abimbola Bran Work Phone: [facility] 02-24-2023 08:00-0400 Body height 160.02 cm Abimbola Bran Other [facility] Other 02-24-2023 08:00-0400 Body mass index (BMI) [Ratio] 54.02 kg/m2 Abimbola Bran Other [facility] Other 02-24-2023 08:00-0400 Body weight 138.35 kg Abimbola Bran Other [facility] Other 02-24-2023 08:00-0400 Diastolic blood pressure 82 mm[Hg] Abimbola Bran Other [facility] Other 02-24-2023 08:00-0400 Respiratory rate 18 /min Abimbola Bran Other [facility] Other 02-24-2023 08:00-0400 SaO2% (BldA) [Mass fraction] 97 % Abimbola Bran Other [facility] Other 02-24-2023 08:00-0400 Systolic blood pressure 122 mm[Hg] Abimbola Bran Other [facility] Other 02-03-2023 10:36-0400 Body height 160.02 cm PHYSICIAN NO [facility] 02-03-2023 10:36-0400 Body mass index (BMI) [Ratio] 59.3 kg/m2 PHYSICIAN NO [facility] 02-03-2023 10:36-0400 Body weight 151.95 kg PHYSICIAN NO [facility] 02-03-2023 09:30-0400 Body temperature 97.3 [degF] PHYSICIAN NO [facility] 02-03-2023 09:30-0400 Diastolic blood pressure 79 mm[Hg] PHYSICIAN NO [facility] 02-03-2023 09:30-0400 Heart rate 76 /min PHYSICIAN NO [facility] 02-03-2023 09:30-0400 Respiratory rate 20 /min PHYSICIAN NO [facility] 02-03-2023 09:30-0400 Systolic blood pressure 175 mm[Hg] PHYSICIAN NO [facility] 01-19-2023 08:30-0400 Body height 160.02 cm Abimbola Bran Other [facility] Other 01-19-2023 08:30-0400 Body mass index (BMI) [Ratio] 59.42 kg/m2 Abimbolaconnor Bran Other [facility] Other 01-19-2023 08:30-0400 Body temperature 98.3 [degF] Abimbolaconnor Bran Other [facility] Other 01-19-2023 08:30-0400 Body weight 152.18 kg Abimbolamirta Bran Other [facility] Other 01-19-2023 08:30-0400 Diastolic blood pressure 76 mm[Hg] Abimbolaconnor Bran Other [facility] Other 01-19-2023 08:30-0400 Respiratory rate 18 /min Abimbolamirta Bran Other [facility] Other 01-19-2023 08:30-0400 SaO2% (BldA) [Mass fraction] 97 % Abimbolaconnor Bran Other [facility] Other 01-19-2023 08:30-0400 Systolic blood pressure 120 mm[Hg] Abimbola Bran Other [facility] Other 12-31-2022 15:03-0400 Diastolic blood pressure 76 mm[Hg] PHYSICIAN NO [facility] 12-31-2022 15:03-0400 Heart rate 86 /min PHYSICIAN [facility] 12-31-2022 15:03-0400 Respiratory rate 20 /min PHYSICIAN NO [facility] 12-31-2022 15:03-0400 SaO2% (BldA) [Mass fraction] 96 % PHYSICIAN NO [facility] 12-31-2022 15:03-0400 Systolic blood pressure 166 mm[Hg] PHYSICIAN NO [facility] 12-31-2022 11:29-0400 Body height 160.02 cm PHYSICIAN NO [facility] 12-31-2022 11:29-0400 Body temperature 97.4 [degF] PHYSICIAN NO [facility] 12-31-2022 11:29-0400 Body weight 145.14 kg PHYSICIAN NO [facility] 12-29-2022 13:45-0400 Body height 160.02 cm Laith Carlson Other [facility] Other 12-29-2022 13:45-0400 Body mass index (BMI) [Ratio] 56.68 kg/m2 Laith Carlson Other [facility] Other 12-29-2022 13:45-0400 Body temperature 98.4 [degF] Laith Carlson Other [facility] Other 12-29-2022 13:45-0400 Body weight 145.15 kg Laith Carlson Other [facility] Other 12-29-2022 13:45-0400 Diastolic blood pressure 78 mm[Hg] Laith Carlson Other [facility] Other 12-29-2022 13:45-0400 Systolic blood pressure 153 mm[Hg] Laith Carlson Other [facility] Other 12-14-2022 01:34-0400 Diastolic blood pressure 80 mm[Hg] PHYSICIAN NO [facility] 12-14-2022 01:34-0400 Heart rate 75 /min PHYSICIAN NO [facility] 12-14-2022 01:34-0400 Respiratory rate 18 /min PHYSICIAN NO [facility] 12-14-2022 01:34-0400 SaO2% (BldA) [Mass fraction] 98 % PHYSICIAN NO [facility] 12-14-2022 01:34-0400 Systolic blood pressure 165 mm[Hg] PHYSICIAN NO [facility] 12-13-2022 23:53-0400 Body temperature 97.7 [degF] PHYSICIAN NO [facility] 12-13-2022 21:24-0400 Body height 160.02 cm PHYSICIAN NO [facility] 12-13-2022 21:24-0400 Body weight 153.5 kg PHYSICIAN NO [facility] 12-08-2022 08:18-0400 Diastolic blood pressure 53 mm[Hg] PHYSICIAN NO [facility] 12-08-2022 08:18-0400 Heart rate 56 /min PHYSICIAN NO [facility] 12-08-2022 08:18-0400 Systolic blood pressure 101 mm[Hg] PHYSICIAN NO [facility] 12-05-2022 08:22-0400 Body temperature 97.7 [degF] PHYSICIAN NO [facility] 12-02-2022 09:00-0400 Respiratory rate 18 /min PHYSICIAN NO [facility] 12-02-2022 09:00-0400 SaO2% (BldA) [Mass fraction] 96 % PHYSICIAN NO [facility] 12-01-2022 20:48-0400 Diastolic blood pressure 66 mm[Hg] PHYSICIAN NO [facility] 12-01-2022 20:48-0400 Heart rate 72 /min PHYSICIAN NO [facility] 12-01-2022 20:48-0400 Respiratory rate 21 /min PHYSICIAN NO [facility] 12-01-2022 20:48-0400 SaO2% (BldA) [Mass fraction] 97 % PHYSICIAN NO [facility] 12-01-2022 20:48-0400 Systolic blood pressure 137 mm[Hg] PHYSICIAN NO [facility] 12-01-2022 18:20-0400 Body height 160.02 cm PHYSICIAN NO [facility] 12-01-2022 18:20-0400 Body temperature 98.1 [degF] PHYSICIAN NO [facility] 12-01-2022 18:20-0400 Body weight 151.2 kg PHYSICIAN NO [facility] 11-24-2022 08:43-0400 Body height 160.02 cm PHYSICIAN NO [facility] 11-24-2022 08:43-0400 Body mass index (BMI) [Ratio] 58.4 kg/m2 PHYSICIAN NO [facility] 11-24-2022 08:43-0400 Body weight 149.68 kg PHYSICIAN NO [facility] 11-24-2022 08:27-0400 Body temperature 98.1 [degF] PHYSICIAN NO [facility] 11-24-2022 08:27-0400 Diastolic blood pressure 97 mm[Hg] PHYSICIAN NO [facility] 11-24-2022 08:27-0400 Heart rate 78 /min PHYSICIAN NO [facility] 11-24-2022 08:27-0400 Respiratory rate 24 /min PHYSICIAN NO [facility] 11-24-2022 08:27-0400 Systolic blood pressure 159 mm[Hg] PHYSICIAN NO [facility] 11-06-2022 10:30-0400 Body temperature 97.5 [degF] PHYSICIAN NO [facility] 11-06-2022 10:30-0400 Diastolic blood pressure 80 mm[Hg] PHYSICIAN NO [facility] 11-06-2022 10:30-0400 Heart rate 71 /min PHYSICIAN NO [facility] 11-06-2022 10:30-0400 Systolic blood pressure 146 mm[Hg] PHYSICIAN NO [facility] 11-05-2022 14:05-0400 Diastolic blood pressure 82 mm[Hg] PHYSICIAN NO [facility] 11-05-2022 14:05-0400 Heart rate 90 /min PHYSICIAN NO [facility] 11-05-2022 14:05-0400 Respiratory rate 18 /min PHYSICIAN NO [facility] 11-05-2022 14:05-0400 SaO2% (BldA) [Mass fraction] 92 % PHYSICIAN NO [facility] 11-05-2022 14:05-0400 Systolic blood pressure 180 mm[Hg] PHYSICIAN NO [facility] 11-05-2022 11:46-0400 Body height 161.29 cm PHYSICIAN NO [facility] 11-05-2022 11:46-0400 Body temperature 98 [degF] PHYSICIAN NO [facility] 11-05-2022 11:46-0400 Body weight 147.65 kg PHYSICIAN NO [facility] 10-30-2022 15:13-0400 Body temperature 98.6 [degF] PHYSICIAN NO [facility] 10-30-2022 15:13-0400 Diastolic blood pressure 95 mm[Hg] PHYSICIAN NO [facility] 10-30-2022 15:13-0400 Heart rate 86 /min PHYSICIAN NO [facility] 10-30-2022 15:13-0400 Respiratory rate 20 /min PHYSICIAN NO [facility] 10-30-2022 15:13-0400 Systolic blood pressure 186 mm[Hg] PHYSICIAN NO [facility] 10-21-2022 11:17-0400 Body height 160.02 cm PHYSICIAN NO [facility] 10-21-2022 11:17-0400 Body mass index (BMI) [Ratio] 58.4 kg/m2 PHYSICIAN NO [facility] 10-21-2022 11:17-0400 Body weight 149.68 kg PHYSICIAN NO [facility] 10-17-2022 20:25-0400 Body temperature 97.9 [degF] PHYSICIAN NO [facility] 10-17-2022 20:25-0400 Diastolic blood pressure 91 mm[Hg] PHYSICIAN NO [facility] 10-17-2022 20:25-0400 Heart rate 70 /min PHYSICIAN NO [facility] 10-17-2022 20:25-0400 Respiratory rate 17 /min PHYSICIAN NO [facility] 10-17-2022 20:25-0400 SaO2% (BldA) [Mass fraction] 95 % PHYSICIAN NO [facility] 10-17-2022 20:25-0400 Systolic blood pressure 165 mm[Hg] PHYSICIAN NO [facility] 10-12-2022 19:31-0400 Diastolic blood pressure 78 mm[Hg] PHYSICIAN NO [facility] 10-12-2022 19:31-0400 Heart rate 80 /min PHYSICIAN NO [facility] 10-12-2022 19:31-0400 Respiratory rate 18 /min PHYSICIAN NO [facility] 10-12-2022 19:31-0400 SaO2% (BldA) [Mass fraction] 98 % PHYSICIAN NO [facility] 10-12-2022 19:31-0400 Systolic blood pressure 138 mm[Hg] PHYSICIAN NO [facility] 10-12-2022 17:48-0400 Body height 160.02 cm PHYSICIAN NO [facility] 10-12-2022 17:48-0400 Body temperature 98.7 [degF] PHYSICIAN NO [facility] 10-12-2022 17:48-0400 Body weight 149.68 kg PHYSICIAN NO [facility] 06-06-2021 18:30-0500 Body height 160.02 cm Shayla Ginty Other [facility] Other 06-06-2021 18:30-0500 Body mass index (BMI) [Ratio] 51.37 kg/m2 Shayla Ginty Other [facility] Other 06-06-2021 18:30-0500 Body temperature 97.2 [degF] Shayla Ginty Other [facility] Other 06-06-2021 18:30-0500 Body weight 131.54 kg Shayla Ginty Other [facility] Other 06-06-2021 18:30-0500 Respiratory rate 18 /min Shayla Ginty Other [facility] Other 06-06-2021 18:30-0500 SaO2% (BldA) [Mass fraction] 93 % Shayla Ginty Other [facility] Other Encounters Encounter Date Encounter Type Care Provider Facility Start: 07-07-2023 End: 07-07-2023 ambulatory Abimbolamirta Bran Other [facility] Other Start: 07-07-2023 Telephone encounter Abimbola Bran [facility] Start: 06-15-2023 End: 06-15-2023 ambulatory Baimbolamirta Bran Other [facility] Other Start: 06-15-[address] [facility] [place] Start: 06-09-2023 End: 06-09-2023 ambulatory Abimbolamirta Bran Other [facility] Other Start: 06-09-2023 Office outpatient visit 25 minutes Abimbolaconnor Bran [facility] [place] Start: 06-09-2023 Telephone encounter Abimbola Bran [facility] Start: 04-20-2023 End: 04-20-2023 ambulatory Abimbolamirta Bran Other [facility] Other Start: 04-20-2023 Telephone encounter Abimbola Bran [facility] Start: 04-10-2023 End: 04-17-2023 Evaluation and management of inpatient Laith Robyn Facility:[facility] Start: 04-10-2023 End: 04-17-2023 Evaluation and management of inpatient DO Abimbola Bran Work Phone: [facility] [place] [facility] Work Phone: Start: 04-07-2023 End: 04-07-2023 Emergency department patient visit Jhonatan Zuniga Mervat Facility:[facility] Start: 04-07-2023 End: 04-07-2023 Emergency department patient visit DO Abimbola Bran Work Phone: [facility]-Emergency Room Work Phone: Start: 02-24-2023 End: 02-24-2023 ambulatory Abimbolamirta Bran Other [facility] Other Start: 02-24-2023 Office outpatient visit 15 minutes Abimbola Bran [facility] Start: 02-03-2023 End: 02-03-2023 ambulatory Abimbola Bran Facility:[facility] Start: 02-03-2023 End: 02-03-2023 ambulatory PHYSICIAN NO [facility] Work Phone: Start: 02-03-2023 End: 02-03-2023 Discharged Recurring PHYSICIAN NO [facility] [place] Work Phone: Start: 02-03-2023 [facility] [place] Work Phone: Start: 02-02-2023 End: 02-03-2023 ambulatory Laith Carlson Facility:[facility] Start: 02-02-2023 End: 02-02-2023 ambulatory PHYSICIAN NO [facility] Work Phone: Start: 02-02-2023 End: 02-02-2023 Discharged Recurring PHYSICIAN NO [facility]-Infusion Therapy - O/P Work Phone: Start: 01-27-2023 End: 01-27-2023 ambulatory Abimbola Bran Other [facility] Other Start: 01-27-2023 Telephone encounter Abimbola Bran [facility] [place] Start: 01-20-2023 End: 01-20-2023 ambulatory Laith Carlson Other [facility] Other Start: 01-20-2023 Telephone encounter Laith Carlson [facility] Start: 01-19-2023 End: 01-19-2023 ambulatory Abimbola Bran Other [facility] Other Start: 01-19-2023 Office outpatient ne w 45 minutes Abimbola Bran [facility] Start: 01-06-2023 End: 01-06-2023 ambulatory Laith Carlson Other [facility] Other Start: 01-06-2023 Telephone encounter Laith Carlson [facility] Start: 12-31-2022 End: 12-31-2022 ambulatory Abimbola Bran Other [facility] Other Start: 12-31-2022 Telephone encounter Abimbola Bran [facility] Medicine [place] Start: 12-31-2022 End: 12-31-2022 Emergency department patient visit Abimbola Bran Facility:[facility] Start: 12-31-2022 End: 12-31-2022 Emergency department patient visit PHYSICIAN NO [facility]-Emergency Room Work Phone: Start: 12-29-2022 End: 12-29-2022 ambulatory Laith Carlson Other [facility] Other Start: 12-29-2022 Office outpatient ne w 45 minutes Laith PANDYA Infectious Disease Start: 12-19-2022 End: 12-19-2022 ambulatory PHYSICIAN NO FAMILY Facility:[facility] Start: 12-19-2022 End: 12-19-2022 Discharged Recurring PHYSICIAN NO FAMILY [facility]-Chinese Medicine Practitioner [address] Start: 12-15-2022 End: 12-15-2022 ambulatory Abimbola Bran Other [facility] Other Start: 12-15-2022 Telephone encounter Abimbola Bran [facility] Fernando Start: 12-13-2022 End: 12-14-2022 Emergency department patient visit Abimbola Bran Facility:[facility] Start: 12-13-2022 End: 12-14-2022 Emergency department patient visit PHYSICIAN NO FAMILY [facility]-Emergency Room Work Phone: Start: 12-08-2022 End: 12-09-2022 ambulatory Laith Warner Facility:[facility] Start: 12-08-2022 End: 12-08-2022 Discharged Recurring PHYSICIAN NO [facility]-Infusion Therapy - O/P Work Phone: Start: 12-05-2022 Registered Recurring PHYSICIAN NO [facility] Ctr-Chinese Medicine Practitioner [address] Start: 12-01-2022 End: 12-01-2022 Emergency department patient visit Laith Warner Facility:[facility] Start: 12-01-2022 End: 12-01-2022 Emergency department patient visit PHYSICIAN NO [facility]-Emergency Room Work Phone: Start: 11-28-2022 Registered Recurring PHYSICIAN NO [facility]-Chinese Medicine Practitioner [address] Start: 11-24-2022 End: 11-24-2022 ambulatory Evelyn Leon Facility:[facility] Start: 11-24-2022 End: 11-24-2022 Discharged Recurring PHYSICIAN NO [facility]-Wound Care [place] Work Phone: Start: 11-24-2022 Registered Recurring PHYSICIAN NO [facility]-Wound Care [place] Work Phone: Start: 11-07-2022 End: 11-07-2022 ambulatory PHYSICIAN NO FAMILY Facility:[facility] Start: 11-07-2022 End: 11-07-2022 Discharged Recurring PHYSICIAN NO [facility]-Infusion Therapy - O/P Work Phone: Start: 11-07-2022 Registered Recurring PHYSICIAN NO [facility]-Infusion Therapy - O/P Work Phone: Start: 11-05-2022 Registered Recurring PHYSICIAN NO [facility]-Infusion Therapy - O/P Work Phone: Start: 11-05-2022 End: 11-05-2022 Emergency department patient visit PHYSICIAN NO FAMILY Facility:[facility] Start: 11-05-2022 End: 11-05-2022 Emergency department patient visit PHYSICIAN NO [facility]-Emergency Room Work Phone: Start: 11-05-2022 Registered Recurring PHYSICIAN NO [facility]tr-Chinese Medicine Practitioner [address] Start: 10-30-2022 Registered Recurring PHYSICIAN NO [facility]-Wound Care [place] Work Phone: Start: 10-17-2022 End: 10-17-2022 ambulatory Gerlad Saniya Theodore Facility:[facility] Start: 10-17-2022 End: 10-17-2022 ambulatory PHYSICIAN NO [facility] Work Phone: Start: 10-17-2022 End: 10-17-2022 Discharged Recurring PHYSICIAN NO [facility]-Infusion Therapy - O/P Work Phone: Start: 10-17-2022 Registered Recurring PHYSICIAN NO [facility]-Infusion Therapy - O/P Work Phone: Start: 10-12-2022 End: 10-12-2022 Emergency department patient visit Gerald Saniya Theodore Facility:[facility] Start: 10-12-2022 End: 10-12-2022 Emergency department patient visit PHYSICIAN NO [facility]-Emergency Room Work Phone: Start: 06-06-2021 End: 06-06-2021 ambulatory Shayla Motta Other [facility] Other Start: 06-06-2021 Office outpatient visit [address] [facility] [place] Start: 01-26-2017 End: 02-03-2017 Ambulatory CARL [facility] Procedures Date Procedure Procedure Detail Performing Clinician [...] Date Care Activity Detail Author Start: 04-16-2023 [facility] Start: 04-15-2023 Insertion of peripherally inserted central catheter [facility] Start: 04-13-2023 Referral to infectio us diseases physician [facility] Start: 04-10-2023 Hospital admission [facility] Start: 04-10-2023 [facility] Start: 04-10-2023 Aerobic microbial culture Superficial Wound Culture [facility] Start: 04-10-2023 Bacteria identified in Blood by Culture [facility] Start: 04-10-2023 Bacteria identified in Urine by Culture [facility] Start: 12-13-2022 Superficial Wound Culture Superficial Wound Culture [facility] Start: 12-01-2022 Bacteria identified in Blood by Culture [facility] Start: 11-05-2022 Bacteria identified in Blood by Culture [facility] Start: 10-12-2022 Bacteria identified in Blood by Culture [facility] Bacteria identified in Unspecified specimen by Aerobe culture [facility] Blood chemistry [facility] Patient Education [facility] Work Phone: Patient referral [facility] Work Phone: Immunizations Immunization Date Immunization Notes Care Provider Jean Paul rowland 01-19-2023 Prevnar 20 Abimbola Bran Other [facility] Other NEGATED: Highlighted row has not occurred!01-19-2023 influenza, seasonal, injectable Patient Objection Abimbola Bran Other [facility] Other Payers Date Payer Category Payer Unknown [id number] 2023 Unknown [id number] 2.16. [id number] 2022 Unknown [id number] 2022 Medicare [id number] 2022 Self-pay [id number] 2022 Unknown [id number] 2015 Unknown Brenda BC/BS BRIANNA [id number] 2 [id number] Unknown [id number] Unknown [id number] Unknown [id number] . [id number] Unknown [id number] 2.16.8 40.1.837844.3.579.2.531 Unknown [id number] 2.16.8 40.1.694940.3.579.2.531 Unknown [id number] 2.16.8 40.1.020453.3.579.2.531 Unknown [id number] 2.16.8 40.1.333435.3.579.2.531 Unknown [id number] 2.16.8 40.1.721017.3.579.2.531 Unknown [id number] 2.16.8 40.1.448908.3.579.2.531 Unknown [id number] 2.16.8 40.1.741786.3.579.2.531 Unknown [id number] 2.16.8 40.1.856151.3.579.2.531 Unknown [id number] 2.16.8 40.1.949643.3.579.2.531 Unknown [id number] 2.16.8 40.1.150403.3.579.2.531 Unknown [id number] 2.16.8 40.1.311969.3.579.2.531 Unknown [id number] 2.16.8 40.1.660665.3.579.2.531 Unknown [id number] 2.16.8 40.1.434160.3.579.2.531 Unknown [id number] 2.16.8 40.1.065906.3.579.2.531 Social History Date Type Detail Facility Sex Assigned At [facility] Other Start: 10-12-2022 End: 04-07-2023 Tobacco smoking status [facility] Never smoked tobacco (finding) [facility] Start: 1955 Sex Assigned At Female F [facility] Start: 11-05-2022 End: 04-13-2023 Tobacco smoking status KY[facility] Ex-smoker (finding) [facility] Goals Date Patient Goal Desired Activity /State Functional Status Date Assessment Result Facility 04-17-2023 Functional status Patient at [facility] Work Phone: 04-10-2023 Functional status Patient at [facility] Work Phone: Mental Status Date Assessment Result Facility 04-17-2023 Cognitive function Cognitive Sta tus Patient at Baseline [facility] Work Phone: 04-10-2023 Cognitive function Cognitive Sta tus Patient at Baseline [facility] Work Phone: Clinical Notes 06-06-2021 to 07-07-2023 Note Date & Type Note Facility 07-07-2023 Evaluation note Encounter Date Diagnosis Assessment Notes Jun, 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 Has significant pain with dressing changes, can [...] of furosemide, would greatly benefit form SCDs. [facility] Other 11-10-2023 Progress note Author Selvin Bey [facility] April 17, 2023 9:42am Note Date/Time April 17, 2023 9:42am [facility] ENTER [address] [place] [address] Hospitalist Progress Note Signed Patient: Albania Cesar MR#: [id number] : 1955 Acct:[id number] Age/Sex: 67 / F Adm Date: 3 Loc: Room: [address] [place] [address] Type: ADM IN Attending Dr: Selvin Bey [...] mg 04/16/23 20:26 Bisacodyl 10 Mg Supp.Rect [place] 04/15/24 20:25 DAILY PRN Constipation Celecoxib 100 [...] Plan is to discharge patient to the skilled nursing for wound care and intravenous antibiotic for [...] PRN, oxycodone 5 mg Q6H PRN, Tylenol npupqh-bky-ubgkn. -Continue Celebrex 100 mg twice daily. Patient [...] consider gastric bypass Patient is moving to [facility] on discharge. IV antibiotics continued to maximize benefit of going to this facility. PICC line ordered and antibiotics switched to ertapenem. Documented By: Selvin Bey MD 04/17/23939 Signed By: <Electronically signed by Selvin Bey MD> 04/17/23941 [facility] Work Phone: 1([phone]) 203-919911-09-2023 Discharge summary Author Selvin Bey [facility] April 16, 2023 12:03pm Note Date/Time April 16, 2023 1 1:58am [facility] EN[facility] [address] [place] [address] Discharge Summary Signed Patient: Albania Cesar MR#: [id number] : 1955 Acct:[id number] Age/Sex: 67 / F Adm Date: 3 Loc: Room: [address] [place] [address]: Selvin Bey MD Copies to: [...] and treatment. Patient is also following at [place] regarding lymphedema and appears to be getting [...] hospital stay. [facility] PICC line placed and antibiotic [...] ask her primary care doctor to obtain [facility] record entirely to address abnormalities seen on [...] HCV RNA (PCR) IU/mL N/A, HCVRNA PCR type copyist log10 N/A, Hepatitis C Interp Exam [...] TID PRN (Reason: Pain) Other Ambulatory Orders: [employer] polysom procedure (Routine) Timeframe: [id number] Location: Determined by Patient Ordered By: Selvin Bey Follow Up: [facility] Central Scheduling [Outside] (Centralized scheduling will contact [...] signed by Selvin Bey MD> 04/16/23 1203 [facility] Work Phone: 1(451) 397-151311-09-2023 Progress note Author Laith Carlson [facility] April 16, 2023 9:18am Note Date/Time April 16, 2023 9 :15am [facility] ENTER [address] [place] [address] Infect. Disease Progress Note Signed Patient: Albania Cesar MR#: [id number] : 1955 Acct:[id number] Age/Sex: 67 / F Adm Date: 3 Loc: Room: [address] [place] [address] Type: ADM IN Attending Dr: Selvin Bey [...] 325 Mg Tablet) 650 mg PO Q8H [facility] Stop: 04/10/24 10:14 Last Admin: 04/16/23 03:21 Dose: 650 mg Celecoxib (Celecoxib 100 Mg Capsule) 100 mg PO BID [facility] Stop: 04/13/24 20:59 Last Admin: 04/16/23 08:04 Dose: 100 mg Enoxaparin Sodium (Enoxaparin 40 Mg/0.4 Ml Syringe) 40 mg SUBCUT Q12HR.10A.10P [facility] Stop: 04/12/24 21:59 Last Admin: 04/15/23 10:23 Dose: 40 mg Hydromorphone HCl (Hydromorphone 1 Mg/Ml Syringe) 0.5 mg IV-PUSH DAILY PRN PRN Reason: Wound dressing Last Admin: 04/15/23 11:38 Dose: 0.5 mg Ertapenem (Invanz) 1 gm in 100 mls @ 200 mls/hr IV Q24H [facility] Last Infusion: 04/15/23 10:53 Dose: Infused [...] 40 Mg Tablet.Dr) 40 mg PO DAILY [facility] Stop: 04/10/24 10:29 Last Admin: 04/16/23 08:04 Dose: 40 mg Potassium Phos/Sodium Phos (Sodium, Potassium Phosphates 1 Each Powd.Pack) 1 each PO TID.PC.HS [facility] Stop: 04/13/24 13:09 Last Admin: 04/16/23 08:04 Dose: 1 each Pregabalin (Pregabalin 50 Mg Capsule) 50 mg PO BID [facility] Stop: 10/12/23 12:14 Last Admin: 04/16/23 08:04 [...] She is post to go to the [facility] today. Planning 2 to 3 weeks of [place] ertapenem. Aggressive wound care to be continued. Documented By: Laith Carlson MD 04/16/23912 Signed By: <Electronically signed by MD Laith Carlson> 04/16/23917 [facility] Work Phone: 1([phone]) 216-875011-08-2023 Progress note Author Selvin Bey [facility] April 15, 2023 12:09pm Note Date/Time April 15, 2023 1 2:09pm [facility] EN[facility] [address] [place] [address] Hospitalist Progress Note Signed Patient: Albania Cesar MR#: [id number] : 1955 Acct:[id number] Age/Sex: 67 / F Adm Date: 3 Loc: Room: [address] [place] [address] Type: ADM IN Attending Dr: Selvin Bey MD Copies to: ~ Date of Service: 04/15/2023 Subjective Subjective Narrative: Ms. Cesar is sitting in her chair when I enter the room. She says she is feeling better today. She is still experiencing pain in her lower extremities bilaterally. She says the Dilaudid has helped with pain. She tells me she is going to [facility] on discharge. She is rating her [...] The patient will be going to a retirement facility to facilitate identified infusion and wound [...] PRN, oxycodone 5 mg Q6H PRN, Tylenol pmkwsu-gkn-bwews. -Continue Celebrex 100 mg twice daily. Patient [...] consider gastric bypass Patient is moving to [facility] on discharge. IV antibiotics continued to maximize benefit of going to this facility. PICC line ordered and antibiotics switched to ertapenem. Documented By: Selvin Bey MD 04/15/23 1005 Signed By: <Electronically signed by Selvin Bey MD> 04/15/23 1209 [facility] Work Phone: [phone]) 594-247311-08-2023 Hospital Discharge instructions Additional Instructions SNF to [...] 90% -Care to be managed by SNF providers.[facility] Work Phone: 1([phone]) 567-358411-08-2023 Progress note Author Laith Carlson [facility] April 15, 2023 9:25am Note Date/Time April 15, 2023 9 :16am [facility] EN[facility] [address] [place] [address] Infect. Disease Progress Note Signed Patient: Albania Cesar MR#: [id number] : 1955 Acct:[id number] Age/Sex: 67 / F Adm Date: 3 Loc: Room: [address] [place] [address] Type: ADM IN Attending Dr: Selvin Bey [...] 325 Mg Tablet) 650 mg PO Q8H [facility] Stop: 04/10/24 10:14 Last Admin: 04/15/23 03:39 Dose: 650 mg Celecoxib (Celecoxib 100 Mg Capsule) 100 mg PO BID [facility] Stop: 04/13/24 20:59 Last Admin: 04/15/23 08:24 Dose: 100 mg Enoxaparin Sodium (Enoxaparin 40 Mg/0.4 Ml Syringe) 40 mg SUBCUT Q12HR.10A.10P [facility] Stop: 04/12/24 21:59 Last Admin: 04/14/23 21:19 Dose: 40 mg Hydromorphone HCl (Hydromorphone 1 Mg/Ml Syringe) 0.5 mg IV-PUSH DAILY PRN PRN Reason: Wound dressing Last Admin: 04/14/23 09:24 Dose: 0.5 mg Cefepime HCl (Maxipime) 2 gm in 50 mls @ 100 mls/hr IV Q12H [facility] Last Admin: 04/15/23 05:19 Dose: 100 [...] 40 Mg Tablet.Dr) 40 mg PO DAILY [facility] Stop: 04/10/24 10:29 Last Admin: 04/15/23 08:24 Dose: 40 mg Potassium Phos/Sodium Phos (Sodium, Potassium Phosphates 1 Each Powd.Pack) 1 each PO TID.PC.HS [facility] Stop: 04/13/24 13:09 Last Admin: 04/15/23 [...] patient tells me she is going to [facility] for ongoing retirement facility care which is a significant improvement [...] <Electronically signed by MD Laith Carlson> 04/15/23924 [facility] Work Phone: [phone]) 572-226311-07-2023 Progress note Author Selvin Bey [facility] April 14, 2023 1:12pm Note Date/Time April 14, 2023 1 :13pm [facility] EN[facility] [address] [place] [address] Hospitalist Progress Note Signed Patient: Albania Cesar MR#: [id number] : 1955 Acct:[id number] Age/Sex: 67 / F Adm Date: 3 Loc: Room: [address] [place] [address] Type: ADM IN Attending Dr: Selvin Bey [...] as needed oxycodone 5 mg Q6H, Tylenol akuffz-tao-zjfxp. -Added Celebrex 100 twice daily. Hypokalemia, hypophosphatemia [...] <Electronically signed by Selvin Bey MD> 04/14/23 [facility] Work Phone: 1(854) 552-835311-07-2023 Progress note Author Laith Carlson [facility] April 14, 2023 9:31am Note Date/Time April 14, 2023 9 :31am [facility] EN[facility] [address] [place] [address] Infect. Disease Progress Note Signed Patient: Albania Cesar MR#: [id number] : 1955 Acct:[id number] Age/Sex: 67 / F Adm Date: 3 Loc: Room: [address] [place] [address] Type: ADM IN Attending Dr: Selvin Bey [...] 325 Mg Tablet) 650 mg PO Q8H [facility] Stop: 04/10/24 10:14 Last Admin: 04/14/23 03:21 Dose: 650 mg Enoxaparin Sodium (Enoxaparin 40 Mg/0.4 Ml Syringe) 40 mg SUBCUT Q12HR.10A.10P [facility] Stop: 04/12/24 21:59 Last Admin: 04/14/23 00:07 Dose: 40 mg Hydromorphone HCl (Hydromorphone 1 Mg/Ml Syringe) 0.5 mg IV-PUSH DAILY PRN PRN Reason: Wound dressing Last Admin: 04/14/23 09:24 Dose: 0.5 mg Cefepime HCl (Maxipime) 2 gm in 50 mls @ 100 mls/hr IV Q12H [facility] Last Admin: 04/14/23 05:18 Dose: 100 mls/hr Vancomycin HCl 1.5 gm/ (Dextrose) 530 mls @ 353.333 mls/hr IV Q24H [facility] Stop: 04/14/24 00:59 Ondansetron HCl (Ondansetron [...] 40 Mg Tablet.Dr) 40 mg PO DAILY [facility] Stop: 04/10/24 10:29 Last Admin: 04/14/23 [...] <Electronically signed by MD Laith Carlson> 04/14/2331 [facility] Work Phone: 1(745) 341-967111-06-2023 Consult note Author Laith Carlson [facility] April 13, 2023 1:05pm Note Date/Time April 13, 2023 1 :05pm [facility] EN[facility] [address] [place] [address] Infect. Disease Consult Note Signed Patient: Albania Cesar MR#: [id number] : 1955 Acct:[id number] Age/Sex: 67 / F Adm Date: 3 Loc: Room: [address] [place] [address] Type: ADM IN Attending Dr: Selvin Bey [...] initially for. She also did follow-up with [place] [facility] and had 2-3 veins ligated/removed. [...] negative unless noted below or in HPI [facility] Medical History (Updated 04/12/23 @ [...] each IV PRN PRN; Protocol PRN Reason: ZCarlos.Pharmacy Consult Exam Physical Exam Vital Signs: Vital [...] @ 100 mls/hr IV Q12H [facility] Rx#: [id number] Vancomycin 1.75 gm In Dextrose 500 / 500 5 % in Water 500 ml @ 285.714 mls/hr IV Q24H [facility] Rx#:[id number] Oral 300 / 800 250 / 250 [...] follow-up with the vein specialist down in [place] who what sounds to be did some [...] <Electronically signed by MD Laith Carlson> 04/13/23 8824 [facility] Work Phone: 1(756) 947-377211-06-2023 Progress note Author Selvin Bey [facility] April 13, 2023 12:36pm Note Date/Time April 13, 2023 1 2:36pm [facility] EN[facility] [address] [place] [address] Hospitalist Progress Note Signed Patient: Albania Cesar MR#: [id number] : 1955 Acct:[id number] Age/Sex: 67 / F Adm Date: 3 Loc: Room: [address] [place] [address] Type: ADM IN Attending Dr: Selvin Bey [...] oxycodone 5 mg Q6H, Tylenol and Voltaren jffqcv-oye-pqtps. ALFREDO-improving -BUN elevated to 43, Cr 1.21 [...] signed by Selvin Bey MD> 04/13/23 1236 [facility] Work Phone: 1(398) 977-425211-05-2023 Consult note Author Mario Mayorga [facility] April 12, 2023 1:22pm Note Date/Time April 12, 2023 9 :40am [facility] EN[facility] [address] [place] [address] Pulmonology Consult Note Signed Patient: Albania Cesar MR#: [id number] : 1955 Acct:[id number] Age/Sex: 67 / F Adm Date: 3 Loc: Room: [address] [place] [address] Type: ADM IN Attending Dr: Malorie Nathan [...] and had been treated with autotitratingCPAP of 15-00cpX4L. Review of Systems Review of Systems Unobtainable due to mental status [facility] Medical History (Updated 04/12/23 @ [...] support. Documented By: Mario Mayorga MD 3 9666 Signed By: <Electronically signed by MD Mario Mayorga> 04/12/23 4387 [facility] Work Phone: 1(454) 405-275411-05-2023 Progress note Author Malorie Nathan [facility] April 12, 2023 1:05pm Note Date/Time April 12, 2023 1 :05pm [facility] EN[facility] [address] [place] [address] Hospitalist Progress Note Signed Patient: Albania Cesar MR#: [id number] : 1955 Acct:[id number] Age/Sex: 67 / F Adm Date: 3 Loc: Room: [address] [place] [address] Type: ADM IN Attending Dr: Malorie Nathan [...] mg every 6 hours, Tylenol and Voltaren mbpmdm-[id number] ALFREDO Kidney function improved, continue to monitor [...] <Electronically signed by Malorie Nathan MD> 04/12/23 1374 [facility] Work Phone: 1(233) 861-283311-04-2023 Progress note Author Malorie Nathan [facility] April 11, 2023 12:16pm Note Date/Time April 11, 2023 1 2:16pm [facility] EN[facility] [address] [place] [address] Hospitalist Progress Note Signed Patient: Albania Cesar MR#: [id number] : 1955 Acct:[id number] Age/Sex: 67 / F Adm Date: 3 Loc: Room: [address] [place] [address] Type: ADM IN Attending Dr: Malorie Nathan [...] 6 hours as needed, Tylenol and Voltaren yiaqtr-rkg-mpbsx ALFREDO -BUN elevated to 43, Cr 1.21 [...] <Electronically signed by Malorie Nathan MD> 04/11/23 [facility] Work Phone: 1(871) 791-449511-04-2023 Progress note Author Laith Monte [facility] April 11, 2023 8:54am Note Date/Time April 11, 2023 8 :55am [facility] EN[facility] [address] [place] [address] Event Note Signed Patient: Albania Cesar MR#: [id number] : 1955 Acct:[id number] Age/Sex: 67 / F Adm Date: 3 Loc: Room: [address] [place] [address] Type: ADM IN Attending Dr: Malorie Nathan [...] signed by Laith Monte DO> 04/11/23 0854 [facility] Work Phone: 1([phone]) 376-294211-03-2023 History and physical note Author Neeraj Farrell [facility] April 10, 2023 4:36pm Note Date/Time April 10, 2023 4 :36pm [facility] EN[facility] [address] [place] [address] Hospitalist H&P Signed Patient: Albania Cesar MR#: [id number] : 1955 Acct:[id number] Age/Sex: 67 / F Adm Date: 3 Loc: Room: [address] [place] [address] Type: ADM IN Attending Dr: Neeraj Farrell [...] and treatment. Patient is also following at [place] regarding lymphedema and appears to be getting [...] constipation, diarrhea : Denies dysuria, hematuria, polyuria. [facility] Medical History (Updated 04/10/23 @ [...] % (Auto) 3.2 % (.) 04/10/23 10:20 [place] % (Auto) 5.0 % (.) 04/10/23 10:20 Eos % (Auto) 1.0 % (.) 04/10/23 10:20 Baso % (Auto) 0.5 % (.) 04/10/23 10:20 Nucleat RBC Rel Count 0.1 /100 WBC (0-0.5) 04/10/23 10:20 Neut # (Auto) 11.7 x10E3/uL (1.8-7.7) H 04/10/23 10:20 Lymph # (Auto) 0.4 x10E3/uL (1.00-4.8) L 04/10/23 10:20 [place] # (Auto) 0.6 x10E3/uL (0.0-0.8) 04/10/23 10:20 [...] pH 6.0 (5.0-9.0) 04/10/23 10:28 Ur Specific [place] 1.034 (1.001-1.030) H 04/10/23 10:28 Urine Protein [...] signed by Neeraj Farrell MD> 04/10/23 1631 [facility] Work Phone: 1(547) 472-925309-19-2023 Evaluation note* Encounter Date Diagnosis Assessment Notes [...] Consider returning to ID [facility] Other 08-29-2023 Progress note Author Albino Saxena [facility] February 03, 2023 10:36am Note Date/Time February 03, 2023 10 :36am [facility] [address] [place] [address] Wound Center Provider Note Signed Patient: [place] Cesar MR#: [id number] : 1955 Acct:[id number] Age/Sex: 67 / F Copies to: MD [...] Intensity: 0 Wound/Ulcer History Mode of Arrival/ Equipment Driver: Personal vehicle Assistive Device Used Today: Cane [...] Skin/Breast: Reports wounds Neurologic Neurologic: Denies syncope [facility] Medical History (Updated 02/03/23 @ [...] Q6H PRN pain 3 days #10 tabs 07/09/23 [Rx Confirmed 02/03/23] Allergies No Known Allergies Allergy (Verified 12/31/22 11:28) Wound/Ulcer Left Lower Leg: Bed Appearance: Beefy Red, Markesan and Yellow Percent of Wound Bed Granulated/Red: 50 Percent of Devitalized: 50 Length (cm): 23.0 Width (cm): 55.0 Depth (cm): 0.1 CM Sq: 1265.000 Surrounding Tissue Appearance: Bright Red, Macerated and Edematous Surrounding Tissue Temp: Warm Drainage Amount: Copious Drainage Description: Serous and Yellow Drainage Odor: No Odor Right Lower Medial Leg: Bed Appearance: Beefy Red, Markesan and Yellow Percent of Wound Bed Granulated/Red: 50 Percent of Devitalized: 50 Length (cm): 13.5 Width (cm): 1.0 Depth (cm): 0.1 CM Sq: 13.500 Surrounding Tissue Appearance: Markesan, Macerated and Edematous Surrounding Tissue Temp: Warm Drainage Amount: Moderate Drainage Description: Serosanguineous Drainage Odor: No Odor Right Lower Lateral Leg: Bed Appearance: Markesan and Yellow Percent of Wound Bed Granulated/Red: [...] Saxena> 02/03/23 1036 [facility] Work Phone: 1(827) 194-172908-15-2023 Evaluation note* Encounter Date Diagnosis Assessment Notes Treatment Notes Treatment Clinical Notes Jan, Venous insufficiency (chronic) (peripheral) (ICD-10 - I87.2) [facility] Other 08-14-2023 Evaluation note* Encounter Date Diagnosis Assessment Notes Treatment Notes Treatment Clinical Notes Jan, Venous insufficiency (chronic) (peripheral) (ICD-10 - I87.2) Followed by vascular surgery, scheduled for procedure upcoming. We will f/u with [employer] to help get her SCDs that she was fitted for as this likely would help control swelling. Jan, Breast cancer screening (ICD-10 - Z12.39) Jan, CHUCKIE (obstructive sleep apnea) (ICD-10 - G47.33) Rx written for new mask and supplies. Jan, Need for pneumococca l 20-valent conjugate vaccination (ICD-10 - Z23) [facility] Other 08-01-2023 Evaluation note* Encounter Date Diagnosis Assessment Notes Treatment Notes Treatment Clinical Notes Jan, Venous insufficiency (chronic) (peripheral) (ICD-10 - I87.2) [facility] Other 07-24-2023 Evaluation note* Encounter Date Diagnosis [...] leg with unspecified severity (ICD-10 - L97.929) [facility] Other 12-30-2021 Evaluation note* Encounter Date Diagnosis [...] Patient care instructions given in writting by [facility] Home document [facility] Other Evaluation noteNo assessment information available [facility] [...] chronic [facility] Work Phone: Evaluation noteNo InformationNorth [employer] Other Evaluation note* Diagnosis Onset Date Resolution [...] Lymphedema chronic ALFREDO (acute kidney injury) [place] Bilateral leg pain acute Bilateral lower leg cellulitis acute Cellulitis acute Hyponatremia acute Metabolic acidosis acute Ulcer of left lower leg acut e Ulcer of right leg acute UTI (urinary tract infection) acute Inflammation chronic Lymphedema chronic [facility] Work Phone: Evaluation note* Diagnosis Onset Date Resolution Status Cellulitis of left leg acute Ulcer of right leg acute Leg ulcer, left chronic Lymphedema chronic Acute respiratory acidosis a cute ALFREDO (acute kidney injury) [place] Bilateral lower leg cellulitis acute Cellulitis acute CHF (congestive heart failure) acute Elevated liver enzymes acute Hypokalemia acute Hyponatremia acute Hypophosphatemia acute Hypoxia acute Infected wound acute Metabolic acidosis acute Superficial vein thrombosis acute Ulcer of left lower leg acut e Ulcer of right leg acute Inflammation chronic Lymphedema chronic Obese chronic [facility] Work Phone: [facility] general Narrative - Reported* Type Description Date Medical History CHUCKIE Medical History varicose veins Surgical History No know Surgical history Hospitalization History elevated BS, cellulitis [facility] Other [facility] Narrative - Reported* Type Description Date Medical History CHUCKIE Medical History varicose veins Medical History cellulitis Medical History lymphedema Surgical History No know Surgical history Hospitalization History elevated BS, cellulitis [facility] Other [facility] Narrative - Reported* Type Description Date Medical History CHUCKIE Medical History varicose veins Medical History cellulitis Medical History lymphedema Surgical History No Surgical history information Hospitalization History see above Hospitalization History BLE--cellulitis, lymphed ace [facility] Other Hospital Discharge instructions Additional Instructions Have [...] section and content) DATE CREATED AUTHOR 12/02/2017 [facility] DATE CREATED AUTHOR AUTHOR'S ORGANIZ ATION 07/15/2023 [facility] REASON FOR VISIT (unrecogniz ed section and content) #12 JACKSON MALIBU, LOSS OF TAS TE, CONGESTION, FEVER, COUGHFR-ERNo InformationREFILLNo InformationEST PCPNo Informationchancre sore apptDISCUSS [id number] up from rehab needs to go over [...] Primary Care Provider Active Sarah Davey , [facility] Emergency Provider Active Neeraj Farrell MD Admit Provider, Attending Provider Active Team Status: Inactive Member Role Status Dates Abimbola Bran , DO Primary Care Provider Active Sarah Davey [facility] Emergency Provider Active Neeraj Farrell MD [...] BE BASED ON THE PRIMARY CLINICAL RECORDS. [facility] [employer] [facility]. provides no warranty or guarantee of the accuracy or completeness of information in this document.
== END 2023-11-03 09:01 | disposition home or self-care (01) ==
LOC: WC 11-04 08:39
PROVIDERS: PCP Radiology Diagnostic Radiology; Visit Provider Podiatrist Foot & Ankle Surgery
DX: I87.312 Chronic venous hypertension (idiopathic) with ulcer of left lower extremity (principal); L97.822 Non-pressure chronic ulcer of other part of left lower leg with fat layer exposed; I87.311 Chronic venous hypertension (idiopathic) with ulcer of right lower extremity; L97.812 Non-pressure chronic ulcer of other part of right lower leg with fat layer exposed
CPT/HCPCS: G0463

== ENCOUNTER 2023-11-05 16:08 | Outpatient (OUT) | payer MEDICARE, OTHER, SELFPAY | END 2023-11-05 16:09 | disposition home or self-care (01) | LOC: WC 16:09 | PROVIDERS: PCP Radiology Diagnostic Radiology; Visit Provider Physician Assistant | DX: I87.313 Chronic venous hypertension (idiopathic) with ulcer of bilateral lower extremity (principal); L97.822 Non-pressure chronic ulcer of other part of left lower leg with fat layer exposed; L97.812 Non-pressure chronic ulcer of other part of right lower leg with fat layer exposed | CPT/HCPCS: G0463 ==

== ENCOUNTER 2023-11-09 16:14 | Outpatient (OUT) | payer MEDICARE, OTHER, SELFPAY ==
--- OUTSIDE RECORDS SUMMARY | 2023-11-09 16:39 | XMS_ITS | CCD ---
Author Organization [facility] Care Team Providers Care Vice President Of Business Development Name Role Phone CARL TY Unavailable Unavailable AILEEN PEPE ANDREW Unavailable Unavailab leonard Motta Shayla Unavailable NO FAMILY, PHYSICIAN Primary Care Provider Unava ilable ANTHONY Theodore Emergency Provider ANTHONY Theodore Attending Provider BRITNEY Jimenez Attending Provider DO Reji Rangel Attending Provider [phone] DO Jhonatan Crowell Emergency Provider DO Jhonatan Crowell Attending Provider [phone] DO Jhonatan Crowell Attending Provider [phone] BRITNEY Leon Attending Provider DO Reji Rangel Attending Provider [phone] MD Laith Warner Emergency Provider DO Reji Rangel Attending Provider [phone] MD Laith Warner Attending Provider [phone] DO Chon Valdez Emergency Provider DO Abimbola Bran Primary Care Provider Abimbola Bran Unavailable Laith Carlson Unavailable NO FAMILY, PHYSICIAN Primary Care Provider Unava ilable DO Reji Rangel Attending Provider MD Laith Carlson Attending Provider MD Albino Saxena Attending Provider NO FAMILY, PHYSICIAN Primary Care Provider Unava ilable Yina DO Abimbola A Primary Care Provider [phone] DO Riley Crowelled Efrain Emergency Provider [facility], [facility] Sarah E Emergency Provider MD Neeraj Farrell Admit Provider MD Neeraj Farrell Attending Provider [phone] Yina DO Abimbola A Primary Care Provider MD Laith Carlson Attending Provider MD Albino Saxena Attending Provider Mervat DO Jhonatan Zuniga [facility] Provider MD Neeraj Farrell Admit Provider MD Selvin Bey Attending Provider [phone] MD Laith Carlson Other Provider Bran, Abimobla A Primary Care Unavailable Albino Saxena Attending [...] Orally every 8 hrs for 30 days [facility] [place] Active acetaminophen 325 mg / oxyCODONE [...] Laxative Start: 04-17-2023 Bisacodyl Active 10 MG MO Daily 0 April 17, 2023 12:00am brompheniramine maleate 0.4 mg/ml / dextromethorphan hydrobromide 2 mg/ml / pseudoephedrine hydrochloride 6 mg/ml oral solution (2 sources) alpha-Adrenergic Agonist, Uncompetitive W-gqnnxt-K-aspartat e Receptor Antagonist, Sigma-1 Agonist Start: 06-06-2021 [...] capsule with food Orally Once a day [facility] [place], Active Start: 04-16-2023 take 100 mg [...] MG/0.4ML 0.3 mL Injection Once a day [facility] Apr, Active ertapenem 1000 mg injection (2 [...] Orally every 4 hrs for 14 days [facility] [place], Active Start: 04-16-2023 take 1 tablet by estuardo th every four hours oxyCODONE HCl 5 MG 1 tablet as needed Orally every 4 hrs [facility] Apr, Active Start: 04-16-2023 take 2.5 mg by mouth every four hours Oxycodone Active 2.5 MG PO Every 4 hours 03 12April 16, 2023 polyethylene glycol 3350 15206 mg powder for oral solution (1 source) Osmotic Laxative Start: 04-17-2023 Polyethylene Glycol 3350 (Healthylax) 17 gram Powder In Packet Active 17 GM PO Daily April 17, 2023 9:43am pregabalin 75 mg oral capsule (6 sources) Start: 06-09-2023 take 1 capsule by mouth every eight hours Pregabalin 75 MG 1 capsule Orally three times a day for 90 days [facility] Jun, Active Start: 04-16-2023 take 1 capsule by mo ut every twelve hours Pregabalin 50 MG 1 capsule Orally Twice a day [facility] Apr, Active Sennosides (Senokot) 8.6 mg tablet [...] Start: 02-24-2023 take 1 capsule by mo [facility] every eight hours Gabapentin 300 [...] aPTT Coag (PPP) [Time] 32.5 s 25.1-36.5 [facility] Comment on above: A hematocrit value g reater than 55% may lead to inaccurate results in coagulation testing. Patients having hematocrit values >55% require a special collection tube for coagulation studies. Please contact the laboratory at [phone] for redraw instructions. Alanine aminotransferase [En zymatic activity/volume] in Serum or PlasmaOrdered By: Selvin Bey on 04-15-2023 ALT [Catalytic activity/Vol] 118 U/L 7-52 [facility] Albumin [Mass/volume] in Ser um or Plasma by Bromocresol green (BCG) dye binding methoOrdered By: Selvin Bey on 04-15-2023 Albumin BCG dye [Mass/Vol] 3.3 g/dL 3.5-5.7 [facility] Alkaline phosphatase [Enzyma tic activity/volume] in Serum or PlasmaOrdered By: Selvin Bey on 04-15-2023 ALP [Catalytic activity/Vol] 77 U/L 34-104 [facility] Aspartate aminotransferase [ Enzymatic activity/volume] in Serum or PlasmaOrdered By: Selvin Bey on 04-15-2023 AST [Catalytic activity/Vol] 48 U/L 13-39 [facility] Bilirubin.direct [Mass/volum e] in Serum or PlasmaOrdered By: Selvin Bey on 04-15-2023 Bilirubin.direct [Mass/Vol] 0.10 mg/dL 0.03-0.18 [facility] Bilirubin.total [Mass/volume ] in Serum or PlasmaOrdered By: Selvin Bey on 04-15-2023 Bilirubin [Mass/Vol] 0.5 mg/dL 0.3-1.0 [facility] C reactive protein [Mass/vol ume] in Serum or PlasmaOrdered By: Laith Carlson on 04-15-2023 CRP [Mass/Vol] 3.1 mg/dL 0.0-0.5 [facility] C-Reactive Proteinon 023 C-Reactive Protein 3.1 mg/dL High 0.0-0.5 [facility] Comment on above: Result Comment: PERF ORMED BY: [place] [address] PATHOLOGIST VOLUNTEER RECRUITER IAN ACE M.D. Performed By: #### C UBLD, CMP, CBC #### [facility] [address] [place] [address] Globulin Calc (S) [Mass/Vol] Ordered By: Selvin Bey on 04-15-2023 Globulin (S) [Mass/Vol] 4.3 g/dL [facility] Hepatic Panelon 04-15-2023 Albumin [Mass/Vol] 3.3 g/dL Low 3.5-5.7 [facility] Comment on above: Performed By: #### C UBLD, CMP, CBC #### [facility] [address] Albumin/Globulin [Mass ratio] 0.8 {ratio} Normal [facility] Comment on above: Performed By: #### C UBLD, CMP, CBC #### [facility] [address] ALP [Catalytic activity/Vol] 77 U/L Normal 34-104 [facility] Comment on above: Performed By: #### C UBLD, CMP, CBC #### [facility] [address] [place] [id number] [facility] ALT [Catalytic activity/Vol] 118 U/L High 7-52 [facility] Comment on above: Performed By: #### C UBLD, CMP, CBC #### [facility] [address] Aspartate Amino Transferase Normal 13-39 [facility] Comment on above: Result Comment: Spec imen hemolyzed, redraw requested Performed By: #### C UBLD, CMP, CBC #### [facility] [address] Bilirubin [Mass/Vol] 0.5 mg/dL Normal 0.3-1.0 [facility] Comment on above: Performed By: #### C UBLD, CMP, CBC #### [facility] [address] [place] [address] [place] Bilirubin,Direct Normal 0.03-0.18 [facility] Comment on above: Result Comment: Spec imen hemolyzed, redraw requested Performed By: #### C UBLD, CMP, CBC #### [facility] [address] [place] [address] [place] Bilirubin,Indirect Not performed Normal [facility] Comment on above: Performed By: #### C UBLD, CMP, CBC #### [facility] [address] [place] [address] [place] Globulin (S) [Mass/Vol] 4.3 g/dL Normal [facility] Comment on above: Performed By: #### C UBLD, CMP, CBC #### [facility] [address] Protein [Mass/Vol] 7.6 g/dL Normal 6.4-8.9 [facility] Comment on above: Performed By: #### C ALEXX RAND, CBC #### [facility] [address] [place] [id number] [place] INR in Platelet poor plasma by Coagulation assayOrdered By: Laith Carlson on 04-15-2023 INR Coag (PPP) [Relative time] 1.0 {INR} [facility] Comment on above: INR Therapeutic [...] Coag (Bld) [Time] 32.5 s Normal 25.1-36.5 [facility] Comment on above: Result Comment: A he matocrit value greater than 55% may lead to inaccurate results in coagulation testing. Patients having hematocrit values >55% require a special collection tube for coagulation studies. Please contact the laboratory at [phone] for redraw instructions. PERFORMED BY: [place] [address] PATHOLOGIST VOLUNTEER RECRUITER IAN ACE M.D. Performed By: #### C ALEXX RAND, CBC #### [facility] [address] [place] [address] [place] Phosphate [Mass/volume] in S marivel or PlasmaOrdered By: Selvin Bey on 04-15-2023 Phosphate [Mass/Vol] 3.2 mg/dL 2.5-4.5 [facility] Phosphoruson 04-15-2023 Phosphate [Mass/Vol] 3.2 mg/dL Normal 2.5-4.5 [facility] Comment on above: Result Comment: PERF ORMED BY: [place] [address] PATHOLOGIST VOLUNTEER RECRUITER IAN ACE M.D. Performed By: #### C UBPREMA, CMP, CBC #### [facility] [address] [place] [address] [facility] Protein [Mass/volume] in Ser um or PlasmaOrdered By: Selvin Bey on 04-15-2023 Protein [Mass/Vol] 7.6 g/dL 6.4-8.9 [facility] Prothrombin Time INRon 04-15 INR Coag (PPP) [Relative time] 1.0 {INR} Normal [facility] Comment on above: Result Comment: [...] By: #### C UBLD, CMP, CBC #### [facility] [address] [place] [address] [facility] PT Coag (PPP) [Time] 11.9 s Normal 9.0-12.9 [facility] Comment on above: Result Comment: A he matocrit value greater than 55% may lead to inaccurate results in coagulation testing. Patients having hematocrit values >55% require a special collection tube for coagulation studies. Please contact the laboratory at [phone] for redraw instructions. Performed By: #### C UBLD, CMP, CBC #### [facility] [address] [place] [address] [place] Prothrombin time (PT)Ordered By: Laith Carlson on 04-15-2023 PT Coag (PPP) [Time] 11.9 s 9.0-12.9 [facility] Comment on above: A hematocrit value g reater than 55% may lead to inaccurate results in coagulation testing. Patients having hematocrit values >55% require a special collection tube for coagulation studies. Please contact the laboratory at [phone] for redraw instructions. Redraw Renaldo 04-15-2023 AST [Catalytic activity/Vol] 48 U/L High 13-39 [facility] Comment on above: Result Comment: PERF ORMED BY: [address] [address] PATHOLOGIST VOLUNTEER RECRUITER IAN ACE M.D. Performed By: #### C UBLD, CMP, CBC #### [facility] [address] Redraw Bilirubin,Directon Redraw Bilirubin,Direct 0.10 mg/dL Normal 0.03-0.18 [facility] Comment on above: Performed By: #### R EDRAW AST, REDRAW DBIL #### [facility] [address] [place] [address] Serum or plasma albumin/glob ulin mass ratioOrdered By: Selvin Bey on 04-15-2023 Albumin/Globulin [Mass ratio] 0.8 {ratio} [facility] Serum or plasma non-glucuron idated bilirubin measurement (mass/volume)Ordered By: Selvin Bey on 04-15-2023 Bilirubin.indirect [Mass/Vol] TNP [facility] Comment on above: Test not performed US abdomen limitedon 023 US abdomen limited [facility] [place] [address] [place] [address] Ultrasound Report Signed Patient: [place] Cesar MR#: [id number] : 1955 Acct:[id number] Age/Sex: 67 / F ADM Date: 04/10/23 Loc: Room: [address] [place] [address] Type: ADM IN Attending Dr: Selvin Bey [...] Padmini Bethea M.D.04/15/2023 10:01 AM Dictation Location: [place] [address] Tech: Elyse Hart Transcribed By: MARIA VICTORIA 04/15/23 1001 Dictated By: Padmini Bethea MD 04/15/23 0959 Signed By: 04/15/23 1001 Normal [facility] Anisocytosis LM Ql (Bld)Orde red By: Selvin Bey on 04-14-2023 Anisocytosis Ql (Bld) Slight [facility] Band form neutrophils/100 WB C Manual cnt (Bld)Ordered By: Selvin Bey on 04-14-2023 Band form neutrophils/100 WBC (Bld) 2 % 0-5 [facility] Basophils Auto (Bld) [#/Vol] Ordered By: Selvin Bey on 04-14-2023 Basophils (Bld) [#/Vol] N/A [facility] Basophils/100 WBC Auto (Bld) Ordered By: Selvin Bey on 04-14-2023 Basophils/100 WBC (Bld) N/A [facility] Basophils/100 WBC Manual cnt (Bld)Ordered By: Selvin Bey on 04-14-2023 Basophils/100 WBC (Bld) 1 % 0-2 [facility] Calcium [Mass/volume] in Ser um or PlasmaOrdered By: Selvin Bey on 04-14-2023 Calcium [Mass/Vol] 9.4 mg/dL 8.6-10.3 [facility] Carbon dioxide, total [Moles /volume] in Serum or PlasmaOrdered By: Selvin Bey on 04-14-2023 CO2 [Moles/Vol] 20.5 mmol/L 21.0-31.0 [facility] Chloride [Moles/volume] in S marivel or PlasmaOrdered By: Selvin Bey on 04-14-2023 Chloride [Moles/Vol] 102 mmol/L 98-107 [facility] Comprehensive Metabolic Pane jeremy 04-14-2023 Albumin [Mass/Vol] 3.3 g/dL Low 3.5-5.7 [facility] Comment on above: Performed By: #### C UBLD, CMP, CBC #### [facility] [address] Albumin/Globulin [Mass ratio] 0.8 {ratio} Normal [facility] Comment on above: Performed By: #### C UBLD, CMP, CBC #### [facility] [address] ALP [Catalytic activity/Vol] 82 U/L Normal 34-104 [facility] Comment on above: Performed By: #### C UBLD, CMP, CBC #### [facility] [address] ALT [Catalytic activity/Vol] 150 U/L High 7-52 [facility] Comment on above: Performed By: #### C UBLD, CMP, CBC #### [address] Anion gap [Moles/Vol] 11.3 mmol/L Normal 6.0-15.0 [facility] Comment on above: Performed By: #### C UBLD, CMP, CBC #### [address] AST [Catalytic activity/Vol] 79 U/L High 13-39 [facility] Comment on above: Performed By: #### C UBLD, CMP, CBC #### [facility] [address] Bilirubin [Mass/Vol] 0.4 mg/dL Normal 0.3-1.0 [facility] Comment on above: Performed By: #### C UBLD, CMP, CBC #### [facility] [address] [place] [address] Calcium [Mass/Vol] 9.4 mg/dL Normal 8.6-10.3 [facility] Comment on above: Performed By: #### C UBLD, CMP, CBC #### [facility] [address] [place] [address] [place] Chloride [Moles/Vol] 102 mmol/L Normal 98-107 [facility] Comment on above: Performed By: #### C ALEXX RAND, CBC #### [facility] [address] CO2 [Moles/Vol] 20.5 mmol/L Low 21.0-31.0 [facility] Comment on above: Performed By: #### C UBPREMA CMP, CBC #### [address] Creatinine [Mass/Vol] 0.86 mg/dL Normal 0.60-1.20 [facility] Comment on above: Performed By: #### C ALEXX RAND, CBC #### [address] Creatinine Clr Calc Pharmacy 87.48 [facility] Comment on above: Performed By: #### C ALEXX RAND, CBC #### [address] GFR/1.73 sq M.predicted MDRD (S/P/Bld) [Vol rate/Area] mL/min/{1.73_m2} [facility] Comment on above: Performed By: #### C ALEXX RAND, CBC #### [address] Globulin (S) [Mass/Vol] 4.0 g/dL [facility] Comment on above: Performed By: #### C UBALEXX LLOYD, CBC #### [address] Glucose [Mass/Vol] 108 mg/dL High 70-100 [facility] Comment on above: Result Comment: [place] Glucose Reference Range is dependent on time and content of last meal. Glucose of more than 200 mg/dL in a nonstressed, ambulatory subject supports the diagnosis of Diabetes Mellitus. ADA recommended reference range Performed By: #### C UBLD CMP, CBC #### [address] Potassium [Moles/Vol] 3.8 mmol/L Normal 3.5-5.1 [facility] Comment on above: Performed By: #### C UBLD, CMP, CBC #### [facility] [address] Protein [Mass/Vol] 7.3 g/dL Normal 6.4-8.9 [facility] Comment on above: Performed By: #### C UBLD, CMP, CBC #### [facility] [address] [place] [address] [place] Sodium [Moles/Vol] 130 mmol/L Low 136-145 [facility] Comment on above: Performed By: #### C UBLD, CMP, CBC #### [facility] [address] Urea nitrogen [Mass/Vol] 37 mg/dL High 7-25 [facility] Comment on above: Performed By: #### C UBLD, CMP, CBC #### [facility] [address] [place] [address] [place] Creatinine [Mass/volume] in Serum or PlasmaOrdered By: Selvin Bey on 04-14-2023 Creatinine [Mass/Vol] 0.86 mg/dL 0.60-1.20 [facility] Diff and CBCon 04-14-2023 Anisocytosis Ql (Bld) Slight Normal [facility] Comment on above: Performed By: #### C UBLD, CMP, CBC #### [facility] [address] [place] [address] [place] Band form neutrophils/100 WBC (Bld) 2 % Normal 0-5 [facility] Comment on above: Performed By: #### C UBLD, CMP, CBC #### [facility] [address] [place], [place] [id number] [place] Basophils/100 WBC (Bld) 1 % Normal 0-2 [facility] Comment on above: Performed By: #### C UBLD, CMP, CBC #### [facility] [address] [place] [address] [place] Eosinophils/100 WBC (Bld) 3 % Normal 1-3 [facility] Comment on above: Performed By: #### C UBLD, CMP, CBC #### [facility] [address] Erythrocyte distribution width (RBC) [Ratio] 16.9 % High 11.9-15.3 [facility] Comment on above: Performed By: #### C UBLD, CMP, CBC #### [facility] [address] Giant Platelet Tally 2 /100{WBC} Normal [facility] Comment on above: Performed By: #### C UBLD, CMP, CBC #### [address] Hematocrit (Bld) [Volume fraction] 36.0 % Normal 34.0-46.4 [facility] Comment on above: Performed By: #### C UBLD, CMP, CBC #### [address] Hemoglobin (Bld) [Mass/Vol] 11.5 g/dL Low 11.8-15.4 [facility] Comment on above: Performed By: #### C UBLD, CMP, CBC #### [address] Lymphocytes/100 WBC (Bld) 13 % Low 18-42 [facility] Comment on above: Performed By: #### C UBLD, CMP, CBC #### [address] MCH (RBC) [Entitic mass] 26.0 pg Normal 24.7-34.3 [facility] Comment on above: Performed By: #### C UBLD, CMP, CBC #### [address] MCV (RBC) [Entitic vol] 81.0 fL Normal 80-100 [facility] Comment on above: Performed By: #### C UBLD, CMP, CBC #### [address] Mean Corpuscular HGB Conc 32.1 g/dL Normal 32.0-35.0 [facility] Comment on above: Performed By: #### C UBLD, CMP, CBC #### [place] [address] [place] Metamyelocytes 3 % High 0-0 [facility] Comment on above: Performed By: #### C UBLD, CMP, CBC #### [place] [address] [place] Microcytosis Slight Normal [facility] Comment on above: Performed By: #### C UBLD, CMP, CBC #### [place] [address] [place] Monocytes/100 WBC (Bld) 8 % Normal 2-11 [facility] Comment on above: Performed By: #### C UBLD, CMP, CBC #### [address] Nucleated Red Blood Cell 2 /100{WBC} High 0-0 [facility] Comment on above: Performed By: #### C UBLD, CMP, CBC #### [address] Platelet Estimate Increased Normal Normal [facility] Comment on above: Performed By: #### C UBLD, CMP, CBC #### [place] [address] [place] Platelet mean volume (Bld) [Entitic vol] 7.0 fL Normal 6.3-10.7 [facility] Comment on above: Result Comment: PERF ORMED BY: [place] [address] PATHOLOGIST VOLUNTEER RECRUITER IAN ACE M.D. Performed By: #### C UBLD, CMP, CBC #### [address] Platelet Morphology Normal Normal Normal [facility] Comment on above: Result Comment: PERF ORMED BY: [place] [address] PATHOLOGIST VOLUNTEER RECRUITER IAN ACE M.D. Performed By: #### C UBLD, CMP, CBC #### [place] [id number] [place] Platelets (Bld) [#/Vol] 457 10*3/uL High 150-450 [facility] Comment on above: Performed By: #### C UBLD, CMP, CBC #### [address] Polychromasia Slight Normal [facility] Comment on above: Performed By: #### C UBLD, CMP, CBC #### [facility] [address] [place] [address] RBC (Bld) [#/Vol] 4.44 10*6/uL Normal 3.60-5.00 [facility] Comment on above: Performed By: #### C UBLD, CMP, CBC #### [address] Segmented neutrophils/100 WBC (Bld) 71 % High 50-70 [facility] Comment on above: Performed By: #### C UBLD, CMP, CBC #### [address] WBC (Bld) [#/Vol] 6.5 10*3/uL Normal 3.8-11.6 [facility] Comment on above: Performed By: #### C UBLD, CMP, CBC #### [address] Eosinophils Auto (Bld) [#/Vo l]Ordered By: Selvin Bey on 04-14-2023 Eosinophils (Bld) [#/Vol] N/A [facility] Eosinophils/100 WBC Auto (Bl d)Ordered By: Selvin Bey on 04-14-2023 Eosinophils/100 WBC (Bld) N/A [facility] Eosinophils/100 WBC Manual c nt (Bld)Ordered By: Selvin Bey on 04-14-2023 Eosinophils/100 WBC (Bld) 3 % 1-3 [facility] Erythrocyte distribution wid th Auto (RBC) [Ratio]Ordered By: Selvin Bey on 04-14-2023 Erythrocyte distribution width (RBC) [Ratio] 16.9 % 11.9-15.3 [facility] Giant platelets/100 leukocyt es [Ratio] in Blood by Manual countOrdered By: Selvin Bey on 04-14-2023 Giant platelets/100 WBC Manual cnt (Bld) [Ratio] 2 /100{WBC} [facility] Glucose [Mass/volume] in Ser um or PlasmaOrdered By: Selvin Bey on 04-14-2023 Glucose [Mass/Vol] 108 mg/dL 70-100 [facility] Comment on above: ADA recommended refe rence rangeRandom Glucose Reference Range is dependent on time and content of last meal. Glucose of more than 200 mg/dL in a nonstressed, ambulatory subject supports the diagnosis of Diabetes Mellitus. Hematocrit Auto (Bld) [Volum e fraction]Ordered By: Selvin Bey on 04-14-2023 Hematocrit (Bld) [Volume fraction] 36.0 % 34.0-46.4 [facility] Hemoglobin [Mass/volume] in BloodOrdered By: Selvin Bey on 04-14-2023 Hemoglobin (Bld) [Mass/Vol] 11.5 g/dL 11.8-15.4 [facility] Hepatitis Acute Panelon 11-0 HBsAg Screen Negative Normal Negative [facility] Comment on above: Performed By: #### L ACTIC, CMP, CBC #### [facility] [address] [place] [address] Hepatitis A Antibody IgM Negative Normal Negative [facility] Comment on above: Performed By: #### L ACTIC, CMP, CBC #### [facility] [address] [place] [address] Hepatitis B Core Antibody IgM Negative Normal Negative [facility] Comment on above: Performed By: #### L ACTIC, CMP, CBC #### [facility] [address] [place] [address] Hepatitis C Virus Antibody Non-Reactive Normal Non Reactive [facility] Comment on above: Performed By: #### L ACTIC, CMP, CBC #### [facility] [address] [place] [address] Interpretation Hepatitis C Normal . [facility] Comment on above: Result Comment: Not infected with HCV unless early or acute infection is suspected (which may be delayed in an immunocompromised individual), or other evidence exists to indicate HCV infection. Performed at: - [facility] [id number] Delivery Driver/Customer Service: Mohsen Mccarthy PhD, Phone: [phone] PERFORMED BY: [place] [address] PATHOLOGIST VOLUNTEER RECRUITER IAN ACE M.D. Performed By: #### L ACTIC, CMP, CBC #### [address] Hepatitis B virus surface Ag [Presence] in Serum or Plasma by ImmunoassayOrdered By: Selvin Bey on 04-14-2023 HBV surface Ag IA Ql Negative Negative [facility] Hepatitis C virus IgG Ab [Pr esence] in Serum or Plasma by ImmunoassayOrdered By: Selvin Bey on 04-14-2023 HCV IgG IA Ql Non-Reactive Non Reactive [facility] Hepatitis C virus RNA [Units /volume] (viral load) in Serum or Plasma by JUJU with probOrdered By: Selvin Bey on 04-14-2023 HCV RNA JUJU+probe Qn N/A [facility] Hepatitis C virus RNA [log u nits/volume] (viral load) in Serum or Plasma by JUJU withOrdered By: Selvin Bey on 04-14-2023 HCV RNA JUJU+probe [Log units/Vol] N/A [facility] Leukocytes [#/volume] correc julia for nucleated erythrocytes in Blood by Automated counOrdered By: Selvin Bey on 04-14-2023 WBC corrected for nucl RBC Auto (Bld) [#/Vol] 6.5 10*3/uL 3.8-11.6 [facility] Lymphocytes Auto (Bld) [#/Vo l]Ordered By: Selvin Bey on 04-14-2023 Lymphocytes (Bld) [#/Vol] N/A [facility] Lymphocytes/100 WBC Auto (Bl d)Ordered By: Selvin Bey on 04-14-2023 Lymphocytes/100 WBC (Bld) N/A [facility] Lymphocytes/100 WBC Manual c nt (Bld)Ordered By: Selvin Bey on 04-14-2023 Lymphocytes/100 WBC (Bld) 13 % 18-42 [facility] MCH Auto (RBC) [Entitic mass ]Ordered By: Selvin Bey on 04-14-2023 MCH (RBC) [Entitic mass] 26.0 pg 24.7-34.3 [facility] MCHC Auto (RBC) [Mass/Vol]Or dered By: Selvin Bey on 04-14-2023 MCHC (RBC) [Mass/Vol] 32.1 g/dL 32.0-35.0 [facility] MCV Auto (RBC) [Entitic vol] Ordered By: Selvin Bey on 04-14-2023 MCV (RBC) [Entitic vol] 81.0 fL 80-100 [facility] Magnesiumon 04-14-2023 Magnesium [Mass/Vol] 2.3 mg/dL Normal 1.9-2.7 [facility] Comment on above: Result Comment: PERF ORMED BY: [place] [address] PATHOLOGIST VOLUNTEER RECRUITER IAN ACE M.D. Performed By: #### C UBLD, CMP, CBC #### [address] Magnesium [Mass/volume] in S marivel or PlasmaOrdered By: Selvin Bey on 04-14-2023 Magnesium [Mass/Vol] 2.3 mg/dL 1.9-2.7 [facility] Metamyelocytes/100 WBC Manua l cnt (Bld)Ordered By: Selvin Bey on 04-14-2023 Metamyelocytes/100 WBC (Bld) 3 % 0-0 [facility] Microcytes LM Ql (Bld)Ordere d By: Selvin Bey on 04-14-2023 Microcytes Ql (Bld) Slight [facility] Monocytes Auto (Bld) [#/Vol] Ordered By: Selvin Bey on 04-14-2023 Monocytes (Bld) [#/Vol] N/A [facility] Monocytes/100 WBC Auto (Bld) Ordered By: Selvin Bey on 04-14-2023 Monocytes/100 WBC (Bld) N/A [facility] Monocytes/100 WBC Manual cnt (Bld)Ordered By: Selvin Bey on 04-14-2023 Monocytes/100 WBC (Bld) 8 % 2- [facility] Neutrophils Auto (Bld) [#/Vo l]Ordered By: Selvin Bey on 04-14-2023 Neutrophils (Bld) [#/Vol] N/A [facility] Neutrophils/100 WBC Auto (Bl d)Ordered By: Selvin Bey on 04-14-2023 Neutrophils/100 WBC (Bld) N/A [facility] No Panel InformationOrdered By: Selvin Bey on 04-14-2023 Hepatitis A IgM Antibody Negative Negative [facility] Hepatitis B Core IgM Antibody Negative Negative [facility] Hepatitis C Interpretation See comment . [facility] Comment on above: Not infected with HC V unless early or acute infection issuspected (which may be delayed in an immunocompromisedindividual), or other evidence exists to indicate HCVinfection.Performed at: [employer] [facility] [address] Director: Mohsen Mccarthy PhD, Phone: [phone] Estimated GFR (CKD-EPI) > 60.0 mL/Min [facility] Creatinine Clearance (Chem 87.48 [facility] Nucleated RBC/100 WBC Manual cnt (Bld) [Ratio]Ordered By: Selvin Bey on 04-14-2023 Nucleated RBC/100 WBC (Bld) [Ratio] 2 /100{WBC} 0-0 [facility] Nucleated erythrocytes [Pres ence] in Blood by Automated countOrdered By: Selvin Bey on 04-14-2023 Nucleated RBC Auto Ql (Bld) N/A [facility] Phosphoruson 04-14-2023 Phosphate [Mass/Vol] 2.6 mg/dL Low 3.7-7.2 [facility] Comment on above: Performed By: #### C UBLD, CMP, CBC #### [facility] [address] [place] [address] Platelet adequacy [Presence] in Blood by Light microscopyOrdered By: Selvin Bey on 04-14-2023 Platelets LM Ql (Bld) Increased Normal [facility] Platelet mean volume Auto (B ld) [Entitic vol]Ordered By: Selvin Bey on 04-14-2023 Platelet mean volume (Bld) [Entitic vol] 7.0 fL 6.3-10.7 [facility] Platelet morphology finding [Identifier] in BloodOrdered By: Selvin Bey on 04-14-2023 Platelet morphology finding Nom (Bld) Normal Normal [facility] Platelets Auto (Bld) [#/Vol] Ordered By: Selvin Bey on 04-14-2023 Platelets (Bld) [#/Vol] 457 10*3/uL 150-450 [facility] Polychromasia [Presence] in Blood by Light microscopyOrdered By: Selvin Bey on 04-14-2023 Polychromasia LM Ql (Bld) Slight [facility] Potassium [Moles/volume] in Serum or PlasmaOrdered By: Selvin Bey on 04-14-2023 Potassium [Moles/Vol] 3.8 mmol/L 3.5-5.1 [facility] RBC Auto (Bld) [#/Vol]Ordere d By: Selvin Bey on 04-14-2023 RBC (Bld) [#/Vol] 4.44 10*6/uL 3.60-5.00 [facility] RBC morphologyOrdered By: Ra taco Bey on 04-14-2023 RBC morphology finding Nom (Bld) N/A [facility] Segmented neutrophils/100 WB C Manual cnt (Bld)Ordered By: Selvin Bey on 04-14-2023 Segmented neutrophils/100 WBC (Bld) 71 % 50-70 [facility] Serum or plasma anion gap de terminationOrdered By: Selvin Bey on 04-14-2023 Anion gap [Moles/Vol] 11.3 mmol/L 6.0-15.0 [facility] Sodium [Moles/volume] in Ser um or PlasmaOrdered By: Selvin Bey on 04-14-2023 Sodium [Moles/Vol] 130 mmol/L 136-145 [facility] US venous duplex LE BIon US venous duplex LE BI [facility] [place] [address] Ultrasound Report Signed Patient: [place] Cesar MR#: [id number] : 1955 Acct:[id number] Age/Sex: 67 / F ADM Date: 04/10/23 Loc: Room: [address] [place] [address] Type: ADM IN Attending Dr: Selvin Bey MD Ordering Provider: Selvin Bey MD Date of Service: 04/13/23 US/US venous duplex LE BI: Edema. r/o dvt Copies to: Selvin Bye MD BILATERAL LOWER EXTREMITY VENOUS DUPLEX INDICATION: [...] M.D.04/14/2023 11:07 AM Dictation Location: [place] [address] Tech: Hermelinda Knox Transcribed By: MARIA VICTORIA 04/14/23 110 Dictated By: Du Zaragoza MD 04/14/23 1106 Signed By: 04/14/23 110 Normal [facility] Urea nitrogen [Mass/volume] in Serum or PlasmaOrdered By: Selvin Bey on 04-14-2023 Urea nitrogen [Mass/Vol] 37 mg/dL 7 [facility] Vancomycin,Troughon 11-07-20 23 Vancomycin,Trough 16.7 ug/mL Normal 10.0-20.0 [facility] Comment on above: Result Comment: Last dose: - PERFORMED BY: [place] [address] PATHOLOGIST VOLUNTEER RECRUITER IAN ACE M.D. Performed By: #### C UBLD, CMP, CBC #### [address] WBC Auto (Bld) [#/Vol]Ordere d By: Selvin Bey on 04-14-2023 WBC (Bld) [#/Vol] 6.5 10*3/uL 3.8-11.6 [facility] Basic Metabolic Panelon Anion gap [Moles/Vol] 11.7 mmol/L Normal 6.0-15.0 [facility] Comment on above: Performed By: #### L ACTIC, CMP, CBC #### [address] Calcium [Mass/Vol] 8.9 mg/dL Normal 8.6-10.3 [facility] Comment on above: Performed By: #### L ACTIC, CMP, CBC #### [address] Chloride [Moles/Vol] 100 mmol/L Normal 98-107 [facility] Comment on above: Performed By: #### L ACTIC, CMP, CBC #### [facility] [address] [place] [address] CO2 [Moles/Vol] 20.7 mmol/L Low 21.0-31.0 [facility] Comment on above: Performed By: #### L ACTIC, CMP, CBC #### [facility] [address] [place] [address] Creatinine [Mass/Vol] 1.10 mg/dL Normal 0.60-1.20 [facility] Comment on above: Performed By: #### L ACTIC, CMP, CBC #### [place] [address] [place] Creatinine Clr Calc Pharmacy 68.40 [facility] Comment on above: Result Comment: PERF ORMED BY: [place] [address] PATHOLOGIST VOLUNTEER RECRUITER IAN ACE M.D. Performed By: #### L ACTPERCY CMP, CBC #### [facility] [address] [place] [address] [place] GFR/1.73 sq M.predicted MDRD (S/P/Bld) [Vol rate/Area] 55.418 mL/min/{1.73_m2} [facility] Comment on above: Performed By: #### L ACTALEXX GREER, CBC #### [address] Glucose [Mass/Vol] 132 mg/dL High 70-100 [facility] Comment on above: Result Comment: [place] Glucose Reference Range is dependent on time and content of last meal. Glucose of more than 200 mg/dL in a nonstressed, ambulatory subject supports the diagnosis of Diabetes Mellitus. ADA recommended reference range Performed By: #### L ACTPERCY CMP, CBC #### [address] Potassium [Moles/Vol] 3.4 mmol/L Low 3.5-5.1 [facility] Comment on above: Performed By: #### L VITOR CMP, CBC #### [facility] [address] [place] [address] [place] Sodium [Moles/Vol] 129 mmol/L Low 136-145 [facility] Comment on above: Performed By: #### L ACTPERCY CMP, CBC #### [facility] [address] [place] [address] [place] Urea nitrogen [Mass/Vol] 42 mg/dL High 7-25 [facility] Comment on above: Performed By: #### L ACTPERCY CMP, CBC #### [facility] [address] [place] [address] Ovalocyte detectionOrdered B y: Malorie Nathan on 04-13-2023 Ovalocytes LM Ql (Bld) Slight [facility] Platelets Large [Presence] i n Blood by Light microscopyOrdered By: Malorie Nathan on 04-13-2023 Platelets Large LM Ql (Bld) Slight [facility] Poikilocytosis [Presence] in Blood by Light microscopyOrdered By: Malorie Nathan on 04-13-2023 Poikilocytosis LM Ql (Bld) Slight [facility] Scan and CBCon 04-13-2023 Anisocytosis Ql (Bld) Slight Normal [facility] Comment on above: Performed By: #### L ACTIC, CMP, CBC #### [facility] [address] [place] [address] [place] Basophils (Bld) [#/Vol] 0.1 10*3/uL Normal 0.0-0.2 [facility] Comment on above: Performed By: #### L ACTIC, CMP, CBC #### [facility] [address] [place] [address] [place] Basophils/100 WBC (Bld) 1.3 % Normal . [facility] Comment on above: Performed By: #### L ACTIC, CMP, CBC #### [facility] [address] [place] [address] [place] Eosinophils (Bld) [#/Vol] 0.2 10*3/uL Normal 0.0-0.45 [facility] Comment on above: Performed By: #### L ACTIC, CMP, CBC #### [facility] [address] [place] [address] [place] Eosinophils/100 WBC (Bld) 3.0 % Normal . [facility] Comment on above: Performed By: #### L ACTIC, CMP, CBC #### [facility] [address] [place] [address] [place] Erythrocyte distribution width (RBC) [Ratio] 16.7 % High 11.9-15.3 [facility] Comment on above: Performed By: #### L ACTIC, CMP, CBC #### [facility] [address] [place] [address] [place] Hematocrit (Bld) [Volume fraction] 33.0 % Low 34.0-46.4 [facility] Comment on above: Performed By: #### L ACTIC, CMP, CBC #### [address] Hemoglobin (Bld) [Mass/Vol] 10.7 g/dL Low 11.8-15.4 [facility] Comment on above: Performed By: #### L ACTIC, CMP, CBC #### [address] Large Platelets Slight Normal [facility] Comment on above: Result Comment: PERF ORMED BY: [place] [address] PATHOLOGIST VOLUNTEER RECRUITER IAN ACE M.D. Performed By: #### L ACTIC, CMP, CBC #### [address] Lymphocytes (Bld) [#/Vol] 0.8 10*3/uL Low 1.00-4.8 [facility] Comment on above: Performed By: #### L ACTIC, CMP, CBC #### [address] Lymphocytes/100 WBC (Bld) 10.6 % Normal . [facility] Comment on above: Performed By: #### L ACTIC, CMP, CBC #### [address] MCH (RBC) [Entitic mass] 26.0 pg Normal 24.7-34.3 [facility] Comment on above: Performed By: #### L ACTIC, CMP, CBC #### [address] MCV (RBC) [Entitic vol] 80.2 fL Normal 80-100 [facility] Comment on above: Performed By: #### L ACTIC, CMP, CBC #### [address] Mean Corpuscular HGB Conc 32.4 g/dL Normal 32.0-35.0 [facility] Comment on above: Performed By: #### L ACTIC, CMP, CBC #### [facility] [address] Microcytosis Slight Normal [facility] Comment on above: Performed By: #### L ACTIC, CMP, CBC #### [facility] [address] Monocytes (Bld) [#/Vol] 0.8 10*3/uL Normal 0.0-0.8 [facility] Comment on above: Performed By: #### L ACTIC, CMP, CBC #### [facility] [address] Monocytes/100 WBC (Bld) 11.9 % Normal . [facility] Comment on above: Performed By: #### L ACTIC, CMP, CBC #### [address] Neutrophils (Bld) [#/Vol] 5.2 10*3/uL Normal 1.8-7.7 [facility] Comment on above: Performed By: #### L ACTIC, CMP, CBC #### [address] Neutrophils/100 WBC (Bld) 73.2 % Normal . [facility] Comment on above: Performed By: #### L ACTIC, CMP, CBC #### [address] NRBC% 0.2 /100{WBC} Normal 0-0.5 [facility] Comment on above: Performed By: #### L ACTIC, CMP, CBC #### [place] [address] [place] Ovalocytes Slight Normal [facility] Comment on above: Performed By: #### L ACTIC, CMP, CBC #### [address] Platelet Estimate Normal Normal Normal [facility] Comment on above: Performed By: #### L ACTIC, CMP, CBC #### [facility] [address] [place] [address] [place] Platelet mean volume (Bld) [Entitic vol] 6.9 fL Normal 6.3-10.7 [facility] Comment on above: Performed By: #### L ACTIC, CMP, CBC #### [address] Platelets (Bld) [#/Vol] 390 10*3/uL Normal 150-450 [facility] Comment on above: Performed By: #### L ACTIC, CMP, CBC #### [address] Poikilocytosis Slight Normal [facility] Comment on above: Performed By: #### L ACTIC, CMP, CBC #### [address] Polychromasia Slight Normal [facility] Comment on above: Performed By: #### L ACTIC, CMP, CBC #### [address] RBC (Bld) [#/Vol] 4.11 10*6/uL Normal 3.60-5.00 [facility] Comment on above: Performed By: #### L ACTIC, CMP, CBC #### [address] WBC (Bld) [#/Vol] 7.1 10*3/uL Normal 3.8-11.6 [facility] Comment on above: Performed By: #### L ACTIC, CMP, CBC #### [address] Serum or plasma trough vanco mycin levelOrdered By: Neeraj Farrell on 04-13-2023 Vancomycin trough [Mass/Vol] 16.7 ug/mL 10.0-20.0 [facility] Comment on above: Last dose: - Vancomycin [Mass/volume] in Serum or Plasma --peakOrdered By: Neeraj Farrell on 04-13-2023 Vancomycin peak [Mass/Vol] 32.0 ug/mL 20.0-40.0 [facility] Comment on above: Last dose: - Vancomycin,Peakon 04-13-2023 Vancomycin,Peak 32.0 ug/mL Normal 20.0-40.0 [facility] Comment on above: Order Comment: Comme nt ?DRAW 1 HOUR AFTER INFUSION COMPLETES Date of last dose?: 20230412 Time of last dose?: 2329 Result Comment: Last dose: - PERFORMED BY: [place] [address] PATHOLOGIST VOLUNTEER RECRUITER IAN ACE M.D. Performed By: #### C UBLD, CMP, CBC #### [facility] [address] Basic Metabolic Panelon 11-0 Anion gap [Moles/Vol] 12.9 mmol/L Normal 6.0-15.0 [facility] Comment on above: Performed By: #### C UBLD, CMP, CBC #### [facility] [address] Calcium [Mass/Vol] 8.9 mg/dL Normal 8.6-10.3 [facility] Comment on above: Performed By: #### C UBLD, CMP, CBC #### [facility] [address] [place] [address] [place] Chloride [Moles/Vol] 100 mmol/L Normal 98-107 [facility] Comment on above: Performed By: #### C UBLD, CMP, CBC #### [facility] [address] CO2 [Moles/Vol] 19.0 mmol/L Low 21.0-31.0 [facility] Comment on above: Performed By: #### C UBLD, CMP, CBC #### [facility] [address] [place] [address] [place] Creatinine [Mass/Vol] 1.13 mg/dL Normal 0.60-1.20 [facility] Comment on above: Performed By: #### C UBLD, CMP, CBC #### [facility] [address] [place] [address] [place] Creatinine Clr Calc Pharmacy 65.44 Normal [facility] Comment on above: Result Comment: PERF ORMED BY: [place] [address] PATHOLOGIST VOLUNTEER RECRUITER IAN ACE M.D. Performed By: #### C ALEXX RAND, CBC #### [address] GFR/1.73 sq M.predicted MDRD (S/P/Bld) [Vol rate/Area] 53.657 mL/min/{1.73_m2} Normal [facility] Comment on above: Performed By: #### C ALEXX RAND, CBC #### [address] Glucose [Mass/Vol] 119 mg/dL High 70-100 [facility] Comment on above: Result Comment: [place] Glucose Reference Range is dependent on time and content of last meal. Glucose of more than 200 mg/dL in a nonstressed, ambulatory subject supports the diagnosis of Diabetes Mellitus. ADA recommended reference range Performed By: #### C ALEXX RADN, CBC #### [address] Potassium [Moles/Vol] 3.9 mmol/L Normal 3.5-5.1 [facility] Comment on above: Performed By: #### C ALEXX RAND, CBC #### [address] Sodium [Moles/Vol] 128 mmol/L Low 136-145 [facility] Comment on above: Performed By: #### C ALEXX RAND, CBC #### [address] Urea nitrogen [Mass/Vol] 43 mg/dL High 7-25 [facility] Comment on above: Performed By: #### C ALEXX RAND, CBC #### [address] Complete Blood Count Auto Di ffon 04-12-2023 Basophils (Bld) [#/Vol] 0.0 10*3/uL Normal 0.0-0.2 [facility] Comment on above: Result Comment: PERF ORMED BY: [place] [address] PATHOLOGIST VOLUNTEER RECRUITER IAN ACE M.D. Performed By: #### C UBLD, CMP, CBC #### [address] Basophils/100 WBC (Bld) 0.5 % Normal . [facility] Comment on above: Performed By: #### C UBLD, CMP, CBC #### [address] Eosinophils (Bld) [#/Vol] 0.1 10*3/uL Normal 0.0-0.45 [facility] Comment on above: Performed By: #### C UBLD, CMP, CBC #### [address] Eosinophils/100 WBC (Bld) 1.6 % Normal . [facility] Comment on above: Performed By: #### C UBLD, CMP, CBC #### [address] Erythrocyte distribution width (RBC) [Ratio] 16.9 % High 11.9-15.3 [facility] Comment on above: Performed By: #### C UBLD, CMP, CBC #### [address] Hematocrit (Bld) [Volume fraction] 31.7 % Low 34.0-46.4 [facility] Comment on above: Performed By: #### C UBLD, CMP, CBC #### [address] Hemoglobin (Bld) [Mass/Vol] 10.3 g/dL Low 11.8-15.4 [facility] Comment on above: Performed By: #### C UBLD, CMP, CBC #### [address] Lymphocytes (Bld) [#/Vol] 0.6 10*3/uL Low 1.00-4.8 [facility] Comment on above: Performed By: #### C UBLD, CMP, CBC #### [address] Lymphocytes/100 WBC (Bld) 8.2 % Normal . [facility] Comment on above: Performed By: #### C UBLD, CMP, CBC #### [facility] [address] MCH (RBC) [Entitic mass] 26.2 pg Normal 24.7-34.3 [facility] Comment on above: Performed By: #### C UBLD, CMP, CBC #### [address] MCV (RBC) [Entitic vol] 80.7 fL Normal 80-100 [facility] Comment on above: Performed By: #### C UBLD, CMP, CBC #### [address] Mean Corpuscular HGB Conc 32.5 g/dL Normal 32.0-35.0 [facility] Comment on above: Performed By: #### C UBLD, CMP, CBC #### [place] [address] [place] Monocytes (Bld) [#/Vol] 1.0 10*3/uL High 0.0-0.8 [facility] Comment on above: Performed By: #### C UBLD, CMP, CBC #### [place] [address] [place] Monocytes/100 WBC (Bld) 13.4 % Normal . [facility] Comment on above: Performed By: #### C UBLD, CMP, CBC #### [place] [address] [place] Neutrophils (Bld) [#/Vol] 5.6 10*3/uL Normal 1.8-7.7 [facility] Comment on above: Performed By: #### C UBLD, CMP, CBC #### [address] Neutrophils/100 WBC (Bld) 76.3 % Normal . [facility] Comment on above: Performed By: #### C UBLD, CMP, CBC #### [address] NRBC% 0.3 /100{WBC} Normal 0-0.5 [facility] Comment on above: Performed By: #### C UBLD, CMP, CBC #### [address] Platelet mean volume (Bld) [Entitic vol] 7.2 fL Normal 6.3-10.7 [facility] Comment on above: Performed By: #### C UBLD, CMP, CBC #### [address] Platelets (Bld) [#/Vol] 363 10*3/uL Normal 150-450 [facility] Comment on above: Performed By: #### C UBLD, CMP, CBC #### [address] RBC (Bld) [#/Vol] 3.93 10*6/uL Normal 3.60-5.00 [facility] Comment on above: Performed By: #### C UBLD, CMP, CBC #### [address] WBC (Bld) [#/Vol] 7.3 10*3/uL Normal 3.8-11.6 [facility] Comment on above: Performed By: #### C UBLD, CMP, CBC #### [address] Arterial Blood Gason 023 ABG Base Excess -15.4 mmol/L Low -3.0-3.0 [facility] Comment on above: Performed By: #### C UBLD, CMP, CBC #### [address] ABG Frac Inspired O2 44 % Normal [facility] Comment on above: Performed By: #### C UBLD, CMP, CBC #### [address] ABG Liter Flow 6 Normal [facility] Comment on above: Performed By: #### C UBLD, CMP, CBC #### [facility] [address] ABG Oxygen Content 7.8 mmol/L Normal 6.6-9.7 [facility] Comment on above: Performed By: #### C UBLD, CMP, CBC #### [facility] [address] ABG Oxygen Saturation 97.6 % Normal 95.0-100.0 [facility] Comment on above: Performed By: #### C UBLD, CMP, CBC #### [facility] [address] ABG PCO2 52.5 mm[Hg] Off scale high 35.0-45.0 [facility] Comment on above: Performed By: #### C UBLD, CMP, CBC #### [facility] [address] ABG PH 7.07 Off scale low 7.35-7.45 [facility] Comment on above: Performed By: #### C UBLD, CMP, CBC #### [address] ABG PO2 105.6 mm[Hg] High 80.0-100.0 [facility] Comment on above: Performed By: #### C UBLD, CMP, CBC #### [facility] [address] [place] [address] [place] CO2 [Moles/Vol] 16.3 mmol/L Low 23.0-27.0 [facility] Comment on above: Performed By: #### C UBLD, CMP, CBC #### [facility] [address] [place] [address] [place] HCO3 (Bld) [Moles/Vol] 14.7 mmol/L Low 23.0-29.0 [facility] Comment on above: Performed By: #### C UBLD, CMP, CBC #### [facility] [address] Respiratory Critical Normal [facility] Comment on above: Result Comment: Crit ical Value called on: 04/11/2023 at 08:56 PERFORMED BY: [place] [address] PATHOLOGIST VOLUNTEER RECRUITER IAN ACE M.D. Performed By: #### C UBLD, CMP, CBC #### [facility] [address] VBG Draw Site Right Radial Normal [facility] Comment on above: Performed By: #### C UBLD, CMP, CBC #### [facility] [address] [place] [address] B-Type Natriuretic Peptideon 04-11-2023 Natriuretic peptide B (Bld) [Mass/Vol] 181.0 pg/mL High 5-100 [facility] Comment on above: Result Comment: PERF ORMED BY: [place] [address] PATHOLOGIST VOLUNTEER RECRUITER IAN ACE M.D. Performed By: #### C UBLD, CMP, CBC #### [facility] [address] [place] [address] Bacterial blood cultureOrder ed By: Laith Monte on 04-11-2023 Bacteria identified Cx Nom (Bld) NO GROWTH 5 DAYS [facility] Blood Cultureon 04-11-2023 Bacteria identified Cx Nom (Bld) NO GROWTH 5 DAYS PERFORMED BY: [place] [address] PATHOLOGIST VOLUNTEER RECRUITER IAN ACE M.D. [facility] Comment on above: Performed By: #### C UBLD, CMP, CBC #### [facility] [address] [place] [address] Bacteria identified Cx Nom (Bld) NO GROWTH 5 DAYS PERFORMED BY: [place] [address] PATHOLOGIST VOLUNTEER RECRUITER IAN ACE M.D. [facility] Comment on above: Performed By: #### C UBLD, CMP, CBC #### [place] [address] Complete Blood Count Auto Di ffon 04-11-2023 Basophils (Bld) [#/Vol] 0.1 10*3/uL Normal 0.0-0.2 [facility] Comment on above: Result Comment: PERF ORMED BY: [place] [address] PATHOLOGIST VOLUNTEER RECRUITER IAN ACE M.D. Performed By: #### C UBLD, CMP, CBC #### [address] Basophils/100 WBC (Bld) 0.6 % Normal . [facility] Comment on above: Performed By: #### C UBLD, CMP, CBC #### [address] Eosinophils (Bld) [#/Vol] 0.0 10*3/uL Normal 0.0-0.45 [facility] Comment on above: Performed By: #### C UBLD, CMP, CBC #### [address] Eosinophils/100 WBC (Bld) 0.1 % Normal . [facility] Comment on above: Performed By: #### C UBLD, CMP, CBC #### [address] Erythrocyte distribution width (RBC) [Ratio] 17.2 % High 11.9-15.3 [facility] Comment on above: Performed By: #### C UBLD, CMP, CBC #### [place] [address] [place] Hematocrit (Bld) [Volume fraction] 37.9 % Normal 34.0-46.4 [facility] Comment on above: Performed By: #### C UBLD, CMP, CBC #### [address] Hemoglobin (Bld) [Mass/Vol] 11.8 g/dL Normal 11.8-15.4 [facility] Comment on above: Performed By: #### C UBLD, CMP, CBC #### [facility] [address] Lymphocytes (Bld) [#/Vol] 0.3 10*3/uL Low 1.00-4.8 [facility] Comment on above: Performed By: #### C UBLD, CMP, CBC #### [address] Lymphocytes/100 WBC (Bld) 1.8 % Normal . [facility] Comment on above: Performed By: #### C UBLD, CMP, CBC #### [address] MCH (RBC) [Entitic mass] 25.9 pg Normal 24.7-34.3 [facility] Comment on above: Performed By: #### C UBLD, CMP, CBC #### [address] MCV (RBC) [Entitic vol] 82.9 fL Normal 80-100 [facility] Comment on above: Performed By: #### C UBLD, CMP, CBC #### [address] Mean Corpuscular HGB Conc 31.2 g/dL Low 32.0-35.0 [facility] Comment on above: Performed By: #### C UBLD, CMP, CBC #### [address] Monocytes (Bld) [#/Vol] 1.0 10*3/uL High 0.0-0.8 [facility] Comment on above: Performed By: #### C UBLD, CMP, CBC #### [place] [address] [place] Monocytes/100 WBC (Bld) 6.9 % Normal . [facility] Comment on above: Performed By: #### C UBLD, CMP, CBC #### [place] [address] [place] Neutrophils (Bld) [#/Vol] 13.7 10*3/uL High 1.8-7.7 [facility] Comment on above: Performed By: #### C UBLD, CMP, CBC #### [address] Neutrophils/100 WBC (Bld) 90.6 % Normal . [facility] Comment on above: Performed By: #### C UBLD, CMP, CBC #### [address] NRBC% 0.2 /100{WBC} Normal 0-0.5 [facility] Comment on above: Performed By: #### C UBLD, CMP, CBC #### [address] Platelet mean volume (Bld) [Entitic vol] 6.9 fL Normal 6.3-10.7 [facility] Comment on above: Performed By: #### C UBLD, CMP, CBC #### [address] Platelets (Bld) [#/Vol] 443 10*3/uL Normal 150-450 [facility] Comment on above: Performed By: #### C UBLD, CMP, CBC #### [address] RBC (Bld) [#/Vol] 4.56 10*6/uL Normal 3.60-5.00 [facility] Comment on above: Performed By: #### C UBLD, CMP, CBC #### [place] [address] [place] WBC (Bld) [#/Vol] 15.1 10*3/uL High 3.8-11.6 [facility] Comment on above: Performed By: #### C UBLD, CMP, CBC #### [address] Basophils (Bld) [#/Vol] 0.0 10*3/uL Normal 0.0-0.2 [facility] Comment on above: Result Comment: PERF ORMED BY: [place] [address] PATHOLOGIST VOLUNTEER RECRUITER IAN ACE M.D. Performed By: #### C UBLD, CMP, CBC #### [address] Basophils/100 WBC (Bld) 0.2 % Normal . [facility] Comment on above: Performed By: #### C UBLD, CMP, CBC #### [address] Eosinophils (Bld) [#/Vol] 0.1 10*3/uL Normal 0.0-0.45 [facility] Comment on above: Performed By: #### C UBLD, CMP, CBC #### [address] Eosinophils/100 WBC (Bld) 0.7 % Normal . [facility] Comment on above: Performed By: #### C UBLD, CMP, CBC #### [address] Erythrocyte distribution width (RBC) [Ratio] 17.0 % High 11.9-15.3 [facility] Comment on above: Performed By: #### C UBLD, CMP, CBC #### [address] Hematocrit (Bld) [Volume fraction] 39.3 % Normal 34.0-46.4 [facility] Comment on above: Performed By: #### C UBLD, CMP, CBC #### [address] Hemoglobin (Bld) [Mass/Vol] 12.2 g/dL Normal 11.8-15.4 [facility] Comment on above: Performed By: #### C UBLD, CMP, CBC #### [address] Lymphocytes (Bld) [#/Vol] 1.0 10*3/uL Normal 1.00-4.8 [facility] Comment on above: Performed By: #### C UBLD, CMP, CBC #### [place] [address] [place] Lymphocytes/100 WBC (Bld) 6.0 % Normal . [facility] Comment on above: Performed By: #### C UBLD, CMP, CBC #### [address] MCH (RBC) [Entitic mass] 25.7 pg Normal 24.7-34.3 [facility] Comment on above: Performed By: #### C UBLD, CMP, CBC #### [address] MCV (RBC) [Entitic vol] 83.1 fL Normal 80-100 [facility] Comment on above: Performed By: #### C UBLD, CMP, CBC #### [address] Mean Corpuscular HGB Conc 30.9 g/dL Low 32.0-35.0 [facility] Comment on above: Performed By: #### C UBLD, CMP, CBC #### [address] Monocytes (Bld) [#/Vol] 1.4 10*3/uL High 0.0-0.8 [facility] Comment on above: Performed By: #### C UBLD, CMP, CBC #### [address] Monocytes/100 WBC (Bld) 7.8 % Normal . [facility] Comment on above: Performed By: #### C UBLD, CMP, CBC #### [address] Neutrophils (Bld) [#/Vol] 14.8 10*3/uL High 1.8-7.7 [facility] Comment on above: Performed By: #### C UBLD, CMP, CBC #### [address] Neutrophils/100 WBC (Bld) 85.3 % Normal . [facility] Comment on above: Performed By: #### C UBLD, CMP, CBC #### [address] [place] [address] [place] NRBC% 0.1 /100{WBC} Normal 0-0.5 [facility] Comment on above: Performed By: #### C UBLD, CMP, CBC #### [address] Platelet mean volume (Bld) [Entitic vol] 7.2 fL Normal 6.3-10.7 [facility] Comment on above: Performed By: #### C UBLD, CMP, CBC #### [address] Platelets (Bld) [#/Vol] 488 10*3/uL High 150-450 [facility] Comment on above: Performed By: #### C UBLD, CMP, CBC #### [address] RBC (Bld) [#/Vol] 4.73 10*6/uL Normal 3.60-5.00 [facility] Comment on above: Performed By: #### C UBLD, CMP, CBC #### [address] WBC (Bld) [#/Vol] 17.4 10*3/uL High 3.8-11.6 [facility] Comment on above: Performed By: #### C UBLD, CMP, CBC #### [address] Comprehensive Metabolic Pane jeremy 04-11-2023 Albumin [Mass/Vol] 3.5 g/dL Normal 3.5-5.7 [facility] Comment on above: Performed By: #### C UBLD, CMP, CBC #### [address] Albumin/Globulin [Mass ratio] 0.9 {ratio} Normal [facility] Comment on above: Performed By: #### C UBLD, CMP, CBC #### [address] ALP [Catalytic activity/Vol] 96 U/L Normal 34-104 [facility] Comment on above: Performed By: #### C UBLD, CMP, CBC #### [facility] [address] [place] [address] [place] ALT [Catalytic activity/Vol] 117 U/L High 7-52 [facility] Comment on above: Performed By: #### C UBLD, CMP, CBC #### [facility] [address] Anion gap [Moles/Vol] 12.4 mmol/L Normal 6.0-15.0 [facility] Comment on above: Performed By: #### C UBLD, CMP, CBC #### [facility] [address] AST [Catalytic activity/Vol] 96 U/L High 13-39 [facility] Comment on above: Performed By: #### C UBLD, CMP, CBC #### [facility] [address] Bilirubin [Mass/Vol] 0.3 mg/dL Normal 0.3-1.0 [facility] Comment on above: Performed By: #### C UBLD, CMP, CBC #### [facility] [address] Calcium [Mass/Vol] 9.6 mg/dL Normal 8.6-10.3 [facility] Comment on above: Performed By: #### C UBLD, CMP, CBC #### [facility] [address] [place] [address] [place] Chloride [Moles/Vol] 102 mmol/L Normal 98-107 [facility] Comment on above: Performed By: #### C UBLD, CMP, CBC #### [facility] [address] [place] [address] [place] CO2 [Moles/Vol] 16.8 mmol/L Low 21.0-31.0 [facility] Comment on above: Performed By: #### C UBLD, CMP, CBC #### [facility] [address] [place] [address] [place] Creatinine [Mass/Vol] 1.43 mg/dL High 0.60-1.20 [facility] Comment on above: Performed By: #### C UBLD, CMP, CBC #### [facility] [address] Creatinine Clr Calc Pharmacy 51.71 [facility] Comment on above: Result Comment: PERF ORMED BY: [place] [address] PATHOLOGIST VOLUNTEER RECRUITER IAN ACE M.D. Performed By: #### C UBLD, CMP, CBC #### [facility] [address] [place] [address] [place] GFR/1.73 sq M.predicted MDRD (S/P/Bld) [Vol rate/Area] 40.450 mL/min/{1.73_m2} [facility] Comment on above: Performed By: #### C UBLD, CMP, CBC #### [facility] [address] Globulin (S) [Mass/Vol] 3.8 g/dL [facility] Comment on above: Performed By: #### C UBLD, CMP, CBC #### [address] Glucose [Mass/Vol] 143 mg/dL High 70-100 [facility] Comment on above: Result Comment: [place] Glucose Reference Range is dependent on time and content of last meal. Glucose of more than 200 mg/dL in a nonstressed, ambulatory subject supports the diagnosis of Diabetes Mellitus. ADA recommended reference range Performed By: #### C UBLD, CMP, CBC #### [address] Potassium [Moles/Vol] 4.2 mmol/L Normal 3.5-5.1 [facility] Comment on above: Performed By: #### C UBLD, CMP, CBC #### [facility] [address] Protein [Mass/Vol] 7.3 g/dL Normal 6.4-8.9 [facility] Comment on above: Performed By: #### C UBLD, CMP, CBC #### [facility] [address] Sodium [Moles/Vol] 127 mmol/L Low 136-145 [facility] Comment on above: Performed By: #### C UBLD, CMP, CBC #### [facility] [address] Urea nitrogen [Mass/Vol] 47 mg/dL High 7-25 [facility] Comment on above: Performed By: #### C UBLD, CMP, CBC #### [facility] [address] Albumin [Mass/Vol] 3.6 g/dL Normal 3.5-5.7 [facility] Comment on above: Performed By: #### C UBLD, CMP, CBC #### [address] Albumin/Globulin [Mass ratio] 0.9 {ratio} Normal [facility] Comment on above: Performed By: #### C UBLD, CMP, CBC #### [address] ALP [Catalytic activity/Vol] 95 U/L Normal 34-104 [facility] Comment on above: Performed By: #### C UBLD, CMP, CBC #### [address] ALT [Catalytic activity/Vol] 108 U/L High 7-52 [facility] Comment on above: Performed By: #### C UBLD, CMP, CBC #### [facility] [address] Anion gap [Moles/Vol] 13.8 mmol/L Normal 6.0-15.0 [facility] Comment on above: Performed By: #### C UBLD, CMP, CBC #### [facility] [address] AST [Catalytic activity/Vol] 87 U/L High 13-39 [facility] Comment on above: Performed By: #### C UBLD, CMP, CBC #### [facility] [address] Bilirubin [Mass/Vol] 0.3 mg/dL Normal 0.3-1.0 [facility] Comment on above: Performed By: #### C UBLD, CMP, CBC #### [facility] [address] Calcium [Mass/Vol] 9.5 mg/dL Normal 8.6-10.3 [facility] Comment on above: Performed By: #### C UBLD, CMP, CBC #### [facility] [address] Chloride [Moles/Vol] 102 mmol/L Normal 98-107 [facility] Comment on above: Performed By: #### C UBLD, CMP, CBC #### [address] CO2 [Moles/Vol] 15.4 mmol/L Low 21.0-31.0 [facility] Comment on above: Performed By: #### C UBLD, CMP, CBC #### [address] Creatinine [Mass/Vol] 1.23 mg/dL High 0.60-1.20 [facility] Comment on above: Performed By: #### C UBLD, CMP, CBC #### [place] [address] [place] Creatinine Clr Calc Pharmacy 60.12 [facility] Comment on above: Result Comment: PERF ORMED BY: [place] [address] PATHOLOGIST VOLUNTEER RECRUITER IAN ACE M.D. Performed By: #### C UBLD, CMP, CBC #### [place] [address] [place] GFR/1.73 sq M.predicted MDRD (S/P/Bld) [Vol rate/Area] 48.466 mL/min/{1.73_m2} [facility] Comment on above: Performed By: #### C UBLD, CMP, CBC #### [address] [place] [address] [place] Globulin (S) [Mass/Vol] 3.8 g/dL Normal [facility] Comment on above: Performed By: #### C UBPREMA CMP, CBC #### [facility] [address] Glucose [Mass/Vol] 143 mg/dL High 70-100 [facility] Comment on above: Result Comment: [place] Glucose Reference Range is dependent on time and content of last meal. Glucose of more than 200 mg/dL in a nonstressed, ambulatory subject supports the diagnosis of Diabetes Mellitus. ADA recommended reference range Performed By: #### C UBPREMA CMP, CBC #### [address] Potassium [Moles/Vol] 4.2 mmol/L Normal 3.5-5.1 [facility] Comment on above: Performed By: #### C UBPREMA CMP, CBC #### [address] Protein [Mass/Vol] 7.4 g/dL Normal 6.4-8.9 [facility] Comment on above: Performed By: #### C UBPREMA CMP, CBC #### [address] Sodium [Moles/Vol] 127 mmol/L Low 136-145 [facility] Comment on above: Performed By: #### C UBLD, CMP, CBC #### [address] Urea nitrogen [Mass/Vol] 46 mg/dL High 7-25 [facility] Comment on above: Performed By: #### C UBPREMA, CMP, CBC #### [address] Creatine Kinaseon 04-11-2023 CK [Catalytic activity/Vol] 122 U/L Normal 30-223 [facility] Comment on above: Performed By: #### L ACTIC, CMP, CBC #### [place] [address] [place] Creatine kinase [Enzymatic a ctivity/volume] in Serum or PlasmaOrdered By: Laith Monte on 04-11-2023 CK [Catalytic activity/Vol] 122 U/L 30-223 [facility] ECG 12 lead ECGon 04-11-2023 ECG 12 lead ECG [facility] Main [address] [address] Electrocardiograph Report Signed Patient: [place] Cesar MR#: [id number] : 1955 Acct:[id number] Age/Sex: 67 / F ADM Date: 04/10/23 Loc: Room: [address] [place] [address] Type: ADM IN Attending Dr: Malorie Nathan [...] previous ECGs available Confirmed by LONNIE MORENO [id number] on 04/12/2023 9:24:12 AM Referred By: Electronically Signed By:LUISA HANKINS MD [facility] Transcribed By: MUS Signed By Luisa Hankins MD, [facility] 04/12/23 0924 [facility] Glucose Glucometer (BldC) [M ass/Vol]Ordered By: Malorie Nathan on 04-11-2023 Glucose [Mass/Vol] 149 mg/dL [facility] Comment on above: Random Glucose Refer ence Range is dependent on time and content of last meal. Glucose of more than 200 mg/dL in a nonstressed, ambulatory subject supports the diagnosis of Diabetes Mellitus. Glucose Poct Glucometerson 1 06-11-2022 Glucose [Mass/Vol] 149 mg/dL [facility] Comment on above: Result Comment: [place] Glucose Reference Range is dependent on time and content of last meal. Glucose of more than 200 mg/dL in a nonstressed, ambulatory subject supports the diagnosis of Diabetes Mellitus. PERFORMED BY: [place] [address] PATHOLOGIST VOLUNTEER RECRUITER IAN ACE M.D. Performed By: #### G LULS #### Point of Care testing , Laboratory - Chemistry and C hemistry - challengeOrdered By: Malorie Nathan on 04-11-2023 CO2 [Moles/Vol] 16.3 mmol/L 23.0-27.0 [facility] HCO3 (Bld) [Moles/Vol] 14.7 mmol/L 23.0-29.0 [facility] Lactate [Moles/volume] in Se rum or PlasmaOrdered By: Laith Monte on 04-11-2023 Lactate [Moles/Vol] 1.3 mmol/L 0.5-2.2 [facility] Lactic Acidon 04-11-2023 Lactate [Moles/Vol] 1.3 mmol/L Normal 0.5-2.2 [facility] Comment on above: Result Comment: PERF ORMED BY: [place] [address] PATHOLOGIST VOLUNTEER RECRUITER IAN ACE M.D. Performed By: #### C UBLD, CMP, CBC #### [address] Natriuretic peptide B [Mass/ Vol]Ordered By: Laith Monte on 04-11-2023 Natriuretic peptide B (Bld) [Mass/Vol] 181.0 pg/mL 5-100 [facility] No Panel InformationOrdered By: Malorie Nathan on 04-11-2023 Arterial Blood Base Excess -15.4 mmol/L -3.0-3.0 [facility] Arterial Blood Oxygen Content 7.8 mmol/L 6.6-9.7 [facility] Arterial Blood Oxygen Saturation 97.6 % 95.0-100.0 [facility] Arterial Blood Partial Pressure CO2 52.5 mm[Hg] 35.0-45.0 [facility] Arterial Blood Partial Pressure O2 105.6 mm[Hg] 80.0-100.0 [facility] Arterial Blood pH 7.07 7.35-7.45 [facility] Blood Gas Critical Value See comment [facility] Comment on above: Critical Value julio haynes on: 04/11/2023 at 08:56 Blood Gas Liter Flow 6 L/min [facility] Blood Gas Sample Site Right radial F [facility] FiO2 44 % [facility] Troponin I High Sensitivityo n 04-11-2023 Troponin I High Sensitivity 33.9 pg/mL High 0.0-15.0 [facility] Comment on above: Result Comment: PERF ORMED BY: [place] [address] PATHOLOGIST VOLUNTEER RECRUITER IAN ACE M.D. Performed By: #### L ACTIC, CMP, CBC #### [address] Troponin I.cardiac [Mass/vol ume] in Serum or Plasma by Detection limit <= 0.01 ng/Ordered By: Laith Monte on 04-11-2023 Troponin I.cardiac DL <= 0.01 ng/mL [Mass/Vol] 33.9 pg/mL 0.0-15.0 [facility] XR chest 1V portableon 04-11 XR chest 1V portable [facility] [place] [address] [place] [address] XRay Report Signed Patient: [place] Cesar MR#: [id number] : 1955 Acct:[id number] Age/Sex: 67 / F ADM Date: 04/10/23 Loc: Room: [address] [place] [address] Type: ADM IN Attending Dr: Malorie Nathan [...] Crispin Sullivan M.D.04/11/2023 9:10 AM Dictation Location: [place] [address] Transcribed By: MARIA VICTORIA 04/11/23909 Dictated By: Crispin Sullivan II, MD 04/11/23907 Signed By: 04/11/23909 Normal [facility] Alanine aminotransferase [En zymatic activity/volume] in Serum or PlasmaOrdered By: Sarah Davey on 04-10-2023 ALT [Catalytic activity/Vol] 91 U/L 7-52 [facility] Albumin [Mass/volume] in Ser um or Plasma by Bromocresol green (BCG) dye binding methoOrdered By: Sarah Davey on 04-10-2023 Albumin BCG dye [Mass/Vol] 3.7 g/dL 3.5-5.7 [facility] Alkaline phosphatase [Enzyma tic activity/volume] in Serum or PlasmaOrdered By: Sarah Davey on 04-10-2023 ALP [Catalytic activity/Vol] 92 U/L 34-104 [facility] Aspartate aminotransferase [ Enzymatic activity/volume] in Serum or PlasmaOrdered By: Sarah Davey on 04-10-2023 AST [Catalytic activity/Vol] 74 U/L 13-39 [facility] Automated erythrocytes count in urine sediment (number/area)Ordered By: Sarah Davey on 04-10-2023 RBC Auto (Urine sed) [#/Area] 1-2 [HPF] 0-4 [facility] Automated leukocytes count i n urine sediment (number/area)Ordered By: Sarah Davey on 04-10-2023 WBC Auto (Urine sed) [#/Area] 10-19 [HPF] 0-4 [facility] Basic Metabolic Panelon 11 Anion gap [Moles/Vol] 14.6 mmol/L Normal 6.0-15.0 [facility] Comment on above: Performed By: #### C UBLD, CMP, CBC #### [facility] [address] Calcium [Mass/Vol] 9.5 mg/dL Normal 8.6-10.3 [facility] Comment on above: Performed By: #### C UBLD, CMP, CBC #### [facility] [address] Chloride [Moles/Vol] 102 mmol/L Normal 98-107 [facility] Comment on above: Performed By: #### C UBLD, CMP, CBC #### [address] CO2 [Moles/Vol] 14.3 mmol/L Low 21.0-31.0 [facility] Comment on above: Performed By: #### C UBLD, CMP, CBC #### [address] Creatinine [Mass/Vol] 1.16 mg/dL Normal 0.60-1.20 [facility] Comment on above: Performed By: #### C UBPREMA, CMP, CBC #### [address] Creatinine Clr Calc Pharmacy 63.71 [facility] Comment on above: Result Comment: PERF ORMED BY: [place] [address] PATHOLOGIST VOLUNTEER RECRUITER IAN ACE M.D. Performed By: #### C UBLD, CMP, CBC #### [place] [address] [place] GFR/1.73 sq M.predicted MDRD (S/P/Bld) [Vol rate/Area] 51.997 mL/min/{1.73_m2} [facility] Comment on above: Performed By: #### C UBLD, CMP, CBC #### [address] [address] [place] Glucose [Mass/Vol] 142 mg/dL High 70-100 [facility] Comment on above: Result Comment: [place] Glucose Reference Range is dependent on time and content of last meal. Glucose of more than 200 mg/dL in a nonstressed, ambulatory subject supports the diagnosis of Diabetes Mellitus. ADA recommended reference range Performed By: #### C UBLD, CMP, CBC #### [facility] [address] Potassium [Moles/Vol] 3.9 mmol/L Normal 3.5-5.1 [facility] Comment on above: Performed By: #### C UBLD, CMP, CBC #### [facility] [address] Sodium [Moles/Vol] 127 mmol/L Low 136-145 [facility] Comment on above: Performed By: #### C UBLD, CMP, CBC #### [facility] [address] Urea nitrogen [Mass/Vol] 45 mg/dL High 7-25 [facility] Comment on above: Performed By: #### C UBLD, CMP, CBC #### [facility] [address] [place] [address] [place] Basophils Auto (Bld) [#/Vol] Ordered By: Sarah Schwarzimore on 04-10-2023 Basophils (Bld) [#/Vol] 0.1 10*3/uL 0.0-0.2 [facility] Basophils/100 WBC Auto (Bld) Ordered By: Sarah Bullimore on 04-10-2023 Basophils/100 WBC (Bld) 0.5 % . [facility] Bilirubin Test strip Ql (U)O rdered By: Sarah Davey on 04-10-2023 Bilirubin Ql (U) Negative Negative [facility] Bilirubin.total [Mass/volume ] in Serum or PlasmaOrdered By: Sarah Schwarzimmundo on 04-10-2023 Bilirubin [Mass/Vol] 0.4 mg/dL 0.3-1.0 [facility] Blood Cultureon 11-03-2023 Bacteria identified Cx Nom (Bld) NO GROWTH 5 DAYS PERFORMED BY: [facility] [address] [place] [address] PATHOLOGIST VOLUNTEER RECRUITER IAN ACE M.D. Normal [facility] Comment on above: Performed By: #### G LULS #### Point of Care testing , C reactive protein [Mass/vol ume] in Serum or PlasmaOrdered By: Sarah Schwarzimore on 04-10-2023 CRP [Mass/Vol] 16.1 mg/dL 0.0-0.5 [facility] C-Reactive Proteinon 023 C-Reactive Protein 16.1 mg/dL High 0.0-0.5 [facility] Comment on above: Result Comment: PERF ORMED BY: [address] [place] [address] PATHOLOGIST VOLUNTEER RECRUITER IAN ACE M.D. Performed By: #### G LULS #### Point of Care testing , Calcium [Mass/volume] in Ser um or PlasmaOrdered By: Sarah Bullimore on 04-10-2023 Calcium [Mass/Vol] 10.0 mg/dL 8.6-10.3 [facility] Carbon dioxide, total [Moles /volume] in Serum or PlasmaOrdered By: Sarah Bullimore on 04-10-2023 CO2 [Moles/Vol] 15.4 mmol/L 21.0-31.0 [facility] Chloride [Moles/volume] in S marivel or PlasmaOrdered By: Sarah Bullimore on 04-10-2023 Chloride [Moles/Vol] 102 mmol/L 98-107 [facility] Color Auto (U)Ordered By: Tiffany Schwarzimore on 04-10-2023 Color (U) Yellow Yellow [facility] Complete Blood Count Auto Di ffon 04-10-2023 Basophils (Bld) [#/Vol] 0.1 10*3/uL Normal 0.0-0.2 [facility] Comment on above: Performed By: #### G LULS #### Point of Care testing , Basophils/100 WBC (Bld) 0.5 % Normal . [facility] Comment on above: Performed By: #### G KYAWLS #### Point of Care testing , Eosinophils (Bld) [#/Vol] 0.1 10*3/uL Normal 0.0-0.45 [facility] Comment on above: Performed By: #### G KYAWLS #### Point of Care testing , Eosinophils/100 WBC (Bld) 1.0 % Normal . [facility] Comment on above: Performed By: #### G KYAWLS #### Point of Care testing , Erythrocyte distribution width (RBC) [Ratio] 16.8 % High 11.9-15.3 [facility] Comment on above: Performed By: #### G DAIANA #### Point of Care testing , Hematocrit (Bld) [Volume fraction] 39.4 % Normal 34.0-46.4 [facility] Comment on above: Performed By: #### G DAIANA #### Point of Care testing , Hemoglobin (Bld) [Mass/Vol] 12.7 g/dL Normal 11.8-15.4 [facility] Comment on above: Performed By: #### G DAIANA #### Point of Care testing , Lymphocytes (Bld) [#/Vol] 0.4 10*3/uL Low 1.00-4.8 [facility] Comment on above: Performed By: #### G KYAWLS #### Point of Care testing , Lymphocytes/100 WBC (Bld) 3.2 % Normal . [facility] Comment on above: Performed By: #### G DAIANA #### Point of Care testing , MCH (RBC) [Entitic mass] 26.3 pg Normal 24.7-34.3 [facility] Comment on above: Performed By: #### G DAIANA #### Point of Care testing , MCV (RBC) [Entitic vol] 81.8 fL Normal 80-100 [facility] Comment on above: Performed By: #### G DAIANA #### Point of Care testing , Mean Corpuscular HGB Conc 32.1 g/dL Normal 32.0-35.0 [facility] Comment on above: Performed By: #### G DAIANA #### Point of Care testing , Monocytes (Bld) [#/Vol] 0.6 10*3/uL Normal 0.0-0.8 [facility] Comment on above: Performed By: #### G KYAWLS #### Point of Care testing , Monocytes/100 WBC (Bld) 17.56 % Normal 0.00-20.00 [facility] Comment on above: Performed By: #### Jodi CARDLS #### Point of Care testing , Monocytes/100 WBC (Bld) 5.0 % Normal . [facility] Comment on above: Performed By: #### G DAIANA #### Point of Care testing , Neutrophils (Bld) [#/Vol] 11.7 10*3/uL High 1.8-7.7 [facility] Comment on above: Performed By: #### Jodi AHMADI #### Point of Care testing , Neutrophils/100 WBC (Bld) 90.3 % Normal . [facility] Comment on above: Performed By: #### Jodi AHMADI #### Point of Care testing , NRBC% 0.1 /100{WBC} Normal 0-0.5 [facility] Comment on above: Performed By: #### Jodi AHMADI #### Point of Care testing , Platelet mean volume (Bld) [Entitic vol] 7.5 fL Normal 6.3-10.7 [facility] Comment on above: Performed By: #### Jodi AHMADI #### Point of Care testing , Platelets (Bld) [#/Vol] 474 10*3/uL High 150-450 [facility] Comment on above: Performed By: #### Jodi AHMADI #### Point of Care testing , RBC (Bld) [#/Vol] 4.82 10*6/uL Normal 3.60-5.00 [facility] Comment on above: Performed By: #### Jodi AHMADI #### Point of Care testing , WBC (Bld) [#/Vol] 13.0 10*3/uL High 3.8-11.6 [facility] Comment on above: Performed By: #### Jodi AHMADI #### Point of Care testing , Comprehensive Metabolic Pane jeremy 04-10-2023 Albumin [Mass/Vol] 3.7 g/dL Normal 3.5-5.7 [facility] Comment on above: Performed By: #### Jodi AHMADI #### Point of Care testing , Albumin/Globulin [Mass ratio] 0.8 {ratio} Normal [facility] Comment on above: Performed By: #### Jodi AHMADI #### Point of Care testing , ALP [Catalytic activity/Vol] 92 U/L Normal 34-104 [facility] Comment on above: Performed By: #### Jodi AHMADI #### Point of Care testing , ALT [Catalytic activity/Vol] 91 U/L High 7-52 [facility] Comment on above: Performed By: #### Jodi AHMADI #### Point of Care testing , Anion gap [Moles/Vol] 15.3 mmol/L High 6.0-15.0 [facility] Comment on above: Performed By: #### Jodi AHMADI #### Point of Care testing , AST [Catalytic activity/Vol] 74 U/L High 13-39 [facility] Comment on above: Performed By: #### Jodi AHMADI #### Point of Care testing , Bilirubin [Mass/Vol] 0.4 mg/dL Normal 0.3-1.0 [facility] Comment on above: Performed By: #### Jodi AHMADI #### Point of Care testing , Calcium [Mass/Vol] 10.0 mg/dL Normal 8.6-10.3 [facility] Comment on above: Performed By: #### Jodi AHMADI #### Point of Care testing , Chloride [Moles/Vol] 102 mmol/L Normal 98-107 [facility] Comment on above: Performed By: #### Jodi AHMADI #### Point of Care testing , CO2 [Moles/Vol] 15.4 mmol/L Low 21.0-31.0 [facility] Comment on above: Performed By: #### Jodi AHMADI #### Point of Care testing , Creatinine [Mass/Vol] 1.21 mg/dL High 0.60-1.20 [facility] Comment on above: Performed By: #### G KYAWLS #### Point of Care testing , Creatinine Clr Calc Pharmacy 60.88 [facility] Comment on above: Performed By: #### G LULS #### Point of Care testing , GFR/1.73 sq M.predicted MDRD (S/P/Bld) [Vol rate/Area] 49.429 mL/min/{1.73_m2} [facility] Comment on above: Performed By: #### G KYAWLS #### Point of Care testing , Globulin (S) [Mass/Vol] 4.5 g/dL [facility] Comment on above: Performed By: #### G KYAWLS #### Point of Care testing , Glucose [Mass/Vol] 109 mg/dL High 70-100 [facility] Comment on above: Result Comment: [facility] Glucose Reference Range is dependent on time and content of last meal. Glucose of more than 200 mg/dL in a nonstressed, ambulatory subject supports the diagnosis of Diabetes Mellitus. ADA recommended reference range Performed By: #### G LULS #### Point of Care testing , Potassium [Moles/Vol] 3.7 mmol/L Normal 3.5-5.1 [facility] Comment on above: Performed By: #### G KYAWLS #### Point of Care testing , Protein [Mass/Vol] 8.2 g/dL Normal 6.4-8.9 [facility] Comment on above: Performed By: #### G KYAWLS #### Point of Care testing , Sodium [Moles/Vol] 129 mmol/L Low 136-145 [facility] Comment on above: Performed By: #### G KYAWLS #### Point of Care testing , Urea nitrogen [Mass/Vol] 43 mg/dL High 7-25 [facility] Comment on above: Performed By: #### G LULS #### Point of Care testing , Creatinine [Mass/volume] in Serum or PlasmaOrdered By: Sarah Davey on 04-10-2023 Creatinine [Mass/Vol] 1.21 mg/dL 0.60-1.20 [facility] Creatinine [Mass/volume] in UrineOrdered By: Neeraj Farrell on 04-10-2023 Creatinine (U) [Mass/Vol] 131.0 mg/dL 11.0-20.0 [facility] Creatinine, Urine (Random)on 04-10-2023 Creatinine, Urine (Random) 131.0 mg/dL High 11.0-20.0 [facility] Comment on above: Result Comment: PERF ORMED BY: [place] [address] PATHOLOGIST VOLUNTEER RECRUITER IAN ACE M.D. Performed By: #### C UBLD, CMP, CBC #### [facility] [address] [place] [address] [place] Dipstick and Microscopicon 1 06-10-2022 Appearance (U) Clear Normal Clear [facility] Comment on above: Order Comment: Name Collection Type:: Clean-Voided Midstream Performed By: #### C UBLD, CMP, CBC #### [facility] [address] [place] [address] [place] Bacteria,Urine None Seen Normal None Seen [facility] Comment on above: Order Comment: Name Collection Type:: Clean-Voided Midstream Performed By: #### C UBLD, CMP, CBC #### [facility] [address] [place] [address] [place] Bilirubin,Urine Negative Normal Negative [facility] Comment on above: Order Comment: Name Collection Type:: Clean-Voided Midstream Performed By: #### C UBLD, CMP, CBC #### [facility] [address] [place] [address] [place] Color (U) Yellow Normal Yellow [facility] Comment on above: Order Comment: Name Collection Type:: Clean-Voided Midstream Performed By: #### C UBLD, CMP, CBC #### [facility] [address] [place] [address] [place] Glucose Ql (U) Normal Normal Normal [facility] Comment on above: Order Comment: Name Collection Type:: Clean-Voided Midstream Performed By: #### C UBLD, CMP, CBC #### [address] Hyaline Casts,Urine 0-8 Normal 0-8 [facility] Comment on above: Order Comment: Name Collection Type:: Clean-Voided Midstream Performed By: #### C UBLD, CMP, CBC #### [address] Ketones Ql (U) Trace High Negative [facility] Comment on above: Order Comment: Name Collection Type:: Clean-Voided Midstream Performed By: #### C UBLD, CMP, CBC #### [address] Leukocyte esterase Test strip Ql (U) 1+ High Negative [facility] Comment on above: Order Comment: Name Collection Type:: Clean-Voided Midstream Performed By: #### C UBLD, CMP, CBC #### [address] Nitrite,Urine Negative Normal Negative [facility] Comment on above: Order Comment: Name Collection Type:: Clean-Voided Midstream Performed By: #### C UBLD, CMP, CBC #### [address] Occult Blood,Urine Negative Normal Negative [facility] Comment on above: Order Comment: Name Collection Type:: Clean-Voided Midstream Result Comment: PERF ORMED BY: [place] [address] PATHOLOGIST VOLUNTEER RECRUITER IAN ACE M.D. Performed By: #### C UBLD, CMP, CBC #### [place] [address] [place] pH (U) 6.0 [pH] Normal 5.0-9.0 [facility] Comment on above: Order Comment: Name Collection Type:: Clean-Voided Midstream Performed By: #### C UBLD, CMP, CBC #### [place] [address] [place] Protein (U) [Mass/Vol] 100 mg/dL High Negative [facility] Comment on above: Order Comment: Name Collection Type:: Clean-Voided Midstream Performed By: #### C UBLD, CMP, CBC #### [facility] [address] [place] [address] RBC,Urine 1-2 Normal 0-4 [facility] Comment on above: Order Comment: Name Collection Type:: Clean-Voided Midstream Performed By: #### C UBLD, CMP, CBC #### [facility] [address] [place] [address] Specificy [place],Urine 1.034 High 1.001-1.03 0 [facility] Comment on above: Order Comment: Name Collection Type:: Clean-Voided Midstream Performed By: #### C UBLD, CMP, CBC #### [address] Squamous Epithelial Cell,Urine 3-4 High 0-2 [facility] Comment on above: Order Comment: Name Collection Type:: Clean-Voided Midstream Performed By: #### C UBLD, CMP, CBC #### [facility] [address] [place] [address] Urobilinogen,Urine Normal Normal Normal [facility] Comment on above: Order Comment: Name Collection Type:: Clean-Voided Midstream Performed By: #### C UBLD, CMP, CBC #### [facility] [address] [place] [address] WBC,Urine 10-19 High 0-4 [facility] Comment on above: Order Comment: Name Collection Type:: Clean-Voided Midstream Performed By: #### C UBLD, CMP, CBC #### [facility] [address] [place] [address] Yeast,Urine None Seen Normal None Seen [facility] Comment on above: Order Comment: Name Collection Type:: Clean-Voided Midstream Result Comment: PERF ORMED BY: [place] [address] PATHOLOGIST VOLUNTEER RECRUITER IAN ACE M.D. Performed By: #### C UBLD, CMP, CBC #### [facility] [address] [place] [id number] [place] Eosinophils Auto (Bld) [#/Vo l]Ordered By: Sarah Davey on 04-10-2023 Eosinophils (Bld) [#/Vol] 0.1 10*3/uL 0.0-0.45 [facility] Eosinophils/100 WBC Auto (Bl d)Ordered By: Sarah Davey on 04-10-2023 Eosinophils/100 WBC (Bld) 1.0 % . [facility] Erythrocyte Sedimentation Ra emery 04-10-2023 ESR (Bld) [Velocity] mm/h High 0-29 [facility] Comment on above: Result Comment: PERF ORMED BY: [facility] [address] [place] [address] PATHOLOGIST VOLUNTEER RECRUITER IAN ACE M.D. Performed By: #### G LULS #### Point of Care testing , Erythrocyte distribution wid th Auto (RBC) [Ratio]Ordered By: Sarah Davey on 04-10-2023 Erythrocyte distribution width (RBC) [Ratio] 16.8 % 11.9-15.3 [facility] Erythrocyte sedimentation ra te by Photometric methodOrdered By: Sarahros Davey on 04-10-2023 ESR Photometric method (Bld) [Velocity] > 130 mm/hr 0-29 [facility] Globulin Calc (S) [Mass/Vol] Ordered By: Sarahros Davey on 04-10-2023 Globulin (S) [Mass/Vol] 4.5 g/dL [facility] Glucose [Mass/volume] in Ser um or PlasmaOrdered By: Sarah Davey on 04-10-2023 Glucose [Mass/Vol] 109 mg/dL 70-100 [facility] Comment on above: ADA recommended refe rence rangeRandom Glucose Reference Range is dependent on time and content of last meal. Glucose of more than 200 mg/dL in a nonstressed, ambulatory subject supports the diagnosis of Diabetes Mellitus. Hematocrit Auto (Bld) [Volum e fraction]Ordered By: Sarah Davey on 04-10-2023 Hematocrit (Bld) [Volume fraction] 39.4 % 34.0-46.4 [facility] Hemoglobin [Mass/volume] in BloodOrdered By: Sarahros Davey on 04-10-2023 Hemoglobin (Bld) [Mass/Vol] 12.7 g/dL 11.8-15.4 [facility] Ketones Auto test strip (U) [Mass/Vol]Ordered By: Sarahros Davey on 04-10-2023 Ketones (U) [Mass/Vol] Trace Negative [facility] - UrinalysisOrder ed By: Sarahros Davey on 04-10-2023 Hyaline casts LM Ql (Urine sed) 0-8 [LPF] 0-8 [facility] Lactate [Moles/volume] in Se rum or PlasmaOrdered By: [facility] 04-[facility]23 Lactate [Moles/Vol] 1.3 mmol/L Normal 0.5-2.2 [facility] Comment on above: Result Comment: PERF ORMED BY: [place] [address] PATHOLOGIST VOLUNTEER RECRUITER IAN ACE M.D. Performed By: #### C UBLD, CMP, CBC #### [address] Leukocytes [#/volume] correc julia for nucleated erythrocytes in Blood by Automated counOrdered By: [facility] Chong[facility] on 04-10-2023 WBC corrected for nucl RBC Auto (Bld) [#/Vol] 13.0 10*3/uL 3.8-11.6 [facility] Lymphocytes Auto (Bld) [#/Vo l]Ordered By: [facility] 04-[facility]23 Lymphocytes (Bld) [#/Vol] 0.4 10*3/uL 1.00-4.8 [facility] Lymphocytes/100 WBC Auto (Bl d)Ordered By: [facility] on 04-10-2023 Lymphocytes/100 WBC (Bld) 3.2 % . [facility] MCH Auto (RBC) [Entitic mass ]Ordered By: [facility] on 04-10-2023 MCH (RBC) [Entitic mass] 26.3 pg 24.7-34.3 [facility] MCHC Auto (RBC) [Mass/Vol]Or dered By: Sarah Schwarzimore on 04-10-2023 MCHC (RBC) [Mass/Vol] 32.1 g/dL 32.0-35.0 [facility] MCV Auto (RBC) [Entitic vol] Ordered By: Sarah Schwarzimore on 04-10-2023 MCV (RBC) [Entitic vol] 81.8 fL 80-100 [facility] Monocyte distribution width [Entitic volume] in Blood by AutomatedOrdered By: Sarah Schwarzimore on 04-10-2023 Monocyte distribution width Auto (Bld) [Entitic vol] 17.56 % 0.00-20.00 [facility] Monocytes Auto (Bld) [#/Vol] Ordered By: Sarahros Schwarzimore on 04-10-2023 Monocytes (Bld) [#/Vol] 0.6 10*3/uL 0.0-0.8 [facility] Monocytes/100 WBC Auto (Bld) Ordered By: Sarah Schwarzimore on 04-10-2023 Monocytes/100 WBC (Bld) 5.0 % . [facility] Neutrophils Auto (Bld) [#/Vo l]Ordered By: Sarahros Schwarzimore on 04-10-2023 Neutrophils (Bld) [#/Vol] 11.7 10*3/uL 1.8-7.7 [facility] Neutrophils/100 WBC Auto (Bl d)Ordered By: Sarah Schwarzimore on 04-10-2023 Neutrophils/100 WBC (Bld) 90.3 % . [facility] Nitrite Test strip Ql (U)Ord ered By: Sarah Davey on 04-10-2023 Nitrite Ql (U) Negative Negative [facility] No Panel InformationOrdered By: Sarah Davey on 04-10-2023 Estimated GFR (CKD-EPI) 49.429 mL/Min [facility] Creatinine Clearance (Chem 60.88 [facility] Nucleated erythrocytes [Pres ence] in Blood by Automated countOrdered By: Sarah Davey on 04-10-2023 Nucleated RBC Auto Ql (Bld) 0.1 /100{WBC} 0-0.5 [facility] Platelet mean volume Auto (B ld) [Entitic vol]Ordered By: Sarah Bullimore on 04-10-2023 Platelet mean volume (Bld) [Entitic vol] 7.5 fL 6.3-10.7 [facility] Platelets Auto (Bld) [#/Vol] Ordered By: Sarah Bullimore on 04-10-2023 Platelets (Bld) [#/Vol] 474 10*3/uL 150-450 [facility] Potassium [Moles/volume] in Serum or PlasmaOrdered By: Sarah Bullimore on 04-10-2023 Potassium [Moles/Vol] 3.7 mmol/L 3.5-5.1 [facility] Protein Auto test strip (U) [Mass/Vol]Ordered By: Sarah Bullimore on 04-10-2023 Protein (U) [Mass/Vol] 100 mg/dL Negative [facility] Protein [Mass/volume] in Ser um or PlasmaOrdered By: Sarah Bullimore on 04-10-2023 Protein [Mass/Vol] 8.2 g/dL 6.4-8.9 [facility] RBC Auto (Bld) [#/Vol]Ordere d By: Sarah Bullimore on 04-10-2023 RBC (Bld) [#/Vol] 4.82 10*6/uL 3.60-5.00 [facility] Serum or plasma albumin/glob ulin mass ratioOrdered By: Sarah Bullimore on 04-10-2023 Albumin/Globulin [Mass ratio] 0.8 {ratio} [facility] Serum or plasma anion gap de terminationOrdered By: Sarah Bullimore on 04-10-2023 Anion gap [Moles/Vol] 15.3 mmol/L 6.0-15.0 [facility] Sodium [Moles/volume] in Ser um or PlasmaOrdered By: Sarah Bullimore on 04-10-2023 Sodium [Moles/Vol] 129 mmol/L 136-145 [facility] Sodium [Moles/volume] in Uri neOrdered By: Neeraj Farrell on 04-10-2023 Sodium (U) [Moles/Vol] mmol/L [facility] Comment on above: No reference range e stablished Sodium, Urineon 04-10-2023 Sodium, Urine < 10.0 Normal [facility] Comment on above: Result Comment: No r eference range established Performed By: #### C UBLD, CMP, CBC #### [facility] [address] Specific gravity Auto test s trip (U) [Rel density]Ordered By: Sarah Davey on 04-10-2023 Specific gravity (U) [Rel density] 1.034 1.001-1.03 0 [facility] Squamous epithelial cells de tection in urine sediment by light microscopyOrdered By: Sarah Davey on 04-10-2023 Epithelial cells.squamous LM Ql (Urine sed) 3-4 [HPF] 0-2 [facility] Superficial Wound Cultureon 04-10-2023 Superficial Wound Culture ORGANISM: Klebsiella oxytoca (O:KLEOXY) Quantity of Growth Moderate Growth ORGANISM: Providencia rettgeri (O:PRORET) Quantity of Growth Moderate Growth ORGANISM: Gram Negative Bacilli (O:GNB) Comments . Quantity of Growth Heavy Growth Send Test to Ref. Lab Sent to [facility] for ID/PASTORA ORGANISM: Morganella morganii (O:MORMOR) Carbapenemase [Type] in Isolate by [facility] [employer] Organism negative for carbapenemase (CRE) Quantity of [...] = Intermediate; R = Resistant Performed at: [address] [id number] Delivery Driver/Customer Service: Mohsen Mccarthy PhD, Phone: [phone] Aerobic PASTORA Charge (NMIC56) SUSCEPTIBILITY ORGANISM: O:KLEOXY [...] RESISTANT TO ALL B-LACTAM DRUGS. PERFORMED BY: [place] [address] PATHOLOGIST VOLUNTEER RECRUITER IAN ACE M.D. [facility] Comment on above: Performed By: #### C USUP #### [address] Superficial Wound Culture ORGANISM: Serratia marcescens [...] = Intermediate; R = Resistant Performed at: [address] [id number] Delivery Driver/Customer Service: Mohsen Mccarthy PhD, Phone: [phone] Aerobic PASTORA Charge (NMIC56) SUSCEPTIBILITY ORGANISM: O:SERMAR [...] RESISTANT TO ALL B-LACTAM DRUGS. PERFORMED BY: [place] [address] PATHOLOGIST VOLUNTEER RECRUITER IAN ACE M.D. [facility] Comment on above: Performed By: #### C GIORGI, ALEXX, CBC #### [facility] [address] [place] [address] Urea nitrogen [Mass/volume] in Serum or PlasmaOrdered By: Sarah Davey on 04-10-2023 Urea nitrogen [Mass/Vol] 43 mg/dL 12-30 [facility] Urine Cultureon 04-10-2023 Bacteria identified Cx Nom (U) >100,000 colonies/ml mixed bacterial skin contaminants 2 Days PERFORMED BY: [place] [address] PATHOLOGIST VOLUNTEER RECRUITER IAN ACE M.D. [facility] Comment on above: Performed By: #### C UBPREMA, CMP, CBC #### [facility] [address] [place] [address] [facility] Urine bacteria detection by automated methodOrdered By: Sarah Davey on 04-10-2023 Bacteria Auto Ql (U) None seen None Seen [facility] Urine clarity by refractomet ry automatedOrdered By: Sarah Davey on 04-10-2023 Clarity Refractometry automated (U) Clear Clear [facility] Urine culture routineOrdered By: Sarah Davey on 04-10-2023 Bacteria identified Cx Nom (U) 2 Days [facility] Urine glucose measurement by automated test strip (mass/volume)Ordered By: Sarah Davey on 04-10-2023 Glucose Auto test strip (U) [Mass/Vol] Normal mg/dL Normal [facility] Urine hemoglobin detection b y automated test stripOrdered By: Sarah Davey on 04-10-2023 Hemoglobin Auto test strip Ql (U) Negative Negative [facility] Urine leukocyte esterase det ection by automated test stripOrdered By: Sarah Davey on 04-10-2023 Leukocyte esterase Auto test strip Ql (U) 1+ Negative [facility] Urobilinogen Auto test strip (U) [Mass/Vol]Ordered By: Sarah Davey on 04-10-2023 Urobilinogen (U) [Mass/Vol] Normal mg/dL Normal [facility] WBC Auto (Bld) [#/Vol]Ordere d By: Sarah Davey on 04-10-2023 WBC (Bld) [#/Vol] 13.0 10*3/uL 3.8-11.6 [facility] Yeast detection in urine sed iment by light microscopyOrdered By: Sarah Davey on 04-10-2023 Yeast LM Ql (Urine sed) None seen [HPF] None Seen [facility] pH Auto test strip (U)Ordere d By: Sarah Davey on 04-10-2023 pH (U) 6.0 [pH] 5.0-9.0 [facility] XR tibia/fibula BIon 10-31-2 023 XR tibia/fibula BI [facility] [address] [place] [address] XRay Report Signed Patient: [place] Cesar MR#: [id number] : 1955 Acct:[id number] Age/Sex: 67 / F ADM Date: 04/07/23 Loc: ER Room: Type: [facility] ER Attending Dr: Copies to: Jhonatan [...] Johnson Jr., D.OJohnnie04/07/2023 9:00 AM Dictation Location: [place] [address] Transcribed By: [facility] 04/07/23 09 Dictated By: Andrew Johnson Jr, DO 04/07/23 0859 Signed By: 04/07/23 09 Normal [facility] Alanine aminotransferase [En zymatic activity/volume] in Serum or PlasmaOrdered By: Chon Valdez on 12-31-2022 ALT [Catalytic activity/Vol] 29 U/L 7-52 [facility] Albumin [Mass/volume] in Ser um or Plasma by Bromocresol green (BCG) dye binding methoOrdered By: Chon Valdez on 12-31-2022 Albumin BCG dye [Mass/Vol] 3.7 g/dL 3.5-5.7 [facility] Alkaline phosphatase [Enzyma tic activity/volume] in Serum or PlasmaOrdered By: Chon Valdez on 12-31-2022 ALP [Catalytic activity/Vol] 97 U/L 34-104 [facility] Aspartate aminotransferase [ Enzymatic activity/volume] in Serum or PlasmaOrdered By: Chon Valdez on 12-31-2022 AST [Catalytic activity/Vol] 34 U/L 13-39 [facility] Basophils Auto (Bld) [#/Vol] Ordered By: Chon Valdez on 12-31-2022 Basophils (Bld) [#/Vol] 0.0 10*3/uL 0.0-0.2 [facility] Basophils/100 WBC Auto (Bld) Ordered By: Chon Valdez on 12-31-2022 Basophils/100 WBC (Bld) 0.4 % . [facility] Bilirubin.total [Mass/volume ] in Serum or PlasmaOrdered By: Chon Valdez on 12-31-2022 Bilirubin [Mass/Vol] 0.3 mg/dL 0.3-1.0 [facility] Calcium [Mass/volume] in Ser um or PlasmaOrdered By: Chon Valdez on 12-31-2022 Calcium [Mass/Vol] 9.0 mg/dL 8.6-10.3 [facility] Carbon dioxide, total [Moles /volume] in Serum or PlasmaOrdered By: Chon Valdez on 12-31-2022 CO2 [Moles/Vol] 24.9 mmol/L 21.0-31.0 [facility] Chloride [Moles/volume] in S marivel or PlasmaOrdered By: Chon Valdez on 12-31-2022 Chloride [Moles/Vol] 106 mmol/L 98-107 [facility] Complete Blood Count Auto Di ffon 12-31-2022 Basophils (Bld) [#/Vol] 0.0 10*3/uL Normal 0.0-0.2 [facility] Comment on above: Result Comment: PERF ORMED BY: [facility] [address] [place] [address] PATHOLOGIST VOLUNTEER RECRUITER IAN ACE M.D. Performed By: #### G LULS #### Point of Care testing , Basophils/100 WBC (Bld) 0.4 % Normal . [facility] Comment on above: Performed By: #### G LULS #### Point of Care testing , Eosinophils (Bld) [#/Vol] 0.3 10*3/uL Normal 0.0-0.45 [facility] Comment on above: Performed By: #### G LULS #### Point of Care testing , Eosinophils/100 WBC (Bld) 3.9 % Normal . [facility] Comment on above: Performed By: #### Jodi CARDLS #### Point of Care testing , Erythrocyte distribution width (RBC) [Ratio] 17.3 % High 11.9-15.3 [facility] Comment on above: Performed By: #### Jodi CARDLS #### Point of Care testing , Hematocrit (Bld) [Volume fraction] 35.9 % Normal 34.0-46.4 [facility] Comment on above: Performed By: #### Jodi CARDLS #### Point of Care testing , Hemoglobin (Bld) [Mass/Vol] 11.6 g/dL Low 11.8-15.4 [facility] Comment on above: Performed By: #### Jodi AHMADI #### Point of Care testing , Lymphocytes (Bld) [#/Vol] 0.8 10*3/uL Low 1.00-4.8 [facility] Comment on above: Performed By: #### Jodi CARDLS #### Point of Care testing , Lymphocytes/100 WBC (Bld) 9.3 % Normal . [facility] Comment on above: Performed By: #### Jodi AHMADI #### Point of Care testing , MCH (RBC) [Entitic mass] 26.1 pg Normal 24.7-34.3 [facility] Comment on above: Performed By: #### Jodi AHMADI #### Point of Care testing , MCV (RBC) [Entitic vol] 80.5 fL Normal 80-100 [facility] Comment on above: Performed By: #### Jodi AHMADI #### Point of Care testing , Mean Corpuscular HGB Conc 32.5 g/dL Normal 32.0-35.0 [facility] Comment on above: Performed By: #### Jodi CARDLS #### Point of Care testing , Monocytes (Bld) [#/Vol] 0.9 10*3/uL High 0.0-0.8 [facility] Comment on above: Performed By: #### Jodi AHMADI #### Point of Care testing , Monocytes/100 WBC (Bld) 19.53 % Normal 0.00-20.00 [facility] Comment on above: Performed By: #### Jodi AHMADI #### Point of Care testing , Monocytes/100 WBC (Bld) 11.2 % Normal . [facility] Comment on above: Performed By: #### Jodi AHMADI #### Point of Care testing , Neutrophils (Bld) [#/Vol] 6.1 10*3/uL Normal 1.8-7.7 [facility] Comment on above: Performed By: #### Jodi AHMADI #### Point of Care testing , Neutrophils/100 WBC (Bld) 75.2 % Normal . [facility] Comment on above: Performed By: #### Jodi AHMADI #### Point of Care testing , NRBC% 0.1 /100{WBC} Normal 0-0.5 [facility] Comment on above: Performed By: #### Jodi AHMADI #### Point of Care testing , Platelet mean volume (Bld) [Entitic vol] 7.9 fL Normal 6.3-10.7 [facility] Comment on above: Performed By: #### Jodi AHMADI #### Point of Care testing , Platelets (Bld) [#/Vol] 258 10*3/uL Normal 150-450 [facility] Comment on above: Performed By: #### Jodi AHMADI #### Point of Care testing , RBC (Bld) [#/Vol] 4.46 10*6/uL Normal 3.60-5.00 [facility] Comment on above: Performed By: #### Jodi CARDLS #### Point of Care testing , WBC (Bld) [#/Vol] 8.2 10*3/uL Normal 3.8-11.6 [facility] Comment on above: Performed By: #### Jodi AHMADI #### Point of Care testing , Comprehensive Metabolic Pane jeremy 12-31-2022 Albumin [Mass/Vol] 3.7 g/dL Normal 3.5-5.7 [facility] Comment on above: Performed By: #### Jodi AHMADI #### Point of Care testing , Albumin/Globulin [Mass ratio] 1.3 {ratio} Normal [facility] Comment on above: Performed By: #### G DAIANA #### Point of Care testing , ALP [Catalytic activity/Vol] 97 U/L Normal 34-104 [facility] Comment on above: Performed By: #### G DAIANA #### Point of Care testing , ALT [Catalytic activity/Vol] 29 U/L Normal 7-52 [facility] Comment on above: Performed By: #### G KYAWLS #### Point of Care testing , Anion gap [Moles/Vol] 11.3 mmol/L Normal 6.0-15.0 [facility] Comment on above: Performed By: #### G DAIANA #### Point of Care testing , AST [Catalytic activity/Vol] 34 U/L Normal 13-39 [facility] Comment on above: Performed By: #### G DAIANA #### Point of Care testing , Bilirubin [Mass/Vol] 0.3 mg/dL Normal 0.3-1.0 [facility] Comment on above: Performed By: #### G DAIANA #### Point of Care testing , Calcium [Mass/Vol] 9.0 mg/dL Normal 8.6-10.3 [facility] Comment on above: Performed By: #### G DAIANA #### Point of Care testing , Chloride [Moles/Vol] 106 mmol/L Normal 98-107 [facility] Comment on above: Performed By: #### G DAIANA #### Point of Care testing , CO2 [Moles/Vol] 24.9 mmol/L Normal 21.0-31.0 [facility] Comment on above: Performed By: #### G DAIANA #### Point of Care testing , Creatinine [Mass/Vol] 0.75 mg/dL Normal 0.60-1.20 [facility] Comment on above: Performed By: #### G DAIANA #### Point of Care testing , Creatinine Clr Calc Pharmacy 97.74 [facility] Comment on above: Result Comment: PERF ORMED BY: [facility] [address] [place] [address] PATHOLOGIST VOLUNTEER RECRUITER IAN ACE M.D. Performed By: #### G LULS #### Point of Care testing , GFR/1.73 sq M.predicted MDRD (S/P/Bld) [Vol rate/Area] mL/min/{1.73_m2} [facility] Comment on above: Performed By: #### G LULS #### Point of Care testing , Globulin (S) [Mass/Vol] 2.9 g/dL [facility] Comment on above: Performed By: #### G LULS #### Point of Care testing , Glucose [Mass/Vol] 108 mg/dL High 70-100 [facility] Comment on above: Result Comment: [place] Glucose Reference Range is dependent on time and content of last meal. Glucose of more than 200 mg/dL in a nonstressed, ambulatory subject supports the diagnosis of Diabetes Mellitus. ADA recommended reference range Performed By: #### G LULS #### Point of Care testing , Potassium [Moles/Vol] 4.2 mmol/L Normal 3.5-5.1 [facility] Comment on above: Performed By: #### G LULS #### Point of Care testing , Protein [Mass/Vol] 6.6 g/dL Normal 6.4-8.9 [facility] Comment on above: Performed By: #### G LULS #### Point of Care testing , Sodium [Moles/Vol] 138 mmol/L Normal 136-145 [facility] Comment on above: Performed By: #### G LULS #### Point of Care testing , Urea nitrogen [Mass/Vol] 36 mg/dL High 7-25 [facility] Comment on above: Performed By: #### G LULS #### Point of Care testing , Creatinine [Mass/volume] in Serum or PlasmaOrdered By: Chon Valdez on 12-31-2022 Creatinine [Mass/Vol] 0.75 mg/dL 0.60-1.20 [facility] Eosinophils Auto (Bld) [#/Vo l]Ordered By: Chon Valdez on 12-31-2022 Eosinophils (Bld) [#/Vol] 0.3 10*3/uL 0.0-0.45 [facility] Eosinophils/100 WBC Auto (Bl d)Ordered By: Chon Valdez on 12-31-2022 Eosinophils/100 WBC (Bld) 3.9 % . [facility] Erythrocyte distribution wid th Auto (RBC) [Ratio]Ordered By: Chon Valdez on 12-31-2022 Erythrocyte distribution width (RBC) [Ratio] 17.3 % 11.9-15.3 [facility] Globulin Calc (S) [Mass/Vol] Ordered By: Chon Valdez on 12-31-2022 Globulin (S) [Mass/Vol] 2.9 g/dL [facility] Glucose [Mass/volume] in Ser um or PlasmaOrdered By: Chon Valdez on 12-31-2022 Glucose [Mass/Vol] 108 mg/dL 70-100 [facility] Comment on above: ADA recommended refe rence rangeRandom Glucose Reference Range is dependent on time and content of last meal. Glucose of more than 200 mg/dL in a nonstressed, ambulatory subject supports the diagnosis of Diabetes Mellitus. Hematocrit Auto (Bld) [Volum e fraction]Ordered By: Chon Valdez on 12-31-2022 Hematocrit (Bld) [Volume fraction] 35.9 % 34.0-46.4 [facility] Hemoglobin [Mass/volume] in BloodOrdered By: Chon Valdez on 12-31-2022 Hemoglobin (Bld) [Mass/Vol] 11.6 g/dL 11.8-15.4 [facility] Leukocytes [#/volume] correc julia for nucleated erythrocytes in Blood by Automated counOrdered By: Chon Valdez on 12-31-2022 WBC corrected for nucl RBC Auto (Bld) [#/Vol] 8.2 10*3/uL 3.8-11.6 [facility] Lymphocytes Auto (Bld) [#/Vo l]Ordered By: Chon Valdez on 12-31-2022 Lymphocytes (Bld) [#/Vol] 0.8 10*3/uL 1.00-4.8 [facility] Lymphocytes/100 WBC Auto (Bl d)Ordered By: Chon Valdez on 12-31-2022 Lymphocytes/100 WBC (Bld) 9.3 % . [facility] MCH Auto (RBC) [Entitic mass ]Ordered By: Chon Valdez on 12-31-2022 MCH (RBC) [Entitic mass] 26.1 pg 24.7-34.3 [facility] MCHC Auto (RBC) [Mass/Vol]Or dered By: Chon Valdez on 12-31-2022 MCHC (RBC) [Mass/Vol] 32.5 g/dL 32.0-35.0 [facility] MCV Auto (RBC) [Entitic vol] Ordered By: Chon Valdez on 12-31-2022 MCV (RBC) [Entitic vol] 80.5 fL 80-100 [facility] Monocyte distribution width [Entitic volume] in Blood by AutomatedOrdered By: Chon Valdez on 12-31-2022 Monocyte distribution width Auto (Bld) [Entitic vol] 19.53 % 0.00-20.00 [facility] Monocytes Auto (Bld) [#/Vol] Ordered By: Chon Valdez on 12-31-2022 Monocytes (Bld) [#/Vol] 0.9 10*3/uL 0.0-0.8 [facility] Monocytes/100 WBC Auto (Bld) Ordered By: Chon Valdez on 12-31-2022 Monocytes/100 WBC (Bld) 11.2 % . [facility] Neutrophils Auto (Bld) [#/Vo l]Ordered By: Chon Valdez on 12-31-2022 Neutrophils (Bld) [#/Vol] 6.1 10*3/uL 1.8-7.7 [facility] Neutrophils/100 WBC Auto (Bl d)Ordered By: Chon Valdez on 12-31-2022 Neutrophils/100 WBC (Bld) 75.2 % . [facility] No Panel InformationOrdered By: Chon Valdez on 12-31-2022 Estimated GFR (CKD-EPI) > 60.0 mL/Min [facility] Pharmacy Creatinine Clearance (Chem 97.74 [facility] Nucleated erythrocytes [Pres ence] in Blood by Automated countOrdered By: Chon Valdez on 12-31-2022 Nucleated RBC Auto Ql (Bld) 0.1 /100{WBC} 0-0.5 [facility] Platelet mean volume Auto (B ld) [Entitic vol]Ordered By: Chon Valdez on 12-31-2022 Platelet mean volume (Bld) [Entitic vol] 7.9 fL 6.3-10.7 [facility] Platelets Auto (Bld) [#/Vol] Ordered By: Chon Valdez on 12-31-2022 Platelets (Bld) [#/Vol] 258 10*3/uL 150-450 [facility] Potassium [Moles/volume] in Serum or PlasmaOrdered By: Chon Valdez on 12-31-2022 Potassium [Moles/Vol] 4.2 mmol/L 3.5-5.1 [facility] Protein [Mass/volume] in Ser um or PlasmaOrdered By: Chon Valdez on 12-31-2022 Protein [Mass/Vol] 6.6 g/dL 6.4-8.9 [facility] RBC Auto (Bld) [#/Vol]Ordere d By: Chon Valdez on 12-31-2022 RBC (Bld) [#/Vol] 4.46 10*6/uL 3.60-5.00 [facility] Serum or plasma albumin/glob ulin mass ratioOrdered By: Chon Valdez on 12-31-2022 Albumin/Globulin [Mass ratio] 1.3 {ratio} [facility] Serum or plasma anion gap de terminationOrdered By: Chon Valdez on 12-31-2022 Anion gap [Moles/Vol] 11.3 mmol/L 6.0-15.0 [facility] Sodium [Moles/volume] in Ser um or PlasmaOrdered By: Chon Valdez on 12-31-2022 Sodium [Moles/Vol] 138 mmol/L 136-145 [facility] Urea nitrogen [Mass/volume] in Serum or PlasmaOrdered By: Chon Valdez on 12-31-2022 Urea nitrogen [Mass/Vol] 36 mg/dL 7-25 [facility] WBC Auto (Bld) [#/Vol]Ordere d By: Chon Valdez on 12-31-2022 WBC (Bld) [#/Vol] 8.2 10*3/uL 3.8-11.6 [facility] Complete Blood Count Auto Di ffon 12-14-2022 Basophils (Bld) [#/Vol] 0.1 10*3/uL Normal 0.0-0.2 [facility] Comment on above: Result Comment: PERF ORMED BY: [place] [address] PATHOLOGIST VOLUNTEER RECRUITER IAN ACE M.D. Performed By: #### L ACTIC, CMP, CBC #### [facility] [address] Basophils/100 WBC (Bld) 1.0 % Normal . [facility] Comment on above: Performed By: #### L ACTIC, CMP, CBC #### [facility] [address] [place] [address] [place] Eosinophils (Bld) [#/Vol] 0.4 10*3/uL Normal 0.0-0.45 [facility] Comment on above: Performed By: #### L ACTIC, CMP, CBC #### [address] Eosinophils/100 WBC (Bld) 4.9 % Normal . [facility] Comment on above: Performed By: #### L ACTIC, CMP, CBC #### [facility] [address] [place] [address] Erythrocyte distribution width (RBC) [Ratio] 17.6 % High 11.9-15.3 [facility] Comment on above: Performed By: #### L ACTIC, CMP, CBC #### [facility] [address] [place] [address] [place] Hematocrit (Bld) [Volume fraction] 36.1 % Normal 34.0-46.4 [facility] Comment on above: Performed By: #### L ACTIC, CMP, CBC #### [facility] [address] [place] [address] [place] Hemoglobin (Bld) [Mass/Vol] 11.6 g/dL Low 11.8-15.4 [facility] Comment on above: Performed By: #### L ACTIC, CMP, CBC #### [facility] [address] Lymphocytes (Bld) [#/Vol] 1.3 10*3/uL Normal 1.00-4.8 [facility] Comment on above: Performed By: #### L ACTIC, CMP, CBC #### [facility] [address] Lymphocytes/100 WBC (Bld) 17.2 % Normal . [facility] Comment on above: Performed By: #### L ACTIC, CMP, CBC #### [address] MCH (RBC) [Entitic mass] 25.9 pg Normal 24.7-34.3 [facility] Comment on above: Performed By: #### L ACTIC, CMP, CBC #### [address] MCV (RBC) [Entitic vol] 80.4 fL Normal 80-100 [facility] Comment on above: Performed By: #### L ACTIC, CMP, CBC #### [address] Mean Corpuscular HGB Conc 32.2 g/dL Normal 32.0-35.0 [facility] Comment on above: Performed By: #### L ACTIC, CMP, CBC #### [place] [address] [place] Monocytes (Bld) [#/Vol] 0.7 10*3/uL Normal 0.0-0.8 [facility] Comment on above: Performed By: #### L ACTIC, CMP, CBC #### [place] [address] [place] Monocytes/100 WBC (Bld) 19.39 % Normal 0.00-20.00 [facility] Comment on above: Performed By: #### L ACTIC, CMP, CBC #### [place] [address] [place] Monocytes/100 WBC (Bld) 9.1 % Normal . [facility] Comment on above: Performed By: #### L ACTIC, CMP, CBC #### [facility] [address] Neutrophils (Bld) [#/Vol] 5.0 10*3/uL Normal 1.8-7.7 [facility] Comment on above: Performed By: #### L ACTIC, CMP, CBC #### [facility] [address] Neutrophils/100 WBC (Bld) 67.8 % Normal . [facility] Comment on above: Performed By: #### L ACTIC, CMP, CBC #### [facility] [address] NRBC% 0.1 /100{WBC} Normal 0-0.5 [facility] Comment on above: Performed By: #### L ACTIC, CMP, CBC #### [address] Platelet mean volume (Bld) [Entitic vol] 8.0 fL Normal 6.3-10.7 [facility] Comment on above: Performed By: #### L ACTIC, CMP, CBC #### [place] [address] [place] Platelets (Bld) [#/Vol] 204 10*3/uL Normal 150-450 [facility] Comment on above: Performed By: #### L ACTIC, CMP, CBC #### [facility] [address] [place] [address] [place] RBC (Bld) [#/Vol] 4.49 10*6/uL Normal 3.60-5.00 [facility] Comment on above: Performed By: #### L ACTIC, CMP, CBC #### [place] [address] [place] WBC (Bld) [#/Vol] 7.4 10*3/uL Normal 3.8-11.6 [facility] Comment on above: Performed By: #### L ACTIC, CMP, CBC #### [address] [address] [place] Comprehensive Metabolic Pane jeremy 12-14-2022 Albumin [Mass/Vol] 4.0 g/dL Normal 3.5-5.7 [facility] Comment on above: Performed By: #### L ACTPERCY CMP, CBC #### [facility] [address] Albumin/Globulin [Mass ratio] 1.4 {ratio} Normal [facility] Comment on above: Performed By: #### L ACTPERCY CMP, CBC #### [facility] [address] ALP [Catalytic activity/Vol] 81 U/L Normal 34-104 [facility] Comment on above: Performed By: #### L ACTPERCY CMP, CBC #### [facility] [address] ALT [Catalytic activity/Vol] 21 U/L Normal 7-52 [facility] Comment on above: Performed By: #### L ACTPERCY CMP, CBC #### [facility] [address] Anion gap [Moles/Vol] 12.1 mmol/L Normal 6.0-15.0 [facility] Comment on above: Performed By: #### L ACTPERCY CMP, CBC #### [facility] [address] AST [Catalytic activity/Vol] 22 U/L Normal 13-39 [facility] Comment on above: Performed By: #### L ACTPERCY CMP, CBC #### [facility] [address] [place] [address] [place] Bilirubin [Mass/Vol] 0.3 mg/dL Normal 0.3-1.0 [facility] Comment on above: Performed By: #### L ACTPERCY CMP, CBC #### [facility] [address] [place] [id number] [facility] Calcium [Mass/Vol] 8.9 mg/dL Normal 8.6-10.3 [facility] Comment on above: Performed By: #### L ACTPERCY CMP, CBC #### [facility] [address] [place] [address] [place] Chloride [Moles/Vol] 106 mmol/L Normal 98-107 [facility] Comment on above: Performed By: #### L ALEXX ADLER, CBC #### [facility] [address] CO2 [Moles/Vol] 27.1 mmol/L Normal 21.0-31.0 [facility] Comment on above: Performed By: #### L ALEXX ADLER, CBC #### [facility] [address] Creatinine [Mass/Vol] 0.94 mg/dL Normal 0.60-1.20 [facility] Comment on above: Performed By: #### L ALEXX ADLER, CBC #### [address] Creatinine Clr Calc Pharmacy 86.28 [facility] Comment on above: Result Comment: PERF ORMED BY: [place] [address] PATHOLOGIST VOLUNTEER RECRUITER IAN ACE M.D. Performed By: #### L ALEXX ADLER, CBC #### [address] GFR/1.73 sq M.predicted MDRD (S/P/Bld) [Vol rate/Area] mL/min/{1.73_m2} [facility] Comment on above: Performed By: #### L ALEXX ADLER, CBC #### [facility] [address] [place] [address] [place] Globulin (S) [Mass/Vol] 2.9 g/dL [facility] Comment on above: Performed By: #### L ALEXX ADLER, CBC #### [address] Glucose [Mass/Vol] 98 mg/dL Normal 70-100 [facility] Comment on above: Result Comment: [facility] Glucose Reference Range is dependent on time and content of last meal. Glucose of more than 200 mg/dL in a nonstressed, ambulatory subject supports the diagnosis of Diabetes Mellitus. ADA recommended reference range Performed By: #### L ACTIC CMP, CBC #### [facility] [address] [place] [address] Potassium [Moles/Vol] 4.2 mmol/L Normal 3.5-5.1 [facility] Comment on above: Performed By: #### L ACTIC CMP, CBC #### [address] Protein [Mass/Vol] 6.9 g/dL Normal 6.4-8.9 [facility] Comment on above: Performed By: #### L ACTPERCY CMP, CBC #### [address] Sodium [Moles/Vol] 141 mmol/L Normal 136-145 [facility] Comment on above: Performed By: #### L ACTPERCY CMP, CBC #### [address] Urea nitrogen [Mass/Vol] 24 mg/dL Normal 7-25 [facility] Comment on above: Performed By: #### L ACTPERCY CMP, CBC #### [address] Lactic Acidon 12-14-2022 Lactate [Moles/Vol] 0.9 mmol/L Normal 0.5-2.2 [facility] Comment on above: Result Comment: PERF ORMED BY: [place] [address] PATHOLOGIST VOLUNTEER RECRUITER IAN ACE M.D. Performed By: #### L ACTIC, CMP, CBC #### [address] Superficial Wound Cultureon 12-14-2022 Superficial Wound Culture Claudia haemulonii results called at 1420 on 12/18/22. ORGANISM: Pseudomonas aeruginosa (O:PSEAER) Carbapenemase [Type] in Isolate by [employer] Organism negative for carbapenemase (CRE) Quantity of [...] RESISTANT TO ALL B-LACTAM DRUGS. PERFORMED BY: [address] [place] [address] PATHOLOGIST VOLUNTEER RECRUITER IAN ACE M.D. [facility] Comment on above: Performed By: #### C UBLD, CMP, CBC #### [address] Alanine aminotransferase [En zymatic activity/volume] in Serum or PlasmaOrdered By: Chon Valdez on 12-13-2022 ALT [Catalytic activity/Vol] 21 U/L 7-52 [facility] Albumin [Mass/volume] in Ser um or Plasma by Bromocresol green (BCG) dye binding methoOrdered By: Chon Valdez on 12-13-2022 Albumin BCG dye [Mass/Vol] 4.0 g/dL 3.5-5.7 [facility] Alkaline phosphatase [Enzyma tic activity/volume] in Serum or PlasmaOrdered By: Chon Valdez on 12-13-2022 ALP [Catalytic activity/Vol] 81 U/L 34-104 [facility] Aspartate aminotransferase [ Enzymatic activity/volume] in Serum or PlasmaOrdered By: Chon Valdez on 12-13-2022 AST [Catalytic activity/Vol] 22 U/L 13-39 [facility] Bacteria identified Aer cx N om (Unsp spec)Ordered By: Chon Valdez on 12-13-2022 Superficial Wound Culture Pseudomonas aeruginosa [facility] Superficial Wound Culture Enterococcus faecalis [facility] Superficial Wound Culture [facility] Super[facility] W[facility] Culture Methicillin Resis Staph Aureus [facility] Superficial Wound Culture Claudia haemulonii [facility] Basophils Auto (Bld) [#/Vol] Ordered By: Chon Valdez on 12-13-2022 Basophils (Bld) [#/Vol] 0.1 10*3/uL 0.0-0.2 [facility] Basophils/100 WBC Auto (Bld) Ordered By: Chon Valdez on 12-13-2022 Basophils/100 WBC (Bld) 1.0 % . [facility] Bilirubin.total [Mass/volume ] in Serum or PlasmaOrdered By: Chon Valdez on 12-13-2022 Bilirubin [Mass/Vol] 0.3 mg/dL 0.3-1.0 [facility] Calcium [Mass/volume] in Ser um or PlasmaOrdered By: Chon Valdez on 12-13-2022 Calcium [Mass/Vol] 8.9 mg/dL 8.6-10.3 [facility] Carbon dioxide, total [Moles /volume] in Serum or PlasmaOrdered By: Chon Valdez on 12-13-2022 CO2 [Moles/Vol] 27.1 mmol/L 21.0-31.0 [facility] Chloride [Moles/volume] in S marivel or PlasmaOrdered By: Chon Valdez on 12-13-2022 Chloride [Moles/Vol] 106 mmol/L 98-107 [facility] Creatinine [Mass/volume] in Serum or PlasmaOrdered By: Chon Valdez on 12-13-2022 Creatinine [Mass/Vol] 0.94 mg/dL 0.60-1.20 [facility] Eosinophils Auto (Bld) [#/Vo l]Ordered By: Chon Valdez on 12-13-2022 Eosinophils (Bld) [#/Vol] 0.4 10*3/uL 0.0-0.45 [facility] Eosinophils/100 WBC Auto (Bl d)Ordered By: Chon Valdez on 12-13-2022 Eosinophils/100 WBC (Bld) 4.9 % . [facility] Erythrocyte distribution wid th Auto (RBC) [Ratio]Ordered By: Chon Valdez on 12-13-2022 Erythrocyte distribution width (RBC) [Ratio] 17.6 % 11.9-15.3 [facility] Globulin Calc (S) [Mass/Vol] Ordered By: Chon Valdez on 12-13-2022 Globulin (S) [Mass/Vol] 2.9 g/dL [facility] Glucose [Mass/volume] in Ser um or PlasmaOrdered By: Chon Valdez on 12-13-2022 Glucose [Mass/Vol] 98 mg/dL 70-100 [facility] Comment on above: ADA recommended refe rence rangeRandom Glucose Reference Range is dependent on time and content of last meal. Glucose of more than 200 mg/dL in a nonstressed, ambulatory subject supports the diagnosis of Diabetes Mellitus. Hematocrit Auto (Bld) [Volum e fraction]Ordered By: Chon Valdez on 12-13-2022 Hematocrit (Bld) [Volume fraction] 36.1 % 34.0-46.4 [facility] Hemoglobin [Mass/volume] in BloodOrdered By: Chon Valdez on 12-13-2022 Hemoglobin (Bld) [Mass/Vol] 11.6 g/dL 11.8-15.4 [facility] Lactate [Moles/volume] in Se rum or PlasmaOrdered By: Chon Valdez on 12-13-2022 Lactate [Moles/Vol] 0.9 mmol/L 0.5-2.2 [facility] Leukocytes [#/volume] correc julia for nucleated erythrocytes in Blood by Automated counOrdered By: Chon Valdez on 12-13-2022 WBC corrected for nucl RBC Auto (Bld) [#/Vol] 7.4 10*3/uL 3.8-11.6 [facility] Lymphocytes Auto (Bld) [#/Vo l]Ordered By: Chon Valdez on 12-13-2022 Lymphocytes (Bld) [#/Vol] 1.3 10*3/uL 1.00-4.8 [facility] Lymphocytes/100 WBC Auto (Bl d)Ordered By: Chon Valdez on 12-13-2022 Lymphocytes/100 WBC (Bld) 17.2 % . [facility] MCH Auto (RBC) [Entitic mass ]Ordered By: Chon Valdez on 12-13-2022 MCH (RBC) [Entitic mass] 25.9 pg 24.7-34.3 [facility] MCHC Auto (RBC) [Mass/Vol]Or dered By: Chon Valdez on 12-13-2022 MCHC (RBC) [Mass/Vol] 32.2 g/dL 32.0-35.0 [facility] MCV Auto (RBC) [Entitic vol] Ordered By: Chno Valdez on 12-13-2022 MCV (RBC) [Entitic vol] 80.4 fL 80-100 [facility] Monocyte distribution width [Entitic volume] in Blood by AutomatedOrdered By: Chon Valdez on 12-13-2022 Monocyte distribution width Auto (Bld) [Entitic vol] 19.39 % 0.00-20.00 [facility] Monocytes Auto (Bld) [#/Vol] Ordered By: Chon Valdez on 12-13-2022 Monocytes (Bld) [#/Vol] 0.7 10*3/uL 0.0-0.8 [facility] Monocytes/100 WBC Auto (Bld) Ordered By: Chon Valdez on 12-13-2022 Monocytes/100 WBC (Bld) 9.1 % . [facility] Neutrophils Auto (Bld) [#/Vo l]Ordered By: Chon Valdez on 12-13-2022 Neutrophils (Bld) [#/Vol] 5.0 10*3/uL 1.8-7.7 [facility] Neutrophils/100 WBC Auto (Bl d)Ordered By: Chon Valdez on 12-13-2022 Neutrophils/100 WBC (Bld) 67.8 % . [facility] No Panel InformationOrdered By: Chon Valdez on 12-13-2022 Estimated GFR (CKD-EPI) > 60.0 mL/Min [facility] Creatinine Clearance (Chem 86.28 [facility] Nucleated erythrocytes [Pres ence] in Blood by Automated countOrdered By: Chon Valdez on 12-13-2022 Nucleated RBC Auto Ql (Bld) 0.1 /100{WBC} 0-0.5 [facility] Platelet mean volume Auto (B ld) [Entitic vol]Ordered By: Chon Valdez on 12-13-2022 Platelet mean volume (Bld) [Entitic vol] 8.0 fL 6.3-10.7 [facility] Platelets Auto (Bld) [#/Vol] Ordered By: Chon Valdez on 12-13-2022 Platelets (Bld) [#/Vol] 204 10*3/uL 150-450 [facility] Potassium [Moles/volume] in Serum or PlasmaOrdered By: Chon Valdez on 12-13-2022 Potassium [Moles/Vol] 4.2 mmol/L 3.5-5.1 [facility] Protein [Mass/volume] in Ser um or PlasmaOrdered By: Chon Valdez on 12-13-2022 Protein [Mass/Vol] 6.9 g/dL 6.4-8.9 [facility] RBC Auto (Bld) [#/Vol]Ordere d By: Chon Valdez on 12-13-2022 RBC (Bld) [#/Vol] 4.49 10*6/uL 3.60-5.00 [facility] Serum or plasma albumin/glob ulin mass ratioOrdered By: Chon Valdez on 12-13-2022 Albumin/Globulin [Mass ratio] 1.4 {ratio} [facility] Serum or plasma anion gap de terminationOrdered By: Chon Valdez on 12-13-2022 Anion gap [Moles/Vol] 12.1 mmol/L 6.0-15.0 [facility] Sodium [Moles/volume] in Ser um or PlasmaOrdered By: Chon Valdez on 12-13-2022 Sodium [Moles/Vol] 141 mmol/L 136-145 [facility] Urea nitrogen [Mass/volume] in Serum or PlasmaOrdered By: Chon Valdez on 12-13-2022 Urea nitrogen [Mass/Vol] 24 mg/dL 7-25 [facility] WBC Auto (Bld) [#/Vol]Ordere d By: Chon Valdez on 12-13-2022 WBC (Bld) [#/Vol] 7.4 10*3/uL 3.8-11.6 [facility] Alanine aminotransferase [En zymatic activity/volume] in Serum or PlasmaOrdered By: Laith Warner on 12-01-2022 ALT [Catalytic activity/Vol] 21 U/L 7-52 [facility] Albumin [Mass/volume] in Ser um or Plasma by Bromocresol green (BCG) dye binding methoOrdered By: Laith Warner on 12-01-2022 Albumin BCG dye [Mass/Vol] 4.2 g/dL 3.5-5.7 [facility] Alkaline phosphatase [Enzyma tic activity/volume] in Serum or PlasmaOrdered By: Laith Warner on 12-01-2022 ALP [Catalytic activity/Vol] 71 U/L 34-104 [facility] Aspartate aminotransferase [ Enzymatic activity/volume] in Serum or PlasmaOrdered By: Laith Warner on 12-01-2022 AST [Catalytic activity/Vol] 26 U/L 13-39 [facility] Bacterial blood cultureOrder ed By: Laith Warner on 12-01-2022 Bacteria identified Cx Nom (Bld) NO GROWTH 5 DAYS [facility] Basophils Auto (Bld) [#/Vol] Ordered By: Laith Warner on 12-01-2022 Basophils (Bld) [#/Vol] 0.0 10*3/uL 0.0-0.2 [facility] Basophils/100 WBC Auto (Bld) Ordered By: Laith Warner on 12-01-2022 Basophils/100 WBC (Bld) 0.6 % . [facility] Bilirubin.total [Mass/volume ] in Serum or PlasmaOrdered By: Laith Warner on 12-01-2022 Bilirubin [Mass/Vol] 0.3 mg/dL 0.3-1.0 [facility] Blood Cultureon 12-01-2022 Bacteria identified Cx Nom (Bld) NO GROWTH 5 DAYS PERFORMED BY: [place] [address] PATHOLOGIST VOLUNTEER RECRUITER IAN ACE M.D. Normal [facility] Comment on above: Performed By: #### L ACTIC, CMP, CBC #### [address] Bacteria identified Cx Nom (Bld) NO GROWTH 5 DAYS PERFORMED BY: [place] [address] PATHOLOGIST VOLUNTEER RECRUITER IAN ACE M.D. Normal [facility] Comment on above: Performed By: #### L ACTIC, CMP, CBC #### [facility] [address] [place] [address] [facility] Calcium [Mass/volume] in Ser um or PlasmaOrdered By: Laith Warner on 12-01-2022 Calcium [Mass/Vol] 8.9 mg/dL 8.6-10.3 [facility] Carbon dioxide, total [Moles /volume] in Serum or PlasmaOrdered By: Laith Warner on 12-01-2022 CO2 [Moles/Vol] 24.3 mmol/L 21.0-31.0 [facility] Chloride [Moles/volume] in S marivel or PlasmaOrdered By: Laith Warner on 12-01-2022 Chloride [Moles/Vol] 109 mmol/L 98-107 [facility] Complete Blood Count Auto Di ffon 12-01-2022 Basophils (Bld) [#/Vol] 0.0 10*3/uL Normal 0.0-0.2 [facility] Comment on above: Result Comment: PERF ORMED BY: [facility] [address] [place] [id number] PATHOLOGIST VOLUNTEER RECRUITER IAN ACE M.D. Performed By: #### G LULS #### Point of Care testing , Basophils/100 WBC (Bld) 0.6 % Normal . [facility] Comment on above: Performed By: #### G LULS #### Point of Care testing , Eosinophils (Bld) [#/Vol] 0.4 10*3/uL Normal 0.0-0.45 [facility] Comment on above: Performed By: #### G LULS #### Point of Care testing , Eosinophils/100 WBC (Bld) 5.7 % Normal . [facility] Comment on above: Performed By: #### G LULS #### Point of Care testing , Erythrocyte distribution width (RBC) [Ratio] 17.4 % High 11.9-15.3 [facility] Comment on above: Performed By: #### G LULS #### Point of Care testing , Hematocrit (Bld) [Volume fraction] 35.5 % Normal 34.0-46.4 [facility] Comment on above: Performed By: #### Jodi AHMADI #### Point of Care testing , Hemoglobin (Bld) [Mass/Vol] 11.5 g/dL Low 11.8-15.4 [facility] Comment on above: Performed By: #### G KYAWLS #### Point of Care testing , Lymphocytes (Bld) [#/Vol] 0.8 10*3/uL Low 1.00-4.8 [facility] Comment on above: Performed By: #### G KYAWLS #### Point of Care testing , Lymphocytes/100 WBC (Bld) 11.6 % Normal . [facility] Comment on above: Performed By: #### G KYAWLS #### Point of Care testing , MCH (RBC) [Entitic mass] 26.0 pg Normal 24.7-34.3 [facility] Comment on above: Performed By: #### Jodi CARDLS #### Point of Care testing , MCV (RBC) [Entitic vol] 80.2 fL Normal 80-100 [facility] Comment on above: Performed By: #### Jodi AHMADI #### Point of Care testing , Mean Corpuscular HGB Conc 32.5 g/dL Normal 32.0-35.0 [facility] Comment on above: Performed By: #### G KYAWLS #### Point of Care testing , Monocytes (Bld) [#/Vol] 0.6 10*3/uL Normal 0.0-0.8 [facility] Comment on above: Performed By: #### G DAIANA #### Point of Care testing , Monocytes/100 WBC (Bld) 17.78 % Normal 0.00-20.00 [facility] Comment on above: Performed By: #### Jodi CARDLS #### Point of Care testing , Monocytes/100 WBC (Bld) 8.3 % Normal . [facility] Comment on above: Performed By: #### Jodi CARDLS #### Point of Care testing , Neutrophils (Bld) [#/Vol] 5.1 10*3/uL Normal 1.8-7.7 [facility] Comment on above: Performed By: #### G DAIANA #### Point of Care testing , Neutrophils/100 WBC (Bld) 73.8 % Normal . [facility] Comment on above: Performed By: #### G DAIANA #### Point of Care testing , NRBC% 0.1 /100{WBC} Normal 0-0.5 [facility] Comment on above: Performed By: #### G DAIANA #### Point of Care testing , Platelet mean volume (Bld) [Entitic vol] 7.8 fL Normal 6.3-10.7 [facility] Comment on above: Performed By: #### G DAIANA #### Point of Care testing , Platelets (Bld) [#/Vol] 228 10*3/uL Normal 150-450 [facility] Comment on above: Performed By: #### Jodi AHMADI #### Point of Care testing , RBC (Bld) [#/Vol] 4.43 10*6/uL Normal 3.60-5.00 [facility] Comment on above: Performed By: #### Jodi AHMADI #### Point of Care testing , WBC (Bld) [#/Vol] 7.0 10*3/uL Normal 3.8-11.6 [facility] Comment on above: Performed By: #### Jodi AHMADI #### Point of Care testing , Comprehensive Metabolic Pane jeremy 12-01-2022 Albumin [Mass/Vol] 4.2 g/dL Normal 3.5-5.7 [facility] Comment on above: Performed By: #### L ACTIC, CMP, CBC #### [facility] [address] [place] [address] [place] Albumin/Globulin [Mass ratio] 1.6 {ratio} Normal [facility] Comment on above: Performed By: #### L ACTIC, CMP, CBC #### [facility] [address] [place] [address] [place] ALP [Catalytic activity/Vol] 71 U/L Normal 34-104 [facility] Comment on above: Performed By: #### L ACTIC, CMP, CBC #### [facility] [address] [place] [id number] [place] ALT [Catalytic activity/Vol] 21 U/L Normal 7-52 [facility] Comment on above: Performed By: #### L ACTIC, CMP, CBC #### [facility] [address] [place] [id number] [place] Anion gap [Moles/Vol] 11.3 mmol/L Normal 6.0-15.0 [facility] Comment on above: Performed By: #### L ACTIC, CMP, CBC #### [facility] [address] AST [Catalytic activity/Vol] 26 U/L Normal 13-39 [facility] Comment on above: Performed By: #### L ACTIC, CMP, CBC #### [facility] [address] Bilirubin [Mass/Vol] 0.3 mg/dL Normal 0.3-1.0 [facility] Comment on above: Performed By: #### L ACTIC, CMP, CBC #### [facility] [address] [place] [address] [place] Calcium [Mass/Vol] 8.9 mg/dL Normal 8.6-10.3 [facility] Comment on above: Performed By: #### L ACTIC, CMP, CBC #### [facility] [address] [place] [id number] [place] Chloride [Moles/Vol] 109 mmol/L High 98-107 [facility] Comment on above: Performed By: #### L ACTIC, CMP, CBC #### [facility] [address] [place] [id number] [place] CO2 [Moles/Vol] 24.3 mmol/L Normal 21.0-31.0 [facility] Comment on above: Performed By: #### L ACTIC, CMP, CBC #### [facility] [address] [place] [id number] [place] Creatinine [Mass/Vol] 0.84 mg/dL Normal 0.60-1.20 [facility] Comment on above: Performed By: #### L ACTIC, CMP, CBC #### [facility] [address] [place] [address] [place] Creatinine Clr Calc Pharmacy 95.60 [facility] Comment on above: Result Comment: PERF ORMED BY: [place] [address] PATHOLOGIST VOLUNTEER RECRUITER IAN ACE M.D. Performed By: #### L ACTIC, CMP, CBC #### [facility] [address] [place] [address] [place] GFR/1.73 sq M.predicted MDRD (S/P/Bld) [Vol rate/Area] mL/min/{1.73_m2} [facility] Comment on above: Performed By: #### L ACTIC, CMP, CBC #### [facility] [address] [place] [address] [place] Globulin (S) [Mass/Vol] 2.6 g/dL Normal [facility] Comment on above: Performed By: #### L ACTIC, CMP, CBC #### [address] Glucose [Mass/Vol] 89 mg/dL Normal 70-100 [facility] Comment on above: Result Comment: [place] Glucose Reference Range is dependent on time and content of last meal. Glucose of more than 200 mg/dL in a nonstressed, ambulatory subject supports the diagnosis of Diabetes Mellitus. ADA recommended reference range Performed By: #### L ACTIC, CMP, CBC #### [facility] [address] [place] [address] [place] Potassium [Moles/Vol] 3.6 mmol/L Normal 3.5-5.1 [facility] Comment on above: Performed By: #### L ACTIC, CMP, CBC #### [facility] [address] Protein [Mass/Vol] 6.8 g/dL Normal 6.4-8.9 [facility] Comment on above: Performed By: #### L ACTIC, CMP, CBC #### [facility] [address] [place] [address] [place] Sodium [Moles/Vol] 141 mmol/L Normal 136-145 [facility] Comment on above: Performed By: #### L ACTPERCY, CMP, CBC #### [facility] [address] [place] [address] [place] Urea nitrogen [Mass/Vol] 24 mg/dL Normal 7-25 [facility] Comment on above: Performed By: #### L ACTIC, CMP, CBC #### [facility] [address] [place] [address] [place] Creatinine [Mass/volume] in Serum or PlasmaOrdered By: Laith Warner on 12-01-2022 Creatinine [Mass/Vol] 0.84 mg/dL 0.60-1.20 [facility] Eosinophils Auto (Bld) [#/Vo l]Ordered By: Laith Warner on 12-01-2022 Eosinophils (Bld) [#/Vol] 0.4 10*3/uL 0.0-0.45 [facility] Eosinophils/100 WBC Auto (Bl d)Ordered By: Laith Warner on 12-01-2022 Eosinophils/100 WBC (Bld) 5.7 % . [facility] Erythrocyte distribution wid th Auto (RBC) [Ratio]Ordered By: Laith Warner on 12-01-2022 Erythrocyte distribution width (RBC) [Ratio] 17.4 % 11.9-15.3 [facility] Globulin Calc (S) [Mass/Vol] Ordered By: Laith Warner on 12-01-2022 Globulin (S) [Mass/Vol] 2.6 g/dL [facility] Glucose [Mass/volume] in Ser um or PlasmaOrdered By: Laith Warner on 12-01-2022 Glucose [Mass/Vol] 89 mg/dL 70-100 [facility] Comment on above: ADA recommended refe rence rangeRandom Glucose Reference Range is dependent on time and content of last meal. Glucose of more than 200 mg/dL in a nonstressed, ambulatory subject supports the diagnosis of Diabetes Mellitus. Hematocrit Auto (Bld) [Volum e fraction]Ordered By: Laith Warner on 12-01-2022 Hematocrit (Bld) [Volume fraction] 35.5 % 34.0-46.4 [facility] Hemoglobin [Mass/volume] in BloodOrdered By: Laith Warner on 12-01-2022 Hemoglobin (Bld) [Mass/Vol] 11.5 g/dL 11.8-15.4 [facility] Lactate [Moles/volume] in Se rum or PlasmaOrdered By: Laith Warner on 12-01-2022 Lactate [Moles/Vol] 0.5 mmol/L 0.5-2.2 [facility] Lactic Acidon 12-01-2022 Lactate [Moles/Vol] 0.5 mmol/L Normal 0.5-2.2 [facility] Comment on above: Result Comment: PERF ORMED BY: [facility] [address] [place] [address] PATHOLOGIST VOLUNTEER RECRUITER IAN ACE M.D. Performed By: #### G LULS #### Point of Care testing , Leukocytes [#/volume] correc julia for nucleated erythrocytes in Blood by Automated counOrdered By: Laith Warner on 12-01-2022 WBC corrected for nucl RBC Auto (Bld) [#/Vol] 7.0 10*3/uL 3.8-11.6 [facility] Lymphocytes Auto (Bld) [#/Vo l]Ordered By: Laith Warner on 12-01-2022 Lymphocytes (Bld) [#/Vol] 0.8 10*3/uL 1.00-4.8 [facility] Lymphocytes/100 WBC Auto (Bl d)Ordered By: Laith Warner on 12-01-2022 Lymphocytes/100 WBC (Bld) 11.6 % . [facility] MCH Auto (RBC) [Entitic mass ]Ordered By: Laith Warner on 12-01-2022 MCH (RBC) [Entitic mass] 26.0 pg 24.7-34.3 [facility] MCHC Auto (RBC) [Mass/Vol]Or dered By: Laith Warner on 12-01-2022 MCHC (RBC) [Mass/Vol] 32.5 g/dL 32.0-35.0 [facility] MCV Auto (RBC) [Entitic vol] Ordered By: Laith Warner on 12-01-2022 MCV (RBC) [Entitic vol] 80.2 fL 80-100 [facility] Monocyte distribution width [Entitic volume] in Blood by AutomatedOrdered By: Laith Warner on 12-01-2022 Monocyte distribution width Auto (Bld) [Entitic vol] 17.78 % 0.00-20.00 [facility] Monocytes Auto (Bld) [#/Vol] Ordered By: Laith Warner on 12-01-2022 Monocytes (Bld) [#/Vol] 0.6 10*3/uL 0.0-0.8 [facility] Monocytes/100 WBC Auto (Bld) Ordered By: Laith Warner on 12-01-2022 Monocytes/100 WBC (Bld) 8.3 % . [facility] Neutrophils Auto (Bld) [#/Vo l]Ordered By: Laith Warner on 12-01-2022 Neutrophils (Bld) [#/Vol] 5.1 10*3/uL 1.8-7.7 [facility] Neutrophils/100 WBC Auto (Bl d)Ordered By: Laith Warner on 12-01-2022 Neutrophils/100 WBC (Bld) 73.8 % . [facility] No Panel InformationOrdered By: Laith Warner on 12-01-2022 Estimated GFR (CKD-EPI) > 60.0 mL/Min [facility] Creatinine Clearance (Chem 95.60 [facility] Nucleated erythrocytes [Pres ence] in Blood by Automated countOrdered By: Laith Warner on 12-01-2022 Nucleated RBC Auto Ql (Bld) 0.1 /100{WBC} 0-0.5 [facility] Platelet mean volume Auto (B ld) [Entitic vol]Ordered By: Laith Warner on 12-01-2022 Platelet mean volume (Bld) [Entitic vol] 7.8 fL 6.3-10.7 [facility] Platelets Auto (Bld) [#/Vol] Ordered By: Laith Warner on 12-01-2022 Platelets (Bld) [#/Vol] 228 10*3/uL 150-450 [facility] Potassium [Moles/volume] in Serum or PlasmaOrdered By: Laith Warner on 12-01-2022 Potassium [Moles/Vol] 3.6 mmol/L 3.5-5.1 [facility] Protein [Mass/volume] in Ser um or PlasmaOrdered By: Laith Warner on 12-01-2022 Protein [Mass/Vol] 6.8 g/dL 6.4-8.9 [facility] RBC Auto (Bld) [#/Vol]Ordere d By: Laith Warner on 12-01-2022 RBC (Bld) [#/Vol] 4.43 10*6/uL 3.60-5.00 [facility] Serum or plasma albumin/glob ulin mass ratioOrdered By: Laith Warner on 12-01-2022 Albumin/Globulin [Mass ratio] 1.6 {ratio} [facility] Serum or plasma anion gap de terminationOrdered By: Laith Warner on 12-01-2022 Anion gap [Moles/Vol] 11.3 mmol/L 6.0-15.0 [facility] Sodium [Moles/volume] in Ser um or PlasmaOrdered By: Laith Warner on 12-01-2022 Sodium [Moles/Vol] 141 mmol/L 136-145 [facility] Urea nitrogen [Mass/volume] in Serum or PlasmaOrdered By: Laith Warner on 12-01-2022 Urea nitrogen [Mass/Vol] 24 mg/dL 7-25 [facility] WBC Auto (Bld) [#/Vol]Ordere d By: Laith Warner on 12-01-2022 WBC (Bld) [#/Vol] 7.0 10*3/uL 3.8-11.6 [facility] Alanine aminotransferase [En zymatic activity/volume] in Serum or PlasmaOrdered By: Jhonatan Crowell on 11-05-2022 ALT [Catalytic activity/Vol] 20 U/L 7-52 [facility] Albumin [Mass/volume] in Ser um or Plasma by Bromocresol green (BCG) dye binding methoOrdered By: Jhonatan Crowell on 11-05-2022 Albumin BCG dye [Mass/Vol] 3.9 g/dL 3.5-5.7 [facility] Alkaline phosphatase [Enzyma tic activity/volume] in Serum or PlasmaOrdered By: Jhonatan Crowell on 11-05-2022 ALP [Catalytic activity/Vol] 77 U/L 34-104 [facility] Aspartate aminotransferase [ Enzymatic activity/volume] in Serum or PlasmaOrdered By: Jhonatan Crowell on 11-05-2022 AST [Catalytic activity/Vol] 22 U/L 13-39 [facility] Bacterial blood cultureOrder ed By: Jhonatan Crowell on 11-05-2022 Bacteria identified Cx Nom (Bld) NO GROWTH 5 DAYS [facility] Basophils Auto (Bld) [#/Vol] Ordered By: Jhonatan Crowell on 11-05-2022 Basophils (Bld) [#/Vol] 0.0 10*3/uL 0.0-0.2 [facility] Basophils/100 WBC Auto (Bld) Ordered By: Jhonatan Crowell on 11-05-2022 Basophils/100 WBC (Bld) 0.6 % . [facility] Bilirubin.total [Mass/volume ] in Serum or PlasmaOrdered By: Jhonatan Crowell on 11-05-2022 Bilirubin [Mass/Vol] 0.5 mg/dL 0.3-1.0 [facility] Blood Cultureon 11-05-2022 Bacteria identified Cx Nom (Bld) NO GROWTH 5 DAYS PERFORMED BY: [place] [address] PATHOLOGIST VOLUNTEER RECRUITER IAN ACE M.D. [facility] Comment on above: Performed By: #### L ACTIC, CMP, CBC #### [facility] [address] [place] [address] Bacteria identified Cx Nom (Bld) NO GROWTH 5 DAYS PERFORMED BY: [place] [address] PATHOLOGIST VOLUNTEER RECRUITER IAN ACE M.D. [facility] Comment on above: Performed By: #### L ACTIC, CMP, CBC #### [facility] [address] [place] [address] [place] Calcium [Mass/volume] in Ser um or PlasmaOrdered By: Jhonatan Crowell on 11-05-2022 Calcium [Mass/Vol] 8.9 mg/dL 8.6-10.3 [facility] Carbon dioxide, total [Moles /volume] in Serum or PlasmaOrdered By: Jhonatan Crowell on 11-05-2022 CO2 [Moles/Vol] 28.5 mmol/L 21.0-31.0 [facility] Chloride [Moles/volume] in S marivel or PlasmaOrdered By: Jhonatan Crowell on 11-05-2022 Chloride [Moles/Vol] 106 mmol/L 98-107 [facility] Complete Blood Count Auto Di ffon 11-05-2022 Basophils (Bld) [#/Vol] 0.0 10*3/uL Normal 0.0-0.2 [facility] Comment on above: Result Comment: PERF ORMED BY: [place] [address] PATHOLOGIST VOLUNTEER RECRUITER IAN ACE M.D. Performed By: #### L ACTIC, CMP, CBC #### [facility] [address] [place] [address] Basophils/100 WBC (Bld) 0.6 % Normal . [facility] Comment on above: Performed By: #### L ACTIC, CMP, CBC #### [facility] [address] [place] [address] [place] Eosinophils (Bld) [#/Vol] 0.2 10*3/uL Normal 0.0-0.45 [facility] Comment on above: Performed By: #### L ACTIC, CMP, CBC #### [address] Eosinophils/100 WBC (Bld) 2.9 % Normal . [facility] Comment on above: Performed By: #### L ACTIC, CMP, CBC #### [facility] [address] [place] [address] Erythrocyte distribution width (RBC) [Ratio] 16.7 % High 11.9-15.3 [facility] Comment on above: Performed By: #### L ACTIC, CMP, CBC #### [facility] [address] [place] [address] Hematocrit (Bld) [Volume fraction] 37.5 % Normal 34.0-46.4 [facility] Comment on above: Performed By: #### L ACTIC, CMP, CBC #### [facility] [address] Hemoglobin (Bld) [Mass/Vol] 12.2 g/dL Normal 11.8-15.4 [facility] Comment on above: Performed By: #### L ACTIC, CMP, CBC #### [address] Lymphocytes (Bld) [#/Vol] 0.8 10*3/uL Low 1.00-4.8 [facility] Comment on above: Performed By: #### L ACTIC, CMP, CBC #### [address] Lymphocytes/100 WBC (Bld) 11.3 % Normal . [facility] Comment on above: Performed By: #### L ACTIC, CMP, CBC #### [address] MCH (RBC) [Entitic mass] 25.8 pg Normal 24.7-34.3 [facility] Comment on above: Performed By: #### L ACTIC, CMP, CBC #### [address] MCV (RBC) [Entitic vol] 79.3 fL Low 80-100 [facility] Comment on above: Performed By: #### L ACTIC, CMP, CBC #### [address] Mean Corpuscular HGB Conc 32.5 g/dL Normal 32.0-35.0 [facility] Comment on above: Performed By: #### L ACTIC, CMP, CBC #### [place] [address] [place] Monocytes (Bld) [#/Vol] 0.5 10*3/uL Normal 0.0-0.8 [facility] Comment on above: Performed By: #### L ACTIC, CMP, CBC #### [place] [address] [place] Monocytes/100 WBC (Bld) 16.42 % Normal 0.00-20.00 [facility] Comment on above: Performed By: #### L ACTIC, CMP, CBC #### [address] Monocytes/100 WBC (Bld) 7.1 % Normal . [facility] Comment on above: Performed By: #### L ACTIC, CMP, CBC #### [address] Neutrophils (Bld) [#/Vol] 5.4 10*3/uL Normal 1.8-7.7 [facility] Comment on above: Performed By: #### L ACTIC, CMP, CBC #### [address] Neutrophils/100 WBC (Bld) 78.1 % Normal . [facility] Comment on above: Performed By: #### L ACTIC, CMP, CBC #### [address] NRBC% 0.1 /100{WBC} Normal 0-0.5 [facility] Comment on above: Performed By: #### L ACTIC, CMP, CBC #### [address] Platelet mean volume (Bld) [Entitic vol] 8.1 fL Normal 6.3-10.7 [facility] Comment on above: Performed By: #### L ACTIC, CMP, CBC #### [address] Platelets (Bld) [#/Vol] 233 10*3/uL Normal 150-450 [facility] Comment on above: Performed By: #### L ACTIC, CMP, CBC #### [place] [address] [place] RBC (Bld) [#/Vol] 4.73 10*6/uL Normal 3.60-5.00 [facility] Comment on above: Performed By: #### L ACTIC, CMP, CBC #### [address] [place] [address] [place] WBC (Bld) [#/Vol] 6.9 10*3/uL Normal 3.8-11.6 [facility] Comment on above: Performed By: #### L ACTIC, CMP, CBC #### [address] Comprehensive Metabolic Pane jeremy 11-05-2022 Albumin [Mass/Vol] 3.9 g/dL Normal 3.5-5.7 [facility] Comment on above: Performed By: #### L ACTIC, CMP, CBC #### [address] Albumin/Globulin [Mass ratio] 1.3 {ratio} Normal [facility] Comment on above: Performed By: #### L ACTIC, CMP, CBC #### [address] ALP [Catalytic activity/Vol] 77 U/L Normal 34-104 [facility] Comment on above: Performed By: #### L ACTIC, CMP, CBC #### [address] ALT [Catalytic activity/Vol] 20 U/L Normal 7-52 [facility] Comment on above: Performed By: #### L ACTIC, CMP, CBC #### [address] Anion gap [Moles/Vol] 10.6 mmol/L Normal 6.0-15.0 [facility] Comment on above: Performed By: #### L ACTIC, CMP, CBC #### [address] AST [Catalytic activity/Vol] 22 U/L Normal 13-39 [facility] Comment on above: Performed By: #### L ACTIC, CMP, CBC #### [address] Bilirubin [Mass/Vol] 0.5 mg/dL Normal 0.3-1.0 [facility] Comment on above: Performed By: #### L ACTIC, CMP, CBC #### [facility] [address] Calcium [Mass/Vol] 8.9 mg/dL Normal 8.6-10.3 [facility] Comment on above: Performed By: #### L ACTIC, CMP, CBC #### [facility] [address] Chloride [Moles/Vol] 106 mmol/L Normal 98-107 [facility] Comment on above: Performed By: #### L ACTIC, CMP, CBC #### [facility] [address] CO2 [Moles/Vol] 28.5 mmol/L Normal 21.0-31.0 [facility] Comment on above: Performed By: #### L ACTIC, CMP, CBC #### [facility] [address] Creatinine [Mass/Vol] 0.71 mg/dL Normal 0.60-1.20 [facility] Comment on above: Performed By: #### L ACTIC, CMP, CBC #### [facility] [address] [place] [address] [place] Creatinine Clr Calc Pharmacy 100.16 [facility] Comment on above: Result Comment: PERF ORMED BY: [place] [address] PATHOLOGIST VOLUNTEER RECRUITER IAN ACE M.D. Performed By: #### L ACTIC, CMP, CBC #### [facility] [address] GFR/1.73 sq M.predicted MDRD (S/P/Bld) [Vol rate/Area] mL/min/{1.73_m2} [facility] Comment on above: Performed By: #### L ACTIC, CMP, CBC #### [facility] [address] Globulin (S) [Mass/Vol] 3.0 g/dL [facility] Comment on above: Performed By: #### L ACTIC, CMP, CBC #### [facility] [address] Glucose [Mass/Vol] 92 mg/dL Normal 70-100 [facility] Comment on above: Result Comment: [facility] Glucose Reference Range is dependent on time and content of last meal. Glucose of more than 200 mg/dL in a nonstressed, ambulatory subject supports the diagnosis of Diabetes Mellitus. ADA recommended reference range Performed By: #### L ACTIC CMP, CBC #### [facility] [address] Potassium [Moles/Vol] 4.1 mmol/L Normal 3.5-5.1 [facility] Comment on above: Performed By: #### L VITOR CMP, CBC #### [address] Protein [Mass/Vol] 6.9 g/dL Normal 6.4-8.9 [facility] Comment on above: Performed By: #### L ACTPERCY CMP, CBC #### [address] Sodium [Moles/Vol] 141 mmol/L Normal 136-145 [facility] Comment on above: Performed By: #### L VITOR CMP, CBC #### [place] [address] [place] Urea nitrogen [Mass/Vol] 18 mg/dL Normal 7-25 [facility] Comment on above: Performed By: #### L ACTPERCY CMP, CBC #### [facility] [address] [place] [address] Creatinine [Mass/volume] in Serum or PlasmaOrdered By: Jhonatan Crowell on 11-05-2022 Creatinine [Mass/Vol] 0.71 mg/dL 0.60-1.20 [facility] Eosinophils Auto (Bld) [#/Vo l]Ordered By: Jhonatan Crowell on 11-05-2022 Eosinophils (Bld) [#/Vol] 0.2 10*3/uL 0.0-0.45 [facility] Eosinophils/100 WBC Auto (Bl d)Ordered By: Jhonatan Crowell on 11-05-2022 Eosinophils/100 WBC (Bld) 2.9 % . [facility] Erythrocyte distribution wid th Auto (RBC) [Ratio]Ordered By: Jhonatan Crowell on 11-05-2022 Erythrocyte distribution width (RBC) [Ratio] 16.7 % 11.9-15.3 [facility] Globulin Calc (S) [Mass/Vol] Ordered By: Jhonatan Crowell on 11-05-2022 Globulin (S) [Mass/Vol] 3.0 g/dL [facility] Glucose [Mass/volume] in Ser um or PlasmaOrdered By: Jhonatan Crowell on 11-05-2022 Glucose [Mass/Vol] 92 mg/dL 70-100 [facility] Comment on above: ADA recommended refe rence rangeRandom Glucose Reference Range is dependent on time and content of last meal. Glucose of more than 200 mg/dL in a nonstressed, ambulatory subject supports the diagnosis of Diabetes Mellitus. Hematocrit Auto (Bld) [Volum e fraction]Ordered By: Jhonatan Crowell on 11-05-2022 Hematocrit (Bld) [Volume fraction] 37.5 % 34.0-46.4 [facility] Hemoglobin [Mass/volume] in BloodOrdered By: Jhonatan Crowell on 11-05-2022 Hemoglobin (Bld) [Mass/Vol] 12.2 g/dL 11.8-15.4 [facility] Leukocytes [#/volume] correc julia for nucleated erythrocytes in Blood by Automated counOrdered By: Jhonatan Crowell on 11-05-2022 WBC corrected for nucl RBC Auto (Bld) [#/Vol] 6.9 10*3/uL 3.8-11.6 [facility] Lymphocytes Auto (Bld) [#/Vo l]Ordered By: Jhonatan Crowell on 11-05-2022 Lymphocytes (Bld) [#/Vol] 0.8 10*3/uL 1.00-4.8 [facility] Lymphocytes/100 WBC Auto (Bl d)Ordered By: Jhonatan Crowell on 11-05-2022 Lymphocytes/100 WBC (Bld) 11.3 % . [facility] MCH Auto (RBC) [Entitic mass ]Ordered By: Jhonatan Crowell on 11-05-2022 MCH (RBC) [Entitic mass] 25.8 pg 24.7-34.3 [facility] MCHC Auto (RBC) [Mass/Vol]Or dered By: Jhonatan Crowell on 11-05-2022 MCHC (RBC) [Mass/Vol] 32.5 g/dL 32.0-35.0 [facility] MCV Auto (RBC) [Entitic vol] Ordered By: Jhonatan Crowell on 11-05-2022 MCV (RBC) [Entitic vol] 79.3 fL 80-100 [facility] Monocyte distribution width [Entitic volume] in Blood by AutomatedOrdered By: Jhonatan Crowell on 11-05-2022 Monocyte distribution width Auto (Bld) [Entitic vol] 16.42 % 0.00-20.00 [facility] Monocytes Auto (Bld) [#/Vol] Ordered By: Jhonatan Crowell on 11-05-2022 Monocytes (Bld) [#/Vol] 0.5 10*3/uL 0.0-0.8 [facility] Monocytes/100 WBC Auto (Bld) Ordered By: Jhonatan Crowell on 11-05-2022 Monocytes/100 WBC (Bld) 7.1 % . [facility] Neutrophils Auto (Bld) [#/Vo l]Ordered By: Jhonatan Crowell on 11-05-2022 Neutrophils (Bld) [#/Vol] 5.4 10*3/uL 1.8-7.7 [facility] Neutrophils/100 WBC Auto (Bl d)Ordered By: Jhonatan Crowell on 11-05-2022 Neutrophils/100 WBC (Bld) 78.1 % . [facility] No Panel InformationOrdered By: Jhonatan Crowell on 11-05-2022 Estimated GFR (CKD-EPI) > 60.0 mL/Min [facility] Creatinine Clearance (Chem 100.16 [facility] Nucleated erythrocytes [Pres ence] in Blood by Automated countOrdered By: Jhonatan Crowell on 11-05-2022 Nucleated RBC Auto Ql (Bld) 0.1 /100{WBC} 0-0.5 [facility] Platelet mean volume Auto (B ld) [Entitic vol]Ordered By: Jhonatan Crowell on 11-05-2022 Platelet mean volume (Bld) [Entitic vol] 8.1 fL 6.3-10.7 [facility] Platelets Auto (Bld) [#/Vol] Ordered By: Jhonatan Crowell on 11-05-2022 Platelets (Bld) [#/Vol] 233 10*3/uL 150-450 [facility] Potassium [Moles/volume] in Serum or PlasmaOrdered By: Jhonatan Crowell on 11-05-2022 Potassium [Moles/Vol] 4.1 mmol/L 3.5-5.1 [facility] Protein [Mass/volume] in Ser um or PlasmaOrdered By: Jhonatan Crowell on 11-05-2022 Protein [Mass/Vol] 6.9 g/dL 6.4-8.9 [facility] RBC Auto (Bld) [#/Vol]Ordere d By: Jhonatan Crowell on 11-05-2022 RBC (Bld) [#/Vol] 4.73 10*6/uL 3.60-5.00 [facility] Serum or plasma albumin/glob ulin mass ratioOrdered By: Jhonatan Crowell on 11-05-2022 Albumin/Globulin [Mass ratio] 1.3 {ratio} [facility] Serum or plasma anion gap de terminationOrdered By: Jhonatan Crowell on 11-05-2022 Anion gap [Moles/Vol] 10.6 mmol/L 6.0-15.0 [facility] Sodium [Moles/volume] in Ser um or PlasmaOrdered By: Jhonatan Crowell on 11-05-2022 Sodium [Moles/Vol] 141 mmol/L 136-145 [facility] Urea nitrogen [Mass/volume] in Serum or PlasmaOrdered By: Jhonatan Crowell on 11-05-2022 Urea nitrogen [Mass/Vol] 18 mg/dL 7-25 [facility] WBC Auto (Bld) [#/Vol]Ordere d By: Jhonatan Crowell on 11-05-2022 WBC (Bld) [#/Vol] 6.9 10*3/uL 3.8-11.6 [facility] XR tibia fibula LT 2V*on XR tibia fibula LT 2V* [facility] [address] [place] [address] [place] [address] XRay Report Signed Patient: [place] Cesar MR#: [id number] : 1955 Acct:[id number] Age/Sex: 66 / F ADM Date: 11/05/22 [...] Padmini Bethea M.D.11/05/2022 12:27 PM Dictation Location: [place] [address] Transcribed By: MARIA VICTORIA 11/05/22 1227 Dictated By: Padmini Bethea MD 11/05/22 1225 Signed By: 11/05/22 1227 Normal [facility] Alanine aminotransferase [En zymatic activity/volume] in Serum or PlasmaOrdered By: Gerald Theodore on 10-12-2022 ALT [Catalytic activity/Vol] 20 U/L 7-52 [facility] Albumin [Mass/volume] in Ser um or Plasma by Bromocresol green (BCG) dye binding methoOrdered By: Gerald Theodore on 10-12-2022 Albumin BCG dye [Mass/Vol] 3.5 g/dL 3.5-5.7 [facility] Alkaline phosphatase [Enzyma tic activity/volume] in Serum or PlasmaOrdered By: Gerald Theodore on 10-12-2022 ALP [Catalytic activity/Vol] 67 U/L 34-104 [facility] Aspartate aminotransferase [ Enzymatic activity/volume] in Serum or PlasmaOrdered By: Gerald Theodore on 10-12-2022 AST [Catalytic activity/Vol] 23 U/L 13-39 [facility] Bacterial blood cultureOrder ed By: Gerald Theodore on 10-12-2022 Bacteria identified Cx Nom (Bld) NO GROWTH 5 DAYS [facility] Basophils Auto (Bld) [#/Vol] Ordered By: Gerald Theodore on 10-12-2022 Basophils (Bld) [#/Vol] 0.0 10*3/uL 0.0-0.2 [facility] Basophils/100 WBC Auto (Bld) Ordered By: Gerald Theodore on 10-12-2022 Basophils/100 WBC (Bld) 0.5 % . [facility] Bilirubin.total [Mass/volume ] in Serum or PlasmaOrdered By: Gerald Theodore on 10-12-2022 Bilirubin [Mass/Vol] 0.4 mg/dL 0.3-1.0 [facility] Blood Cultureon 10-12-2022 Bacteria identified Cx Nom (Bld) NO GROWTH 5 DAYS PERFORMED BY: [place] [address] PATHOLOGIST VOLUNTEER RECRUITER IAN ACE M.D. [facility] Comment on above: Performed By: #### C UBLD, CMP, CBC #### [facility] [address] [place] [address] [place] C reactive protein [Mass/vol ume] in Serum or PlasmaOrdered By: Gerald Theodore on 10-12-2022 CRP [Mass/Vol] 1.7 mg/dL 0.0-0.5 [facility] C-Reactive Proteinon 023 C-Reactive Protein 1.7 mg/dL High 0.0-0.5 [facility] Comment on above: Result Comment: PERF ORMED BY: [place] [address] PATHOLOGIST VOLUNTEER RECRUITER IAN ACE M.D. Performed By: #### C UBLD, CMP, CBC #### [facility] [address] [place], [place] [id number] [place] Calcium [Mass/volume] in Ser um or PlasmaOrdered By: Gerald Theodore on 10-12-2022 Calcium [Mass/Vol] 8.4 mg/dL 8.6-10.3 [facility] Carbon dioxide, total [Moles /volume] in Serum or PlasmaOrdered By: Gerald Theodore on 10-12-2022 CO2 [Moles/Vol] 28.5 mmol/L 21.0-31.0 [facility] Chloride [Moles/volume] in S marivel or PlasmaOrdered By: Gerald Theodore on 10-12-2022 Chloride [Moles/Vol] 105 mmol/L 98-107 [facility] Complete Blood Count Auto Di ffon 10-12-2022 Basophils (Bld) [#/Vol] 0.0 10*3/uL Normal 0.0-0.2 [facility] Comment on above: Performed By: #### C UBLD, CMP, CBC #### [facility] [address] [place] [address] [place] Basophils/100 WBC (Bld) 0.5 % Normal . [facility] Comment on above: Performed By: #### C UBLD, CMP, CBC #### [facility] [address] [place] [address] [place] Eosinophils (Bld) [#/Vol] 0.2 10*3/uL Normal 0.0-0.45 [facility] Comment on above: Performed By: #### C UBLD, CMP, CBC #### [facility] [address] [place] [address] [place] Eosinophils/100 WBC (Bld) 1.8 % Normal . [facility] Comment on above: Performed By: #### C UBLD, CMP, CBC #### [facility] [address] [place] [address] [place] Erythrocyte distribution width (RBC) [Ratio] 16.3 % High 11.9-15.3 [facility] Comment on above: Performed By: #### C UBLD, CMP, CBC #### [facility] [address] [place] [address] [place] Hematocrit (Bld) [Volume fraction] 35.2 % Normal 34.0-46.4 [facility] Comment on above: Performed By: #### C UBLD, CMP, CBC #### [address] Hemoglobin (Bld) [Mass/Vol] 11.2 g/dL Low 11.8-15.4 [facility] Comment on above: Performed By: #### C UBLD, CMP, CBC #### [address] Lymphocytes (Bld) [#/Vol] 0.8 10*3/uL Low 1.00-4.8 [facility] Comment on above: Performed By: #### C UBLD, CMP, CBC #### [address] Lymphocytes/100 WBC (Bld) 9.6 % Normal . [facility] Comment on above: Performed By: #### C UBLD, CMP, CBC #### [address] MCH (RBC) [Entitic mass] 25.5 pg Normal 24.7-34.3 [facility] Comment on above: Performed By: #### C UBLD, CMP, CBC #### [address] MCV (RBC) [Entitic vol] 80.1 fL Normal 80-100 [facility] Comment on above: Performed By: #### C UBLD, CMP, CBC #### [address] Mean Corpuscular HGB Conc 31.8 g/dL Low 32.0-35.0 [facility] Comment on above: Performed By: #### C UBLD, CMP, CBC #### [address] Monocytes (Bld) [#/Vol] 0.7 10*3/uL Normal 0.0-0.8 [facility] Comment on above: Performed By: #### C UBLD, CMP, CBC #### [place] [address] [place] Monocytes/100 WBC (Bld) 14.89 % Normal 0.00-20.00 [facility] Comment on above: Performed By: #### C UBLD, CMP, CBC #### [address] Monocytes/100 WBC (Bld) 7.9 % Normal . [facility] Comment on above: Performed By: #### C UBLD, CMP, CBC #### [address] Neutrophils (Bld) [#/Vol] 6.9 10*3/uL Normal 1.8-7.7 [facility] Comment on above: Performed By: #### C UBLD, CMP, CBC #### [address] Neutrophils/100 WBC (Bld) 80.2 % Normal . [facility] Comment on above: Performed By: #### C UBLD, CMP, CBC #### [address] NRBC% 0.1 /100{WBC} Normal 0-0.5 [facility] Comment on above: Performed By: #### C UBLD, CMP, CBC #### [address] Platelet mean volume (Bld) [Entitic vol] 7.6 fL Normal 6.3-10.7 [facility] Comment on above: Performed By: #### C UBLD, CMP, CBC #### [address] Platelets (Bld) [#/Vol] 215 10*3/uL Normal 150-450 [facility] Comment on above: Performed By: #### C UBLD, CMP, CBC #### [address] RBC (Bld) [#/Vol] 4.39 10*6/uL Normal 3.60-5.00 [facility] Comment on above: Performed By: #### C UBLD, CMP, CBC #### [facility] [address] WBC (Bld) [#/Vol] 8.6 10*3/uL Normal 3.8-11.6 [facility] Comment on above: Performed By: #### C UBLD, CMP, CBC #### [address] Comprehensive Metabolic Pane jeremy 10-12-2022 Albumin [Mass/Vol] 3.5 g/dL Normal 3.5-5.7 [facility] Comment on above: Performed By: #### C UBLD, CMP, CBC #### [address] Albumin/Globulin [Mass ratio] 1.4 {ratio} Normal [facility] Comment on above: Performed By: #### C UBLD, CMP, CBC #### [address] ALP [Catalytic activity/Vol] 67 U/L Normal 34-104 [facility] Comment on above: Performed By: #### C UBLD, CMP, CBC #### [address] ALT [Catalytic activity/Vol] 20 U/L Normal 7-52 [facility] Comment on above: Performed By: #### C UBLD, CMP, CBC #### [address] Anion gap [Moles/Vol] 11.1 mmol/L Normal 6.0-15.0 [facility] Comment on above: Performed By: #### C UBLD, CMP, CBC #### [address] AST [Catalytic activity/Vol] 23 U/L Normal 13-39 [facility] Comment on above: Performed By: #### C UBLD, CMP, CBC #### [address] Bilirubin [Mass/Vol] 0.4 mg/dL Normal 0.3-1.0 [facility] Comment on above: Performed By: #### C UBLD, CMP, CBC #### [facility] [address] [place] [address] [place] Calcium [Mass/Vol] 8.4 mg/dL Low 8.6-10.3 [facility] Comment on above: Performed By: #### C UBLD, CMP, CBC #### [facility] [address] [place] [address] [place] Chloride [Moles/Vol] 105 mmol/L Normal 98-107 [facility] Comment on above: Performed By: #### C UBLD, CMP, CBC #### [facility] [address] CO2 [Moles/Vol] 28.5 mmol/L Normal 21.0-31.0 [facility] Comment on above: Performed By: #### C UBLD, CMP, CBC #### [facility] [address] [place] [address] [place] Creatinine [Mass/Vol] 0.69 mg/dL Normal 0.60-1.20 [facility] Comment on above: Performed By: #### C UBLD, CMP, CBC #### [facility] [address] [place] [address] [place] Creatinine Clr Calc Pharmacy 101.06 [facility] Comment on above: Performed By: #### C UBLD, CMP, CBC #### [facility] [address] [place] [address] [place] GFR/1.73 sq M.predicted MDRD (S/P/Bld) [Vol rate/Area] mL/min/{1.73_m2} [facility] Comment on above: Performed By: #### C UBLD, CMP, CBC #### [facility] [address] [place] [address] [place] Globulin (S) [Mass/Vol] 2.5 g/dL [facility] Comment on above: Performed By: #### C UBLD, CMP, CBC #### [facility] [address] [place] [address] [place] Glucose [Mass/Vol] 92 mg/dL Normal 70-100 [facility] Comment on above: Result Comment: [place] Glucose Reference Range is dependent on time and content of last meal. Glucose of more than 200 mg/dL in a nonstressed, ambulatory subject supports the diagnosis of Diabetes Mellitus. ADA recommended reference range Performed By: #### C UBLD, CMP, CBC #### [facility] [address] Potassium [Moles/Vol] 3.6 mmol/L Normal 3.5-5.1 [facility] Comment on above: Performed By: #### C UBLD, CMP, CBC #### [facility] [address] Protein [Mass/Vol] 6.0 g/dL Low 6.4-8.9 [facility] Comment on above: Performed By: #### C UBLD, CMP, CBC #### [facility] [address] [place] [address] [place] Sodium [Moles/Vol] 141 mmol/L Normal 136-145 [facility] Comment on above: Performed By: #### C UBLD, CMP, CBC #### [facility] [address] [place] [address] [place] Urea nitrogen [Mass/Vol] 20 mg/dL Normal 7-25 [facility] Comment on above: Performed By: #### C UBLD, CMP, CBC #### [facility] [address] [place] [address] [place] Creatinine [Mass/volume] in Serum or PlasmaOrdered By: Gerald Theodore on 10-12-2022 Creatinine [Mass/Vol] 0.69 mg/dL 0.60-1.20 [facility] Eosinophils Auto (Bld) [#/Vo l]Ordered By: Gerald Theodore on 10-12-2022 Eosinophils (Bld) [#/Vol] 0.2 10*3/uL 0.0-0.45 [facility] Eosinophils/100 WBC Auto (Bl d)Ordered By: Gerald Theodore on 10-12-2022 Eosinophils/100 WBC (Bld) 1.8 % . [facility] Erythrocyte Sedimentation Ra emery 10-12-2022 ESR (Bld) [Velocity] 25 mm/h Normal 0-29 [facility] Comment on above: Result Comment: PERF ORMED BY: [facility] [address] [place] [address] PATHOLOGIST VOLUNTEER RECRUITER IAN ACE M.D. Performed By: #### C UBLD, CMP, CBC #### [facility] [address] Erythrocyte distribution wid th Auto (RBC) [Ratio]Ordered By: Gerald Theodore on 10-12-2022 Erythrocyte distribution width (RBC) [Ratio] 16.3 % 11.9-15.3 [facility] Erythrocyte sedimentation ra te by Photometric methodOrdered By: Gerald Theodore on 10-12-2022 ESR Photometric method (Bld) [Velocity] 25 mm/hr 0-29 [facility] Globulin Calc (S) [Mass/Vol] Ordered By: Gerald Theodore on 10-12-2022 Globulin (S) [Mass/Vol] 2.5 g/dL [facility] Glucose [Mass/volume] in Ser um or PlasmaOrdered By: Gerald Theodore on 10-12-2022 Glucose [Mass/Vol] 92 mg/dL 70-100 [facility] Comment on above: ADA recommended refe rence rangeRandom Glucose Reference Range is dependent on time and content of last meal. Glucose of more than 200 mg/dL in a nonstressed, ambulatory subject supports the diagnosis of Diabetes Mellitus. Hematocrit Auto (Bld) [Volum e fraction]Ordered By: Gerald Theodore on 10-12-2022 Hematocrit (Bld) [Volume fraction] 35.2 % 34.0-46.4 [facility] Hemoglobin [Mass/volume] in BloodOrdered By: Gerald Theodore on 10-12-2022 Hemoglobin (Bld) [Mass/Vol] 11.2 g/dL 11.8-15.4 [facility] [facility] Lactate [Moles/volume] in Se rum or PlasmaOrdered By: Gerald Theodore on 10-12-2022 Lactate [Moles/Vol] 0.6 mmol/L 0.5-2.2 [facility] Lactic Acidon 10-12-2022 Lactate [Moles/Vol] 0.6 mmol/L Normal 0.5-2.2 [facility] Comment on above: Result Comment: PERF ORMED BY: [facility] [address] [place] [address] PATHOLOGIST VOLUNTEER RECRUITER IAN ACE M.D. Performed By: #### C UBLD, CMP, CBC #### [facility] [address] Leukocytes [#/volume] correc julia for nucleated erythrocytes in Blood by Automated counOrdered By: Gerald Theodore on 10-12-2022 WBC corrected for nucl RBC Auto (Bld) [#/Vol] 8.6 10*3/uL 3.8-11.6 [facility] Lymphocytes Auto (Bld) [#/Vo l]Ordered By: Gerald Theodore on 10-12-2022 Lymphocytes (Bld) [#/Vol] 0.8 10*3/uL 1.00-4.8 [facility] Lymphocytes/100 WBC Auto (Bl d)Ordered By: Gerald Theodore on 10-12-2022 Lymphocytes/100 WBC (Bld) 9.6 % . [facility] MCH Auto (RBC) [Entitic mass ]Ordered By: Gerald Theodore on 10-12-2022 MCH (RBC) [Entitic mass] 25.5 pg 24.7-34.3 [facility] MCHC Auto (RBC) [Mass/Vol]Or dered By: Gerald Theodore on 10-12-2022 MCHC (RBC) [Mass/Vol] 31.8 g/dL 32.0-35.0 [facility] MCV Auto (RBC) [Entitic vol] Ordered By: Gerald Theodore on 10-12-2022 MCV (RBC) [Entitic vol] 80.1 fL 80-100 [facility] Monocyte distribution width [Entitic volume] in Blood by AutomatedOrdered By: Gerald Theodore on 10-12-2022 Monocyte distribution width Auto (Bld) [Entitic vol] 14.89 % 0.00-20.00 [facility] Monocytes Auto (Bld) [#/Vol] Ordered By: Gerald Theodore on 10-12-2022 Monocytes (Bld) [#/Vol] 0.7 10*3/uL 0.0-0.8 [facility] Monocytes/100 WBC Auto (Bld) Ordered By: Gerald Theodore on 10-12-2022 Monocytes/100 WBC (Bld) 7.9 % . [facility] Neutrophils Auto (Bld) [#/Vo l]Ordered By: Gerald Theodore on 10-12-2022 Neutrophils (Bld) [#/Vol] 6.9 10*3/uL 1.8-7.7 [facility] Neutrophils/100 WBC Auto (Bl d)Ordered By: Gerald Theodore on 10-12-2022 Neutrophils/100 WBC (Bld) 80.2 % . [facility] No Panel InformationOrdered By: Gerald Theodore on 10-12-2022 Estimated GFR (CKD-EPI) > 60.0 mL/Min [facility] Creatinine Clearance (Chem 101.06 [facility] Nucleated erythrocytes [Pres ence] in Blood by Automated countOrdered By: Gerald Theodore on 10-12-2022 Nucleated RBC Auto Ql (Bld) 0.1 /100{WBC} 0-0.5 [facility] Platelet mean volume Auto (B ld) [Entitic vol]Ordered By: Gerald Theodore on 10-12-2022 Platelet mean volume (Bld) [Entitic vol] 7.6 fL 6.3-10.7 [facility] Platelets Auto (Bld) [#/Vol] Ordered By: Gerald Theodore on 10-12-2022 Platelets (Bld) [#/Vol] 215 10*3/uL 150-450 [facility] Potassium [Moles/volume] in Serum or PlasmaOrdered By: Gerald Theodore on 10-12-2022 Potassium [Moles/Vol] 3.6 mmol/L 3.5-5.1 [facility] Protein [Mass/volume] in Ser um or PlasmaOrdered By: Gerald Theodore on 10-12-2022 Protein [Mass/Vol] 6.0 g/dL 6.4-8.9 [facility] RBC Auto (Bld) [#/Vol]Ordere d By: Gerald Theodore on 10-12-2022 RBC (Bld) [#/Vol] 4.39 10*6/uL 3.60-5.00 [facility] Serum or plasma albumin/glob ulin mass ratioOrdered By: Gerald Theodore on 10-12-2022 Albumin/Globulin [Mass ratio] 1.4 {ratio} [facility] Serum or plasma anion gap de terminationOrdered By: Gerald Theodore on 10-12-2022 Anion gap [Moles/Vol] 11.1 mmol/L 6.0-15.0 [facility] Sodium [Moles/volume] in Ser um or PlasmaOrdered By: Gerald Theodore on 10-12-2022 Sodium [Moles/Vol] 141 mmol/L 136-145 [facility] Urea nitrogen [Mass/volume] in Serum or PlasmaOrdered By: Gerald Theodore on 10-12-2022 Urea nitrogen [Mass/Vol] 20 mg/dL 7-25 [facility] WBC Auto (Bld) [#/Vol]Ordere d By: Gerald Theodore on 10-12-2022 WBC (Bld) [#/Vol] 8.6 10*3/uL 3.8-11.6 [facility] COVID Quick Testingon 2020 Result Positive [employer] [facility] [employer] Other Quick Fluon 06-06-2021 FLUAV Ab CF (S) [Titer] Negative [employer] [facility] [employer] Other FLUBV Ab CF (S) [Titer] Negative Merged With [facility] [employer] Other CNOVon 01-26-2017 CNOV Office Visit (CARDFT) ELIZABETH CESAR ([id number]) 1955 FDate Time Provider Department01/26/17 10:30 AM CARL TY During your visit today, we recorded the following information about you: Pulse Respiration Blood pressure Weight 71/minute 18/minute 162/82 145.2 kg Height 1.613 Rajesh Ty MD 01/26/2017 10:54 AM [facility] and [facility]y [facility] Department of Cardiovascular MedicineOUTPATIENT VISIT DATEAugus2016OUTPATIENT VISIT TYPENEW CONSULTATIONPRUNC HEALTH APPALACHIANRY CARE PHYSICIAN:Pepe Fermin, [address] [place] [address] [address]Nvxlk: [phone]: [phone] COMPLAINT:Palpitations and shortness of breathHISTORY OF PRESENT ILLNESS:[place]bania Cesar is a 61 year old female who presents today to [facility] care.History includes morbid obesity, lymphedema, remote [...] shortness of breath she notes yesterday 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 Morbid [...] or concerns.Carl Ty M.D.Marcus DickinsonDepartment of Cardiovascular MedicineAvita Health System Ontario Hospitalrt and Vascular InstituteBrenda Ville [address] [facility].[place], [place] [address]Zfirhf: [phone] Referring Provider: PEPE FERMIN [[id number]]Allergies As of Date: 01/26/2017(No Known Allergies)Date Reviewed: 01/26/2017Reviewed by: Mario Rodriguez (Eric) ERIC Awad - Fully AssessedReason for Visit: Shortness of Breath [227]Primary Visit Diagnosis:Essential hypertension [I10] Other Visit Diagnoses:Obesity, Class III, BMI 40-49.9 (morbid obesity) (HCC) [E66.01] Tobacco abuse [Z72.0] CHUCKIE (obstructive sleep apnea) [G47.33]Order(s):ECHO [496674] Order #: [id number]: 1 FUTUREProblem List As Of Date 01/26/2017 Noted Resolved Obesity, Class III, BMI >= 40 (morbid obesity) *INVALID FOR*Disposition: Return in about 2 months (around 03/28/2017).Follow-up and Disposition History RecordedEncounter Number: [id number] Status:Closed by CARL TY MD on 01/26/17 Normal [facility] PROGRESSon 01-23-2017 PROGRESS HNO ID: [id number] thor: Carl Art: (none)Author Type: PhysicianType: Progress NotesFiled: 01/26/2017 10:54 AMNote Text:Heart and Vascular InstituteRobnor-lea [facility] and [facility] Department of Cardiovascular MedicineOUTPATIENT VISIT DATEAugus2016OUTPATIENT VISIT TYPENEW CONSULTATIONPRIMARY CARE PHYSICIAN:Pepe Fermin, [id number] [facility] [address] [address]Lfwpl: [phone]: [phone] COMPLAINT:Palpitations and shortness of breathHISTORY OF PRESENT ILLNESS:Albania Cesar is a 61 year old female who presents today to [facility]. 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 Morbid [...] or concerns.Carl Ty M.D.Marcus Mims of Cardiovascular MedicineAvita Health System Ontario Hospitalrt and Vascular InstituteBrenda Ville [address].[place], [place] [address]Mhjerb: [phone] Normal [facility] Vital Signs Date Time Vital Sign Value Performing Clinician Facility 06-09-2023 14:00-0500 Body height 160.02 cm Abimbola Bran Other [facility] Other 06-09-2023 14:00-0500 Body mass index (BMI) [Ratio] 56.27 kg/m2 Abimbola Bran Other [facility] Other 06-09-2023 14:00-0500 Body temperature 98.6 [degF] Abimbola Bran Other [facility] Other 06-09-2023 14:00-0500 Body weight 144.11 kg Abimbola Bran Other [facility] Other 06-09-2023 14:00-0500 Diastolic blood pressure 72 mm[Hg] Abimbola Bran Other [facility] Other 06-09-2023 14:00-0500 SaO2% (BldA) [Mass fraction] 98 % Abimbola Bran Other [facility] Other 06-09-2023 14:00-0500 Systolic blood pressure 112 mm[Hg] Abimbola Bran Other [facility] Other 04-17-2023 12:27-0500 Body temperature 97.4 [degF] DO Abimbola Bran Work Phone: [facility] 04-17-2023 12:27-0500 Diastolic blood pressure 85 mm[Hg] DO Abimbola Bran Work Phone: [facility] 04-17-2023 12:27-0500 Heart rate 77 /min DO Abimbola Bran Work Phone: [facility] 04-17-2023 12:27-0500 Respiratory rate 18 /min DO Abimbola Bran Work Phone: [facility] 04-17-2023 12:27-0500 SaO2% (BldA) [Mass fraction] 98 % DO Abimbola Yina Work Phone: [facility] 04-17-2023 12:27-0500 Systolic blood pressure 131 mm[Hg] DO Abimbola Bran Work Phone: [facility] 04-17-2023 06:00-0500 Body weight 134 kg DO Abimbola Bran Work Phone: [facility] 04-16-2023 23:45-0500 Inhaled oxygen concentration 30 % DO Abimbola Yina Work Phone: [facility] 04-13-2023 15:46-0500 Body height 161.29 cm DO Abimbola Bran Work Phone: [facility] 04-10-2023 14:48-0400 Body temperature 97.5 [degF] DO Abimbola Yina Work Phone: [facility] 04-10-2023 14:48-0400 Diastolic blood pressure 85 mm[Hg] DO Abimbola Yina Work Phone: [facility] 04-10-2023 14:48-0400 Heart rate 86 /min DO Abimbola Yina Work Phone: [facility] 04-10-2023 14:48-0400 Respiratory rate 18 /min DO Abimbola Yina Work Phone: [facility] 04-10-2023 14:48-0400 SaO2% (BldA) [Mass fraction] 98 % DO Abimbola Bran Work Phone: [facility] 04-10-2023 14:48-0400 Systolic blood pressure 136 mm[Hg] DO Abimbola Bran Work Phone: [facility] 04-10-2023 10:11-0400 Body height 161.29 cm DO Abimbola Bran Work Phone: [facility] 04-10-2023 10:11-0400 Body weight 132.2 kg DO Abimbola Bran Work Phone: [facility] 04-07-2023 08:11-0400 Body temperature 97.1 [degF] DO Abimbola Bran Work Phone: [facility] 04-07-2023 08:11-0400 Diastolic blood pressure 95 mm[Hg] DO Abimbola Bran Work Phone: [facility] 04-07-2023 08:11-0400 Heart rate 86 /min DO Abimbola Bran Work Phone: [facility] 04-07-2023 08:11-0400 Respiratory rate 18 /min DO Abimbola Bran Work Phone: [facility] 04-07-2023 08:11-0400 SaO2% (BldA) [Mass fraction] 99 % DO Abimbola Bran Work Phone: [facility] 04-07-2023 08:11-0400 Systolic blood pressure 183 mm[Hg] DO Abimbola Bran Work Phone: [facility] 04-07-2023 08:08-0400 Body height 160.02 cm DO Abimbola Bran Work Phone: [facility] 04-07-2023 08:08-0400 Body weight 135.62 kg DO Abimbola Bran Work Phone: [facility] 02-24-2023 08:00-0400 Body height 160.02 cm Abimbola Bran Other [facility] Other 02-24-2023 08:00-0400 Body mass index (BMI) [Ratio] 54.02 kg/m2 Abimbola Bran Other [facility] Other 02-24-2023 08:00-0400 Body weight 138.35 kg Abimbola Bran Other [facility] Other 02-24-2023 08:00-0400 Diastolic blood pressure 82 mm[Hg] Abimbola Bran Other [facility] Other 02-24-2023 08:00-0400 Respiratory rate 18 /min Abimbola Bran Other [facility] Other 02-24-2023 08:00-0400 SaO2% (BldA) [Mass fraction] 97 % Abimbola Bran Other [facility] Other 02-24-2023 08:00-0400 Systolic blood pressure 122 mm[Hg] Abimbola Bran Other [facility] Other 02-03-2023 10:36-0400 Body height 160.02 cm PHYSICIAN NO [facility] 02-03-2023 10:36-0400 Body mass index (BMI) [Ratio] 59.3 kg/m2 PHYSICIAN NO [facility] 02-03-2023 10:36-0400 Body weight 151.95 kg PHYSICIAN NO [facility] 02-03-2023 09:30-0400 Body temperature 97.3 [degF] PHYSICIAN NO [facility] 02-03-2023 09:30-0400 Diastolic blood pressure 79 mm[Hg] PHYSICIAN NO [facility] 02-03-2023 09:30-0400 Heart rate 76 /min PHYSICIAN NO [facility] 02-03-2023 09:30-0400 Respiratory rate 20 /min PHYSICIAN NO [facility] 02-03-2023 09:30-0400 Systolic blood pressure 175 mm[Hg] PHYSICIAN NO [facility] 01-19-2023 08:30-0400 Body height 160.02 cm Abimbola Bran Other [facility] Other 01-19-2023 08:30-0400 Body mass index (BMI) [Ratio] 59.42 kg/m2 Abimbolaconnor Bran Other [facility] Other 01-19-2023 08:30-0400 Body temperature 98.3 [degF] Abimbolaconnor Bran Other [facility] Other 01-19-2023 08:30-0400 Body weight 152.18 kg Abimbolamirta Bran Other [facility] Other 01-19-2023 08:30-0400 Diastolic blood pressure 76 mm[Hg] Abimbolaconnor Bran Other [facility] Other 01-19-2023 08:30-0400 Respiratory rate 18 /min Abimbolamirta Bran Other [facility] Other 01-19-2023 08:30-0400 SaO2% (BldA) [Mass fraction] 97 % Abimbolaconnor Bran Other [facility] Other 01-19-2023 08:30-0400 Systolic blood pressure 120 mm[Hg] Abimbola Bran Other [facility] Other 12-31-2022 15:03-0400 Diastolic blood pressure 76 mm[Hg] PHYSICIAN NO [facility] 12-31-2022 15:03-0400 Heart rate 86 /min PHYSICIAN [facility] 12-31-2022 15:03-0400 Respiratory rate 20 /min PHYSICIAN NO [facility] 12-31-2022 15:03-0400 SaO2% (BldA) [Mass fraction] 96 % PHYSICIAN NO [facility] 12-31-2022 15:03-0400 Systolic blood pressure 166 mm[Hg] PHYSICIAN NO [facility] 12-31-2022 11:29-0400 Body height 160.02 cm PHYSICIAN NO [facility] 12-31-2022 11:29-0400 Body temperature 97.4 [degF] PHYSICIAN NO [facility] 12-31-2022 11:29-0400 Body weight 145.14 kg PHYSICIAN NO [facility] 12-29-2022 13:45-0400 Body height 160.02 cm Laith Carlson Other [facility] Other 12-29-2022 13:45-0400 Body mass index (BMI) [Ratio] 56.68 kg/m2 Laith Carlson Other [facility] Other 12-29-2022 13:45-0400 Body temperature 98.4 [degF] Laith Carlson Other [facility] Other 12-29-2022 13:45-0400 Body weight 145.15 kg Laith Carlson Other [facility] Other 12-29-2022 13:45-0400 Diastolic blood pressure 78 mm[Hg] Laith Carlson Other [facility] Other 12-29-2022 13:45-0400 Systolic blood pressure 153 mm[Hg] Laith Carlson Other [facility] Other 12-14-2022 01:34-0400 Diastolic blood pressure 80 mm[Hg] PHYSICIAN NO [facility] 12-14-2022 01:34-0400 Heart rate 75 /min PHYSICIAN NO [facility] 12-14-2022 01:34-0400 Respiratory rate 18 /min PHYSICIAN NO [facility] 12-14-2022 01:34-0400 SaO2% (BldA) [Mass fraction] 98 % PHYSICIAN NO [facility] 12-14-2022 01:34-0400 Systolic blood pressure 165 mm[Hg] PHYSICIAN NO [facility] 12-13-2022 23:53-0400 Body temperature 97.7 [degF] PHYSICIAN NO [facility] 12-13-2022 21:24-0400 Body height 160.02 cm PHYSICIAN NO [facility] 12-13-2022 21:24-0400 Body weight 153.5 kg PHYSICIAN NO [facility] 12-08-2022 08:18-0400 Diastolic blood pressure 53 mm[Hg] PHYSICIAN NO [facility] 12-08-2022 08:18-0400 Heart rate 56 /min PHYSICIAN NO [facility] 12-08-2022 08:18-0400 Systolic blood pressure 101 mm[Hg] PHYSICIAN NO [facility] 12-05-2022 08:22-0400 Body temperature 97.7 [degF] PHYSICIAN NO [facility] 12-02-2022 09:00-0400 Respiratory rate 18 /min PHYSICIAN NO [facility] 12-02-2022 09:00-0400 SaO2% (BldA) [Mass fraction] 96 % PHYSICIAN NO [facility] 12-01-2022 20:48-0400 Diastolic blood pressure 66 mm[Hg] PHYSICIAN NO [facility] 12-01-2022 20:48-0400 Heart rate 72 /min PHYSICIAN NO [facility] 12-01-2022 20:48-0400 Respiratory rate 21 /min PHYSICIAN NO [facility] 12-01-2022 20:48-0400 SaO2% (BldA) [Mass fraction] 97 % PHYSICIAN NO [facility] 12-01-2022 20:48-0400 Systolic blood pressure 137 mm[Hg] PHYSICIAN NO [facility] 12-01-2022 18:20-0400 Body height 160.02 cm PHYSICIAN NO [facility] 12-01-2022 18:20-0400 Body temperature 98.1 [degF] PHYSICIAN NO [facility] 12-01-2022 18:20-0400 Body weight 151.2 kg PHYSICIAN NO [facility] 11-24-2022 08:43-0400 Body height 160.02 cm PHYSICIAN NO [facility] 11-24-2022 08:43-0400 Body mass index (BMI) [Ratio] 58.4 kg/m2 PHYSICIAN NO [facility] 11-24-2022 08:43-0400 Body weight 149.68 kg PHYSICIAN NO [facility] 11-24-2022 08:27-0400 Body temperature 98.1 [degF] PHYSICIAN NO [facility] 11-24-2022 08:27-0400 Diastolic blood pressure 97 mm[Hg] PHYSICIAN NO [facility] 11-24-2022 08:27-0400 Heart rate 78 /min PHYSICIAN NO [facility] 11-24-2022 08:27-0400 Respiratory rate 24 /min PHYSICIAN NO [facility] 11-24-2022 08:27-0400 Systolic blood pressure 159 mm[Hg] PHYSICIAN NO [facility] 11-06-2022 10:30-0400 Body temperature 97.5 [degF] PHYSICIAN NO [facility] 11-06-2022 10:30-0400 Diastolic blood pressure 80 mm[Hg] PHYSICIAN NO [facility] 11-06-2022 10:30-0400 Heart rate 71 /min PHYSICIAN NO [facility] 11-06-2022 10:30-0400 Systolic blood pressure 146 mm[Hg] PHYSICIAN NO [facility] 11-05-2022 14:05-0400 Diastolic blood pressure 82 mm[Hg] PHYSICIAN NO [facility] 11-05-2022 14:05-0400 Heart rate 90 /min PHYSICIAN NO [facility] 11-05-2022 14:05-0400 Respiratory rate 18 /min PHYSICIAN NO [facility] 11-05-2022 14:05-0400 SaO2% (BldA) [Mass fraction] 92 % PHYSICIAN NO [facility] 11-05-2022 14:05-0400 Systolic blood pressure 180 mm[Hg] PHYSICIAN NO [facility] 11-05-2022 11:46-0400 Body height 161.29 cm PHYSICIAN NO [facility] 11-05-2022 11:46-0400 Body temperature 98 [degF] PHYSICIAN NO [facility] 11-05-2022 11:46-0400 Body weight 147.65 kg PHYSICIAN NO [facility] 10-30-2022 15:13-0400 Body temperature 98.6 [degF] PHYSICIAN NO [facility] 10-30-2022 15:13-0400 Diastolic blood pressure 95 mm[Hg] PHYSICIAN NO [facility] 10-30-2022 15:13-0400 Heart rate 86 /min PHYSICIAN NO [facility] 10-30-2022 15:13-0400 Respiratory rate 20 /min PHYSICIAN NO [facility] 10-30-2022 15:13-0400 Systolic blood pressure 186 mm[Hg] PHYSICIAN NO [facility] 10-21-2022 11:17-0400 Body height 160.02 cm PHYSICIAN NO [facility] 10-21-2022 11:17-0400 Body mass index (BMI) [Ratio] 58.4 kg/m2 PHYSICIAN NO [facility] 10-21-2022 11:17-0400 Body weight 149.68 kg PHYSICIAN NO [facility] 10-17-2022 20:25-0400 Body temperature 97.9 [degF] PHYSICIAN NO [facility] 10-17-2022 20:25-0400 Diastolic blood pressure 91 mm[Hg] PHYSICIAN NO [facility] 10-17-2022 20:25-0400 Heart rate 70 /min PHYSICIAN NO [facility] 10-17-2022 20:25-0400 Respiratory rate 17 /min PHYSICIAN NO [facility] 10-17-2022 20:25-0400 SaO2% (BldA) [Mass fraction] 95 % PHYSICIAN NO [facility] 10-17-2022 20:25-0400 Systolic blood pressure 165 mm[Hg] PHYSICIAN NO [facility] 10-12-2022 19:31-0400 Diastolic blood pressure 78 mm[Hg] PHYSICIAN NO [facility] 10-12-2022 19:31-0400 Heart rate 80 /min PHYSICIAN NO [facility] 10-12-2022 19:31-0400 Respiratory rate 18 /min PHYSICIAN NO [facility] 10-12-2022 19:31-0400 SaO2% (BldA) [Mass fraction] 98 % PHYSICIAN NO [facility] 10-12-2022 19:31-0400 Systolic blood pressure 138 mm[Hg] PHYSICIAN NO [facility] 10-12-2022 17:48-0400 Body height 160.02 cm PHYSICIAN NO [facility] 10-12-2022 17:48-0400 Body temperature 98.7 [degF] PHYSICIAN NO [facility] 10-12-2022 17:48-0400 Body weight 149.68 kg PHYSICIAN NO [facility] 06-06-2021 18:30-0500 Body height 160.02 cm Shayla Ginty Other [facility] Other 06-06-2021 18:30-0500 Body mass index (BMI) [Ratio] 51.37 kg/m2 Shayla Ginty Other [facility] Other 06-06-2021 18:30-0500 Body temperature 97.2 [degF] Shayla Ginty Other [facility] Other 06-06-2021 18:30-0500 Body weight 131.54 kg Shayla Ginty Other [facility] Other 06-06-2021 18:30-0500 Respiratory rate 18 /min Shayla Ginty Other [facility] Other 06-06-2021 18:30-0500 SaO2% (BldA) [Mass fraction] 93 % Shayla Ginty Other [facility] Other Encounters Encounter Date Encounter Type Care Provider Facility Start: 07-07-2023 End: 07-07-2023 ambulatory Abimbolamirta Bran Other [facility] Other Start: 07-07-2023 Telephone encounter Abimbola Bran [facility] Start: 06-15-2023 End: 06-15-2023 ambulatory Abimbolamirta Bran Other [facility] Other Start: 06-15-2023 Telephone encounter Abimbola Bran [facility] [place] Start: 06-09-2023 End: 06-09-2023 ambulatory Abimbolamirta Bran Other [facility] Other Start: 06-09-2023 Office outpatient visit 25 minutes Abimbolaconnor Bran [facility] [employer] [place] Start: 06-09-2023 Telephone encounter Abimbola Bran [facility] Start: 04-20-2023 End: 04-20-2023 ambulatory Abimbolamirta Bran Other [facility] Other Start: 04-20-2023 Telephone encounter Abimbola Bran [facility] Start: 04-10-2023 End: 04-17-2023 Evaluation and management of inpatient Laith Robyn Facility:[facility] Start: 04-10-2023 End: 04-17-2023 Evaluation and management of inpatient DO Abimbola Bran Work Phone: [facility] [place] [facility] Work Phone: Start: 04-07-2023 End: 04-07-2023 Emergency department patient visit Jhonatan Zuniga Mervat Facility:[facility] Start: 04-07-2023 End: 04-07-2023 Emergency department patient visit DO Abimbola Bran Work Phone: [facility]Emergency [facility] Work Phone: Start: 02-24-2023 End: 02-24-2023 ambulatory Abimbolamirta Bran Other [facility] Other Start: 02-24-2023 Office outpatient visit 15 minutes Abimbola Bran [facility] Start: 02-03-2023 End: 02-03-2023 ambulatory Abimbola Bran Facility:[facility] Start: 02-03-2023 End: 02-03-2023 ambulatory PHYSICIAN NO [facility] Work Phone: Start: 02-03-2023 End: 02-03-2023 Discharged Recurring PHYSICIAN NO [facility] [place] Work Phone: Start: 02-03-2023 [facility] Work Phone: Start: 02-02-2023 End: 02-03-2023 ambulatory Laith Carlson Facility:[facility] Start: 02-02-2023 End: 02-02-2023 ambulatory PHYSICIAN NO [facility] Work Phone: Start: 02-02-2023 End: 02-02-2023 Discharged Recurring PHYSICIAN NO [facility]-Infusion Therapy - O/P Work Phone: Start: 01-27-2023 End: 01-27-2023 ambulatory Abimbola Bran Other [facility] Other Start: 01-27-2023 Telephone encounter Abimbola Bran [employer] [place] Start: 01-20-2023 End: 01-20-2023 ambulatory Laith Carlson Other [facility] Other Start: 01-20-2023 Telephone encounter Laith Carlson FP [facility] Infectious Disease Start: 01-19-2023 End: 01-19-2023 ambulatory Abimbola Bran Other [facility] Other Start: 01-19-2023 Office outpatient ne w 45 minutes Abimbola Bran [facility] Start: 01-06-2023 End: 01-06-2023 ambulatory Laith Carlson Other [facility] Other Start: 01-06-2023 Telephone encounter Laith Carlson FP [facility] Infectious Disease Start: 12-31-2022 End: 12-31-2022 ambulatory Abimbola Bran Other [facility] Other Start: 12-31-2022 Telephone encounter Abimbola Bran [facility] [place] Start: 12-31-2022 End: 12-31-2022 Emergency department patient visit Abimbola Bran Facility:[facility] Start: 12-31-2022 End: 12-31-2022 Emergency department patient visit PHYSICIAN NO [facility] Work Phone: Start: 12-29-2022 End: 12-29-2022 ambulatory Laith Carlson Other [facility] Other Start: 12-29-2022 Office outpatient ne w 45 minutes Laith PANDYA Infectious Disease Start: 12-19-2022 End: 12-19-2022 ambulatory PHYSICIAN NO FAMILY Facility:[facility] Start: 12-19-2022 End: 12-19-2022 Discharged Recurring PHYSICIAN NO FAMILY [facility] [address] Start: 12-15-2022 End: 12-15-2022 ambulatory Abimbola Bran Other [facility] Other Start: 12-15-2022 Telephone encounter Abimbola Bran [employer] [place] Start: 12-13-2022 End: 12-14-2022 Emergency department patient visit Abimbola Bran Facility:[facility] Start: 12-13-2022 End: 12-14-2022 Emergency department patient visit PHYSICIAN NO FAMILY [facility] Work Phone: Start: 12-08-2022 End: 12-09-2022 ambulatory Laith Warner Facility:[facility] Start: 12-08-2022 End: 12-08-2022 Discharged Recurring PHYSICIAN NO [facility]-Infusion Therapy - O/P Work Phone: Start: 12-05-2022 Registered Recurring PHYSICIAN NO [facility] [address] Start: 12-01-2022 End: 12-01-2022 Emergency department patient visit Laith Warner Facility:[facility] Start: 12-01-2022 End: 12-01-2022 Emergency department patient visit PHYSICIAN NO [facility] Work Phone: Start: 11-28-2022 Registered Recurring PHYSICIAN NO [facility] [address] Start: 11-24-2022 End: 11-24-2022 ambulatory Evelyn Leon Facility:[facility] Start: 11-24-2022 End: 11-24-2022 Discharged Recurring PHYSICIAN NO [facility] [place] Work Phone: Start: 11-24-2022 Registered Recurring PHYSICIAN NO [facility] [place] Work Phone: Start: 11-07-2022 End: 11-07-2022 ambulatory PHYSICIAN NO FAMILY Facility:[facility] Start: 11-07-2022 End: 11-07-2022 Discharged Recurring PHYSICIAN NO [facility]Infusion Therapy - O/P Work Phone: Start: 11-07-2022 Registered Recurring PHYSICIAN NO [facility]Infusion Therapy - O/P Work Phone: Start: 11-05-2022 Registered Recurring PHYSICIAN NO [facility]Infusion Therapy - O/P Work Phone: Start: 11-05-2022 End: 11-05-2022 Emergency department patient visit PHYSICIAN NO FAMILY Facility:[facility] Start: 11-05-2022 End: 11-05-2022 Emergency department patient visit PHYSICIAN NO [facility] Work Phone: Start: 11-05-2022 Registered Recurring PHYSICIAN NO [facility] [address] Start: 10-30-2022 Registered Recurring PHYSICIAN NO [facility] [place] Work Phone: Start: 10-17-2022 End: 10-17-2022 ambulatory Gerald Saniya Theodore Facility:[facility] Start: 10-17-2022 End: 10-17-2022 ambulatory PHYSICIAN NO [facility] Work Phone: Start: 10-17-2022 End: 10-17-2022 Discharged Recurring PHYSICIAN NO [facility]Infusion Therapy - O/P Work Phone: Start: 10-17-2022 Registered Recurring PHYSICIAN NO [facility]Infusion Therapy - O/P Work Phone: Start: 10-12-2022 End: 10-12-2022 Emergency department patient visit Gerald Saniya Theodore Facility:[facility] Start: 10-12-2022 End: 10-12-2022 Emergency department patient visit PHYSICIAN NO [facility] Work Phone: Start: 06-06-2021 End: 06-06-2021 ambulatory Shayla Motta Other [facility] Start: 06-06-2021 Office outpatient visit 15 minutes Shayla Motta [facility] [place] Start: 01-26-2017 End: 02-03-2017 Ambulatory [facility] Procedures Date Procedure Procedure Detail Performing Clinician [...] Date Care Activity Detail Author Start: 04-16-2023 [facility] Start: 04-15-2023 Insertion of peripherally inserted central catheter [facility] Start: 04-13-2023 Referral to infectio us diseases physician [facility] Start: 04-10-2023 Hospital admission [facility] Start: 04-10-2023 [facility] Start: 04-10-2023 Aerobic microbial culture Superficial Wound Culture [facility] Start: 04-10-2023 Bacteria identified in Blood by Culture [facility] Start: 04-10-2023 Bacteria identified in Urine by Culture [facility] Start: 12-13-2022 Superficial Wound Culture Superficial Wound Culture [facility] Start: 12-01-2022 Bacteria identified in Blood by Culture [facility] Start: 11-05-2022 Bacteria identified in Blood by Culture [facility] Start: 10-12-2022 Bacteria identified in Blood by Culture [facility] Bacteria identified in Unspecified specimen by Aerobe culture [facility] Blood chemistry [facility] Patient Education [facility] Work Phone: Patient referral [facility] Work Phone: Immunizations Immunization Date Immunization Notes Care Provider Jean Paul rowland 01-19-2023 Prevnar 20 Abimbola Bran Other [facility] Other NEGATED: Highlighted row has not occurred!01-19-2023 influenza, seasonal, injectable Patient Objection Abimbola Bran Other [facility] Other Payers Date Payer Category Payer Unknown [id number] 2023 Unknown [id number] 2.16. [id number] 2022 Unknown [id number] 2022 Medicare [id number] 2022 Self-pay [id number] 2022 Unknown [id number] 2015 Unknown Brenda BC/BS BRIANNA [id number] 2 [id number] Unknown [id number] Unknown [id number] Unknown [id number] . [id number] Unknown [id number] 2.16.8 40.1.654682.3.579.2.531 Unknown [id number] 2.16.8 40.1.437273.3.579.2.531 Unknown [id number] 2.16.8 40.1.741084.3.579.2.531 Unknown [id number] 2.16.8 40.1.688653.3.579.2.531 Unknown [id number] 2.16.8 40.1.987327.3.579.2.531 Unknown [id number] 2.16.8 40.1.634641.3.579.2.531 Unknown [id number] 2.16.8 40.1.405448.3.579.2.531 Unknown [id number] 2.16.8 40.1.633518.3.579.2.531 Unknown [id number] 2.16.8 40.1.316911.3.579.2.531 Unknown [id number] 2.16.8 40.1.317640.3.579.2.531 Unknown [id number] 2.16.8 40.1.370079.3.579.2.531 Unknown [id number] 2.16.8 40.1.000894.3.579.2.531 Unknown [id number] 2.16.8 40.1.661212.3.579.2.531 Unknown [id number] 2.16.8 40.1.823936.3.579.2.531 Social History Date Type Detail Facility Sex Assigned At [facility] Start: 10-12-2022 End: 04-07-2023 Tobacco smoking status [facility] Never smoked tobacco (finding) [facility] Start: 1955 Sex Assigned At Female F [facility] Start: 11-05-2022 End: 04-13-2023 Tobacco smoking status [facility]IS Ex-smoker (finding) [facility] Goals Date Patient Goal Desired Activity /State Functional Status Date Assessment Result Facility 04-17-2023 Functional status Patient at Baseline [facility] Work Phone: 04-10-2023 Functional status Patient at Baseline [facility] Work Phone: Mental Status Date Assessment Result Facility 04-17-2023 Cognitive function Cognitive Sta tus Patient at Baseline [facility] Work Phone: 04-10-2023 Cognitive function Cognitive Sta tus Patient at Baseline [facility] Work Phone: Clinical Notes 06-06-2021 to 07-07-2023 Note Date & Type Note Facility 07-07-2023 Evaluation note Encounter Date Diagnosis Assessment Notes Jun, 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 Has significant pain with dressing changes, can [...] of furosemide, would greatly benefit form SCDs. [facility] Other 11-10-2023 Progress note Author Selvin Bey [facility] April 17, 2023 9:42am Note Date/Time April 17, 2023 9:42am [facility] [address] [place] [address] Hospitalist Progress Note Signed Patient: Albania Cesar MR#: [id number] : 1955 Acct:[id number] Age/Sex: 67 / F Adm Date: 3 Loc: Room: [address] [place] [address] Type: ADM IN Attending Dr: Selvin Bey [...] mg 04/16/23 20:26 Bisacodyl 10 Mg Supp.Rect MO 04/15/24 20:25 DAILY PRN Constipation Celecoxib 100 [...] Plan [facility] and intravenous antibiotic for [...] PRN, oxycodone 5 mg Q6H PRN, Tylenol jaiycl-myg-hooll. -Continue Celebrex 100 mg twice daily. Patient [...] consider gastric bypass Patient is moving to [facility] on discharge. IV antibiotics continued to maximize benefit of going to this facility. PICC line ordered and antibiotics switched to ertapenem. Documented By: Selvin Bey MD 04/17/23939 Signed By: <Electronically signed by Selvin Bey MD> 04/17/23941 [facility] Work Phone: 1(164) 845-545911-09-2023 Discharge summary Author Selvin Bey [facility] April 16, 2023 12:03pm Note Date/Time April 16, 2023 1 1:58am [facility] [address] [place] [address] Discharge Summary Signed Patient: Albania Cesar MR#: [id number] : 1955 Acct:[id number] Age/Sex: 67 / F Adm Date: 3 Loc: Room: [address] [place] [address]: Selvin Bey MD Copies to: [...] and treatment. Patient is also following at [place] regarding lymphedema and appears to be getting [...] hospital stay. [facility] PICC line placed and [...] ask her primary care doctor to obtain [facility] record entirely to address abnormalities seen [...] HCV RNA (PCR) IU/mL N/A, HCVRNA PCR cops log10 N/A, Hepatitis C Interp Exam Physical [...] function. Discharge Plan Discharge Plan Patient Disposition: Jail Facility Activity: No Activity Restriction Diet: Regular [...] TID PRN (Reason: Pain) Other Ambulatory Orders: [facility] [employer] polysom procedure (Routine) Timeframe: [id number] Location: Determined by Patient Ordered By: Selvin Bey Follow Up: [facility] Central Scheduling [Outside] (Centralized scheduling will [...] signed by Selvin Bey MD> 04/16/23 1203 [facility] Work Phone: 1(160) 115-878711-09-2023 Progress note Author Laith Carlson [facility] April 16, 2023 9:18am Note Date/Time April 16, 2023 9 :15am [facility] [address] [place] [address] Infect. Disease Progress Note Signed Patient: Albania Cesar MR#: [id number] : 1955 Acct:[id number] Age/Sex: 67 / F Adm Date: 3 Loc: Room: [address] [place] [address] Type: ADM IN Attending Dr: Selvin Bey [...] Tablet) 650 mg PO Q8H [facility] Stop: 04/10/24 10:14 Last Admin: 04/16/23 03:21 Dose: 650 mg Celecoxib (Celecoxib 100 Mg Capsule) 100 mg PO BID [facility] Stop: 04/13/24 20:59 Last Admin: 04/16/23 08:04 Dose: 100 mg Enoxaparin Sodium (Enoxaparin 40 Mg/0.4 Ml Syringe) 40 mg SUBCUT Q12HR.10A.10P [facility] Stop: 04/12/24 21:59 Last Admin: 04/15/23 10:23 Dose: 40 mg Hydromorphone HCl (Hydromorphone 1 Mg/Ml Syringe) 0.5 mg IV-PUSH DAILY PRN PRN Reason: Wound dressing Last Admin: 04/15/23 11:38 Dose: 0.5 mg Ertapenem (Invanz) 1 gm in 100 mls @ 200 mls/hr IV Q24H [facility] Last Infusion: 04/15/23 10:53 Dose: Infused Ondansetron [...] Tablet.Dr) 40 mg PO DAILY [facility] Stop: 04/10/24 10:29 Last Admin: 04/16/23 08:04 [...] She is post to go to the [facility] today. Planning 2 to 3 weeks of [place] ertapenem. Aggressive wound care to be continued. Documented By: Laith Carlson MD 04/16/23912 Signed By: <Electronically signed by MD Laith Carlson> 04/16/23917 [facility] Work Phone: 1(227) 317-869511-08-2023 Progress note Author Selvin Bey [facility] April 15, 2023 12:09pm Note Date/Time April 15, 2023 1 2:09pm [facility] [address] [place] [address] Hospitalist Progress Note Signed Patient: Albania Cesar MR#: [id number] : 1955 Acct:[id number] Age/Sex: 67 / F Adm Date: 3 Loc: Room: [address] [place] [address] Type: ADM IN Attending Dr: Selvin Bey MD Copies to: ~ Date of Service: 04/15/2023 Subjective Subjective Narrative: Ms. Cesar is sitting in her chair when I enter the room. She says she is feeling better today. She is still experiencing pain in her lower extremities bilaterally. She says the Dilaudid has helped with pain. She tells me she is going to [facility] custodial facility on discharge. She is rating her [...] The patient will be going to a custodial facility to facilitate identified infusion and wound [...] PRN, oxycodone 5 mg Q6H PRN, Tylenol tnvlxy-whe-xbwvt. -Continue Celebrex 100 mg twice daily. Patient [...] consider gastric bypass Patient is moving to [facility] on discharge. IV antibiotics continued to maximize benefit of going to this facility. PICC line ordered and antibiotics switched to ertapenem. Documented By: Selvin Bey MD 04/15/23 1005 Signed By: <Electronically signed by Selvin Bey MD> 04/15/23 1209 [facility] Work Phone: 1([phone]) 340-319011-08-2023 Hospital Discharge instructions Additional Instructions SNF to [...] 90% -Care to be managed by SNF providers.[facility] Work Phone: 1([phone]) 654-410511-08-2023 Progress note Author Laith Carlson [facility] April 15, 2023 9:25am Note Date/Time April 15, 2023 9 :16am [facility] [address] [place] [address] Infect. Disease Progress Note Signed Patient: Albania Cesar MR#: [id number] : 1955 Acct:[id number] Age/Sex: 67 / F Adm Date: 3 Loc: Room: [address] [place] [address] Type: ADM IN Attending Dr: Selvin Bey [...] Tablet) 650 mg PO Q8H [facility] Stop: 04/10/24 10:14 Last Admin: 04/15/23 03:39 Dose: 650 mg Celecoxib (Celecoxib 100 Mg Capsule) 100 mg PO BID [facility] Stop: 04/13/24 20:59 Last Admin: 04/15/23 08:24 Dose: 100 mg Enoxaparin Sodium (Enoxaparin 40 Mg/0.4 Ml Syringe) 40 mg SUBCUT Q12HR.10A.10P [facility] Stop: 04/12/24 21:59 Last Admin: 04/14/23 21:19 Dose: 40 mg Hydromorphone HCl (Hydromorphone 1 Mg/Ml Syringe) 0.5 mg IV-PUSH DAILY PRN PRN Reason: Wound dressing Last Admin: 04/14/23 09:24 Dose: 0.5 mg Cefepime HCl (Maxipime) 2 gm in 50 mls @ 100 mls/hr IV Q12H [facility] Last Admin: 04/15/23 05:19 Dose: 100 mls/hr [...] Tablet.Dr) 40 mg PO DAILY [facility] Stop: 04/10/24 10:29 Last Admin: 04/15/23 08:24 Dose: 40 mg Potassium Phos/Sodium Phos (Sodium, Potassium Phosphates 1 Each Powd.Pack) 1 each PO TID.PC.HS [facility] Stop: 04/13/24 13:09 Last Admin: 04/15/23 08:24 [...] patient tells me she is going to [facility] for ongoing custodial facility care which is a significant improvement [...] <Electronically signed by MD Laith Carlson> 04/15/23924 [facility] Work Phone: 1([phone]) 173-616911-07-2023 Progress note Author Selvin Bey [facility] April 14, 2023 1:12pm Note Date/Time April 14, 2023 1 :13pm [facility] [address] [place] [address] Hospitalist Progress Note Signed Patient: Albania Cesar MR#: [id number] : 1955 Acct:[id number] Age/Sex: 67 / F Adm Date: 3 Loc: Room: [address] [place] [address] Type: ADM IN Attending Dr: Selvin Bey [...] as needed oxycodone 5 mg Q6H, Tylenol yxsevx-scw-cfdza. -Added Celebrex 100 twice daily. Hypokalemia, hypophosphatemia [...] by Selvin Bey MD> 04/14/23 [facility] Work Phone: 1([phone]) 493-117611-07-2023 Progress note Author Laith Carlson [facility] April 14, 2023 9:31am Note Date/Time April 14, 2023 9 :31am [facility] [address] [place] [address] Infect. Disease Progress Note Signed Patient: Albania Cesar MR#: [id number] : 1955 Acct:[id number] Age/Sex: 67 / F Adm Date: 3 Loc: Room: [address] [place] [address] Type: ADM IN Attending Dr: Selvin Bey [...] Tablet) 650 mg PO Q8H [facility] Stop: 04/10/24 10:14 Last Admin: 04/14/23 03:21 Dose: 650 mg Enoxaparin Sodium (Enoxaparin 40 Mg/0.4 Ml Syringe) 40 mg SUBCUT Q12HR.10A.10P [facility] Stop: 04/12/24 21:59 Last Admin: 04/14/23 00:07 Dose: 40 mg Hydromorphone HCl (Hydromorphone 1 Mg/Ml Syringe) 0.5 mg IV-PUSH DAILY PRN PRN Reason: Wound dressing Last Admin: 04/14/23 09:24 Dose: 0.5 mg Cefepime HCl (Maxipime) 2 gm in 50 mls @ 100 mls/hr IV Q12H [facility] Last Admin: 04/14/23 05:18 Dose: 100 mls/hr Vancomycin HCl 1.5 gm/ (Dextrose) 530 mls @ 353.333 mls/hr IV Q24H [facility] Stop: 04/14/24 00:59 Ondansetron HCl (Ondansetron Odt [...] Tablet.Dr) 40 mg PO DAILY [facility] Stop: 04/10/24 10:29 Last Admin: 04/14/23 08:13 [...] <Electronically signed by MD Laith Carlson> 04/14/2331 [facility] Work Phone: 1([phone]) 386-609411-06-2023 Consult note Author Laith Carlson [facility] April 13, 2023 1:05pm Note Date/Time April 13, 2023 1 :05pm [facility] [address] [place] [address] Infect. Disease Consult Note Signed Patient: Albania Cesar MR#: [id number] : 1955 Acct:[id number] Age/Sex: 67 / F Adm Date: 3 Loc: Room: [address] [place] [address] Type: ADM IN Attending Dr: Selvin Bey [...] initially for. She also did follow-up with [place] [facility] and had 2-3 veins ligated/removed. [...] negative unless noted below or in HPI [facility] Medical History (Updated 04/12/23 @ 09:39 by [...] @ 100 mls/hr IV Q12H [facility] Rx#: [id number] Vancomycin 1.75 gm In Dextrose 500 / 500 5 % in Water 500 ml @ 285.714 mls/hr IV Q24H [facility] Rx#:[id number] Oral 300 / 800 250 / 250 [...] follow-up with the vein specialist down in [place] who what sounds to be did some [...] <Electronically signed by MD Laith Carlson> 04/13/23 4002 [facility] Work Phone: 1(138) 753-343711-06-2023 Progress note Author Selvin Bey [facility] April 13, 2023 12:36pm Note Date/Time April 13, 2023 1 2:36pm [facility] [address] [place] [address] Hospitalist Progress Note Signed Patient: Albania Cesar MR#: [id number] : 1955 Acct:[id number] Age/Sex: 67 / F Adm Date: 3 Loc: Room: [address] [place] [address] Type: ADM IN Attending Dr: Selvin Bey [...] oxycodone 5 mg Q6H, Tylenol and Voltaren pbhnqo-xpa-nkafo. ALFREDO-improving -BUN elevated to 43, Cr 1.21 [...] signed by Selvin Bey MD> 04/13/23 1236 [facility] Work Phone: 1(995) 230-536011-05-2023 Consult note Author Mario Mayorga [facility] April 12, 2023 1:22pm Note Date/Time April 12, 2023 9 :40am [facility] [address] [place] [address] Pulmonology Consult Note Signed Patient: Albania Cesar MR#: [id number] : 1955 Acct:[id number] Age/Sex: 67 / F Adm Date: 3 Loc: Room: [address] [place] [address] Type: ADM IN Attending Dr: Malorie Nathan [...] and had been treated with autotitratingCPAP of [id number]. Review of Systems Review of Systems Unobtainable due to mental status [facility] Medical History (Updated 04/12/23 @ 09:39 by [...] support. Documented By: Mario Mayorga MD 3 3512 Signed By: <Electronically signed by MD Mario Mayorga> 04/12/23 7763 [facility] Work Phone: 1(773) 100-262111-05-2023 Progress note Author Malorie Nathan [facility] April 12, 2023 1:05pm Note Date/Time April 12, 2023 1 :05pm [facility] [address] [place] [address] Hospitalist Progress Note Signed Patient: Albania Cesar MR#: [id number] : 1955 Acct:[id number] Age/Sex: 67 / F Adm Date: 3 Loc: Room: [address] [place] [address] Type: ADM IN Attending Dr: Maloire Nathan MD Copies to: ~ Date of [...] mg every 6 hours, Tylenol and Voltaren rscgcd-yuz-mldjx ALFREDO Kidney function improved, continue to monitor [...] <Electronically signed by Malorie Nathan MD> 04/12/23 9041 [facility] Work Phone: 1(281) 183-845411-04-2023 Progress note Author Malorie Nathan [facility] April 11, 2023 12:16pm Note Date/Time April 11, 2023 1 2:16pm [facility] [address] [place] [address] Hospitalist Progress Note Signed Patient: Albania Cesar MR#: [id number] : 1955 Acct:[id number] Age/Sex: 67 / F Adm Date: 3 Loc: Room: [address] [place] [address] Type: ADM IN Attending Dr: Malorie Nathan [...] 6 hours as needed, Tylenol and Voltaren dgawpa-nub-besgn ALFREDO -BUN elevated to 43, Cr 1.21 [...] <Electronically signed by Malorie Nathan MD> 04/11/23 [facility] Work Phone: 1([phone]) 895-186811-04-2023 Progress note Author Laith Monte [facility] April 11, 2023 8:54am Note Date/Time April 11, 2023 8 :55am [facility] [address] [place] [address] Event Note Signed Patient: Albania Cesar MR#: [id number] : 1955 Acct:[id number] Age/Sex: 67 / F Adm Date: 3 Loc: Room: [address] [place] [address] Type: ADM IN Attending Dr: Malorie Nathan [...] signed by Laith Monte DO> 04/11/23 0854 [facility] Work Phone: 1([phone]) 759-145511-03-2023 History and physical note Author Neeraj Farrell [facility] April 10, 2023 4:36pm Note Date/Time April 10, 2023 4 :36pm [facility] [address] [place] [address] Hospitalist H&P Signed Patient: Albania Cesar MR#: [id number] : 1955 Acct:[id number] Age/Sex: 67 / F Adm Date: 3 Loc: Room: [address] [place] [address] Type: ADM IN Attending Dr: Neeraj Farrell [...] and treatment. Patient is also following at [place] regarding lymphedema and appears to be getting [...] constipation, diarrhea : Denies dysuria, hematuria, polyuria. [facility] Medical History (Updated 04/10/23 @ 16:34 by Neeraj Farrell MD) Cellulitis Leg ulcer, left Lymphedema Obese Surgical History (Reviewed 04/10/23 @ 10:23 by [facility] No pertinent past surgical history Family History [...] % (Auto) 3.2 % (.) 04/10/23 10:20 [place] % (Auto) 5.0 % (.) 04/10/23 10:20 Eos % (Auto) 1.0 % (.) 04/10/23 10:20 Baso % (Auto) 0.5 % (.) 04/10/23 10:20 Nucleat RBC Rel Count 0.1 /100 WBC (0-0.5) 04/10/23 10:20 Neut # (Auto) 11.7 x10E3/uL (1.8-7.7) H 04/10/23 10:20 Lymph # (Auto) 0.4 x10E3/uL (1.00-4.8) L 04/10/23 10:20 [place] # (Auto) 0.6 x10E3/uL (0.0-0.8) 04/10/23 10:20 [...] pH 6.0 (5.0-9.0) 04/10/23 10:28 Ur Specific [place] 1.034 (1.001-1.030) H 04/10/23 10:28 Urine Protein [...] <Electronically signed by Neeraj Farrell MD> 04/10/23 1634 [facility] Work Phone: 1(435) 572-721509-19-2023 Evaluation note* Encounter Date Diagnosis Assessment Notes [...] Consider returning to ID or lymphedema clinic [facility] Other 08-29-2023 Progress note Author Albino Saxena [facility] February 03, 2023 10:36am Note Date/Time February 03, 2023 10 :36am [facility] [address] [place] [address] Wound Center Provider Note Signed Patient: Albania Cesar MR#: [id number] : 1955 Acct:[id number] Age/Sex: 67 / F Copies to: MD [...] Intensity: 0 Wound/Ulcer History Mode of Arrival/ Registered Nurse Obstetrics: Personal vehicle Assistive Device Used Today: Cane [...] Skin/Breast: Reports wounds Neurologic Neurologic: Denies syncope [facility] Medical History (Updated 02/03/23 @ 10:32 by [...] Left Lower Leg: Bed Appearance: Beefy Red, [place] and Yellow Percent of Wound Bed Granulated/Red: 50 Percent of Devitalized: 50 Length (cm): 23.0 Width (cm): 55.0 Depth (cm): 0.1 CM Sq: 1265.000 Surrounding Tissue Appearance: Bright Red, Macerated and Edematous Surrounding Tissue Temp: Warm Drainage Amount: Copious Drainage Description: Serous and Yellow Drainage Odor: No Odor Right Lower Medial Leg: Bed Appearance: Beefy Red, [place] and Yellow Percent of Wound Bed Granulated/Red: 50 Percent of Devitalized: 50 Length (cm): 13.5 Width (cm): 1.0 Depth (cm): 0.1 CM Sq: 13.500 Surrounding Tissue Appearance: [place], Macerated and Edematous Surrounding Tissue Temp: Warm Drainage Amount: Moderate Drainage Description: Serosanguineous Drainage Odor: No Odor Right Lower Lateral Leg: Bed Appearance: [place] and Yellow Percent of Wound Bed Granulated/Red: [...] signed by MD Albino Saxena> 02/03/23 1036 [facility] Work Phone: 1(302) 229-630508-15-2023 Evaluation note* Encounter Date Diagnosis Assessment Notes Treatment Notes Treatment Clinical Notes Jan, Venous insufficiency (chronic) (peripheral) (ICD-10 - I87.2) [facility] Other 08-14-2023 Evaluation note* Encounter Date Diagnosis Assessment Notes Treatment Notes Treatment Clinical Notes Jan, Venous insufficiency (chronic) (peripheral) (ICD-10 - I87.2) Followed by vascular surgery, scheduled for procedure upcoming. We will f/u with [employer] to help get her SCDs that she was fitted for as this likely would help control swelling. Jan, Breast cancer screening (ICD-10 - Z12.39) Jan, CHUCKIE (obstructive sleep apnea) (ICD-10 - G47.33) Rx written for new mask and supplies. Jan, Need for pneumococca l 20-valent conjugate vaccination (ICD-10 - Z23) [facility] Other 08-01-2023 Evaluation note* Encounter Date Diagnosis Assessment Notes Treatment Notes Treatment Clinical Notes Jan, Venous insufficiency (chronic) (peripheral) (ICD-10 - I87.2) [facility] Other 07-24-2023 Evaluation note* Encounter Date Diagnosis [...] leg with unspecified severity (ICD-10 - L97.929) [facility] Other 12-30-2021 Evaluation note* Encounter Date Diagnosis [...] instructions given in writting by [facility] document [facility] Other Evaluation noteNo assessment information available [facility] Work Phone: Evaluation note* Diagnosis Onset Date Resolution Status Elevated blood pressure reading acute Inflammation chronic Leg ulcer, left chronic Lymphedema chronic Obese chronic Wound pain chronic [facility] Work Phone: Evaluation note* Diagnosis Onset Date Resolution Status Elevated blood pressure reading acute Hyperkeratosis chronic Hyperpigmentation chronic Inflammation chronic Leg ulcer, left chronic Lymphedema chronic Nonadherence to medical treatment chronic Obese chronic Wound pain chronic [facility] Work Phone: Evaluation noteNo InformationNorth [employer] Other Evaluation note* Diagnosis Onset Date Resolution Status Elevated blood pressure reading acute Hyperkeratosis chronic Hyperpigmentation chronic Inflammation chronic Leg ulcer, left chronic Lymphedema chronic Nonadherence to medical treatment chronic Obese chronic Wound pain chronic Cellulitis of left leg acute Ulcer of right leg acute Leg ulcer, left chronic Lymphedema chronic [facility] Work Phone: Evaluation note* Diagnosis Onset Date Resolution Status Cellulitis of left leg acute Ulcer of right leg acute Leg ulcer, left chronic Lymphedema chronic [facility] Work Phone: Evaluation note* Diagnosis Onset Date Resolution Status Cellulitis of left leg acute Ulcer of right leg acute Leg ulcer, left chronic Lymphedema chronic ALFREDO (acute kidney injury) ac point [place] Bilateral leg pain acute Bilateral lower leg cellulitis acute Cellulitis acute Hyponatremia acute Metabolic acidosis acute Ulcer of left lower leg acut e Ulcer of right leg acute UTI (urinary tract infection) acute Inflammation chronic Lymphedema chronic [facility] Work Phone: Evaluation note* Diagnosis Onset Date Resolution Status Cellulitis of left leg acute Ulcer of right leg acute Leg ulcer, left chronic Lymphedema chronic Acute respiratory acidosis a cute ALFREDO (acute kidney injury) ac point [place] Bilateral lower leg cellulitis acute Cellulitis acute CHF (congestive heart failure) acute Elevated liver enzymes acute Hypokalemia acute Hyponatremia acute Hypophosphatemia acute Hypoxia acute Infected wound acute Metabolic acidosis acute Superficial vein thrombosis acute Ulcer of left lower leg acut e Ulcer of right leg acute Inflammation chronic Lymphedema chronic Obese chronic [facility] Work Phone: Hisznha general Narrative - Reported* Type Description Date Medical History CHUCKIE Medical History varicose veins Surgical History No know Surgical history Hospitalization History elevated BS, cellulitis [facility] Other Hisearj general Narrative - Reported* Type Description Date Medical History CHUCKIE Medical History varicose veins Medical History cellulitis Medical History lymphedema Surgical History No know Surgical history Hospitalization History elevated BS, cellulitis [facility] Other Hisaaow general Narrative - Reported* Type Description Date Medical History CHUCKIE Medical History varicose veins Medical History cellulitis Medical History lymphedema Surgical History No Surgical history information Hospitalization History see above Hospitalization History BLE--cellulitis, lymphed ace [facility] Other Hospital Discharge instructions Additional Instructions Have IV antibiotics twice daily at an infusion center for 1 week.[facility] Work Phone: Hospital Discharge instructions Additional [...] the antibiotics you are currently on as directed.[facility] Work Phone: Hospital Discharge instructions Additional Instructions Follow-up with your primary care doctor Return to ED if develop worsening symptoms or [facility] Work Phone: Summary Purpose Family History [...] content) DATE CREATED AUTHOR 12/02/2017 [facility] DATE CREATED AUTHOR AUTHOR'S ORGANIZ ATION 07/15/2023 [facility] REASON FOR VISIT (unrecogniz ed section and content) #12 JACKSON MALIBU, LOSS OF TAS TE, CONGESTION, FEVER, COUGHFR-ERNo InformationREFILLNo InformationEST PCPNo Informationchancre sore apptDISCUSS [id number] up from rehab needs to go over [...] Primary Care Provider Active Sarah Davey , [facility] Emergency Provider Active Neeraj Farrell MD Admit Provider, Attending Provider Active Team Status: Inactive Member Role Status Dates Abimbola Bran , DO Primary Care Provider Active Sarah Davey [facility] Emergency Provider Active Neeraj Farrell MD Admit [...] BE BASED ON THE PRIMARY CLINICAL RECORDS. [facility]. provides no warranty or guarantee of the accuracy or completeness of information in this document.
== END 2023-11-09 16:15 | disposition home or self-care (01) ==
LOC: WC 16:14
PROVIDERS: PCP Radiology Diagnostic Radiology; Visit Provider Physician Assistant
DX: I87.312 Chronic venous hypertension (idiopathic) with ulcer of left lower extremity (principal); L97.822 Non-pressure chronic ulcer of other part of left lower leg with fat layer exposed; I87.311 Chronic venous hypertension (idiopathic) with ulcer of right lower extremity; L97.812 Non-pressure chronic ulcer of other part of right lower leg with fat layer exposed
CPT/HCPCS: G0463

== ENCOUNTER 2023-11-17 12:53 | Outpatient (OUT) | payer MEDICARE, OTHER, SELFPAY ==
--- NOTE | 2023-11-17 12:56 | VEIN_ITS ---
[facility] [place] [id number] Patient Name: ALBANIA CESAR MRN: [id number] date: 1955 Sex: F Assigned Patient Location: Current Patient Location: Accession/Order Number: [id number] Exam Date: 11/17/2023 12:56 Report Date: 11/17/2023 15:15 At the request of: CHAGO GALVAN Procedure: VC SEGMENTAL PRESSURES EXAM: VC SEGMENTAL PRESSURES HISTORY: R09.89 COMPARISON: None. FINDINGS: Segmental pressures presented as follows (right, left) in mmHg. Brachial: 178, 165 Upper thigh: Not performed Lower thigh: 191, 191 Calf: 156, 144 DPA: 175, 148 [employer]NAGER: 176, 146 1st Toe: 116, 123 MEGAN: 0.99, 0.83 TBI: 0.65, 0.69 The ABIs are normal right, mild left arterial disease The TBI's are mild to moderate bilateral arterial disease PVR waveforms: Right leg: Thigh: Mild peripheral arterial disease Above knee: Normal Below knee: Mild peripheral arterial disease Right ankle: Mild peripheral arterial disease Left leg: Thigh: Mild peripheral arterial disease Above knee: Normal Below knee: Mild peripheral arterial disease Right ankle: Mild peripheral arterial disease VEIN/VC SEGMENTAL PRESSURES IMPRESSION: MEGAN suggests mild left arterial disease PVR waveforms suggest mild bilateral peripheral arterial disease Electronically authenticated by: JOYA SCHRADER Date: 11/17/2023 15:15
== END 2023-11-17 12:54 | disposition home or self-care (01) ==
LOC: VC 12:54
PROVIDERS: PCP Radiology Diagnostic Radiology; Visit Provider Physician Assistant
DX: R09.89 Other specified symptoms and signs involving the circulatory and respiratory systems (principal)
CPT/HCPCS: 93923

== ENCOUNTER 2023-11-24 13:50 | Outpatient (OUT) | payer MEDICARE, OTHER, SELFPAY | END 2023-11-24 13:51 | disposition home or self-care (01) | LOC: WC 13:50 | PROVIDERS: PCP Radiology Diagnostic Radiology; Visit Provider Podiatrist Foot & Ankle Surgery | DX: I87.312 Chronic venous hypertension (idiopathic) with ulcer of left lower extremity (principal); L97.822 Non-pressure chronic ulcer of other part of left lower leg with fat layer exposed | CPT/HCPCS: G0463 ==

== ENCOUNTER 2023-12-14 13:53 | Outpatient (RCR) | payer MEDICARE, OTHER, SELFPAY | END 2024-01-09 13:28 | disposition home or self-care (01) | LOC: OT 13:53 | PROVIDERS: PCP Radiology Diagnostic Radiology; Visit Provider Physician Assistant | DX: I89.0 Lymphedema, not elsewhere classified (principal); L97.929 Non-pressure chronic ulcer of unspecified part of left lower leg with unspecified severity; L97.919 Non-pressure chronic ulcer of unspecified part of right lower leg with unspecified severity | CPT/HCPCS: 97140; 97165; 97535 ==